=== PATIENT | female | born 1945 | race Caucasian/White ===

== ENCOUNTER 2017-03-24 09:14 | Observation (INO) | payer MEDICARE, SELFPAY ==
[2017-03-24] VITALS (9 sets, daily range): BP systolic 132–171; BP diastolic 48–85; PULSE 64–80; RESP 16–20; TEMP 36.3–36.9; O2SAT 96–100; BMI 30.9; BMI 31.2
--- NOTE | 2017-03-24 09:33 | RAD_ITS ---
STUDY: X-RAY - LUMBAR SPINE REASON FOR EXAM: Female, 71 years old. Increasing back and right leg pain TECHNIQUE: 4 view(s) of the lumbar spine were obtained. COMPARISON: None FINDINGS: Normal lumbar lordosis. There is no substantial scoliosis. There is a normal alignment of the vertebrae. There is multilevel endplate spondylosis of the lumbar vertebrae. There is multi-level degenerative disc disease with multi-level disc space narrowing. Extensive posterior fusion from the level of L3-S1 with significant facet degenerative change. No evidence of hardware failure or loosening. The soft tissue structures are unremarkable. RAD/Lumbar Spine 2 or 3 Views IMPRESSION: Extensive degenerative changes with postsurgical changes Electronically Signed: Javier Cordero DO at 11:34 EST Tel , Service support ,
--- NOTE | 2017-03-24 09:33 | RAD_ITS ---
STUDY: X-RAY - RIGHT FEMUR REASON FOR STUDY: Female, 71 years old. Right leg pain after fall TECHNIQUE: Radiological exam, femur, minimum 2 views COMPARISON: None. FINDINGS: Status post right hip arthroplasty without evidence of hardware failure or loosening. Right knee arthroplasty as well. No acute fracture or dislocation. No significant soft tissue swelling RAD/Femur Min 2 Views IMPRESSION: No acute findings Electronically Signed: Javier Cordero DO at 11:36 EST Tel , Service support ,
[2017-03-24] MEDS: HYDROmorphone 1 MG/ML Syringe IM (09:51)
[2017-03-24] MEDS: Ondansetron ODT 4 MG Tablet PO (09:51)
--- NOTE | 2017-03-24 10:17 | ED.VISSUMM ---
- ER Visit Summary Date of Service: 03/24/17 Chief Complaint: Back and right leg pain History of Present Illness: The patient is a [address] Daigle, Dr. Queen, and Dr. Lerma. She reports that she fell approximately 3 weeks ago. Since that time she has had low back and right thigh pain. She reports that the pain became much worse 2 days ago and she is essentially unable to walk at this time. She describes it as a burning pain in her leg that is 10 out of 10 severity. Is worsened by walking or standing. She is taking Percocet and ice without relief. Patient reports that her low back pain is 8 out of 10 severity. It radiates down the front of her right leg to mid thigh. She denies any numbness, tingling, weakness. No problems with her bowels or her bladder. No groin numbness. Patient does have a history of bilateral total knee arthroplasty, bilateral total hip arthroplasty, and a lumbar fusion in 2014 at [facility]. She reports that she had been getting injections in her back by Dr. Lerma and saw the nurse practitioner yesterday who told her that they are waiting on insurance to improve more injections. Physical Examination: Vitals: Stable. Afebrile. General: Well-nourished and well-developed. Head: Normocephalic atraumatic. Neck: Supple, no lymphadenopathy. No JVD. Nontender. Cardiovascular: Regular rate and rhythm. No murmurs. Respiratory: No respiratory distress. Clear to auscultation bilaterally. Abdominal: Soft, nontender, nondistended, normal bowel sounds. No guarding, rebound, or peritoneal signs. Back: Mild tenderness palpation is diffuse over the lumbar spine. This is in the paraspinous muscular and the vertebrae. She has a negative straight leg raise bilaterally. She has 5 out of 5 dorsiflexion, plantarflexion, extensor hallucis longus bilaterally. Normal sensation light touch throughout. Extremities: Moderate tenderness palpation over the midshaft of her right thigh. She has a 2+ dorsalis pedis pulse. Skin: Normal color, no rash. Neurologic: Alert and oriented ?3. Cranial nerves II through XII are intact. Normal strength and sensation. Psych: Normal affect. Test Results: Right femur x-ray shows no acute disease and the hardware is intact both of her hip and knee. LS spine x-ray shows is extensive degenerative changes with postsurgical changes and no acute disease. Emergency Department Course and Treatment: Patient was given a dose of Dilaudid IM and Zofran p.o. An OARRS report was obtained which show she is only had 2 prescriptions for opiates in the past year and those have both been associated with this injury. Patient is not even able to sit up in bed let alone ambulate. Treatment Plan: I do not think that it is safe for the patient to go home at this time. She is not able to ambulate. She was discussed with Dr. Tiwari and will be admitted for further evaluation and treatment. Disposition: Admitted in improved condition. Impression: 1. Low back pain, actable. 2. Right thigh pain. 3. Inability to ambulate. This note was generated with [employer] dictation software. It may contain incorrect words, spelling, and punctuation that were not noted in review of the chart prior to signing ED Disposition - Plan for ED Patient: Chief Complaint: Lower Extremity Injury
--- NOTE | 2017-03-24 10:20 | ED.DCSUM_ITS ---
- ER Visit Summary Date of Service: 03/24/17 Chief Complaint: Back and right leg pain History of Present Illness: The patient is a [address] Daigle, Dr. Queen, and Dr. Lerma. She reports that she fell approximately 3 weeks ago. Since that time she has had low back and right thigh pain. She reports that the pain became much worse 2 days ago and she is essentially unable to walk at this time. She describes it as a burning pain in her leg that is 10 out of 10 severity. Is worsened by walking or standing. She is taking Percocet and ice without relief. Patient reports that her low back pain is 8 out of 10 severity. It radiates down the front of her right leg to mid thigh. She denies any numbness, tingling , weakness. No problems with her bowels or her bladder. No groin numbness. Patient does have a history of bilateral total knee arthroplasty, bilateral total hip arthroplasty, and a lumbar fusion in 2014 at [facility]. She reports that she had been getting injections in her back by Dr. Lerma and saw the nurse practitioner yesterday who told her that they are waiting on insurance to improve more injections. Physical Examination: Vitals: Stable. Afebrile. General: Well-nourished and well-developed. Head: Normocephalic atraumatic. Neck: Supple, no lymphadenopathy. No JVD. Nontender. Cardiovascular: Regular rate and rhythm. No murmurs. Respiratory: No respiratory distress. Clear to auscultation bilaterally. Abdominal: Soft, nontender, nondistended, normal bowel sounds. No guarding, rebound, or peritoneal signs. Back: Mild tenderness palpation is diffuse over the lumbar spine. This is in the paraspinous muscular and the vertebrae. She has a negative straight leg raise bilaterally. She has 5 out of 5 dorsiflexion, plantarflexion, extensor hallucis longus bilaterally. Normal sensation light touch throughout. Extremities: Moderate tenderness palpation over the midshaft of her right thigh. She has a 2+ dorsalis pedis pulse. Skin: Normal color, no rash. Neurologic: Alert and oriented ?3. Cranial nerves II through XII are intact. Normal strength and sensation. Psych: Normal affect. Test Results: Right femur x-ray shows no acute disease and the hardware is intact both of her hip and knee. LS spine x-ray shows is extensive degenerative changes with postsurgical changes and no acute disease. Emergency Department Course and Treatment: Patient was given a dose of Dilaudid IM and Zofran p.o. An OARRS report was obtained which show she is only had 2 prescriptions for opiates in the past year and those have both been associated with this injury. Patient is not even able to sit up in bed let alone ambulate. Treatment Plan: I do not think that it is safe for the patient to go home at this time. She is not able to ambulate. She was discussed with Dr. Tiwari and will be admitted for further evaluation and treatment. Disposition: Admitted in improved condition. Impression: 1. Low back pain, actable. 2. Right thigh pain. 3. Inability to ambulate. This note was generated with tracx dictation software. It may contain incorrect words, spelling, and punctuation that were not noted in review of the chart prior to signing ED Disposition - Plan for ED Patient: Chief Complaint: Lower Extremity Injury
--- NOTE | 2017-03-24 11:54 | ED.RN ---
pt states pain is again increasing. states a burning sensation
--- NOTE | 2017-03-24 12:12 | PCM.HP.STD ---
Problem List (1) COPD (chronic obstructive pulmonary disease) Status: Chronic Qualifiers: COPD type: unspecified COPD Qualified Code(s): J44.9 - Chronic obstructive pulmonary disease, unspecified (2) HTN (hypertension) Status: Chronic Qualifiers: Hypertension type: essential hypertension Qualified Code(s): I10 - Essential (primary) hypertension (3) Asthma Status: Chronic Qualifiers: Asthma severity: unspecified severity Asthma persistence: unspecified Asthma complication type: uncomplicated Qualified Code(s): J45.909 - Unspecified asthma, uncomplicated (4) Chronic back pain Status: Chronic Qualifiers: Back pain location: back pain in unspecified location Back pain laterality: unspecified Qualified Code(s): M54.9 - Dorsalgia, unspecified; G89.29 - Other chronic pain (5) Acute back pain Status: Acute Qualifiers: Back pain location: back pain in unspecified location Back pain laterality: unspecified Qualified Code(s): M54.9 - Dorsalgia, unspecified History of Present Illness Date of Admission: 03/24/17 Chief Complaint: Intractable back pain The patient is a 71 y/o F w/ PMHx: HTN, Asthma/COPD, Obesity, OA, Chronic back pain s/p lumbar fusion who presents to the [facility] ED on 03/24/17 with history of ongoing intractable back pain whic started ~ 3 weeks prior at which point she had fallen with onset lumbar pain increased above baseline with ongoing discomfort to the anterior thigh, right hip and groin region. The pain continued and eventually she noted inability to ambulate. She was evaluated per her pain management physician with attempts to obtain prior authorization for injection; however, the discomfort continued and was intractable prompting eventual ED presentation. In the ED work-up included unremarkable plain film femur, lumbar plain film with extensive degenerative changes with postsurgical changes. In the ED patient administered morphine, dilaudid and zofran. Past Medical History Past Medical History (Chronic Problems): Chronic Problems COPD (chronic obstructive pulmonary disease) (Chronic) HTN (hypertension) (Chronic) Asthma (Chronic) Chronic back pain (Chronic) Allergies No Known Allergies Allergy (Verified 01/14/16 14:26) Home Medications: Ambulatory Orders Medication Instructions Recorded Fluticasone/Salmeterol [Advair 1 puff INHALATION DAILY 09/28/15 250/50 Mcg Diskus] Lisinopril/Hydrochlorothiazide 1 tablet PO DAILY 01/14/16 [Zestoretic 10/12.5 Tablet] Acetaminophen [Tylenol Tablet] 650 mg PO Q6 PRN 03/24/17 Oxycodone HCl/Acetaminophen 1 tablet PO Q4H PRN PRN 03/24/17 [Percocet 5/325] Surgical History: - - Hysterectomy, right knee arthroscopic surgery, left shoulder rotator cuff tear intervention, hernia repair, left total knee replacement, left knee arthroscopic surgery, right knee replacement, back surgery, left total hip arthroplasty, right total hip arthroplasty, appendectomy. 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 Denies: Chills, Fever, Weight Change HEENT: Denies: Head Aches, Sinus Congestion, Sinus Drainage Cardiovascular: Denies: Chest Pain, Palpitations Respiratory: Denies: Cough, Shortness of breath at rest, Sputum production Gastrointestinal: Denies: Abdominal Pain, Nausea, Vomiting Genitourinary: Denies: Dysuria Musculoskeletal: Reports: Back Pain, Leg Pain, Muscle pain. Denies: Joint Pain, Joint Tenderness Skin: Denies: Rash, Wounds Neurological: Denies: Numbness, Tingling, Focal weakness Psychiatric: Denies: Anxiety, Depression, Homicidal Ideations, Suicidal Ideations Hematologic/ Lymphatic: Denies: Easy Bruising, Easy Bleeding VTE Information - Inpt Only VTE Present on Admission: No VTE Mechan Device Prophylaxis: SCD's VTE Pharm Prophylaxis ordered?: Yes Patient Problems: Active and Suspected Problems Acute back pain (Acute) Subjective: Laying in the bed, uncomfortable appearing, worse with any attempted RLE movement. Objective: Physical Examination: General: awake, alert, oriented x 3 and cooperative, seated upright in bed, uncomfortable appearing, worse with any attempted movement of the right lower extremity. Skin: normal color, turgor, no icterus, cyanosis. HEENT: AT/NC, EOMI, PERRLA, mildly dry MM, no carotid bruits or JVD noted. Lungs: CTA bilaterally, moderate effort, moderate decrease BL bases, no rales, ronchi or wheezing. Heart: Regular rate and rhythm; no gallop, rub audible. Abdomen: soft, obese, NTTP, ND, normal BS, no HSM. Extremities: no cyanosis, clubbing, discomfort w/ RLE attempted movement including flexion, extension, pain w/ palpation. Neurological: patient awake, alert, oriented x 3; cognitive function intact; pupils equally reactive to light and accomodation; cranial nerves II-XII grossly normal, moving all 4 extremities but severely limited RLE secondary to severity of pain elicited, strength accordingly severely globally decreased, notes burning sensation R upper extremity. Psychiatric: affect appears fatigued, no acute evidence of depressive or anxiety feelings. - Physical Exam Vital Signs Temp Pulse Resp BP Pulse Ox 98.2 F 68 18 136/58 H 99 03/24/17 09:14 03/24/17 11:54 03/24/17 11:54 03/24/17 11:54 03/24/17 11:54 Oxygen Delivery Method Room Air Weight: 175 lb Body Mass Index (BMI) 30.9 Assessment/Plan Active and Suspected Problems Acute back pain (Acute) The patient is a 71 y/o F w/ PMHx: HTN, Asthma/COPD, Obesity, OA, Chronic back pain s/p lumbar fusion who presents to the [facility] ED on 03/24/17 with history of ongoing intractable back pain whic started ~ 3 weeks prior at which point she had fallen with onset lumbar pain increased above baseline with ongoing discomfort to the anterior thigh, right hip and groin region. (1) Acute Intractable Lumbar Back Pain w/ Radiculopathy: Plain films in the ED w/ degenerative findings only. Will admit to MS, maintain on fall precautions, frequent positioning, po/IV pain regimen, IV lower dose scheduled toradol, low dose flexeril, prednisone burst therapy, low dose gabapentin, anti-emetics, bowel regimen. Will consult PT and OT for evaluation. Will consult her pain management physician for patient evaluation and possible injection. If no improvement with noted interventions may consider consultation with Orthopedic surgery to assure no need for further more aggressive imaging. (2) Chronic COPD/Asthma: No tobacco use history. Maintain on ATC duonebs, PRN albuterol, HOB, IS parameters. (3) Hypertension: Continue home regimen including lisinopril, hydrochlorothiazide, PRN hydralazine. (4) Obesity: Weight loss and lifestyle changes encouraged. (5) Chronic back pain s/p lumbar fusion: Follows outpatient with pain management, Dr. Lerma for routine injections. (6) DVT prophylaxis: SCDs, lovenox with AM hold for possible infection ability. Code Visit OBSV E&M: [id number] Initial observation care L3
--- NOTE | 2017-03-24 12:20 | NURSING ---
DR ROSE FOR DR BUCK
--- NOTE | 2017-03-24 12:36 | HP.PCM_ITS ---
Problem List (1) COPD (chronic obstructive pulmonary disease) Status: Chronic Qualifiers: COPD type: unspecified COPD Qualified Code(s): J44.9 - Chronic obstructive pulmonary disease, unspecified (2) HTN (hypertension) Status: Chronic Qualifiers: Hypertension type: essential hypertension Qualified Code(s): I10 - Essential (primary) hypertension (3) Asthma Status: Chronic Qualifiers: Asthma severity: unspecified severity Asthma persistence: unspecified Asthma complication type: uncomplicated Qualified Code(s): J45.909 - Unspecified asthma, uncomplicated (4) Chronic back pain Status: Chronic Qualifiers: Back pain location: back pain in unspecified location Back pain laterality : unspecified Qualified Code(s): M54.9 - Dorsalgia, unspecified; G89.29 - Other chronic pain (5) Acute back pain Status: Acute Qualifiers: Back pain location: back pain in unspecified location Back pain laterality : unspecified Qualified Code(s): M54.9 - Dorsalgia, unspecified History of Present Illness Date of Admission: 03/24/17 Chief Complaint: Intractable back pain The patient is a 71 y/o F w/ PMHx: HTN, Asthma/COPD, Obesity, OA, Chronic back pain s/p lumbar fusion who presents to the [facility] ED on 03/24/17 with history of ongoing intractable back pain whic started ~ 3 weeks prior at which point she had fallen with onset lumbar pain increased above baseline with ongoing discomfort to the anterior thigh, right hip and groin region. The pain continued and eventually she noted inability to ambulate. She was evaluated per her pain management physician with attempts to obtain prior authorization for injection; however, the discomfort continued and was intractable prompting eventual ED presentation. In the ED work-up included unremarkable plain film femur, lumbar plain film with extensive degenerative changes with postsurgical changes. In the ED patient administered morphine, dilaudid and zofran. Past Medical History Past Medical History (Chronic Problems): Chronic Problems COPD (chronic obstructive pulmonary disease) (Chronic) HTN (hypertension) (Chronic) Asthma (Chronic) Chronic back pain (Chronic) Allergies No Known Allergies Allergy (Verified 01/14/16 14:26) Home Medications: Ambulatory Orders Medication Instructions Recorded Fluticasone/Salmeterol [Advair 1 puff INHALATION DAILY 09/28/15 250/50 Mcg Diskus] Lisinopril/Hydrochlorothiazide 1 tablet PO DAILY 01/14/16 [Zestoretic 10/12.5 Tablet] Acetaminophen [Tylenol Tablet] 650 mg PO Q6 PRN 03/24/17 Oxycodone HCl/Acetaminophen 1 tablet PO Q4H PRN PRN 03/24/17 [Percocet 5/325] Surgical History: - - Hysterectomy, right knee arthroscopic surgery, left shoulder rotator cuff tear intervention, hernia repair, left total knee replacement, left knee arthroscopic surgery, right knee replacement, back surgery, left total hip arthroplasty, right total hip arthroplasty, appendectomy. 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 Denies: Chills, Fever, Weight Change HEENT: Denies: Head Aches, Sinus Congestion, Sinus Drainage Cardiovascular: Denies: Chest Pain, Palpitations Respiratory: Denies: Cough, Shortness of breath at rest, Sputum production Gastrointestinal: Denies: Abdominal Pain, Nausea, Vomiting Genitourinary: Denies: Dysuria Musculoskeletal: Reports: Back Pain, Leg Pain, Muscle pain. Denies: Joint Pain , Joint Tenderness Skin: Denies: Rash, Wounds Neurological: Denies: Numbness, Tingling, Focal weakness Psychiatric: Denies: Anxiety, Depression, Homicidal Ideations, Suicidal Ideations Hematologic/ Lymphatic: Denies: Easy Bruising, Easy Bleeding VTE Information - Inpt Only VTE Present on Admission: No VTE Mechan Device Prophylaxis: SCD's VTE Pharm Prophylaxis ordered?: Yes Patient Problems: Active and Suspected Problems Acute back pain (Acute) Subjective: Laying in the bed, uncomfortable appearing, worse with any attempted RLE movement. Objective: Physical Examination: General: awake, alert, oriented x 3 and cooperative, seated upright in bed, uncomfortable appearing, worse with any attempted movement of the right lower extremity. Skin: normal color, turgor, no icterus, cyanosis. HEENT: AT/NC, EOMI, PERRLA, mildly dry MM, no carotid bruits or JVD noted. Lungs: CTA bilaterally, moderate effort, moderate decrease BL bases, no rales, ronchi or wheezing. Heart: Regular rate and rhythm; no gallop, rub audible. Abdomen: soft, obese, NTTP, ND, normal BS, no HSM. Extremities: no cyanosis, clubbing, discomfort w/ RLE attempted movement including flexion, extension, pain w/ palpation. Neurological: patient awake, alert, oriented x 3; cognitive function intact; pupils equally reactive to light and accomodation; cranial nerves II-XII grossly normal, moving all 4 extremities but severely limited RLE secondary to severity of pain elicited, strength accordingly severely globally decreased, notes burning sensation R upper extremity. Psychiatric: affect appears fatigued, no acute evidence of depressive or anxiety feelings. - Physical Exam Vital Signs Temp Pulse Resp BP Pulse Ox 98.2 F 68 18 136/58 H 99 03/24/17 09:14 03/24/17 11:54 03/24/17 11:54 03/24/17 11:54 03/24/17 11:54 Oxygen Delivery Method Room Air Weight: 175 lb Body Mass Index (BMI) 30.9 Assessment/Plan Active and Suspected Problems Acute back pain (Acute) The patient is a 71 y/o F w/ PMHx: HTN, Asthma/COPD, Obesity, OA, Chronic back pain s/p lumbar fusion who presents to the [facility] ED on 03/24/17 with history of ongoing intractable back pain whic started ~ 3 weeks prior at which point she had fallen with onset lumbar pain increased above baseline with ongoing discomfort to the anterior thigh, right hip and groin region. (1) Acute Intractable Lumbar Back Pain w/ Radiculopathy: Plain films in the ED w / degenerative findings only. Will admit to MS, maintain on fall precautions, frequent positioning, po/IV pain regimen, IV lower dose scheduled toradol, low dose flexeril, prednisone burst therapy, low dose gabapentin, anti-emetics, bowel regimen. Will consult PT and OT for evaluation. Will consult her pain management physician for patient evaluation and possible injection. If no improvement with noted interventions may consider consultation with Orthopedic surgery to assure no need for further more aggressive imaging. (2) Chronic COPD/Asthma: No tobacco use history. Maintain on ATC duonebs, PRN albuterol, HOB, IS parameters. (3) Hypertension: Continue home regimen including lisinopril, hydrochlorothiazide, PRN hydralazine. (4) Obesity: Weight loss and lifestyle changes encouraged. (5) Chronic back pain s/p lumbar fusion: Follows outpatient with pain management , Dr. Lerma for routine injections. (6) DVT prophylaxis: SCDs, lovenox with AM hold for possible infection ability. Code Visit OBSV E&M: [id number] Initial observation care L3
--- NOTE | 2017-03-24 12:43 | NURSING ---
317 obs intractable backpain white
[2017-03-24 14:57] LABS: Absolute Lymphocyte Count 1.23 X10^3/ul (0.83-4.51); Absolute Neutrophil Count 6.5 X10^3/uL (2.0-7.7); Basophil# 0.03 X10^3/uL; Basophil% 0.3 % (0-1); Eosinophil# 0.13 X10^3/uL; Eosinophils% 1.5 % (0-5); Hematocrit 37.9 % (37-47); Hemoglobin 12.6 g/dl (12.0-15.0); Lymphocyte # 1.23 X10^3/ul (4.0); Lymphocyte % 13.9 % (19-41); Mean Corp Hgb Conc 33.2 g/gl (32-36); Mean Corpuscular Hgb 28.9 pg (27.0-32.0); Mean Corpuscular Volume 86.9 fL (81-99); Mean Platelet Vol. 9.2 fl (6.2-12.0); Monocyte# 0.97 X10^3/uL; Monocyte% 10.9 % (0-10); Neutrophil # 6.46 X10^3/uL (2.7-7.7); Neutrophil % 72.9 % (47-70); Platelet Count 251 K/mm3 (150-450); RBC Distribution Width CV 14.8 % (11.6-14.6); RBC Distribution Width SD 46.5 fl (35.1-43.9); Red Blood Count 4.36 M/mm3 (4.2-5.4); White Blood Count 8.9 K/mm3 (4.4-11.0)
[2017-03-24 14:58] LABS: POSITIVE COUNT NO; POSITIVE DIFFERENTIAL NO; POSITIVE MORPHOLOGY NO
[2017-03-24 15:09] LABS: AST(SGOT) 33 U/L (15-37); Alanine Aminotransfer ALT/SGPT 35 U/L (13-56); Albumin, Serum 3.4 g/dL (3.2-5.0); Alkaline Phosphatase 69 U/L (45-117); Anion Gap 6 (5-15); BUN 26 mg/dL (7-18); BUN/Creat Ratio 29.1 RATIO (10-20); Calcium,Total 8.6 mg/dL (8.5-10.1); Chloride 105 mmol/L (98-107); Creatinine, Serum 0.89 mg/dL (0.55-1.02); EST Glomerular Filtration Rate 66 mL/min (>60); Est Glom Filt Rate - Afr Amer 80 mL/min (>60); Estimated Creatinine Clearance 48.65 ml/min; Globulin 3.4 g/dL (2.2-4.2); Glucose 108 mg/dL (70-110); Magnesium 2.5 mg/dL (1.6-2.6); Potassium 4.6 mmol/L (3.5-5.1); Protein, Total 6.8 g/dL (6.4-8.2); Sodium Level 140 mmol/L (136-145)
[2017-03-24] MEDS: 0.9% Normal Saline 1,000 ML 100 ML IV (16:04)
[2017-03-24] MEDS: Ketorolac 15 MG/ML Vial IV ×2 (16:04→22:12)
[2017-03-24] MEDS: Gabapentin 100 MG Capsule PO (16:06)
[2017-03-24] MEDS: HYDROmorphone 1 MG/ML Syringe 0.5 MG IV (16:35)
[2017-03-24] MEDS: Enoxaparin 40 MG/0.4 ML Syringe SC (16:40)
[2017-03-24] MEDS: oxyCODONE 5 MG Tablet PO (18:39)
[2017-03-24] MEDS: Ipratropium/Albuterol Sulfate 3 ML AMPUL.NEB INHALATION (18:56)
[2017-03-24] MEDS: Famotidine 20 MG Tablet PO (22:12)
[2017-03-24] MEDS: Senna/Docusate Sodium 1 Tablet 2 TABLET PO (22:12)
[2017-03-25] VITALS (9 sets, daily range): BP systolic 108–170; BP diastolic 52–76; PULSE 61–87; RESP 15–18; TEMP 36.4–36.8; O2SAT 96–98
[2017-03-25] MEDS: 0.9% Normal Saline 1,000 ML 100 ML IV ×3 (02:13→22:44)
[2017-03-25] MEDS: Ketorolac 15 MG/ML Vial IV ×3 (05:16→22:44)
[2017-03-25] MEDS: Ipratropium/Albuterol Sulfate 3 ML AMPUL.NEB INHALATION ×3 (06:52→19:18)
--- NOTE | 2017-03-25 08:22 | PCM.PN.HOSP ---
Patient Problems: Active and Suspected Problems Acute back pain (Acute) Subjective: Patient with no acute events overnight per self and per nursing report. She does state that pain has mildly improved with some ability for movement but continued ongoing discomfort especially in the groin region as well as the anterior thigh worse with any movement attempts or weight placement. Given improvement DVT ultrasound was performed of the right extremity this morning and preliminary read was negative for acute DVT. Dr. Lerma office contacted and he was noted to be unavailable therefore Dr. Mason has been requested, and awaiting availability. Patient denies fevers, chills, nausea, emesis, abdominal pain, chest pain or dyspnea. Objective: Physical Examination: General: awake, alert, oriented x 3 and cooperative, seated upright in bed, more comfortable appearing, able to move better but still pain RUE. Skin: normal color, turgor, no icterus, cyanosis. HEENT: AT/NC, EOMI, PERRLA, MMM. Lungs: CTA bilaterally, moderate effort, moderate decrease BL bases, no rales, ronchi or wheezing. Heart: Regular rate and rhythm; no gallop, rub audible. Abdomen: soft, obese, NTTP, ND, normal BS. Extremities: no cyanosis, clubbing, less discomfort w/ palpation, still discomfort w/ RLE attempted movement including flexion, extension, increased pain w/ palpation. Neurological: patient awake, alert, oriented x 3; cognitive function intact; pupils equally reactive to light and accomodation; cranial nerves II-XII grossly normal, moving all 4 extremities but severely limited RLE secondary to severity of pain elicited, strength accordingly severely globally decreased, although improved from day prior. Psychiatric: affect appears normal, no acute evidence of depressive or anxiety feelings. Vitals/I&O's: Vital Signs Temp Pulse Resp BP Pulse Ox 97.5 F L 78 18 167/76 H 98 03/25/17 08:04 03/25/17 08:04 03/25/17 08:04 03/25/17 08:04 03/25/17 08:04 Oxygen Delivery Method Room Air Weight: 176 lb 5.917 oz Body Mass Index (BMI) 31.2 Intake and Output for Last 24 Hours 03/23/17 03/24/17 03/25/17 23:59 23:59 23:59 Intake Total 1046 / 1046 1205 / 1205 Output Total 100 / 100 300 / 300 Balance 946 / 946 905 / 905 Laboratory Results 03/24/17 14:40: WBC 8.9, RBC 4.36, Hgb 12.6, Hct 37.9, MCV 86.9, MCH 28.9, MCHC 33.2, RDW 14.8 H, RDW Differential 46.5 H, Plt Count 251, MPV 9.2, Immature Gran % (Auto) 0.500, Neut % (Auto) 72.9 H, Lymph % (Auto) 13.9 L, [place] % (Auto) 10.9 H, Eos % (Auto) 1.5, Baso % (Auto) 0.3, Absolute Neuts (auto) 6.5, Absolute Lymphs (auto) 1.23, Total Counted Not Reportable 03/24/17 14:40: Sodium 140, Potassium 4.6, Chloride 105, Carbon Dioxide 29.0, Anion Gap 6, BUN 26 H, Creatinine 0.89, Estim Creat Clear Calc 48.65, Est GFR (MDRD) Af Amer 80, Est GFR (MDRD) Non-Af 66, BUN/Creatinine Ratio 29.1 H, Glucose 108, Calcium 8.6, Magnesium 2.5, Total Bilirubin 0.50, AST 33, ALT 35, Alkaline Phosphatase 69, Total Protein 6.8, Albumin 3.4, Globulin 3.4, Albumin/Globulin Ratio 1.0 Current Medications Al Hydroxide/Mg Hydroxide (Mylanta Ii) 30 ml PO Q6H PRN PRN PRN Reason: Gastric burning Albuterol Sulfate (Ventolin Aerosols) 2.5 mg INHALATION Q2H PRN PRN PRN Reason: dyspnea, wheezing Albuterol/Ipratropium (Duoneb) 3 ml INHALATION Q6HWA.RT [facility] Last Admin: 03/25/17 06:52 Dose: 3 ml Aspirin (Aspirin, Baby) 81 mg PO DAILY@0800 [facility] Cyclobenzaprine HCl (Flexeril) 5 mg PO BID [facility] Last Admin: 03/24/17 22:12 Dose: 5 mg Famotidine (Pepcid) 20 mg PO BID [facility] Last Admin: 03/24/17 22:12 Dose: 20 mg Gabapentin (Neurontin) 100 mg PO TIDCM [facility] Last Admin: 03/24/17 16:06 Dose: 100 mg Hydrochlorothiazide (Hydrochlorothiazide) 12.5 mg PO DAILY [facility] Hydromorphone HCl (Dilaudid) 0.5 mg IV Q4H PRN PRN PRN Reason: SEVERE PAIN (6-10/10) Last Admin: 03/24/17 16:35 Dose: 0.5 mg Sodium Chloride () 1,000 mls @ 100 mls/hr IV .Q10H [facility] Last Admin: 03/25/17 02:13 Dose: 100 mls/hr Ketorolac Tromethamine (Toradol) 15 mg IV Q8 [facility] Stop: 03/29/17 14:23 Last Admin: 03/25/17 05:16 Dose: 15 mg Lisinopril (Zestril) 10 mg PO DAILY [facility] Magnesium Hydroxide (Milk Of Magnesia) 30 ml PO DAILY PRN PRN PRN Reason: Constipation Ondansetron HCl (Zofran) 4 mg IV Q8H PRN PRN PRN Reason: NAUSEA Oxycodone HCl (Oxyir) 5 mg PO Q4H PRN PRN PRN Reason: SEVERE PAIN (6-10/10) Last Admin: 03/24/17 18:39 Dose: 5 mg Prednisone (Prednisone) 40 mg PO DAILY@0800 [facility] Last Admin: 03/24/17 16:05 Dose: 40 mg Senna/Docusate Sodium (Senokot-S, Radha-Colace) 2 tablet PO BID [facility] Last Admin: 03/24/17 22:12 Dose: 2 tablet Sodium Chloride () 5 - 30 ml IV UD PRN PRN Reason: SALINE FLUSH Assessment/Plan Active and Suspected Problems Acute back pain (Acute) The patient is a 71 y/o F w/ PMHx: HTN, Asthma/COPD, Obesity, OA, Chronic back pain s/p lumbar fusion who presents to the [facility] ED on 03/24/17 with history of ongoing intractable back pain whic started ~ 3 weeks prior at which point she had fallen with onset lumbar pain increased above baseline with ongoing discomfort to the anterior thigh, right hip and groin region. (1) Acute Intractable Lumbar Back Pain w/ Radiculopathy: Plain films in the ED w/ degenerative findings only. Admitted to [place], maintain on fall precautions, frequent positioning, po/IV pain regimen, IV lower dose scheduled toradol, low dose flexeril, prednisone burst therapy, low dose gabapentin which will be increased, anti-emetics, bowel regimen. Dr. Lerma/Dr. Brown, Pain management consulted and pending for possible injection. Given mild improvement, DVT US RLE obtained and preliminary negative for DVT. Given mild improvement, unclear if Dr. Brown will be able to evaluation will also request input from Dr. Sapp who is on for Dr. Queen group whom she has followed with for several of her interventions. PT, OT consulted w/ evaluation being initiated upon evaluation this AM. (2) Chronic COPD/Asthma: No tobacco use history. Maintain on ATC duonebs, PRN albuterol, HOB, IS parameters. (3) Hypertension: Continue home regimen including lisinopril, hydrochlorothiazide, PRN hydralazine. (4) Obesity: Weight loss and lifestyle changes encouraged. (5) Chronic back pain s/p lumbar fusion: Follows outpatient with pain management, Dr. Lerma for routine injections. (6) DVT prophylaxis: SCDs, lovenox on hold pending Dr. Lerma/Dr. Brown assessment today. Code Visit OBSV E&M: 38173 Subsequent observation care L2
--- NOTE | 2017-03-25 08:55 | VDLE_ITS ---
Reason For Study: LEG SWELLING RIGHT LEFT GSV is normal. GSV is normal. CFV is compressible, spontaneous, phasic, CFV is compressible, spontaneous, phasic, competent and demonstrates normal competent, and demonstrates normal augmentation. augmentation. FV is compressible, spontaneous, phasic, FV is compressible, spontaneous, phasic, competent and demonstrates normal competent and demonstrates normal augmentation. augmentation. POP V is compressible, spontaneous, phasic, POP V is compressible, spontaneous, phasic, competent and demonstrates normal competent and demonstrates normal augmentation. augmentation. T/P Trunk is compressible. T/P Trunk is compressible. PTV is compressible. PTV is compressible. RT PerV is compressible. LT PerV is compressible. Procedure Exam performed portable in patient room. A preliminary report was called and/or faxed to [facility] nurse. Interpretation Summary No evidence for acute deep venous thrombosis bilateral lower extremities with patent and compressible bilateral great saphenous veins. Ordering Physician: Carly Tiwari Referring Physician: Ellie Daigle M.D. Performed By: Aurea Cartagena RVT
[2017-03-25] MEDS: Gabapentin 100 MG Capsule PO (08:56)
[2017-03-25] MEDS: Aspirin 81 MG TAB.CHEW PO (08:56)
[2017-03-25] MEDS: Famotidine 20 MG Tablet PO ×2 (09:20→22:45)
[2017-03-25] MEDS: HYDROCHLOROTHIAZIDE 12.5 MG CAPSULE PO (09:20)
[2017-03-25] MEDS: oxyCODONE 5 MG Tablet PO ×2 (09:20→15:59)
[2017-03-25] MEDS: Senna/Docusate Sodium 1 Tablet 2 TABLET PO (09:22)
[2017-03-25] MEDS: Lisinopril 10 MG Tablet PO (09:22)
[2017-03-25] MEDS: HYDROmorphone 1 MG/ML Syringe 0.5 MG IV ×2 (10:38→18:37)
[2017-03-25] MEDS: Gabapentin 100 MG Capsule 200 MG PO ×2 (11:59→16:54)
--- NOTE | 2017-03-25 14:37 | CT_ITS ---
STUDY: CT PELVIS WITHOUT CONTRAST REASON FOR EXAM: Female, 71 years old. Pain in the right groin following a recent fall. RADIATION DOSAGE (If Supplied By Facility): CTDIvol = ( 22.86 ) mGy, DLP = ( 976.37 ) mGycm TECHNIQUE: Transaxial imaging of the pelvis was performed with oral contrast, and without intravenous administration of contrast material. Multiplanar coronal and sagittal images were reformatted. Individualized dose optimization techniques were used for this CT. COMPARISON: None. FINDINGS: The patient is status post bilateral total hip replacement. There is good alignment. No evidence of acute fracture or dislocation. The patient is status post fusion lower lumbar spine. Degenerative changes of the sacroiliac joints bilaterally. Prior appendectomy. CT/Pelvis without IV Contrast IMPRESSION: Status post bilateral total hip placement. No acute abnormality is seen. Electronically Signed: Jean Marie Fuentes MD at 15:48 EST Tel [phone], Service support ,
--- NOTE | 2017-03-25 14:45 | CONS.ORTHO ---
Problem List (1) Hip pain, right Status: Acute - Consult Date of Consult: 03/25/17 - Reason for Consult Consult requested by Dr. Carly Tiwari Consult 03/25/2017 Consult requested for right hip pain Impression Right hip pain status post fall History of right total hip arthroplasty Chronic low back pain, with multi-level lumbar fusion Radicular pain Plan 1. Continue all pain medications as prescribed 2. CAT scan of pelvis bilateral hips 3. Partial weightbearing right leg with walker 4. Physical therapy with range of motion 5. Continue with consult as requested by medicine for Dr. Brown 6. Dr. Sapp will follow after results of CT History This is a pleasant 71-year-old female who is well known to [facility]. This patient apparently sustained a fall 3 weeks ago, landing on her buttocks and right hip. Patient states she had mild discomfort after the fall, since the fall has had a continued progression of ongoing pain within her lower back right buttocks and groin region. This patient has been a long-standing patient of Dr. Lerma, and was seen in his office 3 days ago. Patient was told to rest continue taking her prescribed pain medications. Patient states on 03/24/2017 she was attempting to use her bathroom at home when she had severe incapacitating pain within her low back and right hip. Patient states this pain is made worse with walking or weightbearing, it is localized within the right groin region, with a severe aching sensation into her anterior right thigh, and knee. Patient did state the pain will radiate down to her foot and ankle when it becomes quite severe. Patient is denied any numbness or tingling of her lower extremities, any urinary or bowel incontinence. Patient states this is not similar to any pain she has felt with her prior radicular pain, or bilateral hip pain, prior to her bilateral hip arthroplasties. Patient states she has minimal pain with her lower back since the multilevel fusion of her lumbar spine performed in 2014. Patient states she had her bilateral knees performed the right in 2013, the left in 2011. She has had bilateral total hips the left in 2016 the right September 2015. I did review and discuss at length her pertinent past medical surgical familiar social history, and 10 review of systems. Exam Upon entering the room, I found the patient sitting comfortably in a recliner chair with both legs extended. Patient was alert oriented, cranial nerves II through XII are grossly intact, speaking in full sentences, with no obvious respiratory distress. Patient was moving all upper extremities without limitations or hesitation. The abdomen was soft nontender without masses equal femoral pulses. Patient has good range of motion of the left hip and knee without limitations well-healed incisions from previous total joint arthroplasty. The right hip was cool to touch nonerythematous there is no palpable masses or pulsating masses within the femoral or inguinal region of the right hip. Patient had a well-healed incisions of the right total hip right total knee with excellent range of motion of the right knee without pain. No calf tenderness. Sensation of lower extremities. Had increasing pain with straight leg against resistance on the right leg. Good muscle tone and strength. Imaging studies AP pelvis AP right and left hip show patient has well-seated acetabular cups and femoral stems the right acetabulum appears to be seated very nicely with no indication of loosening the femoral stem is seated nicely without indication of subsidence or toggling. Right total knee appears to be seated very nicely with no indication of loosening. Patient's AP right hip does appear to have degenerative changes of the greater troches. There is questionable translucency through the pubic rami. These images were discussed and reviewed with Dr. Sapp. Plan As otherwise discussed above. I have discussed my clinical findings and history with Dr. Sapp as well as reviewed with Dr. Carly Tiwari, at this time will proceed with a CT of the pelvis and hip. Total time spent 1 hour. With review of medical records, history and eval of patient, review of imaging studies, and medical decision making.
--- NOTE | 2017-03-25 16:01 | CASEMGMT ---
REJI SAMUELS reviewed [place] with patient. Patient voiced understanding and signed at this time. Original filed on chart, copy along with Medicare Inpatient vs Observation information packet provided. REJI SAMUELS discussed discharge plans with patient. Patient states that she would like to go home and would like [facility] for therapy. Patient stated that she believes she has had [facility] previously. Patient states she lives with her friend and has all her DME needs met. REJI SAMUELS will send referral to [facility] and remain available should discharge needs arise.
[2017-03-25] MEDS: 0.9% NaCl Peripheral Flush Adult/Peds IV (22:44)
[2017-03-26] VITALS (9 sets, daily range): BP systolic 141–172; BP diastolic 72–90; PULSE 72–94; RESP 16–18; TEMP 36.3–37.1; O2SAT 94–98
--- NOTE | 2017-03-26 05:00 | EKG12_ITS ---
Test Reason : AM Blood Pressure : / mmHG Vent. Rate : 065 BPM Atrial Rate : 065 BPM P-R Int : 184 ms QRS Dur : 110 ms QT Int : 374 ms P-R-T Axes : 024 026 012 degrees QTc Int : 388 ms Normal sinus rhythm Normal ECG Confirmed by EVAN RYAN, RAMIRO ([id number]), editor managing newspaper VARUN GRANT ([id number]) on 04/06/2017 2:14:10 PM Referred By: MILTON Confirmed By:RAMIRO GORDON MD
[2017-03-26] MEDS: Ketorolac 15 MG/ML Vial IV ×2 (05:37→13:50)
[2017-03-26] MEDS: 0.9% NaCl Peripheral Flush Adult/Peds IV (05:37)
[2017-03-26 05:43] LABS: Absolute Neutrophil Count 6.3 X10^3/uL (2.0-7.7); Basophil# 0.01 X10^3/uL; Basophil% 0.1 % (0-1); Eosinophils% 1.2 % (0-5); Hematocrit 30.8 % (37-47); Hemoglobin 10.2 g/dl (12.0-15.0); Lymphocyte % 16.5 % (19-41); Mean Corp Hgb Conc 33.1 g/gl (32-36); Mean Corpuscular Hgb 28.9 pg (27.0-32.0); Mean Corpuscular Volume 87.3 fL (81-99); Mean Platelet Vol. 9.4 fl (6.2-12.0); Monocyte# 0.72 X10^3/uL; Monocyte% 8.5 % (0-10); Neutrophil # 6.26 X10^3/uL (2.7-7.7); Neutrophil % 73.5 % (47-70); Platelet Count 189 K/mm3 (150-450); RBC Distribution Width CV 14.5 % (11.6-14.6); RBC Distribution Width SD 44.9 fl (35.1-43.9); Red Blood Count 3.53 M/mm3 (4.2-5.4); White Blood Count 8.5 K/mm3 (4.4-11.0)
[2017-03-26 05:52] LABS: POSITIVE COUNT NO; POSITIVE DIFFERENTIAL NO; POSITIVE MORPHOLOGY NO
[2017-03-26 06:04] LABS: Anion Gap 8 (5-15); BUN 31 mg/dL (7-18); BUN/Creat Ratio 38.6 RATIO (10-20); Calcium,Total 7.8 mg/dL (8.5-10.1); Chloride 109 mmol/L (98-107); EST Glomerular Filtration Rate 75 mL/min (>60); Est Glom Filt Rate - Afr Amer 91 mL/min (>60); Estimated Creatinine Clearance 54.13 ml/min; Glucose 98 mg/dL (70-110); Potassium 4.1 mmol/L (3.5-5.1); Sodium Level 140 mmol/L (136-145)
[2017-03-26] MEDS: Ipratropium/Albuterol Sulfate 3 ML AMPUL.NEB INHALATION (06:45)
--- NOTE | 2017-03-26 07:46 | PN.ORTHO_ITS ---
Patient Problems: Active and Suspected Problems Acute back pain (Acute) Hip pain, right (Acute) Subjective: Patient's pain is improved today. She states her pain level is 5 out of 10. She states that this is 100% improved since previous Objective: Patient remains neurovascularly intact. Passive range of motion of both hips is mildly uncomfortable. Logroll is negative. Pelvic rocking is negative. - Physical Exam General: Alert, Oriented x3 HEENT: Atraumatic Neurological: Cranial nerves II-XII grossly intact Vital Signs Temp Pulse Resp BP Pulse Ox 98.2 F 73 16 141/72 H 98 03/26/17 02:10 03/26/17 02:10 03/26/17 02:10 03/26/17 02:10 03/26/17 02:10 Oxygen Delivery Method Room Air Weight: 176 lb 5.917 oz Body Mass Index (BMI) 31.2 Intake and Output for Last 24 Hours 03/24/17 03/25/17 03/26/17 23:59 23:59 23:59 Intake Total 1046 / 1046 3240 / 3240 1509 / 1509 Output Total 100 / 100 850 / 850 150 / 150 Balance 946 / 946 2390 / 2390 1359 / 1359 Laboratory Tests Past 24 Hrs 03/26/17 03/26/17 05:20 05:20 WBC 8.5 RBC 3.53 L Hgb 10.2 L Hct 30.8 L MCV 87.3 MCH 28.9 MCHC 33.1 RDW 14.5 RDW Differential 44.9 H Plt Count 189 MPV 9.4 Immature Gran % (Auto) 0.200 Neut % (Auto) 73.5 H Lymph % (Auto) 16.[address] [place] % (Auto) 8.5 Eos % (Auto) 1.2 Baso % (Auto) 0.1 Absolute Neuts (auto) 6.3 Absolute Lymphs (auto) 1.40 Total Counted Not Reportable Sodium 140 Potassium 4.1 Chloride 109 H Carbon Dioxide 23.0 Anion Gap 8 BUN 31 H Creatinine 0.80 Estim Creat Clear Calc 54.13 Est GFR (MDRD) Af Amer 91 Est GFR (MDRD) Non-Af 75 BUN/Creatinine Ratio 38.6 H Glucose 98 Calcium 7.8 L Assessment/Plan Active and Suspected Problems Acute back pain (Acute) Hip pain, right (Acute) I personally reviewed patient's CT scan. This is negative for acute abnormality. I patient is stable from an orthopedic standpoint and do not feel any further intervention will be necessary in terms of surgery. Agree with the plan from pain management standpoint to proceed with a caudal injection. Patient can follow-up with her typical orthopedic surgeon as previously scheduled. Patient should also follow-up with pain management
[2017-03-26] MEDS: Lisinopril 10 MG Tablet PO (07:49)
[2017-03-26] MEDS: Famotidine 20 MG Tablet PO (07:49)
[2017-03-26] MEDS: HYDROCHLOROTHIAZIDE 12.5 MG CAPSULE PO (07:49)
[2017-03-26] MEDS: Gabapentin 100 MG Capsule 200 MG PO ×3 (07:50→16:40)
--- NOTE | 2017-03-26 07:52 | PCM.PN.HOSP ---
Patient Problems: Active and Suspected Problems Acute back pain (Acute) Hip pain, right (Acute) Subjective: Patient overnight remarkably improved since day prior, able to ambulate, markedly less discomfort in the right lower extremity. Evaluation per orthopedic surgery the day prior with imaging included with no obvious orthopedic etiology for discomfort. Recommendation to continue with caudal injection with pain management. Patient denies fevers, chills, nausea, emesis, abdominal pain, chest pain or dyspnea. Objective: Physical Examination: General: awake, alert, oriented x 3 and cooperative, seated upright in bed, NAD, moving well, much improved appearance, no grimacing with movement in bed. Skin: normal color, turgor, no icterus, cyanosis. HEENT: AT/NC, EOMI, PERRLA, MMM. Lungs: CTA bilaterally, moderate effort, mild decrease BL bases, no rales, ronchi or wheezing. Heart: Regular rate and rhythm; no gallop, rub audible. Abdomen: soft, obese, NTTP, ND, normal BS. Extremities: no cyanosis, clubbing, RLE marked improvement, no pain elicited w/ palpation RLE and groin region, able to move much better, rotation appropriate, flexion/extension appropriate, still some discomfort elicited to the region. Neurological: patient awake, alert, oriented x 3; cognitive function intact; pupils equally reactive to light and accomodation; cranial nerves II-XII grossly normal, moving all 4 extremities with marked RLE improvement, strength still mildly decreased LLE with increased usage attempts secondary to discomfort. Psychiatric: affect appears normal, no acute evidence of depressive or anxiety feelings. Vitals/I&O's: Vital Signs Temp Pulse Resp BP Pulse Ox 98.2 F 73 16 141/72 H 98 03/26/17 02:10 03/26/17 02:10 03/26/17 02:10 03/26/17 02:10 03/26/17 02:10 Oxygen Delivery Method Room Air Weight: 176 lb 5.917 oz Body Mass Index (BMI) 31.2 Intake and Output for Last 24 Hours 03/24/17 03/25/17 03/26/17 23:59 23:59 23:59 Intake Total 1046 / 1046 3240 / 3240 1509 / 1509 Output Total 100 / 100 850 / 850 150 / 150 Balance 946 / 946 2390 / 2390 1359 / 1359 Laboratory Results 03/26/17 05:20: WBC 8.5, RBC 3.53 L, Hgb 10.2 L, Hct 30.8 L, MCV 87.3, MCH 28.9, MCHC 33.1, RDW 14.5, RDW Differential 44.9 H, Plt Count 189, MPV 9.4, Immature Gran % (Auto) 0.200, Neut % (Auto) 73.5 H, Lymph % (Auto) 16.5 L, [place] % (Auto) 8.5, Eos % (Auto) 1.2, Baso % (Auto) 0.1, Absolute Neuts (auto) 6.3, Absolute Lymphs (auto) 1.40, Total Counted Not Reportable 03/26/17 05:20: Sodium 140, Potassium 4.1, Chloride 109 H, Carbon Dioxide 23.0, Anion Gap 8, BUN 31 H, Creatinine 0.80, Estim Creat Clear Calc 54.13, Est GFR (MDRD) Af Amer 91, Est GFR (MDRD) Non-Af 75, BUN/Creatinine Ratio 38.6 H, Glucose 98, Calcium 7.8 L Current Medications Al Hydroxide/Mg Hydroxide (Mylanta Ii) 30 ml PO Q6H PRN PRN PRN Reason: Gastric burning Albuterol Sulfate (Ventolin Aerosols) 2.5 mg INHALATION Q2H PRN PRN PRN Reason: dyspnea, wheezing Albuterol/Ipratropium (Duoneb) 3 ml INHALATION Q6HWA.RT [facility] Last Admin: 03/25/17 19:18 Dose: 3 ml Aspirin (Aspirin, Baby) 81 mg PO DAILY@0800 [facility] Last Admin: 03/26/17 07:50 Dose: Not Given Cyclobenzaprine HCl (Flexeril) 5 mg PO BID [facility] Last Admin: 03/26/17 07:48 Dose: 5 mg Famotidine (Pepcid) 20 mg PO BID [facility] Last Admin: 03/26/17 07:49 Dose: 20 mg Gabapentin (Neurontin) 200 mg PO TIDCM [facility] Last Admin: 03/26/17 07:50 Dose: 200 mg Hydrochlorothiazide (Hydrochlorothiazide) 12.5 mg PO DAILY [facility] Last Admin: 03/26/17 07:49 Dose: 12.5 mg Hydromorphone HCl (Dilaudid) 0.5 mg IV Q4H PRN PRN PRN Reason: SEVERE PAIN (6-10/10) Last Admin: 03/25/17 18:37 Dose: 0.5 mg Sodium Chloride () 1,000 mls @ 100 mls/hr IV .Q10H [facility] Last Admin: 03/25/17 22:44 Dose: 100 mls/hr Ketorolac Tromethamine (Toradol) 15 mg IV Q8 [facility] Stop: 03/29/17 14:23 Last Admin: 03/26/17 05:37 Dose: 15 mg Lisinopril (Zestril) 10 mg PO DAILY [facility] Last Admin: 03/26/17 07:49 Dose: 10 mg Magnesium Hydroxide (Milk Of Magnesia) 30 ml PO DAILY PRN PRN PRN Reason: Constipation Ondansetron HCl (Zofran) 4 mg IV Q8H PRN PRN PRN Reason: NAUSEA Oxycodone HCl (Oxyir) 5 mg PO Q4H PRN PRN PRN Reason: SEVERE PAIN (6-10/10) Last Admin: 03/25/17 15:59 Dose: 5 mg Prednisone (Prednisone) 40 mg PO DAILY@0800 [facility] Last Admin: 03/26/17 07:49 Dose: 40 mg Senna/Docusate Sodium (Senokot-S, Radha-Colace) 2 tablet PO BID [facility] Last Admin: 03/26/17 07:50 Dose: Not Given Sodium Chloride () 5 - 30 ml IV UD PRN PRN Reason: SALINE FLUSH Last Admin: 03/26/17 05:37 Dose: 10 ml Assessment/Plan Active and Suspected Problems Acute back pain (Acute) Hip pain, right (Acute) The patient is a 71 y/o F w/ PMHx: HTN, Asthma/COPD, Obesity, OA, Chronic back pain s/p lumbar fusion who presents to the [facility] ED on 03/24/17 with history of ongoing intractable back pain whic started ~ 3 weeks prior at which point she had fallen with onset lumbar pain increased above baseline with ongoing discomfort to the anterior thigh, right hip and groin region. (1) Acute Intractable Lumbar Back Pain w/ Radiculopathy: Plain films in the ED w/ degenerative findings only. Admitted to [place], maintain on fall precautions, frequent positioning, po/IV pain regimen, IV lower dose scheduled toradol, low dose flexeril, prednisone burst therapy, gabapentin, anti-emetics, bowel regimen. Dr. Lerma/Dr. Brown, Pain management consulted for possible caudal injection which orthopedic surgery also supports with planned intervention 03/26/17 afternoon. DVT US RLE obtained and preliminary negative for DVT. Dr. Sapp who is on for Dr. Queen group consulted, CT pelvis obtained without acute findings, encouraged caudal injection. PT, OT consulted and following, given notable improvement with current interventions and impending caudal injection will plan discharge to home with home health following. (2) Chronic COPD/Asthma: No tobacco use history. Maintain on ATC duonebs, PRN albuterol, HOB, IS parameters. (3) Hypertension: Continue home regimen including lisinopril, hydrochlorothiazide, PRN hydralazine. (4) Obesity: Weight loss and lifestyle changes encouraged. (5) Chronic back pain s/p lumbar fusion: Follows outpatient with pain management, Dr. Lerma for routine injections. (6) DVT prophylaxis: SCDs, lovenox held for injection.
--- NOTE | 2017-03-26 07:55 | PN_ITS ---
Patient Problems: Active and Suspected Problems Acute back pain (Acute) Hip pain, right (Acute) Subjective: Patient overnight remarkably improved since day prior, able to ambulate, markedly less discomfort in the right lower extremity. Evaluation per orthopedic surgery the day prior with imaging included with no obvious orthopedic etiology for discomfort. Recommendation to continue with caudal injection with pain management. Patient denies fevers, chills, nausea, emesis, abdominal pain, chest pain or dyspnea. Objective: Physical Examination: General: awake, alert, oriented x 3 and cooperative, seated upright in bed, NAD , moving well, much improved appearance, no grimacing with movement in bed. Skin: normal color, turgor, no icterus, cyanosis. HEENT: AT/NC, EOMI, PERRLA, MMM. Lungs: CTA bilaterally, moderate effort, mild decrease BL bases, no rales, ronchi or wheezing. Heart: Regular rate and rhythm; no gallop, rub audible. Abdomen: soft, obese, NTTP, ND, normal BS. Extremities: no cyanosis, clubbing, RLE marked improvement, no pain elicited w/ palpation RLE and groin region, able to move much better, rotation appropriate, flexion/extension appropriate, still some discomfort elicited to the region. Neurological: patient awake, alert, oriented x 3; cognitive function intact; pupils equally reactive to light and accomodation; cranial nerves II-XII grossly normal, moving all 4 extremities with marked RLE improvement, strength still mildly decreased LLE with increased usage attempts secondary to discomfort. Psychiatric: affect appears normal, no acute evidence of depressive or anxiety feelings. Vitals/I&O's: Vital Signs Temp Pulse Resp BP Pulse Ox 98.2 F 73 16 141/72 H 98 03/26/17 02:10 03/26/17 02:10 03/26/17 02:10 03/26/17 02:10 03/26/17 02:10 Oxygen Delivery Method Room Air Weight: 176 lb 5.917 oz Body Mass Index (BMI) 31.2 Intake and Output for Last 24 Hours 03/24/17 03/25/17 03/26/17 23:59 23:59 23:59 Intake Total 1046 / 1046 3240 / 3240 1509 / 1509 Output Total 100 / 100 850 / 850 150 / 150 Balance 946 / 946 2390 / 2390 1359 / 1359 Laboratory Results 03/26/17 05:20: WBC 8.5, RBC 3.53 L, Hgb 10.2 L, Hct 30.8 L, MCV 87.3, MCH 28.9 , MCHC 33.1, RDW 14.5, RDW Differential 44.9 H, Plt Count 189, MPV 9.4, Immature Gran % (Auto) 0.200, Neut % (Auto) 73.5 H, Lymph % (Auto) 16.5 L, Yates % (Auto) 8.5, Eos % (Auto) 1.2, Baso % (Auto) 0.1, Absolute Neuts (auto) 6.3, Absolute Lymphs (auto) 1.40, Total Counted Not Reportable 03/26/17 05:20: Sodium 140, Potassium 4.1, Chloride 109 H, Carbon Dioxide 23.0, Anion Gap 8, BUN 31 H, Creatinine 0.80, Estim Creat Clear Calc 54.13, Est GFR ( MDRD) Af Amer 91, Est GFR (MDRD) Non-Af 75, BUN/Creatinine Ratio 38.6 H, Glucose 98, Calcium 7.8 L Current Medications Al Hydroxide/Mg Hydroxide (Mylanta Ii) 30 ml PO Q6H PRN PRN PRN Reason: Gastric burning Albuterol Sulfate (Ventolin Aerosols) 2.5 mg INHALATION Q2H PRN PRN PRN Reason: dyspnea, wheezing Albuterol/Ipratropium (Duoneb) 3 ml INHALATION Q6HWA.RT [facility] Last Admin: 03/25/17 19:18 Dose: 3 ml Aspirin (Aspirin, Baby) 81 mg PO DAILY@0800 [facility] Last Admin: 03/26/17 07:50 Dose: Not Given Cyclobenzaprine HCl (Flexeril) 5 mg PO BID [facility] Last Admin: 03/26/17 07:48 Dose: 5 mg Famotidine (Pepcid) 20 mg PO BID [facility] Last Admin: 03/26/17 07:49 Dose: 20 mg Gabapentin (Neurontin) 200 mg PO TIDCM [facility] Last Admin: 03/26/17 07:50 Dose: 200 mg Hydrochlorothiazide (Hydrochlorothiazide) 12.5 mg PO DAILY [facility] Last Admin: 03/26/17 07:49 Dose: 12.5 mg Hydromorphone HCl (Dilaudid) 0.5 mg IV Q4H PRN PRN PRN Reason: SEVERE PAIN (6-10/10) Last Admin: 03/25/17 18:37 Dose: 0.5 mg Sodium Chloride () 1,000 mls @ 100 mls/hr IV .Q10H [facility] Last Admin: 03/25/17 22:44 Dose: 100 mls/hr Ketorolac Tromethamine (Toradol) 15 mg IV Q8 [facility] Stop: 03/29/17 14:23 Last Admin: 03/26/17 05:37 Dose: 15 mg Lisinopril (Zestril) 10 mg PO DAILY [facility] Last Admin: 03/26/17 07:49 Dose: 10 mg Magnesium Hydroxide (Milk Of Magnesia) 30 ml PO DAILY PRN PRN PRN Reason: Constipation Ondansetron HCl (Zofran) 4 mg IV Q8H PRN PRN PRN Reason: NAUSEA Oxycodone HCl (Oxyir) 5 mg PO Q4H PRN PRN PRN Reason: SEVERE PAIN (6-10/10) Last Admin: 03/25/17 15:59 Dose: 5 mg Prednisone (Prednisone) 40 mg PO DAILY@0800 [facility] Last Admin: 03/26/17 07:49 Dose: 40 mg Senna/Docusate Sodium (Senokot-S, Radha-Colace) 2 tablet PO BID [facility] Last Admin: 03/26/17 07:50 Dose: Not Given Sodium Chloride () 5 - 30 ml IV UD PRN PRN Reason: SALINE FLUSH Last Admin: 03/26/17 05:37 Dose: 10 ml Assessment/Plan Active and Suspected Problems Acute back pain (Acute) Hip pain, right (Acute) The patient is a 71 y/o F w/ PMHx: HTN, Asthma/COPD, Obesity, OA, Chronic back pain s/p lumbar fusion who presents to the [facility] ED on 03/24/17 with history of ongoing intractable back pain whic started ~ 3 weeks prior at which point she had fallen with onset lumbar pain increased above baseline with ongoing discomfort to the anterior thigh, right hip and groin region. (1) Acute Intractable Lumbar Back Pain w/ Radiculopathy: Plain films in the ED w / degenerative findings only. Admitted to [place], maintain on fall precautions, frequent positioning, po/IV pain regimen, IV lower dose scheduled toradol, low dose flexeril, prednisone burst therapy, gabapentin, anti-emetics, bowel regimen. Dr. Lerma/Dr. Brown, Pain management consulted for possible caudal injection which orthopedic surgery also supports with planned intervention afternoon. DVT US RLE obtained and preliminary negative for DVT. Dr. Sapp who is on for Dr. Queen group consulted, CT pelvis obtained without acute findings, encouraged caudal injection. PT, OT consulted and following, given notable improvement with current interventions and impending caudal injection will plan discharge to home with home health following. (2) Chronic COPD/Asthma: No tobacco use history. Maintain on ATC duonebs, PRN albuterol, HOB, IS parameters. (3) Hypertension: Continue home regimen including lisinopril, hydrochlorothiazide, PRN hydralazine. (4) Obesity: Weight loss and lifestyle changes encouraged. (5) Chronic back pain s/p lumbar fusion: Follows outpatient with pain management , Dr. Lerma for routine injections. (6) DVT prophylaxis: SCDs, lovenox held for injection.
[2017-03-26] MEDS: 0.9% Normal Saline 1,000 ML 100 ML IV (07:56)
--- NOTE | 2017-03-26 09:33 | CASEMGMT ---
REJI SAMUELS sent referral to [facility] which is that patient's choice for [facility]. Referral was for PT/OT to eval and treat. Xenia at [facility] stated they would be able to accept the paitent. REJI SAMUELS notified patient of [facility] with [facility] for PT/OT. REJI SAMUELS will continue to follow this patient and plan for a safe discharge.
--- NOTE | 2017-03-26 10:51 | PCM.DC ---
- Discharge Diagnoses Current Active Problems: Current Active and Chronic Problems COPD (chronic obstructive pulmonary disease) (Chronic) HTN (hypertension) (Chronic) Asthma (Chronic) Chronic back pain (Chronic) Acute back pain (Acute) Hip pain, right (Acute) (1) Acute Intractable Lumbar Back Pain and RLE w/ Radiculopathy (2) Chronic COPD/Asthma (3) Hypertension (4) Obesity (5) Chronic back pain s/p lumbar fusion You will use the following diet at home:: Cardiac Your food should be the consistency of: Regular Your liquids should be the consistency of: Regular/Thin Discharge Activity: - - Avoid aggressive activity until re-evaluation, slowly advance activity to mild to moderate until re-evaluation per primary care physician. Follow activity instructions otherwise per Dr. Brown following caudal injection. May resume sexual activity in: 10-14 days Weight Bearing Status: Weight bearing as tolerated Call your doctor if you observe: Fever of 101 or Higher, Inability to urinate, Inability to have a bowel movement, Shortness of breath, Dizziness, Fainting spells, Chest pain, Uncontrolled pain Instructions: How Your Back Works, Relieving Back Pain, ED Sciatica Allergies/Adverse Reactions: Allergies No Known Allergies Allergy (Verified 01/14/16 14:26) Medications to take at Discharge Fluticasone/Salmeterol [Advair 250/50 Mcg Diskus] 1 puff INHALATION DAILY 09/28/15 Lisinopril/Hydrochlorothiazide [Zestoretic 12/04.5 Tablet] 1 tablet PO DAILY 01/14/16 Acetaminophen [Tylenol Tablet] 650 mg PO Q6 PRN 03/24/17 Oxycodone HCl/Acetaminophen [Percocet 5-325] 1 tablet PO Q4H PRN PRN 03/24/17 Aspirin [Aspirin, Baby] 81 mg PO DAILY@0800 tab.chew 03/26/17 Cyclobenzaprine [Flexeril] 5 mg PO BID #14 tab 03/26/17 Cyclobenzaprine [Flexeril] 5 mg PO BID #14 tablet 03/26/17 Famotidine [Pepcid] 20 mg PO BID #60 tab 03/26/17 Gabapentin [Neurontin] 200 mg PO TIDCM #21 cap 03/26/17 Gabapentin [Neurontin] 200 mg PO TIDCM #21 capsule 03/26/17 Ibuprofen 600 mg PO Q8H PRN #20 tab 03/26/17 Prednisone [Deltasone] 40 mg PO DAILY 5 Days tab 03/26/17 Senna/Docusate Sodium [Senokot-S] 2 tab PO BID #60 tab 03/26/17 The following prescriptions were given: Ibuprofen 600 mg PO Q8H PRN #20 tab PRN Reason: Moderate Pain (4-5/10) Prednisone [Deltasone] 40 mg PO DAILY 5 Days tab Cyclobenzaprine [Flexeril] 5 mg PO BID #14 tab Famotidine [Pepcid] 20 mg PO BID #60 tab Senna/Docusate Sodium [Senokot-S] 2 tab PO BID #60 tab Gabapentin [Neurontin] 200 mg PO TIDCM #21 cap Primary Care Physician: Ellie Daigle MD [Primary Care Provider] - Please follow up with your Primary Care Physician in: Follow-up with your PCP within 3-5 days to review admission. Please Follow Up With: Jan Lerma When: Follow-up with Pain Management as previously arranged or instructed. Proposed Discharge Date: 03/26/17
--- NOTE | 2017-03-26 11:00 | PCM.DC.SUM ---
Discharge Date and Diagnosis - Problem List Patient Problems: Active and Suspected Problems Acute back pain (Acute) Hip pain, right (Acute) Date of Admission: 03/24/17 Date of Discharge: 03/26/17 - Primary Discharge Diagnosis Active and Suspected Problems Acute back pain (Acute) Hip pain, right (Acute) (1) Acute Intractable Lumbar Back Pain w/ RLE Radiculopathy (2) Chronic COPD/Asthma (3) Hypertension (4) Obesity (5) Chronic back pain s/p lumbar fusion - Secondary Discharge Diagnosis Chronic Problems COPD (chronic obstructive pulmonary disease) (Chronic) HTN (hypertension) (Chronic) Asthma (Chronic) Chronic back pain (Chronic) Hospital Course and Treatment Imaging Results: 03/26/17 09:00 OR-Steroi/Epid Inj/Lum Sac/1st [RAD] Urgent 03/26/17 12:30 Fluor Guidance for Spine Inj [RAD] Urgent Operations: None Procedures: EKG, - - Caudal Pain Injection Summary of Care Provided: The patient is a 71 y/o F w/ PMHx: HTN, Asthma/COPD, Obesity, OA, Chronic back pain s/p lumbar fusion who presented to the [facility] ED on 03/24/17 with history of ongoing intractable back pain whic started ~ 3 weeks prior at which point she had fallen with onset lumbar pain increased above baseline with ongoing discomfort to the anterior thigh, right hip and groin region. Plain films in the ED w/ degenerative findings only. Admitted to [place], maintain on fall precautions, frequent positioning, po/IV pain regimen, IV lower dose scheduled toradol, low dose flexeril, prednisone burst therapy, gabapentin, anti-emetics, bowel regimen. Dr. Lerma/Dr. Brown, Pain management consulted with caudal injection 03/26/17 afternoon. DVT US RLE obtained and preliminary negative for DVT. Dr. Sapp consulted, CT pelvis obtained without acute findings, encouraged caudal injection. PT, OT consulted and followed, given notable improvement with current interventions and caudal injection patient improved w/ discharge to home with home health requested. Upon discharge continued short duration burst steroids, IBU PRN, low dose short term flexeril, low dose TID short term neurontin with recommended follow-up with her PCP as well as ongoing evaluation per Dr. Lerma for regular injections as deemed necessary. Discharge Activity: - - Avoid aggressive activity until re-evaluation, slowly advance activity to mild to moderate until re-evaluation per primary care physician. Follow activity instructions otherwise per Dr. Brown following caudal injection. May resume sexual activity in: 10-14 days Weight Bearing Status: Weight bearing as tolerated Call your doctor if you observe: Fever of 101 or Higher, Inability to urinate, Inability to have a bowel movement, Shortness of breath, Dizziness, Fainting spells, Chest pain, Uncontrolled pain Home Medications: Medications to take at Discharge Fluticasone/Salmeterol [Advair 250/50 Mcg Diskus] 1 puff INHALATION DAILY 09/28/15 Lisinopril/Hydrochlorothiazide [Zestoretic 12/04.5 Tablet] 1 tablet PO DAILY 01/14/16 Acetaminophen [Tylenol Tablet] 650 mg PO Q6 PRN 03/24/17 Oxycodone HCl/Acetaminophen [Percocet 5-325] 1 tablet PO Q4H PRN PRN 03/24/17 Aspirin [Aspirin, Baby] 81 mg PO DAILY@0800 tab.chew 03/26/17 Cyclobenzaprine [Flexeril] 5 mg PO BID #14 tab 03/26/17 Famotidine [Pepcid] 20 mg PO BID #60 tab 03/26/17 Gabapentin [Neurontin] 200 mg PO TIDCM #21 cap 03/26/17 Ibuprofen 600 mg PO Q8H PRN #20 tab 03/26/17 Prednisone [Deltasone] 40 mg PO DAILY 5 Days tab 03/26/17 Senna/Docusate Sodium [Senokot-S] 2 tab PO BID #60 tab 03/26/17 Following Prescrptions Were Given to Patient: Ibuprofen 600 mg PO Q8H PRN #20 tab PRN Reason: Moderate Pain (4-5/10) Prednisone [Deltasone] 40 mg PO DAILY 5 Days tab Cyclobenzaprine [Flexeril] 5 mg PO BID #14 tab Famotidine [Pepcid] 20 mg PO BID #60 tab Senna/Docusate Sodium [Senokot-S] 2 tab PO BID #60 tab Gabapentin [Neurontin] 200 mg PO TIDCM #21 cap Primary Care Physician: Ellie Daigle MD [Primary Care Provider] - Please follow up with your Primary Care Physician in: Follow-up with your PCP within 3-5 days to review admission. Please Follow Up With: Jan Lerma When: Follow-up with Pain Management as previously arranged or instructed. Patient Instructions: How Your Back Works, Relieving Back Pain, ED Sciatica Disposition: Home with Home Health Minutes spent on discharge:: 35 Patient Condition:: Fair Meaningful Use Info Meaningful Use Diagnoses (Choose all that apply): None applicable Code Visit OBSV E&M: 50457 Observation care discharge
--- NOTE | 2017-03-26 11:34 | NURSING ---
called report to ac. pt down to surgery in bed. no family at bedside.
--- NOTE | 2017-03-26 13:00 | RAD_ITS ---
PROCEDURE: Caudal block. DATE OF EXAMINATION: March 26, 2017. INDICATION: Female, 71 years old. Chronic back pain. FLUOROSCOPY TIME (if supplied): (0:03) minutes/seconds Intraoperative imaging provided for caudal block. RAD/Fluor Guidance for Spine Inj IMPRESSION: Intraoperative imaging provided for caudal block. Electronically Signed: Jean Marie Fuentes MD at 13:47 EST Tel [phone], Service support ,
[2017-03-26] MEDS: Triamcinolone Acetonide 40 MG/ML Vial (13:01)
[2017-03-26] MEDS: oxyCODONE 5 MG Tablet PO (16:40)
== END 2017-03-26 19:21 | disposition home or self-care (01) ==
LOC: ED 09:35 → MS3 12:48
PROVIDERS: Anesthesiology; Anesthesiology Pain Medicine; Admitting Provider Family Medicine; Emergency Provider Emergency Medicine; Family Provider Internal Medicine; PCP Internal Medicine; Visit Provider Family Medicine
PROC: 3E0S3BZ Introduction of Anesthetic Agent into Epidural Space, Percutaneous Approach (ICD-10-PCS; CPT 62282; principal; 2017-03-26 12:25)
DX: M96.1 Postlaminectomy syndrome, not elsewhere classified (principal); Y83.8 Other surgical procedures as the cause of abnormal reaction of the patient, or of later complication, without mention of misadventure at the time of the procedure; E66.9 Obesity, unspecified; Z68.31 Body mass index [BMI] 31.0-31.9, adult; Z71.3 Dietary counseling and surveillance; I10 Essential (primary) hypertension; G89.29 Other chronic pain; M54.16 Radiculopathy, lumbar region; M19.90 Unspecified osteoarthritis, unspecified site; Z91.81 History of falling; Z79.899 Other long term (current) drug therapy; Z98.1 Arthrodesis status; M79.89 Other specified soft tissue disorders
CPT/HCPCS: 62323; 36415; 64483; 72100; 72192; 73552; 77003; 80048; 80053; 83735; 85025; 93005; 93971; 94640; 96361; 96372; 96374; 96375; 96376; 97110; 97162; 97165; 97802; 99218; 99285; J7030; A4216; G0378

== ENCOUNTER 2017-11-13 09:42 | Day surgery (SDC) | payer MEDICARE, SELFPAY ==
[2017-11-13] VITALS (8 sets, daily range): BP systolic 119–170; BP diastolic 49–96; PULSE 55–80; RESP 16; TEMP 36.2–36.7; O2SAT 93–99; BMI 31.4
--- NOTE | 2017-11-13 11:00 | RAD_ITS ---
Fluoroscopic guidance for neurostimulator insertion TECHNIQUE: 4 fluoroscopic images. 187 seconds of fluoroscopy time. FINDINGS: 4 fluoroscopic images demonstrate 2 fluoroscopic leads of the lower thoracic spine (exact level and elevated white count images). IMPRESSION: Fluoroscopic guidance for neurostimulator insertion. Please see procedural report. Electronically Signed: Fred Murray MD at 13:21 EDT , Service support , RAD/Lumbar Spine 2 or 3 Views
[2017-11-13] MEDS: Cefazolin 2 GM in 0.9% Normal Saline 100 ML IV (11:57)
[2017-11-13] MEDS: Bupiv/Epi 0.5% Mpf 30 ML Vial (13:07)
== END 2017-11-13 15:51 | disposition home or self-care (01) ==
LOC: SDC 09:44 → AC 09:45
PROVIDERS: Family Provider Internal Medicine; PCP Internal Medicine; Visit Provider Anesthesiology Pain Medicine
PROC: (CPT 63685; principal; 2017-11-13 10:45)
DX: M96.1 Postlaminectomy syndrome, not elsewhere classified (principal); M54.10 Radiculopathy, site unspecified; G89.4 Chronic pain syndrome; E66.9 Obesity, unspecified; I10 Essential (primary) hypertension; J45.909 Unspecified asthma, uncomplicated; Z87.19 Personal history of other diseases of the digestive system; Z78.0 Asymptomatic menopausal state; Z98.1 Arthrodesis status; Z79.899 Other long term (current) drug therapy
CPT/HCPCS: 63650 ×2; 63685; 95972; 72100; 76000; J7120; J2405

== ENCOUNTER 2017-11-28 14:06 | Emergency (ER) | payer MEDICARE, SELFPAY ==
[2017-11-28 14:07] VITALS: BP 166/67; PULSE 86; RESP 17; TEMP 37.3; O2SAT 99; BMI 30.9
--- NOTE | 2017-11-28 14:38 | CT_ITS ---
STUDY: CT BRAIN WITHOUT CONTRAST REASON FOR EXAM: Female, 72 years old. Headache. RADIATION DOSAGE (If Supplied By Facility): CTDIvol = ( 44.99 ) mGy, DLP = ( 762.36 ) mGycm TECHNIQUE: Transaxial CT imaging of the brain was performed without administration of intravenous contrast material. Individualized dose optimization techniques were used for this CT. COMPARISON: None. FINDINGS: Normal soft tissue structures. Normal calvarium. Normal size ventricles and extra-axial spaces for the patient's age. Normal white matter tracts of the cerebral hemispheres. Normal basal ganglia and thalami. Normal brainstem. Normal cerebellum. There is no intracranial hemorrhage. There are no findings of an acute ischemic infarction. There is complete opacification right maxillary sinus. There is mucoperiosteal reaction in the ethmoid air cells. There appears to be a polyp in the left upper nasal cavity. CT/Brain/Head without Contrast IMPRESSION: 1. Normal unenhanced CT scan of the brain. 2. Sinusitis with probable left nasal polyp. Electronically Signed: Get Espinoza DO at 15:55 EDT Tel [phone], Service support ,
--- NOTE | 2017-11-28 14:42 | ED.DCSUM_ITS ---
- ER Visit Summary Date of Service: 11/28/17 Chief Complaint: Headache, nausea and vomiting History of Present Illness: The patient is a 72 F patient reports headache 5 days ago frontal region. No falls or head injuries. States at that time had nausea and vomiting and diarrhea total 4 episodes over 2 days. Diarrhea is improved, states nausea and vomited, and go. 2 episodes today. No hematemesis. No fevers. No neck pain. States with her headaches, mild photophobia, no aura. No history of headaches. Status post spinal stimulator November 13 for her back, states back pain is improving with this. Denies any allergies. No urinary symptoms. Physical Examination: General: Alert and oriented ?3, no acute distress HEENT: Normocephalic, atraumatic. Moist mucosa membranes pupils equal reactive to light, extraocular muscles intact. Neck: supple, nontender. No meningismus Cardiovascular: Regular rate and rhythm, no murmurs Respiratory: Normal breath sounds, symmetric, no distress Abdomen: Soft, nontender, nondistended. Negative McBurney's, negative Thompson's. Extremities: Nontender, no edema, pulses intact ?4 Neuro: no focal neurological deficits. Cranial nerves II through XII intact. Test Results: WBC 16.7. Hemoglobin 10.2. Potassium 2.7. Creatinine 1. Magnesium 2.2. CT head ethmoid sinusitis left nasal Brandon. No intracranial process. Emergency Department Course and Treatment: Patient vital signs stable, no meningismus. Headache symptoms before her vomiting. Her diarrhea has improved. She is given IV fluids. Reglan and Benadryl for headache symptoms. CT head was obtained, no intracranial process noted ethmoid sinusitis findings. Patient nausea improved with medicine still has had discomfort. Discussed likely sinus headaches with findings on CT. Her persistent symptoms for 5 days we will placed on Augmentin. Her potassium was 2.7 she is on hydrochlorothiazide. Magnesium level was added which is normal. Started on potassium replacement today and continued for 7 days. Patient does have an elevated white count. She denies any cough or urinary symptoms. No rash. Hemoglobin similar to March of this year. Patient given prescriptions for symptom control and follow-up with PCP. Signs and symptoms discussed to return. All questions were answered. Treatment Plan: [] Disposition: Discharge Impression: 1. Sinus headache 2. Nausea and vomiting 3. Hypokalemia This note was generated with [employer] dictation software. It may contain incorrect words, spelling, and punctuation that were not noted in review of the chart prior to signing ED Disposition - Plan for ED Patient: Disposition: Home or Assisted Living Chief Complaint: Nausea/Vomiting/Diarrhea Diagnosis: Sinus headache, Nausea and vomiting, Hypokalemia Instructions: ED Vomiting Diarrhea Nonspecific Ad, ED Headache Sinus, ED Potassium Deficiency Prescriptions: Ondansetron [Zofran Odt] 8 mg PO Q8H PRN PRN #10 tab PRN Reason: Nausea Amox/Clavulanate Tablet [Augmentin Tablet] 875 mg PO Q12H #20 tablet Potassium Cloride Effervescent [Potassium Chl 25 Meq Eff (For Liquid)] 25 meq PO DAILY #7 tablet.eff Referrals: Ellie Daigle MD [Primary Care Provider] - 3-5 Days Additional Instructions: Potassium 2.7. Magnesium 2.2. Take potassium replacement as prescribed. Recheck by your doctor. Take antibiotic for your sinus headache. Continue oral fluids, Zofran as needed.
[2017-11-28] MEDS: 0.9% Normal Saline 1,000 ML 1000 ML IV (15:15)
[2017-11-28] MEDS: DiphenhydrAMINE 50 MG/ML Syringe 25 MG IV (15:15)
[2017-11-28] MEDS: Metoclopramide 10 MG/2 ML Vial IV (15:15)
[2017-11-28 15:25] LABS: Anion Gap 9 (5-15); BUN 31 mg/dL (7-18); Calcium,Total 9.1 mg/dL (8.5-10.1); Chloride 96 mmol/L (98-107); EST Glomerular Filtration Rate 58 mL/min (>60); Est Glom Filt Rate - Afr Amer 70 mL/min (>60); Estimated Creatinine Clearance 42.68 ml/min; Glucose 144 mg/dL (74-106); Potassium 2.7 mmol/L (3.5-5.1); Sodium Level 134 mmol/L (136-145)
[2017-11-28 15:33] LABS: Absolute Lymphocyte Count 0.29 X10^3/ul (0.83-4.51); Absolute Neutrophil Count 14.8 X10^3/uL (2.0-7.7); Basophil# 0.02 X10^3/uL; Basophil% 0.1 % (0-1); Eosinophil# 0.01 X10^3/uL; Eosinophils% 0.1 % (0-5); Hemoglobin 10.2 g/dl (12.0-15.0); Lymphocyte # 0.29 X10^3/ul (4.0); Lymphocyte % 1.7 % (19-41); Mean Corp Hgb Conc 32.9 g/gl (32-36); Mean Corpuscular Volume 85.2 fL (81-99); Monocyte# 1.43 X10^3/uL; Monocyte% 8.6 % (0-10); Neutrophil # 14.82 X10^3/uL (2.7-7.7); Neutrophil % 88.7 % (47-70); Platelet Count 281 K/mm3 (150-450); RBC Distribution Width SD 42.4 fl (35.1-43.9); Red Blood Count 3.64 M/mm3 (4.2-5.4); White Blood Count 16.7 K/mm3 (4.4-11.0)
[2017-11-28 16:09] LABS: Differential Indicated SCAN CRITERIA MET; POSITIVE COUNT NO; POSITIVE DIFFERENTIAL YES; POSITIVE MORPHOLOGY YES
[2017-11-28 16:12] LABS: Differential Comment SCANNED
[2017-11-28 16:24] LABS: Magnesium 2.2 mg/dL (1.6-2.6)
[2017-11-28] MEDS: Amox/Clavulanate 875 MG Tablet PO (17:16)
[2017-11-28 17:45] VITALS: BP 160/77; PULSE 88; RESP 18; O2SAT 96
== END 2017-11-28 17:46 | disposition home or self-care (01) ==
PROVIDERS: Emergency Provider Emergency Medicine; Family Provider Internal Medicine; PCP Internal Medicine
DX: R51 Headache (principal); R11.2 Nausea with vomiting, unspecified; E87.6 Hypokalemia; J32.2 Chronic ethmoidal sinusitis; I10 Essential (primary) hypertension; Z79.899 Other long term (current) drug therapy
CPT/HCPCS: 70450; 80048; 83735; 85025; 99285; J7030; A4216

== ENCOUNTER 2017-11-29 18:24 | Inpatient (IN) | payer MEDICARE, SELFPAY ==
[2017-11-29] VITALS (8 sets, daily range): BP systolic 157–201; BP diastolic 66–85; PULSE 60–101; RESP 14–28; TEMP 37.1–38.1; O2SAT 94–98; BMI 28.3
--- NOTE | 2017-11-29 18:50 | ED.RN ---
EMS CALLED FROM HOME. EVALUATING FOR CARBON MONOXIDE IN THE HOME AT CURRENT. WILL CALL WITH UPDATE. Elizabeth GUILLEN RN
--- NOTE | 2017-11-29 19:05 | EKG12_ITS ---
Test Reason : GEN ILL Blood Pressure : / mmHG Vent. Rate : 091 BPM Atrial Rate : 091 BPM P-R Int : 136 ms QRS Dur : 100 ms QT Int : 358 ms P-R-T Axes : 027 078 026 degrees QTc Int : 440 ms Normal sinus rhythm Normal ECG Confirmed by PHOENIX RYAN, AUTUMN ([id number]), general expeditor VARUN GRANT ([id number]) on 11/30/2017 2:16:41 PM Referred By: Tony Dey Confirmed By:AUTUMN GARIBAY MD
--- NOTE | 2017-11-29 19:05 | RAD_ITS ---
STUDY: X-RAY CHEST REASON FOR EXAM: Female, 72 years old. Altered mental status and fever TECHNIQUE: Single AP portable view of the chest. COMPARISON: None. FINDINGS: The lungs are clear and expanded. There is no demonstrated pleural abnormality. There is mild cardiac enlargement. Normal mediastinum and awilda. Normal visualized pulmonary arteries. Normal visualized aortic arch and descending thoracic aorta. Normal visualized thoracic spine. Normal visualized ribs, clavicles, and shoulders. There is no demonstrated abnormality of the visualized soft tissue structures of the upper abdomen. Spinal stimulator device RAD/Chest 1 View (Portable) IMPRESSION: Mild cardiomegaly. No acute airspace disease. Electronically Signed: Javier Cordero DO at 20:01 EDT Tel , Service support ,
--- NOTE | 2017-11-29 19:07 | CT_ITS ---
STUDY: CT BRAIN WITHOUT CONTRAST REASON FOR EXAM: Female, 72 years old. Altered mental status. RADIATION DOSAGE (If Supplied By Facility): CTDIvol = ( 44.99 ) mGy, DLP = ( 745.49 ) mGycm TECHNIQUE: Transaxial CT imaging of the brain was performed without administration of intravenous contrast material. Individualized dose optimization techniques were used for this CT. COMPARISON: Head CT yesterday FINDINGS: Normal soft tissue structures. Normal calvarium. There is mild cerebral atrophy with widening of the extra-axial spaces and ventricular dilatation. There are areas of decreased attenuation within the white matter tracts of the supratentorial brain, consistent with microvascular disease changes. Normal basal ganglia and thalami. Normal brainstem. Normal cerebellum. There is no intracranial hemorrhage. There are no findings of an acute ischemic infarction. There is mucoperiosteal inflammatory disease of the paranasal sinuses consistent with moderate chronic sinusitis. CT/Brain/Head without Contrast IMPRESSION: No acute intracranial pathology. Paranasal sinus disease. No change from yesterday. Electronically Signed: Javier Cordero DO at 20:00 EDT Tel , Service support ,
[2017-11-29 19:42] LABS: Absolute Lymphocyte Count 0.29 X10^3/ul (0.83-4.51); Basophil# 0.02 X10^3/uL; Basophil% 0.2 % (0-1); Differential Indicated SCAN CRITERIA MET; Eosinophil# 0.02 X10^3/uL; Eosinophils% 0.2 % (0-5); Hematocrit 29.7 % (37-47); Hemoglobin 9.8 g/dl (12.0-15.0); Lymphocyte # 0.29 X10^3/ul (4.0); Lymphocyte % 2.7 % (19-41); Mean Corpuscular Hgb 28.3 pg (27.0-32.0); Mean Corpuscular Volume 85.8 fL (81-99); Mean Platelet Vol. 9.4 fl (6.2-12.0); Monocyte# 1.18 X10^3/uL; Neutrophil # 8.97 X10^3/uL (2.7-7.7); Neutrophil % 83.8 % (47-70); POSITIVE COUNT YES; POSITIVE DIFFERENTIAL YES; POSITIVE MORPHOLOGY YES; Platelet Count 229 K/mm3 (150-450); RBC Distribution Width CV 13.9 % (11.6-14.6); RBC Distribution Width SD 42.5 fl (35.1-43.9); Red Blood Count 3.46 M/mm3 (4.2-5.4); White Blood Count 10.7 K/mm3 (4.4-11.0)
[2017-11-29 19:43] LABS: Color, Urine Yellow (Yellow); Glucose, Dipstick Normal (Normal); Ketone-Dipstick 15 mg/dl (Negative); Leukocyte Esterase-Dipstick 25 /ul (Negative); Nitrite-Dipstick Negative (Negative); Occult Blood-Urine 50 /ul (Negative); Protein-Dipstick 500 mg/dl (Negative); Urine Bilirubin Dipstick Negative (Negative); Urine Clarity Clear (Clear); Urine Urobilinogen 1 mg/dl (Normal)
[2017-11-29 19:44] LABS: International Normalized Ratio 1.1
[2017-11-29 19:50] LABS: Bacteria 1+ /hpf (None Seen); Red Blood Cells-Urine 0-5 SEEN /hpf (0-5); Squamous Epithelial Cells - UA 5-10 SEEN /hpf (5-10); White Blood Cells 5-10 SEEN /hpf (0-5)
[2017-11-29 19:51] LABS: Amorphous Sediment 1+; Mucous, Urine 1+ /hpf (<or=2+)
[2017-11-29 19:59] LABS: ALB/GLOB Ratio 0.5 RATIO (0.9-2.4); AST(SGOT) 40 U/L (15-37); Alanine Aminotransfer ALT/SGPT 34 U/L (13-56); Albumin, Serum 2.5 g/dL (3.2-5.0); Alkaline Phosphatase 102 U/L (45-117); Anion Gap 10 (5-15); BUN 28 mg/dL (7-18); Calcium,Total 8.6 mg/dL (8.5-10.1); Chloride 100 mmol/L (98-107); Creatinine, Serum 0.97 mg/dL (0.55-1.02); EST Glomerular Filtration Rate 60 mL/min (>60); Est Glom Filt Rate - Afr Amer 73 mL/min (>60); Estimated Creatinine Clearance 51.73 ml/min; Globulin 4.6 g/dL (2.2-4.2); Glucose 130 mg/dL (74-106); Potassium 3.1 mmol/L (3.5-5.1); Protein, Total 7.1 g/dL (6.4-8.2); Sodium Level 136 mmol/L (136-145)
[2017-11-29 20:32] LABS: Lactic Acid 1.3 mmol/L (0.4-2.0)
[2017-11-29] MEDS: Cefazolin 1 GM/50 ML BAG IV (22:41)
--- NOTE | 2017-11-29 23:23 | PCM.HP.STD ---
Problem List (1) Sepsis affecting skin Status: Acute (2) Cellulitis Status: Acute (3) HTN (hypertension) Status: Chronic Qualifiers: Hypertension type: essential hypertension Qualified Code(s): I10 - Essential (primary) hypertension (4) COPD (chronic obstructive pulmonary disease) Status: Chronic Qualifiers: COPD type: unspecified COPD Qualified Code(s): J44.9 - Chronic obstructive pulmonary disease, unspecified (5) Acute encephalopathy Status: Acute History of Present Illness Date of Admission: 11/29/17 Chief Complaint: INCREASED LETHARGY The patient is a 72 year old F with a significant history of chronic back pain; COPD; hypertension; upper and lower spine surgery; who presents with progressively worsening lethargy x1 day. Patient was seen at the emergency department a day before this admission at that time CT scan of the head showed sinus infection and she had hypokalemia. She was discharged home on Augmentin and potassium chloride. The next day (the day of this new admission) her daughter went to patient's home. Patient could not appropriately converses with her daughter. All what she was saying was okay okay. Patient who is usually continent was found to be incontinent of urine x2 at home and also incontinent at emergency department. Was at home patient could not stand up requiring a commode to be provided for her. Her daughter reports that since 4 days ago patient have had poor appetite and she has not been eating solid food. She has had weakness and pounding headache. At the time of admission patient reports some mild headache. Patient sees Dr. Brown for chronic pain and pain pump was inserted in her right buttocks because of sciatica. Patient usually has pain only on the right leg but now she is complaining of pain in her entire right side. Past Medical History Past Medical History (Chronic Problems): Chronic Problems Chronic back pain (Chronic) Asthma (Chronic) HTN (hypertension) (Chronic) COPD (chronic obstructive pulmonary disease) (Chronic) Allergies No Known Allergies Allergy (Verified 11/29/17 18:30) Home Medications: Ambulatory Orders Medication Instructions Recorded Fluticasone/Salmeterol [Advair 1 puff INHALATION DAILY PRN 09/28/15 250/50 Mcg Diskus] Lisinopril/Hydrochlorothiazide 1 tablet PO DAILY 01/14/16 [Zestoretic 10/12.5 Tablet] Acetaminophen [Tylenol Tablet] 650 mg PO Q6 PRN 03/24/17 Senna/Docusate Sodium [Senokot-S] 1 tablet PO DAILY 11/10/17 Amox/Clavulanate Tablet [Augmentin 875 mg PO Q12H #20 tablet 11/28/17 Tablet] Ondansetron [Zofran Odt] 8 mg PO Q8H PRN PRN #10 tab 11/28/17 Potassium Cloride Effervescent 25 meq PO DAILY #7 tablet.eff 11/28/17 [Potassium Chl 25 Meq Eff (For Liquid)] Surgical History: appendectomy, cholecystectomy, hysterectomy, - - Hysterectomy, right knee arthroscopic surgery, left shoulder rotator cuff tear intervention, hernia repair, left total knee replacement, left knee arthroscopic surgery, right knee replacement, back surgery, left total hip arthroplasty, right total hip arthroplasty, appendectomy. 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 Denies: Chills, Weight Change HEENT: Reports: Head Aches. Denies: Sinus Congestion, Sinus Drainage Cardiovascular: Denies: Chest Pain, Palpitations Respiratory: Denies: Cough, Shortness of breath at rest, Sputum production Gastrointestinal: Reports: Diarrhea, Vomiting. Denies: Abdominal Pain Genitourinary: Reports: Incontinence Musculoskeletal: Denies: Joint Pain, Joint Tenderness Skin: Reports: Skin Changes - Redness of right posterior side.. Denies: Rash, Wounds Neurological: Reports: Confusion. Denies: Focal weakness, Numbness, Tingling Psychiatric: Denies: Anxiety, Depression, Homicidal Ideations, Suicidal Ideations Hematologic/ Lymphatic: Denies: Easy Bruising, Easy Bleeding VTE Information - Inpt Only VTE Present on Admission: No VTE Mechan Device Prophylaxis: None VTE Pharm Prophylaxis ordered?: Yes Patient Problems: Active and Suspected Problems Cellulitis (Acute) Altered mental status, unspecified (Acute) Sepsis affecting skin (Acute) Acute encephalopathy (Acute) - Physical Exam General: Alert, - - Verbalized that she is not [facility]. Unable to complete sentences. Does not involve herself much in history. Daughter provides much of the history. HEENT: Atraumatic, PERRLA, Normocephalic Neck: Supple, No JVD, Negative Carotid Bruits Lungs: Clear to auscultation, Normal air movement Cardiovascular: No murmurs, No rub noted, No Gallop, Tachycardic Abdomen: Bowel Sounds Present, Soft, Non Tender Extremities: Capillary Refill Less than 3 Seconds, Edema - +1 nonpitting edema to bilateral legs. Skin: No breakdown, - - Redness and tenderness to right posterior side; especially at right posterior hip. Very warm to touch especially at the right posterior side. Musculoskeletal: No Tenderness to Palpation of Joints or Extremities Lymphatic: No Cervical, Supraclavicular, or Inguinal Adenopathy Neurological: - - Lethargic Psych/Mental Status: Normal Affect, Appropriate Vital Signs Temp Pulse Resp BP Pulse Ox 100.5 F H 94 16 161/69 H 98 11/29/17 22:06 11/29/17 23:14 11/29/17 23:14 11/29/17 23:14 11/29/17 23:14 Oxygen Flow Rate (L/min) 2 Oxygen Delivery Method Nasal Cannula Weight: 82 kg Body Mass Index (BMI) 28.3 Laboratory Tests Past 24 Hrs 11/29/17 11/29/17 11/29/17 19:25 19:25 19:25 WBC 10.7 RBC 3.46 L Hgb 9.8 L Hct 29.7 L MCV 85.8 MCH 28.3 MCHC 33.0 RDW 13.9 RDW Differential 42.5 Plt Count 229 MPV 9.4 Immature Gran % (Auto) 2.100 H Neut % (Auto) 83.8 H Lymph % (Auto) 2.7 L [place] % (Auto) 11.0 H Eos % (Auto) 0.2 Baso % (Auto) 0.2 Absolute Neuts (auto) 9.0 H Absolute Lymphs (auto) 0.29 L Total Counted Not Reportable Differential Comment Diff Path Review June foll PT 14.0 INR 1.1 APTT 33.0 Sodium 136 Potassium 3.1 L Chloride 100 Carbon Dioxide 26.0 Anion Gap 10 BUN 28 H Creatinine 0.97 Estim Creat Clear Calc 51.73 Est GFR (MDRD) Af Amer 73 Est GFR (MDRD) Non-Af 60 BUN/Creatinine Ratio 29.0 H Glucose 130 H Lactic Acid Calcium 8.6 Total Bilirubin 0.40 AST 40 H ALT 34 Alkaline Phosphatase 102 Total Protein 7.1 Albumin 2.5 L Globulin 4.6 H Albumin/Globulin Ratio 0.5 L Urine Color Urine Clarity Urine pH Ur Specific [employer] Urine Protein Urine Glucose (UA) Urine Ketones Urine Occult Blood Urine Nitrite Urine Bilirubin Urine Urobilinogen Ur Leukocyte Esterase Urine RBC Urine WBC Ur Squamous Epith Cells Amorphous Sediment Urine Bacteria Urine Mucus 11/29/17 11/29/17 19:25 19:40 WBC RBC Hgb Hct MCV MCH MCHC RDW RDW Differential Plt Count MPV Immature Gran % (Auto) Neut % (Auto) Lymph % (Auto) [place] % (Auto) Eos % (Auto) Baso % (Auto) Absolute Neuts (auto) Absolute Lymphs (auto) Total Counted Differential Comment Diff Path Review PT INR APTT Sodium Potassium Chloride Carbon Dioxide Anion Gap BUN Creatinine Estim Creat Clear Calc Est GFR (MDRD) Af Amer Est GFR (MDRD) Non-Af BUN/Creatinine Ratio Glucose Lactic Acid 1.3 Calcium Total Bilirubin AST ALT Alkaline Phosphatase Total Protein Albumin Globulin Albumin/Globulin Ratio Urine Color Yellow Urine Clarity Clear Urine pH 6.0 Ur Specific [employer] 1.020 Urine Protein 500 H Urine Glucose (UA) Normal Urine Ketones 15 H Urine Occult Blood 50 H Urine Nitrite Negative Urine Bilirubin Negative Urine Urobilinogen 1 H Ur Leukocyte Esterase 25 H Urine RBC 0-5 SEEN Urine WBC 5-10 SEEN Ur Squamous Epith Cells 5-10 SEEN Amorphous Sediment 1+ Urine Bacteria 1+ Urine Mucus 1+ Assessment/Plan All Active Problems Cellulitis (Acute) Altered mental status, unspecified (Acute) Sepsis affecting skin (Acute) Acute encephalopathy (Acute) Hip pain, right (Acute) Acute back pain (Acute) The patient is a 72 year old F with a significant history of chronic back pain; COPD; hypertension; upper and lower spine surgery; pain pump to right buttocks who presents with progressively worsening lethargy; confusion; fever; tachycardia redness to posterior right side; tenderness to posterior right side; and extremely elevated CRP concerning for sepsis secondary to likely infection from pain pump. Sepsis secondary to likely infection from pain pump QSofa = 2; patient with tachypnea; altered mental status SIRS criteria of tachycardia; tachypnea and fever Patient very warm to touch especially at the left posterior side Lactic acid unremarkable White counts high normal C-reactive protein highly elevated at 287 Patient received cefazolin at emergency department. Blood cultures were ordered from the emergency department. Vancomycin and Zosyn ordered We will consult for consideration for pain pump removal. Infectious disease consulted to help optimize management. Tylenol as needed for pain. Trend CBC Hypertension On admission blood pressure was uncontrolled. Hydrochlorothiazide and lisinopril continued Labetalol as needed Trend BMP Abnormal urinalysis Noted to have elevated protein Likely due to hypertensive nephropathy or glomerulonephritis secondary to infection Protein creatinine ratio ordered Continue lisinopril Nephrology consult to optimize management. COPD Budesonide continued Albuterol as needed DVT prophylaxis Subcutaneous heparin. Code Visit Inpatient E&M: 84269 Init Hosp L3
--- NOTE | 2017-11-29 23:41 | ED.VISSUMM ---
- ER Visit Summary Date of Service: 11/29/17 Chief Complaint: Confusion and redness to low back. History of Present Illness: The patient is a 72 F who presents with confusion that became worse today. Patient was seen here yesterday and diagnosed with dehydration. Patient was given IV fluids and had labs drawn yesterday. Patient also had a CT scan of the brain obtained yesterday which was normal. Family noticed redness and warmth over the right lower back over the site of her pain pump today. Family denies any discharge or drainage. Family states the patient has been having some subjective fevers. Family states the patient is unable to complete her sentences. She would start a sentence but would not complete her sentence. This was not due to shortness of breath. Physical Examination: Vital signs are stable. Patient is afebrile here. Patient is in no acute distress. Oral mucosa is pink and moist. Neck is supple. Trachea is midline. There is no JVD noted. Skin is warm dry. There is erythema and warmth over the right lower lumbar area up to the lower thoracic area. There is no fluctuance. There is no discharge or drainage. Heart was regular rate and rhythm. Lungs are clear and equal bilateral. Abdomen is soft and nontender. Cranial nerves II through XII are intact. There are no gross focal motor or sensory deficits noted. Test Results: CT scan of the brain was obtained again today. There is no acute process. Chest x-ray does not show any acute infiltrate. EKG shows normal sinus rhythm with a rate of 91. There are no acute ST or T wave changes. CBC shows a mild anemia with a hemoglobin of 9.8. Comprehensive metabolic profile shows a mild hypokalemia of 3.1. BUN was slightly elevated at 28. Lactate was normal at 1.3. Urinalysis does not show any evidence of urinary tract infection. Emergency Department Course and Treatment: Blood cultures were obtained. Patient was started on Ancef here. Case was discussed with Dr. Dey. He will admit the patient to his service. Patient and family understood and was agreeable with the plan. All questions were answered. Disposition: Discharged home Impression: 1. Cellulitis 2. Altered mental status This note was generated with Sisteeration software. It may contain incorrect words, spelling, and punctuation that were not noted in review of the chart prior to signing ED Disposition - Plan for ED Patient: Disposition: Acute Care Hospital [facility] Chief Complaint: General Illness Diagnosis: Cellulitis, Altered mental status, unspecified Referrals: Ellie Daigle MD [Primary Care Provider] -
[2017-11-30] VITALS (16 sets, daily range): BP systolic 133–197; BP diastolic 45–94; PULSE 70–98; RESP 15–24; TEMP 36.6–38.6; O2SAT 87–97; BMI 32.1; BMI 32.2
[2017-11-30] MEDS: Acetaminophen 650 MG Suppository RECTAL (00:16)
--- NOTE | 2017-11-30 01:46 | NURSING ---
pt's daughter took her purse and clothing home with her
--- NOTE | 2017-11-30 04:34 | PCM.RX.CS ---
Consult Pharmacy has been consulted to manage selected antiobiotic: Vancomycin Type of Consult: New start Suspected Infection: Sepsis Prior Doses of Antibiotics Received/Current Regimen: Medications Vancomycin HCl 750 mg/ Sodium (Chloride) 265 mls @ 250 mls/hr IV Q12H DRE Discontinued Medications Vancomycin HCl 1,250 mg/ (Sodium Chloride) 275 mls @ 167 mls/hr IV X1 ONE Stop: 11/30/17 03:38 Last Admin: 11/30/17 04:19 Dose: 167 mls/hr Labs: Sodium 136 mmol/L (136-145) 11/29/17 19:25 Potassium 3.1 mmol/L (3.5-5.1) L 11/29/17 19:25 Chloride 100 mmol/L (98-107) 11/29/17 19:25 Carbon Dioxide 26.0 mmol/L (21.0-32.0) 11/29/17 19:25 Anion Gap 10 (5-15) 11/29/17 19:25 BUN 28 mg/dL (7-18) H 11/29/17 19:25 Creatinine 0.97 mg/dL (0.55-1.02) 11/29/17 19:25 Est GFR (MDRD) Af Amer 73 mL/min (>60) 11/29/17 19:25 Est GFR (MDRD) Non-Af 60 mL/min (>60) 11/29/17 19:25 BUN/Creatinine Ratio 29.0 RATIO (10-20) H 11/29/17 19:25 Glucose 130 mg/dL (74-106) H 11/29/17 19:25 Weight used for dosin.8 kg Estimated Creatinine Clearance: 52 Goal Trough: 15-20 mcg/mL Pharmacy Plan for Drug Dosing: Pharmacy Service will continue to monitor and adjust dosing as required. Follow-Up Labs: Trough Vancomycin Labs to be done on [date and time ordered]: 12/01/17 @1600
[2017-11-30] MEDS: Piperacil/Tazobactam 3.375 GM/50 ML ML IV (06:12)
[2017-11-30] MEDS: 0.9% NaCl Peripheral Flush Adult/Peds IV (06:14)
[2017-11-30] MEDS: Heparin Injection (Vial) 5,000 UNIT/ML VIAL 5000 UNIT SC ×2 (06:15→22:23)
[2017-11-30] MEDS: Albuterol 2.5 MG/3 ML VIAL.NEB. INHALATION ×2 (06:49→18:56)
[2017-11-30] MEDS: Budesonide Respules 0.5 MG/2 ML AMPUL.NEB. INHALATION ×2 (06:49→18:56)
[2017-11-30 07:11] LABS: Hematocrit 31.2 % (37-47); Hemoglobin 10.1 g/dl (12.0-15.0); Mean Corp Hgb Conc 32.4 g/gl (32-36); Mean Corpuscular Hgb 27.6 pg (27.0-32.0); Mean Corpuscular Volume 85.2 fL (81-99); Mean Platelet Vol. 9.7 fl (6.2-12.0); Platelet Count 212 K/mm3 (150-450); RBC Distribution Width CV 14.3 % (11.6-14.6); RBC Distribution Width SD 43.9 fl (35.1-43.9); Red Blood Count 3.66 M/mm3 (4.2-5.4); White Blood Count 8.5 K/mm3 (4.4-11.0)
[2017-11-30 07:12] LABS: Anion Gap 10 (5-15); BUN 28 mg/dL (7-18); BUN/Creat Ratio 34.1 RATIO (10-20); Calcium,Total 8.6 mg/dL (8.5-10.1); Chloride 103 mmol/L (98-107); Creatinine, Serum 0.82 mg/dL (0.55-1.02); EST Glomerular Filtration Rate 73 mL/min (>60); Est Glom Filt Rate - Afr Amer 88 mL/min (>60); Estimated Creatinine Clearance 49.77 ml/min; Glucose 119 mg/dL (74-106); Potassium 3.3 mmol/L (3.5-5.1); Sodium Level 137 mmol/L (136-145)
[2017-11-30 07:16] LABS: Differential Indicated MANUAL DIFF; POSITIVE COUNT YES; POSITIVE DIFFERENTIAL NO; POSITIVE MORPHOLOGY YES
[2017-11-30 07:34] LABS: Absolute Lymphocyte Count 0.17 X10^3/ul (0.83-4.51); Absolute Neutrophil Count 7.6 X10^3/uL (2.0-7.7); Basophil 2 % (0-1); Lymphocyte 2 % (19-41); Lymphocyte # 0.17 X10^3/ul (4.0); Monocyte 6 % (0-10); Myelocyte 1 (0-0); Neutrophil # 7.56 X10^3/uL (2.7-7.7); Neutrophil-Segmented 89 % (47-70); Platelet Estimate ADEQUATE (ADEQ); Red Cell Morphology NORM C+C NORMAL (NORM C&C); Total Cells Counted 100 (MANUAL DIFF); Toxic Granulation 3+; Vacuolated Cells 3+
--- NOTE | 2017-11-30 09:02 | PCM.PN.HOSP ---
Patient Problems: Active and Suspected Problems Cellulitis (Acute) Altered mental status, unspecified (Acute) Sepsis affecting skin (Acute) Acute encephalopathy (Acute) Subjective: Patient is a 72-year-old lady with history of chronic back pain who underwent pain pump insertion in her right buttock on account of sciatica on 11/13/[address] Brown. Patient was brought to the emergency department due to functional decline and increasing lethargy. An assessment of pain pump infection made antibiotics initiated per protocol and patient admitted to regular nursing floor for subsequent management Objective: GENERAL: Lethargic HEENT: Atraumatic; moist oral mucosa EYES; Anicteric, Normal Conjunctiva NECK; supple, normal thyroid, no distended JVD. RESPIRATORY: Diminished to auscultation bilaterally, CARDIOVASCULAR: Regular S1 S2, no audible murmurs GI: soft, non-tender, normoactive bowel sounds, : No Renal angle tenderness; No ibarra EXTREMITIES: An area of induration on the right buttock with some warmth and erythema MUSCULOSKELTAL: No Joint Tenderness; no muscle waisting NEURO: Awake; no lateralizing signs. SKIN: Erythema right buttock PSYCH; flat affect Vitals/I&O's: Vital Signs Temp Pulse Resp BP Pulse Ox 100 F H 98 24 H 156/51 H 96 11/30/17 08:25 11/30/17 08:29 11/30/17 08:29 11/30/17 08:25 11/30/17 08:29 Oxygen Flow Rate (L/min) 2 Oxygen Delivery Method Nasal Cannula Weight: 79.8 kg Body Mass Index (BMI) 32.1 Intake and Output for Last 24 Hours 11/28/17 11/29/17 11/30/17 23:59 23:59 23:59 Intake Total 297 / 297 Balance 297 / 297 Microbiology Past 72 Hours 11/29/17 20:30 Blood Culture (Wb) - Anticubital Left Blood Culture - Preliminary Laboratory Results 11/29/17 19:25: WBC 10.7, RBC 3.46 L, Hgb 9.8 L, Hct 29.7 L, MCV 85.8, MCH 28.3, MCHC 33.0, RDW 13.9, RDW Differential 42.5, Plt Count 229, MPV 9.4, Immature Gran % (Auto) 2.100 H, Neut % (Auto) 83.8 H, Lymph % (Auto) 2.7 L, [place] % (Auto) 11.0 H, Eos % (Auto) 0.2, Baso % (Auto) 0.2, Absolute Neuts (auto) 9.0 H, Absolute Lymphs (auto) 0.29 L, Total Counted Not Reportable, Differential Comment , Diff Path Review June11/29/17 19:25: PT 14.0, INR 1.1, APTT 33.0 11/29/17 19:25: Sodium 136, Potassium 3.1 L, Chloride 100, Carbon Dioxide 26.0, Anion Gap 10, BUN 28 H, Creatinine 0.97, Estim Creat Clear Calc 51.73, Est GFR (MDRD) Af Amer 73, Est GFR (MDRD) Non-Af 60, BUN/Creatinine Ratio 29.0 H, Glucose 130 H, Calcium 8.6, Total Bilirubin 0.40, AST 40 H, ALT 34, Alkaline Phosphatase 102, Total Protein 7.1, Albumin 2.5 L, Globulin 4.6 H, Albumin/Globulin Ratio 0.5 L 11/29/17 19:25: Lactic Acid 1.3 11/29/17 19:25: C-React Prot Ext Range 287.00 H 11/29/17 19:40: Urine Color Yellow, Urine Clarity Clear, Urine pH 6.0, Ur Specific [place] 1.020, Urine Protein 500 H, Urine Glucose (UA) Normal, Urine Ketones 15 H, Urine Occult Blood 50 H, Urine Nitrite Negative, Urine Bilirubin Negative, Urine Urobilinogen 1 H, Ur Leukocyte Esterase 25 H, Urine RBC 0-5 SEEN, Urine WBC 5-10 SEEN, Ur Squamous Epith Cells 5-10 SEEN, Amorphous Sediment 1+, Urine Bacteria 1+, Urine Mucus 1+ 11/30/17 06:35: WBC 8.5, RBC 3.66 L, Hgb 10.1 L, Hct 31.2 L, MCV 85.2, MCH 27.6, MCHC 32.4, RDW 14.3, RDW Differential 43.9, Plt Count 212, MPV 9.7, Neut % (Auto) Not Reportable, Absolute Neuts (auto) 7.6, Absolute Lymphs (auto) 0.17 L, Total Counted 100, Neutrophils % (Manual) 89 H, Lymphocytes % (Manual) 2 L, Monocytes % (Manual) 6, Basophils % (Manual) 2 H, Myelocytes % 1 H, Differential Comment 3+, Diff Path Review May foll, Toxic Granulation 3+, Platelet Estimate ADEQUATE, RBC Morphology NORM C+C 11/30/17 06:35: Sodium 137, Potassium 3.3 L, Chloride 103, Carbon Dioxide 24.0, Anion Gap 10, BUN 28 H, Creatinine 0.82, Estim Creat Clear Calc 49.77, Est GFR (MDRD) Af Amer 88, Est GFR (MDRD) Non-Af 73, BUN/Creatinine Ratio 34.1 H, Glucose 119 H, Calcium 8.6 Current Medications Acetaminophen (Tylenol) 650 mg PO Q6H PRN PRN PRN Reason: Mild Pain (scale 0-3)/T>100.7 Albuterol Sulfate (Ventolin Aerosols) 2.5 mg INHALATION Q6HWA.RT [facility] Last Admin: 11/30/17 06:49 Dose: 2.5 mg Budesonide (Pulmicort Aerosol) 0.5 mg INHALATION Q12H.RT [facility] Last Admin: 11/30/17 06:49 Dose: 0.5 mg Heparin Sodium (Porcine) (Heparin Na) 5,000 unit SC Q8 [facility] Last Admin: 11/30/17 06:15 Dose: 5,000 unit Hydrochlorothiazide (Hydrochlorothiazide) 12.5 mg PO DAILY [facility] Piperacillin Sod/Tazobactam Sod (Zosyn) 3.375 gm in 50 mls @ 12.5 mls/hr IV Q8 [facility] Last Admin: 11/30/17 06:12 Dose: 12.5 mls/hr Vancomycin IV Pharmacy to Dose (1,250 ea/ Sodium Chloride) 500 mls @ 250 mls/hr IV PRN PRN; Protocol Potassium Chloride 40 meq/ (Lactated Ringer's) 1,020 mls @ 100 mls/hr IV .[id number] [facility] Stop: 11/30/17 14:18 Last Admin: 11/30/17 04:19 Dose: 100 mls/hr Vancomycin HCl 750 mg/ Sodium (Chloride) 265 mls @ 250 mls/hr IV Q12H [facility] Labetalol HCl (Trandate) 10 mg IV Q4H PRN PRN PRN Reason: SBP > 160 Lisinopril (Zestril) 10 mg PO DAILY DRE Magnesium Hydroxide (Milk Of Magnesia) 30 ml PO DAILY PRN PRN PRN Reason: Constipation Nutritional Formula (Lactose Free) (Ensure Enlive) 120 ml PO 4X/DAY DRE Ondansetron HCl (Zofran) 4 mg IV Q8H PRN PRN PRN Reason: Nausea Senna/Docusate Sodium (Senokot-S, Radha-Colace) 1 tablet PO BID DRE Sodium Chloride () 5 - 30 ml IV UD PRN PRN Reason: SALINE FLUSH Last Admin: 11/30/17 06:14 Dose: 10 ml Medical Necessity - Tobacco Use Smoking Status: Never smoker Assessment/Plan All Active Problems Cellulitis (Acute) Altered mental status, unspecified (Acute) Sepsis affecting skin (Acute) Acute encephalopathy (Acute) Hip pain, right (Acute) Acute back pain (Acute) Patient is a 72-year-old lady with history of chronic back pain who underwent pain pump insertion in her right buttock on account of sciatica on 11/13/[address] Brown. Patient was brought to the emergency department due to functional decline and increasing lethargy. An assessment of pain pump infection made antibiotics initiated per protocol and patient admitted to regular nursing floor for subsequent management 1. Acute infectious encephalopathy secondary to pain pump infection 2. Pain pump infection with staph aureus: She has been admitted to regular nursing floor vancomycin and Zosyn started on admission after cultures have been obtained. Consultation was placed to infectious disease as well as Dr. Brown with pain management (case discussed with him) Plan is for removal of the foreign body. 3. Hypertension-blood pressure controlled, home medications continued with dose adjustment as needed 4. Sepsis ruled out criteria not met 5. Hypokalemia corrected per protocol 6. COPD currently not in exacerbation 7. DVT prophylaxis SC heparin CODE STATUS full code Active Medications Acetaminophen (Tylenol) 650 mg PO Q6H PRN PRN PRN Reason: Mild Pain (scale 0-3)/T>100.7 Last Admin: 11/30/17 10:10 Dose: 650 mg Albuterol Sulfate (Ventolin Aerosols) 2.5 mg INHALATION Q6HWA.RT DRE Last Admin: 11/30/17 06:49 Dose: 2.5 mg Budesonide (Pulmicort Aerosol) 0.5 mg INHALATION Q12H.RT DRE Last Admin: 11/30/17 06:49 Dose: 0.5 mg Heparin Sodium (Porcine) (Heparin Na) 5,000 unit SC Q8 [facility] Last Admin: 11/30/17 11:04 Dose: Not Given Hydrochlorothiazide (Hydrochlorothiazide) 12.5 mg PO DAILY [facility] Last Admin: 11/30/17 09:36 Dose: 12.5 mg Piperacillin Sod/Tazobactam Sod (Zosyn) 3.375 gm in 50 mls @ 12.5 mls/hr IV Q8 [facility] Last Admin: 11/30/17 06:12 Dose: 12.5 mls/hr Vancomycin IV Pharmacy to Dose (1,250 ea/ Sodium Chloride) 500 mls @ 250 mls/hr IV PRN PRN; Protocol Potassium Chloride 40 meq/ (Lactated Ringer's) 1,020 mls @ 100 mls/hr IV .[id number] [facility] Stop: 11/30/17 14:18 Last Admin: 11/30/17 04:19 Dose: 100 mls/hr Vancomycin HCl 750 mg/ Sodium (Chloride) 265 mls @ 250 mls/hr IV Q12H [facility] Labetalol HCl (Trandate) 10 mg IV Q4H PRN PRN PRN Reason: SBP > 160 Lisinopril (Zestril) 10 mg PO DAILY [facility] Last Admin: 11/30/17 09:36 Dose: 10 mg Magnesium Hydroxide (Milk Of Magnesia) 30 ml PO DAILY PRN PRN PRN Reason: Constipation Nutritional Formula (Lactose Free) (Ensure Enlive) 120 ml PO 4X/DAY [facility] Last Admin: 11/30/17 11:04 Dose: Not Given Ondansetron HCl (Zofran) 4 mg IV Q8H PRN PRN PRN Reason: Nausea Senna/Docusate Sodium (Senokot-S, Radha-Colace) 1 tablet PO BID [facility] Last Admin: 11/30/17 09:37 Dose: Not Given Sodium Chloride () 5 - 30 ml IV UD PRN PRN Reason: SALINE FLUSH Last Admin: 11/30/17 06:14 Dose: 10 ml Clinical Impression(s) from Imaging Studies Chest X-Ray 11/29/17 19:05 IMPRESSION: Mild cardiomegaly. No acute airspace disease. Electronically Signed: Javier Cordero DO at 20:01 EDT Tel , Service support , Brain CT 11/29/17 19:07 IMPRESSION: No acute intracranial pathology. Paranasal sinus disease. No change from yesterday. Electronically Signed: Javier Cordero DO at 20:00 EDT Tel , Service support , Code Visit Inpatient E&M: 28178 Subs Hosp L3
[2017-11-30] MEDS: HYDROCHLOROTHIAZIDE 12.5 MG CAPSULE PO (09:36)
[2017-11-30] MEDS: Lisinopril 10 MG Tablet PO (09:36)
[2017-11-30] MEDS: Acetaminophen 325 MG Tablet 650 MG PO (10:10)
--- NOTE | 2017-11-30 10:47 | NURSING ---
talked w/ infection disease specialist regarding mecA resistence marker on blood culture. isolation precautions ordered, painter helper and primary RN informed.
[2017-11-30 11:03] LABS: Protein, Urine (Random) 349.8 mg/dL (<11.9); Protein:Creat Ratio 2257 mg/g CRE (0-200)
--- NOTE | 2017-11-30 12:35 | US_ITS ---
STUDY: RENAL ULTRASOUND - COMPLETE REASON FOR EXAM: Female, 72 years old. History of acute encephalopathy sepsis TECHNIQUE: Ultrasound evaluation of the kidneys was performed with real-time and static cohen-scale imaging. COMPARISON: June 19, 2012 CT scan abdomen and pelvis with history of diverticulitis. FINDINGS: RIGHT KIDNEY: Normal location of the right kidney, which is normal in size. The right kidney measures 11.8 x 4.4 x 4.0 cm. There is a normal cortex of the right kidney. The renal cortex measures 1.2 cm. There is no right renal mass or cyst. There is a 4 mm stone right kidney. There is no right hydronephrosis. DISTAL RIGHT URETER: There is non-visualization of the distal right ureter. There is no demonstrated right ureterovesical junction calculus. There is a visualized right ureteral jet. LEFT KIDNEY: Normal location of the left kidney, which is normal in size. The left kidney measures 0.8 x 5.2 x 4.9 cm. There is a normal cortex of the left kidney. The renal cortex measures 1.7 cm. There is no left renal mass or cyst. There are no left renal calculi. There is no left hydronephrosis. DISTAL LEFT URETER: There is non-visualization of the distal left ureter. There is no demonstrated left ureterovesical junction calculus. There is a visualized left ureteral jet. BLADDER: The distended bladder contains 207 mL of urine. An empty bladder volume is not provided. The wall measures 3 mm. The sagittal view shows a mildly lobulated appearance of the anterior aspect of the bladder from right to left there is a cystic outpouching suggesting a possible bladder diverticulum that may measure 1.8 x 1.4 cm. US/Kidney and Bladder IMPRESSION: 4 mm stone right kidney no evidence of hydronephrosis. Possible bladder diverticulum allowing for partial decompression. Electronically Signed: Martha Enriquez MD at 15:28 EDT Tel , Service support ,
--- NOTE | 2017-11-30 12:37 | PCM.CONS.R ---
Consultation - Renal 11/30/17 PCP/ Referring MD: Requesting physician: José Perez Primary care physician: Ellie Daigle Reason for Consultation:: proteinuria - History of Present Illness History of Present Illness: The patient is a 72 year old F with a significant history of chronic back pain on pain pump, COPD; hypertension; upper and lower spine surgery, who presents with progressive weakness and lethargy with fever. She has not been feeling well for the past 2 weeks. Patient was seen in the emergency department a day before this admission at that time CT scan of the head showed sinus infection. She was discharged to home on Augmentin according to medical records. However patient denied any antibiotics. She denied any sinus congestion or cough. She does admit to a sore throat. She noticed diarrhea recently. Denied any abdominal pain, nausea, vomiting or myalgias. She is a questionable historian. Denied falling at home. She lives with a friend. Patient apparently was incontinent at home as well as in the emergency department on presentation. She was reported to have poor appetite. She complains of a headache. Blood culture sent on admission showed gram-positive cocci. She is currently on IV vancomycin and zosyn. She was found to be hypokalemic with creatinine improved from 1.0 on admit to 0.8 today with iv fluids. I was asked to see her on consult for proteinuria. She denied any history of hypertension or diabetes. She is not aware of having proteinuria in the past. She has no history of anemia that she is aware of. She denied any history of NSAID use. Spot urine protein creatinine ratio during this admission showed 2.2 g/g creatinine - Allergies Allergies: Allergies No Known Allergies Allergy (Verified 11/29/17 18:30) - Current Medications Current Medications: Current Medications Acetaminophen (Tylenol) 650 mg PO Q6H PRN PRN PRN Reason: Mild Pain (scale 0-3)/T>100.7 Last Admin: 11/30/17 10:10 Dose: 650 mg Albuterol Sulfate (Ventolin Aerosols) 2.5 mg INHALATION Q6HWA.RT DRE Last Admin: 11/30/17 06:49 Dose: 2.5 mg Budesonide (Pulmicort Aerosol) 0.5 mg INHALATION Q12H.RT DRE Last Admin: 11/30/17 06:49 Dose: 0.5 mg Heparin Sodium (Porcine) (Heparin Na) 5,000 unit SC Q8 [facility] Last Admin: 11/30/17 11:04 Dose: Not Given Hydrochlorothiazide (Hydrochlorothiazide) 12.5 mg PO DAILY [facility] Last Admin: 11/30/17 09:36 Dose: 12.5 mg Piperacillin Sod/Tazobactam Sod (Zosyn) 3.375 gm in 50 mls @ 12.5 mls/hr IV Q8 [facility] Last Admin: 11/30/17 06:12 Dose: 12.5 mls/hr Vancomycin IV Pharmacy to Dose (1,250 ea/ Sodium Chloride) 500 mls @ 250 mls/hr IV PRN PRN; Protocol Potassium Chloride 40 meq/ (Lactated Ringer's) 1,020 mls @ 100 mls/hr IV .[id number] [facility] Stop: 11/30/17 14:18 Last Admin: 11/30/17 04:19 Dose: 100 mls/hr Vancomycin HCl 750 mg/ Sodium (Chloride) 265 mls @ 250 mls/hr IV Q12H [facility] Labetalol HCl (Trandate) 10 mg IV Q4H PRN PRN PRN Reason: SBP > 160 Lisinopril (Zestril) 10 mg PO DAILY [facility] Last Admin: 11/30/17 09:36 Dose: 10 mg Magnesium Hydroxide (Milk Of Magnesia) 30 ml PO DAILY PRN PRN PRN Reason: Constipation Nutritional Formula (Lactose Free) (Ensure Enlive) 120 ml PO 4X/DAY [facility] Last Admin: 11/30/17 11:04 Dose: Not Given Ondansetron HCl (Zofran) 4 mg IV Q8H PRN PRN PRN Reason: Nausea Senna/Docusate Sodium (Senokot-S, Radha-Colace) 1 tablet PO BID [facility] Last Admin: 11/30/17 09:37 Dose: Not Given Sodium Chloride () 5 - 30 ml IV UD PRN PRN Reason: SALINE FLUSH Last Admin: 11/30/17 06:14 Dose: 10 ml - Past Medical History Past Medical History (Chronic Problems): Chronic Problems Chronic back pain (Chronic) Asthma (Chronic) HTN (hypertension) (Chronic) COPD (chronic obstructive pulmonary disease) (Chronic) - Past Surgical History Surgical History: appendectomy, cholecystectomy, hysterectomy, - - Hysterectomy, right knee arthroscopic surgery, left shoulder rotator cuff tear intervention, hernia repair, left total knee replacement, left knee arthroscopic surgery, right knee replacement, back surgery, left total hip arthroplasty, right total hip arthroplasty, appendectomy. - Social History Smoking Status: Never smoker - Family History Maternal History Items: COPD Paternal History Items: COPD, Heart Disease, Hypertension Review of Systems Constitutional: Reports: Anorexia, Fever, Malaise, Weakness, Fatigue. Denies: Chills Eyes: Denies: Vision Change HEENT: Reports: Head Aches, Sore Throat Cardiovascular: Denies: Chest Pain, Orthopnea, Palpitations, Syncope Respiratory: Denies: Cough, Shortness of Breath Gastrointestinal: Reports: Diarrhea. Denies: Abdominal Pain, Constipation, Nausea, Vomiting Genitourinary: Denies: Dysuria Musculoskeletal: Reports: Back Pain - On chronic pain medications. Denies: Joint stiffness, Joint swelling Skin: Denies: Rash Neurological: Denies: Balance problems Hematologic/ Lymphatic: Reports: Anemia. Denies: Hx of blood clot Patient Problems: Active and Suspected Problems Cellulitis (Acute) Altered mental status, unspecified (Acute) Sepsis affecting skin (Acute) Acute encephalopathy (Acute) - Physical Exam General: Alert, Oriented x3, Cooperative, No apparent distress HEENT: PERRLA, EOMI Oral: Dry Mucosa Neck: Supple Lungs: Clear to auscultation Cardiovascular: Regular rate Abdomen: Bowel Sounds Present, Soft, Non Tender, Non-Distended, Obese Extremities: No edema Skin: No rashes Musculoskeletal: No Muscle Wasting Lymphatic: No Cervical, Supraclavicular, or Inguinal Adenopathy Neurological: Cranial nerves II-XII grossly intact Psych/Mental Status: Flat Affect, Depressed, Alert and oriented to time, place, person, mood and affect Vital Signs Temp Pulse Resp BP Pulse Ox 99.8 F H 89 22 H 148/65 H 94 11/30/17 11:40 11/30/17 11:44 11/30/17 11:44 11/30/17 11:40 11/30/17 11:44 Oxygen Flow Rate (L/min) 2 Oxygen Delivery Method Nasal Cannula Weight: 79.8 kg Body Mass Index (BMI) 32.1 Intake and Output for Last 24 Hours 11/28/17 11/29/17 11/30/17 23:59 23:59 23:59 Intake Total 297 / 297 Balance 297 / 297 Microbiology Past 72 Hours 11/29/17 19:25 Blood Culture - Preliminary Blood Culture (Wb) - Venous 11/29/17 20:30 Bacteria Detection (PCR) - Final Blood Culture (Wb) - Anticubital Left Staphylococcus aureus mecA Resistance Marker Blood Culture - Preliminary Laboratory Tests Past 24 Hrs 11/29/17 11/29/17 11/29/17 19:25 19:25 19:25 WBC 10.7 RBC 3.46 L Hgb 9.8 L Hct 29.7 L MCV 85.8 MCH 28.3 MCHC 33.0 RDW 13.9 RDW Differential 42.5 Plt Count 229 MPV 9.4 Immature Gran % (Auto) 2.100 H Neut % (Auto) 83.8 H Lymph % (Auto) 2.7 L Barnes % (Auto) 11.0 H Eos % (Auto) 0.2 Baso % (Auto) 0.2 Absolute Neuts (auto) 9.0 H Absolute Lymphs (auto) 0.29 L Total Counted Not Reportable Neutrophils % (Manual) Lymphocytes % (Manual) Monocytes % (Manual) Basophils % (Manual) Myelocytes % Differential Comment Diff Path Review May foll Toxic Granulation Platelet Estimate RBC Morphology PT 14.0 INR 1.1 APTT 33.0 Sodium 136 Potassium 3.1 L Chloride 100 Carbon Dioxide 26.0 Anion Gap 10 BUN 28 H Creatinine 0.97 Estim Creat Clear Calc 51.73 Est GFR (MDRD) Af Amer 73 Est GFR (MDRD) Non-Af 60 BUN/Creatinine Ratio 29.0 H Glucose 130 H Lactic Acid Calcium 8.6 Total Bilirubin 0.40 AST 40 H ALT 34 Alkaline Phosphatase 102 C-React Prot Ext Range Total Protein 7.1 Albumin 2.5 L Globulin 4.6 H Albumin/Globulin Ratio 0.5 L Urine Color Urine Clarity Urine pH Ur Specific Oakes Urine Protein Urine Glucose (UA) Urine Ketones Urine Occult Blood Urine Nitrite Urine Bilirubin Urine Urobilinogen Ur Leukocyte Esterase Urine RBC Urine WBC Ur Squamous Epith Cells Amorphous Sediment Urine Bacteria Urine Mucus U Random Total Protein Urine Creatinine Protein/Creatinin Ratio 11/29/17 11/29/17 11/29/17 19:25 19:25 19:40 WBC RBC Hgb Hct MCV MCH MCHC RDW RDW Differential Plt Count MPV Immature Gran % (Auto) Neut % (Auto) Lymph % (Auto) Barnes % (Auto) Eos % (Auto) Baso % (Auto) Absolute Neuts (auto) Absolute Lymphs (auto) Total Counted Neutrophils % (Manual) Lymphocytes % (Manual) Monocytes % (Manual) Basophils % (Manual) Myelocytes % Differential Comment Diff Path Review Toxic Granulation Platelet Estimate RBC Morphology PT INR APTT Sodium Potassium Chloride Carbon Dioxide Anion Gap BUN Creatinine Estim Creat Clear Calc Est GFR (MDRD) Af Amer Est GFR (MDRD) Non-Af BUN/Creatinine Ratio Glucose Lactic Acid 1.3 Calcium Total Bilirubin AST ALT Alkaline Phosphatase C-React Prot Ext Range 287.00 H Total Protein Albumin Globulin Albumin/Globulin Ratio Urine Color Yellow Urine Clarity Clear Urine pH 6.0 Ur Specific Oakes 1.020 Urine Protein 500 H Urine Glucose (UA) Normal Urine Ketones 15 H Urine Occult Blood 50 H Urine Nitrite Negative Urine Bilirubin Negative Urine Urobilinogen 1 H Ur Leukocyte Esterase 25 H Urine RBC 0-5 SEEN Urine WBC 5-10 SEEN Ur Squamous Epith Cells 5-10 SEEN Amorphous Sediment 1+ Urine Bacteria 1+ Urine Mucus 1+ U Random Total Protein Urine Creatinine Protein/Creatinin Ratio 11/29/17 11/30/17 11/30/17 19:40 06:35 06:35 WBC 8.5 RBC 3.66 L Hgb 10.1 L Hct 31.2 L MCV 85.2 MCH 27.6 MCHC 32.4 RDW 14.3 RDW Differential 43.9 Plt Count 212 MPV 9.7 Immature Gran % (Auto) Neut % (Auto) Not Reportable Lymph % (Auto) Barnes % (Auto) Eos % (Auto) Baso % (Auto) Absolute Neuts (auto) 7.6 Absolute Lymphs (auto) 0.17 L Total Counted 100 Neutrophils % (Manual) 89 H Lymphocytes % (Manual) 2 L Monocytes % (Manual) 6 Basophils % (Manual) 2 H Myelocytes % 1 H Differential Comment 3+ Diff Path Review May foll Toxic Granulation 3+ Platelet Estimate ADEQUATE RBC Morphology NORM C+C PT INR APTT Sodium 137 Potassium 3.3 L Chloride 103 Carbon Dioxide 24.0 Anion Gap 10 BUN 28 H Creatinine 0.82 Estim Creat Clear Calc 49.77 Est GFR (MDRD) Af Amer 88 Est GFR (MDRD) Non-Af 73 BUN/Creatinine Ratio 34.1 H Glucose 119 H Lactic Acid Calcium 8.6 Total Bilirubin AST ALT Alkaline Phosphatase C-React Prot Ext Range Total Protein Albumin Globulin Albumin/Globulin Ratio Urine Color Urine Clarity Urine pH Ur Specific Oakes Urine Protein Urine Glucose (UA) Urine Ketones Urine Occult Blood Urine Nitrite Urine Bilirubin Urine Urobilinogen Ur Leukocyte Esterase Urine RBC Urine WBC Ur Squamous Epith Cells Amorphous Sediment Urine Bacteria Urine Mucus U Random Total Protein 349.8 H Urine Creatinine 155.00 Protein/Creatinin Ratio 2257 H Clinical Impression(s) from Imaging Studies Chest X-Ray 11/29/17 19:05 IMPRESSION: Mild cardiomegaly. No acute airspace disease. Electronically Signed: Javier Cordero DO at 20:01 EDT Tel , Service support , Brain CT 11/29/17 19:07 IMPRESSION: No acute intracranial pathology. Paranasal sinus disease. No change from yesterday. Electronically Signed: Javier Cordero DO at 20:00 EDT Tel , Service support , Assessment/Plan All Active Problems Cellulitis (Acute) Altered mental status, unspecified (Acute) Sepsis affecting skin (Acute) Acute encephalopathy (Acute) Hip pain, right (Acute) Acute back pain (Acute) 1. Proteinuria of unclear etiology. She has no history of diabetes. She is anemic. Will check protein electrophoresis and LORA. Will check [facility] records to see if she had prior urinalysis with protein. She has chronic pain but denies history of NSAID use. I would consider in my differential minimal change disease from NSAID use if she does have a history of chronic use for her chronic pain management. We will send off serology, NICKIE with reflex 2. Sepsis with lethargy. Fever persists. MRSA positive on blood culture. Currently on IV antibiotic therapy managed by primary care service. 3. Hypertension on blood pressure medications managed by primary service. 4. Chronic pain management. Patient denies use of NSAIDs 5. Generalized weakness and lethargy. Check CPK level.
--- NOTE | 2017-11-30 12:43 | CON.PCM_ITS ---
Consultation - Renal 11/30/17 PCP/ Referring MD: Requesting physician: José Perez Primary care physician: Ellie Daigle Reason for Consultation:: proteinuria - History of Present Illness History of Present Illness: The patient is a 72 year old F with a significant history of chronic back pain on pain pump, COPD; hypertension; upper and lower spine surgery, who presents with progressive weakness and lethargy with fever. She has not been feeling well for the past 2 weeks. Patient was seen in the emergency department a day before this admission at that time CT scan of the head showed sinus infection. She was discharged to home on Augmentin according to medical records. However patient denied any antibiotics. She denied any sinus congestion or cough. She does admit to a sore throat. She noticed diarrhea recently. Denied any abdominal pain, nausea, vomiting or myalgias. She is a questionable historian. Denied falling at home. She lives with a friend. Patient apparently was incontinent at home as well as in the emergency department on presentation. She was reported to have poor appetite. She complains of a headache. Blood culture sent on admission showed gram-positive cocci. She is currently on IV vancomycin and zosyn. She was found to be hypokalemic with creatinine improved from 1.0 on admit to 0.8 today with iv fluids. I was asked to see her on consult for proteinuria. She denied any history of hypertension or diabetes. She is not aware of having proteinuria in the past. She has no history of anemia that she is aware of. She denied any history of NSAID use. Spot urine protein creatinine ratio during this admission showed 2.2 g/g creatinine - Allergies Allergies: Allergies No Known Allergies Allergy (Verified 11/29/17 18:30) - Current Medications Current Medications: Current Medications Acetaminophen (Tylenol) 650 mg PO Q6H PRN PRN PRN Reason: Mild Pain (scale 0-3)/T>100.7 Last Admin: 11/30/17 10:10 Dose: 650 mg Albuterol Sulfate (Ventolin Aerosols) 2.5 mg INHALATION Q6HWA.RT DRE Last Admin: 11/30/17 06:49 Dose: 2.5 mg Budesonide (Pulmicort Aerosol) 0.5 mg INHALATION Q12H.RT DRE Last Admin: 11/30/17 06:49 Dose: 0.5 mg Heparin Sodium (Porcine) (Heparin Na) 5,000 unit SC Q8 [facility] Last Admin: 11/30/17 11:04 Dose: Not Given Hydrochlorothiazide (Hydrochlorothiazide) 12.5 mg PO DAILY [facility] Last Admin: 11/30/17 09:36 Dose: 12.5 mg Piperacillin Sod/Tazobactam Sod (Zosyn) 3.375 gm in 50 mls @ 12.5 mls/hr IV Q8 [facility] Last Admin: 11/30/17 06:12 Dose: 12.5 mls/hr Vancomycin IV Pharmacy to Dose (1,250 ea/ Sodium Chloride) 500 mls @ 250 mls/hr IV PRN PRN; Protocol Potassium Chloride 40 meq/ (Lactated Ringer's) 1,020 mls @ 100 mls/hr IV .Q10H 12M [facility] Stop: 11/30/17 14:18 Last Admin: 11/30/17 04:19 Dose: 100 mls/hr Vancomycin HCl 750 mg/ Sodium (Chloride) 265 mls @ 250 mls/hr IV Q12H [facility] Labetalol HCl (Trandate) 10 mg IV Q4H PRN PRN PRN Reason: SBP > 160 Lisinopril (Zestril) 10 mg PO DAILY [facility] Last Admin: 11/30/17 09:36 Dose: 10 mg Magnesium Hydroxide (Milk Of Magnesia) 30 ml PO DAILY PRN PRN PRN Reason: Constipation Nutritional Formula (Lactose Free) (Ensure Enlive) 120 ml PO 4X/DAY [facility] Last Admin: 11/30/17 11:04 Dose: Not Given Ondansetron HCl (Zofran) 4 mg IV Q8H PRN PRN PRN Reason: Nausea Senna/Docusate Sodium (Senokot-S, Radha-Colace) 1 tablet PO BID [facility] Last Admin: 11/30/17 09:37 Dose: Not Given Sodium Chloride () 5 - 30 ml IV UD PRN PRN Reason: SALINE FLUSH Last Admin: 11/30/17 06:14 Dose: 10 ml - Past Medical History Past Medical History (Chronic Problems): Chronic Problems Chronic back pain (Chronic) Asthma (Chronic) HTN (hypertension) (Chronic) COPD (chronic obstructive pulmonary disease) (Chronic) - Past Surgical History Surgical History: appendectomy, cholecystectomy, hysterectomy, - - Hysterectomy, right knee arthroscopic surgery, left shoulder rotator cuff tear intervention, hernia repair, left total knee replacement, left knee arthroscopic surgery, right knee replacement, back surgery, left total hip arthroplasty, right total hip arthroplasty, appendectomy. - Social History Smoking Status: Never smoker - Family History Maternal History Items: COPD Paternal History Items: COPD, Heart Disease, Hypertension Review of Systems Constitutional: Reports: Anorexia, Fever, Malaise, Weakness, Fatigue. Denies: Chills Eyes: Denies: Vision Change HEENT: Reports: Head Aches, Sore Throat Cardiovascular: Denies: Chest Pain, Orthopnea, Palpitations, Syncope Respiratory: Denies: Cough, Shortness of Breath Gastrointestinal: Reports: Diarrhea. Denies: Abdominal Pain, Constipation, Nausea, Vomiting Genitourinary: Denies: Dysuria Musculoskeletal: Reports: Back Pain - On chronic pain medications. Denies: Joint stiffness, Joint swelling Skin: Denies: Rash Neurological: Denies: Balance problems Hematologic/ Lymphatic: Reports: Anemia. Denies: Hx of blood clot Patient Problems: Active and Suspected Problems Cellulitis (Acute) Altered mental status, unspecified (Acute) Sepsis affecting skin (Acute) Acute encephalopathy (Acute) - Physical Exam General: Alert, Oriented x3, Cooperative, No apparent distress HEENT: PERRLA, EOMI Oral: Dry Mucosa Neck: Supple Lungs: Clear to auscultation Cardiovascular: Regular rate Abdomen: Bowel Sounds Present, Soft, Non Tender, Non-Distended, Obese Extremities: No edema Skin: No rashes Musculoskeletal: No Muscle Wasting Lymphatic: No Cervical, Supraclavicular, or Inguinal Adenopathy Neurological: Cranial nerves II-XII grossly intact Psych/Mental Status: Flat Affect, Depressed, Alert and oriented to time, place, person, mood and affect Vital Signs Temp Pulse Resp BP Pulse Ox 99.8 F H 89 22 H 148/65 H 94 11/30/17 11:40 11/30/17 11:44 11/30/17 11:44 11/30/17 11:40 11/30/17 11:44 Oxygen Flow Rate (L/min) 2 Oxygen Delivery Method Nasal Cannula Weight: 79.8 kg Body Mass Index (BMI) 32.1 Intake and Output for Last 24 Hours 11/28/17 11/29/17 11/30/17 23:59 23:59 23:59 Intake Total 297 / 297 Balance 297 / 297 Microbiology Past 72 Hours 11/29/17 19:25 Blood Culture - Preliminary Blood Culture (Wb) - Venous 11/29/17 20:30 Bacteria Detection (PCR) - Final Blood Culture (Wb) - Anticubital Left Staphylococcus aureus mecA Resistance Marker Blood Culture - Preliminary Laboratory Tests Past 24 Hrs 11/29/17 11/29/17 11/29/17 19:25 19:25 19:25 WBC 10.7 RBC 3.46 L Hgb 9.8 L Hct 29.7 L MCV 85.8 MCH 28.3 MCHC 33.0 RDW 13.9 RDW Differential 42.5 Plt Count 229 MPV 9.4 Immature Gran % (Auto) 2.100 H Neut % (Auto) 83.8 H Lymph % (Auto) 2.7 L Yancey % (Auto) 11.0 H Eos % (Auto) 0.2 Baso % (Auto) 0.2 Absolute Neuts (auto) 9.0 H Absolute Lymphs (auto) 0.29 L Total Counted Not Reportable Neutrophils % (Manual) Lymphocytes % (Manual) Monocytes % (Manual) Basophils % (Manual) Myelocytes % Differential Comment Diff Path Review May foll Toxic Granulation Platelet Estimate RBC Morphology PT 14.0 INR 1.1 APTT 33.0 Sodium 136 Potassium 3.1 L Chloride 100 Carbon Dioxide 26.0 Anion Gap 10 BUN 28 H Creatinine 0.97 Estim Creat Clear Calc 51.73 Est GFR (MDRD) Af Amer 73 Est GFR (MDRD) Non-Af 60 BUN/Creatinine Ratio 29.0 H Glucose 130 H Lactic Acid Calcium 8.6 Total Bilirubin 0.40 AST 40 H ALT 34 Alkaline Phosphatase 102 C-React Prot Ext Range Total Protein 7.1 Albumin 2.5 L Globulin 4.6 H Albumin/Globulin Ratio 0.5 L Urine Color Urine Clarity Urine pH Ur Specific [place] Urine Protein Urine Glucose (UA) Urine Ketones Urine Occult Blood Urine Nitrite Urine Bilirubin Urine Urobilinogen Ur Leukocyte Esterase Urine RBC Urine WBC Ur Squamous Epith Cells Amorphous Sediment Urine Bacteria Urine Mucus U Random Total Protein Urine Creatinine Protein/Creatinin Ratio 11/29/17 11/29/17 11/29/17 19:25 19:25 19:40 WBC RBC Hgb Hct MCV MCH MCHC RDW RDW Differential Plt Count MPV Immature Gran % (Auto) Neut % (Auto) Lymph % (Auto) Yancey % (Auto) Eos % (Auto) Baso % (Auto) Absolute Neuts (auto) Absolute Lymphs (auto) Total Counted Neutrophils % (Manual) Lymphocytes % (Manual) Monocytes % (Manual) Basophils % (Manual) Myelocytes % Differential Comment Diff Path Review Toxic Granulation Platelet Estimate RBC Morphology PT INR APTT Sodium Potassium Chloride Carbon Dioxide Anion Gap BUN Creatinine Estim Creat Clear Calc Est GFR (MDRD) Af Amer Est GFR (MDRD) Non-Af BUN/Creatinine Ratio Glucose Lactic Acid 1.3 Calcium Total Bilirubin AST ALT Alkaline Phosphatase C-React Prot Ext Range 287.00 H Total Protein Albumin Globulin Albumin/Globulin Ratio Urine Color Yellow Urine Clarity Clear Urine pH 6.0 Ur Specific [place] 1.020 Urine Protein 500 H Urine Glucose (UA) Normal Urine Ketones 15 H Urine Occult Blood 50 H Urine Nitrite Negative Urine Bilirubin Negative Urine Urobilinogen 1 H Ur Leukocyte Esterase 25 H Urine RBC 0-5 SEEN Urine WBC 5-10 SEEN Ur Squamous Epith Cells 5-10 SEEN Amorphous Sediment 1+ Urine Bacteria 1+ Urine Mucus 1+ U Random Total Protein Urine Creatinine Protein/Creatinin Ratio 11/29/17 11/30/17 11/30/17 19:40 06:35 06:35 WBC 8.5 RBC 3.66 L Hgb 10.1 L Hct 31.2 L MCV 85.2 MCH 27.6 MCHC 32.4 RDW 14.3 RDW Differential 43.9 Plt Count 212 MPV 9.7 Immature Gran % (Auto) Neut % (Auto) Not Reportable Lymph % (Auto) Yancey % (Auto) Eos % (Auto) Baso % (Auto) Absolute Neuts (auto) 7.6 Absolute Lymphs (auto) 0.17 L Total Counted 100 Neutrophils % (Manual) 89 H Lymphocytes % (Manual) 2 L Monocytes % (Manual) 6 Basophils % (Manual) 2 H Myelocytes % 1 H Differential Comment 3+ Diff Path Review May foll Toxic Granulation 3+ Platelet Estimate ADEQUATE RBC Morphology NORM C+C PT INR APTT Sodium 137 Potassium 3.3 L Chloride 103 Carbon Dioxide 24.0 Anion Gap 10 BUN 28 H Creatinine 0.82 Estim Creat Clear Calc 49.77 Est GFR (MDRD) Af Amer 88 Est GFR (MDRD) Non-Af 73 BUN/Creatinine Ratio 34.1 H Glucose 119 H Lactic Acid Calcium 8.6 Total Bilirubin AST ALT Alkaline Phosphatase C-React Prot Ext Range Total Protein Albumin Globulin Albumin/Globulin Ratio Urine Color Urine Clarity Urine pH Ur Specific [place] Urine Protein Urine Glucose (UA) Urine Ketones Urine Occult Blood Urine Nitrite Urine Bilirubin Urine Urobilinogen Ur Leukocyte Esterase Urine RBC Urine WBC Ur Squamous Epith Cells Amorphous Sediment Urine Bacteria Urine Mucus U Random Total Protein 349.8 H Urine Creatinine 155.00 Protein/Creatinin Ratio 2257 H Clinical Impression(s) from Imaging Studies Chest X-Ray 11/29/17 19:05 IMPRESSION: Mild cardiomegaly. No acute airspace disease. Electronically Signed: Javier Cordero DO at 20:01 EDT Tel , Service support , Brain CT 11/29/17 19:07 IMPRESSION: No acute intracranial pathology. Paranasal sinus disease. No change from yesterday. Electronically Signed: Javier Cordero DO at 20:00 EDT Tel , Service support , Assessment/Plan All Active Problems Cellulitis (Acute) Altered mental status, unspecified (Acute) Sepsis affecting skin (Acute) Acute encephalopathy (Acute) Hip pain, right (Acute) Acute back pain (Acute) 1. Proteinuria of unclear etiology. She has no history of diabetes. She is anemic. Will check protein electrophoresis and LORA. Will check [facility] records to see if she had prior urinalysis with protein. She has chronic pain but denies history of NSAID use. I would consider in my differential minimal change disease from NSAID use if she does have a history of chronic use for her chronic pain management. We will send off serology, NICKIE with reflex 2. Sepsis with lethargy. Fever persists. MRSA positive on blood culture. Currently on IV antibiotic therapy managed by primary care service. 3. Hypertension on blood pressure medications managed by primary service. 4. Chronic pain management. Patient denies use of NSAIDs 5. Generalized weakness and lethargy. Check CPK level.
[2017-11-30 12:55] LABS: Pathologist Review Reviewed
[2017-11-30 12:56] LABS: Pathologist Review Reviewed
--- NOTE | 2017-11-30 13:13 | ECHOD_ITS ---
Reason For Study: Murmur Procedure This was a 2D Doppler, Color Flow transthoracic echocardiogram. Unable to utilize Definity due to no IV access. The study was technically difficult. Exam performed portable in patient room. Left Ventricle Normal LV size. Left ventricular systolic function is normal. The estimated ejection fraction is 70 %. There is evidence of diastolic dysfunction. No regional wall motion abnormalities noted. Right Ventricle Normal RV size. Normal systolic function. Atria Normal left atrium. Normal right atrium. No doppler evidence for ASD. Mitral Valve There is mild mitral annular calcification. Normal mitral valve. Trivial mitral valve insufficiency. Tricuspid Valve Normal tricuspid valve. Trivial tricuspid valve insufficiency. Right ventricular systolic pressure estimated to be 35 mmHg. Aortic Valve Trisinus/trileaflet aortic valve. Normal aortic valve. Pulmonic Valve The pulmonic valve is not well visualized. Trivial pulmonic valve insufficiency. Great Vessels Normal sized aortic root. Pericardium/Pleural No pericardial effusion. MMode/2D Measurements & Calculations LVIDd: 4.4 cm IVSd: 0.94 cm LVOT diam: 2.0 cm LVIDs: 2.5 cm LVPWd: 0.90 cm LVOT area: 3.1 cm2 FS: 44.8 % Ao root diam: 3.0 cm LAV(MOD-bp): 61.6 ml LA A4 area: 18.8 cm2 LA dimension: 3.2 cm LAV(MOD-bp) Indexed: 34.1 ml/m2 LAV(MOD-sp2): 65.2 ml LAV(MOD-sp4): 49.3 ml RA A4 area: 16.0 cm2 Time Measurements MV dec time: 0.26 sec Doppler Measurements & Calculations MV E max varinder: 79.8 cm/sec Lat Peak E' Varinder: 7.9 cm/sec Med Peak E' Varinder: 8.3 cm/sec MV A max varinder: 115.5 cm/sec E/E' lat: 10.1 E/E' med: 9.7 MV E/A: 0.69 MV V2 max: 143.5 cm/sec MV P1/2t max varinder: 116.5 cm/sec Ao V2 max: 129.0 cm/sec MV max P.3 mmHg MV P1/2t: 71.3 msec Ao max P.7 mmHg MV V2 mean: 79.9 cm/sec MV dec slope: 478.9 cm/sec2 Ao V2 mean: 86.6 cm/sec MV mean P.0 mmHg MVA(P1/2t): 3.1 cm2 Ao mean P.5 mmHg MV V2 VTI: 37.8 cm Ao V2 VTI: 26.3 cm MVA(VTI): 1.6 cm2 ROSINA(I,D): 2.3 cm2 ROSINA(V,D): 2.5 cm2 LV V1 max: 104.6 cm/sec SV(LVOT): 60.5 ml PA V2 max: 116.5 cm/sec LV V1 max P.4 mmHg LV V1 mean P.9 mmHg LV V1 mean: 61.8 cm/sec LV V1 VTI: 19.3 cm TR max varinder: 280.7 cm/sec TR max P.5 mmHg Interpretation Summary The study was technically difficult. Left ventricular systolic function is normal. The estimated ejection fraction is 70 %. There is mild mitral annular calcification. Trivial mitral valve insufficiency. Trivial tricuspid valve insufficiency. Trivial pulmonic valve insufficiency. Right ventricular systolic pressure estimated to be 35 mmHg. There is evidence of diastolic dysfunction. Ordering Physician: Logan Pandey Referring Physician: Tony Dey Performed By: Brandon Buckner RCS
--- NOTE | 2017-11-30 13:30 | CASEMGMT ---
RN ARVIND Face to Face with patient for initial transition planning/care coordination assessment. RN CM introduced self and role at [facility]. Patient currently at ultrasound, per nursing patient is confused. Daughter Jeimy in room and willing to participate in assessment and is able to answer all questions appropriately. Care providers, pharmacy, and demographics verified. Per daughter, patient lives at home in 1 story home with significant other. Patient has BSC, raised toilet seat, cane, grab bars, walker, and wheelchair at home. Per daughter patient is normally independent at home and drives self. Patient has had [facility] HHC in the past. Daughter wishes patient to discharge home with possible HHC is patient is able to ambulate. Will also consider SNF if needed. Daughter states she has no further needs or concerns at this time. CM to follow for discharge planning needs that may arise. Disposition Plan: HHC vs SNF. Will monitor PT/OT notes and coarse of treatment. Renetta LOPEZ, RN, CM
[2017-11-30 14:26] LABS: CPK Total, Creatine Kinase 258 U/L (26-192)
--- NOTE | 2017-11-30 14:59 | PCM.HP.ID ---
Problem List (1) MRSA bacteremia Status: Acute Reason for Consult: bacteremia Consulted by: Dr. Perez History of Present Illness: The patient is a 72 year old F with spine stimulator placement 11/13/[address] Brown who presented 11/29 with 4-5 days of not feeling well, poor appetite, aches. Sx progressed with headache, generalized weakness, confusion, and fatigue. Went to ED, CT head done, given augmentin, sx continued to worsen, came back to ED and was admitted on vanc/zosyn. Mental status improved per daughter. Neph following. Stimulator removal planned. Also had recent cut on R leg but seems to have healed. ROS unobtainable due to mental status. - Medical History Past Medical History (Chronic Problems): Chronic Problems Chronic back pain (Chronic) Asthma (Chronic) HTN (hypertension) (Chronic) COPD (chronic obstructive pulmonary disease) (Chronic) Allergies/Adverse Reactions: Allergies No Known Allergies Allergy (Verified 11/29/17 18:30) Home Medications: Ambulatory Orders Medication Instructions Recorded Fluticasone/Salmeterol [Advair 1 puff INHALATION DAILY PRN 09/28/15 250/50 Mcg Diskus] Lisinopril/Hydrochlorothiazide 1 tablet PO DAILY 01/14/16 [Zestoretic 10/12.5 Tablet] Acetaminophen [Tylenol Tablet] 650 mg PO Q6 PRN 03/24/17 Senna/Docusate Sodium [Senokot-S] 1 tablet PO DAILY 11/10/17 Amox/Clavulanate Tablet [Augmentin 875 mg PO Q12H #20 tablet 11/28/17 Tablet] Ondansetron [Zofran Odt] 8 mg PO Q8H PRN PRN #10 tab 11/28/17 Potassium Cloride Effervescent 25 meq PO DAILY #7 tablet.eff 11/28/17 [Potassium Chl 25 Meq Eff (For Liquid)] - Social History SMOKING STATUS:: Never smoker Vital Signs Temp Pulse Resp BP Pulse Ox 99.8 F H 89 22 H 148/65 H 94 11/30/17 11:40 11/30/17 11:44 11/30/17 11:44 11/30/17 11:40 11/30/17 11:44 Oxygen Flow Rate (L/min) 2 Oxygen Delivery Method Nasal Cannula Weight: 79.8 kg Body Mass Index (BMI) 32.1 Microbiology Past 72 Hours 11/29/17 19:25 Blood Culture - Preliminary Blood Culture (Wb) - Venous 11/29/17 20:30 Bacteria Detection (PCR) - Final Blood Culture (Wb) - Anticubital Left Staphylococcus aureus mecA Resistance Marker Blood Culture - Preliminary Laboratory Tests Past 24 Hrs 11/29/17 11/29/17 11/29/17 19:25 19:25 19:25 WBC 10.7 RBC 3.46 L Hgb 9.8 L Hct 29.7 L MCV 85.8 MCH 28.3 MCHC 33.0 RDW 13.9 RDW Differential 42.5 Plt Count 229 MPV 9.4 Immature Gran % (Auto) 2.100 H Neut % (Auto) 83.8 H Lymph % (Auto) 2.7 L [place] % (Auto) 11.0 H Eos % (Auto) 0.2 Baso % (Auto) 0.2 Absolute Neuts (auto) 9.0 H Absolute Lymphs (auto) 0.29 L Total Counted Not Reportable Neutrophils % (Manual) Lymphocytes % (Manual) Monocytes % (Manual) Basophils % (Manual) Myelocytes % Differential Comment Diff Path Review Reviewed Toxic Granulation Platelet Estimate RBC Morphology PT 14.0 INR 1.1 APTT 33.0 Sodium 136 Potassium 3.1 L Chloride 100 Carbon Dioxide 26.0 Anion Gap 10 BUN 28 H Creatinine 0.97 Estim Creat Clear Calc 51.73 Est GFR (MDRD) Af Amer 73 Est GFR (MDRD) Non-Af 60 BUN/Creatinine Ratio 29.0 H Glucose 130 H Lactic Acid Calcium 8.6 Total Bilirubin 0.40 AST 40 H ALT 34 Alkaline Phosphatase 102 Total Creatine Kinase C-React Prot Ext Range Total Protein 7.1 Total Protein (PEP) Albumin 2.5 L Globulin 4.6 H Albumin/Globulin Ratio 0.5 L Urine Color Urine Clarity Urine pH Ur Specific [place] Urine Protein Urine Glucose (UA) Urine Ketones Urine Occult Blood Urine Nitrite Urine Bilirubin Urine Urobilinogen Ur Leukocyte Esterase Urine RBC Urine WBC Ur Squamous Epith Cells Amorphous Sediment Urine Bacteria Urine Mucus U Random Total Protein Urine Creatinine Protein/Creatinin Ratio IgG IgA IgM Albumin (LORA) Albumin/Globulin (LORA) Oldjn-1-Jipvrvqhe LORA Wsyrg-3-Trnsdgunp LORA Beta-Globulins (LORA) Gamma Globulins (LORA) LORA M-[place] Urine Immunofixation NICKIE Screen VARGHESE-1 Antibody SS-A/Ro IgG Antibody SS-B/La IgG Antibody Sm (Frost) Antibody [employer] MANAGER Antibody Scl-70 Scleroderma Ab Double Strand DNA Ab Centromere B Antibody 11/29/17 11/29/17 11/29/17 19:25 19:25 19:25 WBC RBC Hgb Hct MCV MCH MCHC RDW RDW Differential Plt Count MPV Immature Gran % (Auto) Neut % (Auto) Lymph % (Auto) [place] % (Auto) Eos % (Auto) Baso % (Auto) Absolute Neuts (auto) Absolute Lymphs (auto) Total Counted Neutrophils % (Manual) Lymphocytes % (Manual) Monocytes % (Manual) Basophils % (Manual) Myelocytes % Differential Comment Diff Path Review Toxic Granulation Platelet Estimate RBC Morphology PT INR APTT Sodium Potassium Chloride Carbon Dioxide Anion Gap BUN Creatinine Estim Creat Clear Calc Est GFR (MDRD) Af Amer Est GFR (MDRD) Non-Af BUN/Creatinine Ratio Glucose Lactic Acid 1.3 Calcium Total Bilirubin AST ALT Alkaline Phosphatase Total Creatine Kinase C-React Prot Ext Range 287.00 H Total Protein Total Protein (PEP) Pending Albumin Globulin Albumin/Globulin Ratio Urine Color Urine Clarity Urine pH Ur Specific [place] Urine Protein Urine Glucose (UA) Urine Ketones Urine Occult Blood Urine Nitrite Urine Bilirubin Urine Urobilinogen Ur Leukocyte Esterase Urine RBC Urine WBC Ur Squamous Epith Cells Amorphous Sediment Urine Bacteria Urine Mucus U Random Total Protein Urine Creatinine Protein/Creatinin Ratio IgG Pending IgA Pending IgM Pending Albumin (LORA) Pending Albumin/Globulin (LORA) Pending Smlri-6-Ctmhrgeen LORA Pending Kqwql-7-Kjkzoboax LORA Pending Beta-Globulins (LORA) Pending Gamma Globulins (LORA) Pending LORA M-[place] Pending Urine Immunofixation Pending NICKIE Screen VARGHESE-1 Antibody SS-A/Ro IgG Antibody SS-B/La IgG Antibody Sm (Frost) Antibody [employer] MANAGER Antibody Scl-70 Scleroderma Ab Double Strand DNA Ab Centromere B Antibody 11/29/17 11/29/17 11/29/17 19:25 19:40 19:40 WBC RBC Hgb Hct MCV MCH MCHC RDW RDW Differential Plt Count MPV Immature Gran % (Auto) Neut % (Auto) Lymph % (Auto) [place] % (Auto) Eos % (Auto) Baso % (Auto) Absolute Neuts (auto) Absolute Lymphs (auto) Total Counted Neutrophils % (Manual) Lymphocytes % (Manual) Monocytes % (Manual) Basophils % (Manual) Myelocytes % Differential Comment Diff Path Review Toxic Granulation Platelet Estimate RBC Morphology PT INR APTT Sodium Potassium Chloride Carbon Dioxide Anion Gap BUN Creatinine Estim Creat Clear Calc Est GFR (MDRD) Af Amer Est GFR (MDRD) Non-Af BUN/Creatinine Ratio Glucose Lactic Acid Calcium Total Bilirubin AST ALT Alkaline Phosphatase Total Creatine Kinase C-React Prot Ext Range Total Protein Total Protein (PEP) Albumin Globulin Albumin/Globulin Ratio Urine Color Yellow Urine Clarity Clear Urine pH 6.0 Ur Specific [place] 1.020 Urine Protein 500 H Urine Glucose (UA) Normal Urine Ketones 15 H Urine Occult Blood 50 H Urine Nitrite Negative Urine Bilirubin Negative Urine Urobilinogen 1 H Ur Leukocyte Esterase 25 H Urine RBC 0-5 SEEN Urine WBC 5-10 SEEN Ur Squamous Epith Cells 5-10 SEEN Amorphous Sediment 1+ Urine Bacteria 1+ Urine Mucus 1+ U Random Total Protein 349.8 H Urine Creatinine 155.00 Protein/Creatinin Ratio 2257 H IgG IgA IgM Albumin (LORA) Albumin/Globulin (LORA) Mbyaj-6-Klkrsnrkk LORA Tlmao-7-Pdysresfs LORA Beta-Globulins (LORA) Gamma Globulins (LORA) LORA M-[place] Urine Immunofixation NICKIE Screen Pending VARGHESE-1 Antibody Pending SS-A/Ro IgG Antibody Pending SS-B/La IgG Antibody Pending Sm (Frost) Antibody Pending [employer] MANAGER Antibody Pending Scl-70 Scleroderma Ab Pending Double Strand DNA Ab Pending Centromere B Antibody Pending 11/30/17 11/30/17 11/30/17 05:35 06:35 06:35 WBC 8.5 RBC 3.66 L Hgb 10.1 L Hct 31.2 L MCV 85.2 MCH 27.6 MCHC 32.4 RDW 14.3 RDW Differential 43.9 Plt Count 212 MPV 9.7 Immature Gran % (Auto) Neut % (Auto) Not Reportable Lymph % (Auto) [place] % (Auto) Eos % (Auto) Baso % (Auto) Absolute Neuts (auto) 7.6 Absolute Lymphs (auto) 0.17 L Total Counted 100 Neutrophils % (Manual) 89 H Lymphocytes % (Manual) 2 L Monocytes % (Manual) 6 Basophils % (Manual) 2 H Myelocytes % 1 H Differential Comment 3+ Diff Path Review Reviewed Toxic Granulation 3+ Platelet Estimate ADEQUATE RBC Morphology NORM C+C PT INR APTT Sodium 137 Potassium 3.3 L Chloride 103 Carbon Dioxide 24.0 Anion Gap 10 BUN 28 H Creatinine 0.82 Estim Creat Clear Calc 49.77 Est GFR (MDRD) Af Amer 88 Est GFR (MDRD) Non-Af 73 BUN/Creatinine Ratio 34.1 H Glucose 119 H Lactic Acid Calcium 8.6 Total Bilirubin AST ALT Alkaline Phosphatase Total Creatine Kinase 258 H C-React Prot Ext Range Total Protein Total Protein (PEP) Albumin Globulin Albumin/Globulin Ratio Urine Color Urine Clarity Urine pH Ur Specific [place] Urine Protein Urine Glucose (UA) Urine Ketones Urine Occult Blood Urine Nitrite Urine Bilirubin Urine Urobilinogen Ur Leukocyte Esterase Urine RBC Urine WBC Ur Squamous Epith Cells Amorphous Sediment Urine Bacteria Urine Mucus U Random Total Protein Urine Creatinine Protein/Creatinin Ratio IgG IgA IgM Albumin (LORA) Albumin/Globulin (LORA) Aumvv-6-Ihdzlkmwp LORA Pslsx-1-Xbkgraqar LORA Beta-Globulins (LORA) Gamma Globulins (LORA) LORA M-[place] Urine Immunofixation NICKIE Screen VARGHESE-1 Antibody SS-A/Ro IgG Antibody SS-B/La IgG Antibody Sm (Frost) Antibody [employer] MANAGER Antibody Scl-70 Scleroderma Ab Double Strand DNA Ab Centromere B Antibody - Other Studies Radiology: [] reviewed Other Studies: [] Route of nutrition/ use of supplements: [] Nutritional Intake: [] IV Site: [] Painting Catheter: [] - Physical Exam General: Oriented x3, No apparent distress, Lethargic, - - able to follow some commands HEENT: Atraumatic, PERRLA, EOMI Neck: Supple, No Nodes Lungs: Clear to auscultation, Normal air movement Cardiovascular: Regular rate, Regular Rhythm Abdomen: Soft, Non Tender, Non-Distended Extremities: Edema - mild BLE Skin: No rashes, - - no janeway/osler/splinter hemorrhages on hands or feet IV Site: Peripheral, without redness Musculoskeletal: No Tenderness to Palpation of Joints or Extremities Neurological: Cranial nerves II-XII grossly intact - Assessment/Plan Antibiotics: [] Assessment/Plan: [] Active and Suspected Problems Cellulitis (Acute) Altered mental status, unspecified (Acute) Sepsis affecting skin (Acute) Acute encephalopathy (Acute) MRSA bacteremia - concern for recent spine stimulator placement as source. Removal planned. Will repeat bcx and check TTE. Stop zosyn, continue vanc. Given headache and confusion with risk of septic emboli, will order brain mri once device has been removed. Will follow, thank you.
--- NOTE | 2017-11-30 15:04 | CON.PCM_ITS ---
Problem List (1) MRSA bacteremia Status: Acute Reason for Consult: bacteremia Consulted by: Dr. Perez History of Present Illness: The patient is a 72 year old F with spine stimulator placement 11/13/[address] Brown who presented 11/29 with 4-5 days of not feeling well, poor appetite, aches. Sx progressed with headache, generalized weakness, confusion, and fatigue. Went to ED, CT head done, given augmentin, sx continued to worsen, came back to ED and was admitted on vanc/zosyn. Mental status improved per daughter. Neph following. Stimulator removal planned. Also had recent cut on R leg but seems to have healed. ROS unobtainable due to mental status. - Medical History Past Medical History (Chronic Problems): Chronic Problems Chronic back pain (Chronic) Asthma (Chronic) HTN (hypertension) (Chronic) COPD (chronic obstructive pulmonary disease) (Chronic) Allergies/Adverse Reactions: Allergies No Known Allergies Allergy (Verified 11/29/17 18:30) Home Medications: Ambulatory Orders Medication Instructions Recorded Fluticasone/Salmeterol [Advair 1 puff INHALATION DAILY PRN 09/28/15 250/50 Mcg Diskus] Lisinopril/Hydrochlorothiazide 1 tablet PO DAILY 01/14/16 [Zestoretic 10/12.5 Tablet] Acetaminophen [Tylenol Tablet] 650 mg PO Q6 PRN 03/24/17 Senna/Docusate Sodium [Senokot-S] 1 tablet PO DAILY 11/10/17 Amox/Clavulanate Tablet [Augmentin 875 mg PO Q12H #20 tablet 11/28/17 Tablet] Ondansetron [Zofran Odt] 8 mg PO Q8H PRN PRN #10 tab 11/28/17 Potassium Cloride Effervescent 25 meq PO DAILY #7 tablet.eff 11/28/17 [Potassium Chl 25 Meq Eff (For Liquid)] - Social History SMOKING STATUS:: Never smoker Vital Signs Temp Pulse Resp BP Pulse Ox 99.8 F H 89 22 H 148/65 H 94 11/30/17 11:40 11/30/17 11:44 11/30/17 11:44 11/30/17 11:40 11/30/17 11:44 Oxygen Flow Rate (L/min) 2 Oxygen Delivery Method Nasal Cannula Weight: 79.8 kg Body Mass Index (BMI) 32.1 Microbiology Past 72 Hours 11/29/17 19:25 Blood Culture - Preliminary Blood Culture (Wb) - Venous 11/29/17 20:30 Bacteria Detection (PCR) - Final Blood Culture (Wb) - Anticubital Left Staphylococcus aureus mecA Resistance Marker Blood Culture - Preliminary Laboratory Tests Past 24 Hrs 11/29/17 11/29/17 11/29/17 19:25 19:25 19:25 WBC 10.7 RBC 3.46 L Hgb 9.8 L Hct 29.7 L MCV 85.8 MCH 28.3 MCHC 33.0 RDW 13.9 RDW Differential 42.5 Plt Count 229 MPV 9.4 Immature Gran % (Auto) 2.100 H Neut % (Auto) 83.8 H Lymph % (Auto) 2.7 L [place] % (Auto) 11.0 H Eos % (Auto) 0.2 Baso % (Auto) 0.2 Absolute Neuts (auto) 9.0 H Absolute Lymphs (auto) 0.29 L Total Counted Not Reportable Neutrophils % (Manual) Lymphocytes % (Manual) Monocytes % (Manual) Basophils % (Manual) Myelocytes % Differential Comment Diff Path Review Reviewed Toxic Granulation Platelet Estimate RBC Morphology PT 14.0 INR 1.1 APTT 33.0 Sodium 136 Potassium 3.1 L Chloride 100 Carbon Dioxide 26.0 Anion Gap 10 BUN 28 H Creatinine 0.97 Estim Creat Clear Calc 51.73 Est GFR (MDRD) Af Amer 73 Est GFR (MDRD) Non-Af 60 BUN/Creatinine Ratio 29.0 H Glucose 130 H Lactic Acid Calcium 8.6 Total Bilirubin 0.40 AST 40 H ALT 34 Alkaline Phosphatase 102 Total Creatine Kinase C-React Prot Ext Range Total Protein 7.1 Total Protein (PEP) Albumin 2.5 L Globulin 4.6 H Albumin/Globulin Ratio 0.5 L Urine Color Urine Clarity Urine pH Ur Specific [place] Urine Protein Urine Glucose (UA) Urine Ketones Urine Occult Blood Urine Nitrite Urine Bilirubin Urine Urobilinogen Ur Leukocyte Esterase Urine RBC Urine WBC Ur Squamous Epith Cells Amorphous Sediment Urine Bacteria Urine Mucus U Random Total Protein Urine Creatinine Protein/Creatinin Ratio IgG IgA IgM Albumin (LORA) Albumin/Globulin (LORA) Neinq-2-Mvvenqcpi LORA Ctngm-1-Qvhtvumbr LORA Beta-Globulins (LORA) Gamma Globulins (LORA) LORA M-[place] Urine Immunofixation NICKIE Screen VARGHESE-1 Antibody SS-A/Ro IgG Antibody SS-B/La IgG Antibody Sm (Frost) Antibody GUT CLEANER Antibody Scl-70 Scleroderma Ab Double Strand DNA Ab Centromere B Antibody 11/29/17 11/29/17 11/29/17 19:25 19:25 19:25 WBC RBC Hgb Hct MCV MCH MCHC RDW RDW Differential Plt Count MPV Immature Gran % (Auto) Neut % (Auto) Lymph % (Auto) [place] % (Auto) Eos % (Auto) Baso % (Auto) Absolute Neuts (auto) Absolute Lymphs (auto) Total Counted Neutrophils % (Manual) Lymphocytes % (Manual) Monocytes % (Manual) Basophils % (Manual) Myelocytes % Differential Comment Diff Path Review Toxic Granulation Platelet Estimate RBC Morphology PT INR APTT Sodium Potassium Chloride Carbon Dioxide Anion Gap BUN Creatinine Estim Creat Clear Calc Est GFR (MDRD) Af Amer Est GFR (MDRD) Non-Af BUN/Creatinine Ratio Glucose Lactic Acid 1.3 Calcium Total Bilirubin AST ALT Alkaline Phosphatase Total Creatine Kinase C-React Prot Ext Range 287.00 H Total Protein Total Protein (PEP) Pending Albumin Globulin Albumin/Globulin Ratio Urine Color Urine Clarity Urine pH Ur Specific [place] Urine Protein Urine Glucose (UA) Urine Ketones Urine Occult Blood Urine Nitrite Urine Bilirubin Urine Urobilinogen Ur Leukocyte Esterase Urine RBC Urine WBC Ur Squamous Epith Cells Amorphous Sediment Urine Bacteria Urine Mucus U Random Total Protein Urine Creatinine Protein/Creatinin Ratio IgG Pending IgA Pending IgM Pending Albumin (LORA) Pending Albumin/Globulin (LORA) Pending [place]-9-Ydvdbdvla LORA Pending Cjpfj-8-Srulgbrzt LORA Pending Beta-Globulins (LORA) Pending Gamma Globulins (LORA) Pending LORA M-[place] Pending Urine Immunofixation Pending NICKIE Screen VARGHESE-1 Antibody SS-A/Ro IgG Antibody SS-B/La IgG Antibody Sm (Frost) Antibody GUT CLEANER Antibody Scl-70 Scleroderma Ab Double Strand DNA Ab Centromere B Antibody 11/29/17 11/29/17 11/29/17 19:25 19:40 19:40 WBC RBC Hgb Hct MCV MCH MCHC RDW RDW Differential Plt Count MPV Immature Gran % (Auto) Neut % (Auto) Lymph % (Auto) [place] % (Auto) Eos % (Auto) Baso % (Auto) Absolute Neuts (auto) Absolute Lymphs (auto) Total Counted Neutrophils % (Manual) Lymphocytes % (Manual) Monocytes % (Manual) Basophils % (Manual) Myelocytes % Differential Comment Diff Path Review Toxic Granulation Platelet Estimate RBC Morphology PT INR APTT Sodium Potassium Chloride Carbon Dioxide Anion Gap BUN Creatinine Estim Creat Clear Calc Est GFR (MDRD) Af Amer Est GFR (MDRD) Non-Af BUN/Creatinine Ratio Glucose Lactic Acid Calcium Total Bilirubin AST ALT Alkaline Phosphatase Total Creatine Kinase C-React Prot Ext Range Total Protein Total Protein (PEP) Albumin Globulin Albumin/Globulin Ratio Urine Color Yellow Urine Clarity Clear Urine pH 6.0 Ur Specific [place] 1.020 Urine Protein 500 H Urine Glucose (UA) Normal Urine Ketones 15 H Urine Occult Blood 50 H Urine Nitrite Negative Urine Bilirubin Negative Urine Urobilinogen 1 H Ur Leukocyte Esterase 25 H Urine RBC 0-5 SEEN Urine WBC 5-10 SEEN Ur Squamous Epith Cells 5-10 SEEN Amorphous Sediment 1+ Urine Bacteria 1+ Urine Mucus 1+ U Random Total Protein 349.8 H Urine Creatinine 155.00 Protein/Creatinin Ratio 2257 H IgG IgA IgM Albumin (LORA) Albumin/Globulin (LORA) Qwgxz-8-Nysepdtcw LORA Liwcn-7-Ukompsbke LORA Beta-Globulins (LORA) Gamma Globulins (LORA) LORA M-[place] Urine Immunofixation NICKIE Screen Pending VARGHESE-1 Antibody Pending SS-A/Ro IgG Antibody Pending SS-B/La IgG Antibody Pending Sm (Frost) Antibody Pending GUT CLEANER Antibody Pending Scl-70 Scleroderma Ab Pending Double Strand DNA Ab Pending Centromere B Antibody Pending 11/30/17 11/30/17 11/30/17 05:35 06:35 06:35 WBC 8.5 RBC 3.66 L Hgb 10.1 L Hct 31.2 L MCV 85.2 MCH 27.6 MCHC 32.4 RDW 14.3 RDW Differential 43.9 Plt Count 212 MPV 9.7 Immature Gran % (Auto) Neut % (Auto) Not Reportable Lymph % (Auto) [place] % (Auto) Eos % (Auto) Baso % (Auto) Absolute Neuts (auto) 7.6 Absolute Lymphs (auto) 0.17 L Total Counted 100 Neutrophils % (Manual) 89 H Lymphocytes % (Manual) 2 L Monocytes % (Manual) 6 Basophils % (Manual) 2 H Myelocytes % 1 H Differential Comment 3+ Diff Path Review Reviewed Toxic Granulation 3+ Platelet Estimate ADEQUATE RBC Morphology NORM C+C PT INR APTT Sodium 137 Potassium 3.3 L Chloride 103 Carbon Dioxide 24.0 Anion Gap 10 BUN 28 H Creatinine 0.82 Estim Creat Clear Calc 49.77 Est GFR (MDRD) Af Amer 88 Est GFR (MDRD) Non-Af 73 BUN/Creatinine Ratio 34.1 H Glucose 119 H Lactic Acid Calcium 8.6 Total Bilirubin AST ALT Alkaline Phosphatase Total Creatine Kinase 258 H C-React Prot Ext Range Total Protein Total Protein (PEP) Albumin Globulin Albumin/Globulin Ratio Urine Color Urine Clarity Urine pH Ur Specific [place] Urine Protein Urine Glucose (UA) Urine Ketones Urine Occult Blood Urine Nitrite Urine Bilirubin Urine Urobilinogen Ur Leukocyte Esterase Urine RBC Urine WBC Ur Squamous Epith Cells Amorphous Sediment Urine Bacteria Urine Mucus U Random Total Protein Urine Creatinine Protein/Creatinin Ratio IgG IgA IgM Albumin (LORA) Albumin/Globulin (LORA) Vmhvp-4-Uclndowwh LORA Gauuv-1-Pwbyrrprg LORA Beta-Globulins (LORA) Gamma Globulins (LORA) LORA M-[place] Urine Immunofixation NICKIE Screen VARGHESE-1 Antibody SS-A/Ro IgG Antibody SS-B/La IgG Antibody Sm (Frost) Antibody GUT CLEANER Antibody Scl-70 Scleroderma Ab Double Strand DNA Ab Centromere B Antibody - Other Studies Radiology: [] reviewed Other Studies: [] Route of nutrition/ use of supplements: [] Nutritional Intake: [] IV Site: [] Painting Catheter: [] - Physical Exam General: Oriented x3, No apparent distress, Lethargic, - - able to follow some commands HEENT: Atraumatic, PERRLA, EOMI Neck: Supple, No Nodes Lungs: Clear to auscultation, Normal air movement Cardiovascular: Regular rate, Regular Rhythm Abdomen: Soft, Non Tender, Non-Distended Extremities: Edema - mild BLE Skin: No rashes, - - no janeway/osler/splinter hemorrhages on hands or feet IV Site: Peripheral, without redness Musculoskeletal: No Tenderness to Palpation of Joints or Extremities Neurological: Cranial nerves II-XII grossly intact - Assessment/Plan Antibiotics: [] Assessment/Plan: [] Active and Suspected Problems Cellulitis (Acute) Altered mental status, unspecified (Acute) Sepsis affecting skin (Acute) Acute encephalopathy (Acute) MRSA bacteremia - concern for recent spine stimulator placement as source. Removal planned. Will repeat bcx and check TTE. Stop zosyn, continue vanc. Given headache and confusion with risk of septic emboli, will order brain mri once device has been removed. Will follow, thank you.
[2017-11-30 18:44] LABS: M R Staph aureus DNA By PCR POSITIVE (Negative); Probe Check PASS; Staph aureus DNA By PCR POSITIVE (Negative)
[2017-11-30 18:44] LABS: M R Staph aureus DNA By PCR POSITIVE (Negative); Probe Check PASS; Staph aureus DNA By PCR POSITIVE (Negative)
--- NOTE | 2017-11-30 21:22 | NURSING ---
Addendum entered by Nikole Candelaria 11/30/17 21:23: form faxed to radiology Original Note: MRI form completed with daughter Melani over phone.
[2017-11-30] MEDS: Senna/Docusate Sodium 1 Tablet PO (22:23)
[2017-12-01] VITALS (13 sets, daily range): BP systolic 126–161; BP diastolic 56–74; PULSE 78–99; RESP 18–22; TEMP 36.5–39.4; O2SAT 93–95
--- NOTE | 2017-12-01 06:00 | MRI_ITS ---
STUDY: MRI BRAIN WITH AND WITHOUT CONTRAST REASON FOR EXAM: Female, 72 years old. Confusion. Recent removal of spinal stimulator due to infection. TECHNIQUE: Standardized multiplanar fat and water weighted pulse sequences were obtained. 7 ml of Gadavist contrast material was administered intravenously for the contrast portion of the examination. COMPARISON: None. FINDINGS: Normal size of the ventricles and extra-axial spaces for the patient's age. Normal white matter tracts of the supratentorial brain. Normal bilateral basal ganglia. Normal thalami. There is no extra-axial fluid accumulation. Normal flow voids within the major intracranial circulation suggesting patency by spin echo criteria. Normal venous enhancement. There is no enhancing intra-axial or extra-axial abnormality. Normal sella turcica, pituitary gland, infundibular stalk, optic chiasm and hypothalamus. Normal tectal plate and pineal gland. Normal midbrain, ana and medulla. Normal cerebellum. Normal basal cisterns. Normal bilateral temporal bones. Normal bilateral internal auditory canals. No demonstrated orbital abnormality, within the constraints of a routine brain study. Normal visualized paranasal sinuses. Normal calvarium and skull base. Normal visualized soft tissue structures. Normal visualized upper cervical spine. MRI/Brain W/WO Contrast IMPRESSION: Normal unenhanced and enhanced MRI of the brain. Electronically Signed: Wil Vazquez MD at 12:34 EDT , Service support ,
[2017-12-01] MEDS: Albuterol 2.5 MG/3 ML VIAL.NEB. INHALATION ×3 (06:31→19:33)
[2017-12-01] MEDS: Budesonide Respules 0.5 MG/2 ML AMPUL.NEB. INHALATION ×2 (06:31→19:33)
[2017-12-01] MEDS: Heparin Injection (Vial) 5,000 UNIT/ML VIAL 5000 UNIT SC ×3 (06:38→21:05)
--- NOTE | 2017-12-01 07:38 | PN_ITS ---
Patient Problems: Active and Suspected Problems Cellulitis (Acute) Altered mental status, unspecified (Acute) Sepsis affecting skin (Acute) Acute encephalopathy (Acute) MRSA bacteremia (Acute) Subjective: Patient underwent hardware (pain pump as well as pain stimulator from the back) removal by Dr. Brown on 11/30/2017. Blood cultures obtained on admission positive for Staphylococcus aureus with meca resistance patient was seen in consultation by Dr. Pandey with infectious disease who recommended for patient undergo TTE as well as MRI. MRI is still pending. Awaiting verification from patient's daughter where the patient has hardware in the neck Objective: GENERAL: Lethargic HEENT: Atraumatic; moist oral mucosa EYES; Anicteric, Normal Conjunctiva NECK; supple, normal thyroid, no distended JVD. RESPIRATORY: Diminished to auscultation bilaterally, CARDIOVASCULAR: Regular S1 S2, no audible murmurs GI: soft, non-tender, normoactive bowel sounds, : No Renal angle tenderness; No ibarra EXTREMITIES: An area of induration on the right buttock with some warmth and erythema MUSCULOSKELTAL: No Joint Tenderness; no muscle waisting NEURO: Awake; no lateralizing signs. SKIN: Erythema right buttock PSYCH; flat affect Vitals/I&O's: Vital Signs Temp Pulse Resp BP Pulse Ox 100.0 F H 99 20 H 156/70 H 94 12/01/17 04:00 12/01/17 04:00 12/01/17 04:00 12/01/17 04:00 12/01/17 04:00 Oxygen Flow Rate (L/min) 3 Oxygen Delivery Method Nasal Cannula Weight: 79.8 kg Body Mass Index (BMI) 32.1 Intake and Output for Last 24 Hours 11/29/17 11/30/17 12/01/17 23:59 23:59 23:59 Intake Total 897 / 897 1584 / 1584 Balance 897 / 897 1584 / 1584 Microbiology Past 72 Hours 11/29/17 19:25 Blood Culture (Wb) - Venous Blood Culture - Preliminary Staphylococcus aureus 11/29/17 20:30 Blood Culture (Wb) - Anticubital Left Bacteria Detection (PCR) - Final Staphylococcus aureus mecA Resistance Marker 11/29/17 20:30 Blood Culture (Wb) - Anticubital Left Blood Culture - Preliminary Staphylococcus aureus Laboratory Results 11/29/17 19:25: Diff Path Review Reviewed 11/29/17 19:25: Total Protein (PEP) Pending, IgG Pending, IgA Pending, IgM Pending, Albumin (LORA) Pending, Albumin/Globulin (LORA) Pending, Xgeea-2-Fbvsdopdc LORA Pending, Pamwg-5-Tikrpxpkr LORA Pending, Beta-Globulins (LORA) Pending, Gamma Globulins (LORA) Pending, LORA M-Wellington Pending, Urine Immunofixation Pending 11/29/17 19:25: NICKIE Screen Pending, VARGHESE-1 Antibody Pending, SS-A/Ro IgG Antibody Pending, SS-B/La IgG Antibody Pending, Sm (Frost) Antibody Pending, PLANTING SUPERVISOR Antibody Pending, Scl-70 Scleroderma Ab Pending, Double Strand DNA Ab Pending, Centromere B Antibody Pending 11/29/17 19:40: U Random Total Protein 349.8 H, Urine Creatinine 155.00, Protein/Creatinin Ratio 2257 H 11/30/17 05:35: Total Creatine Kinase 258 H 11/30/17 06:35: Diff Path Review Reviewed 11/30/17 16:16: S.aureus Protein A PCR POSITIVE H, MRSA (PCR) POSITIVE H 11/30/17 16:20: S.aureus Protein A PCR POSITIVE H, MRSA (PCR) POSITIVE H Current Medications Acetaminophen (Tylenol) 650 mg PO Q6H PRN PRN PRN Reason: Mild Pain (scale 0-3)/T>100.7 Last Admin: 11/30/17 10:10 Dose: 650 mg Albuterol Sulfate (Ventolin Aerosols) 2.5 mg INHALATION Q6HWA.RT [facility] Last Admin: 12/01/17 06:31 Dose: 2.5 mg Budesonide (Pulmicort Aerosol) 0.5 mg INHALATION Q12H.RT [facility] Last Admin: 12/01/17 06:31 Dose: 0.5 mg Heparin Sodium (Porcine) (Heparin Na) 5,000 unit SC Q8 [facility] Last Admin: 12/01/17 06:38 Dose: 5,000 unit Hydrochlorothiazide (Hydrochlorothiazide) 12.5 mg PO DAILY [facility] Last Admin: 11/30/17 09:36 Dose: 12.5 mg Vancomycin IV Pharmacy to Dose (1,250 ea/ Sodium Chloride) 500 mls @ 250 mls/hr IV PRN PRN; Protocol Vancomycin HCl 750 mg/ Sodium (Chloride) 265 mls @ 250 mls/hr IV Q12H [facility] Last Admin: 12/01/17 06:38 Dose: 250 mls/hr Potassium Chloride 40 meq/ (Dextrose) 1,020 mls @ 75 mls/hr IV .[id number] [facility] Stop: 12/01/17 21:41 Last Admin: 11/30/17 21:34 Dose: 75 mls/hr Labetalol HCl (Trandate) 10 mg IV Q4H PRN PRN PRN Reason: SBP > 160 Lisinopril (Zestril) 10 mg PO DAILY [facility] Last Admin: 11/30/17 09:36 Dose: 10 mg Magnesium Hydroxide (Milk Of Magnesia) 30 ml PO DAILY PRN PRN PRN Reason: Constipation Nutritional Formula (Lactose Free) (Ensure Enlive) 120 ml PO 4X/DAY [facility] Last Admin: 11/30/17 22:23 Dose: 120 ml Ondansetron HCl (Zofran) 4 mg IV Q8H PRN PRN PRN Reason: Nausea Senna/Docusate Sodium (Senokot-S, Radha-Colace) 1 tablet PO BID [facility] Last Admin: 11/30/17 22:23 Dose: 1 tablet Sodium Chloride () 5 - 30 ml IV UD PRN PRN Reason: SALINE FLUSH Last Admin: 11/30/17 06:14 Dose: 10 ml Medical Necessity - Tobacco Use Smoking Status: Never smoker Assessment/Plan All Active Problems Cellulitis (Acute) Altered mental status, unspecified (Acute) Sepsis affecting skin (Acute) Acute encephalopathy (Acute) MRSA bacteremia (Acute) Hip pain, right (Acute) Acute back pain (Acute) Patient is a 72-year-old lady with history of chronic back pain who underwent pa in pump insertion in her right buttock on account of sciatica on 11/13/[address] Brown. Patient was brought to the emergency department due to functional decline and increasing lethargy. An assessment of pain pump infection made antibiotics initiated per protocol and patient admitted to regular nursing floor for subsequent management 1. Acute infectious encephalopathy secondary to pain pump infection 2. Pain pump infection with staph aureus: She has been admitted to regular nursing floor vancomycin and Zosyn started on admission after cultures have been obtained. Consultation was placed to infectious disease as well as Dr. Brown with pain management (case discussed with him) Plan is for removal of the foreign body.Patient underwent hardware (pain pump as well as pain stimulator f rom the back) removal by Dr. Brown on 11/30/2017. Blood cultures obtained on admission positive for Staphylococcus aureus with meca resistance patient was seen in consultation by Dr. Pandey with infectious disease who recommended for patient undergo TTE as well as MRI. 3. Hypertension-blood pressure controlled, home medications continued with dose adjustment as needed 4. Sepsis ruled out criteria not met 5. Hypokalemia corrected per protocol 6. COPD currently not in exacerbation 7. DVT prophylaxis SC heparin Advance planning; did discuss with the patient and family again (her daughter) regarding her advanced directives as well as CODE STATUS. Did explain the various modalities involved ( FULL CODE, DNR CCA, DNR CCA with no intubation, and DNR CC ) patient elected to remain full code. Time spent on discussion 18 minutes. Clinical Impression(s) from Imaging Studies Chest X-Ray 11/29/17 19:05 IMPRESSION: Mild cardiomegaly. No acute airspace disease. Electronically Signed: Javier Cordero DO at 20:01 EDT Tel , Service support , Brain CT 11/29/17 19:07 IMPRESSION: No acute intracranial pathology. Paranasal sinus disease. No change from yesterday. Electronically Signed: Javier Cordero DO at 20:00 EDT Tel , Service support , Renal Ultrasound 11/30/17 12:35 IMPRESSION: 4 mm stone right kidney no evidence of hydronephrosis. Possible bladder diverticulum allowing for partial decompression. Electronically Signed: Martha Enriquez MD at 15:28 EDT Tel , Service support , Active Medications Acetaminophen (Tylenol) 650 mg PO Q6H PRN PRN PRN Reason: Mild Pain (scale 0-3)/T>100.7 Last Admin: 11/30/17 10:10 Dose: 650 mg Albuterol Sulfate (Ventolin Aerosols) 2.5 mg INHALATION Q6HWA.RT [facility] Last Admin: 12/01/17 06:31 Dose: 2.5 mg Budesonide (Pulmicort Aerosol) 0.5 mg INHALATION Q12H.RT [facility] Last Admin: 12/01/17 06:31 Dose: 0.5 mg Heparin Sodium (Porcine) (Heparin Na) 5,000 unit SC Q8 [facility] Last Admin: 12/01/17 06:38 Dose: 5,000 unit Hydrochlorothiazide (Hydrochlorothiazide) 12.5 mg PO DAILY [facility] Last Admin: 11/30/17 09:36 Dose: 12.5 mg Vancomycin IV Pharmacy to Dose (1,250 ea/ Sodium Chloride) 500 mls @ 250 mls/hr IV PRN PRN; Protocol Vancomycin HCl 750 mg/ Sodium (Chloride) 265 mls @ 250 mls/hr IV Q12H [facility] Last Admin: 12/01/17 06:38 Dose: 250 mls/hr Potassium Chloride 40 meq/ (Dextrose) 1,020 mls @ 75 mls/hr IV .[id number] [facility] Stop: 12/01/17 21:41 Last Admin: 11/30/17 21:34 Dose: 75 mls/hr Labetalol HCl (Trandate) 10 mg IV Q4H PRN PRN PRN Reason: SBP > 160 Lisinopril (Zestril) 10 mg PO DAILY [facility] Last Admin: 11/30/17 09:36 Dose: 10 mg Magnesium Hydroxide (Milk Of Magnesia) 30 ml PO DAILY PRN PRN PRN Reason: Constipation Nutritional Formula (Lactose Free) (Ensure Enlive) 120 ml PO 4X/DAY [facility] Last Admin: 11/30/17 22:23 Dose: 120 ml Ondansetron HCl (Zofran) 4 mg IV Q8H PRN PRN PRN Reason: Nausea Senna/Docusate Sodium (Senokot-S, Radha-Colace) 1 tablet PO BID [facility] Last Admin: 11/30/17 22:23 Dose: 1 tablet Sodium Chloride () 5 - 30 ml IV UD PRN PRN Reason: SALINE FLUSH Last Admin: 11/30/17 06:14 Dose: 10 ml Code Visit Inpatient E&M: 13246 Subs Hosp L3
[2017-12-01] MEDS: Acetaminophen 325 MG Tablet 650 MG PO ×3 (08:27→21:07)
--- NOTE | 2017-12-01 08:31 | CT_ITS ---
STUDY: CT BRAIN WITHOUT CONTRAST REASON FOR EXAM: Female, 72 years old. Confusion. Pain pump removed. Sepsis. MRSA infection. RADIATION DOSAGE (If Supplied By Facility): CTDIvol = ( 60.81 ) mGy, DLP = ( 1021.47 ) mGycm TECHNIQUE: Transaxial CT imaging of the brain was performed without administration of intravenous contrast material. Coronal and sagittal reconstructions were performed. Individualized dose optimization techniques were used for this CT. COMPARISON: CT head without contrast 11/29/2017. FINDINGS: Normal soft tissue structures. Normal calvarium. Normal size ventricles and extra-axial spaces for the patient's age. Normal white matter tracts of the cerebral hemispheres. Normal basal ganglia and thalami. Normal brainstem. Normal cerebellum. There is no intracranial hemorrhage. There are no findings of an acute ischemic infarction. Sclerotic thickening with complete opacification of the right maxillary sinus. Minimal mucosal thickening of the left maxillary sinus. Ovoid density in the left nostril is suspicious for polyp. CT/Brain/Head without Contrast IMPRESSION: 1. No CT evidence of intracranial bleeding, acute ischemic infarct or acute intracranial abnormality. 2. Suspicious left nasal polyp. 3. Pronounced chronic right maxillary sinusitis and minimal mucosal thickening in the left maxillary sinus. 4. No significant interval change when compared to 11/29/2017. Electronically Signed: Wil Vazquez MD at 10:34 EDT , Service support ,
[2017-12-01] MEDS: HYDROCHLOROTHIAZIDE 12.5 MG CAPSULE PO (08:32)
[2017-12-01] MEDS: Lisinopril 10 MG Tablet PO (08:32)
[2017-12-01] MEDS: Senna/Docusate Sodium 1 Tablet PO ×2 (08:38→21:05)
--- NOTE | 2017-12-01 08:38 | NURSING ---
This nurse was in room when Dr. Perez and daughter in room. Daughter had to go to work but mentioned screws and plates in neck from poss surgery. Daughter filled out another MRI form and [employer] Faxed down. Nia from MRI informed by this nurse that byron was going to call back regarding the screws in her neck and doctor yulisa was wanting to wait for the MRI until daughter called back, Nia said Screws were fine I was just wondering about the implant nerve stimulator. Dr. Perez told this nurse the pump and stimulator were taken out but when Nia asked, she asked if the electrodes were out as well. Since there is question of this, Nia will get an xray first before getting MRI. pt giving tylenol for her fever and sent down via bed to Radiology.
--- NOTE | 2017-12-01 08:43 | NURSING ---
Dr. Perez aware of temp of 102.6. No new orders
--- NOTE | 2017-12-01 08:50 | RAD_ITS ---
STUDY: X-RAY - ABDOMEN/PELVIS REASON FOR EXAM: Female, 72 years old. Spinal cord stimulator removed one day ago. Clearance for MRI. TECHNIQUE: AP supine view. COMPARISON: None. FINDINGS: Bibasilar fibrosis, left greater than right. There is an unremarkable bowel gas pattern. There is no demonstrated free abdominal air. The visualized liver, spleen and kidneys are grossly normal in size and morphology. Surgical justina overlying the right side of T11 down to L1 vertebral bodies. Surgical justina overlying the right iliac bone. No radiopaque stimulator foreign body in the thoracic spine or lumbar spine. Pedicular screws and rods at L3 down to S1. Postsurgical absence of the spinous processes and lamina from L3 down to L5. RAD/Abdomen Single View IMPRESSION: No radiopaque stimulator foreign-body in the thoracolumbar spine. Patient is cleared for MRI. Electronically Signed: Wil Vazquez MD at 9:13 EDT , Service support ,
--- NOTE | 2017-12-01 09:26 | PCA ---
pt off floor
--- NOTE | 2017-12-01 09:35 | NURSING ---
Pt is still down in Radiology at this time. Will get Vital Signs when comes back. Dr. Perez was texted by this nurse to see if he wants repeat Lactic Acid on her.
--- NOTE | 2017-12-01 10:24 | PN.ID_ITS ---
Patient Problems: Active and Suspected Problems Cellulitis (Acute) Altered mental status, unspecified (Acute) Sepsis affecting skin (Acute) Acute encephalopathy (Acute) MRSA bacteremia (Acute) Subjective: Feeling a little better. Stimulator removed yesterday. Fever overnight. Some pain and spasms in back. Some nausea. - Physical Exam General: Alert, Oriented x3, Cooperative Lungs: Clear to auscultation, Normal air movement Cardiovascular: Regular rate, Regular Rhythm Abdomen: Soft, Non Tender, Non-Distended Skin: No rashes Vital Signs Temp Pulse Resp BP Pulse Ox 102.6 F H 99 20 H 161/74 H 93 12/01/17 08:10 12/01/17 08:10 12/01/17 08:10 12/01/17 08:10 12/01/17 08:10 Oxygen Flow Rate (L/min) 2 Oxygen Delivery Method Room Air Weight: 79.8 kg Body Mass Index (BMI) 32.1 Intake and Output for Last 24 Hours 11/29/17 11/30/17 12/01/17 23:59 23:59 23:59 Intake Total 897 / 897 1584 / 1584 Balance 897 / 897 1584 / 1584 Microbiology Past 72 Hours 11/29/17 19:40 Urine Culture - Preliminary Urine, Clean Catch Culture exhibits no growth. 11/30/17 16:20 Gram Stain - Final Incision/Surgical Site 11/30/17 16:16 Gram Stain - Final Incision/Surgical Site 11/29/17 19:25 Blood Culture - Preliminary Blood Culture (Wb) - Venous Staphylococcus aureus 11/29/17 20:30 Bacteria Detection (PCR) - Final Blood Culture (Wb) - Anticubital Left Staphylococcus aureus mecA Resistance Marker Blood Culture - Preliminary Staphylococcus aureus Laboratory Tests Past 24 Hrs 11/29/17 11/29/17 11/29/17 19:25 19:25 19:25 Diff Path Review Reviewed Total Creatine Kinase Total Protein (PEP) Pending U Random Total Protein Urine Creatinine Protein/Creatinin Ratio IgG Pending IgA Pending IgM Pending Albumin (LORA) Pending Albumin/Globulin (LORA) Pending Gwsxs-9-Fggcoejzl LORA Pending Viunq-6-Ikztxthtx LORA Pending Beta-Globulins (LORA) Pending Gamma Globulins (LORA) Pending LORA M-Wellington Pending Urine Immunofixation Pending NICKIE Screen Pending VARGHESE-1 Antibody Pending SS-A/Ro IgG Antibody Pending SS-B/La IgG Antibody Pending Sm (Frost) Antibody Pending IT OPERATIONS SPECIALIST Antibody Pending Scl-70 Scleroderma Ab Pending Double Strand DNA Ab Pending Centromere B Antibody Pending S.aureus Protein A PCR MRSA (PCR) 11/29/17 11/30/17 11/30/17 19:40 05:35 06:35 Diff Path Review Reviewed Total Creatine Kinase 258 H Total Protein (PEP) U Random Total Protein 349.8 H Urine Creatinine 155.00 Protein/Creatinin Ratio 2257 H IgG IgA IgM Albumin (LORA) Albumin/Globulin (LORA) Xmned-3-Dayuivhns LOAR Uegmm-6-Sfqqvtfhw LORA Beta-Globulins (LORA) Gamma Globulins (LORA) LORA M-Wellington Urine Immunofixation NICKIE Screen VARGHESE-1 Antibody SS-A/Ro IgG Antibody SS-B/La IgG Antibody Sm (Frost) Antibody IT OPERATIONS SPECIALIST Antibody Scl-70 Scleroderma Ab Double Strand DNA Ab Centromere B Antibody S.aureus Protein A PCR MRSA (PCR) 11/30/17 11/30/17 16:16 16:20 Diff Path Review Total Creatine Kinase Total Protein (PEP) U Random Total Protein Urine Creatinine Protein/Creatinin Ratio IgG IgA IgM Albumin (LORA) Albumin/Globulin (LORA) Blnov-5-Fmpnnavqa LORA Nmfhi-0-Wxksykqhq LORA Beta-Globulins (LORA) Gamma Globulins (LORA) LORA M-Wellington Urine Immunofixation NICKIE Screen VARGHESE-1 Antibody SS-A/Ro IgG Antibody SS-B/La IgG Antibody Sm (Frost) Antibody IT OPERATIONS SPECIALIST Antibody Scl-70 Scleroderma Ab Double Strand DNA Ab Centromere B Antibody S.aureus Protein A PCR POSITIVE H POSITIVE H MRSA (PCR) POSITIVE H POSITIVE H Medical Necessity - Tobacco Use Smoking Status: Never smoker Route of nutrition/ use of supplements: [] Nutritional Intake: [] IV Site: [] Painting Catheter: [] - Assessment/Plan Antibiotics: [] Assessment/Plan: [] Active and Suspected Problems Cellulitis (Acute) Altered mental status, unspecified (Acute) Sepsis affecting skin (Acute) Acute encephalopathy (Acute) MRSA bacteremia - concern for recent spine stimulator placement as source. Removal done 11/30. Will repeat bcx and pending brain MRI and TTE. Continue vanc. Will follow
--- NOTE | 2017-12-01 10:57 | NURSING ---
Assessment has not been done and Angel, Nurse coming on is aware.
[2017-12-01 14:38] LABS: ANTINUCLEAR ANTIBODIES DIRECT Negative (Negative)
[2017-12-01] MEDS: 0.9% NaCl Peripheral Flush Adult/Peds IV (15:30)
[2017-12-01 19:01] LABS: Vancomycin, Trough Level 7.6 ug/mL (5.0-15.0)
--- NOTE | 2017-12-01 20:01 | PCM.RX.CS ---
Consult Pharmacy has been consulted to manage selected antiobiotic: Vancomycin Type of Consult: Follow-up Suspected Infection: Other Prior Doses of Antibiotics Received/Current Regimen: Currently on vancomycin 750mg IV q12h with doses given 11/30/17 at 18:37 and today 12/01/17 at 06:38 and 18:14. Labs: Sodium 137 mmol/L (136-145) 11/30/17 06:35 Potassium 3.3 mmol/L (3.5-5.1) L 11/30/17 06:35 Chloride 103 mmol/L (98-107) 11/30/17 06:35 Carbon Dioxide 24.0 mmol/L (21.0-32.0) 11/30/17 06:35 Anion Gap 10 (5-15) 11/30/17 06:35 BUN 28 mg/dL (7-18) H 11/30/17 06:35 Creatinine 0.82 mg/dL (0.55-1.02) 11/30/17 06:35 Est GFR (MDRD) Af Amer 88 mL/min (>60) 11/30/17 06:35 Est GFR (MDRD) Non-Af 73 mL/min (>60) 11/30/17 06:35 BUN/Creatinine Ratio 34.1 RATIO (10-20) H 11/30/17 06:35 Glucose 119 mg/dL (74-106) H 11/30/17 06:35 Vancomycin Trough 7.6 ug/mL (5.0-15.0) 12/01/17 17:50 Microbiology: Microbiology 11/30/17 16:20 Incision/Surgical Site Gram Stain - Final 11/30/17 16:20 Incision/Surgical Site Wound Culture - Preliminary Staphylococcus aureus 11/30/17 16:16 Incision/Surgical Site Gram Stain - Final 11/30/17 16:16 Incision/Surgical Site Wound Culture - Preliminary Staphylococcus aureus 11/29/17 19:40 Urine, Clean Catch Urine Culture - Preliminary Culture exhibits no growth. 11/29/17 19:25 Blood Culture (Wb) - Venous Blood Culture - Preliminary Staphylococcus aureus 11/29/17 20:30 Blood Culture (Wb) - Anticubital Left Bacteria Detection (PCR) - Final Staphylococcus aureus mecA Resistance Marker 11/29/17 20:30 Blood Culture (Wb) - Anticubital Left Blood Culture - Preliminary Staphylococcus aureus Goal Trough: 15-20 mcg/mL Pharmacy Plan for Drug Dosing: Trough obtained today prior to the PM dose came back as 7.6 (drawn about 11 hours after the previous dose). Although the patient had only received 3 doses prior to this trough, it is still far off from the goal range of 15-20, so we will increase the dose to 1250mg IV q12h and start it a little earlier than the next dose would have been due since the patient already received another 750mg dose after the trough was done this evening. Will obtain another trough prior to the 4th dose of 1250mg. Since the patient is not yet on a stable vancomycin dose, would also recommend that the patient have a SCr ordered tomorrow and the next day with the vancomycin trough as it was not ordered today. Pharmacy Service will continue to monitor and adjust dosing as required. Follow-Up Labs: Trough Vancomycin Labs to be done on [date and time ordered]: 12/03/17 15:30
[2017-12-02] VITALS (9 sets, daily range): BP systolic 121–155; BP diastolic 46–93; PULSE 80–98; RESP 18–26; TEMP 36.8–38.4; O2SAT 93–95
[2017-12-02] MEDS: Acetaminophen 325 MG Tablet 650 MG PO ×3 (04:10→20:56)
[2017-12-02] MEDS: Heparin Injection (Vial) 5,000 UNIT/ML VIAL 5000 UNIT SC ×3 (06:18→20:58)
[2017-12-02] MEDS: Budesonide Respules 0.5 MG/2 ML AMPUL.NEB. INHALATION ×2 (07:28→19:36)
[2017-12-02] MEDS: Albuterol 2.5 MG/3 ML VIAL.NEB. INHALATION ×2 (07:28→19:36)
[2017-12-02 08:10] LABS: Hematocrit 28.4 % (37-47); Hemoglobin 9.2 g/dl (12.0-15.0); Mean Corp Hgb Conc 32.4 g/gl (32-36); Mean Corpuscular Hgb 27.5 pg (27.0-32.0); Mean Corpuscular Volume 84.8 fL (81-99); Mean Platelet Vol. 9.9 fl (6.2-12.0); Platelet Count 194 K/mm3 (150-450); RBC Distribution Width CV 14.7 % (11.6-14.6); RBC Distribution Width SD 46.2 fl (35.1-43.9); Red Blood Count 3.35 M/mm3 (4.2-5.4); Scan Indicated on CBC? Y/N NO; White Blood Count 12.1 K/mm3 (4.4-11.0)
--- NOTE | 2017-12-02 08:19 | PN_ITS ---
Patient Problems: Active and Suspected Problems Cellulitis (Acute) Altered mental status, unspecified (Acute) Sepsis affecting skin (Acute) Acute encephalopathy (Acute) MRSA bacteremia (Acute) Subjective: Patient seen still complains of soreness at the site of incision. Patient still remains relatively lethargic. TTE was reported to be technically difficult study MRI was negative for brain abscess Objective: GENERAL: Lethargic HEENT: Atraumatic; moist oral mucosa EYES; Anicteric, Normal Conjunctiva NECK; supple, normal thyroid, no distended JVD. RESPIRATORY: Diminished to auscultation bilaterally, CARDIOVASCULAR: Regular S1 S2, no audible murmurs GI: soft, non-tender, normoactive bowel sounds, : No Renal angle tenderness; No ibarra EXTREMITIES: An area of induration on the right buttock with some warmth and erythema MUSCULOSKELTAL: No Joint Tenderness; no muscle waisting NEURO: Awake; no lateralizing signs. SKIN: Erythema right buttock PSYCH; flat affect Vitals/I&O's: Vital Signs Temp Pulse Resp BP Pulse Ox 98.5 F 80 26 H 147/76 H 93 12/02/17 06:22 12/02/17 07:28 12/02/17 07:28 12/02/17 04:07 12/02/17 07:28 Oxygen Flow Rate (L/min) 4 Oxygen Delivery Method Nasal Cannula Weight: 79.8 kg Body Mass Index (BMI) 32.1 Intake and Output for Last 24 Hours 11/30/17 12/01/17 12/02/17 23:59 23:59 23:59 Intake Total 897 / 897 2178 / 2178 761 / 761 Balance 897 / 897 2178 / 2178 761 / 761 Microbiology Past 72 Hours 11/29/17 19:40 Urine, Clean Catch Urine Culture - Final Culture exhibits no growth. 11/29/17 19:25 Blood Culture (Wb) - Venous Blood Culture - Final Staphylococcus aureus 11/29/17 20:30 Blood Culture (Wb) - Anticubital Left Bacteria Detection (PCR) - Final Staphylococcus aureus mecA Resistance Marker 11/29/17 20:30 Blood Culture (Wb) - Anticubital Left Blood Culture - Final Meth. resistant Staph. aureus 11/30/17 16:20 Incision/Surgical Site Gram Stain - Final 10/08/18 16:20 Incision/Surgical Site Wound Culture - Preliminary Staphylococcus aureus 11/30/17 16:20 Incision/Surgical Site Anaerobic Culture - Preliminary No growth in 48 hours. 12/01/17 11:20 Blood Culture (Wb) - Right Hand Blood Culture - Preliminary 11/30/17 16:16 Incision/Surgical Site Gram Stain - Final 11/30/17 16:16 Incision/Surgical Site Wound Culture - Preliminary Staphylococcus aureus Laboratory Results 11/29/17 19:25: NICKIE Screen Negative 11/30/17 16:16: S.aureus Protein A PCR POSITIVE H, MRSA (PCR) POSITIVE H 12/01/17 11:20: Lactic Acid 1.0 12/01/17 17:50: Vancomycin Trough 7.6 12/02/17 07:58: Creatinine Pending, Est GFR (MDRD) Af Amer Pending, Est GFR (MDRD) Non-Af Pending 12/02/17 07:58: Sodium Pending, Potassium Pending, Chloride Pending, Carbon Dioxide Pending, Anion Gap Pending, BUN Pending, Creatinine Pending, Est GFR (MDRD) Af Amer Pending, Est GFR (MDRD) Non-Af Pending, BUN/Creatinine Ratio Pending, Glucose Pending, Calcium Pending, Magnesium Pending 12/02/17 07:58: WBC 12.1 H, RBC 3.35 L, Hgb 9.2 L, Hct 28.4 L, MCV 84.8, MCH 27.5, MCHC 32.4, RDW 14.7 H, RDW Differential 46.2 H, Plt Count 194, MPV 9.9 Current Medications Acetaminophen (Tylenol) 650 mg PO Q6H PRN PRN PRN Reason: Mild Pain (scale 0-3)/T>100.7 Last Admin: 12/02/17 04:10 Dose: 650 mg Albuterol Sulfate (Ventolin Aerosols) 2.5 mg INHALATION Q6HWA.RT [facility] Last Admin: 12/02/17 07:28 Dose: 2.5 mg Budesonide (Pulmicort Aerosol) 0.5 mg INHALATION Q12H.RT [facility] Last Admin: 12/02/17 07:28 Dose: 0.5 mg Heparin Sodium (Porcine) (Heparin Na) 5,000 unit SC Q8 DRE Last Admin: 12/02/17 06:18 Dose: 5,000 unit Hydrochlorothiazide (Hydrochlorothiazide) 12.5 mg PO DAILY [facility] Last Admin: 12/01/17 08:32 Dose: 12.5 mg Vancomycin IV Pharmacy to Dose (1,250 ea/ Sodium Chloride) 500 mls @ 250 mls/hr IV PRN PRN; Protocol Vancomycin HCl 1,250 mg/ (Sodium Chloride) 275 mls @ 167 mls/hr IV Q12H [facility] Last Admin: 12/02/17 06:18 Dose: 167 mls/hr Labetalol HCl (Trandate) 10 mg IV Q4H PRN PRN PRN Reason: SBP > 160 Lisinopril (Zestril) 10 mg PO DAILY [facility] Last Admin: 12/01/17 08:32 Dose: 10 mg Magnesium Hydroxide (Milk Of Magnesia) 30 ml PO DAILY PRN PRN PRN Reason: Constipation Nutritional Formula (Lactose Free) (Ensure Enlive) 120 ml PO 4X/DAY [facility] Last Admin: 12/01/17 21:05 Dose: 120 ml Ondansetron HCl (Zofran) 4 mg IV Q8H PRN PRN PRN Reason: Nausea Senna/Docusate Sodium (Senokot-S, Radha-Colace) 1 tablet PO BID [facility] Last Admin: 12/01/17 21:05 Dose: 1 tablet Sodium Chloride () 5 - 30 ml IV UD PRN PRN Reason: SALINE FLUSH Last Admin: 12/01/17 15:30 Dose: 10 ml Medical Necessity - Tobacco Use Smoking Status: Never smoker Assessment/Plan All Active Problems Cellulitis (Acute) Altered mental status, unspecified (Acute) Sepsis affecting skin (Acute) Acute encephalopathy (Acute) MRSA bacteremia (Acute) Hip pain, right (Acute) Acute back pain (Acute) Patient is a 72-year-old lady with history of chronic back pain who underwent pain pump insertion in her right buttock on account of sciatica on 11/13/[address] Brown. Patient was brought to the emergency department due to functional decline and increasing lethargy. An assessment of pain pump infection made antibiotics initiated per protocol and patient admitted to regular nursing floor for subsequent management 1. Acute infectious encephalopathy secondary to pain pump infection. Patient underwent subsequent evaluation with CT of the head with contrast as well as MRI of the brain there was no evidence of brain abscess 2. Pain pump infection with staph aureus: She has been admitted to regular [facility] floor vancomycin and Zosyn started on admission after cultures have been obtained. Consultation was placed to infectious disease as well as Dr. Brown with pain management (case discussed with him) Plan is for removal of the foreign body.Patient underwent hardware (pain pump as well as pain stimulator from the back) removal by Dr. Brown on 11/30/2017. Blood cultures obtained on admission positive for Staphylococcus aureus with meca resistance patient was seen in consultation by Dr. Pandey with infectious disease who recommended for patient undergo TTE as well as MRI.. TTE was reported to be technically difficult however there was no evidence of endocarditis 3. Hypertension-blood pressure controlled, home medications continued with dose adjustment as needed 4. Sepsis ruled out criteria not met 5. Hypokalemia corrected per protocol 6. COPD currently not in exacerbation 7. DVT prophylaxis SC heparin Clinical Impression(s) from Imaging Studies Brain MRI 12/01/17 06:00 IMPRESSION: Normal unenhanced and enhanced MRI of the brain. Electronically Signed: Wil Vazquez MD at 12:34 EDT , Service support , Brain CT 12/01/17 08:31 IMPRESSION: 1. No CT evidence of intracranial bleeding, acute ischemic infarct or acute intracranial abnormality. 2. Suspicious left nasal polyp. 3. Pronounced chronic right maxillary sinusitis and minimal mucosal thickening in the left maxillary sinus. 4. No significant interval change when compared to 11/29/2017. Electronically Signed: Wil Vazquez MD at 10:34 EDT , Service support , KUB X-Ray 12/01/17 08:50 IMPRESSION: No radiopaque stimulator foreign-body in the thoracolumbar spine. Patient is cleared for MRI. Electronically Signed: Wil Vazquez MD at 9:13 EDT , Service support , Code Visit Inpatient E&M: 88221 Subs Hosp L3
[2017-12-02 08:30] LABS: Anion Gap 5 (5-15); BUN 18 mg/dL (7-18); BUN/Creat Ratio 28.5 RATIO (10-20); Calcium,Total 7.5 mg/dL (8.5-10.1); Chloride 100 mmol/L (98-107); Creatinine, Serum 0.63 mg/dL (0.55-1.02); EST Glomerular Filtration Rate 99 mL/min (>60); Est Glom Filt Rate - Afr Amer 120 mL/min (>60); Estimated Creatinine Clearance 40.81 ml/min; Glucose 112 mg/dL (74-106); Magnesium 1.9 mg/dL (1.6-2.6); Potassium 3.4 mmol/L (3.5-5.1); Sodium Level 133 mmol/L (136-145)
--- NOTE | 2017-12-02 08:48 | PCM.PN.REN ---
Patient Problems: Active and Suspected Problems Cellulitis (Acute) Altered mental status, unspecified (Acute) Sepsis affecting skin (Acute) Acute encephalopathy (Acute) MRSA bacteremia (Acute) - Physical Exam Vital Signs Temp Pulse Resp BP Pulse Ox 98.5 F 80 26 H 147/76 H 93 12/02/17 06:22 12/02/17 07:28 12/02/17 07:28 12/02/17 04:07 12/02/17 07:28 Oxygen Flow Rate (L/min) 4 Oxygen Delivery Method Nasal Cannula Weight: 79.8 kg Body Mass Index (BMI) 32.1 Intake and Output for Last 24 Hours 11/30/17 12/01/17 12/02/17 23:59 23:59 23:59 Intake Total 897 / 897 2178 / 2178 761 / 761 Balance 897 / 897 2178 / 2178 761 / 761 Microbiology Past 72 Hours 11/30/17 16:20 Gram Stain - Final Incision/Surgical Site Wound Culture - Final Meth. resistant Staph. aureus Anaerobic Culture - Preliminary No growth in 48 hours. 11/30/17 16:16 Gram Stain - Final Incision/Surgical Site Wound Culture - Final Meth. resistant Staph. aureus 11/29/17 19:40 Urine Culture - Final Urine, Clean Catch Culture exhibits no growth. 11/29/17 19:25 Blood Culture - Final Blood Culture (Wb) - Venous Staphylococcus aureus 11/29/17 20:30 Bacteria Detection (PCR) - Final Blood Culture (Wb) - Anticubital Left Staphylococcus aureus mecA Resistance Marker Blood Culture - Final Meth. resistant Staph. aureus 12/01/17 11:20 Blood Culture - Preliminary Blood Culture (Wb) - Right Hand Laboratory Tests Past 24 Hrs 11/29/17 11/30/17 12/01/17 19:25 16:16 11:20 WBC RBC Hgb Hct MCV MCH MCHC RDW RDW Differential Plt Count MPV Sodium Potassium Chloride Carbon Dioxide Anion Gap BUN Creatinine Estim Creat Clear Calc Est GFR (MDRD) Af Amer Est GFR (MDRD) Non-Af BUN/Creatinine Ratio Glucose Lactic Acid 1.0 Calcium Magnesium Vancomycin Trough NICKIE Screen Negative S.aureus Protein A PCR POSITIVE H MRSA (PCR) POSITIVE H 12/01/17 12/02/17 12/02/17 17:50 07:58 07:58 WBC RBC Hgb Hct MCV MCH MCHC RDW RDW Differential Plt Count MPV Sodium 133 L Potassium 3.4 L Chloride 100 Carbon Dioxide 28.0 Anion Gap 5 BUN 18 Creatinine Cancelled 0.63 Estim Creat Clear Calc Cancelled 40.81 Est GFR (MDRD) Af Amer Cancelled 120 Est GFR (MDRD) Non-Af Cancelled 99 BUN/Creatinine Ratio 28.5 H Glucose 112 H Lactic Acid Calcium 7.5 L Magnesium 1.9 Vancomycin Trough 7.6 NICKIE Screen S.aureus Protein A PCR MRSA (PCR) 12/02/17 07:58 WBC 12.1 H RBC 3.35 L Hgb 9.2 L Hct 28.4 L MCV 84.8 MCH 27.5 MCHC 32.4 RDW 14.7 H RDW Differential 46.2 H Plt Count 194 MPV 9.9 Sodium Potassium Chloride Carbon Dioxide Anion Gap BUN Creatinine Estim Creat Clear Calc Est GFR (MDRD) Af Amer Est GFR (MDRD) Non-Af BUN/Creatinine Ratio Glucose Lactic Acid Calcium Magnesium Vancomycin Trough NICKIE Screen S.aureus Protein A PCR MRSA (PCR) Medical Necessity - Tobacco Use Smoking Status: Never smoker Assessment/Plan All Active Problems Cellulitis (Acute) Altered mental status, unspecified (Acute) Sepsis affecting skin (Acute) Acute encephalopathy (Acute) MRSA bacteremia (Acute) Hip pain, right (Acute) Acute back pain (Acute) 1. Proteinuria of unclear etiology. She has no history of diabetes. She is anemic. Will check protein electrophoresis and LORA. Review of [facility] records showed 100+ protein in Feb 2008, negative protein in August 2004. She has chronic pain but denied history of NSAID use. Encounter notes from [facility] chart record show treatment with ibuprofen by pain management. I would consider in my differential minimal change disease from NSAID use. We will send off serology, NICKIE with reflex. Avoid NSAID use and recheck for proteinuria. May need biopsy if proteinuria persists. 2. Sepsis with lethargy. Fever persists. MRSA positive on blood culture. Currently on IV antibiotic therapy. ID consulted. 3. Hypertension on blood pressure medications managed by primary service. 4. Chronic pain management. 5. Generalized weakness and lethargy. CPK level unremarkable for rhabdo.
[2017-12-02] MEDS: Lisinopril 10 MG Tablet PO (10:10)
[2017-12-02] MEDS: Senna/Docusate Sodium 1 Tablet PO ×2 (10:10→20:58)
[2017-12-02] MEDS: HYDROCHLOROTHIAZIDE 12.5 MG CAPSULE PO (10:10)
--- NOTE | 2017-12-02 10:46 | PCM.PN.ID ---
Patient Problems: Active and Suspected Problems Cellulitis (Acute) Altered mental status, unspecified (Acute) Sepsis affecting skin (Acute) Acute encephalopathy (Acute) MRSA bacteremia (Acute) Subjective: C/o pain in back. Still high fever. - Physical Exam General: No apparent distress, - - ill appearing Lungs: Clear to auscultation, Normal air movement Cardiovascular: Regular rate, Regular Rhythm Abdomen: Soft, Non Tender, Non-Distended Skin: Incision - spine and stimulator incisions with no redness or drainage. Vital Signs Temp Pulse Resp BP Pulse Ox 99.3 F H 82 20 H 148/62 H 94 12/02/17 10:07 12/02/17 10:07 12/02/17 10:07 12/02/17 10:07 12/02/17 10:07 Oxygen Flow Rate (L/min) 4 Oxygen Delivery Method Nasal Cannula Weight: 79.8 kg Body Mass Index (BMI) 32.1 Intake and Output for Last 24 Hours 11/30/17 12/01/17 12/02/17 23:59 23:59 23:59 Intake Total 897 / 897 2178 / 2178 761 / 761 Balance 897 / 897 2178 / 2178 761 / 761 Microbiology Past 72 Hours 11/30/17 16:20 Gram Stain - Final Incision/Surgical Site Wound Culture - Final Meth. resistant Staph. aureus Anaerobic Culture - Preliminary No growth in 48 hours. 11/30/17 16:16 Gram Stain - Final Incision/Surgical Site Wound Culture - Final Meth. resistant Staph. aureus 11/29/17 19:40 Urine Culture - Final Urine, Clean Catch Culture exhibits no growth. 11/29/17 19:25 Blood Culture - Final Blood Culture (Wb) - Venous Staphylococcus aureus 11/29/17 20:30 Bacteria Detection (PCR) - Final Blood Culture (Wb) - Anticubital Left Staphylococcus aureus mecA Resistance Marker Blood Culture - Final Meth. resistant Staph. aureus 12/01/17 11:20 Blood Culture - Preliminary Blood Culture (Wb) - Right Hand Laboratory Tests Past 24 Hrs 11/29/17 11/30/17 12/01/17 19:25 16:16 11:20 WBC RBC Hgb Hct MCV MCH MCHC RDW RDW Differential Plt Count MPV Sodium Potassium Chloride Carbon Dioxide Anion Gap BUN Creatinine Estim Creat Clear Calc Est GFR (MDRD) Af Amer Est GFR (MDRD) Non-Af BUN/Creatinine Ratio Glucose Lactic Acid 1.0 Calcium Magnesium Vancomycin Trough NICKIE Screen Negative S.aureus Protein A PCR POSITIVE H MRSA (PCR) POSITIVE H 12/01/17 12/02/17 12/02/17 17:50 07:58 07:58 WBC RBC Hgb Hct MCV MCH MCHC RDW RDW Differential Plt Count MPV Sodium 133 L Potassium 3.4 L Chloride 100 Carbon Dioxide 28.0 Anion Gap 5 BUN 18 Creatinine Cancelled 0.63 Estim Creat Clear Calc Cancelled 40.81 Est GFR (MDRD) Af Amer Cancelled 120 Est GFR (MDRD) Non-Af Cancelled 99 BUN/Creatinine Ratio 28.5 H Glucose 112 H Lactic Acid Calcium 7.5 L Magnesium 1.9 Vancomycin Trough 7.6 NICKIE Screen S.aureus Protein A PCR MRSA (PCR) 12/02/17 07:58 WBC 12.1 H RBC 3.35 L Hgb 9.2 L Hct 28.4 L MCV 84.8 MCH 27.5 MCHC 32.4 RDW 14.7 H RDW Differential 46.2 H Plt Count 194 MPV 9.9 Sodium Potassium Chloride Carbon Dioxide Anion Gap BUN Creatinine Estim Creat Clear Calc Est GFR (MDRD) Af Amer Est GFR (MDRD) Non-Af BUN/Creatinine Ratio Glucose Lactic Acid Calcium Magnesium Vancomycin Trough NICKIE Screen S.aureus Protein A PCR MRSA (PCR) Medical Necessity - Tobacco Use Smoking Status: Never smoker Route of nutrition/ use of supplements: [] Nutritional Intake: [] IV Site: [] Painting Catheter: [] - Assessment/Plan Antibiotics: [] Assessment/Plan: [] Active and Suspected Problems Cellulitis (Acute) Altered mental status, unspecified (Acute) Sepsis affecting skin (Acute) Acute encephalopathy (Acute) MRSA bacteremia - recent spine stimulator placement as source. Removal done 11/30 with heavy purulence at both surgical sites. On vanc. Trough is low. Cr improved. Incisions with no sign of inflammation, but increasing fever. Will order CT abd/pelvis to look for other deep abscess. May need to be changed to dapto. Will need MOSES. Will follow
--- NOTE | 2017-12-02 10:48 | CT_ITS ---
STUDY: CT ABDOMEN AND PELVIS WITHOUT CONTRAST REASON FOR EXAM: Female, 72 years old. Recent removal of spinal stimulator due to MRSA. RADIATION DOSAGE (If Supplied By Facility): CTDIvol = ( 17.38 ) mGy, DLP = ( 848.23 ) mGycm TECHNIQUE: Transaxial images were obtained from the dome of the diaphragm to the symphysis pubis without oral contrast, and without intravenous contrast. Sagittal and coronal images were reconstructed. Individualized dose optimization techniques were used for this CT. COMPARISON: CT pelvis 03/25/2017, CT abdomen and pelvis 06/19/2009 FINDINGS: Body wall soft tissues: Subcu kidneys fat, right upper buttock, postsurgical changes, stable line, area of induration measuring approximately 5.7 x 4.4 x 6.1 cm most consistent with residual edema/small hematoma without organized fluid collection. Postsurgical changes in the midline overlying the lumbosacral junction, small amount of gas in the subcutaneous fat superficial to the spinous process. Small area of induration that is likely a small hematoma/seroma, immediately deep to the surgical staple line. This area of induration measures approximately 5.9 cm craniocaudal, 2.8 cm anterior-posterior, and 3.6 cm is. There is mild bilateral flank edema. Osseous structures: No acute osseous process. Multilevel low lumbar laminectomy L3-S1 with posterior bonny and pedicle screw fixation. Surgical construct intact. Inferior chest: Moderate bilateral layering pleural effusions with prominent bibasilar atelectasis. Moderate coronary Made[place] without pericardial effusion. Normal distal esophagus. Hepatobiliary: Normal. Pancreas: No acute process. Spleen: Normal. Adrenal glands: Normal. Urogenital: No acute process. Pelvic floor and sidewalls and retroperitoneum: No mass or adenopathy. Vasculature: No acute process. Stomach: No acute process. Small bowel and mesentery: No acute process. Large bowel: No acute process. Free fluid or free air: None. CT/Abdomen/Pelvis without Cont IMPRESSION: No acute intra-abdominal process is evident. Soft tissue edema/induration and small seroma/hematoma at the thoracolumbar operative site, and of the right buttock operative site, within the subcutaneous fat. There is no evidence of organized abscess. Moderately large bilateral pleural effusions with prominent bibasilar atelectasis. Electronically Signed: Kev Montgomery, at 14:12 EDT Tel , Service support ,
[2017-12-02 12:08] LABS: Albumin 2.6 g/dL (2.9-4.4); Alpha-1-Globulins 0.7 g/dL (0.0-0.4); Alpha-2-Globulins 1.4 g/dL (0.4-1.0); Gamma Globulin 0.6 g/dL (0.4-1.8); Immunoglobulin A 159 mg/dL (64-422); Immunoglobulin G 583 mg/dL (700-1600); Immunoglobulin M 105 mg/dL (26-217); PROEL- TOTAL PROTEIN 6.3 g/dL (6.0-8.5)
--- NOTE | 2017-12-02 13:00 | CASEMGMT ---
Social Work Note DILLAN spoke with pt's daughter Jeimy in regards to discharge plans. SW explained that most likely pt will be discharged on IV antibiotics. SW educated Jeimy to SNF and [facility]. Jeimy states that she would like to take pt home but that no one would be home during the day to assist pt as she works. SW provided Jeimy with list of in network SNF. DILLAN asked Jeimy to come up with three different options and that this SW will check back with Jeimy in the next few days to get her options and to send referral. DILLAN explained referral process and pre-cert. Jeimy states understanding. 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
--- NOTE | 2017-12-02 14:42 | PCM.PN.REN ---
Patient Problems: Active and Suspected Problems Cellulitis (Acute) Altered mental status, unspecified (Acute) Sepsis affecting skin (Acute) Acute encephalopathy (Acute) MRSA bacteremia (Acute) Subjective: denies SOB, cough. Still weak, getting PT/OT. Remains febrile. - Physical Exam General: Alert, Oriented x3, - - Stuccato of voice Lungs: Clear to auscultation Cardiovascular: Regular rate Abdomen: Bowel Sounds Present, Soft, Non Tender, Obese Extremities: No edema Psych/Mental Status: Normal Affect, Appropriate, Alert and oriented to time, place, person, mood and affect Vital Signs Temp Pulse Resp BP Pulse Ox 100.6 F H 82 20 H 148/62 H 94 12/02/17 12:48 12/02/17 10:07 12/02/17 10:07 12/02/17 10:07 12/02/17 10:07 Oxygen Flow Rate (L/min) 4 Oxygen Delivery Method Nasal Cannula Weight: 79.8 kg Body Mass Index (BMI) 32.1 Intake and Output for Last 24 Hours 11/30/17 12/01/17 12/02/17 23:59 23:59 23:59 Intake Total 897 / 897 2178 / 2178 861 / 861 Balance 897 / 897 2178 / 2178 861 / 861 Microbiology Past 72 Hours 11/30/17 16:20 Gram Stain - Final Incision/Surgical Site Wound Culture - Final Meth. resistant Staph. aureus Anaerobic Culture - Preliminary No growth in 48 hours. 11/30/17 16:16 Gram Stain - Final Incision/Surgical Site Wound Culture - Final Meth. resistant Staph. aureus 11/29/17 19:40 Urine Culture - Final Urine, Clean Catch Culture exhibits no growth. 11/29/17 19:25 Blood Culture - Final Blood Culture (Wb) - Venous Staphylococcus aureus 11/29/17 20:30 Bacteria Detection (PCR) - Final Blood Culture (Wb) - Anticubital Left Staphylococcus aureus mecA Resistance Marker Blood Culture - Final Meth. resistant Staph. aureus 12/01/17 11:20 Blood Culture - Preliminary Blood Culture (Wb) - Right Hand Laboratory Tests Past 24 Hrs 11/29/17 12/01/17 12/02/17 19:25 17:50 07:58 WBC RBC Hgb Hct MCV MCH MCHC RDW RDW Differential Plt Count MPV Sodium Potassium Chloride Carbon Dioxide Anion Gap BUN Creatinine Cancelled Estim Creat Clear Calc Cancelled Est GFR (MDRD) Af Amer Cancelled Est GFR (MDRD) Non-Af Cancelled BUN/Creatinine Ratio Glucose Calcium Magnesium Total Protein (PEP) 6.3 Vancomycin Trough 7.6 IgG 583 L IgA 159 IgM 105 Immunofixation Screen Comment Albumin (LORA) 2.6 L Albumin/Globulin (LORA) 0.8 [id number] LORA 0.7 H Nlydr-5-Pljrbewoi LORA 1.4 H Beta-Globulins (LORA) 1.0 Gamma Globulins (LORA) 3.7 LORA M-Wellington LORA Comments Comment Urine Immunofixation TNP 12/02/17 12/02/17 07:58 07:58 WBC 12.1 H RBC 3.35 L Hgb 9.2 L Hct 28.4 L MCV 84.8 MCH 27.5 MCHC 32.4 RDW 14.7 H RDW Differential 46.2 H Plt Count 194 MPV 9.9 Sodium 133 L Potassium 3.4 L Chloride 100 Carbon Dioxide 28.0 Anion Gap 5 BUN 18 Creatinine 0.63 Estim Creat Clear Calc 40.81 Est GFR (MDRD) Af Amer 120 Est GFR (MDRD) Non-Af 99 BUN/Creatinine Ratio 28.5 H Glucose 112 H Calcium 7.5 L Magnesium 1.9 Total Protein (PEP) Vancomycin Trough IgG IgA IgM Immunofixation Screen Albumin (LORA) Albumin/Globulin (LORA) Ntbyf-1-Mhfdzcyrc LORA Nggzr-0-Wgfgliite LORA Beta-Globulins (LORA) Gamma Globulins (LORA) LORA M-Wellington LORA Comments Urine Immunofixation Medical Necessity - Tobacco Use Smoking Status: Never smoker Assessment/Plan All Active Problems Cellulitis (Acute) Altered mental status, unspecified (Acute) Sepsis affecting skin (Acute) Acute encephalopathy (Acute) MRSA bacteremia (Acute) Hip pain, right (Acute) Acute back pain (Acute) 1. Proteinuria of unclear etiology. She has no history of diabetes. She is anemic. Will check protein electrophoresis and LORA. Review of [facility] records showed 100+ protein in Feb 2008, negative protein in August 2004. She has chronic pain but denied history of NSAID use. Encounter notes from [facility] chart record show treatment with ibuprofen by pain management. I would consider in my differential minimal change disease from NSAID use. We will send off serology, NICKIE negative, No M spike. Avoid NSAID use and recheck for proteinuria. May need biopsy if proteinuria persists. 2. Sepsis with lethargy. Fever persists. MRSA positive on blood culture. Currently on IV antibiotic therapy. ID consulted. 3. Hypertension on blood pressure medications managed by primary service. 4. Chronic pain management. 5. Generalized weakness and lethargy. CPK level unremarkable for rhabdo.
--- NOTE | 2017-12-02 14:45 | PN.RENAL_ITS ---
Patient Problems: Active and Suspected Problems Cellulitis (Acute) Altered mental status, unspecified (Acute) Sepsis affecting skin (Acute) Acute encephalopathy (Acute) MRSA bacteremia (Acute) Subjective: denies SOB, cough. Still weak, getting PT/OT. Remains febrile. - Physical Exam General: Alert, Oriented x3, - - Stuccato of voice Lungs: Clear to auscultation Cardiovascular: Regular rate Abdomen: Bowel Sounds Present, Soft, Non Tender, Obese Extremities: No edema Psych/Mental Status: Normal Affect, Appropriate, Alert and oriented to time, place, person, mood and affect Vital Signs Temp Pulse Resp BP Pulse Ox 100.6 F H 82 20 H 148/62 H 94 12/02/17 12:48 12/02/17 10:07 12/02/17 10:07 12/02/17 10:07 12/02/17 10:07 Oxygen Flow Rate (L/min) 4 Oxygen Delivery Method Nasal Cannula Weight: 79.8 kg Body Mass Index (BMI) 32.1 Intake and Output for Last 24 Hours 11/30/17 12/01/17 12/02/17 23:59 23:59 23:59 Intake Total 897 / 897 2178 / 2178 861 / 861 Balance 897 / 897 2178 / 2178 861 / 861 Microbiology Past 72 Hours 11/30/17 16:20 Gram Stain - Final Incision/Surgical Site Wound Culture - Final Meth. resistant Staph. aureus Anaerobic Culture - Preliminary No growth in 48 hours. 11/30/17 16:16 Gram Stain - Final Incision/Surgical Site Wound Culture - Final Meth. resistant Staph. aureus 11/29/17 19:40 Urine Culture - Final Urine, Clean Catch Culture exhibits no growth. 11/29/17 19:25 Blood Culture - Final Blood Culture (Wb) - Venous Staphylococcus aureus 11/29/17 20:30 Bacteria Detection (PCR) - Final Blood Culture (Wb) - Anticubital Left Staphylococcus aureus mecA Resistance Marker Blood Culture - Final Meth. resistant Staph. aureus 12/01/17 11:20 Blood Culture - Preliminary Blood Culture (Wb) - Right Hand Laboratory Tests Past 24 Hrs 11/29/17 12/01/17 12/02/17 19:25 17:50 07:58 WBC RBC Hgb Hct MCV MCH MCHC RDW RDW Differential Plt Count MPV Sodium Potassium Chloride Carbon Dioxide Anion Gap BUN Creatinine Cancelled Estim Creat Clear Calc Cancelled Est GFR (MDRD) Af Amer Cancelled Est GFR (MDRD) Non-Af Cancelled BUN/Creatinine Ratio Glucose Calcium Magnesium Total Protein (PEP) 6.3 Vancomycin Trough 7.6 IgG 583 L IgA 159 IgM 105 Immunofixation Screen Comment Albumin (LORA) 2.6 L Albumin/Globulin (LORA) 0.8 Goxgb-3-Ubnyqucyh LORA 0.7 H Fteyg-2-Iginaokvz LORA 1.4 H Beta-Globulins (LORA) 1.0 Gamma Globulins (LORA) 3.7 LORA M-Wellington LORA Comments Comment Urine Immunofixation TNP 12/02/17 12/02/17 07:58 07:58 WBC 12.1 H RBC 3.35 L Hgb 9.2 L Hct 28.4 L MCV 84.8 MCH 27.5 MCHC 32.4 RDW 14.7 H RDW Differential 46.2 H Plt Count 194 MPV 9.9 Sodium 133 L Potassium 3.4 L Chloride 100 Carbon Dioxide 28.0 Anion Gap 5 BUN 18 Creatinine 0.63 Estim Creat Clear Calc 40.81 Est GFR (MDRD) Af Amer 120 Est GFR (MDRD) Non-Af 99 BUN/Creatinine Ratio 28.5 H Glucose 112 H Calcium 7.5 L Magnesium 1.9 Total Protein (PEP) Vancomycin Trough IgG IgA IgM Immunofixation Screen Albumin (LORA) Albumin/Globulin (LORA) Zxcod-0-Qakstdhzc LORA Otwym-2-Mavtqtcuj LORA Beta-Globulins (LORA) Gamma Globulins (LORA) LORA M-Wellington LORA Comments Urine Immunofixation Medical Necessity - Tobacco Use Smoking Status: Never smoker Assessment/Plan All Active Problems Cellulitis (Acute) Altered mental status, unspecified (Acute) Sepsis affecting skin (Acute) Acute encephalopathy (Acute) MRSA bacteremia (Acute) Hip pain, right (Acute) Acute back pain (Acute) 1. Proteinuria of unclear etiology. She has no history of diabetes. She is anemic. Will check protein electrophoresis and LORA. Review of [facility] records showed 100+ protein in Feb 2008, negative protein in August 2004. She has chronic pain but denied history of NSAID use. Encounter notes from [facility] chart record show treatment with ibuprofen by pain management. I would consider in my differential minimal change disease from NSAID use. We will send off serology, NICKIE negative, No M spike. Avoid NSAID use and recheck for proteinuria. May need biopsy if proteinuria persists. 2. Sepsis with lethargy. Fever persists. MRSA positive on blood culture. Currently on IV antibiotic therapy. ID consulted. 3. Hypertension on blood pressure medications managed by primary service. 4. Chronic pain management. 5. Generalized weakness and lethargy. CPK level unremarkable for rhabdo.
--- NOTE | 2017-12-02 14:46 | ECHOTEE_ITS ---
Reason For Study: BACTEREMIA, EMBOLI Medication MOSES probe passed with minimal difficulty. No complications were noted. [place]x Topical [place] given X3 metered doses orally. Versed 1 mg given slow IVP. Fentanyl 50 mcg given slow IVP. Performed a rapid injection of agitated mix of 9 cc saline and 1cc air to assess for atrial septal defect. Left Ventricle Normal LV size. Left ventricular systolic function is normal. The estimated ejection fraction is 65 %. No regional wall motion abnormalities noted. Right Ventricle Normal size and thickness. Normal systolic function. Atria No doppler evidence for ASD. Bubble contrast study negative for right to left interatrial shunt. Normal left atrium. There is no sponatenous contrast in the left atrium. No thrombus is detected in the left atrial appendage. Normal right atrium. There is no sponatenous contrast in the right atrium. No RA / appendage thrombus identified. Mitral Valve There is no mitral annular calcification. Mild diffuse mitral valve thickening. The mitral papillary muscle appears thickened and/or calcified. Trivial mitral valve insufficiency. Tricuspid Valve Mild diffuse thickening of the tricuspid valve. Myxomatous appearing tricuspid valve. 2D echocardiographic findings c/w redundant chordae tendonae. Mild tricuspid valve insufficiency. Aortic Valve Trisinus/trileaflet aortic valve. Normal aortic valve. Pulmonic Valve The pulmonic valve is not well visualized. Trivial pulmonic valve insufficiency. Vessels Normal appearing thoracic aorta. Pericardium No pericardial effusion. Echolucency c/w a pleural effusion. Interpretation Summary Left ventricular systolic function is normal. The estimated ejection fraction is 65 %. There is no sponatenous contrast in the left atrium. No thrombus is detected in the left atrial appendage. Mild diffuse mitral valve thickening. The mitral papillary muscle appears thickened and/or calcified. Trivial mitral valve insufficiency. Mild diffuse thickening of the tricuspid valve. Myxomatous appearing tricuspid valve. 2D echocardiographic findings c/w redundant chordae tendonae. Mild tricuspid valve insufficiency. Trivial pulmonic valve insufficiency. Echolucency c/w a pleural effusion. Bubble contrast study negative for right to left interatrial shunt. Normal appearing thoracic aorta. Ordering Physician: José Perez Referring Physician: Tony Dey Performed By: Kira Mills RDCS
[2017-12-02] MEDS: 0.9% Normal Saline 1,000 ML 75 ML IV (15:10)
[2017-12-03] VITALS (18 sets, daily range): BP systolic 121–206; BP diastolic 53–88; PULSE 80–86; RESP 18–32; TEMP 36.8–37.1; O2SAT 92–97
[2017-12-03] MEDS: Heparin Injection (Vial) 5,000 UNIT/ML VIAL 5000 UNIT SC (05:41)
[2017-12-03 05:46] LABS: Hematocrit 27.8 % (37-47); Mean Corp Hgb Conc 32.4 g/gl (32-36); Mean Corpuscular Hgb 27.8 pg (27.0-32.0); Mean Corpuscular Volume 85.8 fL (81-99); Mean Platelet Vol. 10.7 fl (6.2-12.0); Platelet Count 188 K/mm3 (150-450); RBC Distribution Width CV 14.5 % (11.6-14.6); RBC Distribution Width SD 43.9 fl (35.1-43.9); Red Blood Count 3.24 M/mm3 (4.2-5.4); White Blood Count 11.7 K/mm3 (4.4-11.0)
[2017-12-03] MEDS: 0.9% Normal Saline 1,000 ML 75 ML IV (05:46)
[2017-12-03 05:55] LABS: Scan Indicated on CBC? Y/N NO
[2017-12-03 05:57] LABS: Anion Gap 9 (5-15); BUN 17 mg/dL (7-18); BUN/Creat Ratio 32.4 RATIO (10-20); Calcium,Total 7.6 mg/dL (8.5-10.1); Chloride 97 mmol/L (98-107); Creatinine, Serum 0.52 mg/dL (0.55-1.02); EST Glomerular Filtration Rate 122 mL/min (>60); Est Glom Filt Rate - Afr Amer 148 mL/min (>60); Estimated Creatinine Clearance 40.81 ml/min; Glucose 106 mg/dL (74-106); Sodium Level 136 mmol/L (136-145)
[2017-12-03] MEDS: Albuterol 2.5 MG/3 ML VIAL.NEB. INHALATION ×3 (06:50→18:54)
[2017-12-03] MEDS: Budesonide Respules 0.5 MG/2 ML AMPUL.NEB. INHALATION ×2 (06:50→18:54)
--- NOTE | 2017-12-03 08:15 | PCM.PN.HOSP ---
Patient Problems: Active and Suspected Problems Cellulitis (Acute) Altered mental status, unspecified (Acute) Sepsis affecting skin (Acute) Acute encephalopathy (Acute) MRSA bacteremia (Acute) Subjective: Patient scheduled to undergo subsequent evaluation with MOSES to rule out endocarditis in view of her MRSA bacteremia with patient MOSES was negative for endocarditis however still has persistent bacteremia antibiotics subsequently adjusted by infectious disease. Patient was also found to have labored breathing with increasing respiratory rates and oxygen demand checks x-ray ordered to rule out pneumonia Objective: GENERAL: Cooperative HEENT: Atraumatic; moist oral mucosa EYES; Anicteric, Normal Conjunctiva NECK; supple, normal thyroid, no distended JVD. RESPIRATORY: Diminished to auscultation bilaterally, CARDIOVASCULAR: Regular S1 S2, no audible murmurs GI: soft, non-tender, normoactive bowel sounds, : No Renal angle tenderness; No ibarra EXTREMITIES: Left upper extremity infiltrated with IV fluid MUSCULOSKELTAL: No Joint Tenderness; no muscle waisting NEURO: Awake; no lateralizing signs. SKIN: Erythema right buttock PSYCH; flat affect Vitals/I&O's: Vital Signs Temp Pulse Resp BP Pulse Ox 98.7 F 82 20 H 206/88 H 95 12/03/17 07:51 12/03/17 07:51 12/03/17 07:51 12/03/17 07:51 12/03/17 07:51 Oxygen Flow Rate (L/min) 3 Oxygen Delivery Method Nasal Cannula Weight: 79.8 kg Body Mass Index (BMI) 32.1 Intake and Output for Last 24 Hours 12/01/17 12/02/17 12/03/17 23:59 23:59 23:59 Intake Total 2178 / 2178 1221 / 1221 1005 / 1005 Balance 2178 / 2178 1221 / 1221 1005 / 1005 Microbiology Past 72 Hours 12/02/17 09:44 Blood Culture (Wb) - Right Hand Blood Culture - Preliminary 12/01/17 11:20 Blood Culture (Wb) - Right Hand Blood Culture - Preliminary Staphylococcus aureus 11/30/17 16:20 Incision/Surgical Site Gram Stain - Final 11/30/17 16:20 Incision/Surgical Site Wound Culture - Final Meth. resistant Staph. aureus 11/30/17 16:20 Incision/Surgical Site Anaerobic Culture - Final No anaerobic bacteria isolated. 11/30/17 16:16 Incision/Surgical Site Gram Stain - Final 11/30/17 16:16 Incision/Surgical Site Wound Culture - Final Meth. resistant Staph. aureus 11/30/17 16:16 Incision/Surgical Site Anaerobic Culture - Final No anaerobic bacteria isolated. 11/29/17 19:40 Urine, Clean Catch Urine Culture - Final Culture exhibits no growth. 11/29/17 19:25 Blood Culture (Wb) - Venous Blood Culture - Final Staphylococcus aureus 11/29/17 20:30 Blood Culture (Wb) - Anticubital Left Bacteria Detection (PCR) - Final Staphylococcus aureus mecA Resistance Marker 11/29/17 20:30 Blood Culture (Wb) - Anticubital Left Blood Culture - Final Meth. resistant Staph. aureus Laboratory Results 11/29/17 19:25: Total Protein (PEP) 6.3, IgG 583 L, IgA 159, IgM 105, Immunofixation Screen Comment, Albumin (LORA) 2.6 L, Albumin/Globulin (LORA) 0.8, Vfzzg-0-Lbgicpiei LORA 0.7 H, Kzajv-7-Wmstabyiw LORA 1.4 H, Beta-Globulins (LORA) 1.0, Gamma Globulins (LORA) 3.7, LORA M-Wellington , LORA Comments Comment, Urine Immunofixation TNP 12/02/17 07:58: Creatinine Cancelled, Estim Creat Clear Calc Cancelled, Est GFR (MDRD) Af Amer Cancelled, Est GFR (MDRD) Non-Af Cancelled 12/02/17 07:58: Sodium 133 L, Potassium 3.4 L, Chloride 100, Carbon Dioxide 28.0, Anion Gap 5, BUN 18, Creatinine 0.63, Estim Creat Clear Calc 40.81, Est GFR (MDRD) Af Amer 120, Est GFR (MDRD) Non-Af 99, BUN/Creatinine Ratio 28.5 H, Glucose 112 H, Calcium 7.5 L, Magnesium 1.9 12/03/17 05:22: WBC 11.7 H, RBC 3.24 L, Hgb 9.0 L, Hct 27.8 L, MCV 85.8, MCH 27.8, MCHC 32.4, RDW 14.5, RDW Differential 43.9, Plt Count 188, MPV 10.7 12/03/17 05:22: Sodium 136, Potassium 3.0 L, Chloride 97 L, Carbon Dioxide 30.0, Anion Gap 9, BUN 17, Creatinine 0.52 L, Estim Creat Clear Calc 40.81, Est GFR (MDRD) Af Amer 148, Est GFR (MDRD) Non-Af 122, BUN/Creatinine Ratio 32.4 H, Glucose 106, Calcium 7.6 L Current Medications Acetaminophen (Tylenol) 650 mg PO Q6H PRN PRN PRN Reason: Mild Pain (scale 0-3)/T>100.7 Last Admin: 12/02/17 20:56 Dose: 650 mg Albuterol Sulfate (Ventolin Aerosols) 2.5 mg INHALATION Q6HWA.RT [facility] Last Admin: 12/03/17 06:50 Dose: 2.5 mg Budesonide (Pulmicort Aerosol) 0.5 mg INHALATION Q12H.RT [facility] Last Admin: 12/03/17 06:50 Dose: 0.5 mg Heparin Sodium (Porcine) (Heparin Na) 5,000 unit SC Q8 [facility] Last Admin: 12/03/17 05:41 Dose: 5,000 unit Hydrochlorothiazide (Hydrochlorothiazide) 12.5 mg PO DAILY [facility] Last Admin: 12/02/17 10:10 Dose: 12.5 mg Vancomycin IV Pharmacy to Dose (1,250 ea/ Sodium Chloride) 500 mls @ 250 mls/hr IV PRN PRN; Protocol Vancomycin HCl 1,250 mg/ (Sodium Chloride) 275 mls @ 167 mls/hr IV Q12H [facility] Last Admin: 12/03/17 04:19 Dose: 167 mls/hr Sodium Chloride () 1,000 mls @ 75 mls/hr IV .[id number] [facility] Last Admin: 12/03/17 05:46 Dose: 75 mls/hr Labetalol HCl (Trandate) 10 mg IV Q4H PRN PRN PRN Reason: SBP > 160 Lisinopril (Zestril) 10 mg PO DAILY [facility] Last Admin: 12/02/17 10:10 Dose: 10 mg Magnesium Hydroxide (Milk Of Magnesia) 30 ml PO DAILY PRN PRN PRN Reason: Constipation Nutritional Formula (Lactose Free) (Ensure Enlive) 120 ml PO 4X/DAY [facility] Last Admin: 12/02/17 22:32 Dose: Not Given Ondansetron HCl (Zofran) 4 mg IV Q8H PRN PRN PRN Reason: Nausea Senna/Docusate Sodium (Senokot-S, Radha-Colace) 1 tablet PO BID DRE Last Admin: 12/02/17 20:58 Dose: 1 tablet Sodium Chloride () 5 - 30 ml IV UD PRN PRN Reason: SALINE FLUSH Last Admin: 12/01/17 15:30 Dose: 10 ml Medical Necessity - Tobacco Use Smoking Status: Never smoker Assessment/Plan All Active Problems Cellulitis (Acute) Altered mental status, unspecified (Acute) Sepsis affecting skin (Acute) Acute encephalopathy (Acute) MRSA bacteremia (Acute) Hip pain, right (Acute) Acute back pain (Acute) Patient is a 72-year-old lady with history of chronic back pain who underwent pain pump insertion in her right buttock on account of sciatica on 11/13/[address] Brown. Patient was brought to the emergency department due to functional decline and increasing lethargy. An assessment of pain pump infection made antibiotics initiated per protocol and patient admitted to regular nursing floor for subsequent management 1. Acute infectious encephalopathy secondary to pain pump infection. Patient underwent subsequent evaluation with CT of the head with contrast as well as MRI of the brain there was no evidence of brain abscess 2. Pain pump infection with staph aureus: She has been admitted to regular nursing floor vancomycin and Zosyn started on admission after cultures have been obtained. Consultation was placed to infectious disease as well as Dr. Brown with pain management (case discussed with him) Plan is for removal of the foreign body.Patient underwent hardware (pain pump as well as pain stimulator from the back) removal by Dr. Brown on 11/30/2017. Blood cultures obtained on admission positive for Staphylococcus aureus with meca resistance patient was seen in consultation by Dr. Pandey with infectious disease who recommended for patient undergo TTE as well as MRI.. TTE was reported to be technically difficult however there was no evidence of endocarditis subsequently underwent MOSES. MOSES was negative for endocarditis however still has persistent bacteremia antibiotics subsequently adjusted by infectious disease. 3. Acute dyspnea with labored breathing with increasing respiratory rates and oxygen demand checks x-ray ordered to rule out pneumonia 4. Hypertension-blood pressure controlled, home medications continued with dose adjustment as needed 5. Sepsis ruled out criteria not met 6. Hypokalemia corrected per protocol 7. COPD currently not in exacerbation 8. DVT prophylaxis SC heparin Code Visit Inpatient E&M: 28342 Subs Hosp L3
--- NOTE | 2017-12-03 10:33 | PCM.PN.ID ---
Patient Problems: Active and Suspected Problems Cellulitis (Acute) Altered mental status, unspecified (Acute) Sepsis affecting skin (Acute) Acute encephalopathy (Acute) MRSA bacteremia (Acute) Subjective: Sleepy s/p MOSES this AM. Improved fever overnight. Pain improved in back. - Physical Exam General: Cooperative, No apparent distress Lungs: Clear to auscultation, Normal air movement Cardiovascular: Regular rate, Regular Rhythm Abdomen: Soft, Non Tender, Non-Distended Skin: No rashes Vital Signs Temp Pulse Resp BP Pulse Ox 98.7 F 82 18 159/75 H 95 12/03/17 07:51 12/03/17 10:30 12/03/17 10:30 12/03/17 10:30 12/03/17 10:30 Oxygen Flow Rate (L/min) 3 Oxygen Delivery Method Nasal Cannula Weight: 79.8 kg Body Mass Index (BMI) 32.1 Intake and Output for Last 24 Hours 12/01/17 12/02/17 12/03/17 23:59 23:59 23:59 Intake Total 2178 / 2178 1221 / 1221 1005 / 1005 Balance 2178 / 2178 1221 / 1221 1005 / 1005 Microbiology Past 72 Hours 12/02/17 09:44 Blood Culture - Preliminary Blood Culture (Wb) - Right Hand 12/01/17 11:20 Blood Culture - Preliminary Blood Culture (Wb) - Right Hand Staphylococcus aureus 11/30/17 16:20 Gram Stain - Final Incision/Surgical Site Wound Culture - Final Meth. resistant Staph. aureus Anaerobic Culture - Final No anaerobic bacteria isolated. 11/30/17 16:16 Gram Stain - Final Incision/Surgical Site Wound Culture - Final Meth. resistant Staph. aureus Anaerobic Culture - Final No anaerobic bacteria isolated. 11/29/17 19:40 Urine Culture - Final Urine, Clean Catch Culture exhibits no growth. 11/29/17 19:25 Blood Culture - Final Blood Culture (Wb) - Venous Staphylococcus aureus 11/29/17 20:30 Bacteria Detection (PCR) - Final Blood Culture (Wb) - Anticubital Left Staphylococcus aureus mecA Resistance Marker Blood Culture - Final Meth. resistant Staph. aureus Laboratory Tests Past 24 Hrs 11/29/17 12/03/17 12/03/17 19:25 05:22 05:22 WBC 11.7 H RBC 3.24 L Hgb 9.0 L Hct 27.8 L MCV 85.8 MCH 27.8 MCHC 32.4 RDW 14.5 RDW Differential 43.9 Plt Count 188 MPV 10.7 Sodium 136 Potassium 3.0 L Chloride 97 L Carbon Dioxide 30.0 Anion Gap 9 BUN 17 Creatinine 0.52 L Estim Creat Clear Calc 40.81 Est GFR (MDRD) Af Amer 148 Est GFR (MDRD) Non-Af 122 BUN/Creatinine Ratio 32.4 H Glucose 106 Calcium 7.6 L Total Protein (PEP) 6.3 IgG 583 L IgA 159 IgM 105 Immunofixation Screen Comment Albumin (LORA) 2.6 L Albumin/Globulin (LORA) 0.8 Zljta-5-Ruheboznn LORA 0.7 H Qqmqx-2-Jmvamkghw LORA 1.4 H Beta-Globulins (LORA) 1.0 Gamma Globulins (LORA) 3.7 LORA M-Wellington LORA Comments Comment Urine Immunofixation TNP Medical Necessity - Tobacco Use Smoking Status: Never smoker Route of nutrition/ use of supplements: [] Nutritional Intake: [] IV Site: [] Painting Catheter: [] - Assessment/Plan Antibiotics: [] Assessment/Plan: [] Active and Suspected Problems Cellulitis (Acute) Altered mental status, unspecified (Acute) Sepsis affecting skin (Acute) Acute encephalopathy (Acute) MRSA bacteremia - recent spine stimulator placement as source. Removal done 11/30 with heavy purulence at both surgical sites. On vanc. CT showed no clear abscess, but there are sizeable areas of induration. MOSES pending. Bcx from 12/02 still (+) for GPC. Will change to dapto for better bactericidal effect. Will follow
--- NOTE | 2017-12-03 11:40 | NURSING ---
wound photo: mid back
--- NOTE | 2017-12-03 11:40 | NURSING ---
wound photo: right lower back/upper buttock area
--- NOTE | 2017-12-03 12:56 | RAD_ITS ---
STUDY: X-RAY CHEST REASON FOR EXAM: Female, 72 years old. Shortness of breath TECHNIQUE: AP COMPARISON: 11/29/2017 FINDINGS: Central pulmonary vascular congestion and perihilar/basilar interstitial densities are new since the prior study. No sizable pleural effusion. There is mild cardiac enlargement. Normal mediastinum and awilda. Normal visualized pulmonary arteries. There is atherosclerotic calcification of the aortic arch with tortuosity. Neurostimulator leads have been removed. There are surgical clips projecting over the upper abdomen. Normal visualized ribs, clavicles, and shoulders. There is no demonstrated abnormality of the visualized soft tissue structures of the upper abdomen. RAD/Chest 1 View (Portable) IMPRESSION: Mild interstitial edema. No sizable effusion. Electronically Signed: Fred Murray MD at 15:38 EDT , Service support ,
[2017-12-03] MEDS: Senna/Docusate Sodium 1 Tablet PO ×2 (13:57→22:13)
[2017-12-03] MEDS: HYDROCHLOROTHIAZIDE 12.5 MG CAPSULE PO (13:57)
[2017-12-03] MEDS: Lisinopril 10 MG Tablet PO (13:57)
[2017-12-03] MEDS: Acetaminophen 325 MG Tablet 650 MG PO ×2 (14:19→20:00)
[2017-12-04] VITALS (15 sets, daily range): BP systolic 125–152; BP diastolic 59–82; PULSE 70–86; RESP 20–28; TEMP 36.8–37.8; O2SAT 93–97
[2017-12-04] MEDS: 0.9% Normal Saline 1,000 ML 75 ML IV ×2 (03:38→18:05)
[2017-12-04] MEDS: Acetaminophen 325 MG Tablet 650 MG PO ×3 (03:38→18:27)
[2017-12-04 06:42] LABS: Hematocrit 27.2 % (37-47); Hemoglobin 8.8 g/dl (12.0-15.0); Mean Corp Hgb Conc 32.4 g/gl (32-36); Mean Corpuscular Hgb 27.6 pg (27.0-32.0); Mean Corpuscular Volume 85.3 fL (81-99); Mean Platelet Vol. 10.6 fl (6.2-12.0); Platelet Count 195 K/mm3 (150-450); RBC Distribution Width CV 14.4 % (11.6-14.6); RBC Distribution Width SD 43.5 fl (35.1-43.9); Red Blood Count 3.19 M/mm3 (4.2-5.4); White Blood Count 11.4 K/mm3 (4.4-11.0)
[2017-12-04 06:43] LABS: Scan Indicated on CBC? Y/N NO
[2017-12-04] MEDS: 0.9% NaCl Peripheral Flush Adult/Peds IV ×2 (06:48→08:42)
[2017-12-04] MEDS: Ondansetron 4 MG/2 ML Vial IV (06:48)
[2017-12-04 06:56] LABS: Anion Gap 7 (5-15); BUN 15 mg/dL (7-18); BUN/Creat Ratio 27.5 RATIO (10-20); Calcium,Total 7.5 mg/dL (8.5-10.1); Chloride 97 mmol/L (98-107); Creatinine, Serum 0.55 mg/dL (0.55-1.02); EST Glomerular Filtration Rate 117 mL/min (>60); Est Glom Filt Rate - Afr Amer 141 mL/min (>60); Estimated Creatinine Clearance 40.81 ml/min; Glucose 132 mg/dL (74-106); Potassium 3.2 mmol/L (3.5-5.1); Sodium Level 134 mmol/L (136-145)
[2017-12-04] MEDS: Budesonide Respules 0.5 MG/2 ML AMPUL.NEB. INHALATION ×2 (07:33→19:03)
[2017-12-04] MEDS: Albuterol 2.5 MG/3 ML VIAL.NEB. INHALATION ×3 (07:33→19:02)
--- NOTE | 2017-12-04 07:44 | PN_ITS ---
Patient Problems: Active and Suspected Problems Cellulitis (Acute) Altered mental status, unspecified (Acute) Sepsis affecting skin (Acute) Acute encephalopathy (Acute) MRSA bacteremia (Acute) Subjective: Patient seen breathing remains labored at rest. Imaging studies obtained on 12/03/2017 demonstrated features consistent with pulmonary vascular congestion and order was given for patient to receive 60 mg of Lasix Ibarra catheter was placed for accurate input and output Objective: GENERAL: Cooperative HEENT: Atraumatic; moist oral mucosa EYES; Anicteric, Normal Conjunctiva NECK; supple, normal thyroid, no distended JVD. RESPIRATORY: Diminished to auscultation bilaterally, CARDIOVASCULAR: Regular S1 S2, no audible murmurs GI: soft, non-tender, normoactive bowel sounds, : No Renal angle tenderness; No ibarra EXTREMITIES: Left upper extremity infiltrated with IV fluid MUSCULOSKELTAL: No Joint Tenderness; no muscle waisting NEURO: Awake; no lateralizing signs. SKIN: Erythema right buttock PSYCH; flat affect Vitals/I&O's: Vital Signs Temp Pulse Resp BP Pulse Ox 98.7 F 84 28 H 125/82 H 93 12/04/17 06:40 12/04/17 07:33 12/04/17 07:33 12/04/17 06:40 12/04/17 07:35 Oxygen Flow Rate (L/min) 3 Oxygen Delivery Method Nasal Cannula Weight: 79.8 kg Body Mass Index (BMI) 32.1 Intake and Output for Last 24 Hours 12/02/17 12/03/17 12/04/17 23:59 23:59 23:59 Intake Total 1221 / 1221 2208 / 2208 583 / 583 Balance 1221 / 1221 2208 / 2208 583 / 583 Microbiology Past 72 Hours 12/02/17 09:44 Blood Culture (Wb) - Right Hand Blood Culture - Preliminary 12/01/17 11:20 Blood Culture (Wb) - Right Hand Blood Culture - Preliminary Staphylococcus aureus 11/30/17 16:20 Incision/Surgical Site Gram Stain - Final 11/30/17 16:20 Incision/Surgical Site Wound Culture - Final Meth. resistant Staph. aureus 11/30/17 16:20 Incision/Surgical Site Anaerobic Culture - Final No anaerobic bacteria isolated. 11/30/17 16:16 Incision/Surgical Site Gram Stain - Final 11/30/17 16:16 Incision/Surgical Site Wound Culture - Final Meth. resistant Staph. aureus 11/30/17 16:16 Incision/Surgical Site Anaerobic Culture - Final No anaerobic bacteria isolated. 11/29/17 19:40 Urine, Clean Catch Urine Culture - Final Culture exhibits no growth. 11/29/17 19:25 Blood Culture (Wb) - Venous Blood Culture - Final Staphylococcus aureus 11/29/17 20:30 Blood Culture (Wb) - Anticubital Left Bacteria Detection (PCR) - Final Staphylococcus aureus mecA Resistance Marker 11/29/17 20:30 Blood Culture (Wb) - Anticubital Left Blood Culture - Final Meth. resistant Staph. aureus Laboratory Results 12/04/17 05:25: WBC 11.4 H, RBC 3.19 L, Hgb 8.8 L, Hct 27.2 L, MCV 85.3, MCH 27.6, MCHC 32.4, RDW 14.4, RDW Differential 43.5, Plt Count 195, MPV 10.6 12/04/17 05:25: Sodium 134 L, Potassium 3.2 L, Chloride 97 L, Carbon Dioxide 30.0, Anion Gap 7, BUN 15, Creatinine 0.55, Estim Creat Clear Calc 40.81, Est GFR (MDRD) Af Amer 141, Est GFR (MDRD) Non-Af 117, BUN/Creatinine Ratio 27.5 H, Glucose 132 H, Calcium 7.5 L Current Medications Acetaminophen (Tylenol) 650 mg PO Q6H PRN PRN PRN Reason: Mild Pain (scale 0-3)/T>100.7 Last Admin: 12/04/17 03:38 Dose: 650 mg Albuterol Sulfate (Ventolin Aerosols) 2.5 mg INHALATION Q6HWA.RT [facility] [place] Last Admin: 12/04/17 07:33 Dose: 2.5 mg Budesonide (Pulmicort Aerosol) 0.5 mg INHALATION Q12H.RT [facility] [place] Last Admin: 12/04/17 07:33 Dose: 0.5 mg Enoxaparin Sodium (Lovenox) 40 mg SC DAILY DRE Hydrochlorothiazide (Hydrochlorothiazide) 12.5 mg PO DAILY [facility] [place] Last Admin: 12/03/17 13:57 Dose: 12.5 mg Sodium Chloride () 1,000 mls @ 75 mls/hr IV .[id number] [facility] [place] Last Admin: 12/04/17 03:38 Dose: 75 mls/hr Daptomycin 650 mg/ Sodium (Chloride) 63 mls @ 100 mls/hr IV Q24 [facility] [place] Last Admin: 12/03/17 12:00 Dose: 100 mls/hr Labetalol HCl (Trandate) 10 mg IV Q4H PRN PRN PRN Reason: SBP > 160 Lisinopril (Zestril) 10 mg PO DAILY [facility] [place] Last Admin: 12/03/17 13:57 Dose: 10 mg Magnesium Hydroxide (Milk Of Magnesia) 30 ml PO DAILY PRN PRN PRN Reason: Constipation Nutritional Formula (Lactose Free) (Ensure Clear) 120 ml PO 4X/DAY [facility] [place] Ondansetron HCl (Zofran) 4 mg IV Q8H PRN PRN PRN Reason: Nausea Last Admin: 12/04/17 06:48 Dose: 4 mg Senna/Docusate Sodium (Senokot-S, Radha-Colace) 1 tablet PO BID [facility] [place] Last Admin: 12/03/17 22:13 Dose: 1 tablet Sodium Chloride () 5 - 30 ml IV UD PRN PRN Reason: SALINE FLUSH Last Admin: 12/04/17 06:48 Dose: 10 ml Medical Necessity - Tobacco Use Smoking Status: Never smoker Assessment/Plan All Active Problems Cellulitis (Acute) Altered mental status, unspecified (Acute) Sepsis affecting skin (Acute) Acute encephalopathy (Acute) MRSA bacteremia (Acute) Hip pain, right (Acute) Acute back pain (Acute) Patient is a 72-year-old lady with history of chronic back pain who underwent pain pump insertion in her right buttock on account of sciatica on 11/13/[address] Brown. Patient was brought to the emergency department due to functional decline and increasing lethargy. An assessment of pain pump infection made antibiotics initiated per protocol and patient admitted to regular nursing floor for subsequent management 1. Acute infectious encephalopathy secondary to pain pump infection. Patient underwent subsequent evaluation with CT of the head with contrast as well as MRI of the brain there was no evidence of brain abscess 2. Pain pump infection with staph aureus: She has been admitted to regular nursing floor vancomycin and Zosyn started on admission after cultures have been obtained. Consultation was placed to infectious disease as well as Dr. Brown with pain management (case discussed with him) Plan is for removal of the foreign body.Patient underwent hardware (pain pump as well as pain stimulator from the back) removal by Dr. Brown on 11/30/2017. Blood cultures obtained on admission positive for Staphylococcus aureus with meca resistance patient was seen in consultation by Dr. Pandey with infectious disease who recommended for patient undergo TTE as well as MRI.. TTE was reported to be technically difficult however there was no evidence of endocarditis subsequently underwent MOSES. MOSES was negative for endocarditis however still has persistent bacteremia antibiotics subsequently adjusted by infectious disease.. Patient was started on daptomycin by infectious disease on 12/02/2017. Zosyn and vancomycin discontinued on same day 3. Acute dyspnea with labored breathing with increasing respiratory rates and oxygen demand checks x-ray ordered to rule out pneumonia 4. Hypertension-blood pressure controlled, home medications continued with dose adjustment as needed 5. Sepsis ruled out criteria not met 6. Hypokalemia corrected per protocol 7. COPD currently not in exacerbation 8. DVT prophylaxis SC heparin 9. Acute respiratory insufficiency secondary to heart failure with preserved ejection fraction. Chest x-ray demonstrated pulmonary vascular congestion from fluid overload and order was given for patient to receive Lasix EF on MOSES obtained on 12/03/2017 demonstrated EF of 65% Active Medications Acetaminophen (Tylenol) 650 mg PO Q6H PRN PRN PRN Reason: Mild Pain (scale 0-3)/T>100.7 Last Admin: 12/04/17 03:38 Dose: 650 mg Albuterol Sulfate (Ventolin Aerosols) 2.5 mg INHALATION Q6HWA.RT [facility] [place] Last Admin: 12/04/17 07:33 Dose: 2.5 mg Budesonide (Pulmicort Aerosol) 0.5 mg INHALATION Q12H.RT [facility] Last Admin: 12/04/17 07:33 Dose: 0.5 mg Enoxaparin Sodium (Lovenox) 40 mg SC DAILY DRE Hydrochlorothiazide (Hydrochlorothiazide) 12.5 mg PO DAILY [facility] [place] Last Admin: 12/03/17 13:57 Dose: 12.5 mg Sodium Chloride () 1,000 mls @ 75 mls/hr IV .[id number] [facility] [place] Last Admin: 12/04/17 03:38 Dose: 75 mls/hr Daptomycin 650 mg/ Sodium (Chloride) 63 mls @ 100 mls/hr IV Q24 DRE Last Admin: 12/03/17 12:00 Dose: 100 mls/hr Labetalol HCl (Trandate) 10 mg IV Q4H PRN PRN PRN Reason: SBP > 160 Lisinopril (Zestril) 10 mg PO DAILY [facility] [place] Last Admin: 12/03/17 13:57 Dose: 10 mg Magnesium Hydroxide (Milk Of Magnesia) 30 ml PO DAILY PRN PRN PRN Reason: Constipation Nutritional Formula (Lactose Free) (Ensure Clear) 120 ml PO 4X/DAY [facility] [place] Ondansetron HCl (Zofran) 4 mg IV Q8H PRN PRN PRN Reason: Nausea Last Admin: 12/04/17 06:48 Dose: 4 mg Senna/Docusate Sodium (Senokot-S, Radha-Colace) 1 tablet PO BID [facility] [place] Last Admin: 12/03/17 22:13 Dose: 1 tablet Sodium Chloride () 5 - 30 ml IV UD PRN PRN Reason: SALINE FLUSH Last Admin: 12/04/17 06:48 Dose: 10 ml Clinical Impression(s) from Imaging Studies Chest X-Ray 12/03/17 12:56 IMPRESSION: Mild interstitial edema. No sizable effusion. Electronically Signed: Fred Murray MD at 15:38 EDT , Service support , Microbiology 12/02/17 09:44 Blood Culture (Wb) - Right Hand Blood Culture - Preliminary 12/01/17 11:20 Blood Culture (Wb) - Right Hand Blood Culture - Preliminary Staphylococcus aureus 11/30/17 16:20 Incision/Surgical Site Gram Stain - Final 11/30/17 16:20 Incision/Surgical Site Wound Culture - Final Meth. resistant Staph. aureus 11/30/17 16:20 Incision/Surgical Site Anaerobic Culture - Final No anaerobic bacteria isolated. 11/30/17 16:16 Incision/Surgical Site Gram Stain - Final 11/30/17 16:16 Incision/Surgical Site Wound Culture - Final Meth. resistant Staph. aureus 11/30/17 16:16 Incision/Surgical Site Anaerobic Culture - Final No anaerobic bacteria isolated. 11/29/17 19:40 Urine, Clean Catch Urine Culture - Final Culture exhibits no growth. 11/29/17 19:25 Blood Culture (Wb) - Venous Blood Culture - Final Staphylococcus aureus 11/29/17 20:30 Blood Culture (Wb) - Anticubital Left Bacteria Detection (PCR) - Final Staphylococcus aureus mecA Resistance Marker 11/29/17 20:30 Blood Culture (Wb) - Anticubital Left Blood Culture - Final Meth. resistant Staph. aureus Code Visit Inpatient E&M: 46925 Subs Hosp L2
[2017-12-04] MEDS: Furosemide 100 MG/10 ML Vial 60 MG IV (08:41)
[2017-12-04] MEDS: HYDROCHLOROTHIAZIDE 12.5 MG CAPSULE PO (10:31)
[2017-12-04] MEDS: Senna/Docusate Sodium 1 Tablet PO (10:31)
[2017-12-04] MEDS: Lisinopril 10 MG Tablet PO (10:31)
[2017-12-04] MEDS: Enoxaparin 40 MG/0.4 ML Syringe SC (10:31)
--- NOTE | 2017-12-04 10:41 | CASEMGMT ---
Social Work Note SW in to pt's room to see if pt's daughter Jeimy left list of SNF for this worker. No list in pt's room. SW attempted to call pt's daughter Jeimy but didn't get an answer and no voicemail is set up. SW will attempt to call pt's daughter again today. 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
--- NOTE | 2017-12-04 10:54 | PCM.PN.BLA ---
Progress Note Pt continues to have low grade fever, weak, debiliated, unable to feed herself. Assisted with her meals. no obvious secondary cause for proteinuria on serologies, protein electrophoresis. May have mesangiopathy from NSAID use. recommend to avoid NSAID use on discharge and repeat UPCR in a few months. Renal function stable. Hx proteinuria on UA in 2008 from [facility] records. UA from 2016 negative for protein. Has been on NSAIDS chronically in the past and present. Replace potassium follow up in office in 1 month
--- NOTE | 2017-12-04 11:45 | CASEMGMT ---
Social Work Note SW received call from pt's daughter Jeimy stating she has reviewed SNF list that was provided to her. Jeimy states that her first choice is [facility] and second choice is [facility]. SW placed a call to referral line and left a referral for pt. Physicians are stating that pt will not be ready for discharge until next week. SW waiting to hear back from TCU in regards to bed availability. 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
[2017-12-04 13:56] LABS: CPK Total, Creatine Kinase 20 U/L (26-192)
--- NOTE | 2017-12-04 14:14 | PN.ID_ITS ---
Patient Problems: Active and Suspected Problems Cellulitis (Acute) Altered mental status, unspecified (Acute) Sepsis affecting skin (Acute) Acute encephalopathy (Acute) MRSA bacteremia (Acute) Subjective: Feeling ok, but legs aching, R forearm sore s/p midline placement yesterday. No fever. - Physical Exam General: Cooperative, No apparent distress Lungs: Clear to auscultation, Normal air movement Cardiovascular: Regular rate, Regular Rhythm Abdomen: Soft, Non Tender, Non-Distended Skin: No rashes Musculoskeletal: No Tenderness to Palpation of Joints or Extremities Vital Signs Temp Pulse Resp BP Pulse Ox 98.8 F 74 26 H 148/75 H 95 12/04/17 12:09 12/04/17 14:03 12/04/17 14:03 12/04/17 12:09 12/04/17 12:09 Oxygen Flow Rate (L/min) 3 Oxygen Delivery Method Nasal Cannula Weight: 79.8 kg Body Mass Index (BMI) 32.1 Intake and Output for Last 24 Hours 12/02/17 12/03/17 12/04/17 23:59 23:59 23:59 Intake Total 1221 / 1221 2208 / 2208 1180.8 / 1180.8 Output Total 2024 / 2024 Balance 1221 / 1221 2208 / 2208 -844.2 / -844.2 Microbiology Past 72 Hours 12/03/17 11:35 Blood Culture - Preliminary Blood Culture (Wb) - Right Hand 12/02/17 09:44 Blood Culture - Preliminary Blood Culture (Wb) - Right Hand Staphylococcus aureus 12/01/17 11:20 Blood Culture - Preliminary Blood Culture (Wb) - Right Hand Staphylococcus aureus 11/30/17 16:20 Gram Stain - Final Incision/Surgical Site Wound Culture - Final Meth. resistant Staph. aureus Anaerobic Culture - Final No anaerobic bacteria isolated. 11/30/17 16:16 Gram Stain - Final Incision/Surgical Site Wound Culture - Final Meth. resistant Staph. aureus Anaerobic Culture - Final No anaerobic bacteria isolated. 11/29/17 19:40 Urine Culture - Final Urine, Clean Catch Culture exhibits no growth. 11/29/17 19:25 Blood Culture - Final Blood Culture (Wb) - Venous Staphylococcus aureus 11/29/17 20:30 Bacteria Detection (PCR) - Final Blood Culture (Wb) - Anticubital Left Staphylococcus aureus mecA Resistance Marker Blood Culture - Final Meth. resistant Staph. aureus Laboratory Tests Past 24 Hrs 12/04/17 12/04/17 12/04/17 05:25 05:25 05:25 WBC 11.4 H RBC 3.19 L Hgb 8.8 L Hct 27.2 L MCV 85.3 MCH 27.6 MCHC 32.4 RDW 14.4 RDW Differential 43.5 Plt Count 195 MPV 10.6 Sodium 134 L Potassium 3.2 L Chloride 97 L Carbon Dioxide 30.0 Anion Gap 7 BUN 15 Creatinine 0.55 Estim Creat Clear Calc 40.81 Est GFR (MDRD) Af Amer 141 Est GFR (MDRD) Non-Af 117 BUN/Creatinine Ratio 27.5 H Glucose 132 H Calcium 7.5 L Total Creatine Kinase 20 L Medical Necessity - Tobacco Use Smoking Status: Never smoker Route of nutrition/ use of supplements: [] Nutritional Intake: [] IV Site: [] Painting Catheter: [] - Assessment/Plan Antibiotics: [] Assessment/Plan: [] Active and Suspected Problems Cellulitis (Acute) Altered mental status, unspecified (Acute) Sepsis affecting skin (Acute) Acute encephalopathy (Acute) MRSA bacteremia - recent spine stimulator placement as source. Removal done 11/30 with heavy purulence at both surgical sites. CT showed no clear abscess, but there are sizeable areas of induration. MOSES neg for veg. Bcx from 12/03 still (+) for GPC, turned (+) in just over 24h. 12/03 changed to dapto for b suyapa bactericidal effect. CK is normal this AM. Spoke with micro lab and requested send out testing for dapto and ceftaroline. Incisions doing well. Will follow
[2017-12-05] VITALS (11 sets, daily range): BP systolic 126–157; BP diastolic 59–79; PULSE 76–90; RESP 15–24; TEMP 36.7–37.9; O2SAT 93–97
[2017-12-05] MEDS: Acetaminophen 325 MG Tablet 650 MG PO ×3 (00:27→17:22)
[2017-12-05] MEDS: Albuterol 2.5 MG/3 ML VIAL.NEB. INHALATION ×3 (07:14→20:11)
[2017-12-05] MEDS: Budesonide Respules 0.5 MG/2 ML AMPUL.NEB. INHALATION ×2 (07:14→20:11)
[2017-12-05 07:38] LABS: Anion Gap 4 (5-15); BUN 16 mg/dL (7-18); BUN/Creat Ratio 26.3 RATIO (10-20); Calcium,Total 7.7 mg/dL (8.5-10.1); Chloride 95 mmol/L (98-107); Creatinine, Serum 0.61 mg/dL (0.55-1.02); EST Glomerular Filtration Rate 103 mL/min (>60); Est Glom Filt Rate - Afr Amer 125 mL/min (>60); Estimated Creatinine Clearance 40.81 ml/min; Glucose 106 mg/dL (74-106); Potassium 3.5 mmol/L (3.5-5.1); Sodium Level 132 mmol/L (136-145)
--- NOTE | 2017-12-05 09:28 | PN_ITS ---
Patient Problems: Active and Suspected Problems Cellulitis (Acute) Altered mental status, unspecified (Acute) Sepsis affecting skin (Acute) Acute encephalopathy (Acute) MRSA bacteremia (Acute) Subjective: Patient seen still remains bacteremic with MRSA. Sodium slightly down from patient being on HCTZ which has since been discontinued. Echo demonstrated preserved ejection fraction. 12/05/2017: Patient seen appears much more motivated to part spent in physical therapy. Objective: GENERAL: Cooperative HEENT: Atraumatic; moist oral mucosa EYES; Anicteric, Normal Conjunctiva NECK; supple, normal thyroid, no distended JVD. RESPIRATORY: Diminished to auscultation bilaterally, CARDIOVASCULAR: Regular S1 S2, no audible murmurs GI: soft, non-tender, normoactive bowel sounds, : No Renal angle tenderness; Painting insitu EXTREMITIES: Left upper extremity infiltrated with IV fluid MUSCULOSKELETAL: No Joint Tenderness; no muscle waisting NEURO: Awake; no lateralizing signs. SKIN: Erythema right buttock PSYCH; flat affect Vitals/I&O's: Vital Signs Temp Pulse Resp BP Pulse Ox 98.0 F 76 18 140/67 H 97 12/05/17 04:00 12/05/17 06:00 12/05/17 06:00 12/05/17 04:00 12/05/17 04:00 Oxygen Flow Rate (L/min) 3 Oxygen Delivery Method Room Air Weight: 79.8 kg Body Mass Index (BMI) 32.1 Intake and Output for Last 24 Hours 12/03/17 12/04/17 12/05/17 23:59 23:59 23:59 Intake Total 2208 / 2208 1801.8 / 1801.8 607 / 607 Output Total 3375 / 3375 450 / 450 Balance 2208 / 2208 -1573.2 / -1573.2 157 / 157 Microbiology Past 72 Hours 12/03/17 11:35 Blood Culture (Wb) - Right Hand Blood Culture - Final Staphylococcus aureus 12/02/17 09:44 Blood Culture (Wb) - Right Hand Blood Culture - Final Meth. resistant Staph. aureus 12/01/17 11:20 Blood Culture (Wb) - Right Hand Blood Culture - Preliminary Staphylococcus aureus 11/30/17 16:20 Incision/Surgical Site Gram Stain - Final 11/30/17 16:20 Incision/Surgical Site Wound Culture - Final Meth. resistant Staph. aureus 11/30/17 16:20 Incision/Surgical Site Anaerobic Culture - Final No anaerobic bacteria isolated. 11/30/17 16:16 Incision/Surgical Site Gram Stain - Final 11/30/17 16:16 Incision/Surgical Site Wound Culture - Final Meth. resistant Staph. aureus 11/30/17 16:16 Incision/Surgical Site Anaerobic Culture - Final No anaerobic bacteria isolated. 11/29/17 19:40 Urine, Clean Catch Urine Culture - Final Culture exhibits no growth. 11/29/17 19:25 Blood Culture (Wb) - Venous Blood Culture - Final Staphylococcus aureus 11/29/17 20:30 Blood Culture (Wb) - Anticubital Left Bacteria Detection (PCR) - Final Staphylococcus aureus mecA Resistance Marker 11/29/17 20:30 Blood Culture (Wb) - Anticubital Left Blood Culture - Final Meth. resistant Staph. aureus Laboratory Results 12/04/17 05:25: Total Creatine Kinase 20 L 12/05/17 06:52: Sodium 132 L, Potassium 3.5, Chloride 95 L, Carbon Dioxide 33.0 H, Anion Gap 4 L, BUN 16, Creatinine 0.61, Estim Creat Clear Calc 40.81, Est GFR (MDRD) Af Amer 125, Est GFR (MDRD) Non-Af 103, BUN/Creatinine Ratio 26.3 H, Glucose 106, Calcium 7.7 L Current Medications Acetaminophen (Tylenol) 650 mg PO Q6H PRN PRN PRN Reason: Mild Pain (scale 0-3)/T>100.7 Last Admin: 12/05/17 00:27 Dose: 650 mg Albuterol Sulfate (Ventolin Aerosols) 2.5 mg INHALATION Q6HWA.RT [facility] Last Admin: 12/05/17 07:14 Dose: 2.5 mg Budesonide (Pulmicort Aerosol) 0.5 mg INHALATION Q12H.RT [facility] Last Admin: 12/05/17 07:14 Dose: 0.5 mg Enoxaparin Sodium (Lovenox) 40 mg SC DAILY [facility] Last Admin: 12/04/17 10:31 Dose: 40 mg Hydrochlorothiazide (Hydrochlorothiazide) 12.5 mg PO DAILY [facility] Last Admin: 12/04/17 10:31 Dose: 12.5 mg Sodium Chloride () 1,000 mls @ 75 mls/hr IV .[id number] [facility] Last Admin: 12/04/17 18:05 Dose: 75 mls/hr Daptomycin 650 mg/ Sodium (Chloride) 63 mls @ 100 mls/hr IV Q24 [facility] Last Admin: 12/04/17 10:31 Dose: 100 mls/hr Labetalol HCl (Trandate) 10 mg IV Q4H PRN PRN PRN Reason: SBP > 160 Lisinopril (Zestril) 10 mg PO DAILY [facility] Last Admin: 12/04/17 10:31 Dose: 10 mg Magnesium Hydroxide (Milk Of Magnesia) 30 ml PO DAILY PRN PRN PRN Reason: Constipation Nutritional Formula (Lactose Free) (Ensure Clear) 120 ml PO 4X/DAY [facility] Last Admin: 12/04/17 22:40 Dose: Not Given Ondansetron HCl (Zofran) 4 mg IV Q8H PRN PRN PRN Reason: Nausea Last Admin: 12/04/17 06:48 Dose: 4 mg Senna/Docusate Sodium (Senokot-S, Radha-Colace) 1 tablet PO BID [facility] Last Admin: 12/04/17 22:40 Dose: Not Given Sodium Chloride () 5 - 30 ml IV UD PRN PRN Reason: SALINE FLUSH Last Admin: 12/04/17 08:42 Dose: 10 ml Medical Necessity - Tobacco Use Smoking Status: Never smoker Assessment/Plan All Active Problems Cellulitis (Acute) Altered mental status, unspecified (Acute) Sepsis affecting skin (Acute) Acute encephalopathy (Acute) MRSA bacteremia (Acute) Hip pain, right (Acute) Acute back pain (Acute) Patient is a 72-year-old lady with history of chronic back pain who underwent pain pump insertion in her right buttock on account of sciatica on 11/13/[address] Brown. Patient was brought to the emergency department due to functional decline and increasing lethargy. An assessment of pain pump infection made antibiotics initiated per protocol and patient admitted to regular nursing floor for subsequent management 1. Acute infectious encephalopathy secondary to pain pump infection. Patient underwent subsequent evaluation with CT of the head with contrast as well as MRI of the brain there was no evidence of brain abscess; patient level of sensorium continues to improve 2. Pain pump infection with MRSA with subsequent bacteremia: She has been admitted to regular nursing floor vancomycin and Zosyn started on admission after cultures have been obtained. Consultation was placed to infectious disease as well as Dr. Brown with pain management (case discussed with him) Plan is for removal of the foreign body.Patient underwent hardware (pain pump as well as pain stimulator from the back) removal by Dr. Brown on 11/30/2017. Blood cultures obtained on admission positive for Staphylococcus aureus with meca resistance patient was seen in consultation by Dr. Pandey with infectious disease who recommended for patient undergo TTE as well as MRI.. TTE was reported to be technically difficult however there was no evidence of endocarditis subsequently underwent MOSES. MOSES was negative for endocarditis however still has persistent bacteremia antibiotics subsequently adjusted by infectious disease.. Patient was started on daptomycin by infectious disease on 12/02/2017. Zosyn and vancomycin discontinued on 12/02/2017: Patient still remains bacteremic despite being on daptomycin 3. Acute dyspnea with labored breathing with increasing respiratory rates and oxygen demand checks x-ray ordered to rule out pneumonia 4. Hypertension-blood pressure controlled, home medications continued with dose adjustment as needed 5. Sepsis ruled out criteria not met 6. Hypokalemia corrected per protocol 7. COPD currently not in exacerbation 8. DVT prophylaxis SC heparin 9. Acute respiratory insufficiency secondary to heart failure with preserved ejection fraction. 10. Acute diastolic congestive heart failure: Chest x-ray demonstrated pulmonary vascular congestion from fluid overload and order was given for patient to receive Lasix EF on MOSES obtained on 12/03/2017 demonstrated EF of 65% Active Medications Acetaminophen (Tylenol) 650 mg PO Q6H PRN PRN PRN Reason: Mild Pain (scale 0-3)/T>100.7 Last Admin: 12/05/17 00:27 Dose: 650 mg Albuterol Sulfate (Ventolin Aerosols) 2.5 mg INHALATION Q6HWA.RT [facility] Last Admin: 12/05/17 07:14 Dose: 2.5 mg Budesonide (Pulmicort Aerosol) 0.5 mg INHALATION Q12H.RT [facility] Last Admin: 12/05/17 07:14 Dose: 0.5 mg Enoxaparin Sodium (Lovenox) 40 mg SC DAILY [facility] Last Admin: 12/04/17 10:31 Dose: 40 mg Furosemide (Lasix) 40 mg IV BID@1000,1800 [facility] Stop: 12/06/17 18:01 Daptomycin 650 mg/ Sodium (Chloride) 63 mls @ 100 mls/hr IV Q24 [facility] Last Admin: 12/04/17 10:31 Dose: 100 mls/hr Labetalol HCl (Trandate) 10 mg IV Q4H PRN PRN PRN Reason: SBP > 160 Lisinopril (Zestril) 10 mg PO DAILY [facility] Last Admin: 12/04/17 10:31 Dose: 10 mg Magnesium Hydroxide (Milk Of Magnesia) 30 ml PO DAILY PRN PRN PRN Reason: Constipation Nutritional Formula (Lactose Free) (Ensure Clear) 120 ml PO 4X/DAY [facility] Last Admin: 12/04/17 22:40 Dose: Not Given Ondansetron HCl (Zofran) 4 mg IV Q8H PRN PRN PRN Reason: Nausea Last Admin: 12/04/17 06:48 Dose: 4 mg Senna/Docusate Sodium (Senokot-S, Radha-Colace) 1 tablet PO BID [facility] Last Admin: 12/04/17 22:40 Dose: Not Given Sodium Chloride () 5 - 30 ml IV UD PRN PRN Reason: SALINE FLUSH Last Admin: 12/04/17 08:42 Dose: 10 ml Microbiology 12/03/17 11:35 Blood Culture - Final Blood Culture (Wb) - Right Hand Staphylococcus aureus 12/02/17 09:44 Blood Culture - Final Blood Culture (Wb) - Right Hand Meth. resistant Staph. aureus Code Visit Inpatient E&M: 78123 Subs Hosp L2
[2017-12-05] MEDS: Furosemide 40 MG/4 ML Vial IV ×2 (11:15→17:26)
[2017-12-05] MEDS: Enoxaparin 40 MG/0.4 ML Syringe SC (11:15)
[2017-12-05] MEDS: Senna/Docusate Sodium 1 Tablet PO ×2 (11:15→20:30)
[2017-12-05] MEDS: Lisinopril 10 MG Tablet PO (11:15)
[2017-12-05 15:20] LABS: Bacteria 0 SEEN /hpf (None Seen); Mucous, Urine 0 SEEN /hpf (<or=2+); Squamous Epithelial Cells - UA 0 SEEN /hpf (5-10)
[2017-12-05 15:43] LABS: Color, Urine Yellow (Yellow); Glucose, Dipstick Normal (Normal); Ketone-Dipstick Negative (Negative); Leukocyte Esterase-Dipstick 100 /ul (Negative); Nitrite-Dipstick Negative (Negative); Occult Blood-Urine Negative /ul (Negative); Protein-Dipstick Negative (Negative); Specific Gravity, Urine 1.005 (1.002-1.030); Urine Bilirubin Dipstick Negative (Negative); Urine Clarity Sl. Cloudy (Clear); Urine Urobilinogen Normal (Normal); Urine pH 6.5 (5.0 - 8.0)
--- NOTE | 2017-12-05 15:44 | CPS ---
started by nursing
[2017-12-05 16:39] LABS: Yeast-Urine 2+ /hpf (None Seen)
[2017-12-05 16:40] LABS: White Blood Cells 5-10 SEEN /hpf (0-5)
[2017-12-05 16:41] LABS: Red Blood Cells-Urine 0-5 SEEN /hpf (0-5)
[2017-12-05] MEDS: Ibuprofen 400 MG Tablet PO (21:17)
[2017-12-06 03:10] VITALS: BP 139/59; PULSE 73; RESP 20; TEMP 36.4; O2SAT 95
[2017-12-06] MEDS: Ibuprofen 400 MG Tablet PO ×2 (03:15→16:05)
[2017-12-06 05:45] LABS: Hematocrit 25.8 % (37-47); Hemoglobin 8.3 g/dl (12.0-15.0); Mean Corp Hgb Conc 32.2 g/gl (32-36); Mean Corpuscular Hgb 27.7 pg (27.0-32.0); Mean Platelet Vol. 10.2 fl (6.2-12.0); Platelet Count 329 K/mm3 (150-450); RBC Distribution Width CV 14.6 % (11.6-14.6); RBC Distribution Width SD 44.3 fl (35.1-43.9); White Blood Count 12.3 K/mm3 (4.4-11.0)
[2017-12-06 06:07] LABS: Scan Indicated on CBC? Y/N NO
[2017-12-06 06:09] LABS: Anion Gap 6 (5-15); BUN 20 mg/dL (7-18); BUN/Creat Ratio 32.7 RATIO (10-20); Calcium,Total 7.4 mg/dL (8.5-10.1); Chloride 93 mmol/L (98-107); Creatinine, Serum 0.61 mg/dL (0.55-1.02); EST Glomerular Filtration Rate 103 mL/min (>60); Est Glom Filt Rate - Afr Amer 124 mL/min (>60); Estimated Creatinine Clearance 40.81 ml/min; Glucose 118 mg/dL (74-106); Potassium 3.1 mmol/L (3.5-5.1); Sodium Level 134 mmol/L (136-145)
[2017-12-06 07:16] VITALS: O2SAT 95
--- NOTE | 2017-12-06 07:49 | PCM.PN.HOSP ---
Patient Problems: Active and Suspected Problems Cellulitis (Acute) Altered mental status, unspecified (Acute) Sepsis affecting skin (Acute) Acute encephalopathy (Acute) MRSA bacteremia (Acute) Subjective: Patient seen clinical condition continues to improve. Diagnostic data significant for potassium of 4.1 repletion initiated. Examined patient incision appears clean dry and intact. She still remains bacteremic with blood cultures obtained on 12/05/2017 still growing gram-positive cocci Objective: GENERAL: Cooperative HEENT: Atraumatic; moist oral mucosa EYES; Anicteric, Normal Conjunctiva NECK; supple, normal thyroid, no distended JVD. RESPIRATORY: Diminished to auscultation bilaterally, CARDIOVASCULAR: Regular S1 S2, no audible murmurs GI: soft, non-tender, normoactive bowel sounds, : No Renal angle tenderness; Painting insitu EXTREMITIES: Trace Edema MUSCULOSKELETAL: No Joint Tenderness; no muscle waisting NEURO: Awake; no lateralizing signs. SKIN: No rash: Incision CDI PSYCH; flat affect Vitals/I&O's: Vital Signs Temp Pulse Resp BP Pulse Ox 97.6 F L 73 20 H 139/59 H 95 12/06/17 03:10 12/06/17 03:10 12/06/17 03:10 12/06/17 03:10 12/06/17 07:16 Oxygen Flow Rate (L/min) 3 Oxygen Delivery Method Nasal Cannula Weight: 79.8 kg Body Mass Index (BMI) 32.1 Intake and Output for Last 24 Hours 12/04/17 12/05/17 12/06/17 23:59 23:59 23:59 Intake Total 1801.8 / 1801.8 2225 / 2225 533 / 533 Output Total 3375 / 3375 4325 / 4325 450 / 450 Balance -1573.2 / -1573.2 -2100 / -2100 83 / 83 Microbiology Past 72 Hours 12/03/17 11:35 Blood Culture (Wb) - Right Hand Blood Culture - Final Staphylococcus aureus 12/02/17 09:44 Blood Culture (Wb) - Right Hand Blood Culture - Final Meth. resistant Staph. aureus 12/01/17 11:20 Blood Culture (Wb) - Right Hand Blood Culture - Preliminary Staphylococcus aureus 11/30/17 16:20 Incision/Surgical Site Gram Stain - Final 11/30/17 16:20 Incision/Surgical Site Wound Culture - Final Meth. resistant Staph. aureus 11/30/17 16:20 Incision/Surgical Site Anaerobic Culture - Final No anaerobic bacteria isolated. 11/30/17 16:16 Incision/Surgical Site Gram Stain - Final 11/30/17 16:16 Incision/Surgical Site Wound Culture - Final Meth. resistant Staph. aureus 11/30/17 16:16 Incision/Surgical Site Anaerobic Culture - Final No anaerobic bacteria isolated. Laboratory Results 12/05/17 13:04: Urine Color Yellow, Urine Clarity Sl. Cloudy, Urine pH 6.5, Ur Specific [place] 1.005, Urine Protein Negative, Urine Glucose (UA) Normal, Urine Ketones Negative, Urine Occult Blood Negative, Urine Nitrite Negative, Urine Bilirubin Negative, Urine Urobilinogen Normal, Ur Leukocyte Esterase 100 H, Urine RBC 0-5 SEEN, Urine WBC 5-10 SEEN, Ur Squamous Epith Cells 0 SEEN, Urine Bacteria 0 SEEN, Urine Mucus 0 SEEN, Urine Yeast 2+ 12/06/17 05:07: WBC 12.3 H, RBC 3.00 L, Hgb 8.3 L, Hct 25.8 L, MCV 86.0, MCH 27.7, MCHC 32.2, RDW 14.6, RDW Differential 44.3 H, Plt Count 329, MPV 10.2 12/06/17 05:07: Sodium 134 L, Potassium 3.1 L, Chloride 93 L, Carbon Dioxide 35.0 H, Anion Gap 6, BUN 20 H, Creatinine 0.61, Estim Creat Clear Calc 40.81, Est GFR (MDRD) Af Amer 124, Est GFR (MDRD) Non-Af 103, BUN/Creatinine Ratio 32.7 H, Glucose 118 H, Calcium 7.4 L, Magnesium 2.0 Current Medications Acetaminophen (Tylenol) 650 mg PO Q6H PRN PRN PRN Reason: Mild Pain (scale 0-3)/T>100.7 Last Admin: 12/05/17 17:22 Dose: 650 mg Albuterol Sulfate (Ventolin Aerosols) 2.5 mg INHALATION Q6HWA.RT [facility] Last Admin: 12/06/17 07:15 Dose: Not Given Budesonide (Pulmicort Aerosol) 0.5 mg INHALATION Q12H.RT [facility] Last Admin: 12/06/17 07:15 Dose: Not Given Enoxaparin Sodium (Lovenox) 40 mg SC DAILY [facility] Last Admin: 12/05/17 11:15 Dose: 40 mg Furosemide (Lasix) 40 mg IV BID@1000,1800 [facility] Stop: 12/06/17 18:01 Last Admin: 12/05/17 17:26 Dose: 40 mg Daptomycin 650 mg/ Sodium (Chloride) 63 mls @ 100 mls/hr IV Q24 [facility] Last Admin: 12/05/17 16:51 Dose: 100 mls/hr Potassium Chloride 10 meq/ N/A 100 mls @ 100 mls/hr IV Q1H [facility] Stop: 12/06/17 11:59 Ibuprofen (Motrin) 400 mg PO Q4H PRN PRN PRN Reason: MILD PAIN (-05/02) Last Admin: 12/06/17 03:15 Dose: 400 mg Labetalol HCl (Trandate) 10 mg IV Q4H PRN PRN PRN Reason: SBP > 160 Lisinopril (Zestril) 10 mg PO DAILY [facility] Last Admin: 12/05/17 11:15 Dose: 10 mg Magnesium Hydroxide (Milk Of Magnesia) 30 ml PO DAILY PRN PRN PRN Reason: Constipation Nutritional Formula (Lactose Free) (Ensure Clear) 120 ml PO 4X/DAY [facility] Last Admin: 12/05/17 20:30 Dose: 120 ml Ondansetron HCl (Zofran) 4 mg IV Q8H PRN PRN PRN Reason: Nausea Last Admin: 12/04/17 06:48 Dose: 4 mg Senna/Docusate Sodium (Senokot-S, Radha-Colace) 1 tablet PO BID [facility] Last Admin: 12/05/17 20:30 Dose: 1 tablet Sodium Chloride () 5 - 30 ml IV UD PRN PRN Reason: SALINE FLUSH Last Admin: 12/04/17 08:42 Dose: 10 ml Medical Necessity - Tobacco Use Smoking Status: Never smoker Assessment/Plan All Active Problems Cellulitis (Acute) Altered mental status, unspecified (Acute) Sepsis affecting skin (Acute) Acute encephalopathy (Acute) MRSA bacteremia (Acute) Hip pain, right (Acute) Acute back pain (Acute) Patient is a 72-year-old lady with history of chronic back pain who underwent pain pump insertion in her right buttock on account of sciatica on 11/13/[address] Brown. Patient was brought to the emergency department due to functional decline and increasing lethargy. An assessment of pain pump infection made antibiotics initiated per protocol and patient admitted to regular nursing floor for subsequent management 1. Acute infectious encephalopathy secondary to pain pump infection. Patient underwent subsequent evaluation with CT of the head with contrast as well as MRI of the brain there was no evidence of brain abscess; patient level of sensorium continues to improve 2. Pain pump infection with MRSA with subsequent bacteremia: She has been admitted to regular nursing floor vancomycin and Zosyn started on admission after cultures have been obtained. Consultation was placed to infectious disease as well as Dr. Brown with pain management (case discussed with him) Plan is for removal of the foreign body.Patient underwent hardware (pain pump as well as pain stimulator from the back) removal by Dr. Brown on 11/30/2017. Blood cultures obtained on admission positive for Staphylococcus aureus with meca resistance patient was seen in consultation by Dr. Pandey with infectious disease who recommended for patient undergo TTE as well as MRI.. TTE was reported to be technically difficult however there was no evidence of endocarditis subsequently underwent MOSES. MOSES was negative for endocarditis however still has persistent bacteremia antibiotics subsequently adjusted by infectious disease.. Patient was started on daptomycin by infectious disease on 12/02/2017. Zosyn and vancomycin discontinued on 12/02/2017: Patient still remains bacteremic despite being on daptomycin as of 12/05/2017. Plan is for patient to be discharged on long-term antibiotic to be recommended by ID was bacteremia clears. 3. Acute dyspnea with labored breathing with increasing respiratory rates and oxygen demand checks x-ray ordered to rule out pneumonia 4. Hypertension-blood pressure controlled, home medications continued with dose adjustment as needed 5. Sepsis ruled out criteria not met 6. Hypokalemia corrected per protocol 7. COPD currently not in exacerbation 8. DVT prophylaxis SC heparin 9. Acute respiratory insufficiency secondary to heart failure with preserved ejection fraction. 10. Acute diastolic congestive heart failure: Chest x-ray demonstrated pulmonary vascular congestion from fluid overload and order was given for patient to receive Lasix EF on MOSES obtained on 12/03/2017 demonstrated EF of 65% Active Medications Acetaminophen (Tylenol) 650 mg PO Q6H PRN PRN PRN Reason: Mild Pain (scale 0-3)/T>100.7 Last Admin: 12/05/17 17:22 Dose: 650 mg Albuterol Sulfate (Ventolin Aerosols) 2.5 mg INHALATION Q6HWA.RT [facility] Last Admin: 12/06/17 07:15 Dose: Not Given Budesonide (Pulmicort Aerosol) 0.5 mg INHALATION Q12H.RT [facility] Last Admin: 12/06/17 07:15 Dose: Not Given Enoxaparin Sodium (Lovenox) 40 mg SC DAILY [facility] Last Admin: 12/05/17 11:15 Dose: 40 mg Furosemide (Lasix) 40 mg IV BID@1000,1800 [facility] Stop: 12/06/17 18:01 Last Admin: 12/05/17 17:26 Dose: 40 mg Daptomycin 650 mg/ Sodium (Chloride) 63 mls @ 100 mls/hr IV Q24 [facility] Last Admin: 12/05/17 16:51 Dose: 100 mls/hr Potassium Chloride 10 meq/ N/A 100 mls @ 100 mls/hr IV Q1H [facility] Stop: 12/06/17 12:29 Ibuprofen (Motrin) 400 mg PO Q4H PRN PRN PRN Reason: MILD PAIN (1-10) Last Admin: 12/06/17 03:15 Dose: 400 mg Labetalol HCl (Trandate) 10 mg IV Q4H PRN PRN PRN Reason: SBP > 160 Lisinopril (Zestril) 10 mg PO DAILY [facility] Last Admin: 12/05/17 11:15 Dose: 10 mg Magnesium Hydroxide (Milk Of Magnesia) 30 ml PO DAILY PRN PRN PRN Reason: Constipation Nutritional Formula (Lactose Free) (Ensure Clear) 120 ml PO 4X/DAY [facility] Last Admin: 12/05/17 20:30 Dose: 120 ml Ondansetron HCl (Zofran) 4 mg IV Q8H PRN PRN PRN Reason: Nausea Last Admin: 12/04/17 06:48 Dose: 4 mg Senna/Docusate Sodium (Senokot-S, Radha-Colace) 1 tablet PO BID [facility] Last Admin: 12/05/17 20:30 Dose: 1 tablet Sodium Chloride () 5 - 30 ml IV UD PRN PRN Reason: SALINE FLUSH Last Admin: 12/04/17 08:42 Dose: 10 ml Code Visit Inpatient E&M: 17699 Subs Hosp L2
[2017-12-06 09:59] VITALS: BP 144/67; PULSE 73; RESP 18; TEMP 36.7; O2SAT 95
[2017-12-06] MEDS: Furosemide 40 MG/4 ML Vial IV ×2 (10:02→18:40)
[2017-12-06] MEDS: Enoxaparin 40 MG/0.4 ML Syringe SC (10:02)
[2017-12-06] MEDS: Lisinopril 10 MG Tablet PO (10:02)
[2017-12-06] MEDS: Senna/Docusate Sodium 1 Tablet PO ×2 (10:02→21:15)
[2017-12-06] MEDS: Albuterol 2.5 MG/3 ML VIAL.NEB. INHALATION (10:42)
[2017-12-06] MEDS: Budesonide Respules 0.5 MG/2 ML AMPUL.NEB. INHALATION (10:42)
[2017-12-06 11:03] VITALS: PULSE 78; RESP 16
[2017-12-06 16:00] VITALS: BP 127/57; PULSE 79; RESP 20; TEMP 36.9; O2SAT 95
[2017-12-06] MEDS: Acetaminophen 325 MG Tablet 650 MG PO (18:06)
[2017-12-06] MEDS: 0.9% NaCl Peripheral Flush Adult/Peds IV (18:40)
[2017-12-06 21:13] VITALS: BP 124/59; PULSE 80; RESP 18; TEMP 36.6; O2SAT 94
[2017-12-07] VITALS (8 sets, daily range): BP systolic 122–152; BP diastolic 59–73; PULSE 67–99; RESP 16–18; TEMP 36.5–37; O2SAT 92–96
[2017-12-07 06:24] LABS: Hematocrit 26.5 % (37-47); Hemoglobin 8.5 g/dl (12.0-15.0); Mean Corp Hgb Conc 32.1 g/gl (32-36); Mean Corpuscular Hgb 27.3 pg (27.0-32.0); Mean Corpuscular Volume 85.2 fL (81-99); Mean Platelet Vol. 9.7 fl (6.2-12.0); Platelet Count 440 K/mm3 (150-450); RBC Distribution Width CV 14.6 % (11.6-14.6); RBC Distribution Width SD 44.3 fl (35.1-43.9); Red Blood Count 3.11 M/mm3 (4.2-5.4); White Blood Count 13.7 K/mm3 (4.4-11.0)
[2017-12-07 06:28] LABS: Anion Gap 9 (5-15); BUN 26 mg/dL (7-18); BUN/Creat Ratio 41.9 RATIO (10-20); Calcium,Total 7.7 mg/dL (8.5-10.1); Chloride 94 mmol/L (98-107); Creatinine, Serum 0.62 mg/dL (0.55-1.02); EST Glomerular Filtration Rate 101 mL/min (>60); Est Glom Filt Rate - Afr Amer 122 mL/min (>60); Estimated Creatinine Clearance 40.81 ml/min; Glucose 116 mg/dL (74-106); Potassium 3.5 mmol/L (3.5-5.1); Sodium Level 134 mmol/L (136-145)
[2017-12-07 06:59] LABS: Scan Indicated on CBC? Y/N NO
[2017-12-07] MEDS: Albuterol 2.5 MG/3 ML VIAL.NEB. INHALATION ×3 (07:10→19:35)
[2017-12-07] MEDS: Budesonide Respules 0.5 MG/2 ML AMPUL.NEB. INHALATION ×2 (07:11→19:35)
[2017-12-07] MEDS: Enoxaparin 40 MG/0.4 ML Syringe SC (09:20)
[2017-12-07] MEDS: Senna/Docusate Sodium 1 Tablet PO ×2 (09:20→21:09)
[2017-12-07] MEDS: Lisinopril 10 MG Tablet PO (09:27)
[2017-12-07] MEDS: Ibuprofen 400 MG Tablet PO ×2 (10:03→16:18)
--- NOTE | 2017-12-07 10:52 | CASEMGMT ---
Addendum entered by Renetta Mei 12/07/17 11:37: DILLAN attempted to contact pt's daughter Jeimy to update on TCU and to ask about advanced directives but Jeimy didn't answer and DILLAN unable to leave message. Original Note: Social Work Note DILLAN spoke with Court in TCU who states she will have a bed on Thursday if pt is able to stay on floor until Thursday. DILLAN explained to Court that pt's blood cultures were positive this weekend and this worker will have to check with ID to determine when pt could be discharged. DILLAN spoke with ID. Per physician pt may be able to be discharged later this week. DILLAN placed a call back to Court in TCU and left her a message informing her that ID is projecting discharge for later this week and to submit for pre-cert tomorrow. Plan: TCU pending pre-cert and pt being medically cleared Renetta Mei BUTTER PRINTER, CAR SHAKEOUT OPERATOR
--- NOTE | 2017-12-07 12:08 | CASEMGMT ---
Social Work Note SW received message from Court in TCU stating that pt is currently on IV Daptomycin and if pt is discharged on IV Daptomycin TCU won't be able to accept as it is too expensive. Court states that 500mg dose is $445 and it would be more for pt as she is currently receiving 650mg dose. SW to update ID physician of this as ID is still awaiting blood cultures and to determine appropriate medication for pt. SW to continue to follow along to assist with discharge planning. Plan: TCU pending acceptance and pre-cert. TCU will need to wait to confirm acceptance based on what medications pt will be discharged on. Renetta Mei WOOD SCRAP HANDLER, LOCKSTITCH BACK MAKER
[2017-12-07] MEDS: Acetaminophen 325 MG Tablet 650 MG PO (12:15)
--- NOTE | 2017-12-07 12:42 | PCM.PN.HOSP ---
Patient Problems: Active and Suspected Problems Cellulitis (Acute) Altered mental status, unspecified (Acute) Sepsis affecting skin (Acute) Acute encephalopathy (Acute) MRSA bacteremia (Acute) Subjective: Complains of headache across maxillary sinuses. Vitals/I&O's: Vital Signs Temp Pulse Resp BP Pulse Ox 36.9 C 84 18 129/59 H 94 12/07/17 11:10 12/07/17 11:10 12/07/17 11:10 12/07/17 11:10 12/07/17 11:10 Oxygen Flow Rate (L/min) 2 Oxygen Delivery Method Nasal Cannula Weight: 79.8 kg Body Mass Index (BMI) 32.1 Intake and Output for Last 24 Hours 12/05/17 12/06/17 12/07/17 23:59 23:59 23:59 Intake Total 2225 / 2225 1829 / 1829 587 / 587 Output Total 4325 / 4325 2350 / 2350 1125 / 1125 Balance -2100 / -2100 -521 / -521 -538 / -538 General: Alert, No apparent distress HEENT: Atraumatic, Normocephalic, - - maxillary sinus tenderness bilaterally. Oral: Moist Mucosa, No Gingival or Mucosal Lesions/ Ulcerations Neck: No Nodes, Thyroid Normal Size and Texture Lungs: Clear to auscultation, Normal air movement, No rhonchi, No wheeze Cardiovascular: Regular rate, Regular Rhythm, Normal S1, Normal S2, No murmurs Abdomen: Bowel Sounds Present, Soft, Non Tender, Non-Distended, No Hepato-splenomegaly Extremities: No edema, No Calf Tenderness Skin: No rashes, No breakdown Psych/Mental Status: Appropriate, Flat Affect Microbiology Past 72 Hours 12/05/17 13:10 Blood Culture (Wb) - Left Hand Blood Culture - Preliminary Staphylococcus aureus 12/01/17 11:20 Blood Culture (Wb) - Right Hand Blood Culture - Final Staphylococcus aureus 12/04/17 13:28 Blood Culture (Wb) - Anticubital Left Blood Culture - Preliminary No growth in 48 hours. 12/03/17 11:35 Blood Culture (Wb) - Right Hand Blood Culture - Final Staphylococcus aureus 12/02/17 09:44 Blood Culture (Wb) - Right Hand Blood Culture - Final Meth. resistant Staph. aureus Laboratory Results 12/07/17 06:03: WBC 13.7 H, RBC 3.11 L, Hgb 8.5 L, Hct 26.5 L, MCV 85.2, MCH 27.3, MCHC 32.1, RDW 14.6, RDW Differential 44.3 H, Plt Count 440, MPV 9.7 12/07/17 06:03: Sodium 134 L, Potassium 3.5, Chloride 94 L, Carbon Dioxide 31.0, Anion Gap 9, BUN 26 H, Creatinine 0.62, Estim Creat Clear Calc 40.81, Est GFR (MDRD) Af Amer 122, Est GFR (MDRD) Non-Af 101, BUN/Creatinine Ratio 41.9 H, Glucose 116 H, Calcium 7.7 L Current Medications Acetaminophen (Tylenol) 650 mg PO Q6H PRN PRN PRN Reason: Mild Pain (scale 0-3)/T>100.7 Last Admin: 12/07/17 12:15 Dose: 650 mg Albuterol Sulfate (Ventolin Aerosols) 2.5 mg INHALATION Q6HWA.RT [facility] Last Admin: 12/07/17 12:16 Dose: 2.5 mg Budesonide (Pulmicort Aerosol) 0.5 mg INHALATION Q12H.RT [facility] Last Admin: 12/07/17 07:11 Dose: 0.5 mg Enoxaparin Sodium (Lovenox) 40 mg SC DAILY [facility] Last Admin: 12/07/17 09:20 Dose: 40 mg Daptomycin 650 mg/ Sodium (Chloride) 63 mls @ 100 mls/hr IV Q24 [facility] Last Admin: 12/07/17 10:03 Dose: 100 mls/hr Ibuprofen (Motrin) 400 mg PO Q4H PRN PRN PRN Reason: MILD PAIN (1-3/10) Last Admin: 12/07/17 10:03 Dose: 400 mg Labetalol HCl (Trandate) 10 mg IV Q4H PRN PRN PRN Reason: SBP > 160 Lisinopril (Zestril) 10 mg PO DAILY [facility] Last Admin: 12/07/17 09:27 Dose: 10 mg Magnesium Hydroxide (Milk Of Magnesia) 30 ml PO DAILY PRN PRN PRN Reason: Constipation Nutritional Formula (Lactose Free) (Ensure Clear) 120 ml PO 4X/DAY [facility] Last Admin: 12/07/17 10:04 Dose: 120 ml Ondansetron HCl (Zofran) 4 mg IV Q8H PRN PRN PRN Reason: Nausea Last Admin: 12/04/17 06:48 Dose: 4 mg Senna/Docusate Sodium (Senokot-S, Radha-Colace) 1 tablet PO BID [facility] Last Admin: 12/07/17 09:20 Dose: 1 tablet Sodium Chloride () 5 - 30 ml IV UD PRN PRN Reason: SALINE FLUSH Last Admin: 12/06/17 18:40 Dose: 10 ml Medical Necessity - Tobacco Use Smoking Status: Never smoker Assessment/Plan All Active Problems Cellulitis (Acute) Altered mental status, unspecified (Acute) Sepsis affecting skin (Acute) Acute encephalopathy (Acute) MRSA bacteremia (Acute) Hip pain, right (Acute) Acute back pain (Acute) 1. MRSA bacteremia on Daptomycin Culture + on Midline removed today (placed on the )--question if it became infected from the prior bacteremia which was due to an infected pain pump MOSES negative for endocarditis ID following. follow repeat Cx on and 2. Infected Pain pump extracted on the Cx + for MRSA 3. acute HFpEF EF 70% from echocardiogram on the Finished 4 doses of IV lasix. 4. Maxillary sinus tenderness may be sinusitis. Saline nasal spray Flonas 5. DVT proph: SQ heparin. Code Visit Inpatient E&M: 05951 Subs Hosp L2
--- NOTE | 2017-12-07 12:50 | PN_ITS ---
Patient Problems: Active and Suspected Problems Cellulitis (Acute) Altered mental status, unspecified (Acute) Sepsis affecting skin (Acute) Acute encephalopathy (Acute) MRSA bacteremia (Acute) Subjective: Complains of headache across maxillary sinuses. Vitals/I&O's: Vital Signs Temp Pulse Resp BP Pulse Ox 36.9 C 84 18 129/59 H 94 12/07/17 11:10 12/07/17 11:10 12/07/17 11:10 12/07/17 11:10 12/07/17 11:10 Oxygen Flow Rate (L/min) 2 Oxygen Delivery Method Nasal Cannula Weight: 79.8 kg Body Mass Index (BMI) 32.1 Intake and Output for Last 24 Hours 12/05/17 12/06/17 12/07/17 23:59 23:59 23:59 Intake Total 2225 / 2225 1829 / 1829 587 / 587 Output Total 4325 / 4325 2350 / 2350 1125 / 1125 Balance -2100 / -2100 -521 / -521 -538 / -538 General: Alert, No apparent distress HEENT: Atraumatic, Normocephalic, - - maxillary sinus tenderness bilaterally. Oral: Moist Mucosa, No Gingival or Mucosal Lesions/ Ulcerations Neck: No Nodes, Thyroid Normal Size and Texture Lungs: Clear to auscultation, Normal air movement, No rhonchi, No wheeze Cardiovascular: Regular rate, Regular Rhythm, Normal S1, Normal S2, No murmurs Abdomen: Bowel Sounds Present, Soft, Non Tender, Non-Distended, No Hepato- splenomegaly Extremities: No edema, No Calf Tenderness Skin: No rashes, No breakdown Psych/Mental Status: Appropriate, Flat Affect Microbiology Past 72 Hours 12/05/17 13:10 Blood Culture (Wb) - Left Hand Blood Culture - Preliminary Staphylococcus aureus 12/01/17 11:20 Blood Culture (Wb) - Right Hand Blood Culture - Final Staphylococcus aureus 12/04/17 13:28 Blood Culture (Wb) - Anticubital Left Blood Culture - Preliminary No growth in 48 hours. 12/03/17 11:35 Blood Culture (Wb) - Right Hand Blood Culture - Final Staphylococcus aureus 12/02/17 09:44 Blood Culture (Wb) - Right Hand Blood Culture - Final Meth. resistant Staph. aureus Laboratory Results 12/07/17 06:03: WBC 13.7 H, RBC 3.11 L, Hgb 8.5 L, Hct 26.5 L, MCV 85.2, MCH 27.3, MCHC 32.1, RDW 14.6, RDW Differential 44.3 H, Plt Count 440, MPV 9.7 12/07/17 06:03: Sodium 134 L, Potassium 3.5, Chloride 94 L, Carbon Dioxide 31.0, Anion Gap 9, BUN 26 H, Creatinine 0.62, Estim Creat Clear Calc 40.81, Est GFR (MDRD) Af Amer 122, Est GFR (MDRD) Non-Af 101, BUN/Creatinine Ratio 41.9 H, Glucose 116 H, Calcium 7.7 L Current Medications Acetaminophen (Tylenol) 650 mg PO Q6H PRN PRN PRN Reason: Mild Pain (scale 0-3)/T>100.7 Last Admin: 12/07/17 12:15 Dose: 650 mg Albuterol Sulfate (Ventolin Aerosols) 2.5 mg INHALATION Q6HWA.RT [facility] Last Admin: 12/07/17 12:16 Dose: 2.5 mg Budesonide (Pulmicort Aerosol) 0.5 mg INHALATION Q12H.RT [facility] Last Admin: 12/07/17 07:11 Dose: 0.5 mg Enoxaparin Sodium (Lovenox) 40 mg SC DAILY [facility] Last Admin: 12/07/17 09:20 Dose: 40 mg Daptomycin 650 mg/ Sodium (Chloride) 63 mls @ 100 mls/hr IV Q24 [facility] Last Admin: 12/07/17 10:03 Dose: 100 mls/hr Ibuprofen (Motrin) 400 mg PO Q4H PRN PRN PRN Reason: MILD PAIN (1-3/10) Last Admin: 12/07/17 10:03 Dose: 400 mg Labetalol HCl (Trandate) 10 mg IV Q4H PRN PRN PRN Reason: SBP > 160 Lisinopril (Zestril) 10 mg PO DAILY [facility] Last Admin: 12/07/17 09:27 Dose: 10 mg Magnesium Hydroxide (Milk Of Magnesia) 30 ml PO DAILY PRN PRN PRN Reason: Constipation Nutritional Formula (Lactose Free) (Ensure Clear) 120 ml PO 4X/DAY [facility] Last Admin: 12/07/17 10:04 Dose: 120 ml Ondansetron HCl (Zofran) 4 mg IV Q8H PRN PRN PRN Reason: Nausea Last Admin: 12/04/17 06:48 Dose: 4 mg Senna/Docusate Sodium (Senokot-S, Radha-Colace) 1 tablet PO BID [facility] Last Admin: 12/07/17 09:20 Dose: 1 tablet Sodium Chloride () 5 - 30 ml IV UD PRN PRN Reason: SALINE FLUSH Last Admin: 12/06/17 18:40 Dose: 10 ml Medical Necessity - Tobacco Use Smoking Status: Never smoker Assessment/Plan All Active Problems Cellulitis (Acute) Altered mental status, unspecified (Acute) Sepsis affecting skin (Acute) Acute encephalopathy (Acute) MRSA bacteremia (Acute) Hip pain, right (Acute) Acute back pain (Acute) 1. MRSA bacteremia * on Daptomycin * Culture + on * Midline removed today (placed on the )--question if it became infected from the prior bacteremia which was due to an infected pain pump * MOSES negative for endocarditis * ID following. * follow repeat Cx on and 2. Infected Pain pump * extracted on the * Cx + for MRSA 3. acute HFpEF * EF 70% from echocardiogram on the * Finished 4 doses of IV lasix. 4. Maxillary sinus tenderness * may be sinusitis. * Saline nasal spray * Flonas 5. DVT proph: SQ heparin. Code Visit Inpatient E&M: 30308 Subs Hosp L2
--- NOTE | 2017-12-07 13:42 | CASEMGMT ---
Social Work Note DILLAN spoke with pt's daughter Jeimy and updated her that pt is not ready for discharge yet as medically ID and hospitalist are continuing to work on pt's care. SW updated Jeimy that TCU will have a bed on Thursday for pt and acceptance into TCU will depend on the medication that pt is discharged on. DILLAN asked Jeimy if she knew where pt's advanced directives are and Jeimy states she doesn't know but will ask pt when she comes in today and if she finds them she will bring them in to [facility]. SW to continue to follow along to assist with discharge planning. Plan: TCU pending acceptance and pre-cert. Acceptance into TCU depends on medications that pt will be discharged on. Renetta Mei MANUFACTURING ENGINEERING INTERN, CURTAIN WORKER
--- NOTE | 2017-12-07 14:31 | US_ITS ---
STUDY: SUPERFICIAL ULTRASOUND - RIGHT HIP AND MID SPINE REGION REASON FOR EXAM: Female, 72 years old. Evaluate for abscess. Postsurgical sites TECHNIQUE: A superficial ultrasound was performed with real-time and static jerry-scale imaging. COMPARISON: None. FINDINGS: Targeted imaging in the specific areas overlying the right hip and mid spine region demonstrate areas of scarring. In the right hip region, there is no evidence of underlying fluid collection to represent abscess. In the spinal region, there appears to be a bilobed predominantly anechoic structure. No internal vascularity. First area measures 1.1 x 1 x 0.9 cm while the second area measures 2.3 x 1.3 x 1.4 cm. US/Ext Non Vasc Limited/Soft Tiss IMPRESSION: 1. No abnormality in the region of the right hip surgical site 2. The spinal surgical site, there is a predominantly anechoic bilobed structure without internal vascularity which is likely postoperative seroma. Abscess cannot be excluded. Electronically Signed: Javier Cordero DO at 19:01 EDT Tel , Service support ,
--- NOTE | 2017-12-07 14:36 | PCM.PN.ID ---
Patient Problems: Active and Suspected Problems Cellulitis (Acute) Altered mental status, unspecified (Acute) Sepsis affecting skin (Acute) Acute encephalopathy (Acute) MRSA bacteremia (Acute) Subjective: Not feeling well, still pain in back and legs. RUE is sore since midline placement. No fever. - Physical Exam General: Cooperative Lungs: Clear to auscultation, Normal air movement Cardiovascular: Regular rate, Regular Rhythm Abdomen: Soft, Non Tender, Non-Distended Skin: No rashes, Incision - incisions on back with justina in place, no redness/drainage/induration Vital Signs Temp Pulse Resp BP Pulse Ox 98.4 F 74 16 129/59 H 94 12/07/17 11:10 12/07/17 12:16 12/07/17 12:16 12/07/17 11:10 12/07/17 11:10 Oxygen Flow Rate (L/min) 2 Oxygen Delivery Method Nasal Cannula Weight: 79.8 kg Body Mass Index (BMI) 32.1 Intake and Output for Last 24 Hours 12/05/17 12/06/17 12/07/17 23:59 23:59 23:59 Intake Total 2225 / 2225 1829 / 1829 587 / 587 Output Total 4325 / 4325 2350 / 2350 1125 / 1125 Balance -2100 / -2100 -521 / -521 -538 / -538 Microbiology Past 72 Hours 12/05/17 13:10 Blood Culture - Preliminary Blood Culture (Wb) - Left Hand Staphylococcus aureus 12/01/17 11:20 Blood Culture - Final Blood Culture (Wb) - Right Hand Staphylococcus aureus 12/04/17 13:28 Blood Culture - Preliminary Blood Culture (Wb) - Anticubital Left No growth in 48 hours. 12/03/17 11:35 Blood Culture - Final Blood Culture (Wb) - Right Hand Staphylococcus aureus 12/02/17 09:44 Blood Culture - Final Blood Culture (Wb) - Right Hand Meth. resistant Staph. aureus Laboratory Tests Past 24 Hrs 12/07/17 12/07/17 06:03 06:03 WBC 13.7 H RBC 3.11 L Hgb 8.5 L Hct 26.5 L MCV 85.2 MCH 27.3 MCHC 32.1 RDW 14.6 RDW Differential 44.3 H Plt Count 440 MPV 9.7 Sodium 134 L Potassium 3.5 Chloride 94 L Carbon Dioxide 31.0 Anion Gap 9 BUN 26 H Creatinine 0.62 Estim Creat Clear Calc 40.81 Est GFR (MDRD) Af Amer 122 Est GFR (MDRD) Non-Af 101 BUN/Creatinine Ratio 41.9 H Glucose 116 H Calcium 7.7 L Medical Necessity - Tobacco Use Smoking Status: Never smoker Route of nutrition/ use of supplements: [] Nutritional Intake: [] IV Site: [] Painting Catheter: [] - Assessment/Plan Antibiotics: [] Assessment/Plan: [] Active and Suspected Problems Cellulitis (Acute) Altered mental status, unspecified (Acute) Sepsis affecting skin (Acute) Acute encephalopathy (Acute) MRSA bacteremia - recent spine stimulator placement as source. Removal done 11/30 with heavy purulence at both surgical sites. CT showed no clear abscess, but there are sizeable areas of induration. MOSES neg for veg. Bcx from 12/05 still (+) for staph. 12/03 changed to dapto for better bactericidal effect. CK is normal. Will repeat CK and LFTs with AM labs. Have requested send out testing for dapto and ceftaroline. Incisions doing well. Continues to be bacteremic on dapto. Will order U/s of sites to look for abscess. Requested midline removal if possible. Will follow, d/w nursing.
[2017-12-07] MEDS: Fluticasone 0.05% 1 SPRAY NASAL.SRY 2 SPRAY NASAL ×2 (15:05)
[2017-12-08] VITALS (10 sets, daily range): BP systolic 105–146; BP diastolic 39–70; PULSE 72–88; RESP 14–22; TEMP 36.5–37; O2SAT 93–97
[2017-12-08] MEDS: Acetaminophen 325 MG Tablet 650 MG PO (02:05)
[2017-12-08] MEDS: Ibuprofen 400 MG Tablet PO ×4 (06:03→21:04)
[2017-12-08 06:34] LABS: AST(SGOT) 34 U/L (15-37); Alanine Aminotransfer ALT/SGPT 54 U/L (13-56); Albumin, Serum 1.7 g/dL (3.2-5.0); Alkaline Phosphatase 86 U/L (45-117); Anion Gap 8 (5-15); BUN 25 mg/dL (7-18); BUN/Creat Ratio 47.4 RATIO (10-20); Bilirubin, Direct 0.11 mg/dL (0.00-0.30); CPK Total, Creatine Kinase 31 U/L (26-192); Calcium,Total 7.8 mg/dL (8.5-10.1); Chloride 99 mmol/L (98-107); Creatinine, Serum 0.53 mg/dL (0.55-1.02); EST Glomerular Filtration Rate 122 mL/min (>60); Est Glom Filt Rate - Afr Amer 147 mL/min (>60); Estimated Creatinine Clearance 40.81 ml/min; Globulin 4.1 g/dL (2.2-4.2); Glucose 115 mg/dL (74-106); Potassium 3.4 mmol/L (3.5-5.1); Protein, Total 5.8 g/dL (6.4-8.2); Sodium Level 137 mmol/L (136-145)
[2017-12-08] MEDS: Budesonide Respules 0.5 MG/2 ML AMPUL.NEB. INHALATION ×2 (06:55→18:57)
[2017-12-08] MEDS: Albuterol 2.5 MG/3 ML VIAL.NEB. INHALATION ×3 (06:55→18:57)
[2017-12-08] MEDS: Enoxaparin 40 MG/0.4 ML Syringe SC (08:20)
[2017-12-08] MEDS: Senna/Docusate Sodium 1 Tablet PO ×2 (08:20→21:04)
[2017-12-08] MEDS: Lisinopril 10 MG Tablet PO (08:20)
[2017-12-08] MEDS: Fluticasone 0.05% 1 SPRAY NASAL.SRY 2 SPRAY NASAL (08:25)
--- NOTE | 2017-12-08 10:26 | PCM.PN.HOSP ---
Patient Problems: Active and Suspected Problems Cellulitis (Acute) Altered mental status, unspecified (Acute) Sepsis affecting skin (Acute) Acute encephalopathy (Acute) MRSA bacteremia (Acute) Subjective: Feels better sitting up. Vitals/I&O's: Vital Signs Temp Pulse Resp BP Pulse Ox 36.6 C 72 16 124/51 H 95 12/08/17 08:20 12/08/17 08:20 12/08/17 08:20 12/08/17 08:20 12/08/17 08:21 Oxygen Flow Rate (L/min) 2 Oxygen Delivery Method Nasal Cannula Weight: 79.8 kg Body Mass Index (BMI) 32.1 Intake and Output for Last 24 Hours 12/06/17 12/07/17 12/08/17 23:59 23:59 23:59 Intake Total 1829 / 1829 2011 220 / 220 Output Total 2350 / 2350 1625 / 1625 775 / 775 Balance -521 / -521 387 / 387 -555 / -555 General: Alert, No apparent distress, - - up in chair HEENT: Atraumatic, Normocephalic Oral: Moist Mucosa, No Gingival or Mucosal Lesions/ Ulcerations Neck: No Nodes, Thyroid Normal Size and Texture Lungs: Clear to auscultation, Normal air movement, No rhonchi, No wheeze Cardiovascular: Regular rate, Regular Rhythm, Normal S1, Normal S2, No murmurs Abdomen: Bowel Sounds Present, Soft, Non Tender, Non-Distended, No Hepato-splenomegaly Skin: - - midline lower thoracic incision stapled, well-approximated, no purulence could be expressed, no induration. Musculoskeletal: No Tenderness to Palpation of Joints or Extremities, No Muscle Wasting Psych/Mental Status: Normal Affect, Appropriate Microbiology Past 72 Hours 12/05/17 13:10 Blood Culture (Wb) - Left Hand Blood Culture - Preliminary Meth. resistant Staph. aureus 12/06/17 08:44 Blood Culture (Wb) - Left Hand Blood Culture - Preliminary Meth. resistant Staph. aureus 12/01/17 11:20 Blood Culture (Wb) - Right Hand Blood Culture - Final Staphylococcus aureus 12/04/17 13:28 Blood Culture (Wb) - Anticubital Left Blood Culture - Preliminary No growth in 48 hours. 12/03/17 11:35 Blood Culture (Wb) - Right Hand Blood Culture - Final Staphylococcus aureus 12/02/17 09:44 Blood Culture (Wb) - Right Hand Blood Culture - Final Meth. resistant Staph. aureus Laboratory Results 12/08/17 05:43: Sodium 137, Potassium 3.4 L, Chloride 99, Carbon Dioxide 30.0, Anion Gap 8, BUN 25 H, Creatinine 0.53 L, Estim Creat Clear Calc 40.81, Est GFR (MDRD) Af Amer 147, Est GFR (MDRD) Non-Af 122, BUN/Creatinine Ratio 47.4 H, Glucose 115 H, Calcium 7.8 L, Total Bilirubin 0.30, Direct Bilirubin 0.11, AST 34, ALT 54, Alkaline Phosphatase 86, Total Creatine Kinase 31, Total Protein 5.8 L, Albumin 1.7 L, Globulin 4.1 Current Medications Acetaminophen (Tylenol) 650 mg PO Q6H PRN PRN PRN Reason: Mild Pain (scale 0-3)/T>100.7 Last Admin: 12/08/17 02:05 Dose: 650 mg Albuterol Sulfate (Ventolin Aerosols) 2.5 mg INHALATION Q6HWA.RT [facility] Last Admin: 12/08/17 06:55 Dose: 2.5 mg Budesonide (Pulmicort Aerosol) 0.5 mg INHALATION Q12H.RT [facility] Last Admin: 12/08/17 06:55 Dose: 0.5 mg Enoxaparin Sodium (Lovenox) 40 mg SC DAILY [facility] Last Admin: 12/08/17 08:20 Dose: 40 mg Fluticasone Propionate (Flonase Nasal Foley) 2 spray NASAL DAILY [facility] Last Admin: 12/08/17 08:25 Dose: 2 spray Daptomycin 650 mg/ Sodium (Chloride) 63 mls @ 100 mls/hr IV Q24 [facility] Last Admin: 12/07/17 10:03 Dose: 100 mls/hr Ibuprofen (Motrin) 400 mg PO Q4H PRN PRN PRN Reason: MILD PAIN (1-3/10) Last Admin: 12/08/17 06:03 Dose: 400 mg Labetalol HCl (Trandate) 10 mg IV Q4H PRN PRN PRN Reason: SBP > 160 Lisinopril (Zestril) 10 mg PO DAILY [facility] Last Admin: 12/08/17 08:20 Dose: 10 mg Magnesium Hydroxide (Milk Of Magnesia) 30 ml PO DAILY PRN PRN PRN Reason: Constipation Nutritional Formula (Lactose Free) (Ensure Clear) 120 ml PO 4X/DAY [facility] Last Admin: 12/08/17 08:20 Dose: 120 ml Ondansetron HCl (Zofran) 4 mg IV Q8H PRN PRN PRN Reason: Nausea Last Admin: 12/04/17 06:48 Dose: 4 mg Senna/Docusate Sodium (Senokot-S, Radha-Colace) 1 tablet PO BID [facility] Last Admin: 12/08/17 08:20 Dose: 1 tablet Sodium Chloride () 5 - 30 ml IV UD PRN PRN Reason: SALINE FLUSH Last Admin: 12/06/17 18:40 Dose: 10 ml Sodium Chloride ([place] Nasal Foley) 2 spray NASAL TID PRN PRN PRN Reason: NASAL DRYNESS Medical Necessity - Tobacco Use Smoking Status: Never smoker Assessment/Plan All Active Problems Cellulitis (Acute) Altered mental status, unspecified (Acute) Sepsis affecting skin (Acute) Acute encephalopathy (Acute) MRSA bacteremia (Acute) Hip pain, right (Acute) Acute back pain (Acute) 1. MRSA bacteremia on Daptomycin Culture + on and Midline removed 12/06 (placed on the )--question if it became infected from the prior bacteremia which was due to an infected pain pump MOSES negative for endocarditis ID following. follow repeat Cx on and 2. Infected Pain pump extracted on the Cx + for MRSA incision looks intact at this time. US showed a possible seroma. If still bacteremia, may need to consider consult to general surgery for I+D to r/o abscess. 3. acute HFpEF EF 70% from echocardiogram on the Finished 4 doses of IV lasix. stable at this time 4. Maxillary sinus tenderness may be sinusitis. Saline nasal spray Flonase 5. DVT proph: SQ heparin. Code Visit Inpatient E&M: 45447 Subs Hosp L2
--- NOTE | 2017-12-08 10:29 | PN_ITS ---
Patient Problems: Active and Suspected Problems Cellulitis (Acute) Altered mental status, unspecified (Acute) Sepsis affecting skin (Acute) Acute encephalopathy (Acute) MRSA bacteremia (Acute) Subjective: Feels better sitting up. Vitals/I&O's: Vital Signs Temp Pulse Resp BP Pulse Ox 36.6 C 72 16 124/51 H 95 12/08/17 08:20 12/08/17 08:20 12/08/17 08:20 12/08/17 08:20 12/08/17 08:21 Oxygen Flow Rate (L/min) 2 Oxygen Delivery Method Nasal Cannula Weight: 79.8 kg Body Mass Index (BMI) 32.1 Intake and Output for Last 24 Hours 12/06/17 12/07/17 12/08/17 23:59 23:59 23:59 Intake Total 1829 / 1829 2011 220 / 220 Output Total 2350 / 2350 1625 / 1625 775 / 775 Balance -521 / -521 387 / 387 -555 / -555 General: Alert, No apparent distress, - - up in chair HEENT: Atraumatic, Normocephalic Oral: Moist Mucosa, No Gingival or Mucosal Lesions/ Ulcerations Neck: No Nodes, Thyroid Normal Size and Texture Lungs: Clear to auscultation, Normal air movement, No rhonchi, No wheeze Cardiovascular: Regular rate, Regular Rhythm, Normal S1, Normal S2, No murmurs Abdomen: Bowel Sounds Present, Soft, Non Tender, Non-Distended, No Hepato- splenomegaly Skin: - - midline lower thoracic incision stapled, well-approximated, no purulence could be expressed, no induration. Musculoskeletal: No Tenderness to Palpation of Joints or Extremities, No Muscle Wasting Psych/Mental Status: Normal Affect, Appropriate Microbiology Past 72 Hours 12/05/17 13:10 Blood Culture (Wb) - Left Hand Blood Culture - Preliminary Meth. resistant Staph. aureus 12/06/17 08:44 Blood Culture (Wb) - Left Hand Blood Culture - Preliminary Meth. resistant Staph. aureus 12/01/17 11:20 Blood Culture (Wb) - Right Hand Blood Culture - Final Staphylococcus aureus 12/04/17 13:28 Blood Culture (Wb) - Anticubital Left Blood Culture - Preliminary No growth in 48 hours. 12/03/17 11:35 Blood Culture (Wb) - Right Hand Blood Culture - Final Staphylococcus aureus 12/02/17 09:44 Blood Culture (Wb) - Right Hand Blood Culture - Final Meth. resistant Staph. aureus Laboratory Results 12/08/17 05:43: Sodium 137, Potassium 3.4 L, Chloride 99, Carbon Dioxide 30.0, Anion Gap 8, BUN 25 H, Creatinine 0.53 L, Estim Creat Clear Calc 40.81, Est GFR (MDRD) Af Amer 147, Est GFR (MDRD) Non-Af 122, BUN/Creatinine Ratio 47.4 H, Glucose 115 H, Calcium 7.8 L, Total Bilirubin 0.30, Direct Bilirubin 0.11, AST 34, ALT 54, Alkaline Phosphatase 86, Total Creatine Kinase 31, Total Protein 5.8 L, Albumin 1.7 L, Globulin 4.1 Current Medications Acetaminophen (Tylenol) 650 mg PO Q6H PRN PRN PRN Reason: Mild Pain (scale 0-3)/T>100.7 Last Admin: 12/08/17 02:05 Dose: 650 mg Albuterol Sulfate (Ventolin Aerosols) 2.5 mg INHALATION Q6HWA.RT [facility] Last Admin: 12/08/17 06:55 Dose: 2.5 mg Budesonide (Pulmicort Aerosol) 0.5 mg INHALATION Q12H.RT [facility] Last Admin: 12/08/17 06:55 Dose: 0.5 mg Enoxaparin Sodium (Lovenox) 40 mg SC DAILY [facility] Last Admin: 12/08/17 08:20 Dose: 40 mg Fluticasone Propionate (Flonase Nasal [place]) 2 spray NASAL DAILY [facility] Last Admin: 12/08/17 08:25 Dose: 2 spray Daptomycin 650 mg/ Sodium (Chloride) 63 mls @ 100 mls/hr IV Q24 [facility] Last Admin: 12/07/17 10:03 Dose: 100 mls/hr Ibuprofen (Motrin) 400 mg PO Q4H PRN PRN PRN Reason: MILD PAIN (1-3/10) Last Admin: 12/08/17 06:03 Dose: 400 mg Labetalol HCl (Trandate) 10 mg IV Q4H PRN PRN PRN Reason: SBP > 160 Lisinopril (Zestril) 10 mg PO DAILY [facility] Last Admin: 12/08/17 08:20 Dose: 10 mg Magnesium Hydroxide (Milk Of Magnesia) 30 ml PO DAILY PRN PRN PRN Reason: Constipation Nutritional Formula (Lactose Free) (Ensure Clear) 120 ml PO 4X/DAY [facility] Last Admin: 12/08/17 08:20 Dose: 120 ml Ondansetron HCl (Zofran) 4 mg IV Q8H PRN PRN PRN Reason: Nausea Last Admin: 12/04/17 06:48 Dose: 4 mg Senna/Docusate Sodium (Senokot-S, Radha-Colace) 1 tablet PO BID [facility] Last Admin: 12/08/17 08:20 Dose: 1 tablet Sodium Chloride () 5 - 30 ml IV UD PRN PRN Reason: SALINE FLUSH Last Admin: 12/06/17 18:40 Dose: 10 ml Sodium Chloride ([place] Nasal [place]) 2 spray NASAL TID PRN PRN PRN Reason: NASAL DRYNESS Medical Necessity - Tobacco Use Smoking Status: Never smoker Assessment/Plan All Active Problems Cellulitis (Acute) Altered mental status, unspecified (Acute) Sepsis affecting skin (Acute) Acute encephalopathy (Acute) MRSA bacteremia (Acute) Hip pain, right (Acute) Acute back pain (Acute) 1. MRSA bacteremia * on Daptomycin * Culture + on and * Midline removed 12/06 (placed on the )--question if it became infected from the prior bacteremia which was due to an infected pain pump * MOSES negative for endocarditis * ID following. * follow repeat Cx on and 2. Infected Pain pump * extracted on the * Cx + for MRSA * incision looks intact at this time. * US showed a possible seroma. * If still bacteremia, may need to consider consult to general surgery for I+D to r/o abscess. 3. acute HFpEF * EF 70% from echocardiogram on the * Finished 4 doses of IV lasix. * stable at this time 4. Maxillary sinus tenderness * may be sinusitis. * Saline nasal spray * Flonase 5. DVT proph: SQ heparin. Code Visit Inpatient E&M: 96861 Subs Hosp L2
--- NOTE | 2017-12-08 10:56 | PCM.PN.ID ---
Patient Problems: Active and Suspected Problems Cellulitis (Acute) Altered mental status, unspecified (Acute) Sepsis affecting skin (Acute) Acute encephalopathy (Acute) MRSA bacteremia (Acute) Subjective: Feeling a little better today. Midline removed. Arm less sore. No fever. - Physical Exam General: Alert, Cooperative, No apparent distress Lungs: Clear to auscultation, Normal air movement Cardiovascular: Regular rate, Regular Rhythm Abdomen: Soft, Non Tender, Non-Distended Skin: No rashes Vital Signs Temp Pulse Resp BP Pulse Ox 97.8 F 72 16 124/51 H 95 12/08/17 08:20 12/08/17 08:20 12/08/17 08:20 12/08/17 08:20 12/08/17 08:21 Oxygen Flow Rate (L/min) 2 Oxygen Delivery Method Nasal Cannula Weight: 79.8 kg Body Mass Index (BMI) 32.1 Intake and Output for Last 24 Hours 12/06/17 12/07/17 12/08/17 23:59 23:59 23:59 Intake Total 1829 / 1829 2011 220 / 220 Output Total 2350 / 2350 1625 / 1625 775 / 775 Balance -521 / -521 387 / 387 -555 / -555 Microbiology Past 72 Hours 12/05/17 13:10 Blood Culture - Preliminary Blood Culture (Wb) - Left Hand Meth. resistant Staph. aureus 12/06/17 08:44 Blood Culture - Preliminary Blood Culture (Wb) - Left Hand Meth. resistant Staph. aureus 12/01/17 11:20 Blood Culture - Final Blood Culture (Wb) - Right Hand Staphylococcus aureus 12/04/17 13:28 Blood Culture - Preliminary Blood Culture (Wb) - Anticubital Left No growth in 48 hours. 12/03/17 11:35 Blood Culture - Final Blood Culture (Wb) - Right Hand Staphylococcus aureus 12/02/17 09:44 Blood Culture - Final Blood Culture (Wb) - Right Hand Meth. resistant Staph. aureus Laboratory Tests Past 24 Hrs 12/08/17 05:43 Sodium 137 Potassium 3.4 L Chloride 99 Carbon Dioxide 30.0 Anion Gap 8 BUN 25 H Creatinine 0.53 L Estim Creat Clear Calc 40.81 Est GFR (MDRD) Af Amer 147 Est GFR (MDRD) Non-Af 122 BUN/Creatinine Ratio 47.4 H Glucose 115 H Calcium 7.8 L Total Bilirubin 0.30 Direct Bilirubin 0.11 AST 34 ALT 54 Alkaline Phosphatase 86 Total Creatine Kinase 31 Total Protein 5.8 L Albumin 1.7 L Globulin 4.1 Medical Necessity - Tobacco Use Smoking Status: Never smoker Route of nutrition/ use of supplements: [] Nutritional Intake: [] IV Site: [] Painting Catheter: [] - Assessment/Plan Antibiotics: [] Assessment/Plan: [] Active and Suspected Problems Cellulitis (Acute) Altered mental status, unspecified (Acute) Sepsis affecting skin (Acute) Acute encephalopathy (Acute) MRSA bacteremia - recent spine stimulator placement as source. Removal done 11/30 with heavy purulence at both surgical sites. CT showed no clear abscess, but there are sizeable areas of induration. MOSES neg for veg. Bcx from 12/06 still (+) for staph. 12/03 changed to dapto for better bactericidal effect. CK is normal. Have requested send out testing for dapto and ceftaroline. Incisions doing well. Continues to be bacteremic on dapto. Midline removed 12/07. U/s showed very small fluid collection at midline incision. Will follow, d/w Dr. Yoon.
--- NOTE | 2017-12-08 16:11 | CASEMGMT ---
Social Work Note Per physician, pt's blood cultures are still positive. SW placed a call to TCU and left Court a message to not submit for pre-cert yet. Plan: TCU once medically cleared and once pre-cert is obtained Renetta BURNS, BASKET FILLER
[2017-12-09] VITALS (10 sets, daily range): BP systolic 124–146; BP diastolic 52–71; PULSE 68–92; RESP 16–18; TEMP 36.7–37.4; O2SAT 92–95
[2017-12-09] MEDS: Rizatriptan Benzoate 10 MG Tablet PO (05:12)
[2017-12-09] MEDS: Albuterol 2.5 MG/3 ML VIAL.NEB. INHALATION ×3 (06:53→19:04)
[2017-12-09] MEDS: Budesonide Respules 0.5 MG/2 ML AMPUL.NEB. INHALATION ×2 (06:53→19:04)
[2017-12-09] MEDS: Acetaminophen 325 MG Tablet 650 MG PO ×2 (09:36→23:58)
[2017-12-09] MEDS: Ondansetron 4 MG/2 ML Vial IV (09:37)
[2017-12-09] MEDS: Senna/Docusate Sodium 1 Tablet PO ×2 (09:38→22:10)
[2017-12-09] MEDS: Enoxaparin 40 MG/0.4 ML Syringe SC (09:38)
[2017-12-09] MEDS: Lisinopril 10 MG Tablet PO (09:38)
[2017-12-09] MEDS: Ibuprofen 400 MG Tablet PO ×2 (09:39→22:10)
--- NOTE | 2017-12-09 10:52 | PCM.PN.HOSP ---
Patient Problems: Active and Suspected Problems Cellulitis (Acute) Altered mental status, unspecified (Acute) Sepsis affecting skin (Acute) Acute encephalopathy (Acute) MRSA bacteremia (Acute) Subjective: complains of headache. relieved yesterday when she sat up in chair. Vitals/I&O's: Vital Signs Temp Pulse Resp BP Pulse Ox 37.3 C 80 18 146/67 H 95 12/09/17 08:58 12/09/17 08:58 12/09/17 08:58 12/09/17 08:58 12/09/17 08:58 Oxygen Flow Rate (L/min) 1 Oxygen Delivery Method Room Air Weight: 79.8 kg Body Mass Index (BMI) 32.1 Intake and Output for Last 24 Hours 12/07/17 12/08/17 12/09/17 23:59 23:59 23:59 Intake Total 2011 964 / 964 641 / 641 Output Total 1625 / 1625 1175 / 1175 475 / 475 Balance 387 / 387 -211 / -211 166 / 166 General: Alert, Cooperative, No apparent distress HEENT: Atraumatic, Normocephalic Oral: Moist Mucosa, No Gingival or Mucosal Lesions/ Ulcerations Neck: No Nodes, Thyroid Normal Size and Texture Lungs: Clear to auscultation, Normal air movement, No rhonchi, No wheeze Cardiovascular: Regular rate, Regular Rhythm, Normal S1, Normal S2, No murmurs Abdomen: Bowel Sounds Present, Soft, Non Tender, Non-Distended, No Hepato-splenomegaly Extremities: No edema, No Calf Tenderness Skin: No rashes, No breakdown Musculoskeletal: No Tenderness to Palpation of Joints or Extremities, No Muscle Wasting Psych/Mental Status: Normal Affect, Appropriate Microbiology Past 72 Hours 12/05/17 13:10 Blood Culture (Wb) - Left Hand Blood Culture - Preliminary Meth. resistant Staph. aureus 12/06/17 08:44 Blood Culture (Wb) - Left Hand Blood Culture - Preliminary Meth. resistant Staph. aureus 12/01/17 11:20 Blood Culture (Wb) - Right Hand Blood Culture - Final Staphylococcus aureus 12/04/17 13:28 Blood Culture (Wb) - Anticubital Left Blood Culture - Preliminary No growth in 48 hours. Current Medications Acetaminophen (Tylenol) 650 mg PO Q6H PRN PRN PRN Reason: Mild Pain (scale 0-3)/T>100.7 Last Admin: 12/09/17 09:36 Dose: 650 mg Albuterol Sulfate (Ventolin Aerosols) 2.5 mg INHALATION Q6HWA.RT [facility] Last Admin: 12/09/17 06:53 Dose: 2.5 mg Budesonide (Pulmicort Aerosol) 0.5 mg INHALATION Q12H.RT [facility] Last Admin: 12/09/17 06:53 Dose: 0.5 mg Enoxaparin Sodium (Lovenox) 40 mg SC DAILY [facility] Last Admin: 12/09/17 09:38 Dose: 40 mg Fluticasone Propionate (Flonase Nasal [place]) 2 spray NASAL DAILY [facility] Last Admin: 12/08/17 08:25 Dose: 2 spray Daptomycin 650 mg/ Sodium (Chloride) 63 mls @ 100 mls/hr IV Q24 [facility] Last Admin: 12/09/17 10:37 Dose: 100 mls/hr Ibuprofen (Motrin) 400 mg PO Q4H PRN PRN PRN Reason: MILD PAIN (1-3/10) Last Admin: 12/09/17 09:39 Dose: 400 mg Labetalol HCl (Trandate) 10 mg IV Q4H PRN PRN PRN Reason: SBP > 160 Lisinopril (Zestril) 10 mg PO DAILY [facility] Last Admin: 12/09/17 09:38 Dose: 10 mg Magnesium Hydroxide (Milk Of Magnesia) 30 ml PO DAILY PRN PRN PRN Reason: Constipation Nutritional Formula (Lactose Free) (Ensure Clear) 120 ml PO 4X/DAY [facility] Last Admin: 12/09/17 09:39 Dose: 120 ml Ondansetron HCl (Zofran) 4 mg IV Q8H PRN PRN PRN Reason: Nausea Last Admin: 12/09/17 09:37 Dose: 4 mg Senna/Docusate Sodium (Senokot-S, Radha-Colace) 1 tablet PO BID [facility] Last Admin: 12/09/17 09:38 Dose: 1 tablet Sodium Chloride () 5 - 30 ml IV UD PRN PRN Reason: SALINE FLUSH Last Admin: 12/06/17 18:40 Dose: 10 ml Sodium Chloride ([place] Nasal [place]) 2 spray NASAL TID PRN PRN PRN Reason: NASAL DRYNESS Throat Lozenges (Cepacol Sore Throat Lozenge) 1 lozenge MUCOUS MEM Q2H PRN PRN PRN Reason: SORE THROAT Medical Necessity - Tobacco Use Smoking Status: Never smoker Assessment/Plan All Active Problems Cellulitis (Acute) Altered mental status, unspecified (Acute) Sepsis affecting skin (Acute) Acute encephalopathy (Acute) MRSA bacteremia (Acute) Hip pain, right (Acute) Acute back pain (Acute) 1. MRSA bacteremia on Daptomycin Culture + on and Midline removed 12/06 (placed on the )--question if it became infected from the prior bacteremia which was due to an infected pain pump MOSES negative for endocarditis ID following. follow repeat Cx on and --so far negative. 2. Infected Pain pump extracted on the Cx + for MRSA incision looked intact US showed a possible seroma. If still bacteremia, may need to consider consult to general surgery for I+D to r/o abscess. 3. acute HFpEF EF 70% from echocardiogram on the Finished 4 doses of IV lasix. stable at this time 4. Maxillary sinus tenderness may be sinusitis. Saline nasal spray Flonase 5. Migraine if refractory to acetaminophen and ibuprofen, start PRN phenergan and diphenydramine avoid Decadron given infection 6. DVT proph: SQ heparin. 7. Disposition: to SNF when cultures have been deemed negative. but will need precert started at that time. Code Visit Inpatient E&M: 57596 Subs Hosp L2
--- NOTE | 2017-12-09 10:55 | PN_ITS ---
Patient Problems: Active and Suspected Problems Cellulitis (Acute) Altered mental status, unspecified (Acute) Sepsis affecting skin (Acute) Acute encephalopathy (Acute) MRSA bacteremia (Acute) Subjective: complains of headache. relieved yesterday when she sat up in chair. Vitals/I&O's: Vital Signs Temp Pulse Resp BP Pulse Ox 37.3 C 80 18 146/67 H 95 12/09/17 08:58 12/09/17 08:58 12/09/17 08:58 12/09/17 08:58 12/09/17 08:58 Oxygen Flow Rate (L/min) 1 Oxygen Delivery Method Room Air Weight: 79.8 kg Body Mass Index (BMI) 32.1 Intake and Output for Last 24 Hours 12/07/17 12/08/17 12/09/17 23:59 23:59 23:59 Intake Total 2011 964 / 964 641 / 641 Output Total 1625 / 1625 1175 / 1175 475 / 475 Balance 387 / 387 -211 / -211 166 / 166 General: Alert, Cooperative, No apparent distress HEENT: Atraumatic, Normocephalic Oral: Moist Mucosa, No Gingival or Mucosal Lesions/ Ulcerations Neck: No Nodes, Thyroid Normal Size and Texture Lungs: Clear to auscultation, Normal air movement, No rhonchi, No wheeze Cardiovascular: Regular rate, Regular Rhythm, Normal S1, Normal S2, No murmurs Abdomen: Bowel Sounds Present, Soft, Non Tender, Non-Distended, No Hepato- splenomegaly Extremities: No edema, No Calf Tenderness Skin: No rashes, No breakdown Musculoskeletal: No Tenderness to Palpation of Joints or Extremities, No Muscle Wasting Psych/Mental Status: Normal Affect, Appropriate Microbiology Past 72 Hours 12/05/17 13:10 Blood Culture (Wb) - Left Hand Blood Culture - Preliminary Meth. resistant Staph. aureus 12/06/17 08:44 Blood Culture (Wb) - Left Hand Blood Culture - Preliminary Meth. resistant Staph. aureus 12/01/17 11:20 Blood Culture (Wb) - Right Hand Blood Culture - Final Staphylococcus aureus 12/04/17 13:28 Blood Culture (Wb) - Anticubital Left Blood Culture - Preliminary No growth in 48 hours. Current Medications Acetaminophen (Tylenol) 650 mg PO Q6H PRN PRN PRN Reason: Mild Pain (scale 0-3)/T>100.7 Last Admin: 12/09/17 09:36 Dose: 650 mg Albuterol Sulfate (Ventolin Aerosols) 2.5 mg INHALATION Q6HWA.RT [facility] Last Admin: 12/09/17 06:53 Dose: 2.5 mg Budesonide (Pulmicort Aerosol) 0.5 mg INHALATION Q12H.RT [facility] Last Admin: 12/09/17 06:53 Dose: 0.5 mg Enoxaparin Sodium (Lovenox) 40 mg SC DAILY [facility] Last Admin: 12/09/17 09:38 Dose: 40 mg Fluticasone Propionate (Flonase Nasal [place]) 2 spray NASAL DAILY [facility] Last Admin: 12/08/17 08:25 Dose: 2 spray Daptomycin 650 mg/ Sodium (Chloride) 63 mls @ 100 mls/hr IV Q24 [facility] Last Admin: 12/09/17 10:37 Dose: 100 mls/hr Ibuprofen (Motrin) 400 mg PO Q4H PRN PRN PRN Reason: MILD PAIN (1-3/10) Last Admin: 12/09/17 09:39 Dose: 400 mg Labetalol HCl (Trandate) 10 mg IV Q4H PRN PRN PRN Reason: SBP > 160 Lisinopril (Zestril) 10 mg PO DAILY [facility] Last Admin: 12/09/17 09:38 Dose: 10 mg Magnesium Hydroxide (Milk Of Magnesia) 30 ml PO DAILY PRN PRN PRN Reason: Constipation Nutritional Formula (Lactose Free) (Ensure Clear) 120 ml PO 4X/DAY [facility] Last Admin: 12/09/17 09:39 Dose: 120 ml Ondansetron HCl (Zofran) 4 mg IV Q8H PRN PRN PRN Reason: Nausea Last Admin: 12/09/17 09:37 Dose: 4 mg Senna/Docusate Sodium (Senokot-S, Radha-Colace) 1 tablet PO BID [facility] Last Admin: 12/09/17 09:38 Dose: 1 tablet Sodium Chloride () 5 - 30 ml IV UD PRN PRN Reason: SALINE FLUSH Last Admin: 12/06/17 18:40 Dose: 10 ml Sodium Chloride ([place] Nasal [place]) 2 spray NASAL TID PRN PRN PRN Reason: NASAL DRYNESS Throat Lozenges (Cepacol Sore Throat Lozenge) 1 lozenge MUCOUS MEM Q2H PRN PRN PRN Reason: SORE THROAT Medical Necessity - Tobacco Use Smoking Status: Never smoker Assessment/Plan All Active Problems Cellulitis (Acute) Altered mental status, unspecified (Acute) Sepsis affecting skin (Acute) Acute encephalopathy (Acute) MRSA bacteremia (Acute) Hip pain, right (Acute) Acute back pain (Acute) 1. MRSA bacteremia * on Daptomycin * Culture + on and * Midline removed 12/06 (placed on the )--question if it became infected from the prior bacteremia which was due to an infected pain pump * MOSES negative for endocarditis * ID following. * follow repeat Cx on and --so far negative. 2. Infected Pain pump * extracted on the * Cx + for MRSA * incision looked intact * US showed a possible seroma. * If still bacteremia, may need to consider consult to general surgery for I+D t o r/o abscess. 3. acute HFpEF * EF 70% from echocardiogram on the * Finished 4 doses of IV lasix. * stable at this time 4. Maxillary sinus tenderness * may be sinusitis. * Saline nasal spray * Flonase 5. Migraine * if refractory to acetaminophen and ibuprofen, start PRN phenergan and diphenydramine * avoid Decadron given infection 6. DVT proph: SQ heparin. 7. Disposition: * to SNF when cultures have been deemed negative. * but will need precert started at that time. Code Visit Inpatient E&M: [id number] Subs Hosp L2
--- NOTE | 2017-12-09 11:25 | PCM.PN.ID ---
Patient Problems: Active and Suspected Problems Cellulitis (Acute) Altered mental status, unspecified (Acute) Sepsis affecting skin (Acute) Acute encephalopathy (Acute) MRSA bacteremia (Acute) Subjective: Feeling better. Still some frontal headache. Pain overall improved. No fever. - Physical Exam General: Alert, Cooperative, No apparent distress Lungs: Clear to auscultation, Normal air movement Cardiovascular: Regular rate, Regular Rhythm Abdomen: Soft, Non Tender, Non-Distended Skin: No rashes Vital Signs Temp Pulse Resp BP Pulse Ox 99.1 F 80 18 146/67 H 95 12/09/17 08:58 12/09/17 08:58 12/09/17 08:58 12/09/17 08:58 12/09/17 08:58 Oxygen Flow Rate (L/min) 1 Oxygen Delivery Method Room Air Weight: 79.8 kg Body Mass Index (BMI) 32.1 Intake and Output for Last 24 Hours 12/07/17 12/08/17 12/09/17 23:59 23:59 23:59 Intake Total 2011 964 / 964 641 / 641 Output Total 1625 / 1625 1175 / 1175 475 / 475 Balance 387 / 387 -211 / -211 166 / 166 Microbiology Past 72 Hours 12/05/17 13:10 Blood Culture - Preliminary Blood Culture (Wb) - Left Hand Meth. resistant Staph. aureus 12/06/17 08:44 Blood Culture - Preliminary Blood Culture (Wb) - Left Hand Meth. resistant Staph. aureus 12/01/17 11:20 Blood Culture - Final Blood Culture (Wb) - Right Hand Staphylococcus aureus 12/04/17 13:28 Blood Culture - Preliminary Blood Culture (Wb) - Anticubital Left No growth in 48 hours. Medical Necessity - Tobacco Use Smoking Status: Never smoker Route of nutrition/ use of supplements: [] Nutritional Intake: [] IV Site: [] Painting Catheter: [] - Assessment/Plan Antibiotics: [] Assessment/Plan: [] Active and Suspected Problems Cellulitis (Acute) Altered mental status, unspecified (Acute) Sepsis affecting skin (Acute) Acute encephalopathy (Acute) MRSA bacteremia - recent spine stimulator placement as source. Removal done 11/30 with heavy purulence at both surgical sites. CT showed no clear abscess, but there are sizeable areas of induration. MOSES neg for veg. Bcx from 12/06 still (+) for staph. 12/03 changed to dapto for better bactericidal effect. CK is normal. Have requested send out testing for dapto and ceftaroline. Continues to be bacteremic on dapto but overall feeling better. Midline removed 12/07. U/s showed very small fluid collection at midline incision. Will follow
--- NOTE | 2017-12-09 13:11 | CASEMGMT ---
Social Work Note On 12/07/2017 this worker spoke with pt's daughter Jeimy regarding advanced directives. Per Jeimy she was going to look for advanced directives and bring in a copy if she was able to find them. Renetta Mei TAX CLERK, EXTRUSION DIE REPAIRER
--- NOTE | 2017-12-09 15:14 | NURSING ---
DOSE OF K+20 MEQ NOT HERE FROM rX, NOTE SENT TO PHARMACY TO PLEASE SEND-UNABLE TO PULL DOSE FROM ACCUDOSE ALSO
[2017-12-09] MEDS: DiphenhydrAMINE 25 MG Capsule 50 MG PO (23:59)
[2017-12-10 02:35] VITALS: BP 107/50; PULSE 72; RESP 16; TEMP 36.3; O2SAT 94
[2017-12-10] MEDS: Albuterol 2.5 MG/3 ML VIAL.NEB. INHALATION ×2 (07:46→13:36)
[2017-12-10] MEDS: Budesonide Respules 0.5 MG/2 ML AMPUL.NEB. INHALATION (07:46)
[2017-12-10 07:47] VITALS: PULSE 82; RESP 20; O2SAT 94
[2017-12-10 08:03] LABS: Absolute Lymphocyte Count 1.32 X10^3/ul (0.83-4.51); Absolute Neutrophil Count 11.1 X10^3/uL (2.0-7.7); Basophil# 0.06 X10^3/uL; Basophil% 0.4 % (0-1); Differential Indicated SCAN CRITERIA MET; Eosinophil# 0.03 X10^3/uL; Eosinophils% 0.2 % (0-5); Hematocrit 28.1 % (37-47); Hemoglobin 8.8 g/dl (12.0-15.0); Lymphocyte # 1.32 X10^3/ul (4.0); Lymphocyte % 9.3 % (19-41); Mean Corp Hgb Conc 31.3 g/gl (32-36); Mean Corpuscular Volume 86.2 fL (81-99); Mean Platelet Vol. 9.2 fl (6.2-12.0); Monocyte# 1.57 X10^3/uL; Monocyte% 11.1 % (0-10); Neutrophil # 11.12 X10^3/uL (2.7-7.7); Neutrophil % 78.4 % (47-70); POSITIVE COUNT NO; POSITIVE DIFFERENTIAL YES; POSITIVE MORPHOLOGY YES; Platelet Count 607 K/mm3 (150-450); RBC Distribution Width CV 14.9 % (11.6-14.6); Red Blood Count 3.26 M/mm3 (4.2-5.4); White Blood Count 14.2 K/mm3 (4.4-11.0)
[2017-12-10 08:14] LABS: Anion Gap 5 (5-15); BUN 23 mg/dL (7-18); Calcium,Total 7.8 mg/dL (8.5-10.1); Chloride 104 mmol/L (98-107); Creatinine, Serum 0.66 mg/dL (0.55-1.02); EST Glomerular Filtration Rate 94 mL/min (>60); Est Glom Filt Rate - Afr Amer 114 mL/min (>60); Estimated Creatinine Clearance 40.81 ml/min; Glucose 88 mg/dL (74-106); Potassium 4.6 mmol/L (3.5-5.1); Sodium Level 132 mmol/L (136-145)
[2017-12-10 08:28] LABS: Platelet Estimate MOD INC (ADEQ)
[2017-12-10] MEDS: Fluticasone 0.05% 1 SPRAY NASAL.SRY 2 SPRAY NASAL (09:04)
[2017-12-10] MEDS: Lisinopril 10 MG Tablet PO (09:04)
[2017-12-10] MEDS: Senna/Docusate Sodium 1 Tablet PO ×2 (09:04→23:05)
[2017-12-10] MEDS: Enoxaparin 40 MG/0.4 ML Syringe SC (10:41)
--- NOTE | 2017-12-10 10:42 | CASEMGMT ---
Social Work Note Per ID physician pt's blood cultures are still positive and pt won't be discharged now until next week. SW placed a call to Court in TCU and left her a message updating her on this. Plan: TCU when medically cleared and when pre-cert is obtained Renetta Mei MSW, OPERATIONS SCHEDULER
--- NOTE | 2017-12-10 11:23 | US_ITS ---
STUDY: SOFT TISSUE ULTRASOUND OF RIGHT HIP AND MID SPINE SCAR REASON FOR EXAM: Female, 72 years old. Abscess TECHNIQUE: Ultrasound COMPARISON: None. FINDINGS: There is a 9 x 8 x 6 mm anechoic area just deep to the stitches/scar area of the mid spine. An irregular hypoechoic area is noted inferior to the mid spine scar area measuring 3.1 x 1.8 x 1.0 cm. Small abscesses cannot be excluded. There is also a slightly hypoechoic amorphic area within the subcutaneous soft tissue, possibly a hematoma or collection. In the right hip scar area, there is a 8.9 x 4.4 cm heterogeneous structure, possibly a hematoma. US/Ext Non Vasc Limited/Soft Tiss IMPRESSION: Anechoic to hypoechoic small collections are noted along the mid spine scar area possibly seroma or abscess. Heterogeneous structure the right hip scar area possibly a hematoma. Correlate with contrast-enhanced CT if clinically indicated. Electronically Signed: Gal Edge DO at 18:38 EDT Tel [phone], Service support ,
--- NOTE | 2017-12-10 11:26 | PN.ID_ITS ---
Patient Problems: Active and Suspected Problems Cellulitis (Acute) Altered mental status, unspecified (Acute) Sepsis affecting skin (Acute) Acute encephalopathy (Acute) MRSA bacteremia (Acute) Subjective: Feeling ok, no fever, no muscle aches - Physical Exam General: Alert, Cooperative, No apparent distress Lungs: Clear to auscultation, Normal air movement Cardiovascular: Regular rate, Regular Rhythm Abdomen: Soft, Non Tender, Non-Distended Skin: No rashes Vital Signs Temp Pulse Resp BP Pulse Ox 97.3 F L 82 20 H 107/50 L 94 12/10/17 02:35 12/10/17 07:47 12/10/17 07:47 12/10/17 02:35 12/10/17 07:47 Oxygen Flow Rate (L/min) 1 Oxygen Delivery Method Room Air Weight: 79.8 kg Body Mass Index (BMI) 32.1 Intake and Output for Last 24 Hours 12/08/17 12/09/17 12/10/17 23:59 23:59 23:59 Intake Total 964 / 964 1163 / 1163 300 / 300 Output Total 1175 / 1175 1275 / 1275 300 / 300 Balance -211 / -211 -112 / -112 0 / 0 Microbiology Past 72 Hours 12/09/17 10:06 Blood Culture - Preliminary Blood Culture (Wb) - Right Hand 12/04/17 13:28 Blood Culture - Final Blood Culture (Wb) - Anticubital Left No growth in 5 days. 12/07/17 10:15 Blood Culture - Preliminary Blood Culture (Wb) - Right Hand No growth in 48 hours. 12/05/17 13:10 Blood Culture - Preliminary Blood Culture (Wb) - Left Hand Meth. resistant Staph. aureus 12/06/17 08:44 Blood Culture - Preliminary Blood Culture (Wb) - Left Hand Meth. resistant Staph. aureus Laboratory Tests Past 24 Hrs 12/10/17 12/10/17 07:44 07:44 WBC 14.2 H RBC 3.26 L Hgb 8.8 L Hct 28.1 L MCV 86.2 MCH 27.0 MCHC 31.3 L RDW 14.9 H RDW Differential 45.0 H Plt Count 607 H MPV 9.2 Immature Gran % (Auto) 0.600 Neut % (Auto) 78.4 H Lymph % (Auto) 9.3 L [place] % (Auto) 11.1 H Eos % (Auto) 0.2 Baso % (Auto) 0.4 Absolute Neuts (auto) 11.1 H Absolute Lymphs (auto) 1.32 Total Counted Not Reportable Diff Path Review May foll Platelet Estimate MOD INC Sodium 132 L Potassium 4.6 Chloride 104 Carbon Dioxide 23.0 Anion Gap 5 BUN 23 H Creatinine 0.66 Estim Creat Clear Calc 40.81 Est GFR (MDRD) Af Amer 114 Est GFR (MDRD) Non-Af 94 BUN/Creatinine Ratio 35.0 H Glucose 88 Calcium 7.8 L Medical Necessity - Tobacco Use Smoking Status: Never smoker Route of nutrition/ use of supplements: [] Nutritional Intake: [] IV Site: [] Painting Catheter: [] - Assessment/Plan Antibiotics: [] Assessment/Plan: [] Active and Suspected Problems Cellulitis (Acute) Altered mental status, unspecified (Acute) Sepsis affecting skin (Acute) Acute encephalopathy (Acute) MRSA bacteremia - recent spine stimulator placement as source. Removal done 11/30 with heavy purulence at both surgical sites. CT showed no clear abscess, but there are sizeable areas of induration. MOSES neg for veg. Bcx from 12/06 still (+) for staph. 12/09 bcx with GPC on gram stain. 12/03 changed to dapto for better bactericidal effect. CK is normal. Have requested send out testing for dapto and ceftaroline. Continues to be bacteremic on dapto but overall feeling better. Midline removed 12/07. U/s showed very small fluid collection at midline incision. Will repeat; if unchanged or larger, recommend surgical eval for drainage. Will follow
[2017-12-10] MEDS: Ibuprofen 400 MG Tablet PO (13:19)
[2017-12-10 13:37] VITALS: PULSE 96; RESP 20
[2017-12-10 15:10] VITALS: BP 136/57; PULSE 97; RESP 16; TEMP 37; O2SAT 95
--- NOTE | 2017-12-10 15:17 | NURSING ---
US called at this time to ensure order would be completed today. Notified that patient will have ultrasound within next hour.
--- NOTE | 2017-12-10 18:16 | PN_ITS ---
Patient Problems: Active and Suspected Problems Cellulitis (Acute) Altered mental status, unspecified (Acute) Sepsis affecting skin (Acute) Acute encephalopathy (Acute) MRSA bacteremia (Acute) Subjective: Patient was seen and examined today, patient appears appropriate today, I also talked with Dr. Brown regarding her wound site and he is going to examine it before he leaves tonight as he will not be here tomorrow. Infectious diseases ordered a bedside ultrasound on the area, I do not have the results of this examination at the present time. Patient's white cell count is still elevated at 14.2, patient's blood culture drawn on 12/09/17 shows gram-positive cocci on Gram stain. Patient's maximal temperature today was 98.6. - Physical Exam General: Alert, Oriented x3, Cooperative, No apparent distress, Well developed, Well nourished HEENT: Atraumatic, PERRLA, EOMI, Normocephalic Oral: Moist Mucosa Neck: Supple, Trachea Midline, Thyroid Normal Size and Texture Lungs: Clear to auscultation, Normal air movement, No rhonchi, No wheeze, No rales Cardiovascular: Regular rate, Regular Rhythm, Normal S1, Normal S2, No murmurs, No Ectopic Activity, PMI Normal, No rub noted, No Gallop Abdomen: Bowel Sounds Present, Soft, Non Tender, Non-Distended Extremities: No clubbing, No cyanosis, No edema, Capillary Refill Less than 3 Seconds Neurological: Cranial nerves II-XII grossly intact, Neuro grossly intact, Sensory exam intact to light touch and pain Psych/Mental Status: Normal Affect, Appropriate, Alert and oriented to time, place, person, mood and affect Vital Signs Temp Pulse Resp BP Pulse Ox 98.6 F 97 16 136/57 H 95 12/10/17 15:10 12/10/17 15:10 12/10/17 15:10 12/10/17 15:10 12/10/17 15:10 Oxygen Flow Rate (L/min) 1 Oxygen Delivery Method Room Air Weight: 79.8 kg Body Mass Index (BMI) 32.1 Intake and Output for Last 24 Hours 12/08/17 12/09/17 12/10/17 23:59 23:59 23:59 Intake Total 964 / 964 1163 / 1163 1231 / 1231 Output Total 1175 / 1175 1275 / 1275 600 / 600 Balance -211 / -211 -112 / -112 631 / 631 Microbiology Past 72 Hours 12/05/17 13:10 Blood Culture - Final Blood Culture (Wb) - Left Hand Meth. resistant Staph. aureus 12/08/17 10:44 Blood Culture - Preliminary Blood Culture (Wb) - No Site/Description Given No growth in 48 hours. 12/09/17 10:06 Blood Culture - Preliminary Blood Culture (Wb) - Right Hand 12/04/17 13:28 Blood Culture - Final Blood Culture (Wb) - Anticubital Left No growth in 5 days. 12/07/17 10:15 Blood Culture - Preliminary Blood Culture (Wb) - Right Hand No growth in 48 hours. 12/06/17 08:44 Blood Culture - Preliminary Blood Culture (Wb) - Left Hand Meth. resistant Staph. aureus Laboratory Tests Past 24 Hrs 12/10/17 12/10/17 07:44 07:44 WBC 14.2 H RBC 3.26 L Hgb 8.8 L Hct 28.1 L MCV 86.2 MCH 27.0 MCHC 31.3 L RDW 14.9 H RDW Differential 45.0 H Plt Count 607 H MPV 9.2 Immature Gran % (Auto) 0.600 Neut % (Auto) 78.4 H Lymph % (Auto) 9.3 L [place] % (Auto) 11.1 H Eos % (Auto) 0.2 Baso % (Auto) 0.4 Absolute Neuts (auto) 11.1 H Absolute Lymphs (auto) 1.32 Total Counted Not Reportable Diff Path Review May foll Platelet Estimate MOD INC Sodium 132 L Potassium 4.6 Chloride 104 Carbon Dioxide 23.0 Anion Gap 5 BUN 23 H Creatinine 0.66 Estim Creat Clear Calc 40.81 Est GFR (MDRD) Af Amer 114 Est GFR (MDRD) Non-Af 94 BUN/Creatinine Ratio 35.0 H Glucose 88 Calcium 7.8 L Medical Necessity - Tobacco Use Smoking Status: Never smoker Assessment/Plan All Active Problems Cellulitis (Acute) Altered mental status, unspecified (Acute) Sepsis affecting skin (Acute) Acute encephalopathy (Acute) MRSA bacteremia (Acute) Hip pain, right (Acute) Acute back pain (Acute) #1 MRSA bacteremia secondary to infected pain pump-continue present antibiotic coverage per ID, awaiting negative blood cultures-blood culture drawn on 12/09/17 shows evidence of gram-positive cocci on Gram stain #2 metabolic [id number] to MRSA bacteremia #3 infected spinal stimulator-removed on 11/29/17 #4 hypertension #5 COPD #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 I think is more likely the patient just had fluid overload. Code Visit Inpatient E&M: 15360 Subs Hosp L2
[2017-12-10 22:49] VITALS: BP 124/59; PULSE 69; RESP 16; TEMP 36.4; O2SAT 96
[2017-12-10] MEDS: Acetaminophen/Butalbital/Caffe 1 Tablet 2 TABLET PO (23:05)
[2017-12-11] VITALS (11 sets, daily range): BP systolic 102–135; BP diastolic 43–67; PULSE 65–83; RESP 16–18; TEMP 36.1–36.8; O2SAT 90–98
[2017-12-11] MEDS: Ibuprofen 400 MG Tablet PO ×4 (02:42→21:16)
[2017-12-11] MEDS: Ondansetron 4 MG/2 ML Vial IV (06:18)
[2017-12-11 06:24] LABS: Hematocrit 23.6 % (37-47); Hemoglobin 7.4 g/dl (12.0-15.0); Mean Corp Hgb Conc 31.4 g/gl (32-36); Mean Corpuscular Hgb 26.6 pg (27.0-32.0); Mean Corpuscular Volume 84.9 fL (81-99); Mean Platelet Vol. 8.4 fl (6.2-12.0); Platelet Count 489 K/mm3 (150-450); RBC Distribution Width SD 46.9 fl (35.1-43.9); Red Blood Count 2.78 M/mm3 (4.2-5.4); White Blood Count 9.7 K/mm3 (4.4-11.0)
[2017-12-11 06:25] LABS: Scan Indicated on CBC? Y/N NO
[2017-12-11] MEDS: Albuterol 2.5 MG/3 ML VIAL.NEB. INHALATION ×3 (06:40→18:43)
[2017-12-11] MEDS: Budesonide Respules 0.5 MG/2 ML AMPUL.NEB. INHALATION ×2 (06:40→18:43)
[2017-12-11 06:42] LABS: BUN 20 mg/dL (7-18); BUN/Creat Ratio 36.2 RATIO (10-20); Calcium,Total 7.6 mg/dL (8.5-10.1); Creatinine, Serum 0.55 mg/dL (0.55-1.02); EST Glomerular Filtration Rate 115 mL/min (>60); Est Glom Filt Rate - Afr Amer 139 mL/min (>60); Estimated Creatinine Clearance 40.81 ml/min; Glucose 90 mg/dL (74-106); Potassium 3.9 mmol/L (3.5-5.1); Sodium Level 136 mmol/L (136-145)
[2017-12-11 06:43] LABS: Anion Gap 7 (5-15); Chloride 104 mmol/L (98-107)
[2017-12-11 06:46] LABS: CPK Total, Creatine Kinase 26 U/L (26-192)
--- NOTE | 2017-12-11 07:22 | CON.PCM_ITS ---
Reason for Consult Date of Consultation: 12/11/17 History of Present Illness: The patient is a 72 year old F admitted due to MRSA bacteremia/infected nerve stimulator sites. Patient did have a nerve stimulator removed 11/30/17. Patient has been followed by ID throughout hospitalization her blood cultures were initially negative on 12/07 and however 12/09 were positive again. Patient did have a midline removed on 12/07 which was not sent for cultures. Patient's white blood cell count has ranged between 12 and 14 for the last few days on abx per ID. ID change her antibiotics to daptomycin and her white blood cell count is down to 9.2 today. I was asked by Dr. Brown see the patient for possible washout of the incision sites. Patient has not been having fevers. Past Medical History Past Medical History (Chronic Problems): Chronic Problems Chronic back pain (Chronic) Asthma (Chronic) HTN (hypertension) (Chronic) COPD (chronic obstructive pulmonary disease) (Chronic) Allergies No Known Allergies Allergy (Verified 11/29/17 18:30) Home Medications: Ambulatory Orders Medication Instructions Recorded Fluticasone/Salmeterol [Advair 1 puff INHALATION DAILY PRN 09/28/15 250/50 Mcg Diskus] Lisinopril/Hydrochlorothiazide 1 tablet PO DAILY 01/14/16 [Zestoretic 12/04.5 Tablet] Acetaminophen [Tylenol Tablet] 650 mg PO Q6 PRN 03/24/17 Senna/Docusate Sodium [Senokot-S] 1 tablet PO DAILY 11/10/17 Amox/Clavulanate Tablet [Augmentin 875 mg PO Q12H #20 tablet 11/28/17 Tablet] Ondansetron [Zofran Odt] 8 mg PO Q8H PRN PRN #10 tab 11/28/17 Potassium Cloride Effervescent 25 meq PO DAILY #7 tablet.eff 11/28/17 [Potassium Chl 25 Meq Eff (For Liquid)] DAPTOmycin [Cubicin] 650 mg IV Q24 #25 vial 12/10/17 Surgical History: appendectomy, cholecystectomy, hysterectomy, - - Hysterectomy, right knee arthroscopic surgery, left shoulder rotator cuff tear intervention, hernia repair, left total knee replacement, left knee arthroscopic surgery, right knee replacement, back surgery, left total hip arthroplasty, right total hip arthroplasty, appendectomy. Lives: Spouse/ Significant Other Smoking Status: Never smoker - *Family History Maternal History Items: COPD Paternal History Items: COPD, Heart Disease, Hypertension Patient Problems: Active and Suspected Problems Cellulitis (Acute) Altered mental status, unspecified (Acute) Sepsis affecting skin (Acute) Acute encephalopathy (Acute) MRSA bacteremia (Acute) - Physical Exam General: Alert, Oriented x3, Cooperative, No apparent distress Abdomen: Soft, Non Tender, Non-Distended Skin: - - Back incision with only minimal erythema near justina, positive fluctuance, tender to palpation. Right hip incision again minimal erythema near justina, positive tenderness palpation. there was a patch of blanching light erythema between the 2 incisions about 5x5cm Neurological: Cranial nerves II-XII grossly intact Psych/Mental Status: Normal Affect Vital Signs Temp Pulse Resp BP Pulse Ox 98.2 F 71 16 135/61 H 95 12/11/17 02:29 12/11/17 02:29 12/11/17 02:29 12/11/17 02:29 12/11/17 02:29 Oxygen Flow Rate (L/min) 1 Oxygen Delivery Method Room Air Weight: 175 lb 14.862 oz Body Mass Index (BMI) 32.1 Intake and Output for Last 24 Hours 12/09/17 12/10/17 12/11/17 23:59 23:59 23:59 Intake Total 1163 / 1163 1578 / 1578 592 / 592 Output Total 1275 / 1275 600 / 600 600 / 600 Balance -112 / -112 978 / 978 -8 / -8 Microbiology Past 72 Hours 12/08/17 10:44 Blood Culture - Preliminary Blood Culture (Wb) - No Site/Description Given 12/09/17 10:06 Blood Culture - Preliminary Blood Culture (Wb) - Right Hand 12/05/17 13:10 Blood Culture - Final Blood Culture (Wb) - Left Hand Meth. resistant Staph. aureus 12/04/17 13:28 Blood Culture - Final Blood Culture (Wb) - Anticubital Left No growth in 5 days. 12/07/17 10:15 Blood Culture - Preliminary Blood Culture (Wb) - Right Hand No growth in 48 hours. 12/06/17 08:44 Blood Culture - Preliminary Blood Culture (Wb) - Left Hand Meth. resistant Staph. aureus Laboratory Tests Past 24 Hrs 12/10/17 12/10/1718 07:44 07:44 06:08 WBC 14.2 H RBC 3.26 L Hgb 8.8 L Hct 28.1 L MCV 86.2 MCH 27.0 MCHC 31.3 L RDW 14.9 H RDW Differential 45.0 H Plt Count 607 H MPV 9.2 Immature Gran % (Auto) 0.600 Neut % (Auto) 78.4 H Lymph % (Auto) 9.3 L [place] % (Auto) 11.1 H Eos % (Auto) 0.2 Baso % (Auto) 0.4 Absolute Neuts (auto) 11.1 H Absolute Lymphs (auto) 1.32 Total Counted Not Reportable Diff Path Review May foll Platelet Estimate MOD INC Sodium 132 L Potassium 4.6 Chloride 104 Carbon Dioxide 23.0 Anion Gap 5 BUN 23 H Creatinine 0.66 Estim Creat Clear Calc 40.81 Est GFR (MDRD) Af Amer 114 Est GFR (MDRD) Non-Af 94 BUN/Creatinine Ratio 35.0 H Glucose 88 Calcium 7.8 L Total Creatine Kinase 26 12/11/17 12/11/17 06:08 06:08 WBC 9.7 RBC 2.78 L Hgb 7.4 L Hct 23.6 L MCV 84.9 MCH 26.6 L MCHC 31.4 L RDW 15.0 H RDW Differential 46.9 H Plt Count 489 H MPV 8.4 Immature Gran % (Auto) Neut % (Auto) Lymph % (Auto) [place] % (Auto) Eos % (Auto) Baso % (Auto) Absolute Neuts (auto) Absolute Lymphs (auto) Total Counted Diff Path Review Platelet Estimate Sodium 136 Potassium 3.9 Chloride 104 Carbon Dioxide 25.0 Anion Gap 7 BUN 20 H Creatinine 0.55 Estim Creat Clear Calc 40.81 Est GFR (MDRD) Af Amer 139 Est GFR (MDRD) Non-Af 115 BUN/Creatinine Ratio 36.2 H Glucose 90 Calcium 7.6 L Total Creatine Kinase Assessment/Plan All Active Problems Cellulitis (Acute) Altered mental status, unspecified (Acute) Sepsis affecting skin (Acute) Acute encephalopathy (Acute) MRSA bacteremia (Acute) Hip pain, right (Acute) Acute back pain (Acute) 72-year-old female status post infected nerve stimulator removed, positive for MRSA infection at those sites and positive MRSA bacteremia 1. Discussed with patient that I can take her to the OR for an I&D of the mid back and right hip incision just to wash them out to make sure there are not the source of the recurrent bacteremia as she had an echo which not show any vegetations and her midline was removed on 12/07. Her white blood cell count last few days has been between 12 and 14. ID did change her antibiotics to daptomycin and sure her white blood cell count is down to 9.2 today. Discussed with patient the procedure of taking out a few justina making a small repeat incision and allowing the area to drain after washing it out with irrigation and gettting wound cultures. And then leaving packing within to allow this area is to drain in case there is still infection in these areas as fluid collections were seen on CT a/p and u/s of the areas. Overall the wounds do not look really erythematous but unsure why should get a recurrent bacteremia other than the original source which was closed initially after purulent material was expressed on 11/30/17. Patient is agreeable to plan, as she is having pain in her right hip incision worse than her mid back. Also discussed with pt daughter and she was agreeable with plan. Santa Otoole M.D. Pager: [phone] [facility] [address] [place] [address], [facility], [address] [place] [address] Office: [phone]
--- NOTE | 2017-12-11 07:26 | NURSING ---
In to assess surgical incisions with Dr Otoole. minimal redness noted along the justina. no drainage noted. no periwound erythema. patient c/o some discomfort especially to the right upper buttock incision. Dr Otoole plans for an I&D of the incisions with washout and plans to leave small wick to promote drainage. will monitor as needed.
--- NOTE | 2017-12-11 09:00 | PCM.OPRPT ---
Report of Operation Date of Procedure: 12/11/17 Pre-Operative Diagnosis: bacteremia MRSA, MRSA infection at nerve stimulator site Post-Operative Diagnosis: Same Surgery/Procedure Performed:: Incision and debridement of the right hip incision, mid back incision Type of Anesthesia:: MAC Anesthesiologist: Ney Manning Special Medications: Patient is on antibiotics daptomycin per ID for MRSA bacteremia Specimen's removed: Cultures from the right hip and mid back abscesses, tissue from the right hip debridement--for aerobic/anaerobic/gram stain Estimated Blood Loss (mL): <10 cc Fluids Replaced: 400 cc Description of Procedure: Patient was brought to the operating room correct patient, procedure, site, positioning, special, was verified prior to procedure. Patient was placed in left lateral decubitus position with appropriate padding. MAC anesthesia was induced. The back and right posterior hip incisions were prepped and draped in the usual sterile fashion with Betadine. The lower midline incision as well as the right posterior hip incision was anesthetized with 1% lidocaine. Justina were removed from those areas only leaving some justina in the upper portion of the midback incision. The incision was re-incised with a 15 blade scalpel. Copious purulent material was drained/expressed from both wounds probably about 150-200 cc. These were both cultured. Both wounds were irrigated with a total of 6 L of irrigation using the pulse lavage. Able to identify at the tract between the 2 incisions and able to irrigate the tract from right hip wound to mid back with 2 liters of the 6 liters. Small amount of tissue was debrided from the right posterior hip incision cavity. The cavity size of the right hip was 10 cm in length, 7 cm in width, and 3 cm in depth; the back incision cavity was 3.5 centimeters in depth, 6.5 cm in length, 3 cm in width. The remaining tissue at the posterior hip incision and mid back incision was viable. The wounds were packed with Kerlix soaked in Betadine. Patient tolerated procedure well and was taken to the postanesthesia care unit in stable condition. - Complications none
--- NOTE | 2017-12-11 09:04 | OP.PCM_ITS ---
Report of Operation Date of Procedure: 12/11/17 Pre-Operative Diagnosis: bacteremia MRSA, MRSA infection at nerve stimulator site Post-Operative Diagnosis: Same Surgery/Procedure Performed:: Incision and debridement of the right hip incision, mid back incision Type of Anesthesia:: MAC Anesthesiologist: Ney Manning Special Medications: Patient is on antibiotics daptomycin per ID for MRSA kalin teremia Specimen's removed: Cultures from the right hip and mid back abscesses, tissue from the right hip debridement--for aerobic/anaerobic/gram stain Estimated Blood Loss (mL): <10 cc Fluids Replaced: 400 cc Description of Procedure: Patient was brought to the operating room correct patient, procedure, site, positioning, special, was verified prior to procedure. Patient was placed in left lateral decubitus position with appropriate padding. MAC anesthesia was induced. The back and right posterior hip incisions were prepped and draped in the usual sterile fashion with Betadine. The lower midline incision as well as the right posterior hip incision was anesthetized with 1% lidocaine. Pooler were removed from those areas only leaving some justina in the upper portion of the midback incision. The incision was re-incised with a 15 blade scalpel. Copious purulent material was draine d/expressed from both wounds probably about 150-200 cc. These were both cultured. Both wounds were irrigated with a total of 6 L of irrigation using the pulse lavage. Able to identify at the tract between the 2 incisions and able to irrigate the tract from right hip wound to mid back with 2 liters of the 6 liters. Small amount of tissue was debrided from the right posterior hip incision cavity. The cavity size of the right hip was 10 cm in length, 7 cm in width, and 3 cm in depth; the back incision cavity was 3.5 centimeters in depth, 6.5 cm in length, 3 cm in width. The remaining tissue at the posterior hip incision and mid back incision was viable. The wounds were packed with Kerlix soaked in Betadine. Patient tolerated procedure well and was taken to the postanesthesia care unit in stable condition. - Complications none
--- NOTE | 2017-12-11 09:14 | MRI_ITS ---
STUDY: MRI THORACIC SPINE WITH AND WITHOUT CONTRAST REASON FOR EXAM: Female, 72 years old. Spinal stimulator implanted 11/13/17. Removed on 11/30/17 d/t infection. Continued infection TECHNIQUE: 8 ml of Gadavist was administered intravenously for the contrast portion of the examination. # of Images: 208 COMPARISON: None. FINDINGS: Normal kyphosis of the thoracic spine. There is no substantial scoliosis. T1-2, T2-3, T3-4, T4-5, T5-6, T6-7, T7-8, T8-9, T9-10, T10-11, T11-12: Normal endplates. Normal disc hydration, heights and morphology of the corresponding intervertebral discs. Normal central canal and intervertebral neural foramina at the corresponding levels. There is abnormal enhancement in the anterior epidural space at T2-3, T3-4, T4-5 consistent with inflammatory or infectious process. There is irregular enhancement of the anterior surface of the thoracic spinal cord at the T2-T3 and T4 may represent an infectious process. There is a signal abnormality within the spinal cord at T3 and T4 suggesting edema. Normal conus medullaris that terminates at the L1 level. There is abnormal enhancement in the posterior epidural space at T8-T11 suggesting inflammatory or infectious process. There is no enhancing abnormality. MRI/Spine Thoracic W/WO Contrast IMPRESSION: There is abnormal enhancement in the anterior epidural space at T2-3, T3-4, T4-5 and posterior epidural space at the T8-T11 consistent with inflammatory or infectious process. There is irregular enhancement of the anterior surface of the thoracic spinal cord at the T2-T3 and T4 may represent an infectious process. There is a signal abnormality within the spinal cord at T3 and T4 suggesting edema. Electronically Signed: Ayan De La Fuente MD at 15:54 EDT Tel , Service support ,
--- NOTE | 2017-12-11 09:14 | MRI_ITS ---
STUDY: MRI LUMBAR SPINE WITH AND WITHOUT CONTRAST REASON FOR EXAM: Female, 72 years old. Spinal stimulator implanted 11/15/17. Removed on 11/30/17 d/t infection. TECHNIQUE: Standardized fat and water weighted pulse sequences were obtained in the sagittal and axial planes. 8 ml of Gadavist contrast material was administered for the contrast portion of the examination. # of Images: 186 COMPARISON: None FINDINGS: T12-L1: Normal endplates. Normal disc height, hydration and morphology. Normal bilateral facet joints. Normal central canal and bilateral lateral recesses. Normal bilateral intervertebral neural foramina. Normal lumbar lordosis. There is no substantial scoliosis. Normal conus medullaris that terminates at the L1-2 level L1-2: Endplate spondylosis. Decreased disc height and small circumferential disc bulge. Degenerative changes of the bilateral facet joints. Mild narrowing of the central canal and bilateral intervertebral neural foramina. L2-3: Endplate spondylosis. 5 mm spondylolisthesis. Decreased disc height and moderate circumferential disc bulge. Degenerative changes of the bilateral facet joints. Severe narrowing of the central canal and bilateral intervertebral neural foramina. L3-4: Bilateral laminectomy. Degenerative changes of the bilateral facet joints. Moderate narrowing of the bilateral intervertebral neural foramina. L4-5: Bilateral laminectomy. Degenerative changes of the bilateral facet joints. Moderate narrowing of the bilateral intervertebral neural foramina. L5-S1: Bilateral laminectomy. Degenerative changes of the bilateral facet joints. Moderate narrowing of the bilateral intervertebral neural foramina. Normal visualized sacral ala. Fluid collection in the soft tissues posterior to the laminectomy site measures approximately 3.6 x 1.6 x 5.2 cm suggesting seroma. MRI/Spine Lumbar W/WO Contrast IMPRESSION: Multilevel degenerative changes, as described above. Severe spinal canal stenosis at L2-3. Electronically Signed: Ayan De La Fuente MD at 16:00 EDT Tel , Service support ,
[2017-12-11] MEDS: Enoxaparin 40 MG/0.4 ML Syringe SC (10:13)
[2017-12-11] MEDS: Lisinopril 10 MG Tablet PO (10:13)
[2017-12-11] MEDS: Fluticasone 0.05% 1 SPRAY NASAL.SRY 2 SPRAY NASAL (10:14)
--- NOTE | 2017-12-11 12:37 | PCM.PN.BLA ---
Progress Note Will plan for wet to dry BID at right posterior hip and mid back incisions, starting tomorrow. Morphine ordered for dressing changes. Dr. Boyd will be covering for the weekend.
[2017-12-11] MEDS: oxyCODONE 5 MG Tablet PO (13:12)
[2017-12-11] MEDS: 0.9% NaCl Peripheral Flush Adult/Peds IV (13:14)
--- NOTE | 2017-12-11 13:55 | PN.ID_ITS ---
Patient Problems: Active and Suspected Problems Cellulitis (Acute) Altered mental status, unspecified (Acute) Sepsis affecting skin (Acute) Acute encephalopathy (Acute) MRSA bacteremia (Acute) Subjective: Taken to OR this AM, pus drained from both incisions. No fever, feeling ok. - Physical Exam General: Alert, Cooperative, No apparent distress Lungs: Clear to auscultation, Normal air movement Cardiovascular: Regular rate, Regular Rhythm Abdomen: Soft, Non Tender, Non-Distended Skin: No rashes, Incision - bandaged s/p OR Vital Signs Temp Pulse Resp BP Pulse Ox 97.6 F L 74 16 130/61 H 96 12/11/17 10:07 12/11/17 12:14 12/11/17 12:14 12/11/17 10:07 12/11/17 10:07 Oxygen Flow Rate (L/min) 1 Oxygen Delivery Method Nasal Cannula Weight: 79.8 kg Body Mass Index (BMI) 32.1 Intake and Output for Last 24 Hours 12/09/17 12/10/17 12/11/17 23:59 23:59 23:59 Intake Total 1163 / 1163 1578 / 1578 1792 / 1792 Output Total 1275 / 1275 600 / 600 600 / 600 Balance -112 / -112 978 / 978 1192 / 1192 Microbiology Past 72 Hours 11/29/17 20:30 Bacteria Detection (PCR) - Final Blood Culture (Wb) - Anticubital Left Staphylococcus aureus mecA Resistance Marker Blood Culture - Final Meth. resistant Staph. aureus 12/06/17 08:44 Blood Culture - Final Blood Culture (Wb) - Left Hand Meth. resistant Staph. aureus 12/08/17 10:44 Blood Culture - Preliminary Blood Culture (Wb) - No Site/Description Given 12/09/17 10:06 Blood Culture - Preliminary Blood Culture (Wb) - Right Hand Meth. resistant Staph. aureus 12/05/17 13:10 Blood Culture - Final Blood Culture (Wb) - Left Hand Meth. resistant Staph. aureus 12/04/17 13:28 Blood Culture - Final Blood Culture (Wb) - Anticubital Left No growth in 5 days. 12/07/17 10:15 Blood Culture - Preliminary Blood Culture (Wb) - Right Hand No growth in 48 hours. Laboratory Tests Past 24 Hrs 12/11/17 12/11/17 12/11/17 06:08 06:08 06:08 WBC 9.7 RBC 2.78 L Hgb 7.4 L Hct 23.6 L MCV 84.9 MCH 26.6 L MCHC 31.4 L RDW 15.0 H RDW Differential 46.9 H Plt Count 489 H MPV 8.4 Sodium 136 Potassium 3.9 Chloride 104 Carbon Dioxide 25.0 Anion Gap 7 BUN 20 H Creatinine 0.55 Estim Creat Clear Calc 40.81 Est GFR (MDRD) Af Amer 139 Est GFR (MDRD) Non-Af 115 BUN/Creatinine Ratio 36.2 H Glucose 90 Calcium 7.6 L Total Creatine Kinase 26 Medical Necessity - Tobacco Use Smoking Status: Never smoker Route of nutrition/ use of supplements: [] Nutritional Intake: [] IV Site: [] Painting Catheter: [] - Assessment/Plan Antibiotics: [] Assessment/Plan: [] Active and Suspected Problems Cellulitis (Acute) Altered mental status, unspecified (Acute) Sepsis affecting skin (Acute) Acute encephalopathy (Acute) MRSA bacteremia - recent spine stimulator placement as source. Removal done 11/30 with heavy purulence at both surgical sites. CT showed no clear abscess, but there are sizeable areas of induration. 12/03 MOSES neg for veg. Midline removed 12/07. Bcx from 12/09 still (+) for MRSA. 12/03 changed to dapto for better bactericidal effect. CK is normal. MRSA was sens to dapto. Pending s end out testing for ceftaroline. Continues to be bacteremic on dapto but overall feeling better. Wbc now normal. Taken to OR 12/[address] Otoole for I&D of both incisions with heavy pus drained. MRI of spine pending. Will follow, d/w primary team and protective services case worker
--- NOTE | 2017-12-11 17:40 | PCM.PROGNOTE ---
Patient Problems: Active and Suspected Problems Cellulitis (Acute) Altered mental status, unspecified (Acute) Sepsis affecting skin (Acute) Acute encephalopathy (Acute) MRSA bacteremia (Acute) Subjective: Patient was seen and examined today, I talked at length with her daughter also who was in the room. Patient went to surgery this morning and had 2 areas incised and drained-1 on her mid back area and the other on her right buttocks area, both areas had copious purulent drainage. Patient has remained afebrile today and her white blood cell count is normal. Patient's blood culture from December 09 is positive for MRSA. I ordered a thoracic MRI and a lumbar MRI today at the request of Dr. Brown, the thoracic MRI was remarkable for changes at multiple levels either inflammatory or infectious in nature but no obvious abscess. The patient's MRI of her lumbar spine did not show inflammatory areas but did show an area of significant spinal stenosis at L2-L3. I had a discussion with Dr. Brown by phone this afternoon and he requested that the patient be transferred to a tertiary care facility for further evaluation, I talked with the patient's daughter and the patient, they requested the [facility] and I made contact with the clinic today- they were able to accept the patient but did not have a bed available at the present time. They felt that it was likely that they would have a bed available in the next 12-24 hours. I then went back and talked with the patient's daughter and the patient, they were okay with waiting until tomorrow to see if the patient could be transferred to the Clinic rather than try to transfer the patient to [facility]. In addition, I had asked the [facility] transfer line if there is a bed available at [facility] and there was not one available. At this time, patient is able to move both legs, she appears mentally alert but tired, she is not confused. - Physical Exam General: Alert, Oriented x3, Cooperative, No apparent distress, Well developed HEENT: Atraumatic, PERRLA, EOMI, Normocephalic Oral: Moist Mucosa Neck: Supple, No Nuchal Rigidity, Trachea Midline, Thyroid Normal Size and Texture Lungs: Clear to auscultation, Normal air movement, No rhonchi, No wheeze, No rales Cardiovascular: Regular rate, Regular Rhythm, Normal S1, Normal S2, No murmurs, No Ectopic Activity, PMI Normal, No rub noted, No Gallop Abdomen: Bowel Sounds Present, Soft, Non Tender, Non-Distended, No hernias noted Extremities: No edema, Capillary Refill Less than 3 Seconds Neurological: Cranial nerves II-XII grossly intact, Neuro grossly intact, Sensory exam intact to light touch and pain, Coordination normal Psych/Mental Status: Normal Affect, Appropriate, Alert and oriented to time, place, person, mood and affect Vital Signs Temp Pulse Resp BP Pulse Ox 97.6 F L 82 18 114/51 L 93 12/11/17 15:30 12/11/17 15:30 12/11/17 15:30 12/11/17 15:30 12/11/17 15:30 Oxygen Flow Rate (L/min) 1 Oxygen Delivery Method Room Air Weight: 79.8 kg Body Mass Index (BMI) 32.1 Intake and Output for Last 24 Hours 12/09/17 12/10/17 12/11/17 23:59 23:59 23:59 Intake Total 1163 / 1163 1578 / 1578 1792 / 1792 Output Total 1275 / 1275 600 / 600 600 / 600 Balance -112 / -112 978 / 978 1192 / 1192 Microbiology Past 72 Hours 11/29/17 20:30 Bacteria Detection (PCR) - Final Blood Culture (Wb) - Anticubital Left Staphylococcus aureus mecA Resistance Marker Blood Culture - Final Meth. resistant Staph. aureus 12/06/17 08:44 Blood Culture - Final Blood Culture (Wb) - Left Hand Meth. resistant Staph. aureus 12/08/17 10:44 Blood Culture - Preliminary Blood Culture (Wb) - No Site/Description Given 12/09/17 10:06 Blood Culture - Preliminary Blood Culture (Wb) - Right Hand Meth. resistant Staph. aureus 12/05/17 13:10 Blood Culture - Final Blood Culture (Wb) - Left Hand Meth. resistant Staph. aureus 12/04/17 13:28 Blood Culture - Final Blood Culture (Wb) - Anticubital Left No growth in 5 days. 12/07/17 10:15 Blood Culture - Preliminary Blood Culture (Wb) - Right Hand No growth in 48 hours. Laboratory Tests Past 24 Hrs 12/11/17 12/11/17 12/11/17 06:08 06:08 06:08 WBC 9.7 RBC 2.78 L Hgb 7.4 L Hct 23.6 L MCV 84.9 MCH 26.6 L MCHC 31.4 L RDW 15.0 H RDW Differential 46.9 H Plt Count 489 H MPV 8.4 Sodium 136 Potassium 3.9 Chloride 104 Carbon Dioxide 25.0 Anion Gap 7 BUN 20 H Creatinine 0.55 Estim Creat Clear Calc 40.81 Est GFR (MDRD) Af Amer 139 Est GFR (MDRD) Non-Af 115 BUN/Creatinine Ratio 36.2 H Glucose 90 Calcium 7.6 L Total Creatine Kinase 26 Medical Necessity - Tobacco Use Smoking Status: Never smoker Assessment/Plan All Active Problems Cellulitis (Acute) Altered mental status, unspecified (Acute) Sepsis affecting skin (Acute) Acute encephalopathy (Acute) MRSA bacteremia (Acute) Hip pain, right (Acute) Acute back pain (Acute) #1 MRSA bacteremia and sepsis secondary to infected pain pump-continue present antibiotic coverage per ID, we are awaiting transfer to [facility] for further treatment and evaluation by neurosurgery, family and the patient understand that this may be tomorrow before this occurs. 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 I think is more likely the patient just had fluid overload. Code Visit Inpatient E&M: 80868 Subs Hosp L2
--- NOTE | 2017-12-11 17:45 | PN_ITS ---
Patient Problems: Active and Suspected Problems Cellulitis (Acute) Altered mental status, unspecified (Acute) Sepsis affecting skin (Acute) Acute encephalopathy (Acute) MRSA bacteremia (Acute) Subjective: Patient was seen and examined today, I talked at length with her daughter also who was in the room. Patient went to surgery this morning and had 2 areas incised and drained-1 on her mid back area and the other on her right buttocks area, both areas had copious purulent drainage. Patient has remained afebrile today and her white blood cell count is normal. Patient's blood culture from December 09 is positive for MRSA. I ordered a thoracic MRI and a lumbar MRI today at the request of Dr. Brown, the thoracic MRI was remarkable for changes at multiple levels either inflammatory or infectious in nature but no obvious abscess. The patient's MRI of her lumbar spine did not show inflammatory areas but did show an area of significant spinal stenosis at L2-L3. I had a discussion with Dr. Brown by phone this afternoon and he requested that the patient be transferred to a tertiary care facility for further evaluation, I talked with the patient's daughter and the patient, they requested the [facility] and I made contact with the clinic today- they were able to accept the patient but did not have a bed available at the present time. They felt that it was likely that they would have a bed available in the next 12-24 hours. I then went back and talked with the patient's daughter and the patient, they were okay with waiting until tomorrow to see if the patient could be transferred to the Clinic rather than try to transfer the patient to [facility]. In addition, I had asked the [facility] transfer line if there is a bed available at [facility] and there was not one available. At this time, patient is able to move both legs, she appears mentally alert but tired, she is not confused. - Physical Exam General: Alert, Oriented x3, Cooperative, No apparent distress, Well developed HEENT: Atraumatic, PERRLA, EOMI, Normocephalic Oral: Moist Mucosa Neck: Supple, No Nuchal Rigidity, Trachea Midline, Thyroid Normal Size and Texture Lungs: Clear to auscultation, Normal air movement, No rhonchi, No wheeze, No rales Cardiovascular: Regular rate, Regular Rhythm, Normal S1, Normal S2, No murmurs, No Ectopic Activity, PMI Normal, No rub noted, No Gallop Abdomen: Bowel Sounds Present, Soft, Non Tender, Non-Distended, No hernias noted Extremities: No edema, Capillary Refill Less than 3 Seconds Neurological: Cranial nerves II-XII grossly intact, Neuro grossly intact, Sensory exam intact to light touch and pain, Coordination normal Psych/Mental Status: Normal Affect, Appropriate, Alert and oriented to time, place, person, mood and affect Vital Signs Temp Pulse Resp BP Pulse Ox 97.6 F L 82 18 114/51 L 93 12/11/17 15:30 12/11/17 15:30 12/11/17 15:30 12/11/17 15:30 12/11/17 15:30 Oxygen Flow Rate (L/min) 1 Oxygen Delivery Method Room Air Weight: 79.8 kg Body Mass Index (BMI) 32.1 Intake and Output for Last 24 Hours 12/09/17 12/10/17 12/11/17 23:59 23:59 23:59 Intake Total 1163 / 1163 1578 / 1578 1792 / 1792 Output Total 1275 / 1275 600 / 600 600 / 600 Balance -112 / -112 978 / 978 1192 / 1192 Microbiology Past 72 Hours 11/29/17 20:30 Bacteria Detection (PCR) - Final Blood Culture (Wb) - Anticubital Left Staphylococcus aureus mecA Resistance Marker Blood Culture - Final Meth. resistant Staph. aureus 12/06/17 08:44 Blood Culture - Final Blood Culture (Wb) - Left Hand Meth. resistant Staph. aureus 12/08/17 10:44 Blood Culture - Preliminary Blood Culture (Wb) - No Site/Description Given 12/09/17 10:06 Blood Culture - Preliminary Blood Culture (Wb) - Right Hand Meth. resistant Staph. aureus 12/05/17 13:10 Blood Culture - Final Blood Culture (Wb) - Left Hand Meth. resistant Staph. aureus 12/04/17 13:28 Blood Culture - Final Blood Culture (Wb) - Anticubital Left No growth in 5 days. 12/07/17 10:15 Blood Culture - Preliminary Blood Culture (Wb) - Right Hand No growth in 48 hours. Laboratory Tests Past 24 Hrs 12/11/17 12/11/17 12/11/17 06:08 06:08 06:08 WBC 9.7 RBC 2.78 L Hgb 7.4 L Hct 23.6 L MCV 84.9 MCH 26.6 L MCHC 31.4 L RDW 15.0 H RDW Differential 46.9 H Plt Count 489 H MPV 8.4 Sodium 136 Potassium 3.9 Chloride 104 Carbon Dioxide 25.0 Anion Gap 7 BUN 20 H Creatinine 0.55 Estim Creat Clear Calc 40.81 Est GFR (MDRD) Af Amer 139 Est GFR (MDRD) Non-Af 115 BUN/Creatinine Ratio 36.2 H Glucose 90 Calcium 7.6 L Total Creatine Kinase 26 Medical Necessity - Tobacco Use Smoking Status: Never smoker Assessment/Plan All Active Problems Cellulitis (Acute) Altered mental status, unspecified (Acute) Sepsis affecting skin (Acute) Acute encephalopathy (Acute) MRSA bacteremia (Acute) Hip pain, right (Acute) Acute back pain (Acute) #1 MRSA bacteremia and sepsis secondary to infected pain pump-continue present antibiotic coverage per ID, we are awaiting transfer to [facility] for further treatment and evaluation by neurosurgery, family and the patient understand that this may be tomorrow before this occurs. 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 I think is more likely the patient just had fluid overload. Code Visit Inpatient E&M: 38655 Subs Hosp L2
[2017-12-11] MEDS: Senna/Docusate Sodium 1 Tablet PO (22:51)
[2017-12-11] MEDS: Acetaminophen 325 MG Tablet 650 MG PO (22:51)
--- NOTE | 2017-12-13 09:40 | PCM.DC.SUM ---
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 #7 proteinuria #8 hypokalemia - Secondary Discharge Diagnosis Chronic Problems Chronic back pain (Chronic) Asthma (Chronic) HTN (hypertension) (Chronic) COPD (chronic obstructive pulmonary disease) (Chronic) Hospital Course and Treatment Consultations 12/03/17 06:52 Consult: Onc/Wound/accountant helper Routine Comment: wounds-right lower back/buttocks & mid back Operations: - - Removal of spinal cord stimulator 11/29/17, incision and debridement of abscessed wounds on 12/11/17 Procedures: 2-D Echocardiogram, - - Transesophageal echocardiogram Summary of Care Provided: The patient is a 72 year old F seen in the emergency room at [facility] with a chief complaint of confusion and redness in her lower back area. Patient had a spinal cord stimulator inserted in October 2017. Workup in the emergency room included a CT scan of the brain which did not show any acute process, chest x-ray did not show any active infiltrate, CBC showed a mild anemia with hemoglobin of 9.8. CMP showed a potassium of 3.1, BUN was slightly elevated at 28. Urinalysis was carried out and did not show any urinary tract infection. Examination in the emergency room showed a reddened area over the patient's mid back area that was tender to palpation, there was also a second area near the right upper buttocks there was also reddened. It was felt that the patient had cellulitis and altered mental status-the etiology of this was unknown. Patient was admitted to [place] [address], she was placed on IV fluids and IV antibiotics, she was seen by pain management -who had placed her spinal cord stimulator -on 11/30/17, it was felt necessary to remove the spinal cord stimulator, this was done on that date and cultures were obtained which were positive for MRSA. Patient's mental status improved with IV antibiotics and her encephalopathy was felt to be secondary to metabolic reasons-her serious infection and sepsis. Patient was seen in consultation by infectious diseases and it was also noted that the patient had protein in her urine and was seen by nephrology. Patient was also seen by PT and OT. During her hospital stay, patient had several blood cultures obtained which were all positive for MRSA, she had a MOSES performed which showed no evidence of vegetation in the heart. Due to her persistent positive blood cultures, patient was taken to surgery on 12/11/17 and 2 areas were debrided and flushed on her mid back area and her right upper buttocks area, copious amounts of pus was obtained from both sites. An MRI of the patient's thoracic and lumbar spine was obtained on that same date, the thoracic spine MRI indicated either an infectious or inflammatory process in the epidural area of the thoracic spine and multiple levels, MRI of the lumbar spine showed evidence of degenerative joint disease but no evidence of any inflammation or infectious process. It was felt prudent that the patient be transferred to tertiary care facility for evaluation by neurosurgery, [facility] in [place] was contacted and accepted the patient. Patient was transferred to [facility] on 12/12/17. Physical exam: On examination she appeared in good health and spirits. Vital signs as documented. Skin warm and dry and without overt rashes. Neck without JVD. Lungs clear. Heart exam notable for regular rhythm, normal sounds and absence of murmurs, rubs or gallops. Abdomen unremarkable and without evidence of organomegaly, masses, or abdominal aortic enlargement. Extremities nonedematous. Neuro: Cranial nerves II through XII are intact, there were no focal motor deficits noted. Psych: Patient was alert and oriented x3, she was appropriate, she did not appear anxious, she had a flat affect. On 12/12/17, patient was transferred to [facility] in stable condition - Physical Exam Vital Signs Temp Pulse Resp BP Pulse Ox 97.9 F 83 16 123/61 H 92 12/11/17 21:11 12/11/17 21:11 12/11/17 21:11 12/11/17 21:11 12/11/17 21:11 Oxygen Flow Rate (L/min) 1 Oxygen Delivery Method Room Air Weight: 79.8 kg Body Mass Index (BMI) 32.1 Intake and Output for Last 24 Hours 12/11/17 12/12/17 12/13/17 23:59 23:59 23:59 Intake Total 2152 / 2152 Output Total 600 / 600 Balance 1552 / 1552 Microbiology Past 72 Hours 12/11/17 08:34 Gram Stain - Final Tissue - Hip Wound Culture - Final Meth. resistant Staph. aureus 12/11/17 08:34 Gram Stain - Final Wound Abcess - Back Wound Culture - Final Meth. resistant Staph. aureus 12/11/17 08:34 Gram Stain - Final Wound Abcess - Hip Wound Culture - Final Meth. resistant Staph. aureus 12/07/17 10:15 Blood Culture - Final Blood Culture (Wb) - Right Hand No growth in 5 days. 12/10/17 10:39 Blood Culture - Preliminary Blood Culture (Wb) - Right Hand No growth in 48 hours. 12/08/17 10:44 Blood Culture - Final Blood Culture (Wb) - No Site/Description Given Staphylococcus aureus 11/29/17 20:30 Bacteria Detection (PCR) - Final Blood Culture (Wb) - Anticubital Left Staphylococcus aureus mecA Resistance Marker Blood Culture - Final Meth. resistant Staph. aureus 12/06/17 08:44 Blood Culture - Final Blood Culture (Wb) - Left Hand Meth. resistant Staph. aureus 12/09/17 10:06 Blood Culture - Preliminary Blood Culture (Wb) - Right Hand Meth. resistant Staph. aureus 12/05/17 13:10 Blood Culture - Final Blood Culture (Wb) - Left Hand Meth. resistant Staph. aureus Home Medications: Medications to take at Discharge Fluticasone/Salmeterol [Advair 250/50 Mcg Diskus] 1 puff INHALATION DAILY PRN 09/28/15 Lisinopril/Hydrochlorothiazide [Zestoretic 12/04.5 Tablet] 1 tablet PO DAILY 01/14/16 Acetaminophen [Tylenol Tablet] 650 mg PO Q6 PRN 03/24/17 Senna/Docusate Sodium [Senokot-S] 1 tablet PO DAILY 11/10/17 Amox/Clavulanate Tablet [Augmentin Tablet] 875 mg PO Q12H #20 tablet 11/28/17 Ondansetron [Zofran Odt] 8 mg PO Q8H PRN PRN #10 tab 11/28/17 Potassium Cloride Effervescent [Potassium Chl 25 Meq Eff (For Liquid)] 25 meq PO DAILY #7 tablet.eff 11/28/17 DAPTOmycin [Cubicin] 650 mg IV Q24 #25 vial 12/10/17 Following Prescrptions Were Given to Patient: DAPTOmycin [Cubicin] 650 mg IV Q24 #25 vial Primary Care Physician: Ellie Daigle MD [Primary Care Provider] - Patient Instructions: Daptomycin Solution for injection Disposition: Acute care Hospital Minutes spent on discharge:: 32 Patient Condition:: Stable Medical Necessity - Tobacco Use Smoking Status: Never smoker Meaningful Use Info Meaningful Use Diagnoses (Choose all that apply): None applicable Code Visit Inpatient E&M: 14337 Disch Hosp
--- NOTE | 2017-12-13 09:52 | DS.PCM_ITS ---
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 #7 proteinuria #8 hypokalemia - Secondary Discharge Diagnosis Chronic Problems Chronic back pain (Chronic) Asthma (Chronic) HTN (hypertension) (Chronic) COPD (chronic obstructive pulmonary disease) (Chronic) Hospital Course and Treatment Consultations 12/03/17 06:52 Consult: Onc/Wound/digital commentator Routine Comment: wounds-right lower back/buttocks & mid back Operations: - - Removal of spinal cord stimulator 11/29/17, incision and debridement of abscessed wounds on 12/11/17 Procedures: 2-D Echocardiogram, - - Transesophageal echocardiogram Summary of Care Provided: The patient is a 72 year old F seen in the emergency room at [facility] with a chief complaint of confusion and redness in her lower back area. Patient had a spinal cord stimulator inserted in October 2017. Workup in the emergency room included a CT scan of the brain which did not show any acute process, chest x-ray did not show any active infiltrate, CBC showed a mild anemia with hemoglobin of 9.8. CMP showed a potassium of 3.1, BUN was slightly elevated at 28. Urinalysis was carried out and did not show any urinary tract infection. Examination in the emergency room showed a reddened area over the patient's mid back area that was tender to palpation, there was also a second area near the right upper buttocks there was also reddened. It was felt that the patient had cellulitis and altered mental status-the etiology of this was unknown. Patient was admitted to [place] [id number], she was placed on IV fluids and IV antibiotics, she was seen by pain management -who had placed her spinal cord stimulator -on 11/30/17, it was felt necessary to remove the spinal cord stimulator, this was done on that date and cultures were obtained which were positive for MRSA. Patient's mental status improved with IV antibiotics and her encephalopathy was felt to be secondary to metabolic reasons-her serious infection and sepsis. Patient was seen in consultation by infectious diseases and it was also noted that the patient had protein in her urine and was seen by nephrology. Patient was also seen by PT and OT. During her hospital stay, patient had several blood cultures obtained which were all positive for MRSA, she had a MOSES performed which showed no evidence of vegetation in the heart. Due to her persistent positive blood cultures, patient was taken to surgery on 12/11/17 and 2 areas were debrided and flushed on her mid back area and her right upper buttocks area, copious amounts of pus was obtained from both sites. An MRI of the patient's thoracic and lumbar spine was obtained on that same date, the thoracic spine MRI indicated either an infectious or inflammatory process in the epidural area of the thoracic spine and multiple levels, MRI of the lumbar spine showed evidence of degenerative joint disease but no evidence of any inflammation or infectious process. It was felt prudent that the patient be transferred to tertiary care facility for evaluation by neurosurgery, [facility] in [place] was contacted and accepted the patient. Patient was transferred to [facility] on 12/12/17. Physical exam: On examination she appeared in good health and spirits. Vital signs as documented. Skin warm and dry and without overt rashes. Neck without JVD. Lungs clear. Heart exam notable for regular rhythm, normal sounds and absence of murmurs, rubs or gallops. Abdomen unremarkable and without evidence of organomegaly, masses, or abdominal aortic enlargement. Extremities nonedematous. Neuro: Cranial nerves II through XII are intact, there were no focal motor deficits noted. Psych: Patient was alert and oriented x3, she was appropriate, she did not appear anxious, she had a flat affect. On 12/12/17, patient was transferred to [facility] in stable condition - Physical Exam Vital Signs Temp Pulse Resp BP Pulse Ox 97.9 F 83 16 123/61 H 92 12/11/17 21:11 12/11/17 21:11 12/11/17 21:11 12/11/17 21:11 12/11/17 21:11 Oxygen Flow Rate (L/min) 1 Oxygen Delivery Method Room Air Weight: 79.8 kg Body Mass Index (BMI) 32.1 Intake and Output for Last 24 Hours 12/11/17 12/12/17 12/13/17 23:59 23:59 23:59 Intake Total 2152 / 2152 Output Total 600 / 600 Balance 1552 / 1552 Microbiology Past 72 Hours 12/11/17 08:34 Gram Stain - Final Tissue - Hip Wound Culture - Final Meth. resistant Staph. aureus 12/11/17 08:34 Gram Stain - Final Wound Abcess - Back Wound Culture - Final Meth. resistant Staph. aureus 12/11/17 08:34 Gram Stain - Final Wound Abcess - Hip Wound Culture - Final Meth. resistant Staph. aureus 12/07/17 10:15 Blood Culture - Final Blood Culture (Wb) - Right Hand No growth in 5 days. 12/10/17 10:39 Blood Culture - Preliminary Blood Culture (Wb) - Right Hand No growth in 48 hours. 12/08/17 10:44 Blood Culture - Final Blood Culture (Wb) - No Site/Description Given Staphylococcus aureus 11/29/17 20:30 Bacteria Detection (PCR) - Final Blood Culture (Wb) - Anticubital Left Staphylococcus aureus mecA Resistance Marker Blood Culture - Final Meth. resistant Staph. aureus 12/06/17 08:44 Blood Culture - Final Blood Culture (Wb) - Left Hand Meth. resistant Staph. aureus 12/09/17 10:06 Blood Culture - Preliminary Blood Culture (Wb) - Right Hand Meth. resistant Staph. aureus 12/05/17 13:10 Blood Culture - Final Blood Culture (Wb) - Left Hand Meth. resistant Staph. aureus Home Medications: Medications to take at Discharge Fluticasone/Salmeterol [Advair 250/50 Mcg Diskus] 1 puff INHALATION DAILY PRN 09/28/15 Lisinopril/Hydrochlorothiazide [Zestoretic 12/04.5 Tablet] 1 tablet PO DAILY 01/14/16 Acetaminophen [Tylenol Tablet] 650 mg PO Q6 PRN 03/24/17 Senna/Docusate Sodium [Senokot-S] 1 tablet PO DAILY 11/10/17 Amox/Clavulanate Tablet [Augmentin Tablet] 875 mg PO Q12H #20 tablet 11/28/17 Ondansetron [Zofran Odt] 8 mg PO Q8H PRN PRN #10 tab 11/28/17 Potassium Cloride Effervescent [Potassium Chl 25 Meq Eff (For Liquid)] 25 meq PO DAILY #7 tablet.eff 11/28/17 DAPTOmycin [Cubicin] 650 mg IV Q24 #25 vial 12/10/17 Following Prescrptions Were Given to Patient: DAPTOmycin [Cubicin] 650 mg IV Q24 #25 vial Primary Care Physician: Ellie Daigel MD [Primary Care Provider] - Patient Instructions: Daptomycin Solution for injection Disposition: Acute care Hospital Minutes spent on discharge:: 32 Patient Condition:: Stable Medical Necessity - Tobacco Use Smoking Status: Never smoker Meaningful Use Info Meaningful Use Diagnoses (Choose all that apply): None applicable Code Visit Inpatient E&M: 81408 Disch Hosp
[2017-12-14 11:49] LABS: Pathologist Review Reviewed
== END 2017-12-12 00:25 | disposition short-term general hospital (02) | DRG 28 ==
LOC: ED 19:14 → MS3 23:40
PROVIDERS: Anesthesiology; Anesthesiology Pain Medicine; Internal Medicine; Internal Medicine Infectious Disease; Internal Medicine Nephrology; Surgery; Admitting Provider Hospitalist; Emergency Provider Emergency Medicine; Family Provider Internal Medicine; PCP Internal Medicine; Referring Provider Hospitalist; Visit Provider Internal Medicine
PROC: 0JPT0MZ Removal of Stimulator Generator from Trunk Subcutaneous Tissue and Fascia, Open Approach (ICD-10-PCS; CPT 63685; principal; 2017-11-30 09:10)
PROC: 0JD70ZZ Extraction of Back Subcutaneous Tissue and Fascia, Open Approach (ICD-10-PCS; principal; 2017-12-11 07:15)
DX: T85.734A Infection and inflammatory reaction due to implanted electronic neurostimulator, generator, initial encounter (principal); A41.02 Sepsis due to Methicillin resistant Staphylococcus aureus; G93.41 Metabolic encephalopathy; I50.31 Acute diastolic (congestive) heart failure; G93.49 Other encephalopathy; L02.212 Cutaneous abscess of back [any part, except buttock and flank]; L02.415 Cutaneous abscess of right lower limb; T85.733A Infection and inflammatory reaction due to implanted electronic neurostimulator of spinal cord, electrode (lead), initial encounter; I10 Essential (primary) hypertension; M47.896 Other spondylosis, lumbar region; E87.6 Hypokalemia; G89.29 Other chronic pain; M54.9 Dorsalgia, unspecified; R80.9 Proteinuria, unspecified
CPT/HCPCS: 36415; 70450; 70553; 71045; 72157; 72158; 74018; 74176; 76000; 76770; 76882; 80048; 80053; 80076; 80202; 81001; 82550; 82570; 82784; 83605; 83735; 84156; 84165; 85025; 85027; 85610; 85730; 86038; 86140; 86225; 86235; 86334; 86335; 87040; 87070; 87075; 87077; 87086; 87149; 87186; 87205; 87640; 93005; 93306; 93312; 93320; 93325; 94640; 96361; 96374; 96375; 97110; 97162; 97165; 97530; 97535; 97802; 99285; A9585; J0878; J7030; J7040; J7050; J7120; A4216; J1940; J2405; J3490

== ENCOUNTER 2017-12-24 12:17 | Inpatient (IN) | payer MEDICARE, SELFPAY ==
[2017-12-24 12:25] VITALS: BP 146/86; PULSE 92; RESP 18; TEMP 37; O2SAT 97
[2017-12-24 14:00] VITALS: BMI 29.7; BMI 29.8
--- NOTE | 2017-12-24 14:34 | PCM.RX.CS ---
Consult Pharmacy has been consulted to manage selected antiobiotic: Vancomycin Type of Consult: Follow-up Suspected Infection: Bacteremia Prior Doses of Antibiotics Received/Current Regimen: VANCOMYCIN 1G IV Q12HRS: LAST DOSE 12/24/17 @0800 PER PAPERWORK FROM [facility] Goal Trough: 15-20 mcg/mL Pharmacy Plan for Drug Dosing: Pharmacy consulted to aide in vancomycin management per ID. The patient was transferred to TCU from [facility], for which she was being treated with vancomycin. Pharmacy called to the floor, and there was no vancomycin trough levels or BMP available in the transfer paperwork per nursing. At [facility], the patient was getting vancomycin 1000mg IV Q12hrs. Since we have no baseline information, will obtain a random trough prior to the next originally planned dose, as well as a BMP to establish renal function. The patient was previously admitted to [facility] earlier in November prior to transfer to [facility]. At that time, she was on 750mg IV Q12hrs (which resulted in a low trough), then increased to 1250mg IV Q12hrs, but was changed to daptomycin IV before another trough was drawn. Will obtain baseline information and adjust dose accordingly. PLAN/RECOMMENDATIONS 1. Random vancomycin level ordered for 12/24/17 @1999 to obtain baseline trough 2. BMP ordered for 12/24/17 @1999 to establish renal function 3. If trough is within therapeutic range, would recommend to resume the vancomycin 1000mg IV Q12hrs the patient was getting previously at [facility] 4. Pharmacy Service will continue to monitor and adjust dosing as required.
--- NOTE | 2017-12-24 14:40 | PHA.PHARE_ITS ---
Consult Pharmacy has been consulted to manage selected antiobiotic: Vancomycin Type of Consult: Follow-up Suspected Infection: Bacteremia Prior Doses of Antibiotics Received/Current Regimen: VANCOMYCIN 1G IV Q12HRS: LAST DOSE 12/24/17 @0800 PER PAPERWORK FROM [facility] Goal Trough: 15-20 mcg/mL Pharmacy Plan for Drug Dosing: Pharmacy consulted to aide in vancomycin management per ID. The patient was transferred to TCU from [facility], for which she was being treated with vancomycin. Pharmacy called to the floor, and there was no vancomycin trough levels or BMP available in the transfer paperwork per nursing. At [facility], the patient was getting vancomycin 1000mg IV Q12hrs. Since we have no baseline information, will obtain a random trough prior to the next originally planned dose, as well as a BMP to establish renal function. The patient was previously admitted to [facility] earlier in November prior to transfer to [facility]. At that time, she was on 750mg IV Q12hrs (which resulted in a low trough), then increased to 1250mg IV Q12hrs, but was changed to daptomycin IV before another trough was drawn. Will obtain baseline information and adjust dose accordingly. PLAN/RECOMMENDATIONS 1. Random vancomycin level ordered for 12/24/17 @1999 to obtain baseline trough 2. BMP ordered for 12/24/17 @1999 to establish renal function 3. If trough is within therapeutic range, would recommend to resume the vancomycin 1000mg IV Q12hrs the patient was getting previously at [facility] 4. Pharmacy Service will continue to monitor and adjust dosing as required.
--- NOTE | 2017-12-24 15:10 | NURSING ---
wound photo: right mid back
--- NOTE | 2017-12-24 15:11 | NURSING ---
wound photo: upper right buttock
[2017-12-24] MEDS: Senna/Docusate Sodium 1 Tablet 2 TABLET PO (16:36)
[2017-12-24 20:59] LABS: Anion Gap 7 (5-15); BUN 19 mg/dL (7-18); BUN/Creat Ratio 28.5 RATIO (10-20); Calcium,Total 8.5 mg/dL (8.5-10.1); Chloride 102 mmol/L (98-107); Creatinine, Serum 0.67 mg/dL (0.55-1.02); EST Glomerular Filtration Rate 93 mL/min (>60); Est Glom Filt Rate - Afr Amer 112 mL/min (>60); Estimated Creatinine Clearance 42.68 ml/min; Glucose 91 mg/dL (74-106); Potassium 4.1 mmol/L (3.5-5.1); Sodium Level 134 mmol/L (136-145)
[2017-12-24 21:00] LABS: Vancomycin, Random Level 23.2 ug/mL (0.0-15.0)
--- NOTE | 2017-12-24 21:13 | PCM.HP.STD ---
Problem List (1) Cellulitis Status: Acute (2) Altered mental status, unspecified Status: Acute (3) Sepsis affecting skin Status: Acute (4) Acute encephalopathy Status: Acute (5) MRSA bacteremia Status: Acute (6) Hip pain, right Status: Acute (7) Chronic back pain Status: Chronic Qualifiers: (8) HTN (hypertension) Status: Chronic Qualifiers: (9) COPD (chronic obstructive pulmonary disease) Status: Chronic Qualifiers: History of Present Illness Date of Admission: 12/24/17 Chief Complaint: Here for rehabilitation, strengthening, intravenous antibiotics, wound care, prior to discharge home with spouse. The patient is a 72 year old Female with below past medical history admitted to [facility] 11/29/2017 with sepsis from implantable spinal cord stimulator. Patient diagnosed with MRSA bacteremia from infected spinal cord stimulator. Patient treated with intravenous antibiotics. Spinal cord stimulator removed by pain management. Cultures positive MRSA. All blood cultures positive MRSA, MOSES negative for vegetation. 12/11/2017 Right mid back, right upper buttock debrided surgically. MRI showed possible infection epidural space thoracic spine, needs neurosurgical consultation. 12/12/2017 Transferred to [facility] for further care. 12/12/2017 Right ankle ulcer, bacteremia. 12/13/2017 Blood cultures grew enterococcus treated with Vancomycin. 12/15/2017 Wound vac applied. 12/16/2017 Blood culture negative. 12/19/2017 PICC line inserted. 12/21/2017 Low grade fever, blood cultures negative, all cultures negative. 12/24/2017 Admit to TCU with debility, here for rehabilitation, strengthening, intravenous antibiotics, wound care prior to discharge home with spouse. Patient has had sepsis x 6. Past Medical History Past Medical History (Chronic Problems): Chronic Problems Chronic back pain (Chronic) Asthma (Chronic) HTN (hypertension) (Chronic) COPD (chronic obstructive pulmonary disease) (Chronic) Allergies No Known Allergies Allergy (Verified 11/29/17 18:30) Home Medications: Ambulatory Orders Medication Instructions Recorded Fluticasone/Salmeterol [Advair 1 puff INHALATION DAILY 09/28/15 250/50 Mcg Diskus] Lisinopril/Hydrochlorothiazide 1 tablet PO DAILY 01/14/16 [Zestoretic 10/12.5 Tablet] Acetaminophen [Tylenol Tablet] 650 mg PO Q6 PRN 03/24/17 Senna/Docusate Sodium [Senokot-S] 1 tablet PO DAILY 11/10/17 Ondansetron [Zofran Odt] 8 mg PO Q8H PRN PRN #10 tab 11/28/17 Benzocaine/Menthol [Cepacol Sore 1 ea PO Q2H PRN PRN 12/24/17 Throat Lozenge] Melatonin 6 mg PO QHS 12/24/17 Oxycodone [Oxyir] 5 - 10 mg PO Q6H PRN PRN 12/24/17 Polyethylene Glycol 3350 [Miralax] 17 gm PO DAILY 12/24/17 Vancomycin/0.9 % Sod Chloride 1 gm IV Q12H 12/24/17 [Vancomycin 1 G/200Ml-0.9% NaCl] Surgical History: appendectomy, cholecystectomy, herniorrhaphy, hysterectomy, total hip arthroplasty - Bilateral., total knee arthroplasty - Left., - - right knee arthroscopic surgery, left shoulder rotator cuff tear intervention, left knee arthroscopic surgery, right knee replacement, back surgery. 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 Lives: Spouse/ Significant Other Smoking Status: Never smoker Tobacco Use: Non-smoker Alcohol: None Drugs: None - *Family History Maternal History Items: COPD Paternal History Items: COPD, Heart Disease, Hypertension Review of Systems Constitutional: Denies: Chills, Fever, Weight Change HEENT: Denies: Head Aches, Sinus Congestion, Sinus Drainage Cardiovascular: Denies: Chest Pain, Palpitations Respiratory: Denies: Cough, Shortness of breath at rest, Sputum production Gastrointestinal: Denies: Abdominal Pain, Nausea, Vomiting Genitourinary: Denies: Dysuria Musculoskeletal: Denies: Joint Pain, Joint Tenderness Skin: Denies: Rash, Wounds Neurological: Denies: Numbness, Tingling, Focal weakness Psychiatric: Denies: Anxiety, Depression, Homicidal Ideations, Suicidal Ideations Hematologic/ Lymphatic: Denies: Easy Bruising, Easy Bleeding VTE Information - Inpt Only VTE Present on Admission: No VTE Mechan Device Prophylaxis: Knee High ANOOP Hose VTE Pharm Prophylaxis ordered?: Yes - Physical Exam General: Alert, Oriented x3, Cooperative HEENT: Atraumatic, PERRLA, EOMI, Normocephalic Neck: Supple, No JVD, Negative Carotid Bruits Lungs: Clear to auscultation, Normal air movement Cardiovascular: Regular rate, No murmurs Abdomen: Bowel Sounds Present, Soft, Non Tender Extremities: No edema, Capillary Refill Less than 3 Seconds, - - Right upper extremity PICC line. Skin: No rashes, No breakdown, - - Wound right lateral chest, right upper buttock, wound vac. Musculoskeletal: No Tenderness to Palpation of Joints or Extremities Neurological: Cranial nerves II-XII grossly intact Psych/Mental Status: Normal Affect, Appropriate Vital Signs Temp Pulse Resp BP Pulse Ox 98.6 F 92 18 146/86 H 97 12/24/17 12:25 12/24/17 12:25 12/24/17 12:25 12/24/17 12:25 12/24/17 12:25 Oxygen Delivery Method Room Air Weight: 76.2 kg Body Mass Index (BMI) 29.7 Intake and Output for Last 24 Hours 12/22/17 12/23/17 12/24/17 23:59 23:59 23:59 Intake Total 420 / 420 Balance 420 / 420 Laboratory Tests Past 24 Hrs 12/24/17 12/24/17 20:25 20:25 Sodium 134 L Potassium 4.1 Chloride 102 Carbon Dioxide 25.0 Anion Gap 7 BUN 19 H Creatinine 0.67 Estim Creat Clear Calc 42.68 Est GFR (MDRD) Af Amer 112 Est GFR (MDRD) Non-Af 93 BUN/Creatinine Ratio 28.5 H Glucose 91 Calcium 8.5 Random Vancomycin 23.2 H Assessment/Plan All Active Problems Cellulitis (Acute) Altered mental status, unspecified (Acute) Sepsis affecting skin (Acute) Acute encephalopathy (Acute) MRSA bacteremia (Acute) Hip pain, right (Acute) Acute back pain (Acute) 72 year old female with below past medical history hospitalized for MRSA bacteremia secondary to implantable spinal cord stimulator, now removed, requiring debridement, admitted to TCU with debility, here for rehabilitation, strengthening, intravenous antibiotics, wound care, prior to discharge home with spouse. Debility - PT/OT. Pain - Tylenol 1000MG Q6H PRN mild pain, Oxycodone 5-10MG Q6H PRN moderate pain. Bowel - Miralax 17GM daily, Senna/colace 2 tablets BID, Dulcolax 10MG PO daily PRN. Pneumonia vaccination - Administer Prevnar 13 and/or Pneumovax 23 as necessary. DVT prophylaxis - Lovenox 30MG SC daily. Sore throat - Cepacol 1 lozenge Q2H PRN. COPD - Advair 232-14 1 puff daily. Hypertension - Lisinopril 10MG daily, HCTZ 12.5MG daily. Insomnia - Melatonin 6MG QHS. Nausea - Zofran 8MG Q8H PRN. MRSA/Enterococcus bacteremia - Vancomycin IV, followed by Dr. Pandey.
--- NOTE | 2017-12-24 21:20 | HP.PCM_ITS ---
Problem List (1) Cellulitis Status: Acute (2) Altered mental status, unspecified Status: Acute (3) Sepsis affecting skin Status: Acute (4) Acute encephalopathy Status: Acute (5) MRSA bacteremia Status: Acute (6) Hip pain, right Status: Acute (7) Chronic back pain Status: Chronic Qualifiers: (8) HTN (hypertension) Status: Chronic Qualifiers: (9) COPD (chronic obstructive pulmonary disease) Status: Chronic Qualifiers: History of Present Illness Date of Admission: 12/24/17 Chief Complaint: Here for rehabilitation, strengthening, intravenous antibiotics, wound care, prior to discharge home with spouse. The patient is a 72 year old Female with below past medical history admitted to [facility] 11/29/2017 with sepsis from implantable spinal cord stimulator. Patient diagnosed with MRSA bacteremia from infected spinal cord stimulator. Patient treated with intravenous antibiotics. Spinal cord stimulator removed by pain management. Cultures positive MRSA. All blood cultures positive MRSA, MOSES negative for vegetation. 12/11/2017 Right mid back, right upper buttock debrided surgically. MRI showed possible infection epidural space thoracic spine, needs neurosurgical consultation. 12/12/2017 Transferred to [facility] for further care. 12/12/2017 Right ankle ulcer, bacteremia. 12/13/2017 Blood cultures grew enterococcus treated with Vancomycin. 12/15/2017 Wound vac applied. 12/16/2017 Blood culture negative. 12/19/2017 PICC line inserted. 12/21/2017 Low grade fever, blood cultures negative, all cultures negative. 12/24/2017 Admit to TCU with debility, here for rehabilitation, strengthening, intravenous antibiotics, wound care prior to discharge home with spouse. Patient has had sepsis x 6. Past Medical History Past Medical History (Chronic Problems): Chronic Problems Chronic back pain (Chronic) Asthma (Chronic) HTN (hypertension) (Chronic) COPD (chronic obstructive pulmonary disease) (Chronic) Allergies No Known Allergies Allergy (Verified 11/29/17 18:30) Home Medications: Ambulatory Orders Medication Instructions Recorded Fluticasone/Salmeterol [Advair 1 puff INHALATION DAILY 09/28/15 250/50 Mcg Diskus] Lisinopril/Hydrochlorothiazide 1 tablet PO DAILY 01/14/16 [Zestoretic 10/12.5 Tablet] Acetaminophen [Tylenol Tablet] 650 mg PO Q6 PRN 03/24/17 Senna/Docusate Sodium [Senokot-S] 1 tablet PO DAILY 11/10/17 Ondansetron [Zofran Odt] 8 mg PO Q8H PRN PRN #10 tab 11/28/17 Benzocaine/Menthol [Cepacol Sore 1 ea PO Q2H PRN PRN 12/24/17 Throat Lozenge] Melatonin 6 mg PO QHS 12/24/17 Oxycodone [Oxyir] 5 - 10 mg PO Q6H PRN PRN 12/24/17 Polyethylene Glycol 3350 [Miralax] 17 gm PO DAILY 12/24/17 Vancomycin/0.9 % Sod Chloride 1 gm IV Q12H 12/24/17 [Vancomycin 1 G/200Ml-0.9% NaCl] Surgical History: appendectomy, cholecystectomy, herniorrhaphy, hysterectomy, total hip arthroplasty - Bilateral., total knee arthroplasty - Left., - - right knee arthroscopic surgery, left shoulder rotator cuff tear intervention, left knee arthroscopic surgery, right knee replacement, back surgery. 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 Lives: Spouse/ Significant Other Smoking Status: Never smoker Tobacco Use: Non-smoker Alcohol: None Drugs: None - *Family History Maternal History Items: COPD Paternal History Items: COPD, Heart Disease, Hypertension Review of Systems Constitutional: Denies: Chills, Fever, Weight Change HEENT: Denies: Head Aches, Sinus Congestion, Sinus Drainage Cardiovascular: Denies: Chest Pain, Palpitations Respiratory: Denies: Cough, Shortness of breath at rest, Sputum production Gastrointestinal: Denies: Abdominal Pain, Nausea, Vomiting Genitourinary: Denies: Dysuria Musculoskeletal: Denies: Joint Pain, Joint Tenderness Skin: Denies: Rash, Wounds Neurological: Denies: Numbness, Tingling, Focal weakness Psychiatric: Denies: Anxiety, Depression, Homicidal Ideations, Suicidal Ideations Hematologic/ Lymphatic: Denies: Easy Bruising, Easy Bleeding VTE Information - Inpt Only VTE Present on Admission: No VTE Mechan Device Prophylaxis: Knee High ANOOP Hose VTE Pharm Prophylaxis ordered?: Yes - Physical Exam General: Alert, Oriented x3, Cooperative HEENT: Atraumatic, PERRLA, EOMI, Normocephalic Neck: Supple, No JVD, Negative Carotid Bruits Lungs: Clear to auscultation, Normal air movement Cardiovascular: Regular rate, No murmurs Abdomen: Bowel Sounds Present, Soft, Non Tender Extremities: No edema, Capillary Refill Less than 3 Seconds, - - Right upper extremity PICC line. Skin: No rashes, No breakdown, - - Wound right lateral chest, right upper buttock, wound vac. Musculoskeletal: No Tenderness to Palpation of Joints or Extremities Neurological: Cranial nerves II-XII grossly intact Psych/Mental Status: Normal Affect, Appropriate Vital Signs Temp Pulse Resp BP Pulse Ox 98.6 F 92 18 146/86 H 97 12/24/17 12:25 12/24/17 12:25 12/24/17 12:25 12/24/17 12:25 12/24/17 12:25 Oxygen Delivery Method Room Air Weight: 76.2 kg Body Mass Index (BMI) 29.7 Intake and Output for Last 24 Hours 12/22/17 12/23/17 12/24/17 23:59 23:59 23:59 Intake Total 420 / 420 Balance 420 / 420 Laboratory Tests Past 24 Hrs 12/24/17 12/24/17 20:25 20:25 Sodium 134 L Potassium 4.1 Chloride 102 Carbon Dioxide 25.0 Anion Gap 7 BUN 19 H Creatinine 0.67 Estim Creat Clear Calc 42.68 Est GFR (MDRD) Af Amer 112 Est GFR (MDRD) Non-Af 93 BUN/Creatinine Ratio 28.5 H Glucose 91 Calcium 8.5 Random Vancomycin 23.2 H Assessment/Plan All Active Problems Cellulitis (Acute) Altered mental status, unspecified (Acute) Sepsis affecting skin (Acute) Acute encephalopathy (Acute) MRSA bacteremia (Acute) Hip pain, right (Acute) Acute back pain (Acute) 72 year old female with below past medical history hospitalized for MRSA bacteremia secondary to implantable spinal cord stimulator, now removed, requiring debridement, admitted to TCU with debility, here for rehabilitation, strengthening, intravenous antibiotics, wound care, prior to discharge home with spouse. * Debility - PT/OT. * Pain - Tylenol 1000MG Q6H PRN mild pain, Oxycodone 5-10MG Q6H PRN moderate pain. * Bowel - Miralax 17GM daily, Senna/colace 2 tablets BID, Dulcolax 10MG PO daily PRN. * Pneumonia vaccination - Administer Prevnar 13 and/or Pneumovax 23 as necessary. * DVT prophylaxis - Lovenox 30MG SC daily. * Sore throat - Cepacol 1 lozenge Q2H PRN. * COPD - Advair 232-14 1 puff daily. * Hypertension - Lisinopril 10MG daily, HCTZ 12.5MG daily. * Insomnia - Melatonin 6MG QHS. * Nausea - Zofran 8MG Q8H PRN. * MRSA/Enterococcus bacteremia - Vancomycin IV, followed by Dr. Pandey.
[2017-12-24] MEDS: MELATONIN 3 MG TABLET 6 MG PO (21:21)
--- NOTE | 2017-12-24 23:05 | PCM.RX.CS ---
Consult Pharmacy has been consulted to manage selected antiobiotic: Vancomycin Type of Consult: Follow-up Suspected Infection: Bacteremia Labs: Sodium 134 mmol/L (136-145) L 12/24/17 20:25 Potassium 4.1 mmol/L (3.5-5.1) 12/24/17 20:25 Chloride 102 mmol/L (98-107) 12/24/17 20:25 Carbon Dioxide 25.0 mmol/L (21.0-32.0) 12/24/17 20:25 Anion Gap 7 (5-15) 12/24/17 20:25 BUN 19 mg/dL (7-18) H 12/24/17 20:25 Creatinine 0.67 mg/dL (0.55-1.02) 12/24/17 20:25 Est GFR (MDRD) Af Amer 112 mL/min (>60) 12/24/17 20:25 Est GFR (MDRD) Non-Af 93 mL/min (>60) 12/24/17 20:25 BUN/Creatinine Ratio 28.5 RATIO (10-20) H 12/24/17 20:25 Glucose 91 mg/dL (74-106) 12/24/17 20:25 Random Vancomycin 23.2 ug/mL (0.0-15.0) H 12/24/17 20:25 Weight used for dosin.2 kg Estimated Creatinine Clearance: 43 Goal Trough: 15-20 mcg/mL Pharmacy Plan for Drug Dosing: Random vancomycin level was drawn 12/24/17 @2024 to evaluate patient's level from previous therapy. Level was 23.2, above the target range of 15-20. Another random level was ordered to be drawn in a.m. and further dosing will be evaluated then. Pharmacy Service will continue to monitor and adjust dosing as required. Follow-Up Labs: Trough Vancomycin - RANDOM Labs to be done on [date and time ordered]: 12/25/17 @8203
[2017-12-25] MEDS: Acetaminophen 500 MG Tablet 1000 MG PO (00:32)
[2017-12-25] MEDS: Fluticasone/Salmeterol 232-14 Inhaler 1 PUFF IH (04:23)
[2017-12-25] MEDS: hydroCHLOROthiazide 12.5mg 12.5 MG PO (04:25)
[2017-12-25] MEDS: Lisinopril 10 MG Tablet PO (04:25)
[2017-12-25] MEDS: Senna/Docusate Sodium 1 Tablet 2 TABLET PO ×2 (04:25→17:12)
[2017-12-25] MEDS: Enoxaparin 30 MG/0.3 ML Syringe SC (04:28)
[2017-12-25 04:30] VITALS: BP 121/64; PULSE 65
[2017-12-25 06:55] LABS: Absolute Lymphocyte Count 1.74 X10^3/ul (0.83-4.51); Basophil# 0.05 X10^3/uL; Eosinophil# 0.33 X10^3/uL; Eosinophils% 6.8 % (0-5); Hematocrit 30.7 % (37-47); Hemoglobin 9.7 g/dl (12.0-15.0); Lymphocyte # 1.74 X10^3/ul (4.0); Lymphocyte % 35.8 % (19-41); Mean Corp Hgb Conc 31.6 g/gl (32-36); Mean Corpuscular Hgb 27.2 pg (27.0-32.0); Mean Corpuscular Volume 86.2 fL (81-99); Mean Platelet Vol. 8.5 fl (6.2-12.0); Monocyte# 0.71 X10^3/uL; Monocyte% 14.6 % (0-10); Neutrophil # 2.01 X10^3/uL (2.7-7.7); Neutrophil % 41.4 % (47-70); Platelet Count 260 K/mm3 (150-450); RBC Distribution Width CV 15.5 % (11.6-14.6); RBC Distribution Width SD 48.7 fl (35.1-43.9); Red Blood Count 3.56 M/mm3 (4.2-5.4); White Blood Count 4.9 K/mm3 (4.4-11.0)
[2017-12-25 06:56] LABS: POSITIVE COUNT NO; POSITIVE DIFFERENTIAL NO; POSITIVE MORPHOLOGY NO
[2017-12-25 07:13] LABS: Anion Gap 10 (5-15); BUN 18 mg/dL (7-18); Chloride 103 mmol/L (98-107); Creatinine, Serum 0.64 mg/dL (0.55-1.02); EST Glomerular Filtration Rate 97 mL/min (>60); Est Glom Filt Rate - Afr Amer 117 mL/min (>60); Estimated Creatinine Clearance 42.68 ml/min; Glucose 87 mg/dL (74-106); Potassium 4.1 mmol/L (3.5-5.1); Sodium Level 137 mmol/L (136-145)
[2017-12-25 07:31] LABS: Vancomycin, Random Level 17.8 ug/mL (0.0-15.0)
[2017-12-25] MEDS: Tuberculin,Purif.prot.deriv. 50 TU/ML Vial 5 ML ID (11:11)
[2017-12-25] MEDS: 0.9% NaCl PICC Flush IV ×2 (11:12→23:23)
--- NOTE | 2017-12-25 11:30 | PCM.RX.CS ---
Consult Type of Consult: Follow-up Suspected Infection: Bacteremia Labs: Sodium 137 mmol/L (136-145) 12/25/17 06:35 Potassium 4.1 mmol/L (3.5-5.1) 12/25/17 06:35 Chloride 103 mmol/L (98-107) 12/25/17 06:35 Carbon Dioxide 24.0 mmol/L (21.0-32.0) 12/25/17 06:35 Anion Gap 10 (5-15) 12/25/17 06:35 BUN 18 mg/dL (7-18) 12/25/17 06:35 Creatinine 0.64 mg/dL (0.55-1.02) 12/25/17 06:35 Est GFR (MDRD) Af Amer 117 mL/min (>60) 12/25/17 06:35 Est GFR (MDRD) Non-Af 97 mL/min (>60) 12/25/17 06:35 BUN/Creatinine Ratio 28.0 RATIO (10-20) H 12/25/17 06:35 Glucose 87 mg/dL (74-106) 12/25/17 06:35 Random Vancomycin 17.8 ug/mL (0.0-15.0) H 12/25/17 06:35 Goal Trough: 15-20 mcg/mL Pharmacy Plan for Drug Dosing: Patient was previously on vancomycin 1000mg IV q12h at [facility] before admission to [facility]. Trough obtained last night before the next 1000mg dose would have been due came back as 23.2, which is above the goal range of 15-20, so pharmacy did not continue dosing at that time. Another random level obtained this morning at 06:35 returned as 17.8, which is in goal range. The plan is then to restart vancomycin at 750mg IV q12h, slightly lower dosing than the previous 1000mg q12h. A trough will be obtained before the 4th dose. Pharmacy Service will continue to monitor and adjust dosing as required. Follow-Up Labs: Trough Vancomycin Labs to be done on [date and time ordered]: 12/26/17 at 22:30 before the dose at 23:00
--- NOTE | 2017-12-25 11:34 | PHA.PHARE_ITS ---
Consult Type of Consult: Follow-up Suspected Infection: Bacteremia Labs: Sodium 137 mmol/L (136-145) 12/25/17 06:35 Potassium 4.1 mmol/L (3.5-5.1) 12/25/17 06:35 Chloride 103 mmol/L (98-107) 12/25/17 06:35 Carbon Dioxide 24.0 mmol/L (21.0-32.0) 12/25/17 06:35 Anion Gap 10 (5-15) 12/25/17 06:35 BUN 18 mg/dL (7-18) 12/25/17 06:35 Creatinine 0.64 mg/dL (0.55-1.02) 12/25/17 06:35 Est GFR (MDRD) Af Amer 117 mL/min (>60) 12/25/17 06:35 Est GFR (MDRD) Non-Af 97 mL/min (>60) 12/25/17 06:35 BUN/Creatinine Ratio 28.0 RATIO (10-20) H 12/25/17 06:35 Glucose 87 mg/dL (74-106) 12/25/17 06:35 Random Vancomycin 17.8 ug/mL (0.0-15.0) H 12/25/17 06:35 Goal Trough: 15-20 mcg/mL Pharmacy Plan for Drug Dosing: Patient was previously on vancomycin 1000mg IV q12h at [facility] before admission to [facility]. Trough obtained last night before the next 1000mg dose would have been due came back as 23.2, which is above the goal range of 15-20, so pharmacy did not continue dosing at that time. Another random level obtained this morning at 06:35 returned as 17.8, which is in goal range. The plan is then to restart vancomycin at 750mg IV q12h, slightly lower dosing than the previous 1000mg q12h. A trough will be obtained before the 4th dose. Pharmacy Service will continue to monitor and adjust dosing as required. Follow-Up Labs: Trough Vancomycin Labs to be done on [date and time ordered]: 12/26/17 at 22:30 before the dose at 23:00
--- NOTE | 2017-12-25 14:00 | CHAPLAIN ---
Type of Pastoral Visit _x__ Initial Visit ___ Follow-up Visit ___ On-call Visit ___ General Patient Visit ___ Spiritual Assessment ___ Family Conference ___ Bereavement ___ Rapid Response ___ Code Blue ___ Other (describe below) Pastoral Care Referral From _x__ Patient ___ Family ___ Nurse ___ Physician ___ Composition Instructor ___ Business Data Analyst ___ Other (describe below) Sacrament/Intervention _x__ Active listening ___ Anointing ___ Roman Catholic ___ Bereavement ___ Communion ___ Zora exploration ___ _x__ Life review _x__ Prayer ___ Reconciliation ___ Sacrament of Sick _x__ Supportive presence ___ Wedding ___ Other (describe below) Pastoral Comments patient gives story of her last month of surgeries and near experiences; pt says that 'today is going better' and appears to have optimism; pt says that she will know more about how to care for other people due to her experiences; pt says that life has new perspective and she would want to give more time to her zoroastrianism and helping other people; pt asks for prayer support and welcomes future visits
--- NOTE | 2017-12-25 15:04 | PCM.HP.ID ---
Problem List (1) MRSA bacteremia Status: Acute Reason for Consult: bacteremia Consulted by: Dr. Welch History of Present Illness: The patient is a 72 year old F with MRSA bacteremia from infected spine stimulator requiring surgical debridement after device removal. Had ? spine involvement on imaging, transferred from [facility] to [facility]. Seen by ID and neurosurg. Abx changed from dapto to vanc. Bcx cleared. Picc placed, discharged to TCU with planned iv vanc stop date 01/26/18. Feeling better, wounds are packed. No fever, no n/v/d. Full ROS performed and neg except as noted above. - Medical History Past Medical History (Chronic Problems): Chronic Problems Chronic back pain (Chronic) Asthma (Chronic) HTN (hypertension) (Chronic) COPD (chronic obstructive pulmonary disease) (Chronic) Allergies/Adverse Reactions: Allergies No Known Allergies Allergy (Verified 11/29/17 18:30) Home Medications: Ambulatory Orders Medication Instructions Recorded Fluticasone/Salmeterol [Advair 1 puff INHALATION DAILY 09/28/15 250/50 Mcg Diskus] Lisinopril/Hydrochlorothiazide 1 tablet PO DAILY 01/14/16 [Zestoretic 12/04.5 Tablet] Acetaminophen [Tylenol Tablet] 650 mg PO Q6 PRN 03/24/17 Senna/Docusate Sodium [Senokot-S] 1 tablet PO DAILY 11/10/17 Ondansetron [Zofran Odt] 8 mg PO Q8H PRN PRN #10 tab 11/28/17 Benzocaine/Menthol [Cepacol Sore 1 ea PO Q2H PRN PRN 12/24/17 Throat Lozenge] Melatonin 6 mg PO QHS 12/24/17 Oxycodone [Oxyir] 5 - 10 mg PO Q6H PRN PRN 12/24/17 Polyethylene Glycol 3350 [Miralax] 17 gm PO DAILY 12/24/17 Vancomycin/0.9 % Sod Chloride 1 gm IV Q12H 12/24/17 [Vancomycin 1 G/200Ml-0.9% NaCl] - Social History SMOKING STATUS:: Never smoker Vital Signs Temp Pulse Resp BP Pulse Ox 98.6 F 65 18 121/64 H 97 12/24/17 12:25 12/25/17 04:30 12/24/17 12:25 12/25/17 04:30 12/24/17 12:25 Oxygen Delivery Method Room Air Weight: 76.2 kg Body Mass Index (BMI) 29.7 Laboratory Tests Past 24 Hrs 12/24/17 12/24/17 12/25/17 20:25 20:25 06:35 WBC 4.9 RBC 3.56 L Hgb 9.7 L Hct 30.7 L MCV 86.2 MCH 27.2 MCHC 31.6 L RDW 15.5 H RDW Differential 48.7 H Plt Count 260 MPV 8.5 Immature Gran % (Auto) 0.400 Neut % (Auto) 41.4 L Lymph % (Auto) 35.8 Barron % (Auto) 14.6 H Eos % (Auto) 6.8 H Baso % (Auto) 1.0 Absolute Neuts (auto) 2.0 Absolute Lymphs (auto) 1.74 Total Counted Not Reportable Sodium 134 L Potassium 4.1 Chloride 102 Carbon Dioxide 25.0 Anion Gap 7 BUN 19 H Creatinine 0.67 Estim Creat Clear Calc 42.68 Est GFR (MDRD) Af Amer 112 Est GFR (MDRD) Non-Af 93 BUN/Creatinine Ratio 28.5 H Glucose 91 Calcium 8.5 Random Vancomycin 23.2 H 12/25/17 12/25/17 06:35 06:35 WBC RBC Hgb Hct MCV MCH MCHC RDW RDW Differential Plt Count MPV Immature Gran % (Auto) Neut % (Auto) Lymph % (Auto) Barron % (Auto) Eos % (Auto) Baso % (Auto) Absolute Neuts (auto) Absolute Lymphs (auto) Total Counted Sodium 137 Potassium 4.1 Chloride 103 Carbon Dioxide 24.0 Anion Gap 10 BUN 18 Creatinine 0.64 Estim Creat Clear Calc 42.68 Est GFR (MDRD) Af Amer 117 Est GFR (MDRD) Non-Af 97 BUN/Creatinine Ratio 28.0 H Glucose 87 Calcium 9.0 Random Vancomycin 17.8 H - Other Studies Radiology: [] reviewed Other Studies: [] Route of nutrition/ use of supplements: [] Nutritional Intake: [] IV Site: [] Painting Catheter: [] - Physical Exam General: Alert, Oriented x3, Cooperative, No apparent distress HEENT: Atraumatic, PERRLA, EOMI Neck: Supple, No Nodes Lungs: Clear to auscultation, Normal air movement Cardiovascular: Regular rate, Regular Rhythm, No murmurs Abdomen: Soft, Non Tender, Non-Distended Extremities: No edema Skin: Incision - reviewed photo IV Site: PICC, without redness Musculoskeletal: No Tenderness to Palpation of Joints or Extremities Neurological: Cranial nerves II-XII grossly intact - Assessment/Plan Antibiotics: [] Assessment/Plan: [] MRSA bacteremia due to infected spine stimulator - doing well on iv vanc, will follow trough, goal 15-20. Stop date 01/26/18. Had single bcx at [facility] with enterobacter, but thought to be contaminant. Will follow, thank you.
[2017-12-25 15:40] VITALS: BP 136/71; PULSE 83; RESP 18; TEMP 36.2; O2SAT 98
[2017-12-25] MEDS: MELATONIN 3 MG TABLET 6 MG PO (23:10)
[2017-12-25 23:15] VITALS: PULSE 71; RESP 16; O2SAT 98
[2017-12-26] MEDS: oxyCODONE 5 MG Tablet PO (03:46)
[2017-12-26] MEDS: hydroCHLOROthiazide 12.5mg 12.5 MG PO (05:40)
[2017-12-26] MEDS: Fluticasone/Salmeterol 232-14 Inhaler 1 PUFF IH (05:40)
[2017-12-26] MEDS: Lisinopril 10 MG Tablet PO (05:41)
[2017-12-26] MEDS: Enoxaparin 30 MG/0.3 ML Syringe SC (05:42)
[2017-12-26] MEDS: 0.9% NaCl PICC Flush IV ×2 (11:28→23:05)
[2017-12-26 15:38] VITALS: BP 126/67; PULSE 76; RESP 16; TEMP 35.8; O2SAT 97
[2017-12-26] MEDS: Nystatin Powder 15gm Bottle 1 APPLIC TOPICAL (20:18)
[2017-12-26] MEDS: MELATONIN 3 MG TABLET 6 MG PO (23:09)
[2017-12-26 23:46] LABS: Vancomycin, Trough Level 19.2 ug/mL (5.0-15.0)
--- NOTE | 2017-12-26 23:59 | PCM.RX.CS ---
Consult Pharmacy has been consulted to manage selected antiobiotic: Vancomycin Type of Consult: Follow-up Suspected Infection: Bacteremia Prior Doses of Antibiotics Received/Current Regimen: Medications Vancomycin HCl 750 mg/ Sodium (Chloride) 265 mls @ 250 mls/hr IV Q12H DRE Last Admin: 12/26/17 23:05 Dose: 250 mls/hr Labs: Sodium 137 mmol/L (136-145) 12/25/17 06:35 Potassium 4.1 mmol/L (3.5-5.1) 12/25/17 06:35 Chloride 103 mmol/L (98-107) 12/25/17 06:35 Carbon Dioxide 24.0 mmol/L (21.0-32.0) 12/25/17 06:35 Anion Gap 10 (5-15) 12/25/17 06:35 BUN 18 mg/dL (7-18) 12/25/17 06:35 Creatinine 0.64 mg/dL (0.55-1.02) 12/25/17 06:35 Est GFR (MDRD) Af Amer 117 mL/min (>60) 12/25/17 06:35 Est GFR (MDRD) Non-Af 97 mL/min (>60) 12/25/17 06:35 BUN/Creatinine Ratio 28.0 RATIO (10-20) H 12/25/17 06:35 Glucose 87 mg/dL (74-106) 12/25/17 06:35 Vancomycin Trough 19.2 ug/mL (5.0-15.0) H 12/26/17 22:30 Random Vancomycin 17.8 ug/mL (0.0-15.0) H 12/25/17 06:35 Weight used for dosin.2 kg Estimated Creatinine Clearance: 43 Goal Trough: 15-20 mcg/mL Pharmacy Plan for Drug Dosing: Trough level of 19.2 was within target range of 15-20. Will continue same dose of 750mg q12h & re-draw trough in 4 days. Pharmacy Service will continue to monitor and adjust dosing as required. Follow-Up Labs: Trough Vancomycin Labs to be done on [date and time ordered]: 12/30/17 @0930
[2017-12-27] MEDS: oxyCODONE 5 MG Tablet PO ×2 (01:47→22:54)
[2017-12-27] MEDS: Fluticasone/Salmeterol 232-14 Inhaler 1 PUFF IH (06:21)
[2017-12-27] MEDS: hydroCHLOROthiazide 12.5mg 12.5 MG PO (06:22)
[2017-12-27] MEDS: Senna/Docusate Sodium 1 Tablet 2 TABLET PO (06:22)
[2017-12-27] MEDS: Enoxaparin 30 MG/0.3 ML Syringe SC (06:22)
[2017-12-27] MEDS: Lisinopril 10 MG Tablet PO (06:22)
[2017-12-27] MEDS: Nystatin Powder 15gm Bottle 1 APPLIC TOPICAL ×2 (06:28→20:25)
[2017-12-27] MEDS: 0.9% NaCl PICC Flush IV ×2 (11:40→22:56)
[2017-12-27 16:00] VITALS: BP 165/77; PULSE 81; RESP 18; TEMP 35.8; O2SAT 96
[2017-12-27] MEDS: Acetaminophen 500 MG Tablet 1000 MG PO (21:29)
[2017-12-27] MEDS: MELATONIN 3 MG TABLET 6 MG PO (22:54)
[2017-12-28] MEDS: hydroCHLOROthiazide 12.5mg 12.5 MG PO (04:39)
[2017-12-28] MEDS: Lisinopril 10 MG Tablet PO (04:39)
[2017-12-28] MEDS: Fluticasone/Salmeterol 232-14 Inhaler 1 PUFF IH (04:39)
[2017-12-28] MEDS: Nystatin Powder 15gm Bottle 1 APPLIC TOPICAL ×2 (04:40→22:29)
[2017-12-28] MEDS: Enoxaparin 30 MG/0.3 ML Syringe SC (04:40)
[2017-12-28] MEDS: Senna/Docusate Sodium 1 Tablet 2 TABLET PO ×2 (04:40→18:07)
[2017-12-28] MEDS: Acetaminophen 500 MG Tablet 1000 MG PO (04:42)
[2017-12-28] MEDS: oxyCODONE 5 MG Tablet PO (05:35)
[2017-12-28] MEDS: 0.9% NaCl PICC Flush IV ×3 (05:36→22:25)
[2017-12-28 05:50] LABS: Absolute Lymphocyte Count 1.24 X10^3/ul (0.83-4.51); Absolute Neutrophil Count 2.9 X10^3/uL (2.0-7.7); Basophil# 0.03 X10^3/uL; Basophil% 0.6 % (0-1); Eosinophil# 0.35 X10^3/uL; Eosinophils% 6.6 % (0-5); Hemoglobin 8.4 g/dl (12.0-15.0); Lymphocyte # 1.24 X10^3/ul (4.0); Lymphocyte % 23.4 % (19-41); Mean Corp Hgb Conc 31.1 g/gl (32-36); Mean Corpuscular Hgb 27.3 pg (27.0-32.0); Mean Corpuscular Volume 87.7 fL (81-99); Mean Platelet Vol. 8.7 fl (6.2-12.0); Monocyte# 0.75 X10^3/uL; Monocyte% 14.2 % (0-10); Neutrophil # 2.88 X10^3/uL (2.7-7.7); Neutrophil % 54.4 % (47-70); Platelet Count 268 K/mm3 (150-450); RBC Distribution Width CV 14.9 % (11.6-14.6); RBC Distribution Width SD 46.1 fl (35.1-43.9); Red Blood Count 3.08 M/mm3 (4.2-5.4); White Blood Count 5.3 K/mm3 (4.4-11.0)
[2017-12-28 05:53] LABS: POSITIVE COUNT NO; POSITIVE DIFFERENTIAL NO; POSITIVE MORPHOLOGY NO
[2017-12-28 06:17] LABS: CRP 8.98 mg/L (0.0-3.0); Creatinine, Serum 0.64 mg/dL (0.55-1.02); EST Glomerular Filtration Rate 98 mL/min (>60); Est Glom Filt Rate - Afr Amer 118 mL/min (>60); Estimated Creatinine Clearance 42.68 ml/min
--- NOTE | 2017-12-28 12:28 | CASEMGMT ---
Insurance Clinical information sent. Pending continued stay approval at this time. Auth#[id number] GOOD Easton, PRISON CLASSIFICATION COUNSELOR
--- NOTE | 2017-12-28 13:03 | NS ---
Res tired of ensure clear w/ meals - wants to trial chocolate ensure pudding instead.
[2017-12-28 15:23] VITALS: BP 151/71; PULSE 81; RESP 18; TEMP 36.5; O2SAT 97
[2017-12-28] MEDS: MELATONIN 3 MG TABLET 6 MG PO (22:21)
[2017-12-29] MEDS: oxyCODONE 5 MG Tablet PO (00:23)
[2017-12-29] MEDS: Fluticasone/Salmeterol 232-14 Inhaler 1 PUFF IH (05:50)
[2017-12-29] MEDS: Senna/Docusate Sodium 1 Tablet 2 TABLET PO ×2 (05:51→16:39)
[2017-12-29] MEDS: Polyethylene Glycol 3350 17 GM PACKET PO (05:51)
[2017-12-29] MEDS: Lisinopril 10 MG Tablet PO (05:51)
[2017-12-29] MEDS: hydroCHLOROthiazide 12.5mg 12.5 MG PO (05:51)
[2017-12-29] MEDS: Enoxaparin 30 MG/0.3 ML Syringe SC (05:51)
[2017-12-29] MEDS: Nystatin Powder 15gm Bottle 1 APPLIC TOPICAL ×2 (05:52→22:32)
--- NOTE | 2017-12-29 07:37 | NURSING ---
wound photo: right upper buttock late entry from 12/28/17 d/t inability to get into [facility]
--- NOTE | 2017-12-29 07:38 | NURSING ---
wound photo: mid back late entry from 12/28/17 d/t inability to get into [facility]
[2017-12-29] MEDS: Iron Polysaccharide Complex 150 MG CAPSULE PO (08:10)
--- NOTE | 2017-12-29 10:27 | CASEMGMT ---
Insurance Continued stay approved with next update due on 01/04/18. Auth#[id number] GOOD Easton, CONTROL ELECTRICIAN
--- NOTE | 2017-12-29 11:02 | PCM.PN.ID ---
Subjective: Feeling well, no complaints, no fever, no n/v/d. - Physical Exam General: Alert, Cooperative, No apparent distress Lungs: Clear to auscultation, Normal air movement Cardiovascular: Regular rate, Regular Rhythm Abdomen: Soft, Non Tender, Non-Distended Skin: Ulcer/ Wound - wound vac in place on back Vital Signs Temp Pulse Resp BP Pulse Ox 97.7 F L 81 18 151/71 H 97 12/28/17 15:23 12/28/17 15:23 12/28/17 15:23 12/28/17 15:23 12/28/17 15:23 Oxygen Delivery Method Room Air Weight: 76.2 kg Body Mass Index (BMI) 29.7 Intake and Output for Last 24 Hours 12/27/17 12/28/17 12/29/17 23:59 23:59 23:59 Intake Total 720 / 720 480 / 480 Balance 720 / 720 480 / 480 Medical Necessity - Tobacco Use Smoking Status: Never smoker Tobacco Use: Non-smoker Route of nutrition/ use of supplements: [] Nutritional Intake: [] IV Site: [] Painting Catheter: [] - Assessment/Plan Antibiotics: [] Assessment/Plan: [] MRSA bacteremia due to infected spine stimulator - doing well on iv vanc, will follow trough, goal 15-20. Stop date 01/26/18. Had single bcx at [facility] with enterobacter, but thought to be contaminant. Wound vac in place. Will follow
[2017-12-29] MEDS: 0.9% NaCl PICC Flush IV ×2 (11:19→22:32)
[2017-12-29] MEDS: Acetaminophen 500 MG Tablet 1000 MG PO (11:24)
--- NOTE | 2017-12-29 15:19 | PCM.PN.RX ---
<Alcides Montelongo D - Last Filed: 12/29/17 15:19> Progress Note - Pharmacy Subjective: TCU Admission Objective: Allergies No Known Allergies Allergy (Verified 11/29/17 18:30) Current Medications Generic Name Dose Route Start Last Admin Trade Name Freq PRN Reason Stop Dose Admin Acetaminophen 1,000 mg 12/24/17 21:43 12/29/17 11:24 Tylenol PO 1,000 mg Q6H PRN PRN Administration MILD PAIN (1-3/10) Bisacodyl 10 mg 12/24/17 21:42 Dulcolax PO DAILY PRN Constipation Enoxaparin Sodium 30 mg 12/25/17 06:00 12/29/17 05:51 Lovenox SC 30 mg DAILY@0600 DRE Administration Heparin Sodium (Beef Lung) 50 units 12/25/17 10:50 IV UD PRN HEPARIN FLUSH Hydrochlorothiazide 12.5 mg 12/25/17 06:00 12/29/17 05:51 Hydrochlorothiazide PO 12.5 mg DAILY DRE Administration Vancomycin IV Pharmacy to Dose 500 mls @ 250 mls/hr 12/24/17 14:32 1 ea/ Sodium Chloride IV PRN PRN Rx to Dose Protocol Vancomycin HCl 750 mg/ Sodium 265 mls @ 250 mls/hr 12/25/17 10:00 12/29/17 11:18 Chloride IV 01/26/18 10:00 250 mls/hr Q12H DRE Administration Sodium Chloride 250 mls @ 15 mls/hr 12/25/17 11:20 12/28/17 22:25 IV 15 mls/hr .[id number] PRN Administration SALINE FLUSH Lisinopril 10 mg 12/25/17 06:00 12/29/17 05:51 Zestril PO 10 mg DAILY DRE Administration Melatonin 6 mg 12/24/17 22:00 12/28/17 22:21 Melatonin PO 6 mg QHS DRE Administration Nystatin 1 applic 12/26/17 22:00 12/29/17 05:52 Mycostatin Powder TOPICAL 1 applicatio 0600,2200 DRE Administration Protocol Ondansetron HCl 8 mg 12/24/17 15:03 Zofran Odt PO Q8H PRN NAUSEA/VOMITING Oxycodone HCl 5 - 10 mg 12/27/17 22:26 12/29/17 00:23 Oxyir PO 10 mg Q6H PRN PRN Administration SEVERE PAIN (6-12/02) Polyethylene Glycol 17 gm 12/25/17 06:00 12/29/17 05:51 Miralax PO 17 gm DAILY DRE Administration Polysaccharide Iron Complex 150 mg 12/29/17 08:00 12/29/17 08:10 Ferrex 150 PO 150 mg DAILYCM DRE Administration Fluticasone/Salmeterol 1 puff 12/25/17 06:00 12/29/17 05:50 Fluticasone-Salmeterol 232-14 IH 1 puff DAILY DRE Administration Senna/Docusate Sodium 2 tablet 12/24/17 18:00 12/29/17 05:51 Senokot-S, Radha-Colace PO 2 tablet BID DRE Administration Sodium Chloride 10 - 20 ml 12/25/17 10:50 12/29/17 11:19 IV 10 ml UD PRN Administration PICC FLUSH Throat Lozenges 1 lozenge 12/24/17 13:35 Cepacol Sore Throat Lozenge MUCOUS MEM Q2H PRN PRN SORE THROAT Tuberculin PPD 5 tu 01/01/18 10:00 Tubersol, Aplisol, Ppd ID 01/01/18 10:01 X1 ONE Vital Signs Temp Pulse Resp BP Pulse Ox 97.7 F L 81 18 151/71 H 97 12/28/17 15:23 12/28/17 15:23 12/28/17 15:23 12/28/17 15:23 12/28/17 15:23 Oxygen Delivery Method Room Air Weight: 76.742 kg Body Mass Index (BMI) 29.7 Sodium 137 mmol/L (136-145) 12/25/17 06:35 Potassium 4.1 mmol/L (3.5-5.1) 12/25/17 06:35 Chloride 103 mmol/L (98-107) 12/25/17 06:35 Carbon Dioxide 24.0 mmol/L (21.0-32.0) 12/25/17 06:35 Anion Gap 10 (5-15) 12/25/17 06:35 BUN 18 mg/dL (7-18) 12/25/17 06:35 Creatinine 0.64 mg/dL (0.55-1.02) 12/28/17 05:30 Est GFR (MDRD) Af Amer 118 mL/min (>60) 12/28/17 05:30 Est GFR (MDRD) Non-Af 98 mL/min (>60) 12/28/17 05:30 BUN/Creatinine Ratio 28.0 RATIO (10-20) H 12/25/17 06:35 Glucose 87 mg/dL (74-106) 12/25/17 06:35 Vancomycin Trough 19.2 ug/mL (5.0-15.0) H 12/26/17 22:30 Random Vancomycin 17.8 ug/mL (0.0-15.0) H 12/25/17 06:35 Assessment/Plan: 1) Pain APAP for mild pain, oxycodone for severe pain. Continue to monitor daily pain scores, prn medication use. 2) ID Vancomycin until 01/26. Pharmacy following renal function and levels with ID. Continue to monitor s/s infection. 3) HTN Lisinopril, HCTZ. Continue to monitor BP/HR, renal function, electrolytes. 4) DVT PPx Enoxaparin daily. Continue to monitor s/s bleeding/clot. 5) Sleep Melatonin at HS. Continue to monitor for insomnia. 6) Pulm Fluticasone/salmeterol inh. Continue to monitor for shortness of breath. Psychotropic Medications: None Unnecessary Medications: None Bowel Regimen: 7) Senna/s, PEG, prn bisacodyl. Continue to monitor prn medication use, for constipation/diarrhea. Date of Note:: 12/29/17 - Provider Comments Provider responsibility: Provider responsible to enter orders to implement recommendations <Primitivo Welch Chi - Last Filed: 12/29/17 17:43> Progress Note - Pharmacy Subjective: [] Objective: Allergies No Known Allergies Allergy (Verified 11/29/17 18:30) Current Medications Generic Name Dose Route Start Last Admin Trade Name Freq PRN Reason Stop Dose Admin Acetaminophen 1,000 mg 12/24/17 21:43 12/29/17 11:24 Tylenol PO 1,000 mg Q6H PRN PRN Administration MILD PAIN (1-3/10) Bisacodyl 10 mg 12/24/17 21:42 Dulcolax PO DAILY PRN Constipation Enoxaparin Sodium 30 mg 12/25/17 06:00 12/29/17 05:51 Lovenox SC 30 mg DAILY@0600 DRE Administration Heparin Sodium (Beef Lung) 50 units 12/25/17 10:50 IV UD PRN HEPARIN FLUSH Hydrochlorothiazide 12.5 mg 12/25/17 06:00 12/29/17 05:51 Hydrochlorothiazide PO 12.5 mg DAILY DRE Administration Vancomycin IV Pharmacy to Dose 500 mls @ 250 mls/hr 12/24/17 14:32 1 ea/ Sodium Chloride IV PRN PRN Rx to Dose Protocol Vancomycin HCl 750 mg/ Sodium 265 mls @ 250 mls/hr 12/25/17 10:00 12/29/17 11:18 Chloride IV 01/26/18 10:00 250 mls/hr Q12H DRE Administration Sodium Chloride 250 mls @ 15 mls/hr 12/25/17 11:20 12/28/17 22:25 IV 15 mls/hr .[id number] PRN Administration SALINE FLUSH Lisinopril 10 mg 12/25/17 06:00 12/29/17 05:51 Zestril PO 10 mg DAILY DRE Administration Melatonin 6 mg 12/24/17 22:00 12/28/17 22:21 Melatonin PO 6 mg QHS DRE Administration Nystatin 1 applic 12/26/17 22:00 12/29/17 05:52 Mycostatin Powder TOPICAL 1 applicatio 0600,2200 DRE Administration Protocol Ondansetron HCl 8 mg 12/24/17 15:03 Zofran Odt PO Q8H PRN NAUSEA/VOMITING Oxycodone HCl 5 - 10 mg 12/27/17 22:26 12/29/17 00:23 Oxyir PO 10 mg Q6H PRN PRN Administration SEVERE PAIN (6-10/10) Polyethylene Glycol 17 gm 12/25/17 06:00 12/29/17 05:51 Miralax PO 17 gm DAILY DRE Administration Polysaccharide Iron Complex 150 mg 12/29/17 08:00 12/29/17 08:10 Ferrex 150 PO 150 mg DAILYCM DRE Administration Fluticasone/Salmeterol 1 puff 12/25/17 06:00 12/29/17 05:50 Fluticasone-Salmeterol 232-14 IH 1 puff DAILY DRE Administration Senna/Docusate Sodium 2 tablet 12/24/17 18:00 12/29/17 16:39 Senokot-S, Radha-Colace PO 2 tablet BID DRE Administration Sodium Chloride 10 - 20 ml 12/25/17 10:50 12/29/17 11:19 IV 10 ml UD PRN Administration PICC FLUSH Throat Lozenges 1 lozenge 12/24/17 13:35 Cepacol Sore Throat Lozenge MUCOUS MEM Q2H PRN PRN SORE THROAT Tuberculin PPD 5 tu 01/01/18 10:00 Tubersol, Aplisol, Ppd ID 01/01/18 10:01 X1 ONE Vital Signs Temp Pulse Resp BP Pulse Ox 97.5 F L 64 18 135/61 H 97 12/29/17 16:00 12/29/17 16:00 12/29/17 16:00 12/29/17 16:00 12/29/17 16:00 Oxygen Delivery Method Room Air Weight: 76.742 kg Body Mass Index (BMI) 29.7 Sodium 137 mmol/L (136-145) 12/25/17 06:35 Potassium 4.1 mmol/L (3.5-5.1) 12/25/17 06:35 Chloride 103 mmol/L (98-107) 12/25/17 06:35 Carbon Dioxide 24.0 mmol/L (21.0-32.0) 12/25/17 06:35 Anion Gap 10 (5-15) 12/25/17 06:35 BUN 18 mg/dL (7-18) 12/25/17 06:35 Creatinine 0.64 mg/dL (0.55-1.02) 12/28/17 05:30 Est GFR (MDRD) Af Amer 118 mL/min (>60) 12/28/17 05:30 Est GFR (MDRD) Non-Af 98 mL/min (>60) 12/28/17 05:30 BUN/Creatinine Ratio 28.0 RATIO (10-20) H 12/25/17 06:35 Glucose 87 mg/dL (74-106) 12/25/17 06:35 Vancomycin Trough 19.2 ug/mL (5.0-15.0) H 12/26/17 22:30 Random Vancomycin 17.8 ug/mL (0.0-15.0) H 12/25/17 06:35 Assessment/Plan: Psychotropic Medications: Unnecessary Medications: Bowel Regimen: - Provider Comments Provider responsibility: Provider responsible to enter orders to implement recommendations Provider Comments to Recommendations by Pharmacy: Agree
[2017-12-29 16:00] VITALS: BP 135/61; PULSE 64; RESP 18; TEMP 36.4; O2SAT 97
[2017-12-29] MEDS: MELATONIN 3 MG TABLET 6 MG PO (22:32)
[2017-12-30] MEDS: Acetaminophen 500 MG Tablet 1000 MG PO ×2 (01:55→20:20)
[2017-12-30] MEDS: Fluticasone/Salmeterol 232-14 Inhaler 1 PUFF IH (05:28)
[2017-12-30] MEDS: hydroCHLOROthiazide 12.5mg 12.5 MG PO (05:29)
[2017-12-30] MEDS: Lisinopril 10 MG Tablet PO (05:29)
[2017-12-30] MEDS: oxyCODONE 5 MG Tablet PO (05:29)
[2017-12-30] MEDS: Enoxaparin 30 MG/0.3 ML Syringe SC (05:29)
[2017-12-30] MEDS: Senna/Docusate Sodium 1 Tablet 2 TABLET PO ×2 (05:29→16:31)
[2017-12-30] MEDS: Nystatin Powder 15gm Bottle 1 APPLIC TOPICAL ×2 (05:29→20:21)
[2017-12-30] MEDS: Iron Polysaccharide Complex 150 MG CAPSULE PO (10:01)
[2017-12-30] MEDS: 0.9% NaCl PICC Flush IV (10:45)
--- NOTE | 2017-12-30 11:19 | CASEMGMT ---
Plan of care meeting held. Resident present as well as resident family. No discharge date set at this time. Resident to continue with further care and treatment on the Transitional Care Unit at this time. Resident with insurance update due on 01/04/18 and aware that continued stay approval is not guaranteed. Resident also continues with wound vac for wound care. Resident plans to discharge to home alone at time of discharge. Support given. Will continue to follow. Kim Simental, CABLE TESTER, POLICE OFFICER BOOKING
--- NOTE | 2017-12-30 11:31 | PCM.RX.CS ---
Consult Pharmacy has been consulted to manage selected antiobiotic: Vancomycin Type of Consult: Follow-up Suspected Infection: Bacteremia Prior Doses of Antibiotics Received/Current Regimen: VANCOMYCIN 750MG IV Q24HRS: 12/29 @1118, 2235 AND 12/30 @1044 Labs: Sodium 137 mmol/L (136-145) 12/25/17 06:35 Potassium 4.1 mmol/L (3.5-5.1) 12/25/17 06:35 Chloride 103 mmol/L (98-107) 12/25/17 06:35 Carbon Dioxide 24.0 mmol/L (21.0-32.0) 12/25/17 06:35 Anion Gap 10 (5-15) 12/25/17 06:35 BUN 18 mg/dL (7-18) 12/25/17 06:35 Creatinine 0.64 mg/dL (0.55-1.02) 12/28/17 05:30 Est GFR (MDRD) Af Amer 118 mL/min (>60) 12/28/17 05:30 Est GFR (MDRD) Non-Af 98 mL/min (>60) 12/28/17 05:30 BUN/Creatinine Ratio 28.0 RATIO (10-20) H 12/25/17 06:35 Glucose 87 mg/dL (74-106) 12/25/17 06:35 Vancomycin Trough 22.0 ug/mL (5.0-15.0) H 12/30/17 10:24 Random Vancomycin 17.8 ug/mL (0.0-15.0) H 12/25/17 06:35 Goal Trough: 15-20 mcg/mL Pharmacy Plan for Drug Dosing: The patient had a vancomycin trough come back which resulted in a value of 22 (~12hrs from last administered dose). This is above her goal therapeutic range of 15-20. Per dosing policy, will plan on holding X 24hrs since she got her morning dose today, check a random level in 24hrs, then reassess dosing. PLAN/RECOMMENDATIONS 1. HOLD vancomycin x24hrs 2. Random vancomycin level scheduled 12/31/17 @1100 3. Pharmacy Service will continue to monitor and adjust dosing as required.
[2017-12-30 15:26] VITALS: BP 140/54; PULSE 92; RESP 16; TEMP 36; O2SAT 96
[2017-12-30] MEDS: MELATONIN 3 MG TABLET 6 MG PO (20:20)
[2017-12-30] MEDS: Menthol/Lanolin/Calamine/Znox 113 GM Tube 1 APPLIC TOPICAL (20:20)
[2017-12-31 05:28] VITALS: BP 123/61; PULSE 70; RESP 16; TEMP 36.5; O2SAT 98
[2017-12-31] MEDS: Fluticasone/Salmeterol 232-14 Inhaler 1 PUFF IH (05:30)
[2017-12-31] MEDS: Enoxaparin 30 MG/0.3 ML Syringe SC (05:31)
[2017-12-31] MEDS: Senna/Docusate Sodium 1 Tablet 2 TABLET PO ×2 (05:32→17:04)
[2017-12-31] MEDS: Lisinopril 10 MG Tablet PO (05:32)
[2017-12-31] MEDS: hydroCHLOROthiazide 12.5mg 12.5 MG PO (05:32)
[2017-12-31] MEDS: Menthol/Lanolin/Calamine/Znox 113 GM Tube 1 APPLIC TOPICAL ×2 (05:33→21:48)
[2017-12-31] MEDS: Nystatin Powder 15gm Bottle 1 APPLIC TOPICAL ×2 (05:33→21:48)
[2017-12-31] MEDS: Iron Polysaccharide Complex 150 MG CAPSULE PO (09:14)
[2017-12-31 11:25] LABS: Vancomycin, Random Level 15.4 ug/mL (0.0-15.0)
--- NOTE | 2017-12-31 12:39 | PCM.RX.CS ---
Consult Pharmacy has been consulted to manage selected antiobiotic: Vancomycin Type of Consult: Follow-up Suspected Infection: Other Prior Doses of Antibiotics Received/Current Regimen: Medications Discontinued Medications Vancomycin HCl 750 mg/ Sodium (Chloride) 265 mls @ 250 mls/hr IV Q12H DRE Stop: 01/26/18 10:00 Last Admin: 12/30/17 10:44 Dose: 250 mls/hr Labs: Sodium 137 mmol/L (136-145) 12/25/17 06:35 Potassium 4.1 mmol/L (3.5-5.1) 12/25/17 06:35 Chloride 103 mmol/L (98-107) 12/25/17 06:35 Carbon Dioxide 24.0 mmol/L (21.0-32.0) 12/25/17 06:35 Anion Gap 10 (5-15) 12/25/17 06:35 BUN 18 mg/dL (7-18) 12/25/17 06:35 Creatinine 0.64 mg/dL (0.55-1.02) 12/28/17 05:30 Est GFR (MDRD) Af Amer 118 mL/min (>60) 12/28/17 05:30 Est GFR (MDRD) Non-Af 98 mL/min (>60) 12/28/17 05:30 BUN/Creatinine Ratio 28.0 RATIO (10-20) H 12/25/17 06:35 Glucose 87 mg/dL (74-106) 12/25/17 06:35 Vancomycin Trough 22.0 ug/mL (5.0-15.0) H 12/30/17 10:24 Random Vancomycin 15.4 ug/mL (0.0-15.0) H 12/31/17 10:45 Weight used for dosin kg Goal Trough: 15-20 mcg/mL Pharmacy Plan for Drug Dosing: Trough at goal after 24 hour hold. Recommend to restart vancomycin 500mg IV q12h, trough prior to 4th dose per nomogram. Pharmacy Service will continue to monitor and adjust dosing as required. Follow-Up Labs: Trough Vancomycin - 01/01 @ 2130
--- NOTE | 2017-12-31 13:36 | CASEMGMT ---
Addendum entered by Kim Simental 12/31/17 14:18: Reviewed and approved social work student MDS documentation. GOOD Easton, SENIOR HR GENERALIST Original Note: Brief interview for mental status (BIMS) and mood (PHQ-9) completed on this day. BIMS score: . PHQ-9 score: 04/21. Krish Curtis social work student
[2017-12-31] MEDS: 0.9% NaCl PICC Flush IV ×2 (13:50→21:43)
[2017-12-31] MEDS: Vancomycin IV 500 MG/100 ML BAG 100 MG IV ×2 (13:54→21:45)
[2017-12-31 15:17] VITALS: BP 141/63; PULSE 89; RESP 16; TEMP 36.3; O2SAT 97
--- NOTE | 2017-12-31 16:23 | CHAPLAIN ---
Type of Pastoral Visit ___ Initial Visit _x__ Follow-up Visit ___ On-call Visit ___ General Patient Visit ___ Spiritual Assessment ___ Family Conference ___ Bereavement ___ Rapid Response ___ Code Blue ___ Other (describe below) Pastoral Care Referral From _x__ Patient ___ Family ___ Nurse ___ Physician ___ Sheet Rocker ___ Brush Worker ___ Other (describe below) Sacrament/Intervention _x__ Active listening ___ Anointing ___ Protestant ___ Bereavement ___ Communion ___ Zora exploration ___ ___ Life review _x__ Prayer ___ Reconciliation ___ Sacrament of Sick _x__ Supportive presence ___ Wedding ___ Other (describe below) Pastoral Comments patient requests prayer for a good nights sleep and continual progress toward healing; pt would like to help other people and visit in nursing homes one day when she is well; pt displays hope amidst the weariness of long recovery
[2017-12-31] MEDS: Acetaminophen 500 MG Tablet 1000 MG PO (21:42)
[2017-12-31] MEDS: MELATONIN 3 MG TABLET 6 MG PO (22:05)
[2018-01-01] MEDS: 0.9% NaCl PICC Flush IV ×4 (04:51→22:52)
[2018-01-01] MEDS: Fluticasone/Salmeterol 232-14 Inhaler 1 PUFF IH (04:51)
[2018-01-01] MEDS: hydroCHLOROthiazide 12.5mg 12.5 MG PO (04:52)
[2018-01-01] MEDS: Enoxaparin 30 MG/0.3 ML Syringe SC (04:52)
[2018-01-01] MEDS: Senna/Docusate Sodium 1 Tablet 2 TABLET PO ×2 (04:52→16:49)
[2018-01-01] MEDS: Polyethylene Glycol 3350 17 GM PACKET PO (04:52)
[2018-01-01] MEDS: Lisinopril 10 MG Tablet PO (04:52)
[2018-01-01] MEDS: Menthol/Lanolin/Calamine/Znox 113 GM Tube 1 APPLIC TOPICAL ×2 (04:53→21:17)
[2018-01-01] MEDS: Nystatin Powder 15gm Bottle 1 APPLIC TOPICAL ×2 (04:54→21:16)
[2018-01-01 05:42] LABS: Absolute Lymphocyte Count 1.04 X10^3/ul (0.83-4.51); Absolute Neutrophil Count 3.2 X10^3/uL (2.0-7.7); Anion Gap 9 (5-15); BUN 34 mg/dL (7-18); BUN/Creat Ratio 50.1 RATIO (10-20); Basophil# 0.05 X10^3/uL; Basophil% 0.9 % (0-1); Calcium,Total 9.1 mg/dL (8.5-10.1); Chloride 103 mmol/L (98-107); Creatinine, Serum 0.68 mg/dL (0.55-1.02); EST Glomerular Filtration Rate 91 mL/min (>60); Eosinophil# 0.33 X10^3/uL; Eosinophils% 6.1 % (0-5); Est Glom Filt Rate - Afr Amer 110 mL/min (>60); Estimated Creatinine Clearance 42.68 ml/min; Glucose 82 mg/dL (74-106); Hematocrit 29.4 % (37-47); Hemoglobin 9.2 g/dl (12.0-15.0); Lymphocyte # 1.04 X10^3/ul (4.0); Lymphocyte % 19.2 % (19-41); Mean Corp Hgb Conc 31.3 g/gl (32-36); Mean Corpuscular Hgb 27.4 pg (27.0-32.0); Mean Corpuscular Volume 87.5 fL (81-99); Mean Platelet Vol. 9.2 fl (6.2-12.0); Monocyte# 0.76 X10^3/uL; Neutrophil # 3.21 X10^3/uL (2.7-7.7); Neutrophil % 59.1 % (47-70); Platelet Count 311 K/mm3 (150-450); Potassium 3.8 mmol/L (3.5-5.1); RBC Distribution Width CV 14.9 % (11.6-14.6); RBC Distribution Width SD 45.8 fl (35.1-43.9); Red Blood Count 3.36 M/mm3 (4.2-5.4); Sodium Level 139 mmol/L (136-145); White Blood Count 5.4 K/mm3 (4.4-11.0)
[2018-01-01 05:46] LABS: POSITIVE COUNT NO; POSITIVE DIFFERENTIAL NO; POSITIVE MORPHOLOGY NO
[2018-01-01] MEDS: Iron Polysaccharide Complex 150 MG CAPSULE PO (08:21)
[2018-01-01] MEDS: Vancomycin IV 500 MG/100 ML BAG 100 MG IV ×2 (09:41→22:49)
[2018-01-01] MEDS: Tuberculin,Purif.prot.deriv. 50 TU/ML Vial 5 ML ID (09:45)
[2018-01-01 15:41] VITALS: BP 104/58; PULSE 94; RESP 18; O2SAT 94
[2018-01-01] MEDS: oxyCODONE 5 MG Tablet PO (16:53)
[2018-01-01] MEDS: MELATONIN 3 MG TABLET 6 MG PO (21:19)
[2018-01-01 22:42] LABS: Vancomycin, Trough Level 15.2 ug/mL (5.0-15.0)
[2018-01-02] MEDS: oxyCODONE 5 MG Tablet PO ×2 (01:10→20:03)
--- NOTE | 2018-01-02 06:41 | PCM.RX.CS ---
Consult Pharmacy has been consulted to manage selected antiobiotic: Vancomycin Type of Consult: Follow-up Suspected Infection: Bacteremia Labs: Sodium 139 mmol/L (136-145) 01/01/18 04:55 Potassium 3.8 mmol/L (3.5-5.1) 01/01/18 04:55 Chloride 103 mmol/L (98-107) 01/01/18 04:55 Carbon Dioxide 27.0 mmol/L (21.0-32.0) 01/01/18 04:55 Anion Gap 9 (5-15) 01/01/18 04:55 BUN 34 mg/dL (7-18) H 01/01/18 04:55 Creatinine 0.68 mg/dL (0.55-1.02) 01/01/18 04:55 Est GFR (MDRD) Af Amer 110 mL/min (>60) 01/01/18 04:55 Est GFR (MDRD) Non-Af 91 mL/min (>60) 01/01/18 04:55 BUN/Creatinine Ratio 50.1 RATIO (10-20) H 01/01/18 04:55 Glucose 82 mg/dL (74-106) 01/01/18 04:55 Vancomycin Trough 15.2 ug/mL (5.0-15.0) H 01/01/18 21:49 Random Vancomycin 15.4 ug/mL (0.0-15.0) H 12/31/17 10:45 Goal Trough: 15-20 mcg/mL Pharmacy Plan for Drug Dosing: Pharmacy Service will continue to monitor and adjust dosing as required. Medications Vancomycin HCl () 500 mg in 100 mls @ 100 mls/hr IV Q12H DRE Last Admin: 01/01/18 22:49 Dose: 100 mls/hr TROUGH 15.2 NO CHANGES NEEDED Follow-Up Labs: Trough Vancomycin Labs to be done on [date and time ordered]: 01/05 @ 2200
[2018-01-02] MEDS: hydroCHLOROthiazide 12.5mg 12.5 MG PO (06:59)
[2018-01-02] MEDS: Fluticasone/Salmeterol 232-14 Inhaler 1 PUFF IH (06:59)
[2018-01-02] MEDS: Lisinopril 10 MG Tablet PO (06:59)
[2018-01-02] MEDS: Enoxaparin 30 MG/0.3 ML Syringe SC (06:59)
[2018-01-02] MEDS: Senna/Docusate Sodium 1 Tablet 2 TABLET PO ×2 (06:59→16:43)
[2018-01-02] MEDS: Acetaminophen 500 MG Tablet 1000 MG PO ×2 (07:01→16:44)
[2018-01-02] MEDS: Menthol/Lanolin/Calamine/Znox 113 GM Tube 1 APPLIC TOPICAL ×2 (07:02→20:06)
[2018-01-02] MEDS: Nystatin Powder 15gm Bottle 1 APPLIC TOPICAL ×2 (07:02→20:06)
[2018-01-02] MEDS: Vancomycin IV 500 MG/100 ML BAG 100 MG IV ×2 (09:00→21:40)
[2018-01-02] MEDS: Iron Polysaccharide Complex 150 MG CAPSULE PO (09:00)
[2018-01-02 16:00] VITALS: BP 108/40; PULSE 78; RESP 16; TEMP 37; O2SAT 97
[2018-01-02] MEDS: MELATONIN 3 MG TABLET 6 MG PO (21:39)
[2018-01-02] MEDS: 0.9% NaCl PICC Flush IV (21:42)
[2018-01-03] MEDS: oxyCODONE 5 MG Tablet PO ×3 (02:06→22:33)
[2018-01-03] MEDS: Senna/Docusate Sodium 1 Tablet 2 TABLET PO (04:47)
[2018-01-03] MEDS: Lisinopril 10 MG Tablet PO (04:47)
[2018-01-03] MEDS: Enoxaparin 30 MG/0.3 ML Syringe SC (04:47)
[2018-01-03] MEDS: hydroCHLOROthiazide 12.5mg 12.5 MG PO (04:47)
[2018-01-03] MEDS: Fluticasone/Salmeterol 232-14 Inhaler 1 PUFF IH (04:47)
[2018-01-03] MEDS: Menthol/Lanolin/Calamine/Znox 113 GM Tube 1 APPLIC TOPICAL ×2 (04:51→21:26)
[2018-01-03] MEDS: Nystatin Powder 15gm Bottle 1 APPLIC TOPICAL ×2 (04:52→21:27)
[2018-01-03] MEDS: Iron Polysaccharide Complex 150 MG CAPSULE PO (08:28)
[2018-01-03] MEDS: Vancomycin IV 500 MG/100 ML BAG 100 MG IV ×2 (09:10→21:17)
[2018-01-03] MEDS: 0.9% NaCl PICC Flush IV ×2 (09:12→21:17)
[2018-01-03] MEDS: Acetaminophen 500 MG Tablet 1000 MG PO (09:20)
--- NOTE | 2018-01-03 14:12 | NURSING ---
1300-pt called out for br and once on commode had small emesis with bm. after vomited pt reported that feeling fine and denies any antiemetic at this time. stated, once and awhile the pain pills mess with my stomach will monitor . back to chair and no other needs
[2018-01-03 15:49] VITALS: BP 105/48; PULSE 74; RESP 22; TEMP 36.6; O2SAT 95
--- NOTE | 2018-01-03 18:17 | NURSING ---
PICC line dressing changed per sterile technique. Patient tolerated well. PICC line out by 2 cm.
[2018-01-03] MEDS: MELATONIN 3 MG TABLET 6 MG PO (21:15)
[2018-01-04] MEDS: oxyCODONE 5 MG Tablet PO ×2 (05:31→19:55)
[2018-01-04] MEDS: Lisinopril 10 MG Tablet PO (05:31)
[2018-01-04] MEDS: hydroCHLOROthiazide 12.5mg 12.5 MG PO (05:31)
[2018-01-04] MEDS: Senna/Docusate Sodium 1 Tablet 2 TABLET PO ×2 (05:31→17:45)
[2018-01-04] MEDS: Fluticasone/Salmeterol 232-14 Inhaler 1 PUFF IH (05:33)
[2018-01-04] MEDS: Enoxaparin 30 MG/0.3 ML Syringe SC (05:35)
[2018-01-04] MEDS: Menthol/Lanolin/Calamine/Znox 113 GM Tube 1 APPLIC TOPICAL ×2 (05:35→19:57)
[2018-01-04] MEDS: Nystatin Powder 15gm Bottle 1 APPLIC TOPICAL ×2 (05:35→19:57)
[2018-01-04 08:52] LABS: Absolute Lymphocyte Count 0.92 X10^3/ul (0.83-4.51); Absolute Neutrophil Count 3.1 X10^3/uL (2.0-7.7); Basophil# 0.03 X10^3/uL; Basophil% 0.5 % (0-1); Eosinophil# 0.61 X10^3/uL; Eosinophils% 11.2 % (0-5); Hematocrit 28.9 % (37-47); Hemoglobin 9.2 g/dl (12.0-15.0); Lymphocyte # 0.92 X10^3/ul (4.0); Lymphocyte % 16.8 % (19-41); Mean Corp Hgb Conc 31.8 g/gl (32-36); Mean Corpuscular Hgb 27.2 pg (27.0-32.0); Mean Corpuscular Volume 85.5 fL (81-99); Mean Platelet Vol. 8.8 fl (6.2-12.0); Monocyte# 0.75 X10^3/uL; Monocyte% 13.7 % (0-10); Neutrophil # 3.13 X10^3/uL (2.7-7.7); Neutrophil % 57.4 % (47-70); Platelet Count 295 K/mm3 (150-450); RBC Distribution Width CV 15.4 % (11.6-14.6); RBC Distribution Width SD 48.4 fl (35.1-43.9); Red Blood Count 3.38 M/mm3 (4.2-5.4); White Blood Count 5.5 K/mm3 (4.4-11.0)
[2018-01-04 08:53] LABS: POSITIVE COUNT NO; POSITIVE DIFFERENTIAL NO; POSITIVE MORPHOLOGY NO
[2018-01-04 09:08] LABS: Creatinine, Serum 0.69 mg/dL (0.55-1.02); EST Glomerular Filtration Rate 89 mL/min (>60); Est Glom Filt Rate - Afr Amer 108 mL/min (>60); Estimated Creatinine Clearance 42.68 ml/min
[2018-01-04] MEDS: 0.9% NaCl PICC Flush IV ×2 (10:39→21:51)
[2018-01-04] MEDS: Vancomycin IV 500 MG/100 ML BAG 100 MG IV ×2 (10:40→21:44)
[2018-01-04] MEDS: Hydrocortisone 2.5% Crm 1 APPLIC TOPICAL ×2 (10:41→14:16)
[2018-01-04] MEDS: Ondansetron ODT 4 MG Tablet 8 MG PO ×2 (10:45→22:19)
--- NOTE | 2018-01-04 10:51 | NURSING ---
Resident up in chair. Reports having emesis after supper last night and breakfast this AM. Still having nausea. Zofran given. Rash to back and legs noted. Will administer Hytone cream. Stephani Wound RN in room to change wound vac.
--- NOTE | 2018-01-04 13:49 | CASEMGMT ---
Insurance Clinical update submitted via secure email. Will await continued stay determination. Auth# [id number] GOOD Peñaloza
--- NOTE | 2018-01-04 13:56 | PN.ID_ITS ---
Subjective: Feeling ok, but some n/v last night and this AM. Also with new itchy red rash on legs. No fever. - Physical Exam General: Alert, Cooperative, No apparent distress Lungs: Clear to auscultation, Normal air movement Cardiovascular: Regular rate, Regular Rhythm Abdomen: Soft, Non Tender, Non-Distended Skin: Rash Present - macules on legs and lower abd Vital Signs Temp Pulse Resp BP Pulse Ox 97.9 F 74 22 H 105/48 L 95 01/03/18 15:49 01/03/18 15:49 01/03/18 15:49 01/03/18 15:49 01/03/18 15:49 Oxygen Delivery Method Room Air Weight: 76.742 kg Body Mass Index (BMI) 29.7 Intake and Output for Last 24 Hours 01/02/18 01/03/18 01/04/18 23:59 23:59 23:59 Intake Total 1200 / 1200 840 / 840 720 / 720 Balance 1200 / 1200 840 / 840 720 / 720 Laboratory Tests Past 24 Hrs 01/04/18 01/04/18 07:45 07:45 WBC 5.5 RBC 3.38 L Hgb 9.2 L Hct 28.9 L MCV 85.5 MCH 27.2 MCHC 31.8 L RDW 15.4 H RDW Differential 48.4 H Plt Count 295 MPV 8.8 Immature Gran % (Auto) 0.400 Neut % (Auto) 57.4 Lymph % (Auto) 16.8 L [place] % (Auto) 13.7 H Eos % (Auto) 11.2 H Baso % (Auto) 0.5 Absolute Neuts (auto) 3.1 Absolute Lymphs (auto) 0.92 Total Counted Not Reportable Creatinine 0.69 Estim Creat Clear Calc 42.68 Est GFR (MDRD) Af Amer 108 Est GFR (MDRD) Non-Af 89 C-React Prot Ext Range 17.80 H Medical Necessity - Tobacco Use Smoking Status: Never smoker Tobacco Use: Non-smoker Route of nutrition/ use of supplements: [] Nutritional Intake: [] IV Site: [] Painting Catheter: [] - Assessment/Plan Antibiotics: [] Assessment/Plan: [] MRSA bacteremia due to infected spine stimulator - doing well on iv vanc, will follow trough, goal 15-20. Stop date 12/4/18. Had single bcx at [facility] with enterobacter, but thought to be contaminant. Wound vac in place. New rash, trying steroid cream. Will follow
[2018-01-04 15:34] VITALS: BP 108/59; PULSE 90; RESP 16; TEMP 36.9; O2SAT 94
--- NOTE | 2018-01-04 15:45 | NURSING ---
wound photo: mid back
--- NOTE | 2018-01-04 15:46 | NURSING ---
wound photo: right upper buttock
[2018-01-04] MEDS: MELATONIN 3 MG TABLET 6 MG PO (21:51)
[2018-01-04] MEDS: hydrOXYzine PAM 25 MG Capsule 50 MG PO (23:04)
[2018-01-05] MEDS: Acetaminophen 500 MG Tablet 1000 MG PO (01:34)
[2018-01-05 05:39] VITALS: BP 78/42; PULSE 65; TEMP 36.9; O2SAT 94
--- NOTE | 2018-01-05 05:53 | NURSING ---
Patient noted to be diaphoretic. Patient's oral temperature 98.4. Patient has been c/o not feeling well and itching to her bilateral legs and back. Rash that has been getting worse has been noticed on her legs and back. BP 78/42 P 65 O[address] Welch notified. Orders given to give 1 L fluid bolus and then recheck BP.
[2018-01-05] MEDS: 0.9% Normal Saline 1,000 ML 999 ML IV (06:12)
[2018-01-05] MEDS: 0.9% NaCl PICC Flush IV ×2 (06:17→20:00)
[2018-01-05] MEDS: Senna/Docusate Sodium 1 Tablet 2 TABLET PO ×2 (06:18→16:51)
[2018-01-05] MEDS: Fluticasone/Salmeterol 232-14 Inhaler 1 PUFF IH (06:19)
[2018-01-05] MEDS: Enoxaparin 30 MG/0.3 ML Syringe SC (06:19)
[2018-01-05] MEDS: Menthol/Lanolin/Calamine/Znox 113 GM Tube 1 APPLIC TOPICAL ×2 (06:21→20:03)
[2018-01-05] MEDS: Nystatin Powder 15gm Bottle 1 APPLIC TOPICAL ×2 (06:22→20:03)
[2018-01-05 07:38] VITALS: BP 110/43; PULSE 77; TEMP 36.2; O2SAT 95
--- NOTE | 2018-01-05 09:10 | NURSING ---
holding zestril and HCTZ this AM d/t low BP per dr lorena rodriguez.
[2018-01-05] MEDS: Iron Polysaccharide Complex 150 MG CAPSULE PO (10:34)
[2018-01-05] MEDS: MethylPREDNISolone 125 MG/2 ML Vial IV (10:34)
[2018-01-05] MEDS: Hydrocortisone 2.5% Crm 1 APPLIC TOPICAL (10:40)
[2018-01-05] MEDS: hydrOXYzine PAM 25 MG Capsule 50 MG PO (10:47)
--- NOTE | 2018-01-05 11:18 | NURSING ---
dr Pandey notified of pt rash worse and c/o itching. New order to DC IV Vanc and start PO zyvox BID.
[2018-01-05] MEDS: Linezolid 600 MG Tablet PO ×2 (12:23→21:06)
[2018-01-05 15:49] VITALS: BP 116/67; PULSE 74; RESP 18; TEMP 35.9; O2SAT 97
[2018-01-05] MEDS: MELATONIN 3 MG TABLET 6 MG PO (21:06)
[2018-01-06] MEDS: oxyCODONE 5 MG Tablet PO (01:20)
[2018-01-06] MEDS: Hydrocortisone 2.5% Crm 1 APPLIC TOPICAL (04:14)
[2018-01-06 04:30] VITALS: BP 127/67; PULSE 70
[2018-01-06] MEDS: Lisinopril 10 MG Tablet PO (05:01)
[2018-01-06] MEDS: Senna/Docusate Sodium 1 Tablet 2 TABLET PO ×2 (05:01→16:41)
[2018-01-06] MEDS: Polyethylene Glycol 3350 17 GM PACKET PO (05:01)
[2018-01-06] MEDS: Menthol/Lanolin/Calamine/Znox 113 GM Tube 1 APPLIC TOPICAL ×2 (05:01→20:56)
[2018-01-06] MEDS: hydroCHLOROthiazide 12.5mg 12.5 MG PO (05:01)
[2018-01-06] MEDS: Nystatin Powder 15gm Bottle 1 APPLIC TOPICAL ×2 (05:01→20:55)
[2018-01-06] MEDS: Fluticasone/Salmeterol 232-14 Inhaler 1 PUFF IH (05:01)
[2018-01-06] MEDS: Enoxaparin 30 MG/0.3 ML Syringe SC (05:01)
[2018-01-06] MEDS: Linezolid 600 MG Tablet PO ×2 (05:01→16:41)
--- NOTE | 2018-01-06 07:54 | MDS.RN ---
Information for the mds was obtained from review of the clinical record, interview of resident, staff, and direct observation of resident's care.
--- NOTE | 2018-01-06 08:12 | PCM.TCUNOT ---
Subjective: Resident seen in room, sitting in recliner after finishing breakfast. She has rash on her trunk, thighs, legs, it is worse compared to yesterday. Appreciated Dr. Pandey input, Vancomycin changed to Linezolid. Last dose of Vancomycin 2 days ago. Vitals/I&O's: Vital Signs Temp Pulse Resp BP Pulse Ox 96.7 F L 70 18 127/67 H 97 01/05/18 15:49 01/06/18 04:30 01/05/18 15:49 01/06/18 04:30 01/05/18 15:49 Oxygen Delivery Method Room Air Weight: 78.075 kg Body Mass Index (BMI) 29.7 Intake and Output for Last 24 Hours 01/04/18 01/05/18 01/06/18 23:59 23:59 23:59 Intake Total 960 / 960 600 / 600 Balance 960 / 960 600 / 600 Past Medical History Past Medical History (Chronic Problems): Chronic Problems Chronic back pain (Chronic) Asthma (Chronic) HTN (hypertension) (Chronic) COPD (chronic obstructive pulmonary disease) (Chronic) Allergies No Known Allergies Allergy (Verified 11/29/17 18:30) Home Medications: Ambulatory Orders Medication Instructions Recorded Fluticasone/Salmeterol [Advair 1 puff INHALATION DAILY 09/28/15 250/50 Mcg Diskus] Lisinopril/Hydrochlorothiazide 1 tablet PO DAILY 01/14/16 [Zestoretic 12/04.5 Tablet] Acetaminophen [Tylenol Tablet] 650 mg PO Q6 PRN 03/24/17 Senna/Docusate Sodium [Senokot-S] 1 tablet PO DAILY 11/10/17 Ondansetron [Zofran Odt] 8 mg PO Q8H PRN PRN #10 tab 11/28/17 Benzocaine/Menthol [Cepacol Sore 1 ea PO Q2H PRN PRN 12/24/17 Throat Lozenge] Melatonin 6 mg PO QHS 12/24/17 Oxycodone [Oxyir] 5 - 10 mg PO Q6H PRN PRN 12/24/17 Polyethylene Glycol 3350 [Miralax] 17 gm PO DAILY 12/24/17 Vancomycin/0.9 % Sod Chloride 1 gm IV Q12H 12/24/17 [Vancomycin 1 G/200Ml-0.9% NaCl] Surgical History: appendectomy, cholecystectomy, herniorrhaphy, hysterectomy, total hip arthroplasty - Bilateral., total knee arthroplasty - Left., - - right knee arthroscopic surgery, left shoulder rotator cuff tear intervention, left knee arthroscopic surgery, right knee replacement, back surgery. 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: No pertinent HIGH SCHOOL MUSIC TEACHER history Lives: Spouse/ Significant Other Smoking Status: Never smoker Tobacco Use: Non-smoker Alcohol: None Drugs: None - *Family History Maternal History Items: COPD Paternal History Items: COPD, Heart Disease, Hypertension Review of Systems Constitutional: Denies: Chills, Fever, Weight Change HEENT: Denies: Head Aches, Sinus Congestion, Sinus Drainage Cardiovascular: Denies: Chest Pain, Palpitations Respiratory: Denies: Cough, Shortness of breath at rest, Sputum production Gastrointestinal: Denies: Abdominal Pain, Nausea, Vomiting Genitourinary: Denies: Dysuria Musculoskeletal: Denies: Joint Pain, Joint Tenderness Skin: Reports: Rash. Denies: Wounds Neurological: Denies: Numbness, Tingling, Focal weakness Psychiatric: Denies: Anxiety, Depression, Homicidal Ideations, Suicidal Ideations Hematologic/ Lymphatic: Denies: Easy Bruising, Easy Bleeding - Physical Exam General: Alert, Oriented x3, Cooperative HEENT: Atraumatic, PERRLA, EOMI, Normocephalic Neck: Supple, No JVD, Negative Carotid Bruits Lungs: Clear to auscultation, Normal air movement Cardiovascular: Regular rate, No murmurs Abdomen: Bowel Sounds Present, Soft, Non Tender Extremities: No edema, Capillary Refill Less than 3 Seconds Skin: No rashes, No breakdown, Rash Present - Trunk, Thighs, legs. Musculoskeletal: No Tenderness to Palpation of Joints or Extremities Neurological: Cranial nerves II-XII grossly intact Psych/Mental Status: Normal Affect, Appropriate Vital Signs Temp Pulse Resp BP Pulse Ox 96.7 F L 70 18 127/67 H 97 01/05/18 15:49 01/06/18 04:30 01/05/18 15:49 01/06/18 04:30 01/05/18 15:49 Oxygen Delivery Method Room Air Weight: 78.075 kg Body Mass Index (BMI) 29.7 Intake and Output for Last 24 Hours 01/04/18 01/05/18 01/06/18 23:59 23:59 23:59 Intake Total 960 / 960 600 / 600 Balance 960 / 960 600 / 600 Assessment/Plan All Active Problems Cellulitis (Acute) Altered mental status, unspecified (Acute) Sepsis affecting skin (Acute) Acute encephalopathy (Acute) MRSA bacteremia (Acute) Hip pain, right (Acute) Acute back pain (Acute) 72 year old female with below past medical history hospitalized for MRSA bacteremia secondary to implantable spinal cord stimulator, now removed, requiring debridement, admitted to TCU with debility, here for rehabilitation, strengthening, intravenous antibiotics, wound care, prior to discharge home with spouse. Rash - No response to Hydrocortisone 2.5% cream twice daily, She had partial response to Solu-Medrol 125MG IV yesterday, but her rash is worse today, repeat Solu-Medrol 125MG IV, add Medrol dosepak. Unfortunate to use steroids on resident being treated for MRSA bacteremia, but no other options. Stop Advair inhaler, resident feels rash worsened after inhaling Advair. MRSA/Enterococcus bacteremia - Vancomycin changed to Linezolid., followed by Dr. Pandey.
[2018-01-06] MEDS: Iron Polysaccharide Complex 150 MG CAPSULE PO (08:17)
--- NOTE | 2018-01-06 08:17 | PN_ITS ---
Subjective: Resident seen in room, sitting in recliner after finishing breakfast. She has rash on her trunk, thighs, legs, it is worse compared to yesterday. Appreciated Dr. Pandey input, Vancomycin changed to Linezolid. Last dose of Vancomycin 2 days ago. Vitals/I&O's: Vital Signs Temp Pulse Resp BP Pulse Ox 96.7 F L 70 18 127/67 H 97 01/05/18 15:49 01/06/18 04:30 01/05/18 15:49 01/06/18 04:30 01/05/18 15:49 Oxygen Delivery Method Room Air Weight: 78.075 kg Body Mass Index (BMI) 29.7 Intake and Output for Last 24 Hours 01/04/18 01/05/18 01/06/18 23:59 23:59 23:59 Intake Total 960 / 960 600 / 600 Balance 960 / 960 600 / 600 Past Medical History Past Medical History (Chronic Problems): Chronic Problems Chronic back pain (Chronic) Asthma (Chronic) HTN (hypertension) (Chronic) COPD (chronic obstructive pulmonary disease) (Chronic) Allergies No Known Allergies Allergy (Verified 11/29/17 18:30) Home Medications: Ambulatory Orders Medication Instructions Recorded Fluticasone/Salmeterol [Advair 1 puff INHALATION DAILY 09/28/15 250/50 Mcg Diskus] Lisinopril/Hydrochlorothiazide 1 tablet PO DAILY 01/14/16 [Zestoretic 12/04.5 Tablet] Acetaminophen [Tylenol Tablet] 650 mg PO Q6 PRN 03/24/17 Senna/Docusate Sodium [Senokot-S] 1 tablet PO DAILY 11/10/17 Ondansetron [Zofran Odt] 8 mg PO Q8H PRN PRN #10 tab 11/28/17 Benzocaine/Menthol [Cepacol Sore 1 ea PO Q2H PRN PRN 12/24/17 Throat Lozenge] Melatonin 6 mg PO QHS 12/24/17 Oxycodone [Oxyir] 5 - 10 mg PO Q6H PRN PRN 12/24/17 Polyethylene Glycol 3350 [Miralax] 17 gm PO DAILY 12/24/17 Vancomycin/0.9 % Sod Chloride 1 gm IV Q12H 12/24/17 [Vancomycin 1 G/200Ml-0.9% NaCl] Surgical History: appendectomy, cholecystectomy, herniorrhaphy, hysterectomy, total hip arthroplasty - Bilateral., total knee arthroplasty - Left., - - right knee arthroscopic surgery, left shoulder rotator cuff tear intervention, left knee arthroscopic surgery, right knee replacement, back surgery. Psychiatric History: No pertinent psych hx CRISIS THERAPIST History: No pertinent CRISIS THERAPIST history Lives: Spouse/ Significant Other Smoking Status: Never smoker Tobacco Use: Non-smoker Alcohol: None Drugs: None - *Family History Maternal History Items: COPD Paternal History Items: COPD, Heart Disease, Hypertension Review of Systems Constitutional: Denies: Chills, Fever, Weight Change HEENT: Denies: Head Aches, Sinus Congestion, Sinus Drainage Cardiovascular: Denies: Chest Pain, Palpitations Respiratory: Denies: Cough, Shortness of breath at rest, Sputum production Gastrointestinal: Denies: Abdominal Pain, Nausea, Vomiting Genitourinary: Denies: Dysuria Musculoskeletal: Denies: Joint Pain, Joint Tenderness Skin: Reports: Rash. Denies: Wounds Neurological: Denies: Numbness, Tingling, Focal weakness Psychiatric: Denies: Anxiety, Depression, Homicidal Ideations, Suicidal Ideations Hematologic/ Lymphatic: Denies: Easy Bruising, Easy Bleeding - Physical Exam General: Alert, Oriented x3, Cooperative HEENT: Atraumatic, PERRLA, EOMI, Normocephalic Neck: Supple, No JVD, Negative Carotid Bruits Lungs: Clear to auscultation, Normal air movement Cardiovascular: Regular rate, No murmurs Abdomen: Bowel Sounds Present, Soft, Non Tender Extremities: No edema, Capillary Refill Less than 3 Seconds Skin: No rashes, No breakdown, Rash Present - Trunk, Thighs, legs. Musculoskeletal: No Tenderness to Palpation of Joints or Extremities Neurological: Cranial nerves II-XII grossly intact Psych/Mental Status: Normal Affect, Appropriate Vital Signs Temp Pulse Resp BP Pulse Ox 96.7 F L 70 18 127/67 H 97 01/05/18 15:49 01/06/18 04:30 01/05/18 15:49 01/06/18 04:30 01/05/18 15:49 Oxygen Delivery Method Room Air Weight: 78.075 kg Body Mass Index (BMI) 29.7 Intake and Output for Last 24 Hours 01/04/18 01/05/18 01/06/18 23:59 23:59 23:59 Intake Total 960 / 960 600 / 600 Balance 960 / 960 600 / 600 Assessment/Plan All Active Problems Cellulitis (Acute) Altered mental status, unspecified (Acute) Sepsis affecting skin (Acute) Acute encephalopathy (Acute) MRSA bacteremia (Acute) Hip pain, right (Acute) Acute back pain (Acute) 72 year old female with below past medical history hospitalized for MRSA bacteremia secondary to implantable spinal cord stimulator, now removed, requiring debridement, admitted to TCU with debility, here for rehabilitation, strengthening, intravenous antibiotics, wound care, prior to discharge home with spouse. * Rash - No response to Hydrocortisone 2.5% cream twice daily, She had partial response to Solu-Medrol 125MG IV yesterday, but her rash is worse today, repeat Solu-Medrol 125MG IV, add Medrol dosepak. Unfortunate to use steroids on resident being treated for MRSA bacteremia, but no other options. Stop Advair inhaler, resident feels rash worsened after inhaling Advair. * MRSA/Enterococcus bacteremia - Vancomycin changed to Linezolid., followed by Dr. Pandey.
[2018-01-06] MEDS: MethylPREDNISolone 125 MG/2 ML Vial IV (08:55)
[2018-01-06] MEDS: 0.9% NaCl PICC Flush IV (08:55)
--- NOTE | 2018-01-06 08:59 | NURSING ---
pt reported that her rash worse again this AM after inhaler and meds. Dr Welch in to assess. New order for IV solumedrol x1 and start medrol dose silver. Pt resting in recliner chair and reports that she did have a rash from an inhaler in past but cant remember what it was. New order to DC inhaler for now.
--- NOTE | 2018-01-06 09:19 | CASEMGMT ---
Insurance Continued stay approved with next update due on 01/11/18. Auth#[id number] GOOD Easton, FIELD SALES SPECIALIST
--- NOTE | 2018-01-06 12:36 | PN.ID_ITS ---
Subjective: Vanc changed to linezolid yesterday due to itchy rash, rash improved, then worsened at 2am. Has h/o rash with inhalers in the past (Spiriva). No fever. - Physical Exam General: Alert, Cooperative, No apparent distress Lungs: Clear to auscultation, Normal air movement Cardiovascular: Regular rate, Regular Rhythm Abdomen: Soft, Non Tender, Non-Distended Skin: Rash Present - macular pruritic erythema on legs and abd Vital Signs Temp Pulse Resp BP Pulse Ox 96.7 F L 70 18 127/67 H 97 01/05/18 15:49 01/06/18 04:30 01/05/18 15:49 01/06/18 04:30 01/05/18 15:49 Oxygen Delivery Method Room Air Weight: 78.075 kg Body Mass Index (BMI) 29.7 Intake and Output for Last 24 Hours 01/04/18 01/05/18 01/06/18 23:59 23:59 23:59 Intake Total 960 / 960 600 / 600 360 / 360 Balance 960 / 960 600 / 600 360 / 360 Medical Necessity - Tobacco Use Smoking Status: Never smoker Tobacco Use: Non-smoker Route of nutrition/ use of supplements: [] Nutritional Intake: [] IV Site: [] Painting Catheter: [] - Assessment/Plan Antibiotics: [] Assessment/Plan: [] MRSA bacteremia due to infected spine stimulator - Stop date 01/26/18. Had singl e bcx at [facility] with enterobacter, but thought to be contaminant. Wound vac in place. New rash, worsened after changing vanc to po linezolid 01/05, may be related to inhaler which has had reaction to in past. Cont linezolid for now, may be able to go back to vanc. Will follow
--- NOTE | 2018-01-06 15:40 | NURSING ---
Dr Stockton from [facility] infectious disease requesting labs since pt on IV VANC. This insurance underwriter notified Dr Stockton's office regarding update that IV VAnc has been stopped by Dr Pandey d/t pt having body rash. Pt was to f/u on 01/20 @ 1300, pt hoping not to since she is seeing our I.D. doctor here. Awaiting return call. Faxed lab results with pts permission.
[2018-01-06 16:00] VITALS: BP 108/42; PULSE 84; RESP 18; TEMP 36.3; O2SAT 95
[2018-01-06] MEDS: MELATONIN 3 MG TABLET 6 MG PO (20:54)
[2018-01-07] MEDS: Senna/Docusate Sodium 1 Tablet 2 TABLET PO ×2 (05:10→16:56)
[2018-01-07] MEDS: Polyethylene Glycol 3350 17 GM PACKET PO (05:10)
[2018-01-07] MEDS: Lisinopril 10 MG Tablet PO (05:10)
[2018-01-07] MEDS: hydroCHLOROthiazide 12.5mg 12.5 MG PO (05:10)
[2018-01-07] MEDS: Enoxaparin 30 MG/0.3 ML Syringe SC (05:10)
[2018-01-07] MEDS: Linezolid 600 MG Tablet PO ×2 (05:10→20:19)
[2018-01-07] MEDS: Nystatin Powder 15gm Bottle 1 APPLIC TOPICAL ×2 (05:11→20:22)
[2018-01-07] MEDS: Menthol/Lanolin/Calamine/Znox 113 GM Tube 1 APPLIC TOPICAL ×2 (05:11→20:23)
[2018-01-07] MEDS: Iron Polysaccharide Complex 150 MG CAPSULE PO (08:07)
[2018-01-07] MEDS: MethylPREDNISolone DosePak 4 MG BOX PO ×4 (08:07→20:18)
[2018-01-07] MEDS: hydrOXYzine PAM 25 MG Capsule 50 MG PO ×3 (10:46→23:34)
[2018-01-07] MEDS: 0.9% NaCl PICC Flush IV ×2 (10:47→13:07)
--- NOTE | 2018-01-07 10:47 | PCM.PN.ID ---
Subjective: Rash much improved s/p stopping inhaler, no fever. No n/v/d. - Physical Exam General: Alert, Cooperative, No apparent distress Lungs: Clear to auscultation, Normal air movement Cardiovascular: Regular rate, Regular Rhythm Abdomen: Soft, Non Tender, Non-Distended Skin: Ulcer/ Wound - wound vac on back, Rash Present - fading macules on legs and abd. Vital Signs Temp Pulse Resp BP Pulse Ox 97.3 F L 84 18 108/42 L 95 01/06/18 16:00 01/06/18 16:00 01/06/18 16:00 01/06/18 16:00 01/06/18 16:00 Oxygen Delivery Method Room Air Weight: 78.075 kg Body Mass Index (BMI) 29.7 Intake and Output for Last 24 Hours 01/05/18 01/06/18 01/07/18 23:59 23:59 23:59 Intake Total 600 / 600 840 / 840 600 / 600 Balance 600 / 600 840 / 840 600 / 600 Medical Necessity - Tobacco Use Smoking Status: Never smoker Tobacco Use: Non-smoker Route of nutrition/ use of supplements: [] Nutritional Intake: [] IV Site: [] Painting Catheter: [] - Assessment/Plan Antibiotics: [] Assessment/Plan: [] MRSA bacteremia due to infected spine stimulator - Stop date 01/26/18. Had single bcx at [facility] with enterobacter, but thought to be contaminant. Wound vac in place. New rash, worsened after changing vanc to po linezolid 01/05, may be related to inhaler which has had reaction to in past. Will restart vanc. Stop linezolid. Will follow
--- NOTE | 2018-01-07 11:23 | PCM.RX.CS ---
Consult Pharmacy has been consulted to manage selected antiobiotic: Vancomycin Type of Consult: New start Suspected Infection: Sepsis Prior Doses of Antibiotics Received/Current Regimen: previous dose discontinued on 01/05/18 Labs: Sodium 139 mmol/L (136-145) 01/01/18 04:55 Potassium 3.8 mmol/L (3.5-5.1) 01/01/18 04:55 Chloride 103 mmol/L (98-107) 01/01/18 04:55 Carbon Dioxide 27.0 mmol/L (21.0-32.0) 01/01/18 04:55 Anion Gap 9 (5-15) 01/01/18 04:55 BUN 34 mg/dL (7-18) H 01/01/18 04:55 Creatinine 0.69 mg/dL (0.55-1.02) 01/04/18 07:45 Est GFR (MDRD) Af Amer 108 mL/min (>60) 01/04/18 07:45 Est GFR (MDRD) Non-Af 89 mL/min (>60) 01/04/18 07:45 BUN/Creatinine Ratio 50.1 RATIO (10-20) H 01/01/18 04:55 Glucose 82 mg/dL (74-106) 01/01/18 04:55 Vancomycin Trough 15.2 ug/mL (5.0-15.0) H 01/01/18 21:49 Random Vancomycin 15.4 ug/mL (0.0-15.0) H 12/31/17 10:45 Weight used for dosin kg Estimated Creatinine Clearance: 43 Goal Trough: 15-20 mcg/mL - loading dose of 25mg/kg then 500mg q12h based on previous dose/levels Pharmacy Plan for Drug Dosing: Pharmacy Service will continue to monitor and adjust dosing as required.
--- NOTE | 2018-01-07 12:02 | NURSING ---
Dr. Pandey in to see patient, NO to restart Vanco 500mg IV [id number] and check vanco trough on 01/08 at 2300.
--- NOTE | 2018-01-07 14:45 | NURSING ---
Pt called out c/o itching, red rash noted to upper back and legs, abd. Dr. Pandey and Dr. Welch notified, ordered to stop vanco. Pt denies shortness of breath.
[2018-01-07 14:55] VITALS: BP 119/59; PULSE 75; RESP 18; TEMP 36.8; O2SAT 97
[2018-01-07] MEDS: oxyCODONE 5 MG Tablet PO (16:13)
[2018-01-07] MEDS: Hydrocortisone 2.5% Crm 1 APPLIC TOPICAL (16:54)
--- NOTE | 2018-01-07 17:03 | NURSING ---
Hytone cream applied to legs, arms, back, chest and neck, pt c/o itching, rash spreading to bilat hands, pt denies shortness of breath or chest pain.
[2018-01-07] MEDS: MELATONIN 3 MG TABLET 6 MG PO (20:19)
[2018-01-07] MEDS: Ondansetron ODT 4 MG Tablet 8 MG PO (23:37)
[2018-01-07] MEDS: Acetaminophen 500 MG Tablet 1000 MG PO (23:37)
[2018-01-08 03:10] VITALS: BP 113/46; PULSE 63; RESP 18; O2SAT 97
[2018-01-08] MEDS: Linezolid 600 MG Tablet PO ×2 (05:04→16:59)
[2018-01-08] MEDS: hydroCHLOROthiazide 12.5mg 12.5 MG PO (05:04)
[2018-01-08] MEDS: Lisinopril 10 MG Tablet PO (05:04)
[2018-01-08] MEDS: Enoxaparin 30 MG/0.3 ML Syringe SC (05:04)
[2018-01-08] MEDS: Menthol/Lanolin/Calamine/Znox 113 GM Tube 1 APPLIC TOPICAL ×2 (05:11→21:36)
[2018-01-08] MEDS: Nystatin Powder 15gm Bottle 1 APPLIC TOPICAL ×2 (05:11→21:37)
[2018-01-08] MEDS: hydrOXYzine PAM 25 MG Capsule 50 MG PO ×2 (05:36→22:41)
[2018-01-08] MEDS: Hydrocortisone 2.5% Crm 1 APPLIC TOPICAL (05:38)
[2018-01-08] MEDS: 0.9% NaCl PICC Flush IV ×3 (07:18→14:41)
[2018-01-08 07:43] LABS: Absolute Lymphocyte Count 0.57 X10^3/ul (0.83-4.51); Absolute Neutrophil Count 4.1 X10^3/uL (2.0-7.7); Basophil# 0.02 X10^3/uL; Basophil% 0.4 % (0-1); Differential Indicated SCAN CRITERIA MET; Eosinophil# 0.68 X10^3/uL; Hematocrit 26.9 % (37-47); Hemoglobin 8.4 g/dl (12.0-15.0); Lymphocyte # 0.57 X10^3/ul (4.0); Mean Corp Hgb Conc 31.2 g/gl (32-36); Mean Corpuscular Hgb 26.8 pg (27.0-32.0); Mean Corpuscular Volume 85.7 fL (81-99); Mean Platelet Vol. 8.9 fl (6.2-12.0); Monocyte# 0.34 X10^3/uL; Neutrophil # 4.06 X10^3/uL (2.7-7.7); Neutrophil % 71.2 % (47-70); POSITIVE COUNT NO; POSITIVE DIFFERENTIAL YES; POSITIVE MORPHOLOGY NO; Platelet Count 292 K/mm3 (150-450); RBC Distribution Width CV 15.5 % (11.6-14.6); RBC Distribution Width SD 48.7 fl (35.1-43.9); Red Blood Count 3.14 M/mm3 (4.2-5.4); White Blood Count 5.7 K/mm3 (4.4-11.0)
[2018-01-08 07:48] LABS: Anion Gap 9 (5-15); BUN 31 mg/dL (7-18); Calcium,Total 8.5 mg/dL (8.5-10.1); Chloride 103 mmol/L (98-107); Creatinine, Serum 0.82 mg/dL (0.55-1.02); EST Glomerular Filtration Rate 73 mL/min (>60); Est Glom Filt Rate - Afr Amer 89 mL/min (>60); Estimated Creatinine Clearance 52.05 ml/min; Glucose 95 mg/dL (74-106); Potassium 4.3 mmol/L (3.5-5.1); Sodium Level 140 mmol/L (136-145)
[2018-01-08] MEDS: MethylPREDNISolone DosePak 4 MG BOX PO ×4 (08:02→21:34)
[2018-01-08] MEDS: Iron Polysaccharide Complex 150 MG CAPSULE PO (08:13)
--- NOTE | 2018-01-08 12:07 | PCM.PN.ID ---
Subjective: Worse rash and itching after vanc yesterday. Put back on linezolid. No fever. - Physical Exam General: Alert, Cooperative, No apparent distress Lungs: Clear to auscultation, Normal air movement Cardiovascular: Regular rate, Regular Rhythm Abdomen: Soft, Non Tender, Non-Distended Skin: Rash Present - diffuse itchy maculopapular erythema Vital Signs Temp Pulse Resp BP Pulse Ox 98.2 F 63 18 113/46 L 97 01/07/18 14:55 01/08/18 03:10 01/08/18 03:10 01/08/18 03:10 01/08/18 03:10 Oxygen Delivery Method Room Air Weight: 78.075 kg Body Mass Index (BMI) 29.7 Intake and Output for Last 24 Hours 01/06/18 01/07/18 01/08/18 23:59 23:59 23:59 Intake Total 840 / 840 900 / 900 360 / 360 Balance 840 / 840 900 / 900 360 / 360 Laboratory Tests Past 24 Hrs 01/08/18 01/08/18 07:15 07:15 WBC 5.7 RBC 3.14 L Hgb 8.4 L Hct 26.9 L MCV 85.7 MCH 26.8 L MCHC 31.2 L RDW 15.5 H RDW Differential 48.7 H Plt Count 292 MPV 8.9 Immature Gran % (Auto) 0.400 Neut % (Auto) 71.2 H Lymph % (Auto) 10.0 L Jay % (Auto) 6.0 Eos % (Auto) 12.0 H Baso % (Auto) 0.4 Absolute Neuts (auto) 4.1 Absolute Lymphs (auto) 0.57 L Total Counted Not Reportable Sodium 140 Potassium 4.3 Chloride 103 Carbon Dioxide 28.0 Anion Gap 9 BUN 31 H Creatinine 0.82 Estim Creat Clear Calc 52.05 Est GFR (MDRD) Af Amer 89 Est GFR (MDRD) Non-Af 73 BUN/Creatinine Ratio 38.0 H Glucose 95 Calcium 8.5 Medical Necessity - Tobacco Use Smoking Status: Never smoker Tobacco Use: Non-smoker Route of nutrition/ use of supplements: [] Nutritional Intake: [] IV Site: [] Painting Catheter: [] - Assessment/Plan Antibiotics: [] Assessment/Plan: [] MRSA bacteremia with epidural abscess due to infected spine stimulator - Stop date 01/26/18. Had single bcx at [facility] with enterobacter, but thought to be contaminant. Wound vac in place. New rash due to vanc. On po linezolid. Spoke with her ID at [facility] Dr. Stockton. She has neurosurgery appt at end of month, will order MRI of T and L-spine w/wo contrast for 01/18 to monitor spine infection. Will follow
[2018-01-08] MEDS: MethylPREDNISolone 125 MG/2 ML Vial IV (14:42)
[2018-01-08 15:58] VITALS: BP 109/56; PULSE 75; RESP 16; TEMP 36.9; O2SAT 96
[2018-01-08] MEDS: Acetaminophen 500 MG Tablet 1000 MG PO (16:57)
[2018-01-08] MEDS: MELATONIN 3 MG TABLET 6 MG PO (21:34)
[2018-01-09] MEDS: Lisinopril 10 MG Tablet PO (05:18)
[2018-01-09] MEDS: Senna/Docusate Sodium 1 Tablet 2 TABLET PO (05:18)
[2018-01-09] MEDS: Linezolid 600 MG Tablet PO ×2 (05:18→17:32)
[2018-01-09] MEDS: hydrOXYzine PAM 25 MG Capsule 50 MG PO ×3 (05:18→19:03)
[2018-01-09] MEDS: Enoxaparin 30 MG/0.3 ML Syringe SC (05:18)
[2018-01-09] MEDS: hydroCHLOROthiazide 12.5mg 12.5 MG PO (05:18)
[2018-01-09] MEDS: Menthol/Lanolin/Calamine/Znox 113 GM Tube 1 APPLIC TOPICAL ×2 (05:19→20:58)
[2018-01-09] MEDS: Nystatin Powder 15gm Bottle 1 APPLIC TOPICAL ×2 (05:19→20:58)
[2018-01-09] MEDS: Hydrocortisone 2.5% Crm 1 APPLIC TOPICAL ×2 (05:19→17:32)
[2018-01-09] MEDS: Iron Polysaccharide Complex 150 MG CAPSULE PO (08:17)
[2018-01-09] MEDS: MethylPREDNISolone DosePak 4 MG BOX PO ×4 (08:17→20:59)
[2018-01-09] MEDS: 0.9% NaCl PICC Flush IV ×2 (10:48→17:47)
[2018-01-09 15:17] VITALS: BP 143/73; PULSE 72; RESP 18; TEMP 37; O2SAT 97
[2018-01-09] MEDS: MELATONIN 3 MG TABLET 6 MG PO (20:59)
[2018-01-09] MEDS: oxyCODONE 5 MG Tablet PO (23:22)
[2018-01-10] MEDS: hydrOXYzine PAM 25 MG Capsule 50 MG PO ×2 (03:32→21:48)
[2018-01-10] MEDS: Lisinopril 10 MG Tablet PO (05:56)
[2018-01-10] MEDS: Linezolid 600 MG Tablet PO ×2 (05:56→17:02)
[2018-01-10] MEDS: hydroCHLOROthiazide 12.5mg 12.5 MG PO (05:56)
[2018-01-10] MEDS: Polyethylene Glycol 3350 17 GM PACKET PO (05:56)
[2018-01-10] MEDS: Senna/Docusate Sodium 1 Tablet 2 TABLET PO (05:56)
[2018-01-10] MEDS: Enoxaparin 30 MG/0.3 ML Syringe SC (05:57)
[2018-01-10] MEDS: Nystatin Powder 15gm Bottle 1 APPLIC TOPICAL ×2 (05:58→21:44)
[2018-01-10] MEDS: Menthol/Lanolin/Calamine/Znox 113 GM Tube 1 APPLIC TOPICAL ×2 (05:58→21:45)
[2018-01-10] MEDS: Acetaminophen 500 MG Tablet 1000 MG PO (06:01)
[2018-01-10] MEDS: MethylPREDNISolone DosePak 4 MG BOX PO ×2 (08:27→13:35)
[2018-01-10] MEDS: Iron Polysaccharide Complex 150 MG CAPSULE PO (08:27)
--- NOTE | 2018-01-10 09:28 | NURSING ---
Last evening after pt had hytone cream applied to upper thighs, arms and back, rash got worse. Dr Welch notified this AM, new order for IV solumedrol x1 and DC hytone cream
[2018-01-10] MEDS: MethylPREDNISolone 125 MG/2 ML Vial IV (10:40)
[2018-01-10] MEDS: oxyCODONE 5 MG Tablet PO ×2 (15:54→21:54)
[2018-01-10 16:00] VITALS: BP 140/67; PULSE 78; RESP 18; TEMP 35.9; O2SAT 96
[2018-01-10] MEDS: 0.9% NaCl PICC Flush IV ×2 (17:33→21:49)
[2018-01-10] MEDS: MELATONIN 3 MG TABLET 6 MG PO (21:45)
[2018-01-11] MEDS: Lisinopril 10 MG Tablet PO (06:47)
[2018-01-11] MEDS: Enoxaparin 30 MG/0.3 ML Syringe SC (06:47)
[2018-01-11] MEDS: hydroCHLOROthiazide 12.5mg 12.5 MG PO (06:47)
[2018-01-11] MEDS: Linezolid 600 MG Tablet PO ×2 (06:47→17:21)
[2018-01-11] MEDS: Nystatin Powder 15gm Bottle 1 APPLIC TOPICAL ×2 (06:48→21:22)
[2018-01-11] MEDS: Menthol/Lanolin/Calamine/Znox 113 GM Tube 1 APPLIC TOPICAL ×2 (06:49→21:22)
[2018-01-11] MEDS: 0.9% NaCl PICC Flush IV (06:51)
[2018-01-11 07:11] LABS: Absolute Lymphocyte Count 1.82 X10^3/ul (0.83-4.51); Absolute Neutrophil Count 4.9 X10^3/uL (2.0-7.7); Basophil# 0.05 X10^3/uL; Basophil% 0.6 % (0-1); Eosinophil# 0.86 X10^3/uL; Hematocrit 28.2 % (37-47); Hemoglobin 9.1 g/dl (12.0-15.0); Lymphocyte # 1.82 X10^3/ul (4.0); Lymphocyte % 21.1 % (19-41); Mean Corp Hgb Conc 32.3 g/gl (32-36); Mean Corpuscular Hgb 27.4 pg (27.0-32.0); Mean Corpuscular Volume 84.9 fL (81-99); Mean Platelet Vol. 8.2 fl (6.2-12.0); Monocyte# 0.91 X10^3/uL; Monocyte% 10.5 % (0-10); Neutrophil # 4.93 X10^3/uL (2.7-7.7); Platelet Count 291 K/mm3 (150-450); RBC Distribution Width CV 15.4 % (11.6-14.6); RBC Distribution Width SD 47.6 fl (35.1-43.9); Red Blood Count 3.32 M/mm3 (4.2-5.4); White Blood Count 8.6 K/mm3 (4.4-11.0)
[2018-01-11 07:22] LABS: POSITIVE COUNT NO; POSITIVE DIFFERENTIAL NO; POSITIVE MORPHOLOGY NO
[2018-01-11 07:34] LABS: CRP 6.73 mg/L (0.0-3.0)
[2018-01-11] MEDS: Iron Polysaccharide Complex 150 MG CAPSULE PO (09:34)
[2018-01-11] MEDS: MethylPREDNISolone DosePak 4 MG BOX PO ×2 (09:34→21:21)
--- NOTE | 2018-01-11 12:12 | CASEMGMT ---
Insurance Clinical information sent. Pending continued stay approval at this time. Auth#[id number] GOOD Easton, FRONT DESK TEAM MEMBER
--- NOTE | 2018-01-11 14:07 | PN.ID_ITS ---
Subjective: Rash and itching better, no fever, walking well with PT. - Physical Exam General: Alert, Cooperative, No apparent distress Lungs: Clear to auscultation, Normal air movement Cardiovascular: Regular rate, Regular Rhythm Abdomen: Soft, Non Tender, Non-Distended Extremities: No edema Skin: Rash Present - improving maculopapular erythema Vital Signs Temp Pulse Resp BP Pulse Ox 96.6 F L 78 18 140/67 H 96 01/10/18 16:00 01/10/18 16:00 01/10/18 16:00 01/10/18 16:00 01/10/18 16:00 Oxygen Delivery Method Room Air Weight: 78.075 kg Body Mass Index (BMI) 29.7 Intake and Output for Last 24 Hours 01/09/18 01/10/18 01/11/18 23:59 23:59 23:59 Intake Total 1080 / 1080 720 / 720 1080 / 1080 Balance 1080 / 1080 720 / 720 1080 / 1080 Laboratory Tests Past 24 Hrs 01/11/18 01/11/18 06:53 06:53 WBC 8.6 RBC 3.32 L Hgb 9.1 L Hct 28.2 L MCV 84.9 MCH 27.4 MCHC 32.3 RDW 15.4 H RDW Differential 47.6 H Plt Count 291 MPV 8.2 Immature Gran % (Auto) 0.800 Neut % (Auto) 57.0 Lymph % (Auto) 21.1 Schleicher % (Auto) 10.5 H Eos % (Auto) 10.0 H Baso % (Auto) 0.6 Absolute Neuts (auto) 4.9 Absolute Lymphs (auto) 1.82 Total Counted Not Reportable Creatinine 0.75 Estim Creat Clear Calc 42.68 Est GFR (MDRD) Af Amer 98 Est GFR (MDRD) Non-Af 81 C-React Prot Ext Range 6.73 H Medical Necessity - Tobacco Use Smoking Status: Never smoker Tobacco Use: Non-smoker Route of nutrition/ use of supplements: [] Nutritional Intake: [] IV Site: [] Painting Catheter: [] - Assessment/Plan Antibiotics: [] Assessment/Plan: [] MRSA bacteremia with epidural abscess due to infected spine stimulator - Stop date 01/26/18. Had single bcx at [facility] with enterobacter, but thought to be contaminant. Wound vac in place. New rash due to vanc. On po linezolid. Have spoken with her ID at [facility] Dr. Stockton. She has neurosurgery appt at end of month, will order MRI of T and L-spine w/wo contrast for 01/18 to monitor spine infection. Rash better. Will follow
[2018-01-11 15:27] VITALS: BP 123/55; PULSE 82; RESP 16; TEMP 36.8; O2SAT 97
--- NOTE | 2018-01-11 15:54 | NURSING ---
wound photo: mid back
--- NOTE | 2018-01-11 15:55 | NURSING ---
wound photo: right upper buttock
[2018-01-11] MEDS: Senna/Docusate Sodium 1 Tablet 2 TABLET PO (17:21)
[2018-01-11] MEDS: hydrOXYzine PAM 25 MG Capsule 50 MG PO ×2 (17:21→23:28)
[2018-01-11] MEDS: MELATONIN 3 MG TABLET 6 MG PO (21:21)
[2018-01-11 23:00] LABS: Creatinine, Serum 0.96 mg/dL (0.55-1.02); EST Glomerular Filtration Rate 61 mL/min (>60); Est Glom Filt Rate - Afr Amer 74 mL/min (>60); Estimated Creatinine Clearance 44.46 ml/min
[2018-01-12] MEDS: hydrOXYzine PAM 25 MG Capsule 50 MG PO ×2 (05:52→13:48)
[2018-01-12] MEDS: Linezolid 600 MG Tablet PO ×2 (05:52→17:47)
[2018-01-12] MEDS: Lisinopril 10 MG Tablet PO (05:52)
[2018-01-12] MEDS: hydroCHLOROthiazide 12.5mg 12.5 MG PO (05:52)
[2018-01-12] MEDS: Enoxaparin 30 MG/0.3 ML Syringe SC (05:52)
[2018-01-12] MEDS: Nystatin Powder 15gm Bottle 1 APPLIC TOPICAL ×2 (05:53→21:04)
[2018-01-12] MEDS: Menthol/Lanolin/Calamine/Znox 113 GM Tube 1 APPLIC TOPICAL ×2 (05:53→21:00)
--- NOTE | 2018-01-12 09:04 | CASEMGMT ---
Insurance Continued stay approved with next update due on 01/18/18. Auth#[id number] GOOD Easton, ACCOUNTS RECEIVABLE EXECUTIVE
[2018-01-12] MEDS: MethylPREDNISolone DosePak 4 MG BOX PO (09:15)
[2018-01-12] MEDS: Iron Polysaccharide Complex 150 MG CAPSULE PO (09:15)
[2018-01-12] MEDS: 0.9% NaCl PICC Flush IV (09:28)
[2018-01-12 09:41] VITALS: PULSE 85; RESP 18; O2SAT 96
[2018-01-12] MEDS: Acetaminophen 500 MG Tablet 1000 MG PO (13:49)
--- NOTE | 2018-01-12 14:46 | CHAPLAIN ---
Type of Pastoral Visit ___ Initial Visit _x__ Follow-up Visit ___ On-call Visit ___ General Patient Visit ___ Spiritual Assessment ___ Family Conference ___ Bereavement ___ Rapid Response ___ Code Blue ___ Other (describe below) Pastoral Care Referral From _x__ Patient ___ Family ___ Nurse ___ Physician ___ Licensed Audiologist ___ Senior Credit Analyst ___ Other (describe below) Sacrament/Intervention _x__ Active listening ___ Anointing ___ Anabaptist ___ Bereavement ___ Communion ___ Zora exploration ___ ___ Life review ___ Prayer ___ Reconciliation ___ Sacrament of Sick ___ Supportive presence ___ Wedding ___ Other (describe below) Pastoral Comments
[2018-01-12 16:00] VITALS: BP 118/62; PULSE 70; RESP 18; TEMP 36.4; O2SAT 97
[2018-01-12] MEDS: MELATONIN 3 MG TABLET 6 MG PO (21:00)
[2018-01-12] MEDS: oxyCODONE 5 MG Tablet PO (22:22)
[2018-01-13] MEDS: Enoxaparin 30 MG/0.3 ML Syringe SC (04:22)
[2018-01-13] MEDS: hydroCHLOROthiazide 12.5mg 12.5 MG PO (04:23)
[2018-01-13] MEDS: Linezolid 600 MG Tablet PO ×2 (04:23→17:43)
[2018-01-13] MEDS: Lisinopril 10 MG Tablet PO (04:24)
[2018-01-13] MEDS: oxyCODONE 5 MG Tablet PO ×2 (04:24→21:21)
[2018-01-13] MEDS: Menthol/Lanolin/Calamine/Znox 113 GM Tube 1 APPLIC TOPICAL ×2 (04:26→21:17)
[2018-01-13] MEDS: Nystatin Powder 15gm Bottle 1 APPLIC TOPICAL ×2 (04:27→21:16)
[2018-01-13] MEDS: Iron Polysaccharide Complex 150 MG CAPSULE PO (08:23)
[2018-01-13] MEDS: hydrOXYzine PAM 25 MG Capsule 50 MG PO ×4 (08:27→21:14)
--- NOTE | 2018-01-13 08:33 | NURSING ---
Addendum entered by Dianna Arpan Dominic 01/13/18 18:13: pt reported that she had an emesis after brkfst while student in room, she feels like it was alot. pt denied nausea or need for anything. just hit me all the sudden when i was talking to student No other emesis's today , doing well. rash improving somewhat. Original Note: pt c/o jitteriness this am and itching all over. Dr Welch notified, new order to restart hytone cream. Applied to back, upper thighs, and arms. Rash appears better.
--- NOTE | 2018-01-13 13:42 | PCM.PN.ID ---
Subjective: Rash overall improved, but worse today compared to yesterday. C/o itching. No fever. - Physical Exam General: Alert, Cooperative, No apparent distress Lungs: Clear to auscultation, Normal air movement Cardiovascular: Regular rate, Regular Rhythm Abdomen: Soft, Non Tender, Non-Distended Skin: Rash Present Vital Signs Temp Pulse Resp BP Pulse Ox 97.6 F L 70 18 118/62 97 01/12/18 16:00 01/12/18 16:00 01/12/18 16:00 01/12/18 16:00 01/12/18 16:00 Oxygen Delivery Method Room Air Weight: 74.503 kg Body Mass Index (BMI) 29.7 Intake and Output for Last 24 Hours 01/11/18 01/12/18 01/13/18 23:59 23:59 23:59 Intake Total 1240 / 1240 1080 / 1080 480 / 480 Balance 1240 / 1240 1080 / 1080 480 / 480 Medical Necessity - Tobacco Use Smoking Status: Never smoker Tobacco Use: Non-smoker Route of nutrition/ use of supplements: [] Nutritional Intake: [] IV Site: [] Painting Catheter: [] - Assessment/Plan Antibiotics: [] Assessment/Plan: [] MRSA bacteremia with epidural abscess due to infected spine stimulator - Stop date 01/26/18. Had single bcx at [facility] with enterobacter, but thought to be contaminant. Wound vac in place. New rash with vanc. On po linezolid. Have spoken with her ID at [facility] Dr. Stockton. She has neurosurgery appt at end of month, will order MRI of T and L-spine w/wo contrast for 01/18 to monitor spine infection. Rash better overall but worse today compared to yesterday, ? if there are other causes. Will follow
[2018-01-13 16:00] VITALS: BP 112/35; PULSE 69; RESP 18; TEMP 36.4; O2SAT 99
[2018-01-13] MEDS: 0.9% NaCl PICC Flush IV ×2 (19:04→21:15)
[2018-01-13] MEDS: MELATONIN 3 MG TABLET 6 MG PO (21:17)
[2018-01-13] MEDS: Hydrocortisone 2.5% Crm 1 APPLIC TOPICAL (21:25)
[2018-01-14] MEDS: Lisinopril 10 MG Tablet PO (06:39)
[2018-01-14] MEDS: hydroCHLOROthiazide 12.5mg 12.5 MG PO (06:39)
[2018-01-14] MEDS: Enoxaparin 30 MG/0.3 ML Syringe SC (06:39)
[2018-01-14] MEDS: Linezolid 600 MG Tablet PO ×2 (06:39→18:12)
[2018-01-14] MEDS: Nystatin Powder 15gm Bottle 1 APPLIC TOPICAL ×2 (06:45→21:04)
[2018-01-14] MEDS: Menthol/Lanolin/Calamine/Znox 113 GM Tube 1 APPLIC TOPICAL ×2 (06:45→21:04)
[2018-01-14] MEDS: hydrOXYzine PAM 25 MG Capsule 50 MG PO ×2 (08:52→18:11)
[2018-01-14] MEDS: Iron Polysaccharide Complex 150 MG CAPSULE PO (08:53)
[2018-01-14] MEDS: Ondansetron ODT 4 MG Tablet 8 MG PO (10:19)
--- NOTE | 2018-01-14 10:21 | NURSING ---
Wound vac dressing changed per order. Patient tolerated well. Dressing changed to mid back, as well.
[2018-01-14 15:40] VITALS: BP 100/55; PULSE 83; RESP 18; TEMP 36.7; O2SAT 97
[2018-01-14] MEDS: MELATONIN 3 MG TABLET 6 MG PO (21:04)
[2018-01-14] MEDS: oxyCODONE 5 MG Tablet PO (21:12)
[2018-01-15] MEDS: hydrOXYzine PAM 25 MG Capsule 50 MG PO ×3 (00:19→21:16)
[2018-01-15] MEDS: Lisinopril 10 MG Tablet PO (04:07)
[2018-01-15] MEDS: Menthol/Lanolin/Calamine/Znox 113 GM Tube 1 APPLIC TOPICAL ×2 (04:07→21:22)
[2018-01-15] MEDS: Linezolid 600 MG Tablet PO ×2 (04:07→16:46)
[2018-01-15] MEDS: hydroCHLOROthiazide 12.5mg 12.5 MG PO (04:07)
[2018-01-15] MEDS: Nystatin Powder 15gm Bottle 1 APPLIC TOPICAL ×2 (04:07→21:18)
[2018-01-15] MEDS: Enoxaparin 30 MG/0.3 ML Syringe SC (04:08)
[2018-01-15 06:23] LABS: Absolute Lymphocyte Count 1.69 X10^3/ul (0.83-4.51); Absolute Neutrophil Count 4.2 X10^3/uL (2.0-7.7); Basophil# 0.03 X10^3/uL; Basophil% 0.3 % (0-1); Eosinophil# 1.88 X10^3/uL; Eosinophils% 20.9 % (0-5); Hematocrit 25.2 % (37-47); Hemoglobin 8.1 g/dl (12.0-15.0); Lymphocyte # 1.69 X10^3/ul (4.0); Lymphocyte % 18.8 % (19-41); Mean Corp Hgb Conc 32.1 g/gl (32-36); Mean Corpuscular Hgb 27.9 pg (27.0-32.0); Mean Corpuscular Volume 86.9 fL (81-99); Mean Platelet Vol. 8.1 fl (6.2-12.0); Monocyte# 1.15 X10^3/uL; Monocyte% 12.8 % (0-10); Neutrophil # 4.19 X10^3/uL (2.7-7.7); Neutrophil % 46.5 % (47-70); Platelet Count 245 K/mm3 (150-450); RBC Distribution Width CV 15.8 % (11.6-14.6); RBC Distribution Width SD 46.9 fl (35.1-43.9)
[2018-01-15 06:24] LABS: POSITIVE COUNT NO; POSITIVE DIFFERENTIAL NO; POSITIVE MORPHOLOGY NO
[2018-01-15 06:54] LABS: Anion Gap 10 (5-15); BUN 77 mg/dL (7-18); BUN/Creat Ratio 55.8 RATIO (10-20); Calcium,Total 7.9 mg/dL (8.5-10.1); Chloride 99 mmol/L (98-107); Creatinine, Serum 1.38 mg/dL (0.55-1.02); EST Glomerular Filtration Rate 40 mL/min (>60); Est Glom Filt Rate - Afr Amer 48 mL/min (>60); Estimated Creatinine Clearance 30.93 ml/min; Glucose 89 mg/dL (74-106); Potassium 4.8 mmol/L (3.5-5.1); Sodium Level 135 mmol/L (136-145)
[2018-01-15] MEDS: Iron Polysaccharide Complex 150 MG CAPSULE PO (07:49)
[2018-01-15] MEDS: Acetaminophen 500 MG Tablet 1000 MG PO (10:34)
[2018-01-15] MEDS: Hydrocortisone 2.5% Crm 1 APPLIC TOPICAL (10:41)
[2018-01-15] MEDS: 0.9% NaCl PICC Flush IV ×2 (10:41→21:19)
[2018-01-15 16:00] VITALS: BP 103/52; PULSE 65; RESP 18; TEMP 35.8; O2SAT 99
[2018-01-15] MEDS: Senna/Docusate Sodium 1 Tablet 2 TABLET PO (16:46)
[2018-01-15] MEDS: MELATONIN 3 MG TABLET 6 MG PO (21:17)
[2018-01-15] MEDS: oxyCODONE 5 MG Tablet PO (21:17)
[2018-01-16] MEDS: hydrOXYzine PAM 25 MG Capsule 50 MG PO ×2 (03:32→10:36)
[2018-01-16] MEDS: Linezolid 600 MG Tablet PO ×2 (07:08→16:11)
[2018-01-16] MEDS: Enoxaparin 30 MG/0.3 ML Syringe SC (07:08)
[2018-01-16] MEDS: Senna/Docusate Sodium 1 Tablet 2 TABLET PO ×2 (07:08→16:11)
[2018-01-16] MEDS: Nystatin Powder 15gm Bottle 1 APPLIC TOPICAL ×2 (07:09→20:46)
[2018-01-16] MEDS: Menthol/Lanolin/Calamine/Znox 113 GM Tube 1 APPLIC TOPICAL ×2 (07:10→20:45)
[2018-01-16] MEDS: Iron Polysaccharide Complex 150 MG CAPSULE PO (07:56)
[2018-01-16] MEDS: oxyCODONE 5 MG Tablet PO (10:35)
[2018-01-16 16:00] VITALS: BP 105/67; PULSE 80; RESP 16; TEMP 36.8; O2SAT 96
[2018-01-16] MEDS: DiphenhydrAMINE 25 MG Capsule 50 MG PO ×2 (16:10→23:55)
[2018-01-16] MEDS: MELATONIN 3 MG TABLET 6 MG PO (20:45)
[2018-01-16] MEDS: 0.9% NaCl PICC Flush IV (20:52)
[2018-01-17] MEDS: Linezolid 600 MG Tablet PO ×2 (06:22→16:38)
[2018-01-17] MEDS: Senna/Docusate Sodium 1 Tablet 2 TABLET PO (06:22)
[2018-01-17] MEDS: Enoxaparin 30 MG/0.3 ML Syringe SC (06:23)
[2018-01-17] MEDS: Nystatin Powder 15gm Bottle 1 APPLIC TOPICAL ×2 (06:24→21:02)
[2018-01-17] MEDS: Menthol/Lanolin/Calamine/Znox 113 GM Tube 1 APPLIC TOPICAL ×2 (06:26→21:03)
[2018-01-17] MEDS: Iron Polysaccharide Complex 150 MG CAPSULE PO (07:38)
[2018-01-17 08:19] LABS: Anion Gap 8 (5-15); BUN 47 mg/dL (7-18); BUN/Creat Ratio 53.8 RATIO (10-20); Calcium,Total 8.5 mg/dL (8.5-10.1); Chloride 105 mmol/L (98-107); Creatinine, Serum 0.87 mg/dL (0.55-1.02); EST Glomerular Filtration Rate 68 mL/min (>60); Est Glom Filt Rate - Afr Amer 82 mL/min (>60); Estimated Creatinine Clearance 49.06 ml/min; Glucose 90 mg/dL (74-106); Potassium 4.1 mmol/L (3.5-5.1); Sodium Level 140 mmol/L (136-145)
[2018-01-17 15:30] VITALS: BP 127/70; PULSE 78; RESP 16; TEMP 36.9; O2SAT 99
[2018-01-17] MEDS: MELATONIN 3 MG TABLET 6 MG PO (21:00)
[2018-01-17] MEDS: Ondansetron ODT 4 MG Tablet 8 MG PO (21:01)
[2018-01-17] MEDS: DiphenhydrAMINE 25 MG Capsule 50 MG PO (22:31)
[2018-01-18] MEDS: 0.9% NaCl PICC Flush IV ×2 (05:30→12:07)
[2018-01-18] MEDS: Linezolid 600 MG Tablet PO ×2 (05:55→17:35)
[2018-01-18] MEDS: Enoxaparin 30 MG/0.3 ML Syringe SC (05:55)
[2018-01-18] MEDS: Nystatin Powder 15gm Bottle 1 APPLIC TOPICAL ×2 (05:57→21:46)
[2018-01-18] MEDS: Menthol/Lanolin/Calamine/Znox 113 GM Tube 1 APPLIC TOPICAL ×2 (05:58→21:45)
[2018-01-18 06:18] LABS: Absolute Lymphocyte Count 1.24 X10^3/ul (0.83-4.51); Absolute Neutrophil Count 2.3 X10^3/uL (2.0-7.7); Basophil# 0.05 X10^3/uL; Basophil% 0.8 % (0-1); Eosinophils% 27.6 % (0-5); Lymphocyte # 1.24 X10^3/ul (4.0); Lymphocyte % 20.1 % (19-41); Mean Corpuscular Hgb 27.3 pg (27.0-32.0); Mean Corpuscular Volume 85.3 fL (81-99); Monocyte# 0.82 X10^3/uL; Monocyte% 13.3 % (0-10); Neutrophil # 2.33 X10^3/uL (2.7-7.7); Neutrophil % 37.9 % (47-70); Platelet Count 166 K/mm3 (150-450); RBC Distribution Width CV 16.6 % (11.6-14.6); RBC Distribution Width SD 49.3 fl (35.1-43.9); Red Blood Count 2.93 M/mm3 (4.2-5.4); White Blood Count 6.2 K/mm3 (4.4-11.0)
[2018-01-18 06:33] LABS: Creatinine, Serum 0.78 mg/dL (0.55-1.02); EST Glomerular Filtration Rate 77 mL/min (>60); Est Glom Filt Rate - Afr Amer 93 mL/min (>60); Estimated Creatinine Clearance 42.68 ml/min
[2018-01-18 06:38] LABS: POSITIVE COUNT NO; POSITIVE DIFFERENTIAL NO; POSITIVE MORPHOLOGY NO
[2018-01-18] MEDS: Iron Polysaccharide Complex 150 MG CAPSULE PO (08:48)
--- NOTE | 2018-01-18 11:00 | CASEMGMT ---
Insurance Clinical information sent. Pending continued stay approval. Auth#[id number] GOOD Easton, MARSHMALLOW MACHINE OPERATOR
--- NOTE | 2018-01-18 11:09 | NURSING ---
wound photo: mid back
--- NOTE | 2018-01-18 11:10 | NURSING ---
wound photo: right upper buttock
[2018-01-18 15:11] VITALS: BP 117/54; PULSE 81; RESP 16; TEMP 35.9; O2SAT 99
--- NOTE | 2018-01-18 16:39 | PCM.PN.ID ---
Subjective: Feeling better, rash improved, but now some on her feet. No fever. - Physical Exam General: Alert, Cooperative, No apparent distress Lungs: Clear to auscultation, Normal air movement Cardiovascular: Regular rate, Regular Rhythm Abdomen: Bowel Sounds Present, Soft, Non Tender, Non-Distended Skin: Ulcer/ Wound - improving, Rash Present - much better Vital Signs Temp Pulse Resp BP Pulse Ox 96.6 F L 81 16 117/54 L 99 01/18/18 15:11 01/18/18 15:11 01/18/18 15:11 01/18/18 15:11 01/18/18 15:11 Oxygen Delivery Method Room Air Weight: 74.503 kg Body Mass Index (BMI) 29.7 Intake and Output for Last 24 Hours 01/16/18 01/17/18 01/18/18 23:59 23:59 23:59 Intake Total 1020 / 1020 240 / 240 240 / 240 Balance 1020 / 1020 240 / 240 240 / 240 Laboratory Tests Past 24 Hrs 01/18/18 01/18/18 06:00 06:00 WBC 6.2 RBC 2.93 L Hgb 8.0 L Hct 25.0 L MCV 85.3 MCH 27.3 MCHC 32.0 RDW 16.6 H RDW Differential 49.3 H Plt Count 166 MPV 8.0 Immature Gran % (Auto) 0.300 Neut % (Auto) 37.9 L Lymph % (Auto) 20.1 Sandoval % (Auto) 13.3 H Eos % (Auto) 27.6 H Baso % (Auto) 0.8 Absolute Neuts (auto) 2.3 Absolute Lymphs (auto) 1.24 Total Counted Not Reportable Creatinine 0.78 Estim Creat Clear Calc 42.68 Est GFR (MDRD) Af Amer 93 Est GFR (MDRD) Non-Af 77 C-React Prot Ext Range 13.10 H Medical Necessity - Tobacco Use Smoking Status: Never smoker Tobacco Use: Non-smoker Route of nutrition/ use of supplements: [] Nutritional Intake: [] IV Site: [] Painting Catheter: [] - Assessment/Plan Antibiotics: [] Assessment/Plan: [] MRSA bacteremia with epidural abscess due to infected spine stimulator - Stop date 01/26/18. Had single bcx at [facility] with enterobacter, but thought to be contaminant. Wound vac in place. New rash with vanc. On po linezolid. Have spoken with her ID at [facility] Dr. Stockton. Pending MRI of T and L-spine w/wo contrast for 01/18 to monitor spine infection. Spoke with insurance company for approval. Rash better overall. Will follow
[2018-01-18] MEDS: Senna/Docusate Sodium 1 Tablet 2 TABLET PO (17:35)
[2018-01-18] MEDS: MELATONIN 3 MG TABLET 6 MG PO (21:47)
[2018-01-18] MEDS: DiphenhydrAMINE 25 MG Capsule 50 MG PO (21:59)
[2018-01-19] MEDS: oxyCODONE 5 MG Tablet PO ×3 (01:38→23:33)
[2018-01-19] MEDS: Enoxaparin 30 MG/0.3 ML Syringe SC (06:18)
[2018-01-19] MEDS: Linezolid 600 MG Tablet PO ×2 (06:18→17:12)
[2018-01-19] MEDS: Nystatin Powder 15gm Bottle 1 APPLIC TOPICAL ×2 (06:18→20:11)
[2018-01-19] MEDS: Senna/Docusate Sodium 1 Tablet 2 TABLET PO ×2 (06:18→17:12)
[2018-01-19] MEDS: Menthol/Lanolin/Calamine/Znox 113 GM Tube 1 APPLIC TOPICAL ×2 (06:18→20:10)
[2018-01-19] MEDS: Iron Polysaccharide Complex 150 MG CAPSULE PO (08:23)
[2018-01-19] MEDS: 0.9% NaCl PICC Flush IV ×2 (09:32→20:19)
[2018-01-19 15:28] VITALS: BP 133/50; PULSE 78; RESP 16; TEMP 36.2; O2SAT 99
--- NOTE | 2018-01-19 16:55 | CASEMGMT ---
Insurance Continued stay approved with next update due on 01/21/18. Auth#[id number] GOOD Easton, DIRECTOR CHILD
[2018-01-19] MEDS: MELATONIN 3 MG TABLET 6 MG PO (20:10)
[2018-01-19] MEDS: DiphenhydrAMINE 25 MG Capsule 50 MG PO (20:18)
[2018-01-19] MEDS: Acetaminophen 500 MG Tablet 1000 MG PO (20:18)
[2018-01-20] MEDS: Linezolid 600 MG Tablet PO ×2 (05:36→17:03)
[2018-01-20] MEDS: Senna/Docusate Sodium 1 Tablet 2 TABLET PO ×2 (05:36→17:02)
[2018-01-20] MEDS: Menthol/Lanolin/Calamine/Znox 113 GM Tube 1 APPLIC TOPICAL ×2 (05:36→21:41)
[2018-01-20] MEDS: Enoxaparin 30 MG/0.3 ML Syringe SC (05:36)
[2018-01-20] MEDS: Nystatin Powder 15gm Bottle 1 APPLIC TOPICAL ×2 (05:37→21:41)
[2018-01-20] MEDS: oxyCODONE 5 MG Tablet PO (05:39)
[2018-01-20] MEDS: 0.9% NaCl PICC Flush IV (10:32)
[2018-01-20] MEDS: Ondansetron ODT 4 MG Tablet 8 MG PO (10:41)
--- NOTE | 2018-01-20 13:04 | NURSING ---
Addendum entered by Radha De La Cruz 01/20/18 16:36: Called Dr. Stockton's office again and spoke with nurse, MRI results faxed to Dr. Stockton's office, awaiting call back. Original Note: Per Dr. Pandey, MRI results shows abcess and wants pt to see surgeon at [facility] again. Pt tearful, states she wants this done sooner rather than later. Daughter here and updated, in room. Message left with Dr. Stockton's nurse, waiting call back.
--- NOTE | 2018-01-20 14:18 | PCM.PN.ID ---
Subjective: Feeling ok, no new weakness, pain, fever. Rash/itching much better. - Physical Exam General: Alert, Cooperative, No apparent distress Lungs: Clear to auscultation, Normal air movement Cardiovascular: Regular rate, Regular Rhythm Abdomen: Soft, Non Tender, Non-Distended Skin: Ulcer/ Wound - much improved on back Vital Signs Temp Pulse Resp BP Pulse Ox 97.1 F L 78 16 133/50 H 99 01/19/18 15:28 01/19/18 15:28 01/19/18 15:28 01/19/18 15:28 01/19/18 15:28 Oxygen Delivery Method Room Air Weight: 79.01 kg Body Mass Index (BMI) 29.7 Intake and Output for Last 24 Hours 01/18/18 01/19/18 01/20/18 23:59 23:59 23:59 Intake Total 540 / 540 840 / 840 240 / 240 Balance 540 / 540 840 / 840 240 / 240 Medical Necessity - Tobacco Use Smoking Status: Never smoker Tobacco Use: Non-smoker Route of nutrition/ use of supplements: [] Nutritional Intake: [] IV Site: [] Painting Catheter: [] - Assessment/Plan Antibiotics: [] Assessment/Plan: [] MRSA bacteremia with epidural abscess due to infected spine stimulator - Stop date was planned 01/26/18. Had single bcx at [facility] with enterobacter, but thought to be contaminant. Wound vac in place. New rash with vanc; detergent on sheets/clothes seems like it was also contributing. On po linezolid. MRI of T and L-spine w/wo contrast for 01/13 showed enlarged T1-3 epidural abscess. Contacting [facility] about need for surgical eval. Will follow, d/w nursing.
[2018-01-20 15:57] VITALS: BP 144/48; PULSE 83; RESP 16; TEMP 36.6; O2SAT 99
--- NOTE | 2018-01-20 15:59 | CASEMGMT ---
Social Work Met with resident in room for emotional support. Resident tearful due to outcomes of MRI and the unknown at this time. Active listening and support provided for resident. Resident thanked this rn social services. Will continue to follow as needed. Kim Simental, DATABASE ADMINISTRATION ASSOCIATE, RETAIL BEAUTY SPECIALIST
[2018-01-20] MEDS: MELATONIN 3 MG TABLET 6 MG PO (21:40)
[2018-01-21] MEDS: oxyCODONE 5 MG Tablet PO ×3 (01:24→21:54)
[2018-01-21] MEDS: Acetaminophen 500 MG Tablet 1000 MG PO (06:23)
[2018-01-21] MEDS: Enoxaparin 30 MG/0.3 ML Syringe SC (06:23)
[2018-01-21] MEDS: Nystatin Powder 15gm Bottle 1 APPLIC TOPICAL ×2 (06:23→21:55)
[2018-01-21] MEDS: Senna/Docusate Sodium 1 Tablet 2 TABLET PO ×2 (06:23→15:56)
[2018-01-21] MEDS: Linezolid 600 MG Tablet PO ×2 (06:23→15:56)
[2018-01-21] MEDS: Menthol/Lanolin/Calamine/Znox 113 GM Tube 1 APPLIC TOPICAL ×2 (06:24→21:55)
[2018-01-21] MEDS: Iron Polysaccharide Complex 150 MG CAPSULE PO (07:54)
--- NOTE | 2018-01-21 09:43 | NURSING ---
Dr. Stockton's office called, received call back from them. Per Dr. Stockton, we are to contact Dr. Vergara' office. Dr. Vergara office called, and MRI results faxed to them at this time. Awaiting response.
--- NOTE | 2018-01-21 09:57 | CASEMGMT ---
Insurance Clinical information sent. Pending continued stay approval at this time. Auth#[id number] GOOD Easton, SCENE PAINTER
--- NOTE | 2018-01-21 10:28 | PCM.PN.ID ---
Subjective: Anxious about surgical plan. No new pain or weakness. No fever. - Physical Exam General: Alert, Cooperative, No apparent distress Lungs: Clear to auscultation, Normal air movement Cardiovascular: Regular rate, Regular Rhythm Abdomen: Soft, Non Tender, Non-Distended Skin: Ulcer/ Wound - healing well Vital Signs Temp Pulse Resp BP Pulse Ox 97.8 F 83 16 144/48 H 99 01/20/18 15:57 01/20/18 15:57 01/20/18 15:57 01/20/18 15:57 01/20/18 15:57 Oxygen Delivery Method Room Air Weight: 79.01 kg Body Mass Index (BMI) 29.7 Intake and Output for Last 24 Hours 01/19/18 01/20/18 01/21/18 23:59 23:59 23:59 Intake Total 840 / 840 480 / 480 240 / 240 Balance 840 / 840 480 / 480 240 / 240 Medical Necessity - Tobacco Use Smoking Status: Never smoker Tobacco Use: Non-smoker Route of nutrition/ use of supplements: [] Nutritional Intake: [] IV Site: [] Painting Catheter: [] - Assessment/Plan Antibiotics: [] Assessment/Plan: [] MRSA bacteremia with epidural abscess due to infected spine stimulator - Stop date was planned 01/26/18. Had single bcx at [facility] with enterobacter, but thought to be contaminant. Wound vac in place. New rash with vanc; detergent on sheets/clothes seems like it was also contributing, now resolved. On po linezolid. MRI of T and L-spine w/wo contrast for 01/13 showed enlarged T1-3 epidural abscess. Contacting [facility] about need for surgical eval; surgeon's office is reviewing images. Will follow, d/w nursing.
[2018-01-21] MEDS: 0.9% NaCl PICC Flush IV ×2 (13:08→21:53)
[2018-01-21 15:13] VITALS: BP 141/66; PULSE 96; RESP 28; TEMP 36.9; O2SAT 96
[2018-01-21] MEDS: MELATONIN 3 MG TABLET 6 MG PO (21:53)
[2018-01-22] MEDS: Senna/Docusate Sodium 1 Tablet 2 TABLET PO (05:53)
[2018-01-22] MEDS: Enoxaparin 30 MG/0.3 ML Syringe SC (05:53)
[2018-01-22] MEDS: Linezolid 600 MG Tablet PO ×2 (05:53→17:23)
[2018-01-22] MEDS: Acetaminophen 500 MG Tablet 1000 MG PO (05:59)
[2018-01-22] MEDS: Nystatin Powder 15gm Bottle 1 APPLIC TOPICAL ×2 (06:01→20:31)
[2018-01-22] MEDS: Menthol/Lanolin/Calamine/Znox 113 GM Tube 1 APPLIC TOPICAL ×2 (06:01→20:32)
[2018-01-22] MEDS: Iron Polysaccharide Complex 150 MG CAPSULE PO (07:58)
[2018-01-22] MEDS: oxyCODONE 5 MG Tablet PO (12:38)
--- NOTE | 2018-01-22 13:04 | PN.ID_ITS ---
Subjective: No new weakness, fever, back pain. - Physical Exam General: Alert, Cooperative, No apparent distress Lungs: Clear to auscultation, Normal air movement Cardiovascular: Regular rate, Regular Rhythm Abdomen: Soft, Non Tender, Non-Distended Skin: No rashes Vital Signs Temp Pulse Resp BP Pulse Ox 98.4 F 96 28 H 141/66 H 96 01/21/18 15:13 01/21/18 15:13 01/21/18 15:13 01/21/18 15:13 01/21/18 15:13 Oxygen Delivery Method Room Air Weight: 79.01 kg Body Mass Index (BMI) 29.7 Intake and Output for Last 24 Hours 01/20/18 01/21/18 01/22/18 23:59 23:59 23:59 Intake Total 480 / 480 780 / 780 720 / 720 Balance 480 / 480 780 / 780 720 / 720 Medical Necessity - Tobacco Use Smoking Status: Never smoker Tobacco Use: Non-smoker Route of nutrition/ use of supplements: [] Nutritional Intake: [] IV Site: [] Painting Catheter: [] - Assessment/Plan Antibiotics: [] Assessment/Plan: [] MRSA bacteremia with epidural abscess due to infected spine stimulator - Stop date was planned 01/26/18. Had single bcx at [facility] with enterobacter, but thought to be contaminant. Wound vac in place. New rash with vanc; detergent on sheets/clothes seems like it was also contributing, now resolved. On po linezolid. MRI of T and L-spine w/wo contrast for 01/13 showed enlarged T1-3 epidural abscess. Sees ID Dr. Stockton at [facility] on 01/26/18. Likely will need admission at that point for drainage of abscess. Will follow, d/w nursing.
--- NOTE | 2018-01-22 15:06 | CASEMGMT ---
Insurance Continued stay denied with last cover day begin 01/25/18 and resident to discharge or financial responsibility to begin on 01/26/18. Auth#[id number] GOOD Easton, PERFUSIONIST
--- NOTE | 2018-01-22 15:11 | NURSING ---
Addendum entered by Renetta Gallegos 01/22/18 16:13: R' LESS ANXIOUS AT THIS TIME. DENIES FURTHER N/V. Original Note: R' ANXIOUS T/O DAY ABOUT UPCOMING APPT/PROCEDURE. ASKED TO SPEAK WITH HEARING CARE PRACTITIONER. HEARING CARE PRACTITIONER SPOKE WITH R', SHE BECAME INCREASINGLY ANXIOUS AND HAD LARGE AMOUNT OF EMESIS. DR. ÁLVAREZ IN TO SEE. ORDERED ATIVAN AND ZOFRAN PRN. CRACKER/SPRITE GIVEN AT THIS TIME. 1:1 EMOTIONAL SUPPORT GIVEN. WILL CONTINUE TO ENCOURAGE AND MONITOR.
[2018-01-22] MEDS: LORazepam 0.5 MG Tablet PO (15:17)
[2018-01-22] MEDS: Ondansetron ODT 4 MG Tablet 8 MG PO (15:17)
[2018-01-22] MEDS: 0.9% NaCl PICC Flush IV (15:19)
[2018-01-22 15:27] VITALS: BP 137/65; PULSE 81; RESP 18; TEMP 36; O2SAT 96
--- NOTE | 2018-01-22 15:29 | DCINST_ITS ---
You will use the following diet at home:: No restrictions, Regular Your food should be the consistency of: Regular Your liquids should be the consistency of: Regular/Thin Discharge Activity: Return to Normal Activity, May Shower, Use Walker Weight Bearing Status: Weight bearing as tolerated Call your doctor if you observe: Fever of 101 or Higher, Inability to urinate, Inability to have a bowel movement, Shortness of breath, Chest pain, Uncontrolled pain Allergies/Adverse Reactions: Allergies vancomycin Allergy (Verified 01/08/18 07:40) Rash Medications to take at Discharge Melatonin 6 mg PO QHS 12/24/17 Oxycodone [Oxyir] 5 - 10 mg PO Q6H PRN PRN 12/24/17 Acetaminophen [Tylenol] 1,000 mg PO Q6H PRN PRN tablet 01/22/18 Hydrocortisone 2.5% Crm [Hytone] 1 applic TOPICAL TID PRN PRN #1 tube 01/22/18 Iron Polysaccharide Complex [Ferrex 150] 150 mg PO DAILYCM #30 capsule 01/22/18 Lorazepam [Ativan] 0.5 mg PO Q6H PRN PRN #60 tab 01/22/18 Menthol/Lanolin/Calamine/Znox [Calmoseptine Ointment] 1 applic TOPICAL BID@0600,2200 #0 tube 01/22/18 Mineral Oil/Petrolatum,White [Eucerin] 1 applic TOPICAL 2200 jar 01/22/18 Nutritional Supplement [Rubén - ORANGE FLAVOR] 1 packet PO BIDCM #60 packet 01/22/18 Nystatin Powder [Mycostatin Powder] 1 applic TOPICAL 0600,2200 bottle 01/22/18 Ondansetron [Zofran Odt] 8 mg PO Q8H PRN PRN #30 tab 01/22/18 Oxycodone [Oxyir] 5 - 10 mg PO Q6H PRN PRN 5 Days #30 tab 01/22/18 Polyethylene Glycol 3350 [Miralax] 17 gm PO DAILY #30 packet 01/22/18 The following prescriptions were given: Lorazepam [Ativan] 0.5 mg PO Q6H PRN PRN #60 tab PRN Reason: ANXIETY Oxycodone [Oxyir] 5 - 10 mg PO Q6H PRN PRN 5 Days #30 tab PRN Reason: Severe Pain (6-10/10) Ondansetron [Zofran Odt] 8 mg PO Q8H PRN PRN #30 tab PRN Reason: Nausea Hydrocortisone 2.5% Crm [Hytone] 1 applic TOPICAL TID PRN PRN #1 tube PRN Reason: Itching Iron Polysaccharide Complex [Ferrex 150] 150 mg PO DAILYCM #30 capsule Polyethylene Glycol 3350 [Miralax] 17 gm PO DAILY #30 packet Nutritional Supplement [Rubén - ORANGE FLAVOR] 1 packet PO BIDCM #60 packet Primary Care Physician: Ellie Daigle MD [Primary Care Provider] - Please follow up with your Primary Care Physician in: 1 week. Test Results: Test results from this visit will be discussed in further detail at your follow- up appointment, if applicable. Please Follow Up With: [facility] When: [phone] Please Follow Up With: Logan Pandey MD When: [phone] Please Follow Up With: Chio Stockton When: 01/26/2018, 1:00PM. Proposed Discharge Date: 12/27/17
--- NOTE | 2018-01-22 15:29 | PCM.DC.SUM ---
Discharge Date and Diagnosis Date of Admission: 12/24/17 Date of Discharge: 01/26/18 - Secondary Discharge Diagnosis Chronic Problems Chronic back pain (Chronic) Asthma (Chronic) HTN (hypertension) (Chronic) COPD (chronic obstructive pulmonary disease) (Chronic) Hospital Course and Treatment Imaging Results: 12/24/17 12:59 Diet: Regular Diet Diet Comments: ensure pudding one meal a day Consultations 12/24/17 Consult: Onc/Wound/mailroom personnel Routine Comment: wound vac to back Operations: None Procedures: None Summary of Care Provided: The patient is a 72 year old Female with below past medical history hospitalized for MRSA bacteremia secondary to implantable spinal cord stimulator, now removed, requiring debridement, admitted to TCU with debility, here for rehabilitation, strengthening, intravenous antibiotics, wound care, prior to discharge home with spouse. MRI of T and L-spine w/wo contrast for 01/13 showed enlarged T1-3 epidural abscess. Sees ID Dr. Stockton at [facility] on 01/26/18. Likely will need admission at that point for drainage of abscess. Discharge home with spouse, and Home Health Services. - Physical Exam Vital Signs Temp Pulse Resp BP Pulse Ox 96.8 F L 81 18 137/65 H 96 01/22/18 15:27 01/22/18 15:27 01/22/18 15:27 01/22/18 15:27 01/22/18 15:27 Oxygen Delivery Method Room Air Weight: 79.01 kg Body Mass Index (BMI) 29.7 Intake and Output for Last 24 Hours 01/20/18 01/21/18 01/22/18 23:59 23:59 23:59 Intake Total 480 / 480 780 / 780 720 / 720 Balance 480 / 480 780 / 780 720 / 720 Discharge Diet: No Restrictions Discharge Activity: Return to Normal Activity, May Shower, Use Walker Weight Bearing Status: Weight bearing as tolerated Call your doctor if you observe: Fever of 101 or Higher, Inability to urinate, Inability to have a bowel movement, Shortness of breath, Chest pain, Uncontrolled pain Home Medications: Medications to take at Discharge Melatonin 6 mg PO QHS 12/24/17 Oxycodone [Oxyir] 5 - 10 mg PO Q6H PRN PRN 12/24/17 Acetaminophen [Tylenol] 1,000 mg PO Q6H PRN PRN tablet 01/22/18 Hydrocortisone 2.5% Crm [Hytone] 1 applic TOPICAL TID PRN PRN #1 tube 01/22/18 Iron Polysaccharide Complex [Ferrex 150] 150 mg PO DAILYCM #30 capsule 01/22/18 Lorazepam [Ativan] 0.5 mg PO Q6H PRN PRN #60 tab 01/22/18 Menthol/Lanolin/Calamine/Znox [Calmoseptine Ointment] 1 applic TOPICAL BID@0600,2200 #0 tube 01/22/18 Mineral Oil/Petrolatum,White [Eucerin] 1 applic TOPICAL 2200 jar 01/22/18 Nutritional Supplement [Rubén - ORANGE FLAVOR] 1 packet PO BIDCM #60 packet 01/22/18 Nystatin Powder [Mycostatin Powder] 1 applic TOPICAL 0600,2200 bottle 01/22/18 Ondansetron [Zofran Odt] 8 mg PO Q8H PRN PRN #30 tab 01/22/18 Oxycodone [Oxyir] 5 - 10 mg PO Q6H PRN PRN 5 Days #30 tab 01/22/18 Polyethylene Glycol 3350 [Miralax] 17 gm PO DAILY #30 packet 01/22/18 Following Prescrptions Were Given to Patient: Lorazepam [Ativan] 0.5 mg PO Q6H PRN PRN #60 tab PRN Reason: ANXIETY Oxycodone [Oxyir] 5 - 10 mg PO Q6H PRN PRN 5 Days #30 tab PRN Reason: Severe Pain (6-10/10) Ondansetron [Zofran Odt] 8 mg PO Q8H PRN PRN #30 tab PRN Reason: Nausea Hydrocortisone 2.5% Crm [Hytone] 1 applic TOPICAL TID PRN PRN #1 tube PRN Reason: Itching Iron Polysaccharide Complex [Ferrex 150] 150 mg PO DAILYCM #30 capsule Polyethylene Glycol 3350 [Miralax] 17 gm PO DAILY #30 packet Nutritional Supplement [Rubén - ORANGE FLAVOR] 1 packet PO BIDCM #60 packet Primary Care Physician: Ellie Daigle MD [Primary Care Provider] - Please follow up with your Primary Care Physician in: 1 week. Please Follow Up With: [facility] When: [phone] Please Follow Up With: Logan Pandey MD When: [phone] Please Follow Up With: Chio Stockton When: 01/26/2018, 1:00PM. Medical Necessity - Tobacco Use Smoking Status: Never smoker Tobacco Use: Non-smoker Meaningful Use Info Meaningful Use Diagnoses (Choose all that apply): None applicable
--- NOTE | 2018-01-22 15:32 | PCM.PN.HH ---
Home Health Note - Plan Overview of reason of hospitalization: The patient is a 72 year old Female with below past medical history hospitalized for MRSA bacteremia secondary to implantable spinal cord stimulator, now removed, requiring debridement, admitted to TCU with debility, here for rehabilitation, strengthening, intravenous antibiotics, wound care, prior to discharge home with spouse. MRI of T and L-spine w/wo contrast for 01/13 showed enlarged T1-3 epidural abscess. Sees ID Dr. Stockton at [facility] on 01/26/18. Likely will need admission at that point for drainage of abscess. Discharge home with spouse, and Home Health Services. Problems: Complete List of Medical Problems Cellulitis (Acute) Altered mental status, unspecified (Acute) Sepsis affecting skin (Acute) Acute encephalopathy (Acute) MRSA bacteremia (Acute) Hip pain, right (Acute) Acute back pain (Acute) Chronic back pain (Chronic) Asthma (Chronic) HTN (hypertension) (Chronic) COPD (chronic obstructive pulmonary disease) (Chronic) - Requirements and Reasons Disciplines Needed/Ordered: Residential Reason for Disciplines: Disease Specific Monitoring/education, Medication Management/Knowledge Deficit, Wound Care Related To: Limited/Poor Endurance, Fall Risk Patient is unable to leave the home: Without Aid of Supportive Devices (crutches, cane, wheelchair, walker), Without the assistance of another person
--- NOTE | 2018-01-22 16:28 | CASEMGMT ---
Social Work Spoke with resident in room. This social insurance analyst communicating to resident that continued stay has been denied with last cover day being 01/25/18 and discharge or financial responsibility to begin on 01/26/18. Resident planning to discharge on 01/26/18 to home alone with home health services for fci. Resident agreeable to have home health care set up through [facility] ([phone]) as [facility] is in [place] and accepts [place]. Resident declining to have home health therapies at this time. Resident plans to discharge to appointment on 01/26/18 and then to home. Resident daughter present in room and plans to provide transportation home for resident at time of discharge. Resident daughter agreeable to all discharge planning. Resident reporting to have all needed durable medical equipment already set up within the home. Support given. Telephone call to [place] [facility]. This social insurance analyst making referral. Clinical information faxed to: [phone]. [facility] plans to see resident for fci services. Proposed discharge date: 01/26/18 PLAN: Discharge to home alone with home health care - resident daughter also planning to assist with wound care. Kim Simental, JAVASCRIPT ENGINEER, DATA COORDINATOR
[2018-01-22] MEDS: MELATONIN 3 MG TABLET 6 MG PO (20:28)
[2018-01-23] MEDS: oxyCODONE 5 MG Tablet PO ×2 (04:21→22:14)
[2018-01-23] MEDS: Nystatin Powder 15gm Bottle 1 APPLIC TOPICAL ×2 (04:23→22:19)
[2018-01-23] MEDS: Linezolid 600 MG Tablet PO ×2 (04:23→16:13)
[2018-01-23] MEDS: Menthol/Lanolin/Calamine/Znox 113 GM Tube 1 APPLIC TOPICAL ×2 (04:24→22:19)
[2018-01-23] MEDS: Iron Polysaccharide Complex 150 MG CAPSULE PO (09:18)
[2018-01-23] MEDS: 0.9% NaCl PICC Flush IV ×2 (10:57→22:16)
[2018-01-23 15:49] VITALS: BP 102/53; PULSE 86; RESP 16; TEMP 36.7; O2SAT 97
[2018-01-23] MEDS: Senna/Docusate Sodium 1 Tablet 2 TABLET PO (16:13)
[2018-01-23] MEDS: MELATONIN 3 MG TABLET 6 MG PO (22:14)
[2018-01-24] MEDS: Linezolid 600 MG Tablet PO ×2 (04:04→18:22)
[2018-01-24] MEDS: Senna/Docusate Sodium 1 Tablet 2 TABLET PO ×2 (04:04→18:22)
[2018-01-24] MEDS: Nystatin Powder 15gm Bottle 1 APPLIC TOPICAL ×2 (04:05→21:18)
[2018-01-24] MEDS: Menthol/Lanolin/Calamine/Znox 113 GM Tube 1 APPLIC TOPICAL ×2 (04:05→21:17)
[2018-01-24] MEDS: Ondansetron ODT 4 MG Tablet 8 MG PO (08:36)
[2018-01-24] MEDS: LORazepam 0.5 MG Tablet PO (13:04)
[2018-01-24 15:43] VITALS: BP 142/97; PULSE 74; RESP 18; TEMP 36; O2SAT 97
[2018-01-24] MEDS: MELATONIN 3 MG TABLET 6 MG PO (21:17)
[2018-01-24] MEDS: 0.9% NaCl PICC Flush IV (21:29)
[2018-01-25] MEDS: oxyCODONE 5 MG Tablet PO ×3 (01:47→20:03)
[2018-01-25] MEDS: Nystatin Powder 15gm Bottle 1 APPLIC TOPICAL ×2 (05:44→19:59)
[2018-01-25] MEDS: Menthol/Lanolin/Calamine/Znox 113 GM Tube 1 APPLIC TOPICAL ×2 (05:44→20:00)
[2018-01-25] MEDS: Linezolid 600 MG Tablet PO ×2 (08:44→17:28)
[2018-01-25] MEDS: Iron Polysaccharide Complex 150 MG CAPSULE PO (08:44)
--- NOTE | 2018-01-25 15:00 | NURSING ---
Assisted to bed and in supine position. PICC line removed at this time by REJI Bustamante. Catheter intact. Resident tolerated procedure well. Instructed to remain lying down for 30 min.
--- NOTE | 2018-01-25 15:54 | NURSING ---
wound photo: right upper buttock
--- NOTE | 2018-01-25 15:54 | NURSING ---
wound photo: mid back
[2018-01-25 16:00] VITALS: BP 156/72; PULSE 73; RESP 16; TEMP 36.4; O2SAT 98
--- NOTE | 2018-01-25 16:11 | CASEMGMT ---
BIMS () and PHQ9 (07/19) interviews completed on this date for MDS assessment. GOOD Peñaloza
[2018-01-25] MEDS: LORazepam 0.5 MG Tablet PO (16:15)
[2018-01-25] MEDS: Senna/Docusate Sodium 1 Tablet 2 TABLET PO (17:28)
[2018-01-25] MEDS: MELATONIN 3 MG TABLET 6 MG PO (20:00)
[2018-01-26] MEDS: Nystatin Powder 15gm Bottle 1 APPLIC TOPICAL (05:47)
[2018-01-26] MEDS: Menthol/Lanolin/Calamine/Znox 113 GM Tube 1 APPLIC TOPICAL (05:48)
[2018-01-26] MEDS: Acetaminophen 500 MG Tablet 1000 MG PO (05:48)
[2018-01-26] MEDS: LORazepam 0.5 MG Tablet PO (08:27)
[2018-01-26 08:29] VITALS: BP 150/71; PULSE 83; RESP 18; TEMP 36.8; O2SAT 96
--- NOTE | 2018-01-26 12:47 | CASEMGMT ---
Insurance Left for insurance that pt was d/c 01/26/18 with home health nurse. Auth# [id number] GOOD Peñaloza
== END 2018-01-26 11:00 | disposition home health service (06) | DRG 949 ==
PROVIDERS: Internal Medicine Infectious Disease; Admitting Provider Family Medicine Geriatric Medicine; Family Provider Internal Medicine; PCP Internal Medicine; Referring Provider Family Medicine Geriatric Medicine; Visit Provider Family Medicine Geriatric Medicine
DX: T85.733D Infection and inflammatory reaction due to implanted electronic neurostimulator of spinal cord, electrode (lead), subsequent encounter (principal); G06.2 Extradural and subdural abscess, unspecified; R78.81 Bacteremia; Y83.8 Other surgical procedures as the cause of abnormal reaction of the patient, or of later complication, without mention of misadventure at the time of the procedure; B95.62 Methicillin resistant Staphylococcus aureus infection as the cause of diseases classified elsewhere; J44.9 Chronic obstructive pulmonary disease, unspecified; I10 Essential (primary) hypertension; J45.909 Unspecified asthma, uncomplicated; G89.29 Other chronic pain; M54.9 Dorsalgia, unspecified; B95.2 Enterococcus as the cause of diseases classified elsewhere; R21 Rash and other nonspecific skin eruption
CPT/HCPCS: 36415; 80048; 80202; 82565; 85025; 86140; 97110; 97116; 97163; 97166; 97530; 97535; 97802; J7030; J7040; J7050; A4216

== ENCOUNTER → 2018-01-19 10:12 | Outpatient (CLI) | payer MEDICARE, SELFPAY ==
--- NOTE | 2018-01-19 10:18 | MRI_ITS ---
STUDY: MRI THORACIC SPINE WITH AND WITHOUT CONTRAST REASON FOR EXAM: Female, 72 years old. Back pain, infection -- Abcess; prior stimulator placement and removal d/t infection. TECHNIQUE: 8 ml of Gadavist was administered intravenously for the contrast portion of the examination. COMPARISON: December 11, 2017 FINDINGS: Normal kyphosis of the thoracic spine. There is no substantial scoliosis. T1-2, T2-3, T3-4, T4-5, T5-6, T6-7, T7-8, T8-9, T9-10, T10-11, T11-12: There is diffuse disc space narrowing and endplate spondylosis. T1-T3: There is increased ventral epidural enhancement measuring approximately 0.5 x 1.0 x 5.6 cm with mild central canal stenosis. There is extension into the bilateral neural foramina T8-T11: Again noted is stable minimal enhancement at the posterior epidural space. T11/T12: Again noted is unchanged infiltration and enhancement at the interspinous processes. There is decreased subcutaneous fluid collection. MRI/Spine Thoracic W/WO Contrast IMPRESSION: T1-T3: Increased ventral epidural abscess. N.B. : The above information has been verbally conveyed by Dk Lacy MD to Dr. Dannie MD, on 01/20/2018 12:32:54 (ET). Electronically Signed: Dk Lacy MD at 10:44 EST Tel , Service support ,
--- NOTE | 2018-01-19 10:18 | MRI_ITS ---
STUDY: MRI LUMBAR SPINE WITH AND WITHOUT CONTRAST REASON FOR EXAM: Female, 72 years old. Abcess; prior stimulator placement and removal d/t infection. TECHNIQUE: Standardized fat and water weighted pulse sequences were obtained in the sagittal and axial planes. 8 ml of Gadavist contrast material was administered for the contrast portion of the examination. COMPARISON: December 11, 2017 FINDINGS: T12-L1: There is minimal disc space narrowing and endplate spondylosis. There is no significant disc herniation, central canal or foraminal stenosis. Normal lumbar lordosis. There is no substantial scoliosis. Normal conus medullaris that terminates at the L1 L1-2: There is mild disc space narrowing and endplate spondylosis. There is a mild disc osteophyte complex asymmetric to right with moderate right foraminal stenosis. There is no significant central canal or left foraminal stenosis. L2-3: There is moderate disc space narrowing and endplates spondylosis. There is extensive facet osteoarthropathy with grade 1 anterolisthesis and disc uncovering with severe central canal stenosis. There is moderate bilateral foraminal stenosis. L3-4: There is moderate disc space narrowing and endplates spondylosis.. There is a decompression laminectomy and posterior transpedicular fusion. The central canal and bilateral neural foraminal are widely patent. L4-5: There is moderate disc space narrowing and endplates spondylosis.. There is a decompression laminectomy and posterior transpedicular fusion. The central canal and bilateral neural foraminal are widely patent. There is stable grade 1 anterolisthesis. There is stable laminectomy defect fluid collection. L5-S1: There is moderate disc space narrowing and endplates spondylosis. There is a decompression laminectomy and posterior transpedicular fusion. The central canal is widely patent. There is mild bilateral foraminal status. Normal visualized sacral ala. MRI/Spine Lumbar W/WO Contrast IMPRESSION: Stable examination. Electronically Signed: Dk Lacy MD at 10:44 EST Tel , Service support ,
--- OUTSIDE RECORDS SUMMARY | 2018-03-03 01:19 | XMS RPT_ITS ---
:1945 Author Organization OHIP Support Name Relationship Address Phone JEIMY TURK Unavailable [address] + [place] [address] R Unavailable Unavailable Unavailable MUSTAPHA, VALERIE Unavailable [address] + [place] [address] BURKE JEIMY Unavailable [address] + [place] [address] R Unavailable Unavailable Unavailable MUSTAPHA, VALERIE Unavailable [address] + [place] [address] BURKE JEIMY Unavailable [address] + [place] [address] R Unavailable Unavailable Unavailable MUSTAPHA, VALERIE Unavailable [address] + [place] [address] BURKE JEIMY Unavailable [address] + [place] [address] R Unavailable Unavailable Unavailable MUSTAPHA, VALERIE Unavailable [address] + [facility] [place] [address] BURKE JEIMY Unavailable [address] + [place] [address] R Unavailable Unavailable Unavailable MUSTAPHA, VALERIE Unavailable [address] + [place] [address] BURKE JEIMY Unavailable [address] + [place] [address] R Unavailable Unavailable Unavailable MUSTAPHA, VALERIE Unavailable [address] + [place] [address] BURKE JEIMY Unavailable [address] + [place] [address] R Unavailable Unavailable Unavailable MUSTAPHA, VALERIE Unavailable [address] + [place] [address] TURK, JEIMY Unavailable [address] + [place] [address] R Unavailable Unavailable Unavailable MUSTAPHA, VALERIE Unavailable [address] + [facility] [place] [address] TURK JEIMY Unavailable [address] + [place] [address] R Unavailable Unavailable Unavailable MUSTAPHA, VALERIE Unavailable [address] + [facility] [place] [address] TURK, JEIMY Unavailable [address] + [place] [address] R Unavailable Unavailable Unavailable MUSTAPHA, VALERIE Unavailable [address] + [facility] [place] [address] TURK, JEIMY Unavailable [address] + [place] [address] R Unavailable Unavailable Unavailable MUSTAPHA, VALERIE Unavailable [address] + [facility] [place] [address] TURK JEIMY Unavailable [address] + [place] [address] R Unavailable Unavailable Unavailable MUSTAPHA, VALERIE Unavailable [address] + [facility] [place] [address] TURK JEIMY Unavailable [address] + [place] [address] R Unavailable Unavailable Unavailable MUSTAPHA, VALERIE Unavailable [address] + [facility] [place] [address] TURK JEIMY Unavailable [address] + [place] [address] R Unavailable Unavailable Unavailable MUSTAPHA, VALERIE Unavailable [address] + [facility] [place] [address] TURK, JEIMY Unavailable [address] + [place] [address] R Unavailable Unavailable Unavailable MUSTAPHA, VALERIE Unavailable [address] + [facility] [place] [address] TURK, JEIMY Unavailable [address] + [place] [address] R Unavailable Unavailable Unavailable MUSTAPHA, VALERIE Unavailable [address] + [place] [address] BURKE JEIMY Unavailable [address] + [place] [address] R Unavailable Unavailable Unavailable MUSTAPHA, VALERIE Unavailable [address] + [place] [address] BURKE JEIMY Unavailable [address] + [place] [address] R Unavailable Unavailable Unavailable MUSTAPHA, VALERIE Unavailable [address] + [place] [address] TURK JEIMY Unavailable [address] + [place] [address] R Unavailable Unavailable Unavailable MUSTAPHA, VALERIE Unavailable [address] + [place] [address] BURKE JEIMY Unavailable [address] + [place] [address] R Unavailable Unavailable Unavailable MUSTAPHA, VALERIE Unavailable [address] + [place] [address] BRUKE JEIMY Unavailable Unavailable + [place] [address] R Unavailable Unavailable Unavailable MUSTAPHA, VALERIE Unavailable [address] + [place] [address] TURK JEIMY Unavailable Unavailable + [place] [address] R Unavailable Unavailable Unavailable MUSTAPHA, VALERIE Unavailable [address] + [place] [address] TURK JEIMY Unavailable [address] + [place] [address] R Unavailable Unavailable Unavailable MUSTAPHA, VALERIE Unavailable [address] + [place] [address] TURK, JEIMY Unavailable [address] + [place] [address] R Unavailable Unavailable Unavailable MUSTAPHA, VALERIE Unavailable [address] + [place] [address] TURK, JEIMY Unavailable [address] + [place] [address] R Unavailable Unavailable Unavailable MUSTAPHA, VALERIE Unavailable [address] + [place] [address] BURKE JEIMY Unavailable [address] + [place] [address] R Unavailable Unavailable Unavailable MUSTAPHA, VALERIE Unavailable [address] + [place] [address] BURKE JEIMY Unavailable [address] + [place] [address] R Unavailable Unavailable Unavailable MUSTAPHA, VALERIE Unavailable [address] + [place] [address] BURKE JEIMY Unavailable [address] + [place] [address] R Unavailable Unavailable Unavailable MUSTAPHA, VALERIE Unavailable [address] + [place] [address] Care Team Providers Name Role Phone GENOVEVA REAVES (PA) Referring Unavailable ISADORA PEGUERO (GEMA) Attending Unavailable ISADORA PEGUERO (GEMA) Referring Unavailable ISADORA PEGUERO (GEMA) Referring Unavailable KODY JOSHI Attending Unavailable ISADORA PEGUERO (GEMA) Referring Unavailable HECTOR KNUTSON Attending Unavailable BRENTITAYLA Referring Unavailable TALAMPAS, ELKIN D Attending Unavailable VALERI REESE Admitting Unavailable HITESH MOLINA Attending Unavailable OSORIO, LULETTE MARTÍNEZ Attending Unavailable OSORIO, LULETTE MARTÍNEZ Referring Unavailable ALPA COLEMAN Attending Unavailable OSORIO, LULETTE MARTÍNEZ Referring Unavailable Talampas, Elkin Primary Care Unavailable White, Carly Admitting Unavailable White, Carly Attending Unavailable Basali, Ayman Consulting Unavailable Sekou, Asl Consulting Unavailable White, Carly Admitting Unavailable White, Carly Attending Unavailable Talampas, Elkin Primary Care Unavailable White, Carly Consulting Unavailable White, Carly Admitting Unavailable White, Carly Attending Unavailable Talampas, Elkin Primary Care Unavailable Basali, Ayman Consulting Unavailable White, Carly Consulting Unavailable White, Carly Admitting Unavailable White, Carly Attending Unavailable Talampas, Elkin Primary Care Unavailable Basali, Ayman Consulting Unavailable Sekou, Sal Consulting Unavailable White, Carly Consulting Unavailable Logan Mclaughlin Attending Unavailable White, Carly Referring Unavailable Rosalio Stoddard Attending Unavailable White, Carly Referring Unavailable Basali, Ayman Attending Unavailable Basali, Ayman Referring Unavailable Talampas, Elkin Primary Care Unavailable Talampas, Elkin Primary Care Unavailable Ej Xiao Attending Unavailable Talampas, Elkin Primary Care Unavailable Agyepong, Tony Admitting Unavailable Agyepong, Tony Referring Unavailable Dannie, Logan Consulting Unavailable Mahi Daigle Attending Unavailable Basali, Ayman Consulting Unavailable Hermilo, Ann-Marie Consulting Unavailable Santa Otoole Consulting Unavailable Agyepong, Tony Admitting Unavailable Agyepong, Tony Attending Unavailable Agyepong, Tony Referring Unavailable Talampas, Elkin Primary Care Unavailable AgyepongTony Consulting Unavailable Agyepong, Tony Admitting Unavailable KittoJosé walls Attending Unavailable Agyepong, Tony Referring Unavailable Talampas, Elkin Primary Care Unavailable Dannie, Logan Consulting Unavailable Basali, Christoferman Consulting Unavailable Hermilo, Ann-Marie Consulting Unavailable KitJosé campos Consulting Unavailable Agyepong, Tony Admitting Unavailable Kitandres, José Attending Unavailable Agyepong, Tony Referring Unavailable Talampas, Elkin Primary Care Unavailable Dannie, Logan Consulting Unavailable Basali, Ayman Consulting Unavailable Hermilo, Ann-Marie Consulting Unavailable José Perez Consulting Unavailable Agyepong, Tony Admitting Unavailable Kitandrse, José Attending Unavailable Agyepong, Tony Referring Unavailable Talampas, Elkin Primary Care Unavailable Dannie, Logan Consulting Unavailable Basali, Ayman Consulting Unavailable Hermilo, Ann-Marie Consulting Unavailable José Perez Consulting Unavailable Agyepong, Tony Admitting Unavailable Chris, José Attending Unavailable Agyepong, Tony Referring Unavailable Talampas, Elkin Primary Care Unavailable Dannie, Logan Consulting Unavailable Basali, Christoferman Consulting Unavailable Hermilo, Ann-Marie Consulting Unavailable José Perez Consulting Unavailable AgyepongTony Admitting Unavailable Kittokavita, José Attending Unavailable Agyepong, Tony Referring Unavailable Talampas, Elkin Primary Care Unavailable Dannie, Logan Consulting Unavailable Basali, Ayman Consulting Unavailable Hermilo, Ann-Marie Consulting Unavailable KitJosé campos Consulting Unavailable Agyepong, Tony Admitting Unavailable KitJosé campos Attending Unavailable Agyepong, Tony Referring Unavailable Talampas, Elkin Primary Care Unavailable Dannie, Logan Consulting Unavailable Basali, Ayman Consulting Unavailable Hermilo, Ann-Marie Consulting Unavailable José Perez Consulting Unavailable Agyepong, Tony Admitting Unavailable KitJosé campos Attending Unavailable Agyepong, Tony Referring Unavailable Talampas, Elkin Primary Care Unavailable Dannie, Logan Consulting Unavailable Basali, Ayman Consulting Unavailable Hermilo, Ann-Marie Consulting Unavailable José Perez Unavailable AgyepongTony Admitting Unavailable Kiko Yoon Attending Unavailable Agyepong, Tony Referring Unavailable Talampas, Elkin Primary Care Unavailable Dannie, Logan Consulting Unavailable Basali, Ayman Consulting Unavailable Hermilo, Ann-Marie Consulting Unavailable Karrie Kiko Consulting Unavailable AgTony herring Admitting Unavailable Kiko Yoon Attending Unavailable Agyepong, Tony Referring Unavailable Talampas, Elkin Primary Care Unavailable Dannie, Logan Consulting Unavailable Basali, Ayman Consulting Unavailable Hermilo, Ann-Marie Consulting Unavailable Kiko Yoon Consulting Unavailable AgTony herring Admitting Unavailable Kiko Yoon Attending Unavailable AgrodneyponTony peterson Referring Unavailable Talampas, Elkin Primary Care Unavailable Dannie, Logan Consulting Unavailable Basali, Ayman Consulting Unavailable Hermilo, Ann-Marie Consulting Unavailable Jake Yoonic Consulting Unavailable AgTony herring Admitting Unavailable Mahi Daigle Attending Unavailable Agnima, Tony Referring Unavailable Talampas, Elkin Primary Care Unavailable Dannie, Logan Consulting Unavailable Basali, Ayman Consulting Unavailable Hermilo, Ann-Marie Consulting Unavailable Robotham, Santa Consulting Unavailable Mahi Daigle Consulting Unavailable AgTony herring Admitting Unavailable Santa Otoole Attending Unavailable AgTony herring Referring Unavailable Talampas, Elkin Primary Care Unavailable Dannie, Logan Consulting Unavailable Basali, Ayman Consulting Unavailable Hermilo, Ann-Marie Consulting Unavailable Robotham, Santa Consulting Unavailable Mahi Daigle Consulting Unavailable AgyefermingTony Admitting Unavailable Mahi Daigle Attending Unavailable AgangeligTony Referring Unavailable Talampas, Elkin Primary Care Unavailable Dannie, Logan Consulting Unavailable Basali, Ayman Consulting Unavailable Hermilo, Ann-Marie Consulting Unavailable Robotham, Santa Consulting Unavailable Mahi [place]ig[place] Consulting Unavailable AgTony herring Admitting Unavailable Mahi Daigle Attending Unavailable AgrodneypongTony Referring Unavailable Talampas, Elkin Primary Care Unavailable Dannie, Logan Consulting Unavailable Basali, Ayman Consulting Unavailable Hermilo, Ann-Marie Consulting Unavailable Robotham, Santa Consulting Unavailable Mahi [place]ig[place] Consulting Unavailable Rosalio Stoddard Attending Unavailable José Perez Referring Unavailable Rosalio Stoddard Attending Unavailable José Perez Referring Unavailable Yuri, Primitivo Chi Admitting Unavailable Yuri, Primitivo Chi Attending Unavailable Yuri, Primitivo Chi Referring Unavailable Talampas, Elkin Primary Care Unavailable Logan Pandey Consulting Unavailable ISA BLANCHARD Attending Unavailable Talampas, Elkin Referring Unavailable Talampas, Elkin Primary Care Unavailable PROBLEMS PROBLEMS DATE TYPE CONDITION / CODE ATTENDING STATUS SOURCE 01/26/2018 Active Methicillin resistant NA Active [place] Staphylococcus aureus Clinic Main infection, [place] unspecified site / Repository A49.02(ICD-10) 01/26/2018 Active Infection and NA Active [facility] inflammatory reaction [facility] Main due to implanted [place] electronic Repository neurostimulator of spinal cord, electrode (lead), subsequent encounter / T85.733D(ICD-10) 01/27/2018 Unknown T85.733D - Infection Yuri, Primitivo Chi Active [facility] and inflammatory Community reaction due to Hospital implanted electronic Repository neurostimulator of spinal cord, electrode (lead), subsequent encounter / T85.733D(ICD-10) 01/27/2018 Unknown R78.81 - Bacteremia / Yuri, Primitivo Chi Active [facility] R78.81(ICD-10) [facility] Hospital Repository 12/24/2017 Active Bacteremia / BARBASTEFANO, Active [facility] R78.81(ICD-10) [facility] [place] Repository 12/24/2017 Active Extradural and BARBASTEFANO, Active [facility] subdural abscess, [facility] Main unspecified / [place] G06.2(ICD-10) Repository 12/23/2017 Active Essential (primary) BARBASTEFANO, Active [facility] hypertension / [facility] I10(ICD-10) [place] Repository 06/26/2017 Active Cutaneous abscess, BARBASTEFANO, Active [facility] unspecified / [facility] L02.91(ICD-10) [place] Repository 12/12/2017 Active Lumbago with BARBASTEFANO, Active [facility] sciatica, left side / [facility] M54.42(ICD-10) [place] Repository 12/12/2017 Active Lumbago with BARBASTEFANO, Active [facility] sciatica, right side [facility] Main / M54.41(ICD-10) [place] Repository 12/17/2017 Unknown T85.734A - Infection Tereletsky, Active [facility] and inflammatory [place] Community reaction due to Hospital implanted electronic Repository neurostimulator, generator, initial encounter / T85.734A(ICD-10) 12/22/2017 Unknown G93.40 - José Perez Active [facility] Encephalopathy, Community unspecified / Hospital G93.40(ICD-10) Repository 06/26/2017 Active Sprain of unspecified NA Active [facility] ligament of left Clinic Main ankle, initial [place] encounter / Repository S93.402A(ICD-10) 06/26/2017 Active Pain in left ankle NA Active [facility] and joints of left Clinic Main foot / [place] M25.572(ICD-10) Repository 06/26/2017 Active Pain in left foot / NA Active [facility] M79.672(ICD-10) Clinic Main [place] Repository 05/27/2017 Unknown I10 - Essential MoodispaRosalio saldana Active [place] (primary) Community hypertension / Hospital I10(ICD-10) Repository 03/26/2017 Unknown M54.9 - Dorsalgia, White, Caryl Active [facility] unspecified / Community M54.9(ICD-10) Hospital Repository 04/30/2017 Unknown M79.89 - Other CebuLogan barreto Active [facility] specified soft tissue Community disorders / Hospital M79.89(ICD-10) Repository 02/28/2017 Active Unspecified fall, NA Active [facility] initial encounter / Clinic Main W19.XXXA(ICD-10) [place] Repository 02/28/2017 Active Pain in right thigh / NA Active [facility] M79.651(ICD-10) Clinic Main [place] Repository 02/28/2017 Active Low back pain / NA Active [facility] M54.5(ICD-10) Clinic Main [place] Repository 02/28/2017 Active Unknown / NA Active [facility] UNK(Unknown) Clinic Main [place] Repository PROCEDURES PROCEDURES No Procedure Records FoundRESULTS RESULTS PROGRESS Observed: 02/04/2018 Status: COMPLETED Source: [facility] 1:03 PM [facility] REPOSITORY HNO ID: [id number] Author: Alpa Coleman Service: (none) Author Type: Physician Type: Progress Notes Filed: 02/04/2018 2:11 PM Note Text: SPINE SURGERY NEW PATIENT PCP: Elkin Wood MD REFERRING PROVIDER: Dr. Osorio SUBJECTIVE HISTORY OF PRESENT ILLNESS: Stephie Ugarte is a 72 year old female presenting with daughter. Hx of L3-S1 laminectomy and posterior spinal fusion. Had Surgery 2017. Dr. Kristin Brar. Pain stimulator removed. MRSA bacteria secondary to implantable spinal cord stimulator(now removed). - General surg for abscess removal/washout Prior symptoms: Pain and tingling in bilateral LE - Improved since surgery. 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 Now home for past week. PAIN EVALUATION 02/04/2018 Pain Score: 5 Pain Location: Back-Lower Description: Radiating Duration Amount of Time: 2 Duration Units: Months Frequency: Continuous AMBULATORY STATUS: Using Wheelchair in community. Cane for short distances. ANTIPLATELET OR ANTICOAGULATION STATUS: No PREVIOUS SPINAL SURGERY: as above ACTIVE PROBLEM LIST Generalized Osteoarthrosis, Unspecified Site Symptomatic Menopausal Or Female Climacteric States Essential Hypertension, Benign Neuritis of Upper Extremity Pes Anserinus Tendinitis Or Bursitis Other Disorder of Muscle, Ligament, and Fascia Hypercholesterolemia Persistent Disorder of Initiating Or Maintaining Sleep Mild Intermittent Asthma Without Complication Acute Midline Low Back Pain With Bilateral Sciatica Epidural Abscess PAST MEDICAL HISTORY Diagnosis Date - ASA CLASS II 09/09/2004 - Bilateral low back pain with left-sided sciatica 04/02/2015 Taken care of by surgery - Bilateral low back pain with sciatica 04/09/2015 Taken care of by surgery - Diverticulitis - Diverticulitis of colon 07/21/2009 - Essential hypertension, benign 12/09/2006 - Mild intermittent asthma without complication 03/27/2016 PAST SURGICAL HISTORY Procedure Laterality Date - APPENDECTOMY - COLONOSCOP W/ OR W/O [facility] SPEC 08/14/2009 Diverticulosis - COLONOSCOPY 09/15/03 Scanned documents - KNEE SCOPE,DIAGNOSTIC Arthroscopy, knee, x 2 both knees - LAP, SURG MOBIL SPLENIC FL DUR PTL COLECTOMY 08/16/2009 - LAPAROSCOPIC HEMICOLECTOMY 08/16/2009 - PAST SURGICAL HISTORY OF Anterior cervical fusion - REPAIR INCISIONAL HERNIA,REDUCIBLE 08/16/2009 - REPAIR ROTATOR CUFF,ACUTE Rotator cuff repair, Left - TOTAL ABDOM HYSTERECTOMY Hysterectomy, DEVANTE, right ovary remains - TOTAL HIP REPLACEMENT Left 10/18/15 [facility] - TOTAL HIP REPLACEMENT Right 01/30/2016 Dr. Cardenas - TOTAL KNEE REPLACEMENT 08/11/2011 Knee replacement, total Left - [facility]. 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 Social History Main Topics Smoking status: Never Smoker Smokeless tobacco: Never Used Comment: Mother smoked in childhood home. Spouse smoked a little. 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 clindamycin (CLEOCIN) 300 mg capsule Take 1 capsule by mouth every 8 hours for 21 days. docusate sodium (STOOL SOFTENER ORAL) Take by mouth. Hydrocolloid Dressing (AQUACEL EXTRA) 4 X 5 bndg Apply to affected wound with dressing change every 3 days. Buttock wound 1cmX2.25 cm lisinopril-hydrochlorothiazide (PRINZIDE,ZESTORETIC) 10-12.5 mg per tablet Take 1 tablet by mouth once daily. benzocaine-menthol (CEPACOL) 15-3.6 mg lozg Use 1 Lozenge as instructed every 2 hours as needed. melatonin 3 mg tablet Take 2 tablets by mouth daily at bedtime. ondansetron, PF, (ZOFRAN) 4 mg/2 mL soln Inject 4 mg intravenously every 6 hours as needed. polyethylene glycol 3350 (MIRALAX, GLYCOLAX) 17 gram packet 1 Packet by ORAL/FEEDING TUBE route once daily. vancomycin (VANCOCIN) 1 gram/200 mL in D5W Inject 200 mL intravenously q 12 HR. REVIEW OF SYSTEMS: GENERAL: No weight loss or malaise MUSCULOSKELETAL: Negative for joint pain, swelling NEURO: No history of headaches, syncope, paralysis, seizures or tremors OBJECTIVE: PHYSICAL EXAM Temp 36.3 ?C (97.4 ?F) Ht 160 cm (5' 3) Wt 79 kg (174 lb 4 oz) BMI 30.87 kg/m? GENERAL APPEARANCE: Well nourished, well developed, and no apparent distress. Comfortable in wheelchair NEURO PSYCH: Mood pleasant. Benign affect. MUSCULOSKELETAL VISUAL INSPECTION THORACIC/Lumbar: Well healing wound vac site. Prior lumbar incision well healed. Dressing in place to right buttock wound. MOTOR: 5/5 in all muscle groups. Except 4/5 in right hip flexion - limited by pain. SENSORY: Normal sensory exam to light touch Noted 4-5 beats clonus to RLE - non-sustained. GAIT: Broad based but steady with cane. Reflexes brisk at bilat patella NEURO TESTS: Cranial Nerves: Normal mood and affect. CNII-XII grossly intact. 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 Postoperative changes from L3 S1 laminectomy and posterior spinal fusion. ?A 3.5 cm collection in the surgical bed likely represent postsurgical changes/bland seroma. 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 Pt Non- febrile and happy with current progress The above plan and management options were discussed at length with patient. Patient is in agreement with the above and verbalized understanding. ? Patient instructed to call/seek urgent medical care with worsening of symptoms or change of neurological status. Patient provided with nurse's business card. ? Stalin Theodore M.D. Spine Medicine Fellow I received a personal phone call from the patient's infectious disease doctor. She was concerned about residual thoracic epidural collection after most recent MRI was performed at the end of December. The patient clinically is doing remarkably well. She is recovering from incision and drainage and treatment in the hospital and intravenous treatment at home. The thoracic wound is completely healed and is non-erythematous. The gluteal wound had a dressing on it today and we did not take that down. I reviewed the MRI which was performed to compared it with the MRI which was performed as an inpatient. It is difficult for me to say with any degree of certainty if the ventral epidural collection/phlegmon is any worse but clearly does not look better than it did. I am recommending at this period of time that we continue to treat her with oral antibiotics and reimage her thoracic spine in 2 months to see if the collections any different in size. This could represent a sterile collection at this period given the significant improvement of her inflammatory markers and general overall appearance. Alpa Coleman M.D. SIGNATURE: Alpa Coleman MD PATIENT NAME: Stephie Ugarte DATE: February 04, 2018 TIME: 1:06 PM PAGER: [email or web address] Observed: 02/04/2018 Status: COMPLETED Source: [facility] 12:00 PM [facility] REPOSITORY Office Visit (SPNSTW) STEPHIE UGARTE ([id number]) 1945 F Date Time Provider Department 02/04/18 12:00 PM ALPA COLEMAN SPNSTW During your visit today, we recorded the following information about you: Temperature Weight Height 97.4 degrees 79 kg 1.6 m Alpa Coleman MD 02/04/2018 2:11 PM Signed SPINE SURGERY NEW PATIENT PCP: Elkin Wood MD REFERRING PROVIDER: Dr. Osorio SUBJECTIVE HISTORY OF PRESENT ILLNESS: Stephie Ugarte is a 72 year old female presenting with daughter. Hx of L3-S1 laminectomy and posterior spinal fusion. Had Surgery 2017. Dr. Kristin Brar. Pain stimulator removed. MRSA bacteria secondary to implantable spinal cord stimulator(now removed). - General surg for abscess removal/washout Prior symptoms: Pain and tingling in bilateral LE - Improved since surgery. 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 Now home for past week. PAIN EVALUATION 02/04/2018 Pain Score: 5 Pain Location: Back-Lower Description: Radiating Duration Amount of Time: 2 Duration Units: Months Frequency: Continuous AMBULATORY STATUS: Using Wheelchair in community. Cane for short distances. ANTIPLATELET OR ANTICOAGULATION STATUS: No PREVIOUS SPINAL SURGERY: as above ACTIVE PROBLEM LIST Generalized Osteoarthrosis, Unspecified Site Symptomatic Menopausal Or Female Climacteric States Essential Hypertension, Benign Neuritis of Upper Extremity Pes Anserinus Tendinitis Or Bursitis Other Disorder of Muscle, Ligament, and Fascia Hypercholesterolemia Persistent Disorder of Initiating Or Maintaining Sleep Mild Intermittent Asthma Without Complication Acute Midline Low Back Pain With Bilateral Sciatica Epidural Abscess PAST MEDICAL HISTORY Diagnosis Date - ASA CLASS II 09/09/2004 - Bilateral low back pain with left-sided sciatica 04/02/2015 Taken care of by surgery - Bilateral low back pain with sciatica 04/09/2015 Taken care of by surgery - Diverticulitis - Diverticulitis of colon 07/21/2009 - Essential hypertension, benign 12/09/2006 - Mild intermittent asthma without complication 03/27/2016 PAST SURGICAL HISTORY Procedure Laterality Date - APPENDECTOMY - COLONOSCOP W/ OR W/O [facility] SPEC 08/14/2009 Diverticulosis - COLONOSCOPY 09/15/03 Scanned documents - KNEE SCOPE,DIAGNOSTIC Arthroscopy, knee, x 2 both knees - LAP, SURG MOBIL SPLENIC FL DUR PTL COLECTOMY 08/16/2009 - LAPAROSCOPIC HEMICOLECTOMY 08/16/2009 - PAST SURGICAL HISTORY OF Anterior cervical fusion - REPAIR INCISIONAL HERNIA,REDUCIBLE 08/16/2009 - REPAIR ROTATOR CUFF,ACUTE Rotator cuff repair, Left - TOTAL ABDOM HYSTERECTOMY Hysterectomy, DEVANTE, right ovary remains - TOTAL HIP REPLACEMENT Left 10/18/15 [facility] - TOTAL HIP REPLACEMENT Right 01/30/2016 Dr. Cardenas - TOTAL KNEE REPLACEMENT 08/11/2011 Knee replacement, total Left - Dr. 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 Social History Main Topics Smoking status: Never Smoker Smokeless tobacco: Never Used Comment: Mother smoked in childhood home. Spouse smoked a little. 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 clindamycin (CLEOCIN) 300 mg capsule Take 1 capsule by mouth every 8 hours for 21 days. docusate sodium (STOOL SOFTENER ORAL) Take by mouth. Hydrocolloid Dressing (AQUACEL EXTRA) 4 X 5 bndg Apply to affected wound with dressing change every 3 days. Buttock wound 1cmX2.25 cm lisinopril-hydrochlorothiazide (PRINZIDE,ZESTORETIC) 10-12.5 mg per tablet Take 1 tablet by mouth once daily. benzocaine-menthol (CEPACOL) 15-3.6 mg lozg Use 1 Lozenge as instructed every 2 hours as needed. melatonin 3 mg tablet Take 2 tablets by mouth daily at bedtime. ondansetron, PF, (ZOFRAN) 4 mg/2 mL soln Inject 4 mg intravenously every 6 hours as needed. polyethylene glycol 3350 (MIRALAX, GLYCOLAX) 17 gram packet 1 Packet by ORAL/FEEDING TUBE route once daily. vancomycin (VANCOCIN) 1 gram/200 mL in D5W Inject 200 mL intravenously q 12 HR. REVIEW OF SYSTEMS: GENERAL: No weight loss or malaise MUSCULOSKELETAL: Negative for joint pain, swelling NEURO: No history of headaches, syncope, paralysis, seizures or tremors OBJECTIVE: PHYSICAL EXAM Temp 36.3 ?C (97.4 ?F) Ht 160 cm (5' 3) Wt 79 kg (174 lb 4 oz) BMI 30.87 kg/m? GENERAL APPEARANCE: Well nourished, well developed, and no apparent distress. Comfortable in wheelchair NEURO PSYCH: Mood pleasant. Benign affect. MUSCULOSKELETAL VISUAL INSPECTION THORACIC/Lumbar: Well healing wound vac site. Prior lumbar incision well healed. Dressing in place to right buttock wound. MOTOR: 5/5 in all muscle groups. Except 4/5 in right hip flexion - limited by pain. SENSORY: Normal sensory exam to light touch Noted 4-5 beats clonus to RLE - non-sustained. GAIT: Broad based but steady with cane. Reflexes brisk at bilat patella NEURO TESTS: Cranial Nerves: Normal mood and affect. CNII-XII grossly intact. 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 Postoperative changes from L3 S1 laminectomy and posterior spinal fusion. ?A 3.5 cm collection in the surgical bed likely represent postsurgical changes/bland seroma. 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 Pt Non- febrile and happy with current progress The above plan and management options were discussed at length with patient. Patient is in agreement with the above and verbalized understanding. ? Patient instructed to call/seek urgent medical care with worsening of symptoms or change of neurological status. Patient provided with nurse's business card. ? Stalin Theodore M.D. Spine Medicine Fellow I received a personal phone call from the patient's infectious disease doctor. She was concerned about residual thoracic epidural collection after most recent MRI was performed at the end of December. The patient clinically is doing remarkably well. She is recovering from incision and drainage and treatment in the hospital and intravenous treatment at home. The thoracic wound is completely healed and is non-erythematous. The gluteal wound had a dressing on it today and we did not take that down. I reviewed the MRI which was performed to compared it with the MRI which was performed as an inpatient. It is difficult for me to say with any degree of certainty if the ventral epidural collection/phlegmon is any worse but clearly does not look better than it did. I am recommending at this period of time that we continue to treat her with oral antibiotics and reimage her thoracic spine in 2 months to see if the collections any different in size. This could represent a sterile collection at this period given the significant improvement of her inflammatory markers and general overall appearance. Alpa Coleman M.D. SIGNATURE: Alpa Coleman MD PATIENT NAME: Stephie Ugarte DATE: February 04, 2018 TIME: 1:06 PM PAGER: Referring Provider: DENISSE OSORIO [[id number]] Allergies As of Date: 02/04/2018 Noted Allergy Reaction ANESTHESIA [Other] 09/09/2004 8 - GI Upset Date Reviewed: 02/04/2018 Reviewed by: Erica Barron Ma - Fully Assessed Reason for Visit: Consult [502] Primary Visit Diagnosis:Epidural abscess [G06.2] Prescriptions as of 02/04/2018 Sig: ACETAMINOPHEN 325 MG TABLET Take 2 tablets by mouth every* CLINDAMYCIN HCL 300 MG CAPSULE Take 1 capsule by mouth every* STOOL SOFTENER ORAL Take by mouth. HYDROCOLLOID DRESSING 4 X 5 Apply to affected wound with * LISINOPRIL 10 MG-HYDROCHLOROT* Take 1 tablet by mouth once d* BENZOCAINE-MENTHOL 15 MG-3.6 * Use 1 Lozenge as instructed e* Patient not taking: Reported on 01/26/2018 MELATONIN 3 MG TABLET Take 2 tablets by mouth daily* ONDANSETRON HCL (PF) 4 MG/2 M* Inject 4 mg intravenously bola* POLYETHYLENE GLYCOL 3350 17 G* 1 Packet by ORAL/FEEDING TUBE* VANCOMYCIN 1 GRAM/200 ML IN D* Inject 200 mL intravenously q* Patient not taking: Reported on 01/26/2018 Problem List As Of Date 02/04/2018 Noted Resolved GENERAL OSTEOARTHROSIS [M15.9] INVALID FOR* SYMPTOMATIC FEMALE CLIMACTERIC STATE [N95.1] INVALID FOR* ASA CLASS II [1001] INVALID FOR*01/14/2013 Essential hypertension, benign [I10] INVALID FOR* More... Pure hyperglyceridemia [E78.1] INVALID FOR*03/04/2016 Diverticulitis of colon [K57.32] INVALID FOR*01/14/2013 Asthmatic bronchitis [J45.909] INVALID FOR*03/27/2016 Neuritis of upper extremity [M79.2] INVALID FOR* Pes anserinus tendinitis or bursitis [RCJ0832] INVALID FOR* Other disorder of muscle, ligament, and fascia *INVALID FOR* Hypercholesterolemia [E78.00] INVALID FOR* Bilateral low back pain without sciatica [M54.5]INVALID FOR*03/11/2016 Bilateral low back pain with left-sided sciatic*INVALID FOR*03/11/2016 Bilateral low back pain with sciatica [M54.40] INVALID FOR*03/11/2016 Persistent disorder of initiating or maintainin*INVALID FOR* Mild intermittent asthma without complication [*INVALID FOR* Acute midline low back pain with bilateral scia*INVALID FOR* MRSA bacteremia [R78.81] INVALID FOR*12/24/2017 More... Soft tissue abscess [L02.91] INVALID FOR*12/23/2017 More... Cholecystitis, acute [K81.0] INVALID FOR*12/23/2017 Epidural abscess [G06.2] INVALID FOR* Encounter Status:Closed by ALPA COLEMAN MD on 02/04/18 PROGRESS Observed: 01/27/2018 Status: COMPLETED Source: [facility] 4:42 PM [facility] REPOSITORY HNO ID: [id number] Author: Samia Saenz LPN Service: (none) Author Type: (none) Type: Progress Notes Filed: 02/02/2018 8:53 AM Note Text: Message left for pt to return call to a nurse to complete TCM note. Pt was admitted to [facility] 12/24/17 and discharged 01/26/18. Dx says MRSA bacteria secondary to implantable spinal cord stimulator(now removed). Note says discharge to home with spouse and [facility], wound care. CNPTOGARCIA Observed: 01/27/2018 Status: COMPLETED Source: [facility] 12:00 AM [facility] REPOSITORY Patient Outreach (INTMWS) STEPHIE UGARTE ([id number]) 1945 F Date Time Provider Department 01/27/18 ELKIN WOOD During your visit today, we recorded the following information about you: Samia Saenz BRANT 02/02/2018 8:53 AM Signed Message left for pt to return call to a nurse to complete TCM note. Pt was admitted to [facility] 12/24/17 and discharged 01/26/18. Dx says MRSA bacteria secondary to implantable spinal cord stimulator(now removed). Note says discharge to home with spouse and [facility], wound care. Allergies As of Date: 01/27/2018 Noted Allergy Reaction ANESTHESIA [Other] 09/09/2004 8 - GI Upset Date Reviewed: 01/26/2018 Reviewed by: Xenia Lara) LALO Soto - Fully Assessed Reason for Visit: Transition Of Care [6364] Prescriptions as of 01/27/2018 Sig: ACETAMINOPHEN 325 MG TABLET Take 2 tablets by mouth every* BENZOCAINE-MENTHOL 15 MG-3.6 * Use 1 Lozenge as instructed e* Patient not taking: Reported on 01/26/2018 CLINDAMYCIN HCL 300 MG CAPSULE Take 1 capsule by mouth every* LISINOPRIL 10 MG-HYDROCHLOROT* Take 1 tablet by mouth once d* MELATONIN 3 MG TABLET Take 2 tablets by mouth daily* ONDANSETRON HCL (PF) 4 MG/2 M* Inject 4 mg intravenously bola* POLYETHYLENE GLYCOL 3350 17 G* 1 Packet by ORAL/FEEDING TUBE* VANCOMYCIN 1 GRAM/200 ML IN D* Inject 200 mL intravenously q* Patient not taking: Reported on 01/26/2018 Problem List As Of Date 01/27/2018 Noted Resolved GENERAL OSTEOARTHROSIS [M15.9] INVALID FOR* SYMPTOMATIC FEMALE CLIMACTERIC STATE [N95.1] INVALID FOR* ASA CLASS II [1001] INVALID FOR*01/14/2013 Essential hypertension, benign [I10] INVALID FOR* More... Pure hyperglyceridemia [E78.1] INVALID FOR*03/04/2016 Diverticulitis of colon [K57.32] INVALID FOR*01/14/2013 Asthmatic bronchitis [J45.909] INVALID FOR*03/27/2016 Neuritis of upper extremity [M79.2] INVALID FOR* Pes anserinus tendinitis or bursitis [VMA2477] INVALID FOR* Other disorder of muscle, ligament, and fascia *INVALID FOR* Hypercholesterolemia [E78.00] INVALID FOR* Bilateral low back pain without sciatica [M54.5]INVALID FOR*03/11/2016 Bilateral low back pain with left-sided sciatic*INVALID FOR*03/11/2016 Bilateral low back pain with sciatica [M54.40] INVALID FOR*03/11/2016 Persistent disorder of initiating or maintainin*INVALID FOR* Mild intermittent asthma without complication [*INVALID FOR* Acute midline low back pain with bilateral scia*INVALID FOR* MRSA bacteremia [R78.81] INVALID FOR*12/24/2017 More... Soft tissue abscess [L02.91] INVALID FOR*12/23/2017 More... Cholecystitis, acute [K81.0] INVALID FOR*12/23/2017 Epidural abscess [G06.2] INVALID FOR* Encounter Status:Closed by SAMIA SAENZ LPN on 02/02/18 CBC AND DIFFERENTIAL Collected: 01/26/2018 Status: F Source: [facility] 2:[address] [facility] REPOSITORY TYPE CODE TESTS RESULT OUT OF REFERENCE UNITS RANGE LAB WBC 3.70-11.00 k/uL WBC 4.94 LAB RBC 3.90-5.20 m/uL Low RBC 3.26 LAB HGB 11.5-15.5 g/dL Low Hemoglobin 9.4 LAB HCT 36.0-46.0 % Low Hematocrit 29.3 LAB MCV 80.0-100.0 fL MCV 89.9 LAB MCH 26.0-34.0 pG MCH 28.8 LAB MCHC 30.5-36.0 g/dL MCHC 32.1 LAB RDWCV 11.5-15.0 % RDW-CV High 16.9 LAB PLTCT 150-400 k/uL Platelet Count 203 Result Comment: Less than optimal volume of specimen received and tested. No clot detected. LAB MPV 9.0-12.7 fL MPV 9.3 LAB ANEUT % Neut% 54.1 LAB AANEUT 1.45-7.50 k/uL Abs Neut 2.67 LAB ALYMP % Lymph% 20.2 LAB AALYMP 1.00-4.00 k/uL Abs Lymph 1.00 LAB AMONO % Mchenry% 12.3 LAB AAMONO <0.87 k/uL Abs Mchenry 0.61 LAB AEOS % Eosin% 12.6 LAB AAEOS <0.46 k/uL Abs High Eosin 0.62 LAB ABASO % Baso% 0.8 LAB AABASO <0.11 k/uL Abs Baso 0.04 LAB AUNRBC 0 /100 WBC NRBCs High 1.2 LAB ABNRBC <0.01 k/uL High Absolute nRBC 0.06 LAB DTYP DTYPE Auto Diff Performed By: #### CBCDIF, CRET1, CRP #### [facility] [address], [place] [address] CREATININE Collected: 01/26/2018 Status: F Source: [facility] 2:28 PM [facility] REPOSITORY TYPE CODE TESTS RESULT OUT OF REFERENCE UNITS RANGE LAB CRET 0.58-0.96 mg/dL Creatinine 0.59 LAB GFRAA eGFR- >60 Amer. LAB GFRNAA . eGFR-All Other Races >60 Result Comment: eGFR (Estimated GFR) Units of measure: mL/min/1.73 meters squared eGFR is derived from the reexpressed MDRD Study equation using the following parameters: serum creatinine, age, gender and race. The creatinine assay has been calibrated to be traceable to IDMS. An eGFR <60 mL/min/1.73m2 for >3 months is consistent with chronic kidney disease. Refer to KDOQI guidelines for clinical interpretation. In patients with unstable renal function, e.g. those with acute kidney injury, the eGFR may not accurately reflect actual GFR. Performed By: #### CBCDIF, CRET1, CRP #### [facility] [address], [place] [address] C-REACTIVE PROTEIN Collected: 01/26/2018 Status: F Source: [facility] 2:28 PM [facility] REPOSITORY TYPE CODE TESTS RESULT OUT OF REFERENCE UNITS RANGE LAB CRP <0.9 mg/dL C-Reactive 0.5 Protein Performed By: #### CBCDIF, CRET1, CRP #### [facility] [employer] [address], [place] [address] DISCHARGE SUMMARY Observed: 01/23/2018 Status: F Source: [facility] 8:14 AM [facility] REPOSITORY [facility] Medical Records Department [address] [place] [address] Discharge Summary 01/22/18 1529 MR#: [id number] Acct: [id number] Name: STEPHIE UGARTE Rep #: [id number] : 1945 72 From: Primitivo Welch MD PCP: Elkin Wood MD Status: ADM IN Y Location: [facility] [place] [address] Discharge Date and Diagnosis Date of Admission: 12/24/17 Date of Discharge: 01/26/18 - Secondary Discharge Diagnosis Chronic Problems Chronic back pain (Chronic) Asthma (Chronic) HTN (hypertension) (Chronic) COPD (chronic obstructive pulmonary disease) (Chronic) Hospital Course and Treatment Imaging Results: 12/24/17 12:59 Diet: Regular Diet Diet Comments: ensure pudding one meal a day Consultations 12/24/17 Consult: Onc/Wound/strong nitric operator Routine Comment: wound vac to back Operations: None Procedures: None Summary of Care Provided: The patient is a 72 year old Female with below past medical history hospitalized for MRSA bacteremia secondary to implantable spinal cord stimulator, now removed, requiring debridement, admitted to TCU with debility, here for rehabilitation, strengthening, intravenous antibiotics, wound care, prior to discharge home with spouse. MRI of T and L-spine w/wo contrast for 01/13 showed enlarged T1-3 epidural abscess. Sees ID Dr. Osorio at [facility] on 01/26/18. Likely will need admission at that point for drainage of abscess. Discharge home with spouse, and Home Health Services. - Physical Exam Vital Signs Temp Pulse Resp BP Pulse Ox 96.8 F L 81 18 137/65 H 96 01/22/18 15:27 01/22/18 15:27 01/22/18 15:27 01/22/18 15:27 01/22/18 15:27 Oxygen Delivery Method Room Air Weight: 79.01 kg Body Mass Index (BMI) 29.7 Intake and Output for Last 24 Hours Intake Total 480 / 480 780 / 780 720 / 720 Balance 480 / 480 780 / 780 720 / 720 Discharge Diet: No Restrictions Discharge Activity: Return to Normal Activity, May Shower, Use Walker Weight Bearing Status: Weight bearing as tolerated Call your doctor if you observe: Fever of 101 or Higher, Inability to urinate, Inability to have a bowel movement, Shortness of breath, Chest pain, Uncontrolled pain Home Medications: Medications to take at Discharge Melatonin 6 mg PO QHS 12/24/17 Oxycodone [Oxyir] 5 - 10 mg PO Q6H PRN PRN 12/24/17 Acetaminophen [Tylenol] 1,000 mg PO Q6H PRN PRN tablet 01/22/18 Hydrocortisone 2.5% Crm [Hytone] 1 applic TOPICAL TID PRN PRN #1 tube 01/22/18 Iron Polysaccharide Complex [Ferrex 150] 150 mg PO DAILYCM #30 capsule 01/22/18 Lorazepam [Ativan] 0.5 mg PO Q6H PRN PRN #60 tab 01/22/18 Menthol/Lanolin/Calamine/Znox [Calmoseptine Ointment] 1 applic TOPICAL BID@0600,2200 #0 tube 01/22/18 Mineral Oil/Petrolatum,White [Eucerin] 1 applic TOPICAL 2200 jar 01/22/18 Nutritional Supplement [Rubén - ORANGE FLAVOR] 1 packet PO BIDCM #60 packet 01/22/18 Nystatin Powder [Mycostatin Powder] 1 applic TOPICAL 0600,2200 bottle 01/22/18 Ondansetron [Zofran Odt] 8 mg PO Q8H PRN PRN #30 tab 01/22/18 Oxycodone [Oxyir] 5 - 10 mg PO Q6H PRN PRN 5 Days #30 tab 01/22/18 Polyethylene Glycol 3350 [Miralax] 17 gm PO DAILY #30 packet 01/22/18 Following Prescrptions Were Given to Patient: Lorazepam [Ativan] 0.5 mg PO Q6H PRN PRN #60 tab PRN Reason: ANXIETY Oxycodone [Oxyir] 5 - 10 mg PO Q6H PRN PRN 5 Days #30 tab PRN Reason: Severe Pain (6-10/10) Ondansetron [Zofran Odt] 8 mg PO Q8H PRN PRN #30 tab PRN Reason: Nausea Hydrocortisone 2.5% Crm [Hytone] 1 applic TOPICAL TID PRN PRN #1 tube PRN Reason: Itching Iron Polysaccharide Complex [Ferrex 150] 150 mg PO DAILYCM #30 capsule Polyethylene Glycol 3350 [Miralax] 17 gm PO DAILY #30 packet Nutritional Supplement [Rubén - ORANGE FLAVOR] 1 packet PO BIDCM #60 packet Primary Care Physician: Elkin Wood MD [Primary Care Provider] - Please follow up with your Primary Care Physician in: 1 week. Please Follow Up With: [facility] When: [phone] Please Follow Up With: Logan Pandey MD When: [phone] Please Follow Up With: Denisse Osorio When: 01/26/2018, 1:00PM. Medical Necessity - Tobacco Use Smoking Status: Never smoker Tobacco Use: Non-smoker Meaningful Use Info Meaningful Use Diagnoses (Choose all that apply): None applicable 01/23/18813 <Electronically signed by Primitivo Welch MD> Date Primitivo Welch MD Cosigner Signature (if applicable): Date CC: Elkin Wood MD; Primitivo Welch MD Signed HOME HEALTH PROGRESS Observed: 01/22/2018 Status: F Source: [place] 3:32 PM [facility] REPOSITORY [facility] Medical Records Department [address] [place] [id number] Home Health Progress Note [id number] Encounter Encounter Date: 01/22/18 1532 MR#: [id number] Acct: [id number] Name: STEPHIE UGARTE Rep #: [id number] : 1945 72 From: Primitivo Welch MD PCP: Elkin Wood MD Status: ADM IN Location: [place] [address] Home Health Note - Plan Overview of reason of hospitalization: The patient is a 72 year old Female with below past medical history hospitalized for MRSA bacteremia secondary to implantable spinal cord stimulator, now removed, requiring debridement, admitted to [facility] with debility, here for rehabilitation, strengthening, intravenous antibiotics, wound care, prior to discharge home with spouse. MRI of T and L-spine w/wo contrast for 01/13 showed enlarged T1-3 epidural abscess. Sees ID Dr. Osorio at [facility] on 01/26/18. Likely will need admission at that point for drainage of abscess. Discharge home with spouse, and Home Health Services. Problems: Complete List of Medical Problems Cellulitis (Acute) Altered mental status, unspecified (Acute) Sepsis affecting skin (Acute) Acute encephalopathy (Acute) MRSA bacteremia (Acute) Hip pain, right (Acute) Acute back pain (Acute) Chronic back pain (Chronic) Asthma (Chronic) HTN (hypertension) (Chronic) COPD (chronic obstructive pulmonary disease) (Chronic) - Requirements and Reasons Disciplines Needed/Ordered: Halfway Reason for Disciplines: Disease Specific Monitoring/education, Medication Management/Knowledge Deficit, Wound Care Related To: Limited/Poor Endurance, Fall Risk Patient is unable to leave the home: Without Aid of Supportive Devices (crutches, cane, wheelchair, walker), Without the assistance of another person 01/22/18 1532 <Electronically signed by Primitivo Welch MD> Date Primitivo Welch MD Cosigner Signature (if indicated): Date CC: Signed DISCHARGE INSTRUCTION Observed: 01/22/2018 Status: F Source: [place] 3:29 PM [facility] REPOSITORY [facility] Medical Records Department [address] [place] [address] Instructions for Home/Discharge Instructions 01/22/18 1527 MR#: [id number] Acct: [id number] Name: STEPHIE UGARTE Rep #: [id number] : 1945 72 From: Primitivo Welch MD PCP: Elkin Wood MD Status: ADM IN You will use the following diet at home:: No restrictions, Regular Your food should be the consistency of: Regular Your liquids should be the consistency of: Regular/Thin Discharge Activity: Return to Normal Activity, May Shower, Use Walker Weight Bearing Status: Weight bearing as tolerated Call your doctor if you observe: Fever of 101 or Higher, Inability to urinate, Inability to have a bowel movement, Shortness of breath, Chest pain, Uncontrolled pain Allergies/Adverse Reactions: Allergies vancomycin Allergy (Verified 01/08/18 07:40) Rash Medications to take at Discharge Melatonin 6 mg PO QHS 12/24/17 Oxycodone [Oxyir] 5 - 10 mg PO Q6H PRN PRN 12/24/17 Acetaminophen [Tylenol] 1,000 mg PO Q6H PRN PRN tablet 01/22/18 Hydrocortisone 2.5% Crm [Hytone] 1 applic TOPICAL TID PRN PRN #1 tube 01/22/18 Iron Polysaccharide Complex [Ferrex 150] 150 mg PO DAILYCM #30 capsule 01/22/18 Lorazepam [Ativan] 0.5 mg PO Q6H PRN PRN #60 tab 01/22/18 Menthol/Lanolin/Calamine/Znox [Calmoseptine Ointment] 1 applic TOPICAL BID@0600,2200 #0 tube 01/22/18 Mineral Oil/Petrolatum,White [Eucerin] 1 applic TOPICAL 2200 jar 01/22/18 Nutritional Supplement [Rubén - ORANGE FLAVOR] 1 packet PO BIDCM #60 packet 01/22/18 Nystatin Powder [Mycostatin Powder] 1 applic TOPICAL 0600,2200 bottle 01/22/18 Ondansetron [Zofran Odt] 8 mg PO Q8H PRN PRN #30 tab 01/22/18 Oxycodone [Oxyir] 5 - 10 mg PO Q6H PRN PRN 5 Days #30 tab 01/22/18 Polyethylene Glycol 3350 [Miralax] 17 gm PO DAILY #30 packet 01/22/18 The following prescriptions were given: Lorazepam [Ativan] 0.5 mg PO Q6H PRN PRN #60 tab PRN Reason: ANXIETY Oxycodone [Oxyir] 5 - 10 mg PO Q6H PRN PRN 5 Days #30 tab PRN Reason: Severe Pain (6-10/10) Ondansetron [Zofran Odt] 8 mg PO Q8H PRN PRN #30 tab PRN Reason: Nausea Hydrocortisone 2.5% Crm [Hytone] 1 applic TOPICAL TID PRN PRN #1 tube PRN Reason: Itching Iron Polysaccharide Complex [Ferrex 150] 150 mg PO DAILYCM #30 capsule Polyethylene Glycol 3350 [Miralax] 17 gm PO DAILY #30 packet Nutritional Supplement [Rubén - ORANGE FLAVOR] 1 packet PO BIDCM #60 packet Primary Care Physician: Elkin Wood MD [Primary Care Provider] - Please follow up with your Primary Care Physician in: 1 week. Test Results: Test results from this visit will be discussed in further detail at your follow-up appointment, if applicable. Please Follow Up With: [facility] When: [phone] Please Follow Up With: Logan Pandey MD When: [phone] Please Follow Up With: Denisse Osorio When: 01/26/2018, 1:00PM. Proposed Discharge Date: 12/27/17 01/22/18 1529 <Electronically signed by Primitivo Welch MD> Date Primitivo Welch MD CC: Elkin Wood MD; Logan Pandey MD SPINE LUMBAR W/WO Observed: 01/19/2018 Status: F Source: [place] CONTRAST 10:19 AM [facility] REPOSITORY [facility] Imaging Services [address] [place] [address] Spine Lumbar W/WO Contrast MR#: [id number] Acct: [id number] Name: STEPHIE UGARTE Rep #: [id number] : 1945 F 72 From: Dk Lacy PCP: Elkin Wood MD Status: REG CLI Study: Spine Lumbar W/WO Contrast Date of Exam: 01/19/18 Exam# [id number] Ordering Dr: Logan Pandey MD STUDY: MRI LUMBAR SPINE WITH AND WITHOUT CONTRAST REASON FOR EXAM: Female, 72 years old. Abcess; prior stimulator placement and removal d/t infection. TECHNIQUE: Standardized fat and water weighted pulse sequences were obtained in the sagittal and axial planes. 8 ml of Gadavist contrast material was administered for the contrast portion of the examination. COMPARISON: December 11, 2017 FINDINGS: T12-L1: There is minimal disc space narrowing and endplate spondylosis. There is no significant disc herniation, central canal or foraminal stenosis. Normal lumbar lordosis. There is no substantial scoliosis. Normal conus medullaris that terminates at the L1 L1-2: There is mild disc space narrowing and endplate spondylosis. There is a mild disc osteophyte complex asymmetric to right with moderate right foraminal stenosis. There is no significant central canal or left foraminal stenosis. L2-3: There is moderate disc space narrowing and endplates spondylosis. There is extensive facet osteoarthropathy with grade 1 anterolisthesis and disc uncovering with severe central canal stenosis. There is moderate bilateral foraminal stenosis. L3-4: There is moderate disc space narrowing and endplates spondylosis.. There is a decompression laminectomy and posterior transpedicular fusion. The central canal and bilateral neural foraminal are widely patent. L4-5: There is moderate disc space narrowing and endplates spondylosis.. There is a decompression laminectomy and posterior transpedicular fusion. The central canal and bilateral neural foraminal are widely patent. There is stable grade 1 anterolisthesis. There is stable laminectomy defect fluid collection. L5-S1: There is moderate disc space narrowing and endplates spondylosis. There is a decompression laminectomy and posterior transpedicular fusion. The central canal is widely patent. There is mild bilateral foraminal status. Normal visualized sacral ala. MRI/Spine Lumbar W/WO Contrast IMPRESSION: Stable examination. Electronically Signed: Dk Lacy MD at 10:44 EST Tel , Service support , CC: Elkin Wood MD; Logan Pandey MD Program Schedule Clerk: Signed SPINE THORACIC W/WO Observed: 01/19/2018 Status: F Source: [place] CONTR[facility] 10:19 AM [facility] REPOSITORY [facility] Imaging Services [address] [address] Spine Thoracic W/WO Contrast MR#: [id number] Acct: [id number] Name: STEPHIE UGARTE Rep #: [id number] : 1945 F 72 From: Dk Lacy PCP: Elkin Wood MD Status: REG CLI Study: Spine Thoracic W/WO Contrast Date of Exam: 01/19/18 Exam# [id number] Ordering Dr: Logan Pandey MD STUDY: MRI THORACIC SPINE WITH AND WITHOUT CONTRAST REASON FOR EXAM: Female, 72 years old. Back pain, infection -- Abcess; prior stimulator placement and removal d/t infection. TECHNIQUE: 8 ml of Gadavist was administered intravenously for the contrast portion of the examination. COMPARISON: December 11, 2017 FINDINGS: Normal kyphosis of the thoracic spine. There is no substantial scoliosis. T1-2, T2-3, T3-4, T4-5, T5-6, T6-7, T7-8, T8-9, T9-10, T10- 11, T11-12: There is diffuse disc space narrowing and endplate spondylosis. T1-T3: There is increased ventral epidural enhancement measuring approximately 0.5 x 1.0 x 5.6 cm with mild central canal stenosis. There is extension into the bilateral neural foramina T8-T11: Again noted is stable minimal enhancement at the posterior epidural space. T11/T12: Again noted is unchanged infiltration and enhancement at the interspinous processes. There is decreased subcutaneous fluid collection. MRI/Spine Thoracic W/WO Contrast IMPRESSION: T1-T3: Increased ventral epidural abscess. N.B. : The above information has been verbally conveyed by Dk Lacy MD to Dr. Dannie MD, on 01/20/2018 12:32:54 (ET). Electronically Signed: Dk Lacy MD at 10:44 EST Tel , Service support , CC: Elkin Wood MD; Logan Pandey MD Program Schedule Clerk: Signed MR-SPINE THORACIC Observed: 01/19/2018 Status: F Source: [place] W/WO CONTRAST IMPORT 12:00 AM [facility] REPOSITORY Images were obtained outside of [facility] [id number] MR-SPINE LUMBAR W/WO Observed: 01/19/2018 Status: F Source: [place] CONTR[place] IMPORT 12:00 AM [facility] REPOSITORY Images were obtained outside of [facility] [id number] SERUM CREATININE AND Collected: 01/18/2018 Status: F Source: [place] GFR 6:00 AM [facility] REPOSITORY TYPE CODE TESTS RESULT OUT OF RANGE REFERENCE UNITS LAB L501.1100 0.55-1.02 mg/dL Normal 0.78 CREAT,SERUM Result Comment: The validity of the calculated GFR AND GFRAA in patients over 70 years has not been determined. Clinical correlation is essential. LAB L501.1110 >60 mL/min Normal EST GFR 77 Result Comment: Non- GFR Calc LAB L501.1115 >60 mL/min Normal EST GFR - AA 93 Result Comment: GFR Calc LAB L501.1255 ml/min Normal Estimated CRCL 42.68 Performed By: #### L501.1105, L501.6710 #### [facility] [address] [place], [address] CRP Collected: 01/18/2018 Status: F Source: [place] 6:00 AM [facility] REPOSITORY TYPE CODE TESTS RESULT OUT OF RANGE REFERENCE UNITS LAB L501.6710 0.0-3.0 mg/L High 13.10 C-REACTIVE PROT Result Comment: C-Reactive Protein (CRP) provides useful information for the diagnosis, therapy and monitoring of inflammatory processes and associated diseases. For the evaluation of Relative Risk for Cardiovascular Disease, a High Sensitivity CRP (HSCRP) should be ordered. Performed By: #### L501.1105, L501.6710 #### [facility] [address] [place], [place], [address] CBC W/DIFF, AUTOMATED Collected: 01/18/2018 Status: F Source: [place] 6:00 AM [facility] REPOSITORY TYPE CODE TESTS RESULT OUT OF RANGE REFERENCE UNITS LAB L100.1000 4.4-11.0 K/mm3 Normal WBC 6.2 LAB L100.1200 4.2-5.4 M/mm3 Low RBC 2.93 LAB L100.1300 12.0-15.0 g/dl Low HGB 8.0 LAB L100.1400 37-47 % Low HCT 25.0 LAB L100.1500 81-99 fL Normal MCV 85.3 LAB L100.1600 27.0-32.0 pg Normal MCH 27.3 LAB L100.1700 32-36 g/gl Normal MCHC 32.0 LAB L100.1810 11.6-14.6 % High RDW CV 16.6 LAB L100.1820 35.1-43.9 fl High RDW SD 49.3 LAB L100.1900 150-450 K/mm3 Normal PLT 166 LAB L100.2000 6.2-12.0 fl Normal MPV 8.0 LAB L100.2100 47-70 % Low NEUT% 37.9 LAB L100.2200 19-41 % Normal LY% 20.1 LAB L100.2300 0-10 % High MONO% 13.3 LAB L100.2400 0-5 % High EO% 27.6 LAB L100.2500 0-1 % Normal BASO% 0.8 LAB L100.2550 0.0-0.9 % Normal IM GRAN % 0.300 Result Comment: IG% - Immature Granulocytes (promyelocytes, myelocytes and metamyelocytes) > 1% indicates that a LEFT SHIFT is Present. LAB L100.2620 2.0-7.7 X10 3/uL Normal Absolute Neut 2.3 LAB L100.2720 0.83-4.51 X10 3/ul Normal Absolute Lymph 1.24 Performed By: #### L100.0100 #### [facility] [address] [place], [address] BASIC METABOLIC Collected: 01/17/2018 Status: F Source: [place] PROFILE (BMP) 7:45 AM [facility] REPOSITORY TYPE CODE TESTS RESULT OUT OF RANGE REFERENCE UNITS LAB L501.0100 74-106 mg/dL Normal GLU 90 Result Comment: Please note revised GLUCOSE reference range effective 2017. LAB L501.1000 7-18 mg/dL High BUN 47 LAB L501.1100 0.55-1.02 mg/dL Normal CREAT,SERUM 0.87 Result Comment: The validity of the calculated GFR AND GFRAA in patients over 70 years has not been determined. Clinical correlation is essential. LAB L501.1110 >60 mL/min Normal EST GFR 68 Result Comment: Non- GFR Calc LAB L501.1115 >60 mL/min Normal EST GFR - AA 82 Result Comment: GFR Calc LAB L501.1255 ml/min Normal Estimated CRCL 49.06 LAB L501.1300 10-20 RATIO High BUN/CRE 53.8 LAB L501.2200 8.5-10 mg/dL Normal .1 CA 8.5 LAB L501.5300 136-14 mmol/L Normal 5 NA 140 LAB L501.5600 3.5-5. mmol/L Normal 1 K 4.1 LAB L501.5900 98-107 mmol/L Normal CL 105 LAB L501.6100 21.0-3 mmol/L Normal 2.0 CO2 27.0 LAB L501.6200 5-15 Normal GAP 8 Performed By: #### L500.2500 #### [facility] [address] [facility] [place], [address] CBC W/DIFF, AUTOMATED Collected: 01/15/2018 Status: F Source: [place] 6:10 AM [facility] REPOSITORY Order Comment: SPECIMEN OBTAINED FROM LINE DRAW TYPE CODE TESTS RESULT OUT OF RANGE REFERENCE UNITS LAB L100.1000 4.4-11.0 K/mm3 Normal WBC 9.0 LAB L100.1200 4.2-5.4 M/mm3 Low RBC 2.90 LAB L100.1300 12.0-15.0 g/dl Low HGB 8.1 LAB L100.1400 37-47 % Low HCT 25.2 LAB L100.1500 81-99 fL Normal MCV 86.9 LAB L100.1600 27.0-32.0 pg Normal MCH 27.9 LAB L100.1700 32-36 g/gl Normal MCHC 32.1 LAB L100.1810 11.6-14.6 % High RDW CV 15.8 LAB L100.1820 35.1-43.9 fl High RDW SD 46.9 LAB L100.1900 150-450 K/mm3 Normal PLT 245 LAB L100.2000 6.2-12.0 fl Normal MPV 8.1 LAB L100.2100 47-70 % Low NEUT% 46.5 LAB L100.2200 19-41 % Low LY% 18.8 LAB L100.2300 0-10 % High MONO% 12.8 LAB L100.2400 0-5 % High EO% 20.9 LAB L100.2500 0-1 % Normal BASO% 0.3 LAB L100.2550 0.0-0.9 % Normal IM GRAN % 0.700 Result Comment: IG% - Immature Granulocytes (promyelocytes, myelocytes and metamyelocytes) > 1% indicates that a LEFT SHIFT is Present. LAB L100.2620 2.0-7.7 X10 3/uL Normal Absolute Neut 4.2 LAB L100.2720 0.83-4.51 X10 3/ul Normal Absolute Lymph 1.69 Performed By: #### L100.0100 #### [facility] [address] [place], [address] BASIC METABOLIC Collected: 01/15/2018 Status: F Source: [place] PROFILE ([facility]) 6:10 AM [facility] REPOSITORY Order Comment: SPECIMEN OBTAINED FROM LINE DRAW TYPE CODE TESTS RESULT OUT OF RANGE REFERENCE UNITS LAB L501.0100 74-106 mg/dL Normal GLU 89 Result Comment: Please note revised GLUCOSE reference range effective 2017. LAB L501.1000 7-18 mg/dL High BUN 77 LAB L501.1100 0.55-1.02 mg/dL High CREAT,SERUM 1.38 Result Comment: The validity of the calculated GFR AND GFRAA in patients over 70 years has not been determined. Clinical correlation is essential. LAB L501.1110 >60 mL/min Low EST GFR 40 Result Comment: Non- GFR Calc LAB L501.1115 >60 mL/min Low EST GFR - AA 48 Result Comment: GFR Calc LAB L501.1255 ml/min Normal Estimated CRCL 30.93 LAB L501.1300 10-20 RATIO High BUN/CRE 55.8 LAB L501.2200 8.5-10 mg/dL Low .1 CA 7.9 LAB L501.5300 136-14 mmol/L Low 5 NA 135 LAB L501.5600 3.5-5. mmol/L Normal 1 K 4.8 LAB L501.5900 98-107 mmol/L Normal CL 99 LAB L501.6100 21.0-3 mmol/L Normal 2.0 CO2 26.0 LAB L501.6200 5-15 Normal GAP 10 Performed By: #### L500.2500 #### [facility] [address] [place], [place], [address] CBC W/DIFF, AUTOMATED Collected: 01/11/2018 Status: F Source: [place] 6:53 AM [facility] REPOSITORY Order Comment: SPECIMEN OBTAINED FROM LINE DRAW TYPE CODE TESTS RESULT OUT OF RANGE REFERENCE UNITS LAB L100.1000 4.4-11.0 K/mm3 Normal WBC 8.6 LAB L100.1200 4.2-5.4 M/mm3 Low RBC 3.32 LAB L100.1300 12.0-15.0 g/dl Low HGB 9.1 LAB L100.1400 37-47 % Low HCT 28.2 LAB L100.1500 81-99 fL Normal MCV 84.9 LAB L100.1600 27.0-32.0 pg Normal MCH 27.4 LAB L100.1700 32-36 g/gl Normal MCHC 32.3 LAB L100.1810 11.6-14.6 % High RDW CV 15.4 LAB L100.1820 35.1-43.9 fl High RDW SD 47.6 LAB L100.1900 150-450 K/mm3 Normal PLT 291 LAB L100.2000 6.2-12.0 fl Normal MPV 8.2 LAB L100.2100 47-70 % Normal NEUT% 57.0 LAB L100.2200 19-41 % Normal LY% 21.1 LAB L100.2300 0-10 % High MONO% 10.5 LAB L100.2400 0-5 % High EO% 10.0 LAB L100.2500 0-1 % Normal BASO% 0.6 LAB L100.2550 0.0-0.9 % Normal IM GRAN % 0.800 Result Comment: IG% - Immature Granulocytes (promyelocytes, myelocytes and metamyelocytes) > 1% indicates that a LEFT SHIFT is Present. LAB L100.2620 2.0-7.7 X10 3/uL Normal Absolute Neut 4.9 LAB L100.2720 0.83-4.51 X10 3/ul Normal Absolute Lymph 1.82 Performed By: #### L100.0100 #### [facility] [address] [place], [address] SERUM CREATININE AND Collected: 01/11/2018 Status: C Source: [place] GFR 6:53 AM [facility] REPOSITORY Order Comment: SPECIMEN OBTAINED FROM LINE DRAW TYPE CODE TESTS RESULT OUT OF RANGE REFERENCE UNITS LAB L501.1100 0.55-1.02 mg/dL Normal 0.96 CREAT,SERUM Result Comment: The validity of the calculated GFR AND GFRAA in patients over 70 years has not been determined. Clinical correlation is essential. The validity of the calculated GFR AND GFRAA in patients over 70 years has not been determined. Clinical correlation is essential. AMENDED REPORT 01/11/182299 CREAT,SERUM previously reported as: 0.75 mg/dL The validity of the calculated GFR AND GFRAA in patients over 70 years has not been determined. Clinical correlation is essential. LAB L501.1110 >60 mL/min Normal EST GFR 61 Result Comment: Non- GFR Calc AMENDED REPORT 01/11/182299 EST GFR previously reported as: 81 mL/min Non- GFR Calc LAB L501.1115 >60 mL/min Normal EST GFR - AA 74 Result Comment: GFR Calc AMENDED REPORT 01/11/182299 EST GFR - AA previously reported as: 98 mL/min GFR Calc LAB L501.1255 ml/min Normal Estimated CRCL 44.46 Result Comment: AMENDED REPORT 01/11/182299 Estimated CRCL previously reported as: 42.68 ml/min Performed By: #### L501.1105, L501.6710 #### [facility] [address] [place], [address] CRP Collected: 01/11/2018 Status: F Source: [place] 6:53 AM [facility] REPOSITORY Order Comment: SPECIMEN OBTAINED FROM LINE DRAW TYPE CODE TESTS RESULT OUT OF RANGE REFERENCE UNITS LAB L501.6710 0.0-3.0 mg/L High 6.73 C-REACTIVE PROT Result Comment: C-Reactive Protein (CRP) provides useful information for the diagnosis, therapy and monitoring of inflammatory processes and associated diseases. For the evaluation of Relative Risk for Cardiovascular Disease, a High Sensitivity CRP (HSCRP) should be ordered. Performed By: #### L501.1105, L501.6710 #### [facility] [address] [facility] [place], [address] CBC W/DIFF, AUTOMATED Collected: 01/08/2018 Status: F Source: [place] 7:15 AM [facility] REPOSITORY TYPE CODE TESTS RESULT OUT OF RANGE REFERENCE UNITS LAB L100.1000 4.4-11.0 K/mm3 Normal WBC 5.7 LAB L100.1200 4.2-5.4 M/mm3 Low RBC 3.14 LAB L100.1300 12.0-15.0 g/dl Low HGB 8.4 LAB L100.1400 37-47 % Low HCT 26.9 LAB L100.1500 81-99 fL Normal MCV 85.7 LAB L100.1600 27.0-32.0 pg Low MCH 26.8 LAB L100.1700 32-36 g/gl Low MCHC 31.2 LAB L100.1810 11.6-14.6 % High RDW CV 15.5 LAB L100.1820 35.1-43.9 fl High RDW SD 48.7 LAB L100.1900 150-450 K/mm3 Normal PLT 292 LAB L100.2000 6.2-12.0 fl Normal MPV 8.9 LAB L100.2100 47-70 % High NEUT% 71.2 LAB L100.2200 19-41 % Low LY% 10.0 LAB L100.2300 0-10 % Normal MONO% 6.0 LAB L100.2400 0-5 % High EO% 12.0 LAB L100.2500 0-1 % Normal BASO% 0.4 LAB L100.2550 0.0-0.9 % Normal IM GRAN % 0.400 Result Comment: IG% - Immature Granulocytes (promyelocytes, myelocytes and metamyelocytes) > 1% indicates that a LEFT SHIFT is Present. LAB L100.2620 2.0-7.7 X10 3/uL Normal Absolute Neut 4.1 LAB L100.2720 0.83-4.51 X10 3/ul Low Absolute Lymph 0.57 Performed By: #### L100.0100 #### [facility] [address] [facility] [place], [place], [address] BASIC METABOLIC Collected: 01/08/2018 Status: F Source: [place] PROFILE ([facility]) 7:15 AM [facility] REPOSITORY TYPE CODE TESTS RESULT OUT OF RANGE REFERENCE UNITS LAB L501.0100 74-106 mg/dL Normal GLU 95 Result Comment: Please note revised GLUCOSE reference range effective 2017. LAB L501.1000 7-18 mg/dL High BUN 31 LAB L501.1100 0.55-1.02 mg/dL Normal CREAT,SERUM 0.82 Result Comment: The validity of the calculated GFR AND GFRAA in patients over 70 years has not been determined. Clinical correlation is essential. LAB L501.1110 >60 mL/min Normal EST GFR 73 Result Comment: Non- GFR Calc LAB L501.1115 >60 mL/min Normal EST GFR - AA 89 Result Comment: GFR Calc LAB L501.1255 ml/min Normal Estimated CRCL 52.05 LAB L501.1300 10-20 RATIO High BUN/CRE 38.0 LAB L501.2200 8.5-10 mg/dL Normal .1 CA 8.5 LAB L501.5300 136-14 mmol/L Normal 5 NA 140 LAB L501.5600 3.5-5. mmol/L Normal 1 K 4.3 LAB L501.5900 98-107 mmol/L Normal CL 103 LAB L501.6100 21.0-3 mmol/L Normal 2.0 CO2 28.0 LAB L501.6200 5-15 Normal GAP 9 Performed By: #### L500.2500 #### [facility] [address] [place], [address] HOSP Observed: 01/06/2018 Status: COMPLETED Source: [place] 12:00 AM [facility] REPOSITORY Patient Update (INFDMN) GAVINOSTEPHIE Serjio ([id number]) 1945 F Date Time Provider Department 01/06/18 DENISSE OSORIO INFDMN During your visit today, we recorded the following information about you: Maksim Cunningham 01/06/2018 3:57 PM Signed Pt currently at [facility] transitional care unit (TCU) / [phone] IV Vancomycin stopped on 01/05 d/t rash development (see CoPAT management notes for further detail) Maksim Cunningham, RN, BSN, CRNI Allergies As of Date: 01/06/2018 Noted Allergy Reaction ANESTHESIA [Other] 09/09/2004 8 - GI Upset Date Reviewed: 12/23/2017 Reviewed by: Britni (Jinny) JINNY Palomo - Fully Assessed Reason for Visit: CoPat Stop [3636] Prescriptions as of 01/06/2018 Sig: ONDANSETRON HCL (PF) 4 MG/2 M* Inject 4 mg intravenously bola* POLYETHYLENE GLYCOL 3350 17 G* 1 Packet by ORAL/FEEDING TUBE* BENZOCAINE-MENTHOL 15 MG-3.6 * Use 1 Lozenge as instructed e* VANCOMYCIN 1 GRAM/200 ML IN D* Inject 200 mL intravenously q* MELATONIN 3 MG TABLET Take 2 tablets by mouth daily* ACETAMINOPHEN 325 MG TABLET Take 2 tablets by mouth every* LISINOPRIL 10 MG-HYDROCHLOROT* Take 1 tablet by mouth once d* Problem List As Of Date 01/06/2018 Noted Resolved GENERAL OSTEOARTHROSIS [M15.9] INVALID FOR* SYMPTOMATIC FEMALE CLIMACTERIC STATE [N95.1] INVALID FOR* ASA CLASS II [1001] INVALID FOR*01/14/2013 Essential hypertension, benign [I10] INVALID FOR* More... Pure hyperglyceridemia [E78.1] INVALID FOR*03/04/2016 Diverticulitis of colon [K57.32] INVALID FOR*01/14/2013 Asthmatic bronchitis [J45.909] INVALID FOR*03/27/2016 Neuritis of upper extremity [M79.2] INVALID FOR* Pes anserinus tendinitis or bursitis [ZBQ2347] INVALID FOR* Other disorder of muscle, ligament, and fascia *INVALID FOR* Hypercholesterolemia [E78.00] INVALID FOR* Bilateral low back pain without sciatica [M54.5]INVALID FOR*03/11/2016 Bilateral low back pain with left-sided sciatic*INVALID FOR*03/11/2016 Bilateral low back pain with sciatica [M54.40] INVALID FOR*03/11/2016 Persistent disorder of initiating or maintainin*INVALID FOR* Mild intermittent asthma without complication [*INVALID FOR* Acute midline low back pain with bilateral scia*INVALID FOR* MRSA bacteremia [R78.81] INVALID FOR*12/24/2017 More... Soft tissue abscess [L02.91] INVALID FOR*12/23/2017 More... Cholecystitis, acute [K81.0] INVALID FOR*12/23/2017 Epidural abscess [G06.2] INVALID FOR* Visit Notes: >> Maksim Cunningham Wed Jan 06, 2018 3:55 PM Status: Signed Pt currently at [facility] transitional care unit (TCU) / [phone] IV Vancomycin stopped on 01/05 d/t rash development (see CoPAT management notes for further detail) Maksim Cunningham, RN, BSN, CRNI Follow-up and Disposition History Recorded Encounter Status:Closed by MAKSIM CUNNINGHAM on 01/06/18 CBC W/DIFF, AUTOMATED Collected: 01/04/2018 Status: F Source: [place] 7:45 AM [facility] REPOSITORY Order Comment: NURSE DRAW CBN TYPE CODE TESTS RESULT OUT OF RANGE REFERENCE UNITS LAB L100.1000 4.4-11.0 K/mm3 Normal WBC 5.5 LAB L100.1200 4.2-5.4 M/mm3 Low RBC 3.38 LAB L100.1300 12.0-15.0 g/dl Low HGB 9.2 LAB L100.1400 37-47 % Low HCT 28.9 LAB L100.1500 81-99 fL Normal MCV 85.5 LAB L100.1600 27.0-32.0 pg Normal MCH 27.2 LAB L100.1700 32-36 g/gl Low MCHC 31.8 LAB L100.1810 11.6-14.6 % High RDW CV 15.4 LAB L100.1820 35.1-43.9 fl High RDW SD 48.4 LAB L100.1900 150-450 K/mm3 Normal PLT 295 LAB L100.2000 6.2-12.0 fl Normal MPV 8.8 LAB L100.2100 47-70 % Normal NEUT% 57.4 LAB L100.2200 19-41 % Low LY% 16.8 LAB L100.2300 0-10 % High MONO% 13.7 LAB L100.2400 0-5 % High EO% 11.2 LAB L100.2500 0-1 % Normal BASO% 0.5 LAB L100.2550 0.0-0.9 % Normal IM GRAN % 0.400 Result Comment: IG% - Immature Granulocytes (promyelocytes, myelocytes and metamyelocytes) > 1% indicates that a LEFT SHIFT is Present. LAB L100.2620 2.0-7.7 X10 3/uL Normal Absolute Neut 3.1 LAB L100.2720 0.83-4.51 X10 3/ul Normal Absolute Lymph 0.92 Performed By: #### L100.0100 #### [facility] [address] [place], [place], [address] SERUM CREATININE AND Collected: 01/04/2018 Status: F Source: [place] GFR 7:45 AM [facility] REPOSITORY Order Comment: NURSE DRAW CBN TYPE CODE TESTS RESULT OUT OF RANGE REFERENCE UNITS LAB L501.1100 0.55-1.02 mg/dL Normal 0.69 CREAT,SERUM Result Comment: The validity of the calculated GFR AND GFRAA in patients over 70 years has not been determined. Clinical correlation is essential. LAB L501.1110 >60 mL/min Normal EST GFR 89 Result Comment: Non- GFR Calc LAB L501.1115 >60 mL/min Normal EST GFR - AA 108 Result Comment: GFR Calc LAB L501.1255 ml/min Normal Estimated CRCL 42.68 Performed By: #### L501.1105, L501.6710 #### [facility] [address] [place], [address] CRP Collected: 01/04/2018 Status: F Source: [place] 7:45 AM [facility] REPOSITORY Order Comment: NURSE DRAW CBN TYPE CODE TESTS RESULT OUT OF RANGE REFERENCE UNITS LAB L501.6710 0.0-3.0 mg/L High 17.80 C-REACTIVE PROT Result Comment: C-Reactive Protein (CRP) provides useful information for the diagnosis, therapy and monitoring of inflammatory processes and associated diseases. For the evaluation of Relative Risk for Cardiovascular Disease, a High Sensitivity CRP (HSCRP) should be ordered. Performed By: #### L501.1105, L501.6710 #### [facility] [address] [place], [address] HOSP Observed: 01/04/2018 Status: COMPLETED Source: [place] 12:00 AM [facility] REPOSITORY Patient Update (INFDMN) STEPHIE UGARTE ([id number]) 1945 F Date Time Provider Department 01/04/18 DENISSE OSORIO INFDMN During your visit today, we recorded the following information about you: Allergies As of Date: 01/04/2018 Noted Allergy Reaction ANESTHESIA [Other] 09/09/2004 8 - GI Upset Date Reviewed: 12/23/2017 Reviewed by: Britni Fitzpatrick) JINNY Palomo - Fully Assessed Reason for Visit: Outside Labs Results [437] Cmt: copat Order(s):C-REACTIVE PROTEIN (CRP) [SQCRP] Order #: [id number] CBC + DIFF [SQCBCDIF] Order #: [id number] COMP METABOLIC PANEL [SQCMP] Order #: [id number] VANCOMYCIN PRE DOSE [SQVANCPR] Order #: [id number] Prescriptions as of 01/04/2018 Sig: ONDANSETRON HCL (PF) 4 MG/2 M* Inject 4 mg intravenously bola* POLYETHYLENE GLYCOL 3350 17 G* 1 Packet by ORAL/FEEDING TUBE* BENZOCAINE-MENTHOL 15 MG-3.6 * Use 1 Lozenge as instructed e* VANCOMYCIN 1 GRAM/200 ML IN D* Inject 200 mL intravenously q* MELATONIN 3 MG TABLET Take 2 tablets by mouth daily* ACETAMINOPHEN 325 MG TABLET Take 2 tablets by mouth every* LISINOPRIL 10 MG-HYDROCHLOROT* Take 1 tablet by mouth once d* Problem List As Of Date 01/04/2018 Noted Resolved GENERAL OSTEOARTHROSIS [M15.9] INVALID FOR* SYMPTOMATIC FEMALE CLIMACTERIC STATE [N95.1] INVALID FOR* ASA CLASS II [1001] INVALID FOR*01/14/2013 Essential hypertension, benign [I10] INVALID FOR* More... Pure hyperglyceridemia [E78.1] INVALID FOR*03/04/2016 Diverticulitis of colon [K57.32] INVALID FOR*01/14/2013 Asthmatic bronchitis [J45.909] INVALID FOR*03/27/2016 Neuritis of upper extremity [M79.2] INVALID FOR* Pes anserinus tendinitis or bursitis [[id number]] INVALID FOR* Other disorder of muscle, ligament, and fascia *INVALID FOR* Hypercholesterolemia [E78.00] INVALID FOR* Bilateral low back pain without sciatica [M54.5]INVALID FOR*03/11/2016 Bilateral low back pain with left-sided sciatic*INVALID FOR*03/11/2016 Bilateral low back pain with sciatica [M54.40] INVALID FOR*03/11/2016 Persistent disorder of initiating or maintainin*INVALID FOR* Mild intermittent asthma without complication [*INVALID FOR* Acute midline low back pain with bilateral scia*INVALID FOR* MRSA bacteremia [R78.81] INVALID FOR*12/24/2017 More... Soft tissue abscess [L02.91] INVALID FOR*12/23/2017 More... Cholecystitis, acute [K81.0] INVALID FOR*12/23/2017 Epidural abscess [G06.2] INVALID FOR* Follow-up and Disposition History Recorded Encounter Status:Closed by CATE BARRAZA on 01/07/18 VANCOMYCIN, TROUGH Collected: 01/01/2018 Status: F Source: [place] 9:49 PM [facility] REPOSITORY Order Comment: Comments: Please draw 01/01 @ 2130 Time Medication is to be Given? 2200 TYPE CODE TESTS RESULT OUT OF REFERENCE UNITS RANGE LAB L501.8820 5.0-15.0 ug/mL High VANCO, TROUGH 15.2 Result Comment: VANCOMYCIN STANDARED DRUG THERAPY TROUGH LEVEL: 5.0 - 15.0 mg/L VANCOMYCIN HIGH INTENSITY THERAPY TROUGH LEVEL: 15.0 - 20.0 mg/L High Intensity therapy recommended for serious life threatening infections include: - Meningitis -Endocarditis -Pneumonia (Ventilator/Healtcare Associated) -Sepsis PLEASE CONTACT PHARMACY SERVICES (#[id number]) FOR INTERPRETATION OF RESULTS. Performed By: #### L501.8820 #### [facility] [address] [place], [address] BASIC METABOLIC Collected: 01/01/2018 Status: F Source: [place] PROFILE (BMP) 4:55 AM [facility] REPOSITORY Order Comment: SPECIMEN OBTAINED FROM LINE DRAW TYPE CODE TESTS RESULT OUT OF RANGE REFERENCE UNITS LAB L501.0100 74-106 mg/dL Normal GLU 82 Result Comment: Please note revised GLUCOSE reference range effective 2017. LAB L501.1000 7-18 mg/dL High BUN 34 LAB L501.1100 0.55-1.02 mg/dL Normal CREAT,SERUM 0.68 Result Comment: The validity of the calculated GFR AND GFRAA in patients over 70 years has not been determined. Clinical correlation is essential. LAB L501.1110 >60 mL/min Normal EST GFR 91 Result Comment: Non- GFR Calc LAB L501.1115 >60 mL/min Normal EST GFR - AA 110 Result Comment: GFR Calc LAB L501.1255 ml/min Normal Estimated CRCL 42.68 LAB L501.1300 10-20 RATIO High BUN/CRE 50.1 LAB L501.2200 8.5-10 mg/dL Normal .1 CA 9.1 LAB L501.5300 136-14 mmol/L Normal 5 NA 139 LAB L501.5600 3.5-5. mmol/L Normal 1 K 3.8 LAB L501.5900 98-107 mmol/L Normal CL 103 LAB L501.6100 21.0-3 mmol/L Normal 2.0 CO2 27.0 LAB L501.6200 5-15 Normal GAP 9 Performed By: #### L500.2500 #### [facility] [address] [place], [address] CBC W/DIFF, AUTOMATED Collected: 01/01/2018 Status: F Source: [place] 4:55 AM [facility] REPOSITORY Order Comment: SPECIMEN OBTAINED FROM LINE DRAW TYPE CODE TESTS RESULT OUT OF RANGE REFERENCE UNITS LAB L100.1000 4.4-11.0 K/mm3 Normal WBC 5.4 LAB L100.1200 4.2-5.4 M/mm3 Low RBC 3.36 LAB L100.1300 12.0-15.0 g/dl Low HGB 9.2 LAB L100.1400 37-47 % Low HCT 29.4 LAB L100.1500 81-99 fL Normal MCV 87.5 LAB L100.1600 27.0-32.0 pg Normal MCH 27.4 LAB L100.1700 32-36 g/gl Low MCHC 31.3 LAB L100.1810 11.6-14.6 % High RDW CV 14.9 LAB L100.1820 35.1-43.9 fl High RDW SD 45.8 LAB L100.1900 150-450 K/mm3 Normal PLT 311 LAB L100.2000 6.2-12.0 fl Normal MPV 9.2 LAB L100.2100 47-70 % Normal NEUT% 59.1 LAB L100.2200 19-41 % Normal LY% 19.2 LAB L100.2300 0-10 % High MONO% 14.0 LAB L100.2400 0-5 % High EO% 6.1 LAB L100.2500 0-1 % Normal BASO% 0.9 LAB L100.2550 0.0-0.9 % Normal IM GRAN % 0.700 Result Comment: IG% - Immature Granulocytes (promyelocytes, myelocytes and metamyelocytes) > 1% indicates that a LEFT SHIFT is Present. LAB L100.2620 2.0-7.7 X10 3/uL Normal Absolute Neut 3.2 LAB L100.2720 0.83-4.51 X10 3/ul Normal Absolute Lymph 1.04 Performed By: #### L100.0100 #### [facility] [address] [place], [address] VANCOMYCIN, RANDOM Collected: 12/31/2017 Status: F Source: [place] 10:45 AM [facility] REPOSITORY TYPE CODE TESTS RESULT OUT OF REFERENCE UNITS RANGE LAB L501.8850 0.0-15.0 ug/mL High VANCO, RANDOM 15.4 Result Comment: VANCOMYCIN STANDARD DRUG THERAPY: CRITICAL VALUE IS > 15.0 mg/L VANCOMYCIN HIGH INTENSITY THERAPY: CRITICAL VALUE IS > 20.0 mg/L PLEASE CONTACT PHARMACY SERVICES (#[id number]) FOR INTERPRETATION OF RESULTS. THIS RESULT DOES NOT REPRESENT A PEAK OR TROUGH LEVEL FOR THIS DRUG. Performed By: #### L501.8850 #### [facility] [address] [place], [address] VANCOMYCIN, TROUGH Collected: 12/30/2017 Status: F Source: [place] 10:24 AM [facility] REPOSITORY Order Comment: Comments: Draw 30 min prior to vanco dose due at 1100. Time Medication is to be Given? 1100 TYPE CODE TESTS RESULT OUT OF REFERENCE UNITS RANGE LAB L501.8820 5.0-15.0 ug/mL High VANCO, TROUGH 22.0 Result Comment: VANCOMYCIN STANDARED DRUG THERAPY TROUGH LEVEL: 5.0 - 15.0 mg/L VANCOMYCIN HIGH INTENSITY THERAPY TROUGH LEVEL: 15.0 - 20.0 mg/L High Intensity therapy recommended for serious life threatening infections include: - Meningitis -Endocarditis -Pneumonia (Ventilator/Healtcare Associated) -Sepsis PLEASE CONTACT PHARMACY SERVICES (#[id number]) FOR INTERPRETATION OF RESULTS. Performed By: #### L501.8820 #### [facility] [address] [place], [address] CBC W/DIFF, AUTOMATED Collected: 12/28/2017 Status: F Source: [place] 5:30 AM [facility] REPOSITORY Order Comment: SPECIMEN OBTAINED FROM LINE DRAW TYPE CODE TESTS RESULT OUT OF RANGE REFERENCE UNITS LAB L100.1000 4.4-11.0 K/mm3 Normal WBC 5.3 LAB L100.1200 4.2-5.4 M/mm3 Low RBC 3.08 LAB L100.1300 12.0-15.0 g/dl Low HGB 8.4 LAB L100.1400 37-47 % Low HCT 27.0 LAB L100.1500 81-99 fL Normal MCV 87.7 LAB L100.1600 27.0-32.0 pg Normal MCH 27.3 LAB L100.1700 32-36 g/gl Low MCHC 31.1 LAB L100.1810 11.6-14.6 % High RDW CV 14.9 LAB L100.1820 35.1-43.9 fl High RDW SD 46.1 LAB L100.1900 150-450 K/mm3 Normal PLT 268 LAB L100.2000 6.2-12.0 fl Normal MPV 8.7 LAB L100.2100 47-70 % Normal NEUT% 54.4 LAB L100.2200 19-41 % Normal LY% 23.4 LAB L100.2300 0-10 % High MONO% 14.2 LAB L100.2400 0-5 % High EO% 6.6 LAB L100.2500 0-1 % Normal BASO% 0.6 LAB L100.2550 0.0-0.9 % Normal IM GRAN % 0.800 Result Comment: IG% - Immature Granulocytes (promyelocytes, myelocytes and metamyelocytes) > 1% indicates that a LEFT SHIFT is Present. LAB L100.2620 2.0-7.7 X10 3/uL Normal Absolute Neut 2.9 LAB L100.2720 0.83-4.51 X10 3/ul Normal Absolute Lymph 1.24 Performed By: #### L100.0100 #### [facility] [place], [address] SERUM CREATININE AND Collected: 12/28/2017 Status: F Source: [place] GFR 5:30 AM [facility] REPOSITORY Order Comment: SPECIMEN OBTAINED FROM LINE DRAW TYPE CODE TESTS RESULT OUT OF RANGE REFERENCE UNITS LAB L501.1100 0.55-1.02 mg/dL Normal 0.64 CREAT,SERUM Result Comment: The validity of the calculated GFR AND GFRAA in patients over 70 years has not been determined. Clinical correlation is essential. LAB L501.1110 >60 mL/min Normal EST GFR 98 Result Comment: Non- GFR Calc LAB L501.1115 >60 mL/min Normal EST GFR - AA 118 Result Comment: GFR Calc LAB L501.1255 ml/min Normal Estimated CRCL 42.68 Performed By: #### L501.1105, L501.6710 #### [facility] [address] [place], [address] CRP Collected: 12/28/2017 Status: F Source: [place] 5:30 AM [facility] REPOSITORY Order Comment: SPECIMEN OBTAINED FROM LINE DRAW TYPE CODE TESTS RESULT OUT OF RANGE REFERENCE UNITS LAB L501.6710 0.0-3.0 mg/L High 8.98 C-REACTIVE PROT Result Comment: C-Reactive Protein (CRP) provides useful information for the diagnosis, therapy and monitoring of inflammatory processes and associated diseases. For the evaluation of Relative Risk for Cardiovascular Disease, a High Sensitivity CRP (HSCRP) should be ordered. Performed By: #### L501.1105, L501.6710 #### [facility] [address] [place], [address] HOSP Observed: 12/28/2017 Status: COMPLETED Source: [place] 12:00 AM [facility] REPOSITORY Patient Update (INFDMN) STEPHIE UGARTE ([id number]) 1945 F Date Time Provider Department 12/28/17 DENISSE OSORIO INFDMN During your visit today, we recorded the following information about you: Allergies As of Date: 12/28/2017 Noted Allergy Reaction ANESTHESIA [Other] 09/09/2004 8 - GI Upset Date Reviewed: 12/23/2017 Reviewed by: Britni Fitzpatrick) JINNY Palomo - Fully Assessed Reason for Visit: Outside Labs Results [437] Cmt: copat Order(s):C-REACTIVE PROTEIN (CRP) [SQCRP] Order #: [id number] CBC + DIFF [SQCBCDIF] Order #: [id number] COMP METABOLIC PANEL [SQCMP] Order #: [id number] VANCOMYCIN PRE DOSE [SQVANCPR] Order #: [id number] Prescriptions as of 12/28/2017 Sig: ONDANSETRON HCL (PF) 4 MG/2 M* Inject 4 mg intravenously bola* POLYETHYLENE GLYCOL 3350 17 G* 1 Packet by ORAL/FEEDING TUBE* BENZOCAINE-MENTHOL 15 MG-3.6 * Use 1 Lozenge as instructed e* VANCOMYCIN 1 GRAM/200 ML IN D* Inject 200 mL intravenously q* MELATONIN 3 MG TABLET Take 2 tablets by mouth daily* ACETAMINOPHEN 325 MG TABLET Take 2 tablets by mouth every* LISINOPRIL 10 MG-HYDROCHLOROT* Take 1 tablet by mouth once d* Problem List As Of Date 12/28/2017 Noted Resolved GENERAL OSTEOARTHROSIS [M15.9] INVALID FOR* SYMPTOMATIC FEMALE CLIMACTERIC STATE [N95.1] INVALID FOR* ASA CLASS II [1001] INVALID FOR*01/14/2013 Essential hypertension, benign [I10] INVALID FOR* More... Pure hyperglyceridemia [E78.1] INVALID FOR*03/04/2016 Diverticulitis of colon [K57.32] INVALID FOR*01/14/2013 Asthmatic bronchitis [J45.909] INVALID FOR*03/27/2016 Neuritis of upper extremity [M79.2] INVALID FOR* Pes anserinus tendinitis or bursitis [YZB2347] INVALID FOR* Other disorder of muscle, ligament, and fascia *INVALID FOR* Hypercholesterolemia [E78.00] INVALID FOR* Bilateral low back pain without sciatica [M54.5]INVALID FOR*03/11/2016 Bilateral low back pain with left-sided sciatic*INVALID FOR*03/11/2016 Bilateral low back pain with sciatica [M54.40] INVALID FOR*03/11/2016 Persistent disorder of initiating or maintainin*INVALID FOR* Mild intermittent asthma without complication [*INVALID FOR* Acute midline low back pain with bilateral scia*INVALID FOR* MRSA bacteremia [R78.81] INVALID FOR*12/24/2017 More... Soft tissue abscess [L02.91] INVALID FOR*12/23/2017 More... Cholecystitis, acute [K81.0] INVALID FOR*12/23/2017 Epidural abscess [G06.2] INVALID FOR* Follow-up and Disposition History Recorded Encounter Status:Closed by CATE BARRAZA on 12/30/17 VANCOMYCIN, TROUGH Collected: 12/26/2017 Status: F Source: [place] 10:30 PM [facility] REPOSITORY Order Comment: Comments: DRAW TROUGH 30 MIN PRIOR TO DOSE AT 23:00 Time Medication is to be Given? 2300 TYPE CODE TESTS RESULT OUT OF REFERENCE UNITS RANGE LAB L501.8820 5.0-15.0 ug/mL High VANCO, TROUGH 19.2 Result Comment: VANCOMYCIN STANDARED DRUG THERAPY TROUGH LEVEL: 5.0 - 15.0 mg/L VANCOMYCIN HIGH INTENSITY THERAPY TROUGH LEVEL: 15.0 - 20.0 mg/L High Intensity therapy recommended for serious life threatening infections include: - Meningitis -Endocarditis -Pneumonia (Ventilator/Healtcare Associated) -Sepsis PLEASE CONTACT PHARMACY SERVICES (#[id number]) FOR INTERPRETATION OF RESULTS. Performed By: #### L501.8820 #### [facility] [address] [place], [address] CONSULTATION Observed: 12/25/2017 Status: F Source: [place] 3:26 PM [facility] REPOSITORY [facility] Medical Records Department [address] [place] [address] Consultation 12/25/17 1504 MR#: [id number] Acct: [id number] Name: STEPHIE UGARTE Rep #: [id number] : 1945 72 From: Logan Pandey MD PCP: Elkin Wood MD Status: ADM IN Y Location: [place] [address] Problem List (1) MRSA bacteremia Status: Acute Reason for Consult: bacteremia Consulted by: Dr. Welch History of Present Illness: The patient is a 72 year old F with MRSA bacteremia from infected spine stimulator requiring surgical debridement after device removal. Had ? spine involvement on imaging, transferred from [facility] to [facility]. Seen by ID and neurosurg. Abx changed from dapto to vanc. Bcx cleared. Picc placed, discharged to TCU with planned iv vanc stop date 01/26/18. Feeling better, wounds are packed. No fever, no n/v/d. Full ROS performed and neg except as noted above. - Medical History Past Medical History (Chronic Problems): Chronic Problems Chronic back pain (Chronic) Asthma (Chronic) HTN (hypertension) (Chronic) COPD (chronic obstructive pulmonary disease) (Chronic) Allergies/Adverse Reactions: Allergies No Known Allergies Allergy (Verified 11/29/17 18:30) Home Medications: Ambulatory Orders Medication Instructions Recorded Fluticasone/Salmeterol [Advair 1 puff INHALATION DAILY 09/28/15 250/50 Mcg Diskus] - Social History SMOKING STATUS:: Never smoker Vital Signs Temp Pulse Resp BP Pulse Ox 98.6 F 65 18 121/64 H 97 12/24/17 12:25 12/25/17 04:30 12/24/17 12:25 12/25/17 04:30 12/24/17 12:25 Oxygen Delivery Method Room Air Weight: 76.2 kg Body Mass Index (BMI) 29.7 Laboratory Tests Past 24 Hrs WBC - Other Studies Radiology: [] reviewed Other Studies: [] Route of nutrition/ use of supplements: [] Nutritional Intake: [] IV Site: [] Painting Catheter: [] - Physical Exam General: Alert, Oriented x3, Cooperative, No apparent distress HEENT: Atraumatic, PERRLA, EOMI Neck: Supple, No Nodes Lungs: Clear to auscultation, Normal air movement Cardiovascular: Regular rate, Regular Rhythm, No murmurs Abdomen: Soft, Non Tender, Non-Distended Extremities: No edema Skin: Incision - reviewed photo IV Site: PICC, without redness Musculoskeletal: No Tenderness to Palpation of Joints or Extremities Neurological: Cranial nerves II-XII grossly intact - Assessment/Plan Antibiotics: [] Assessment/Plan: [] MRSA bacteremia due to infected spine stimulator - doing well on iv vanc, will follow trough, goal 15-20. Stop date 01/26/18. Had single bcx at [facility] with enterobacter, but thought to be contaminant. Will follow, thank you. 12/25/17 1526 <Electronically signed by Logan Pandey MD> Date Logan Pandey MD Cosigner Signature (if applicable): Date CC: Elkin Wood MD; Logan Pandey MD; Primitivo Welch MD Signed CBC W/DIFF, AUTOMATED Collected: 12/25/2017 Status: F Source: [place] 6:35 AM [facility] REPOSITORY TYPE CODE TESTS RESULT OUT OF RANGE REFERENCE UNITS LAB L100.1000 4.4-11.0 K/mm3 Normal WBC 4.9 LAB L100.1200 4.2-5.4 M/mm3 Low RBC 3.56 LAB L100.1300 12.0-15.0 g/dl Low HGB 9.7 LAB L100.1400 37-47 % Low HCT 30.7 LAB L100.1500 81-99 fL Normal MCV 86.2 LAB L100.1600 27.0-32.0 pg Normal MCH 27.2 LAB L100.1700 32-36 g/gl Low MCHC 31.6 LAB L100.1810 11.6-14.6 % High RDW CV 15.5 LAB L100.1820 35.1-43.9 fl High RDW SD 48.7 LAB L100.1900 150-450 K/mm3 Normal PLT 260 LAB L100.2000 6.2-12.0 fl Normal MPV 8.5 LAB L100.2100 47-70 % Low NEUT% 41.4 LAB L100.2200 19-41 % Normal LY% 35.8 LAB L100.2300 0-10 % High MONO% 14.6 LAB L100.2400 0-5 % High EO% 6.8 LAB L100.2500 0-1 % Normal BASO% 1.0 LAB L100.2550 0.0-0.9 % Normal IM GRAN % 0.400 Result Comment: IG% - Immature Granulocytes (promyelocytes, myelocytes and metamyelocytes) > 1% indicates that a LEFT SHIFT is Present. LAB L100.2620 2.0-7.7 X10 3/uL Normal Absolute Neut 2.0 LAB L100.2720 0.83-4.51 X10 3/ul Normal Absolute Lymph 1.74 Performed By: #### L100.0100 #### [facility] [address] [place], [place], [address] BASIC METABOLIC Collected: 12/25/2017 Status: F Source: [place] PROFILE (BMP) 6:35 AM [facility] REPOSITORY TYPE CODE TESTS RESULT OUT OF RANGE REFERENCE UNITS LAB L501.0100 74-106 mg/dL Normal GLU 87 Result Comment: Please note revised GLUCOSE reference range effective 2017. LAB L501.1000 7-18 mg/dL Normal BUN 18 LAB L501.1100 0.55-1.02 mg/dL Normal CREAT,SERUM 0.64 Result Comment: The validity of the calculated GFR AND GFRAA in patients over 70 years has not been determined. Clinical correlation is essential. LAB L501.1110 >60 mL/min Normal EST GFR 97 Result Comment: Non- GFR Calc LAB L501.1115 >60 mL/min Normal EST GFR - AA 117 Result Comment: GFR Calc LAB L501.1255 ml/min Normal Estimated CRCL 42.68 LAB L501.1300 10-20 RATIO High BUN/CRE 28.0 LAB L501.2200 8.5-10 mg/dL Normal .1 CA 9.0 LAB L501.5300 136-14 mmol/L Normal 5 NA 137 LAB L501.5600 3.5-5. mmol/L Normal 1 K 4.1 LAB L501.5900 98-107 mmol/L Normal CL 103 LAB L501.6100 21.0-3 mmol/L Normal 2.0 CO2 24.0 LAB L501.6200 5-15 Normal GAP 10 Performed By: #### L500.2500 #### [facility] [place], [address] VANCOMYCIN, RANDOM Collected: 12/25/2017 Status: F Source: [place] 6:35 AM [facility] REPOSITORY TYPE CODE TESTS RESULT OUT OF REFERENCE UNITS RANGE LAB L501.8850 0.0-15.0 ug/mL High VANCO, RANDOM 17.8 Result Comment: VANCOMYCIN STANDARD DRUG THERAPY: CRITICAL VALUE IS > 15.0 mg/L VANCOMYCIN HIGH INTENSITY THERAPY: CRITICAL VALUE IS > 20.0 mg/L PLEASE CONTACT PHARMACY SERVICES (#[id number]) FOR INTERPRETATION OF RESULTS. THIS RESULT DOES NOT REPRESENT A PEAK OR TROUGH LEVEL FOR THIS DRUG. Performed By: #### L501.8850 #### [facility] [address] [place], [address] HOSP Observed: 12/25/2017 Status: COMPLETED Source: [place] 12:00 AM [facility] REPOSITORY Patient Update (INFDMN) STEPHIE UGARTE ([id number]) 1945 F Date Time Provider Department 12/25/17 DENISSE OSORIO INFDMN During your visit today, we recorded the following information about you: Allergies As of Date: 12/25/2017 Noted Allergy Reaction ANESTHESIA [Other] 09/09/2004 8 - GI Upset Date Reviewed: 12/23/2017 Reviewed by: Britni (Rn) JINNY Palomo - Fully Assessed Reason for Visit: Outside Labs Results [437] Cmt: copat Order(s):C-REACTIVE PROTEIN (CRP) [SQCRP] Order #: [id number] CBC + DIFF [SQCBCDIF] Order #: [id number] COMP METABOLIC PANEL [SQCMP] Order #: [id number] VANCOMYCIN LEVEL [0561482] Order #: [id number] Prescriptions as of 12/25/2017 Sig: ONDANSETRON HCL (PF) 4 MG/2 M* Inject 4 mg intravenously bola* POLYETHYLENE GLYCOL 3350 17 G* 1 Packet by ORAL/FEEDING TUBE* BENZOCAINE-MENTHOL 15 MG-3.6 * Use 1 Lozenge as instructed e* OXYCODONE 5 MG TABLET Take 1-2 tablets by mouth bola* VANCOMYCIN 1 GRAM/200 ML IN D* Inject 200 mL intravenously q* MELATONIN 3 MG TABLET Take 2 tablets by mouth daily* ACETAMINOPHEN 325 MG TABLET Take 2 tablets by mouth every* LISINOPRIL 10 MG-HYDROCHLOROT* Take 1 tablet by mouth once d* Problem List As Of Date 12/25/2017 Noted Resolved GENERAL OSTEOARTHROSIS [M15.9] INVALID FOR* SYMPTOMATIC FEMALE CLIMACTERIC STATE [N95.1] INVALID FOR* ASA CLASS II [1001] INVALID FOR*01/14/2013 Essential hypertension, benign [I10] INVALID FOR* More... Pure hyperglyceridemia [E78.1] INVALID FOR*03/04/2016 Diverticulitis of colon [K57.32] INVALID FOR*01/14/2013 Asthmatic bronchitis [J45.909] INVALID FOR*03/27/2016 Neuritis of upper extremity [M79.2] INVALID FOR* Pes anserinus tendinitis or bursitis [TZK7686] INVALID FOR* Other disorder of muscle, ligament, and fascia *INVALID FOR* Hypercholesterolemia [E78.00] INVALID FOR* Bilateral low back pain without sciatica [M54.5]INVALID FOR*03/11/2016 Bilateral low back pain with left-sided sciatic*INVALID FOR*03/11/2016 Bilateral low back pain with sciatica [M54.40] INVALID FOR*03/11/2016 Persistent disorder of initiating or maintainin*INVALID FOR* Mild intermittent asthma without complication [*INVALID FOR* Acute midline low back pain with bilateral scia*INVALID FOR* MRSA bacteremia [R78.81] INVALID FOR*12/24/2017 More... Soft tissue abscess [L02.91] INVALID FOR*12/23/2017 More... Cholecystitis, acute [K81.0] INVALID FOR*12/23/2017 Epidural abscess [G06.2] INVALID FOR* Encounter Status:Closed by CATE BARRAZA on 12/30/17 HISTORY AND PHYSICAL Observed: 12/24/2017 Status: F Source: [place] EXAM 9:43 PM [facility] REPOSITORY [facility] Medical Records Department [address] [place] [address] History and Physical 12/24/173 MR#: [id number] Acct: [id number] Name: STEPHIE UGARTE Rep #: [id number] : 1945 72 From: Primitiov Welch MD PCP: Elkin Wood MD Status: ADM IN Y Location: [place] [address] Problem List (1) Cellulitis Status: Acute (2) Altered mental status, unspecified Status: Acute (3) Sepsis affecting skin Status: Acute (4) Acute encephalopathy Status: Acute (5) MRSA bacteremia Status: Acute (6) Hip pain, right Status: Acute (7) Chronic back pain Status: Chronic Qualifiers: (8) HTN (hypertension) Status: Chronic Qualifiers: (9) COPD (chronic obstructive pulmonary disease) Status: Chronic Qualifiers: History of Present Illness Date of Admission: 12/24/17 Chief Complaint: Here for rehabilitation, strengthening, intravenous antibiotics, wound care, prior to discharge home with spouse. The patient is a 72 year old Female with below past medical history admitted to [facility] 11/29/2017 with sepsis from implantable spinal cord stimulator. Patient diagnosed with MRSA bacteremia from infected spinal cord stimulator. Patient treated with intravenous antibiotics. Spinal cord stimulator removed by pain management. Cultures positive MRSA. All blood cultures positive MRSA, MOSES negative for vegetation. 12/11/2017 Right mid back, right upper buttock debrided surgically. MRI showed possible infection epidural space thoracic spine, needs neurosurgical consultation. 12/12/2017 Transferred to [facility] for further care. 12/12/2017 Right ankle ulcer, bacteremia. 12/13/2017 Blood cultures grew enterococcus treated with Vancomycin. 12/15/2017 Wound vac applied. 12/16/2017 Blood culture negative. 12/19/2017 PICC line inserted. 12/21/2017 Low grade fever, blood cultures negative, all cultures negative. 12/24/2017 Admit to TCU with debility, here for rehabilitation, strengthening, intravenous antibiotics, wound care prior to discharge home with spouse. Patient has had sepsis x 6. Past Medical History Past Medical History (Chronic Problems): Chronic Problems Chronic back pain (Chronic) Asthma (Chronic) HTN (hypertension) (Chronic) COPD (chronic obstructive pulmonary disease) (Chronic) Allergies No Known Allergies Allergy (Verified 11/29/17 18:30) Home Medications: Ambulatory Orders Medication Instructions Recorded Fluticasone/Salmeterol [Advair 1 puff INHALATION DAILY 09/28/15 250/50 Mcg Diskus] Surgical History: appendectomy, cholecystectomy, herniorrhaphy, hysterectomy, total hip arthroplasty - Bilateral., total knee arthroplasty - Left., - - right knee arthroscopic surgery, left shoulder rotator cuff tear intervention, left knee arthroscopic surgery, right knee replacement, back surgery. 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 Lives: Spouse/ Significant Other Smoking Status: Never smoker Tobacco Use: Non-smoker Alcohol: None Drugs: None - *Family History Maternal History Items: COPD Paternal History Items: COPD, Heart Disease, Hypertension Review of Systems Constitutional: Denies: Chills, Fever, Weight Change HEENT: Denies: Head Aches, Sinus Congestion, Sinus Drainage Cardiovascular: Denies: Chest Pain, Palpitations Respiratory: Denies: Cough, Shortness of breath at rest, Sputum production Gastrointestinal: Denies: Abdominal Pain, Nausea, Vomiting Genitourinary: Denies: Dysuria Musculoskeletal: Denies: Joint Pain, Joint Tenderness Skin: Denies: Rash, Wounds Neurological: Denies: Numbness, Tingling, Focal weakness Psychiatric: Denies: Anxiety, Depression, Homicidal Ideations, Suicidal Ideations Hematologic/ Lymphatic: Denies: Easy Bruising, Easy Bleeding VTE Information - Inpt Only VTE Present on Admission: No VTE Mechan Device Prophylaxis: Knee High ANOOP Hose VTE Pharm Prophylaxis ordered?: Yes - Physical Exam General: Alert, Oriented x3, Cooperative HEENT: Atraumatic, PERRLA, EOMI, Normocephalic Neck: Supple, No JVD, Negative Carotid Bruits Lungs: Clear to auscultation, Normal air movement Cardiovascular: Regular rate, No murmurs Abdomen: Bowel Sounds Present, Soft, Non Tender Extremities: No edema, Capillary Refill Less than 3 Seconds, - - Right upper extremity PICC line. Skin: No rashes, No breakdown, - - Wound right lateral chest, right upper buttock, wound vac. Musculoskeletal: No Tenderness to Palpation of Joints or Extremities Neurological: Cranial nerves II-XII grossly intact Psych/Mental Status: Normal Affect, Appropriate Vital Signs Temp Pulse Resp BP Pulse Ox 98.6 F 92 18 146/86 H 97 12/24/17 12:25 12/24/17 12:25 12/24/17 12:25 12/24/17 12:25 12/24/17 12:25 Oxygen Delivery Method Room Air Weight: 76.2 kg Body Mass Index (BMI) 29.7 Intake and Output for Last 24 Hours Intake Total 420 / 420 Balance 420 / 420 Laboratory Tests Past 24 Hrs Sodium 134 L Potassium 4.1 Chloride 102 Carbon Dioxide 25.0 Anion Gap 7 BUN 19 H Creatinine 0.67 Assessment/Plan All Active Problems Cellulitis (Acute) Altered mental status, unspecified (Acute) Sepsis affecting skin (Acute) Acute encephalopathy (Acute) MRSA bacteremia (Acute) Hip pain, right (Acute) Acute back pain (Acute) 72 year old female with below past medical history hospitalized for MRSA bacteremia secondary to implantable spinal cord stimulator, now removed, requiring debridement, admitted to TCU with debility, here for rehabilitation, strengthening, intravenous antibiotics, wound care, prior to discharge home with spouse. * Debility - PT/OT. * Pain - Tylenol 1000MG Q6H PRN mild pain, Oxycodone 5-10MG Q6H PRN moderate pain. * Bowel - Miralax 17GM daily, Senna/colace 2 tablets BID, Dulcolax 10MG PO daily PRN. * Pneumonia vaccination - Administer Prevnar 13 and/or Pneumovax 23 as necessary. * DVT prophylaxis - Lovenox 30MG SC daily. * Sore throat - Cepacol 1 lozenge Q2H PRN. * COPD - Advair 232-14 1 puff daily. * Hypertension - Lisinopril 10MG daily, HCTZ 12.5MG daily. * Insomnia - Melatonin 6MG QHS. * Nausea - Zofran 8MG Q8H PRN. * MRSA/Enterococcus bacteremia - Vancomycin IV, followed by Dr. Pandey. 12/24/172142 <Electronically signed by Primitivo Welch MD> Date Primitivo Welch MD Cosigner Signature: Date (if applicable) CC: Elkin Wood MD; Primitivo Welch MD Signed BASIC METABOLIC Collected: 12/24/2017 Status: F Source: [place] PROFILE (BMP) 8:25 PM [facility] REPOSITORY Order Comment: Comments: PLEASE DRAW WITH RANDOM VANCOMYCIN LEVEL @2000 TYPE CODE TESTS RESULT OUT OF RANGE REFERENCE UNITS LAB L501.0100 74-106 mg/dL Normal GLU 91 Result Comment: Please note revised GLUCOSE reference range effective 2017. LAB L501.1000 7-18 mg/dL High BUN 19 LAB L501.1100 0.55-1.02 mg/dL Normal CREAT,SERUM 0.67 Result Comment: The validity of the calculated GFR AND GFRAA in patients over 70 years has not been determined. Clinical correlation is essential. LAB L501.1110 >60 mL/min Normal EST GFR 93 Result Comment: Non- GFR Calc LAB L501.1115 >60 mL/min Normal EST GFR - AA 112 Result Comment: GFR Calc LAB L501.1255 ml/min Normal Estimated CRCL 42.68 LAB L501.1300 10-20 RATIO High BUN/CRE 28.5 LAB L501.2200 8.5-10 mg/dL Normal .1 CA 8.5 LAB L501.5300 136-14 mmol/L Low 5 NA 134 LAB L501.5600 3.5-5. mmol/L Normal 1 K 4.1 LAB L501.5900 98-107 mmol/L Normal CL 102 LAB L501.6100 21.0-3 mmol/L Normal 2.0 CO2 25.0 LAB L501.6200 5-15 Normal GAP 7 Performed By: #### L500.2500 #### [facility] [address]. [place], [place], [id number] VANCOMYCIN, RANDOM Collected: 12/24/2017 Status: F Source: [place] LEVEL 8:25 PM [facility] REPOSITORY TYPE CODE TESTS RESULT OUT OF REFERENCE UNITS RANGE LAB L501.8850 0.0-15.0 ug/mL High VANCO, RANDOM 23.2 Result Comment: VANCOMYCIN STANDARD DRUG THERAPY: CRITICAL VALUE IS > 15.0 mg/L VANCOMYCIN HIGH INTENSITY THERAPY: CRITICAL VALUE IS > 20.0 mg/L PLEASE CONTACT PHARMACY SERVICES (#[id number]) FOR INTERPRETATION OF RESULTS. THIS RESULT DOES NOT REPRESENT A PEAK OR TROUGH LEVEL FOR THIS DRUG. Performed By: #### L501.8850 #### [facility] [address] [place], [address] CASE MANAGEM Observed: 12/24/2017 Status: COMPLETED Source: [place] 11:[address] [facility] [place] REPOSITORY HNO ID: [id number] Author: Blanca FitzpatrickAbhishek Regalado RN Service: Care Management Author Type: Registered Nurse Type: Care Mgt Progress Note Filed: 12/24/2017 2:07 PM Note Text: CARE MANAGEMENT PROGRESS NOTE SERVICE DATE: 12/24/2017 SERVICE TIME: 2:03 PM LOS: 12 days Reina Band Manager Note Discharged Today Admitted to: [facility] P: [phone] Care Coordination: Reina Care Opportunities Letter faxed to: Attn: Court Starks, Admission , P: [phone] Note: Please forward this letter to the physician's office upon scheduling the Physician Discharge Follow Up appointment. SIGNATURE: Blanca Regalado RN PATIENT NAME: Stephie Ugarte DATE: December 24, 2017 TIME: 2:03 PM PAGER/CONTACT #: [phone] CASE MANAGEM Observed: 12/24/2017 Status: COMPLETED Source: [place] 11:11 AM [facility] REPOSITORY HNO ID: [id number] Author: Joanna Baires Service: Care Management Author Type: (none) Type: Care Mgt Progress Note Filed: 12/24/2017 11:12 AM Note Text: CARE MANAGEMENT PROGRESS NOTE SERVICE DATE: 12/24/2017 SERVICE TIME: 10:59 AM LOS: 12 days I attempted to give patient IM letter. SIGNATURE: Eriberto Kwonrical Assistant PATIENT NAME: Stephie Ugarte DATE: December 24, 2017 TIME: 11:11 AM PAGER/CONTACT #: [phone] NURSING PROG Observed: 12/24/2017 Status: COMPLETED Source: [place] 10:44 AM [facility] REPOSITORY HNO ID: [id number] Author: Sharon RodriguezRn) JINNY Thomas Service: (none) Author Type: Registered Nurse Type: Nursing Progress Note Filed: 12/24/2017 10:45 AM Note Text: Nursing Progress Note Patient Name: Stephie Ugarte Patient Location: H081 007/H081-08 Daily Note: Pt A+Ox3, no complaints of pain. VSS. Bath completed this morning. Wound vac taken down and went to dry dressing applied for transport to facility as ordered. No other complications at this time. Will continue to monitor. This note was completed by: Sharon Thomas RN CASE MANAGEM Observed: 12/24/2017 Status: COMPLETED Source: [place] 9:[address] [facility] [place] REPOSITORY HNO ID: [id number] Author: Isaura (Rn) JINNY Bailey Service: Care Management Author Type: Registered Nurse Type: Care Mgt Progress Note Filed: 12/24/2017 9:53 AM Note Text: CARE MANAGEMENT DISCHARGE NOTE SERVICE DATE: 12/24/2017 SERVICE TIME: 9:42am LOS: 12 days Admission Date: 12/12/2017 DISCHARGE ARRANGEMENT (list agency and phone number) [facility] facility: Was an expedited discharge program used? Yes - [place] [id number] Provider: [facility] CAREGIVER ASSESSMENT: Caregiver is ready, willing and able to meet the patient's needs as recommended by the inter-professional team? No Patient's transition needs and plan for meeting these needs: Patient to go to SNF Does the patient have an acute stroke diagnosis, or has the patient had a stroke during this admission? No HANDOFF COMMUNICATION: Primary Care Physician: Elkin Wood Phone Number: routed TRANSPORTATION ARRANGEMENTS: Mode of Transportation: Ambulance Transportation Agency and Phone #: Alton Lal [phone] . Date of Trip: 12/24 Type of Service: BLS Non-emergency Is Patient Medicaid Pending: No Discussion of financial coverage occurred with Family per previous CM . [employer] Location: [facility] H81-08 Destination: [facility] Financial Care Management Responsibility: None Estimated Charge: NA Approving Evaluation Assistant: NA ADDITIONAL CONTACT RESOURCES: RN Report #: [phone] Per primary team, patient is medically ready for discharge to SNF today. DC instructions, Snapshot, IV abx script faxed to above accepting facility, also placed in discharge packet. DC transport set for 10am. RN to call report. Patient in agreement with discharge plan. SIGNATURE: Isaura Bailey RN PATIENT NAME: Stephie Ugarte DATE: December 24, 2017 TIME: 9:42 AM PAGER/CONTACT #: [phone] ALLIED HEALTH Observed: 12/24/2017 Status: COMPLETED Source: [place] 8:46 AM [facility] REPOSITORY HNO ID: [id number] Author: Kalani RodriguezRn) Yonny Joaquin RN Service: Wound/Ostomy Author Type: Registered Nurse Type: Allied Health Filed: 12/24/2017 8:55 AM Note Text: ET/WOCN Nursing Consult Topic: ET/WOCN Consultation Note Outcome: Spoke with pt.'s bedside nurse regarding the Negative Pressure Wound Therapy (NPWT) dressing. Nurse stated a home going Negative Pressure Wound Therapy (NPWT) dressing is not at the bedside. Related directions for homegoing from Yung Cartwright's [facility] note to remove the NPWT dressing and applied a wet to dry gauze dressing for discharge if homegoing NPWT machine is not sent. Bedside RN agreed to do the dressing. Next Scheduled Visit: Plan to follow up with pt. in the outpatient clinic in A 30 when pt. returns to see LIP and as needed. Time Increment: 15 minutes Kalani LOPEZ RN CWOCN CNDS Observed: 12/24/2017 Status: COMPLETED Source: [place] 7:28 AM [facility] REPOSITORY HNO ID: [id number] Author: Hitesh Molina Service: General Internal Medicine Author Type: Physician Type: Discharge Summaries Filed: 12/24/2017 1:00 PM Note Text: DISCHARGE SUMMARY PATIENT NAME: Stephie Ugarte ADMISSION DATE: 12/12/2017 DISCHARGE DATE: 12/24/2017 ATTENDING PHYSICIAN: Hitesh Molina Code Status: Not on file Highest Readmission Risk Score: 15 The 30 day readmissions risk score is derived from an internally validated risk model which evaluates patient level characteristics, utilization history, medication orders and lab results up until the day of discharge. Patients with a score of 40 or above are considered highest risk for readmission. Specific patient level drivers will be listed at the bottom of the summary. REASON FOR HOSPITALIZATION: MRSA bacteremia due to neurostimulator infection DIAGNOSIS: HTN, MRSA bacteremia, epidural abscess OPERATIONS DURING HOSPITALIZATION: None PROCEDURES DURING HOSPITALIZATION: Wound Qvwhha-Eldmjkep-Dhmhgel device placement HOSPITAL COURSE: Stephie Ugarte presented as a transfer from [facility] due to persistent MRSA bacteremia 2/2 surgical site infection of neurostimulator (both leads and device-- thoracolumbar spine and R hip) s/p IANDD on 12/11. On 11/13 she had a nerve stimulator placed and post-op course was c/b lethargy and decreased appetite. She was admitted 11/28 to [facility] for MRSA sepsis. The device was removed 11/30 but blood cultures continued to grow MRSA despite appropriate antibiotics. She had been on Vancomycin and switched to Daptomycin during her hospital stay at [facility]. She had a TTE on 12/03 which showed no vegetations. She underwent IANDD with drainage of copious purulent material 12/11 at OSH. She was transferred for further evaluation and management of open wounds. At the OSH, she had also been seen by Nephrology and worked up for multiple myeloma due to new-onset proteinuria and this was negative. On arrival to [facility], vital signs were stable and she stated she felt better after the IANDD?procedure. She was admitted with bacteremia and right ankle stage 1 ulcer. Daptomycin was continued. The Spine service and ID were consulted. Home medications for HTN were continued. ID recommended switching daptomycin to vancomycin. 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 She did not have any urinary retention, pain, and motor/sensory deficits. Spine service continued to monitor Stephie Ugarte and ID continued to follow. ? Blood cultures from 12/12 grew MRSA. Blood cultures from 12/13 showed GPC in clusters; Enterobacter was detected by microarray and 1x ceftriaxone followed by 1xZosyn were given. As it only grew in 1 blood culture out of 2 taken that day, and did not grow in any of the subsequent blood cultures without continued treatment it was deemed to be a contaminant. Patient continued on vancomycin therapy during this interval. Wound VAC was placed 12/15 (Veraflow at -125mmHg continuous with good seal). Stephie Ugarte continued to be clinically stable. Blood cultures were drawn again 12/16, which were ultimately negative for growth. Additional blood cultures were drawn again on 12/20 on continued vancomycin therapy. PICC line was placed on 12/19 after blood cultures had been negative for growth x 2 days. Patient had brief episode sore throat and temp to 100F on 12/21 with continued negative cultures, suspected to be due to viral illness; respiratory viral panel was negative and CXR was normal (interim improvement since last CXR). Patient was deemed medically stable for discharge on outpatient antimicrobial therapy and was transferred to SNF on 12/24. Transitions of Care Critical Issues: NEW BASELINE FOR PATIENT: As Below PATIENT IS BEING DISCHARGED ON OUTPATIENT PARENTERAL ANTIMICROBIAL THERAPY As per Dr. Denisse Osorio (Infectious Disease), : Each Thursday please order: - CBC with differential - CRP - Creatinine - Vancomycin pre-dose level Care instructions: Catheter care per protocol. Routine lab draws may be done on Thursday if Thursday is a holiday. Please notify if Vancomycin pre-dose level is greater than 20. Wound Care Instructions Patient is being discharged with a wound vac Wound Care: - Cleanse periwound soap and water dry thoroughly - Irrigate wounds copious amounts NS - apply skin barrier to periwounds extending to left / right lateral trunk for bridging - apply transparent dressing over periwound extending to lateral trunk - Insert medium Simplace VAC foam into wounds to include undermined cavities bridge foam at the trunk - dressing change Thu AND or and Thu - nutrition to support wound healing / energy needs - aggressive off loading. Minimize time on back - May shower allowing direct stream to contact wound - DO NOT IMMERSE.. No bath, pool, etc... - follow up with primary service / plastics as directed LABS AND PROCEDURES PENDING AT DISCHARGE: No pending results. CONSULTING TEAMS DURING HOSPITALIZATION: Infectious Disease: For antimicrobial therapy guidance as above Wound Care: For Wound VAC care as above Neurosurgery: For recommendations regarding Wound VAC placement as above. PATIENT CONDITION AT DISCHARGE: Stable DISCHARGE DISPOSITION: [facility] GENERAL: Alert, no distress, cooperative SKIN: Skin color, texture, turgor normal. No rashes or lesions., wound on back extending from paraspinal thoracic/lumbar regions down to hips continue to drain serosanguineous fluid. No evidence of new erythema or purulent drainage. OROPHARYNX: Lips, mucosa, and tongue are normal.Teeth and gums, normal. Oropharynx normal. NECK: No jugulovenous distention, No carotid bruits, Carotid pulse normal contour, Supple LUNGS: Lungs clear to auscultation. Good diaphragmatic excursion. CARDIAC: Normal S1 and S2; no rubs, murmurs, or gallops ABDOMEN: ?Abdomen soft, non-tender, BS normal, No masses or organomegaly EXTREMITIES: Extremities normal, no deformities, edema, clubbing or skin discoloration. Good capillary refill., No ulcers NEURO: ?Alert, oriented X 3, Gait normal. Non-focal. Reflexes normal and symmetric. Sensation grossly intact., Cranial nerves II-XII intact PULSES: ?2+ radial, 2+ carotid INFORMATION PROVIDED TO PATIENT: (To pull info documented from the DC Instruct Orderset Complete O/S First): As above in Hospital Course; patient is being discharged to a [facility] Facility. DIET: Resume pre-hospital diet ACTIVITY: Resume pre-hospital activity WOUND/SURGICAL SITE CARE: As below per Wound Care specialists: DC Recommendations: - For transfer To SNF/LTAC DC Veraflow remove foam apply wet to dry dressing ? Wound Care: - Cleanse periwound soap and water dry thoroughly - Irrigate wounds copious amounts NS - apply skin barrier to periwounds extending to left / right lateral trunk for bridging - apply transparent dressing over periwound extending to lateral trunk - Insert medium Simplace VAC foam into wounds to include undermined cavities bridge foam at the trunk - dressing change Mon AND Thurs or Tu and Fri - nutrition to support wound healing / energy needs - aggressive off loading. Minimize time on back - May shower allowing direct stream to contact wound - DO NOT IMMERSE.. No bath, pool, etc... - follow up with primary service / plastics as directed ALLERGIES Allergen Reactions - Anesthesia [Other] GI Upset DISCHARGE MEDICATION: Current Discharge Medication List START taking these medications ondansetron (PF) (ZOFRAN) 4 mg Inject 4 mg intravenously every 6 hours as needed. polyethylene glycol 3350 (MIRALAX, GLYCOLAX) 17 g 17 g by ORAL/FEEDING TUBE route once daily. benzocaine-menthol (CEPACOL) 1 Lozenge Use 1 Lozenge as instructed every 2 hours as needed. oxyCODONE IR (ROXICODONE) 5-10 mg Take 5-10 mg by mouth every 6 hours as needed. Earliest Fill Date: 12/24/17 Refills: 0 Associated Diagnoses:Soft tissue abscess; Acute midline low back pain with bilateral sciatica; Epidural abscess vancomycin (VANCOCIN) 1 g Inject 1 g intravenously q 12 HR. melatonin 6 mg Take 6 mg by mouth daily at bedtime. acetaminophen (TYLENOL) 650 mg Take 650 mg by mouth every 6 hours as needed. CONTINUE these medications which have CHANGED lisinopril-hydrochlorothiazide (PRINZIDE,ZESTORETIC) 1 tablet Take 1 tablet by mouth once daily. Qty: 90 tablet Refills: 3 Associated Diagnoses:Essential hypertension, benign CoPAT Start SmartForm Date 12/23/2017 Delta Group Delta Group BONE AND JOINT Diagnosis Group Diagnosis Group Diagnosis Comment Central nervous system Spinal epidural abscess pachymeningitis Microoganisms Microoganisms Comment STAPHYLOCOCCUS AUREUS IV Antibiotics IV Antibiotics Dose Frequency Anticipated Stop Date Vancomycin 1 g Every 12 hours 01/26/2018 Lab monitoring plan/orders Lab/Frequency While patient is on CBC/Diff every Thursday Vancomycin Creatinine every Thursday Vancomycin Vancomycin pre-dose level every Thursday Vancomycin CRP every Thursday Additional Comments Catheter care per protocol. Routine lab draws may be done on Thursday if Thursday is a holiday. Please notify if Vancomycin pre-dose level is greater than 20. Physician AND Follow-up Physician Monitoring CoPAT Course: DENISSE OSORIO Follow-up Date/Time: 01/20/2018 01:00 PM Follow-up Physician: DENISSE OSORIO Prescribing Physician: DENISSE OSORIO FUTURE APPOINTMENTS: Follow Up with PCP: Elkin Wood MD Appointments for Next 60 Days Date Time Provider Location Dept Phone 01/04/2018 10:20 AM ASSESSMENT [facility] Spine A/NA/S [phone] 01/04/2018 10:40 AM CH[facility] Spine A/NA/S [phone] 01/20/2018 12:45 PM INTAKE EVALUATION [facility] MAIN [facility] (MAIN - [phone] 01/20/2018 1:00 PM DENISSE OSORIO INFD (MAIN - [phone] The patient's risk for 30-day readmission is determined using the following contributing factors: Pt variables contributing to increased readmission risk: 14 Most Recent BUN Result 11 Active Medication Orders 8.6 First Resulted Calcium During Admission 1 Insurance - Medicare 1 Active Anticoagulant TIME OF CARE: Discharge Management: I personally spent greater than 30 minutes involved in the discharge management of this patient. SIGNATURE: Phillip Fritz MD PAGER/CONTACT #: [phone] DATE: December 24, 2017 TIME: 10:00 AM IM STAFF ADDENDUM - Jarad Antony TEAM Hall elements of history and physical examination of the patient were confirmed. The assessment and plan were formulated and discussed with the team on Rounds. I reviewed the resident's discharge note, and agree with the documented findings and plan of care. Hitesh Molina MD PLAN OF CARE Observed: 12/23/2017 Status: COMPLETED Source: [place] 3:15 PM [facility] REPOSITORY HNO ID: [id number] Author: Jacky Mae (Leaf Size Picker) Service: (none) Author Type: (none) Type: Plan of Care Filed: 12/23/2017 3:16 PM Note Text: CONSTRUCTION INSPECTOR BEDSIDE DELIVERY SURVEY 1. Patient to use [facility] Bedside Delivery - YES 2. If fax, patient would like us to fax prescriptions to Pharmacy of choice a. Pharmacy: b. Location: c. Phone: 3. Insurance card on file - YES 4. Credit card for payment - N/A No prescriptions yet. Please page [phone] upon discharge. NUTRITION Observed: 12/23/2017 Status: COMPLETED Source: [place] 10:48 AM [facility] REPOSITORY HNO ID: [id number] Author: Swathi Coulter-T) Russell Service: Nutrition Therapy Author Type: Big Data Admin Type: Nutrition Filed: 12/23/2017 10:49 AM Note Text: NUTRITION THERAPY FOLLOW-UP NOTE SERVICE DATE: 12/23/2017 SERVICE TIME: 933 Anthropometrics: Height: 160 cm (5' 3) Current Weight: Weight: 80.6 kg (177 lb 11.1 oz) Body mass index is 31.48 kg/m?. Loss of lean body mass/visual muscle wasting: no Admitting Diagnosis: Septicemia (HCC) [A41.9] Present Diet Order: Regular Is the patient having any pain that is interfering with oral/enteral intake? No Allergies: ALLERGIES Allergen Reactions - Anesthesia [Other] GI Upset Reason for Visit: Nutrition screen: LOS > 6 days Nutrient intake assessment: Current intake of meals: 50 - 75% Patient concerns/Issues: The patient states her appetite has been consistent. Snacks and supplements were declined. The patient understands the importance of protein in her diet. She still declined supplements. Will continue to monitor Nursing Admission Assessment Malnutrition Score Tool: 1 Plan of Care: Recommendation No problems noted at this time. Will screen again within 7 days Discharge Plan: Regular MNT Billing Type: Routine Care/15 min 1 unit SIGNATURE: KIN Meredith PATIENT NAME: Stephie Ugarte DATE: December 23, 2017 TIME: 10:48 AM PAGER: [phone] PROGRESS Observed: 12/23/2017 Status: COMPLETED Source: [facility] 7:41 AM [facility] REPOSITORY HNO ID: [id number] Author: Hitesh Molina Service: General Internal Medicine Author Type: Physician Type: Progress Notes Filed: 12/23/2017 2:48 PM Note Text: INTERNAL MEDICINE PROGRESS NOTE Patient Name: tSephie Ugarte Date of Serivce: 12/23/2017 Time: 7:42 AM PRIMARY SERVICE: Jarad Antony HOSPITAL DAY: # 11 BRIEF PLAN FOR THE DAY - Continue to monitor, plan for discharge on 12/24 INTERVAL SUBJECTIVE HISTORY - No events overnight. BMP normal with K 3.6 today. Vancomycin level 24.2 yesterday. RVP negative. - Blood cultures from 12/20 negative x3 days. Briefly, 72 year old female with a PMH for HTN and chronic back pain who recently had neurostimulator placed (11/13), complicated by hardware infection and MRSA bacteremia s/p hardware removal (11/30). She had presented to the OSH ED with AMS and was treated for sepsis (11/21) due to hardware infection, culture positive for MRSA despite vancomycin and short course of daptomycin. S/P IANDD prior to transfer to [facility] for surgical management by Spine consultants, now s/p wound vac placement and culture negative from 12/16. PHYSICAL EXAM: Patient Vitals for the past 24 hrs: BP Temp Temp src Pulse Resp SpO2 Weight 12/23/17 0600 120/63 36.4 ?C (97.5 ?F) Oral 69 24 93 % 80.6 kg (177 lb 11.1 oz) 12/23/17 0335 123/67 - - 89 - 96 % - 12/23/17 0200 (!) 127/47 36.8 ?C (98.3 ?F) Oral 78 24 92 % - 12/22/17 2313 148/70 37.2 ?C (98.9 ?F) Oral 80 20 94 % - 12/22/17 1747 118/53 36.8 ?C (98.3 ?F) Oral 81 20 97 % - 12/22/17 1354 127/58 36.7 ?C (98.1 ?F) Oral 86 18 96 % - 12/22/17 1020 122/55 36.8 ?C (98.2 ?F) Oral 88 20 95 % - 12/22/17 0932 141/68 36.6 ?C (97.9 ?F) Oral 80 20 97 % - Body mass index is 31.48 kg/m?. GENERAL: Alert, no distress, cooperative SKIN: Skin color, texture, turgor normal. No rashes or lesions., wound on back extending from paraspinal thoracic/lumbar regions down to hips continue to drain serosanguineous fluid. No evidence of new erythema or purulent drainage. OROPHARYNX: Lips, mucosa, and tongue are normal.Teeth and gums, normal. Oropharynx normal. NECK: No jugulovenous distention, No carotid bruits, Carotid pulse normal contour, Supple LUNGS: Lungs clear to auscultation. Good diaphragmatic excursion. CARDIAC: Normal S1 and S2; no rubs, murmurs, or gallops ABDOMEN: ?Abdomen soft, non-tender, BS normal, No masses or organomegaly EXTREMITIES: Extremities normal, no deformities, edema, clubbing or skin discoloration. Good capillary refill., No ulcers NEURO: ?Alert, oriented X 3, Gait normal. Non-focal. Reflexes normal and symmetric. Sensation grossly intact., Cranial nerves II-XII intact PULSES: ?2+ radial, 2+ carotid MEDICATIONS Current hospital medications: benzocaine-menthol 1 Lozenge (CEPACOL) 1 Lozenge MUCOUS MEMBRANE (TOPICAL MOUTH AND THROAT) q 2 H PRN polyethylene glycol 3350 17 g packet (MIRALAX, GLYCOLAX) 17 g ORAL/FEEDING TUBE DAILY 0.9% NaCl 10 mL 10 mL INTRAVENOUS q 12 H 0.9% NaCl 20 mL 20 mL INTRAVENOUS PRN vancomycin iv piggyback 1 g in D5W 200 mL (VANCOCIN) 1 g INTRAVENOUS q 12 HR sodium hypochlorite 0.125 % in empty bag Total Volume 960 mL topical irrigation 75 mL/hr IRRIGATION Q 3 and 1/2 HR acetaminophen 650 mg tab(s) (TYLENOL) 650 mg ORAL q 6 H PRN heparin 5,000 Units injection 5,000 Units SUBCUTANEOUS q 12 H vancomycin dosing and monitoring per pharmacy OTHER As Directed oxyCODONE IR 5-10 mg tab(s) (ROXICODONE) 5-10 mg ORAL q 6 H PRN lisinopril 10 mg tab(s) (ZESTRIL, PRINIVIL) 10 mg ORAL DAILY ondansetron (PF) 4 mg injection (ZOFRAN) 4 mg INTRAVENOUS q 6 H PRN DATA Recent Labs 12/20/17 1129 WBC 8.37 HB 8.9* HCT 27.9* PLT 357 Recent Labs 12/23/17 0418 12/21/17 0528 12/20/17 1129 NA 134* 132* 133* K 3.6* 4.0 3.8 CO2 26 24 26 BUN 14 14 16 CREAT 0.66 0.61 0.67 GLUC 94 96 97 IMAGING ASSESSMENT AND PLAN Briefly, 72 year old female with a PMH for HTN and chronic back pain who recently had neurostimulator placed (11/13), complicated by hardware infection and MRSA bacteremia s/p hardware removal (11/30). She had presented to the OSH ED with AMS and was treated for sepsis (11/21) due to hardware infection, culture positive for MRSA despite vancomycin and short course of daptomycin. S/P IANDD prior to transfer to [facility] for surgical management by Spine consultants, now s/p wound vac placement and culture negative from 12/16. PICC line placed due to difficulty with peripheral access. ? MRSA bacteremia, suspected to be due to spread from infected paraspinal hardware s/p removal, resolving and stable MRI spine repeated after admission demonstrating epidural abscess and match meningitis. Following cultures which have now begun to be negative since drawn on 12/16. ID consulted and agree with vancomycin dosing. Neurosurgery consulted for wound vac placement and Wound Care team following. ? - Continue to follow blood cultures. PICC placed on 12/19. - Vancomycin doses skipped 2100 on 12/18 and 0900 on 12/19 due to access; will receive 1.5g at 2100 on 12/19 and resumed prior dosing 12/20. Trough 24.2 on 12/22. ? Epidural abscess Demonstrated on MRI on admission significant for T2 - T3 epidural abscess. OSH MRI on 12/11 had confirmed anterior T2-5 and T8-11 posterior epidural spaces with irregular enhancement and potential edema at T3- 4. S/P vancomycin and wound vac placement. Blood cutulres?from 12/16.negative x 3 days ? - Continue with vancomycin, target trough 15 - 25. Level was 24.2 on 12/22 - PICC line received 12/19. ? Chronic Medical issues - HTN: stable, continue lisinopril 10mg daily - Right lower extremity (ankle) ulcer, Right ankle pressure injury, Stage 1, POA , stable since admission. Undergoing daily dressing changes and/or irrigation as needed. Healing well upon visual examination. - Subjective cough: Normal CXR with interim improvement since last image. Medication and Non-Pharmacologic VTE Prophylaxis/Anticoagulants Anticoagulant AND Antiplatelet Medications Start Dose Route Frequency Ordered Stop 12/14/17 1600 heparin 5,000 Units injection (Medical At Risk ) 5,000 Units SUBCUTANEOUS EVERY 12 HOURS 12/14/17 1534 -- 12/14/17 1545 pneumatic compression stockings (ks,mo) 12/12/17 1815 pneumatic compression stockings (ks,mo) 12/12/17 0345 vte non-pharmacologic prophylaxis - none indicated (ks,mo) 12/12/17 0345 activity - mobilize patient (ks,mo) VTE Prophylaxis: VTE prophylaxis appropriate SIGNATURE: Phillip Fritz MD PATIENT NAME: Stephie Ugarte DATE: December 23, 2017 TIME: 7:42 AM PAGER/CONTACT #: [phone] [facility] STAFF PHYSICIAN NOTE OF PERSONAL INVOLVEMENT IN CARE ? I have reviewed the progress note?obtained and documented by the resident?and I personally participated in the hall components. I have discussed the case and management of the patient's care. The following comments revise or confirm relevant hall components of their note. ? IMPRESSION:?This is a 72 year old female with chronic back pain s/p spinal cord stimulator placement 11/13/2017 complicated with MRSA bacteremia s/p stimulator removal 11/30 who presents as a transfer with persistent MRSA bacteremia with out sepsis ??Has history of bilateral TKA and RODGER ? Found to have T2/3 epidural abscess on MRI with ? cord compression and pachymeningitis Seen by NSGY no surgical intervention at this time suggested wound vac placement and continue antibiotics Surface echocardiogram w/o evidence of IE ? Doing well Copat In chart ? PLAN:?? continue vancomycin discharge planning; d/c to SNF tomorrow Follow up with ID Follow up with NSGY with Dr. Coleman to assess wounds at that time Hitesh Molina MD December 23, 2017 2:48 PM BASIC METABOLIC PANL Collected: 12/23/2017 Status: F Source: [facility] 4:18 AM [facility] REPOSITORY TYPE CODE TESTS RESULT OUT OF REFERENCE UNITS RANGE LAB GLU 74-99 mg/dL Glucose 94 Result Comment: The [place] [employer] (ADA) provides guidance for cutoff values for fasting glucose and random glucose. The ADA defines fasting as no caloric intake for at least 8 hours. Fas ting plasma glucose results between 100 to 125 mg/dL indicate increased risk for diabetes (prediabetes). Fasting plasma glucose results greater than or equal to 126 mg/dL meet the criteria for diagnosis of diabetes. In the absence of unequivocal hyperglycemia, results should be confirmed by repeat testing. In a patient with classic symptoms of hyperglycemia or hyperglycemic crisis, random plasma glucose results greater than or equal to 200 mg/dL meet the criteria for diagnosis of diabetes. Reference: Standards of Medical Care in Diabetes 2016, [place] [employer]. Diabetes Care. 2016.39(Suppl 1). LAB BUN 7-21 mg/dL BUN 14 LAB CRET 0.58-0.96 mg/dL Creatinine 0.66 LAB NA 136-144 mmol/L Sodium Low 134 LAB K 3.7-5.1 mmol/L Potassium Low 3.6 LAB CL 97-105 mmol/L Chloride Low 95 LAB CO2 22-30 mmol/L CO2 26 LAB AGAP 9-18 mmol/L Anion Gap 13 LAB CA 8.5-10.2 mg/dL Calcium, Total 8.7 LAB GFRAA eGFR- Amer. >60 LAB GFRNAA . eGFR-All Other Races >60 Result Comment: eGFR (Estimated GFR) Units of measure: mL/min/1.73 meters squared eGFR is derived from the reexpressed MDRD Study equation using the following parameters: serum creatinine, age, gender and race. The creatinine assay has been calibrated to be traceable to IDMS. An eGFR <60 mL/min/1.73m2 for >3 months is consistent with chronic kidney disease. Refer to KDOQI guidelines for clinical interpretation. In patients with unstable renal function, e.g. those with acute kidney injury, the eGFR may not accurately reflect actual GFR. Performed By: #### BMP #### [facility] [address] [place], [place] [address] ALLIED HEALTH Observed: 12/22/2017 Status: COMPLETED Source: [facility] 3:50 PM [facility] REPOSITORY HNO ID: [id number] Author: Hayder RodriguezBack Up Worker) Myriam, Student Service: Spiritual Care Author Type: Back Up Worker Type: Allied Health Filed: 12/22/2017 3:53 PM Note Text: SPIRITUALCARE Spiritual Care Visit- Brief Note Name: Stephie Ugarte Date: December 22, 2017 Notes: Patient not in room. Back Up Worker Signature: Hayder Miguel, Back Up Worker Manager Business Information To contact the Spiritual Care Department: Please call [phone] or Page the On-Call Back Up Worker at pager [phone] Thank you for the opportunity to be of service. This is an electronically created document. IF PRINTED, PLEASE DO NOT REMOVE FROM THE CHART OR MODIFY PRINTED COPY. [facility] Observed: 12/22/2017 Status: COMPLETED Source: [facility] 1:23 PM [facility] REPOSITORY HNO ID: [id number] Author: Kaz (First Officer) Service: Wound/Ostomy Author Type: Clinical Nurse Specialist Type: Allied Health Filed: 12/22/2017 1:36 PM Note Text: This is a note of medical necessity for wound vac treatment. WOUND OSTOMY INPATIENT PROGRESS NOTES Name: Stephie Ugarte Date: December 22, 2017 S: INTERVAL HPI and PERTINENT ROS: This is a 72 year old female with MRSA bacteremia source - infected nerves stimulator and battery. MRI at OSHshowing concerns of edema around spinal cord. She presents with explanted stimulator wound right buttocks and thoracolumbar wound currently managed with veraflow / Dakins? O: MEDICATIONS: Current hospital medications: benzocaine-menthol 1 Lozenge (CEPACOL) 1 Lozenge MUCOUS MEMBRANE (TOPICAL MOUTH AND THROAT) q 2 H PRN polyethylene glycol 3350 17 g packet (MIRALAX, GLYCOLAX) 17 g ORAL/FEEDING TUBE DAILY 0.9% NaCl 10 mL 10 mL INTRAVENOUS q 12 H 0.9% NaCl 20 mL 20 mL INTRAVENOUS PRN vancomycin iv piggyback 1 g in D5W 200 mL (VANCOCIN) 1 g INTRAVENOUS q 12 HR sodium hypochlorite 0.125 % in empty bag Total Volume 960 mL topical irrigation 75 mL/hr IRRIGATION Q 3 and 1/2 HR acetaminophen 650 mg tab(s) (TYLENOL) 650 mg ORAL q 6 H PRN heparin 5,000 Units injection 5,000 Units SUBCUTANEOUS q 12 H vancomycin dosing and monitoring per pharmacy OTHER As Directed oxyCODONE IR 5-10 mg tab(s) (ROXICODONE) 5-10 mg ORAL q 6 H PRN lisinopril 10 mg tab(s) (ZESTRIL, PRINIVIL) 10 mg ORAL DAILY ondansetron (PF) 4 mg injection (ZOFRAN) 4 mg INTRAVENOUS q 6 H PRN PHYSICAL EXAM: BP 122/55 Pulse 88 Temp 36.8 ?C (98.2 ?F) (Oral) Resp 20 Ht 5' 3 (1.6 m) Wt 89 kg (196 lb 3.4 oz) SpO2 95% BMI 34.76 kg/m? Intake/Output Summary (Last 24 hours) at 12/22/17 1323 Last data filed at 12/22/17 1300 Gross per 24 hour Intake 1036 ml Output 1575 ml Net -539 ml Date 12/22/17 07 - 12/23/17 0659 Shift 2135-8722 8690-1667 3084-7235 24 Hour Total I N T A K E PO 236 236 IV 100 100 Shift Total 336 336 O U T P U T Urine 550 550 Shift Total 550 550 Weight (kg) 89 89 89 89 WOUND CHARACTERISTICS Type: Surgical Duration of wound in weeks: 1 Measurements: Deferred 12/21 12/17 Thoracolumbar: 4cm x 1.5cm x 3.2cm with 3cm undermine at 1300 12/17 Gluteal: 1cm x 7cm x 3.3cm with undermining 6.3cm @ 1200 - 3cm @ 0200 - 4.4cm @ 0600 Is there exudate present: Yes packing with creamy serosang Prior therapies attempted: Wet to Dry / Veraflow Dakins Nutritional status effecting wound healing: No Pre albumin level obtained: No results found for this basename: ?PREALB:2? LABS CBC, Coags, BMP, Mg, Phos Recent Labs 12/21/17 0528 12/20/17 1129 WBC -- 8.37 HB -- 8.9* HCT -- 27.9* PLT -- 357 NA 132* 133* K 4.0 3.8 CHLOR 92* 95* CO2 24 26 BUN 14 16 CREAT 0.61 0.67 GLUC 96 97 CA 9.1 9.0 ASSESSMENT and PLAN of Care: Veraflow dressing intact, compressed maintaining prescribed therapy. Surrounding tissue intact with no overt signs of infection, Goal: - Exudate mgmt - bioburden mgmt - pain mgmt - avoid wound cross contamination - optimize nutrition - secondary intention ? DC Recommendations: - For transfer To SNF/LTAC DC Veraflow remove foam apply wet to dry dressing Wound Care: - Cleanse periwound soap and water dry thoroughly - Irrigate wounds copious amounts NS - apply skin barrier to periwounds extending to left / right lateral trunk for bridging - apply transparent dressing over periwound extending to lateral trunk - Insert medium Simplace VAC foam into wounds to include undermined cavities bridge foam at the trunk - dressing change Mon AND Thurs or Tu and Fri - nutrition to support wound healing / energy needs - aggressive off loading. Minimize time on back - May shower allowing direct stream to contact wound - DO NOT IMMERSE.. No bath, pool, etc... - follow up with primary service / plastics as directed SIGNATURE: Kaz Luz APRN.WEB PRESSMAN PAGER: [phone] *A review of daily goals, interventions, and plan of care with the multidisciplinary team and patient has been conducted. The patient?s concerns have been addressed and he/she agrees to proceed with today?s plan of care. CASE MANAGEM Observed: 12/22/2017 Status: COMPLETED Source: [facility] 1:[address] [facility] REPOSITORY HNO ID: [id number] Author: Brenda RodriguezRn) JINNY Sargent Service: Care Management Author Type: Registered Nurse Type: Care Mgt Progress Note Filed: 12/22/2017 1:15 PM Note Text: CARE MANAGEMENT PROGRESS NOTE SERVICE DATE: 12/22/2017 SERVICE TIME: 1315 LOS: 10 days Needs Prior to Discharge: IV Antibiotics;Wound Care D/C at 10am to [facility] via [facility] transport. Daughter paid the up-front funds. IV abx via PICC. Need copat. Need new wound care recs for traditional vac. Please notify Case Management for any changes in skilled needs. Thank you. SIGNATURE: Brenda Sargent RN PATIENT NAME: Stephie Ugarte DATE: December 22, 2017 TIME: 1:15 PM PAGER/CONTACT #: [phone] CASE MANAGEM Observed: 12/22/2017 Status: COMPLETED Source: [facility] 11:17 AM [facility] REPOSITORY HNO ID: [id number] Author: Joanna Baires Service: Care Management Author Type: (none) Type: Care Mgt Progress Note Filed: 12/22/2017 11:18 AM Note Text: CARE MANAGEMENT PROGRESS NOTE SERVICE DATE: 12/22/2017 SERVICE TIME: 11:04 AM LOS: 10 days IM letter given to patient on 12/22/17. SIGNATURE: Eriberto Kwonrical Assistant PATIENT NAME: Stephie Ugarte DATE: December 22, 2017 TIME: 11:17 AM PAGER/CONTACT #: [phone] CONSULT PROG Observed: 12/22/2017 Status: COMPLETED Source: [facility] 11:04 AM [facility] REPOSITORY HNO ID: [id number] Author: Valentina Ponce (Pharmacist) Service: Pharmacy Author Type: Pharmacist Type: Consult Progress Note Filed: 12/22/2017 11:17 AM Note Text: PHARMACY VANCOMYCIN DOSING NOTE Patient Name: Stephie Ugarte Admission Date: 12/12/2017 Date of Consult: 12/22/2017 Time of Consult: 11:04 AM Indication: WEB PRESSMAN infection Goal Range: 15-25 mcg/mL RECOMMENDATIONS/PLAN: Pharmacy consulted for vancomycin dosing for Stephie Ugarte, a 72 year old, female who is being treated with vancomycin for WEB PRESSMAN infection. 1. Patient is currently ordered Vancomycin 1 g IV q12h. Today is day 11 of therapy. 2. The most recent vancomycin level was 24.2 mcg/mL drawn at 0655 on 12/22/17. This is a 11 hour level on the 11th day of therapy. 3. The present dose of vancomycin is the recommended dosage for this patient at this time. Continue therapy as prescribed. 4. The next vancomycin level will be ordered for 12/27 unless clinically indicated sooner. (Pharmacy will order) We will follow patient renal function, vancomycin levels and doses with you during the course of therapy. Additional recommendations will appear in follow up notes. If you have any questions, please contact Colt WilliamD at [phone]. Age: [age] year old Allergies: ALLERGIES Allergen Reactions - Anesthesia [Other] GI Upset Last 3 Encounter Wt Readings: Date: Wt: 12/11/2017 89 kg (196 lb 3.4 oz) 11/09/2017 80.3 kg (177 lb) 06/26/2017 82.1 kg (181 lb) Last 1 Encounter Ht Readings: Date: Ht: 12/11/2017 160 cm (5' 3) CrCl: 90 mL/min Temp (24hrs), Av.6 ?C (97.8 ?F), Min:36.5 ?C (97.7 ?F), Max:36.8 ?C (98.2 ?F) - Current Temp: 36.8 ?C (98.2 ?F) Labs BUN (mg/dL) Date Value 12/21/2017 14 12/20/2017 16 12/17/2017 15 Creatinine (mg/dL) Date Value 12/21/2017 0.61 12/20/2017 0.67 12/17/2017 0.62 WBC (k/uL) Date Value 12/20/2017 8.37 12/17/2017 7.16 12/15/2017 7.87 Vancomycin Levels: Vancomycin, result (ug/mL) Date/Time Value 12/22/2017 0655 24.2 (H) 12/17/2017 1542 24.8 (H) VALENTINA PONCE, PHARMACIST [facility] Observed: 12/22/2017 Status: COMPLETED Source: [facility] 10:20 AM [facility] REPOSITORY HNO ID: [id number] Author: Wally (Therapist) Santosh Service: Music Therapy Author Type: Music Therapist Type: Allied Health Filed: 12/22/2017 12:45 PM Note Text: MUSIC THERAPY NOTE SERVICE DATE: 12/22/2017 SERVICE TIME: 1020 Attempted music therapy session: nursing unit coordinator in with pt, reported that pt recovering from headache and declined services at this time. Appreciate referral - will follow. SIGNATURE: Tosin Hines PATIENT NAME: Stephie Ugarte DATE: December 22, 2017 TIME: 12:44 PM PAGER/CONTACT #: [phone] THERAPY NT Observed: 12/22/2017 Status: COMPLETED Source: [facility] 9:28 AM [facility] REPOSITORY HNO ID: [id number] Author: Romulo Martinez Service: Physical Therapy Author Type: Slip Mixer Type: Therapy (PT/OT/Speech/Resp) Filed: 12/22/2017 9:28 AM Note Text: Attestation signed by Khang Burgess) Juan at 12/22/2017 11:49 AM I reviewed and agree with the documentation corresponding to this therapy visit. SIGNATURE: Khang Martinez PT DATE: December 22, 2017 TIME: 11:49 AM PHYSICAL THERAPY MISSED VISIT SERVICE DATE: 12/22/2017 SERVICE TIME: 927 to 927 ROOM: [place] [address] Attempted Treatment. Patient not seen due to Another service at bedside. SIGNATURE: Romulo Martinez PTA PATIENT NAME: Stephie Ugarte DATE: December 22, 2017 TIME: 9:28 AM CONSULT PROG Observed: 12/22/2017 Status: COMPLETED Source: [facility] 9:10 AM [facility] REPOSITORY HNO ID: [id number] Author: Denisse Osorio Service: Infectious Disease Author Type: Physician Type: Consult Progress Note Filed: 12/23/2017 10:07 AM Note Text: INFECTIOUS DISEASE CONSULT PROGRESS NOTE SERVICE DATE: 12/22/2017 documentation complted 12/23 Subjective INTERVAL HISTORY: she is afebrile RV panel negative her sore throat and runny nose are better she has no rash no diarrhea tolerating the vancomycin fine Current Facility-Administered Medications: benzocaine-menthol 1 Lozenge (CEPACOL) 1 Lozenge MUCOUS MEMBRANE (TOPICAL MOUTH AND THROAT) q 2 H PRN polyethylene glycol 3350 17 g packet (MIRALAX, GLYCOLAX) 17 g ORAL/FEEDING TUBE DAILY 0.9% NaCl 10 mL 10 mL INTRAVENOUS q 12 H 0.9% NaCl 20 mL 20 mL INTRAVENOUS PRN vancomycin iv piggyback 1 g in D5W 200 mL (VANCOCIN) 1 g INTRAVENOUS q 12 HR sodium hypochlorite 0.125 % in empty bag Total Volume 960 mL topical irrigation 75 mL/hr IRRIGATION Q 3 and 1/2 HR acetaminophen 650 mg tab(s) (TYLENOL) 650 mg ORAL q 6 H PRN heparin 5,000 Units injection 5,000 Units SUBCUTANEOUS q 12 H vancomycin dosing and monitoring per pharmacy OTHER As Directed oxyCODONE IR 5-10 mg tab(s) (ROXICODONE) 5-10 mg ORAL q 6 H PRN lisinopril 10 mg tab(s) (ZESTRIL, PRINIVIL) 10 mg ORAL DAILY ondansetron (PF) 4 mg injection (ZOFRAN) 4 mg INTRAVENOUS q 6 H PRN Objective PHYSICAL EXAM: Vital Signs: BP 149/63 Pulse 85 Temp 36.6 ?C (97.8 ?F) (Oral) Resp 18 Ht 160 cm (5' 3) Wt 89 kg (196 lb 3.4 oz) SpO2 95% BMI 34.76 kg/m? Constitutional: awake alert ox3 exam unchnaged from 12/21 sitting up in chair Eyes: anicteric sclerae full eoms Ear, Nose, Mouth and Throat: normal oropharyngeal exam; good dentition; no thrush Neck: supple neck; no cervical lda Respiratory: CTA Cardiovascular: s1 s2 rrr no murmurs Abdomen: nontender nondistended Genitourinary: deferred Extremities: bipedal edema (chronic) Skin: no rash Neurologic: unchanged neuro exam from last visit 12/21 DATA: Diagnostic Tests Reviewed for Today's Visit: reviewed Impression/Recommendations 72F from [place] transferred for recurrence of MRSA bacteremia and purulence from surgical site h/o c spine hardware placement lumbar stenosis s/p lumbar laminectomy, fusion bilateral TKA and bilateral RODGER SCS placement 11/13/2017 c/b infected SCS marked by copious bloody drainage from the surgical sites and mental status changes. Admitted to [facility] with MRSA bacteremia s/p SCS removal (including catheter) 11/30/2017 -- per Dr. Rutledge review - MRSA bacteremia cleared but relapsed per records. despite washout and daptomycin, noted to have gross purulence and dehiscence 12/11/2017 ? Readmitted?with relapsing MRSA bacteremia. Repeat MRI 12/13 reviewed with T2/3 epidural abscess and ?cord compression and pachymeningitis Suspected primary source - previous SCS site with purulence - s/p vac placement 12/15/2017 - wound beds are clean and do not show anymore signs of purulent drainage or infection as of last vac change 12/17 (see primary team progress note images) ? Enterobacter from single set blood culture without any change in her clinical status - afebrile. no central lines. suspect contaminant Fevers associated with sore throat and runny nose - suspect viral URI vs allergies; resolving CXR reviewed - LLL atelectasis vs smal effusion;no acute infiltrate PLAN continue vancomycin IV copat in place for 6 weeks ffup with me 01/20/2018 she needs OPD followup with neurosurgery to readdress spinal stabilization when she is clinically improved she will also need OPD followup with wound care team to address wound care and vac dressing duration SIGNATURE: Denisse Osorio MD PATIENT NAME: Stephie Ugarte DATE: December 22, 2017; documentation completed 12/23/2017 TIME: 5:17 PM PAGER/CONTACT #: [phone] PROGRESS Observed: 12/22/2017 Status: COMPLETED Source: [facility] 7:19 AM [facility] REPOSITORY HNO ID: [id number] Author: Hitesh Molina Service: General Internal Medicine Author Type: Physician Type: Progress Notes Filed: 12/22/2017 4:06 PM Note Text: INTERNAL MEDICINE PROGRESS NOTE Patient Name: Stephie Ugarte Date of Serivce: 12/22/2017 Time: 7:19 AM PRIMARY SERVICE: Jarad Antony HOSPITAL DAY: # 10 BRIEF PLAN FOR THE DAY - Continue with antibiotics and culture monitoring - Prepare for discharge to SNF on 12/23 in the AM - Continue monitoring; follow up on RVP which was sent 12/22. INTERVAL SUBJECTIVE HISTORY - 12/16 blood cultures negative. - RVP ordered due to sore throat/cough. Rapid RSV negative for Influenza, RSV PCR negative. - 12/20 blood cultures negative - CXR: Improvement of previously seen vague perihilar and basilar opacities suggestive of atelectasis with possible superimposed edema and/or inflammation. ?Underlying small left pleural effusion versus pleural thickening is again seen. ?No pneumothorax Briefly, 72 year old female with a PMH for HTN and chronic back pain who recently had neurostimulator placed (11/13), complicated by hardware infection and MRSA bacteremia s/p hardware removal (11/30). She had presented to the OSH ED with AMS and was treated for sepsis (11/21) due to hardware infection, culture positive for MRSA despite vancomycin and short course of daptomycin. S/P IANDD prior to transfer to [facility] for surgical management by Spine consultants, now s/p wound vac placement and culture negative from 12/16. ? PHYSICAL EXAM: Patient Vitals for the past 24 hrs: BP Temp Temp src Pulse Resp SpO2 12/22/17 0245 144/61 36.5 ?C (97.7 ?F) Axillary 77 18 96 % 12/21/17 2315 121/54 36.5 ?C (97.7 ?F) Oral 80 18 97 % 12/21/17 1749 146/62 36.5 ?C (97.7 ?F) Oral 96 20 97 % 12/21/17 1414 126/57 36.5 ?C (97.7 ?F) Oral 87 16 96 % 12/21/17 1000 134/65 36.5 ?C (97.7 ?F) Oral 92 16 94 % 12/21/17 0827 144/54 - - 86 - - 12/21/17 0800 144/54 - - 86 - 98 % Body mass index is 34.76 kg/m?. GENERAL: Alert, no distress, cooperative SKIN: Skin color, texture, turgor normal. No rashes or lesions., wound on back extending from paraspinal thoracic/lumbar regions down to hips continue to drain serosanguineous fluid. No evidence of new erythema or purulent drainage. OROPHARYNX: Lips, mucosa, and tongue are normal.Teeth and gums, normal. Oropharynx normal. NECK: No jugulovenous distention, No carotid bruits, Carotid pulse normal contour, Supple LUNGS: Lungs clear to auscultation. Good diaphragmatic excursion. CARDIAC: Normal S1 and S2; no rubs, murmurs, or gallops ABDOMEN: ?Abdomen soft, non-tender, BS normal, No masses or organomegaly EXTREMITIES: Extremities normal, no deformities, edema, clubbing or skin discoloration. Good capillary refill., No ulcers NEURO: ?Alert, oriented X 3, Gait normal. Non-focal. Reflexes normal and symmetric. Sensation grossly intact., Cranial nerves II-XII intact PULSES: ?2+ radial, 2+ carotid ? MEDICATIONS Current hospital medications: benzocaine-menthol 1 Lozenge (CEPACOL) 1 Lozenge MUCOUS MEMBRANE (TOPICAL MOUTH AND THROAT) q 2 H PRN polyethylene glycol 3350 17 g packet (MIRALAX, GLYCOLAX) 17 g ORAL/FEEDING TUBE DAILY 0.9% NaCl 10 mL 10 mL INTRAVENOUS q 12 H 0.9% NaCl 20 mL 20 mL INTRAVENOUS PRN vancomycin iv piggyback 1 g in D5W 200 mL (VANCOCIN) 1 g INTRAVENOUS q 12 HR sodium hypochlorite 0.125 % in empty bag Total Volume 960 mL topical irrigation 75 mL/hr IRRIGATION Q 3 and 1/2 HR acetaminophen 650 mg tab(s) (TYLENOL) 650 mg ORAL q 6 H PRN heparin 5,000 Units injection 5,000 Units SUBCUTANEOUS q 12 H vancomycin dosing and monitoring per pharmacy OTHER As Directed oxyCODONE IR 5-10 mg tab(s) (ROXICODONE) 5-10 mg ORAL q 6 H PRN lisinopril 10 mg tab(s) (ZESTRIL, PRINIVIL) 10 mg ORAL DAILY ondansetron (PF) 4 mg injection (ZOFRAN) 4 mg INTRAVENOUS q 6 H PRN DATA Recent Labs 12/20/17 1129 WBC 8.37 HB 8.9* HCT 27.9* PLT 357 Recent Labs 12/21/17 0528 12/20/17 1129 NA 132* 133* K 4.0 3.8 CO2 24 26 BUN 14 16 CREAT 0.61 0.67 GLUC 96 97 IMAGING CXR from 12/22: Lines, tubes, and devices: ?Right-sided PICC line terminates in mid SVC.. Lungs and pleura: ?Improvement of previously seen vague perihilar and basilar opacities suggestive of atelectasis with possible superimposed edema and/or inflammation. ?Underlying small left pleural effusion versus pleural thickening is again seen. ?No pneumothorax.. Cardiomediastinal silhouette: ?Heart is borderline. ?Thoracic aorta is tortuous. Other: ?Degenerative changes are seen in the spine. ASSESSMENT AND PLAN Briefly, 72 year old female with a PMH for HTN and chronic back pain who recently had neurostimulator placed (11/13), complicated by hardware infection and MRSA bacteremia s/p hardware removal (11/30). She had presented to the OSH ED with AMS and was treated for sepsis (11/21) due to hardware infection, culture positive for MRSA despite vancomycin and short course of daptomycin. S/P IANDD prior to transfer to [facility] for surgical management by Spine consultants, now s/p wound vac placement and culture negative from 12/16. PICC line placed due to difficulty with peripheral access. ? MRSA bacteremia, suspected to be due to spread from infected paraspinal hardware s/p removal, resolving and stable MRI spine repeated after admission demonstrating epidural abscess and match meningitis. Following cultures which have now begun to be negative since drawn on 12/16. ID consulted and agree with vancomycin dosing. Neurosurgery consulted for wound vac placement and Wound Care team following. ? - Continue attempting to draw repeat blood cultures. PICC placed on 12/19. - Vancomycin doses skipped 2100 on 12/18 and 0900 on 12/19 due to access; will receive 1.5g at 2100 on 12/19 and resumed prior dosing 12/20. - Follow up next vancomycin level ? Epidural abscess Demonstrated on MRI on admission significant for T2 - T3 epidural abscess. OSH MRI on 12/11 had confirmed anterior T2-5 and T8-11 posterior epidural spaces with irregular enhancement and potential edema at T3- 4. S/P vancomycin and wound vac placement. Blood cutulres?from 12/16.negative x 3 days ? - Continue with vancomycin, target trough 15 - 25 - PICC line received 12/19. ? Chronic Medical issues - HTN: stable, continue lisinopril 10mg daily - Right lower extremity (ankle) ulcer, Right ankle pressure injury, Stage 1, POA , stable since admission. Undergoing daily dressing changes and/or irrigation as needed. Healing well upon visual examination. - Subjective cough: Normal CXR with interim improvement since last image. Medication and Non-Pharmacologic VTE Prophylaxis/Anticoagulants Anticoagulant AND Antiplatelet Medications Start Dose Route Frequency Ordered Stop 12/14/17 1600 heparin 5,000 Units injection (Medical At Risk ) 5,000 Units SUBCUTANEOUS EVERY 12 HOURS 12/14/17 1534 -- 12/14/17 1545 pneumatic compression stockings ([place] 12/12/17 1815 pneumatic compression stockings ([place] 12/12/17 0345 vte non-pharmacologic prophylaxis - none indicated (ks,mo) 12/12/17 0345 activity - mobilize patient ([place]) VTE Prophylaxis: VTE prophylaxis appropriate SIGNATURE: Phillip Fritz MD PATIENT NAME: Stephie Ugarte DATE: December 22, 2017 TIME: 7:19 AM PAGER/CONTACT #: [phone] [facility] STAFF PHYSICIAN NOTE OF PERSONAL INVOLVEMENT IN CARE ? I have reviewed the progress note obtained and documented by the resident and I personally participated in the hall components. I have discussed the case and management of the patient's care. The following comments revise or confirm relevant hall components of their note. ? IMPRESSION: This is a 72 year old female with chronic back pain s/p spinal cord stimulator placement 11/13/2017 complicated with MRSA bacteremia s/p stimulator removal 11/30 who presents as a transfer with persistent MRSA bacteremia with out sepsis ??Has history of bilateral TKA and RODGER ? Found to have T2/3 epidural abscess on MRI with ? cord compression and pachymeningitis Seen by NSGY no surgical intervention at this time suggested wound vac placement and continue antibiotics Surface echocardiogram w/o evidence of IE ? No chills, sore throat and runny nose improved Afebrile Lungs clear resp viral panel negative CXR no consolidation blood culture from 12/16 negative blood cultures 12/20 with NGTD ? PLAN: continue vancomycin discharge planning Hitesh Molina MD December 22, 2017 4:05 PM VANCOMYCIN Collected: 12/22/2017 Status: F Source: [facility] 6:55 AM [facility] REPOSITORY TYPE CODE TESTS RESULT OUT OF REFERENCE UNITS RANGE LAB VANCRA 5.0-20.0 ug/mL High Vancomycin 24.2 Result Comment: Reference ranges and high/low indicator flags are provided as general guidelines only. The treating physician must determine appropriate target levels/dosing based on the specific clinical situation. Performed By: #### VANCRA #### [facility] [address] [place], [place] [address] HOSP Observed: 12/22/2017 Status: COMPLETED Source: [facility] 12:00 AM [facility] REPOSITORY Patient Update (HSIDMN) STEPHIE UGARTE ([id number]) 1945 F Date Time Provider Department 12/22/17 DENISSE OSORIO HSIDMN During your visit today, we recorded the following information about you: Allergies As of Date: 12/22/2017 Noted Allergy Reaction ANESTHESIA [Other] 09/09/2004 8 - GI Upset Date Reviewed: 12/22/2017 Reviewed by: Audra Fitzpatrick) JINNY Salmeron - Fully Assessed Reason for Visit: CoPat Start [7079] Prescriptions as of 12/22/2017 Sig: LISINOPRIL 10 MG-HYDROCHLOROT* Take 1 tablet by mouth once d* Problem List As Of Date 12/22/2017 Noted Resolved GENERAL OSTEOARTHROSIS [M15.9] INVALID FOR* SYMPTOMATIC FEMALE CLIMACTERIC STATE [N95.1] INVALID FOR* ASA CLASS II [1001] INVALID FOR*01/14/2013 Essential hypertension, benign [I10] INVALID FOR* More... Pure hyperglyceridemia [E78.1] INVALID FOR*03/04/2016 Diverticulitis of colon [K57.32] INVALID FOR*01/14/2013 Asthmatic bronchitis [J45.909] INVALID FOR*03/27/2016 Neuritis of upper extremity [M79.2] INVALID FOR* Pes anserinus tendinitis or bursitis [DJF3409] INVALID FOR* Other disorder of muscle, ligament, and fascia *INVALID FOR* Hypercholesterolemia [E78.00] INVALID FOR* Bilateral low back pain without sciatica [M54.5]INVALID FOR*03/11/2016 Bilateral low back pain with left-sided sciatic*INVALID FOR*03/11/2016 Bilateral low back pain with sciatica [M54.40] INVALID FOR*03/11/2016 Persistent disorder of initiating or maintainin*INVALID FOR* Mild intermittent asthma without complication [*INVALID FOR* Acute midline low back pain with bilateral scia*INVALID FOR* MRSA bacteremia [R78.81] INVALID FOR* More... Soft tissue abscess [L02.91] INVALID FOR* More... Classic SmartForms filed during this visit: CoPAT Start Encounter Status:Closed by DENISSE OSORIO MD on 12/22/17 PROGRESS Observed: 12/21/2017 Status: COMPLETED Source: [facility] 10:14 PM [facility] REPOSITORY O ID: [id number] Author: Viviane Cody Service: (none) Author Type: (none) Type: Progress Notes Filed: 12/21/2017 10:15 PM Note Text: Radiology Service Progress Note PATIENT NAME: Stephie Ugarte DATE OF SERVICE: December 21, 2017 TIME: 10:14 PM PATIENT IDENTITY VERIFICATION COMPLETED USING TWO (2) METHODS: Patient confirmed name verbally and ID band matches.. PATIENT GENDER DATA: Female. status: : No status: NO. PATIENT RELEVANT IMPLANT DATA REVIEWED: Not Applicable RADIOLOGY DEPARTMENT: General X-ray: Exam(s) Completed: Chest X-Ray PERIPHERAL IV DATA: Not applicable SIGNED BY: Viviane Cody December 21, 2017 10:14 PM XR CHEST 2V FRONTAL/LAT Observed: 12/21/2017 Status: F Source: [facility] 10:10 PM [facility] REPOSITORY * * *Final Report* * * DATE OF EXAM: Dec 21 2017 10:10PM ALEX [id number] - XR CHEST 2V FRONTAL/LAT / PROCEDURE REASON: Acute respiratory illness * * * * Physician Interpretation * * * * EXAMINATION: CHEST RADIOGRAPH (2 VIEW FRONTAL and LATERAL) CLINICAL HISTORY: Acute respiratory illness, MQ: XC2_5 Comparison: 12/03/2017 RESULT: Lines, tubes, and devices: Right-sided PICC line terminates in mid SVC.. Lungs and pleura: Improvement of previously seen vague perihilar and basilar opacities suggestive of atelectasis with possible superimposed edema and/or inflammation. Underlying small left pleural effusion versus pleural thickening is again seen. No pneumothorax.. Cardiomediastinal silhouette: Heart is borderline. Thoracic aorta is tortuous. Other: Degenerative changes are seen in the spine. IMPRESSION: As above Program Schedule Clerk: ALEN Transcribe Date/Time: Dec 21 2017 10:58P Dictated by : MARY WALLACE MD This examination was interpreted and the report reviewed and electronically signed by: MARY WALLACE MD on Dec 21 2017 10:59PM EST [id number] [id number] PCR FLU/RSV Collected: 12/21/2017 Status: F Source: [facility] 6:[address] [facility] [place] REPOSITORY TYPE CODE TESTS RESULT OUT OF REFERENCE UNITS RANGE LAB FLRSRC Nasopharyngeal Specimen Swab Source LAB PCRFLA Negative for Influenza A Influenza A by RT PCR PCR LAB PCRFLB Negative for Influenza B Influenza B by RT PCR PCR LAB PCRRSV Negative for RSV RSV PCR by RT PCR Performed By: #### FLRSV, RVPPCR #### [facility] [address] [id number] RESP VIR PNL BY Collected: 12/21/2017 Status: F Source: [facility] PCR 6:51 PM [facility] REPOSITORY TYPE CODE TESTS RESULT OUT OF REFERENCE UNITS RANGE LAB RVPSRC Resp Viral Panl Nasopharyngeal Srce Swab LAB FLUARV Negative Influenza A Virus Negative LAB [id number] Negative Influenza A H1N1 Negative 09 LAB FLUBRV Negative Influenza B Virus Negative LAB RSVA Negative Resp Syncytial Negative Vir A LAB RSVB Negative Resp Syncytial Negative Vir B LAB PIV1 Negative Parainfluenza 1 Negative LAB PIV2 Negative Parainfluenza 2 Negative LAB PIV3 Negative Parainfluenza 3 Negative LAB HMPV Negative H Metapneumovirus Negative LAB HRV Negative Rhinovirus Negative LAB ADVBE Negative Adenovirus B/E Negative LAB ADVC Negative Adenovirus C Negative Performed By: #### FLRSV, RVPPCR #### [facility] [address] [place], [place] [address] CONSULT PROG Observed: 12/21/2017 Status: COMPLETED Source: [facility] 5:[address] [facility] REPOSITORY HNO ID: [id number] Author: Denisse Osorio Service: Infectious Disease Author Type: Physician Type: Consult Progress Note Filed: 12/21/2017 5:21 PM Note Text: INFECTIOUS DISEASE CONSULT PROGRESS NOTE SERVICE DATE: 12/21/2017 Subjective INTERVAL HISTORY: having fevers overnight with a sore throat and runny nose also with mild cough no SOB mild fevers Current Facility-Administered Medications: benzocaine-menthol 1 Lozenge (CEPACOL) 1 Lozenge MUCOUS MEMBRANE (TOPICAL MOUTH AND THROAT) q 2 H PRN polyethylene glycol 3350 17 g packet (MIRALAX, GLYCOLAX) 17 g ORAL/FEEDING TUBE DAILY 0.9% NaCl 10 mL 10 mL INTRAVENOUS q 12 H 0.9% NaCl 20 mL 20 mL INTRAVENOUS PRN vancomycin iv piggyback 1 g in D5W 200 mL (VANCOCIN) 1 g INTRAVENOUS q 12 HR sodium hypochlorite 0.125 % in empty bag Total Volume 960 mL topical irrigation 75 mL/hr IRRIGATION Q 3 and 1/2 HR acetaminophen 650 mg tab(s) (TYLENOL) 650 mg ORAL q 6 H PRN heparin 5,000 Units injection 5,000 Units SUBCUTANEOUS q 12 H vancomycin dosing and monitoring per pharmacy OTHER As Directed oxyCODONE IR 5-10 mg tab(s) (ROXICODONE) 5-10 mg ORAL q 6 H PRN lisinopril 10 mg tab(s) (ZESTRIL, PRINIVIL) 10 mg ORAL DAILY ondansetron (PF) 4 mg injection (ZOFRAN) 4 mg INTRAVENOUS q 6 H PRN Objective PHYSICAL EXAM: Vital Signs: BP 126/57 Pulse 87 Temp 36.5 ?C (97.7 ?F) (Oral) Resp 16 Ht 160 cm (5' 3) Wt 89 kg (196 lb 3.4 oz) SpO2 96% BMI 34.76 kg/m? Constitutional: awake alert ox3 sitting up in chair Eyes: anicteric sclerae full eoms Ear, Nose, Mouth and Throat: mild oropharyngeal erythema; good dentition; no thrush Neck: supple neck; no cervical lda Respiratory: CTA Cardiovascular: s1 s2 rrr no murmurs Abdomen: nontender nondistended Genitourinary: deferred Extremities: bipedal edema (chronic) Skin: no rash Neurologic: unchanged neuro exam from last visit 12/18 DATA: Diagnostic Tests Reviewed for Today's Visit: reviewed Impression/Recommendations 72F from [place] transferred for recurrence of MRSA bacteremia and purulence from surgical site h/o c spine hardware placement lumbar stenosis s/p lumbar laminectomy, fusion bilateral TKA and bilateral RODGER SCS placement 11/13/2017 c/b infected SCS marked by copious bloody drainage from the surgical sites and mental status changes. Admitted to [facility] with MRSA bacteremia s/p SCS removal (including catheter) 11/30/2017 -- per Dr. Rutledge review - MRSA bacteremia cleared but relapsed per records. despite washout and daptomycin, noted to have gross purulence and dehiscence 12/11/2017 ? Readmitted?with relapsing MRSA bacteremia. Repeat MRI 12/13 reviewed with T2/3 epidural abscess and ?cord compression and pachymeningitis Suspected primary source - previous SCS site with purulence - s/p vac placement 12/15/2017 - wound beds are clean and do not show anymore signs of purulent drainage or infection as of last vac change 12/17 (see primary team progress note images) ? Enterobacter from single set blood culture without any change in her clinical status - afebrile. no central lines. suspect contaminant Fevers associated with sore throat and runny nose - suspect viral URI PLAN Check respiratory viral panel vancomycin should cover group A streptococcus so less likely strep throat continue vancomycin IV await repeat blood culture CXR PA-lateral r/o acute infiltrate SIGNATURE: Denisse Osorio MD PATIENT NAME: Stephie Ugarte DATE: December 21, 2017 TIME: 5:17 PM PAGER/CONTACT #: [phone] [facility] Observed: 12/21/2017 Status: COMPLETED Source: [facility] 4:18 PM [facility] REPOSITORY HNO ID: [id number] Author: Mary Ellen Robledo Service: Art Therapy Author Type: Art Therapist Type: Allied Health Filed: 12/21/2017 4:18 PM Note Text: ART THERAPY NOTE SERVICE DATE: 12/21/2017 SERVICE TIME: 1515 H81-8 ? Referred By: Resident / fellow ? Reason for Referral: Relaxation COMMENTS: Pt unavailable for art therapy session when attempted as other provider bedside. AT will continue to follow up as able. SIGNATURE: Gene Ledesma Therapist PATIENT NAME: Stephie Ugarte DATE: December 21, 2017 TIME: 4:18 PM PAGER/CONTACT #: [phone] CASE MANAGEM Observed: 12/21/2017 Status: COMPLETED Source: [facility] 4:[address] [facility] [place] REPOSITORY HNO ID: [id number] Author: Brenda RodriguezRn) JINNY Sargent Service: Care Management Author Type: Registered Nurse Type: Care Mgt Progress Note Filed: 12/21/2017 4:01 PM Note Text: CARE MANAGEMENT PROGRESS NOTE SERVICE DATE: 12/21/2017 SERVICE TIME: 1600 LOS: 9 days Needs Prior to Discharge: Discharge Transportation;IV Antibiotics;Wound Care Thursday d/c to [facility] SNF. No precert needed d/t [place] [id number]-[id number] program. PICC line. Need copat and new wound care orders. Needs BLS transport. Please notify Case Management for any changes in skilled needs. Thank you. SIGNATURE: Brenda Sargent RN PATIENT NAME: Stephie Ugarte DATE: December 21, 2017 TIME: 4:00 PM PAGER/CONTACT #: [phone] [facility] Observed: 12/21/2017 Status: COMPLETED Source: [facility] 1:[address] [facility] [place] REPOSITORY HNO ID: [id number] Author: Kaz (William) Service: Wound/Ostomy Author Type: Clinical Nurse Specialist Type: Allied Health Filed: 12/21/2017 1:44 PM Note Text: This is a note of medical necessity for wound vac treatment. WOUND OSTOMY INPATIENT PROGRESS NOTES Name: Stephie Ugarte Date: December 21, 2017 S: INTERVAL HPI and PERTINENT ROS: This is a 72 year old female with MRSA bacteremia source - infected nerves stimulator and battery. MRI at OSHshowing concerns of edema around spinal cord. She presents with explanted stimulator wound right buttocks and thoracolumbar wound currently managed with veraflow / Dakins for ongoing wound care mgmt ? O: MEDICATIONS: Current hospital medications: benzocaine-menthol 1 Lozenge (CEPACOL) 1 Lozenge MUCOUS MEMBRANE (TOPICAL MOUTH AND THROAT) q 2 H PRN polyethylene glycol 3350 17 g packet (MIRALAX, GLYCOLAX) 17 g ORAL/FEEDING TUBE DAILY 0.9% NaCl 10 mL 10 mL INTRAVENOUS q 12 H 0.9% NaCl 20 mL 20 mL INTRAVENOUS PRN vancomycin iv piggyback 1 g in D5W 200 mL (VANCOCIN) 1 g INTRAVENOUS q 12 HR sodium hypochlorite 0.125 % in empty bag Total Volume 960 mL topical irrigation 75 mL/hr IRRIGATION Q 3 and 1/2 HR acetaminophen 650 mg tab(s) (TYLENOL) 650 mg ORAL q 6 H PRN heparin 5,000 Units injection 5,000 Units SUBCUTANEOUS q 12 H vancomycin dosing and monitoring per pharmacy OTHER As Directed oxyCODONE IR 5-10 mg tab(s) (ROXICODONE) 5-10 mg ORAL q 6 H PRN lisinopril 10 mg tab(s) (ZESTRIL, PRINIVIL) 10 mg ORAL DAILY ondansetron (PF) 4 mg injection (ZOFRAN) 4 mg INTRAVENOUS q 6 H PRN PHYSICAL EXAM: BP 134/65 Pulse 92 Temp 36.5 ?C (97.7 ?F) (Oral) Resp 16 Ht 5' 3 (1.6 m) Wt 89 kg (196 lb 3.4 oz) SpO2 94% BMI 34.76 kg/m? Intake/Output Summary (Last 24 hours) at 12/21/17 1338 Last data filed at 12/21/17 0942 Gross per 24 hour Intake 1268 ml Output 673 ml Net 595 ml Date 12/21/17 0700 - 12/22/17 0659 Shift 6867-5975 4632-0356 4561-2445 24 Hour Total I N T A K E PO 358 358 IV 210 210 Shift Total 568 568 O U T P U T Urine 73 73 Shift Total 73 73 Weight (kg) 89 89 89 89 WOUND CHARACTERISTICS Type: Surgical Duration of wound in weeks: 1 Measurements: Deferred 12/21 12/17 Thoracolumbar: 4cm x 1.5cm x 3.2cm with 3cm undermine at 1300 12/17 Gluteal: 1cm x 7cm x 3.3cm with undermining 6.3cm @ 1200 - 3cm @ 0200 - 4.4cm @ 0600 Is there exudate present: Yes packing with creamy serosang Prior therapies attempted: Wet to Dry / Veraflow Dakins Nutritional status effecting wound healing: No Pre albumin level obtained: No results found for this basename: ?PREALB:2? LABS CBC, Coags, BMP, Mg, Phos Recent Labs 12/21/17 0528 12/20/17 1129 WBC -- 8.37 HB -- 8.9* HCT -- 27.9* PLT -- 357 NA 132* 133* K 4.0 3.8 CHLOR 92* 95* CO2 24 26 BUN 14 16 CREAT 0.61 0.67 GLUC 96 97 CA 9.1 9.0 ASSESSMENT and PLAN of Care: Both wounds are clean with 100% viable tissue, unable to assess undermined cavities, periwound intact, edges flat, margins clean, no odor, no epibole, no overt signs of infection, labs conducive for wound healing ? Goal: - Exudate mgmt - bioburden mgmt - pain mgmt - avoid wound cross contamination - optimize nutrition - secondary intention ? Plan: - Veraflow Dakins 0.125% - 75cc - 10 min soak - 3.5 hour VAC cycle - bridge wounds - dressing change Mon AND Th - nutrition to support wound healing / energy needs - aggressive off loading. Minimize time on back - WOC nursing to perform wound care - d/w Yesica Mcallister MD ? Intervention: Pt was placed in left lateral recumbent position. Wounds cleansed soap and water. Skin barrier applied to periwounds extending to right lateral trunk for bridging. Single port veraflow foam bridged from trunk into inferior wound then secured. Additional foam inserted into superior wound then bridged. Veraflow initiated at -125mmHg continuous 75cc Dakins every 3.5 hours with good seal. Procedure tolerated well without verbalized pain or need for additional pain medications ? SIGNATURE: Kaz Luz APRN.[facility] PAGER: [phone] *A review of daily goals, interventions, and plan of care with the multidisciplinary team and patient has been conducted. The patient?s concerns have been addressed and he/she agrees to proceed with today?s plan of care. OPERATIVE REPORT Observed: 12/21/2017 Status: F Source: [place] 12:18 PM [facility] REPOSITORY [facility] Medical Records Department [address] [place] [address] Operative Report 12/11/17 0900 MR#: [id number] Acct: [id number] Name: STEPHIE UGARTE Rep #: [id number] : 1945 72 From: [place] MD PCP: Elkin Wood MD Status: DIS IN Y Location: MS3 [id number] Report of Operation Date of Procedure: 12/11/17 Pre-Operative Diagnosis: bacteremia MRSA, MRSA infection at nerve stimulator site Post-Operative Diagnosis: Same Surgery/Procedure Performed:: Incision and debridement of the right hip incision, mid back incision Type of Anesthesia:: MAC Anesthesiologist: Ney Manning Special Medications: Patient is on antibiotics daptomycin per ID for MRSA bacteremia Specimen's removed: Cultures from the right hip and mid back abscesses, tissue from the right hip debridement--for aerobic/anaerobic/gram stain Estimated Blood Loss (mL): <10 cc Fluids Replaced: 400 cc Description of Procedure: Patient was brought to the operating room correct patient, procedure, site, positioning, special, was verified prior to procedure. Patient was placed in left lateral decubitus position with appropriate padding. MAC anesthesia was induced. The back and right posterior hip incisions were prepped and draped in the usual sterile fashion with Betadine. The lower midline incision as well as the right posterior hip incision was anesthetized with 1% lidocaine. [place] were removed from those areas only leaving some justina in the upper portion of the midback incision. The incision was re-incised with a 15 blade scalpel. Copious purulent material was drained/expressed from both wounds probably about 150-200 cc. These were both cultured. Both wounds were irrigated with a total of 6 L of irrigation using the pulse lavage. Able to identify at the tract between the 2 incisions and able to irrigate the tract from right hip wound to mid back with 2 liters of the 6 liters. Small amount of tissue was debrided from the right posterior hip incision cavity. The cavity size of the right hip was 10 cm in length, 7 cm in width, and 3 cm in depth; the back incision cavity was 3.5 centimeters in depth, 6.5 cm in length, 3 cm in width. The remaining tissue at the posterior hip incision and mid back incision was viable. The wounds were packed with Kerlix soaked in Betadine. Patient tolerated procedure well and was taken to the postanesthesia care unit in stable condition. - Complications none 12/11/17 1241 <Electronically signed by Santa Otoole MD> Date Santa Otoole MD CC: Tayla Brown MD; Ann-Marie Akhtar DO; Tony Dey MD; Elkin Wood MD; Logan Pandey MD; Santa Otoole MD Signed THERAPY NT Observed: 12/21/2017 Status: COMPLETED Source: [facility] 11:31 AM [facility] REPOSITORY O ID: [id number] Author: Romulo Bruno [facility] Service: Physical Therapy Author Type: Slip Mixer Type: Therapy (PT/OT/Speech/Resp) Filed: 12/21/2017 11:37 AM Note Text: Attestation signed by Khang Martinez at 12/21/2017 12:11 PM I reviewed and agree with the documentation corresponding to this therapy visit. SIGNATURE: Khang Martinez PT DATE: December 21, 2017 TIME: 12:11 PM Physical Therapy Treatment SERVICE DATE: 12/21/2017 SERVICE TIME: 1040 to 1126 ROOM: [place] [address] Recommended Discharge Disposition: Subacute/SNF Justification For Post Acute Needs: Good sitting tolerance;Living the community premorbidly;Motivated;Willing to participate;Anticipate that patient will require daily (5x/wk) skilled therapy in a post-acute facility setting at the time of acute hospital discharge Recommended Discharge Equipment: To Be Determined PT Recommendations to Nursing: OOB for Meals;Ambulate with device;Transfer to/from chair;With assist of 1 person Device: Wheeled Walker PT 6 Clicks Score: 16 Precautions/Activity Restrictions: Lines/Tubes/Drains;Fall Risk;Spine (wound vac) ASSESSMENT : Patient continues to need assist with minimal to moderate assist with bed mobility with minimal tactile and verbal cues for proper technique. Patient able to increase distance with ambulation with cues for posture, walker management, balance and forward gaze. Pt requires further skilled PT intervention during current hospital stay for appropriate activity and exercise dosing and safe progression with all mobilization to improve overall functional capacity and allow for a safe d/c. ? Patient Disposition at Start of Session: Supine in Bed;Call Nguyen in Reach Patient Disposition at End of Session: OOB in Chair;Call Nguyen in Reach Tolerated Full Session Physical Therapy Problem List: Education Deficit;Safety Deficits;Pain;Decreased Activity Tolerance;Impaired Self Care;Decreased Range Of Motion;Decreased Strength;Functional Mobility Impairment;Balance Impaired Patient /Caregiver Goals: Walk;Go To Rehab Goals for Plan of Care: Able to perform HEP with: Modified Independent Rolling with: Modified Independent Transfer supine to/from sit with: Modified Independent Transfer sit to/from stand with: Modified Independent Ambulate with: Supervision Distance: 150 Device: Wheeled Walker Ambulate up and down steps with: Contact Guard Assistance Number of steps: 1 Device: Other: See Comment (LRAD) Transfer: Mod I with LRAD Goal: Pt will ascend/descend inclined ramp with supervision assist with LRAD to simulate home going environment. Progress Toward Goals: Progressing as expected Rehab Potential: Good PLAN: Treatment Frequency (times per week): 3 Current admission Treatment Interventions: Education;Self Care / Home Management;Energy Conservation Training;Joint Mobility;Strengthening;Functional Mobility Training;Balance Training;Neuromuscular Re-education Plan of Care developed with: Patient TREATMENT INTERVENTIONS: Therapy Diagnosis: Reduced mobility-other Interventions Provided: Gait Training (92563);Therapeutic Activity (69793);Therapeutic Exercise (97397) Therapeutic Exercise (47303) Treatment Minutes: 8 1 unit Skilled Intervention(s): Patient instructed in and performed standing exercises for 10-15 reps with assist for minimal verbal cues for pacing and proper technique. Patient required rest breaks for fatigue. Educated patient in reasoning for each exercise. Reviewed seated exercise with patient. ? Therapeutic Activity (66898) Treatment Minutes: 15 1 unit Skilled Intervention(s): Instructed patient in log roll technique Instructed patient in supine to sit pushing with upper extremities to sit up and BLE Scooting to EOB with moderate assist with cues for weight shifting and advancing opposite leg forward Education with importance of functional mobility Transfer training from bed to BSC, BSC to chair with walker with assist and cues for walker management, foot placement, body positioning and balance. Extra time for lines and tube management Gait Training (13790) Treatment Minutes: 15 1 unit Skilled Intervention(s): Instruction in sit to stand technique with proper hand placement and body positioning at edge of bed/chair, Instruction in stand to sit technique with LE's touching chair/bed and reaching back for surface, Instruction in correction of gait deviations, Instruction in use of equipment, cues for sequence and pattern and walker management. Extra time for lines and tubes. Education on correct trunk alignment and forward gaze to improve gait. Patient able to correct with cues. ? Total Timed Code Treatment Minutes: 38 Total Treatment Time (minutes): 46 FUNCTIONAL G CODE: PT 6 Clicks Score: 16 (12/21/17 1040) Mobility: Walking and Moving Around Current Status (G8978): CK (12/14/17 09) Mobility: Walking and Moving Around Goal Status (G8979): CJ (12/14/17900) Based on clinical assessment and the score on the 6 Clicks Functional Assessment Tool, the G code and corresponding severity modifiers are documented above. SUBJECTIVE: Current Hospital Course: Chart reviewed and no significant medical updates relevant to therapy were noted Reason for Physical Therapy Consult : new functional deficit not expected to spontaneously improve and PT eval Patient Report: I think I have a head cold. Home Environment Patient Lives With: Self/Alone;Other: See Comment (neighbor and family nearby assists PRN) Assistance Available: PRN (neighbor and family nearby) Entry To Home: No Stairs;Ramp Number Of Stairs To Bed/Bath: 0 (1 level) Tub/Shower Type: walk in shower Laundry: 1st floor Equipment Owned: GraKwiClick Bars-Shower;Wheeled Walker;Wheelchair;Cane;Commode-Raised Prior Functional Level: Within Functional Limits;Other: See Comment Prior Functional Level Comments: Reports Ind with ADL's and IADL's, + driving, OBJECTIVE: CURRENT FUNCTIONAL STATUS: Current Functional Mobility Assist Level Additional Information Rolling Minimal Assistance Supine to Sit Moderate Assistance Sit to Supine (up in chair) Scooting Moderate Assistance (to EOB) Sit to Stand Minimal Assistance Stand to Sit Contact Guard Assistance Bed to Chair Contact Guard Assistance Bed To Chair Transfer Type: Stand Pivot Bed To Chair Transfer Equipment: Wheeled Walker Toilet/Commode Minimal Assistance Gait Minimal Assistance Gait Device: Wheeled Walker Gait Distance (feet): 5' x 2, 50' x 2 Stairs Curb Step Car Transfer General Gait Deviations: [place] decreased;Lateral sway increased;Flexed trunk posture;Narrow Base of Support Balance: Static Sitting;Dynamic Sitting;Static Standing;Dynamic Standing Static Sitting Balance: Supervision Dynamic Sitting Balance: Stand By Assistance Static Standing Balance: Contact Guard Assistance Dynamic Standing Balance: Minimal Assistance Please see discipline specific clinical documentation flowsheet for complete details for this therapy evaluation/treatment. SIGNATURE: Romulo Martinez PTA PATIENT NAME: Stephie Ugarte DATE: December 21, 2017 TIME: 11:31 AM CONSULT PROG Observed: 12/21/2017 Status: COMPLETED Source: [facility] 10:54 AM [facility] REPOSITORY O ID: [id number] Author: Valentina Ponce (Pharmacist) Service: Pharmacy Author Type: Pharmacist Type: Consult Progress Note Filed: 12/21/2017 11:00 AM Note Text: PHARMACY VANCOMYCIN DOSING NOTE Patient Name: Stephie Ugarte Admission Date: 12/12/2017 Date of Consult: 12/21/2017 Time of Consult: 10:55 AM Indication: WEB PRESSMAN infection Goal Range: 15-25 mcg/mL RECOMMENDATIONS/PLAN: Pharmacy consulted for vancomycin dosing for Stephie Ugarte, a 72 year old, female who is being treated with vancomycin for WEB PRESSMAN infection. 1. Patient is currently ordered Vancomycin 1 g IV q12h. Today is day 10 of therapy; however, patient missed 3 doses (12/18-) due to loss of IV access. IV access was re-established and vanco was restarted 12/20 AM. 2. No vancomycin level has been drawn for this dosing regimen. 3. The present dose of vancomycin is the recommended dosage for this patient at this time. Continue therapy as prescribed. 4. The next vancomycin level has been ordered for 12/22 @ 0800 (Completed) We will follow patient renal function, vancomycin levels and doses with you during the course of therapy. Additional recommendations will appear in follow up notes. If you have any questions, please contact Valentina Ponce PharmD at [phone]. Age: [age] year old Allergies: ALLERGIES Allergen Reactions - Anesthesia [Other] GI Upset Last 3 Encounter Wt Readings: Date: Wt: 12/11/2017 89 kg (196 lb 3.4 oz) 11/09/2017 80.3 kg (177 lb) 06/26/2017 82.1 kg (181 lb) Last 1 Encounter Ht Readings: Date: Ht: 12/11/2017 160 cm (5' 3) CrCl: ~90 mL/min Temp (24hrs), Av.6 ?C (97.9 ?F), Min:36.2 ?C (97.1 ?F), Max:37.8 ?C (100 ?F) - Current Temp: 36.5 ?C (97.7 ?F) Labs BUN (mg/dL) Date Value 12/21/2017 14 12/20/2017 16 12/17/2017 15 Creatinine (mg/dL) Date Value 12/21/2017 0.61 12/20/2017 0.67 12/17/2017 0.62 WBC (k/uL) Date Value 12/20/2017 8.37 12/17/2017 7.16 12/15/2017 7.87 Vancomycin Levels: Vancomycin, result (ug/mL) Date/Time Value 12/17/2017 1542 24.8 (H) 12/14/2017 1601 22.3 (H) VALENTINA PONCE PHARMACIST PROGRESS Observed: 12/21/2017 Status: COMPLETED Source: [facility] 6:53 AM [facility] REPOSITORY O ID: [id number] Author: Hitesh Molina Service: General Internal Medicine Author Type: Physician Type: Progress Notes Filed: 12/21/2017 5:42 PM Note Text: INTERNAL MEDICINE PROGRESS NOTE Patient Name: Stephie Ugarte Date of Serivce: 12/21/2017 Time: 6:53 AM PRIMARY SERVICE: [facility] DAY: # 9 BRIEF PLAN FOR THE DAY - Continue vancomycin and follow-up of blood cultures - Follow up on next vancomycin level to adjust dosing if needed per Pharmacy INTERVAL SUBJECTIVE HISTORY - 12/16 blood cultures remain negative - Yesterday, 2x blood cultures drawn off of PICC and peripheral (12/20 PM) - No events overnight. No fevers - BMP and CBC repeated x1 yesterday: stable and Cr 0.67, WBC 8.37 and stable, Hb 8.9. - BMP stable, Cr 0.61, K 4.0 and stable Briefly, 72 year old female with a PMH for HTN and chronic back pain who recently had neurostimulator placed (11/13), complicated by hardware infection and MRSA bacteremia s/p hardware removal (11/30). She had presented to the OSH ED with AMS and was treated for sepsis (11/21) due to hardware infection, culture positive for MRSA despite vancomycin and short course of daptomycin. S/P IANDD prior to transfer to [facility] for surgical management by [facility], now s/p wound vac placement and culture negative from 12/16. PHYSICAL EXAM: Patient Vitals for the past 24 hrs: BP Temp Temp src Pulse Resp SpO2 12/21/17 0539 149/53 37.8 ?C (100 ?F) Oral 82 18 95 % 12/21/17 0211 147/56 36.8 ?C (98.2 ?F) Axillary 83 18 92 % 12/20/17 2213 153/74 36.2 ?C (97.1 ?F) Axillary 77 18 97 % 12/20/17 1913 151/57 36.4 ?C (97.6 ?F) Axillary 67 18 100 % 12/20/17 1530 147/53 36.3 ?C (97.4 ?F) Axillary 71 18 99 % 12/20/17 1110 - 36.4 ?C (97.6 ?F) Oral - 20 100 % 12/20/17 0838 133/50 - - 68 - - Body mass index is 34.76 kg/m?. GENERAL: Alert, no distress, cooperative SKIN: Skin color, texture, turgor normal. No rashes or lesions., wound on back extending from paraspinal thoracic/lumbar regions down to hips continue to drain serosanguineous fluid. No evidence of new erythema or purulent drainage. OROPHARYNX: Lips, mucosa, and tongue are normal.Teeth and gums, normal. Oropharynx normal. NECK: No jugulovenous distention, No carotid bruits, Carotid pulse normal contour, Supple LUNGS: Lungs clear to auscultation. Good diaphragmatic excursion. CARDIAC: Normal S1 and S2; no rubs, murmurs, or gallops ABDOMEN: ?Abdomen soft, non-tender, BS normal, No masses or organomegaly EXTREMITIES: Extremities normal, no deformities, edema, clubbing or skin discoloration. Good capillary refill., No ulcers NEURO: ?Alert, oriented X 3, Gait normal. Non-focal. Reflexes normal and symmetric. Sensation grossly intact., Cranial nerves II-XII intact PULSES: ?2+ radial, 2+ carotid MEDICATIONS Current hospital medications: benzocaine-menthol 1 Lozenge (CEPACOL) 1 Lozenge MUCOUS MEMBRANE (TOPICAL MOUTH AND THROAT) q 2 H PRN polyethylene glycol 3350 17 g packet (MIRALAX, GLYCOLAX) 17 g ORAL/FEEDING TUBE DAILY 0.9% NaCl 10 mL 10 mL INTRAVENOUS q 12 H 0.9% NaCl 20 mL 20 mL INTRAVENOUS PRN vancomycin iv piggyback 1 g in D5W 200 mL (VANCOCIN) 1 g INTRAVENOUS q 12 HR sodium hypochlorite 0.125 % in empty bag Total Volume 960 mL topical irrigation 75 mL/hr IRRIGATION Q 3 and 1/2 HR acetaminophen 650 mg tab(s) (TYLENOL) 650 mg ORAL q 6 H PRN heparin 5,000 Units injection 5,000 Units SUBCUTANEOUS q 12 H vancomycin dosing and monitoring per pharmacy OTHER As Directed 0.9% NaCl 3-5 mL 3-5 mL INTRAVENOUS q 12 H oxyCODONE IR 5-10 mg tab(s) (ROXICODONE) 5-10 mg ORAL q 6 H PRN lisinopril 10 mg tab(s) (ZESTRIL, PRINIVIL) 10 mg ORAL DAILY ondansetron (PF) 4 mg injection (ZOFRAN) 4 mg INTRAVENOUS q 6 H PRN DATA Recent Labs 12/20/17 1129 WBC 8.37 HB 8.9* HCT 27.9* PLT 357 Recent Labs 12/20/17 1129 NA 133* K 3.8 CO2 26 BUN 16 CREAT 0.67 GLUC 97 IMAGING No new imaging at this juncture ASSESSMENT AND PLAN Briefly, 72 year old female with a PMH for HTN and chronic back pain who recently had neurostimulator placed (11/13), complicated by hardware infection and MRSA bacteremia s/p hardware removal (11/30). She had presented to the OSH ED with AMS and was treated for sepsis (11/21) due to hardware infection, culture positive for MRSA despite vancomycin and short course of daptomycin. S/P IANDD prior to transfer to [facility] for surgical management by Spine consultants, now s/p wound vac placement and culture negative from 12/16. PICC line placed due to difficulty with peripheral access. ? MRSA bacteremia, suspected to be due to spread from infected paraspinal hardware s/p removal, resolving and stable MRI spine repeated after admission demonstrating epidural abscess and match meningitis. Following cultures which have now begun to be negative since drawn on 12/16. ID consulted and agree with vancomycin dosing. Neurosurgery consulted for wound vac placement and Wound Care team following. ? - Continue attempting to draw repeat blood cultures. PICC placed on 12/19. - Vancomycin doses skipped 2100 on 12/18 and 0900 on 12/19 due to access; will receive 1.5g at 2100 on 12/19 and resumed prior dosing 12/20. - Follow up next vancomycin level ? Epidural abscess Demonstrated on MRI on admission significant for T2 - T3 epidural abscess. OSH MRI on 12/11 had confirmed anterior T2-5 and T8-11 posterior epidural spaces with irregular enhancement and potential edema at T3- 4. S/P vancomycin and wound vac placement. Blood cutulres?from 12/16.negative x 3 days ? - Continue with vancomycin, target trough 15 - 25 - PICC line received 12/19. ? Chronic Medical issues - HTN: stable, continue lisinopril 10mg daily - Right lower extremity (ankle) ulcer, Right ankle pressure injury, Stage 1, POA , stable since admission. Undergoing daily dressing changes and/or irrigation as needed. Healing well upon visual examination. Medication and Non-Pharmacologic VTE Prophylaxis/Anticoagulants Anticoagulant AND Antiplatelet Medications Start Dose Route Frequency Ordered Stop 12/14/17 1600 heparin 5,000 Units injection (Medical At Risk ) 5,000 Units SUBCUTANEOUS EVERY 12 HOURS 12/14/17 1534 -- 12/14/17 1545 pneumatic compression stockings (ks,oh) 12/12/17 1815 pneumatic compression stockings (ks,oh) 12/12/17 0345 vte non-pharmacologic prophylaxis - none indicated (ks,oh) 12/12/17 0345 activity - mobilize patient (ks,mo) VTE Prophylaxis: VTE prophylaxis appropriate SIGNATURE: Phillip Fritz MD PATIENT NAME: Stephie Ugarte DATE: December 21, 2017 TIME: 6:53 AM PAGER/CONTACT #: [phone] [facility] STAFF PHYSICIAN NOTE OF PERSONAL INVOLVEMENT IN CARE I have reviewed the progress note obtained and documented by the resident and I personally participated in the hall components. I have discussed the case and management of the patient's care. The following comments revise or confirm relevant hall components of their note. IMPRESSION: This is a 72 year old female with chronic back pain s/p spinal cord stimulator placement 11/13/2017 complicated with MRSA bacteremia s/p stimulator removal 11/30 who presents as a transfer with persistent MRSA bacteremia with out sepsis ??Has history of bilateral TKA and RODGER ? Found to have T2/3 epidural abscess on MRI with ? cord compression and pachymeningitis Seen by NSGY no surgical intervention at this time suggested wound vac placement and continue antibiotics Surface echocardiogram w/o evidence of IE Having chills, sore throat and runny nose today Throat w/o exudates Lungs clear No leucocytosis blood culture form 12/16 negative blood cultures 12/20 with NGTD PLAN: resp viral panel CXR continue vancomycin follow blood cultures Hitesh Molina MD December 21, 2017 5:41 PM BASIC METABOLIC PANL Collected: 12/21/2017 Status: F Source: [facility] 5:28 AM [facility] REPOSITORY TYPE CODE TESTS RESULT OUT OF REFERENCE UNITS RANGE LAB GLU 74-99 mg/dL Glucose 96 Result Comment: The [place] Diabetes Association (ADA) provides guidance for cutoff values for fasting glucose and random glucose. The ADA defines fasting as no caloric intake for at least 8 hours. Fas ting plasma glucose results between 100 to 125 mg/dL indicate increased risk for diabetes (prediabetes). Fasting plasma glucose results greater than or equal to 126 mg/dL meet the criteria for diagnosis of diabetes. In the absence of unequivocal hyperglycemia, results should be confirmed by repeat testing. In a patient with classic symptoms of hyperglycemia or hyperglycemic crisis, random plasma glucose results greater than or equal to 200 mg/dL meet the criteria for diagnosis of diabetes. Reference: Standards of Medical Care in Diabetes 2016, [place] [employer]. Diabetes Care. 2016.39(Suppl 1). LAB BUN 7-21 mg/dL BUN 14 LAB CRET 0.58-0.96 mg/dL Creatinine 0.61 LAB NA 136-144 mmol/L Sodium Low 132 LAB K 3.7-5.1 mmol/L Potassium 4.0 LAB CL 97-105 mmol/L Chloride Low 92 LAB CO2 22-30 mmol/L CO2 24 LAB AGAP 9-18 mmol/L Anion Gap 16 LAB CA 8.5-10.2 mg/dL Calcium, Total 9.1 LAB GFRAA eGFR- Amer. >60 LAB GFRNAA . eGFR-All Other Races >60 Result Comment: eGFR (Estimated GFR) Units of measure: mL/min/1.73 meters squared eGFR is derived from the reexpressed MDRD Study equation using the following parameters: serum creatinine, age, gender and race. The creatinine assay has been calibrated to be traceable to IDMS. An eGFR <60 mL/min/1.73m2 for >3 months is consistent with chronic kidney disease. Refer to KDOQI guidelines for clinical interpretation. In patients with unstable renal function, e.g. those with acute kidney injury, the eGFR may not accurately reflect actual GFR. Performed By: #### BMP #### [facility] [employer] [address] [place], [place] [address] Observed: 12/20/2017 Status: F Source: [facility] BLOOD CULTURE 4:33 PM [facility] REPOSITORY Culture Result - No growth 5 days Performed By: #### BLCUL #### [facility] [employer] [address] [place], [place] [address] Observed: 12/20/2017 Status: F Source: [facility] BLOOD CULTURE 4:21 PM [facility] REPOSITORY Culture Result - No growth 5 days Performed By: #### BLCUL #### [facility] [employer] [address] [place], [place] [address] CBC AND DIFFERENTIAL Collected: 12/20/2017 Status: F Source: [facility] 11:29 AM [facility] REPOSITORY TYPE CODE TESTS RESULT OUT OF REFERENCE UNITS RANGE LAB WBC 3.70-11.00 k/uL WBC 8.37 LAB RBC 3.90-5.20 m/uL Low RBC 3.27 LAB HGB 11.5-15.5 g/dL Low Hemoglobin 8.9 LAB HCT 36.0-46.0 % Low Hematocrit 27.9 LAB MCV 80.0-100.0 fL MCV 85.3 LAB MCH 26.0-34.0 pG MCH 27.2 LAB MCHC 30.5-36.0 g/dL MCHC 31.9 LAB RDWCV 11.5-15.0 % RDW-CV 14.7 LAB PLTCT 150-400 k/uL Platelet Count 357 LAB MPV 9.0-12.7 fL Low MPV 8.5 LAB ANEUT % Neut% 62.6 LAB AANEUT 1.45-7.50 k/uL Abs Neut 5.24 LAB ALYMP % Lymph% 19.6 LAB AALYMP 1.00-4.00 k/uL Abs Lymph 1.64 LAB AMONO % Mchenry% 10.9 LAB AAMONO <0.87 k/uL Abs [place]hen[place] High 0.91 LAB AEOS % Eosin% 6.2 LAB AAEOS <0.46 k/uL Abs High Eosin 0.52 LAB ABASO % Baso% 0.7 LAB AABASO <0.11 k/uL Abs Baso 0.06 LAB AUNRBC 0 /100 WBC NRBCs 0.0 LAB ABNRBC <0.01 k/uL Absolute nRBC <0.01 LAB DTYP DTYPE Auto Diff Performed By: #### CBCDIF, BMP #### [facility] [address] [place], [place] [address] BASIC METABOLIC PANL Collected: 12/20/2017 Status: F Source: [facility] 11:29 AM [facility] REPOSITORY TYPE CODE TESTS RESULT OUT OF REFERENCE UNITS RANGE LAB GLU 74-99 mg/dL Glucose 97 Result Comment: The [place] Diabetes Association (ADA) provides guidance for cutoff values for fasting glucose and random glucose. The ADA defines fasting as no caloric intake for at least 8 hours. Fas ting plasma glucose results between 100 to 125 mg/dL indicate increased risk for diabetes (prediabetes). Fasting plasma glucose results greater than or equal to 126 mg/dL meet the criteria for diagnosis of diabetes. In the absence of unequivocal hyperglycemia, results should be confirmed by repeat testing. In a patient with classic symptoms of hyperglycemia or hyperglycemic crisis, random plasma glucose results greater than or equal to 200 mg/dL meet the criteria for diagnosis of diabetes. Reference: Standards of Medical Care in Diabetes 2016, [place] [employer]. Diabetes Care. 2016.39(Suppl 1). LAB BUN 7-21 mg/dL BUN 16 LAB CRET 0.58-0.96 mg/dL Creatinine 0.67 LAB NA 136-144 mmol/L Sodium Low 133 LAB K 3.7-5.1 mmol/L Potassium 3.8 LAB CL 97-105 mmol/L Chloride Low 95 LAB CO2 22-30 mmol/L CO2 26 LAB AGAP 9-18 mmol/L Anion Gap 12 LAB CA 8.5-10.2 mg/dL Calcium, Total 9.0 LAB GFRAA eGFR- Amer. >60 LAB GFRNAA . eGFR-All Other Races >60 Result Comment: eGFR (Estimated GFR) Units of measure: mL/min/1.73 meters squared eGFR is derived from the reexpressed MDRD Study equation using the following parameters: serum creatinine, age, gender and race. The creatinine assay has been calibrated to be traceable to IDMS. An eGFR <60 mL/min/1.73m2 for >3 months is consistent with chronic kidney disease. Refer to KDOQI guidelines for clinical interpretation. In patients with unstable renal function, e.g. those with acute kidney injury, the eGFR may not accurately reflect actual GFR. Performed By: #### CBCDIF, BMP #### [facility] [address] [address] PROGRESS Observed: 12/20/2017 Status: COMPLETED Source: [place] 7:[address] [facility] REPOSITORY HNO ID: [id number] Author: Hitesh Molina Service: General Internal Medicine Author Type: Physician Type: Progress Notes Filed: 12/20/2017 12:19 PM Note Text: INTERNAL MEDICINE PROGRESS NOTE Patient Name: Stephie Ugarte Date of Serivce: 12/20/2017 Time: 7:15 AM PRIMARY SERVICE: [place] Arpan [facility] DAY: # 8 BRIEF PLAN FOR THE DAY - Continue IV antibiotics - Follow up culture results - Re-dose vancomycin today according to trough levels when available. - Follow up BMP and CBC today now that PICC is placed - Trial 1 mg melatonin at bedtime tonight given mild insomnia INTERVAL SUBJECTIVE HISTORY - No events overnight. Follow up on BMP tomorrow. - 12/16 cultures negative x4 days Briefly, 72 year old female with a PMH for HTN and chronic back pain who recently had neurostimulator placed (11/13), complicated by hardware infection and MRSA bacteremia s/p hardware removal (11/30). She had presented to the [facility] ED with AMS and was treated for sepsis (11/21) due to hardware infection, culture positive for MRSA despite vancomycin and short course of daptomycin. S/P IANDD prior to transfer to [facility] for surgical management by Spine consultants, now s/p wound vac placement and culture negative from 12/16. PHYSICAL EXAM: Patient Vitals for the past 24 hrs: BP Temp Temp src Pulse Resp SpO2 12/20/17 0606 160/58 36.6 ?C (97.8 ?F) Oral 78 18 95 % 12/20/17 0222 155/56 36.3 ?C (97.3 ?F) Oral 75 18 96 % 12/19/17 2200 153/58 36.4 ?C (97.6 ?F) Oral 75 18 100 % 12/19/17 1904 151/54 36.8 ?C (98.2 ?F) Oral 77 20 95 % 12/19/17 1427 146/63 36.6 ?C (97.8 ?F) Oral 82 18 97 % 12/19/17 0935 (!) 134/43 36.7 ?C (98.1 ?F) Oral 78 16 95 % Body mass index is 34.76 kg/m?. GENERAL: Alert, no distress, cooperative SKIN: Skin color, texture, turgor normal. No rashes or lesions., wound on back extending from paraspinal thoracic/lumbar regions down to hips continue to drain serosanguineous fluid. No evidence of new erythema or purulent drainage. OROPHARYNX: Lips, mucosa, and tongue are normal.Teeth and gums, normal. Oropharynx normal. NECK: No jugulovenous distention, No carotid bruits, Carotid pulse normal contour, Supple LUNGS: Lungs clear to auscultation. Good diaphragmatic excursion. CARDIAC: Normal S1 and S2; no rubs, murmurs, or gallops ABDOMEN: Abdomen soft, non-tender, BS normal, No masses or organomegaly EXTREMITIES: Extremities normal, no deformities, edema, clubbing or skin discoloration. Good capillary refill., No ulcers NEURO: Alert, oriented X 3, Gait normal. Non-focal. Reflexes normal and symmetric. Sensation grossly intact., Cranial nerves II-XII intact PULSES: 2+ radial, 2+ carotid MEDICATIONS Current hospital medications: polyethylene glycol 3350 17 g packet (MIRALAX, GLYCOLAX) 17 g ORAL/FEEDING TUBE DAILY 0.9% NaCl 10 mL 10 mL INTRAVENOUS q 12 H 0.9% NaCl 20 mL 20 mL INTRAVENOUS PRN vancomycin iv piggyback 1 g in D5W 200 mL (VANCOCIN) 1 g INTRAVENOUS q 12 HR sodium hypochlorite 0.125 % in empty bag Total Volume 960 mL topical irrigation 75 mL/hr IRRIGATION Q 3 and 1/2 HR acetaminophen 650 mg tab(s) (TYLENOL) 650 mg ORAL q 6 H PRN heparin 5,000 Units injection 5,000 Units SUBCUTANEOUS q 12 H vancomycin dosing and monitoring per pharmacy OTHER As Directed 0.9% NaCl 3-5 mL 3-5 mL INTRAVENOUS q 12 H oxyCODONE IR 5-10 mg tab(s) (ROXICODONE) 5-10 mg ORAL q 6 H PRN lisinopril 10 mg tab(s) (ZESTRIL, PRINIVIL) 10 mg ORAL DAILY ondansetron (PF) 4 mg injection (ZOFRAN) 4 mg INTRAVENOUS q 6 H PRN DATA Recent Labs 12/17/17 1614 WBC 7.16 HB 9.7* HCT 29.8* PLT 471* Recent Labs 12/17/17 1614 NA 134* K 4.0 CO2 24 BUN 15 CREAT 0.62 GLUC 113* IMAGING Reviewed ASSESSMENT AND PLAN Briefly, 72 year old female with a PMH for HTN and chronic back pain who recently had neurostimulator placed (11/13), complicated by hardware infection and MRSA bacteremia s/p hardware removal (11/30). She had presented to the OSH ED with AMS and was treated for sepsis (11/21) due to hardware infection, culture positive for MRSA despite vancomycin and short course of daptomycin. S/P IANDD prior to transfer to [facility] for surgical management by Spine consultants, now s/p wound vac placement and culture negative from 12/16. PICC line placed due to difficulty with peripheral access. MRSA bacteremia, suspected to be due to spread from infected paraspinal hardware s/p removal, resolving and stable MRI spine repeated after admission demonstrating epidural abscess and match meningitis. Following cultures which have now begun to be negative since drawn on 12/16. ID consulted and agree with vancomycin dosing. Neurosurgery consulted for wound vac placement and Wound Care team following. ? - Continue attempting to draw repeat blood cultures. PICC placed on 12/19. - Vancomycin doses skipped 2100 on 12/18 and 0900 on 12/19 due to access; will receive 1.5g at 2100 on 12/19 and resumed prior dosing 12/20. - Follow up next vancomycin trough Epidural abscess Demonstrated on MRI on admission significant for T2 - T3 epidural abscess. OSH MRI on 12/11 had confirmed anterior T2-5 and T8-11 posterior epidural spaces with irregular enhancement and potential edema at T3- 4. S/P vancomycin and wound vac placement. Blood cutulres from 12/16.negative x 3 days ? - Continue with vancomycin, target trough 15 - 25 - PICC line received 12/19. ? Chronic Medical issues - HTN: stable, continue lisinopril 10mg daily Medication and Non-Pharmacologic VTE Prophylaxis/Anticoagulants Anticoagulant AND Antiplatelet Medications Start Dose Route Frequency Ordered Stop 12/14/17 1600 heparin 5,000 Units injection (Medical At Risk ) 5,000 Units SUBCUTANEOUS EVERY 12 HOURS 12/14/17 1534 -- 12/14/17 1545 pneumatic compression stockings (ks,oh) 12/12/17 1815 pneumatic compression stockings (ks,oh) 12/12/17 0345 vte non-pharmacologic prophylaxis - none indicated (ks,mo) 12/12/17 0345 activity - mobilize patient (ks,mo) VTE Prophylaxis: VTE prophylaxis appropriate SIGNATURE: Phillip Fritz MD PATIENT NAME: Stephie Ugarte DATE: December 20, 2017 TIME: 7:15 AM PAGER/CONTACT #: [phone] STAFF ADDENDUM - Jarad Arpan TEAM Patient seen and evaluated this a.m.. Hall elements of history and physical examination of the patient were confirmed. The assessment and plan were formulated and discussed with the team on Rounds. I reviewed the resident's note, examined the patient and agree with the documented findings and plan of care. Doing well afebrile pain controlled Picc line placed Blood culture from 12/16 remains with no growth Hitesh Molina MD December 20, 2017 12:17 PM PROCEDURE Observed: 12/19/2017 Status: COMPLETED Source: [place] 4:56 PM [facility] REPOSITORY HNO ID: [id number] Author: Phylicia (Rn) JINNY Powell Service: PICC Team Author Type: Registered Nurse Type: Procedures Filed: 12/19/2017 5:15 PM Note Text: PICC NURSE INSERTION NOTE DATE OF PROCEDURE: December 19, 2017 TIME OF PROCEDURE: 1656 ORDERING PHYSICIAN: Michelle Potter INFORMED CONSENT: Obtained per hospital policy. INDICATION FOR LINE PLACEMENT: Multiple IV attempts and restarts CONDITION OF LINE PLACEMENT: Sterile PRIMARY PROCEDURALIST: Leslie Leo RN SALES SUPPORT COORDINATOR: Phylicia Powell RN PRE-PROCEDURE REVIEW ALLERGIES Allergen Reactions - Anesthesia [Other] GI Upset Known History of Venous Thrombosis: No Known History of Permanent Pacemaker or Automated Implanted Cardiac Device: No Previous Breast Surgery of Lymph Node Dissection: No History of Renal Disease with Arterio-Venous Fistula in Place or Planned: No Ultrasound Assessment Complete: Yes PROCEDURE NARRATIVE SAFE PRACTICE Hand Hygiene per Hospital Policy: Yes Skin Preparation Unit Dose Applicator Used: Chloraprep (CHG + alcohol), allowed to dry. Procedure Surface Cleansed with Antimicrobial Wipes: Yes Barriers Used by Proceduralist and all Assisting Personnel: Yes UNIVERSAL PROTOCOL / SAFETY CHECKLIST Procedure to be performed: PICC Sign in Communication: Completed Time Out: Team Confirms the Correct Patient, Correct Procedure, Correct Site and Site Marking, Correct Position (if applicable), Prep and Dry Time (if applicable). Time: 1657 Affirmation of Time Out: YES Sign Out Discussion: Completed Phylicia Powell RN CATHETER PLACEMENT Brand: bard Lot: [id number] Number of Lumens: 1 Type of PICC: Power Injectable PICC Lumen Size: 4 Austrian PLACEMENT TECHNIQUE Lidocaine: Yes. Strength: 1% Volume 3 Modified Seldinger Technique Used to Place Line via the Right Brachial Ultrasound Guidance: Yes Number of Attempts at Insertion: 1 Ensured control of guidewire during all aspects of the procedure: Yes Accounted for entire guidewire upon removal: Yes Internal Length: 39 cm External Length: 0 cm Trim Length: 39 cm Mid-Arm Circumference Above Insertion Site: 40 centimeters Post Insertion Pain Level Related to Procedure: 0 Action Taken to Address Pain: RN to monitor Verified Placement: Blood return, Ultrasound and Tip location system or device indicates the tip is located in the SVC/CAJ. Line was Flushed with 20 cc normal saline Line Secured with: Securement device Sterile Dressing Applied and Dated: Yes Sterile Caps on all Ports Prior to Leaving Procedure Area: Yes SPECIMENS: None COMPLICATIONS: None Patient Education Materials: Given to patient The [facility] Central Line Insertion checklist, attached to the Central Line-Associated Bloodstream Infection Prevention Policy, was utilized during this procedure. QUESTIONS or PROBLEMS: Page [phone] SIGNATURE: Phylicia Powell RN PATIENT NAME: Stephie Ugarte DATE: December 19, 2017 TIME: 4:57 PM PAGER/CONTACT PHONE: [phone] PT ED Observed: 12/19/2017 Status: COMPLETED Source: [place] 4:55 PM [facility] REPOSITORY HNO ID: [id number] Author: Phylicia Fitzpatrick) JINNY Powell Service: PICC Team Author Type: Registered Nurse Type: Patient Education Filed: 12/19/2017 4:56 PM Note Text: PATIENT EDUCATION TOPIC: PROCEDURE / SURGERY: Procedure/Surgery: PICC PATIENT NAME: Stephie Ugarte PATIENT LOCATION: [address] [place] [address] READINESS TO LEARN COGNITIVE ABILITY: Alert and oriented MOTIVATION TO LEARN: Interested FAMILY SUPPORT: Unable to assess - Family not present INSTRUCTION PROVIDED TO: Patient PATIENT LEARNS BEST BY: Multiple Methods FACTORS AFFECTING LEARNING: None PHYSICAL LIMITATIONS AFFECTING LEARNING: None LEARNING RESPONSE DIAGNOSIS: ADULT: PICC PATIENT/FAMILY RESPONSE: Information received as demonstrated by interest and questions METHOD OF INSTRUCTION: Individual instruction FOLLOW-UP PLAN: Patient instructed to call with any further issues INSTRUCTIONAL AIDS USED: Picc Line Book SUPPLEMENTAL MATERIAL PROVIDED TO PATIENT: None REFERRAL (RECOMMENDATION): None Electronically Signed By: Phylicia Powell RN ALLIED HEALTH Observed: 12/19/2017 Status: COMPLETED Source: [facility] 4:40 PM [facility] REPOSITORY HNO ID: [id number] Author: Moises Frost (Chaplain) Service: Spiritual Care Author Type: Back Up Worker Type: Allied Health Filed: 12/19/2017 4:43 PM Note Text: SPIRITUALCARE Spiritual Care Visit- Brief Note Name: Stephie Ugarte Date: December 19, 2017 Notes: The premium service representative responded to the patient, prayed with him, printed Apostles creed as requested and submitted his request for holy communion to the [facility] table against tomorrow 12/20/17 Back Up Worker Signature: MOISES FROST, [place] Manager Business Information To contact the Spiritual Care Department: Please call [phone] or Page the On-Call Back Up Worker at pager [phone] Thank you for the opportunity to be of service. This is an electronically created document. IF PRINTED, PLEASE DO NOT REMOVE FROM THE CHART OR MODIFY PRINTED COPY. PROGRESS Observed: 12/19/2017 Status: COMPLETED Source: [facility] 12:[address] [facility] [place] REPOSITORY O ID: [id number] Author: Hitesh Molina Service: General Internal Medicine Author Type: Physician Type: Progress Notes Filed: 12/19/2017 1:45 PM Note Text: INTERNAL MEDICINE PROGRESS NOTE Patient Name: Stephie Ugarte Date of Serivce: December 19, 2017 Time: 12:48 PM PRIMARY SERVICE: [facility] DAY: # 7 BRIEF PLAN FOR THE DAY - CRP from is 2.5, downtrending from 5.9 om - no IV access, now that blood cultures are NG x 3 days ID is okay to put in PICC. Confirmed with PICC team that they will be by today. Okay to miss 1 dose of vanc given high troughs, will confirm with pharmacy if she needs higher dose given missed ones INTERVAL SUBJECTIVE HISTORY - Blood cultures negative NGTD x3! from 12/16 blood culture draw. 12/13 and 12/12 positive for MRSA. - Continued on IV vancomycin - unable to get new labs given lack of IV access and in ability to draw blood PHYSICAL EXAM: Patient Vitals for the past 24 hrs: 12/18/17 2200 12/19/17 0200 12/19/17 0600 12/19/17 0935 BP: 155/61 (!) 145/48 (!) 131/39 (!) 134/43 Pulse: 78 81 75 78 Resp: Temp: 36.5 ?C (97.7 ?F) 36.9 ?C (98.5 ?F) 36.5 ?C (97.7 ?F) 36.7 ?C (98.1 ?F) TempSrc: Oral Oral Oral Oral SpO2: 98% 94% 97% 95% Weight: 89 kg (196 lb 3.4 oz) Height: Body mass index is 34.76 kg/m?. GENERAL: Alert, no distress, cooperative SKIN: Skin color, texture, turgor normal. No rashes or lesions., wound on back extending from paraspinal thoracic/lumbar regions down to hips continue to drain serosanguineous fluid. No evidence of new erythema or purulent drainage. OROPHARYNX: Lips, mucosa, and tongue are normal.Teeth and gums, normal. Oropharynx normal. NECK: No jugulovenous distention, No carotid bruits, Carotid pulse normal contour, Supple LUNGS: Lungs clear to auscultation. Good diaphragmatic excursion. CARDIAC: Normal S1 and S2; no rubs, murmurs, or gallops ABDOMEN: Abdomen soft, non-tender, BS normal, No masses or organomegaly EXTREMITIES: Extremities normal, no deformities, edema, clubbing or skin discoloration. Good capillary refill., No ulcers NEURO: Alert, oriented X 3, Gait normal. Non-focal. Reflexes normal and symmetric. Sensation grossly intact., Cranial nerves II-XII intact PULSES: 2+ radial, 2+ carotid MEDICATIONS Current hospital medications: polyethylene glycol 3350 17 g packet (MIRALAX, GLYCOLAX) 17 g ORAL/FEEDING TUBE DAILY 0.9% NaCl 10 mL 10 mL INTRAVENOUS q 12 H 0.9% NaCl 20 mL 20 mL INTRAVENOUS PRN sodium hypochlorite 0.125 % in empty bag Total Volume 960 mL topical irrigation 75 mL/hr IRRIGATION Q 3 and 1/2 HR vancomycin iv piggyback 1 g in D5W 200 mL (VANCOCIN) 1 g INTRAVENOUS q 12 HR acetaminophen 650 mg tab(s) (TYLENOL) 650 mg ORAL q 6 H PRN heparin 5,000 Units injection 5,000 Units SUBCUTANEOUS q 12 H vancomycin dosing and monitoring per pharmacy OTHER As Directed 0.9% NaCl 3-5 mL 3-5 mL INTRAVENOUS q 12 H oxyCODONE IR 5-10 mg tab(s) (ROXICODONE) 5-10 mg ORAL q 6 H PRN lisinopril 10 mg tab(s) (ZESTRIL, PRINIVIL) 10 mg ORAL DAILY ondansetron (PF) 4 mg injection (ZOFRAN) 4 mg INTRAVENOUS q 6 H PRN DATA Recent Labs 12/17/17 1614 WBC 7.16 HB 9.7* HCT 29.8* PLT 471* Recent Labs 12/17/17 1614 12/17/17 0650 NA 134* 130* K 4.0 4.0 CO2 24 22 BUN 15 13 CREAT 0.62 0.59 GLUC 113* 90 IMAGING ASSESSMENT AND PLAN Briefly, 72 year old female with a PMH for HTN and chronic back pain who recently had neurostimulator placed near the thoracic spine (11/13), complicated by hardware infection and MRSA bacteremia s/p hardware removal (11/30). She had presented to the OSH ED with AMS and was treated for sepsis (11/21). ? Hardware was cultured, MRSA positive. Vancomycin given and MRSA persisted in blood cultures. Briefly on daptomycin, and seemed to improve by 12/02 (suspected to be due to bactericidal effect), but with persistently positive blood cultures despite antimicrobial therapy. MRI completed demonstrating new enhancement in thoracic epidural spaces concerning for infection, and patient was transferred to [facility], after IANDD cleanout, due to potential need for Spine Surgery specialists. ID and Spine specialties consulted for recommendations and now on vancomycin. S/P wound vac placement and undergoing blood culture monitoring, now negative for x3 days. MRSA bacteremia, suspected to be due to spread from infected paraspinal hardware s/p removal, resolving and stable ? MRI spine repeated after admission demonstrating epidural abscess and match meningitis. Following cultures which have now begun to be negative since drawn on 12/16. ? - ID consulted: continue vancomycin for the time being - Neurosurgery consulted: wound vac placement and close Wound Care monitoring. - Trying to get repeat blood cultures but unable to get blood for this or any labs - PICC line today as blood cultures negative for 72 hrs? Epidural abscess ? Demonstrated on MRI on admission significant for T2 - T3 epidural abscess. OSH MRI on 12/11: Abnormal enhancement of the anterior epidural space at T2-5 and posterior epidural space T8-11 consistent with inflammatory or infectious process. Irregular enhancement of the anterior surface of the thoracic spinal cord at T2-4 may represent infectious process. Signal abnormality within spinal cord at T3-4 suggesting edema ? - Continue with vancomycin, target trough 15 - 25 - Blood from 12/16.negative x 3 days -PICC line today ? Chronic Medical issues - HTN: stable, continue lisinopril 10mg daily Medication and Non-Pharmacologic VTE Prophylaxis/Anticoagulants Anticoagulant AND Antiplatelet Medications Start Dose Route Frequency Ordered Stop 12/14/17 1600 heparin 5,000 Units injection (Medical At Risk ) 5,000 Units SUBCUTANEOUS EVERY 12 HOURS 12/14/17 1534 -- 12/14/17 1545 pneumatic compression stockings (ks,oh) 12/12/17 1815 pneumatic compression stockings (ks,mo) 12/12/17 0345 vte non-pharmacologic prophylaxis - none indicated (ks,mo) 12/12/17 0345 activity - mobilize patient (ks,mo) VTE Prophylaxis: VTE prophylaxis appropriate SIGNATURE: Michelle Potter DO PATIENT NAME: Stephie Ugarte DATE: December 19, 2017 TIME: 12:46 PM PAGER/CONTACT #: [phone] IM STAFF ADDENDUM -Jarad Antony TEAM Patient seen and evaluated this a.m.. Hall elements of history and physical examination of the patient were confirmed. The assessment and plan were formulated and discussed with the team on Rounds. I reviewed the resident's note, examined the patient and agree with the documented findings and plan of care. Hitesh Molina MD December 19, 2017 1:44 PM PROGRESS Observed: 12/19/2017 Status: COMPLETED Source: [place] 1:58 AM [facility] REPOSITORY HNO ID: [id number] Author: Downtime Note Service: (none) Author Type: (none) Type: Progress Notes Filed: 12/19/2017 1:59 AM Note Text: Epic Scheduled Downtime: 12/19/2017 12:00:01 AM to 12/19/2017 1:54:00 AM THERAPY NT Observed: 12/18/2017 Status: COMPLETED Source: [place] 4:54 PM [facility] REPOSITORY HNO ID: [id number] [facility]: [facility] Service: Physical Therapy Author Type: Slip Mixer Type: Therapy (PT/OT/Speech/Resp) Filed: 12/18/2017 5:00 PM Note Text: Attestation signed by Samra RodriguezPt) Rachel at 12/21/2017 7:54 AM I reviewed and agree with the documentation corresponding to this therapy visit. SIGNATURE: Samra Ramos PT DATE: December 21, 2017 TIME: 7:54 AM Physical Therapy Treatment SERVICE DATE: 12/18/2017 SERVICE TIME: 1553 to 1631 ROOM: [place] [address] Recommended Discharge Disposition: Subacute/SNF Justification For Post Acute Needs: Good sitting tolerance;Living the community premorbidly;Motivated;Willing to participate;Anticipate that patient will require daily (5x/wk) skilled therapy in a post-acute facility setting at the time of acute hospital discharge Recommended Discharge Equipment: To Be Determined PT Recommendations to Nursing: OOB for Meals;Ambulate with device;Transfer to/from chair;With assist of 1 person Device: Wheeled Walker PT 6 Clicks Score: 16 Precautions/Activity Restrictions: Lines/Tubes/Drains;Fall Risk;Spine (wound vac) ASSESSMENT : Patient able to increase distance and trials with ambulation with minimal assist with minimal tactile and verbal cues for proper technique. Pt requires further skilled PT intervention during current hospital stay for appropriate activity and exercise dosing and safe progression with all mobilization to improve overall functional capacity and allow for a safe d/c. Patient Disposition at Start of Session: Supine in Bed;Call Nguyen in Reach Patient Disposition at End of Session: OOB in Chair;Call Nguyen in Reach (nursing aware) Tolerated Full Session Physical Therapy Problem List: Education Deficit;Safety Deficits;Pain;Decreased Activity Tolerance;Impaired Self Care;Decreased Range Of Motion;Decreased Strength;Functional Mobility Impairment;Balance Impaired Patient /Caregiver Goals: Walk;Go To Rehab Goals for Plan of Care: Able to perform HEP with: Modified Independent Rolling with: Modified Independent Transfer supine to/from sit with: Modified Independent Transfer sit to/from stand with: Modified Independent Ambulate with: Supervision Distance: 150 Device: Wheeled Walker Ambulate up and down steps with: Contact Guard Assistance Number of steps: 1 Device: Other: See Comment (LRAD) Transfer: Mod I with LRAD Goal: Pt will ascend/descend inclined ramp with supervision assist with LRAD to simulate home going environment. Progress Toward Goals: Progressing as expected Rehab Potential: Good PLAN: Treatment Frequency (times per week): 3 Current admission Treatment Interventions: Education;Self Care / Home Management;Energy Conservation Training;Joint Mobility;Strengthening;Functional Mobility Training;Balance Training;Neuromuscular Re-education Plan of Care developed with: Patient TREATMENT INTERVENTIONS: Therapy Diagnosis: Reduced mobility-other Interventions Provided: Gait Training (08168);Therapeutic Activity (74049);Therapeutic Exercise (23215) Therapeutic Exercise (82191) Treatment Minutes: 8 1 unit Skilled Intervention(s): Patient instructed in and performed seated exercises for 15- 20 reps with assist for minimal verbal cues for pacing and proper technique. Patient required rest breaks for fatigue. Educated patient in reasoning for each exercise and to perform 2 x times per day. Therapeutic Activity (50133) Treatment Minutes: 15 1 unit Skilled Intervention(s): Instructed patient in log roll technique Instructed patient in supine to sit pushing with upper extremities to sit up Scooting to EOB with moderate assist with cues for weight shifting and advancing opposite leg forward Education with importance of functional mobility Transfer training from bed to BSC, BSC to chair, chair to BSC with walker with assist and cues for walker management, foot placement, body positioning and balance. Extra time for lines and tube management. Gait Training (80514) Treatment Minutes: 15 1 unit Skilled Intervention(s): Instruction in sit to stand technique with proper hand placement and body positioning at edge of bed/chair, Instruction in stand to sit technique with LE's touching chair/bed and reaching back for surface, Instruction in correction of gait deviations, Instruction in use of equipment, cues for sequence and pattern and walker management. Extra time for lines and tubes. Total Timed Code Treatment Minutes: 38 Total Treatment Time (minutes): 38 FUNCTIONAL G CODE: PT 6 Clicks Score: 16 (12/18/17 0983) Mobility: Walking and Moving Around Current Status (G8978): CK (12/14/17 09) Mobility: Walking and Moving Around Goal Status (G8979): CJ (12/14/17900) Based on clinical assessment and the score on the 6 Clicks Functional Assessment Tool, the G code and corresponding severity modifiers are documented above. SUBJECTIVE: Current Hospital Course: Chart reviewed and no significant medical updates relevant to therapy were noted Reason for Physical Therapy Consult : new functional deficit not expected to spontaneously improve and PT eval Patient Report: Patient stated sometimes gets shaky ( legs) but it goes away. Home Environment Patient Lives With: Self/Alone;Other: See Comment (neighbor and family nearby assists PRN) Assistance Available: PRN (neighbor and family nearby) Entry To Home: No Stairs;Ramp Number Of Stairs To Bed/Bath: 0 (1 level) Tub/Shower Type: walk in shower Laundry: 1st floor Equipment Owned: Grab Bars-Shower;Wheeled Walker;Wheelchair;Cane;Commode-Raised Prior Functional Level: Within Functional Limits;Other: See Comment Prior Functional Level Comments: Reports Ind with ADL's and IADL's, + driving, OBJECTIVE: CURRENT FUNCTIONAL STATUS: Current Functional Mobility Assist Level Additional Information Rolling Minimal Assistance Supine to Sit Moderate Assistance Sit to Supine (up in chair) Scooting Moderate Assistance (to EOB) Sit to Stand Minimal Assistance Stand to Sit Minimal Assistance Bed to Chair Minimal Assistance Bed To Chair Transfer Type: Stand Pivot Bed To Chair Transfer Equipment: Wheeled Walker Toilet/Commode Minimal Assistance (for 2 trials) Gait Minimal Assistance Gait Device: Wheeled Walker Gait Distance (feet): 5' x 3, 35', 45' Stairs Curb Step Car Transfer General Gait Deviations: [place] decreased;Lateral sway increased;Step length decreased;Wide base of support;Flexed trunk posture Balance: Static Sitting;Dynamic Sitting;Static Standing;Dynamic Standing Static Sitting Balance: Supervision Dynamic Sitting Balance: Stand By Assistance Static Standing Balance: Contact Guard Assistance Dynamic Standing Balance: Minimal Assistance Please see discipline specific clinical documentation flowsheet for complete details for this therapy evaluation/treatment. SIGNATURE: Romulo Martinez PTA PATIENT NAME: Stephie Ugarte DATE: December 18, 2017 TIME: 4:54 PM ALLIED HEALTH Observed: 12/18/2017 Status: COMPLETED Source: [place] 4:[address] [facility] [place] REPOSITORY HNO ID: [id number] Author: Mary Ellen Robledo Service: Art Therapy Author Type: Art Therapist Type: Allied Health Filed: 12/18/2017 4:15 PM Note Text: ART THERAPY NOTE SERVICE DATE: 12/18/2017 SERVICE TIME: 1534 H81-8 Referred By: Resident / fellow Reason for Referral: Relaxation COMMENTS: Consult received and appreciated. Pt appeared to be sleeping upon arrival, though opened eyes to greeting. Introduction offered. Pt reported interest in art therapy service another day, as she was experiencing a headache. Schedule reviewed. Pt thanked engineering writer and asked for tissues which were provided. AT will follow up as able. SIGNATURE: Mary Ellen Robledo, Art Therapist PATIENT NAME: Stephie Ugarte DATE: December 18, 2017 TIME: 4:11 PM PAGER/CONTACT #: [phone] CASE MANAGEM Observed: 12/18/2017 Status: COMPLETED Source: [facility] 3:10 PM [facility] REPOSITORY HNO ID: [id number] Author: Blanca (Rn) JINNY Regalado Service: Care Management Author Type: Registered Nurse Type: Care Mgt Progress Note Filed: 12/18/2017 3:12 PM Note Text: CARE MANAGEMENT PROGRESS NOTE SERVICE DATE: 12/18/2017 SERVICE TIME: 01:23 pm LOS: 6 days [place] Band Manager Note Unit Band Manager Plan: no weekend discharge. [place] CM will coordinate care with the facility liaison when pt medically cleared for discharge. SIGNATURE: Blanca Regalado RN PATIENT NAME: Stephie Ugarte DATE: December 18, 2017 TIME: 3:10 PM PAGER/CONTACT #: [phone] CONSULT PROG Observed: 12/18/2017 Status: COMPLETED Source: [facility] 12:[address] [facility] [place] REPOSITORY HNO ID: [id number] Author: Diya Gregorio (Pharmacist) Service: Pharmacy Author Type: Pharmacist Type: Consult Progress Note Filed: 12/18/2017 12:35 PM Note Text: PHARMACY VANCOMYCIN DOSING NOTE Patient Name: Stephie Ugarte Admission Date: 12/12/2017 Date of Consult: 12/18/2017 Time of Consult: 12:33 PM Indication: WEB PRESSMAN infection Goal Range: 15-25 mcg/mL RECOMMENDATIONS/PLAN: Pharmacy consulted for vancomycin dosing for Stephie Ugarte, a 72 year old, female who is being treated with vancomycin for WEB PRESSMAN infection. 1. Patient is currently ordered Vancomycin 1 g IV q12h. Today is day 7 of therapy (Day 1 of new regimen). 2. No vancomycin level has been drawn for this dosing regimen. 3. The present dose of vancomycin is the recommended dosage for this patient at this time. Continue therapy as prescribed. 4. The next vancomycin level will be ordered for 12/22 unless clinically indicated sooner. (Pharmacy will order) We will follow patient renal function, vancomycin levels and doses with you during the course of therapy. Additional recommendations will appear in follow up notes. If you have any questions, please contact DIYA GREGORIO, PHARMACIST at [phone]. Age: [age] year old Allergies: ALLERGIES Allergen Reactions - Anesthesia [Other] GI Upset Last 3 Encounter Wt Readings: Date: Wt: 12/11/2017 86.4 kg (190 lb 7.6 oz) 11/09/2017 80.3 kg (177 lb) 06/26/2017 82.1 kg (181 lb) Last 1 Encounter Ht Readings: Date: Ht: 12/11/2017 160 cm (5' 3) CrCl: ~80 mL/min Temp (24hrs), Av.5 ?C (97.7 ?F), Min:36.3 ?C (97.3 ?F), Max:36.6 ?C (97.9 ?F) - Current Temp: 36.3 ?C (97.3 ?F) Labs BUN (mg/dL) Date Value 12/17/2017 15 12/17/2017 13 12/16/2017 14 Creatinine (mg/dL) Date Value 12/17/2017 0.62 12/17/2017 0.59 12/16/2017 0.55 (L) WBC (k/uL) Date Value 12/17/2017 7.16 12/15/2017 7.87 12/14/2017 7.79 Vancomycin Levels: Vancomycin, result (ug/mL) Date/Time Value 12/17/2017 1542 24.8 (H) 12/14/2017 1601 22.3 (H) NARINDER GIPSON THERAPY NT Observed: 12/18/2017 Status: COMPLETED Source: [facility] 10:50 AM [facility] REPOSITORY HNO ID: [id number] Author: Romulo Martinez Service: Physical Therapy Author Type: Slip Mixer Type: Therapy (PT/OT/Speech/Resp) Filed: 12/18/2017 10:50 AM Note Text: Attestation signed by Samra RodriguezPtAbhishek Ramos at 12/21/2017 7:56 AM I reviewed and agree with the documentation corresponding to this therapy visit. SIGNATURE: Samra Ramos, NEEL DATE: December 21, 2017 TIME: 7:56 AM PHYSICAL THERAPY MISSED VISIT SERVICE DATE: 12/18/2017 SERVICE TIME: 1049 to 1049 ROOM: [place] [address] Attempted Treatment. Patient not seen due to Declined (due to fatigue from bathing. Will attempt again as able.). SIGNATURE: Romulo Martinez PTA PATIENT NAME: Stephie Ugarte DATE: December 18, 2017 TIME: 10:50 AM CONSULT PROG Observed: 12/18/2017 Status: COMPLETED Source: [facility] 10:17 AM [facility] REPOSITORY HNO ID: [id number] Author: Denisse Osorio Service: Infectious Disease Author Type: Physician Type: Consult Progress Note Filed: 12/18/2017 3:08 PM Note Text: INFECTIOUS DISEASE CONSULT SERVICE PROGRESS NOTE Date: December 18, 2017 Patient Name: Stephie Ugarte Interval Events: -Patient remains afebrile and HDS -No acute events overnight -Neuro exam remains unchanged -Blood culture from 12/16 remains negative -Repeat CRP 2.5 MEDICATIONS Medications reviewed. Current hospital medications: sodium hypochlorite 0.125 % in empty bag Total Volume 960 mL topical irrigation 75 mL/hr IRRIGATION Q 3 and 1/2 HR vancomycin iv piggyback 1 g in D5W 200 mL (VANCOCIN) 1 g INTRAVENOUS q 12 HR acetaminophen 650 mg tab(s) (TYLENOL) 650 mg ORAL q 6 H PRN heparin 5,000 Units injection 5,000 Units SUBCUTANEOUS q 12 H vancomycin dosing and monitoring per pharmacy OTHER As Directed 0.9% NaCl 3-5 mL 3-5 mL INTRAVENOUS q 12 H oxyCODONE IR 5-10 mg tab(s) (ROXICODONE) 5-10 mg ORAL q 6 H PRN lisinopril 10 mg tab(s) (ZESTRIL, PRINIVIL) 10 mg ORAL DAILY ondansetron (PF) 4 mg injection (ZOFRAN) 4 mg INTRAVENOUS q 6 H PRN EXAMINATION: BP 154/50 Pulse 72 Temp 36.6 ?C (97.9 ?F) (Oral) Resp 16 Ht 160 cm (5' 3) Wt 86.4 kg (190 lb 7.6 oz) SpO2 98% BMI 33.74 kg/m? GENERAL APPEARANCE:alert, in no acute distress SKIN: vac dressing in place over the buttock and mid thoracic wound HEAD/SINUSES: No significant findings. EYES: PERRLA, conjunctiva cleare NECK: Supple LUNGS: Clear to auscultation, No crackles. HEART: Regular rate and rhythm ABDOMEN: Soft, Non-tender, Nondistended, Normal bowel sounds EXTREMITIES: negative edema, no rash NEURO: Awake, alert and oriented x 3 -Motor strength 4/5 in the bilateral lower extremities. -R hip flexor weaker than R knee extensor - chronic -SILT over the bilateral lower extremities -Left leg 5/5 MSK/Back: Wound vac in place with no leaks. Suction site along the right inferolateral back ACCESS: peripheral IVs C/D/I LABORATORY DATA: WBC (k/uL) Date Value 12/17/2017 7.16 12/15/2017 7.87 12/14/2017 7.79 Hemoglobin (g/dL) Date Value 12/17/2017 9.7 12/15/2017 9.3 12/14/2017 8.5 Platelet Count (k/uL) Date Value 12/17/2017 471 12/15/2017 463 12/14/2017 451 Creatinine (mg/dL) Date Value 12/17/2017 0.62 12/17/2017 0.59 12/16/2017 0.55 MICROBIOLOGY DATA: reviewed IMAGING DATA: Films personally reviewed. ASSESSMENT: -Has hx of ?c spine hardware, lumbar laminectomy, b/l TKA, b/l RODGER. -Underwent spinal cord stimulator placement 11/13, per her daughter was healing ok, but at f/u appt wound was draining copious bloody fluid. Began feeling unwell, then become moribund. -Went to OSH--found to be MRSA bacteremia.. -Underwent stimulator removal 11/30, per pt's daughter wounds were sewn shut -Initially cleared MRSA , then relapsed ?per records -Was changed to daptomycin (NOT due to any intolerance of vancomycin) ultimely wounds becam more swollen--opened 12/11, with gross purulence per daughter, now packed. -Repeat MRI at [facility]--shows T2/3 epidural abscess with ?cord compression and pachymeningitis -Blood cultures positive for staph aureus, enterobacter -Echo from 12/13 with no vegetations - Enterobacter from single set blood culture without any change in her clinical status - afebrile. no central lines - Repeat blood culture 12/16 negative - Repeat CRP of 2.5, improvement RECOMMENDATIONS: - Continue vancomycin at this time - Ensure trough 15-25 - Please obtain repeat cultures if possible - Monitoring for therapeutic and adverse effects to intravenous antibiotics. - Surgical intervention deferred at this time per neurosurgery - beside wound vac placement + antibiotics (plan to revise superficial skin closure once infection is clear). Case discussed with Dr. Osorio. Grey Elam MD Infectious Disease, PGY-1 Pager [phone] December 18, 2017 Events reviewed. Patient examined. Findings as outlined in the resident's note above. Hall elements verified. Relevant lab data, microbiology and imaging data reviewed. Relevant images personally reviewed. Agree with assessment and plan as outlined in the resident's note above. I was physically present for the critical portions of the service provided by the ID team. The management plan reflects my input. Denisse Osorio MD 72F from [place] transferred for recurrence of MRSA bacteremia and purulence from surgical site h/o c spine hardware placement lumbar stenosis s/p lumbar laminectomy, fusion bilateral TKA and bilateral RODGER SCS placement 11/13/2017 c/b infected SCS marked by copious bloody drainage from the surgical sites and mental status changes. Admitted to [facility] with MRSA bacteremia s/p SCS removal (including catheter) 11/30/2017 -- per Dr. Rutledge review - MRSA bacteremia cleared but relapsed per records. despite washout and daptomycin, noted to have gross purulence and dehiscence 12/11/2017 ? Readmitted with relapsing MRSA bacteremia. Repeat MRI 12/13 reviewed with T2/3 epidural abscess and ?cord compression and pachymeningitis Suspected primary source - previous SCS site with purulence - s/p vac placement 12/15/2017 - wound beds are clean and do not show anymore signs of purulent drainage or infection as of last vac change 12/17 (see primary team progress note images) ? Enterobacter from single set blood culture without any change in her clinical status - afebrile. no central lines. suspect contaminant ?? continue vancomycin IV await repeat blood culture- patient difficult stick and unable to draw a second set; consider repeating another set if able neuro checks trend CRP anticipate vancomycin IV x 6 weeks ? Dr. Rashid Connors available over the weekend for ?s I am back on Thursday 12/21 Denisse Osorio MD CASE MANAGEM Observed: 12/18/2017 Status: COMPLETED Source: [facility] 10:03 AM [facility] REPOSITORY HNO ID: [id number] Author: Brenda Fitzpatrick) JINNY Sargent Service: Care Management Author Type: Registered Nurse Type: Care Mgt Progress Note Filed: 12/18/2017 10:17 AM Note Text: CARE MANAGEMENT PROGRESS NOTE SERVICE DATE: 12/18/2017 SERVICE TIME: 1003 LOS: 6 days Needs Prior to Discharge: Precertification;OT/PT Evaluation;Discharge Transportation;IV Antibiotics;Wound Care NO WEEKEND DISCHARGE. Will d[facility]c to [facility] when medically clear. Wound vac will either need d/c'd or changed to a regular vac. Need copat entered into EPIC and PICC inserted. Pt reported to primary team that she now wants to be a FULL CODE. BLS transport. For weekend case management needs, please page [phone]. Thank you. SIGNATURE: Brenda Sargent RN PATIENT NAME: Stephie Ugarte DATE: December 18, 2017 TIME: 10:03 AM PAGER/CONTACT #: [phone] PROGRESS Observed: 12/18/2017 Status: COMPLETED Source: [facility] 7:32 AM [facility] REPOSITORY HNO ID: [id number] Author: Hitesh Molina Service: General Internal Medicine Author Type: Physician Type: Progress Notes Filed: 12/18/2017 1:15 PM Note Text: INTERNAL MEDICINE PROGRESS NOTE Patient Name: Stephie Ugarte Date of Serivce: 12/18/2017 Time: 7:32 AM PRIMARY SERVICE: Jarad Antony HOSPITAL DAY: # 6 BRIEF PLAN FOR THE DAY - Follow up on repeat CRP, continued blood cultlure monitoring from 12/16 - Continue with IV vancomycin today - Continue wound and pain management per Wound Care team with aggressive offloading INTERVAL SUBJECTIVE HISTORY - Blood cultures negative NGTD x2 from 12/16 blood culture draw. 12/13 and 12/12 positive for MRSA. - Continued on IV vancomycin - BMP stable this morning PHYSICAL EXAM: Patient Vitals for the past 24 hrs: BP Temp Temp src Pulse Resp SpO2 Height 12/18/17 0647 (!) 155/48 36.6 ?C (97.9 ?F) Oral 74 16 98 % - 12/18/17 0200 131/51 36.5 ?C (97.7 ?F) Oral 72 16 96 % - 12/17/17 2130 141/74 36.6 ?C (97.8 ?F) Oral 80 18 97 % - 12/17/17 1931 - - - - - - 160 cm (5' 3) 12/17/17 1727 122/70 36.5 ?C (97.7 ?F) Oral 78 20 100 % - 12/17/17 1420 (!) 138/42 36.4 ?C (97.5 ?F) Oral 79 18 97 % - 12/17/17 0939 (!) 140/41 36.2 ?C (97.2 ?F) Oral 83 20 99 % - Body mass index is 33.74 kg/m?. GENERAL: Alert, no distress, cooperative SKIN: Skin color, texture, turgor normal. No rashes or lesions., wound on back extending from paraspinal thoracic/lumbar regions down to hips continue to drain serosanguineous fluid. No evidence of new erythema or purulent drainage. OROPHARYNX: Lips, mucosa, and tongue are normal.Teeth and gums, normal. Oropharynx normal. NECK: No jugulovenous distention, No carotid bruits, Carotid pulse normal contour, Supple LUNGS: Lungs clear to auscultation. Good diaphragmatic excursion. CARDIAC: Normal S1 and S2; no rubs, murmurs, or gallops ABDOMEN: Abdomen soft, non-tender, BS normal, No masses or organomegaly EXTREMITIES: Extremities normal, no deformities, edema, clubbing or skin discoloration. Good capillary refill., No ulcers NEURO: Alert, oriented X 3, Gait normal. Non-focal. Reflexes normal and symmetric. Sensation grossly intact., Cranial nerves II-XII intact PULSES: 2+ radial, 2+ carotid MEDICATIONS Current hospital medications: sodium hypochlorite 0.125 % in empty bag Total Volume 960 mL topical irrigation 75 mL/hr IRRIGATION Q 3 and 1/2 HR vancomycin iv piggyback 1 g in D5W 200 mL (VANCOCIN) 1 g INTRAVENOUS q 12 HR acetaminophen 650 mg tab(s) (TYLENOL) 650 mg ORAL q 6 H PRN heparin 5,000 Units injection 5,000 Units SUBCUTANEOUS q 12 H vancomycin dosing and monitoring per pharmacy OTHER As Directed 0.9% NaCl 3-5 mL 3-5 mL INTRAVENOUS q 12 H oxyCODONE IR 5-10 mg tab(s) (ROXICODONE) 5-10 mg ORAL q 6 H PRN lisinopril 10 mg tab(s) (ZESTRIL, PRINIVIL) 10 mg ORAL DAILY ondansetron (PF) 4 mg injection (ZOFRAN) 4 mg INTRAVENOUS q 6 H PRN DATA Recent Labs 12/17/17 1614 12/15/17 1544 WBC 7.16 7.87 HB 9.7* 9.3* HCT 29.8* 28.6* PLT 471* 463* Recent Labs 12/17/17 1614 12/17/17 0650 12/16/17 1109 NA 134* 130* 133* K 4.0 4.0 4.1 CO2 24 22 23 BUN 15 13 14 CREAT 0.62 0.59 0.55* GLUC 113* 90 98 IMAGING ASSESSMENT AND PLAN Briefly, 72 year old female with a PMH for HTN and chronic back pain who recently had neurostimulator placed near the thoracic spine (11/13), complicated by hardware infection and MRSA bacteremia s/p hardware removal (11/30). She had presented to the OSH ED with AMS and was treated for sepsis (11/21). ? Hardware was cultured, MRSA positive. Vancomycin given and MRSA persisted in blood cultures. Briefly on daptomycin, and seemed to improve by 12/02 (suspected to be due to bactericidal effect), but with persistently positive blood cultures despite antimicrobial therapy. MRI completed demonstrating new enhancement in thoracic epidural spaces concerning for infection, and patient was transferred to [facility], after [facility] cleanout, due to potential need for Spine Surgery specialists. ID and Spine specialties consulted for recommendations and now on vancomycin. S/P wound vac placement and undergoing blood culture monitoring, now negative for x2 days. MRSA bacteremia, suspected to be due to spread from infected paraspinal hardware s/p removal, resolving and stable ? MRI spine repeated after admission demonstrating epidural abscess and match meningitis. Following cultures which have now begun to be negative since drawn on 12/16. ? - ID consulted: continue vancomycin for the time being - Neurosurgery consulted: wound vac placement and close Wound Care monitoring. - Will follow repeat blood cultures x2 from 12/18 ? Epidural abscess ? Demonstrated on MRI on admission significant for T2 - T3 epidural abscess. OSH MRI on 12/11: Abnormal enhancement of the anterior epidural space at T2-5 and posterior epidural space T8-11 consistent with inflammatory or infectious process. Irregular enhancement of the anterior surface of the thoracic spinal cord at T2-4 may represent infectious process. Signal abnormality within spinal cord at T3-4 suggesting edema ? - Continue with vancomycin, target trough 15 - 25 - Follow up on blood culture results, positive for Gram positive Cocci from 12/12 and 12/13, negative x2 days from 12/16. ? Chronic Medical issues - HTN: stable, continue lisinopril 10mg daily Medication and Non-Pharmacologic VTE Prophylaxis/Anticoagulants Anticoagulant AND Antiplatelet Medications Start Dose Route Frequency Ordered Stop 12/14/17 1600 heparin 5,000 Units injection (Medical At Risk ) 5,000 Units SUBCUTANEOUS EVERY 12 HOURS 12/14/17 1534 -- 12/14/17 1545 pneumatic compression stockings (fl,oh) 12/12/17 1815 pneumatic compression stockings (fl,oh) 12/12/17 0345 vte non-pharmacologic prophylaxis - none indicated (fl,oh) 12/12/17 0345 activity - mobilize patient (ks,oh) VTE Prophylaxis: VTE prophylaxis appropriate SIGNATURE: Phillip Fritz MD PATIENT NAME: Stephie Ugarte DATE: December 18, 2017 TIME: 7:32 AM PAGER/CONTACT #: [phone] [facility] STAFF PHYSICIAN NOTE OF PERSONAL INVOLVEMENT IN CARE I have reviewed the progress note obtained and documented by the resident and I personally participated in the hall components. I have discussed the case and management of the patient's care. The following comments revise or confirm relevant hall components of their note. IMPRESSION: This is a 72 year old female with chronic back pain s/p spinal cord stimulator placement 11/13/2017 complicated with MRSA bacteremia s/p stimulator removal 11/30 who presents as a transfer with persistent MRSA bacteremia with out sepsis ??Has history of bilateral TKA and RODGER ? Found to have T2/3 epidural abscess on MRI with ? cord compression and pachymeningitis Seen by NSGY no surgical intervention at this time suggested wound vac placement and continue antibiotics Surface echocardiogram w/o evidence of IE ? Doing well sitting on chair NAD afebrile Neurological exam unchanged ? Wound vac changed no longer leaking Blood culture 12/16 with no growth for 2 days ? PLAN:?? Continue vancomycin as per pharmacy Repeat blood cultures today Hitesh Molina MD December 18, 2017 1:14 PM CONSULT PROG Observed: 12/17/2017 Status: COMPLETED Source: [place] 5:[address] [facility] REPOSITORY O ID: [id number] Author: Diya Gregorio (Pharmacist) Service: Pharmacy Author Type: Pharmacist Type: Consult Progress Note Filed: 12/17/2017 5:38 PM Note Text: PHARMACY VANCOMYCIN DOSING NOTE Patient Name: Stephie Ugarte Admission Date: 12/12/2017 Date of Consult: 12/17/2017 Time of Consult: 5:34 PM Indication: WEB PRESSMAN infection Goal Range: 15-25 mcg/mL RECOMMENDATIONS/PLAN: Pharmacy consulted for vancomycin dosing for Stephie Ugarte, a 72 year old, female who is being treated with vancomycin for WEB PRESSMAN infection. 1. Patient is currently ordered Vancomycin 1.25 g IV q12h. Today is day 6 of therapy. 2. The most recent vancomycin level was 24.8 mcg/mL drawn at 1542 on 12/17. This is a 14.5 hour level on the 6th day of therapy. 3. Will decrease vancomycin to 1 g with a dosing interval of q12h since the level was at the upper end of goal even after being drawn 2.5 hours late. 4. The next vancomycin level will be ordered for 12/22 unless clinically indicated sooner. (Pharmacy will order) We will follow patient renal function, vancomycin levels and doses with you during the course of therapy. Additional recommendations will appear in follow up notes. If you have any questions, please contact DIYA GREGORIO, PHARMACIST at [phone]. Age: [age] year old Allergies: ALLERGIES Allergen Reactions - Anesthesia [Other] GI Upset Last 3 Encounter Wt Readings: Date: Wt: 12/11/2017 86.4 kg (190 lb 7.6 oz) 11/09/2017 80.3 kg (177 lb) 06/26/2017 82.1 kg (181 lb) Last 1 Encounter Ht Readings: Date: Ht: 03/11/2016 161.3 cm (5' 3.5) CrCl: ~80 mL/min Temp (24hrs), Av.4 ?C (97.5 ?F), Min:36.2 ?C (97.2 ?F), Max:36.5 ?C (97.7 ?F) - Current Temp: 36.5 ?C (97.7 ?F) Labs BUN (mg/dL) Date Value 12/17/2017 13 12/16/2017 14 12/15/2017 15 Creatinine (mg/dL) Date Value 12/17/2017 0.59 12/16/2017 0.55 (L) 12/15/2017 0.59 WBC (k/uL) Date Value 12/17/2017 7.16 12/15/2017 7.87 12/14/2017 7.79 Vancomycin Levels: Vancomycin, result (ug/mL) Date/Time Value 12/17/2017 1542 24.8 (H) 12/14/2017 1601 22.3 (H) NARINDER GIPSON CONSULT PROG Observed: 12/17/2017 Status: COMPLETED Source: [place] 4:56 PM [facility] REPOSITORY HNO ID: [id number] Author: Denisse Osorio Service: Infectious Disease Author Type: Physician Type: Consult Progress Note Filed: 12/17/2017 6:14 PM Note Text: INFECTIOUS DISEASE CONSULT SERVICE PROGRESS NOTE Date: December 16, 2017 Patient Name: Stephie Ugarte Interval Events: Patient remains afebrile and HDS No acute events overnight Neuro exam remains unchanged -Repeat blood cultures in process -No urinary or bowel incontinence at this time -Prior echo from 12/13 with no vegetations MEDICATIONS Medications reviewed. Current hospital medications: sodium hypochlorite 0.125 % in empty bag Total Volume 960 mL topical irrigation 75 mL/hr IRRIGATION Q 3 and 1/2 HR acetaminophen 650 mg tab(s) (TYLENOL) 650 mg ORAL q 6 H PRN heparin 5,000 Units injection 5,000 Units SUBCUTANEOUS q 12 H vancomycin dosing and monitoring per pharmacy OTHER As Directed 0.9% NaCl 3-5 mL 3-5 mL INTRAVENOUS q 12 H oxyCODONE IR 5-10 mg tab(s) (ROXICODONE) 5-10 mg ORAL q 6 H PRN lisinopril 10 mg tab(s) (ZESTRIL, PRINIVIL) 10 mg ORAL DAILY ondansetron (PF) 4 mg injection (ZOFRAN) 4 mg INTRAVENOUS q 6 H PRN vancomycin 1.25 g in D5W 250 mL (VANCOCIN) 1.25 g INTRAVENOUS q 12 HR EXAMINATION: BP (!) 138/42 Pulse 79 Temp 36.4 ?C (97.5 ?F) (Oral) Resp 18 Wt 86.4 kg (190 lb 7.6 oz) SpO2 97% BMI 33.21 kg/m? GENERAL APPEARANCE:alert, in no acute distress SKIN: vac dressing in place over the buttock and mid thoracic wound HEAD/SINUSES: No significant findings. EYES: PERRLA, conjunctiva cleare NECK: Supple LUNGS: Clear to auscultation, No crackles. HEART: Regular rate and rhythm ABDOMEN: Soft, Non-tender, Nondistended, Normal bowel sounds EXTREMITIES: negative edema, no rash NEURO: Awake, alert and oriented x 3 -Motor strength 4/5 in the bilateral lower extremities. -R hip flexor weaker than R knee extensor - chronic -SILT over the bilateral lower extremities -Left leg 5/5 MSK/Back: Wound vac in place with no leaks. Suction site along the right inferolateral back ACCESS: peripheral IVs c/d/i LABORATORY DATA: WBC (k/uL) Date Value 12/15/2017 7.87 12/14/2017 7.79 12/13/2017 9.51 Hemoglobin (g/dL) Date Value 12/15/2017 9.3 12/14/2017 8.5 12/13/2017 8.7 Platelet Count (k/uL) Date Value 12/15/2017 463 12/14/2017 451 12/13/2017 442 Creatinine (mg/dL) Date Value 12/17/2017 0.59 12/16/2017 0.55 12/15/2017 0.59 MICROBIOLOGY DATA: reviewed IMAGING DATA: Films personally reviewed. ASSESSMENT: -Has hx of ?c spine hardware, lumbar laminectomy, b/l TKA, b/l RODGER. -Underwent spinal cord stimulator placement 11/13, per her daughter was healing ok, but at f/u appt wound was draining copious bloody fluid. Began feeling unwell, then become moribund. -Went to OSH--found to be MRSA bacteremia.. -Underwent stimulator removal 11/30, per pt's daughter wounds were sewn shut -Initially cleared MRSA , then relapsed ?per records -Was changed to daptomycin (NOT due to any intolerance of vancomycin) ultimely wounds becam more swollen--opened 12/11, with gross purulence per daughter, now packed. -Repeat MRI at [facility]--shows T2/3 epidural abscess with ?cord compression and pachymeningitis -Blood cultures positive for staph aureus, enterobacter -Echo from 12/13 with no vegetations - Enterobacter from single set blood culture without any change in her clinical status - afebrile. no central lines - Repeat blood cultures positive for staph RECOMMENDATIONS: - Continue vancomycin at this time - Ensure trough 15-25 - Monitoring for therapeutic and adverse effects to intravenous antibiotics. - Surgical intervention deferred at this time per neurosurgery - beside wound vac placement + antibiotics (plan to revise superficial skin closure once infection is clear). Case discussed with Dr. Osorio. Grey Elam MD Infectious Disease, PGY-1 Pager [phone] December 17, 2017 Events reviewed. Patient examined. Findings as outlined in the resident's note above. Hall elements verified. Relevant lab data, microbiology and imaging data reviewed. Relevant images personally reviewed. Agree with assessment and plan as outlined in the resident's note above. I was physically present for the critical portions of the service provided by the ID team. The management plan reflects my input. Denisse Osorio MD 72F from [place] transferred for recurrence of MRSA bacteremia and purulence from surgical site h/o c spine hardware placement lumbar stenosis s/p lumbar laminectomy, fusion bilateral TKA and bilateral RODGER SCS placement 11/13/2017 c/b infected SCS marked by copious bloody drainage from the surgical sites and mental status changes. Admitted to [facility] with MRSA bacteremia s/p SCS removal (including catheter) 11/30/2017 -- per Dr. Rutledge review - MRSA bacteremia cleared but relapsed per records. despite washout and daptomycin, noted to have gross purulence and dehiscence 12/11/2017 ? Readmitted with relapsing MRSA bacteremia. Repeat MRI 12/13 reviewed with T2/3 epidural abscess and ?cord compression and pachymeningitis Suspected primary source - previous SCS site with purulence - s/p vac placement 12/15/2017 ? Enterobacter from single set blood culture without any change in her clinical status - afebrile. no central lines. suspect contaminant Wound care team at [facility] to change wound vac this morning - per their note - wounds are clean but deep and undermining. no sign of active purulent drainage or infection. ? continue vancomycin IV await repeat blood culture- patient difficult stick and unable to draw a second set; consider repeating another set if able neuro checks repeat CRP Denisse Osorio MD CBC Collected: 12/17/2017 Status: F Source: [facility] 4:14 PM [facility] REPOSITORY TYPE CODE TESTS RESULT OUT OF REFERENCE UNITS RANGE LAB WBC 3.70-11.00 k/uL WBC 7.16 LAB RBC 3.90-5.20 m/uL Low RBC 3.51 LAB HGB 11.5-15.5 g/dL Low Hemoglobin 9.7 LAB HCT 36.0-46.0 % Low Hematocrit 29.8 LAB MCV 80.0-100.0 fL MCV 84.9 LAB MCH 26.0-34.0 pG MCH 27.6 LAB MCHC 30.5-36.0 g/dL MCHC 32.6 LAB RDWCV 11.5-15.0 % RDW-CV 14.6 LAB PLTCT 150-400 k/uL Platelet High Count 471 LAB MPV 9.0-12.7 fL Low MPV 8.7 LAB ABSNUC <0.01 k/uL Absolute nRBC <0.01 Performed By: #### CBC #### [facility] [address] [address] BASIC METABOLIC PANL Collected: 12/17/2017 Status: F Source: [facility] 4:14 PM [facility] REPOSITORY TYPE CODE TESTS RESULT OUT OF REFERENCE UNITS RANGE LAB GLU 74-99 mg/dL High Glucose 113 Result Comment: The [place] Diabetes [employer] (ADA) provides guidance for cutoff values for fasting glucose and random glucose. The ADA defines fasting as no caloric intake for at least 8 hours. Fas ting plasma glucose results between 100 to 125 mg/dL indicate increased risk for diabetes (prediabetes). Fasting plasma glucose results greater than or equal to 126 mg/dL meet the criteria for diagnosis of diabetes. In the absence of unequivocal hyperglycemia, results should be confirmed by repeat testing. In a patient with classic symptoms of hyperglycemia or hyperglycemic crisis, random plasma glucose results greater than or equal to 200 mg/dL meet the criteria for diagnosis of diabetes. Reference: Standards of Medical Care in Diabetes 2016, [place] [employer]. Diabetes Care. 2016.39(Suppl 1). LAB BUN 7-21 mg/dL BUN 15 LAB CRET 0.58-0.96 mg/dL Creatinine 0.62 LAB NA 136-144 mmol/L Sodium Low 134 LAB K 3.7-5.1 mmol/L Potassium 4.0 LAB CL 97-105 mmol/L Chloride Low 95 LAB CO2 22-30 mmol/L CO2 24 LAB AGAP 9-18 mmol/L Anion Gap 15 LAB CA 8.5-10.2 mg/dL Calcium, Total 8.9 LAB GFRAA eGFR- Amer. >60 LAB GFRNAA . eGFR-All Other Races >60 Result Comment: eGFR (Estimated GFR) Units of measure: mL/min/1.73 meters squared eGFR is derived from the reexpressed MDRD Study equation using the following parameters: serum creatinine, age, gender and race. The creatinine assay has been calibrated to be traceable to IDMS. An eGFR <60 mL/min/1.73m2 for >3 months is consistent with chronic kidney disease. Refer to KDOQI guidelines for clinical interpretation. In patients with unstable renal function, e.g. those with acute kidney injury, the eGFR may not accurately reflect actual GFR. Performed By: #### BMP #### [facility] [address] [place] [address] C-REACTIVE PROTEIN Collected: 12/17/2017 Status: F Source: [facility] 4:14 PM [facility] REPOSITORY TYPE CODE TESTS RESULT OUT OF REFERENCE UNITS RANGE LAB CRP <0.9 mg/dL High C-Reactive 2.5 Protein Performed By: #### CRP #### [facility] [employer] [address] [place], [place] [address] VANCOMYCIN Collected: 12/17/2017 Status: F Source: [facility] 3:42 PM [facility] REPOSITORY TYPE CODE TESTS RESULT OUT OF REFERENCE UNITS RANGE LAB VANCRA 5.0-20.0 ug/mL High Vancomycin 24.8 Result Comment: Reference ranges and high/low indicator flags are provided as general guidelines only. The treating physician must determine appropriate target levels/dosing based on the specific clinical situation. Performed By: #### VANCRA #### [facility] [address] [place], [place] [address] NUTRITION Observed: 12/17/2017 Status: COMPLETED Source: [facility] 1:18 PM [facility] REPOSITORY HNO ID: [id number] Author: Swathi (Diet-T) Russell Service: Nutrition Therapy Author Type: Big Data Admin Type: Nutrition Filed: 12/17/2017 1:20 PM Note Text: NUTRITION THERAPY FOLLOW-UP NOTE SERVICE DATE: 12/17/2017 SERVICE TIME: 935 Anthropometrics: Current Weight: Weight: 86.4 kg (190 lb 7.6 oz) Body mass index is 33.21 kg/m?. Loss of lean body mass/visual muscle wasting: no Admitting Diagnosis: Septicemia (HCC) [A41.9] Present Diet Order: Regular Is the patient having any pain that is interfering with oral/enteral intake? No Allergies: ALLERGIES Allergen Reactions - Anesthesia [Other] GI Upset Reason for Visit: Nutrition screen: LOS > 6 days Nutrient intake assessment: Current intake of meals: 50 - 75% Patient concerns/Issues: The patient states she has been improving her intakes and her appetite has been improving. Snacks were ordered, supplements were strongly declined. The patient denied any other issues or concerns at this time. Will continue to monitor. Nursing Admission Assessment Malnutrition Score Tool: 1 Plan of Care: Recommendation No problems noted at this time. Will screen again within 7 days Discharge Plan: Regular MNT Billing Type: Routine Care/15 min 1 unit SIGNATURE: Swathi Wells DTR CD PATIENT NAME: Stephie Ugarte DATE: December 17, 2017 TIME: 1:19 PM PAGER: [phone] [facility] Observed: 12/17/2017 Status: COMPLETED Source: [facility] 1:18 PM [facility] REPOSITORY HNO ID: [id number] Author: Kaz (William) Service: Wound/Ostomy Author Type: Clinical Nurse Specialist Type: Allied Health Filed: 12/17/2017 1:22 PM Note Text: This is a note of medical necessity for wound vac treatment. WOUND OSTOMY INPATIENT PROGRESS NOTES Name: Stephie Ugarte Date: December 17, 2017 S: INTERVAL HPI and PERTINENT ROS: This is a 72 year old female with MRSA bacteremia source - infected nerves stimulator and battery. MRI at OSHshowing concerns of edema around spinal cord. She presents with explanted stimulator wound right buttocks and thoracolumbar wound currently managed with veraflow / Dakins ? O: MEDICATIONS: Current hospital medications: sodium hypochlorite 0.125 % in empty bag Total Volume 960 mL topical irrigation 75 mL/hr IRRIGATION Q 3 and 1/2 HR acetaminophen 650 mg tab(s) (TYLENOL) 650 mg ORAL q 6 H PRN heparin 5,000 Units injection 5,000 Units SUBCUTANEOUS q 12 H vancomycin dosing and monitoring per pharmacy OTHER As Directed 0.9% NaCl 3-5 mL 3-5 mL INTRAVENOUS q 12 H oxyCODONE IR 5-10 mg tab(s) (ROXICODONE) 5-10 mg ORAL q 6 H PRN lisinopril 10 mg tab(s) (ZESTRIL, PRINIVIL) 10 mg ORAL DAILY ondansetron (PF) 4 mg injection (ZOFRAN) 4 mg INTRAVENOUS q 6 H PRN vancomycin 1.25 g in D5W 250 mL (VANCOCIN) 1.25 g INTRAVENOUS q 12 HR PHYSICAL EXAM: BP (!) 140/41 Pulse 83 Temp 36.2 ?C (97.2 ?F) (Oral) Resp 20 Wt 86.4 kg (190 lb 7.6 oz) SpO2 99% BMI 33.21 kg/m? Intake/Output Summary (Last 24 hours) at 12/17/17 1319 Last data filed at 12/17/17 0800 Gross per 24 hour Intake 1400 ml Output 1300 ml Net 100 ml Date 12/17/17 0700 - 12/18/17 0659 Shift [id number] [id number] 1710-1816 24 Hour Total I N T A K E PO 360 360 Shift Total 360 360 O U T P U T Shift Total Weight (kg) 86.4 86.4 86.4 86.4 WOUND CHARACTERISTICS Type: Surgical Duration of wound in weeks: 1 Measurements: Thoracolumbar: 4cm x 1.5cm x 3.2cm with 3cm undermine at 1300 Gluteal: 1cm x 7cm x 3.3cm with undermining 6.3cm @ 1200 - 3cm @ 0200 - 4.4cm @ 0600 Is there exudate present: Yes packing with creamy serosang Prior therapies attempted: Wet to Dry Nutritional status effecting wound healing: No Pre albumin level obtained: No results found for this basename: PREALB:2 ? LABS CBC, Coags, BMP, Mg, Phos Recent Labs 12/17/17 0650 12/16/17 1109 12/15/17 1544 12/15/17 0547 WBC -- -- 7.87 -- HB -- -- 9.3* -- HCT -- -- 28.6* -- PLT -- -- 463* -- NA 130* 133* -- 133* K 4.0 4.1 -- 3.7 CHLOR 93* 96* -- 95* CO2 22 23 -- 23 BUN 13 14 -- 15 CREAT 0.59 0.55* -- 0.59 GLUC 90 98 -- 100* CA 8.8 8.8 -- 8.7 ? ASSESSMENT and PLAN of Care: Both wounds are clean with 100% viable tissue, periwound intact, edges flat, margins clean, no odor, no epibole, no overt signs of infection, labs conducive for wound healing ? Goal: - Exudate mgmt - bioburden mgmt - pain mgmt - avoid wound cross contamination - optimize nutrition - secondary intention ? Plan: - Veraflow Dakins 0.125% - 120cc - 10 min soak - 3.5 hour VAC cycle - bridge wounds - dressing change Tues and Fri - nutrition to support wound healing / energy needs - aggressive off loading. Minimize time on back - WOC nursing to perform wound care - d/w Yesica Mcallister MD ? Intervention: small persistent leak difficult to resolve. Decision made to change entire dressing. Pt was placed in left lateral recumbent position. Wounds cleansed soap and water. Skin barrier applied to periwounds extending to right lateral trunk for bridging. Single port veraflow foam bridged from trunk into inferior wound then secured. Additional foam inserted into superior wound then bridged. Veraflow initiated at -125mmHg continuous 75cc Dakins every 3.5 hours with good seal. Procedure tolerated well without verbalized pain or need for additional pain medications ? SIGNATURE: Kaz Luz APRN.WEB PRESSMAN PAGER: [phone] *A review of daily goals, interventions, and plan of care with the multidisciplinary team and patient has been conducted. The patient?s concerns have been addressed and he/she agrees to proceed with today?s plan of care. CASE MANAGEM Observed: 12/17/2017 Status: COMPLETED Source: [facility] 12:07 PM [facility] REPOSITORY HNO ID: [id number] Author: Brenda Chase (Rn) JINNY Sargent Service: Care Management Author Type: Registered Nurse Type: Care Mgt Progress Note Filed: 12/17/2017 12:08 PM Note Text: CARE MANAGEMENT PROGRESS NOTE SERVICE DATE: 12/17/2017 SERVICE TIME: 1207 LOS: 5 days Needs Prior to Discharge: Precertification;OT/PT Evaluation;Discharge Transportation;IV Antibiotics;Wound Care No weekend discharge. Will d[facility]c to [facility] SNF when medically clear. Wound vac will either need d/c'd or changed to a regular vac. Need copat entered into EPIC and PICC inserted. Pt reported to primary team that she now wants to be a FULL CODE. BLS transport. Please notify Case Management for any changes in skilled needs. Thank you. SIGNATURE: Brenda Sargent RN PATIENT NAME: Stephie Ugarte DATE: December 17, 2017 TIME: 12:07 PM PAGER/CONTACT #: [phone] PROGRESS Observed: 12/17/2017 Status: COMPLETED Source: [facility] 7:12 AM [facility] REPOSITORY HNO ID: [id number] Author: Hitesh Molina Service: General Internal Medicine Author Type: Physician Type: Progress Notes Filed: 12/17/2017 2:59 PM Note Text: MEDICAL STUDENT PROGRESS NOTE INTERNAL MEDICINE SERVICE DATE: 12/17/2017 SERVICE TIME: 7:12 AM Attending Note This note was generated by a MEDICAL STUDENT working under the supervision of an Attending Physician and is not authenticated until addended and cosigned by the Attending Physician at the beginning of this note. SUBJECTIVE INTERVAL HPI: VSS. AFebrile. Overnight, expressed wishes to be DNR-CCA. Spoke with patient at bedside to confirm understanding. She does want resuscitation efforts. She does not want be kept alive on a ventilator for a prolonged period of time. Given discrepancy between patient understanding and DNR-CCA Code Status, code status was not changed. Will discuss wishes and mechanisms to honor wishes with patient today. Medications: Current hospital medications: sodium hypochlorite 0.125 % in empty bag Total Volume 960 mL topical irrigation 75 mL/hr IRRIGATION Q 3 and 1/2 HR acetaminophen 650 mg tab(s) (TYLENOL) 650 mg ORAL q 6 H PRN heparin 5,000 Units injection 5,000 Units SUBCUTANEOUS q 12 H vancomycin dosing and monitoring per pharmacy OTHER As Directed 0.9% NaCl 3-5 mL 3-5 mL INTRAVENOUS q 12 H oxyCODONE IR 5-10 mg tab(s) (ROXICODONE) 5-10 mg ORAL q 6 H PRN lisinopril 10 mg tab(s) (ZESTRIL, PRINIVIL) 10 mg ORAL DAILY ondansetron (PF) 4 mg injection (ZOFRAN) 4 mg INTRAVENOUS q 6 H PRN vancomycin 1.25 g in D5W 250 mL (VANCOCIN) 1.25 g INTRAVENOUS q 12 HR OBJECTIVE BP (!) 140/41 Pulse 83 Temp 36.2 ?C (97.2 ?F) (Oral) Resp 20 Wt 86.4 kg (190 lb 7.6 oz) SpO2 99% BMI 33.21 kg/m? PHYSICAL EXAM: Cardiac: RRR. No murmurs. Lungs: CTA. Neuro: motor and sensory function grossly intact/unchanged. No pain. DATA: Diagnostic tests reviewed for today's visit: Most recent labs and imaging. Blood culture 12/16 pending. ASSESSMENT AND PLAN: Stephie Ugarte is a 72F with persistent MRSA bacteremia 2/2 thoracolumbar and R gluteal surgical site infection of spinal stimulator removed 11/30 s/p IANDD of both pocket and leads site 12/11 at OSH. Presented to [facility] bacteremic. PMH of HTN and bilateral TKA and RODGER. ? Persistent MRSA Bacteremia Afebrile. Discordant blood cx from 12/13 with +ve Enterobacter. Remains clinically stable/unchanged. Echo 12/13 negative for vegations. OSH 12/03 [facility] no vegetations. - vancomycin w/ goal trough 15-25 - received 1x Zosyn and 1x Ceftriaxone for enterobacter coverage --> discontinued --> blood cx drawn to reassess - ID following - TTE ? Open wounds - thoracolumbar and right gluteal region wound vacuum placed 12/15. Does not look infected (see pictures below-- taken with pt permission in de-identified manner) - expected to heal by secondary intention. Spine may repair superficial wound. - will discuss with CM ? 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 No evidence of urinary retention or incontinence. - neuro checks, monitoring pain or thoracic myelopathy - spine service following - PT consult, no restrictions ? Essential hypertension - lisinopril 10 mg ? Anemia uptrending Hgb Hemolytic w/u negative. Mixed anemia of chronic disease + iron deficiency. Given current inflammatory state, iron supplementation not indicated. - monitor ? VTE prophylaxis: Heparin 5k BID SIGNATURE: Chris Jarvis PATIENT NAME: Stephie Ugarte DATE: December 17, 2017 TIME: 7:12 AM PAGER: [facility] STAFF PHYSICIAN NOTE OF PERSONAL INVOLVEMENT IN CARE I have reviewed the history and physical examination obtained and documented by the medical student and I personally participated in the hall components. I have discussed the case and management of the patient's care. The following comments revise or confirm relevant hall components of their note. IMPRESSION: This is a 72 year old female with chronic back pain s/p spinal cord stimulator placement 11/13/2017 complicated with MRSA bacteremia s/p stimulator removal 11/30 who presents as a transfer with persistent MRSA bacteremia with out sepsis ?Has history of bilateral TKA and RODGER ? Found to have T2/3 epidural abscess on MRI with ? cord compression and pachymeningitis Seen by NSGY no surgical intervention at this time suggested wound vac placement and continue antibiotics Surface echocardiogram w/o evidence of IE ? Doing well sitting on chair NAD afebrile Neurological exam unchanged Wound vac with persistent leak Wound look clean as noted above Blood culture 12/16 with no growth < 24 hrs ? PLAN:?? Continue vancomycin Follow blood culture 12/16 ?Monitor any neurologic deficit change Wound dressings changed by wound care nurse Full code; discussed with patient Hitesh Molina MD December 17, 2017 2:59 PM COMP METABOLIC PANEL Collected: 12/17/2017 Status: F Source: [facility] 6:50 AM [facility] REPOSITORY TYPE CODE TESTS RESULT OUT OF REFERENCE UNITS RANGE LAB TP 6.3-8.0 g/dL Protein, Total 6.4 LAB ALB 3.9-4.9 g/dL Low Albumin 3.2 LAB CA 8.5-10.2 mg/dL Calcium, Total 8.8 LAB TBIL 0.2-1.3 mg/dL Bilirubin, Total 0.2 LAB ALKP 34-123 U/L Alkaline Phosphatase 75 LAB AST 13-35 U/L AST 20 Result Comment: Results may be falsely increased due to interference by hemolysis. Suggest reorder as clinically indicated. LAB GLU 74-99 mg/dL Glucose 90 Result Comment: The [place] Diabetes Association (ADA) provides guidance for cutoff values for fasting glucose and random glucose. The ADA defines fasting as no caloric intake for at least 8 hours. Fas ting plasma glucose results between 100 to 125 mg/dL indicate increased risk for diabetes (prediabetes). Fasting plasma glucose results greater than or equal to 126 mg/dL meet the criteria for diagnosis of diabetes. In the absence of unequivocal hyperglycemia, results should be confirmed by repeat testing. In a patient with classic symptoms of hyperglycemia or hyperglycemic crisis, random plasma glucose results greater than or equal to 200 mg/dL meet the criteria for diagnosis of diabetes. Reference: Standards of Medical Care in Diabetes 2016, [place] [employer]. Diabetes Care. 2016.39(Suppl 1). LAB BUN 7-21 mg/dL BUN 13 LAB CRET 0.58-0.96 mg/dL Creatinine 0.59 LAB NA 136-144 mmol/L Sodium Low 130 LAB K 3.7-5.1 mmol/L Potassium 4.0 LAB CL 97-105 mmol/L Chloride Low 93 LAB CO2 22-30 mmol/L CO2 22 LAB AGAP 9-18 mmol/L Anion Gap 15 LAB ALT 7-38 U/L ALT 23 LAB GFRAA eGFR- Amer. >60 LAB GFRNAA . eGFR-All Other Races >60 Result Comment: eGFR (Estimated GFR) Units of measure: mL/min/1.73 meters squared eGFR is derived from the reexpressed MDRD Study equation using the following parameters: serum creatinine, age, gender and race. The creatinine assay has been calibrated to be traceable to [employer]Web[employer]. An eGFR <60 mL/min/1.73m2 for >3 months is consistent with chronic kidney disease. Refer to KDOQI guidelines for clinical interpretation. In patients with unstable renal function, e.g. those with acute kidney injury, the eGFR may not accurately reflect actual GFR. Performed By: #### CMP #### [facility] [address] [place], [place] [address] PLAN OF CARE Observed: 12/16/2017 Status: COMPLETED Source: [facility] 7:28 PM [facility] REPOSITORY HNO ID: [id number] Author: Frantz Faith Alpayahaira Service: General Internal Medicine Author Type: Resident Type: Plan of Care Filed: 12/16/2017 7:43 PM Note Text: Went to bedside with medical student Chris Jarvis to discuss code status with Ms. Ugarte. Upon asking for her clarification of her earlier requested code status change, she stated her understanding was that she would receive chest compressions if we thought we would successfully resuscitate her, and the she would be intubated if we thought she would be extubated in a few days. She stated that if she were going to be in a persistent vegetative state, she would not want attempted compressions or intubation. Given her expressed wishes of attempted compressions and intubation for resuscitation and misunderstanding of DNR-CCA with DNI, I will defer changing her code status at this time. CASE MANAGEM Observed: 12/16/2017 Status: COMPLETED Source: [facility] 3:34 PM [facility] REPOSITORY HNO ID: [id number] Author: Brenda RodriguezRn) JINNY Sargent Service: Care Management Author Type: Registered Nurse Type: Care Mgt Progress Note Filed: 12/16/2017 3:34 PM Note Text: CARE MANAGEMENT PROGRESS NOTE SERVICE DATE: 12/16/2017 SERVICE TIME: 1534 LOS: 4 days Needs Prior to Discharge: Precertification;OT/PT Evaluation;Discharge Transportation;IV Antibiotics;Wound Care D/C date TBD. Assisted to complete advance directives and copy sent for scanning. PT WISHES TO BE A [id number] WITH DNI. Primary team paged with this info so that order can be written. Accepted by [facility]. Will need precert and BLS transport. Possible copat. SNF CANNOT provide the Veraflow wound vac. If pt goes on vac it will need to be a traditional vac. Please notify Case Management for any changes in skilled needs. Thank you. SIGNATURE: Brenda Sargent RN PATIENT NAME: Stephie Ugarte DATE: December 16, 2017 TIME: 3:34 PM PAGER/CONTACT #: [phone] [facility] Observed: 12/16/2017 Status: COMPLETED Source: [facility] 12:10 PM [facility] REPOSITORY HNO ID: [id number] Author: Cate (Rn) JINNY Eli Service: Healing Service Author Type: Registered Nurse Type: Allied Health Filed: 12/16/2017 2:30 PM Note Text: HEALING SERVICES THERAPY NOTE SERVICE DATE: 12/16/2017 SERVICE TIME: 1210 INTERVENTIONAL FOCUS: Emotional Support Visit With: Patient Urgency of Visit: Routine Type of Visit: Initial Visit Patient introduced to Healing Services available to them. Provided supportive community for pt who is alone. Created an environment of peace and calm using slow, soothing speech and a quiet, gentle, accepting presence to promote pt's healing. She shared the reasons for her admission. She shared about home and her family. Empathetic, active listening and therapeutic presence provided, allowing the patient to express her feelings. All questions answered and materials left at bedside. Re-visit from Healing Services Team: Yes. If requested. SIGNATURE: Cate Eli RN PATIENT NAME: Stephie Ugarte DATE: December 16, 2017 TIME: 2:29 PM PAGER/CONTACT #: [phone] COMP METABOLIC PANEL Collected: 12/16/2017 Status: F Source: [facility] 11:09 AM [facility] REPOSITORY TYPE CODE TESTS RESULT OUT OF REFERENCE UNITS RANGE LAB TP 6.3-8.0 g/dL Protein, Total 6.7 LAB ALB 3.9-4.9 g/dL Low Albumin 3.1 LAB CA 8.5-10.2 mg/dL Calcium, Total 8.8 LAB TBIL 0.2-1.3 mg/dL Bilirubin, Total 0.2 LAB ALKP 34-123 U/L Alkaline Phosphatase 80 LAB AST 13-35 U/L AST 17 LAB GLU 74-99 mg/dL Glucose 98 Result Comment: The [place] Diabetes Association (ADA) provides guidance for cutoff values for fasting glucose and random glucose. The ADA defines fasting as no caloric intake for at least 8 hours. Fas ting plasma glucose results between 100 to 125 mg/dL indicate increased risk for diabetes (prediabetes). Fasting plasma glucose results greater than or equal to 126 mg/dL meet the criteria for diagnosis of diabetes. In the absence of unequivocal hyperglycemia, results should be confirmed by repeat testing. In a patient with classic symptoms of hyperglycemia or hyperglycemic crisis, random plasma glucose results greater than or equal to 200 mg/dL meet the criteria for diagnosis of diabetes. Reference: Standards of Medical Care in Diabetes 2016, [place] [employer]. Diabetes Care. 2016.39(Suppl 1). LAB BUN 7-21 mg/dL BUN 14 LAB CRET 0.58-0.96 mg/dL Creatinine Low 0.55 LAB NA 136-144 mmol/L Sodium Low 133 LAB K 3.7-5.1 mmol/L Potassium 4.1 LAB CL 97-105 mmol/L Chloride Low 96 LAB CO2 22-30 mmol/L CO2 23 LAB AGAP 9-18 mmol/L Anion Gap 14 LAB ALT 7-38 U/L ALT 27 LAB GFRAA eGFR- Amer. >60 LAB GFRNAA . eGFR-All Other Races >60 Result Comment: eGFR (Estimated GFR) Units of measure: mL/min/1.73 meters squared eGFR is derived from the reexpressed MDRD Study equation using the following parameters: serum creatinine, age, gender and race. The creatinine assay has been calibrated to be traceable to IDMS. An eGFR <60 mL/min/1.73m2 for >3 months is consistent with chronic kidney disease. Refer to KDOQI guidelines for clinical interpretation. In patients with unstable renal function, e.g. those with acute kidney injury, the eGFR may not accurately reflect actual GFR. Performed By: #### CMP #### [facility] [employer] [address] [place], [place] [id number] Observed: 12/16/2017 Status: F Source: [facility] BLOOD CULTURE 11:08 AM [facility] REPOSITORY Culture Result - No growth 5 days Performed By: #### BLCUL #### [facility] [employer] [address] [place], [place] [address] CONSULT PROG Observed: 12/16/2017 Status: COMPLETED Source: [facility] 10:23 AM [facility] REPOSITORY HNO ID: [id number] Author: Denisse Osorio Service: Infectious Disease Author Type: Physician Type: Consult Progress Note Filed: 12/16/2017 4:53 PM Note Text: INFECTIOUS DISEASE CONSULT SERVICE PROGRESS NOTE Date: December 16, 2017 Patient Name: Stephie Ugarte Interval Events: -No acute events overnight -Patient remains afebrile and HDS -Neuro exam unchanged from yesterday -No diarrhea, reports prior BM -Painting removed yesterday, no urinary retention or incontinence at this time -Repeat blood cultures drawn MEDICATIONS Medications reviewed. Current hospital medications: sodium hypochlorite 0.125 % in empty bag Total Volume 960 mL topical irrigation 120 mL/hr IRRIGATION Q 3 and 1/2 HR acetaminophen 650 mg tab(s) (TYLENOL) 650 mg ORAL q 6 H PRN heparin 5,000 Units injection 5,000 Units SUBCUTANEOUS q 12 H vancomycin dosing and monitoring per pharmacy OTHER As Directed 0.9% NaCl 3-5 mL 3-5 mL INTRAVENOUS q 12 H oxyCODONE IR 5-10 mg tab(s) (ROXICODONE) 5-10 mg ORAL q 6 H PRN perflutren lipid microspheres 1.1 mg/mL 1.3 mL injection (DEFINITY) 1.3 mL INTRAVENOUS DIRECTED PRN lisinopril 10 mg tab(s) (ZESTRIL, PRINIVIL) 10 mg ORAL DAILY ondansetron (PF) 4 mg injection (ZOFRAN) 4 mg INTRAVENOUS q 6 H PRN vancomycin 1.25 g in D5W 250 mL (VANCOCIN) 1.25 g INTRAVENOUS q 12 HR EXAMINATION: BP 132/51 Pulse 77 Temp 36.3 ?C (97.4 ?F) (Oral) Resp 18 Wt 85.5 kg (188 lb 7.9 oz) SpO2 98% BMI 32.87 kg/m? GENERAL APPEARANCE:alert, in no acute distress SKIN: vac dressing in place over the buttock and mid thoracic wound HEAD/SINUSES: No significant findings. EYES: PERRLA, conjunctiva cleare NECK: Supple LUNGS: Clear to auscultation, No crackles. HEART: Regular rate and rhythm ABDOMEN: Soft, Non-tender, Nondistended, Normal bowel sounds EXTREMITIES: negative edema, no rash NEURO: Awake, alert and oriented x 3 -Motor strength 4/5 in the bilateral lower extremities. -R hip flexor weaker than R knee extensor - chronic -SILT over the bilateral lower extremities -Left leg 5/5 MSK/Back: Wound vac in place with no leaks. Suction site along the right inferolateral back ACCESS: peripheral IVs c/d/i LABORATORY DATA: WBC (k/uL) Date Value 12/15/2017 7.87 12/14/2017 7.79 12/13/2017 9.51 Hemoglobin (g/dL) Date Value 12/15/2017 9.3 12/14/2017 8.5 12/13/2017 8.7 Platelet Count (k/uL) Date Value 12/15/2017 463 12/14/2017 451 12/13/2017 442 Creatinine (mg/dL) Date Value 12/15/2017 0.59 12/14/2017 0.62 12/12/2017 0.61 MICROBIOLOGY DATA: reviewed IMAGING DATA: Films personally reviewed. ASSESSMENT: -Has hx of ?c spine hardware, lumbar laminectomy, b/l TKA, b/l RODGER. -Underwent spinal cord stimulator placement 11/13, per her daughter was healing ok, but at f/u appt wound was draining copious bloody fluid. Began feeling unwell, then become moribund. -Went to OSH--found to be MRSA bacteremia.. -Underwent stimulator removal 11/30, per pt's daughter wounds were sewn shut -Initially cleared MRSA , then relapsed ?per records -Was changed to daptomycin (NOT due to any intolerance of vancomycin) ultimely wounds becam more swollen--opened 12/11, with gross purulence per daughter, now packed. -Repeat MRI at [facility]--shows T2/3 epidural abscess with ?cord compression and pachymeningitis -Blood cultures positive for staph aureus, enterobacter - Enterobacter from single set blood culture without any change in her clinical status - afebrile. no central lines RECOMMENDATIONS: - Please continue vancomycin at this time - Ensure trough 15-25 - Zosyn discontinued yesterday - Repeat blood cultures obtained this morning - Obtain TTE - Monitoring for therapeutic and adverse effects to intravenous antibiotics. - Surgical intervention deferred at this time per neurosurgery - beside wound vac placement + antibiotics (plan to revise superficial skin closure once infection is clear). Case discussed with Dr. Osorio. Grey Elam MD Infectious Disease, PGY-1 Pager [phone] December 16, 2017 Events reviewed. Patient examined. Findings as outlined in the resident's note above. Hall elements verified. Relevant lab data, microbiology and imaging data reviewed. Relevant images personally reviewed. Agree with assessment and plan as outlined in the resident's note above. I was physically present for the critical portions of the service provided by the ID team. The management plan reflects my input. Denisse Osorio MD 72F from [place] transferred for recurrence of MRSA bacteremia and purulence from surgical site h/o c spine hardware placement lumbar stenosis s/p lumbar laminectomy, fusion bilateral TKA and bilateral RODGER SCS placement 11/13/2017 c/b infected SCS marked by copious bloody drainage from the surgical sites and mental status changes. Admitted to [facility] with MRSA bacteremia s/p SCS removal (including catheter) 11/30/2017 -- per Dr. Rutledge review - MRSA bacteremia cleared but relapsed per records. despite washout and daptomycin, noted to have gross purulence and dehiscence 12/11/2017 ? Now with relapsing MRSA bacteremia. Repeat MRI 12/13 reviewed with T2/3 epidural abscess and ?cord compression and pachymeningitis Suspected primary source - previous SCS site with purulence - s/p vac placement 12/15/2017 ? Enterobacter from single set blood culture without any change in her clinical status - afebrile. no central lines. Per daughter at bedside this morning patient is doing better compared to Thursday. She is more awake and more herself. her R shoulder pain is much improved and she can abduct up to 90 degrees without pain. no overlying redness/cellultis. Neuro exam unchanged. No urinary or bowel incontinence tolerating vancomycin ? continue vancomycin IV await repeat blood cultures monitor temperatures neuro checks TTE - may need to repeat MOSES if blood cx remain persistently positive Denisse Osorio MD PROGRESS Observed: 12/16/2017 Status: COMPLETED Source: [facility] 9:[address] [facility] [place] REPOSITORY HNO ID: [id number] Author: Kofi Quiñonez MD (Fel) Service: Neurosurgery Author Type: Fellow Type: Progress Notes Filed: 12/16/2017 9:30 AM Note Text: Spine Fellow Service Progress Note After 5 PM (1600) please page [phone]. Mon-Thu [phone] page Trae Bertrand CNP [phone] for Nathan Mosley Schlenk, Steinmetz, or Felicia pt's. Mon-Fri [phone] page Casey Francois PA-C [phone] for Larissa, Antione, Ayala, Gallo, or Rene pt's Attending: Dr. Hitesh Molina Location: H081 [id number]/[id number] Hospital Day: 5 * No surgery found * S/P: Placement of bedside [place] yesterday ASSESSMENT: Clinically stable. NO new pain or changes in exam. Will cont to address infected wounds with [place] exchanges. Cont ABx per ID -Cont with [place] care for 2 weeks -Can follow up as outpatient with Dr. Coleman to assess wounds at that time -Can Abx per ID, appreciate assistance -Cont neurologic checks daily, changes may be indicative of worsening disease. -Will follow peripherally, please call with questions INTERVAL HPI: is a 72 year old female. Overnight events noted: none. OBJECTIVE: LABS: CBC: Recent Labs 12/15/17 1544 12/14/17 0538 12/13/17 2051 12/13/17 0755 12/12/17 0616 WBC 7.87 7.79 9.51 7.65 9.16 HB 9.3* 8.5* 8.7* 6.6* 7.4* HCT 28.6* 26.3* 26.8* 20.4* 23.0* PLT 463* 451* 442* 485* 565* MCV 84.6 84.3 83.8 84.3 85.5 RDWCV 14.6 14.1 14.1 14.6 14.6 NEUTP -- 68.9 -- 69.7 73.5 ABSNEUT -- 5.37 -- 5.34 6.73 LYMPHP -- 16.3 -- 16.5 15.2 MONOP -- 10.9 -- 10.7 9.1 EODINP -- 3.1 -- 2.4 1.7 COAG: Recent Labs 12/12/17 0616 APTT 23.5 INR 0.9 BMP: Recent Labs 12/15/17 0547 12/14/17 0538 12/12/17 0616 GLUC 100* 110* 100* NA 133* 131* 135* K 3.7 4.2 4.3 CHLOR 95* 93* 99 CO2 23 23 23 ANION 15 15 13 BUN 15 13 19 CREAT 0.59 0.62 0.61 CHEM: Recent Labs 12/15/17 0547 12/14/17 0538 12/12/17615 ALB 2.9* 2.7* 2.6* TPROT 6.4 6.0* 6.1* CA 8.7 8.0* 8.6 MG -- -- 2.1 P -- -- 3.8 HEPATIC: Recent Labs 12/15/17 0547 12/14/17 0538 12/12/1716 ALKPHOS 75 68 73 ALT 28 23 32 AST 22 20 19 TBILI 0.2 0.3 0.2 URINALYSIS:No results for input(s): PH, SPGR, UGLUC, UBILI, UKET, UHB, UPROT, UROBIL, UWBC, LEUKEST, SSA in the last 168 hours. Invalid input(s): NITR CARDIAC: Recent Labs 12/12/17615 CKMBP CK MB % not reported with CK <100 U/L. HbA1C: Hemoglobin A1C (%) Date Value 12/15/2014 5.3 CRP: Recent Labs 12/12/17615 CRP 5.9* ESR: No results for input(s): ESR in the last 168 hours. Blood Glucose Checks: Vitamin D: Vitamin D 25 Hydroxy (ng/mL) Date Value 12/15/2014 27.6 CrCl cannot be calculated (Unknown ideal weight.). Intake/Output Summary (Last 24 hours) at 12/16/17 09 Last data filed at 12/16/17 0600 Gross per 24 hour Intake 1810 ml Output 400 ml Net 1410 ml 12/15/17 1723 12/15/17 2133 12/16/17 0208 12/16/17 0607 BP: 126/53 147/58 151/55 152/53 Pulse: 82 66 70 66 Resp: Temp: 36.6 ?C (97.8 ?F) 36.5 ?C (97.7 ?F) 36.8 ?C (98.2 ?F) 36.7 ?C (98.1 ?F) TempSrc: Oral Oral Oral Oral SpO2: 98% 96% 97% 99% Weight: 85.5 kg (188 lb 7.9 oz) General: Appears stated age, well built, in no apparent distress. Skin: Wound vacs in place Musculoskeletal: Motor: UE BICEPS TRICEPS DELTS Wrist Ext Wrist Flex Printer'S Devil HI R 5/5 5/5 5/5 5/5 5/5 5/5 5/5 L 5/5 5/5 5/5 5/5 5/5 5/5 5/5 LE Hip Flex Knee Flex Knee Extend Plantarflex Dorsiflex EHL R 4+/5 4+/5 4+/5 5/5 5/5 5/5 L 5/5 5/5 5/5 5/5 5/5 5/5 [place] Tract Signs: No clonus, Babinski, or Hoffmans. SIGNATURE: Kofi Quiñonez MD PATIENT NAME: Stephie Ugarte DATE: 12/16/2017 TIME: 9:18 AM PAGER/PHONE: Dr. Mcallister or [email or web address] PROGRESS Observed: 12/16/2017 Status: COMPLETED Source: [facility] 7:23 AM [facility] REPOSITORY [facility] ID: [id number] Author: Hitesh Molina Service: General Internal Medicine Author Type: Physician Type: Progress Notes Filed: 12/16/2017 1:59 PM Note Text: MEDICAL STUDENT PROGRESS NOTE INTERNAL MEDICINE SERVICE DATE: 12/16/2017 SERVICE TIME: 7:23 AM Attending Note This note was generated by a MEDICAL STUDENT working under the supervision of an Attending Physician and is not authenticated until addended and cosigned by the Attending Physician at the beginning of this note. SUBJECTIVE INTERVAL HPI: No overnight events. VSS. No pain. Has been urinating more frequently. No dysuria. Medications: Current hospital medications: sodium hypochlorite 0.125 % in empty bag Total Volume 960 mL topical irrigation 120 mL/hr IRRIGATION Q 3 and 1/2 HR acetaminophen 650 mg tab(s) (TYLENOL) 650 mg ORAL q 6 H PRN heparin 5,000 Units injection 5,000 Units SUBCUTANEOUS q 12 H vancomycin dosing and monitoring per pharmacy OTHER As Directed 0.9% NaCl 3-5 mL 3-5 mL INTRAVENOUS q 12 H oxyCODONE IR 5-10 mg tab(s) (ROXICODONE) 5-10 mg ORAL q 6 H PRN perflutren lipid microspheres 1.1 mg/mL 1.3 mL injection (DEFINITY) 1.3 mL INTRAVENOUS DIRECTED PRN lisinopril 10 mg tab(s) (ZESTRIL, PRINIVIL) 10 mg ORAL DAILY ondansetron (PF) 4 mg injection (ZOFRAN) 4 mg INTRAVENOUS q 6 H PRN vancomycin 1.25 g in D5W 250 mL (VANCOCIN) 1.25 g INTRAVENOUS q 12 HR OBJECTIVE BP 152/53 Pulse 66 Temp 36.7 ?C (98.1 ?F) (Oral) Resp 18 Wt 85.5 kg (188 lb 7.9 oz) SpO2 99% BMI 32.87 kg/m? PHYSICAL EXAM: General appearance: NAD. No pain. Wound vacuum draining serosanguinous fluid. Cardiac: RRR. Pulm: CTA. Neuro: Sensation and motor function grossly intact/stable. Wounds: open wound since admission. Does not look infected. R ankle stage 1 ulcer since admission. DATA: Diagnostic tests reviewed for today's visit: Most recent labs. ASSESSMENT AND PLAN: Stephie Ugarte is a 72F with persistent MRSA bacteremia 2/2 thoracolumbar and R gluteal surgical site infection of spinal stimulator removed 11/30 s/p IANDD of both pocket and leads site 12/11 at OSH. Presented to [facility] bacteremic. PMH of HTN and bilateral TKA and RODGER. ? Persistent MRSA Bacteremia Afebrile. Discordant blood cx from 12/13 with +ve Enterobacter. Remains clinically stable/unchanged. Echo negative for vegations - vancomycin w/ goal trough 15-25 - received 1x Zosyn and 1x Ceftriaxone for enterobacter coverage --> discontinued --> blood cx drawn this AM - ID following ? Open wounds - thoracolumbar and right gluteal region wound vacuum placed yesterday. Does not look infected. - expected to heal by secondary intention. Spine may repair superficial wound. ? 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 No evidence of urinary retention or incontinence. - neuro checks, monitoring pain or thoracic myelopathy - spine service following - PT consult, no restrictions ? Essential hypertension - lisinopril 10 mg ? Anemia uptrending Hgb Hemolytic w/u negative. Mixed anemia of chronic disease + iron deficiency. Given current inflammatory state, iron supplementation not indicated. - monitor VTE prophylaxis: Heparin 5k BID SIGNATURE: Chris Jarvis Ms PATIENT NAME: Stephie Ugarte DATE: December 16, 2017 TIME: 7:23 AM PAGER: [facility] STAFF PHYSICIAN NOTE OF PERSONAL INVOLVEMENT IN CARE I have reviewed the progress note obtained and documented by the resident and I personally participated in the hall components. I have discussed the case and management of the patient's care. The following comments revise or confirm relevant hall components of their note. IMPRESSION: This is a 72 year old female with chronic back pain s/p spinal cord stimulator placement 11/13/2017 complicated with MRSA bacteremia s/p stimulator removal 11/30 who presents as a transfer with persistent MRSA bacteremia with out sepsis ?Has history of bilateral TKA and RODGER ? Found to have T2/3 epidural abscess on MRI with ? cord compression and pachymeningitis Seen by NSGY no surgical intervention at this time suggested wound vac placement and continue antibiotics Surface echocardiogram w/o evidence of IE ? Doing well sitting on chair NAD afebrile Neurological exam unchanged ? PLAN:?? Continue vancomycin Follow repeat blood cultures ?ID following ?Monitor any neurologic deficit change ? Hitesh Molina MD December 16, 2017 1:58 PM CBC Collected: 12/15/2017 Status: F Source: [facility] 3:44 PM [facility] REPOSITORY TYPE CODE TESTS RESULT OUT OF REFERENCE UNITS RANGE LAB WBC 3.70-11.00 k/uL WBC 7.87 LAB RBC 3.90-5.20 m/uL Low RBC 3.38 LAB HGB 11.5-15.5 g/dL Low Hemoglobin 9.3 LAB HCT 36.0-46.0 % Low Hematocrit 28.6 LAB MCV 80.0-100.0 fL MCV 84.6 LAB MCH 26.0-34.0 pG MCH 27.5 LAB MCHC 30.5-36.0 g/dL MCHC 32.5 LAB RDWCV 11.5-15.0 % RDW-CV 14.6 LAB PLTCT 150-400 k/uL Platelet High Count 463 LAB MPV 9.0-12.7 fL Low MPV 8.7 LAB ABSNUC <0.01 k/uL Absolute nRBC <0.01 Performed By: #### CBC #### [facility] [address] [place], [place] [address] CASE MANAGEM Observed: 12/15/2017 Status: COMPLETED Source: [facility] 3:24 PM [facility] REPOSITORY HNO ID: [id number] Author: Brenda Chase (Rn) JINNY Sargent Service: Care Management Author Type: Registered Nurse Type: Care Mgt Progress Note Filed: 12/15/2017 3:24 PM Note Text: CARE MANAGEMENT PROGRESS NOTE SERVICE DATE: 12/15/2017 SERVICE TIME: 1524 LOS: 3 days Needs Prior to Discharge: Precertification;OT/PT Evaluation;Discharge Transportation;IV Antibiotics;Wound Care D/C date TBD. Accepted by [facility]. Will need precert and BLS transport. Possible copat. Has a Veraflow wound vac in place at this time. Waiting for facility to confirm if they can provide this or not. Please notify Case Management for any changes in skilled needs. Thank you. SIGNATURE: Brenda Sargent RN PATIENT NAME: Stephie Ugarte DATE: December 15, 2017 TIME: 3:24 PM PAGER/CONTACT #: [phone] ALLIED HEALTH Observed: 12/15/2017 Status: COMPLETED Source: [facility] 1:38 PM [facility] REPOSITORY HNO ID: [id number] Author: Hayder Watson) Myriam, Student Service: Spiritual Care Author Type: Back Up Worker Type: Allied Health Filed: 12/15/2017 1:40 PM Note Text: SPIRITUALCARE Spiritual Care Visit- Brief Note Name: Stephie Ugarte Date: December 15, 2017 Notes: Patient refused spirituall care. Back Up Worker Signature: Hayder Miguel, Back Up Worker Manager Business Information To contact the Spiritual Care Department: Please call [phone] or Page the On-Call Back Up Worker at pager [phone] Thank you for the opportunity to be of service. This is an electronically created document. IF PRINTED, PLEASE DO NOT REMOVE FROM THE CHART OR MODIFY PRINTED COPY. THERAPY NT Observed: 12/15/2017 Status: COMPLETED Source: [facility] 12:41 PM [facility] REPOSITORY O ID: [id number] [facility]: [facility] Service: Physical Therapy Author Type: Slip Mixer Type: Therapy (PT/OT/Speech/Resp) Filed: 12/15/2017 12:51 PM Note Text: Attestation signed by Khang Martinez at 12/15/2017 5:50 PM I reviewed and agree with the documentation corresponding to this therapy visit. SIGNATURE: Khang Martinez, PT DATE: December 15, 2017 TIME: 5:50 PM Physical Therapy Treatment SERVICE DATE: 12/15/2017 SERVICE TIME: 1152 to 1230 ROOM: [place] [address] Recommended Discharge Disposition: Subacute/SNF Justification For Post Acute Needs: Good sitting tolerance;Living the community premorbidly;Motivated;Willing to participate;Anticipate that patient will require daily (5x/wk) skilled therapy in a post-acute facility setting at the time of acute hospital discharge Recommended Discharge Equipment: To Be Determined PT Recommendations to Nursing: Transfer to/from chair;OOB for Meals;Sit at edge of bed;With assist of 2 people Device: Wheeled Walker PT 6 Clicks Score: 16 Precautions/Activity Restrictions: Fall Risk;Lines/Tubes/Drains;Spine ASSESSMENT : Patient presents with decreased functional mobility, decreased endurance and decreased balance. Patient required extra time for all activities and limited ambulation due to wound vac placed today. Patient required min-moderate assist for all functional mobility with cues for proper technique. Pt requires further skilled PT intervention during current hospital stay for appropriate activity and exercise dosing and safe progression with all mobilization to improve overall functional capacity and allow for a safe d/c. Patient Disposition at Start of Session: Supine in Bed;Call Nguyen in Reach Patient Disposition at End of Session: OOB in Chair;Call Nguyen in Reach (nursing aware) Tolerated Full Session Physical Therapy Problem List: Education Deficit;Safety Deficits;Pain;Decreased Activity Tolerance;Impaired Self Care;Decreased Range Of Motion;Decreased Strength;Functional Mobility Impairment;Balance Impaired Patient /Caregiver Goals: Walk;Go To Rehab Goals for Plan of Care: Able to perform HEP with: Modified Independent Rolling with: Modified Independent Transfer supine to/from sit with: Modified Independent Transfer sit to/from stand with: Modified Independent Ambulate with: Supervision Distance: 150 Device: Wheeled Walker Ambulate up and down steps with: Contact Guard Assistance Number of steps: 1 Device: Other: See Comment (LRAD) Transfer: Mod I with LRAD Goal: Pt will ascend/descend inclined ramp with supervision assist with LRAD to simulate home going environment. Progress Toward Goals: Progressing as expected Rehab Potential: Good PLAN: Treatment Frequency (times per week): 3 Current admission Treatment Interventions: Education;Self Care / Home Management;Energy Conservation Training;Joint Mobility;Strengthening;Functional Mobility Training;Balance Training;Neuromuscular Re-education Plan of Care developed with: Patient TREATMENT INTERVENTIONS: Therapy Diagnosis: Reduced mobility-other Interventions Provided: Therapeutic Activity (68161) Therapeutic Activity (39516) Treatment Minutes: 38 3 units Skilled Intervention(s): Instructed patient in log roll technique Instructed patient in supine to sit pushing with upper extremities to sit up Instruction in sit to stand technique with proper hand placement and body positioning at edge of bed/chair Instruction in stand to sit technique with lower extremities touching chair/bed and reaching back for surface Scooting to EOB with moderate assist with cues for weight shifting and advancing opposite leg forward Education with importance of functional mobility Transfer training from bed to BSC, BSC to chair with walker with assist and cues for walker management, foot placement, body positioning and balance. Extra time for lines and tube management. Reviewed seated exercises in chair with patient with cues for performing 2-3x per day. Total Timed Code Treatment Minutes: 38 Total Treatment Time (minutes): 38 FUNCTIONAL G CODE: PT 6 Clicks Score: 16 (12/15/17 1152) Mobility: Walking and Moving Around Current Status (G8978): CK (12/14/17 09) Mobility: Walking and Moving Around Goal Status (G8979): CJ (12/14/17900) Based on clinical assessment and the score on the 6 Clicks Functional Assessment Tool, the G code and corresponding severity modifiers are documented above. SUBJECTIVE: Current Hospital Course: Chart reviewed; wound vac placed today, per nursing okay to get up in chair Reason for Physical Therapy Consult : new functional deficit not expected to spontaneously improve and PT eval Patient Report: Patient requesting to use BSC. Home Environment Patient Lives With: Self/Alone;Other: See Comment (neighbor and family nearby assists PRN) Assistance Available: PRN (neighbor and family nearby) Entry To Home: No Stairs;Ramp Number Of Stairs To Bed/Bath: 0 (1 level) Tub/Shower Type: walk in shower Laundry: 1st floor Equipment Owned: Grab Bars-Shower;Wheeled Walker;Wheelchair;Cane;Commode-Raised Prior Functional Level: Within Functional Limits;Other: See Comment Prior Functional Level Comments: Reports Ind with ADL's and IADL's, + driving, OBJECTIVE: CURRENT FUNCTIONAL STATUS: Current Functional Mobility Assist Level Additional Information Rolling Minimal Assistance Supine to Sit Moderate Assistance Sit to Supine (up in chair) Scooting Moderate Assistance Sit to Stand Minimal Assistance Stand to Sit Minimal Assistance Bed to Chair Toilet/Commode Minimal Assistance Gait Minimal Assistance Gait Device: Wheeled Walker Gait Distance (feet): 5', 7' Stairs Curb Step Car Transfer General Gait Deviations: [place] decreased;Step length decreased;Flexed trunk posture;Wide base of support Balance: Static Sitting;Dynamic Sitting;Static Standing;Dynamic Standing Static Sitting Balance: Supervision Dynamic Sitting Balance: Stand By Assistance Static Standing Balance: Contact Guard Assistance Dynamic Standing Balance: Minimal Assistance Please see discipline specific clinical documentation flowsheet for complete details for this therapy evaluation/treatment. SIGNATURE: Romulo Martinez PTA PATIENT NAME: Stephie Ugarte DATE: December 15, 2017 TIME: 12:41 PM CONSULT PROG Observed: 12/15/2017 Status: COMPLETED Source: [place] 10:45 AM [facility] REPOSITORY HNO ID: [id number] Author: Denisse Osorio Service: Infectious Disease Author Type: Physician Type: Consult Progress Note Filed: 12/15/2017 4:35 PM Note Text: INFECTIOUS DISEASE CONSULT SERVICE PROGRESS NOTE Date: December 14, 2017 Patient Name: Stephie Ugarte Interval Events: -Patient afebrile and HDS -Vac/dressing changed today by wound care -Blood cultures positive for staph aureus, enterobacter (repeat cultures will be obtained) she had a formed Bm this morning no new symptoms neuro exam is overall unchanged from yesterday no rash MEDICATIONS Medications reviewed. Current hospital medications: sodium hypochlorite 0.125 % in empty bag Total Volume 960 mL topical irrigation 120 mL/hr IRRIGATION Q 3 and 1/2 HR heparin 5,000 Units injection 5,000 Units SUBCUTANEOUS q 12 H vancomycin dosing and monitoring per pharmacy OTHER As Directed 0.9% NaCl 3-5 mL 3-5 mL INTRAVENOUS q 12 H oxyCODONE IR 5-10 mg tab(s) (ROXICODONE) 5-10 mg ORAL q 6 H PRN perflutren lipid microspheres 1.1 mg/mL 1.3 mL injection (DEFINITY) 1.3 mL INTRAVENOUS DIRECTED PRN lisinopril 10 mg tab(s) (ZESTRIL, PRINIVIL) 10 mg ORAL DAILY ondansetron (PF) 4 mg injection (ZOFRAN) 4 mg INTRAVENOUS q 6 H PRN vancomycin 1.25 g in D5W 250 mL (VANCOCIN) 1.25 g INTRAVENOUS q 12 HR EXAMINATION: BP (!) 108/48 Pulse 73 Temp 36.3 ?C (97.4 ?F) (Oral) Resp 20 Wt 80.7 kg (177 lb 14.6 oz) SpO2 93% BMI 31.02 kg/m? GENERAL APPEARANCE:alert, in no acute distress SKIN: vac dressing in place over the buttock and mid thoracic wound HEAD/SINUSES: No significant findings. EYES: PERRLA, conjunctiva cleare NECK: Supple LUNGS: Clear to auscultation, No crackles. HEART: Regular rate and rhythm ABDOMEN: Soft, Non-tender, Nondistended, Normal bowel sounds EXTREMITIES: negative edema NEURO: Awake, alert and oriented x 3 -Motor strength 4/5 in the bilateral lower extremities. -R hip flexor weaker than R knee extensor - chronic -SILT over the bilateral lower extremities -Left leg 5/5 MSK/Back: Wound vac in place with no leaks. Suction site along the right inferolateral back Uro: painting in place- removed this afternoon no rash no picc line peripheral IVs c/d/i LABORATORY DATA: WBC (k/uL) Date Value 12/14/2017 7.79 12/13/2017 9.51 12/13/2017 7.65 Hemoglobin (g/dL) Date Value 12/14/2017 8.5 12/13/2017 8.7 12/13/2017 6.6 Platelet Count (k/uL) Date Value 12/14/2017 451 12/13/2017 442 12/13/2017 485 Creatinine (mg/dL) Date Value 12/15/2017 0.59 12/14/2017 0.62 12/12/2017 0.61 MICROBIOLOGY DATA: reviewed IMAGING DATA: Films personally reviewed. ASSESSMENT: -Has hx of ?c spine hardware, lumbar laminectomy, b/l TKA, b/l RODGER. -Underwent spinal cord stimulator placement 11/13, per her daughter was healing ok, but at f/u appt wound was draining copious bloody fluid. Began feeling unwell, then become moribund. -Went to OSH--found to be MRSA bacteremia.. -Underwent stimulator removal 11/30, per pt's daughter wounds were sewn shut -Initially cleared MRSA , then relapsed ?per records -Was changed to daptomycin (NOT due to any intolerance of vancomycin) ultimely wounds becam more swollen--opened 12/11, with gross purulence per daughter, now packed. -Repeat MRI at [facility]--shows T2/3 epidural abscess with ?cord compression and pachymeningitis -Blood cultures positive for staph aureus, enterobacter RECOMMENDATIONS: -Please continue vancomycin at this time (ensure trough 15-25) -Please discontinue zosyn at this time - Obtain repeat blood cultures tomorrow morning -Monitoring for therapeutic and adverse effects to intravenous antibiotics. -Surgical intervention deferred at this time per neurosurgery - beside wound vac placement + antibiotics (plan to revise superficial skin closure once infection is clear). Case discussed with Dr. Osorio. Grey Elam MD Infectious Disease, PGY-1 Pager [phone] December 15, 2017 Events reviewed. Patient examined. Findings as outlined in the resident's note above. Hall elements verified. Relevant lab data, microbiology and imaging data reviewed. Relevant images personally reviewed. Agree with assessment and plan as outlined in the resident's note above. I was physically present for the critical portions of the service provided by the ID team. The management plan reflects my input. Denisse Osorio MD 72F from [place] transferred for recurrence of MRSA bacteremia and purulence from surgical site h/o c spine hardware placement lumbar stenosis s/p lumbar laminectomy, fusion bilateral TKA and bilateral RODGER SCS placement 11/13/2017 c/b infected SCS marked by copious bloody drainage from the surgical sites and mental status changes. Admitted to [facility] with MRSA bacteremia s/p SCS removal (including catheter) 11/30/2017 -- per Dr. Rutledge review - MRSA bacteremia cleared but relapsed per records. despite washout and daptomycin, noted to have gross purulence and dehiscence 12/11/2017 ? Now with relapsing MRSA bacteremia. Repeat MRI 12/13 reviewed with T2/3 epidural abscess and ?cord compression and pachymeningitis Suspected primary source - previous SCS site with purulence that will need I and D and vac placement Enterobacter from single set blood culture without any change in her clinical status - afebrile. no central lines. I talked to primary team this am - her wounds under the vac dressing have been reported to be clean and without active purulence. Neuroexam unchanged and stable. continue vancomycin IV hold off further doses of zosyn for now (got a single dose) and recheck blood cultures monitor temperatures Denisse Osorio MD ALLIED HEALTH Observed: 12/15/2017 Status: COMPLETED Source: [facility] 10:[address] [facility] [place] REPOSITORY HNO ID: [id number] Author: Kaz (First Officer) Service: Wound/Ostomy Author Type: Clinical Nurse Specialist Type: Allied Health Filed: 12/15/2017 10:55 AM Note Text: This is a note of medical necessity for wound vac treatment. WOUND OSTOMY INPATIENT PROGRESS NOTES Name: Stephie Ugarte Date: December 15, 2017 S: INTERVAL HPI and PERTINENT ROS: This is a 72 year old female with MRSA bacteremia source - infected nerves stimulator and battery. MRI at OSHshowing concerns of edema around spinal cord. She presents with explanted stimulator wound right butticks and thoracolumbar wound from lead wires for NPWT assessment / application O: MEDICATIONS: Current hospital medications: piperacillin-tazobactam 3.375 g in dextrose (iso-osmotic) 50 mL (ZOSYN) 3.375 g INTRAVENOUS q 6 H heparin 5,000 Units injection 5,000 Units SUBCUTANEOUS q 12 H vancomycin dosing and monitoring per pharmacy OTHER As Directed 0.9% NaCl 3-5 mL 3-5 mL INTRAVENOUS q 12 H oxyCODONE IR 5-10 mg tab(s) (ROXICODONE) 5-10 mg ORAL q 6 H PRN perflutren lipid microspheres 1.1 mg/mL 1.3 mL injection (DEFINITY) 1.3 mL INTRAVENOUS DIRECTED PRN lisinopril 10 mg tab(s) (ZESTRIL, PRINIVIL) 10 mg ORAL DAILY ondansetron (PF) 4 mg injection (ZOFRAN) 4 mg INTRAVENOUS q 6 H PRN vancomycin 1.25 g in D5W 250 mL (VANCOCIN) 1.25 g INTRAVENOUS q 12 HR PHYSICAL EXAM: BP 132/55 Pulse 75 Temp 36.3 ?C (97.3 ?F) (Oral) Resp 18 Wt 80.7 kg (177 lb 14.6 oz) SpO2 95% BMI 31.02 kg/m? Intake/Output Summary (Last 24 hours) at 12/15/17 1037 Last data filed at 12/15/17 0800 Gross per 24 hour Intake 1080 ml Output 200 ml Net 880 ml Date 12/15/17 0700 - 12/16/17 0659 Shift 7350-6177 5712-6814 8535-4821 24 Hour Total I N T A K E PO 480 480 Shift Total 480 480 O U T P U T Shift Total Weight (kg) 80.7 80.7 80.7 80.7 WOUND CHARACTERISTICS Type: Surgical Duration of wound in weeks: 1 Measurements: Thoracolumbar: 4cm x 1.5cm x 3.2cm with 3cm undermine at 1300 Gluteal: 1cm x 7cm x 3.3cm with undermining 6.3cm @ 1200 - 3cm @ 0200 - 4.4cm @ 0600 Is there exudate present: Yes packing with creamy serosang Prior therapies attempted: Wet to Dry Nutritional status effecting wound healing: No Pre albumin level obtained: No results found for this basename: PREALB:2 LABS CBC, Coags, BMP, Mg, Phos Recent Labs 12/15/17 0547 12/14/17 0538 12/13/17205012/13/17 0755 WBC -- 7.79 9.51 7.65 HB -- 8.5* 8.7* 6.6* HCT -- 26.3* 26.8* 20.4* PLT -- 451* 442* 485* NA 133* 131* -- -- K 3.7 4.2 -- -- CHLOR 95* 93* -- -- CO2 23 23 -- -- BUN 15 13 -- -- CREAT 0.59 0.62 -- -- GLUC 100* 110* -- -- CA 8.7 8.0* -- -- ASSESSMENT and PLAN of Care: Both wounds are clean with 100% viable tissue, periwound intact, edges flat, margins clean, no odor, no epibole, no overt signs of infection, labs conducive for wound healing Goal: - Exudate mgmt - bioburden mgmt - pain mgmt - avoid wound cross contamination - optimize nutrition - secondary intention Plan: - Veraflow Dakins 0.125% - 120cc - 10 min soak - 3.5 hour VAC cycle - bridge wounds - dressing change Tues and Fri - nutrition to support wound healing / energy needs - aggressive off loading. Minimize time on back - WOC nursing to perform wound care - d/w Yesica Mcallister MD Intervention: Pt was placed in left lateral recumbent position. Wounds cleansed soap and water. Skin barrier applied to periwounds extending to right lateral trunk for bridging. Single port veraflow foam bridged from trunk into inferior wound then secured. Additional foam inserted into superior wound then bridged. Veraflow initiated at -125mmHg continuous with good seal. Veraflow initiated with NS 120cc with good seal. Procedure tolerated well without verbalized pain or need for additional pain medications SIGNATURE: Kaz NASRA Luz.WEB PRESSMAN PAGER: [phone] *A review of daily goals, interventions, and plan of care with the multidisciplinary team and patient has been conducted. The patient?s concerns have been addressed and he/she agrees to proceed with today?s plan of care. PROGRESS Observed: 12/15/2017 Status: COMPLETED Source: [facility] 8:21 AM [facility] REPOSITORY [facility] ID: [id number] Author: Hitesh Molina Service: General Internal Medicine Author Type: Physician Type: Progress Notes Filed: 12/15/2017 2:46 PM Note Text: MEDICAL STUDENT PROGRESS NOTE INTERNAL MEDICINE SERVICE DATE: 12/15/2017 SERVICE TIME: 8:22 AM Attending Note This note was generated by a MEDICAL STUDENT working under the supervision of an Attending Physician and is not authenticated until addended and cosigned by the Attending Physician at the beginning of this note. SUBJECTIVE INTERVAL HPI: No overnight events. VSS. No Fecal and urinary continence, no signs of retention since Painting removed yesterday. Able to walk to bathroom and back. Medications: Current hospital medications: piperacillin-tazobactam 3.375 g in dextrose (iso-osmotic) 50 mL (ZOSYN) 3.375 g INTRAVENOUS q 6 H heparin 5,000 Units injection 5,000 Units SUBCUTANEOUS q 12 H vancomycin dosing and monitoring per pharmacy OTHER As Directed 0.9% NaCl 3-5 mL 3-5 mL INTRAVENOUS q 12 H oxyCODONE IR 5-10 mg tab(s) (ROXICODONE) 5-10 mg ORAL q 6 H PRN perflutren lipid microspheres 1.1 mg/mL 1.3 mL injection (DEFINITY) 1.3 mL INTRAVENOUS DIRECTED PRN lisinopril 10 mg tab(s) (ZESTRIL, PRINIVIL) 10 mg ORAL DAILY ondansetron (PF) 4 mg injection (ZOFRAN) 4 mg INTRAVENOUS q 6 H PRN vancomycin 1.25 g in D5W 250 mL (VANCOCIN) 1.25 g INTRAVENOUS q 12 HR OBJECTIVE BP 140/52 Pulse 65 Temp 36.3 ?C (97.3 ?F) (Oral) Resp 18 Wt 80.7 kg (177 lb 14.6 oz) SpO2 95% BMI 31.02 kg/m? PHYSICAL EXAM: General appearance: NAD. Resp: CTA. Cardiac: RRR Neuo: no pain. Sensation, motor function grossly intact. No signs of urinary retention. DATA: Diagnostic tests reviewed for today's visit: 12/13 11:35 collected Blood cx #1 +ve enterobacter + GNB + GPC #2 no growth 1 day ASSESSMENT AND PLAN: Stephie Ugarte is a 72F with persistent MRSA bacteremia 2/2 thoracolumbar and R gluteal surgical site infection of spinal stimulator removed 11/30 s/p IANDD of both pocket and leads site 12/11 at OSH. Vitals and labs are stable. ? MRSA Bacteremia Afebrile. Discordant blood cx from 12/13. Cx from 12/12 +ve MRSA prelim result. - vancomycin w/ goal trough - - received 1x Zosyn and 1x Ceftriaxone for enterobacter coverage --> discontinued --> blood cx tomorrow AM - ID following ? Open wounds - thoracolumbar and right gluteal region - wound vacuum placed today. Does not look infected. - expected to heal by secondary intention. Spine may repair superficial wound. ? 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 No evidence of urinary retention or incontinence. - neuro checks - Spine service pending pain or thoracic myelopathy before surgical intervention - spine service following - PT consult, no restrictions ? Essential hypertension - lisinopril 10 mg ? Anemia Hemolytic w/u negative. Mixed anemia of chronic disease + iron deficiency. Given current inflammatory state, iron supplementation not indicated. - monitor SIGNATURE: Chris Jarvis Ms PATIENT NAME: Stephie Ugarte DATE: December 15, 2017 TIME: 8:22 AM PAGER: [facility] STAFF PHYSICIAN NOTE OF PERSONAL INVOLVEMENT IN CARE I have reviewed the history and physical examination obtained and documented by the student and I personally participated in the hall components. I have discussed the case and management of the patient's care. The following comments revise or confirm relevant hall components of their note. IMPRESSION: This is a 72 year old female with chronic back pain s/p spinal cord stimulator placement 11/13/2017 complicated with MRSA bacteremia s/p stimulator removal 11/30 who presents as a transfer with persistent MRSA bacteremia. Has history of bilateral TKA and RODGER ? Found to have T2/3 epidural abscess on MRI with ? cord compression and pachymeningitis Seen by NSGY no surgical intervention at this time suggested wound vac placement and continue antibiotics surface echocardiogram w/o evidence of IE ? Doing well wound vac placed NAD afebrile had a single blood culture with 12/13 with enterobacter - unclear source or significance was given zosyn and ceftriaxone ? PLAN: Continue vancomycin Repeat blood cultures ID following discussed with Dr Osorio Monitor any neurologic deficit VTE prophylaxis with heparin SQ Hitesh Molina MD December 15, 2017 2:45 PM COMP METABOLIC PANEL Collected: 12/15/2017 Status: F Source: [facility] 5:47 AM [facility] REPOSITORY TYPE CODE TESTS RESULT OUT OF REFERENCE UNITS RANGE LAB TP 6.3-8.0 g/dL Protein, Total 6.4 LAB ALB 3.9-4.9 g/dL Low Albumin 2.9 LAB CA 8.5-10.2 mg/dL Calcium, Total 8.7 LAB TBIL 0.2-1.3 mg/dL Bilirubin, Total 0.2 LAB ALKP 34-123 U/L Alkaline Phosphatase 75 LAB AST 13-35 U/L AST 22 LAB GLU 74-99 mg/dL Glucose High 100 Result Comment: The [place] Diabetes Association (ADA) provides guidance for cutoff values for fasting glucose and random glucose. The ADA defines fasting as no caloric intake for at least 8 hours. Fas ting plasma glucose results between 100 to 125 mg/dL indicate increased risk for diabetes (prediabetes). Fasting plasma glucose results greater than or equal to 126 mg/dL meet the criteria for diagnosis of diabetes. In the absence of unequivocal hyperglycemia, results should be confirmed by repeat testing. In a patient with classic symptoms of hyperglycemia or hyperglycemic crisis, random plasma glucose results greater than or equal to 200 mg/dL meet the criteria for diagnosis of diabetes. Reference: Standards of Medical Care in Diabetes 2016, [place] Diabetes Association. Diabetes Care. 2016.39(Suppl 1). LAB BUN 7-21 mg/dL BUN 15 LAB CRET 0.58-0.96 mg/dL Creatinine 0.59 LAB NA 136-144 mmol/L Sodium Low 133 LAB K 3.7-5.1 mmol/L Potassium 3.7 LAB CL 97-105 mmol/L Chloride Low 95 LAB CO2 22-30 mmol/L CO2 23 LAB AGAP 9-18 mmol/L Anion Gap 15 LAB ALT 7-38 U/L ALT 28 LAB GFRAA eGFR- Amer. >60 LAB GFRNAA . eGFR-All Other Races >60 Result Comment: eGFR (Estimated GFR) Units of measure: mL/min/1.73 meters squared eGFR is derived from the reexpressed MDRD Study equation using the following parameters: serum creatinine, age, gender and race. The creatinine assay has been calibrated to be traceable to IDMS. An eGFR <60 mL/min/1.73m2 for >3 months is consistent with chronic kidney disease. Refer to KDOQI guidelines for clinical interpretation. In patients with unstable renal function, e.g. those with acute kidney injury, the eGFR may not accurately reflect actual GFR. Performed By: #### CMP #### [facility] [address] [place] [id number] CONSULT PROG Observed: 12/14/2017 Status: COMPLETED Source: [facility] 5:26 PM [facility] REPOSITORY O ID: [id number] Author: Dianna Magdaleno (Kiln Feeder) Service: Pharmacy Author Type: Pharmacist Type: Consult Progress Note Filed: 12/14/2017 5:36 PM Note Text: PHARMACY VANCOMYCIN DOSING NOTE Patient Name: Stephie Ugarte Admission Date: 12/12/2017 Date of Consult: 12/14/2017 Time of Consult: 5:26 PM Indication: WEB PRESSMAN infection Goal Range: 15-25 mcg/mL RECOMMENDATIONS/PLAN: Pharmacy consulted for vancomycin dosing for Stephie Ugarte, a 72 year old, female who is being treated with vancomycin for WEB PRESSMAN infection 1. Patient is currently ordered Vancomycin 1.25 g IV q12h. Today is day 3 of therapy. 2. The most recent vancomycin level was 22.3 mcg/mL drawn at 1600 on 12/14. This is a 14 hour level on the third day of therapy. 3. The present dose of vancomycin is the recommended dosage for this patient at this time. Continue therapy as prescribed. Scr and CrCl stable. 4. The next vancomycin level will be ordered for 12/19 unless clinically indicated sooner. (Pharmacy will order) We will follow patient renal function, vancomycin levels and doses with you during the course of therapy. Additional recommendations will appear in follow up notes. If you have any questions, please contact Dianna Magdaleno, PharmD at [phone]. Age: [age] year old Allergies: ALLERGIES Allergen Reactions - Anesthesia [Other] GI Upset Last 3 Encounter Wt Readings: Date: Wt: 12/11/2017 82.3 kg (181 lb 7 oz) 11/09/2017 80.3 kg (177 lb) 06/26/2017 82.1 kg (181 lb) Last 1 Encounter Ht Readings: Date: Ht: 03/11/2016 161.3 cm (5' 3.5) CrCl: ~80 mL/min Temp (24hrs), Av.7 ?C (98 ?F), Min:36.4 ?C (97.6 ?F), Max:37.1 ?C (98.7 ?F) - Current Temp: 36.6 ?C (97.9 ?F) Labs BUN (mg/dL) Date Value 12/14/2017 13 12/12/2017 19 07/20/2012 34 (H) Creatinine (mg/dL) Date Value 12/14/2017 0.62 12/12/2017 0.61 07/20/2012 0.83 WBC (k/uL) Date Value 12/14/2017 7.79 12/13/2017 9.51 12/13/2017 7.65 Vancomycin Levels: Vancomycin, result (ug/mL) Date/Time Value 12/14/2017 1601 22.3 (H) DIANNA MAGDALENO, (PHARMACY RESDIENT) NURSING PROG Observed: 12/14/2017 Status: COMPLETED Source: [facility] 4:30 PM [facility] REPOSITORY HNO ID: [id number] Author: Jihan RodriguezRn) JINNY Rodriges Service: Nursing Author Type: Registered Nurse Type: Nursing Progress Note Filed: 12/14/2017 4:32 PM Note Text: Nursing Progress Note Patient Name: Stephie Ugarte Patient Location: [id number]/[id number] Daily Note: Lab called reporting blood culture from 12/13/17 at 23:35 in L hand (#1) were positive for gram negative bacilli. MD notified. This note was completed by: Jihan Rodriges RN VANCOMYCIN Collected: 12/14/2017 Status: F Source: [place] 4:[address] [facility] REPOSITORY TYPE CODE TESTS RESULT OUT OF REFERENCE UNITS RANGE LAB VANCRA 5.0-20.0 ug/mL High Vancomycin 22.3 Result Comment: Reference ranges and high/low indicator flags are provided as general guidelines only. The treating physician must determine appropriate target levels/dosing based on the specific clinical situation. Performed By: #### VANCRA #### [facility] [address] [place], [place] [address] CASE MGT INIT Observed: 12/14/2017 Status: COMPLETED Source: [place] 1:[address] [facility] [place] REPOSITORY HNO ID: [id number] Author: Brenda Chase (Rn) JINNY Sargent Service: Care Management Author Type: Registered Nurse Type: Care Mgt Initial Assessment Filed: 12/14/2017 2:08 PM Note Text: CARE MANAGEMENT: ASSESSMENT AND DISCHARGE PLAN SERVICE DATE: 12/14/2017 SERVICE TIME: 1357 PRIMARY CARE PHYSICIAN: Elkin Wood MD ADMISSION STATUS: Inpatient Needs Prior to Discharge: Accepting Facility;Facility or Agency Choices;Precertification;Discharge Transportation MEDICAL: Patient/Thiokol Operator Stated Goals: To have reduction in symptoms To improve my functional status To return home to life as it was To be cured/healed This has been discussed with my physician This has been discussed with my family Health Insurance: [employer] [facility]. [facility] Health Issues Impacting Discharge Plan: Newly diagnosed sepsis Last Admission Date: Previous admit date: 09/10/2004 Is this Within the Past 30 days? No Advance Directive: Current Advance Directive: Health Care Power of Candle Maker;Living Will In Chart: No [employer] Teacher Attempted to Assist with AD Completion: Yes Action: Other: See Comment (Pt states she will have family bring in copy) Health Literacy: 1. How often do you need to have someone help you when you read instructions, pamphlets, or other written material from your doctor or pharmacy? Never - 1 2. How confident are you filling out medical forms by yourself? Extremely - 1 If Patient scores > 3 on either question, the following interventions were put into place: Patient did not score > 3 FUNCTIONAL AND COGNITIVE/BEHAVIORAL PRIOR TO ADMISSION: Baseline Mental Status: Alert AND Oriented, Person, Place , Time and Situation Functional Status: Independent Does Patient Currently Receive Any Community Services or Home Care? None Equipment Prior to Admission: None Has the Patient Been in a Halfway Facility in the Past 30 days? No but states she was accepted by [facility] prior to admit at [facility]. SOCIAL: Living Arrangement: Home Lives With: Alone Financial Resources: Retired Primary Contact: Extended Emergency Contact Information Primary Emergency Contact: Jeimy Turk/ALLY Relation: Child Supportive: Yes Other Important Patient Contacts: None Caregiver Assessment: Caregiver is ready, willing and able to meet the patient's needs as recommended by the inter-professional team? TBD Patient's transition needs and plan for meeting these needs: TBD; awaiting PT eval Does the patient have an acute stroke diagnosis, or has the patient had a stroke during this admission? No Medication Adherence: I am convinced of the importance of my prescription medication: Agree completely - 0 I worry that my prescription medication will do more harm than good to me Disagree completely - 0 I feel financially burdened by my [id number] expenses for my prescription medication: Disagree completely - 0 Patient is categorized as low risk < 2 Are you interested in bedside delivery of your medications? Yes Food Concerns: In the Last Month, Have You had Trouble Getting Food? No trouble getting food During the Last Month, Have You Worried Whether Your Food Would Run Out Before You Had Enough Money to Buy More? No Is the Patient Psychosocially Complex? No ASSESSMENT AND PLAN: Medical Needs: 2 or more chronic diseases, Fall risk or frequent falls and IV Antibiotics Psychosocial Needs: None FREEDOM OF CHOICE EXPLAINED: Yes 12/14/2017 1015 pt Financial Disclosure Provided The patient and/or family has been given the Provider List: Yes Provider List: [facility]way Facility and specifically for [place] floor to SNF Preference: [facility] SNF. Awaiting further choices. POTENTIAL TRANSITION PLANS Halfway Facility/Intermediate Care Facility Per EMR: 72 year old female with MRSA bacteremia source - infected nerves stimulator and battery. MRI showing concerns of edema around spinal cord. PMH: sciatica, diverticulitis, HTN, asthma. D/C date TBD. Skilled for SNF. Pt states she was accepted to [facility] SNF prior to admission at [facility] and that will be her first choice. Choice list provided of facilities that participate in the [place] f2snf program and am awaiting further choices. Will need precert and BLS transport. Pt aware of possible financial obligation from this. Please notify Case Management for any changes in skilled needs. Thank you. SIGNATURE: Brenda Sargent RN PATIENT NAME: Stephie Ugarte DATE: December 14, 2017 TIME: 1:57 PM PAGER/CONTACT #: [phone] CASE MANAGEM Observed: 12/14/2017 Status: COMPLETED Source: [facility] 12:15 PM [facility] REPOSITORY HNO ID: [id number] Author: Blanca RodriguezRn) JINNY Regalado Service: Care Management Author Type: Registered Nurse Type: Care Mgt Progress Note Filed: 12/14/2017 12:16 PM Note Text: CARE MANAGEMENT PROGRESS NOTE SERVICE DATE: 12/14/2017 SERVICE TIME: 12:15 PM LOS: 2 days [place] Band Manager Note Not Attributed Census List Admission Date: 12/14/2017 SIGNATURE: Blanca Regalado RN PATIENT NAME: Stephie Ugarte DATE: December 14, 2017 TIME: 12:15 PM PAGER/CONTACT #: [phone] THERAPY NT Observed: 12/14/2017 Status: COMPLETED Source: [facility] 10:40 AM [facility] REPOSITORY HNO ID: [id number] Author: Khang RodriguezPt) Juan Service: Physical Therapy Author Type: Physical Therapist Type: Therapy (PT/OT/Speech/Resp) Filed: 12/14/2017 10:55 AM Note Text: Physical Therapy Evaluation SERVICE DATE: 12/14/2017 SERVICE TIME: 900 [facility] Recommended Discharge Disposition: Subacute/SNF Justification For Post Acute Needs: Good sitting tolerance;Living the community premorbidly;Motivated;Willing to participate;Anticipate that patient will require daily (5x/wk) skilled therapy in a post-acute facility setting at the time of acute hospital discharge Recommended Discharge Equipment: To Be Determined PT Recommendations to Nursing: Transfer to/from chair;OOB for Meals;Sit at edge of bed;With assist of 2 people Device: Wheeled Walker PT 6 Clicks Score: 16 Precautions/Activity Restrictions: Fall Risk;Lines/Tubes/Drains;Spine ASSESSMENT : Pt completed all functional mobility with min-mod A this date and required increased time to complete d/t pt tolerance and to promote increased independence. Pt able to ambulate 20' x2 but required seated rest break d/t weakness in knees with apparent decreased stability with fatigue. Pt presents with decreased strength, decreased endurance and activity tolerance, decreased ROM, impaired posture, balance deficits, and decreased safety awareness requiring hands on assistance and skilled PT intervention for safe completion of mobility at this time. Prior to illness, pt was independent with all mobility, ADL's, and IADL's. Pt does not have a history of falls and was ambulating without a AD prior to hospital stay. Pt will have PRN assistance from neighbor and nearby family upon d/c. From a PT perspective anticipate for d/c SNF as pt demonstrates inadequate safety awareness and mobility performance to return home safely at this time, despite support available and will continue to benefit from skilled PT intervention. Emphasis on continued skilled mobility training and functional capacity improvement during acute hospital stay. Pt requires further skilled PT intervention during current hospital stay for appropriate activity and exercise dosing and safe progression with all mobilization to improve overall functional capacity and allow for a safe d/c. Patient Disposition at Start of Session: Supine in Bed;Call Nguyen in Reach Patient Disposition at End of Session: OOB in Chair;Call Nguyen in Reach;Other: See Comment (PCNA present) Tolerated Full Session Physical Therapy Problem List: Education Deficit;Safety Deficits;Pain;Decreased Activity Tolerance;Impaired Self Care;Decreased Range Of Motion;Decreased Strength;Functional Mobility Impairment;Balance Impaired Patient /Caregiver Goals: Walk;Go To Rehab Goals for Plan of Care: Able to perform HEP with: Modified Independent Rolling with: Modified Independent Transfer supine to/from sit with: Modified Independent Transfer sit to/from stand with: Modified Independent Ambulate with: Supervision Distance: 150 Device: Wheeled Walker Ambulate up and down steps with: Contact Guard Assistance Number of steps: 1 Device: Other: See Comment (LRAD) Transfer: Mod I with LRAD Goal: Pt will ascend/descend inclined ramp with supervision assist with LRAD to simulate home going environment. Rehab Potential: Good PLAN: Treatment Frequency (times per week): 3 Current admission Treatment Interventions: Education;Self Care / Home Management;Energy Conservation Training;Joint Mobility;Strengthening;Functional Mobility Training;Balance Training;Neuromuscular Re-education Plan of Care developed with: Patient TREATMENT INTERVENTIONS: Therapy Diagnosis: Reduced mobility-other Interventions Provided: Evaluation;Therapeutic Activity (54894);Gait Training (53388) $ Evaluation-Moderate (29921) Billed Units: 1 unit Therapeutic Activity (94852) Treatment Minutes: 25 2 units Skilled Intervention(s): Pt was instructed in while PT facilitated with the required level of hands on assist for successful completion of a log roll to maintain spinal precautions and improve safety awareness. Pt was educated on reason for performing this bed mobility technique and responded well to instruction and performance. Pt required mod A with this for BLE management and trunk assist to upright with HOB elevated. Pt completed scooting to EOB with increased time to achieve feet flat on the floor to prepare for further mobilization activities and PT provided VC for hand placement and pacing of activity. Pt completed sit > stand transfer x 3 trials this date to FWW with appropriate level of hands on assist and verbal cues described below and was instructed in safe hand placement pushing from stable surface to FWW device, having feet flat on the floor and scooted back, trunk scooted forward on stable surface, and to lean forward for successful nose over toes technique to improve transfer efficiency. Pt completed stand > sit transfer x3 trials with appropriate level of hands on assist and verbal cues described below and was instructed in safe hand placement from FWW and to reach back to arm chair and for pt to feel the back of chair with both legs prior to descent into seated position safely. Pt with good carryover with this following first 2 trials. Pt was educated on physiologic benefits of gradually increasing activity and mobilization and being out of bed throughout the day as much as pt is able to tolerate with nursing staff. PT assessed, monitored vitals and adjusted session PRN based on physiologic response. Questions answered to pt's satisfaction. PT educated patient on role of PT, goals of PT, benefits of mobility, benefits of upright sitting, PT POC, performing HEP, use of call light for safety in room, benefits of post acute PT and post acute PT D/C recommendation and planning to SNF to return to PLOF and decrease fall risk. Gait Training (27643) Treatment Minutes: 14 1 unit Skilled Intervention(s): Pt completed stepping in place activity to FWW with CGA and VC to weight shift and lift foot off the the ground to prepare for further ambulation activities. Pt performed 2 bout(s) of ambulation of 20' with FWW and required increased time to complete with significantly decreased cheyenne and step length, appropriate level of hands on assist, verbal cueing, and facilitation described below. Pt completed with required seated rest break between bouts d/t weakness and fatigue in LE's and without any onset of adverse physiologic symptoms during bout(s). PT provided VC throughout bout(s) as needed to improve and promote upright posture, increase step length and cheyenne, improve step through pattern, improve heel strike, and for assessment of any pt self-reported physiologic symptoms. Pt demonstrated fair carryover with this initially. Pt was educated on performance following bout and hopeful progression with ambulation. PT educated pt on safe and efficient ambulation with FWW to conserve energy, manage rest breaks, decrease fall risk and improve functional independence and PT provided AD demonstration, recommendation, fitting of AD, FWW approximation and management, and education to promote maximal independence, safety, decreased pain, and most efficient functional mobility and ambulation speed Total Timed Code Treatment Minutes: 39 Total Treatment Time (minutes): 54 FUNCTIONAL G CODE: PT 6 Clicks Score: 16 (12/14/17900) Mobility: Walking and Moving Around Current Status (G8978): CK (12/14/17900) Mobility: Walking and Moving Around Goal Status (G8979): CJ (12/14/17900) Based on clinical assessment and the score on the 6 Clicks Functional Assessment Tool, the G code and corresponding severity modifiers are documented above. SUBJECTIVE: Current Hospital Course: Chart reviewed; Per EPIC: 72 year old female with MRSA bacteremia source - infected nerves stimulator and battery. MRI showing concerns of edema around spinal cord. Reason for Physical Therapy Consult : new functional deficit not expected to spontaneously improve and PT eval PAST MEDICAL HISTORY Diagnosis Date - ASA CLASS II 09/09/2004 - Bilateral low back pain with left-sided sciatica 04/02/2015 Taken care of by surgery - Bilateral low back pain with sciatica 04/09/2015 Taken care of by surgery - Diverticulitis - Diverticulitis of colon 07/21/2009 - Essential hypertension, benign 12/09/2006 - Mild intermittent asthma without complication 03/27/2016 Patient Report: I felt very safe with you. Home Environment Patient Lives With: Self/Alone;Other: See Comment (neighbor and family nearby assists PRN) Assistance Available: PRN (neighbor and family nearby) Entry To Home: No Stairs;Ramp Number Of Stairs To Bed/Bath: 0 (1 level) Tub/Shower Type: walk in shower Laundry: 1st floor Equipment Owned: Grab Bars-Shower;Wheeled Walker;Wheelchair;Cane;Commode-Raised Prior Functional Level: Within Functional Limits;Other: See Comment Prior Functional Level Comments: Reports Ind with ADL's and IADL's, + driving, OBJECTIVE: Vital Signs Pre Assessment: Heart Rate, BP, SpO2, O2 Equipment Pre Heart Rate: 75 Pre BP: 133/58 Pre BP Position: Supine Pre SpO2: 96 Pre O2 Equipment: Nasal Cannula Pre Oxygen Requirement: 0.5 L Intra Assessment 1: Heart Rate Intra 1, SpO2 Intra 1, Oxygen Equipment Intra 1 (following ambulation) Intra Heart Rate 1: 104 Intra SpO2 1: 94 Intra O2 Equipment 1: Room Air (discussed with RN) Post Assessment: Heart Rate Post, SpO2 Post, Oxygen Equipment Post Post Heart Rate: 81 Post SpO2: 93 Post O2 Equipment: Room Air CURRENT FUNCTIONAL STATUS: Current Functional Mobility Assist Level Additional Information Rolling Minimal Assistance Supine to Sit Moderate Assistance Sit to Supine Scooting Minimal Assistance Sit to Stand Minimal Assistance Stand to Sit Minimal Assistance Bed to Chair Toilet/Commode Gait Minimal Assistance Gait Device: Wheeled Walker Gait Distance (feet): 20' x2 Stairs Curb Step Car Transfer *BLANK ALDRICH INDICATE ACTIVITY NOT ATTEMPTED EITHER D/T SAFETY CONCERNS, COMPLIANCE OR NOT INDICATED D/T PATIENT'S PERFORMANCE AND MEDICAL STATUS. General Gait Deviations: Cheyenne decreased;Step length decreased;Flexed trunk posture;Difficulty changing direction/turning;Non-functional gait speed Balance: Static Sitting;Dynamic Sitting;Static Standing;Dynamic Standing Static Sitting Balance: Supervision Dynamic Sitting Balance: Stand By Assistance Static Standing Balance: Contact Guard Assistance Dynamic Standing Balance: Minimal Assistance Please see discipline specific clinical documentation flowsheet for complete details for this therapy evaluation/treatment. SIGNATURE: Khang Mratinez PT PATIENT NAME: Stephie Ugarte DATE: December 14, 2017 TIME: 10:40 AM CONSULT PROG Observed: 12/14/2017 Status: COMPLETED Source: [facility] 9:[address] [facility] [place] REPOSITORY HNO ID: [id number] Author: Denisse Osorio Service: Infectious Disease Author Type: Physician Type: Consult Progress Note Filed: 12/14/2017 5:41 PM Note Text: INFECTIOUS DISEASE CONSULT SERVICE PROGRESS NOTE Date: December 14, 2017 Patient Name: Stephie Ugarte Interval Events: -Patient remains afebrile at this time -As noted previously, MRI findings consistent with T2/3 epidural abscess -Surgical intervention deferred at this time per neurosurgery - beside wound vac placement + antibiotics -Plan to revise superficial skin closure once infection is clear. -Blood cultures positive for GPC, MRSA -Blood cultures from 12/12 positive for GPC/MRSA, repeat blood cultures from 12/13 pending MEDICATIONS Medications reviewed. Current hospital medications: vancomycin dosing and monitoring per pharmacy OTHER As Directed 0.9% NaCl 3-5 mL 3-5 mL INTRAVENOUS q 12 H oxyCODONE IR 5-10 mg tab(s) (ROXICODONE) 5-10 mg ORAL q 6 H PRN perflutren lipid microspheres 1.1 mg/mL 1.3 mL injection (DEFINITY) 1.3 mL INTRAVENOUS DIRECTED PRN lisinopril 10 mg tab(s) (ZESTRIL, PRINIVIL) 10 mg ORAL DAILY ondansetron (PF) 4 mg injection (ZOFRAN) 4 mg INTRAVENOUS q 6 H PRN vancomycin 1.25 g in D5W 250 mL (VANCOCIN) 1.25 g INTRAVENOUS q 12 HR EXAMINATION: BP 133/58 Pulse 75 Temp 36.7 ?C (98 ?F) (Oral) Resp 16 Wt 82.3 kg (181 lb 7 oz) SpO2 96% BMI 31.64 kg/m? GENERAL APPEARANCE:alert, in no acute distress SKIN: negative, did not unpack wounds today HEAD/SINUSES: No significant findings. EYES: PERRLA, conjunctiva cleare NECK: Supple LUNGS: Clear to auscultation, No crackles. HEART: Regular rate and rhythm ABDOMEN: Soft, Non-tender, Nondistended, Normal bowel sounds EXTREMITIES: negative edema NEURO: Awake, alert and oriented x 3 -Strength 5/5 in R foot improved -Left leg 5/5 LABORATORY DATA: WBC (k/uL) Date Value 12/14/2017 7.79 12/13/2017 9.51 12/13/2017 7.65 Hemoglobin (g/dL) Date Value 12/14/2017 8.5 12/13/2017 8.7 12/13/2017 6.6 Platelet Count (k/uL) Date Value 12/14/2017 451 12/13/2017 442 12/13/2017 485 Creatinine (mg/dL) Date Value 12/14/2017 0.62 12/12/2017 0.61 07/20/2012 0.83 MICROBIOLOGY DATA: reviewed IMAGING DATA: Films personally reviewed. ASSESSMENT: Has hx of ?c spine hardware, lumbar laminectomy, b/l TKA, b/l RODGER. Underwent spinal cord stimulator placement 11/13, per her daughter was healing ok, but at f/u appt wound was draining copious bloody fluid. Began feeling unwell, then become moribund. Went to OSH--found to be MRSA bacteremia.. Underwent stimulator removal 11/30, per pt's daughter wounds were sewn shut Initially cleared MRSA , then relapsed ?per records Was changed to daptomycin (NOT due to any intolerance of vancomycin) ultimely wounds becam more swollen--opened 12/11, with gross purulence per daughter, now packed. Repeat MRI at [facility]--shows T2/3 epidural abscess with ?cord compression and pachymeningitis RECOMMENDATIONS: -Please continue vancomycin at this time -Ensure trough 15-25 -Monitoring for therapeutic and adverse effects to intravenous antibiotics. -Blood cultures from 12/12 positive for GPC/MRSA, repeat blood cultures from 12/13 pending -Surgical intervention deferred at this time per neurosurgery - beside wound vac placement + antibiotics (plan to revise superficial skin closure once infection is clear). Case discussed with Dr. Osorio. Grey Elam MD Infectious Disease, PGY-1 Pager [phone] December 14, 2017 Events reviewed. Patient examined. Findings as outlined in the resident's note above. Hall elements verified. Relevant lab data, microbiology and imaging data reviewed. Relevant images personally reviewed. Agree with assessment and plan as outlined in the resident's note above. I was physically present for the critical portions of the service provided by the ID team. The management plan reflects my input. Denisse Osorio MD 72F from [place] transferred for recurrence of MRSA bacteremia and purulence from surgical site h/o c spine hardware placement lumbar stenosis s/p lumbar laminectomy, fusion bilateral TKA and bilateral RODGER SCS placement 11/13/2017 c/b infected SCS marked by copious bloody drainage from the surgical sites and mental status changes. Admitted to [facility] with MRSA bacteremia s/p SCS removal (including catheter) 11/30/2017 -- per Dr. Rutledge review - MRSA bacteremia cleared but relapsed per records. despite washout and daptomycin, noted to have gross purulence and dehiscence 12/11/2017 Now with relapsing MRSA bacteremia. Repeat MRI 12/13 reviewed with T2/3 epidural abscess and ?cord compression and pachymeningitis Suspected primary source - previous SCS site with purulence that will need I and D and vac placement On exam she is awake, alert, ox3. sitting up in chair. s1 s2 rrr no murmurs, chest cta; no rash or stigmata of IE 4/5 strength over bilateral LEs; weaker R hip flexor and R knee extensor (chronic) ; R and L hip incisions c/d/i; bilateral TKR incisions c/di lumbar wound and R buttock wound packed without surrounding redness or tendernes. intact sensation; 5/5 strength over bilateral UEs (shoulder abduction/ adduction) painting in place due to recent urinary incontinence. continue vancomycin IV reviewed spine surgery recs- bedside wound vac and abx for now. repeat blood cx GNB from 12/13 blood cx - add zosyn in addition to vancomycin while awaiting identification Denisse Osorio MD PROGRESS Observed: 12/14/2017 Status: COMPLETED Source: [place] 8:[address] [facility] [place] REPOSITORY HNO ID: [id number] Author: Kofi Quiñonez MD (Fel) Service: Neurosurgery Author Type: Fellow Type: Progress Notes Filed: 12/14/2017 10:35 AM Note Text: Spine Fellow Service Progress Note After 5 PM (1600) please page [phone]. [phone] page Trae Bertrand CNP [phone] for Nathan Mosley, Mery, Moncho, or Felicia pt's. [phone] page Casey Francois PA-C [phone] for Larissa, Antione, Ayala, Gallo, or Rene pt's Attending: Dr. Hitesh Molina Location: [id number] Hospital Day: 3 ASSESSMENT: MRSA bacteremia with open surgical wounds in thoracolumbar region and right gluteal region. No active drainage. Currently managed with wet-dry. Anterior thoracic epidural disease, presumed infectious however no pain and no e/o thoracic myelopathy. Will defer surgical intervention until progression of either ? Open wounds will be managed with bedside wound vac placement and Abx. Wounds will close by secondary intention. Would like to vac as much as possible. Can revise superficial skin closure once infection cleared and granulation bed looks good. PLAN: Cont Abx per primary team Consult Ostomy and Vac team today Mobilize, PT consult Will cont to follow serial neuro exams INTERVAL HPI: is a 72 year old female. Overnight events noted: none. Subjectively feels better OBJECTIVE: LABS: CBC: Recent Labs 12/14/17 0538 12/13/17 2051 12/13/17 0755 12/12/17 0616 WBC 7.79 9.51 7.65 9.16 HB 8.5* 8.7* 6.6* 7.4* HCT 26.3* 26.8* 20.4* 23.0* PLT 451* 442* 485* 565* MCV 84.3 83.8 84.3 85.5 RDWCV 14.1 14.1 14.6 14.6 NEUTP 68.9 -- 69.7 73.5 ABSNEUT 5.37 -- 5.34 6.73 LYMPHP 16.3 -- 16.5 15.2 MONOP 10.9 -- 10.7 9.1 EODINP 3.1 -- 2.4 1.7 COAG: Recent Labs 12/12/17 0616 APTT 23.5 INR 0.9 BMP: Recent Labs 12/14/17 0538 12/12/17 0616 GLUC 110* 100* NA 131* 135* K 4.2 4.3 CHLOR 93* 99 CO2 23 23 ANION 15 13 BUN 13 19 CREAT 0.62 0.61 CHEM: Recent Labs 12/14/17 0538 12/12/17 0616 ALB 2.7* 2.6* TPROT 6.0* 6.1* CA 8.0* 8.6 MG -- 2.1 P -- 3.8 HEPATIC: Recent Labs 12/14/17 0538 12/12/17 0616 ALKPHOS 68 73 ALT 23 32 AST 20 19 TBILI 0.3 0.2 URINALYSIS:No results for input(s): PH, SPGR, UGLUC, UBILI, UKET, UHB, UPROT, UROBIL, UWBC, LEUKEST, SSA in the last 168 hours. Invalid input(s): NITR CARDIAC: Recent Labs 12/12/17615 CKMBP CK MB % not reported with CK <100 U/L. HbA1C: Hemoglobin A1C (%) Date Value 12/15/2014 5.3 CRP: Recent Labs 12/12/1716 CRP 5.9* ESR: No results for input(s): ESR in the last 168 hours. Blood Glucose Checks: Vitamin D: Vitamin D 25 Hydroxy (ng/mL) Date Value 12/15/2014 27.6 Intake/Output Summary (Last 24 hours) at 12/14/17 0844 Last data filed at 12/14/17 0600 Gross per 24 hour Intake 1251 ml Output 2625 ml Net -1374 ml 12/13/17 1409 12/13/17 1846 12/14/17 0200 12/14/17 0615 BP: 146/66 (!) 126/47 145/64 134/53 Pulse: 69 71 76 67 Resp: Temp: 36.4 ?C (97.6 ?F) 37.1 ?C (98.7 ?F) 36.7 ?C (98 ?F) 36.7 ?C (98 ?F) TempSrc: Oral Oral Oral Oral SpO2: 96% 96% 94% 96% Weight: 82.3 kg (181 lb 7 oz) General: Appears stated age, well built, in no apparent distress. Skin: Prior incisions packed with wet-dry dressings. No active drainage. Mild erythema around skin edges Musculoskeletal: Motor: UE BICEPS TRICEPS DELTS Wrist Ext Wrist Flex Printer'S Devil HI R 5/5 5/5 5/5 5/5 5/5 5/5 5/5 L 5/5 5/5 5/5 5/5 5/5 5/5 5/5 LE Hip Flex Knee Flex Knee Extend Plantarflex Dorsiflex EHL R 4+/5 4+/5 4+/5 4+/5 4+/5 4+/5 L 5/5 5/5 5/5 5/5 5/5 5/5 Long Tract Signs: No clonus, Babinski, or Hoffmans. SIGNATURE: Kofi Quiñonez MD PATIENT NAME: Stephie Ugarte DATE: 12/14/2017 TIME: 8:44 AM PAGER/PHONE: Dr. Mcallister/JACINDA PROGRESS Observed: 12/14/2017 Status: COMPLETED Source: [place] 8:21 AM [facility] REPOSITORY O ID: [id number] Author: Hitesh Molina Service: General Internal Medicine Author Type: Physician Type: Progress Notes Filed: 12/14/2017 3:38 PM Note Text: INTERNAL MEDICINE PROGRESS NOTE Patient Name: Stephie Ugarte Date of Serivce: 12/14/2017 Time: 8:18 AM PRIMARY SERVICE: [facility] DAY: # 2 Additionally please refer to excellent note by MS Chris Mead. BRIEF PLAN FOR THE DAY - Consider further evaluation for mixed-etiology anemia, repeat labs once infection cleared - Follow up on wound vac placement today - Follow up on repeat blood cultures and obtain daily cultures - Continue with antibiotic regimen - Remove Painting and assess UOP INTERVAL SUBJECTIVE HISTORY - No events overnight. Hb improved to 8.7 s/p transfusion of 1u pRBC - Awaiting blood culture results from 12/13. - Labs stable with Hb 8.5. WBC stable at 7.79 from 9.5 yesterday 12/13. BMP stable. Briefly, 72 year old female with a PMH for HTN and chronic back pain who recently had neurostimulator placed near the thoracic spine (11/13), complicated by hardware infection and MRSA bacteremia s/p hardware removal (11/30). She had presented to the OSH ED with AMS and was treated for sepsis (11/21). Hardware was cultured, MRSA positive. Vancomycin given and MRSA persisted in blood cultures. Briefly on daptomycin, and seemed to improve by 12/02 (suspected to be due to bactericidal effect), but with persistently positive blood cultures despite antimicrobial therapy. MRI completed demonstrating new enhancement in thoracic epidural spaces concerning for infection, and patient was transferred to [facility], after IANDD cleanout, due to potential need for Spine Surgery specialists. ID and Spine specialties consulted for recommendations and now on vancomycin. PHYSICAL EXAM: Patient Vitals for the past 24 hrs: BP Temp Temp src Pulse Resp SpO2 Weight 12/14/17 0615 134/53 36.7 ?C (98 ?F) Oral 67 16 96 % 82.3 kg (181 lb 7 oz) 12/14/17 0200 145/64 36.7 ?C (98 ?F) Oral 76 16 94 % - 12/13/17 1846 (!) 126/47 37.1 ?C (98.7 ?F) Oral 71 20 96 % - 12/13/17 1409 146/66 36.4 ?C (97.6 ?F) Oral 69 22 96 % - 12/13/17 1145 130/54 36.6 ?C (97.8 ?F) Oral 67 18 97 % - 12/13/17 1129 130/56 36.5 ?C (97.7 ?F) Oral 66 20 - - 12/13/17 1123 (!) 128/49 36.5 ?C (97.7 ?F) Oral 66 20 - - 12/13/17 1100 130/50 36.4 ?C (97.6 ?F) Oral 68 20 95 % - Body mass index is 31.64 kg/m?. GENERAL: Alert, no distress, cooperative SKIN: Skin color, texture, turgor normal. No rashes or lesions. OROPHARYNX: Lips, mucosa, and tongue are normal.Teeth and gums, normal. Oropharynx normal. NECK: No jugulovenous distention, No carotid bruits, Carotid pulse normal contour, Supple LUNGS: Lungs clear to auscultation. Good diaphragmatic excursion. CARDIAC: Normal S1 and S2; no rubs, murmurs, or gallops ABDOMEN: Abdomen soft, non-tender, BS normal, No masses or organomegaly EXTREMITIES: Extremities normal, no deformities, edema, clubbing or skin discoloration. Good capillary refill., No ulcers NEURO: Alert, oriented X 3, Gait normal. Non-focal. Reflexes normal and symmetric. Sensation grossly intact., Cranial nerves II-XII intact PULSES: 2+ radial, 2+ carotid MEDICATIONS Current hospital medications: vancomycin dosing and monitoring per pharmacy OTHER As Directed 0.9% NaCl 3-5 mL 3-5 mL INTRAVENOUS q 12 H oxyCODONE IR 5-10 mg tab(s) (ROXICODONE) 5-10 mg ORAL q 6 H PRN perflutren lipid microspheres 1.1 mg/mL 1.3 mL injection (DEFINITY) 1.3 mL INTRAVENOUS DIRECTED PRN lisinopril 10 mg tab(s) (ZESTRIL, PRINIVIL) 10 mg ORAL DAILY ondansetron (PF) 4 mg injection (ZOFRAN) 4 mg INTRAVENOUS q 6 H PRN vancomycin 1.25 g in D5W 250 mL (VANCOCIN) 1.25 g INTRAVENOUS q 12 HR DATA Recent Labs 12/14/17 0538 12/13/17 2051 12/13/17 0755 WBC 7.79 9.51 7.65 HB 8.5* 8.7* 6.6* HCT 26.3* 26.8* 20.4* PLT 451* 442* 485* Recent Labs 12/14/17 0538 12/12/17 0616 NA 131* 135* K 4.2 4.3 CO2 23 23 BUN 13 19 CREAT 0.62 0.61 GLUC 110* 100* MG -- 2.1 IMAGING No new imaging at this juncture. ASSESSMENT AND PLAN Briefly, 72 year old female with a PMH for HTN and chronic back pain who recently had neurostimulator placed near the thoracic spine (11/13), complicated by hardware infection and MRSA bacteremia s/p hardware removal (11/30). She had presented to the OSH ED with AMS and was treated for sepsis (11/21). Hardware was cultured, MRSA positive. Vancomycin given and MRSA persisted in blood cultures. Briefly on daptomycin, and seemed to improve by 12/02 (suspected to be due to bactericidal effect), but with persistently positive blood cultures despite antimicrobial therapy. MRI completed demonstrating new enhancement in thoracic epidural spaces concerning for infection, and patient was transferred to [facility], after IANDD cleanout, due to potential need for Spine Surgery specialists. ID and Spine specialties consulted for recommendations and now on vancomycin. MRSA bacteremia, suspected to be due to spread from infected paraspinal hardware s/p removal MRI spine repeated after admission demonstrating epidural abscess and match meningitis. Need to obtain operative reports and wound culture results from OSH, as well as echocardiogram and culture sensitivites. - ID consulted: continue vancomycin - Neurosurgery consulted: wound vac placement rather than surgical intervention. - Operative reports and wound culture results from OSH - R hip XR Epidural abscess Demonstrated on MRI on admission significant for T2 - T3 epidural abscess. OSH MRI on 12/11: Abnormal enhancement of the anterior epidural space at T2-5 and posterior epidural space T8-11 consistent with inflammatory or infectious process. Irregular enhancement of the anterior surface of the thoracic spinal cord at T2-4 may represent infectious process. Signal abnormality within spinal cord at T3-4 suggesting edema - Continue with vancomycin, target trough 15 - 25 - Follow up on blood culture results, positive for Gram positive Cocci from 12/12 Chronic Medical issues - HTN: stable, continue lisinopril 10mg daily Medication and Non-Pharmacologic VTE Prophylaxis/Anticoagulants 12/12/17 1815 pneumatic compression stockings ([place], [place]) 12/12/17 0345 vte non-pharmacologic prophylaxis - none indicated (ks,mo) 12/12/17 0345 activity - mobilize patient ([place]) VTE Prophylaxis: VTE prophylaxis appropriate SIGNATURE: Phillip Fritz MD PATIENT NAME: Stephie Ugarte DATE: December 14, 2017 TIME: 8:18 AM PAGER/CONTACT #: [phone] [facility] STAFF PHYSICIAN NOTE OF PERSONAL INVOLVEMENT IN CARE I have reviewed the progress note obtained and documented by the resident and I personally participated in the hall components. I have discussed the case and management of the patient's care. The following comments revise or confirm relevant hall components of their note. IMPRESSION: This is a 72 year old female with chronic back pain s/p spinal cord stimulator placement 11/13/2017 complicated with MRSA bacteremia s/p stimulator removal 11/30 who presents as a transfer with persistent MRSA bacteremia. Has history of bilateral TKA and RODGER Found to have T2/3 epidural abscess on MRI with ? cord compression and pachymeningitis Seen by NSGY no surgical intervention at this time suggested surface echocardiogram w/o evidence of IE PLAN: Continue vancomycin Document bacteremia clearance ID following Monitor any neurologic deficit VTE prophylaxis with heparin SQ Hitesh Molina MD December 14, 2017 3:35 PM CONSULT Observed: 12/14/2017 Status: COMPLETED Source: [facility] 8:12 AM [facility] REPOSITORY HNO ID: [id number] Author: Radha (Rn) JINNY Cavanaugh Service: Wound Care Team Author Type: Registered Nurse Type: Consults Filed: 12/14/2017 8:15 AM Note Text: Wound Care Consult Team Assessment Note: PATIENT NAME: Stephie Ugarte Reason for Assessment: IANDD of spine,recommendation requested. Requested by: Assessment: Neurosurgery has seen aptient. Ordered a wound vac to start today. Paged consulting physician that Ostomy team manages wound vacs. WCCT's focus is pressure injuries. WCCT will defer this consult at this time. Electronically Signed By: JOHN Spaulding RN WCCT PROGRESS Observed: 12/14/2017 Status: COMPLETED Source: [facility] 7:34 AM [facility] REPOSITORY HNO ID: [id number] Author: Chris Jarvis Ms Service: (none) Author Type: (none) Type: Progress Notes Filed: 12/14/2017 8:31 AM Note Text: MEDICAL STUDENT PROGRESS NOTE INTERNAL MEDICINE SERVICE DATE: 12/14/2017 SERVICE TIME: 7:40 AM Attending Note This note was generated by a MEDICAL STUDENT working under the supervision of an Attending Physician and is not authenticated until addended and cosigned by the Attending Physician at the beginning of this note. SUBJECTIVE INTERVAL HPI: VSS. No acute events overnight. Feels much better today. No pain. Medications: Current hospital medications: vancomycin dosing and monitoring per pharmacy OTHER As Directed 0.9% NaCl 3-5 mL 3-5 mL INTRAVENOUS q 12 H oxyCODONE IR 5-10 mg tab(s) (ROXICODONE) 5-10 mg ORAL q 6 H PRN perflutren lipid microspheres 1.1 mg/mL 1.3 mL injection (DEFINITY) 1.3 mL INTRAVENOUS DIRECTED PRN lisinopril 10 mg tab(s) (ZESTRIL, PRINIVIL) 10 mg ORAL DAILY ondansetron (PF) 4 mg injection (ZOFRAN) 4 mg INTRAVENOUS q 6 H PRN vancomycin 1.25 g in D5W 250 mL (VANCOCIN) 1.25 g INTRAVENOUS q 12 HR OBJECTIVE BP 134/53 Pulse 67 Temp 36.7 ?C (98 ?F) (Oral) Resp 16 Wt 82.3 kg (181 lb 7 oz) SpO2 96% BMI 31.64 kg/m? PHYSICAL EXAM: Cardiac: RRR. Resp: CTA Lower extremity: sensation intact. No edema. Neuro: CN II-XII intact. No thoracic sensory level deficits. DATA: Diagnostic tests reviewed for today's visit: MRI: T2-3 epidural abscess with cord compression + edema Pachymeningitis thoracic spine Echo: Normal diastolic function. Mild LV systolic dysfunction. EF 53%. No vegetations. CBC, hemolysis AND iron studies Blood culture from 12/13 pending. Cx from 12/12 +ve MRSA. 11/30 Spinal stimulator site Wound culture report from OSH: Meth. resistant Staph. aureus Amount Growth 3+ Benzylpenicillin >=0.5 R Cefoxitin + Clindamycin <=0.25 S Inducable Clindamycin [place] - Erythromycin <=0.25 S Gentamicin <=0.5 S Levofloxacin <=0.12 S Linezolid 2 S Oxacillin >=4 R Tigecycline <=0.12 S Rifampin <=0.5 S Tetracycline <=1 S Trimethoprim/Sulfametho <=10 S Vancomycin <=0.5 S CLSI guidelines does not recommend testing of cephalosporins. This interpretation is deduced from Beta-lactam/penicillin results. Cult, Anaerobic No anaerobic bacteria isolated. ASSESSMENT AND PLAN: Stephie Ugarte is a 72F with persistent MRSA bacteremia 2/2 thoracolumbar and R gluteal surgical site infection of spinal stimulator removed 11/30 s/p IANDD of both pocket and leads site 10/19 at OSH. Vitals and labs are stable. MRSA Bacteremia Afebrile. Blood culture from 12/13 pending. Cx from 12/12 +ve MRSA prelim result, sensitivities pending. - vancomycin w/ goal trough 15-25 - ID following Open wounds - thoracolumbar and right gluteal region - wound vacuum as much as possible - wound care following T2-3 Epidural abscess with ?cord compression No pain, no thoracic sensory level deficits. No evidence of urinary retention as evaluated 12/12 prior to Painting placement . - Spine service pending pain or thoracic myelopathy before surgical intervention - spine service following - PT consult Essential hypertension - lisinopril 10 mg Anemia Hemolytic w/u negative. Mixed anemia of chronic disease + iron deficiency. Given current inflammatory state, iron supplementation not indicated. - monitor SIGNATURE: Chris Jarvis Ms PATIENT NAME: Stephie Ugarte DATE: December 14, 2017 TIME: 7:40 AM PAGER: CBC AND DIFFERENTIAL Collected: 12/14/2017 Status: F Source: [facility] 5:38 AM [facility] REPOSITORY TYPE CODE TESTS RESULT OUT OF REFERENCE UNITS RANGE LAB WBC 3.70-11.00 k/uL WBC 7.79 LAB RBC 3.90-5.20 m/uL Low RBC 3.12 LAB HGB 11.5-15.5 g/dL Low Hemoglobin 8.5 LAB HCT 36.0-46.0 % Low Hematocrit 26.3 LAB MCV 80.0-100.0 fL MCV 84.3 LAB MCH 26.0-34.0 pG MCH 27.2 LAB MCHC 30.5-36.0 g/dL MCHC 32.3 LAB RDWCV 11.5-15.0 % RDW-CV 14.1 LAB PLTCT 150-400 k/uL Platelet High Count 451 LAB MPV 9.0-12.7 fL Low MPV 8.8 LAB ANEUT % Neut% 68.9 LAB AANEUT 1.45-7.50 k/uL Abs Neut 5.37 LAB ALYMP % Lymph% 16.3 LAB AALYMP 1.00-4.00 k/uL Abs Lymph 1.27 LAB AMONO % Mchenry% 10.9 LAB AAMONO <0.87 k/uL Abs Mchenry 0.85 LAB AEOS % Eosin% 3.1 LAB AAEOS <0.46 k/uL Abs Eosin 0.24 LAB ABASO % Baso% 0.8 LAB AABASO <0.11 k/uL Abs Baso 0.06 LAB AUNRBC 0 /100 WBC NRBCs 0.0 LAB ABNRBC <0.01 k/uL Absolute nRBC <0.01 LAB DTYP DTYPE Auto Diff Performed By: #### CBCDIF, CMP #### [facility] [address] [place], [place] [address] COMP METABOLIC PANEL Collected: 12/14/2017 Status: F Source: [facility] 5:[address] [facility] REPOSITORY TYPE CODE TESTS RESULT OUT OF REFERENCE UNITS RANGE LAB TP 6.3-8.0 g/dL Low Protein, Total 6.0 LAB ALB 3.9-4.9 g/dL Low Albumin 2.7 LAB CA 8.5-10.2 mg/dL Low Calcium, Total 8.0 LAB TBIL 0.2-1.3 mg/dL Bilirubin, Total 0.3 LAB ALKP 34-123 U/L Alkaline Phosphatase 68 LAB AST 13-35 U/L AST 20 LAB GLU 74-99 mg/dL Glucose High 110 Result Comment: The [place] [employer] (ADA) provides guidance for cutoff values for fasting glucose and random glucose. The ADA defines fasting as no caloric intake for at least 8 hours. Fas ting plasma glucose results between 100 to 125 mg/dL indicate increased risk for diabetes (prediabetes). Fasting plasma glucose results greater than or equal to 126 mg/dL meet the criteria for diagnosis of diabetes. In the absence of unequivocal hyperglycemia, results should be confirmed by repeat testing. In a patient with classic symptoms of hyperglycemia or hyperglycemic crisis, random plasma glucose results greater than or equal to 200 mg/dL meet the criteria for diagnosis of diabetes. Reference: Standards of Medical Care in Diabetes 2016, [place] [employer]. Diabetes Care. 2016.39(Suppl 1). LAB BUN 7-21 mg/dL BUN 13 LAB CRET 0.58-0.96 mg/dL Creatinine 0.62 LAB NA 136-144 mmol/L Sodium Low 131 LAB K 3.7-5.1 mmol/L Potassium 4.2 LAB CL 97-105 mmol/L Chloride Low 93 LAB CO2 22-30 mmol/L CO2 23 LAB AGAP 9-18 mmol/L Anion Gap 15 LAB ALT 7-38 U/L ALT 23 LAB GFRAA eGFR- Amer. >60 LAB GFRNAA . eGFR-All Other Races >60 Result Comment: eGFR (Estimated GFR) Units of measure: mL/min/1.73 meters squared eGFR is derived from the reexpressed MDRD Study equation using the following parameters: serum creatinine, age, gender and race. The creatinine assay has been calibrated to be traceable to IDMS. An eGFR <60 mL/min/1.73m2 for >3 months is consistent with chronic kidney disease. Refer to KDOQI guidelines for clinical interpretation. In patients with unstable renal function, e.g. those with acute kidney injury, the eGFR may not accurately reflect actual GFR. Performed By: #### CBCDIF, CMP #### [facility] [address] [place], [place] [address] Observed: 12/13/2017 Status: F Source: [facility] BLOOD CULTURE 11:35 PM [facility] REPOSITORY Additional Testing - Enterobacter spp. detected by microarray. Confirmation and susceptiblity testing to follow. Negative for Acinetobacter spp. and Pseudomonas aeruginosa by microarray. --> ABNORMAL ALERT Culture Result - Enterobacter cloacae complex Staphylococcus aureus --> ABNORMAL ALERT Refer to specimen collected on --> ABNORMAL ALERT 12/12/17 AT 0632 ([id number]) --> ABNORMAL ALERT (NOTE) --& gt; ABNORMAL ALERT Called to and read back by:Tara H81 [phone] Xander --> ABNORMAL ALERT Gram positive cocci in clusters(*) Called to and read back by:1 H81 --> ABNORMAL ALERT JAYJAY ON 12.14.17 AT 8795 TO RAJ --> ABNORMAL ALERT --> ABNORMAL ALERT ORGANISM: Enterobacter cloacae complex METHOD: Minimum inhibitory concentration(Vitek) Antibiotic Interp VENITA Status Ampicillin RESISTANT F Gentamicin SUSCEPTIBLE <=1 F Trimeth sulfameth SUSCEPTIBLE <=20 F Cefazolin RESISTANT F Ciprofloxacin SUSCEPTIBLE <=0.25 F Cefepime SUSCEPTIBLE <=1 F Piperacillin/Tazobac SUSCEPTIBLE <=4 F Ampicillin Sulbact RESISTANT F Ceftriaxone SUSCEPTIBLE <=1 F Enterobacter, Citrobacter, and Serratia may develop resistance during prolonged therapy with third generation cephalosporins as a result of derepression of AmpC beta lactamase. Meropenem SUSCEPTIBLE <=0.25 F Ertapenem SUSCEPTIBLE <=0.5 F Performed By: #### BLCUL #### [facility] [address] [place], [place] [address] Observed: 12/13/2017 Status: F Source: [facility] BLOOD CULTURE 11:35 PM [facility] REPOSITORY Culture Result - Staphylococcus aureus Refer to specimen collected on --> ABNORMAL ALERT 12/12/17 AT 0632 ([id number]) --> ABNORMAL ALERT (NOTE) Positive result called to and read back by: Elizabeth Sanches81 12/16/17 02:42 FAHAD Performed By: #### BLCUL #### [facility] [address] [place], [place] [address] CBC Collected: 12/13/2017 Status: F Source: [facility] 8:51 PM [facility] REPOSITORY TYPE CODE TESTS RESULT OUT OF REFERENCE UNITS RANGE LAB WBC 3.70-11.00 k/uL WBC 9.51 LAB RBC 3.90-5.20 m/uL Low RBC 3.20 LAB HGB 11.5-15.5 g/dL Low Hemoglobin 8.7 LAB HCT 36.0-46.0 % Low Hematocrit 26.8 LAB MCV 80.0-100.0 fL MCV 83.8 LAB MCH 26.0-34.0 pG MCH 27.2 LAB MCHC 30.5-36.0 g/dL MCHC 32.5 LAB RDWCV 11.5-15.0 % RDW-CV 14.1 LAB PLTCT 150-400 k/uL Platelet High Count 442 LAB MPV 9.0-12.7 fL Low MPV 8.7 LAB ABSNUC <0.01 k/uL Absolute nRBC <0.01 Performed By: #### CBC #### [facility] [address] [place], [place] [address] XR CERVICAL 4V Observed: 12/13/2017 Status: F Source: [facility] AP/LAT/OBL 1:38 PM [facility] REPOSITORY * * *Final Report* * * DATE OF EXAM: Dec 13 2017 1:38PM ALEX [id number] - XR CERVICAL 4V AP/LAT/OBL / PROCEDURE REASON: Neck pain, initial exam * * * * Physician Interpretation * * * * Examination: XR CERVICAL 4V AP/LAT/OBL TECHNIQUE: XR CERVICAL 4V AP/LAT/OBL -- with 3 views on 4 images EXAM DATE: 12/13/2017 1:38 PM CLINICAL HISTORY: Limited study due to pt. immobility COMPARISON: MRI cervical spine dated 12/12/2017 RESULT: Counting reference: Craniocervical junction. Post surgical changes of C4-C6 anterior plate and screw and bony fusion. There is straightening of the normal cervical lordosis. Vertebral body heights, contour and mineralization are otherwise normal. Intervertebral disc spaces are otherwise normal. No prevertebral or soft tissue thickening is seen. IMPRESSION: Post surgical changes as described. Program Schedule Clerk: PSCB Transcribe Date/Time: Dec 13 2017 1:40P Dictated by : SUZANNE RESTREPO MD This examination was interpreted and the report reviewed and electronically signed by: MARIE BENEDICT MD on Dec 13 2017 8:57PM EST [id number] PROGRESS Observed: 12/13/2017 Status: COMPLETED Source: [facility] 1:32 PM [facility] REPOSITORY HNO ID: [id number] Author: Kofi Quiñonez MD (Fel) Service: Neurosurgery Author Type: Fellow Type: Progress Notes Filed: 12/13/2017 1:37 PM Note Text: Spine fellow progress note: 24: MR obtained for eval thoracolumbar disease PE: AF, VSS BUE: 5/5, normal reflexes, no sensory deficits. Neg Hoffmans bilat RLE: 4+/5 throughout (baseline per patient), LLE 5/5 throughout No thoracic sensory level Reflexes normal and symmetric throughout No ankle clonus Painting in place however can feel catheter in bladder A/P: MRSA bacteremia with open surgical wounds in thoracolumbar region and right gluteal region. No active drainage. Currently managed with wet-dry. Anterior thoracic epidural disease, presumed infectious however no pain and no e/o thoracic myelopathy. Will defer surgical intervention until progression of either Open wounds will be managed with bedside wound vac placement and Abx. Wounds will close by secondary intention. Would like to vac as much as possible. Can revise superficial skin closure once infection cleared and granulation bed looks good. -Cont Abx per primary team -Will wound vac tomorrow -Can advance diet -PT consult, no restrictions -Cont to monitor for progressive neurologic deficit Olamide RYAN D/w Mery PROGRESS Observed: 12/13/2017 Status: COMPLETED Source: [facility] 1:01 PM [facility] REPOSITORY HNO ID: [id number] Author: Wade Peñaloza) Mart Service: General Internal Medicine Author Type: Physician Type: Progress Notes Filed: 12/13/2017 3:58 PM Note Text: [facility] - Jarad Antony Progress Note PATIENT NAME: Stephie Ugarte SERVICE DATE: 12/13/2017 SERVICE TIME: 1:01 PM Length of stay (days): 1 ADMITTING PHYSICIAN: Valeri Reese Plan for Today - Cont IV antibiotics with Vancomycin, trough of 15-25 - Touch base with ortho/spine, no plans for surgery, wound vac tomorrow - Ok for diet per Ortho/spine Interval Events - No acute events overnight - Feels better today - No fevers, no hypotension, VSS - labs are stable - Repeat MRI yesterday showed epidural abscess with cord compression - blood cultures from 12/12 postive for gram positive cocci Medications Current Facility-Administered Medications: vancomycin dosing and monitoring per pharmacy OTHER As Directed 0.9% NaCl 3-5 mL 3-5 mL INTRAVENOUS q 12 H oxyCODONE IR 5-10 mg tab(s) (ROXICODONE) 5-10 mg ORAL q 6 H PRN perflutren lipid microspheres 1.1 mg/mL 1.3 mL injection (DEFINITY) 1.3 mL INTRAVENOUS DIRECTED PRN lisinopril 10 mg tab(s) (ZESTRIL, PRINIVIL) 10 mg ORAL DAILY ondansetron (PF) 4 mg injection (ZOFRAN) 4 mg INTRAVENOUS q 6 H PRN iv contrast (radiology procedure) INTRAVENOUS DIRECTED PRN iv contrast (radiology procedure) INTRAVENOUS DIRECTED PRN vancomycin 1.25 g in D5W 250 mL (VANCOCIN) 1.25 g INTRAVENOUS q 12 HR iv contrast (radiology procedure) INTRAVENOUS DIRECTED PRN iv contrast (radiology procedure) INTRAVENOUS DIRECTED PRN iv contrast (radiology procedure) INTRAVENOUS DIRECTED PRN Physical Exam BP 130/54 Pulse 67 Temp 36.6 ?C (97.8 ?F) (Oral) Resp 18 Wt 84.4 kg (186 lb 1.1 oz) SpO2 97% BMI 32.44 kg/m? General: No acute distress, AANDOx3 Neck: supple Eyes: EOMI Lungs: clear to auscultation bilaterally, no wheezing, rhonchi or rales Heart: RRR, normal S1 and S2, no murmurs, rubs or gallops Abdomen: Soft, non-tender, non-distended. No masses or hepatosplenomegaly. Extremities: Pulses intact and symmetric. No deformities or injuries. Capillary refill <2 seconds. No edema. Skin: Color, texture, turgor normal, no suspicious rashes or lesions. Neuro: No focal neurological deficits. Fluid Balance Intake/Output Summary (Last 24 hours) at 12/13/17 1301 Last data filed at 12/13/17 1118 Gross per 24 hour Intake 1251 ml Output 750 ml Net 501 ml Labs CBC: Recent Labs 12/13/17 0755 12/12/17 0616 WBC 7.65 9.16 HB 6.6* 7.4* HCT 20.4* 23.0* PLT 485* 565* MCV 84.3 85.5 RDWCV 14.6 14.6 NEUTP 69.7 73.5 ABSNEUT 5.34 6.73 LYMPHP 16.5 15.2 MONOP 10.7 9.1 EODINP 2.4 1.7 COAG: Recent Labs 12/12/17 0616 APTT 23.5 INR 0.9 BMP: Recent Labs 12/12/17 0616 GLUC 100* NA 135* K 4.3 CHLOR 99 CO2 23 ANION 13 BUN 19 CREAT 0.61 CHEM: Recent Labs 12/12/17 0616 ALB 2.6* TPROT 6.1* CA 8.6 MG 2.1 HEPATIC: Recent Labs 12/12/17 0616 ALKPHOS 73 ALT 32 AST 19 TBILI 0.2 URINALYSIS:No results for input(s): PH, SPGR, UGLUC, UBILI, UKET, UHB, UPROT, UROBIL, UWBC, SSA in the last 168 hours. Invalid input(s): NITR CARDIAC: Recent Labs 12/12/17 0616 CKMBP CK MB % not reported with CK <100 U/L. ? Assessment and Plan 72 year old female with MRSA bacteremia source - infected nerves stimulator and battery. MRI at OSHshowing concerns of edema around spinal cord. Active Hospital Problems Diagnosis Date Noted - MRSA bacteremia 12/12/2017 Overview Note: Recent spine stimulator source. Removal done 11/30 in OSH with heavy purulence at both surgical sites. CT showed no clear abscess but sizeable areas of induration. 12/03 MOSES negative for vegetation. Patient initially was on vancomycin but was changed to Daptomycin due to positive blood cultures. MRI spine - abnormal enhancement in the anterior epidural space at T2-3, T3-4, T4-5 and posterior epidural space at T8-11 consistent with inflammatory or infectious process. Irregular enhancement of anterior surface of thoracic spinal cord at T2-3 and T4 may represent an infectious process, with signal abnormality at T3 and T4 suggesting edema. Plan Switch Daptomycin to vancomycin. ID consult appreciate recs . BCx draw, follow Neurosurgery consult, no surgery for now, wound vac tomorrow - Soft tissue abscess 12/12/2017 Overview Note: Recent spine stimulator source. Removal done 11/30 in OSH with heavy purulence at both surgical sites. CT showed no clear abscess but sizeable areas of induration. . MRI spine - abnormal enhancement in the anterior epidural space at T2-3, T3-4, T4-5 and posterior epidural space at T8-11 consistent with inflammatory or infectious process. Irregular enhancement of anterior surface of thoracic spinal cord at T2-3 and T4 may represent an infectious process, with signal abnormality at T3 and T4 suggesting edema. S/P I and D yesterday by general surgery. Plan Neurosurgery consult ID consult. BCx drawn. - Essential hypertension, benign 12/09/2006 Overview Note: Home meds - lisinopril and HCTZ Plan Continue lisinopril 10mg Hold HCTZ # VTE PPx: Yes # GI PPx: Yes # Diet: Regular # Dispo: Pending clinical course # Code Status: Full SIGNATURE: Ryne Linn MD PATIENT NAME: Stephie Ugarte DATE: December 13, 2017 TIME: 1:01 PM Pager: [phone] Note is not final until addended or cosigned by staff. ATTENDING PHYSICIAN: Patient seen and evaluated today Hall elements of history and physical examination of the patient were confirmed. The assessment and plan were formulated and discussed with the team on Rounds. I reviewed the resident's note, examined the patient and agree with the documented findings and plan of care. Subcutaneous abscesses drained No further events overnight - this am's MRI suggested thoracic epidural infection/collection - evaluated by Orthopedic team Continue Vancomycin and continue monitoring Neurological signs for cord compression Wade Cevallos MD [place]- [phone] ?? DISCHARGE SUMMARY Observed: 12/13/2017 Status: F Source: [place] 9:53 AM [facility] REPOSITORY 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 #7 proteinuria #8 hypokalemia - Secondary Discharge Diagnosis Chronic Problems Chronic back pain (Chronic) Asthma (Chronic) HTN (hypertension) (Chronic) COPD (chronic obstructive pulmonary disease) (Chronic) Hospital Course and Treatment Consultations 12/03/17 06:52 Consult: Onc/Wound/strong nitric operator Routine Comment: wounds-right lower back/buttocks AND mid back Operations: - - Removal of spinal cord stimulator 11/29/17, incision and debridement of abscessed wounds on 12/11/17 Procedures: 2-D Echocardiogram, - - Transesophageal echocardiogram Summary of Care Provided: The patient is a 72 year old F seen in the emergency room at [facility] with a chief complaint of confusion and redness in her lower back area. Patient had a spinal cord stimulator inserted in October 2017. Workup in the emergency room included a CT scan of the brain which did not show any acute process, chest x-ray did not show any active infiltrate, CBC showed a mild anemia with hemoglobin of 9.8. CMP showed a potassium of 3.1, BUN was slightly elevated at 28. Urinalysis was carried out and did not show any urinary tract infection. Examination in the emergency room showed a reddened area over the patient's mid back area that was tender to palpation, there was also a second area near the right upper buttocks there was also reddened. It was felt that the patient had cellulitis and altered mental status-the etiology of this was unknown. Patient was admitted to [place] [address], she was placed on IV fluids and IV antibiotics, she was seen by pain management -who had placed her spinal cord stimulator -on 11/30/17, it was felt necessary to remove the spinal cord stimulator, this was done on that date and cultures were obtained which were positive for MRSA. Patient's mental status improved with IV antibiotics and her encephalopathy was felt to be secondary to metabolic reasons-her serious infection and sepsis. Patient was seen in consultation by infectious diseases and it was also noted that the patient had protein in her urine and was seen by nephrology. Patient was also seen by PT and OT. During her hospital stay, patient had several blood cultures obtained which were all positive for MRSA, she had a MOSES performed which showed no evidence of vegetation in the heart. Due to her persistent positive blood cultures, patient was taken to surgery on 12/11/17 and 2 areas were debrided and flushed on her mid back area and her right upper buttocks area, copious amounts of pus was obtained from both sites. An MRI of the patient's thoracic and lumbar spine was obtained on that same date, the thoracic spine MRI indicated either an infectious or inflammatory process in the epidural area of the thoracic spine and multiple levels, MRI of the lumbar spine showed evidence of degenerative joint disease but no evidence of any inflammation or infectious process. It was felt prudent that the patient be transferred to tertiary care facility for evaluation by neurosurgery, [facility] in [place] was contacted and accepted the patient. Patient was transferred to [facility] on 12/12/17. Physical exam: On examination she appeared in good health and spirits. Vital signs as documented. Skin warm and dry and without overt rashes. Neck without JVD. Lungs clear. Heart exam notable for regular rhythm, normal sounds and absence of murmurs, rubs or gallops. Abdomen unremarkable and without evidence of organomegaly, masses, or abdominal aortic enlargement. Extremities nonedematous. Neuro: Cranial nerves II through XII are intact, there were no focal motor deficits noted. Psych: Patient was alert and oriented x3, she was appropriate, she did not appear anxious, she had a flat affect. On 12/12/17, patient was transferred to [facility] in [place] in stable condition - Physical Exam Vital Signs Temp Pulse Resp BP Pulse Ox 97.9 F 83 16 123/61 H 92 12/11/17 21:11 12/11/17 21:11 12/11/17 21:11 12/11/17 21:11 12/11/17 21:11 Oxygen Flow Rate (L/min) 1 Oxygen Delivery Method Room Air Weight: 79.8 kg Body Mass Index (BMI) 32.1 Intake and Output for Last 24 Hours Intake Total 2152 / 2152 Output Total 600 / 600 Balance 1552 / 1552 Microbiology Past 72 Hours 12/11/17 08:34 Gram Stain - Final Tissue - Hip Wound Culture - Final 12/11/17 08:34 Gram Stain - Final Wound Abcess - Back Wound Culture - Final Home Medications: Medications to take at Discharge Fluticasone/Salmeterol [Advair 250/50 Mcg Diskus] 1 puff INHALATION DAILY PRN 09/28/15 Lisinopril/Hydrochlorothiazide [Zestoretic 12/04.5 Tablet] 1 tablet PO DAILY 01/14/16 Acetaminophen [Tylenol Tablet] 650 mg PO Q6 PRN 03/24/17 Senna/Docusate Sodium [Senokot-S] 1 tablet PO DAILY 11/10/17 Amox/Clavulanate Tablet [Augmentin Tablet] 875 mg PO Q12H #20 tablet 11/28/17 Ondansetron [Zofran Odt] 8 mg PO Q8H PRN PRN #10 tab 11/28/17 Potassium Cloride Effervescent [Potassium Chl 25 Meq Eff (For Liquid)] 25 meq PO DAILY #7 tablet.eff 11/28/17 DAPTOmycin [Cubicin] 650 mg IV Q24 #25 vial 12/10/17 Following Prescrptions Were Given to Patient: DAPTOmycin [Cubicin] 650 mg IV Q24 #25 vial Primary Care Physician: Elkin Wood MD [Primary Care Provider] - Patient Instructions: Daptomycin Solution for injection Disposition: Acute care Hospital Minutes spent on discharge:: 32 Patient Condition:: Stable Medical Necessity - Tobacco Use Smoking Status: Never smoker Meaningful Use Info Meaningful Use Diagnoses (Choose all that apply): None applicable Code Visit Inpatient E AND M: 90075 Disch Hosp 12/13/17 0953 <Electronically signed by Mahi Daigle DO> Date Mahi Daigle DO Cosigner Signature (if applicable): Date CC: Elkin Wood MD; Mahi Daigle DO Signed CONSULT PROG Observed: 12/13/2017 Status: COMPLETED Source: [place] 8:[address] [facility] [place] REPOSITORY O ID: [id number] Author: Nadya Peñaloza) Jose Service: Infectious Disease Author Type: Physician Type: Consult Progress Note Filed: 12/13/2017 11:44 AM Note Text: INFECTIOUS DISEASE CONSULT SERVICE PROGRESS NOTE Date: December 13, 2017 Patient Name: Stephie Ugarte Interval Events: Low grade temp Note MRI findings==T2/3 epidural abscess Pt reports overall feeling better. No new areas of pain MEDICATIONS Medications reviewed. Current hospital medications: 0.9% NaCl 3-5 mL 3-5 mL INTRAVENOUS q 12 H oxyCODONE IR 5-10 mg tab(s) (ROXICODONE) 5-10 mg ORAL q 6 H PRN perflutren lipid microspheres 1.1 mg/mL 1.3 mL injection (DEFINITY) 1.3 mL INTRAVENOUS DIRECTED PRN lisinopril 10 mg tab(s) (ZESTRIL, PRINIVIL) 10 mg ORAL DAILY ondansetron (PF) 4 mg injection (ZOFRAN) 4 mg INTRAVENOUS q 6 H PRN iv contrast (radiology procedure) INTRAVENOUS DIRECTED PRN iv contrast (radiology procedure) INTRAVENOUS DIRECTED PRN vancomycin dosing and monitoring per pharmacy OTHER As Directed vancomycin 1.25 g in D5W 250 mL (VANCOCIN) 1.25 g INTRAVENOUS q 12 HR iv contrast (radiology procedure) INTRAVENOUS DIRECTED PRN iv contrast (radiology procedure) INTRAVENOUS DIRECTED PRN iv contrast (radiology procedure) INTRAVENOUS DIRECTED PRN EXAMINATION: Vital signs: BP (!) 103/46 Pulse 96 Temp 36.5 ?C (97.7 ?F) (Oral) Resp 18 Wt 84.4 kg (186 lb 1.1 oz) SpO2 96% BMI 32.44 kg/m? Temp (24hrs), Av.2 ?C (98.9 ?F), Min:36.5 ?C (97.7 ?F), Max:38 ?C (100.4 ?F) GENERAL APPEARANCE:alert, in no acute distress SKIN: negative, did not unpack wounds today HEAD/SINUSES: No significant findings. EYES: PERRLA, conjunctiva cleare NECK: Supple LUNGS: Clear to auscultation, No crackles. HEART: Regular rate and rhythm ABDOMEN: Soft, Non-tender, Nondistended, Normal bowel sounds EXTREMITIES: negative edema NEURO: Awake, alert and oriented x 3, strength 5/5 in R foot improved. L leg 5/5 LABORATORY DATA: WBC (k/uL) Date Value 12/12/2017 9.16 09/16/2004 10.50 09/09/2004 7.16 Hemoglobin (g/dL) Date Value 12/12/2017 7.4 09/16/2004 13.1 09/09/2004 13.3 Platelet Count Date Value 12/12/2017 565 k/uL 09/16/2004 313 K/uL 09/09/2004 266 K/uL Creatinine (mg/dL) Date Value 12/12/2017 0.61 07/20/2012 0.83 09/16/2004 0.6 MICROBIOLOGY DATA: reviewed IMAGING DATA: Films personally reviewed. ASSESSMENT: Has hx of ?c spine hardware, lumbar laminectomy, b/l TKA, b/l RODGER. Underwent spinal cord stimulator placement 11/13, per her daughter was healing ok, but at f/u appt wound was draining copious bloody fluid. Began feeling unwell, then become moribund. Went to OSH--found to be MRSA bacteremia.. Underwent stimulator removal 11/30, per pt's daughter wounds were sewn shut Initially cleared MRSA , then relapsed ?per records Was changed to daptomycin (NOT due to any intolerance of vancomycin) ultimely wounds becam more swollen--opened 12/11, with gross purulence per daughter, now packed. Repeat MRI at [facility]--shows T2/3 epidural abscess with ?cord compression and pachymeningitis RECOMMENDATIONS: Continue vancomycin--ensure trough 15-25 Monitoring for therapeutic and adverse effects to intravenous antibiotics. Await repeat blood culture results Await spine surgery--?needs intervention as has been on therapy since first week of November--spoke with primary team--have d/w spine surgery Nadya Garcia MD Staff physician Infectious Diseases Pager: [phone] Date and Time of Service: December 13, 2017 / CBC AND DIFFERENTIAL Collected: 12/13/2017 Status: F Source: [place] 7:[address] [facility] [place] REPOSITORY TYPE CODE TESTS RESULT OUT OF REFERENCE UNITS RANGE LAB WBC 3.70-11.00 k/uL WBC 7.65 LAB RBC 3.90-5.20 m/uL Low RBC 2.42 LAB HGB 11.5-15.5 g/dL Low Hemoglobin 6.6 LAB HCT 36.0-46.0 % Low Hematocrit 20.4 LAB MCV 80.0-100.0 fL MCV 84.3 LAB MCH 26.0-34.0 pG MCH 27.3 LAB MCHC 30.5-36.0 g/dL MCHC 32.4 LAB RDWCV 11.5-15.0 % RDW-CV 14.6 LAB PLTCT 150-400 k/uL Platelet High Count 485 LAB MPV 9.0-12.7 fL Low MPV 8.8 LAB ANEUT % Neut% 69.7 LAB AANEUT 1.45-7.50 k/uL Abs Neut 5.34 LAB ALYMP % Lymph% 16.5 LAB AALYMP 1.00-4.00 k/uL Abs Lymph 1.26 LAB AMONO % Mchenry% 10.7 LAB AAMONO <0.87 k/uL Abs Mchenry 0.82 LAB AEOS % Eosin% 2.4 LAB AAEOS <0.46 k/uL Abs Eosin 0.18 LAB ABASO % Baso% 0.7 LAB AABASO <0.11 k/uL Abs Baso 0.05 LAB AUNRBC 0 /100 WBC NRBCs 0.0 LAB ABNRBC <0.01 k/uL Absolute nRBC <0.01 LAB DTYP DTYPE Auto Diff Performed By: #### CBCDIF #### [facility] [place] [employer] [address] [address] TYPE AND SCREEN Collected: 12/13/2017 Status: F Source: [place] 7:55 AM [facility] REPOSITORY TYPE CODE TESTS RESULT OUT OF REFERENCE UNITS RANGE LAB %ABR A ABO/RH(D) POSITIVE LAB % Antibody NEG Screen Performed By: #### TSCR #### [facility] [employer] [address] [place] [address] MRI LUMBAR SPINE Observed: 12/13/2017 Status: F Source: [place] WO/W IVCON 12:53 AM [facility] REPOSITORY * * *Final Report* * * DATE OF EXAM: Dec 13 2017 12:53AM [facility] [id number] - MRI LUMBAR SPINE WO/W IVCON / PROCEDURE REASON: Intraspinal abscess or granuloma * * * * Physician Interpretation * * * * EXAMINATION: MRI CERVICAL SPINE WO/W IVCON, MRI THORACIC SPINE WO/W IVCON, MRI LUMBAR SPINE WO/W IVCON CLINICAL HISTORY: Infection Spinal cord injury, Intraspinal abscess or granuloma, (accession [id number]), Intraspinal abscess or granuloma, (accession [id number]), Intraspinal abscess or granuloma, (accession [id number]) TECHNIQUE: Routine cervical, thoracic, and lumbosacral spine MR protocol without and with intravenous gadolinium. MQ: [id number]_3 Contrast: IV administration of 16 ml of Dotarem COMPARISON: CT cervical spine 07/23/2012 RESULT: CERVICAL: Counting reference: Craniocervical junction. Anatomic Variants: None. Alignment: Straightening of cervical lordosis. Grade 1 anterolisthesis at C3-4. Stepwise 1 anterolisthesis at C6-T2, likely degenerative. Craniocervical junction: Craniocervical junction is normal. Cord: The cervical spinal cord is within normal limits of signal intensity but is compressed as outlined below. No abnormal cord enhancement. Bone marrow signal/fracture: Postsurgical changes from C4 through C6 anterior instrumented spinal fusion with bony fusion of the C4-C6 vertebral bodies. No evidence of pathologic marrow infiltration. No evidence of prior fracture. Cervical soft tissues: The paraspinal soft tissues are within normal limits. C2-C3: Canal and foramina are patent. C3-C4: Disc uncovering flattens the ventral cord. Foramina patent. C4-C5: Canal and foramina are patent. C5-C6: Uncovertebral and facet hypertrophy contribute to mild bilateral foraminal stenosis. Canal is patent. C6-C7: Canal and foramina are patent. C7-T1: Canal and foramina are patent. THORACIC: Counting reference: Lumbosacral junction. For the purposes of this report, L4-5 is considered the level of the iliac crest and there are 5 lumbar-type vertebrae. Anatomic Variants: None. Alignment: Alignment is anatomic. Cord: There is into enhancement along the anterior aspect of the spinal canal extending from T2 to T5 level, highly concerning for pachymeningitis. There is focal collection with rim enhancement at T2-3 measures 1.6 cm in length and 0.5 cm in AP dimension with mass effect on the cord at that level. There is T2/FLAIR hyperintensity in the thoracic cord extending from T2 to T4-T5 level, concerning for cord edema. Bone marrow signal/fracture: No evidence of pathologic marrow infiltration. No evidence of prior fracture. Thoracic soft tissues: The paraspinal soft tissues are within normal limits. Canal and foramina: The thoracic canal and foramina are patent within the constraints of the study. LUMBAR: Counting reference: Lumbosacral junction. For the purposes of this report, L4-5 is considered the level of the iliac crest and there are 5 lumbar-type vertebrae. Anatomic Variants: None. Alignment: Stepwise anterolisthesis at L2-L5 Bone marrow signal/fracture: Postsurgical changes from L3- S1 laminectomy and spinal instrument posterior fusion. There is a 3.5 x 2.8 x 5.2 cm collection with smooth rim enhancement in the surgical bed, extending from L3 to L5-S1 level. There is surrounding soft tissue edema and possibly enhancement, probably related to recent surgery. More superiorly at the thoracolumbar junction, there is a 2.1 x 3.4 x 3.5 cm T1 and T2 hypointense collection with no definite enhancement spanning the T12 vertebral body and extending to the skin surface, which may represent a chronic proteinaceous collection/skin ulcer. No evidence of pathologic marrow infiltration. No evidence of prior fracture. Conus: There is a 5 mm T2 hypointense, enhancing lesion in the cauda equina nerve roots at level L4-5, which probably represents a nerve sheath tumor like schwannoma T12-L1: Canal and foramina are patent. L1-L2: Retrolisthesis and disc bulge, facet hypertrophy and ligamentum flavum infolding contribute to mild canal stenosis. Foramina are patent. L2-L3: Anterolisthesis with disc uncovering, facet hypertrophy and ligamentum flavum infolding contribute to severe canal stenosis, severe right and mild left foraminal stenosis. Laxity of the nerve roots of the cauda equina just above the level of this interspace is indicative of the degree of nerve root trapping. L3-L4: Canal and foramina are patent L4-L5: Anterolisthesis with disc uncovering, facet hypertrophy and ligamentum flavum infolding contribute to mild right and moderate left foraminal stenosis. Canal is decompressed L5-S1: Disc bulge, facet hypertrophy and ligamentum flavum infolding contribute to mild left foraminal stenosis. Canal is decompressed Sacrum and iliac wings: The visualized sacrum and iliac wings are within normal limits. The presacral soft tissues are normal in appearance. IMPRESSION: Pachymeningitis in the thoracic spine with epidural abscess at T2-3 with resultant cord compression and cord edema. Postoperative changes from L3 S1 laminectomy and posterior spinal fusion. A 3.5 cm collection in the surgical bed likely represent postsurgical changes/bland seroma. 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 No cord edema. Lumbar spondylosis worst at L2-3 with severe canal and right foramina stenosis. Laxity of the nerve roots of the cauda equina just above the interspace is indicative of the degree of nerve root trapping in the central canal. Cervical Anatomic Variant: None. Assume 7 cervical vertebrae with counting from the craniocervical junction. Thoracic/Lumbar Anatomic Variant: None. L4-5 is considered the level of the iliac crest and assume there are 5 lumbar-type vertebrae. Program Schedule Clerk: ALEN Transcribe Date/Time: Dec 13 2017 1:21A Dictated by : CHARITY RASCON MD This examination was interpreted and the report reviewed and electronically signed by: DIYA MARRERO MD on Dec 13 2017 2:29AM EST [id number] MRI THORACIC SPINE Observed: 12/13/2017 Status: F Source: [place] WO/W IVCON 12:53 AM [facility] REPOSITORY * * *Final Report* * * DATE OF EXAM: Dec 13 2017 12:53AM [facility] [id number] - MRI THORACIC SPINE WO/W IVCON / PROCEDURE REASON: Intraspinal abscess or granuloma * * * * Physician Interpretation * * * * EXAMINATION: MRI CERVICAL SPINE WO/W IVCON, MRI THORACIC SPINE WO/W IVCON, MRI LUMBAR SPINE WO/W IVCON CLINICAL HISTORY: Infection Spinal cord injury, Intraspinal abscess or granuloma, (accession [id number]), Intraspinal abscess or granuloma, (accession [id number]), Intraspinal abscess or granuloma, (accession [id number]) TECHNIQUE: Routine cervical, thoracic, and lumbosacral spine MR protocol without and with intravenous gadolinium. MQ: MRCTLWO_3 Contrast: IV administration of 16 ml of Dotarem COMPARISON: CT cervical spine 07/23/2012 RESULT: CERVICAL: Counting reference: Craniocervical junction. Anatomic Variants: None. Alignment: Straightening of cervical lordosis. Grade 1 anterolisthesis at C3-4. Stepwise 1 anterolisthesis at C6-T2, likely degenerative. Craniocervical junction: Craniocervical junction is normal. Cord: The cervical spinal cord is within normal limits of signal intensity but is compressed as outlined below. No abnormal cord enhancement. Bone marrow signal/fracture: Postsurgical changes from C4 through C6 anterior instrumented spinal fusion with bony fusion of the C4-C6 vertebral bodies. No evidence of pathologic marrow infiltration. No evidence of prior fracture. Cervical soft tissues: The paraspinal soft tissues are within normal limits. C2-C3: Canal and foramina are patent. C3-C4: Disc uncovering flattens the ventral cord. Foramina patent. C4-C5: Canal and foramina are patent. C5-C6: Uncovertebral and facet hypertrophy contribute to mild bilateral foraminal stenosis. Canal is patent. C6-C7: Canal and foramina are patent. C7-T1: Canal and foramina are patent. THORACIC: Counting reference: Lumbosacral junction. For the purposes of this report, L4-5 is considered the level of the iliac crest and there are 5 lumbar-type vertebrae. Anatomic Variants: None. Alignment: Alignment is anatomic. Cord: There is into enhancement along the anterior aspect of the spinal canal extending from T2 to T5 level, highly concerning for pachymeningitis. There is focal collection with rim enhancement at T2-3 measures 1.6 cm in length and 0.5 cm in AP dimension with mass effect on the cord at that level. There is T2/FLAIR hyperintensity in the thoracic cord extending from T2 to T4-T5 level, concerning for cord edema. Bone marrow signal/fracture: No evidence of pathologic marrow infiltration. No evidence of prior fracture. Thoracic soft tissues: The paraspinal soft tissues are within normal limits. Canal and foramina: The thoracic canal and foramina are patent within the constraints of the study. LUMBAR: Counting reference: Lumbosacral junction. For the purposes of this report, L4-5 is considered the level of the iliac crest and there are 5 lumbar-type vertebrae. Anatomic Variants: None. Alignment: Stepwise anterolisthesis at L2-L5 Bone marrow signal/fracture: Postsurgical changes from L3- S1 laminectomy and spinal instrument posterior fusion. There is a 3.5 x 2.8 x 5.2 cm collection with smooth rim enhancement in the surgical bed, extending from L3 to L5-S1 level. There is surrounding soft tissue edema and possibly enhancement, probably related to recent surgery. More superiorly at the thoracolumbar junction, there is a 2.1 x 3.4 x 3.5 cm T1 and T2 hypointense collection with no definite enhancement spanning the T12 vertebral body and extending to the skin surface, which may represent a chronic proteinaceous collection/skin ulcer. No evidence of pathologic marrow infiltration. No evidence of prior fracture. Conus: There is a 5 mm T2 hypointense, enhancing lesion in the cauda equina nerve roots at level L4-5, which probably represents a nerve sheath tumor like schwannoma T12-L1: Canal and foramina are patent. L1-L2: Retrolisthesis and disc bulge, facet hypertrophy and ligamentum flavum infolding contribute to mild canal stenosis. Foramina are patent. L2-L3: Anterolisthesis with disc uncovering, facet hypertrophy and ligamentum flavum infolding contribute to severe canal stenosis, severe right and mild left foraminal stenosis. Laxity of the nerve roots of the cauda equina just above the level of this interspace is indicative of the degree of nerve root trapping. L3-L4: Canal and foramina are patent L4-L5: Anterolisthesis with disc uncovering, facet hypertrophy and ligamentum flavum infolding contribute to mild right and moderate left foraminal stenosis. Canal is decompressed L5-S1: Disc bulge, facet hypertrophy and ligamentum flavum infolding contribute to mild left foraminal stenosis. Canal is decompressed Sacrum and iliac wings: The visualized sacrum and iliac wings are within normal limits. The presacral soft tissues are normal in appearance. IMPRESSION: Pachymeningitis in the thoracic spine with epidural abscess at T2-3 with resultant cord compression and cord edema. Postoperative changes from L3 S1 laminectomy and posterior spinal fusion. A 3.5 cm collection in the surgical bed likely represent postsurgical changes/bland seroma. 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 No cord edema. Lumbar spondylosis worst at L2-3 with severe canal and right foramina stenosis. Laxity of the nerve roots of the cauda equina just above the interspace is indicative of the degree of nerve root trapping in the central canal. Cervical Anatomic Variant: None. Assume 7 cervical vertebrae with counting from the craniocervical junction. Thoracic/Lumbar Anatomic Variant: None. L4-5 is considered the level of the iliac crest and assume there are 5 lumbar-type vertebrae. Program Schedule Clerk: ALEN Transcribe Date/Time: Dec 13 2017 1:21A Dictated by : CHARITY RASCON MD This examination was interpreted and the report reviewed and electronically signed by: DIYA MARRERO MD on Dec 13 2017 2:29AM EST [id number] MRI CERVICAL SPINE Observed: 12/13/2017 Status: F Source: [place] WO/W IVCON 12:[address] [facility] REPOSITORY * * *Final Report* * * DATE OF EXAM: Dec 13 2017 12:53AM [facility] [id number] - MRI CERVICAL SPINE WO/W IVCON / PROCEDURE REASON: Spinal cord injury * * * * Physician Interpretation * * * * EXAMINATION: MRI CERVICAL SPINE WO/W IVCON, MRI THORACIC SPINE WO/W IVCON, MRI LUMBAR SPINE WO/W IVCON CLINICAL HISTORY: Infection Spinal cord injury, Intraspinal abscess or granuloma, (accession [id number]), Intraspinal abscess or granuloma, (accession [id number]), Intraspinal abscess or granuloma, (accession [id number]) TECHNIQUE: Routine cervical, thoracic, and lumbosacral spine MR protocol without and with intravenous gadolinium. MQ: [id number] Contrast: IV administration of 16 ml of Dotarem COMPARISON: CT cervical spine 07/23/2012 RESULT: CERVICAL: Counting reference: Craniocervical junction. Anatomic Variants: None. Alignment: Straightening of cervical lordosis. Grade 1 anterolisthesis at C3-4. Stepwise 1 anterolisthesis at C6-T2, likely degenerative. Craniocervical junction: Craniocervical junction is normal. Cord: The cervical spinal cord is within normal limits of signal intensity but is compressed as outlined below. No abnormal cord enhancement. Bone marrow signal/fracture: Postsurgical changes from C4 through C6 anterior instrumented spinal fusion with bony fusion of the C4-C6 vertebral bodies. No evidence of pathologic marrow infiltration. No evidence of prior fracture. Cervical soft tissues: The paraspinal soft tissues are within normal limits. C2-C3: Canal and foramina are patent. C3-C4: Disc uncovering flattens the ventral cord. Foramina patent. C4-C5: Canal and foramina are patent. C5-C6: Uncovertebral and facet hypertrophy contribute to mild bilateral foraminal stenosis. Canal is patent. C6-C7: Canal and foramina are patent. C7-T1: Canal and foramina are patent. THORACIC: Counting reference: Lumbosacral junction. For the purposes of this report, L4-5 is considered the level of the iliac crest and there are 5 lumbar-type vertebrae. Anatomic Variants: None. Alignment: Alignment is anatomic. Cord: There is into enhancement along the anterior aspect of the spinal canal extending from T2 to T5 level, highly concerning for pachymeningitis. There is focal collection with rim enhancement at T2-3 measures 1.6 cm in length and 0.5 cm in AP dimension with mass effect on the cord at that level. There is T2/FLAIR hyperintensity in the thoracic cord extending from T2 to T4-T5 level, concerning for cord edema. Bone marrow signal/fracture: No evidence of pathologic marrow infiltration. No evidence of prior fracture. Thoracic soft tissues: The paraspinal soft tissues are within normal limits. Canal and foramina: The thoracic canal and foramina are patent within the constraints of the study. LUMBAR: Counting reference: Lumbosacral junction. For the purposes of this report, L4-5 is considered the level of the iliac crest and there are 5 lumbar-type vertebrae. Anatomic Variants: None. Alignment: Stepwise anterolisthesis at L2-L5 Bone marrow signal/fracture: Postsurgical changes from L3- S1 laminectomy and spinal instrument posterior fusion. There is a 3.5 x 2.8 x 5.2 cm collection with smooth rim enhancement in the surgical bed, extending from L3 to L5-S1 level. There is surrounding soft tissue edema and possibly enhancement, probably related to recent surgery. More superiorly at the thoracolumbar junction, there is a 2.1 x 3.4 x 3.5 cm T1 and T2 hypointense collection with no definite enhancement spanning the T12 vertebral body and extending to the skin surface, which may represent a chronic proteinaceous collection/skin ulcer. No evidence of pathologic marrow infiltration. No evidence of prior fracture. Conus: There is a 5 mm T2 hypointense, enhancing lesion in the cauda equina nerve roots at level L4-5, which probably represents a nerve sheath tumor like schwannoma T12-L1: Canal and foramina are patent. L1-L2: Retrolisthesis and disc bulge, facet hypertrophy and ligamentum flavum infolding contribute to mild canal stenosis. Foramina are patent. L2-L3: Anterolisthesis with disc uncovering, facet hypertrophy and ligamentum flavum infolding contribute to severe canal stenosis, severe right and mild left foraminal stenosis. Laxity of the nerve roots of the cauda equina just above the level of this interspace is indicative of the degree of nerve root trapping. L3-L4: Canal and foramina are patent L4-L5: Anterolisthesis with disc uncovering, facet hypertrophy and ligamentum flavum infolding contribute to mild right and moderate left foraminal stenosis. Canal is decompressed L5-S1: Disc bulge, facet hypertrophy and ligamentum flavum infolding contribute to mild left foraminal stenosis. Canal is decompressed Sacrum and iliac wings: The visualized sacrum and iliac wings are within normal limits. The presacral soft tissues are normal in appearance. IMPRESSION: Pachymeningitis in the thoracic spine with epidural abscess at T2-3 with resultant cord compression and cord edema. Postoperative changes from L3 S1 laminectomy and posterior spinal fusion. A 3.5 cm collection in the surgical bed likely represent postsurgical changes/bland seroma. 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 No cord edema. Lumbar spondylosis worst at L2-3 with severe canal and right foramina stenosis. Laxity of the nerve roots of the cauda equina just above the interspace is indicative of the degree of nerve root trapping in the central canal. Cervical Anatomic Variant: None. Assume 7 cervical vertebrae with counting from the craniocervical junction. Thoracic/Lumbar Anatomic Variant: None. L4-5 is considered the level of the iliac crest and assume there are 5 lumbar-type vertebrae. Program Schedule Clerk: ALEN Transcribe Date/Time: Dec 13 2017 1:21A Dictated by : CHARITY RASCON MD This examination was interpreted and the report reviewed and electronically signed by: DIYA MARRERO MD on Dec 13 2017 2:29AM EST [id number] MRI PELVIS WO/W Observed: 12/13/2017 Status: F Source: [place] IVCON 12:53 AM [facility] REPOSITORY * * *Final Report* * * DATE OF EXAM: Dec 13 2017 12:53AM [facility] [id number] - MRI PELVIS WO/W IVCON / PROCEDURE REASON: Infection and inflammatory reaction due to implanted electronic neurostimulator, * * * * Physician Interpretation * * * * History: Infection and inflammatory reaction due to implanted electronic neurostimulator, according electronic medical record: MRSA bacteremia with spine stimulator source removal 11/30/2017 at outside hospital MR of the pelvis prior to and following intravenous contrast menstruation: TECHNIQUE: Multiplane, multisequence imaging of the pelvis was performed prior to contrast administration. Following IV administration of 16 ml of Dotarem multiplane fat suppressed T1-weighted images were obtained. MRI PELVIS WO/W IVCON -- Comparison: No prior images are available for comparison at this time. FINDING/ RESULT: There is a 4 x 4 0.6 cm skin and soft tissue soft tissue defect in the subcutaneous fat of the posterior right buttock the measures 2.9 cm deep. There is localized subcutaneous edema extending about the skin defect for 4 cm. Edema also extends superiorly to the right paraspinal region most intense in a linear fashion likely the region of the removed stimulator. The extensive posterior paraspinal subcutaneous edema crosses the midline superiorly with apparent fluid collection, more completely described in spine MR. There is no apparent fluid collection in the region of the pacer box pocket/soft tissue defect. Following contrast administration, there is mild enhancement of the regions of subcutaneous edema. Regions of the hip are obscured by metal artifact. Within these limitations, no hip abnormality is seen. Metal artifact in the region of the lumbar spine fusion also obscures local regions. Fluid collection in the surgical area of the lower lumbar spine is best described on the spine MR. There is a small amount of nonspecific presacral fluid IMPRESSION: Soft tissue defect in the subcutaneous fat of the right buttock. No deep extension to the gluteal muscles or local abscess is identified. Program Schedule Clerk: ALEN Transcribe Date/Time: Dec 13 2017 11:36A Dictated by : MARIE BENEDICT MD This examination was interpreted and the report reviewed and electronically signed by: MARIE BENEDICT MD on Dec 13 2017 11:48AM EST [id number] PROGRESS Observed: 12/13/2017 Status: COMPLETED Source: [place] 12:47 AM [facility] REPOSITORY HNO ID: [id number] Author: Jenn Cody Service: (none) Author Type: (none) Type: Progress Notes Filed: 12/13/2017 12:48 AM Note Text: Radiology Service Progress Note PATIENT NAME: Stephie Ugarte DATE OF SERVICE: December 13, 2017 TIME: 12:47 AM PATIENT IDENTITY VERIFICATION COMPLETED USING TWO (2) METHODS: Patient confirmed name verbally and ID band matches.. PATIENT GENDER DATA: Female. status: : No status: NO. PATIENT RELEVANT IMPLANT DATA REVIEWED: Yes RADIOLOGY DEPARTMENT: MR; Exam(s) Completed: Lower MSK: Pelvis, bilateral Spine: WHOLE spine PERIPHERAL IV DATA: Inpatient: see LDA documentation SIGNED BY: Jenn Cody December 13, 2017 12:47 AM XR LUMBAR 2V AP/LAT Observed: 12/12/2017 Status: F Source: [place] 5:57 PM [facility] REPOSITORY * * *Final Report* * * DATE OF EXAM: Dec 12 2017 5:57PM [facility] [id number] - XR LUMBAR 2V AP/LAT / PROCEDURE REASON: L/S-spine fx, traumatic * * * * Physician Interpretation * * * * Examination: XR THORACIC 3V AP/LAT/SWIMMERS, XR LUMBAR 2V AP/LAT TECHNIQUE: XR THORACIC 3V AP/LAT/SWIMMERS, XR LUMBAR 2V AP/LAT -- with views on images EXAM DATE: 12/12/2017 5:57 PM CLINICAL HISTORY: Fall, low back pain, right lateral hip pain, mid thigh pain COMPARISON: Lumbar spine radiograph dated 02/28/2017 RESULT: Counting reference: Lumbosacral junction. For the purposes of this report, L5-S1 is considered the last lumbar type disc space and L4-5 is considered the level of the iliac crest. Post surgical changes of L3-S1 posterior bonny and screw fusion and L3-L5 decompression. There are skin justina overlying the mid lower thoracic spine. Status post bilateral hip arthroplasties. There is grade 1 anterolisthesis of L2 on L3 and L4 on L5. Vertebral bodies demonstrate normal height and contour. There is intervertebral disc space narrowing at all lumbar levels. Flowing bridging osteophytes throughout the thoracic and lumbar spine.. IMPRESSION: Postsurgical and degenerative changes as described. Program Schedule Clerk: PSCB Transcribe Date/Time: Dec 12 2017 6:14P Dictated by : SUZANNE RESTREPO MD This examination was interpreted and the report reviewed and electronically signed by: MARIE BENEDICT MD on Dec 12 2017 9:25PM EST [id number] XR THORACIC 3V Observed: 12/12/2017 Status: F Source: [facility] AP/LAT/[facility] 5:57 PM [facility] REPOSITORY * * *Final Report* * * DATE OF EXAM: Dec 12 2017 5:57PM [facility] [id number] - XR THORACIC 3V AP/LAT/SWIMMERS / PROCEDURE REASON: T-spine fx, traumatic * * * * Physician Interpretation * * * * Examination: XR THORACIC 3V AP/LAT/SWIMMERS, XR LUMBAR 2V AP/LAT TECHNIQUE: XR THORACIC 3V AP/LAT/SWIMMERS, XR LUMBAR 2V AP/LAT -- with views on images EXAM DATE: 12/12/2017 5:57 PM CLINICAL HISTORY: Fall, low back pain, right lateral hip pain, mid thigh pain COMPARISON: Lumbar spine radiograph dated 02/28/2017 RESULT: Counting reference: Lumbosacral junction. For the purposes of this report, L5-S1 is considered the last lumbar type disc space and L4-5 is considered the level of the iliac crest. Post surgical changes of L3-S1 posterior bonny and screw fusion and L3-L5 decompression. There are skin justina overlying the mid lower thoracic spine. Status post bilateral hip arthroplasties. There is grade 1 anterolisthesis of L2 on L3 and L4 on L5. Vertebral bodies demonstrate normal height and contour. There is intervertebral disc space narrowing at all lumbar levels. Flowing bridging osteophytes throughout the thoracic and lumbar spine.. IMPRESSION: Postsurgical and degenerative changes as described. Program Schedule Clerk: PSCDari Transcribe Date/Time: Dec 12 2017 6:14P Dictated by : SUZANNE RESTREPO MD This examination was interpreted and the report reviewed and electronically signed by: MARIE BENEDICT MD on Dec 12 2017 9:25PM EST [id number] NUTRITION Observed: 12/12/2017 Status: COMPLETED Source: [place] 5:[address] [facility] REPOSITORY HNO ID: [id number] Author: Allyn Yepez Service: Nutrition Therapy Author Type: Registered Dietitian Type: Nutrition Filed: 12/12/2017 5:56 PM Note Text: NUTRITION THERAPY SCREENING NOTE SERVICE DATE: 12/12/2017 SERVICE TIME: 5:50 PM NUTRITION CARE PLAN Patient's weight is stable and nutritional intake is adequate. Patient is not at risk for malnutrition at this time. Intervention: Meals and Snacks - Regular diet as tolerated Discharge Nutrition Recommendations: Diet: Regular diet Per HPI: 72 yo F w/recent neurostimulator removal on Nov 30 from right gluteal region who presents from OSH with antior and posterior epidural spaces in thoracic spine, currently bacteremic from infection Current Diet Order DIET NPO Order Specific Question: NPO Restrictions Answer: EXCEPT SIPS OF WATER Order Specific Question: NPO Restrictions Answer: EXCEPT ICE CHIPS Order Specific Question: NPO Restrictions Answer: EXCEPT MEDS Nutritional Intake Prior to Admission: <75% estimated energy needs over the past 2 week(s) - now resolving Pt dtr states poor intakes x 2 weeks, now improved. Dtr also states pt has man food preferences and was limited in choices at OSH. Dtr states pt likes to drink milk and continued to drink milk w/ meals at OSH. Good appetite/intake last PM Anthropometrics: Height: 5'3 Admission Weight: 84.4 kg (186 lb 1.1 oz) Current Weight: 84.4 kg (186 lb 1.1 oz) Body mass index is 32.44 kg/m?. IBW: 115# +/- 10% UBW: 175-180# (80 kg) Weight has not changed significantly Last Wt 12/12/17 : 84.4 kg (186 lb 1.1 oz) 11/09/17 : 80.3 kg (177 lb) 06/26/17 : 82.1 kg (181 lb) 02/28/17 : 84.1 kg (185 lb 6.4 oz) 11/05/16 : 83 kg (183 lb) 03/11/16 : 82.1 kg (181 lb) 09/26/15 : 81.2 kg (179 lb) 12/19/14 : 80.3 kg (177 lb) 06/16/14 : 82.1 kg (181 lb) 06/16/14 : 82.1 kg (181 lb) 03/01/14 : 84.4 kg (186 lb) 02/07/14 : 83.9 kg (185 lb) 08/05/13 : 78 kg (172 lb) 01/14/13 : 102.1 kg (225 lb) 10/22/12 : 77.7 kg (171 lb 3.2 oz) 10/18/12 : 73 kg (161 lb) 09/24/12 : 78.9 kg (174 lb) 07/20/12 : 81.3 kg (179 lb 3.2 oz) 02/21/12 : 79.4 kg (175 lb) 09/30/11 : 74.9 kg (165 lb 1.9 oz) Recent Labs 12/12/17 0616 GLUC 100* BUN 19 CREAT 0.61 NA 135* K 4.3 CHLOR 99 CO2 23 ALB 2.6* P 3.8 HB 7.4* HCT 23.0* WBC 9.16 MG 2.1 MNT Billing Type: Initial Assess/15 min 3 units SIGNATURE: Allyn Yepez, , RD, LD PATIENT NAME: Stephie Ugarte DATE: December 12, 2017 TIME: 5:50 PM PAGER: [phone] CONSULT PROG Observed: 12/12/2017 Status: COMPLETED Source: [place] 3:39 PM [facility] REPOSITORY [facility] ID: [id number] Author: Estrada Romero (Pharmacist) Service: Pharmacy Author Type: Pharmacist Type: Consult Progress Note Filed: 12/12/2017 3:42 PM Note Text: PHARMACY VANCOMYCIN DOSING NOTE Patient Name: Stephie Ugarte Admission Date: 12/12/2017 Date of Consult: 12/12/2017 Time of Consult: 3:39 PM Indication: WEB PRESSMAN infection Goal Range: 10-20 mcg/mL RECOMMENDATIONS/PLAN: Pharmacy consulted for vancomycin dosing for Stephie Ugarte, a 72 year old, female who is being treated with vancomycin for WEB PRESSMAN infection 1. Patient is currently ordered Vancomycin 1.5 gm IV q8hrs. Today is day 1 of therapy. 2. No vancomycin level has been drawn for this dosing regimen. 3. Will adjust vancomycin to 1.25 g with a dosing interval of q12h for weight 84.4kg and CrCl 87.6 4. The next vancomycin level will be ordered for 12/14/17 unless clinically indicated sooner. (Pharmacy will order) For age 72 years and obese We will follow patient renal function, vancomycin levels and doses with you during the course of therapy. Additional recommendations will appear in follow up notes. If you have any questions, please contact E[place] [phone]. Age: [age] year old Allergies: ALLERGIES Allergen Reactions - Anesthesia [Other] GI Upset Last 3 Encounter Wt Readings: Date: Wt: 12/11/2017 84.4 kg (186 lb 1.1 oz) 11/09/2017 80.3 kg (177 lb) 06/26/2017 82.1 kg (181 lb) Last 1 Encounter Ht Readings: Date: Ht: 03/11/2016 161.3 cm (5' 3.5) CrCl: 87.6 mL/min Temp (24hrs), Av.9 ?C (98.4 ?F), Min:36.3 ?C (97.4 ?F), Max:38 ?C (100.4 ?F) - Current Temp: 38 ?C (100.4 ?F) Labs BUN (mg/dL) Date Value 12/12/2017 19 07/20/2012 34 (H) 09/16/2004 10 Creatinine (mg/dL) Date Value 12/12/2017 0.61 07/20/2012 0.83 09/16/2004 0.6 (A) WBC (k/uL) Date Value 12/12/2017 9.16 09/16/2004 10.50 09/09/2004 7.16 Vancomycin Levels: No results found for: Narinder Landaverde PLAN OF CARE Observed: 12/12/2017 Status: COMPLETED Source: [place] 1:26 PM [facility] REPOSITORY O ID: [id number] Author: Chris Jarvis Ms Service: (none) Author Type: (none) Type: Plan of Care Filed: 12/12/2017 2:40 PM Note Text: Summary of OSH records: 11/13/17 spine stimulator placed at [facility] for chronic pain. 11/28 ED visit for AMS and fever. Blood cx: MRSA. Admitted. Started on vancomycin. CXR: no infiltrate UA: no evidence of UTI. New-onset proteinuria --> nephrology consult --> ordered LORA + protein electrophoresis: elevated Alpha-1 AND 2 (acute phase reactants). Negative NICKIE. 11/29 Blood Culture MRSA Daptomycin 0.50 ug/mL Sensitive 11/30 spinal stimulator device removed due to persistently positive blood cx. Purulent material expressed. Wound culture report: MRSA positive by PCR. ?switched to daptomycin Meth. resistant Staph. aureus Amount Growth 3+ Benzylpenicillin >=0.5 R Cefoxitin + Clindamycin <=0.25 S Inducable Clindamycin Resistan - Erythromycin <=0.25 S Gentamicin <=0.5 S Levofloxacin <=0.12 S Linezolid 2 S Oxacillin >=4 R Tigecycline <=0.12 S Rifampin <=0.5 S Tetracycline <=1 S Trimethoprim/Sulfametho <=10 S Vancomycin <=0.5 S CLSI guidelines does not recommend testing of cephalosporins. This interpretation is deduced from Beta-lactam/penicillin results. Cult, Anaerobic No anaerobic bacteria isolated. 12/01: Echo EF 70%. Evidence of diastolic dysfunction. NO RWMA. Given Lasix for HFpEF. No prior evidence of HFpEF. No cardiac history per pt. 12/03 MOSES: no vegetations. EF 65%. No assessment of diastolic function. 12/07 midline removed. Not sent for cultures. 12/09 blood cultures +ve MRSA. 12/10 WBC 14.2. Left shift on CBC. BUN 23. CR 0.66. 12/11 IANDD of the mid back and right hip incision. Copious amount of purulent fluid drained from both pocket and leads sites. Concern for deeper infection. Wound cultures collected. Packing placed. Wound culture prelim results: +ve for Staph Aureus. Sensitivity report will be done tonight. [facility] ([phone]) will fax over results 12/13 AM - paper chart. MRI 12/11 Disc available in patient's paper chart Spine - Thoracic There is abnormal enhancement in the anterior epidural space at T2-3, T3-4, T4-5 and posterior epidural space at the T8-T11 consistent with inflammatory or infectious process. There is irregular enhancement of the anterior surface of the thoracic spinal cord at the T2-T3 and T4 may represent an infectious process. There is a signal abnormality within the spinal cord at T3 and T4 suggesting edema. Spine - Lumbar L4-5: Bilateral laminectomy. Degenerative changes of the bilateral facet joints. Moderate narrowing of the bilateral intervertebral neural foramina. L5-S1: Bilateral laminectomy. Degenerative changes of the bilateral facet joints. Moderate narrowing of the bilateral intervertebral neural foramina. Normal visualized sacral ala. Fluid collection in the soft tissues posterior to the laminectomy site measures approximately 3.6 x 1.6 x 5.2 cm suggesting seroma. 12/12 admitted to [facility]. PROGRESS Observed: 12/12/2017 Status: COMPLETED Source: [place] 11:[address] [facility] REPOSITORY O ID: [id number] Author: Wade Cevallos Service: Hospital Medicine Author Type: Physician Type: Progress Notes Filed: 12/12/2017 11:41 AM Note Text: HISTORY AND PHYSICAL EXAMINATION (IMPACT) SERVICE DATE: 12/12/2017 SERVICE TIME: 11:30 AM PRIMARY CARE PHYSICIAN: Elkin Wood MD CHIEF COMPLAINT/HISTORY OF PRESENT ILLNESS: Ms. Ugarte is a 72 year old female referred to me for preoperative evaluation. My final recommendations will be communicated back to the requesting physician/surgeon by the way of the shared medical record. Referring Surgeon: Orthopedics Date of Surgery: Planned Surgery/Procedure: Exploration epidural space - possible removal of pus Indication for Planned Surgery / Procedure: Epidural infection Refer to Assessment section for details of any comorbidities. Patient is Able to Perform the Following Physical Activity: Participate in moderate recreational activities, such as golf, bowling, dancing, doubles tennis, or throwing a baseball or football (6.00 METs) Patient's functional class is II based on self-reported physical activity. Significant Anesthesia Considerations: None. PAST MEDICAL/SURGICAL/FAMILY/SOCIAL HISTORY PAST MEDICAL HISTORY Diagnosis Date - ASA CLASS II 09/09/2004 - Bilateral low back pain with left-sided sciatica 04/02/2015 Taken care of by surgery - Bilateral low back pain with sciatica 04/09/2015 Taken care of by surgery - Diverticulitis - Diverticulitis of colon 07/21/2009 - Essential hypertension, benign 12/09/2006 - Mild intermittent asthma without complication 03/27/2016 PAST SURGICAL HISTORY Procedure Laterality Date - APPEN[facility]CT[facility] Diverticulosis - COLONOSCOPY 09/15/03 Scanned documents - KNEE SCOPE,DIAGNOSTIC Arthroscopy, knee, x 2 both knees - LAP, SURG MOBIL SPLENIC FL DUR PTL COLECTOMY 08/16/2009 - LAPAROSCOPIC HEMICOLECTOMY 08/16/2009 - PAST SURGICAL HISTORY OF Anterior cervical fusion - REPAIR INCISIONAL HERNIA,REDUCIBLE 08/16/2009 - REPAIR ROTATOR CUFF,ACUTE Rotator cuff repair, Left - TOTAL ABDOM HYSTERECTOMY Hysterectomy, DEVANTE, right ovary remains - TOTAL HIP REPLACEMENT Left 10/18/15 [facility] - TOTAL HIP REPLACEMENT Right 01/30/2016 Dr. Cardenas - TOTAL KNEE REPLACEMENT 08/11/2011 Knee replacement, total Left - [facility]. 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 Social History Main Topics Smoking status: Never Smoker Smokeless tobacco: Never Used Comment: Mother smoked in childhood home. Spouse smoked a little. 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 [place] MEDICATIONS/ALLERGIES Current Facility-Administered Medications: 0.9% NaCl 3-5 mL 3-5 mL INTRAVENOUS q 12 H Feihong (Res) Ding 5 mL at 12/12/17 0502 heparin 5,000 Units injection 5,000 Units SUBCUTANEOUS q 12 H Feihong (Res) Ding 5,000 Units at 12/12/17 0907 DAPTOmycin 500 mg in NaCl 0.9% 50 mL (CUBICIN) 500 mg INTRAVENOUS q 24 HR Feihong (Res) Ding Last Rate: 100 mL/hr at 12/12/17 0913 500 mg at 12/12/17 0913 oxyCODONE IR 5-10 mg tab(s) (ROXICODONE) 5-10 mg ORAL q 6 H PRN Feihong (Res) Ding 10 mg at 12/12/17 0502 perflutren lipid microspheres 1.1 mg/mL 1.3 mL injection (DEFINITY) 1.3 mL INTRAVENOUS DIRECTED PRN Feihong (Res) Ding lisinopril 10 mg tab(s) (ZESTRIL, PRINIVIL) 10 mg ORAL DAILY Feihong (Res) Ding 10 mg at 12/12/17 0907 ondansetron (PF) 4 mg injection (ZOFRAN) 4 mg INTRAVENOUS q 6 H PRN Wade Peñaloza) Mart ALLERGIES Allergen Reactions - Anesthesia [Other] GI Upset REVIEW OF SYSTEMS General: Fever, chills Neuro: Headaches, no H/O CVA Respiratory: No history of current cough or dyspnea, or pneumonia in the past 6 weeks. No history of respiratory/pulmonary symptoms or problems. Cardiovascular: HTN GI: No history of GI symptoms or problems. No history of esophageal varices, recent ascites, or ETOH greater than 2 drinks per day. 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 Has not taken steroids within the past 30 days. No history of endocrinological symptoms or problems. Hematology: No history of bleeding or clotting disorder. No history of hematological symptoms or problems. Oncology: No history of CA metastasis, chemo within 30 days, or radiotherapy within 90 days. No history of oncological symptoms or problems. Psych: No history of psychiatric symptoms or problems. Skin: Negative for lesions, rash, and itching. PHYSICAL EXAM VITALS: BP 152/59 Pulse 87 Temp (Src) 97.9 (Oral) Resp 20 Wt 186 lb 1.1 oz (84.4kg) SpO2 94% General: Alert and oriented. C/o headache- + Skin: Back- open wounds from recent surgery with packing HEENT: EOM, pupils equal, round and reactive. Cardiovascular: Normal S1 AND S2, no rubs, murmurs or gallops. No JVD. Pulse regular. Lungs: Normal breath sounds, no wheezes or crackles. Abdomen: Soft, non-tender, no rigidity. Extremities: No deformity, no edema or tenderness, no joint swelling or clubbing. Neurological: Normal cognition and motor skills. Pulses: Carotid and radial pulses normal +2. ASSESSMENT Ms. Ugarte is a 72 year old female referred to me for preoperative evaluation. Patient has the following medical comorbidities which might affect the perioperative course: HTN Epidural Infection Patient's RCRI (Revised Cardiac Risk Index: CAD/CHF/Stroke or TIA/SCr>2/DM on Insulin/High Risk Surgery) score is 0 and is at low risk for major adverse cardiac events in the perioperative period. Diagnostic tests reviewed for today's visit: Most recent labs Most recent imaging Most recent EKG: normal sinus rhythm, normal axis, normal intervals, reviewed by myself. PLAN/RECOMMENDATIONS CARDIAC: Patient is at optimal cardiac condition for scheduled surgery / procedure. PULMONARY: Patient is at optimal Pulmonary status for scheduled surgery / procedure. VASCULAR/ANTICOAGULATION: VTE prophylaxis as deemed appropriate by the surgical service. Patient is optimally prepared for surgery. I have discussed the above recommendations with the patient in detail, in ita and lay terms, and provided a written summary of instructions as needed. We have discussed that no surgery is without risk, but that the goal of preoperative assessment is to optimize that risk, and that was clearly understood by the patient. I have given ample opportunity for the patient to ask questions, and answered all questions to their stated satisfaction. SIGNATURE: Wade Cevallos MD PATIENT NAME: Stephie Ugarte DATE: December 12, 2017 TIME: 11:30 AM ECG COMPLETE W Observed: 12/12/2017 Status: F Source: [facility] INTERPRETATION 11:27 AM [facility] REPOSITORY NAME : STEPHIE UGARTE PID : [id number] : 1945 Gender : Female Race : ORD : [id number] Procedure Date : Dec 12 2017 11:27:12 Edit Date : Dec 15 2017 11:05:54 Diagnosis:NORMAL SINUS RHYTHM NORMAL ECG Confirmed by MD SAMANIEGO TAMANNA ([id number]) on 12/15/2017 11:05:46 AM Ventricular Rate : 86 BPM Atrial Rate : 86 BPM P-R Interval : 158 ms QRS Duration : 100 ms Q-T Interval : 366 ms QTC Calculation(Bezet) : 437 ms P [place] : 39 degrees R [place] : 89 degrees T [place] : 29 degrees Test Reason : Location : 84 : [place] [address] Overread By : MD SAMANIEGO TAMANNA Edited By : MD SAMANIEGO TAMANNA Referred By : , Acquired by : KODY COBB CONSULT Observed: 12/12/2017 Status: COMPLETED Source: [facility] 11:01 AM [facility] REPOSITORY HNO ID: [id number] Author: Mirna Vincent Service: Orthopaedic Surgery Author Type: Resident Type: Consults Filed: 12/13/2017 6:48 AM Note Text: ORTHOPAEDIC SPINE INITIAL CONSULT ASSESSMENT/PLAN: 72 yo F w/recent neurostimulator removal on Nov 30 from right gluteal region who presents from OSH with antior and posterior epidural spaces in thoracic spine, currently bacteremic from infection - Keep NPO until MRI of spine uploaded and on system please: patient last oral intake was today on 3:45 AM - Type and screen - continue antibiotics - new MRI of pelvis/buttock area - MRI of c-spine - xray of cervical/thoracic/lumbar spine AP and lateral - plastic surgery consult for flap coverage of spine - Appreciate ID recs and input - Hold heparin today and until definitive surgical plan - Final plan following review of patients imaging studies - will discuss Spine surgery on-call fellow and Staff HISTORY OF PRESENT ILLNESS This is a 72 year old female with PMHx of HTN and chronic back pain, PSHx of bilateral THAs, bilateral TKAs, C3-5 ACDF, and nerve stimulator placed on 11/13 at the OSH who presents today from [facility] ([place], [place]) where she was found to have a neurostimulator site infection (placed Setp 21- removed Nov 30) during which time blood cultures were positive for MRSA and is currently on daptomycin (previously on vancomycin). She's continued to have persistently positive blood cultures, MOSES negative, and an MRI which shows anterior epidural asbcess at T2-3, T3-4, T4-5 and posterior epidural asbcess at T8-T11. Patient presented to OSH reporting right buttock and back pain and inability to walk since she Thursday. She was taken to OR w/gen surg on 12/10 for superficial IandD of lumbar spine and right buttock with copious purulent materal.. She states she is unable to walk now due to weakness. Her pain is located in her right buttock region were she had the stimulator removed and also in her mid and lower back. She denies numbness or tingling in BLE. PAST MEDICAL HISTORY Diagnosis Date - ASA CLASS II 09/09/2004 - Bilateral low back pain with left-sided sciatica 04/02/2015 Taken care of by surgery - Bilateral low back pain with sciatica 04/09/2015 Taken care of by surgery - Diverticulitis - Diverticulitis of colon 07/21/2009 - Essential hypertension, benign 12/09/2006 - Mild intermittent asthma without complication 03/27/2016 PAST SURGICAL HISTORY Procedure Laterality Date - APPENDECTOMY - COLONOSCOP W/ OR W/O [facility] SPEC 08/14/2009 Diverticulosis - COLONOSCOPY 09/15/03 Scanned documents - KNEE SCOPE,DIAGNOSTIC Arthroscopy, knee, x 2 both knees - LAP, SURG MOBIL SPLENIC FL DUR PTL COLECTOMY 08/16/2009 - LAPAROSCOPIC HEMICOLECTOMY 08/16/2009 - PAST SURGICAL HISTORY OF Anterior cervical fusion - REPAIR INCISIONAL HERNIA,REDUCIBLE 08/16/2009 - REPAIR ROTATOR CUFF,ACUTE Rotator cuff repair, Left - TOTAL ABDOM HYSTERECTOMY Hysterectomy, DEVANTE, right ovary remains - TOTAL HIP REPLACEMENT Left 10/18/15 [facility] - TOTAL HIP REPLACEMENT Right 01/30/2016 Dr. Cardenas - TOTAL KNEE REPLACEMENT 08/11/2011 Knee replacement, total Left - Dr. Colorado [facility] - TOTAL KNEE REPLACEMENT 08/17/2013 Knee replacement, total Right [facility] Current hospital medications: 0.9% NaCl 3-5 mL 3-5 mL INTRAVENOUS q 12 H heparin 5,000 Units injection 5,000 Units SUBCUTANEOUS q 12 H DAPTOmycin 500 mg in NaCl 0.9% 50 mL (CUBICIN) 500 mg INTRAVENOUS q 24 HR oxyCODONE IR 5-10 mg tab(s) (ROXICODONE) 5-10 mg ORAL q 6 H PRN perflutren lipid microspheres 1.1 mg/mL 1.3 mL injection (DEFINITY) 1.3 mL INTRAVENOUS DIRECTED PRN lisinopril 10 mg tab(s) (ZESTRIL, PRINIVIL) 10 mg ORAL DAILY ondansetron (PF) 4 mg injection (ZOFRAN) 4 mg INTRAVENOUS q 6 H PRN Allergies: ALLERGIES Allergen Reactions - Anesthesia [Other] GI Upset FAMILY HISTORY Problem Relation Age of Onset - Emphysema Mother - COPD Father - Heart Father CHF - Heart Sister [place] 08/29, age 54 - None Brother - None Brother Social History Substance Use Topics - Smoking status: Never Smoker - Smokeless tobacco: Never Used Comment: Mother smoked in childhood home. Spouse smoked a little. - Alcohol use No REVIEW OF SYSTEMS GENERAL: No weight loss or fevers INFECTIOUS: Negative for recent illness SKIN: Negative for new rashes and/or breaks in skin VISION: Negative for recent changes in vision HEARING: Negative for recent changes in hearing TASTE/SMELL: Negative for recent changes in taste/sense of smell CARDIOVASCULAR: Negative for chest pain, leg swelling or palpitations. RESPIRATORY: Negative for cough, wheezing or shortness of breath. GI: Negative for changes in bowel habits : Negative for changes in urinary habits. ENDOCRINE: Negative for heat/cold intolerance MUSCULOSKELETAL: See HPI PSYCHIATRIC: Negative for recent changes in psychiatric history PHYSICAL EXAM BP 152/59 Pulse 87 Temp (Src) 97.9 (Oral) Resp 20 Wt 186 lb 1.1 oz (84.4kg) SpO2 94% Gen: AOx3, NAD CV: RRR Resp: CTAB, no labored breathing, no wheezing Abd: soft, NT/ND Ext: Gen: AOx3 Spine Exam detailed: Cranial Nerves: CN II-XII examined, no focal deficits noted Strength: RUE: 4+/5 Deltoid/biceps, 5/5 triceps, 5/5 WE/WF, 5/5 FPL, 5/5 OP,5/5 JORGE, EIP, EPL LUE: 4+/5 Deltoid/biceps,5/5 triceps,5/5 WE/WF,5/5 FPL,5/5 OP, 5/5 JORGE, EIP, EPL RLE: 4/5 HF, 4/5 KF/KE, 5/5 Gsc, 5/5 Ta, 5/5 EHL LLE: 4+/5 HF 4/5 KF/KE, 5/5Gsc, 5/5Ta, 5/5 EHL Sensation: RUE: SILT Ax/Median/Radial/Median/LABC/MABC intact LUE: SILT Ax/Median/Radial/Median/LABC/MABC intact RLE: SILT Obturator, Saphenous, Sural, DP, SP, Plantar LLE: SILT Obturator, Saphenous, Sural, DP, SP, Plantar No sensory levels noted on exam Reflexes: +3 in BUEs, +2 BLEs 2 beats of clonus LLE Up-going Toes (+ve Babinski) B/L Sheikh's noted, bilateral Rectal exam --> rectal tone intact LABS Refer to EMR for additional and/or pending admission labs BMP: Sodium 135 12/12/2017 Potassium 4.3 12/12/2017 Chloride 99 12/12/2017 CO2 23 12/12/2017 BUN 19 12/12/2017 Creatinine 0.61 12/12/2017 Glucose 100 12/12/2017 CBC: WBC 9.16 12/12/2017 Hemoglobin 7.4 12/12/2017 Hematocrit 23.0 12/12/2017 Platelet Count 565 12/12/2017 SED RATE/CRP: No results found for this basename: wsr:*,crp:* COAGS: APTT 23.5 12/12/2017 PT INR 0.9 12/12/2017 IMAGING/RADIOGRAPHS 12/11/2017 MRI from OSH: Thoracic Spine: Radiology read from OSH: Abnormal enhancement of the anterior epidural space at T2- 5 and posterior epidural space T8-11 consistent with inflammatory or infectious process. Irregular enhancement of the anterior surface of the thoracic spinal cord at T2-4 may represent infectious process. Signal abnormality within spinal cord at T3-4 suggesting edema Lumbar Spine: Radiology read from OSH: Multilevel degenerative changes with severe spinal canal stenosis at L2-3 OTHER STUDIES Mirna Vincent MD Orthopaedic Surgery, PGY2 Patient Name: Stephie Ugarte Account #: Data Unavailable Admission Date: 12/12/2017 Date of Evaluation: 12/12/2017 Time of Evaluation: 11:01 AM CONSULT Observed: 12/12/2017 Status: COMPLETED Source: [facility] 8:20 AM [facility] REPOSITORY HNO ID: [id number] Author: Nadya Peñaloza) Jose Service: Infectious Disease Author Type: Physician Type: Consults Filed: 12/12/2017 6:36 PM Note Text: INITIAL CONSULT INFECTIOUS DISEASE SERVICE DATE: 12/12/2017 SERVICE TIME: 10:00 AM We were asked to evaluate Ms. Stephie Ugarte, a 72 year old yo female by Dr. Nava for Spine Stimulator Infection. Our findings and recommendations will be communicated through the shared medical record. Subjective HPI: Ms. Ugarte is a 72yo female with a past medical hx of diverticulitis, HTN, Asthma, COPD BL total hip and total knee replacements and chronic lower back pain who presented as an OSH transfer for management of presumed infected spinal cord stimulator and evaluation from neurosurgery. Pt has a long hx of chronic back pain, for which a nerve stimulator was placed at an OSH on 11/13. Post op course was complicated with lethargy, decrease appetite for which she was seen in the ED, treated for dehydration and sent home. Symptoms persisted and subsequently worsened and thus she was admitted to [facility] with AMS and MRSA bacteremia. Initially she was started on Vancomycin. Underwent nerve stimulator removal on 11/30. ID was consulted who recommended starting on daptomycin - due to better bactericidal effect. MOSES showed no vegetations. MRI showed abnormal enhancement in the anterior epidural space at T2-3, T3-4, T4-5 and posterior epidural space at T8-11 consistent with inflammatory or infectious process. Irregular enhancement of anterior surface of thoracic spinal cord at T2-3 and T4 may represent an infectious process, with signal abnormality at T3 and T4 suggesting edema. ? I/D was done of right hip wound and spine 12/10 - noted to have copious purulent material in both sites. She was sent to [facility] for further evaluation and management by neurosurgery. On arrival - Afebrile, 134/56 HR 81 RR 20 95% on RA CBC - WBC 9.16 Hbg 7.4 Hct 23.0 CMP - in process Infectious work up: Blood cultures x2 12/12 - in process Prior admissions or healthcare visits: - 11/09/17 - seen for her yearly visit - noted to have [place] backwards [place] camp[place], had pain across lower back and down the right lateral thigh. Had been treated with prednisone before. Ibuprofen 600 mg RX more effective. In physician visit note, Wound on right leg taken 8 weeks--tripped and stick poked her. 11/05/17 - PCP visit - noted to have healing spider bite right index finger palmar side. CURRENT ANTIBIOTICS: Daptomycin 500mg Current other medications reviewed. Current Facility-Administered Medications: 0.9% NaCl 3-5 mL 3-5 mL INTRAVENOUS q 12 H heparin 5,000 Units injection 5,000 Units SUBCUTANEOUS q 12 H DAPTOmycin 500 mg in NaCl 0.9% 50 mL (CUBICIN) 500 mg INTRAVENOUS q 24 HR oxyCODONE IR 5-10 mg tab(s) (ROXICODONE) 5-10 mg ORAL q 6 H PRN perflutren lipid microspheres 1.1 mg/mL 1.3 mL injection (DEFINITY) 1.3 mL INTRAVENOUS DIRECTED PRN lisinopril 10 mg tab(s) (ZESTRIL, PRINIVIL) 10 mg ORAL DAILY PAST MEDICAL HISTORY Diagnosis Date - ASA CLASS II 09/09/2004 - Bilateral low back pain with left-sided sciatica 04/02/2015 Taken care of by surgery - Bilateral low back pain with sciatica 04/09/2015 Taken care of by surgery - Diverticulitis - Diverticulitis of colon 07/21/2009 - Essential hypertension, benign 12/09/2006 - Mild intermittent asthma without complication 03/27/2016 PAST SURGICAL HISTORY Procedure Laterality Date - APPENDECTOMY - COLONOSCOP W/ OR W/O [facility] SPEC 08/14/2009 Diverticulosis - COLONOSCOPY 09/15/03 Scanned documents - KNEE SCOPE,DIAGNOSTIC Arthroscopy, knee, x 2 both knees - LAP, SURG MOBIL SPLENIC [place] DUR PTL COLECTOMY 08/16/2009 - LAPAROSCOPIC HEMICOLECTOMY 08/16/2009 - PAST SURGICAL HISTORY OF Anterior cervical fusion - REPAIR INCISIONAL HERNIA,REDUCIBLE 08/16/2009 - REPAIR ROTATOR CUFF,ACUTE Rotator cuff repair, Left - TOTAL ABDOM HYSTERECTOMY Hysterectomy, DEVANTE, right ovary remains - TOTAL HIP REPLACEMENT Left 10/18/15 [facility] - TOTAL HIP REPLACEMENT Right 01/30/2016 Dr. Cardenas - TOTAL KNEE REPLACEMENT 08/11/2011 Knee replacement, total Left - Dr. 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 Social History Main Topics Smoking status: Never Smoker Smokeless tobacco: Never Used Comment: Mother smoked in childhood home. Spouse smoked a little. 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 Denies fever night sweats, or changes in weight. HEENT: Negative for frequent or significant headaches. No changes in hearing or vision, no nose bleeds or other nasal problems RESPIRATORY: Denies any cough, dyspnea, or wheezing. CARDIOVASCULAR: Denies any chest pain with exertion or at rest, palpitations, syncope, or edema. GASTROINTESTINAL: nausea, vomiting Denies abdominal pain, heartburn, diarrhea or other changes in bowel habit. Denies melena. MUSCULOSKELETAL:Lower back pain NEURO: Denies any headaches, tremors, dizziness, vertigo, memory loss, or confusion. No weakness, numbness or tingling. HEMATOLOGY/LYMPHATIC/IMMUNOLOGIC: Denies anemia, bruising, bleeding abnormalities, HIV risk factors ENDOCRINE: Denies any heat or cold intolerance, polyuria or polydipsia. PHYSICAL EXAM:Temp (24hrs), Av.4 ?C (97.6 ?F), Min:36.3 ?C (97.4 ?F), Max:36.6 ?C (97.8 ?F) Temp (120hrs), Av.4 ?C (97.6 ?F), Min:36.3 ?C (97.4 ?F), Max:36.6 ?C (97.8 ?F) GENERAL: Patient in no acute distress. Laying in bed SKIN: Spinal wound around t3-t5 packed, nonbleeding, no induration, erythema. Rght buttock wound. No erythema, warmth of the area, some tracking, non draining, HEENT: PERRLA, EOMI, conjunctivae clear. Neck Supple, no lymphadenopathy BACK: tenderness to palpation over site of I/D LUNGS: Normal breath sounds, clear to auscultation, percussion normal, no wheezes, or crackles. HEART: Regular rate/rhythm, normal heart sounds, and no murmurs. ABDOMEN: Soft, non tender, no palpable masses, normal bowel sounds, no abdominal bruits, No hepatosplenomegaly. EXTREMITIES: No edema NEURO: Awake, alert and oriented x3, no involuntary motions. Able to raise L leg easily off bed, R slightly weaker but has movement. Reflexes 1+ in BLE. Arms 5/5, 2+ biceps reflexes LABS: WBC (k/uL) Date Value 12/12/2017 9.16 09/16/2004 10.50 09/09/2004 7.16 Creatinine (mg/dL) Date Value 07/20/2012 0.83 09/16/2004 0.6 09/09/2004 0.7 Lab Results Component Value Date NEUTP 73.5 12/12/2017 ABSNEUT 6.73 12/12/2017 LYMPHP 15.2 12/12/2017 ABSLYMPH 1.39 12/12/2017 ABSMONO 0.83 12/12/2017 EODINP 1.7 12/12/2017 ABSEOSIN 0.16 12/12/2017 BASOP 0.5 12/12/2017 ABSBASO 0.05 12/12/2017 Lab Results Component Value Date PLT 565 12/12/2017 HB 7.4 12/12/2017 HCT 23.0 12/12/2017 ALB 4.4 09/16/2004 CA 10.2 07/20/2012 TBILI 0.4 09/16/2004 ALKPHOS 79 09/16/2004 AST 22 09/16/2004 GLUC 83 07/20/2012 BUN 34 07/20/2012 NA 141 07/20/2012 K 3.8 07/20/2012 CHLOR 103 07/20/2012 CO2 24 07/20/2012 ANION 14 07/20/2012 ALT 19 09/16/2004 No results found for: WSR, CRP, IGG No results found for: VANCOPRE, VANCORA MICROBIOLOGY: Blood culture 12/12 - in process Impression/Recommendations Ms. Ugarte is a 72yo female with a past medical hx of BL total hip and knee placements, HTN, COPD, Asthma, and chronic back pain for which she had nerve stimulator place in 10/2017, now s/p removal for presumed infection, treated at outside hospital with vancomycin and then daptomycin. Pt underwent ID of leg wound and spinal wound with general surgery prior to transfer to [facility] Since arrival has been afebrile, no leukocytosis. Currently on Daptomycin 500mg q24hrs. Uncertainty around operative findings and procedure, will need to obtain operative reports from OSH. Many potential areas of infection, including sites of prior laminectomies, prosthetic joints (hips, knees), hardware from prior cervical spine surgery. Plan: - Obtain operative reports and wound culture results from OSH - Obtain echocardiogram report from OSH, may need to repeat - Obtain sensitives from OSH Discontinue daptomycin, restart Vancomycin - Agree with spine surgery evaluation - repeat blood cultures - Order CRP - Recommend X ray of the R hip Thank you very much for inviting us to participate in the care of this patient. Case to be discussed with staff, recommendations not finalized until note signed by staff. SIGNATURE: Jose Elias Restrepo MD PATIENT NAME: Stephie Ugarte DATE: December 12, 2017 TIME: 8:21 AM PAGER/CONTACT #: [id number] ID STAFF Attending Note I evaluated the patient and personally participated in the hall components. I agree with the resident's findings and plan as documented and have discussed the case and management of the patient's care with the resident. Reviewed available outside records, discussed with patient and her daughter Has hx of ?c spine hardware, lumbar laminectomy, b/l TKA, b/l RODGER. Underwent spinal cord stimulator placement 11/13, per her daughter was healing ok, but at f/u appt wound was draining copious bloody fluid. Began feeling unwell, then become moribund. Went to OSH--found to be MRSA bacteremia.. Underwent stimulator removal 11/30, per pt's daughter wounds were sewn shut Initially cleared MRSA , then relapsed ?per records Was changed to daptomycin (NOT due to any intolerance of vancomycin) ultimely wounds becam more swollen--opened 12/11, with gross purulence per daughter, now packed. Wounds--lumbar--clean, minimal erythema, no purulance, visible ligament at base of deep wound. R buttock wound--clean, tissue pink, no purulence, tracks 1 inch in all directions Pt states she overall feels better. Denies pain but open surgical sites. Does have some pain over R upper arm. ?was having shoulder pain but this resolved Suspect persistent MRSA bacteremia due to ?reaccumulation of abscess at surgical sites now drained. Vs ?epidural abscesses/facet joint septic arthritis Lower suspicion for involvement of prosthetic joints Agree with plan as above Discussed with primary team and spine surgery team Discussed with patient and her daughter at bedside Thank you very much for inviting us to participate in the care of this patient. Will continue to follow with you. Signature: Nadya Garcia MD Pager: [phone] Date: 12/12/2017 Time: 6:30 PM Observed: 12/12/2017 Status: F Source: [facility] BLOOD CULTURE 6:32 AM [facility] REPOSITORY Additional Testing - Methicillin resistant Staphylococcus aureus (MRSA) detected by microarray. Negative for Streptococcus spp. and Enterococcus spp. by micorarray. Culture Result - Methicillin resistant Staphylococcus aureus (NOTE) --> ABNORMAL ALERT Positive result called to and read back by:Yesica Au H81 12/13/17 --> ABNORMAL ALERT 1325 A.Bias --> ABNO RMAL ALERT Methicillin resistant Staphylococcus aureus (MRSA) detected by --> ABNORMAL ALERT microarray. Negative for Streptococcus spp. and Enterococcus spp. by --> ABNORMAL ALERT micorarray.(*). Called to and read back by: Yesica Au at H81, on --> ABNORMAL ALERT 12/13/17 at 1600, by Melissa Walter. --> ABNORMAL ALERT --> ABNORMAL ALERT --> ABNORMAL ALERT ORGANISM: Methicillin resistant Staphylococcus aureus METHOD: Minimum inhibitory concentration (VIZION) Antibiotic Interp VENITA Status Erythromycin SUSCEPTIBLE <=0.5 F Clindamycin SUSCEPTIBLE <=0.5 F Tetracycline SUSCEPTIBLE <=2 F Vancomycin SUSCEPTIBLE 2 F Oxacillin RESISTANT >2 F Oxacillin resistant staphylococci are resistant to all beta lactam antibiotics (except new cephalosporins with anti MRSA activity). Trimeth sulfameth SUSCEPTIBLE <=2 F Gentamicin SUSCEPTIBLE <=4 F Rifampin SUSCEPTIBLE <=1 F Rifampin should not be used alone for antimicrobial therapy. Daptomycin NS 2 F Interpretations for an VENITA of >1 have not been defined for this organism. Linezolid SUSCEPTIBLE 2 F Performed By: #### BLCUL #### [facility] [address], [place] [address] PROTIME Collected: 12/12/2017 Status: F Source: [facility] 6:16 AM [facility] REPOSITORY TYPE CODE TESTS RESULT OUT OF RANGE REFERENCE UNITS LAB PSEC 9.7-13.0 sec PT Sec 10.0 LAB INR 0.9-1.3 PT INR 0.9 Result Comment: Vitamin K Antagonist (VKA) Therapeutic Range: INR 2 to 3 (Target INR of 2.5) Note: For patients treated with VKA drugs, such as warfarin, the [place] [employer] 2012 Guideline recommends a therapeutic INR range of 2 to 3 (target INR of 2.5). This recommendation includes high-risk patients with antiphospholipid syndrome with previous arterial or venous thromboembolism, current-generation mechanical or bioprosthetic aortic heart valve replacement. Note: Patients with mechanical aortic valve replacement and additional risk factors for thromboembolic events (atrial fibrillation, previous thromboembolism, LV dysfunction, hypercoagulable conditions) or an older generation mechanical AVR (i.e., ball in-Cage) or any mechanical MVR should have a INR therapeutic range of 2.5 to 3.5 (target INR of 3). Tiffanie GH, et al. Chest 2012, 141:7S-47S Ramesh RA, et al. [facility] 2017, 70: 252-289 Performed By: #### PT, PTT, CBCDIF, HAPTO, CKCKMB, CMP, IRON, MG1, PHOS, FERR #### [facility] [address], [place] [address] APTT Collected: 12/12/2017 Status: F Source: [facility] 6:16 AM [facility] REPOSITORY TYPE CODE TESTS RESULT OUT OF RANGE REFERENCE UNITS LAB APTT 23.0-32.4 sec APTT 23.5 Result Comment: Unfractionated Heparin Therapeutic Ranges: Standard Heparin Nomogram: 53 to 78 seconds (anti-Xa level of 0.3 to 0.7 U/ml) Low Dose/ACS Nomogram: 49 to 67 seconds (anti-Xa level of 0.2 to 0.5 U/ml) Stroke Treatment Nomogram: 49 to 67 seconds (anti-Xa level of 0.2 to 0.5 U/ml) Note: The APTT therapeutic range has been determined for the current lot of laboratory APTT reagent in use throughout the [facility]. Performed By: #### PT, PTT, CBCDIF, HAPTO, CKCKMB, CMP, IRON, MG1, PHOS, FERR #### [facility] [address] [place], [place] [address] CBC AND DIFFERENTIAL Collected: 12/12/2017 Status: F Source: [facility] 6:16 AM [facility] REPOSITORY TYPE CODE TESTS RESULT OUT OF REFERENCE UNITS RANGE LAB WBC 3.70-11.00 k/uL WBC 9.16 LAB RBC 3.90-5.20 m/uL Low RBC 2.69 LAB HGB 11.5-15.5 g/dL Low Hemoglobin 7.4 LAB HCT 36.0-46.0 % Low Hematocrit 23.0 LAB MCV 80.0-100.0 fL MCV 85.5 LAB MCH 26.0-34.0 pG MCH 27.5 LAB MCHC 30.5-36.0 g/dL MCHC 32.2 LAB RDWCV 11.5-15.0 % RDW-CV 14.6 LAB PLTCT 150-400 k/uL Platelet High Count 565 LAB MPV 9.0-12.7 fL MPV 9.1 LAB ANEUT % Neut% 73.5 LAB AANEUT 1.45-7.50 k/uL Abs Neut 6.73 LAB ALYMP % Lymph% 15.2 LAB AALYMP 1.00-4.00 k/uL Abs Lymph 1.39 LAB AMONO % Mchenry% 9.1 LAB AAMONO <0.87 k/uL Abs Mchenry 0.83 LAB AEOS % Eosin% 1.7 LAB AAEOS <0.46 k/uL Abs Eosin 0.16 LAB ABASO % Baso% 0.5 LAB AABASO <0.11 k/uL Abs Baso 0.05 LAB AUNRBC 0 /100 WBC NRBCs 0.0 LAB ABNRBC <0.01 k/uL Absolute nRBC <0.01 LAB DTYP DTYPE Auto Diff Performed By: #### PT, PTT, CBCDIF, HAPTO, CKCKMB, CMP, IRON, MG1, PHOS, FERR #### [facility] [address] [place] [id number] HAPTOGLOBIN Collected: 12/12/2017 Status: F Source: [facility] 6:16 AM [facility] REPOSITORY TYPE CODE TESTS RESULT OUT OF REFERENCE UNITS RANGE LAB HAPTO 31-238 mg/dL Haptoglobin High 444 Performed By: #### PT, PTT, CBCDIF, HAPTO, CKCKMB, CMP, IRON, MG1, PHOS, FERR #### [place] [address] CK, TOTAL AND CKMB Collected: 12/12/2017 Status: F Source: [facility] 6:16 AM [facility] REPOSITORY TYPE CODE TESTS RESULT OUT OF REFERENCE UNITS RANGE LAB CK 42-196 U/L Low 28 CK LAB MB <4.3 ng/mL MB 1.8 LAB CKMBRI 0.0-4.0 % CK CK MB MB % not % reported with CK <100 U/L. Performed By: #### PT, PTT, CBCDIF, HAPTO, CKCKMB, CMP, IRON, MG1, PHOS, FERR #### [place] [id number] COMP METABOLIC PANEL Collected: 12/12/2017 Status: F Source: [facility] 6:16 AM [facility] REPOSITORY TYPE CODE TESTS RESULT OUT OF REFERENCE UNITS RANGE LAB TP 6.3-8.0 g/dL Low Protein, Total 6.1 LAB ALB 3.9-4.9 g/dL Low Albumin 2.6 LAB CA 8.5-10.2 mg/dL Calcium, Total 8.6 LAB TBIL 0.2-1.3 mg/dL Bilirubin, Total 0.2 LAB ALKP 34-123 U/L Alkaline Phosphatase 73 LAB AST 13-35 U/L AST 19 LAB GLU 74-99 mg/dL Glucose High 100 Result Comment: The [place] [employer] (ADA) provides guidance for cutoff values for fasting glucose and random glucose. The ADA defines fasting as no caloric intake for at least 8 hours. Fas ting plasma glucose results between 100 to 125 mg/dL indicate increased risk for diabetes (prediabetes). Fasting plasma glucose results greater than or equal to 126 mg/dL meet the criteria for diagnosis of diabetes. In the absence of unequivocal hyperglycemia, results should be confirmed by repeat testing. In a patient with classic symptoms of hyperglycemia or hyperglycemic crisis, random plasma glucose results greater than or equal to 200 mg/dL meet the criteria for diagnosis of diabetes. Reference: Standards of Medical Care in Diabetes 2016, [place] [employer]. Diabetes Care. 2016.39(Suppl 1). LAB BUN 7-21 mg/dL BUN 19 LAB CRET 0.58-0.96 mg/dL Creatinine 0.61 LAB NA 136-144 mmol/L Sodium Low 135 LAB K 3.7-5.1 mmol/L Potassium 4.3 LAB CL 97-105 mmol/L Chloride 99 LAB CO2 22-30 mmol/L CO2 23 LAB AGAP 9-18 mmol/L Anion Gap 13 LAB ALT 7-38 U/L ALT 32 LAB GFRAA eGFR- Amer. >60 LAB GFRNAA . eGFR-All Other Races >60 Result Comment: eGFR (Estimated GFR) Units of measure: mL/min/1.73 meters squared eGFR is derived from the reexpressed MDRD Study equation using the following parameters: serum creatinine, age, gender and race. The creatinine assay has been calibrated to be traceable to IDMS. An eGFR <60 mL/min/1.73m2 for >3 months is consistent with chronic kidney disease. Refer to KDOQI guidelines for clinical interpretation. In patients with unstable renal function, e.g. those with acute kidney injury, the eGFR may not accurately reflect actual GFR. Performed By: #### PT, PTT, CBCDIF, HAPTO, CKCKMB, CMP, IRON, MG1, PHOS, FERR #### [facility] [address] [place], [place] [address] IRON AND TIBC Collected: 12/12/2017 Status: F Source: [facility] 6:[address] [facility] REPOSITORY TYPE CODE TESTS RESULT OUT OF REFERENCE UNITS RANGE LAB IRN 41-186 ug/dL Low Iron 23 LAB TIBC 232-386 ug/dL Low TIBC 220 LAB SAT 15-57 % Low Transferrin Saturatn 10 Performed By: #### PT, PTT, CBCDIF, HAPTO, CKCKMB, CMP, IRON, MG1, PHOS, FERR #### [place] [address] MAGNESIUM Collected: 12/12/2017 Status: F Source: [facility] 6:16 AM [facility] REPOSITORY TYPE CODE TESTS RESULT OUT OF REFERENCE UNITS RANGE LAB MG 1.7-2.3 mg/dL Magnesium 2.1 Performed By: #### PT, PTT, CBCDIF, HAPTO, CKCKMB, CMP, IRON, MG1, PHOS, FERR #### [place] [address] PHOSPHORUS Collected: 12/12/2017 Status: F Source: [facility] 6:16 AM [facility] REPOSITORY TYPE CODE TESTS RESULT OUT OF REFERENCE UNITS RANGE LAB PHOS 2.7-4.8 mg/dL Phosphorus 3.8 Performed By: #### PT, PTT, CBCDIF, HAPTO, CKCKMB, CMP, IRON, MG1, PHOS, FERR #### [place] [address] FERRITIN Collected: 12/12/2017 Status: F Source: [facility] 6:16 AM [facility] REPOSITORY TYPE CODE TESTS RESULT OUT OF REFERENCE UNITS RANGE LAB FERR 14.7-205.1 ng/mL High Ferritin 411.6 Performed By: #### PT, PTT, CBCDIF, HAPTO, CKCKMB, CMP, IRON, MG1, PHOS, FERR #### [facility] [employer] [address] [place] [address] LD Collected: 12/12/2017 Status: F Source: [facility] 6:16 AM [facility] REPOSITORY TYPE CODE TESTS RESULT OUT OF RANGE REFERENCE UNITS LAB LD 135-214 U/L LD 183 Performed By: #### LD6 #### [place] [address] TYPE AND SCREEN Collected: 12/12/2017 Status: F Source: [facility] 6:16 AM [facility] REPOSITORY TYPE CODE TESTS RESULT OUT OF REFERENCE UNITS RANGE LAB %ABR A ABO/RH(D) POSITIVE LAB % Antibody NEG Screen Performed By: #### TSCR #### [facility] [address] [place] [address] SED RATE WESTERGREN Collected: 12/12/2017 Status: F Source: [facility] 6:16 AM [facility] REPOSITORY TYPE CODE TESTS RESULT OUT OF REFERENCE UNITS RANGE LAB WSR 0-20 mm/hr Sed Rate High Westergren 34 Performed By: #### WSR, CRP #### [address] [address] C-REACTIVE PROTEIN Collected: 12/12/2017 Status: F Source: [facility] 6:16 AM [facility] REPOSITORY TYPE CODE TESTS RESULT OUT OF REFERENCE UNITS RANGE LAB CRP <0.9 mg/dL High C-Reactive 5.9 Protein Performed By: #### WSR, CRP #### [place] [address] Observed: 12/12/2017 Status: F Source: [facility] BLOOD [facility]ULTURE 6:16 AM [facility] REPOSITORY Culture Result - Staphylococcus aureus Refer to specimen collected on 12/12/17 AT 0632 ([id number]) (NOTE) Positive result called to and read back by:Jayjay Srinivasan 12/13/17 [address] Performed By: #### BLCUL #### [place] [address] HISTORY PHYSICAL Observed: 12/12/2017 Status: COMPLETED Source: [facility] 5:48 AM [facility] REPOSITORY HNO ID: [id number] Author: Wade Cevallos Service: General Internal Medicine Author Type: Physician Type: HANDP Filed: 12/12/2017 6:02 PM Note Text: HISTORY AND PHYSICAL [facility] SERVICE PATIENT NAME: Stephie Ugarte SERVICE DATE: December 12, 2017 SERVICE TIME: 5:49 AM PRIMARY CARE PHYSICIAN: Elkin Wood MD ADMITTING PHYSICIAN: Dr. Wade Cevallos ASSESSMENT AND PLAN 72 year old female with MRSA bacteremia source - infected nerves stimulator and battery. MRI showing concerns of edema around spinal cord. Continue Daptomycin Neurosurgery consult Active Hospital Problems Diagnosis - MRSA bacteremia Recent spine stimulator source. Removal done 11/30 in OSH with heavy purulence at both surgical sites. CT showed no clear abscess but sizeable areas of induration. 12/03 MOSES negative for vegetation. Patient initially was on vancomycin but was changed to Daptomycin due to positive blood cultures. MRI spine - abnormal enhancement in the anterior epidural space at T2-3, T3-4, T4-5 and posterior epidural space at T8-11 consistent with inflammatory or infectious process. Irregular enhancement of anterior surface of thoracic spinal cord at T2-3 and T4 may represent an infectious process, with signal abnormality at T3 and T4 suggesting edema. Plan Continue Daptomycin. ID consult. BCx draw Neurosurgery consult. - Soft tissue abscess Recent spine stimulator source. Removal done 11/30 in OSH with heavy purulence at both surgical sites. CT showed no clear abscess but sizeable areas of induration. . MRI spine - abnormal enhancement in the anterior epidural space at T2-3, T3-4, T4-5 and posterior epidural space at T8-11 consistent with inflammatory or infectious process. Irregular enhancement of anterior surface of thoracic spinal cord at T2-3 and T4 may represent an infectious process, with signal abnormality at T3 and T4 suggesting edema. S/P I and D yesterday by general surgery. Plan Continue Daptomycin Obtain sensitivity results from [facility] Neurosurgery consult ID consult. BCx drawn. - Essential hypertension, benign Home meds - lisinopril and HCTZ Plan Continue lisinopril 10mg Hold HCTZ CHIEF COMPLAINT: MRSA bacteremia HISTORY OF PRESENT ILLNESS: 72 year old female transferred from OSH due to MRSA bacteremia and infected nerve stimulator site near the thoracic spine. She has a PMH of hypertension lisinopril and HCTZ Past history of disc herniation and B/L total hip replacement and B/L total knee replacement. Patient has chronic back pain and had a nerve stimulator placed on 11/13 at the OSH. Her post op course was complicated by lethargy, decreased appetite. She went to the ER on 11/21, it was thought that she was dehydrated and was sent home after symptomatic management. She continued to deteriorate and was admitted to [facility] due to AMS and sepsis. BC grew MRSA. She was started on Vancomycin She had her nerve stimulator removed on 11/30. BCx continued to grow MRSA despite appropriate antibiotics and ID recommended transitioning to Daptomycin on 12/02 due to better bactericidal effect. She had her nerve stimulator removed on 11/30. She continued to have persistent positive Blood Culture. She also had a MOSES done which did not show any vegetations. 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 MRI result read - abnormal enhancement in the anterior epidural space at T2-3, T3-4, T4-5 and posterior epidural space at T8-11 consistent with inflammatory or infectious process. Irregular enhancement of anterior surface of thoracic spinal cord at T2-3 and T4 may represent an infectious process, with signal abnormality at T3 and T4 suggesting edema. General surgery was consulted and she underwent I and D of the right hip wound and the spine wound yesterday. Copious purulent material was drained from both wounds about 150-200s. Patient was told that the infection was deeper that they initially thought. She was sent to [facility] for further evaluation and management by neurosurgery. On arrival to floor VSS and she says she feels better after the procedure. She does not complain of any acute pain. PAST MEDICAL HISTORY: PAST MEDICAL HISTORY Diagnosis Date - ASA CLASS II 09/09/2004 - Bilateral low back pain with left-sided sciatica 04/02/2015 Taken care of by surgery - Bilateral low back pain with sciatica 04/09/2015 Taken care of by surgery - Diverticulitis - Diverticulitis of colon 07/21/2009 - Essential hypertension, benign 12/09/2006 - Mild intermittent asthma without complication 03/27/2016 PAST SURGICAL HISTORY: PAST SURGICAL HISTORY Procedure Laterality Date - APPENDECTOMY - COLONOSCOP W/ OR W/O [facility] SPEC 08/14/2009 Diverticulosis - COLONOSCOPY 09/15/03 Scanned documents - KNEE SCOPE,DIAGNOSTIC Arthroscopy, knee, x 2 both knees - LAP, SURG MOBIL SPLENIC FL DUR PTL COLECTOMY 08/16/2009 - LAPAROSCOPIC HEMICOLECTOMY 08/16/2009 - PAST SURGICAL HISTORY OF Anterior cervical fusion - REPAIR INCISIONAL HERNIA,REDUCIBLE 08/16/2009 - REPAIR ROTATOR CUFF,ACUTE Rotator cuff repair, Left - TOTAL ABDOM HYSTERECTOMY Hysterectomy, DEVANTE, right ovary remains - TOTAL HIP REPLACEMENT Left 10/18/15 [facility] - TOTAL HIP REPLACEMENT Right 01/30/2016 Dr. Cardenas - TOTAL KNEE REPLACEMENT 08/11/2011 Knee replacement, total Left - Dr. [place] [facility] - TOTAL KNEE REPLACEMENT 08/17/2013 Knee replacement, total Right [facility] MEDICATIONS: Reviewed Prescriptions Prior to Admission: lisinopril-hydrochlorothiazide (PRINZIDE,ZESTORETIC) 10-12.5 mg per tablet Take 1 tablet by mouth once daily. Disp: 90 tablet Rfl: 3 Unknown at Unknown time Current hospital medications: 0.9% NaCl 3-5 mL 3-5 mL INTRAVENOUS q 12 H heparin 5,000 Units injection 5,000 Units SUBCUTANEOUS q 12 H DAPTOmycin 500 mg in NaCl 0.9% 50 mL (CUBICIN) 500 mg INTRAVENOUS q 24 HR oxyCODONE IR 5-10 mg tab(s) (ROXICODONE) 5-10 mg ORAL q 6 H PRN perflutren lipid microspheres 1.1 mg/mL 1.3 mL injection (DEFINITY) 1.3 mL INTRAVENOUS DIRECTED PRN lisinopril 10 mg tab(s) (ZESTRIL, PRINIVIL) 10 mg ORAL DAILY ALLERGIES: ALLERGIES Allergen Reactions - Anesthesia [Other] GI Upset FAMILY HISTORY: FAMILY HISTORY Problem Relation Age of Onset - Emphysema Mother - COPD Father - Heart Father CHF - Heart Sister [place] 08/29, age 54 - None Brother - None Brother SOCIAL HISTORY: Social History Substance Use Topics - Smoking status: Never Smoker - Smokeless tobacco: Never Used Comment: Mother smoked in childhood home. Spouse smoked a little. - Alcohol use No COMPLETE REVIEW OF SYSTEMS: PAIN ASSESSMENT: CURRENTLY HAVING PAIN; GENERAL: Fatigue RESPIRATORY: Negative for cough, hemoptysis, wheezing, COPD, dyspnea or shortness of breath CARDIOVASCULAR: Negative for chest pain, leg swelling, hypertension, CHF or palpitations GI: Constipation : No history of dysuria, frequency or incontinence SKIN: Positive for See HPI NEURO: No history of headaches, syncope, paralysis, seizures or tremors OBJECTIVE PHYSICAL EXAM: BP 136/60 Pulse 76 Temp 36.3 ?C (97.4 ?F) (Oral) Resp 18 Wt 84.4 kg (186 lb 1.1 oz) SpO2 96% BMI 32.44 kg/m? GENERAL: Moderate Distress SKIN: 2 large wounds. One on the spine T3-T5 level, currently draining fluid. Right buttock 1x4 cm horizontal wound. OROPHARYNX: negative NECK: No jugulovenous distention LUNGS: Lungs clear to auscultation. Good diaphragmatic excursion. CARDIAC: Normal S1 and S2; no rubs, murmurs, or gallops ABDOMEN: Normal abdominal exam EXTREMETIES: Normal exam of the extremities NEURO: Alert, oriented X 3 PULSES: 2+ radial, 2+ carotid DATA: Diagnostic tests reviewed for today's visit: Most recent labs and imaging results. VTE prophylaxis: Sub Q heparin Lines: Peripheral IV Disposition: to be assessed, SIGNATURE: Vonnie Lobato MD PAGER: [phone] DATE: December 12, 2017 TIME: 5:49 AM ATTENDING PHYSICIAN: Patient seen and evaluated today Hall elements of history and physical examination of the patient were confirmed. The assessment and plan were formulated and discussed with the team on Rounds. I reviewed the resident's note, examined the patient and agree with the documented findings and plan of care. MRSA bacteremia and Soft tissue abscess back - recent Neuro- stimulator site infection Epidural space infection - Orthopedics considering surgery- pre-op eval done ID service saw pt - changed from Dapto to Vancomycin Wade Cevallos MD Leslie- [phone] ?? NURSING PROG Observed: 12/12/2017 Status: COMPLETED Source: [facility] 2:01 AM [facility] REPOSITORY O ID: [id number] Author: Tere (Rn) JINNY Blake Service: (none) Author Type: Registered Nurse Type: Nursing Progress Note Filed: 12/12/2017 2:02 AM Note Text: Nursing Progress Note Patient Name: Stephie Ugarte Patient Location: [place] [address] Transfer Note: Patient transferred into room/unit H81 bed 8 in stable condition. Actions taken: No futher actions taken at this time. Will continue to monitor and check with patient. This note was completed by: Tere Blake RN CONSULTATION Observed: 12/11/2017 Status: F Source: [place] 9:38 AM [facility] REPOSITORY [facility] Medical Records Department [address] [place] [id number] Consultation 12/11/17716 MR#: [id number] Acct: [id number] Name: STEPHIE UGARTE Rep #: [id number] : 1945 72 From: [place] MD PCP: Elkin Wood MD Status: ADM IN Y Location: [place] [address] Reason for Consult Date of Consultation: 12/11/17 History of Present Illness: The patient is a 72 year old F admitted due to MRSA bacteremia/infected nerve stimulator sites. Patient did have a nerve stimulator removed 11/30/17. Patient has been followed by ID throughout hospitalization her blood cultures were initially negative on 12/07 and however 12/09 were positive again. Patient did have a midline removed on 12/07 which was not sent for cultures. Patient's white blood cell count has ranged between 12 and 14 for the last few days on abx per ID. ID change her antibiotics to daptomycin and her white blood cell count is down to 9.2 today. I was asked by Dr. Brown see the patient for possible washout of the incision sites. Patient has not been having fevers. Past Medical History Past Medical History (Chronic Problems): Chronic Problems Chronic back pain (Chronic) Asthma (Chronic) HTN (hypertension) (Chronic) COPD (chronic obstructive pulmonary disease) (Chronic) Allergies No Known Allergies Allergy (Verified 11/29/17 18:30) Home Medications: Ambulatory Orders Medication Instructions Recorded Fluticasone/Salmeterol [Advair 1 puff INHALATION DAILY PRN 09/28/15 Surgical History: appendectomy, cholecystectomy, hysterectomy, - - Hysterectomy, right knee arthroscopic surgery, left shoulder rotator cuff tear intervention, hernia repair, left total knee replacement, left knee arthroscopic surgery, right knee replacement, back surgery, left total hip arthroplasty, right total hip arthroplasty, appendectomy. Lives: Spouse/ Significant Other Smoking Status: Never smoker - *Family History Maternal History Items: COPD Paternal History Items: COPD, Heart Disease, Hypertension Patient Problems: Active and Suspected Problems Cellulitis (Acute) Altered mental status, unspecified (Acute) Sepsis affecting skin (Acute) Acute encephalopathy (Acute) MRSA bacteremia (Acute) - Physical Exam General: Alert, Oriented x3, Cooperative, No apparent distress Abdomen: Soft, Non Tender, Non-Distended Skin: - - Back incision with only minimal erythema near justina, positive fluctuance, tender to palpation. Right hip incision again minimal erythema near justina, positive tenderness palpation. there was a patch of blanching light erythema between the 2 incisions about 5x5cm Neurological: Cranial nerves II-XII grossly intact Psych/Mental Status: Normal Affect Vital Signs Temp Pulse Resp BP Pulse Ox 98.2 F 71 16 135/61 H 95 12/11/17 02:29 12/11/17 02:29 12/11/17 02:29 12/11/17 02:29 12/11/17 02:29 Oxygen Flow Rate (L/min) 1 Oxygen Delivery Method Room Air Weight: 175 lb 14.862 oz Body Mass Index (BMI) 32.1 Intake and Output for Last 24 Hours Intake Total 1163 / 1163 1578 / 1578 592 / 592 Output Total 1275 / 1275 600 / 600 600 / 600 Balance -112 / -112 978 / 978 -8 / -8 Microbiology Past 72 Hours 12/08/17 10:44 Blood Culture - Preliminary Laboratory Tests Past 24 Hrs WBC 14.2 H RBC 3.26 L Hgb 8.8 L WBC 9.7 RBC 2.78 L Hgb 7.4 L Hct 23.6 L MCV 84.9 MCH 26.6 L MCHC 31.4 L RDW 15.0 H Assessment/Plan All Active Problems Cellulitis (Acute) Altered mental status, unspecified (Acute) Sepsis affecting skin (Acute) Acute encephalopathy (Acute) MRSA bacteremia (Acute) Hip pain, right (Acute) Acute back pain (Acute) 72-year-old female status post infected nerve stimulator removed, positive for MRSA infection at those sites and positive MRSA bacteremia 1. Discussed with patient that I can take her to the OR for an I AND D of the mid back and right hip incision just to wash them out to make sure there are not the source of the recurrent bacteremia as she had an echo which not show any vegetations and her midline was removed on 12/07. Her white blood cell count last few days has been between 12 and 14. ID did change her antibiotics to daptomycin and sure her white blood cell count is down to 9.2 today. Discussed with patient the procedure of taking out a few justina making a small repeat incision and allowing the area to drain after washing it out with irrigation and gettting wound cultures. And then leaving packing within to allow this area is to drain in case there is still infection in these areas as fluid collections were seen on CT a/p and u/s of the areas. Overall the wounds do not look really erythematous but unsure why should get a recurrent bacteremia other than the original source which was closed initially after purulent material was expressed on 11/30/17. Patient is agreeable to plan, as she is having pain in her right hip incision worse than her mid back. Also discussed with pt daughter and she was agreeable with plan. Santa Otoole M.D. Pager: [phone] [facility] [address] [place] [address], [address] [place] [address] Office: [phone] 12/11/17 0938 <Electronically signed by Santa Otoole MD> Date Santa Otoole MD Cosigner Signature (if applicable): Date CC: Tayla Brown MD; Ann-Marie Akhtar DO; Tony Dey MD; Elkin Wood MD; Logan Pandey MD; Santa Otoole MD Signed SPINE THORACIC W/WO Observed: 12/11/2017 Status: F Source: [place] CONTRAST 9:17 AM [facility] REPOSITORY [facility] Imaging Services [address] [place] [address] Spine Thoracic W/WO Contrast MR#: [id number] Acct: [id number] Name: STEPHIE UGARTE Rep #: [id number] : 1945 F 72 From: Ayan De La Fuente MD PCP: Elkin Wood MD Status: ADM IN Study: Spine Thoracic W/WO Contrast Date of Exam: 12/11/17 Exam# [id number] Ordering Dr: Mahi Daigle DO STUDY: MRI THORACIC SPINE WITH AND WITHOUT CONTRAST REASON FOR EXAM: Female, 72 years old. Spinal stimulator implanted 11/13/17. Removed on 11/30/17 d/t infection. Continued infection TECHNIQUE: 8 ml of Gadavist was administered intravenously for the contrast portion of the examination. # of Images: 208 COMPARISON: None. FINDINGS: Normal kyphosis of the thoracic spine. There is no substantial scoliosis. T1-2, T2-3, T3-4, T4-5, T5-6, T6-7, T7-8, T8-9, T9-10, T10- 11, T11-12: Normal endplates. Normal disc hydration, heights and morphology of the corresponding intervertebral discs. Normal central canal and intervertebral neural foramina at the corresponding levels. There is abnormal enhancement in the anterior epidural space at T2-3, T3-4, T4-5 consistent with inflammatory or infectious process. There is irregular enhancement of the anterior surface of the thoracic spinal cord at the T2-T3 and T4 may represent an infectious process. There is a signal abnormality within the spinal cord at T3 and T4 suggesting edema. Normal conus medullaris that terminates at the L1 level. There is abnormal enhancement in the posterior epidural space at T8-T11 suggesting inflammatory or infectious process. There is no enhancing abnormality. MRI/Spine Thoracic W/WO Contrast IMPRESSION: There is abnormal enhancement in the anterior epidural space at T2-3, T3-4, T4-5 and posterior epidural space at the T8-T11 consistent with inflammatory or infectious process. There is irregular enhancement of the anterior surface of the thoracic spinal cord at the T2-T3 and T4 may represent an infectious process. There is a signal abnormality within the spinal cord at T3 and T4 suggesting edema. Electronically Signed: Ayan De La Fuente MD at 15:54 EDT Tel , Service support , CC: Elkin Wood MD; Mahi Daigle DO Program Schedule Clerk: Signed SPINE LUMBAR W/WO Observed: 12/11/2017 Status: F Source: [place] CONTRAST 9:17 AM [facility] REPOSITORY [facility] Imaging Services [address] [place] [address] Spine Lumbar W/WO Contrast MR#: [id number] Acct: [id number] Name: STEPHIE UGARTE Rep #: [id number] : 1945 F 72 From: Ayan De La Fuente MD PCP: Elkin Wood MD Status: ADM IN Study: Spine Lumbar W/WO Contrast Date of Exam: 12/11/17 Exam# [id number] Ordering Dr: Mahi Daigle DO STUDY: MRI LUMBAR SPINE WITH AND WITHOUT CONTRAST REASON FOR EXAM: Female, 72 years old. Spinal stimulator implanted 11/15/17. Removed on 11/30/17 d/t infection. TECHNIQUE: Standardized fat and water weighted pulse sequences were obtained in the sagittal and axial planes. 8 ml of Gadavist contrast material was administered for the contrast portion of the examination. # of Images: 186 COMPARISON: None FINDINGS: T12-L1: Normal endplates. Normal disc height, hydration and morphology. Normal bilateral facet joints. Normal central canal and bilateral lateral recesses. Normal bilateral intervertebral neural foramina. Normal lumbar lordosis. There is no substantial scoliosis. Normal conus medullaris that terminates at the L1-2 level L1-2: Endplate spondylosis. Decreased disc height and small circumferential disc bulge. Degenerative changes of the bilateral facet joints. Mild narrowing of the central canal and bilateral intervertebral neural foramina. L2-3: Endplate spondylosis. 5 mm spondylolisthesis. Decreased disc height and moderate circumferential disc bulge. Degenerative changes of the bilateral facet joints. Severe narrowing of the central canal and bilateral intervertebral neural foramina. L3-4: Bilateral laminectomy. Degenerative changes of the bilateral facet joints. Moderate narrowing of the bilateral intervertebral neural foramina. L4-5: Bilateral laminectomy. Degenerative changes of the bilateral facet joints. Moderate narrowing of the bilateral intervertebral neural foramina. L5-S1: Bilateral laminectomy. Degenerative changes of the bilateral facet joints. Moderate narrowing of the bilateral intervertebral neural foramina. Normal visualized sacral ala. Fluid collection in the soft tissues posterior to the laminectomy site measures approximately 3.6 x 1.6 x 5.2 cm suggesting seroma. MRI/Spine Lumbar W/WO Contrast IMPRESSION: Multilevel degenerative changes, as described above. Severe spinal canal stenosis at L2-3. Electronically Signed: Ayan De La Fuente MD at 16:00 EDT Tel , Service support , CC: Elkin Wood MD; Mahi Daigle DO Program Schedule Clerk: Signed Observed: 12/11/2017 Status: F Source: [place] CULTURE, DEEP WOUND 8:34 AM [facility] REPOSITORY Order Date: 09/24/16 Comments: PUS RIGHT HIP Gram Stain Gram Stain 4+ Red Blood Cells 1+ White Blood Cells Very Rare Gram positive cocci Wound Culture Copy of report sent to Infection Control Printer [id number] 12/13/17 0735 JUSTYN. RESULTS FAXED TO [facility] 12/13/17 0482 Alyssa García. ORGANISM 1: Meth. resistant Staph. aureus Amount Growth 2+ Meth. resistant Staph. aureus: REACTION Benzylpenicillin NF >=0.5 R Cefoxitin *NF + Clindamycin $$ <=0.25 S Inducable Clindamycin Resistan - Erythromycin $ <=0.25 S Gentamicin $ <=0.5 S Levofloxacin $ 0.25 S Linezolid $$$$ 2 S Oxacillin NF >=4 R Tigecycline $$$$ <=0.12 S Rifampin $$ <=0.5 S Tetracycline NF <=1 S Trimethoprim/Sulfametho $ <=10 S Vancomycin $ <=0.5 S (NF) indicates non-formulary drug at [facility]. Approval by Infectious Disease Specialist required before non-formulary drugs may be ordered and/or dispensed. * CLSI guidelines does not recommend testing of cephalosporins. This interpretation is deduced from Beta-lactam/penicillin results. Cult, Anaerobic No anaerobic bacteria isolated. Performed By: #### M100.1500 #### [facility] [address] [place], [address] Observed: 12/11/2017 Status: F Source: [place] CULTURE, DEEP WOUND 8:34 AM [facility] REPOSITORY Order Date: 09/24/16 Comments: PUS RIGHT MID BACK Gram Stain Gram Stain 2+ Red Blood Cells 2+ White Blood Cells 1+ Gram positive cocci Wound Culture Copy of report sent to Infection Control Printer [id number] 12/13/17 0735 GIATATI. RESULTS FAXED TO [facility] 12/13/17 6693 Alyssa García. ORGANISM 1: Meth. resistant Staph. aureus Amount Growth 2+ Meth. resistant Staph. aureus: REACTION Benzylpenicillin NF >=0.5 R Cefoxitin *NF + Clindamycin $$ <=0.25 S Inducable Clindamycin Resistan - Erythromycin $ <=0.25 S Gentamicin $ <=0.5 S Levofloxacin $ 0.25 S Linezolid $$$$ 2 S Oxacillin NF >=4 R Tigecycline $$$$ <=0.12 S Rifampin $$ <=0.5 S Tetracycline NF <=1 S Trimethoprim/Sulfametho $ <=10 S Vancomycin $ 1 S (NF) indicates non-formulary drug at [facility]. Approval by Infectious Disease Specialist required before non-formulary drugs may be ordered and/or dispensed. * CLSI guidelines does not recommend testing of cephalosporins. This interpretation is deduced from Beta-lactam/penicillin results. Cult, Anaerobic No anaerobic bacteria isolated. Performed By: #### M100.1500 #### [facility] [address] [place], [address] Observed: 12/11/2017 Status: F Source: [place] CULTURE, DEEP WOUND 8:34 AM [facility] REPOSITORY Order Date: 09/24/16 Comments: TISSUE RIGHT HIP Gram Stain Gram Stain 4+ Red Blood Cells 2+ White Blood Cells 2+ Gram positive cocci Wound Culture Copy of report sent to Infection Control Printer [id number] 12/13/17 5635 JUSTYN. RESULTS FAXED TO [facility] 12/13/17 3222 Alyssa García. ORGANISM 1: Meth. resistant Staph. aureus Amount Growth 1+ Meth. resistant Staph. aureus: REACTION Benzylpenicillin NF >=0.5 R Cefoxitin *NF + Clindamycin $$ <=0.25 S Inducable Clindamycin Resistan - Erythromycin $ <=0.25 S Gentamicin $ <=0.5 S Levofloxacin $ <=0.12 S Linezolid $$$$ 2 S Oxacillin NF >=4 R Tigecycline $$$$ <=0.12 S Rifampin $$ <=0.5 S Tetracycline NF <=1 S Trimethoprim/Sulfametho $ <=10 S Vancomycin $ 1 S (NF) indicates non-formulary drug at [facility]. Approval by Infectious Disease Specialist required before non-formulary drugs may be ordered and/or dispensed. * CLSI guidelines does not recommend testing of cephalosporins. This interpretation is deduced from Beta-lactam/penicillin results. Cult, Anaerobic No anaerobic bacteria isolated. Performed By: #### M100.1500 #### [facility] [address] [place], [place], [address] CBC-COMPLETE BLOOD CNT Collected: 12/11/2017 Status: F Source: [place] NO DIFF 6:08 AM [facility] REPOSITORY Order Comment: Comments: per surgery protocol TYPE CODE TESTS RESULT OUT OF RANGE REFERENCE UNITS LAB L100.1000 4.4-11.0 K/mm3 Normal WBC 9.7 LAB L100.1200 4.2-5.4 M/mm3 Low RBC 2.78 LAB L100.1300 12.0-15.0 g/dl Low HGB 7.4 LAB L100.1400 37-47 % Low HCT 23.6 LAB L100.1500 81-99 fL Normal MCV 84.9 LAB L100.1600 27.0-32.0 pg Low MCH 26.6 LAB L100.1700 32-36 g/gl Low MCHC 31.4 LAB L100.1810 11.6-14.6 % High RDW CV 15.0 LAB L100.1820 35.1-43.9 fl High RDW SD 46.9 LAB L100.1900 150-450 K/mm3 High PLT 489 LAB L100.2000 6.2-12.0 fl Normal MPV 8.4 Performed By: #### L100.0500, L500.2500 #### [facility] [address] [place], [place], [address] BASIC METABOLIC Collected: 12/11/2017 Status: F Source: [place] PROFILE (BMP) 6:08 AM [facility] REPOSITORY TYPE CODE TESTS RESULT OUT OF RANGE REFERENCE UNITS LAB L501.0100 74-106 mg/dL Normal GLU 90 Result Comment: Please note revised GLUCOSE reference range effective 2017. LAB L501.1000 7-18 mg/dL High BUN 20 LAB L501.1100 0.55-1.02 mg/dL Normal CREAT,SERUM 0.55 Result Comment: The validity of the calculated GFR AND GFRAA in patients over 70 years has not been determined. Clinical correlation is essential. LAB L501.1110 >60 mL/min Normal EST GFR 115 Result Comment: Non- GFR Calc LAB L501.1115 >60 mL/min Normal EST GFR - AA 139 Result Comment: GFR Calc LAB L501.1255 ml/min Normal Estimated CRCL 40.81 LAB L501.1300 10-20 RATIO High BUN/CRE 36.2 LAB L501.2200 8.5-10 mg/dL Low .1 CA 7.6 LAB L501.5300 136-14 mmol/L Normal 5 NA 136 LAB L501.5600 3.5-5. mmol/L Normal 1 K 3.9 LAB L501.5900 98-107 mmol/L Normal CL 104 LAB L501.6100 21.0-3 mmol/L Normal 2.0 CO2 25.0 LAB L501.6200 5-15 Normal GAP 7 Performed By: #### L100.0500, L500.2500 #### [facility] [address] [place], [place], [address] CPK TOTAL, CREATINE Collected: 12/11/2017 Status: F Source: [place] KINASE 6:08 AM [facility] REPOSITORY Order Comment: Comments: add on to am labs TYPE CODE TESTS RESULT OUT OF RANGE REFERENCE UNITS LAB L501.3620 26-192 U/L Normal CPK TOTAL 26 Performed By: #### L501.3620 #### [facility] [address] [place], [address] MR OUTSIDE CD DICOM Observed: 12/11/2017 Status: F Source: [facility]ORT -NBNR 12:00 AM [facility] REPOSITORY Images were obtained outside of [facility] [id number] MR OUTSIDE CD DICOM Observed: 12/11/2017 Status: F Source: [facility] -NBNR 12:00 AM [facility] REPOSITORY Images were obtained outside of [facility] [id number] EXT NON VASC Observed: 12/10/2017 Status: F Source: [place] LIMITED/SOFT TISS 11:25 AM [facility] REPOSITORY [facility] Imaging Services [address] [place] [address] Ext Non Vasc Limited/Soft Tiss MR#: [id number] Acct: [id number] Name: STEPHIE UGARTE Rep #: [id number] : 1945 F 72 From: Gal Edge DO PCP: Elkin Wood MD Status: ADM IN Study: Ext Non Vasc Limited/Soft Tiss Date of Exam: 12/10/17 Exam# [id number] Ordering Dr: Logan Pandey MD ADDENDUM by Gal Edge DO on 12/10/17 at 1846 ADDENDUM When compared to the previous ultrasound from December 07, 2017, the 2 collections on the current study along the mid spine area appeared to communicate with each other on the prior study. Slight decrease in subcutaneous fluid since the previous study. The questionable hematoma in the right hip scar area appears better defined on the current study. Electronically Signed: Gal Edge DO at 18:46 EDT Tel [phone], Service support , 12/10/17 1846 Date cc: Elkin Wood MD; Logan Pandey MD * Signed ADDENDUM by Gal Edge DO on 12/10/17 at 1846 US/Ext Non Vasc Limited/Soft Tiss 12/10/17 1853 Date cc: Elkin Wood MD; Logan Pandey MD * Signed STUDY: SOFT TISSUE ULTRASOUND OF RIGHT HIP AND MID SPINE SCAR REASON FOR EXAM: Female, 72 years old. Abscess TECHNIQUE: Ultrasound COMPARISON: None. FINDINGS: There is a 9 x 8 x 6 mm anechoic area just deep to the stitches/scar area of the mid spine. An irregular hypoechoic area is noted inferior to the mid spine scar area measuring 3.1 x 1.8 x 1.0 cm. Small abscesses cannot be excluded. There is also a slightly hypoechoic amorphic area within the subcutaneous soft tissue, possibly a hematoma or collection. In the right hip scar area, there is a 8.9 x 4.4 cm heterogeneous structure, possibly a hematoma. US/Ext Non Vasc Limited/Soft Tiss IMPRESSION: Anechoic to hypoechoic small collections are noted along the mid spine scar area possibly seroma or abscess. Heterogeneous structure the right hip scar area possibly a hematoma. Correlate with contrast-enhanced CT if clinically indicated. Electronically Signed: Gal Edge DO at 18:38 EDT Tel [phone], Service support , CC: Elkin Wood MD; Logan Pandey MD Program Schedule Clerk: Signed Observed: 12/10/2017 Status: F Source: [place] CULTURE, BLOOD (WB) 10:39 AM [facility] REPOSITORY BC No growth in 5 days. Performed By: #### M200.1000 #### [facility] [place], [address] CBC W/DIFF, AUTOMATED Collected: 12/10/2017 Status: C Source: [place] 7:44 AM [facility] REPOSITORY TYPE CODE TESTS RESULT OUT OF RANGE REFERENCE UNITS LAB L100.1000 4.4-11.0 K/mm3 High WBC 14.2 LAB L100.1200 4.2-5.4 M/mm3 Low RBC 3.26 LAB L100.1300 12.0-15.0 g/dl Low HGB 8.8 LAB L100.1400 37-47 % Low HCT 28.1 LAB L100.1500 81-99 fL Normal MCV 86.2 LAB L100.1600 27.0-32.0 pg Normal MCH 27.0 LAB L100.1700 32-36 g/gl Low MCHC 31.3 LAB L100.1810 11.6-14.6 % High RDW CV 14.9 LAB L100.1820 35.1-43.9 fl High RDW SD 45.0 LAB L100.1900 150-450 K/mm3 High PLT 607 LAB L100.2000 6.2-12.0 fl Normal MPV 9.2 LAB L100.2100 47-70 % High NEUT% 78.4 LAB L100.2200 19-41 % Low LY% 9.3 LAB L100.2300 0-10 % High MONO% 11.1 LAB L100.2400 0-5 % Normal EO% 0.2 LAB L100.2500 0-1 % Normal BASO% 0.4 LAB L100.2550 0.0-0.9 % Normal IM GRAN % 0.600 Result Comment: IG% - Immature Granulocytes (promyelocytes, myelocytes and metamyelocytes) > 1% indicates that a LEFT SHIFT is Present. LAB L100.2620 2.0-7.7 X10 3/uL High Absolute Neut 11.1 LAB L100.2720 0.83-4.51 X10 3/ul Normal Absolute Lymph 1.32 LAB L100.5500 ADEQ Normal PLT EST MOD INC LAB L100.9900 Normal PATH REV Reviewed Result Comment: Neutrophilic leukocytosis. Normocytic anemia. Thrombocytosis. Clinical correlation necessary. Osvaldo Guzman M.D. 12/14/17 AMENDED REPORT 12/14/17 1148 PATH REV previously reported as: Maru amaya Performed By: #### L100.0100 #### [facility] [address] [place], [address] BASIC METABOLIC Collected: 12/10/2017 Status: F Source: [place] PROFILE (BMP) 7:44 AM [facility] REPOSITORY TYPE CODE TESTS RESULT OUT OF RANGE REFERENCE UNITS LAB L501.0100 74-106 mg/dL Normal GLU 88 Result Comment: Please note revised GLUCOSE reference range effective 2017. LAB L501.1000 7-18 mg/dL High BUN 23 LAB L501.1100 0.55-1.02 mg/dL Normal CREAT,SERUM 0.66 Result Comment: The validity of the calculated GFR AND GFRAA in patients over 70 years has not been determined. Clinical correlation is essential. LAB L501.1110 >60 mL/min Normal EST GFR 94 Result Comment: Non- GFR Calc LAB L501.1115 >60 mL/min Normal EST GFR - AA 114 Result Comment: GFR Calc LAB L501.1255 ml/min Normal Estimated CRCL 40.81 LAB L501.1300 10-20 RATIO High BUN/CRE 35.0 LAB L501.2200 8.5-10 mg/dL Low .1 CA 7.8 LAB L501.5300 136-14 mmol/L Low 5 NA 132 LAB L501.5600 3.5-5. mmol/L Normal 1 K 4.6 LAB L501.5900 98-107 mmol/L Normal CL 104 LAB L501.6100 21.0-3 mmol/L Normal 2.0 CO2 23.0 LAB L501.6200 5-15 Normal GAP 5 Performed By: #### L500.2500 #### [facility] [address] [place], [address] US OUTSIDE CD DICOM Observed: 12/10/2017 Status: F Source: [facility] -NBNR 12:00 AM [facility] REPOSITORY Images were obtained outside of [facility] [id number] Observed: 12/09/2017 Status: F Source: [place] CULTURE, BLOOD (WB) 10:06 AM [facility] REPOSITORY ANAEROBIC BOTTLE GRAM STAIN: GRAM POSITIVE COCCI RESULTS CALLED TO CASS 12/10/17 0540 Mikayla Lowry. REPORT READ BACK BY SAME. REFER TO [id number] FOR SENSITIVITIES ORGANISM 1: Meth. resistant Staph. aureus Amount Growth Growth Performed By: #### M200.1000 #### [facility] [address] [place], [address] Observed: 12/08/2017 Status: F Source: [place] CULTURE, BLOOD (WB) 10:44 AM [facility] REPOSITORY CALLED XIOMY FINK WITH POSITIVE BLOOD CULTURE BY [facility] 12-10-17 AT 2234PM PRELIM GRAM STAIN =GRAM POS COCCI VERIGENE TO FOLLOW BC REFER TO [phone] FOR SENSITIVITIES ORGANISM 1: Staphylococcus aureus Performed By: #### M200.1000 #### [facility] [address] [place], [address] BASIC METABOLIC Collected: 12/08/2017 Status: F Source: [place] PROFILE (BMP) 5:43 AM [facility] REPOSITORY TYPE CODE TESTS RESULT OUT OF RANGE REFERENCE UNITS LAB L501.0100 74-106 mg/dL High GLU 115 Result Comment: Fasting Glucose result from 100 to 125 mg/dL suggests IMPAIRED HOMEOSTASIS per A.D.A. criteria. Please note revised GLUCOSE reference range effective 2017. LAB L501.1000 7-18 mg/dL High BUN 25 LAB L501.1100 0.55-1.02 mg/dL Low CREAT,SERUM 0.53 Result Comment: The validity of the calculated GFR AND GFRAA in patients over 70 years has not been determined. Clinical correlation is essential. LAB L501.1110 >60 mL/min Normal EST GFR 122 Result Comment: Non- GFR Calc LAB L501.1115 >60 mL/min Normal EST GFR - AA 147 Result Comment: GFR Calc LAB L501.1255 ml/min Normal Estimated CRCL 40.81 LAB L501.1300 10-20 RATIO High BUN/CRE 47.4 LAB L501.2200 8.5-10 mg/dL Low .1 CA 7.8 LAB L501.5300 136-14 mmol/L Normal 5 NA 137 LAB L501.5600 3.5-5. mmol/L Low 1 K 3.4 LAB L501.5900 98-107 mmol/L Normal CL 99 LAB L501.6100 21.0-3 mmol/L Normal 2.0 CO2 30.0 LAB L501.6200 5-15 Normal GAP 8 Performed By: #### L500.2500, L500.3400, L501.3620 #### [facility] [address] [place], [place], [address] LIVER PROFILE Collected: 12/08/2017 Status: F Source: [place] 5:43 AM [facility] REPOSITORY TYPE CODE TESTS RESULT OUT OF RANGE REFERENCE UNITS LAB L501.1500 6.4-8.2 g/dL Low T PROT 5.8 LAB L501.1800 3.2-5.0 g/dL Low ALB 1.7 LAB L501.1950 2.2-4.2 g/dL Normal GLOB 4.1 LAB L501.4100 15-37 U/L Normal AST 34 LAB L501.4305 45-117 U/L Normal ALK P 86 LAB L501.4405 13-56 U/L Normal ALT 54 LAB L501.4600 0.20-1.00 mg/dL Normal T BILI 0.30 LAB L501.4700 0.00-0.30 mg/dL Normal D BILI 0.11 Performed By: #### L500.2500, L500.3400, L501.3620 #### [facility] [address] [place], [place], [address] CPK TOTAL, CREATINE Collected: 12/08/2017 Status: F Source: [place] KINASE 5:43 AM [facility] REPOSITORY TYPE CODE TESTS RESULT OUT OF RANGE REFERENCE UNITS LAB L501.3620 26-192 U/L Normal CPK TOTAL 31 Performed By: #### L500.2500, L500.3400, L501.3620 #### [facility] [address] [place], [address] EXT NON VASC Observed: 12/07/2017 Status: F Source: [place] LIMITED/SOFT TISS 2:33 PM [facility] REPOSITORY [facility] [place] [address] Ext Non Vasc Limited/Soft Tiss MR#: [id number] Acct: [id number] Name: STEPHIE UGARTE Rep #: [id number] : 1945 F 72 From: Javier Cordero DO PCP: Elkin Wood MD Status: ADM IN Study: Ext Non Vasc Limited/Soft Tiss Date of Exam: 12/07/17 Exam# [id number] Ordering Dr: Logan Pandey MD STUDY: SUPERFICIAL ULTRASOUND - RIGHT HIP AND MID SPINE REGION REASON FOR EXAM: Female, 72 years old. Evaluate for abscess. Postsurgical sites TECHNIQUE: A superficial ultrasound was performed with real- time and static jerry-scale imaging. COMPARISON: None. FINDINGS: Targeted imaging in the specific areas overlying the right hip and mid spine region demonstrate areas of scarring. In the right hip region, there is no evidence of underlying fluid collection to represent abscess. In the spinal region, there appears to be a bilobed predominantly anechoic structure. No internal vascularity. First area measures 1.1 x 1 x 0.9 cm while the second area measures 2.3 x 1.3 x 1.4 cm. US/Ext Non Vasc Limited/Soft Tiss IMPRESSION: 1. No abnormality in the region of the right hip surgical site 2. The spinal surgical site, there is a predominantly anechoic bilobed structure without internal vascularity which is likely postoperative seroma. Abscess cannot be excluded. Electronically Signed: Javier Cordero DO at 19:01 EDT Tel , Service support , CC: Elkin Wood MD; Logan Pandey MD Program Schedule Clerk: Signed Observed: 12/07/2017 Status: F Source: [place] CULTURE, BLOOD (WB) 10:15 AM [facility] REPOSITORY BC No growth in 5 days. Performed By: #### M200.1000 #### [facility] [address] [place], [place], [address] BASIC METABOLIC Collected: 12/07/2017 Status: F Source: [place] PROFILE (BMP) 6:03 AM [facility] REPOSITORY Order Comment: SPECIMEN OBTAINED FROM LINE DRAW TYPE CODE TESTS RESULT OUT OF RANGE REFERENCE UNITS LAB L501.0100 74-106 mg/dL High GLU 116 Result Comment: Fasting Glucose result from 100 to 125 mg/dL suggests IMPAIRED HOMEOSTASIS per A.D.A. criteria. Please note revised GLUCOSE reference range effective 2017. LAB L501.1000 7-18 mg/dL High BUN 26 LAB L501.1100 0.55-1.02 mg/dL Normal CREAT,SERUM 0.62 Result Comment: The validity of the calculated GFR AND GFRAA in patients over 70 years has not been determined. Clinical correlation is essential. LAB L501.1110 >60 mL/min Normal EST GFR 101 Result Comment: Non- GFR Calc LAB L501.1115 >60 mL/min Normal EST GFR - AA 122 Result Comment: GFR Calc LAB L501.1255 ml/min Normal Estimated CRCL 40.81 LAB L501.1300 10-20 RATIO High BUN/CRE 41.9 LAB L501.2200 8.5-10 mg/dL Low .1 CA 7.7 LAB L501.5300 136-14 mmol/L Low 5 NA 134 LAB L501.5600 3.5-5. mmol/L Normal 1 K 3.5 LAB L501.5900 98-107 mmol/L Low CL 94 LAB L501.6100 21.0-3 mmol/L Normal 2.0 CO2 31.0 LAB L501.6200 5-15 Normal GAP 9 Performed By: #### L500.2500 #### [facility] [address] [place], [place], [address] CBC-COMPLETE BLOOD CNT Collected: 12/07/2017 Status: F Source: [place] NO DIFF 6:03 AM [facility] REPOSITORY Order Comment: SPECIMEN OBTAINED FROM LINE DRAW TYPE CODE TESTS RESULT OUT OF RANGE REFERENCE UNITS LAB L100.1000 4.4-11.0 K/mm3 High WBC 13.7 LAB L100.1200 4.2-5.4 M/mm3 Low RBC 3.11 LAB L100.1300 12.0-15.0 g/dl Low HGB 8.5 LAB L100.1400 37-47 % Low HCT 26.5 LAB L100.1500 81-99 fL Normal MCV 85.2 LAB L100.1600 27.0-32.0 pg Normal MCH 27.3 LAB L100.1700 32-36 g/gl Normal MCHC 32.1 LAB L100.1810 11.6-14.6 % Normal RDW CV 14.6 LAB L100.1820 35.1-43.9 fl High RDW SD 44.3 LAB L100.1900 150-450 K/mm3 Normal PLT 440 LAB L100.2000 6.2-12.0 fl Normal MPV 9.7 Performed By: #### L100.0500 #### [facility] [address] [place], [address] US OUTSIDE CD DICOM Observed: 12/07/2017 Status: F Source: [facility] 12:00 AM [facility] REPOSITORY Images were obtained outside of [facility] [id number] Observed: 12/06/2017 Status: F Source: [facility] CULTURE, BLOOD (WB) 8:44 AM [facility] REPOSITORY BC PLEASE REFER TO [id number] FOR SENSITIVITY No anaerobic bacteria isolated. ORGANISM 1: Meth. resistant Staph. aureus Performed By: #### M200.1000 #### [facility] [address] [place], [place], [address] CBC-COMPLETE BLOOD CNT Collected: 12/06/2017 Status: F Source: [facility] NO DIFF 5:07 AM [facility] REPOSITORY Order Comment: SPECIMEN OBTAINED FROM LINE DRAW TYPE CODE TESTS RESULT OUT OF RANGE REFERENCE UNITS LAB L100.1000 4.4-11.0 K/mm3 High WBC 12.3 LAB L100.1200 4.2-5.4 M/mm3 Low RBC 3.00 LAB L100.1300 12.0-15.0 g/dl Low HGB 8.3 LAB L100.1400 37-47 % Low HCT 25.8 LAB L100.1500 81-99 fL Normal MCV 86.0 LAB L100.1600 27.0-32.0 pg Normal MCH 27.7 LAB L100.1700 32-36 g/gl Normal MCHC 32.2 LAB L100.1810 11.6-14.6 % Normal RDW CV 14.6 LAB L100.1820 35.1-43.9 fl High RDW SD 44.3 LAB L100.1900 150-450 K/mm3 Normal PLT 329 LAB L100.2000 6.2-12.0 fl Normal MPV 10.2 Performed By: #### L100.0500 #### [facility] [address] [place], [address] BASIC METABOLIC Collected: 12/06/2017 Status: F Source: [facility] [place] PROFILE ([facility]) 5:07 AM [facility] REPOSITORY Order Comment: SPECIMEN OBTAINED FROM LINE DRAW TYPE CODE TESTS RESULT OUT OF RANGE REFERENCE UNITS LAB L501.0100 74-106 mg/dL High GLU 118 Result Comment: Fasting Glucose result from 100 to 125 mg/dL suggests IMPAIRED HOMEOSTASIS per A.D.A. criteria. Please note revised GLUCOSE reference range effective 2017. LAB L501.1000 7-18 mg/dL High BUN 20 LAB L501.1100 0.55-1.02 mg/dL Normal CREAT,SERUM 0.61 Result Comment: The validity of the calculated GFR AND GFRAA in patients over 70 years has not been determined. Clinical correlation is essential. LAB L501.1110 >60 mL/min Normal EST GFR 103 Result Comment: Non- GFR Calc LAB L501.1115 >60 mL/min Normal EST GFR - AA 124 Result Comment: GFR Calc LAB L501.1255 ml/min Normal Estimated CRCL 40.81 LAB L501.1300 10-20 RATIO High BUN/CRE 32.7 LAB L501.2200 8.5-10 mg/dL Low .1 CA 7.4 LAB L501.5300 136-14 mmol/L Low 5 NA 134 LAB L501.5600 3.5-5. mmol/L Low 1 K 3.1 LAB L501.5900 98-107 mmol/L Low CL 93 LAB L501.6100 21.0-3 mmol/L High 2.0 CO2 35.0 LAB L501.6200 5-15 Normal GAP 6 Performed By: #### L500.2500, L501.5200 #### [facility] [address] [place], [address] MAGNESIUM Collected: 12/06/2017 Status: F Source: [place] 5:07 AM [facility] REPOSITORY Order Comment: SPECIMEN OBTAINED FROM LINE DRAW TYPE CODE TESTS RESULT OUT OF RANGE REFERENCE UNITS LAB L501.5200 1.6-2.6 mg/dL Normal MG 2.0 Performed By: #### L500.2500, L501.5200 #### [facility] [address] [place], [address] Observed: 12/05/2017 Status: F Source: [place] CULTURE, BLOOD (WB) 1:10 PM [facility] REPOSITORY BC GRAM STAIN = GRAM POSITIVE COCCI IN CLUSTERS RESULTS [facility] 0801 Jing Hutchinson. REPORT READ BACK BY [facility]. MRSA PREVIOUSLY REPORTED TO FLOOR AND INFECTION CONTROL No anaerobic bacteria isolated. ORGANISM 1: Meth. resistant Staph. aureus Meth. resistant Staph. aureus: REACTION Benzylpenicillin NF >=0.5 R Cefoxitin *NF + Clindamycin $$ <=0.25 S Inducable Clindamycin Resistan - Erythromycin $ <=0.25 S Gentamicin $ <=0.5 S Levofloxacin $ 0.25 S Linezolid $$$$ 2 S Oxacillin NF >=4 R Tigecycline $$$$ <=0.12 S Rifampin $$ <=0.5 S Tetracycline NF <=1 S Trimethoprim/Sulfametho $ <=10 S Vancomycin $ <=0.5 S (NF) indicates non-formulary drug at [facility]. Approval by Infectious Disease Specialist required before non-formulary drugs may be ordered and/or dispensed. * CLSI guidelines does not recommend testing of cephalosporins. This interpretation is deduced from Beta-lactam/penicillin results. Performed By: #### M200.1000 #### [facility] [address] [facility] [place], [address] URINALYSIS, COMPLETE Collected: 12/05/2017 Status: F Source: [facility] 1:04 PM [facility] REPOSITORY Order Comment: How was Urine Obtained? SOFTWARE QUALITY ASSURANCE ENGINEER TO SPECIFY TYPE CODE TESTS RESULT OUT OF RANGE REFERENCE UNITS LAB L400.3000 Yellow COLOR Normal Yellow LAB L400.3050 Clear Normal CLARITY Sl. Cloudy LAB L400.3200 Normal mg/dl Normal GLUCOSE, UR Normal LAB L400.3300 Negative mg/dL Normal BILIRUBIN URINE Negative LAB L400.3400 Negative mg/dl Normal KETONE UR Negative LAB L400.3465 1.002-1.030 Normal SP.GR. DIPSTX 1.005 LAB L400.3550 5.0 - 8.0 pH UR Normal 6.5 LAB L400.3600 Negative mg/dl PROT Normal DIPSTX Negative LAB L400.3700 Normal mg/dl Normal UROBILI Normal LAB L400.3750 Negative Normal NITRITE UR Negative LAB L400.3780 Negative /ul Normal OCCULT BLOOD-UR Negative LAB L400.3800 Negative /ul High LEUK ESTERASE 100 LAB L400.4050 0-5 /hpf WBC Normal 5-10 SEEN LAB L400.4100 0-5 /hpf Normal RBC-UA 0-5 SEEN LAB L400.4150 5-10 /hpf SQUAM 0 Normal EPI SEEN LAB L400.4300 None Seen /hpf 0 Normal BACTERIA SEEN LAB L400.4350 <or=2+ /hpf 0 Normal MUCUS, URINE SEEN LAB L400.5200 None Seen /hpf 2+ Normal YEAST-URINE Performed By: #### L400.0001 #### [facility] [address] [place], [address] BASIC METABOLIC Collected: 12/05/2017 Status: F Source: [facility] PROFILE (BMP) 6:52 AM [facility] REPOSITORY TYPE CODE TESTS RESULT OUT OF RANGE REFERENCE UNITS LAB L501.0100 74-106 mg/dL Normal GLU 106 Result Comment: Fasting Glucose result from 100 to 125 mg/dL suggests IMPAIRED HOMEOSTASIS per A.D.A. criteria. Please note revised GLUCOSE reference range effective 2017. LAB L501.1000 7-18 mg/dL Normal BUN 16 LAB L501.1100 0.55-1.02 mg/dL Normal CREAT,SERUM 0.61 Result Comment: The validity of the calculated GFR AND GFRAA in patients over 70 years has not been determined. Clinical correlation is essential. LAB L501.1110 >60 mL/min Normal EST GFR 103 Result Comment: Non- GFR Calc LAB L501.1115 >60 mL/min Normal EST GFR - AA 125 Result Comment: GFR Calc LAB L501.1255 ml/min Normal Estimated CRCL 40.81 LAB L501.1300 10-20 RATIO High BUN/CRE 26.3 LAB L501.2200 8.5-10 mg/dL Low .1 CA 7.7 LAB L501.5300 136-14 mmol/L Low 5 NA 132 LAB L501.5600 3.5-5. mmol/L Normal 1 K 3.5 LAB L501.5900 98-107 mmol/L Low CL 95 LAB L501.6100 21.0-3 mmol/L High 2.0 CO2 33.0 LAB L501.6200 5-15 Low GAP 4 Performed By: #### L500.2500 #### [facility] [address] [facility] [place], [address] CONSULTATION Observed: 12/04/2017 Status: F Source: [place] 6:40 PM [facility] REPOSITORY [facility] Medical Records Department [address] [place] [address] Consultation 11/30/17 1237 MR#: [id number] Acct: [id number] Name: STEPHIE UGARTE Rep #: [id number] : 1945 72 From: Ann-Marie Akhtar DO PCP: Elkin Wood MD Status: ADM IN Y [id number] Consultation - Renal 11/30/17 PCP/ Referring MD: Requesting physician: José Perez Primary care physician: Elkin Wood Reason for Consultation:: proteinuria - History of Present Illness History of Present Illness: The patient is a 72 year old F with a significant history of chronic back pain on pain pump, COPD; hypertension; upper and lower spine surgery, who presents with progressive weakness and lethargy with fever. She has not been feeling well for the past 2 weeks. Patient was seen in the emergency department a day before this admission at that time CT scan of the head showed sinus infection. She was discharged to home on Augmentin according to medical records. However patient denied any antibiotics. She denied any sinus congestion or cough. She does admit to a sore throat. She noticed diarrhea recently. Denied any abdominal pain, nausea, vomiting or myalgias. She is a questionable historian. Denied falling at home. She lives with a friend. Patient apparently was incontinent at home as well as in the emergency department on presentation. She was reported to have poor appetite. She complains of a headache. Blood culture sent on admission showed gram-positive cocci. She is currently on IV vancomycin and zosyn. She was found to be hypokalemic with creatinine improved from 1.0 on admit to 0.8 today with iv fluids. I was asked to see her on consult for proteinuria. She denied any history of hypertension or diabetes. She is not aware of having proteinuria in the past. She has no history of anemia that she is aware of. She denied any history of NSAID use. Spot urine protein creatinine ratio during this admission showed 2.2 g/g creatinine - Allergies Allergies: Allergies No Known Allergies Allergy (Verified 11/29/17 18:30) - Current Medications Current Medications: Current Medications Acetaminophen (Tylenol) 650 mg PO Q6H PRN PRN PRN Reason: Mild Pain (scale 0-3)/T>100.7 Last Admin: 11/30/17 10:10 Dose: 650 mg Albuterol Sulfate (Ventolin Aerosols) 2.5 mg INHALATION Q6HWA.RT [facility] Last Admin: 11/30/17 06:49 Dose: 2.5 mg Budesonide (Pulmicort Aerosol) 0.5 mg INHALATION Q12H.RT [facility] Last Admin: 11/30/17 06:49 Dose: 0.5 mg Heparin Sodium (Porcine) (Heparin Na) 5,000 unit SC Q8 [facility] Last Admin: 11/30/17 11:04 Dose: Not Given Hydrochlorothiazide (Hydrochlorothiazide) 12.5 mg PO DAILY [facility] Last Admin: 11/30/17 09:36 Dose: 12.5 mg Piperacillin Sod/Tazobactam Sod (Zosyn) 3.375 gm in 50 mls @ 12.5 mls/hr IV Q8 [facility] Last Admin: 11/30/17 06:12 Dose: 12.5 mls/hr Vancomycin IV Pharmacy to Dose (1,250 ea/ Sodium Chloride) 500 mls @ 250 mls/hr IV PRN PRN; Protocol Potassium Chloride 40 meq/ (Lactated Ringer's) 1,020 mls @ 100 mls/hr IV .[id number] [facility] Stop: 11/30/17 14:18 Last Admin: 11/30/17 04:19 Dose: 100 mls/hr Vancomycin HCl 750 mg/ Sodium (Chloride) 265 mls @ 250 mls/hr IV Q12H [facility] Labetalol HCl (Trandate) 10 mg IV Q4H PRN PRN PRN Reason: SBP > 160 Lisinopril (Zestril) 10 mg PO DAILY [facility] Last Admin: 11/30/17 09:36 Dose: 10 mg Magnesium Hydroxide (Milk Of Magnesia) 30 ml PO DAILY PRN PRN PRN Reason: Constipation Nutritional Formula (Lactose Free) (Ensure Enlive) 120 ml PO 4X/DAY [facility] Last Admin: 11/30/17 11:04 Dose: Not Given Ondansetron HCl (Zofran) 4 mg IV Q8H PRN PRN PRN Reason: Nausea Senna/Docusate Sodium (Senokot-S, Radha-Colace) 1 tablet PO BID [facility] Last Admin: 11/30/17 09:37 Dose: Not Given Sodium Chloride () 5 - 30 ml IV UD PRN PRN Reason: SALINE FLUSH Last Admin: 11/30/17 06:14 Dose: 10 ml - Past Medical History Past Medical History (Chronic Problems): Chronic Problems Chronic back pain (Chronic) Asthma (Chronic) HTN (hypertension) (Chronic) COPD (chronic obstructive pulmonary disease) (Chronic) - Past Surgical History Surgical History: appendectomy, cholecystectomy, hysterectomy, - - Hysterectomy, right knee arthroscopic surgery, left shoulder rotator cuff tear intervention, hernia repair, left total knee replacement, left knee arthroscopic surgery, right knee replacement, back surgery, left total hip arthroplasty, right total hip arthroplasty, appendectomy. - Social History Smoking Status: Never smoker - Family History Maternal History Items: COPD Paternal History Items: COPD, Heart Disease, Hypertension Review of Systems Constitutional: Reports: Anorexia, Fever, Malaise, Weakness, Fatigue. Denies: Chills Eyes: Denies: Vision Change HEENT: Reports: Head Aches, Sore Throat Cardiovascular: Denies: Chest Pain, Orthopnea, Palpitations, Syncope Respiratory: Denies: Cough, Shortness of Breath Gastrointestinal: Reports: Diarrhea. Denies: Abdominal Pain, Constipation, Nausea, Vomiting Genitourinary: Denies: Dysuria Musculoskeletal: Reports: Back Pain - On chronic pain medications. Denies: Joint stiffness, Joint swelling Skin: Denies: Rash Neurological: Denies: Balance problems Hematologic/ Lymphatic: Reports: Anemia. Denies: Hx of blood clot Patient Problems: Active and Suspected Problems Cellulitis (Acute) Altered mental status, unspecified (Acute) Sepsis affecting skin (Acute) Acute encephalopathy (Acute) - Physical Exam General: Alert, Oriented x3, Cooperative, No apparent distress HEENT: PERRLA, EOMI Oral: Dry Mucosa Neck: Supple Lungs: Clear to auscultation Cardiovascular: Regular rate Abdomen: Bowel Sounds Present, Soft, Non Tender, Non-Distended, Obese Extremities: No edema Skin: No rashes Musculoskeletal: No Muscle Wasting Lymphatic: No Cervical, Supraclavicular, or Inguinal Adenopathy Neurological: Cranial nerves II-XII grossly intact Psych/Mental Status: Flat Affect, Depressed, Alert and oriented to time, place, person, mood and affect Vital Signs Temp Pulse Resp BP Pulse Ox 99.8 F H 89 22 H 148/65 H 94 11/30/17 11:40 11/30/17 11:44 11/30/17 11:44 11/30/17 11:40 11/30/17 11:44 Oxygen Flow Rate (L/min) 2 Oxygen Delivery Method Nasal Cannula Weight: 79.8 kg Body Mass Index (BMI) 32.1 Intake and Output for Last 24 Hours Intake Total 297 / 297 Balance 297 / 297 Microbiology Past 72 Hours 11/29/17 19:25 Blood Culture - Preliminary Blood Culture (Wb) - Venous Laboratory Tests Past 24 Hrs WBC 10.7 RBC 3.46 L Hgb 9.8 L Hct 29.7 L MCV 85.8 MCH 28.3 MCHC 33.0 WBC 8.5 RBC 3.66 L Hgb 10.1 L Hct 31.2 L MCV 85.2 MCH 27.6 Clinical Impression(s) from Imaging Studies Chest X-Ray 11/29/17 19:05 IMPRESSION: Mild cardiomegaly. No acute airspace disease. Electronically Signed: Javier Cordero DO at 20:01 EDT Tel , Service support , Brain CT 11/29/17 19:07 IMPRESSION: No acute intracranial pathology. Paranasal sinus disease. No change from yesterday. Electronically Signed: Javier Cordero DO at 20:00 EDT Tel , Service support , Assessment/Plan All Active Problems Cellulitis (Acute) Altered mental status, unspecified (Acute) Sepsis affecting skin (Acute) Acute encephalopathy (Acute) Hip pain, right (Acute) Acute back pain (Acute) 1. Proteinuria of unclear etiology. She has no history of diabetes. She is anemic. Will check protein electrophoresis and LORA. Will check [facility] records to see if she had prior urinalysis with protein. She has chronic pain but denies history of NSAID use. I would consider in my differential minimal change disease from NSAID use if she does have a history of chronic use for her chronic pain management. We will send off serology, NICKIE with reflex 2. Sepsis with lethargy. Fever persists. MRSA positive on blood culture. Currently on IV antibiotic therapy managed by primary care service. 3. Hypertension on blood pressure medications managed by primary service. 4. Chronic pain management. Patient denies use of NSAIDs 5. Generalized weakness and lethargy. Check CPK level. 12/04/17 1840 <Electronically signed by Ann-Marie Akhtar DO> Date Ann-Marie Akhtar DO Cosigner Signature (if applicable): Date CC: Tayla Brown MD; Ann-Marie Akhtar DO; Tony Dey MD; Elkin Wood MD; Logan Pandey MD Signed Observed: 12/04/2017 Status: F Source: [facility] CULTURE, BLOOD (WB) 1:28 PM [facility] REPOSITORY BC No growth in 5 days. Performed By: #### M200.1000 #### [facility] [address] [place], [address] CBC-COMPLETE BLOOD CNT Collected: 12/04/2017 Status: F Source: [facility] NO DIFF 5:25 AM [facility] REPOSITORY TYPE CODE TESTS RESULT OUT OF RANGE REFERENCE UNITS LAB L100.1000 4.4-11.0 K/mm3 High WBC 11.4 LAB L100.1200 4.2-5.4 M/mm3 Low RBC 3.19 LAB L100.1300 12.0-15.0 g/dl Low HGB 8.8 LAB L100.1400 37-47 % Low HCT 27.2 LAB L100.1500 81-99 fL Normal MCV 85.3 LAB L100.1600 27.0-32.0 pg Normal MCH 27.6 LAB L100.1700 32-36 g/gl Normal MCHC 32.4 LAB L100.1810 11.6-14.6 % Normal RDW CV 14.4 LAB L100.1820 35.1-43.9 fl Normal RDW SD 43.5 LAB L100.1900 150-450 K/mm3 Normal PLT 195 LAB L100.2000 6.2-12.0 fl Normal MPV 10.6 Performed By: #### L100.0500 #### [facility] [address] [place], [address] BASIC METABOLIC Collected: 12/04/2017 Status: F Source: [facility] PROFILE (BMP) 5:25 AM [facility] REPOSITORY TYPE CODE TESTS RESULT OUT OF RANGE REFERENCE UNITS LAB L501.0100 74-106 mg/dL High GLU 132 Result Comment: Fasting Glucose result greater than or equal to 126 mg/dL suggests DIABETES MELLITUS per A.D.A. criteria. Please note revised GLUCOSE reference range effective 2017. LAB L501.1000 7-18 mg/dL Normal BUN 15 LAB L501.1100 0.55-1.02 mg/dL Normal CREAT,SERUM 0.55 Result Comment: The validity of the calculated GFR AND GFRAA in patients over 70 years has not been determined. Clinical correlation is essential. LAB L501.1110 >60 mL/min Normal EST GFR 117 Result Comment: Non- GFR Calc LAB L501.1115 >60 mL/min Normal EST GFR - AA 141 Result Comment: GFR Calc LAB L501.1255 ml/min Normal Estimated CRCL 40.81 LAB L501.1300 10-20 RATIO High BUN/CRE 27.5 LAB L501.2200 8.5-10 mg/dL Low .1 CA 7.5 LAB L501.5300 136-14 mmol/L Low 5 NA 134 LAB L501.5600 3.5-5. mmol/L Low 1 K 3.2 LAB L501.5900 98-107 mmol/L Low CL 97 LAB L501.6100 21.0-3 mmol/L Normal 2.0 CO2 30.0 LAB L501.6200 5-15 Normal GAP 7 Performed By: #### L500.2500 #### [facility] [address] [place], [address] CPK TOTAL, CREATINE Collected: 12/04/2017 Status: F Source: [facility] KINASE 5:25 AM [facility] REPOSITORY Order Comment: Comments: add on to am labs, please TYPE CODE TESTS RESULT OUT OF RANGE REFERENCE UNITS LAB L501.3620 26-192 U/L Low CPK TOTAL 20 Performed By: #### L501.3620 #### [facility] [address] [place], [address] CHEST 1 VIEW Observed: 12/03/2017 Status: F Source: [facility] (PORTABLE) 12:56 PM [facility] REPOSITORY [facility] Imaging Services [address] [place] [address] Chest 1 View (Portable) MR#: [id number] Acct: [id number] Name: STEPHIE UGARTE Rep #: [id number] : 1945 F 72 From: Fred Murray MD PCP: Elkin Wood MD Status: ADM IN Study: Chest 1 View (Portable) Date of Exam: 12/03/17 Exam# [id number] Ordering Dr: José Perez MD STUDY: X-RAY CHEST REASON FOR EXAM: Female, 72 years old. Shortness of breath TECHNIQUE: AP COMPARISON: 11/29/2017 FINDINGS: Central pulmonary vascular congestion and perihilar/basilar interstitial densities are new since the prior study. No sizable pleural effusion. There is mild cardiac enlargement. Normal mediastinum and awilda. Normal visualized pulmonary arteries. There is atherosclerotic calcification of the aortic arch with tortuosity. Neurostimulator leads have been removed. There are surgical clips projecting over the upper abdomen. Normal visualized ribs, clavicles, and shoulders. There is no demonstrated abnormality of the visualized soft tissue structures of the upper abdomen. RAD/Chest 1 View (Portable) IMPRESSION: Mild interstitial edema. No sizable effusion. Electronically Signed: Fred Murray MD at 15:38 EDT , Service support , CC: José Perez MD; Elkin Wood MD Program Schedule Clerk: Signed ECHO TRANSESOPHAGEAL (MOSES) Observed: 12/03/2017 Status: F Source: [place] 12:45 PM [facility] REPOSITORY [facility] Cardiovascular Services [address] [place] [address] Echo Transesophageal (MOSES) 12/03/17 0806 MR#: [id number] Acct: [id number] Name: STEPHIE UGARTE Rep #: [id number] : 1945 72 From: Rosalio Stoddard MD Attending Dr: José Perez MD Status: ADM IN Ordering Dr: José Perez MD Date: 12/02/17 Location: [facility] Sex: F C Admitted: 11/29/17 Reason For Study: BACTEREMIA, EMBOLI Medication MOSES probe passed with minimal difficulty. No complications were noted. T[place]x Topical Greig given X3 metered doses orally. Versed 1 mg given slow IVP. Fentanyl 50 mcg given slow IVP. Performed a rapid injection of agitated mix of 9 cc saline and 1cc air to assess for atrial septal defect. Left Ventricle Normal LV size. Left ventricular systolic function is normal. The estimated ejection fraction is 65 %. No regional wall motion abnormalities noted. Right Ventricle Normal size and thickness. Normal systolic function. Atria No doppler evidence for ASD. Bubble contrast study negative for right to left interatrial shunt. Normal left atrium. There is no sponatenous contrast in the left atrium. No thrombus is detected in the left atrial appendage. Normal right atrium. There is no sponatenous contrast in the right atrium. No RA / appendage thrombus identified. Mitral Valve There is no mitral annular calcification. Mild diffuse mitral valve thickening. The mitral papillary muscle appears thickened and/or calcified. Trivial mitral valve insufficiency. Tricuspid Valve Mild diffuse thickening of the tricuspid valve. Myxomatous appearing tricuspid valve. 2D echocardiographic findings c/w redundant chordae tendonae. Mild tricuspid valve insufficiency. Aortic Valve Trisinus/trileaflet aortic valve. Normal aortic valve. Pulmonic Valve The pulmonic valve is not well visualized. Trivial pulmonic valve insufficiency. Vessels Normal appearing thoracic aorta. Pericardium No pericardial effusion. Echolucency c/w a pleural effusion. Interpretation Summary Left ventricular systolic function is normal. The estimated ejection fraction is 65 %. There is no sponatenous contrast in the left atrium. No thrombus is detected in the left atrial appendage. Mild diffuse mitral valve thickening. The mitral papillary muscle appears thickened and/or calcified. Trivial mitral valve insufficiency. Mild diffuse thickening of the tricuspid valve. Myxomatous appearing tricuspid valve. 2D echocardiographic findings c/w redundant chordae tendonae. Mild tricuspid valve insufficiency. Trivial pulmonic valve insufficiency. Echolucency c/w a pleural effusion. Bubble contrast study negative for right to left interatrial shunt. Normal appearing thoracic aorta. Ordering Physician: José Perez Referring Physician: Tony Dey Performed By: Kira Mills, RDCS 12/03/175 Date Rosalio Stoddard MD CC: José Perez MD; Tony Dey MD; Elkin Wood MD Date Dictated: 12/03/1706 Date Transcribed: 12/03/171244 Program Schedule Clerk: Signed Observed: 12/03/2017 Status: F Source: [facility] CULTURE, BLOOD (WB) 11:35 AM [facility] REPOSITORY GRAM STAIN = GRAM POSITIVE COCCI CLUSTERS RESULTS CALLED TO A SELF 12/04/17 1355 Alyssa García. REPORT READ BACK BY AMBROSIO. PROBABLE MRSA SEE 3805 FOR SENSITIVITY RESULTS Copy of report sent to Infection Control Printer [id number] 12/05/17 4348 [facility]. ORGANISM 1: Staphylococcus aureus Amount Growth Growth Performed By: #### M200.1000 #### [facility] [place], [address] CBC-COMPLETE BLOOD CNT Collected: 12/03/2017 Status: F Source: [facility] NO DIFF 5:22 AM [facility] REPOSITORY TYPE CODE TESTS RESULT OUT OF RANGE REFERENCE UNITS LAB L100.1000 4.4-11.0 K/mm3 High WBC 11.7 LAB L100.1200 4.2-5.4 M/mm3 Low RBC 3.24 LAB L100.1300 12.0-15.0 g/dl Low HGB 9.0 LAB L100.1400 37-47 % Low HCT 27.8 LAB L100.1500 81-99 fL Normal MCV 85.8 LAB L100.1600 27.0-32.0 pg Normal MCH 27.8 LAB L100.1700 32-36 g/gl Normal MCHC 32.4 LAB L100.1810 11.6-14.6 % Normal RDW CV 14.5 LAB L100.1820 35.1-43.9 fl Normal RDW SD 43.9 LAB L100.1900 150-450 K/mm3 Normal PLT 188 LAB L100.2000 6.2-12.0 fl Normal MPV 10.7 Performed By: #### L100.0500 #### [facility] [address] [place], [address] BASIC METABOLIC Collected: 12/03/2017 Status: F Source: [place] PROFILE (BMP) 5:22 AM [facility] REPOSITORY TYPE CODE TESTS RESULT OUT OF RANGE REFERENCE UNITS LAB L501.0100 74-106 mg/dL Normal GLU 106 Result Comment: Fasting Glucose result from 100 to 125 mg/dL suggests IMPAIRED HOMEOSTASIS per A.D.A. criteria. Please note revised GLUCOSE reference range effective 2017. LAB L501.1000 7-18 mg/dL Normal BUN 17 LAB L501.1100 0.55-1.02 mg/dL Low CREAT,SERUM 0.52 Result Comment: The validity of the calculated GFR AND GFRAA in patients over 70 years has not been determined. Clinical correlation is essential. LAB L501.1110 >60 mL/min Normal EST GFR 122 Result Comment: Non- GFR Calc LAB L501.1115 >60 mL/min Normal EST GFR - AA 148 Result Comment: GFR Calc LAB L501.1255 ml/min Normal Estimated CRCL 40.81 LAB L501.1300 10-20 RATIO High BUN/CRE 32.4 LAB L501.2200 8.5-10 mg/dL Low .1 CA 7.6 LAB L501.5300 136-14 mmol/L Normal 5 NA 136 LAB L501.5600 3.5-5. mmol/L Low 1 K 3.0 LAB L501.5900 98-107 mmol/L Low CL 97 LAB L501.6100 21.0-3 mmol/L Normal 2.0 CO2 30.0 LAB L501.6200 5-15 Normal GAP 9 Performed By: #### L500.2500 #### [facility] [address] [place], [address] XR OUTSIDE CD DICOM Observed: 12/03/2017 Status: F Source: [facility] -NBNR 12:00 AM [facility] REPOSITORY Images were obtained outside of [facility] [id number] ABDOMEN/PELVIS WITHOUT Observed: 12/02/2017 Status: F Source: [place] CONT 10:49 AM [facility] REPOSITORY [facility] Imaging Services [address] [place] [address] Abdomen/Pelvis without Cont MR#: [id number] Acct: [id number] Name: STEPHIE UGARTE Rep #: [id number] : 1945 F 72 From: Alpa Montgomery MD PCP: Elkin Wood MD Status: ADM IN Study: Abdomen/Pelvis without Cont Date of Exam: 12/02/17 Exam# [id number] Ordering Dr: oLgan Pandey MD STUDY: CT ABDOMEN AND PELVIS WITHOUT CONTRAST REASON FOR EXAM: Female, 72 years old. Recent removal of spinal stimulator due to MRSA. RADIATION DOSAGE (If Supplied By Facility): CTDIvol = ( 17.38 ) mGy, DLP = ( 848.23 ) mGycm TECHNIQUE: Transaxial images were obtained from the dome of the diaphragm to the symphysis pubis without oral contrast, and without intravenous contrast. Sagittal and coronal images were reconstructed. Individualized dose optimization techniques were used for this CT. COMPARISON: CT pelvis 03/25/2017, CT abdomen and pelvis 06/19/2009 FINDINGS: Body wall soft tissues: Subcu kidneys fat, right upper buttock, postsurgical changes, stable line, area of induration measuring approximately 5.7 x 4.4 x 6.1 cm most consistent with residual edema/small hematoma without organized fluid collection. Postsurgical changes in the midline overlying the lumbosacral junction, small amount of gas in the subcutaneous fat superficial to the spinous process. Small area of induration that is likely a small hematoma/seroma, immediately deep to the surgical staple line. This area of induration measures approximately 5.9 cm craniocaudal, 2.8 cm anterior- posterior, and 3.6 cm is. There is mild bilateral flank edema. Osseous structures: No acute osseous process. Multilevel low lumbar laminectomy L3-S1 with posterior bonny and pedicle screw fixation. Surgical construct intact. Inferior chest: Moderate bilateral layering pleural effusions with prominent bibasilar atelectasis. Moderate coronary Madeley without pericardial effusion. Normal distal esophagus. Hepatobiliary: Normal. Pancreas: No acute process. Spleen: Normal. Adrenal glands: Normal. Urogenital: No acute process. Pelvic floor and sidewalls and retroperitoneum: No mass or adenopathy. Vasculature: No acute process. Stomach: No acute process. Small bowel and mesentery: No acute process. Large bowel: No acute process. Free fluid or free air: None. CT/Abdomen/Pelvis without Cont IMPRESSION: No acute intra-abdominal process is evident. Soft tissue edema/induration and small seroma/hematoma at the thoracolumbar operative site, and of the right buttock operative site, within the subcutaneous fat. There is no evidence of organized abscess. Moderately large bilateral pleural effusions with prominent bibasilar atelectasis. Electronically Signed: Alpa Montgomery, at 14:12 EDT Tel , Service support , CC: Elkin Wood MD; Logan Pandey MD Program Schedule Clerk: Signed Observed: 12/02/2017 Status: F Source: [place] CULTURE, BLOOD (WB) 9:44 AM [facility] REPOSITORY AEROBIC BOTTLE GRAM STAIN = GRAM POSITIVE COCCI RESULTS [facility] 12/03/17 0451 Shruthi Arauz. REPORT READ BACK BY SAME. Copy of report sent to Infection Control Printer MS#[id number] 12/05/17 0709 [facility]. ORGANISM 1: Meth. resistant Staph. aureus Amount Growth Growth Meth. resistant Staph. aureus: REACTION Benzylpenicillin NF >=0.5 R Cefoxitin *NF + Clindamycin $$ <=0.25 S Inducable Clindamycin Resistan - Erythromycin $ <=0.25 S Gentamicin $ <=0.5 S Levofloxacin $ 0.25 S Linezolid $$$$ 2 S Oxacillin NF >=4 R Tigecycline $$$$ <=0.12 S Rifampin $$ <=0.5 S Tetracycline NF <=1 S Trimethoprim/Sulfametho $ <=10 S Vancomycin $ 1 S (NF) indicates non-formulary drug at [facility]. Approval by Infectious Disease Specialist required before non-formulary drugs may be ordered and/or dispensed. * CLSI guidelines does not recommend testing of cephalosporins. This interpretation is deduced from Beta-lactam/penicillin results. Performed By: #### M200.1000 #### [facility] [address] [place], [place], [address] CBC-COMPLETE BLOOD CNT Collected: 12/02/2017 Status: F Source: [place] NO DIFF 7:58 AM [facility] REPOSITORY TYPE CODE TESTS RESULT OUT OF RANGE REFERENCE UNITS LAB L100.1000 4.4-11.0 K/mm3 High WBC 12.1 LAB L100.1200 4.2-5.4 M/mm3 Low RBC 3.35 LAB L100.1300 12.0-15.0 g/dl Low HGB 9.2 LAB L100.1400 37-47 % Low HCT 28.4 LAB L100.1500 81-99 fL Normal MCV 84.8 LAB L100.1600 27.0-32.0 pg Normal MCH 27.5 LAB L100.1700 32-36 g/gl Normal MCHC 32.4 LAB L100.1810 11.6-14.6 % High RDW CV 14.7 LAB L100.1820 35.1-43.9 fl High RDW SD 46.2 LAB L100.1900 150-450 K/mm3 Normal PLT 194 LAB L100.2000 6.2-12.0 fl Normal MPV 9.9 Performed By: #### L100.0500 #### [facility] [address] [place], [place], [address] BASIC METABOLIC Collected: 12/02/2017 Status: F Source: [place] PROFILE (BMP) 7:58 AM [facility] REPOSITORY TYPE CODE TESTS RESULT OUT OF RANGE REFERENCE UNITS LAB L501.0100 74-106 mg/dL High GLU 112 Result Comment: Fasting Glucose result from 100 to 125 mg/dL suggests IMPAIRED HOMEOSTASIS per A.D.A. criteria. Please note revised GLUCOSE reference range effective 2017. LAB L501.1000 7-18 mg/dL Normal BUN 18 LAB L501.1100 0.55-1.02 mg/dL Normal CREAT,SERUM 0.63 Result Comment: The validity of the calculated GFR AND GFRAA in patients over 70 years has not been determined. Clinical correlation is essential. LAB L501.1110 >60 mL/min Normal EST GFR 99 Result Comment: Non- GFR Calc LAB L501.1115 >60 mL/min Normal EST GFR - AA 120 Result Comment: GFR Calc LAB L501.1255 ml/min Normal Estimated CRCL 40.81 LAB L501.1300 10-20 RATIO High BUN/CRE 28.5 LAB L501.2200 8.5-10 mg/dL Low .1 CA 7.5 LAB L501.5300 136-14 mmol/L Low 5 NA 133 LAB L501.5600 3.5-5. mmol/L Low 1 K 3.4 LAB L501.5900 98-107 mmol/L Normal CL 100 LAB L501.6100 21.0-3 mmol/L Normal 2.0 CO2 28.0 LAB L501.6200 5-15 Normal GAP 5 Performed By: #### L500.2500, L501.5200 #### [facility] [address] [place], [address] MAGNESIUM Collected: 12/02/2017 Status: F Source: [place] 7:58 AM [facility] REPOSITORY TYPE CODE TESTS RESULT OUT OF RANGE REFERENCE UNITS LAB L501.5200 1.6-2.6 mg/dL Normal MG 1.9 Performed By: #### L500.2500, L501.5200 #### [facility] [address] [place], [address] CT OUTSIDE CD DICOM Observed: 12/02/2017 Status: F Source: [facility] -NR 12:[address] [facility] REPOSITORY Images were obtained outside of [facility] [id number] VANCOMYCIN, TROUGH Collected: 12/01/2017 Status: F Source: [place] LEVEL 5:50 PM [facility] REPOSITORY Order Comment: Comments: Draw 30 min prior to vanco dose due at 1830. Time Medication is to be Given? 1830 TYPE CODE TESTS RESULT OUT OF RANGE REFERENCE UNITS LAB L501.8820 5.0-15.0 ug/mL Normal VANCO, TROUGH 7.6 Result Comment: VANCOMYCIN STANDARED DRUG THERAPY TROUGH LEVEL: 5.0 - 15.0 mg/L VANCOMYCIN HIGH INTENSITY THERAPY TROUGH LEVEL: 15.0 - 20.0 mg/L High Intensity therapy recommended for serious life threatening infections include: - Meningitis -Endocarditis -Pneumonia (Ventilator/Healtcare Associated) -Sepsis PLEASE CONTACT PHARMACY SERVICES (#[phone]) FOR INTERPRETATION OF RESULTS. Performed By: #### L501.8820 #### [facility] [address] [place], [address] ECHOCARDIOGRAM COMPLETE Observed: 12/01/2017 Status: F Source: [place] 2:52 PM [facility] REPOSITORY [facility] Cardiovascular Services [address] [place] [address] Echo Complete 12/01/17 0905 MR#: [id number] Acct: [id number] Name: STEPHIE UGARTE Rep #: [id number] : 1945 72 From: Rosalio Stoddard MD Attending Dr: José Perez MD Status: ADM IN Ordering Dr: Logan Pandey MD Date: 11/30/17 Location: [facility] Sex: F C Admitted: 11/29/17 Reason For Study: Murmur Procedure This was a 2D Doppler, Color Flow transthoracic echocardiogram. Unable to utilize Definity due to no IV access. The study was technically difficult. Exam performed portable in patient room. Left Ventricle Normal LV size. Left ventricular systolic function is normal. The estimated ejection fraction is 70 %. There is evidence of diastolic dysfunction. No regional wall motion abnormalities noted. Right Ventricle Normal RV size. Normal systolic function. Atria Normal left atrium. Normal right atrium. No doppler evidence for ASD. Mitral Valve There is mild mitral annular calcification. Normal mitral valve. Trivial mitral valve insufficiency. Tricuspid Valve Normal tricuspid valve. Trivial tricuspid valve insufficiency. Right ventricular systolic pressure estimated to be 35 mmHg. Aortic Valve Trisinus/trileaflet aortic valve. Normal aortic valve. Pulmonic Valve The pulmonic valve is not well visualized. Trivial pulmonic valve insufficiency. Great Vessels Normal sized aortic root. Pericardium/Pleural No pericardial effusion. MMode/2D Measurements AND Calculations LVIDd: 4.4 cm IVSd: 0.94 cm LVOT diam: 2.0 cm LVIDs: 2.5 cm LVPWd: 0.90 cm LVOT area: 3.1 cm2 FS: 44.8 % Ao root diam: 3.0 cm LAV(MOD-bp): 61.6 ml LA A4 area: 18.8 cm2 LA dimension: 3.2 cm LAV(MOD-bp) Indexed: 34.1 ml/m2 LAV(MOD-sp2): 65.2 ml LAV(MOD-sp4): 49.3 ml RA A4 area: 16.0 cm2 Time Measurements MV dec time: 0.26 sec Doppler Measurements AND Calculations MV E max roshan: 79.8 cm/sec Lat Peak E' Roshan: 7.9 cm/sec Med Peak E' Roshan: 8.3 cm/sec MV A max roshan: 115.5 cm/sec E/E' lat: 10.1 E/E' med: 9.7 MV E/A: 0.69 MV V2 max: 143.5 cm/sec MV P1/2t max roshna: 116.5 cm/sec Ao V2 max: 129.0 cm/sec MV max P.3 mmHg MV P1/2t: 71.3 msec Ao max P.7 mmHg MV V2 mean: 79.9 cm/sec MV dec slope: 478.9 cm/sec2 Ao V2 mean: 86.6 cm/sec MV mean P.0 mmHg MVA(P1/2t): 3.1 cm2 Ao mean P.5 mmHg MV V2 VTI: 37.8 cm Ao V2 VTI: 26.3 cm MVA(VTI): 1.6 cm2 ROSINA(I,D): 2.3 cm2 ROSINA(V,D): 2.5 cm2 LV V1 max: 104.6 cm/sec SV(LVOT): 60.5 ml PA V2 max: 116.5 cm/sec LV V1 max P.4 mmHg LV V1 mean P.9 mmHg LV V1 mean: 61.8 cm/sec LV V1 VTI: 19.3 cm TR max roshan: 280.7 cm/sec TR max P.5 mmHg Interpretation Summary The study was technically difficult. Left ventricular systolic function is normal. The estimated ejection fraction is 70 %. There is mild mitral annular calcification. Trivial mitral valve insufficiency. Trivial tricuspid valve insufficiency. Trivial pulmonic valve insufficiency. Right ventricular systolic pressure estimated to be 35 mmHg. There is evidence of diastolic dysfunction. Ordering Physician: Logan Pandey Referring Physician: Tony Dey Performed By: Brandon Buckner RCS 12/01/171451 Date Rosalio Stoddard MD CC: José Perez MD; Tony Dey MD; Elkin Wood MD; Logan Pandey MD Date Dictated: 12/01/17904 Date Transcribed: 12/01/171451 Program Schedule Clerk: Signed LACTIC ACID Collected: 12/01/2017 Status: F Source: [place] 11:20 AM [facility] REPOSITORY Order Comment: Yes/No query for Sepsis Lactate Rule Y TYPE CODE TESTS RESULT OUT OF RANGE REFERENCE UNITS LAB L503.6005 0.4-2.0 mmol/L Normal LACTIC ACID 1.0 Performed By: #### L503.6005 #### [facility] [address] [place] [address]. [place], [address] Observed: 12/01/2017 Status: F Source: [place] CULTURE, BLOOD (WB) 11:20 AM [facility] REPOSITORY AEROBIC BOTTLE GRAM STAIN= GRAM POSITIVE COCCI IN CLUSTERS RESULTS CALLED TO [facility]IN[facility] WONG [facility] 12/02/17 0222 Anahi Correa.REPORT READ BACK BY SAME. SEE [id number] FOR SENSITIVITY PANEL. PROBABLE MRSA No anaerobic bacteria isolated. ORGANISM 1: Staphylococcus aureus Amount Growth Growth Performed By: #### M200.1000 #### [facility] [address] [place] [address]. [place], [address] BRAIN/HEAD WITHOUT Observed: 12/01/2017 Status: F Source: [place] CONTRAST 8:31 AM [facility] REPOSITORY [facility] Imaging Services [address] [place] [address] Brain/Head without Contrast MR#: [id number] Acct: [id number] Name: STEPHIE UGARTE Rep #: [id number] : 1945 F 72 From: Wil Vazquez MD PCP: Elkin Wood MD Status: ADM IN Study: Brain/Head without Contrast Date of Exam: 12/01/17 Exam# [id number] Ordering Dr: José Perez MD STUDY: CT BRAIN WITHOUT CONTRAST REASON FOR EXAM: Female, 72 years old. Confusion. Pain pump removed. Sepsis. MRSA infection. RADIATION DOSAGE (If Supplied By Facility): CTDIvol = ( 60.81 ) mGy, DLP = ( 1021.47 ) mGycm TECHNIQUE: Transaxial CT imaging of the brain was performed without administration of intravenous contrast material. Coronal and sagittal reconstructions were performed. Individualized dose optimization techniques were used for this CT. COMPARISON: CT head without contrast 11/29/2017. FINDINGS: Normal soft tissue structures. Normal calvarium. Normal size ventricles and extra-axial spaces for the patient's age. Normal white matter tracts of the cerebral hemispheres. Normal basal ganglia and thalami. Normal brainstem. Normal cerebellum. There is no intracranial hemorrhage. There are no findings of an acute ischemic infarction. Sclerotic thickening with complete opacification of the right maxillary sinus. Minimal mucosal thickening of the left maxillary sinus. Ovoid density in the left nostril is suspicious for polyp. CT/Brain/Head without Contrast IMPRESSION: 1. No CT evidence of intracranial bleeding, acute ischemic infarct or acute intracranial abnormality. 2. Suspicious left nasal polyp. 3. Pronounced chronic right maxillary sinusitis and minimal mucosal thickening in the left maxillary sinus. 4. No significant interval change when compared to 11/29/2017. Electronically Signed: Wil Vazquez MD at 10:34 EDT , Service support , CC: José Perez MD; Elkin Wood MD Program Schedule Clerk: Signed ABDOMEN SINGLE VIEW Observed: 12/01/2017 Status: F Source: [place] 8:24 AM [facility] REPOSITORY [facility] [place] [address] Abdomen Single View MR#: [id number] Acct: [id number] Name: STEPHIE UGARTE Rep #: [id number] : 1945 F 72 From: Wil Vazquez MD PCP: Elkin Wood MD Status: ADM IN Study: Abdomen Single View Date of Exam: 12/01/17 Exam# [id number] Ordering Dr: José Perez MD STUDY: X-RAY - ABDOMEN/PELVIS REASON FOR EXAM: Female, 72 years old. Spinal cord stimulator removed one day ago. Clearance for MRI. TECHNIQUE: AP supine view. COMPARISON: None. FINDINGS: Bibasilar fibrosis, left greater than right. There is an unremarkable bowel gas pattern. There is no demonstrated free abdominal air. The visualized liver, spleen and kidneys are grossly normal in size and morphology. Surgical justina overlying the right side of T11 down to L1 vertebral bodies. Surgical justina overlying the right iliac bone. No radiopaque stimulator foreign body in the thoracic spine or lumbar spine. Pedicular screws and rods at L3 down to S1. Postsurgical absence of the spinous processes and lamina from L3 down to L5. RAD/Abdomen Single View IMPRESSION: No radiopaque stimulator foreign-body in the thoracolumbar spine. Patient is cleared for MRI. Electronically Signed: Wil Vazquez MD at 9:13 EDT , Service support , CC: José Perez MD; Elkin Wood MD Program Schedule Clerk: Signed XR OUTSIDE CD DICOM Observed: 12/01/2017 Status: F Source: [facility] -NBNR 12:00 AM [facility] REPOSITORY Images were obtained outside of [facility] [id number] CT OUTSIDE CD DICOM Observed: 12/01/2017 Status: F Source: [facility] -NBNR 12:00 AM [facility] REPOSITORY Images were obtained outside of [facility] [id number] MR OUTSIDE CD DICOM Observed: 12/01/2017 Status: F Source: [facility] -NBNR 12:00 AM [facility] REPOSITORY Images were obtained outside of [facility] [id number] MRSA WOUND DNA BY Collected: 11/30/2017 Status: F Source: [place] PCR 4:20 PM [facility] REPOSITORY Order Comment: RESULTS CALLED TO [facility] 11/30/17 1844 Mikayla Lowry. REPORT READ BACK BY SAME. Comments: COLLECTED IN OR GLUTEAL REGION INCISION OF STIM Specimen Source? INCISION OF GLUTEAL REGION SPINAL CORD STIM TYPE CODE TESTS RESULT OUT OF REFERENCE UNITS RANGE LAB L8200.1100 Negative High MRSA POSITIVE RESULT LAB L8200.1150 Negative High SA RESULT POSITIVE Performed By: #### L8200.1075 #### [facility] [address] [place], [place], [address] Observed: 11/30/2017 Status: F Source: [place] CULTURE, DEEP WOUND 4:20 PM [facility] REPOSITORY Order Date: 09/24/16 Comments: COLLECTED IN OR GLUTEAL REGION INCISION OF STIM Gram Stain Gram Stain 3+ Gram positive cocci 1+ White Blood Cells No Epithelial cells Wound Culture ORGANISM 1: Meth. resistant Staph. aureus Amount Growth 3+ Meth. resistant Staph. aureus: REACTION Benzylpenicillin NF >=0.5 R Cefoxitin *NF + Clindamycin $$ <=0.25 S Inducable Clindamycin Resistan - Erythromycin $ <=0.25 S Gentamicin $ <=0.5 S Levofloxacin $ <=0.12 S Linezolid $$$$ 2 S Oxacillin NF >=4 R Tigecycline $$$$ <=0.12 S Rifampin $$ <=0.5 S Tetracycline NF <=1 S Trimethoprim/Sulfametho $ <=10 S Vancomycin $ <=0.5 S (NF) indicates non-formulary drug at [facility]. Approval by Infectious Disease Specialist required before non-formulary drugs may be ordered and/or dispensed. * CLSI guidelines does not recommend testing of cephalosporins. This interpretation is deduced from Beta-lactam/penicillin results. Cult, Anaerobic No anaerobic bacteria isolated. Performed By: #### M100.1500 #### [facility] [address], [address] MRSA WOUND DNA BY Collected: 11/30/2017 Status: F Source: [place] PCR 4:16 PM [facility] REPOSITORY Order Comment: Comments: COLLECTED IN OR 1614 BACK INCISION SPINAL CORD STI Specimen Source? BACK INCISION OF SPINAL CORD STIM TYPE CODE TESTS RESULT OUT OF REFERENCE UNITS RANGE LAB L8200.1100 Negative High MRSA POSITIVE RESULT LAB L8200.1150 Negative High SA RESULT POSITIVE Performed By: #### L8200.1075 #### [facility] [address] [place], [address] Observed: 11/30/2017 Status: F Source: [place] CULTURE, DEEP WOUND 4:16 PM [facility] REPOSITORY Order Date: 09/24/16 Comments: COLLECTED IN [place] 1614 BACK INCISION SPINAL CORD STI Gram Stain Gram Stain 2+ Gram positive cocci 1+ White Blood Cells No Epithelial cells Wound Culture ORGANISM 1: Meth. resistant Staph. aureus Amount Growth 3+ Meth. resistant Staph. aureus: REACTION Benzylpenicillin NF >=0.5 R Cefoxitin *NF + Clindamycin $$ <=0.25 S Inducable Clindamycin Resistan - Erythromycin $ 0.5 S Gentamicin $ <=0.5 S Levofloxacin $ 0.25 S Linezolid $$$$ 2 S Oxacillin NF >=4 R Tigecycline $$$$ <=0.12 S Rifampin $$ <=0.5 S Tetracycline NF <=1 S Trimethoprim/Sulfametho $ <=10 S Vancomycin $ 1 S (NF) indicates non-formulary drug at [facility]. Approval by Infectious Disease Specialist required before non-formulary drugs may be ordered and/or dispensed. * CLSI guidelines does not recommend testing of cephalosporins. This interpretation is deduced from Beta-lactam/penicillin results. Cult, Anaerobic No anaerobic bacteria isolated. Performed By: #### M100.1500 #### [facility] [address] [place], [address] BRAIN W/WO CONTRAST Observed: 11/30/2017 Status: F Source: [place] 3:08 PM [facility] REPOSITORY [facility] Imaging Services [address] [place] [address] Brain W/WO Contrast MR#: [id number] Acct: [id number] Name: STEPHIE UGARTE Rep #: [id number] : 1945 F 72 From: Wil Vazquez MD PCP: Elkin Wood MD Status: ADM IN Study: Brain W/WO Contrast Date of Exam: 12/01/17 Exam# [id number] Ordering Dr: Logan Pandey MD STUDY: MRI BRAIN WITH AND WITHOUT CONTRAST REASON FOR EXAM: Female, 72 years old. Confusion. Recent removal of spinal stimulator due to infection. TECHNIQUE: Standardized multiplanar fat and water weighted pulse sequences were obtained. 7 ml of Gadavist contrast material was administered intravenously for the contrast portion of the examination. COMPARISON: None. FINDINGS: Normal size of the ventricles and extra-axial spaces for the patient's age. Normal white matter tracts of the supratentorial brain. Normal bilateral basal ganglia. Normal thalami. There is no extra-axial fluid accumulation. Normal flow voids within the major intracranial circulation suggesting patency by spin echo criteria. Normal venous enhancement. There is no enhancing intra-axial or extra-axial abnormality. Normal sella turcica, pituitary gland, infundibular stalk, optic chiasm and hypothalamus. Normal tectal plate and pineal gland. Normal midbrain, ana and medulla. Normal cerebellum. Normal basal cisterns. Normal bilateral temporal bones. Normal bilateral internal auditory canals. No demonstrated orbital abnormality, within the constraints of a routine brain study. Normal visualized paranasal sinuses. Normal calvarium and skull base. Normal visualized soft tissue structures. Normal visualized upper cervical spine. MRI/Brain W/WO Contrast IMPRESSION: Normal unenhanced and enhanced MRI of the brain. Electronically Signed: Wil Vazquez MD at 12:34 EDT , Service support , CC: Elkin Wood MD; Logan Pandey MD Program Schedule Clerk: Signed CONSULTATION Observed: 11/30/2017 Status: F Source: [place] 3:06 PM [facility] REPOSITORY [facility] Medical Records Department [address] [place] [address] Consultation 11/30/17 1459 MR#: [id number] Acct: [id number] Name: XOCHITL UGARTE Rep #: [id number] : 1945 72 From: Logan Pandey MD PCP: Elkin Wood MD Status: ADM IN Y Location: [place]3 US057-0 Problem List (1) MRSA bacteremia Status: Acute Reason for Consult: bacteremia Consulted by: Dr. Perez History of Present Illness: The patient is a 72 year old F with spine stimulator placement 11/13/[address] Brown who presented 11/29 with 4-5 days of not feeling well, poor appetite, aches. Sx progressed with headache, generalized weakness, confusion, and fatigue. Went to ED, CT head done, given augmentin, sx continued to worsen, came back to ED and was admitted on vanc/zosyn. Mental status improved per daughter. Neph following. Stimulator removal planned. Also had recent cut on R leg but seems to have healed. ROS unobtainable due to mental status. - Medical History Past Medical History (Chronic Problems): Chronic Problems Chronic back pain (Chronic) Asthma (Chronic) HTN (hypertension) (Chronic) COPD (chronic obstructive pulmonary disease) (Chronic) Allergies/Adverse Reactions: Allergies No Known Allergies Allergy (Verified 11/29/17 18:30) Home Medications: Ambulatory Orders Medication Instructions Recorded - Social History SMOKING STATUS:: Never smoker Vital Signs Temp Pulse Resp BP Pulse Ox 99.8 F H 89 22 H 148/65 H 94 11/30/17 11:40 11/30/17 11:44 11/30/17 11:44 11/30/17 11:40 11/30/17 11:44 Oxygen Flow Rate (L/min) 2 Oxygen Delivery Method Nasal Cannula Weight: 79.8 kg Body Mass Index (BMI) 32.1 Microbiology Past 72 Hours 11/29/17 19:25 Blood Culture - Preliminary Blood Culture (Wb) - Venous Laboratory Tests Past 24 Hrs WBC RBC Hgb Hct MCV MCH WBC RBC Hgb Hct MCV MCH MCHC RDW RDW Differential Plt Count MPV Immature Gran % (Auto) WBC 8.5 RBC 3.66 L Hgb 10.1 L Hct 31.2 L MCV 85.2 MCH 27.6 MCHC 32.4 RDW 14.3 RDW Differential 43.9 Plt Count 212 - Other Studies Radiology: [] reviewed Other Studies: [] Route of nutrition/ use of supplements: [] Nutritional Intake: [] IV Site: [] Painting Catheter: [] - Physical Exam General: Oriented x3, No apparent distress, Lethargic, - - able to follow some commands HEENT: Atraumatic, PERRLA, EOMI Neck: Supple, No Nodes Lungs: Clear to auscultation, Normal air movement Cardiovascular: Regular rate, Regular Rhythm Abdomen: Soft, Non Tender, Non-Distended Extremities: Edema - mild BLE Skin: No rashes, - - no janeway/osler/splinter hemorrhages on hands or feet IV Site: Peripheral, without redness Musculoskeletal: No Tenderness to Palpation of Joints or Extremities Neurological: Cranial nerves II-XII grossly intact - Assessment/Plan Antibiotics: [] Assessment/Plan: [] Active and Suspected Problems Cellulitis (Acute) Altered mental status, unspecified (Acute) Sepsis affecting skin (Acute) Acute encephalopathy (Acute) MRSA bacteremia - concern for recent spine stimulator placement as source. Removal planned. Will repeat bcx and check TTE. Stop zosyn, continue vanc. Given headache and confusion with risk of septic emboli, will order brain mri once device has been removed. Will follow, thank you. 11/30/17 1506 <Electronically signed by Logan Pandey MD> Date Logan Pandey MD Cosigner Signature (if applicable): Date CC: Tayla Brown MD; Ann-Marie Akhtar DO; Tony Dey MD; Elkin Wood MD; Logan Pandey MD Signed 12 LEAD ELECTROCARDIOGRAM Observed: 11/30/2017 Status: F Source: [place] 2:17 PM [facility] REPOSITORY [facility] Cardiovascular Services [address] [place] [address] 12 Lead EKG 11/29/17 1916 MR#: [id number] Acct: [id number] Name: XOCHITL UGARTE Rep #: [id number] : 1945 72 From: Brennan Fuller MD Attending Dr: José Perez MD Status: ADM IN Ordering Dr: Kiko Marroquin DO Date: 11/29/17 Location: [place] Sex: F C Admitted: 11/29/17 Test Reason : GEN ILL Blood Pressure : / mmHG Vent. Rate : 091 BPM Atrial Rate : 091 BPM P-R Int : 136 ms QRS Dur : 100 ms QT Int : 358 ms P-R-T Axes : 027 078 026 degrees QTc Int : 440 ms Normal sinus rhythm Normal ECG Confirmed by PHOENIX RYAN, BRENNAN ([id number]), acquisition editor VARUN GRANT ([id number]) on 11/30/2017 2:16:41 PM Referred By: Tony Dey Confirmed By:BRENNAN FULLER MD 11/30/17 1416 Date Brennan Fuller MD CC: José Perez MD; Kiko Marroquin DO; Tony Dey MD; Elkin Wood MD Signed KIDNEY AND BLADDER Observed: 11/30/2017 Status: F Source: [place] 12:36 PM [facility] REPOSITORY [facility] Imaging Services [address] [place] [address] Kidney and Bladder MR#: [id number] Acct: [id number] Name: XOCHITL UGARTE Rep #: [id number] : 1945 F 72 From: Martha Enriquez MD PCP: Elkin Wood MD Status: ADM IN Study: Kidney and Bladder Date of Exam: 11/30/17 Exam# [id number] Ordering Dr: Ann-Marie Akhtar DO STUDY: RENAL ULTRASOUND - COMPLETE REASON FOR EXAM: Female, 72 years old. History of acute encephalopathy sepsis TECHNIQUE: Ultrasound evaluation of the kidneys was performed with real-time and static cohen-scale imaging. COMPARISON: June 19, 2012 CT scan abdomen and pelvis with history of diverticulitis. FINDINGS: RIGHT KIDNEY: Normal location of the right kidney, which is normal in size. The right kidney measures 11.8 x 4.4 x 4.0 cm. There is a normal cortex of the right kidney. The renal cortex measures 1.2 cm. There is no right renal mass or cyst. There is a 4 mm stone right kidney. There is no right hydronephrosis. DISTAL RIGHT URETER: There is non-visualization of the distal right ureter. There is no demonstrated right ureterovesical junction calculus. There is a visualized right ureteral jet. LEFT KIDNEY: Normal location of the left kidney, which is normal in size. The left kidney measures 0.8 x 5.2 x 4.9 cm. There is a normal cortex of the left kidney. The renal cortex measures 1.7 cm. There is no left renal mass or cyst. There are no left renal calculi. There is no left hydronephrosis. DISTAL LEFT URETER: There is non-visualization of the distal left ureter. There is no demonstrated left ureterovesical junction calculus. There is a visualized left ureteral jet. BLADDER: The distended bladder contains 207 mL of urine. An empty bladder volume is not provided. The wall measures 3 mm. The sagittal view shows a mildly lobulated appearance of the anterior aspect of the bladder from right to left there is a cystic outpouching suggesting a possible bladder diverticulum that may measure 1.8 x 1.4 cm. US/Kidney and Bladder IMPRESSION: 4 mm stone right kidney no evidence of hydronephrosis. Possible bladder diverticulum allowing for partial decompression. Electronically Signed: Martha Enriquez MD at 15:28 EDT Tel , Service support , CC: Ann-Marie Akhtar DO; Elkin Wood MD Program Schedule Clerk: Signed BASIC METABOLIC Collected: 11/30/2017 Status: F Source: [place] PROFILE (BMP) 6:35 AM [facility] REPOSITORY TYPE CODE TESTS RESULT OUT OF RANGE REFERENCE UNITS LAB L501.0100 74-106 mg/dL High GLU 119 Result Comment: Fasting Glucose result from 100 to 125 mg/dL suggests IMPAIRED HOMEOSTASIS per A.D.A. criteria. Please note revised GLUCOSE reference range effective 2017. LAB L501.1000 7-18 mg/dL High BUN 28 LAB L501.1100 0.55-1.02 mg/dL Normal CREAT,SERUM 0.82 Result Comment: The validity of the calculated GFR AND GFRAA in patients over 70 years has not been determined. Clinical correlation is essential. LAB L501.1110 >60 mL/min Normal EST GFR 73 Result Comment: Non- GFR Calc LAB L501.1115 >60 mL/min Normal EST GFR - AA 88 Result Comment: GFR Calc LAB L501.1255 ml/min Normal Estimated CRCL 49.77 LAB L501.1300 10-20 RATIO High BUN/CRE 34.1 LAB L501.2200 8.5-10 mg/dL Normal .1 CA 8.6 LAB L501.5300 136-14 mmol/L Normal 5 NA 137 LAB L501.5600 3.5-5. mmol/L Low 1 K 3.3 LAB L501.5900 98-107 mmol/L Normal CL 103 LAB L501.6100 21.0-3 mmol/L Normal 2.0 CO2 24.0 LAB L501.6200 5-15 Normal GAP 10 Performed By: #### L500.2500 #### [facility] [address] [place], [address] CBC W/DIFF, AUTOMATED Collected: 11/30/2017 Status: C Source: [place] 6:35 AM [facility] REPOSITORY TYPE CODE TESTS RESULT OUT OF RANGE REFERENCE UNITS LAB L100.1000 4.4-11.0 K/mm3 Normal WBC 8.5 LAB L100.1200 4.2-5.4 M/mm3 Low RBC 3.66 LAB L100.1300 12.0-15.0 g/dl Low HGB 10.1 LAB L100.1400 37-47 % Low HCT 31.2 LAB L100.1500 81-99 fL Normal MCV 85.2 LAB L100.1600 27.0-32.0 pg Normal MCH 27.6 LAB L100.1700 32-36 g/gl Normal MCHC 32.4 LAB L100.1810 11.6-14.6 % Normal RDW CV 14.3 LAB L100.1820 35.1-43.9 fl Normal RDW SD 43.9 LAB L100.1900 150-450 K/mm3 Normal PLT 212 LAB L100.2000 6.2-12.0 fl Normal MPV 9.7 LAB L100.3100 MANUAL DIFF Normal CELLS COUNTED 100 LAB L100.3200 47-70 % High 89 SEGS LAB L100.3500 0-0 High 1 MYELO LAB L100.3800 19-41 % Low 2 LYMPH LAB L100.3900 0-10 % 6 Normal MONOCYTE LAB L100.4100 0-1 % High 2 BASOPHIL LAB L100.4800 3+ Normal TOXIC GRAN LAB L100.5300 3+ Normal VACUOL LAB L100.5500 ADEQ Normal PLT EST ADEQUATE LAB L100.7000 NORM C AND C NORMAL Normal RED CELL MORPH NORM C+C LAB L100.2620 2.0-7.7 X10 3/uL Normal Absolute Neut 7.6 LAB L100.2720 0.83-4.51 X10 3/ul Low Absolute Lymph 0.17 LAB L100.9900 Normal PATH REV Reviewed Result Comment: Neutrophilic left shift. Normocytic anemia. Clinical correlation necessary. Osvaldo Guzman M.D. 11/30/17 AMENDED REPORT 11/30/17 1256 PATH REV previously reported as: June jose luis Performed By: #### L100.0100 #### [facility] [address] [place], [address] CPK TOTAL, CREATINE Collected: 11/30/2017 Status: F Source: [place] K[place] 5:35 AM [facility] REPOSITORY Order Comment: Comments: please add to todays lab TYPE CODE TESTS RESULT OUT OF RANGE REFERENCE UNITS LAB L501.3620 26-192 U/L High CPK TOTAL 258 Performed By: #### L501.3620 #### [facility] [address] [place], [address] HISTORY AND PHYSICAL Observed: 11/30/2017 Status: F Source: [place] EXAM 4:56 AM [facility] REPOSITORY [facility] Medical Records Department [address] [place] [address] History and Physical 11/29/17 2323 MR#: [id number] Acct: [id number] Name: XOCHITL UGARTE Rep #: [id number] : 1945 72 From: Tony Dey MD PCP: Elkin Wood MD Status: ADM IN Location: [place] [address]-1 Problem List (1) Sepsis affecting skin Status: Acute (2) Cellulitis Status: Acute (3) HTN (hypertension) Status: Chronic Qualifiers: Hypertension type: essential hypertension Qualified Code(s): I10 - Essential (primary) hypertension (4) COPD (chronic obstructive pulmonary disease) Status: Chronic Qualifiers: COPD type: unspecified COPD Qualified Code(s): J44.9 - Chronic obstructive pulmonary disease, unspecified (5) Acute encephalopathy Status: Acute History of Present Illness Date of Admission: 11/29/17 Chief Complaint: INCREASED LETHARGY The patient is a 72 year old F with a significant history of chronic back pain; COPD; hypertension; upper and lower spine surgery; who presents with progressively worsening lethargy x1 day. Patient was seen at the emergency department a day before this admission at that time CT scan of the head showed sinus infection and she had hypokalemia. She was discharged home on Augmentin and potassium chloride. The next day (the day of this new admission) her daughter went to patient's home. Patient could not appropriately converses with her daughter. All what she was saying was okay okay. Patient who is usually continent was found to be incontinent of urine x2 at home and also incontinent at emergency department. Was at home patient could not stand up requiring a commode to be provided for her. Her daughter reports that since 4 days ago patient have had poor appetite and she has not been eating solid food. She has had weakness and pounding headache. At the time of admission patient reports some mild headache. Patient sees Dr. Brown for chronic pain and pain pump was inserted in her right buttocks because of sciatica. Patient usually has pain only on the right leg but now she is complaining of pain in her entire right side. Past Medical History Past Medical History (Chronic Problems): Chronic Problems Chronic back pain (Chronic) Asthma (Chronic) HTN (hypertension) (Chronic) COPD (chronic obstructive pulmonary disease) (Chronic) Allergies No Known Allergies Allergy (Verified 11/29/17 18:30) Home Medications: Ambulatory Orders Medication Instructions Recorded Surgical History: appendectomy, cholecystectomy, hysterectomy, - - Hysterectomy, right knee arthroscopic surgery, left shoulder rotator cuff tear intervention, hernia repair, left total knee replacement, left knee arthroscopic surgery, right knee replacement, back surgery, left total hip arthroplasty, right total hip arthroplasty, appendectomy. 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 Denies: Chills, Weight Change HEENT: Reports: Head Aches. Denies: Sinus Congestion, Sinus Drainage Cardiovascular: Denies: Chest Pain, Palpitations Respiratory: Denies: Cough, Shortness of breath at rest, Sputum production Gastrointestinal: Reports: Diarrhea, Vomiting. Denies: Abdominal Pain Genitourinary: Reports: Incontinence Musculoskeletal: Denies: Joint Pain, Joint Tenderness Skin: Reports: Skin Changes - Redness of right posterior side.. Denies: Rash, Wounds Neurological: Reports: Confusion. Denies: Focal weakness, Numbness, Tingling Psychiatric: Denies: Anxiety, Depression, Homicidal Ideations, Suicidal Ideations Hematologic/ Lymphatic: Denies: Easy Bruising, Easy Bleeding VTE Information - Inpt Only VTE Present on Admission: No VTE Mechan Device Prophylaxis: None VTE Pharm Prophylaxis ordered?: Yes Patient Problems: Active and Suspected Problems Cellulitis (Acute) Altered mental status, unspecified (Acute) Sepsis affecting skin (Acute) Acute encephalopathy (Acute) - Physical Exam General: Alert, - - Verbalized that she is not [facility]. Unable to complete sentences. Does not involve herself much in history. Daughter provides much of the history. HEENT: Atraumatic, PERRLA, Normocephalic Neck: Supple, No JVD, Negative Carotid Bruits Lungs: Clear to auscultation, Normal air movement Cardiovascular: No murmurs, No rub noted, No Gallop, Tachycardic Abdomen: Bowel Sounds Present, Soft, Non Tender Extremities: Capillary Refill Less than 3 Seconds, Edema - +1 nonpitting edema to bilateral legs. Skin: No breakdown, - - Redness and tenderness to right posterior side; especially at right posterior hip. Very warm to touch especially at the right posterior side. Musculoskeletal: No Tenderness to Palpation of Joints or Extremities Lymphatic: No Cervical, Supraclavicular, or Inguinal Adenopathy Neurological: - - Lethargic Psych/Mental Status: Normal Affect, Appropriate Vital Signs Temp Pulse Resp BP Pulse Ox 100.5 F H 94 16 161/69 H 98 11/29/17 22:06 11/29/17 23:14 11/29/17 23:14 11/29/17 23:14 11/29/17 23:14 Oxygen Flow Rate (L/min) 2 Oxygen Delivery Method Nasal Cannula Weight: 82 kg Body Mass Index (BMI) 28.3 Laboratory Tests Past 24 Hrs WBC 10.7 WBC Assessment/Plan All Active Problems Cellulitis (Acute) Altered mental status, unspecified (Acute) Sepsis affecting skin (Acute) Acute encephalopathy (Acute) Hip pain, right (Acute) Acute back pain (Acute) The patient is a 72 year old F with a significant history of chronic back pain; COPD; hypertension; upper and lower spine surgery; pain pump to right buttocks who presents with progressively worsening lethargy; confusion; fever; tachycardia redness to posterior right side; tenderness to posterior right side; and extremely elevated CRP concerning for sepsis secondary to likely infection from pain pump. Sepsis secondary to likely infection from pain pump QSofa = 2; patient with tachypnea; altered mental status SIRS criteria of tachycardia; tachypnea and fever Patient very warm to touch especially at the left posterior side Lactic acid unremarkable White counts high normal C-reactive protein highly elevated at 287 Patient received cefazolin at emergency department. Blood cultures were ordered from the emergency department. Vancomycin and Zosyn ordered We will consult for consideration for pain pump removal. Infectious disease consulted to help optimize management. Tylenol as needed for pain. Trend CBC Hypertension On admission blood pressure was uncontrolled. Hydrochlorothiazide and lisinopril continued Labetalol as needed Trend BMP Abnormal urinalysis Noted to have elevated protein Likely due to hypertensive nephropathy or glomerulonephritis secondary to infection Protein creatinine ratio ordered Continue lisinopril Nephrology consult to optimize management. COPD Budesonide continued Albuterol as needed DVT prophylaxis Subcutaneous heparin. Code Visit Inpatient E AND M: 82055 Init Hosp L3 11/30/17 0456 <Electronically signed by Tony Dey MD> Date Tony Dey MD Cosigner Signature: Date (if applicable) CC: Tony Dey MD; Elkin Wood MD Signed US OUTSIDE CD DICOM Observed: 11/30/2017 Status: F [facility] REPOSITORY Images were obtained outside of [facility] [id number] EMERGENCY DEPARTMENT Observed: 11/29/2017 Status: F Source: [place] SUMMARY 11:49 PM [facility] REPOSITORY [facility] Medical Records Department [address] [place] [address] Emergency Department Summary 11/29/17 2341 MR#: [id number] Acct: [id number] Name: XOCHITL UGARTE Rep #: [id number] : 1945 72 From: Kiko Marroquin DO PCP: Elkin Wood MD Status: ADM IN - ER Visit Summary Date of Service: 11/29/17 Chief Complaint: Confusion and redness to low back. History of Present Illness: The patient is a 72 F who presents with confusion that became worse today. Patient was seen here yesterday and diagnosed with dehydration. Patient was given IV fluids and had labs drawn yesterday. Patient also had a CT scan of the brain obtained yesterday which was normal. Family noticed redness and warmth over the right lower back over the site of her pain pump today. Family denies any discharge or drainage. Family states the patient has been having some subjective fevers. Family states the patient is unable to complete her sentences. She would start a sentence but would not complete her sentence. This was not due to shortness of breath. Physical Examination: Vital signs are stable. Patient is afebrile here. Patient is in no acute distress. Oral mucosa is pink and moist. Neck is supple. Trachea is midline. There is no JVD noted. Skin is warm dry. There is erythema and warmth over the right lower lumbar area up to the lower thoracic area. There is no fluctuance. There is no discharge or drainage. Heart was regular rate and rhythm. Lungs are clear and equal bilateral. Abdomen is soft and nontender. Cranial nerves II through XII are intact. There are no gross focal motor or sensory deficits noted. Test Results: CT scan of the brain was obtained again today. There is no acute process. Chest x-ray does not show any acute infiltrate. EKG shows normal sinus rhythm with a rate of 91. There are no acute ST or T wave changes. CBC shows a mild anemia with a hemoglobin of 9.8. Comprehensive metabolic profile shows a mild hypokalemia of 3.1. BUN was slightly elevated at 28. Lactate was normal at 1.3. Urinalysis does not show any evidence of urinary tract infection. Emergency Department Course and Treatment: Blood cultures were obtained. Patient was started on Ancef here. Case was discussed with Dr. Dey. He will admit the patient to his service. Patient and family understood and was agreeable with the plan. All questions were answered. Disposition: Discharged home Impression: 1. Cellulitis 2. Altered mental status This note was generated with [employer] dictation software. It may contain incorrect words, spelling, and punctuation that were not noted in review of the chart prior to signing ED Disposition - Plan for ED Patient: Disposition: Acute Care Hospital [facility] Chief Complaint: General Illness Diagnosis: Cellulitis, Altered mental status, unspecified Referrals: Elkin Wood MD [Primary Care Provider] - What to do if you have Problems For any increased pain, shortness of breath, bleeding, nausea or vomiting, chest pain, or any unexpected problems, contact your Primary Care Provider. Call [facility] ([phone]) or report to the closest Emergency Room. Call 911 if necessary. 11/29/17 2349 <Electronically signed by Kiko Marroquin DO> Date Kiko Marroquin DO Cosigner Signature (If Indicated): Date CC: Elkin Wood MD Observed: 11/29/2017 Status: C Source: [place] CULTURE, BLOOD (WB) 8:30 PM [facility] REPOSITORY AEROBIC AND ANAEROBIC BOTTLE GRAM STAIN= GRAM POSITIVE COCCI IN CLUSTERS RESULTS CALLED TO JINNY BAGLEY MS3 11/30/17 0642 Anahi Correa. REPORT READ BACK BY SAME. Copy of report sent to Infection Control Printer [id number] 12/02/17 5705 REBEL. Min Inhibitory Con Daptomycin 0.50 ug/mL Sensitive Ceftaroline 0.5 mcg/mL Sensitive TESTING PERFORMED AT [facility]. ORIGINAL REPORT ON FILE IN LAB CONTAINS ADDITIONAL TEST SITE INFORMATION. ORGANISM 1: Meth. resistant Staph. aureus Amount Growth Growth Meth. resistant Staph. aureus: REACTION Benzylpenicillin NF >=0.5 R Cefoxitin *NF + Clindamycin $$ <=0.25 S Inducable Clindamycin Resistan - Erythromycin $ <=0.25 S Gentamicin $ <=0.5 S Levofloxacin $ <=0.12 S Linezolid $$$$ 1 S Oxacillin NF >=4 R Tigecycline $$$$ <=0.12 S Rifampin $$ <=0.5 S Tetracycline NF <=1 S Trimethoprim/Sulfametho $ <=10 S Vancomycin $ <=0.5 S (NF) indicates non-formulary drug at [facility]. Approval by Infectious Disease Specialist required before non-formulary drugs may be ordered and/or dispensed. * CLSI guidelines does not recommend testing of cephalosporins. This interpretation is deduced from Beta-lactam/penicillin results. Performed By: #### M200.1000, M100.636 #### [facility] [address] [place], [address] Observed: 11/29/2017 Status: F Source: [facility] GPC ID 8:30 PM [facility] REPOSITORY GPC ID RESULTS CALLED TO Salvatore MCKEON 11/30/17 1030 Alyssa García. REPORT READ BACK BY JOSE ELIAS. Copy of report sent to Infection Control Printer [id number] 11/30/17 1031 JUSTYN. Staphylococcus sp. Staphylococcus aureus Enterococcus sp. Not Detected Streptococcus spp. Not Detected Listeria spp Not Detected Andre/vanB Not Detected mecA mecA Resistance Marker Detected NAAT METHOD Testing was performed using nucleic acid amplification ORGANISM 1: Staphylococcus aureus ORGANISM 2: mecA Resistance Marker Performed By: #### M200.1000, M100.636 #### [facility] [address] [place], [address] URINALYSIS, COMPLETE Collected: 11/29/2017 Status: F Source: [place] 7:40 PM [facility] REPOSITORY Order Comment: Order Date: 11/29/17 How was Urine Obtained? SOFTWARE QUALITY ASSURANCE ENGINEER TO SPECIFY TYPE CODE TESTS RESULT OUT OF RANGE REFERENCE UNITS LAB L400.3000 Yellow COLOR Normal Yellow LAB L400.3050 Clear Normal CLARITY Clear LAB L400.3200 Normal mg/dl Normal GLUCOSE, UR Normal LAB L400.3300 Negative mg/dL Normal BILIRUBIN URINE Negative LAB L400.3400 Negative mg/dl High 15 KETONE UR LAB L400.3465 1.002-1.030 Normal SP.GR. DIPSTX 1.020 LAB L400.3550 5.0 - 8.0 pH UR Normal 6.0 LAB L400.3600 Negative mg/dl High PROT DIPSTX 500 LAB L400.3700 Normal mg/dl High 1 UROBILI LAB L400.3750 Negative Normal NITRITE UR Negative LAB L400.3780 Negative /ul High 50 OCCULT BLOOD-UR LAB L400.3800 Negative /ul High LEUK 25 ESTERASE LAB L400.4050 0-5 /hpf WBC Normal 5-10 SEEN LAB L400.4100 0-5 /hpf Normal RBC-UA 0-5 SEEN LAB L400.4150 5-10 /hpf SQUAM Normal EPI 5-10 SEEN LAB L400.4300 None Seen /hpf 1+ Normal BACTERIA LAB L400.4350 <or=2+ /hpf 1+ Normal MUCUS, URINE LAB L400.4900 1+ Normal AMORPHOUS Performed By: #### L400.0001 #### [facility] [address] [place], [place], [address] PROTEIN+CREATININE Collected: Status: F Source: [place] RATIO,URINE 11/29/2017 7:40 PM [facility] REPOSITORY Order Comment: Comments: using urine already in lab TYPE CODE TESTS RESULT OUT OF RANGE REFERENCE UNITS LAB L501.1200 NO RANGE EST. mg/dL Normal UR CREAT 155.00 LAB L501.1930 <11.9 mg/dL High 349.8 PROTEIN,UR.R AN. LAB L501.1940 0-200 mg/g CRE High PROT:CRE 2257 RATIO Performed By: #### L501.0900 #### [facility] [address]. [place], [place], [address] Observed: 11/29/2017 Status: F Source: [place] CULTURE, URINE 7:40 PM [facility] REPOSITORY Order Date: 11/29/17 Urine Culture Culture exhibits no growth. Performed By: #### M100.0650 #### [facility] [address] [place], [address] CBC W/DIFF, AUTOMATED Collected: 11/29/2017 Status: C Source: [place] 7:25 PM [facility] REPOSITORY TYPE CODE TESTS RESULT OUT OF RANGE REFERENCE UNITS LAB L100.1000 4.4-11.0 K/mm3 Normal WBC 10.7 LAB L100.1200 4.2-5.4 M/mm3 Low RBC 3.46 LAB L100.1300 12.0-15.0 g/dl Low HGB 9.8 LAB L100.1400 37-47 % Low HCT 29.7 LAB L100.1500 81-99 fL Normal MCV 85.8 LAB L100.1600 27.0-32.0 pg Normal MCH 28.3 LAB L100.1700 32-36 g/gl Normal MCHC 33.0 LAB L100.1810 11.6-14.6 % Normal RDW CV 13.9 LAB L100.1820 35.1-43.9 fl Normal RDW SD 42.5 LAB L100.1900 150-450 K/mm3 Normal PLT 229 LAB L100.2000 6.2-12.0 fl Normal MPV 9.4 LAB L100.2100 47-70 % High NEUT% 83.8 LAB L100.2200 19-41 % Low LY% 2.7 LAB L100.2300 0-10 % High MONO% 11.0 LAB L100.2400 0-5 % Normal EO% 0.2 LAB L100.2500 0-1 % Normal BASO% 0.2 LAB L100.2550 0.0-0.9 % High IM GRAN % 2.100 Result Comment: IG% - Immature Granulocytes (promyelocytes, myelocytes and metamyelocytes) > 1% indicates that a LEFT SHIFT is Present. LAB L100.2620 2.0-7.7 X10 3/uL High Absolute Neut 9.0 LAB L100.2720 0.83-4.51 X10 3/ul Low Absolute Lymph 0.29 LAB L100.4500 SMEAR Normal COMMENT Result Comment: LYMPHOPENIA NOTED LAB L100.9900 Normal Reviewed PATH REV Result Comment: Neutrophilic left shift. Normocytic anemia. Clinical correlation necessary. Osvaldo Guzman M.D. 11/30/17 AMENDED REPORT 11/30/17 0555 PATH REV previously reported as: May foll Performed By: #### L100.0100 #### [facility] [address] [place], [place], [address] PROTHROMBIN TIME W/INR Collected: 11/29/2017 Status: F Source: [place] 7:25 PM [facility] REPOSITORY TYPE CODE TESTS RESULT OUT OF RANGE REFERENCE UNITS LAB L300.4150 11.7-14.9 SECONDS Normal PROTIME 14.0 LAB L300.4200 Normal INR 1.1 Performed By: #### L300.3900, L300.4310 #### [facility] [address] [place], [address] PARTIAL THROMBOPLAST Collected: 11/29/2017 Status: F Source: [place] TIME 7:25 PM [facility] REPOSITORY TYPE CODE TESTS RESULT OUT OF RANGE REFERENCE UNITS LAB L300.4310 24.1-36.2 Seconds Normal PTT 33.0 Performed By: #### L300.3900, L300.4310 #### [facility] [address] [place], [address] COMPREHENSIVE METABOLIC Collected: 11/29/2017 Status: F Source: [place] PROFIL 7:25 PM [facility] REPOSITORY TYPE CODE TESTS RESULT OUT OF RANGE REFERENCE UNITS LAB L501.0100 74-106 mg/dL High GLU 130 Result Comment: Fasting Glucose result greater than or equal to 126 mg/dL suggests DIABETES MELLITUS per A.D.A. criteria. Please note revised GLUCOSE reference range effective 2017. LAB L501.1000 7-18 mg/dL High BUN 28 LAB L501.1100 0.55-1.02 mg/dL Normal CREAT,SERUM 0.97 Result Comment: The validity of the calculated GFR AND GFRAA in patients over 70 years has not been determined. Clinical correlation is essential. LAB L501.1110 >60 mL/min Normal EST GFR 60 Result Comment: Non- GFR Calc LAB L501.1115 >60 mL/min Normal EST GFR - AA 73 Result Comment: GFR Calc LAB L501.1255 ml/min Normal Estimated CRCL 51.73 LAB L501.1300 10-20 RATIO High BUN/CRE 29.0 LAB L501.1500 6.4-8. g/dL Normal 2 T PROT 7.1 LAB L501.1800 3.2-5. g/dL Low 0 ALB 2.5 LAB L501.1950 2.2-4. g/dL High 2 GLOB 4.6 LAB L501.2000 0.9-2. RATIO Low 4 A/G 0.5 LAB L501.2200 8.5-10 mg/dL Normal .1 CA 8.6 LAB L501.4100 15-37 U/L High AST 40 LAB L501.4305 45-117 U/L Normal ALK P 102 LAB L501.4405 13-56 U/L Normal ALT 34 LAB L501.4600 0.20-1 mg/dL Normal .00 T BILI 0.40 LAB L501.5300 136-14 mmol/L Normal 5 NA 136 LAB L501.5600 3.5-5. mmol/L Low 1 K 3.1 LAB L501.5900 98-107 mmol/L Normal CL 100 LAB L501.6100 21.0-3 mmol/L Normal 2.0 CO2 26.0 LAB L501.6200 5-15 Normal GAP 10 Performed By: #### L500.4050 #### [facility] [address] [place], [place], [id number] LACTIC ACID Collected: 11/29/2017 Status: F Source: [place] 7:25 [facility] REPOSITORY Order Comment: Yes/No query for Sepsis Lactate Rule Y TYPE CODE TESTS RESULT OUT OF RANGE REFERENCE UNITS LAB L503.6005 0.4-2.0 mmol/L Normal LACTIC ACID 1.3 Performed By: #### L503.6005 #### [facility] [address] [place], [address] CRP Collected: 11/29/2017 Status: F Source: [place] 7:25 PM [facility] REPOSITORY Order Comment: Comments: specimen in lab TYPE CODE TESTS RESULT OUT OF RANGE REFERENCE UNITS LAB L501.6710 0.0-3.0 mg/L High 287.00 C-REACTIVE PROT Result Comment: C-Reactive Protein (CRP) provides useful information for the diagnosis, therapy and monitoring of inflammatory processes and associated diseases. For the evaluation of Relative Risk for Cardiovascular Disease, a High Sensitivity CRP (HSCRP) should be ordered. Performed By: #### L501.6710 #### [facility] [address] [place], [place], [address] Observed: 11/29/2017 Status: F Source: [place] CULTURE, BLOOD (WB) 7:25 PM [facility] REPOSITORY BC AEROBIC AND ANAEROBIC BOTTLES GRAM STAIN = GRAM POSITIVE COCCI CLUSTERS RESULTS CALLED TO Salvatore MCKEON 11/30/17 1032 Alyssa García. REPORT READ BACK BY JOSE ELIAS. PROBABLE MRSA, SEE [id number] FOR COMPLETE IDENTIFICATION AND SENSITIVITY. No anaerobic bacteria isolated. ORGANISM 1: Staphylococcus aureus Amount Growth Growth Performed By: #### M200.1000 #### [facility] [address] [place], [place], [address] NICKIE W/ REFLEX MULT Collected: 11/29/2017 Status: F Source: [place] CONFIRM 7:25 PM [facility] REPOSITORY TYPE CODE TESTS RESULT OUT OF RANGE REFERENCE UNITS LAB L3100.5475 Negative Normal Negative NICKIE-DIRECT Result Comment: Performed at: - [facility] [address] [id number] Oversize Load Pilot Escort: Mychal Barrios PhD, Phone: [phone] Performed By: #### L3100.5450 #### [facility] (refer to report for specific site) refer to report for address and phone number LORA + PROTEIN ELECT, Collected: 11/29/2017 Status: F Source: [place] SERUM 7:25 PM [facility] REPOSITORY TYPE CODE TESTS RESULT OUT OF RANGE REFERENCE UNITS LAB L3100.3500 6.0-8.5 g/dL Normal PROTEIN,TOTAL 6.3 LAB L3200.8771 367-6133 mg/dL Low IMMUNO G 583 LAB L3200.1400 64-422 mg/dL Normal IMMUNO A 159 LAB L3200.1500 26-217 mg/dL Normal IMMUNOGL M 105 LAB L3200.1510 2.9-4.4 g/dL Low ALBUMIN 2.6 LAB L3200.1520 0.0-0.4 g/dL High TTIRW-7-WMJM 0.7 LAB L3200.1530 0.4-1.0 g/dL High RCHSR-1-TRLH 1.4 LAB L3200.1540 0.7-1.3 g/dL Normal BETA GLOBULIN 1.0 LAB L3200.1550 0.4-1.8 g/dL Normal GAMMA GLOBULIN 0.6 LAB L3200.1560 Normal M-SPIKE Result Comment: Not Observed LAB L3200.1570 2.2-3.9 g/dL Normal GLOBULIN, TOTAL 3.7 LAB L3200.1580 0.7-1.7 A/G Normal RATIO 0.8 LAB L3200.1590 . LORA Normal RESULT,S Comment Result Comment: No monoclonality detected. LAB L3200.1594 . Normal NOTE: Comment Result Comment: Protein electrophoresis scan will follow via computer, mail, or vending supervisor delivery. Performed By: #### L3100.3425, L3600.4030 #### [facility] (refer to report for specific site) refer to report for address and phone number IMMUNOFIXATION URINE Collected: 11/29/2017 Status: F Source: [place] 7:25 PM [facility] REPOSITORY TYPE CODE TESTS RESULT OUT OF RANGE REFERENCE UNITS LAB L3600.4030 . Test Normal LORA not performed Urine Result Comment: Quantity was not sufficient for analysis. Contacted Sarah at your facility 12/02/17 Performed By: #### L3100.3425, L3600.4030 #### [facility] (refer to report for specific site) refer to report for address and phone number BRAIN/HEAD WITHOUT Observed: 11/29/2017 Status: F Source: [place] CONTRAST 7:08 PM [facility] REPOSITORY [facility] Imaging Services [address] [place] [address] Brain/Head without Contrast MR#: [id number] Acct: [id number] Name: XOCHITL UGARTE Rep #: [id number] : 1945 F 72 From: Javier Cordero DO PCP: Elkin Wood MD Status: REG ER Study: Brain/Head without Contrast Date of Exam: 11/29/17 Exam# [id number] Ordering Dr: Kiko Marroquin DO STUDY: CT BRAIN WITHOUT CONTRAST REASON FOR EXAM: Female, 72 years old. Altered mental status. RADIATION DOSAGE (If Supplied By Facility): CTDIvol = ( 44.99 ) mGy, DLP = ( 745.49 ) mGycm TECHNIQUE: Transaxial CT imaging of the brain was performed without administration of intravenous contrast material. Individualized dose optimization techniques were used for this CT. COMPARISON: Head CT yesterday FINDINGS: Normal soft tissue structures. Normal calvarium. There is mild cerebral atrophy with widening of the extra- axial spaces and ventricular dilatation. There are areas of decreased attenuation within the white matter tracts of the supratentorial brain, consistent with microvascular disease changes. Normal basal ganglia and thalami. Normal brainstem. Normal cerebellum. There is no intracranial hemorrhage. There are no findings of an acute ischemic infarction. There is mucoperiosteal inflammatory disease of the paranasal sinuses consistent with moderate chronic sinusitis. CT/Brain/Head without Contrast IMPRESSION: No acute intracranial pathology. Paranasal sinus disease. No change from yesterday. Electronically Signed: Javier Cordero DO at 20:00 EDT Tel , Service support , CC: Kiko Marroquin DO; Elkin Wood MD Program Schedule Clerk: Signed CHEST 1 VIEW Observed: 11/29/2017 Status: F Source: [place] (PORTABLE) 7:08 PM [facility] REPOSITORY [facility] Imaging Services [address] [place] [address] Chest 1 View (Portable) MR#: [id number] Acct: [id number] Name: XOCHITL UGARTE Rep #: [id number] : 1945 F 72 From: Javier Cordero DO PCP: Elkin Wood MD Status: REG ER Study: Chest 1 View (Portable) Date of Exam: 11/29/17 Exam# [id number] Ordering Dr: Kiko Marroquin DO STUDY: X-RAY CHEST REASON FOR EXAM: Female, 72 years old. Altered mental status and fever TECHNIQUE: Single AP portable view of the chest. COMPARISON: None. FINDINGS: The lungs are clear and expanded. There is no demonstrated pleural abnormality. There is mild cardiac enlargement. Normal mediastinum and awilda. Normal visualized pulmonary arteries. Normal visualized aortic arch and descending thoracic aorta. Normal visualized thoracic spine. Normal visualized ribs, clavicles, and shoulders. There is no demonstrated abnormality of the visualized soft tissue structures of the upper abdomen. Spinal stimulator device RAD/Chest 1 View (Portable) IMPRESSION: Mild cardiomegaly. No acute airspace disease. Electronically Signed: Javier Cordero DO at 20:01 EDT Tel , Service support , CC: Kiko Marroquin DO; Elkin Wood MD Program Schedule Clerk: Signed XR OUTSIDE CD DICOM Observed: 11/29/2017 Status: F Source: [facility] [facility] -NB[place] 12:00 AM [facility] REPOSITORY Images were obtained outside of [facility] [id number] CT OUTSIDE CD DICOM Observed: 11/29/2017 Status: F Source: [facility] -NBNR 12:00 AM [facility] REPOSITORY Images were obtained outside of [facility] [id number] EMERGENCY DEPARTMENT Observed: 11/28/2017 Status: F Source: [place] SUMMARY 4:38 PM [facility] REPOSITORY [facility] Medical Records Department [address] [place] [address] Emergency Department Summary 11/28/17 1440 MR#: [id number] Acct: [id number] Name: XOCHITL UGARTE Rep #: [id number] : 1945 72 From: Ej Bauer PCP: Elkin Wood MD Status: REG ER - ER Visit Summary Date of Service: 11/28/17 Chief Complaint: Headache, nausea and vomiting History of Present Illness: The patient is a 72 F patient reports headache 5 days ago frontal region. No falls or head injuries. States at that time had nausea and vomiting and diarrhea total 4 episodes over 2 days. Diarrhea is improved, states nausea and vomited, and go. 2 episodes today. No hematemesis. No fevers. No neck pain. States with her headaches, mild photophobia, no aura. No history of headaches. Status post spinal stimulator November 13 for her back, states back pain is improving with this. Denies any allergies. No urinary symptoms. Physical Examination: General: Alert and oriented 3, no acute distress HEENT: Normocephalic, atraumatic. Moist mucosa membranes pupils equal reactive to light, extraocular muscles intact. Neck: supple, nontender. No meningismus Cardiovascular: Regular rate and rhythm, no murmurs Respiratory: Normal breath sounds, symmetric, no distress Abdomen: Soft, nontender, nondistended. Negative McBurney's, negative Thompson's. Extremities: Nontender, no edema, pulses intact 4 Neuro: no focal neurological deficits. Cranial nerves II through XII intact. Test Results: WBC 16.7. Hemoglobin 10.2. Potassium 2.7. Creatinine 1. Magnesium 2.2. CT head ethmoid sinusitis left nasal Brandon. No intracranial process. Emergency Department Course and Treatment: Patient vital signs stable, no meningismus. Headache symptoms before her vomiting. Her diarrhea has improved. She is given IV fluids. Reglan and Benadryl for headache symptoms. CT head was obtained, no intracranial process noted ethmoid sinusitis findings. Patient nausea improved with medicine still has had discomfort. Discussed likely sinus headaches with findings on CT. Her persistent symptoms for 5 days we will placed on Augmentin. Her potassium was 2.7 she is on hydrochlorothiazide. Magnesium level was added which is normal. Started on potassium replacement today and continued for 7 days. Patient does have an elevated white count. She denies any cough or urinary symptoms. No rash. Hemoglobin similar to March of this year. Patient given prescriptions for symptom control and follow-up with PCP. Signs and symptoms discussed to return. All questions were answered. Treatment Plan: [] Disposition: Discharge Impression: 1. Sinus headache 2. Nausea and vomiting 3. Hypokalemia This note was generated with Stevieation software. It may contain incorrect words, spelling, and punctuation that were not noted in review of the chart prior to signing ED Disposition - Plan for ED Patient: Disposition: Home or Assisted Living Chief Complaint: Nausea/Vomiting/Diarrhea Diagnosis: Sinus headache, Nausea and vomiting, Hypokalemia Instructions: ED Vomiting Diarrhea Nonspecific Ad, ED Headache Sinus, ED Potassium Deficiency Prescriptions: Ondansetron [Zofran Odt] 8 mg PO Q8H PRN PRN #10 tab PRN Reason: Nausea Amox/Clavulanate Tablet [Augmentin Tablet] 875 mg PO Q12H #20 tablet Potassium Cloride Effervescent [Potassium Chl 25 Meq Eff (For Liquid)] 25 meq PO DAILY #7 tablet.eff Referrals: Elkin Wood MD [Primary Care Provider] - 3-5 Days Additional Instructions: Potassium 2.7. Magnesium 2.2. Take potassium replacement as prescribed. Recheck by your doctor. Take antibiotic for your sinus headache. Continue oral fluids, Zofran as needed. What to do if you have Problems For any increased pain, shortness of breath, bleeding, nausea or vomiting, chest pain, or any unexpected problems, contact your Primary Care Provider. Call [facility] ([phone]) or report to the closest Emergency Room. Call 911 if necessary. 11/28/17 1638 <Electronically signed by Ej Bauer> Date Ej Bauer Cosigner Signature (If Indicated): Date CC: Elkin Wood MD BASIC METABOLIC Collected: 11/28/2017 Status: F Source: [place] PROFILE (BMP) 3:03 PM [facility] REPOSITORY TYPE CODE TESTS RESULT OUT OF RANGE REFERENCE UNITS LAB L501.0100 74-106 mg/dL High GLU 144 Result Comment: Fasting Glucose result greater than or equal to 126 mg/dL suggests DIABETES MELLITUS per A.D.A. criteria. Please note revised GLUCOSE reference range effective 2017. LAB L501.1000 7-18 mg/dL High BUN 31 LAB L501.1100 0.55-1.02 mg/dL Normal CREAT,SERUM 1.00 Result Comment: The validity of the calculated GFR AND GFRAA in patients over 70 years has not been determined. Clinical correlation is essential. LAB L501.1110 >60 mL/min Low EST GFR 58 Result Comment: Non- GFR Calc LAB L501.1115 >60 mL/min Normal EST GFR - AA 70 Result Comment: GFR Calc LAB L501.1255 ml/min Normal Estimated CRCL 42.68 LAB L501.1300 10-20 RATIO High BUN/CRE 31.0 LAB L501.2200 8.5-10 mg/dL Normal .1 CA 9.1 LAB L501.5300 136-14 mmol/L Low 5 NA 134 LAB L501.5600 3.5-5. mmol/L Low 1 K alert 2.7 Result Comment: Critical Result(s) Called at: 15:23:29 11/28/2017 by: Shruthi SHERIDAN LAB L501.5900 98-107 mmol/L Low CL 96 LAB L501.6100 21.0-32.0 mmol/L Normal CO2 29.0 LAB L501.6200 5-15 Normal GAP 9 Performed By: #### L500.2500 #### [facility] [address] [place], [place], [address] CBC W/DIFF, AUTOMATED Collected: 11/28/2017 Status: F Source: [place] 3:03 PM [facility] REPOSITORY TYPE CODE TESTS RESULT OUT OF RANGE REFERENCE UNITS LAB L100.1000 4.4-11.0 K/mm3 High WBC 16.7 LAB L100.1200 4.2-5.4 M/mm3 Low RBC 3.64 LAB L100.1300 12.0-15.0 g/dl Low HGB 10.2 LAB L100.1400 37-47 % Low HCT 31.0 LAB L100.1500 81-99 fL Normal MCV 85.2 LAB L100.1600 27.0-32.0 pg Normal MCH 28.0 LAB L100.1700 32-36 g/gl Normal MCHC 32.9 LAB L100.1810 11.6-14.6 % Normal RDW CV 14.0 LAB L100.1820 35.1-43.9 fl Normal RDW SD 42.4 LAB L100.1900 150-450 K/mm3 Normal PLT 281 LAB L100.2000 6.2-12.0 fl Normal MPV 10.0 LAB L100.2100 47-70 % High NEUT% 88.7 LAB L100.2200 19-41 % Low LY% 1.7 LAB L100.2300 0-10 % Normal MONO% 8.6 LAB L100.2400 0-5 % Normal EO% 0.1 LAB L100.2500 0-1 % Normal BASO% 0.1 LAB L100.2550 0.0-0.9 % Normal IM GRAN % 0.800 Result Comment: IG% - Immature Granulocytes (promyelocytes, myelocytes and metamyelocytes) > 1% indicates that a LEFT SHIFT is Present. LAB L100.2620 2.0-7.7 X10 3/uL High Absolute Neut 14.8 LAB L100.2720 0.83-4.51 X10 3/ul Low Absolute Lymph 0.29 LAB L100.4500 Normal SMEAR COMMENT SCANNED Performed By: #### L100.0100 #### [facility] [address] [place], [address] MAGNESIUM Collected: 11/28/2017 Status: F Source: [place] 3:03 PM [facility] REPOSITORY TYPE CODE TESTS RESULT OUT OF RANGE REFERENCE UNITS LAB L501.5200 1.6-2.6 mg/dL Normal MG 2.2 Performed By: #### L501.5200 #### [facility] [address] [place], [address] BRAIN/HEAD WITHOUT Observed: 11/28/2017 Status: F Source: [place] CONTRAST 2:40 PM [facility] REPOSITORY [facility] Imaging Services [address] [place] [address] Brain/Head without Contrast MR#: [id number] Acct: [id number] Name: XOCHITL UGARTE Rep #: [id number] : 1945 F 72 From: Get Espinoza DO PCP: Elkin Wood MD Status: REG ER Study: Brain/Head without Contrast Date of Exam: 11/28/17 Exam# [id number] Ordering Dr: Ej Xiao DO STUDY: CT BRAIN WITHOUT CONTRAST REASON FOR EXAM: Female, 72 years old. Headache. RADIATION DOSAGE (If Supplied By Facility): CTDIvol = ( 44.99 ) mGy, DLP = ( 762.36 ) mGycm TECHNIQUE: Transaxial CT imaging of the brain was performed without administration of intravenous contrast material. Individualized dose optimization techniques were used for this CT. COMPARISON: None. FINDINGS: Normal soft tissue structures. Normal calvarium. Normal size ventricles and extra-axial spaces for the patient's age. Normal white matter tracts of the cerebral hemispheres. Normal basal ganglia and thalami. Normal brainstem. Normal cerebellum. There is no intracranial hemorrhage. There are no findings of an acute ischemic infarction. There is complete opacification right maxillary sinus. There is mucoperiosteal reaction in the ethmoid air cells. There appears to be a polyp in the left upper nasal cavity. CT/Brain/Head without Contrast IMPRESSION: 1. Normal unenhanced CT scan of the brain. 2. Sinusitis with probable left nasal polyp. Electronically Signed: Get Espinoza DO at 15:55 EDT Tel [phone], Service support , CC: Elkin Wood MD; Ej Xiao Program Schedule Clerk: Signed CT OUTSIDE CD DICOM Observed: 11/28/2017 Status: F Source: [facility] -NBNR 12:[address] [facility] REPOSITORY Images were obtained outside of [facility] [id number] LUMBAR SPINE 2 OR 3 Observed: 11/13/2017 Status: F Source: [place] VIEWS 12:50 AM [facility] REPOSITORY [facility] Imaging Services [address] [place] [address] Lumbar Spine 2 or 3 Views MR#: [id number] Acct: [id number] Name: XOCHITL UGARTE Rep #: [id number] : 1945 F 72 From: Fred Murray MD PCP: Elkin Wood MD Status: [facility] Study: Lumbar Spine 2 or 3 Views Date of Exam: 11/13/17 Exam# [id number] Ordering Dr: Tayla Brown MD Fluoroscopic guidance for neurostimulator insertion TECHNIQUE: 4 fluoroscopic images. 187 seconds of fluoroscopy time. FINDINGS: 4 fluoroscopic images demonstrate 2 fluoroscopic leads of the lower thoracic spine (exact level and elevated white count images). IMPRESSION: Fluoroscopic guidance for neurostimulator insertion. Please see procedural report. Electronically Signed: Fred Murray MD at 13:21 EDT , Service support , RAD/Lumbar Spine 2 or 3 Views CC: Tayla Brown MD; Elkin Wood MD Program Schedule Clerk: Signed PROGRESS Observed: 11/09/2017 Status: COMPLETED Source: [facility] 10:06 AM [facility] REPOSITORY HNO ID: [id number] Author: Elkin Wood Service: (none) Author Type: Physician Type: Progress Notes Filed: 11/22/2017 7:56 PM Note Text: HISTORY Stephie Ugarte is a 72 year old lady here for yearly exam and follow up appointment. [place]. Still hurts across lower back and down right lateral thigh. Was bruising. has been icing and heating 20 minutes each. no red flag symptoms. Dr. Brown was the last person she saw for treating back. Will see him for follow up this Thursday. Had been treated with prednisone before. Also taking Tylenol ES prn. Tramadol from Dr. Brown ([facility]) not much help. Ibuprofen 600 mg RX more effective. Wound on right leg taken 8 weeks--tripped and stick poked her. Blood pressure controlled without adverse effects from medications. PAST MEDICAL HISTORY Diagnosis Date - ASA CLASS II 09/09/2004 - Bilateral low back pain with left-sided sciatica 04/02/2015 Taken care of by surgery - Bilateral low back pain with sciatica 04/09/2015 Taken care of by surgery - Diverticulitis - Diverticulitis of colon 07/21/2009 - Essential hypertension, benign 12/09/2006 - Mild intermittent asthma without complication 03/27/2016 Current Outpatient Prescriptions: lisinopril-hydrochlorothiazide (PRINZIDE,ZESTORETIC) 10-12.5 mg per tablet Take 1 tablet by mouth once daily. fluticasone-salmeterol (ADVAIR DISKUS) 250-50 mcg/dose dsdv Inhale 1 Puff as instructed twice daily. albuterol HFA (PROVENTIL HFA, VENTOLIN HFA) 90 mcg/actuation inhaler Inhale 2 Puffs as instructed every 4 hours as needed for Wheezing/Shortness of Breath. albuterol (PROVENTIL) 2.5 mg /3 mL (0.083 %) nebulizer solution Use 3 mL via nebulizer every 6 hours as needed for Wheezing/Shortness of Breath. Use over 5-15minutes. albuterol (PROVENTIL) 2.5 mg /3 mL (0.083 %) nebulizer solution Use 3 mL via nebulizer one time only for 1 dose. No current facility-administered medications for this visit. 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 Social History Main Topics Smoking status: Never Smoker Smokeless tobacco: Never Used Comment: Mother smoked in childhood home. Spouse smoked a little. 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 PHYSICAL EXAMINATION: Blood pressure 138/70, pulse 76, resp. rate 20, weight 80.3 kg (177 lb). Body mass index is 30.86 kg/m?. Last 5 Encounter BP Readings: Date: BP: 11/09/2017 138/70 06/26/2017 112/60 02/28/2017 142/84 11/05/2016 120/72 03/11/2016 124/62 Last 5 Encounter Wt Readings: Date: Wt: 11/09/2017 80.3 kg (177 lb) 06/26/2017 82.1 kg (181 lb) 02/28/2017 84.1 kg (185 lb 6.4 oz) 11/05/2016 83 kg (183 lb) 03/11/2016 82.1 kg (181 lb) 11/09/17 0935 11/09/17 1036 BP: 138/70 118/62 Pulse: 76 Resp: 20 Weight: 80.3 kg (177 lb) General appearance: well appearing, in no acute distress, well-hydrated, well nourished Skin: Skin color, texture, turgor normal. No significant rashes or lesions. Head: Normal Eyes: Anicteric sclera. Pupils are equally round and reactive to light. Extraocular movements are intact. Ears: External ears normal. Canals clear. TM's unremarkable. Nose/Sinuses: negative Oropharynx: Lips, mucosa, and tongue normal. Upper dentures in place. Oropharynx normal. Neck: Neck supple, no adenopathy; thyroid symmetric, normal size, no bruits. Lungs: Lungs clear to auscultation Heart: negative. RRR without murmur, gallop, or rubs. No ectopy. Abdomen: Abdomen soft, non-tender. Bowel sounds normal. No masses, organomegaly Extremities: Extremities normal. No deformities, edema, or skin discoloration. Good capillary refill. healing wound right lower oliveros noted--about dime sized Musculoskeletal: grossly normal--pain across lower back and down right thigh indicated Peripheral pulses: Normal Neuro: Gait normal. Reflexes normal and symmetric. Sensation grossly intact. No gross focal neurological deficits. Labs reviewed. CBC W/DIFF, AUTOMATED Collected: 03/26/2017 5:20 AM Status: F Source: [facility] REPOSITORY TYPE CODE TESTS RESULT OUT OF RANGE REFERENCE UNITS LAB L100.1000 WBC 8.5 Normal 4.4-11.0 K/mm3 LAB L100.1200 RBC 3.53 Low 4.2-5.4 M/mm3 LAB L100.1300 HGB 10.2 Low 12.0-15.0 g/dl LAB L100.1400 HCT 30.8 Low 37-47 % LAB L100.1500 MCV 87.3 Normal 81-99 fL LAB L100.1600 MCH 28.9 Normal 27.0-32.0 pg LAB L100.1700 MCHC 33.1 Normal 32-36 g/gl LAB L100.1810 RDW CV 14.5 Normal 11.6-14.6 % LAB L100.1820 RDW SD 44.9 High 35.1-43.9 fl LAB L100.1900 PLT 189 Normal 150-450 K/mm3 LAB L100.2000 MPV 9.4 Normal 6.2-12.0 fl LAB L100.2100 NEUT% 73.5 High 47-70 % LAB L100.2200 LY% 16.5 Low 19-41 % LAB L100.2300 MONO% 8.5 Normal 0-10 % LAB L100.2400 EO% 1.2 Normal 0-5 % LAB L100.2500 BASO% 0.1 Normal 0-1 % LAB L100.2550 IM GRAN % 0.200 Normal 0.0-0.9 % Result Comment: IG% - Immature Granulocytes (promyelocytes, myelocytes and metamyelocytes) > 1% indicates that a LEFT SHIFT is Present. LAB L100.2620 Absolute Neut 6.3 Normal 2.0-7.7 X10 3/uL LAB L100.2720 Absolute Lymph 1.40 Normal 0.83-4.51 X10 3/ul Performed By: #### L100.0100 #### [facility] [address] [place] [address]. [place], [address] BASIC METABOLIC PROFILE (BMP) Collected: 03/26/2017 5:20 AM Status: F Source: [facility] REPOSITORY TYPE CODE TESTS RESULT OUT OF RANGE REFERENCE UNITS LAB L501.0100 GLU 98 Normal 70-110 mg/dL LAB L501.1000 BUN 31 High 7-18 mg/dL LAB L501.1100 CREAT,SERUM 0.80 Normal 0.55-1.02 mg/dL Result Comment: The validity of the calculated GFR AND GFRAA in patients over 70 years has not been determined. Clinical correlation is essential. LAB L501.1110 EST GFR 75 Normal >60 mL/min Result Comment: Non- GFR Calc LAB L501.1115 EST GFR - AA 91 Normal >60 mL/min Result Comment: GFR Calc LAB L501.1255 Estimated CRCL 54.13 Normal ? ml/min LAB L501.1300 BUN/CRE 38.6 High 10-20 RATIO LAB L501.2200 CA 7.8 Low 8.5-10.1 mg/dL LAB L501.5300 NA 140 Normal 136-145 mmol/L LAB L501.5600 K 4.1 Normal 3.5-5.1 mmol/L LAB L501.5900 CL 109 High 98-107 mmol/L LAB L501.6100 CO2 23.0 Normal 21.0-32.0 mmol/L LAB L501.6200 GAP 8 Normal 5-15 ? Performed By: #### L500.2500 #### [facility] [address] [place], [address] ASSESSMENT AND PLAN See diagnoses and orders Encounter Diagnosis ICD-10-CM 1. Routine medical exam Z00.00 2. Essential hypertension, benign I10 lisinopril-hydrochlorothiazide (PRINZIDE,ZESTORETIC) 10-12.5 mg per tablet CBC COMP METABOLIC PANEL 3. Hypercholesterolemia E78.00 LIPID PANEL BASIC 4. Encounter for long-term current use of medication Z79.899 CBC COMP METABOLIC PANEL Patient here for yearly exam and follow up. Above issues addressed with patient. Patient involved in shared decision making for management of medical issues. History and medications reviewed. Epic updated as needed Refills taken care of and meds adjusted as indicated after reviewed history, exam and labs. Health Maintenance reviewed. Updated record and/or ordered tests as recorded. Encouraged on efforts at healthy diet and regular exercise and adequate sleep. BP controlled. Continue present management. Stay on same med for lipids. Labs for follow up. Adjust meds and diet as indicated. Elkin Wood MD 72 year old female here for INACTIVATED INFLUENZA VACCINE. [id number] Season Patient is identified by name and date of : Yes [] CONTRAINDICATIONS color enhanced section Age less than 6 months? No Allergy to eggs, chicken, chicken feathers, or chicken dander? No Allergy to thimerosal (a preservative) or formaldehyde? No History of severe reaction to any vaccine component or a previous dose of influenza vaccination? No History of Guillain-Lynnville Syndrome within 6 weeks after a previous influenza vaccine? No Current moderate or severe illness? No Current temperature greater or equal to 100.4F? No History of Bone Marrow Transplant in past 6 months or solid organ transplant in the past 3 months ? No [] VERIFICATION color enhanced section Was the answer Yes for any of the above contraindications? No contraindications present. Acceptable to proceed with vaccine. Patient/guardian agrees the above answers are true to the best of their knowledge? Yes Flu vaccine information sheet given? Yes See immunization activity in [facility] for details of immunizations adminstered today. Patient age: [age] year old For The 4877-4482 Flu Season 6-35 months old: Fluzone 0.25 ml - IM (Preservative Free) 3 years of age: Fluzone 0.5 ml - IM (Preservative Free) 3 years and older: Fluzone 0.5 ml- IM-(with Preservatives) 65+ years old: Fluzone High-Dose 0.5 ml - IM (Preservative Free) REMEMBER: If patient is less than 9 years of age and this is the first vaccine of Influenza to be received in any flu season, they should receive a second dose in one months time. CNOV Observed: 11/09/2017 Status: COMPLETED Source: [place] 9:00 AM [facility] REPOSITORY Office Visit (INTM[facility]) STEPHIE UGARTE ([id number]) 1945 F Date Time Provider Department 11/09/17 9:00 AM ELKIN WOOD During your visit today, we recorded the following information about you: Pulse Respiration Blood pressure Weight 76/minute 20/minute 118/62 80.3 kg Elkin Wood MD 11/22/2017 7:56 PM Signed HISTORY Stephie Ugarte is a 72 year old lady here for yearly exam and follow up appointment. [place]. Still hurts across lower back and down right lateral thigh. Was bruising. has been icing and heating 20 minutes each. no red flag symptoms. Dr. Brown was the last person she saw for treating back. Will see him for follow up this Thursday. Had been treated with prednisone before. Also taking Tylenol ES prn. Tramadol from Dr. Brown ([facility]) not much help. Ibuprofen 600 mg RX more effective. Wound on right leg taken 8 weeks--tripped and stick poked her. Blood pressure controlled without adverse effects from medications. PAST MEDICAL HISTORY Diagnosis Date - ASA CLASS II 09/09/2004 - Bilateral low back pain with left-sided sciatica 04/02/2015 Taken care of by surgery - Bilateral low back pain with sciatica 04/09/2015 Taken care of by surgery - Diverticulitis - Diverticulitis of colon 07/21/2009 - Essential hypertension, benign 12/09/2006 - Mild intermittent asthma without complication 03/27/2016 Current Outpatient Prescriptions: lisinopril-hydrochlorothiazide (PRINZIDE,ZESTORETIC) 10-12.5 mg per tablet Take 1 tablet by mouth once daily. fluticasone-salmeterol (ADVAIR DISKUS) 250-50 mcg/dose dsdv Inhale 1 Puff as instructed twice daily. albuterol HFA (PROVENTIL HFA, VENTOLIN HFA) 90 mcg/actuation inhaler Inhale 2 Puffs as instructed every 4 hours as needed for Wheezing/Shortness of Breath. albuterol (PROVENTIL) 2.5 mg /3 mL (0.083 %) nebulizer solution Use 3 mL via nebulizer every 6 hours as needed for Wheezing/Shortness of Breath. Use over 5-15minutes. albuterol (PROVENTIL) 2.5 mg /3 mL (0.083 %) nebulizer solution Use 3 mL via nebulizer one time only for 1 dose. No current facility-administered medications for this visit. 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 Social History Main Topics Smoking status: Never Smoker Smokeless tobacco: Never Used Comment: Mother smoked in childhood home. Spouse smoked a little. 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 PHYSICAL EXAMINATION: Blood pressure 138/70, pulse 76, resp. rate 20, weight 80.3 kg (177 lb). Body mass index is 30.86 kg/m?. Last 5 Encounter BP Readings: Date: BP: 11/09/2017 138/70 06/26/2017 112/60 02/28/2017 142/84 11/05/2016 120/72 03/11/2016 124/62 Last 5 Encounter Wt Readings: Date: Wt: 11/09/2017 80.3 kg (177 lb) 06/26/2017 82.1 kg (181 lb) 02/28/2017 84.1 kg (185 lb 6.4 oz) 11/05/2016 83 kg (183 lb) 03/11/2016 82.1 kg (181 lb) 11/09/17 0935 11/09/17 1036 BP: 138/70 118/62 Pulse: 76 Resp: 20 Weight: 80.3 kg (177 lb) General appearance: well appearing, in no acute distress, well-hydrated, well nourished Skin: Skin color, texture, turgor normal. No significant rashes or lesions. Head: Normal Eyes: Anicteric sclera. Pupils are equally round and reactive to light. Extraocular movements are intact. Ears: External ears normal. Canals clear. TM's unremarkable. Nose/Sinuses: negative Oropharynx: Lips, mucosa, and tongue normal. Upper dentures in place. Oropharynx normal. Neck: Neck supple, no adenopathy; thyroid symmetric, normal size, no bruits. Lungs: Lungs clear to auscultation Heart: negative. RRR without murmur, gallop, or rubs. No ectopy. Abdomen: Abdomen soft, non-tender. Bowel sounds normal. No masses, organomegaly Extremities: Extremities normal. No deformities, edema, or skin discoloration. Good capillary refill. healing wound right lower oliveros noted--about dime sized Musculoskeletal: grossly normal--pain across lower back and down right thigh indicated Peripheral pulses: Normal Neuro: Gait normal. Reflexes normal and symmetric. Sensation grossly intact. No gross focal neurological deficits. Labs reviewed. CBC W/DIFF, AUTOMATED Collected: 03/26/2017 5:20 AM Status: F Source: [facility] REPOSITORY TYPE CODE TESTS RESULT OUT OF RANGE REFERENCE UNITS LAB L100.1000 WBC 8.5 Normal 4.4-11.0 K/mm3 LAB L100.1200 RBC 3.53 Low 4.2-5.4 M/mm3 LAB L100.1300 HGB 10.2 Low 12.0-15.0 g/dl LAB L100.1400 HCT 30.8 Low 37-47 % LAB L100.1500 MCV 87.3 Normal 81-99 fL LAB L100.1600 MCH 28.9 Normal 27.0-32.0 pg LAB L100.1700 MCHC 33.1 Normal 32-36 g/gl LAB L100.1810 RDW CV 14.5 Normal 11.6-14.6 % LAB L100.1820 RDW SD 44.9 High 35.1-43.9 fl LAB L100.1900 PLT 189 Normal 150-450 K/mm3 LAB L100.2000 MPV 9.4 Normal 6.2-12.0 fl LAB L100.2100 NEUT% 73.5 High 47-70 % LAB L100.2200 LY% 16.5 Low 19-41 % LAB L100.2300 MONO% 8.5 Normal 0-10 % LAB L100.2400 EO% 1.2 Normal 0-5 % LAB L100.2500 BASO% 0.1 Normal 0-1 % LAB L100.2550 IM GRAN % 0.200 Normal 0.0-0.9 % Result Comment: IG% - Immature Granulocytes (promyelocytes, myelocytes and metamyelocytes) > 1% indicates that a LEFT SHIFT is Present. LAB L100.2620 Absolute Neut 6.3 Normal 2.0-7.7 X10 3/uL LAB L100.2720 Absolute Lymph 1.40 Normal 0.83-4.51 X10 3/ul Performed By: #### L100.0100 #### [facility] [address] [place], [place], [id number] BASIC METABOLIC PROFILE (BMP) Collected: 03/26/2017 5:20 AM Status: F Source: [facility] REPOSITORY TYPE CODE TESTS RESULT OUT OF RANGE REFERENCE UNITS LAB L501.0100 GLU 98 Normal 70-110 mg/dL LAB L501.1000 BUN 31 High 7-18 mg/dL LAB L501.1100 CREAT,SERUM 0.80 Normal 0.55-1.02 mg/dL Result Comment: The validity of the calculated GFR AND GFRAA in patients over 70 years has not been determined. Clinical correlation is essential. LAB L501.1110 EST GFR 75 Normal >60 mL/min Result Comment: Non- GFR Calc LAB L501.1115 EST GFR - AA 91 Normal >60 mL/min Result Comment: GFR Calc LAB L501.1255 Estimated CRCL 54.13 Normal ? ml/min LAB L501.1300 BUN/CRE 38.6 High 10-20 RATIO LAB L501.2200 CA 7.8 Low 8.5-10.1 mg/dL LAB L501.5300 NA 140 Normal 136-145 mmol/L LAB L501.5600 K 4.1 Normal 3.5-5.1 mmol/L LAB L501.5900 CL 109 High 98-107 mmol/L LAB L501.6100 CO2 23.0 Normal 21.0-32.0 mmol/L LAB L501.6200 GAP 8 Normal 5-15 ? Performed By: #### L500.2500 #### [facility] [address] [place], [place], [id number] ASSESSMENT AND PLAN See diagnoses and orders Encounter Diagnosis ICD-10-CM 1. Routine medical exam Z00.00 2. Essential hypertension, benign I10 lisinopril-hydrochlorothiazide (PRINZIDE,ZESTORETIC) 10-12.5 mg per tablet CBC COMP METABOLIC PANEL 3. Hypercholesterolemia E78.00 LIPID PANEL BASIC 4. Encounter for long-term current use of medication Z79.899 CBC COMP METABOLIC PANEL Patient here for yearly exam and follow up. Above issues addressed with patient. Patient involved in shared decision making for management of medical issues. History and medications reviewed. Epic updated as needed Refills taken care of and meds adjusted as indicated after reviewed history, exam and labs. Health Maintenance reviewed. Updated record and/or ordered tests as recorded. Encouraged on efforts at healthy diet and regular exercise and adequate sleep. BP controlled. Continue present management. Stay on same med for lipids. Labs for follow up. Adjust meds and diet as indicated. Elkin Wood MD 72 year old female here for INACTIVATED INFLUENZA VACCINE. 8621-1464 Season Patient is identified by name and date of : Yes [] CONTRAINDICATIONS color enhanced section Age less than 6 months? No Allergy to eggs, chicken, chicken feathers, or chicken dander? No Allergy to thimerosal (a preservative) or formaldehyde? No History of severe reaction to any vaccine component or a previous dose of influenza vaccination? No History of Guillain-Lynnville Syndrome within 6 weeks after a previous influenza vaccine? No Current moderate or severe illness? No Current temperature greater or equal to 100.4F? No History of Bone Marrow Transplant in past 6 months or solid organ transplant in the past 3 months ? No [] VERIFICATION color enhanced section Was the answer Yes for any of the above contraindications? No contraindications present. Acceptable to proceed with vaccine. Patient/guardian agrees the above answers are true to the best of their knowledge? Yes Flu vaccine information sheet given? Yes See immunization activity in [facility] for details of immunizations adminstered today. Patient age: [age] year old For The 8009-2097 Flu Season 6-35 months old: Fluzone 0.25 ml - IM (Preservative Free) 3 years of age: Fluzone 0.5 ml - IM (Preservative Free) 3 years and older: Fluzone 0.5 ml- IM-(with Preservatives) 65+ years old: Fluzone High-Dose 0.5 ml - IM (Preservative Free) REMEMBER: If patient is less than 9 years of age and this is the first vaccine of Influenza to be received in any flu season, they should receive a second dose in one months time. Martha Al LPN 11/09/2017 10:46 AM Signed Influenza Vaccine Documentation: ? Patient is identified by name and date of : Yes ? Patient is older than 6 months of age: Yes ? Patient denies a severe allergy to any vaccine component or to a previous dose of influenza vaccine: Yes FOR EGG ALLERGY CONCERNS, REFER TO PROVIDER. ? Denies allergy to gelatin, formaldehyde, thimerosol :Yes ? Patient is afebrile and not moderately or severely ill: Yes ? Does the patient have a history of Guillain ?Lynn[place] Syndrome (a severe paralytic illness): No ? Denies bone marrow transplant prior 6 months or solid organ transplant prior 3 months: Yes ? Denies a history of fainting after a prior injection or medical procedure? Yes If patient has fainted in the past, the CDC recommends sitting or lying down for 15 minutes after the vaccination. ? VIS sheet provided: Yes ? See Immunization Form in [facility] for details of immunizations administered today. If patient reports dizziness, vision changes or ringing in the ears post vaccination ? please have patient sit or lie down for 15 minutes. Referring Provider: SELF [200] Allergies As of Date: 11/09/2017 Noted Allergy Reaction ANESTHESIA [Other] 09/09/2004 8 - GI Upset Date Reviewed: 11/09/2017 Reviewed by: Martha Al LPN - Fully Assessed Reason for Visit: Yearly Exam [187] Imm/Inj [58] Cmt: Flu Vaccine Reason For Visit History Recorded Primary Visit Diagnosis:Routine medical exam [Z00.00] Other Visit Diagnoses:Essential hypertension, benign [I10] Hypercholesterolemia [E78.00] Encounter for long-term current use of medication [Z79.899] Need for vaccination [Z23] Order(s):lisinopril-hydrochlorothiazide (PRINZIDE,ZESTORETIC) 10-12.5 mg per tabletTake 1 tablet by mouth once daily.Disp: 90 tabletRfl: 3 fluticasone-salmeterol (ADVAIR DISKUS) 250-50 mcg/dose dsdvInhale 1 Puff as instructed twice daily.Disp: 1 InhalerRfl: 11 albuterol HFA (PROVENTIL HFA, VENTOLIN HFA) 90 mcg/actuation inhalerInhale 2 Puffs as instructed every 4 hours as needed for Wheezing/Shortness of Breath.Disp: 1 InhalerRfl: 3 CBC [SQCBC] Order #: [id number] FUTURE COMP METABOLIC PANEL [SQCMP] Order #: [id number] FUTURE LIPID PANEL BASIC [SQLIPB] Order #: [id number] FUTURE COMP METABOLIC PANEL [SQCMP] Order #: [id number] FUTURE CBC [SQCBC] Order #: [id number] FUTURE LIPID PANEL BASIC [SQLIPB] Order #: [id number] FUTURE INFLUENZA SEASONAL HIGH DOSE AGE 65+ [59115LBM] Order #: [id number] Prescriptions as of 11/09/2017 Sig: LISINOPRIL 10 MG-HYDROCHLOROT* Take 1 tablet by mouth once d* FLUTICASONE 250 MCG-SALMETERO* Inhale 1 Puff as instructed t* ALBUTEROL SULFATE HFA 90 MCG/* Inhale 2 Puffs as instructed * ALBUTEROL SULFATE 2.5 MG/3 ML* Use 3 mL via nebulizer every * Problem List As Of Date 11/09/2017 Noted Resolved GENERAL OSTEOARTHROSIS [M15.9] INVALID FOR* SYMPTOMATIC FEMALE CLIMACTERIC STATE [N95.1] INVALID FOR* ASA CLASS II [1001] INVALID FOR*01/14/2013 BENIGN HYPERTENSION [I10] INVALID FOR* Pure hyperglyceridemia [E78.1] INVALID FOR*03/04/2016 Diverticulitis of colon [K57.32] INVALID FOR*01/14/2013 Asthmatic bronchitis [J45.909] INVALID FOR*03/27/2016 Neuritis of upper extremity [M79.2] INVALID FOR* Pes anserinus tendinitis or bursitis [[id number]] INVALID FOR* Other disorder of muscle, ligament, and fascia *INVALID FOR* Hypercholesterolemia [E78.00] INVALID FOR* Bilateral low back pain without sciatica [M54.5]INVALID FOR*03/11/2016 Bilateral low back pain with left-sided sciatic*INVALID FOR*03/11/2016 Bilateral low back pain with sciatica [M54.40] INVALID FOR*03/11/2016 Persistent disorder of initiating or maintainin*INVALID FOR* Mild intermittent asthma without complication [*INVALID FOR* Acute midline low back pain with bilateral scia*INVALID FOR* Visit Notes: >> Martha Al BRANT Mon Nov 09, 2017 10:45 AM Status: Signed Influenza Vaccine Documentation: ? Patient is identified by name and date of : Yes ? Patient is older than 6 months of age: Yes ? Patient denies a severe allergy to any vaccine component or to a previous dose of influenza vaccine: Yes FOR EGG ALLERGY CONCERNS, REFER TO PROVIDER. ? Denies allergy to gelatin, formaldehyde, thimerosol :Yes ? Patient is afebrile and not moderately or severely ill: Yes ? Does the patient have a history of Guillain ?Lynnville Syndrome (a severe paralytic illness): No ? Denies bone marrow transplant prior 6 months or solid organ transplant prior 3 months: Yes ? Denies a history of fainting after a prior injection or medical procedure? Yes If patient has fainted in the past, the CDC recommends sitting or lying down for 15 minutes after the vaccination. ? VIS sheet provided: Yes ? See Immunization Form in [facility] for details of immunizations administered today. If patient reports dizziness, vision changes or ringing in the ears post vaccination ? please have patient sit or lie down for 15 minutes. Prescriptions ordered this encounter Disp Refills Start End LISINOPRIL 10 MG-HYDROCHLOROTHIAZIDE* 90 t* 3 11/09/2017 Route: ORAL Sig: Take 1 tablet by mouth once daily. FLUTICASONE 250 MCG-SALMETEROL 50 MC* 1 In* 11 11/09/2017 Route: INHALATION Sig: Inhale 1 Puff as instructed twice daily. ALBUTEROL SULFATE HFA 90 MCG/ACTUATI* 1 In* 3 11/09/2017 Route: INHALATION Sig: Inhale 2 Puffs as instructed every 4 hours as needed for Wheezing/Shortness of Breath. Medications Discontinued During This Encounter albuterol 2.5 mg /3 mL (0.083 %) INH* 3 mL 0 08/29/2010 11/09/2017 Class: In Office/Call RX Route: NEBULIZATION -UNSPEC Sig: Use 3 mL via nebulizer one time only for 1 dose. Disc: Reason for discontinue is not on file. lisinopril-hydrochlorothiazide (PRIN* 90 t* 3 02/03/2017 11/09/2017 Sig: TAKE ONE TABLET BY MOUTH ONCE DAILY Disc: Reason for discontinue is not on file. fluticasone-salmeterol (ADVAIR DISKU* 1 In* 11 03/11/2016 11/09/2017 Route: INHALATION Sig: Inhale 1 Puff as instructed twice daily. Patient taking differently: Inhale 1 Puff as instructed as needed. Disc: Reason for discontinue is not on file. albuterol HFA (PROVENTIL HFA, VENTOL* 1 In* 3 03/11/2016 11/09/2017 Route: INHALATION Sig: Inhale 2 Puffs as instructed every 4 hours as needed for Wheezing/Shortness of Breath. Disc: Reason for discontinue is not on file. naproxen (NAPROSYN) 500 mg tablet 30 t* 0 06/26/2017 11/09/2017 Route: ORAL Sig: Take 1 tablet by mouth twice daily as needed (for pain/inflammation). Take with food. Patient not taking: Reported on 07/01/2017 Disc: Reason for discontinue is not on file. Diclofenac Sodium 3 % gel 100 g 0 07/01/2017 11/09/2017 Route: TOPICAL Sig: Apply 1 application to affected area twice daily. Patient not taking: Reported on 11/09/2017 Disc: Reason for discontinue is not on file. Disposition: Return in about 6 months (around 05/09/2018) for 6 months follow up, With labs prior. Follow-up and Disposition History Recorded Encounter Status:Closed by ELKIN WOOD MD on 11/22/17 GAIL Observed: 10/27/2017 Status: COMPLETED Source: [place] 12:00 AM [facility] REPOSITORY [facility] STEPHIE UGARTE ([id number]) 1945 F Date Time Provider Department 10/27/17 ELKIN WOOD During your visit today, we recorded the following information about you: Allergies As of Date: 10/27/2017 Noted Allergy Reaction ANESTHESIA [Other] 09/09/2004 8 - GI Upset Date Reviewed: 07/01/2017 Reviewed by: Gila Ramachandran Ma - Fully Assessed Visit Diagnosis:Medication management [Z79.899] Prescriptions as of 10/27/2017 Sig: X DICLOFENAC 3 % TOPICAL GEL Apply 1 application to affect* Patient not taking: Reported on 11/09/2017 X NAPROXEN 500 MG TABLET Take 1 tablet by mouth twice * Patient not taking: Reported on 07/01/2017 X LISINOPRIL 10 MG-HYDROCHLOROT* TAKE ONE TABLET BY MOUTH ONCE* X FLUTICASONE 250 MCG-SALMETERO* Inhale 1 Puff as instructed t* Patient taking differently: Inhale 1 Puff as instructed a* X ALBUTEROL SULFATE HFA 90 MCG/* Inhale 2 Puffs as instructed * ALBUTEROL SULFATE 2.5 MG/3 ML* Use 3 mL via nebulizer every * Problem List As Of Date 10/27/2017 Noted Resolved GENERAL OSTEOARTHROSIS [M15.9] INVALID FOR* SYMPTOMATIC FEMALE CLIMACTERIC STATE [N95.1] INVALID FOR* ASA CLASS II [1001] INVALID FOR*01/14/2013 BENIGN HYPERTENSION [I10] INVALID FOR* Pure hyperglyceridemia [E78.1] INVALID FOR*03/04/2016 Diverticulitis of colon [K57.32] INVALID FOR*01/14/2013 Asthmatic bronchitis [J45.909] INVALID FOR*03/27/2016 Neuritis of upper extremity [M79.2] INVALID FOR* Pes anserinus tendinitis or bursitis [[id number]] INVALID FOR* Other disorder of muscle, ligament, and fascia *INVALID FOR* Hypercholesterolemia [E78.00] INVALID FOR* Bilateral low back pain without sciatica [M54.5]INVALID FOR*03/11/2016 Bilateral low back pain with left-sided sciatic*INVALID FOR*03/11/2016 Bilateral low back pain with sciatica [M54.40] INVALID FOR*03/11/2016 Persistent disorder of initiating or maintainin*INVALID FOR* Mild intermittent asthma without complication [*INVALID FOR* Acute midline low back pain with bilateral scia*INVALID FOR* Encounter Status:Closed by EPIC, PRODUSER on 12/04/17 PROGRESS Observed: 08/19/2017 Status: COMPLETED Source: [place] 2:[address] [facility] REPOSITORY HNO ID: [id number] Author: Hector Knutson Service: (none) Author Type: Psychologist Type: Progress Notes Filed: 08/19/2017 2:58 PM Note Text: [facility] Progress Note Stephie Ugarte 08/19/2017 [id number] Provider: Hector Knutson, PHD CPT Code: 85120 Psychiatric diagnostic evaluation Time: Approximately 50 minutes was spent in therapy. Parties Present: Patient Patient Presentation/Concerns: INITIAL EVAL FOR SPINAL CORD STIMULATOR I have seen Ms. Ugarte today regarding a Spinal Cord Stimulator. She reports that she slipped on black ice about 16 years ago and after some months had problems. Eventually she has had knee back neck and hip surgeries. She was doing fairly well until falling again and has had frequent overwhelming pain since. Stephie has had Physical Therapy, Chiropractic, a TENS unit, pills, and shots over the years. She is aware of the most likely outcome of having a Spinal Cord Stimulator, and that she will have a trial period to see if it is helpful enough. In my professional opinion, I believe that this patient is a good candidate for this procedure. She grew up as middle of 6 in [place] ... and had a daughter.. 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 and has had overwhelming levels of pain since her recent fall with only temporary help with a shot... Mental Status: Mood: variable Affect: mood-congruent Thoughts/Associations:goal directed Suicidal/Homicidal Ideation: None expressed or evidenced Other Observations: None Therapy Focus Mood/affect regulation and Coping with chronic illness MEDICATIONS: Per medical record: Current Outpatient Prescriptions: Diclofenac Sodium 3 % gel Apply 1 application to affected area twice daily. naproxen (NAPROSYN) 500 mg tablet Take 1 tablet by mouth twice daily as needed (for pain/inflammation). Take with food. (Patient not taking: Reported on 07/01/2017 ) lisinopril-hydrochlorothiazide (PRINZIDE,ZESTORETIC) 10-12.5 mg per tablet TAKE ONE TABLET BY MOUTH ONCE DAILY fluticasone-salmeterol (ADVAIR DISKUS) 250-50 mcg/dose dsdv Inhale 1 Puff as instructed twice daily. albuterol HFA (PROVENTIL HFA, VENTOLIN HFA) 90 mcg/actuation inhaler Inhale 2 Puffs as instructed every 4 hours as needed for Wheezing/Shortness of Breath. albuterol (PROVENTIL) 2.5 mg /3 mL (0.083 %) nebulizer solution Use 3 mL via nebulizer every 6 hours as needed for Wheezing/Shortness of Breath. Use over 5-15minutes. No current facility-administered medications for this visit. Psychiatric Medication Issues: see med record DIAGNOSIS: [place] I: Chronic Pain [place] II: deferred [place] III: see med record [place] IV: pain [place] V: 53 Treatment Modality/Interventions: Cognitive Behavioral Reassurance/Supportive Psychoeducation TREATMENT ASSESSMENT/PROGRESS: . Progressing satisfactorily. TREATMENT PLAN/GOALS: Continue in therapy focusing on coping with chronic pain. Next appointment: None scheduled. Pt wiill call if issues arise. Hector Knutson, PHD PROGRESS Observed: 07/01/2017 Status: COMPLETED Source: [place] 2:17 PM [facility] REPOSITORY HNO ID: [id number] Author: Gila Ramachandran Ma Service: (none) Author Type: (none) Type: Progress Notes Filed: 07/01/2017 2:19 PM Note Text: PT ASSESSMENT - CASTING ROOM Stephie presents for Application of brace. Applied [employer] Stabilizing speed pro ankle brace size medium to Left ankle. Patient tolerated well. Patient has been instructed in Care and proper application of brace. Patient signed [employer] product agreement form electronically for billing. Patient verbalized understanding. Gila Ramachandran Ma PROGRESS Observed: 07/01/2017 Status: COMPLETED Source: [place] 11:53 AM [facility] REPOSITORY HNO ID: [id number] Author: Kody Joshi V Service: (none) Author Type: Physician Type: Progress Notes Filed: 07/01/2017 11:54 AM Note Text: HPI: Stephie Ugarte presents with a chief complaint of pain over the Right Foot and Ankle. Relating it occurred 3 months ago when she fell on ice, and has been painful since that time. Ms. Ugarte further relates aching pain is worse with ambulation and improved with rest. She has been seen in the ER. X-rays were negative for fracture(s).. ROS: Constitutional: denies N/V/F. Eyes, Ears, Nose AND Throat: denies blurred vision, difficulty eating or tinnitus. Cardiovascular: denies WI, murmurs, HTN GI: denies diarrhea / constipation : denies incontinence / polyuria Dermatology: no ulcers or open lesions Musculoskeletal: see HPI Respiratory: denies asthma; emphysema; pneumonia Psychiatric: denies anxiety; depression Endocrine: denies thyroid disease or diabetes. PMH: PAST MEDICAL HISTORY Diagnosis Date - ASA CLASS II 09/09/2004 - Bilateral low back pain with left-sided sciatica 04/02/2015 Taken care of by surgery - Bilateral low back pain with sciatica 04/09/2015 Taken care of by surgery - Diverticulitis - Diverticulitis of colon 07/21/2009 - Essential hypertension, benign 12/09/2006 - Mild intermittent asthma without complication 03/27/2016 MEDICATIONS: Current Outpatient Prescriptions: lisinopril-hydrochlorothiazide (PRINZIDE,ZESTORETIC) 10-12.5 mg per tablet TAKE ONE TABLET BY MOUTH ONCE DAILY Disp: 90 tablet Rfl: 3 fluticasone-salmeterol (ADVAIR DISKUS) 250-50 mcg/dose dsdv Inhale 1 Puff as instructed twice daily. Disp: 1 Inhaler Rfl: 11 albuterol HFA (PROVENTIL HFA, VENTOLIN HFA) 90 mcg/actuation inhaler Inhale 2 Puffs as instructed every 4 hours as needed for Wheezing/Shortness of Breath. Disp: 1 Inhaler Rfl: 3 albuterol (PROVENTIL) 2.5 mg /3 mL (0.083 %) nebulizer solution Use 3 mL via nebulizer every 6 hours as needed for Wheezing/Shortness of Breath. Use over 5-15minutes. Disp: 4 Package Rfl: 5 Diclofenac Sodium 3 % gel Apply 1 application to affected area twice daily. Disp: 100 g Rfl: 0 naproxen (NAPROSYN) 500 mg tablet Take 1 tablet by mouth twice daily as needed (for pain/inflammation). Take with food. (Patient not taking: Reported on 07/01/2017 ) Disp: 30 tablet Rfl: 0 No current facility-administered medications for this visit. ALLERGIES: ALLERGIES Allergen Reactions - Anesthesia [Other] GI Upset LOWER EXTREMITY EXAM: VASC: Palpable pedal pulses bilateral; skin temperature warm to cool from proximal tuberosity to distal digits. Edema noted on Left Ankle. Pedal hair growth noted bilateral. DERM: Ecchymosis not noted at this time. and there is no evidence of skin tissue breakdown noted at this time. No interdigital maceration or open lesions noted. Toenails are clear and well groomed. ORTHO: Pain on palpation over the ATFL and CFL of the Left Ankle area. Pain with inversion / eversion of the foot of affected ankle. Anterior draw test is negative. Palpation over the 5th metatarsal base produced moderate tenderness. ROM of ankle / foot on contralateral side WI within normal limits. NEURO: Able to discern between light and dull touch. RADIOGRAPH: No acute fractures noted, medial, lateral and anterior gutter space congruous. ASSESSMENT: Left Ankle sprain with injury to the ATFL and CFL. TREATMENT: Reviewed x-ray findings and treatment options with patient. and Applied / Dispensed [facility] ankle brace Ankle rehab exercises reviewed Signed Prescriptions Disp Refills Diclofenac Sodium 3 % gel 100 g 0 Sig: Apply 1 application to affected area twice daily. Kody Joshi DO PROGRESS Observed: 07/01/2017 Status: COMPLETED Source: [place] 11:[address] [facility] [place] REPOSITORY [facility] ID: [id number] Author: Gila Ramachandran Ma Service: (none) Author Type: (none) Type: Progress Notes Filed: 07/01/2017 11:54 AM Note Text: Patient presents with: New Patient: Left ankle sprain - Ref. Benjamín GRISSOM ROOMING INTAKE FLOWSHEET DATA Risk Screening Do you have concerns about personal safety or safety in the home?: No Pain Pain Score: 5/10 Pain Location: Ankle-Left Description: Throbbing (Feels like a bad bruise) Duration Amount of Time: (Ongoing since February) Frequency: Continuous Patient states she twisted her left ankle when she fell in February. Patient states she has pain on the lateral aspect of her foot. She gets swelling in her ankle. Has difficulty with a tennis shoe that she has to slid her foot into. Patient had x-ray done on 06/26/17. Taking no med's for the pain. Patient had steroid injection yesterday on her back. DMITRI Observed: 07/01/2017 Status: COMPLETED Source: [facility] 11:20 AM [facility] REPOSITORY Office Visit () STEPHIE UGARTE ([id number]) 1945 F Date Time Provider Department 07/01/17 11:20 AM KODY JOSHI V During your visit today, we recorded the following information about you: Gila Ramachandran Ma 07/01/2017 11:54 AM Signed Patient presents with: New Patient: Left ankle sprain - Ref. Benjamín Peguero [facility] ROOMING INTAKE FLOWSHEET DATA Risk Screening Do you have concerns about personal safety or safety in the home?: No Pain Pain Score: 5/10 Pain Location: Ankle-Left Description: Throbbing (Feels like a bad bruise) Duration Amount of Time: (Ongoing since February) Frequency: Continuous Patient states she twisted her left ankle when she fell in February. Patient states she has pain on the lateral aspect of her foot. She gets swelling in her ankle. Has difficulty with a tennis shoe that she has to slid her foot into. Patient had x-ray done on 06/26/17. Taking no med's for the pain. Patient had steroid injection yesterday on her back. Kody Joshi V 07/01/2017 11:54 AM Signed HPI: Stephie Ugarte presents with a chief complaint of pain over the Right Foot and Ankle. Relating it occurred 3 months ago when she fell on ice, and has been painful since that time. Ms. Ugarte further relates aching pain is worse with ambulation and improved with rest. She has been seen in the ER. X-rays were negative for fracture(s).. ROS: Constitutional: denies N/V/F. Eyes, Ears, Nose AND Throat: denies blurred vision, difficulty eating or tinnitus. Cardiovascular: denies WI, murmurs, HTN GI: denies diarrhea / constipation : denies incontinence / polyuria Dermatology: no ulcers or open lesions Musculoskeletal: see HPI Respiratory: denies asthma; emphysema; pneumonia Psychiatric: denies anxiety; depression Endocrine: denies thyroid disease or diabetes. PMH: PAST MEDICAL HISTORY Diagnosis Date - ASA CLASS II 09/09/2004 - Bilateral low back pain with left-sided sciatica 04/02/2015 Taken care of by surgery - Bilateral low back pain with sciatica 04/09/2015 Taken care of by surgery - Diverticulitis - Diverticulitis of colon 07/21/2009 - Essential hypertension, benign 12/09/2006 - Mild intermittent asthma without complication 03/27/2016 MEDICATIONS: Current Outpatient Prescriptions: lisinopril-hydrochlorothiazide (PRINZIDE,ZESTORETIC) 10-12.5 mg per tablet TAKE ONE TABLET BY MOUTH ONCE DAILY Disp: 90 tablet Rfl: 3 fluticasone-salmeterol (ADVAIR DISKUS) 250-50 mcg/dose dsdv Inhale 1 Puff as instructed twice daily. Disp: 1 Inhaler Rfl: 11 albuterol HFA (PROVENTIL HFA, VENTOLIN HFA) 90 mcg/actuation inhaler Inhale 2 Puffs as instructed every 4 hours as needed for Wheezing/Shortness of Breath. Disp: 1 Inhaler Rfl: 3 albuterol (PROVENTIL) 2.5 mg /3 mL (0.083 %) nebulizer solution Use 3 mL via nebulizer every 6 hours as needed for Wheezing/Shortness of Breath. Use over 5-15minutes. Disp: 4 Package Rfl: 5 Diclofenac Sodium 3 % gel Apply 1 application to affected area twice daily. Disp: 100 g Rfl: 0 naproxen (NAPROSYN) 500 mg tablet Take 1 tablet by mouth twice daily as needed (for pain/inflammation). Take with food. (Patient not taking: Reported on 07/01/2017 ) Disp: 30 tablet Rfl: 0 No current facility-administered medications for this visit. ALLERGIES: ALLERGIES Allergen Reactions - Anesthesia [Other] GI Upset LOWER EXTREMITY EXAM: VASC: Palpable pedal pulses bilateral; skin temperature warm to cool from proximal tuberosity to distal digits. Edema noted on Left Ankle. Pedal hair growth noted bilateral. DERM: Ecchymosis not noted at this time. and there is no evidence of skin tissue breakdown noted at this time. No interdigital maceration or open lesions noted. Toenails are clear and well groomed. ORTHO: Pain on palpation over the ATFL and CFL of the Left Ankle area. Pain with inversion / eversion of the foot of affected ankle. Anterior draw test is negative. Palpation over the 5th metatarsal base produced moderate tenderness. ROM of ankle / foot on contralateral side WI within normal limits. NEURO: Able to discern between light and dull touch. RADIOGRAPH: No acute fractures noted, medial, lateral and anterior gutter space congruous. ASSESSMENT: Left Ankle sprain with injury to the ATFL and CFL. TREATMENT: Reviewed x-ray findings and treatment options with patient. and Applied / Dispensed [employer] ankle brace Ankle rehab exercises reviewed Signed Prescriptions Disp Refills Diclofenac Sodium 3 % gel 100 g 0 Sig: Apply 1 application to affected area twice daily. DO Duarte Hyde Ma, Linda 07/01/2017 2:19 PM Signed PT ASSESSMENT - CASTING ROOM Stephie presents for Application of brace. Applied [employer] Stabilizing speed pro ankle brace size medium to Left ankle. Patient tolerated well. Patient has been instructed in Care and proper application of brace. Patient signed [employer] product agreement form electronically for billing. Patient verbalized understanding. Gila Ramachandran Ma Referring Provider: ISADORA PEGUERO(WILLIE) [[id number]] Allergies As of Date: 07/01/2017 Noted Allergy Reaction ANESTHESIA [Other] 09/09/2004 8 - GI Upset Date Reviewed: 07/01/2017 Reviewed by: Gila Ramachandran Ma - Fully Assessed Reason for Visit: New Patient [172] Cmt: Left ankle sprain - Ref. Benjamín Peguero Primary Visit Diagnosis:Sprain of ligament of left ankle, subsequent encounter [S93.402D] Order(s):Diclofenac Sodium 3 % gelApply 1 application to affected area twice daily.Disp: 100 gRfl: 0 Prescriptions as of 07/01/2017 Sig: LISINOPRIL 10 MG-HYDROCHLOROT* TAKE ONE TABLET BY MOUTH ONCE* FLUTICASONE 250 MCG-SALMETERO* Inhale 1 Puff as instructed t* ALBUTEROL SULFATE HFA 90 MCG/* Inhale 2 Puffs as instructed * ALBUTEROL SULFATE 2.5 MG/3 ML* Use 3 mL via nebulizer every * DICLOFENAC 3 % TOPICAL GEL Apply 1 application to affect* NAPROXEN 500 MG TABLET Take 1 tablet by mouth twice * Patient not taking: Reported on 07/01/2017 Problem List As Of Date 07/01/2017 Noted Resolved GENERAL OSTEOARTHROSIS [M15.9] INVALID FOR* SYMPTOMATIC FEMALE CLIMACTERIC STATE [N95.1] INVALID FOR* ASA CLASS II [1001] INVALID FOR*01/14/2013 BENIGN HYPERTENSION [I10] INVALID FOR* Pure hyperglyceridemia [E78.1] INVALID FOR*03/04/2016 Diverticulitis of colon [K57.32] INVALID FOR*01/14/2013 Asthmatic bronchitis [J45.909] INVALID FOR*03/27/2016 Neuritis of upper extremity [M79.2] INVALID FOR* Pes anserinus tendinitis or bursitis [[id number]] INVALID FOR* Other disorder of muscle, ligament, and fascia *INVALID FOR* Hypercholesterolemia [E78.00] INVALID FOR* Bilateral low back pain without sciatica [M54.5]INVALID FOR*03/11/2016 Bilateral low back pain with left-sided sciatic*INVALID FOR*03/11/2016 Bilateral low back pain with sciatica [M54.40] INVALID FOR*03/11/2016 Persistent disorder of initiating or maintainin*INVALID FOR* Mild intermittent asthma without complication [*INVALID FOR* Acute midline low back pain with bilateral scia*INVALID FOR* Prescriptions ordered this encounter Disp Refills Start End DICLOFENAC 3 % TOPICAL GEL 100 g 0 07/01/2017 Route: TOPICAL Sig: Apply 1 application to affected area twice daily. Encounter Status:Closed by KODY JOSHI DO, V on 07/01/17 XR ANKLE 3V AP/LAT/OBL Observed: 06/26/2017 Status: F Source: [facility] 3:51 PM [facility] REPOSITORY * * *Final Report* * * DATE OF EXAM: Jun 26 2017 3:51PM WOX [id number] - XR ANKLE 3V AP/LAT/OBL LT / PROCEDURE REASON: multiple diagnoses * * * * Physician Interpretation * * * * Left tibia and fibula ankle and foot HISTORY: 71 years old Clinical information: Sprain of unspecified ligament of left ankle, initial encounter Pain in left ankle and joints of left foot Pain in left foot Pt fell 3 months ago. Continued lateral ankle and mid shaft leg pain. (accession [id number]), Pt fell in Feb. Pain across the top of the left foot. (accession [id number]), Pt fell 3 months ago. Continued lateral ankle and mid shaft leg pain. (accession [id number]) TECHNIQUE: Images: XR TIBIA FIBULA 2V AP/LAT LT, XR FOOT 3V AP/LAT/OBL LT, XR ANKLE 3V AP/LAT/OBL LT Comparison: None. RESULT: Findings: Status post total knee joint replacement with patellar resurfacing. The joint alignment anatomic. Tibia and fibula appear intact. Well-defined enthesophytes medial malleolus and lateral malleolus. Ankle mortise is maintained. There are calcaneal enthesophytes at the origin of the plantar fascia and insertion of the Achilles tendon. There is mild narrowing and hypertrophic change of the first MTP joint. No acute fracture IMPRESSION: No acute finding. Program Schedule Clerk: [facility] Transcribe Date/Time: Jun 27 2017 4:09P Dictated by : MAHI FUENTES MD This examination was interpreted and the report reviewed and electronically signed by: MAHI FUENTES MD on Jun 27 2017 4:11PM EST [id number] XR FOOT 3V AP/LAT/OBL Observed: 06/26/2017 Status: F Source: [facility] 3:[address] [facility] REPOSITORY * * *Final Report* * * DATE OF EXAM: Jun 26 2017 3:51PM WOX [id number] - XR FOOT 3V AP/LAT/OBL LT / PROCEDURE REASON: multiple diagnoses * * * * Physician Interpretation * * * * Left tibia and fibula ankle and foot HISTORY: 71 years old Clinical information: Sprain of unspecified ligament of left ankle, initial encounter Pain in left ankle and joints of left foot Pain in left foot Pt fell 3 months ago. Continued lateral ankle and mid shaft leg pain. (accession [id number]), Pt fell in Feb. Pain across the top of the left foot. (accession [id number]), Pt fell 3 months ago. Continued lateral ankle and mid shaft leg pain. (accession [id number]) TECHNIQUE: Images: XR TIBIA FIBULA 2V AP/LAT LT, XR FOOT 3V AP/LAT/OBL LT, XR ANKLE 3V AP/LAT/OBL LT Comparison: None. RESULT: Findings: Status post total knee joint replacement with patellar resurfacing. The joint alignment anatomic. Tibia and fibula appear intact. Well-defined enthesophytes medial malleolus and lateral malleolus. Ankle mortise is maintained. There are calcaneal enthesophytes at the origin of the plantar fascia and insertion of the Achilles tendon. There is mild narrowing and hypertrophic change of the first MTP joint. No acute fracture IMPRESSION: No acute finding. Program Schedule Clerk: [facility] Transcribe Date/Time: Jun 27 2017 4:09P Dictated by : MAHI FUENTES MD This examination was interpreted and the report reviewed and electronically signed by: MAHI FUENTES MD on Jun 27 2017 4:11PM EST [id number] XR TIBIA FIBULA 2V Observed: 06/26/2017 Status: F Source: [facility] AP/LAT LT 3:51 PM [facility] REPOSITORY * * *Final Report* * * DATE OF EXAM: Jun 26 2017 3:51PM WOX [id number] - XR TIBIA FIBULA 2V AP/LAT LT / PROCEDURE REASON: multiple diagnoses * * * * Physician Interpretation * * * * Left tibia and fibula ankle and foot HISTORY: 71 years old Clinical information: Sprain of unspecified ligament of left ankle, initial encounter Pain in left ankle and joints of left foot Pain in left foot Pt fell 3 months ago. Continued lateral ankle and mid shaft leg pain. (accession [id number]), Pt fell in Feb. Pain across the top of the left foot. (accession [id number]), Pt fell 3 months ago. Continued lateral ankle and mid shaft leg pain. (accession [id number]) TECHNIQUE: Images: XR TIBIA FIBULA 2V AP/LAT LT, XR FOOT 3V AP/LAT/OBL LT, XR ANKLE 3V AP/LAT/OBL LT Comparison: None. RESULT: Findings: Status post total knee joint replacement with patellar resurfacing. The joint alignment anatomic. Tibia and fibula appear intact. Well-defined enthesophytes medial malleolus and lateral malleolus. Ankle mortise is maintained. There are calcaneal enthesophytes at the origin of the plantar fascia and insertion of the Achilles tendon. There is mild narrowing and hypertrophic change of the first MTP joint. No acute fracture IMPRESSION: No acute finding. Program Schedule Clerk: [facility] Transcribe Date/Time: Jun 27 2017 4:09P Dictated by : MAHI FUENTES MD This examination was interpreted and the report reviewed and electronically signed by: MAHI FUENTES MD on Jun 27 2017 4:11PM EST [id number] PROGRESS Observed: 06/26/2017 Status: COMPLETED Source: [facility] 3:32 PM [facility] REPOSITORY HNO ID: [id number] Author: Libia Oneil (Rt), Tech Service: (none) Author Type: Stretcher Helper Type: Progress Notes Filed: 06/26/2017 3:48 PM Note Text: Radiology Service Progress Note PATIENT NAME: Stephie Ugarte DATE OF SERVICE: June 26, 2017 TIME: 3:32 PM PATIENT IDENTITY VERIFICATION COMPLETED USING TWO (2) METHODS: Patient confirmed name verbally and Date of . PATIENT GENDER DATA: Female. status: : No status: NO. PATIENT RELEVANT IMPLANT DATA REVIEWED: Not Applicable RADIOLOGY DEPARTMENT: General X-ray: Exam(s) Completed: Lower Extremity X-Ray(s): Tibia Fibula, Left, Ankle, Left and Foot, Left: PERIPHERAL IV DATA: Not applicable SIGNED BY: RT Terri June 26, 2017 3:32 PM PROGRESS Observed: 06/26/2017 Status: COMPLETED Source: [facility] 2:32 PM [facility] REPOSITORY HNO ID: [id number] Author: Isadora Peguero(Willie) Service: (none) Author Type: Physician Lime Mixer Type: Progress Notes Filed: 06/26/2017 3:40 PM Note Text: Chief Complaint Patient presents with: Musculoskeletal Problem: patient is here for left foot pain; had fall back in 03/2017; has been having swelling/pain HPI Stephie Ugarte is a 71 year old female who presents here today for Above Complaints.. Patient slipped on ice back in Mar. Reports that she inverted her left ankle during the fall. States that it has been hurting since then but she figured it was sprained and would improve on it's own. But since over the weekend the swelling and pain has worsened. Even putting shoes on caused pain. Did not get imaging of left leg after her fall. Has treated with ice, elevation, NSAIDs. Ibuprofen gives some relief Past medical history, appointments, medications, allergies reviewed. Previous Medical History PAST MEDICAL HISTORY Diagnosis Date - ASA CLASS II 09/09/2004 - Bilateral low back pain with left-sided sciatica 04/02/2015 Taken care of by surgery - Bilateral low back pain with sciatica 04/09/2015 Taken care of by surgery - Diverticulitis - Diverticulitis of colon 07/21/2009 - Essential hypertension, benign 12/09/2006 - Mild intermittent asthma without complication 03/27/2016 Previous Surgical History PAST SURGICAL HISTORY Procedure Laterality Date - APPENDECTOMY - COLONOSCOP W/ OR W/O [facility] SPEC 08/14/2009 Diverticulosis - COLONOSCOPY 09/15/03 Scanned documents - KNEE SCOPE,DIAGNOSTIC Arthroscopy, knee, x 2 both knees - LAP, SURG MOBIL SPLENIC FL DUR PTL COLECTOMY 08/16/2009 - LAPAROSCOPIC HEMICOLECTOMY 08/16/2009 - PAST SURGICAL HISTORY OF Anterior cervical fusion - REPAIR INCISIONAL HERNIA,REDUCIBLE 08/16/2009 - REPAIR ROTATOR CUFF,ACUTE Rotator cuff repair, Left - TOTAL ABDOM HYSTERECTOMY Hysterectomy, DEVANTE, right ovary remains - TOTAL HIP REPLACEMENT Left 10/18/15 [facility] - TOTAL HIP REPLACEMENT Right 01/30/2016 Dr. Cardenas - TOTAL KNEE REPLACEMENT 08/11/2011 Knee replacement, total Left - Dr. Colorado [facility] - TOTAL KNEE REPLACEMENT 08/17/2013 Knee replacement, total Right [facility] Family History FAMILY HISTORY Problem Relation Age of Onset - Emphysema Mother - COPD Father - Heart Father CHF - Heart Sister [place] 08/29, age 54 - None Brother - None Brother Patient Allergies ALLERGIES Allergen Reactions - Anesthesia [Other] GI Upset Current Medications Current Outpatient Prescriptions on File Prior to Visit: lisinopril-hydrochlorothiazide (PRINZIDE,ZESTORETIC) 10-12.5 mg per tablet TAKE ONE TABLET BY MOUTH ONCE DAILY fluticasone-salmeterol (ADVAIR DISKUS) 250-50 mcg/dose dsdv Inhale 1 Puff as instructed twice daily. albuterol HFA (PROVENTIL HFA, VENTOLIN HFA) 90 mcg/actuation inhaler Inhale 2 Puffs as instructed every 4 hours as needed for Wheezing/Shortness of Breath. albuterol (PROVENTIL) 2.5 mg /3 mL (0.083 %) nebulizer solution Use 3 mL via nebulizer every 6 hours as needed for Wheezing/Shortness of Breath. Use over 5-15minutes. No current facility-administered medications on file prior to visit. 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 Social History Main Topics Smoking status: Never Smoker Smokeless tobacco: Never Used Comment: Mother smoked in childhood home. Spouse smoked a little. 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 General Appearance: Well appearing, alert, in no acute distress, well-hydrated, well nourished.. Extremities: No deformities, edema, . Musculoskeletal: L ankle: mild swelling noted over lateral ankle. Pain with palp of distal fibula, lateral ankle and lateral foot. Pain with ankle inversion. Full ROM with pain. NVI Peripheral Pulses: Normal. Health Maintenance List HEPATITIS C SCREENING due on 1990 MAMMOGRAM due on 07/24/2010 ADULT PREVNAR-13 due on 09/20/2011 LIPID SCREEN due on 12/11/2011 PNEUMOVAX AGE 65 AND OVER WITH 5YR LOOKBACK(1) due on 10/24/2017 DIABETES SCREEN due on 12/15/2017 DTAP,TDAP,TD(2 - Td) due on 12/22/2018 COLORECTAL CANCER SCREENING,SEE MODIFIER due on 08/15/2019 BONE DENSITY Completed INFLUENZA Completed ASSESSMENT/PLAN: 1. Sprain of ligament of left ankle, initial encounter - ICD9: 845.00, ICD10: S93.402A (primary diagnosis) Discussed that I would like to get patient into a short leg boot for sprain. However, I do not have boot available therefore will consult ortho for management. Get x-rays today to rule out nonhealing fracture Start naproxen and can take norco prn - XR TIBIA FIBULA 2V AP/LAT LT - XR ANKLE GENERAL 3V AP/LAT/OBL LT - XR FOOT GENERAL 3V AP/LAT/OBL LT - NAPROXEN 500 MG TABLET - HYDROCODONE 5 MG-ACETAMINOPHEN 325 MG TABLET - CONSULT TO ORTHOPAEDICS 2. Left ankle pain, unspecified chronicity - ICD9: 719.47, ICD10: M25.572 See above - XR TIBIA FIBULA 2V AP/LAT LT - XR ANKLE GENERAL 3V AP/LAT/OBL LT - XR FOOT GENERAL 3V AP/LAT/OBL LT - NAPROXEN 500 MG TABLET - HYDROCODONE 5 MG-ACETAMINOPHEN 325 MG TABLET - CONSULT TO ORTHOPAEDICS 3. Foot pain, left - ICD9: 729.5, ICD10: M79.672 See above - XR TIBIA FIBULA 2V AP/LAT LT - XR ANKLE GENERAL 3V AP/LAT/OBL LT - XR FOOT GENERAL 3V AP/LAT/OBL LT - NAPROXEN 500 MG TABLET - HYDROCODONE 5 MG-ACETAMINOPHEN 325 MG TABLET - CONSULT TO ORTHOPAEDICS OARRS website checked and validated. All prescriptions have been APPROPRIATELY filled. No suspicious activity was identified.- 06/26/2017 by ISADORA PEGUERO PA-C Prescription instructions reviewed with patient as applicable. Patient advised if symptoms do not improve or if symptoms worsen sooner, to contact their primary care physician. Potential red flag symptoms discussed with the patient. Reviewed appropriate action plan to take if red flag symptoms occur. Patient agreeable to treatment plan. ISADORA PEGUERO PA-C The following approved medication requests have been transmitted electronically. Signed Prescriptions Disp Refills naproxen (NAPROSYN) 500 mg tablet 30 tablet 0 Sig: Take 1 tablet by mouth twice daily as needed (for pain/inflammation). Take with food. HYDROcodone-acetaminophen (NORCO) 5-325 mg per tablet 20 tablet 0 Sig: Take 1 tablet by mouth every 6 hours as needed for Pain for up to 3 days. AMINAH Class: C-II ISADORA PEGUERO PA-C CNOV Observed: 06/26/2017 Status: COMPLETED Source: [facility] 2:20 PM [facility] REPOSITORY [facility] STEPHIE UGARTE ([id number]) 1945 F Date Time Provider Department 06/26/17 2:20 PM DESTINEE PEGUERO) JEROME During your visit today, we recorded the following information about you: Temperature Pulse Respiration Blood pressure 98.9 degrees 68/minute 14/minute 112/60 Weight 82.1 kg Destinee Peguero) 06/26/2017 3:40 PM Signed Chief Complaint Patient presents with: Musculoskeletal Problem: patient is here for left foot pain; had fall back in 03/2017; has been having swelling/pain HPI Stephie Ugarte is a 71 year old female who presents here today for Above Complaints.. Patient slipped on ice back in Mar. Reports that she inverted her left ankle during the fall. States that it has been hurting since then but she figured it was sprained and would improve on it's own. But since over the weekend the swelling and pain has worsened. Even putting shoes on caused pain. Did not get imaging of left leg after her fall. Has treated with ice, elevation, NSAIDs. Ibuprofen gives some relief Past medical history, appointments, medications, allergies reviewed. Previous Medical History PAST MEDICAL HISTORY Diagnosis Date - ASA CLASS II 09/09/2004 - Bilateral low back pain with left-sided sciatica 04/02/2015 Taken care of by surgery - Bilateral low back pain with sciatica 04/09/2015 Taken care of by surgery - Diverticulitis - Diverticulitis of colon 07/21/2009 - Essential hypertension, benign 12/09/2006 - Mild intermittent asthma without complication 03/27/2016 Previous Surgical History PAST SURGICAL HISTORY Procedure Laterality Date - APPENDECTOMY - COLONOSCOP W/ OR W/O [facility] SPEC 08/14/2009 Diverticulosis - COLONOSCOPY 09/15/03 Scanned documents - KNEE SCOPE,DIAGNOSTIC Arthroscopy, knee, x 2 both knees - LAP, SURG MOBIL SPLENIC FL DUR PTL COLECTOMY 08/16/2009 - LAPAROSCOPIC HEMICOLECTOMY 08/16/2009 - PAST SURGICAL HISTORY OF Anterior cervical fusion - REPAIR INCISIONAL HERNIA,REDUCIBLE 08/16/2009 - REPAIR ROTATOR CUFF,ACUTE Rotator cuff repair, Left - TOTAL ABDOM HYSTERECTOMY Hysterectomy, DEVANTE, right ovary remains - TOTAL HIP REPLACEMENT Left 10/18/15 [facility] - TOTAL HIP REPLACEMENT Right 01/30/2016 Dr. Cardenas - TOTAL KNEE REPLACEMENT 08/11/2011 Knee replacement, total Left - Dr. Colorado [facility] - TOTAL KNEE REPLACEMENT 08/17/2013 Knee replacement, total Right [facility] Family History FAMILY HISTORY Problem Relation Age of Onset - Emphysema Mother - COPD Father - Heart Father CHF - Heart Sister [place] 08/29, age 54 - None Brother - None Brother Patient Allergies ALLERGIES Allergen Reactions - Anesthesia [Other] GI Upset Current Medications Current Outpatient Prescriptions on File Prior to Visit: lisinopril-hydrochlorothiazide (PRINZIDE,ZESTORETIC) 10-12.5 mg per tablet TAKE ONE TABLET BY MOUTH ONCE DAILY fluticasone-salmeterol (ADVAIR DISKUS) 250-50 mcg/dose dsdv Inhale 1 Puff as instructed twice daily. albuterol HFA (PROVENTIL HFA, VENTOLIN HFA) 90 mcg/actuation inhaler Inhale 2 Puffs as instructed every 4 hours as needed for Wheezing/Shortness of Breath. albuterol (PROVENTIL) 2.5 mg /3 mL (0.083 %) nebulizer solution Use 3 mL via nebulizer every 6 hours as needed for Wheezing/Shortness of Breath. Use over 5-15minutes. No current facility-administered medications on file prior to visit. 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 Social History Main Topics Smoking status: Never Smoker Smokeless tobacco: Never Used Comment: Mother smoked in childhood home. Spouse smoked a little. 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 General Appearance: Well appearing, alert, in no acute distress, well-hydrated, well nourished.. Extremities: No deformities, edema, . Musculoskeletal: L ankle: mild swelling noted over lateral ankle. Pain with palp of distal fibula, lateral ankle and lateral foot. Pain with ankle inversion. Full ROM with pain. NVI Peripheral Pulses: Normal. Health Maintenance List HEPATITIS C SCREENING due on 1990 MAMMOGRAM due on 07/24/2010 ADULT PREVNAR-13 due on 09/20/2011 LIPID SCREEN due on 12/11/2011 PNEUMOVAX AGE 65 AND OVER WITH 5YR LOOKBACK(1) due on 10/24/2017 DIABETES SCREEN due on 12/15/2017 DTAP,TDAP,TD(2 - Td) due on 12/22/2018 COLORECTAL CANCER SCREENING,SEE MODIFIER due on 08/15/2019 BONE DENSITY Completed INFLUENZA Completed ASSESSMENT/PLAN: 1. Sprain of ligament of left ankle, initial encounter - ICD9: 845.00, ICD10: S93.402A (primary diagnosis) Discussed that I would like to get patient into a short leg boot for sprain. However, I do not have boot available therefore will consult ortho for management. Get x-rays today to rule out nonhealing fracture Start naproxen and can take norco prn - XR TIBIA FIBULA 2V AP/LAT LT - XR ANKLE GENERAL 3V AP/LAT/OBL LT - XR FOOT GENERAL 3V AP/LAT/OBL LT - NAPROXEN 500 MG TABLET - HYDROCODONE 5 MG-ACETAMINOPHEN 325 MG TABLET - CONSULT TO ORTHOPAEDICS 2. Left ankle pain, unspecified chronicity - ICD9: 719.47, ICD10: M25.572 See above - XR TIBIA FIBULA 2V AP/LAT LT - XR ANKLE GENERAL 3V AP/LAT/OBL LT - XR FOOT GENERAL 3V AP/LAT/OBL LT - NAPROXEN 500 MG TABLET - HYDROCODONE 5 MG-ACETAMINOPHEN 325 MG TABLET - CONSULT TO ORTHOPAEDICS 3. Foot pain, left - ICD9: 729.5, ICD10: M79.672 See above - XR TIBIA FIBULA 2V AP/LAT LT - XR ANKLE GENERAL 3V AP/LAT/OBL LT - XR FOOT GENERAL 3V AP/LAT/OBL LT - NAPROXEN 500 MG TABLET - HYDROCODONE 5 MG-ACETAMINOPHEN 325 MG TABLET - CONSULT TO ORTHOPAEDICS OARRS website checked and validated. All prescriptions have been APPROPRIATELY filled. No suspicious activity was identified.- 06/26/2017 by ISADORA PEGUERO PA-C Prescription instructions reviewed with patient as applicable. Patient advised if symptoms do not improve or if symptoms worsen sooner, to contact their primary care physician. Potential red flag symptoms discussed with the patient. Reviewed appropriate action plan to take if red flag symptoms occur. Patient agreeable to treatment plan. ISADORA PEGUERO PA-C The following approved medication requests have been transmitted electronically. Signed Prescriptions Disp Refills naproxen (NAPROSYN) 500 mg tablet 30 tablet 0 Sig: Take 1 tablet by mouth twice daily as needed (for pain/inflammation). Take with food. HYDROcodone-acetaminophen (NORCO) 5-325 mg per tablet 20 tablet 0 Sig: Take 1 tablet by mouth every 6 hours as needed for Pain for up to 3 days. AMINAH Class: C-II ISADORA PEGUERO PA-C Referring Provider: SELF [200] Allergies As of Date: 06/26/2017 Noted Allergy Reaction ANESTHESIA [Other] 09/09/2004 8 - GI Upset Date Reviewed: 06/26/2017 Reviewed by: Juana Epstein Ma - Fully Assessed Reason for Visit: Musculoskeletal Problem [69] Cmt: patient is here for left foot pain; had fall back in 03/2017; has been having swelling/pain Primary Visit Diagnosis:Sprain of ligament of left ankle, initial encounter [S93.402A] Other Visit Diagnoses:Left ankle pain, unspecified chronicity [M25.572] Foot pain, left [M79.672] Acute midline low back pain with bilateral sciatica [M54.42, M54.41] Order(s):XR TIBIA FIBULA 2V AP/LAT LT [[id number]] Order #: [id number] FUTURE XR ANKLE GENERAL 3V AP/LAT/OBL LT [[id number]] Order #: [id number] FUTURE XR FOOT GENERAL 3V AP/LAT/OBL LT [[id number]] Order #: [id number] FUTURE naproxen (NAPROSYN) 500 mg tabletTake 1 tablet by mouth twice daily as needed (for pain/inflammation). Take with food.Disp: 30 tabletRfl: 0 HYDROcodone-acetaminophen (NORCO) 5-325 mg per tabletTake 1 tablet by mouth every 6 hours as needed for Pain for up to 3 days.Disp: 20 tabletRfl: 0 CONSULT TO ORTHOPAEDICS [9026] Order #: [id number]: 1 Prescriptions as of 06/26/2017 Sig: LISINOPRIL 10 MG-HYDROCHLOROT* TAKE ONE TABLET BY MOUTH ONCE* FLUTICASONE 250 MCG-SALMETERO* Inhale 1 Puff as instructed t* ALBUTEROL SULFATE HFA 90 MCG/* Inhale 2 Puffs as instructed * NAPROXEN 500 MG TABLET Take 1 tablet by mouth twice * HYDROCODONE 5 MG-ACETAMINOPHE* Take 1 tablet by mouth every * ALBUTEROL SULFATE 2.5 MG/3 ML* Use 3 mL via nebulizer every * Problem List As Of Date 06/26/2017 Noted Resolved GENERAL OSTEOARTHROSIS [M15.9] INVALID FOR* SYMPTOMATIC FEMALE CLIMACTERIC STATE [N95.1] INVALID FOR* ASA CLASS II [1001] INVALID FOR*01/14/2013 BENIGN HYPERTENSION [I10] INVALID FOR* Pure hyperglyceridemia [E78.1] INVALID FOR*03/04/2016 Diverticulitis of colon [K57.32] INVALID FOR*01/14/2013 Asthmatic bronchitis [J45.909] INVALID FOR*03/27/2016 Neuritis of upper extremity [M79.2] INVALID FOR* Pes anserinus tendinitis or bursitis [ZNQ0827] INVALID FOR* Other disorder of muscle, ligament, and fascia *INVALID FOR* Hypercholesterolemia [E78.00] INVALID FOR* Bilateral low back pain without sciatica [M54.5]INVALID FOR*03/11/2016 Bilateral low back pain with left-sided sciatic*INVALID FOR*03/11/2016 Bilateral low back pain with sciatica [M54.40] INVALID FOR*03/11/2016 Persistent disorder of initiating or maintainin*INVALID FOR* Mild intermittent asthma without complication [*INVALID FOR* Acute midline low back pain with bilateral scia*INVALID FOR* Prescriptions ordered this encounter Disp Refills Start End MELOXICAM 7.5 MG TABLET 06/26/2017 06/26/2017 Class: Med Update Route: ORAL Sig: Take 1 tablet by mouth once daily. With food. Disc: Lack of Efficacy TRAMADOL 50 MG TABLET 06/26/2017 06/26/2017 Class: Med Update Route: ORAL Sig: Take 1 tablet by mouth twice daily for 3 days. Disc: Lack of Efficacy GABAPENTIN 300 MG CAPSULE 06/26/2017 06/26/2017 Class: Med Update Route: ORAL Sig: Take 1 capsule by mouth daily at bedtime for 30 days. Disc: Lack of Efficacy NAPROXEN 500 MG TABLET 30 t* 0 06/26/2017 Route: ORAL Sig: Take 1 tablet by mouth twice daily as needed (for pain/inflammation). Take with food. HYDROCODONE 5 MG-ACETAMINOPHEN 325 M* 20 t* 0 06/26/2017 06/29/2017 Class: Print RX Route: ORAL Sig: Take 1 tablet by mouth every 6 hours as needed for Pain for up to 3 days. Medications Discontinued During This Encounter meloxicam (MOBIC) 7.5 mg tablet 06/26/2017 06/26/2017 Class: Med Update Route: ORAL Sig: Take 1 tablet by mouth once daily. With food. Disc: Lack of Efficacy gabapentin (NEURONTIN) 300 mg capsule 06/26/2017 06/26/2017 Class: Med Update Route: ORAL Sig: Take 1 capsule by mouth daily at bedtime for 30 days. Disc: Lack of Efficacy traMADol (ULTRAM) 50 mg tablet 06/26/2017 06/26/2017 Class: Med Update Route: ORAL Sig: Take 1 tablet by mouth twice daily for 3 days. Disc: Lack of Efficacy Disposition: Return if symptoms worsen or fail to improve. Follow-up and Disposition History Recorded Encounter Status:Closed by ISADORA CONSTANTINO on 06/26/17 12 LEAD ELECTROCARDIOGRAM Observed: 04/06/2017 Status: F Source: [place] 2:14 PM [facility] REPOSITORY [facility] Cardiovascular Services [address] [place] [id number] 12 Lead EKG 03/26/17 0637 MR#: [id number] Acct: [id number] Name: XOCHITL UGARTE Rep #: [id number] : 1945 71 From: Rosalio Stoddard MD Attending Dr: Carly Tiwari Status: DIS SEVERO Ordering Dr: Kiko Yang MD Date: 03/26/17 Location: [facility] Sex: F C Admitted: 03/24/17 Test Reason : AM Blood Pressure : / mmHG Vent. Rate : 065 BPM Atrial Rate : 065 BPM P-R Int : 184 ms QRS Dur : 110 ms QT Int : 374 ms P-R-T Axes : 024 026 012 degrees QTc Int : 388 ms Normal sinus rhythm Normal ECG Confirmed by EVAN RYAN, ROSALIO ([id number]), acquisition editor VARUN GRANT ([id number]) on 04/06/2017 2:14:10 PM Referred By: MILTON Confirmed By:ROSALIO STODDARD MD 04/06/17 1414 Date Rosalio Stoddard MD CC: Kiko Yang MD; Elkin Wood MD Signed DISCHARGE SUMMARY Observed: 03/26/2017 Status: F Source: [place] 11:06 AM [facility] REPOSITORY [facility] Medical Records Department [address] [place] [address] Discharge Summary 03/26/17 1100 MR#: [id number] Acct: [id number] Name: XOCHITL UGARTE Rep #: [id number] : 1945 71 From: Carly Tiwari PCP: Elkin Wood MD Status: ADM SEVERO Y Location: [place] [address] Discharge Date and Diagnosis - Problem List Patient Problems: Active and Suspected Problems Acute back pain (Acute) Hip pain, right (Acute) Date of Admission: 03/24/17 Date of Discharge: 03/26/17 - Primary Discharge Diagnosis Active and Suspected Problems Acute back pain (Acute) Hip pain, right (Acute) (1) Acute Intractable Lumbar Back Pain w/ RLE Radiculopathy (2) Chronic COPD/Asthma (3) Hypertension (4) Obesity (5) Chronic back pain s/p lumbar fusion - Secondary Discharge Diagnosis Chronic Problems COPD (chronic obstructive pulmonary disease) (Chronic) HTN (hypertension) (Chronic) Asthma (Chronic) Chronic back pain (Chronic) Hospital Course and Treatment Imaging Results: 03/26/17 09:00 OR-Steroi/Epid Inj/Lum Sac/1st [RAD] Urgent 03/26/17 12:30 Fluor Guidance for Spine Inj [RAD] Urgent Operations: None Procedures: EKG, - - Caudal Pain Injection Summary of Care Provided: The patient is a 71 y/o F w/ PMHx: HTN, Asthma/COPD, Obesity, OA, Chronic back pain s/p lumbar fusion who presented to the [facility] ED on 03/24/17 with history of ongoing intractable back pain whic started 3 weeks prior at which point she had fallen with onset lumbar pain increased above baseline with ongoing discomfort to the anterior thigh, right hip and groin region. Plain films in the ED w/ degenerative findings only. Admitted to [facility], maintain on fall precautions, frequent positioning, po/IV pain regimen, IV lower dose scheduled toradol, low dose flexeril, prednisone burst therapy, gabapentin, anti-emetics, bowel regimen. Dr. Lerma/Dr. Brown, Pain management consulted with caudal injection 03/26/17 afternoon. DVT US RLE obtained and preliminary negative for DVT. Dr. Sapp consulted, CT pelvis obtained without acute findings, encouraged caudal injection. PT, OT consulted and followed, given notable improvement with current interventions and caudal injection patient improved w/ discharge to home with home health requested. Upon discharge continued short duration burst steroids, IBU PRN, low dose short term flexeril, low dose TID short term neurontin with recommended follow-up with her PCP as well as ongoing evaluation per Dr. Lerma for regular injections as deemed necessary. Discharge Activity: - - Avoid aggressive activity until re- evaluation, slowly advance activity to mild to moderate until re-evaluation per primary care physician. Follow activity instructions otherwise per Dr. Brown following caudal injection. May resume sexual activity in: 10-14 days Weight Bearing Status: Weight bearing as tolerated Call your doctor if you observe: Fever of 101 or Higher, Inability to urinate, Inability to have a bowel movement, Shortness of breath, Dizziness, Fainting spells, Chest pain, Uncontrolled pain Home Medications: Medications to take at Discharge Fluticasone/Salmeterol [Advair 250/50 Mcg Diskus] 1 puff INHALATION DAILY 09/28/15 Lisinopril/Hydrochlorothiazide [Zestoretic 12/04.5 Tablet] 1 tablet PO DAILY 01/14/16 Acetaminophen [Tylenol Tablet] 650 mg PO Q6 PRN 03/24/17 Oxycodone HCl/Acetaminophen [Percocet 5-325] 1 tablet PO Q4H PRN PRN 03/24/17 Aspirin [Aspirin, Baby] 81 mg PO DAILY@0800 tab.chew 03/26/17 Cyclobenzaprine [Flexeril] 5 mg PO BID #14 tab 03/26/17 Famotidine [Pepcid] 20 mg PO BID #60 tab 03/26/17 Gabapentin [Neurontin] 200 mg PO TIDCM #21 cap 03/26/17 Ibuprofen 600 mg PO Q8H PRN #20 tab 03/26/17 Prednisone [Deltasone] 40 mg PO DAILY 5 Days tab 03/26/17 Senna/Docusate Sodium [Senokot-S] 2 tab PO BID #60 tab 03/26/17 Following Prescrptions Were Given to Patient: Ibuprofen 600 mg PO Q8H PRN #20 tab PRN Reason: Moderate Pain (4-5/10) Prednisone [Deltasone] 40 mg PO DAILY 5 Days tab Cyclobenzaprine [Flexeril] 5 mg PO BID #14 tab Famotidine [Pepcid] 20 mg PO BID #60 tab Senna/Docusate Sodium [Senokot-S] 2 tab PO BID #60 tab Gabapentin [Neurontin] 200 mg PO TIDCM #21 cap Primary Care Physician: Elkin Wood MD [Primary Care Provider] - Please follow up with your Primary Care Physician in: Follow- up with your PCP within 3-5 days to review admission. Please Follow Up With: Jan Lerma When: Follow-up with Pain Management as previously arranged or instructed. Patient Instructions: How Your Back Works, Relieving Back Pain, ED Sciatica Disposition: Home with Home Health Minutes spent on discharge:: 35 Patient Condition:: Fair Meaningful Use Info Meaningful Use Diagnoses (Choose all that apply): None applicable Code Visit OBSV E AND M: [id number] Observation care discharge 03/26/17 1106 <Electronically signed by Carly Tiwari > Date Carly Tiwari Cosigner Signature (if applicable): Date CC: Carly Tiwari; Elkin Wood MD Signed DISCHARGE INSTRUCTION Observed: 03/26/2017 Status: F Source: [place] 10:59 AM [facility] REPOSITORY [facility] Medical Records Department [address] [place] [address] Instructions for Home/Discharge Instructions 03/26/17 1051 MR#: [id number] Acct: [id number] Name: XOCHITL UGARTE Rep #: [id number] : 1945 71 From: Carly Tiwari PCP: Elkin Wood MD Status: ADM SEVERO - Discharge Diagnoses Current Active Problems: Current Active and Chronic Problems COPD (chronic obstructive pulmonary disease) (Chronic) HTN (hypertension) (Chronic) Asthma (Chronic) Chronic back pain (Chronic) Acute back pain (Acute) Hip pain, right (Acute) (1) Acute Intractable Lumbar Back Pain and RLE w/ Radiculopathy (2) Chronic COPD/Asthma (3) Hypertension (4) Obesity (5) Chronic back pain s/p lumbar fusion You will use the following diet at home:: Cardiac Your food should be the consistency of: Regular Your liquids should be the consistency of: Regular/Thin Discharge Activity: - - Avoid aggressive activity until re- evaluation, slowly advance activity to mild to moderate until re-evaluation per primary care physician. Follow activity instructions otherwise per Dr. Brown following caudal injection. May resume sexual activity in: 10-14 days Weight Bearing Status: Weight bearing as tolerated Call your doctor if you observe: Fever of 101 or Higher, Inability to urinate, Inability to have a bowel movement, Shortness of breath, Dizziness, Fainting spells, Chest pain, Uncontrolled pain Instructions: How Your Back Works, Relieving Back Pain, ED Sciatica Allergies/Adverse Reactions: Allergies No Known Allergies Allergy (Verified 01/14/16 14:26) Medications to take at Discharge Fluticasone/Salmeterol [Advair 250/50 Mcg Diskus] 1 puff INHALATION DAILY 09/28/15 Lisinopril/Hydrochlorothiazide [Zestoretic 10/12.5 Tablet] 1 tablet PO DAILY 01/14/16 Acetaminophen [Tylenol Tablet] 650 mg PO Q6 PRN 03/24/17 Oxycodone HCl/Acetaminophen [Percocet 5-325] 1 tablet PO Q4H PRN PRN 03/24/17 Aspirin [Aspirin, Baby] 81 mg PO DAILY@0800 tab.chew 03/26/17 Cyclobenzaprine [Flexeril] 5 mg PO BID #14 tab 03/26/17 Cyclobenzaprine [Flexeril] 5 mg PO BID #14 tablet 03/26/17 Famotidine [Pepcid] 20 mg PO BID #60 tab 03/26/17 Gabapentin [Neurontin] 200 mg PO TIDCM #21 cap 03/26/17 Gabapentin [Neurontin] 200 mg PO TIDCM #21 capsule 03/26/17 Ibuprofen 600 mg PO Q8H PRN #20 tab 03/26/17 Prednisone [Deltasone] 40 mg PO DAILY 5 Days tab 03/26/17 Senna/Docusate Sodium [Senokot-S] 2 tab PO BID #60 tab 03/26/17 The following prescriptions were given: Ibuprofen 600 mg PO Q8H PRN #20 tab PRN Reason: Moderate Pain (4-5/10) Prednisone [Deltasone] 40 mg PO DAILY 5 Days tab Cyclobenzaprine [Flexeril] 5 mg PO BID #14 tab Famotidine [Pepcid] 20 mg PO BID #60 tab Senna/Docusate Sodium [Senokot-S] 2 tab PO BID #60 tab Gabapentin [Neurontin] 200 mg PO TIDCM #21 cap Primary Care Physician: Elkin Wood MD [Primary Care Provider] - Please follow up with your Primary Care Physician in: Follow- up with your PCP within 3-5 days to review admission. Please Follow Up With: Jan Lerma When: Follow-up with Pain Management as previously arranged or instructed. Proposed Discharge Date: 03/26/17 03/26/17 1059 <Electronically signed by Carly Tiwari > Date Carly Tiwari CC: Tayla Brown MD; Sal Sapp DO; Elkin Wood MD FLUOR GUIDANCE FOR Observed: 03/26/2017 Status: F Source: [facility] 9:00 AM [facility] REPOSITORY [facility] [place] [address] Fluor Guidance for Spine Inj MR#: [id number] Acct: [id number] Name: XOCHITL UGARTE Rep #: [id number] : 1945 F 71 From: Jean Marie Fuentes MD PCP: Elkin Wood MD Status: ADM SEVERO Study: Fluor Guidance for Spine Inj Date of Exam: 03/26/17 Exam# [id number] Ordering Dr: Tayla Brown MD PROCEDURE: Caudal block. DATE OF EXAMINATION: March 26, 2017. INDICATION: Female, 71 years old. Chronic back pain. FLUOROSCOPY TIME (if supplied): (0:03) minutes/seconds Intraoperative imaging provided for caudal block. RAD/Fluor Guidance for Spine Inj IMPRESSION: Intraoperative imaging provided for caudal block. Electronically Signed: Jean Marie Fuentes MD at 13:47 EST Tel [phone], Service support , CC: Tayla Brown MD; Elkin Wood MD Program Schedule Clerk: Signed CBC W/DIFF, AUTOMATED Collected: 03/26/2017 Status: F Source: [facility] 5:20 AM [facility] REPOSITORY TYPE CODE TESTS RESULT OUT OF RANGE REFERENCE UNITS LAB L100.1000 4.4-11.0 K/mm3 Normal WBC 8.5 LAB L100.1200 4.2-5.4 M/mm3 Low RBC 3.53 LAB L100.1300 12.0-15.0 g/dl Low HGB 10.2 LAB L100.1400 37-47 % Low HCT 30.8 LAB L100.1500 81-99 fL Normal MCV 87.3 LAB L100.1600 27.0-32.0 pg Normal MCH 28.9 LAB L100.1700 32-36 g/gl Normal MCHC 33.1 LAB L100.1810 11.6-14.6 % Normal RDW CV 14.5 LAB L100.1820 35.1-43.9 fl High RDW SD 44.9 LAB L100.1900 150-450 K/mm3 Normal PLT 189 LAB L100.2000 6.2-12.0 fl Normal MPV 9.4 LAB L100.2100 47-70 % High NEUT% 73.5 LAB L100.2200 19-41 % Low LY% 16.5 LAB L100.2300 0-10 % Normal MONO% 8.5 LAB L100.2400 0-5 % Normal EO% 1.2 LAB L100.2500 0-1 % Normal BASO% 0.1 LAB L100.2550 0.0-0.9 % Normal IM GRAN % 0.200 Result Comment: IG% - Immature Granulocytes (promyelocytes, myelocytes and metamyelocytes) > 1% indicates that a LEFT SHIFT is Present. LAB L100.2620 2.0-7.7 X10 3/uL Normal Absolute Neut 6.3 LAB L100.2720 0.83-4.51 X10 3/ul Normal Absolute Lymph 1.40 Performed By: #### L100.0100 #### [facility] [address] [place], [place], [address] BASIC METABOLIC Collected: 03/26/2017 Status: F Source: [facility] ([facility]) 5:20 AM [facility] REPOSITORY TYPE CODE TESTS RESULT OUT OF RANGE REFERENCE UNITS LAB L501.0100 70-110 mg/dL Normal GLU 98 LAB L501.1000 7-18 mg/dL High BUN 31 LAB L501.1100 0.55-1.02 mg/dL Normal 0.80 CREAT,SERUM Result Comment: The validity of the calculated GFR AND GFRAA in patients over 70 years has not been determined. Clinical correlation is essential. LAB L501.1110 >60 mL/min Normal EST GFR 75 Result Comment: Non- GFR Calc LAB L501.1115 >60 mL/min Normal EST GFR - AA 91 Result Comment: GFR Calc LAB L501.1255 ml/min Normal Estimated CRCL 54.13 LAB L501.1300 10-20 RATIO High BUN/CRE 38.6 LAB L501.2200 8.5-10 mg/dL Low .1 CA 7.8 LAB L501.5300 136-14 mmol/L Normal 5 NA 140 LAB L501.5600 3.5-5. mmol/L Normal 1 K 4.1 LAB L501.5900 98-107 mmol/L High CL 109 LAB L501.6100 21.0-3 mmol/L Normal 2.0 CO2 23.0 LAB L501.6200 5-15 Normal GAP 8 Performed By: #### L500.2500 #### [facility] [address] [place], [address] CONSULTATION Observed: 03/25/2017 Status: F Source: [facility] 3:04 PM [facility] REPOSITORY [facility] Medical Records Department [address] [place] [address] Consultation 03/25/17 1445 MR#: [id number] Acct: [id number] Name: XOCHITL UGARTE Rep #: [id number] : 1945 71 From: Issac Cedeno PA-C PCP: Elkin Wood MD Status: ADM SEVERO Y Location: [facility] [id number] Problem List (1) Hip pain, right Status: Acute - Consult Date of Consult: 03/25/17 - Reason for Consult Consult requested by Dr. Carly Tiwari Consult 03/25/2017 Consult requested for right hip pain Impression Right hip pain status post fall History of right total hip arthroplasty Chronic low back pain, with multi-level lumbar fusion Radicular pain Plan 1. Continue all pain medications as prescribed 2. CAT scan of pelvis bilateral hips 3. Partial weightbearing right leg with walker 4. Physical therapy with range of motion 5. Continue with consult as requested by medicine for Dr. Brown 6. Dr. Sapp will follow after results of CT History This is a pleasant 71-year-old female who is well known to [facility]. This patient apparently sustained a fall 3 weeks ago, landing on her buttocks and right hip. Patient states she had mild discomfort after the fall, since the fall has had a continued progression of ongoing pain within her lower back right buttocks and groin region. This patient has been a long-standing patient of Dr. Lerma, and was seen in his office 3 days ago. Patient was told to rest continue taking her prescribed pain medications. Patient states on 03/24/2017 she was attempting to use her bathroom at home when she had severe incapacitating pain within her low back and right hip. Patient states this pain is made worse with walking or weightbearing, it is localized within the right groin region, with a severe aching sensation into her anterior right thigh, and knee. Patient did state the pain will radiate down to her foot and ankle when it becomes quite severe. Patient is denied any numbness or tingling of her lower extremities, any urinary or bowel incontinence. Patient states this is not similar to any pain she has felt with her prior radicular pain, or bilateral hip pain, prior to her bilateral hip arthroplasties. Patient states she has minimal pain with her lower back since the multilevel fusion of her lumbar spine performed in 2014. Patient states she had her bilateral knees performed the right in 2013, the left in 2011. She has had bilateral total hips the left in 2015 the right September 2015. I did review and discuss at length her pertinent past medical surgical familiar social history, and 10 review of systems. Exam Upon entering the room, I found the patient sitting comfortably in a recliner chair with both legs extended. Patient was alert oriented, cranial nerves II through XII are grossly intact, speaking in full sentences, with no obvious respiratory distress. Patient was moving all upper extremities without limitations or hesitation. The abdomen was soft nontender without masses equal femoral pulses. Patient has good range of motion of the left hip and knee without limitations well-healed incisions from previous total joint arthroplasty. The right hip was cool to touch nonerythematous there is no palpable masses or pulsating masses within the femoral or inguinal region of the right hip. Patient had a well-healed incisions of the right total hip right total knee with excellent range of motion of the right knee without pain. No calf tenderness. Sensation of lower extremities. Had increasing pain with straight leg against resistance on the right leg. Good muscle tone and strength. Imaging studies AP pelvis AP right and left hip show patient has well-seated acetabular cups and femoral stems the right acetabulum appears to be seated very nicely with no indication of loosening the femoral stem is seated nicely without indication of subsidence or toggling. Right total knee appears to be seated very nicely with no indication of loosening. Patient's AP right hip does appear to have degenerative changes of the greater troches. There is questionable translucency through the pubic rami. These images were discussed and reviewed with Dr. Sapp. Plan As otherwise discussed above. I have discussed my clinical findings and history with Dr. Sapp as well as reviewed with Dr. Carly Tiwari, at this time will proceed with a CT of the pelvis and hip. Total time spent 1 hour. With review of medical records, history and eval of patient, review of imaging studies, and medical decision making. 03/25/17 2094 <Electronically signed by Issac Cedeno PA-C> Date Issac Cedeno PA-C Cosigner Signature (if applicable): Date CC: Tayla Brown MD; Sal Sapp DO; Elkin Wood MD Signed PELVIS WITHOUT IV Observed: 03/25/2017 Status: F Source: [facility] CONTRAST 2:41 PM [facility] REPOSITORY [facility] Imaging Services [address] [place] [address] Pelvis without IV Contrast MR#: [id number] Acct: [id number] Name: XOCHITL UGARTE Rep #: [id number] : 1945 F 71 From: Jean Marie Fuentes MD PCP: Elkin Wood MD Status: ADM SEVERO Study: Pelvis without IV Contrast Date of Exam: 03/25/17 Exam# [id number] Ordering Dr: Issac Cedeno PA-C STUDY: CT PELVIS WITHOUT CONTRAST REASON FOR EXAM: Female, 71 years old. Pain in the right groin following a recent fall. RADIATION DOSAGE (If Supplied By Facility): CTDIvol = ( 22.86 ) mGy, DLP = ( 976.37 ) mGycm TECHNIQUE: Transaxial imaging of the pelvis was performed with oral contrast, and without intravenous administration of contrast material. Multiplanar coronal and sagittal images were reformatted. Individualized dose optimization techniques were used for this CT. COMPARISON: None. FINDINGS: The patient is status post bilateral total hip replacement. There is good alignment. No evidence of acute fracture or dislocation. The patient is status post fusion lower lumbar spine. Degenerative changes of the sacroiliac joints bilaterally. Prior appendectomy. CT/Pelvis without IV Contrast IMPRESSION: Status post bilateral total hip placement. No acute abnormality is seen. Electronically Signed: Jean Marie Fuentes MD at 15:48 EST Tel [phone], Service support , CC: Elkin Wood MD; Issac RIBEIRO Program Schedule Clerk: Signed VENOUS DUPLEX LOWER Observed: 03/25/2017 Status: F Source: [facility] EXTREMITY 10:25 AM [facility] REPOSITORY [facility] Cardiovascular Services [address] [place] [address] Venous Duplex US, Unilateral 03/25/17926 MR#: [id number] Acct: [id number] Name: XOCHITL UGARTE Rep #: [id number] : 1945 71 From: Logan Mclaughlin MD Attending Dr: Carly Tiwari Status: ADM SEVERO Ordering Dr: Carly Tiwari Date: 03/25/17 Location: [facility] Sex: F C Admitted: 03/24/17 Reason For Study: LEG SWELLING RIGHT LEFT GSV is normal. GSV is normal. CFV is compressible, spontaneous, phasic, CFV is compressible, spontaneous, phasic, competent and demonstrates normal competent, and demonstrates normal augmentation. augmentation. FV is compressible, spontaneous, phasic, FV is compressible, spontaneous, phasic, competent and demonstrates normal competent and demonstrates normal augmentation. augmentation. POP V is compressible, spontaneous, phasic, POP V is compressible, spontaneous, phasic, competent and demonstrates normal competent and demonstrates normal augmentation. augmentation. T/P Trunk is compressible. T/P Trunk is compressible. PTV is compressible. PTV is compressible. RT PerV is compressible. LT PerV is compressible. Procedure Exam performed portable in patient room. A preliminary report was called and/or faxed to [facility] nurse. Interpretation Summary No evidence for acute deep venous thrombosis bilateral lower extremities with patent and compressible bilateral great saphenous veins. Ordering Physician: Carly Tiwari Referring Physician: Elkin Wood M.D. Performed By: Aurea Cartagena RVT 03/25/17 1024 Date Logan Mclaughlin MD CC: Carly Tiwari; Elkin Wood MD Date Dictated: 03/25/17 0927 Date Transcribed: 03/25/17 1024 Program Schedule Clerk: Signed HISTORY AND PHYSICAL Observed: 03/24/2017 Status: F Source: [facility] EXAM 4:04 PM [facility] REPOSITORY [facility] Medical Records Department [address] [place] [id number] History and Physical 03/24/17 1212 MR#: [id number] Acct: [id number] Name: XOCHITL UGARTE Rep #: [id number] : 1945 71 From: Carly Tiwari PCP: Elkin Wood MD Status: ADM SEVERO Y Location: [place] [address] Problem List (1) COPD (chronic obstructive pulmonary disease) Status: Chronic Qualifiers: COPD type: unspecified COPD Qualified Code(s): J44.9 - Chronic obstructive pulmonary disease, unspecified (2) HTN (hypertension) Status: Chronic Qualifiers: Hypertension type: essential hypertension Qualified Code(s): I10 - Essential (primary) hypertension (3) Asthma Status: Chronic Qualifiers: Asthma severity: unspecified severity Asthma persistence: unspecified Asthma complication type: uncomplicated Qualified Code(s): J45.909 - Unspecified asthma, uncomplicated (4) Chronic back pain Status: Chronic Qualifiers: Back pain location: back pain in unspecified location Back pain laterality: unspecified Qualified Code(s): M54.9 - Dorsalgia, unspecified; G89.29 - Other chronic pain (5) Acute back pain Status: Acute Qualifiers: Back pain location: back pain in unspecified location Back pain laterality: unspecified Qualified Code(s): M54.9 - Dorsalgia, unspecified History of Present Illness Date of Admission: 03/24/17 Chief Complaint: Intractable back pain The patient is a 71 y/o F w/ PMHx: HTN, Asthma/COPD, Obesity, OA, Chronic back pain s/p lumbar fusion who presents to the [facility] ED on 03/24/17 with history of ongoing intractable back pain whic started 3 weeks prior at which point she had fallen with onset lumbar pain increased above baseline with ongoing discomfort to the anterior thigh, right hip and groin region. The pain continued and eventually she noted inability to ambulate. She was evaluated per her pain management physician with attempts to obtain prior authorization for injection; however, the discomfort continued and was intractable prompting eventual ED presentation. In the ED work-up included unremarkable plain film femur, lumbar plain film with extensive degenerative changes with postsurgical changes. In the ED patient administered morphine, dilaudid and zofran. Past Medical History Past Medical History (Chronic Problems): Chronic Problems COPD (chronic obstructive pulmonary disease) (Chronic) HTN (hypertension) (Chronic) Asthma (Chronic) Chronic back pain (Chronic) Allergies No Known Allergies Allergy (Verified 01/14/16 14:26) Home Medications: Ambulatory Orders Medication Instructions Recorded Fluticasone/Salmeterol [Advair 1 puff INHALATION DAILY 09/28/15 250/50 Mcg Diskus] Lisinopril/Hydrochlorothiazide 1 tablet PO DAILY 01/14/16 Surgical History: - - Hysterectomy, right knee arthroscopic surgery, left shoulder rotator cuff tear intervention, hernia repair, left total knee replacement, left knee arthroscopic surgery, right knee replacement, back surgery, left total hip arthroplasty, right total hip arthroplasty, appendectomy. 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 Denies: Chills, Fever, Weight Change HEENT: Denies: Head Aches, Sinus Congestion, Sinus Drainage Cardiovascular: Denies: Chest Pain, Palpitations Respiratory: Denies: Cough, Shortness of breath at rest, Sputum production Gastrointestinal: Denies: Abdominal Pain, Nausea, Vomiting Genitourinary: Denies: Dysuria Musculoskeletal: Reports: Back Pain, Leg Pain, Muscle pain. Denies: Joint Pain, Joint Tenderness Skin: Denies: Rash, Wounds Neurological: Denies: Numbness, Tingling, Focal weakness Psychiatric: Denies: Anxiety, Depression, Homicidal Ideations, Suicidal Ideations Hematologic/ Lymphatic: Denies: Easy Bruising, Easy Bleeding VTE Information - Inpt Only VTE Present on Admission: No VTE Mechan Device Prophylaxis: SCD's VTE Pharm Prophylaxis ordered?: Yes Patient Problems: Active and Suspected Problems Acute back pain (Acute) Subjective: Laying in the bed, uncomfortable appearing, worse with any attempted RLE movement. Objective: Physical Examination: General: awake, alert, oriented x 3 and cooperative, seated upright in bed, uncomfortable appearing, worse with any attempted movement of the right lower extremity. Skin: normal color, turgor, no icterus, cyanosis. HEENT: AT/NC, EOMI, PERRLA, mildly dry MM, no carotid bruits or JVD noted. Lungs: CTA bilaterally, moderate effort, moderate decrease BL bases, no rales, ronchi or wheezing. Heart: Regular rate and rhythm; no gallop, rub audible. Abdomen: soft, obese, NTTP, ND, normal BS, no HSM. Extremities: no cyanosis, clubbing, discomfort w/ RLE attempted movement including flexion, extension, pain w/ palpation. Neurological: patient awake, alert, oriented x 3; cognitive function intact; pupils equally reactive to light and accomodation; cranial nerves II-XII grossly normal, moving all 4 extremities but severely limited RLE secondary to severity of pain elicited, strength accordingly severely globally decreased, notes burning sensation R upper extremity. Psychiatric: affect appears fatigued, no acute evidence of depressive or anxiety feelings. - Physical Exam Vital Signs Temp Pulse Resp BP Pulse Ox 98.2 F 68 18 136/58 H 99 03/24/17 09:14 03/24/17 11:54 03/24/17 11:54 03/24/17 11:54 03/24/17 11:54 Oxygen Delivery Method Room Air Weight: 175 lb Body Mass Index (BMI) 30.9 Assessment/Plan Active and Suspected Problems Acute back pain (Acute) The patient is a 71 y/o F w/ PMHx: HTN, Asthma/COPD, Obesity, OA, Chronic back pain s/p lumbar fusion who presents to the [facility] ED on 03/24/17 with history of ongoing intractable back pain whic started 3 weeks prior at which point she had fallen with onset lumbar pain increased above baseline with ongoing discomfort to the anterior thigh, right hip and groin region. (1) Acute Intractable Lumbar Back Pain w/ Radiculopathy: Plain films in the ED w/ degenerative findings only. Will admit to [facility], maintain on fall precautions, frequent positioning, po/IV pain regimen, IV lower dose scheduled toradol, low dose flexeril, prednisone burst therapy, low dose gabapentin, anti-emetics, bowel regimen. Will consult PT and OT for evaluation. Will consult her pain management physician for patient evaluation and possible injection. If no improvement with noted interventions may consider consultation with Orthopedic surgery to assure no need for further more aggressive imaging. (2) Chronic COPD/Asthma: No tobacco use history. Maintain on ATC duonebs, PRN albuterol, HOB, IS parameters. (3) Hypertension: Continue home regimen including lisinopril, hydrochlorothiazide, PRN hydralazine. (4) Obesity: Weight loss and lifestyle changes encouraged. (5) Chronic back pain s/p lumbar fusion: Follows outpatient with pain management, Dr. Lerma for routine injections. (6) DVT prophylaxis: SCDs, lovenox with AM hold for possible infection ability. Code Visit OBSV E AND M: 13851 Initial observation care L3 03/24/17 1604 <Electronically signed by Carly Tiwari > Date Carly Tiwari Cosigner Signature: Date (if applicable) CC: Carly Tiwari; Elkin Wood MD Signed EMERGENCY DEPARTMENT Observed: 03/24/2017 Status: F Source: [facility] [place] SUMMARY 4:02 [facility] REPOSITORY [facility] Medical Records Department [address] [place] [address] Emergency Department Summary 03/24/17 1017 MR#: [id number] Acct: [id number] Name: XOCHITL UGARTE Rep #: [id number] : 1945 71 From: Feliberto Monterroso MD PCP: Elkin Wood MD Status: ADM SEVERO - ER Visit Summary Date of Service: 03/24/17 Chief Complaint: Back and right leg pain History of Present Illness: The patient is a [address] Wood, Dr. Queen, and Dr. Lerma. She reports that she fell approximately 3 weeks ago. Since that time she has had low back and right thigh pain. She reports that the pain became much worse 2 days ago and she is essentially unable to walk at this time. She describes it as a burning pain in her leg that is 10 out of 10 severity. Is worsened by walking or standing. She is taking Percocet and ice without relief. Patient reports that her low back pain is 8 out of 10 severity. It radiates down the front of her right leg to mid thigh. She denies any numbness, tingling, weakness. No problems with her bowels or her bladder. No groin numbness. Patient does have a history of bilateral total knee arthroplasty, bilateral total hip arthroplasty, and a lumbar fusion in 2014 at [facility]. She reports that she had been getting injections in her back by Dr. Lerma and saw the nurse practitioner yesterday who told her that they are waiting on insurance to improve more injections. Physical Examination: Vitals: Stable. Afebrile. General: Well-nourished and well-developed. Head: Normocephalic atraumatic. Neck: Supple, no lymphadenopathy. No JVD. Nontender. Cardiovascular: Regular rate and rhythm. No murmurs. Respiratory: No respiratory distress. Clear to auscultation bilaterally. Abdominal: Soft, nontender, nondistended, normal bowel sounds. No guarding, rebound, or peritoneal signs. Back: Mild tenderness palpation is diffuse over the lumbar spine. This is in the paraspinous muscular and the vertebrae. She has a negative straight leg raise bilaterally. She has 5 out of 5 dorsiflexion, plantarflexion, extensor hallucis longus bilaterally. Normal sensation light touch throughout. Extremities: Moderate tenderness palpation over the midshaft of her right thigh. She has a 2+ dorsalis pedis pulse. Skin: Normal color, no rash. Neurologic: Alert and oriented 3. Cranial nerves II through XII are intact. Normal strength and sensation. Psych: Normal affect. Test Results: Right femur x-ray shows no acute disease and the hardware is intact both of her hip and knee. LS spine x-ray shows is extensive degenerative changes with postsurgical changes and no acute disease. Emergency Department Course and Treatment: Patient was given a dose of Dilaudid IM and Zofran p.o. An [facility] report was obtained which show she is only had 2 prescriptions for opiates in the past year and those have both been associated with this injury. Patient is not even able to sit up in bed let alone ambulate. Treatment Plan: I do not think that it is safe for the patient to go home at this time. She is not able to ambulate. She was discussed with Dr. Tiwari and will be admitted for further evaluation and treatment. Disposition: Admitted in improved condition. Impression: 1. Low back pain, actable. 2. Right thigh pain. 3. Inability to ambulate. This note was generated with [employer] dictation software. It may contain incorrect words, spelling, and punctuation that were not noted in review of the chart prior to signing ED Disposition - Plan for ED Patient: Chief Complaint: Lower Extremity Injury What to do if you have Problems For any increased pain, shortness of breath, bleeding, nausea or vomiting, chest pain, or any unexpected problems, contact your Primary Care Provider. Call [facility] ([phone]) or report to the closest Emergency Room. Call 911 if necessary. 03/24/17 3294 <Electronically signed by Feliberto Monterroso MD> Date Feliberto Monterroso MD Cosigner Signature (If Indicated): Date CC: Elkin Wood MD CBC W/DIFF, AUTOMATED Collected: 03/24/2017 Status: F Source: [place] 2:40 PM [facility] REPOSITORY TYPE CODE TESTS RESULT OUT OF RANGE REFERENCE UNITS LAB L100.1000 4.4-11.0 K/mm3 Normal WBC 8.9 LAB L100.1200 4.2-5.4 M/mm3 Normal RBC 4.36 LAB L100.1300 12.0-15.0 g/dl Normal HGB 12.6 LAB L100.1400 37-47 % Normal HCT 37.9 LAB L100.1500 81-99 fL Normal MCV 86.9 LAB L100.1600 27.0-32.0 pg Normal MCH 28.9 LAB L100.1700 32-36 g/gl Normal MCHC 33.2 LAB L100.1810 11.6-14.6 % High RDW CV 14.8 LAB L100.1820 35.1-43.9 fl High RDW SD 46.5 LAB L100.1900 150-450 K/mm3 Normal PLT 251 LAB L100.2000 6.2-12.0 fl Normal MPV 9.2 LAB L100.2100 47-70 % High NEUT% 72.9 LAB L100.2200 19-41 % Low LY% 13.9 LAB L100.2300 0-10 % High MONO% 10.9 LAB L100.2400 0-5 % Normal EO% 1.5 LAB L100.2500 0-1 % Normal BASO% 0.3 LAB L100.2550 0.0-0.9 % Normal IM GRAN % 0.500 Result Comment: IG% - Immature Granulocytes (promyelocytes, myelocytes and metamyelocytes) > 1% indicates that a LEFT SHIFT is Present. LAB L100.2620 2.0-7.7 X10 3/uL Normal Absolute Neut 6.5 LAB L100.2720 0.83-4.51 X10 3/ul Normal Absolute Lymph 1.23 Performed By: #### L100.0100 #### [facility] [address] [place], [address] COMPREHENSIVE METABOLIC Collected: 03/24/2017 Status: F Source: [place] 2:40 PM [facility] REPOSITORY TYPE CODE TESTS RESULT OUT OF RANGE REFERENCE UNITS LAB L501.0100 70-110 mg/dL Normal GLU 108 LAB L501.1000 7-18 mg/dL High BUN 26 LAB L501.1100 0.55-1.02 mg/dL Normal 0.89 CREAT,SERUM Result Comment: The validity of the calculated GFR AND GFRAA in patients over 70 years has not been determined. Clinical correlation is essential. LAB L501.1110 >60 mL/min Normal EST GFR 66 Result Comment: Non- GFR Calc LAB L501.1115 >60 mL/min Normal EST GFR - AA 80 Result Comment: GFR Calc LAB L501.1255 ml/min Normal Estimated CRCL 48.65 LAB L501.1300 10-20 RATIO High BUN/CRE 29.1 LAB L501.1500 6.4-8. g/dL Normal 2 T PROT 6.8 LAB L501.1800 3.2-5. g/dL Normal 0 ALB 3.4 LAB L501.1950 2.2-4. g/dL Normal 2 GLOB 3.4 LAB L501.2000 0.9-2. RATIO Normal 4 A/G 1.0 LAB L501.2200 8.5-10 mg/dL Normal .1 CA 8.6 LAB L501.4100 15-37 U/L Normal AST 33 Result Comment: Slight Hemolysis, Result may be falsely increased. LAB L501.4305 45-117 U/L Normal ALK P 69 LAB L501.4405 13-56 U/L Normal ALT 35 Result Comment: Please note revised ALT reference range effective 2017. LAB L501.4600 0.20-1.00 mg/dL Normal T BILI 0.50 LAB L501.5300 136-145 mmol/L Normal NA 140 LAB L501.5600 3.5-5.1 mmol/L Normal K 4.6 Result Comment: Slight Hemolysis, Result may be falsely increased. LAB L501.5900 98-107 mmol/L Normal CL 105 LAB L501.6100 21.0-32.0 mmol/L Normal CO2 29.0 LAB L501.6200 5-15 Normal 6 GAP Performed By: #### L500.4050, L501.5200 #### [facility] [address] [place], [address] MAGNESIUM Collected: 03/24/2017 Status: F Source: [place] 2:40 PM [facility] REPOSITORY TYPE CODE TESTS RESULT OUT OF RANGE REFERENCE UNITS LAB L501.5200 1.6-2.6 mg/dL Normal MG 2.5 Result Comment: Please note revised Magnesium reference range effective 2017. Moderate Hemolysis, Result may be falsely increased. Performed By: #### L500.4050, L501.5200 #### [facility] [address] [place], [address] LUMBAR SPINE 2 OR 3 Observed: 03/24/2017 Status: F Source: [place] VIEWS 9:34 AM [facility] REPOSITORY [facility] Imaging Services [address] [place] [address] Lumbar Spine 2 or 3 Views MR#: [id number] Acct: [id number] Name: XOCHITL UGARTE Rep #: [id number] : 1945 F 71 From: Javier Cordero DO PCP: Elkin Wood MD Status: REG ER Study: Lumbar Spine 2 or 3 Views Date of Exam: 03/24/17 Exam# [id number] Ordering Dr: Feliberto Monterroso MD STUDY: X-RAY - LUMBAR SPINE REASON FOR EXAM: Female, 71 years old. Increasing back and right leg pain TECHNIQUE: 4 view(s) of the lumbar spine were obtained. COMPARISON: None FINDINGS: Normal lumbar lordosis. There is no substantial scoliosis. There is a normal alignment of the vertebrae. There is multilevel endplate spondylosis of the lumbar vertebrae. There is multi-level degenerative disc disease with multi-level disc space narrowing. Extensive posterior fusion from the level of L3- S1 with significant facet degenerative change. No evidence of hardware failure or loosening. The soft tissue structures are unremarkable. RAD/Lumbar Spine 2 or 3 Views IMPRESSION: Extensive degenerative changes with postsurgical changes Electronically Signed: Javier Cordero DO at 11:34 EST Tel , Service support , CC: Elkin Wood MD; Feliberto Monterroso MD Program Schedule Clerk: Signed FEMUR MIN 2 VIEWS Observed: 03/24/2017 Status: F Source: [place] 9:34 AM [facility] REPOSITORY [facility] Imaging Services [address] [place] [address] Femur Min 2 Views MR#: [id number] Acct: [id number] Name: XOCHITL UGARTE Rep #: [id number] : 1945 F 71 From: Javier Cordero DO PCP: Elkin Wood MD Status: REG ER Study: Femur Min 2 Views Date of Exam: 03/24/17 Exam# [id number] Ordering Dr: Feliberto Monterroso MD STUDY: X-RAY - RIGHT FEMUR REASON FOR STUDY: Female, 71 years old. Right leg pain after fall TECHNIQUE: Radiological exam, femur, minimum 2 views COMPARISON: None. FINDINGS: Status post right hip arthroplasty without evidence of hardware failure or loosening. Right knee arthroplasty as well. No acute fracture or dislocation. No significant soft tissue swelling RAD/Femur Min 2 Views IMPRESSION: No acute findings Electronically Signed: Javier Cordero DO at 11:36 EST Tel , Service support , CC: Elkin Wood MD; Feliberto Monterroso MD Program Schedule Clerk: Signed XR LUMBAR 3V Observed: 02/28/2017 Status: F Source: [place] AP/LAT/L5-S1 12:23 PM [facility] REPOS[facility]ORY * * *Final Report* * * DATE OF EXAM: Feb 28 2017 12:23PM WOX 5228 - XR LUMBAR 3V AP/LAT/L5-S1 / PROCEDURE REASON: multiple diagnoses * * * * Physician Interpretation * * * * INDICATION: Unspecified fall, initial encounter Low back pain EXAMINATION: XR LUMBAR 3V AP/LAT/L5-S1 COMPARISON:None RESULT: Frontal and lateral views of the lumbar spine show no evidence for acute fracture, subluxation or dislocation. The patient has undergone prior lumbar fusion. Pedicle screws are present at L3, L4, L5 and S1. Posterior present. Metal hardware is intact. Patient is status post laminectomy at L3, L4 and L5. Grade 1 anterolisthesis L4 on L5 noted. There is minimal anterolisthesis of L2 on L3. Bilateral hip prostheses are noted IMPRESSION: No acute abnormality. Prior lumbar fusion. Prior lumbar laminectomy. Metal hardware present in the lumbar spine and hips. Minimal anterolisthesis of L2 on L3. Grade 1 anterolisthesis L4-L5. Program Schedule Clerk: [facility] Transcribe Date/Time: Feb 28 2017 12:27P Dictated by : KATYA CURTIS MD This examination was interpreted and the report reviewed and electronically signed by: KATYA CURTIS MD on Feb 28 2017 12:28PM EST [id number] XR FEMUR 2V AP/LAT Observed: 02/28/2017 Status: F Source: [place] RT 12:23 PM [facility] REPOSITORY * * *Final Report* * * DATE OF EXAM: Feb 28 2017 12:23PM WOX 5333 - XR FEMUR 2V AP/LAT RT / PROCEDURE REASON: multiple diagnoses * * * * Physician Interpretation * * * * [id number] INDICATION: Unspecified fall, initial encounter EXAMINATION: XR PELVIS 1V AP, XR FEMUR 2V AP/LAT RT COMPARISON:None RESULT: Pelvis: AP pelvis shows an intact bony pelvic ring. Bilateral hip prostheses noted. There is some heterotopic bone formation superior to the greater tubercle on the right. Metal hardware appears intact Right femur: Right hip prosthesis is intact. Right femur is intact. Patient is a right knee prosthesis. IMPRESSION: No acute abnormality involving the pelvis of the right femur. Right hip prosthesis. Right knee prosthesis. Program Schedule Clerk: [facility] Transcribe Date/Time: Feb 28 2017 12:29P Dictated by : KATYA CURTIS MD This examination was interpreted and the report reviewed and electronically signed by: KATYA CURTIS MD on Feb 28 2017 12:30PM EST [id number] XR PELVIS 1V AP Observed: 02/28/2017 Status: F Source: [place] 12:23 PM [facility] REPOSITORY * * *Final Report* * * DATE OF EXAM: Feb 28 2017 12:23PM WOX 5239 - XR PELVIS 1V AP / PROCEDURE REASON: Unspecified fall, initial encounter * * * * Physician Interpretation * * * * [id number] INDICATION: Unspecified fall, initial encounter EXAMINATION: XR PELVIS 1V AP, XR FEMUR 2V AP/LAT RT COMPARISON:None RESULT: Pelvis: AP pelvis shows an intact bony pelvic ring. Bilateral hip prostheses noted. There is some heterotopic bone formation superior to the greater tubercle on the right. Metal hardware appears intact Right femur: Right hip prosthesis is intact. Right femur is intact. Patient is a right knee prosthesis. IMPRESSION: No acute abnormality involving the pelvis of the right femur. Right hip prosthesis. Right knee prosthesis. Program Schedule Clerk: [facility] Transcribe Date/Time: Feb 28 2017 12:29P Dictated by : KATYA CURTIS MD This examination was interpreted and the report reviewed and electronically signed by: KATYA CURTIS MD on Feb 28 2017 12:30PM EST [id number] PROGRESS Observed: 02/28/2017 Status: COMPLETED Source: [place] 11:42 AM [facility] REPOSITORY HNO ID: [id number] Author: Candelaria Tillman Rt Service: (none) Author Type: (none) Type: Progress Notes Filed: 02/28/2017 12:23 PM Note Text: Radiology Service Progress Note PATIENT NAME: Stephie Ugarte DATE OF SERVICE: February 28, 2017 TIME: 11:42 AM PATIENT IDENTITY VERIFICATION COMPLETED USING TWO (2) METHODS: Patient confirmed name verbally and Date of . PATIENT GENDER DATA: Female. status: : No status: NO. PATIENT RELEVANT IMPLANT DATA REVIEWED: Not Applicable RADIOLOGY DEPARTMENT: General X-ray: Exam(s) Completed: Spine X-Ray(s): Lumbar AP / LAT / L5-S1 Pelvis X-Ray: Pelvis General AP Lower Extremity X-Ray(s): Femur, Right: PERIPHERAL IV DATA: Not applicable SIGNED BY: Candelaria Tillman Rt February 28, 2017 11:42 AM PROGRESS Observed: 02/28/2017 Status: COMPLETED Source: [place] 11:[address] [facility] [place] REPOSITORY HNO ID: [id number] Author: Genoveva Reaves Service: (none) Author Type: Nurse Practitioner Type: Progress Notes Filed: 02/28/2017 4:22 PM Note Text: HPI HPI Stephie Ugarte is a 71 year old female who presents today for CC of fell on ice last week, has had right leg pain and lower back pain since fall. Has tried tylenol for relief. Symptoms are made relieved by nothing. Symptoms are worsened by movement/walking. Risk factors hx of chronic pain, seeing pain management/appt this coming Thursday. Review of Systems Constitutional: Negative for chills, fever and weight loss. Cardiovascular: Negative for leg swelling. Gastrointestinal: Negative for abdominal pain, constipation, diarrhea, nausea and vomiting. Genitourinary: Negative for dysuria, flank pain, frequency, hematuria and urgency. Musculoskeletal: Positive for back pain. Negative for joint pain and myalgias. Skin: Negative for rash. Neurological: Negative for sensory change and focal weakness. PAST MEDICAL HISTORY Diagnosis Date - ASA CLASS II 09/09/2004 - Bilateral low back pain with left-sided sciatica 04/02/2015 Taken care of by surgery - Bilateral low back pain with sciatica 04/09/2015 Taken care of by surgery - Diverticulitis - Diverticulitis of colon 07/21/2009 - Essential hypertension, benign 12/09/2006 - Mild intermittent asthma without complication 03/27/2016 PAST SURGICAL HISTORY Procedure Laterality Date - APPENDECTOMY - COLONOSCOP W/ OR W/O [facility] SPEC 08/14/2009 Diverticulosis - COLONOSCOPY 09/15/03 Scanned documents - KNEE SCOPE,DIAGNOSTIC Arthroscopy, knee, x 2 both knees - LAP, SURG MOBIL SPLENIC FL DUR PTL COLECTOMY 08/16/2009 - LAPAROSCOPIC HEMICOLECTOMY 08/16/2009 - PAST SURGICAL HISTORY OF Anterior cervical fusion - REPAIR INCISIONAL HERNIA,REDUCIBLE 08/16/2009 - REPAIR ROTATOR CUFF,ACUTE Rotator cuff repair, Left - TOTAL ABDOM HYSTERECTOMY Hysterectomy, DEVANTE, right ovary remains - TOTAL HIP REPLACEMENT Left 10/18/15 [facility] - TOTAL HIP REPLACEMENT Right 01/30/2016 Dr. Cardenas - TOTAL KNEE REPLACEMENT 08/11/2011 Knee replacement, total Left - Dr. Colorado [facility] - TOTAL KNEE REPLACEMENT 08/17/2013 Knee replacement, total Right [facility] ALLERGIES Anesthesia [Other] MEDICATIONS lisinopril-hydrochlorothiazide (PRINZIDE,ZESTORETIC) 10-12.5 mg per tablet TAKE ONE TABLET BY MOUTH ONCE DAILY fluticasone-salmeterol (ADVAIR DISKUS) 250-50 mcg/dose dsdv Inhale 1 Puff as instructed twice daily. albuterol HFA (PROVENTIL HFA, VENTOLIN HFA) 90 mcg/actuation inhaler Inhale 2 Puffs as instructed every 4 hours as needed for Wheezing/Shortness of Breath. albuterol (PROVENTIL) 2.5 mg /3 mL (0.083 %) nebulizer solution Use 3 mL via nebulizer every 6 hours as needed for Wheezing/Shortness of Breath. Use over 5-15minutes. FAMILY HISTORY Problem Relation Age of Onset - Emphysema Mother - COPD Father - Heart Father CHF - Heart Sister [place] 08/29, age 54 - None Brother - None Brother Social History Substance Use Topics - Smoking status: Never Smoker - Smokeless tobacco: Never Used Comment: Mother smoked in childhood home. Spouse smoked a little. - Alcohol use No Blood pressure 142/84, pulse 76, temperature 36.6 ?C (97.9 ?F), temperature source Tympanic, resp. rate 16, weight 84.1 kg (185 lb 6.4 oz). Physical Exam Constitutional: She is oriented to person, place, and time. No distress. Cardiovascular: Pulses: Dorsalis pedis pulses are 2+ on the right side, and 2+ on the left side. Posterior tibial pulses are 2+ on the right side, and 2+ on the left side. Abdominal: Soft. Normal appearance and bowel sounds are normal. There is no hepatosplenomegaly. There is no tenderness. There is no CVA tenderness. Musculoskeletal: Lumbar back: She exhibits decreased range of motion, tenderness, pain and spasm. She exhibits no bony tenderness, no swelling, no edema, no deformity, no laceration and normal pulse. Back: Right upper leg: She exhibits tenderness. She exhibits no bony tenderness, no swelling, no edema, no deformity and no laceration. Legs: Lumbar paraspinal muscles tender with palpation Neurological: She is alert and oriented to person, place, and time. Gait normal. Gait (once she gets up, slow to stand d/t pain. ) normal. Reflex Scores: Patellar reflexes are 2+ on the right side and 2+ on the left side. Skin: She is not diaphoretic. ASSESSMENT/PLAN: 1. Fall, initial encounter - ICD9: E888.9, ICD10: W19.XXXA (primary diagnosis) -discussed safety measures - XR FEMUR GENERAL 2V AP/LAT RT - XR LUMBAR GENERAL 3V AP/LAT/L5-S1 - XR PELVIS 1V AP 2. Acute right-sided low back pain, with sciatica presence unspecified - ICD9: 724.2, ICD10: M54.5 -treat as contusion/sprain -discussed gentle ROM. -no bony abnormality noted on xray -Rest, Ice, relief -discussed use of ibuprofen/tylenol -follow up with primary care if symptoms persist/worsen in 10-14 days - XR LUMBAR GENERAL 3V AP/LAT/L5-S1 3. Pain of right thigh - ICD9: 729.5, ICD10: M79.651 As above - XR FEMUR GENERAL 2V AP/LAT RT -keep appointment with pain management next week. Prescription instructions reviewed with patient as applicable. Patient advised if symptoms do not improve or if symptoms worsen sooner, to contact the office for further evaluation by their primary care physician. Potential red flag symptoms discussed with the patient. Reviewed appropriate action plan to take if red flag symptoms occur. Patient agreeable to treatment plan. Genoveva Reaves CNP CNOV Observed: 02/28/2017 Status: COMPLETED Source: [place] 11:00 AM [facility] REPOSITORY Office Visit (W[facility]) STEPHIE UGARTE ([id number]) 1945 F Date Time Provider Department 02/28/17 11:00 AM GENOVEVA REAVES (KATHERYN) WSTR During your visit today, we recorded the following information about you: Temperature Pulse Respiration Blood pressure 97.9 degrees 76/minute 16/minute 142/84 Weight 84.1 kg Genoveva Reaves CNP 02/28/2017 4:22 PM Signed HPI HPI Stephie Ugarte is a 71 year old female who presents today for CC of fell on ice last week, has had right leg pain and lower back pain since fall. Has tried tylenol for relief. Symptoms are made relieved by nothing. Symptoms are worsened by movement/walking. Risk factors hx of chronic pain, seeing pain management/appt this coming Thursday. Review of Systems Constitutional: Negative for chills, fever and weight loss. Cardiovascular: Negative for leg swelling. Gastrointestinal: Negative for abdominal pain, constipation, diarrhea, nausea and vomiting. Genitourinary: Negative for dysuria, flank pain, frequency, hematuria and urgency. Musculoskeletal: Positive for back pain. Negative for joint pain and myalgias. Skin: Negative for rash. Neurological: Negative for sensory change and focal weakness. PAST MEDICAL HISTORY Diagnosis Date - ASA CLASS II 09/09/2004 - Bilateral low back pain with left-sided sciatica 04/02/2015 Taken care of by surgery - Bilateral low back pain with sciatica 04/09/2015 Taken care of by surgery - Diverticulitis - Diverticulitis of colon 07/21/2009 - Essential hypertension, benign 12/09/2006 - Mild intermittent asthma without complication 03/27/2016 PAST SURGICAL HISTORY Procedure Laterality Date - APPENDECTOMY - COLONOSCOP W/ OR W/O [facility] SPEC 08/14/2009 Diverticulosis - COLONOSCOPY 09/15/03 Scanned documents - KNEE SCOPE,DIAGNOSTIC Arthroscopy, knee, x 2 both knees - LAP, SURG MOBIL SPLENIC FL DUR PTL COLECTOMY 08/16/2009 - LAPAROSCOPIC HEMICOLECTOMY 08/16/2009 - PAST SURGICAL HISTORY OF Anterior cervical fusion - REPAIR INCISIONAL HERNIA,REDUCIBLE 08/16/2009 - REPAIR ROTATOR CUFF,ACUTE Rotator cuff repair, Left - TOTAL ABDOM HYSTERECTOMY Hysterectomy, DEVANTE, right ovary remains - TOTAL HIP REPLACEMENT Left 10/18/15 [facility] - TOTAL HIP REPLACEMENT Right 01/30/2016 Dr. Cardenas - TOTAL KNEE REPLACEMENT 08/11/2011 Knee replacement, total Left - Dr. [place] [facility] - TOTAL KNEE REPLACEMENT 08/17/2013 Knee replacement, total Right [facility] ALLERGIES Anesthesia [Other] MEDICATIONS lisinopril-hydrochlorothiazide (PRINZIDE,ZESTORETIC) 10-12.5 mg per tablet TAKE ONE TABLET BY MOUTH ONCE DAILY fluticasone-salmeterol (ADVAIR DISKUS) 250-50 mcg/dose dsdv Inhale 1 Puff as instructed twice daily. albuterol HFA (PROVENTIL HFA, VENTOLIN HFA) 90 mcg/actuation inhaler Inhale 2 Puffs as instructed every 4 hours as needed for Wheezing/Shortness of Breath. albuterol (PROVENTIL) 2.5 mg /3 mL (0.083 %) nebulizer solution Use 3 mL via nebulizer every 6 hours as needed for Wheezing/Shortness of Breath. Use over 5-15minutes. FAMILY HISTORY Problem Relation Age of Onset - Emphysema Mother - COPD Father - Heart Father CHF - Heart Sister [place] 08/29, age 54 - None Brother - None Brother Social History Substance Use Topics - Smoking status: Never Smoker - Smokeless tobacco: Never Used Comment: Mother smoked in childhood home. Spouse smoked a little. - Alcohol use No Blood pressure 142/84, pulse 76, temperature 36.6 ?C (97.9 ?F), temperature source Tympanic, resp. rate 16, weight 84.1 kg (185 lb 6.4 oz). Physical Exam Constitutional: She is oriented to person, place, and time. No distress. Cardiovascular: Pulses: Dorsalis pedis pulses are 2+ on the right side, and 2+ on the left side. Posterior tibial pulses are 2+ on the right side, and 2+ on the left side. Abdominal: Soft. Normal appearance and bowel sounds are normal. There is no hepatosplenomegaly. There is no tenderness. There is no CVA tenderness. Musculoskeletal: Lumbar back: She exhibits decreased range of motion, tenderness, pain and spasm. She exhibits no bony tenderness, no swelling, no edema, no deformity, no laceration and normal pulse. Back: Right upper leg: She exhibits tenderness. She exhibits no bony tenderness, no swelling, no edema, no deformity and no laceration. Legs: Lumbar paraspinal muscles tender with palpation Neurological: She is alert and oriented to person, place, and time. Gait normal. Gait (once she gets up, slow to stand d/t pain. ) normal. Reflex Scores: Patellar reflexes are 2+ on the right side and 2+ on the left side. Skin: She is not diaphoretic. ASSESSMENT/PLAN: 1. Fall, initial encounter - ICD9: E888.9, ICD10: W19.XXXA (primary diagnosis) -discussed safety measures - XR FEMUR GENERAL 2V AP/LAT RT - XR LUMBAR GENERAL 3V AP/LAT/L5-S1 - XR PELVIS 1V AP 2. Acute right-sided low back pain, with sciatica presence unspecified - ICD9: 724.2, ICD10: M54.5 -treat as contusion/sprain -discussed gentle ROM. -no bony abnormality noted on xray -Rest, Ice, relief -discussed use of ibuprofen/tylenol -follow up with primary care if symptoms persist/worsen in 10-14 days - XR LUMBAR GENERAL 3V AP/LAT/L5-S1 3. Pain of right thigh - ICD9: 729.5, ICD10: M79.651 As above - XR FEMUR GENERAL 2V AP/LAT RT -keep appointment with pain management next week. Prescription instructions reviewed with patient as applicable. Patient advised if symptoms do not improve or if symptoms worsen sooner, to contact the office for further evaluation by their primary care physician. Potential red flag symptoms discussed with the patient. Reviewed appropriate action plan to take if red flag symptoms occur. Patient agreeable to treatment plan. KATHERYN Grace CNP 02/28/2017 12:45 PM Signed ASSESSMENT/PLAN: 1. Fall, initial encounter - ICD9: E888.9, ICD10: W19.XXXA (primary diagnosis) -discussed safety measures - XR FEMUR GENERAL 2V AP/LAT RT - XR LUMBAR GENERAL 3V AP/LAT/L5-S1 - XR PELVIS 1V AP 2. Acute right-sided low back pain, with sciatica presence unspecified - ICD9: 724.2, ICD10: M54.5 -no bony abnormality noted on xray -given stretches/exercises -Rest, Ice, relief -discussed use of ibuprofen -follow up with primary care if symptoms persist/worsen in 10-14 days - XR LUMBAR GENERAL 3V AP/LAT/L5-S1 3. Pain of right thigh - ICD9: 729.5, ICD10: M79.651 As above - XR FEMUR GENERAL 2V AP/LAT RT Genoveva Reaves CNP Referring Provider: SELF [200] Allergies As of Date: 02/28/2017 Noted Allergy Reaction ANESTHESIA [Other] 09/09/2004 8 - GI Upset Date Reviewed: 02/28/2017 Reviewed by: Gneoveva (Katheryn) - Fully Assessed Reason for Visit: lower back and right leg pain [Other] Cmt: fell on 02/21 Primary Visit Diagnosis:Fall, initial encounter [W19.XXXA] Other Visit Diagnoses:Acute right-sided low back pain, with sciatica presence unspecified [M54.5] Pain of right thigh [M79.651] Order(s):XR FEMUR GENERAL 2V AP/LAT RT [[id number]] Order #: [id number] FUTURE XR LUMBAR GENERAL 3V AP/LAT/L5-S1 [[id number]] Order #: [id number] FUTURE XR PELVIS 1V AP [[id number]] Order #: [id number] FUTURE Prescriptions as of 02/28/2017 Sig: LISINOPRIL 10 MG-HYDROCHLOROT* TAKE ONE TABLET BY MOUTH ONCE* FLUTICASONE 250 MCG-SALMETERO* Inhale 1 Puff as instructed t* ALBUTEROL SULFATE HFA 90 MCG/* Inhale 2 Puffs as instructed * ALBUTEROL SULFATE 2.5 MG/3 ML* Use 3 mL via nebulizer every * Problem List As Of Date 02/28/2017 Noted Resolved GENERAL OSTEOARTHROSIS [M15.9] INVALID FOR* SYMPTOMATIC FEMALE CLIMACTERIC STATE [N95.1] INVALID FOR* ASA CLASS II [1001] INVALID FOR*01/14/2013 BENIGN HYPERTENSION [I10] INVALID FOR* Pure hyperglyceridemia [E78.1] INVALID FOR*03/04/2016 Diverticulitis of colon [K57.32] INVALID FOR*01/14/2013 Asthmatic bronchitis [J45.909] INVALID FOR*03/27/2016 Neuritis of upper extremity [M79.2] INVALID FOR* Pes anserinus tendinitis or bursitis [SZN7785] INVALID FOR* Other disorder of muscle, ligament, and fascia *INVALID FOR* Hypercholesterolemia [E78.00] INVALID FOR* Bilateral low back pain without sciatica [M54.5]INVALID FOR*03/11/2016 Bilateral low back pain with left-sided sciatic*INVALID FOR*03/11/2016 Bilateral low back pain with sciatica [M54.40] INVALID FOR*03/11/2016 Persistent disorder of initiating or maintainin*INVALID FOR* Mild intermittent asthma without complication [*INVALID FOR* Other instructions from your clinician: ASSESSMENT/PLAN: 1. Fall, initial encounter - ICD9: E888.9, ICD10: W19.XXXA (primary diagnosis) -discussed safety measures - XR FEMUR GENERAL 2V AP/LAT RT - XR LUMBAR GENERAL 3V AP/LAT/L5-S1 - XR PELVIS 1V AP 2. Acute right-sided low back pain, with sciatica presence unspecified - ICD9: 724.2, ICD10: M54.5 -no bony abnormality noted on xray -given stretches/exercises -Rest, Ice, relief -discussed use of ibuprofen -follow up with primary care if symptoms persist/worsen in 10-14 days - XR LUMBAR GENERAL 3V AP/LAT/L5-S1 3. Pain of right thigh - ICD9: 729.5, ICD10: M79.651 As above - XR FEMUR GENERAL 2V AP/LAT RT Genoveva Reaves CNP Encounter Status:Closed by GENOVEVA REAVES CNP on 02/28/17 ALLERGIES ALLERGIES DATE TYPE / CODE NAME / CODE REACTION SEVERITY SOURCE 01/08/2018 Drug vancomycin/ Rash Unknown [place] Allergy/[id number](S [id number]( [facility] CT) RXNORM) Hospital Repository 11/29/2017 Drug No Known Unknown [place] Allergy/269984590(S Allergies/F [facility]) [id number]( Hospital XNORM) Repository 09/09/2004 Miscellaneous OTHER GI UPSET [facility] Allergy/454774990( Main [place] NOMED CT) Repository ENCOUNTERS ENCOUNTERS ADMIT/DISCHARGE ACCOUNT ADMITTING ENCOUNTER LOCATION SOURCE NUMBER CLASS 02/04/2018/02/06/20 [id number] Ambulatory [address] [place] Repository 01/26/2018/01/27/20 [id number] Ambulatory [address] Repository 01/26/2018/01/27/20 [id number] Ambulatory [address] Repository 01/19/2018 [id number] [facility] ing:MRI Repository 12/24/2017/01/27/20 [id number] Primitivo Welch Chi Inpatient [place] 18 Encounter [facility] ing:TCURoom: Repository HMU88Vwp: 1 12/12/2017/12/25/19 [id number] MARLON, Inpatient [place] 18 VALERI J Encounter [facility] Repository 11/29/2017/12/13/19 [id number] Agyepong, Inpatient [place] 18 Tony Encounter [facility] ing:AO9Xbga: Repository PS503Mmm: 1 11/29/2017 [id number] Agyepong, Ambulatory BMSBuilding:Dari Jimenez MS.[facility] Repository 11/29/2017 [id number] Agyepong, Ambulatory BMSBuilding:Dari Jimenez MS.[facility] Repository 11/29/2017 [id number] Agyepong, Ambulatory BMSBuilding:Dari Jimenez MS.[facility] Repository 11/29/2017 [id number] Agyepong, Ambulatory BMSBuilding:Dari Jimenez MS.[facility] Repository 11/29/2017 [id number] Agyepong, Ambulatory BMSBuilding:Dari Jimenez MS.[facility] Repository 11/29/2017 [id number] Agyepong, Ambulatory BMSBuilding:Dari Jimenez MS.[facility] Repository 11/29/2017 [id number] Agyepong, Ambulatory BMSBuilding:Dari Jimenez MS.[facility] Repository 11/29/2017 [id number] Agyepong, Ambulatory BMSBuilding:Dari Jimenez MS.[facility] Repository 11/29/2017 [id number] Agyepong, Ambulatory BMSBuilding:Dari Jimenez MS.[facility] Repository 11/29/2017 [id number] Agyepong, Ambulatory BMSBuilding:Dari Jimenez MS.[facility] Repository 11/29/2017 [id number] Agyepong, Ambulatory BMSBuilding:Dari Jimenez MS.[facility] Repository 11/29/2017 [id number] Agyepong, Ambulatory BMSBuilding:Dari Jimenez MS.[facility] Repository 11/29/2017 [id number] Agyepong, Ambulatory BMSBuilding:Dari Jimenez MS.CF.[facility] Repository 11/29/2017 [id number] Agyepong, Ambulatory BMSBuilding:Dari Jimenez MS.[facility] Repository 11/29/2017 [id number] Agyepong, Ambulatory BMSBuilding:Dari Jimenez MS.[facility] Repository 11/29/2017/12/13/19 [id number] Ambulatory BMSBuilding:W [address] Repository 11/29/2017/12/13/19 [id number] Ambulatory BMSBuilding:W [address] Repository 11/28/2017/11/29/19 [id number] Emergency [address] ing:ED Repository 11/13/2017/11/14/19 [id number] Ambulatory [address] ing:SDCRoom: Repository AC20 11/09/2017/11/25/19 [id number] Ambulatory [address] Repository 08/19/2017/08/22/19 [id number] Ambulatory [address] Repository 07/01/2017/07/03/19 [id number] Ambulatory [address] Repository 06/26/2017 [id number] Ambulatory [facility] Repository 06/26/2017/06/27/19 [id number] Ambulatory [address] Repository 06/26/2017/06/30/19 [id number] Ambulatory [address] Repository 03/26/2017/03/26/19 [id number] Ambulatory BMSBuilding:W [place] 18 [facility] Repository 03/24/2017/03/26/19 [id number] White, Carly Ambulatory [address] ing:KG7Nduc: Repository FP144Xpo: 1 03/24/2017 [id number] White, Carly Ambulatory BMSBuilding:Dari Brar MS.[facility] Repository 03/24/2017 [id number] White, Carly Ambulatory BMSBuilding:Dari Brar MS.[facility] Repository 03/24/2017 [id number] White, Carly Ambulatory BMSBuilding:Dari Brar MS.WIP [facility] Repository 03/24/2017/03/26/19 [id number] Ambulatory BMSBuilding:Dari [place] 18 MS.CF.[facility] Repository 02/28/2017/03/04/19 [id number] Ambulatory [address] Repository 02/28/2017/03/02/19 [id number] Ambulatory [address] Repository PAYERS PAYERS ENCOUNTER GUARANTOR PAYER SUBSCRIBER SOURCE 01/19/2018 STEPHIE Bassett Primary STEPHIE Bassett [place] [id number] Insurance:ANTHEM TETERDOB: Community [employer] [employer] [facility] [id number] Repository [place] [address]Fqb: [id number] Date:7371-19-47WA [address] () [address]01639RAEMNSB, [place] [address]VK: 01/19/2018 Secondary NOT GIVENUNK [place] Insurance:SELF PAY [facility] Number: Effective Repository Date:2018-01-18 12/24/2017 STEPHIE Bassett Primary STEPHIE Bassett [place] [id number] [address] Insurance:ANTHEM TETERDOB: Community [employer] [employer] [id number] Number: Repository [place] [address]Tgt: [id number] Date:9299-29-93TE [address] () 188134BCDFHKR, [place] [address]VZ: 12/24/2017 Secondary NOT GIVENUNK [place] Insurance:SELF PAY [facility] Number: Effective Repository Date:2017-12-24 11/29/2017 STEPHIE Bassett Primary STEPHIE Bassett [place] [id number] Insurance:ANTHEM TETERDOB: Community [employer] [employer] PPOPolicy [id number] [facility], Number: Repository [place] [address]Vdh: [id number] Date:2371-71-38GC [address] () 507500NZEOMFO, [place] [address]IB: 11/29/2017 Secondary NOT GIVENUNK [place] Insurance:SELF PAY [facility] Number: Effective Repository Date:2017-11-29 11/29/2017 STEPHIE Bassett Primary STEPHIE Bassett [place] [id number] Insurance:ANTHEM TETERDOB: Community [employer] [employer] PPOPolicy [id number] [facility], Number: Repository [place] [address]Epj: [id number] Date:9193-48-71YJ [address] () 924033VZEIZHV, [place] [address]JR: 11/29/2017 Secondary NOT GIVENUNK [place] Insurance:SELF PAY [facility] Number: Effective Repository Date:2017-11-29 11/29/2017 STEPHIE Bassett Primary STEPHIE Bassett [place] [id number] Insurance:ANTHEM TETERDOB: Community [employer] [employer] PPOPolicy [id number] [facility], Number: Repository [place] [id number]: [id number] Date:9259-26-65QS [address] () 415604ZRJHWNK, [place] [address]AO: 11/29/2017 Secondary NOT GIVENUNK [place] Insurance:SELF PAY [facility] Number: Effective Repository Date:2017-11-29 11/29/2017 STEPHIE Bassett Primary STEPHIE Bassett [place] [id number] [address] Insurance:ANTHEM TETERDOB: Community [employer] [employer] PPOPolicy [id number], Number: Repository [place] [id number]: [id number] Date:4056-88-80PU [address] () 926496IBYVSPA, [place] [address]JA: 11/29/2017 Secondary NOT GIVENUNK [place] Insurance:SELF PAY [facility] Number: Effective Repository Date:2017-11-29 11/29/2017 STEPHIE Bassett Primary STEPHIE S [place] [id number] Insurance:ANTHEM TETERDOB: Community [employer] [employer] PPOPolicy [id number] [facility] Number: Repository [place] [address]Gvb: [id number] Date:9906-24-55WL [address]OX () 453097FGFYHGGARISTEO LINDSAY [address]DT: 11/29/2017 Secondary NOT GIVENUNK [place] Insurance:SELF PAY [facility] Number: Effective Repository Date:2017-11-29 11/29/2017 STEPHIE S Primary STEPHIE S [place] [id number] Insurance:ANTHEM TETERDOB: [facility] MEDICARE OPoly [id number] [facility], Number: Repository [place] [address]Ler: [id number] Date:7859-95-70BE [address] () [address]448[address]XLBMERX, [place] [address]MZ: 11/29/2017 Secondary NOT GIVENUNK [place] Insurance:SELF PAY [facility] Number: Effective Repository Date:2017-11-29 11/29/2017 STEPHIE S Primary STEPHIE S [place] [id number] Insurance:ANTHEM TETERDOB: Community [place] [employer] PPOPolicy [id number] [facility], Number: Repository [place] [address]Xez: [id number] Date:1475-04-24JM [address]OX () 214825FVIJXATARISTEO LINDSAY [address]TD: 11/29/2017 Secondary NOT GIVENUNK [place] Insurance:SELF PAY [facility] Number: Effective Repository Date:2017-11-29 11/29/2017 STEPHIE S Primary STEPHIE S [place] [id number] [address] Insurance:ANTHEM TETERDOB: Community [employer] [employer] PPOPolicy [id number] [facility], Number: Repository [place] [address]Njl: [id number] Date:8627-58-72ZH [address]OX () 509[address]JFFMYSHARISTEO LINDSAY [address]TO: 11/29/2017 Secondary NOT GIVENUNK [place] Insurance:SELF PAY [facility] Number: Effective Repository Date:2017-11-29 11/29/2017 STEPHIE S Primary STEPHIE S [place] [id number] [address] Insurance:ANTHEM TETERDOB: Community [employer] [employer] PPOPolicy [id number] [facility], Number: Repository [place] [address]Ntl: [id number] Date:5362-92-55GF [address] () 965580KWKRAEY [place] [address]RY: 11/29/2017 Secondary NOT GIVENUNK [place] Insurance:SELF PAY [facility] Number: Effective Repository Date:2017-11-29 11/29/2017 STEPHIE S Primary STEPHIE S [place] [id number] Insurance:ANTHEM TETERDOB: Community [employer] [employer] PPOPolicy [id number] [facility], Number: Repository [place] [address]Dnu: [id number] Date:6288-70-12HU [address]OX () 492716RRLZPNA [place] [address]UB: 11/29/2017 Secondary NOT GIVENUNK [place] Insurance:SELF PAY [facility] Number: Effective Repository Date:2017-11-29 11/29/2017 STEPHIE S Primary STEPHIE S [place] [id number] Insurance:ANTHEM TETERDOB: Community [employer] [employer] PPOPolicy [id number] [facility], Number: Repository [place] [id number]: [id number] Date:0614-45-82WJ [address]OX () 714198RYWLHLQ [place] [address]ZQ: 11/29/2017 Secondary NOT GIVENUNK [place] Insurance:SELF PAY [facility] Number: Effective Repository Date:2017-11-29 11/29/2017 STEPHIE S Primary STEPHIE S [place] [id number] [address] Insurance:ANTHEM TETERDOB: Community [employer] [employer] PPOPolicy [id number] [facility], Number: Repository [place] [address]Mdc: [id number] Date:4188-41-01PK [address] () 966975TXSBJNK, [place] [address]LW: 11/29/2017 Secondary NOT GIVENUNK [place] Insurance:SELF PAY [facility] Number: Effective Repository Date:2017-11-29 11/29/2017 STEPHIE S Primary STEPHIE S [place] [id number] [address] Insurance:ANTHEM TETERDOB: Community [employer] [employer] PPOPolicy [id number] [facility], Number: Repository [place] [address]Ley: [id number] Date:1625-30-57ET [address]OX () 114285EAJTEXP, [place] [address]KF: 11/29/2017 Secondary NOT GIVENUNK [place] Insurance:SELF PAY [facility] Number: Effective Repository Date:2017-11-29 11/29/2017 STEPHIE S Primary STEPHIE S [place] [id number] [address] Insurance:ANTHEM TETERDOB: Community [employer] [employer] PPOPolicy [id number] [facility], Number: Repository [place] [address]Khe: [id number] Date:0543-59-23RM [address]OX () 099054ZOECVTT, [place] [address]WK: 11/29/2017 Secondary NOT GIVENUNK [place] Insurance:SELF PAY [facility] Number: Effective Repository Date:2017-11-29 11/29/2017 STEPHIE S Primary STEPHIE S [place] [id number] [address] Insurance:ANTHEM TETERDOB: Community [place] [employer] PPOPolicy [id number] [facility], Number: Repository [place] [address]Ifj: [id number] Date:5972-11-25KF BOX () 764886OVQYHGT, [place] [address]DQ: 11/29/2017 Secondary NOT GIVENUNK [place] Insurance:SELF PAY [facility] Number: Effective Repository Date:2017-11-29 11/29/2017 STEPHIE S Primary STEPHIE S [place] [id number] Insurance:ANTHEM TETERDOB: Community [place] [employer] PPOPolicy [id number] [facility], Number: Repository [place] [address]Qkt: [id number] Date:1366-95-93BO [address] () [address] [place] [address]DM: 11/29/2017 Secondary NOT GIVENUNK [place] Insurance:SELF PAY [facility] Number: Effective Repository Date:2017-11-29 11/29/2017 STEPHIE S Primary STEPHIE S [place] [id number] W Insurance:ANTHEM TETERDOB: Community [employer] [employer] PPOPolicy [id number] [facility], Number: Repository [place] [address]Hmy: [id number] Date:4770-46-01QJ [address] () [address] [place] [address]LC: 11/29/2017 Secondary NOT GIVENUNK [place] Insurance:SELF PAY [facility] Number: Effective Repository Date:2017-11-29 11/29/2017 STEPHIE S Primary STEPHIE S [place] [id number] [address] Insurance:ANTHEM TETERDOB: Community [employer] [employer] PPOPolicy [id number] [facility], Number: Repository [place] [address]Aep: [id number] Date:4275-47-09MT [address]OX () 857940WFHFKPD, [place] [address]BR: 11/29/2017 Secondary NOT GIVENUNK [place] Insurance:SELF PAY [facility] Number: Effective Repository Date:2017-11-29 11/28/2017 XOCHITL S Primary XOCHITL S [place] [id number] Insurance:ANTHEM TETERDOB: Community [employer] [employer] PPOPolicy [id number] [facility], Number: Repository [place] [address]Bmp: [id number] Date:9271-79-76AY BOX () 302871VHCQZVO, [place] [address]VN: 11/28/2017 Secondary NOT GIVENUNK [place] Insurance:SELF PAY [facility] Number: Effective Repository Date:2017-11-28 11/13/2017 XOCHITL [place] Primary XOCHITL [place] [id number] [address] Insurance:ANTHEM TETERDOB: Community [employer] [employer] PPOPolicy [id number] [facility], Number: Repository [place] [address]Vzl: [id number] Date:2051-95-50VZ BOX () 302236WWXKYID, [place] [address]GG: 11/13/2017 Secondary NOT GIVENUNK [place] Insurance:SELF PAY [facility] Number: Effective Repository Date:2017-11-06 03/26/2017 Xochitl Bassett Primary Xochitl Bassett [place] [id number] Insurance:ANTHEM TeterDOB: Community [place] [employer] PPOPolicy [id number] [facility] [place], Number: Repository [place] [address]Hnv: [id number] Date:2287-04-88YJ [address]OX () 446937BRVTTJF, [place] [address]BT: 03/26/2017 Secondary NOT GIVENUNK [place] Insurance:SELF PAY [facility] Number: Effective Repository Date:2017-03-26 03/24/2017 Xochitl Bassett Primary Xochitl Bassett [place] [id number] [address] Insurance:ANTHEM TeterDOB: Community [place] [employer] PPOPolicy [id number] [facility] [place], Number: Repository [place] [address]Ydq: [id number] Date:4572-03-20AQ BOX () 343641JSHUXUJ, [place] [address]JE: 03/24/2017 Secondary NOT GIVENUNK [place] Insurance:SELF PAY [facility] Number: Effective Repository Date:2017-03-24 03/24/2017 Xochitl Bassett Primary Xochitl Bassett [place] [id number] Insurance:ANTHEM TeterDOB: Community [place] [employer] PPOPolicy [id number] [facility] [place], Number: Repository [place] [address]Sjg: [id number] Date:2701-11-87RR BOX () 498099UJFJWYW, [place] [address]QC: 03/24/2017 Secondary NOT GIVENUNK [place] Insurance:SELF PAY [facility] Number: Effective Repository Date:2017-03-24 03/24/2017 Xochitl S Primary Xochitl S [place] [id number] Insurance:ANTHEM TeterDOB: Community [place] [employer] PPOPolicy [id number] [facility] [place], Number: Repository [place] [address]Jgl: [id number] Date:4109-59-21LR BOX () 900663WXGSKHS, [place] [address]LP: 03/24/2017 Secondary NOT GIVENUNK [place] Insurance:SELF PAY [facility] Number: Effective Repository Date:2017-03-24 03/24/2017 Xochitl Bassett Primary Xochitl Bassett [place] [id number] Insurance:ANTHEM TeterDOB: Community [place] [employer] PPOPolicy [id number] [facility] of [place], Number: Repository [place] [address]Qkt: [id number] Date:8084-81-29QG [address]OX () 583827SIYECKK, [place] [address]SE: 03/24/2017 Secondary NOT GIVENUNK [place] Insurance:SELF PAY [facility] Number: Effective Repository Date:2017-03-24 03/24/2017 Xochitl S Primary Xochitl S [place] [id number] Insurance:ANTHEM TeterDOB: Community [place] [employer] PPOPolicy [id number] [facility] of [place], Number: Repository [place] [address]Hlj: [id number] Date:1663-35-24VQ BOX (HP) 445604IPPLBMRARISTEO [address]CJ: 03/24/2017 Secondary NOT GIVENUNK [place] Insurance:SELF PAY [facility] Number: Effective Repository Date:2017-03-24
== END ==
PROVIDERS: Family Provider Internal Medicine; PCP Internal Medicine; Referring Provider Internal Medicine
DX: G06.1 Intraspinal abscess and granuloma (principal)
CPT/HCPCS: 72157; 72158; A9585; A4216

== ENCOUNTER 2018-02-22 15:19 | Emergency (ER) | payer MEDICARE, SELFPAY ==
[2018-02-22 15:20] VITALS: BP 182/89; PULSE 88; RESP 14; TEMP 36.4; O2SAT 97; BMI 32.1
[2018-02-22] MEDS: Morphine 4 MG/ML Syringe IV (17:58)
[2018-02-22] MEDS: Ondansetron 4 MG/2 ML Vial IV (17:58)
[2018-02-22 17:59] VITALS: BP 153/83; PULSE 68; RESP 16; O2SAT 97
[2018-02-22 18:02] LABS: Absolute Neutrophil Count 4.3 X10^3/uL (2.0-7.7); Basophil# 0.04 X10^3/uL; Basophil% 0.5 % (0-1); Eosinophil# 0.21 X10^3/uL; Eosinophils% 2.9 % (0-5); Hematocrit 30.9 % (37-47); Hemoglobin 9.8 g/dl (12.0-15.0); Lymphocyte % 23.2 % (19-41); Mean Corp Hgb Conc 31.7 g/gl (32-36); Mean Corpuscular Hgb 27.2 pg (27.0-32.0); Mean Corpuscular Volume 85.8 fL (81-99); Mean Platelet Vol. 8.7 fl (6.2-12.0); Monocyte# 1.05 X10^3/uL; Monocyte% 14.3 % (0-10); Neutrophil # 4.33 X10^3/uL (2.7-7.7); POSITIVE COUNT NO; POSITIVE DIFFERENTIAL NO; POSITIVE MORPHOLOGY NO; Platelet Count 284 K/mm3 (150-450); RBC Distribution Width CV 16.5 % (11.6-14.6); RBC Distribution Width SD 52.3 fl (35.1-43.9); White Blood Count 7.3 K/mm3 (4.4-11.0)
[2018-02-22 18:12] LABS: Anion Gap 9 (5-15); BUN 24 mg/dL (7-18); BUN/Creat Ratio 30.1 RATIO (10-20); Chloride 104 mmol/L (98-107); EST Glomerular Filtration Rate 75 mL/min (>60); Est Glom Filt Rate - Afr Amer 91 mL/min (>60); Estimated Creatinine Clearance 53.36 ml/min; Glucose 99 mg/dL (74-106); Potassium 3.8 mmol/L (3.5-5.1); Sodium Level 139 mmol/L (136-145)
--- NOTE | 2018-02-22 18:53 | DCINST.ED_ITS ---
ED Disposition - Plan for ED Patient: Chief Complaint: Back Instructions: ED Neck Back Pain General Prescriptions: Oxycodone HCl/Acetaminophen [Percocet 5/325] 1 tablet PO Q6H PRN PRN 3 Days #12 tablet PRN Reason: Pain Referrals: Ellie Daigle MD [Primary Care Provider] -
--- NOTE | 2018-02-22 18:55 | ED.VISSUMM ---
- ER Visit Summary Date of Service: 02/22/18 Chief Complaint: Back pain History of Present Illness: The patient is a 72 F presenting with back pain. Patient complains of right-sided lower back pain which has been ongoing since last March. She had a pain pump placed in October per Dr. Brown. She states this got infected and was removed in November. Following that she became septic and was admitted to [facility]. She was then transferred to TCU and was discharged from TCU 2 weeks ago to home. She recently finished a course of clindamycin. She has run out of her pain medications. She states since running out of the pain medications, her pain has increased. She denies fever. Denies chest pain or shortness of breath. Denies other complaints. Physical Examination: Vitals are stable. Patient is afebrile. Alert no acute distress. HEENT exam is unremarkable. Neck is supple, nontender Lungs are clear and equal bilaterally. Heart is regular rate and rhythm. Abdomen is soft nontender nondistended. No guarding or rebound Back: Right lower back wound clean dry and intact, no surrounding erythema Extremities are unremarkable. Skin is warm and dry. No focal neurologic deficit. Normal strength and sensation Remainder of exam is unremarkable. Emergency Department Course and Treatment: CBC normal except hemoglobin 9.8. Chemistries unremarkable. Patient given morphine, Zofran. She had improvement of her symptoms. She is comfortable with discharge home. She will follow-up with her primary care physician. She is advised signs and symptoms for which return to ED. Disposition: Discharge home Impression: Back pain This note was generated with [employer] dictation software. It may contain incorrect words, spelling, and punctuation that were not noted in review of the chart prior to signing ED Disposition - Plan for ED Patient: Disposition: Home or Assisted Living Chief Complaint: Back Instructions: ED Neck Back Pain General Prescriptions: Oxycodone HCl/Acetaminophen [Percocet 5/325] 1 tablet PO Q6H PRN PRN 3 Days #12 tablet PRN Reason: Pain Referrals: Ellie Daigle MD [Primary Care Provider] -
--- NOTE | 2018-02-22 18:58 | ED.DCSUM_ITS ---
- ER Visit Summary Date of Service: 02/22/18 Chief Complaint: Back pain History of Present Illness: The patient is a 72 F presenting with back pain. Patient complains of right-sided lower back pain which has been ongoing since last March. She had a pain pump placed in October per Dr. Brown. She sta constanza this got infected and was removed in November. Following that she became septic and was admitted to [facility]. She was then transferred to TCU and was discharged from TCU 2 weeks ago to home. She recently finished a course of clindamycin. She has run out of her pain medications. She states since running out of the pain medications, her pain has increased. She denies fever. Denies chest pain or shortness of breath. Denies other complaints. Physical Examination: Vitals are stable. Patient is afebrile. Alert no acute distress. HEENT exam is unremarkable. Neck is supple, nontender Lungs are clear and equal bilaterally. Heart is regular rate and rhythm. Abdomen is soft nontender nondistended. No guarding or rebound Back: Right lower back wound clean dry and intact, no surrounding erythema Extremities are unremarkable. Skin is warm and dry. No focal neurologic deficit. Normal strength and sensation Remainder of exam is unremarkable. Emergency Department Course and Treatment: CBC normal except hemoglobin 9.8. Chemistries unremarkable. Patient given morphine, Zofran. She had improvement of her symptoms. She is comfortable with discharge home. She will follow-up with her primary care physician. She is advised signs and symptoms for which return to ED. Disposition: Discharge home Impression: Back pain This note was generated with [employer] dictation software. It may contain incorrect words, spelling, and punctuation that were not noted in review of the chart prior to signing ED Disposition - Plan for ED Patient: Disposition: Home or Assisted Living Chief Complaint: Back Instructions: ED Neck Back Pain General Prescriptions: Oxycodone HCl/Acetaminophen [Percocet 5/325] 1 tablet PO Q6H PRN PRN 3 Days #12 tablet PRN Reason: Pain Referrals: Ellie Dagile MD [Primary Care Provider] -
[2018-02-22 19:08] VITALS: BP 139/67; PULSE 89; RESP 18; TEMP 36.6; O2SAT 98
[2018-02-22] MEDS: oxyCODONE 5 MG Tablet PO (19:34)
== END 2018-02-22 19:35 | disposition home or self-care (01) ==
PROVIDERS: Emergency Provider Emergency Medicine; Family Provider Internal Medicine; PCP Internal Medicine
DX: M54.5 Low back pain (principal); I10 Essential (primary) hypertension; Z79.899 Other long term (current) drug therapy
CPT/HCPCS: 80048; 85025; 96374; 96375; 99283; A4216; J2405

== ENCOUNTER → 2018-10-15 | Outpatient (CLI) | payer MEDICARE, SELFPAY | END | disposition home or self-care (01) | LOC: LABSPEC 12:57 | PROVIDERS: Family Provider Internal Medicine; PCP Internal Medicine; Referring Provider Ophthalmology; Visit Provider Ophthalmology | DX: Z22.321 Carrier or suspected carrier of Methicillin susceptible Staphylococcus aureus (principal) | CPT/HCPCS: 87081 ==

== ENCOUNTER 2019-07-08 09:56 | Emergency (ER) | payer MEDICARE, SELFPAY ==
[2019-07-08 09:57] VITALS: BP 195/133; PULSE 90; RESP 16; TEMP 36.3; O2SAT 96; BMI 31.5
--- NOTE | 2019-07-08 10:24 | EKG12_ITS ---
Test Reason : ILLNESS Blood Pressure : / mmHG Vent. Rate : 074 BPM Atrial Rate : 074 BPM P-R Int : 166 ms QRS Dur : 106 ms QT Int : 386 ms P-R-T Axes : 023 048 039 degrees QTc Int : 428 ms Normal sinus rhythm Normal ECG Confirmed by POLI RYAN, MAXIM ([id number]), art editor VARUN GRANT ([id number]) on 07/12/2019 3:12:47 PM Referred By: CIELO Confirmed By:FIDEL ASHTON MD
[2019-07-08 11:12] VITALS: O2SAT 98
[2019-07-08 11:27] LABS: Absolute Lymphocyte Count 1.36 X10^3/uL (0.83-4.51); Absolute Neutrophil Count 3.2 X10^3/uL (2.0-7.7); Basophil# 0.04 X10^3/uL; Basophil% 0.7 % (0-1); Eosinophil# 0.55 X10^3/uL; Eosinophils% 9.5 % (0-5); Hematocrit 35.2 % (37-47); Hemoglobin 11.8 g/dL (12.0-15.0); Lymphocyte # 1.36 X10^3/ul (4.0); Lymphocyte % 23.5 % (19-41); Mean Corp Hgb Conc 33.5 g/dL (32-36); Mean Corpuscular Hgb 29.1 pg (27.0-32.0); Mean Corpuscular Volume 86.9 fL (81-99); Mean Platelet Vol. 9.6 fl (6.2-12.0); Monocyte# 0.67 X10^3/uL; Monocyte% 11.6 % (0-10); NRBC Flagged by Analyzer 0 % (0-5); Neutrophil # 3.15 X10^3/uL (2.7-7.7); Neutrophil % 54.4 % (47-70); Platelet Count 221 K/mm3 (150-450); RBC Distribution Width CV 13.8 % (11.6-14.6); RBC Distribution Width SD 43.4 fl (35.1-43.9); Red Blood Count 4.05 M/mm3 (4.2-5.4); White Blood Count 5.8 K/mm3 (4.4-11.0)
[2019-07-08] MEDS: MethylPREDNISolone 125 MG/2 ML Vial IV (11:36)
[2019-07-08 11:39] LABS: Anion Gap 6 (5-15); BUN 30 mg/dL (7-18); BUN/Creat Ratio 33.3 RATIO (10-20); Calcium,Total 9.4 mg/dL (8.5-10.1); Chloride 109 mmol/L (98-107); EST Glomerular Filtration Rate 65 mL/min (>60); Est Glom Filt Rate - Afr Amer 79 mL/min (>60); Estimated Creatinine Clearance 46.74 ml/min; Glucose 97 mg/dL (74-106); Potassium 3.9 mmol/L (3.5-5.1); Sodium Level 141 mmol/L (136-145)
--- NOTE | 2019-07-08 11:40 | RAD_ITS ---
STUDY: X-RAY CHEST REASON FOR EXAM: Female, 73 years old. RASH TO FACE, SEVERE SOB, FEVER LAST NIGHT, PAIN IN CHEST, COUGH TECHNIQUE: Single AP portable view of the chest. COMPARISON: December 03, 2017 FINDINGS: The lungs are clear and expanded. There is no demonstrated pleural abnormality. There is mild cardiac enlargement. Normal mediastinum and awilda. Normal visualized pulmonary arteries. Normal visualized aortic arch and descending thoracic aorta. There are diffuse degenerative changes of the visualized thoracic spine. There is postoperative change of the cervical spine. There is degenerative osteoarthritis of the bilateral shoulders. There is no demonstrated abnormality of the visualized soft tissue structures of the upper abdomen. RAD/Chest 1 View (Portable) IMPRESSION: Degenerative changes, as described above. No demonstrated acute cardiopulmonary process. Electronically Signed: Anuel Palencia MD at 12:12 EDT , Service support ,
[2019-07-08 11:50] LABS: BNP,B-Type NATRIURETIC PEPTIDE 19.8 pg/mL (0-100)
[2019-07-08 11:53] LABS: Lactic Acid 1.1 mmol/L (0.4-1.9)
[2019-07-08 11:55] VITALS: BP 191/87; PULSE 66; RESP 17; TEMP 36.7; O2SAT 97
--- NOTE | 2019-07-08 11:57 | ED.RN ---
called lab for second set blood culture
[2019-07-08 12:00] VITALS: BP 168/79; PULSE 69; RESP 20; O2SAT 94
--- NOTE | 2019-07-08 12:47 | ED.VISSUMM ---
- ER Visit Summary Date of Service: 07/08/19 Chief Complaint: Cough History of Present Illness: The patient is a [address] Daigle. She reports she has a cough began 3 weeks ago. Is nonproductive. She reports that she has been short of breath. States that this began yesterday. She is had subjective fever and chills. She is had rhinorrhea and sneezing. She complains of a sore throat is 5 out of 10 in severity. Patient reports that her shortness of breath is severe. She gets transient relief with her inhaler. She also complains of generalized weakness and a headache is 6 out of 10 in severity. She does have a history of similar headaches. Physical Examination: Vitals: Stable. Afebrile. General: Well-nourished and well-developed. Head: Normocephalic atraumatic. Neck: Supple, no lymphadenopathy. No JVD. Nontender. Cardiovascular: Regular rate and rhythm. No murmurs. Respiratory: No respiratory distress. Mild wheezing bilaterally with good air movement. Abdominal: Soft, nontender, nondistended, normal bowel sounds. No guarding, rebound, or peritoneal signs. Back: Nontender. Extremities: Nontender, 1+ pitting edema lower extremities bilaterally. Skin: Normal color, no rash. Neurologic: Alert and oriented ?3. Cranial nerves II through XII are intact. Normal strength and sensation. Psych: Normal affect. Test Results: EKG is sinus at [address] changes. Troponin is negative. BNP is 19.8. Lactic acid is 1.1. Chem-7 shows a chloride 109 and BUN of 30. CBC shows an H&H 11 point and 35.2, monocytes 12, eosinophils of 10. Clinical Impression(s) from Imaging Studies Chest X-Ray 07/08/19 11:40 IMPRESSION: Degenerative changes, as described above. No demonstrated acute cardiopulmonary process. Electronically Signed: Anuel Palencia MD at 12:12 EDT , Service support , Emergency Department Course and Treatment: Patient was treated with her albuterol MDI. She was given Solu-Medrol IV. She feels much improved and is resting comfortably. She was discussed with the [facility] and a cover test is sent. She is given Zithromax p.o. She feels well and like to go home. Treatment Plan: Discussed the patient that she may have COVID-19. She is instructed to quarantine herself for the next 2 weeks. She is instructed return the emergency department for any worsening symptoms. She be placed on a 5-day burst of prednisone and a Z-Dominic. Follow-up with her primary care physician in 2 weeks if not improving. Disposition: To home in improved and stable condition. Impression: 1. URI. 2. History of asthma. 3. Possible COVID-19 infection. This note was generated with [employer] dictation software. It may contain incorrect words, spelling, and punctuation that were not noted in review of the chart prior to signing ED Disposition - Plan for ED Patient: Disposition: Home or Assisted Living Instructions: ED Upper Resp Infec Abx Tx Prescriptions: Prednisone [Deltasone] 40 mg PO DAILY #10 tab Prescription Printed Azithromycin [Zithromax] 250 mg PO DAILY #4 tab Prescription Printed Referrals: Ellie Daigle MD [Primary Care Provider] - 10-14 Days if not better
[2019-07-08] MEDS: Azithromycin 250 MG Tablet 500 MG PO (13:31)
[2019-07-08 13:39] VITALS: BP 166/69; PULSE 72; RESP 20; TEMP 36.7; O2SAT 94
== END 2019-07-08 13:39 | disposition home or self-care (01) ==
LOC: ED 11:27
PROVIDERS: Emergency Provider Emergency Medicine; PCP Internal Medicine
DX: Z03.818 Encounter for observation for suspected exposure to other biological agents ruled out (principal); J06.9 Acute upper respiratory infection, unspecified; J44.9 Chronic obstructive pulmonary disease, unspecified; I10 Essential (primary) hypertension; Z79.899 Other long term (current) drug therapy; R06.02 Shortness of breath
CPT/HCPCS: 71045; 80048; 83605; 83880; 84484; 85025; 87040; 87633; 87635; 93005; 96374; 99285; A4216; U0002; U0004

== ENCOUNTER 2019-07-25 14:40 | Emergency (ER) | payer MEDICARE, SELFPAY ==
[2019-07-25] VITALS (7 sets, daily range): BP systolic 130–160; BP diastolic 68–128; PULSE 71–82; RESP 15–22; TEMP 36.6; O2SAT 96–98; BMI 30.9
--- NOTE | 2019-07-25 16:21 | ED.VISSUMM ---
- ER Visit Summary Date of Service: 07/25/19 Chief Complaint: Shortness of breath History of Present Illness: The patient is a 73 F who presents with shortness of breath that has been getting worse over the past 5 days. Patient states it is worse with walking and exertion. Patient states she feels like she is wheezing. Patient also admits to a sore throat and some right ear pain. Patient admits to a cough but denies any sputum production. Patient does admit to some aching and throbbing pain in her substernal and right chest area. Patient denies any nausea or vomiting. Patient denies any fevers or chills. Patient denies any recent travel or recent surgery. Patient denies any history of DVT or PE. Physical Examination: Vital signs are stable except for mild tachypnea of 22 and a slightly elevated blood pressure 160/128. Patient is afebrile. Patient is in no acute distress. Oral mucosa is pink and moist. Neck is supple. Trachea is midline. There is no JVD. Heart was regular rate and rhythm. Lungs showed some mild scattered wheezing. There is good respiratory effort noted. Abdomen is soft. Bowel sounds are normal. There is no tenderness. Cranial nerves II through XII are intact. There are no focal motor or sensory deficits. Extremities are intact. There is no calf tenderness or edema. Test Results: EKG showed normal sinus rhythm with a rate of 74. There are no acute ST or T wave changes. Portable chest x-ray was obtained. There is no acute cardiopulmonary process. This was interpreted by the radiologist and myself. CBC was within normal limits. Basic metabolic profile showed a slightly elevated creatinine of 1.11 and a BUN of 25. Urinalysis was within normal limits. Troponin was normal. Emergency Department Course and Treatment: Patient was given a DuoNeb aerosol here. Previous results were reviewed. Patient had a negative COVID-19 test on 07/08/2019. Patient also had a negative respiratory panel at that time. Patient was feeling better on reevaluation. Patient has inhalers and aerosol machine at home. Patient was instructed to continue using those. Patient was instructed to follow-up with her primary care physician in 3 to 5 days. Patient was instructed to take Tylenol or ibuprofen as needed for any fevers. Patient was instructed to return if worse in any way. Patient understood and was agreeable with the plan. All questions were answered. Disposition: Discharge home Impression: 1. Viral upper respiratory infection This note was generated with [employer] dictation software. It may contain incorrect words, spelling, and punctuation that were not noted in review of the chart prior to signing ED Disposition - Plan for ED Patient: Disposition: Home or Assisted Living Diagnosis: Viral upper respiratory tract infection with cough Instructions: ED URI Viral Referrals: Ellie Daigle MD [Primary Care Provider] - 3-5 Days
--- NOTE | 2019-07-25 16:22 | EKG12_ITS ---
Test Reason : SOB Blood Pressure : / mmHG Vent. Rate : 074 BPM Atrial Rate : 074 BPM P-R Int : 156 ms QRS Dur : 100 ms QT Int : 406 ms P-R-T Axes : 028 066 048 degrees QTc Int : 450 ms Normal sinus rhythm Normal ECG Confirmed by EVAN RYAN, RAMIRO ([id number]), make up editor VARUN GRANT ([id number]) on 07/28/2019 10:36:31 AM Referred By: WALE/JUAN Confirmed By:RAMIRO GORDON MD
[2019-07-25] MEDS: Ipratropium/Albuterol Sulfate 3 ML AMPUL.NEB INHALATION (16:38)
--- NOTE | 2019-07-25 16:40 | RAD_ITS ---
STUDY: X-RAY CHEST REASON FOR EXAM: Female, 73 years old. INCREASING SOB, WHEEZING TECHNIQUE: Single AP portable view of the chest. COMPARISON: July 08, 2019 FINDINGS: The lungs are clear and expanded. There is no demonstrated pleural abnormality. Normal size heart. Stable osseous structures and mediastinal contours. Cervical spine hardware reidentified. RAD/Chest 1 View (Portable) IMPRESSION: No demonstrated acute process Electronically Signed: Jesus Jacinto MD at 17:04 EDT , Service support ,
[2019-07-25 17:53] LABS: Absolute Neutrophil Count 4.9 X10^3/uL (2.0-7.7); Basophil# 0.08 X10^3/uL; Basophil% 0.9 % (0-1); Eosinophil# 0.76 X10^3/uL; Eosinophils% 8.6 % (0-5); Hematocrit 38.7 % (37-47); Hemoglobin 12.5 g/dL (12.0-15.0); Lymphocyte % 22.7 % (19-41); Mean Corp Hgb Conc 32.3 g/dL (32-36); Mean Corpuscular Hgb 28.2 pg (27.0-32.0); Mean Corpuscular Volume 87.2 fL (81-99); Monocyte# 1.02 X10^3/uL; Monocyte% 11.6 % (0-10); NRBC Flagged by Analyzer 0 % (0-5); Neutrophil # 4.94 X10^3/uL (2.7-7.7); Neutrophil % 55.9 % (47-70); Platelet Count 253 K/mm3 (150-450); RBC Distribution Width CV 13.9 % (11.6-14.6); Red Blood Count 4.44 M/mm3 (4.2-5.4); White Blood Count 8.8 K/mm3 (4.4-11.0)
[2019-07-25 17:58] LABS: Bacteria 0 SEEN /hpf (None Seen); Mucous, Urine 0 SEEN /hpf (<or=2+); Red Blood Cells-Urine 0 SEEN /hpf (0-5)
[2019-07-25 18:06] LABS: ALB/GLOB Ratio 1.1 RATIO (0.9-2.4); AST(SGOT) 27 U/L (15-37); Alanine Aminotransfer ALT/SGPT 52 U/L (13-56); Alkaline Phosphatase 91 U/L (45-117); Anion Gap 12 (5-15); BUN 25 mg/dL (7-18); BUN/Creat Ratio 22.5 RATIO (10-20); Calcium,Total 9.4 mg/dL (8.5-10.1); Chloride 108 mmol/L (98-107); Creatinine, Serum 1.11 mg/dL (0.55-1.02); EST Glomerular Filtration Rate 51 mL/min (>60); Est Glom Filt Rate - Afr Amer 62 mL/min (>60); Globulin 3.5 g/dL (2.2-4.2); Glucose 98 mg/dL (74-106); Potassium 3.8 mmol/L (3.5-5.1); Protein, Total 7.5 g/dL (6.4-8.2); Sodium Level 144 mmol/L (136-145)
[2019-07-25 18:16] LABS: Color, Urine Straw (Yellow); Glucose, Dipstick Normal (Normal); Ketone-Dipstick Negative (Negative); Leukocyte Esterase-Dipstick Negative /ul (Negative); Nitrite-Dipstick Negative (Negative); Occult Blood-Urine Negative /ul (Negative); Protein-Dipstick Negative (Negative); Urine Bilirubin Dipstick Negative (Negative); Urine Clarity Clear (Clear); Urine Urobilinogen Normal (Normal)
[2019-07-25 18:28] LABS: Squamous Epithelial Cells - UA 0-5 SEEN /hpf (5-10)
[2019-07-25 18:29] LABS: Hyaline Cast 0-5 SEEN /lpf (0-5)
[2019-07-25 18:31] LABS: White Blood Cells 0-5 SEEN /hpf (0-5)
== END 2019-07-25 19:29 | disposition home or self-care (01) ==
PROVIDERS: Emergency Provider Emergency Medicine; PCP Internal Medicine
DX: J06.9 Acute upper respiratory infection, unspecified (principal); I10 Essential (primary) hypertension; Z79.899 Other long term (current) drug therapy
CPT/HCPCS: 36415; 71045; 80053; 81001; 84484; 85025; 93005; 94640; 99284; A4216

== ENCOUNTER → 2019-11-07 15:49 | Outpatient (CLI) | payer MEDICARE, SELFPAY ==
[2019-07-25 14:41] VITALS: BMI 30.9
[2019-11-07 16:09] LABS: Absolute Lymphocyte Count 1.71 X10^3/uL (0.83-4.51); Absolute Neutrophil Count 4.4 X10^3/uL (2.0-7.7); Basophil# 0.04 X10^3/uL; Basophil% 0.6 % (0-1); Eosinophil# 0.31 X10^3/uL; Eosinophils% 4.3 % (0-5); Lymphocyte # 1.71 X10^3/ul (4.0); Lymphocyte % 23.8 % (19-41); Mean Corp Hgb Conc 32.4 g/dL (32-36); Mean Corpuscular Hgb 28.6 pg (27.0-32.0); Mean Corpuscular Volume 88.3 fL (81-99); Mean Platelet Vol. 9.5 fl (6.2-12.0); Monocyte# 0.77 X10^3/uL; Monocyte% 10.7 % (0-10); NRBC Flagged by Analyzer 0 % (0-5); Neutrophil # 4.35 X10^3/uL (2.7-7.7); Neutrophil % 60.3 % (47-70); Platelet Count 226 K/mm3 (150-450); RBC Distribution Width CV 13.9 % (11.6-14.6); RBC Distribution Width SD 44.1 fl (35.1-43.9); Red Blood Count 4.19 M/mm3 (4.2-5.4); White Blood Count 7.2 K/mm3 (4.4-11.0)
[2019-11-07 16:54] LABS: Erythrocyte Sedimentation Rate 14 mm/hr (0-30)
== END ==
PROVIDERS: PCP Internal Medicine; Referring Provider Specialist; Visit Provider Specialist
DX: Z96.641 Presence of right artificial hip joint (principal)
CPT/HCPCS: 36415; 85025; 85652; 86140

== ENCOUNTER → 2019-11-14 13:23 | Outpatient (CLI) | payer MEDICARE, SELFPAY ==
[2019-07-25 14:41] VITALS: BMI 30.9
--- NOTE | 2019-11-14 13:27 | CT_ITS ---
STUDY: CT SCAN HIP RIGHT REASON FOR EXAM: Female, 74 years old. RIGHT GROIN /HIP PAIN WITH REPLACEMENT AND METAL ARTIFACT RADIATION DOSAGE (If Supplied By Facility): CTDIvol = ( 37.33 ) mGy, DLP = ( 1034.53 ) mGycm. Individualized dose optimization techniques were used for this CT.? TECHNIQUE: Multiple axial tomographic images of the hip joint was obtained without intravenous contrast administration. Coronal and sagittal reconstruction was obtained as well. COMPARISON: Comparison is made with prior radiograph dated 01/30/[address] scan of the pelvis done on 03/25/2017.. FINDINGS: Degenerative changes of the right sacroiliac joint. The patient is status post right total hip replacement. There is good alignment. Well-corticated bony fragments are seen overlying the greater trochanter. This may represent postoperative changes versus myositis ossificans. The patient is status post left total hip replacement as well. CT/Extremity Lower without Contra IMPRESSION: Status post right total hip replacement. No acute abnormality is seen. Electronically Signed: Jean Marie Fuentes, at 14:48 EDT , Service support ,
== END ==
PROVIDERS: PCP Internal Medicine; Referring Provider Specialist; Visit Provider Specialist
DX: M61.9 Calcification and ossification of muscle, unspecified (principal)
CPT/HCPCS: 73700

== ENCOUNTER → 2019-11-17 09:36 | Outpatient (CLI) | payer MEDICARE, SELFPAY ==
[2019-07-25 14:41] VITALS: BMI 30.9
--- NOTE | 2019-11-17 09:00 | RAD_ITS ---
PROCEDURE: Fluoroscopic guided Hip aspiration. DATE: 11/17/2019 INDICATION: Female, 74 years old. Status post right hip replacement. Chronic pain. PHYSICIAN: Jean Marie Fuentes M.D. ACCESS SITE: Right hip. NEEDLE: 22-gauge spinal needle. FLUOROSCOPY TIME (if supplied): (0:19) minutes/seconds FINDINGS: The risks, benefits, and alternatives to the procedure were explained to the patient. The specific risks of bleeding, infection, and neurovascular injury were detailed and accepted. Witnessed informed consent was obtained. A 22-gauge spinal needle was positioned under radiographic fluoroscopic localization. Approximately 1 cc of paolo-colored fluid was aspirated. The patient tolerated the procedure well without any immediate complications. RAD/Inj/Asp Nelson Jt Should/Hip/Knee IMPRESSION: 1. Successful fluoroscopic guided hip aspiration with removal of 1 cc of paolo-colored fluid Electronically Signed: Jean Marie Fuentes, at 11:02 EDT , Service support ,
[2019-11-17 12:45] LABS: Appearance /Synovial Fluid Cloudy (CLEAR); Color / Synovial Fluid Yellow (Pale Yellow)
[2019-11-17 12:46] LABS: Total Volume / Synovial Fluid < 1.0 ml (0.1-3.5); WBC / Synovial Fluid 18 /mm3 (0)
[2019-11-17 12:47] LABS: Body Fluid QC Type(s) BF1Q,BF2Q; Source / Synovial Fluid RT HIP
[2019-11-17 13:34] LABS: Lymph 60 %; Monocyte /Synovial Fluid 31 %; Neutrophil 7 % (0-25); Other Cell /Synovial Fluid 2 %
[2019-11-17 13:35] LABS: RBC /Synovial Fluid 1857 /mm3 (0)
[2019-11-18 13:45] LABS: Pathologist Comment Reviewed
== END ==
PROVIDERS: PCP Internal Medicine; Referring Provider Specialist; Visit Provider Specialist
DX: M25.551 Pain in right hip (principal); Z96.641 Presence of right artificial hip joint
CPT/HCPCS: 20610; 77002; 89050; 89051; Q9967

== ENCOUNTER 2022-03-14 10:11 | Observation (INO) | payer MEDICARE, SELFPAY ==
[2022-03-14 10:11] VITALS: BP 131/69; PULSE 89; RESP 16; TEMP 36.4; O2SAT 100; BMI 29.2
--- NOTE | 2022-03-14 10:25 | CT_ITS ---
STUDY: CT ABDOMEN AND PELVIS WITH CONTRAST REASON FOR EXAM: Female, 76 years old. Left Lower quadrant pain with guarding, cancer patient RADIATION DOSAGE (If Supplied By Facility): CTDIvol = ( 19.85 ) mGy, DLP = ( 1279.55 ) mGycm TECHNIQUE: Transaxial images were obtained from the dome of the diaphragm to the symphysis pubis without oral contrast. IV 100mL Isovue-300 was administered. Sagittal and coronal images were reconstructed. Individualized dose optimization techniques were used for this CT. COMPARISON: Comparison is made with prior study dated 12/02/2017. FINDINGS: The visualized lung bases are unremarkable. Coronary calcification. Normal liver. Normal gallbladder and extrahepatic biliary system. Normal spleen. Normal pancreas. Normal bilateral adrenal glands. Normal right kidney. Normal left kidney. Normal visualized stomach. Normal small intestine. Surgical anastomosis is seen in the rectum. Large amount of fecal material is seen in the rectum. Circumferential wall thickening with increased markings in the surrounding peritoneal fat involving the distal descending colon and sigmoid colon. This is suggestive of a colitis. There is non-visualization of the appendix. There is scattered atherosclerotic calcification of the abdominal aorta, without a demonstrated aneurysm. Normal inferior vena cava. There is borderline retroperitoneal lymphadenopathy with enlarged nodes no greater than 10mm in the short axis diameter. Normal urinary bladder. Normal abdominal wall. The patient is status post interpedicular screw and bonny fixation from the T11 vertebrae down to the L5 vertebrae. The patient is status post bilateral total hip replacement causing beam hardening artifact in the pelvis. CT/Abdomen/Pelvis W IV Cont ONLY IMPRESSION: Findings suggestive of colitis of the sigmoid colon. Surgical anastomosis is seen at the level of rectum. Status post interpedicular screw and bonny fixation of the lower thoracic and lumbar spine. Status post bilateral total hip replacement. Atrophy of the psoas muscles. Electronically Signed: Jean Marie Fuentes MD at 12:13 EST ,
[2022-03-14 10:44] LABS: Color, Urine Yellow (Yellow); Glucose, Dipstick Normal (Normal); Ketone-Dipstick Negative (Negative); Leukocyte Esterase-Dipstick 500 /ul (Negative); Nitrite-Dipstick Negative (Negative); Occult Blood-Urine 50 /ul (Negative); Protein-Dipstick 15 mg/dl (Negative); Urine Bilirubin Dipstick Negative (Negative); Urine Clarity Cloudy (Clear); Urine Urobilinogen Normal (Normal)
[2022-03-14] MEDS: 0.9% Normal Saline 1,000 ML 250 ML IV (10:48)
[2022-03-14 10:53] LABS: Bacteria 2+ /hpf (None Seen); Mucous, Urine RARE /hpf (<or=2+); Red Blood Cells-Urine 0-5 SEEN /hpf (0-5); Squamous Epithelial Cells - UA 5-10 SEEN /hpf (5-10); White Blood Cells >100 SEEN /hpf (0-5)
[2022-03-14 10:58] LABS: Absolute Lymphocyte Count 0.54 X10^3/uL (0.83-4.51); Absolute Neutrophil Count 9.9 X10^3/uL (2.0-7.7); Basophil# 0.02 X10^3/uL; Basophil% 0.2 % (0-1); Eosinophil# 0.08 X10^3/uL; Eosinophils% 0.7 % (0-5); Hematocrit 35.1 % (37-47); Hemoglobin 11.7 g/dL (12.0-15.0); Lymphocyte # 0.54 X10^3/ul (0.83-4.51); Lymphocyte % 4.6 % (19-41); Mean Corp Hgb Conc 33.3 g/dL (32-36); Mean Corpuscular Hgb 29.3 pg (27.0-32.0); Mean Platelet Vol. 9.4 fl (6.2-12.0); Monocyte# 1.11 X10^3/uL; Monocyte% 9.5 % (0-10); NRBC Flagged by Analyzer 0 % (0-5); Neutrophil % 84.5 % (47-70); POSITIVE COUNT YES; POSITIVE DIFFERENTIAL YES; Platelet Count 72 K/mm3 (150-450); RBC Distribution Width CV 15.6 % (11.6-14.6); RBC Distribution Width SD 50.2 fl (35.1-43.9); Red Blood Count 3.99 M/mm3 (4.2-5.4); White Blood Count 11.7 K/mm3 (4.4-11.0)
[2022-03-14 11:01] LABS: Differential Indicated SCAN CRITERIA MET
[2022-03-14 11:09] LABS: Anion Gap 7 (5-15); BUN 23 mg/dL (7-18); BUN/Creat Ratio 22.8 RATIO (10-20); Calcium,Total 9.4 mg/dL (8.5-10.1); Chloride 103 mmol/L (98-107); Creatinine, Serum 1.01 mg/dL (0.55-1.02); EST Glomerular Filtration Rate 57 mL/min (>60); Est Glom Filt Rate - Afr Amer 69 mL/min (>60); Estimated Creatinine Clearance 38.06 ml/min; Glucose 121 mg/dL (74-106); Potassium 3.7 mmol/L (3.5-5.1); Sodium Level 138 mmol/L (136-145)
[2022-03-14 11:18] LABS: Platelet Estimate MOD DEC (ADEQ)
--- NOTE | 2022-03-14 11:25 | EX.ED.DYSGE1 ---
HPI History of Present Illness Chief Complaint: Abd Pain Detail of Chief Complaint: Acute left lower quadrant abdominal pain Informant: patient Onset/Context/Timing Onset: Hours (0230) Context: Sudden Onset Timing: Continuous Quality: Pain Location: Left lower quad Current Severity: Mild Maximum Severity: Severe Worsened by: After patient was examined by Dr. Rosalio Mansfield Relieved by: Nothing Associated Symptoms Associated Symptoms: Nausea Narrative Narrative: Patient is a 76-year-old female with history of GBM who is on oral chemotherapy and received radiation therapy today. She was sent in because of left lower quadrant pain that woke her from sleep. She denies history of renal or ureterolithiasis. She denies dysuria, frequency, urgency or hematuria. She does have a remote history of diverticulitis. She denies fever, chills or night sweats. She does have asymmetry of her face and altered sensation due to GBM. She denies rhinorrhea, congestion, postnasal drainage sore throat. She denies shortness of breath or cough. She denies chest pain. She denies orthopnea or PND. She does report left quadrant abdominal pain with nausea. She has had hard stool recently. She denies diarrhea. She has black or maroon-colored stool. She denies hematochezia. There is no history of trauma. Certain movements do. Prior similar symptoms: No Recent Illness/Hospitalization: Yes [facility] Medical History Brain cancer Chemotherapy induced nausea and vomiting Home Medications melatonin 3 mg tablet 6 mg PO QHS sleep 12/24/17 [History Last Taken Unknown] oxycodone 5 mg tablet 5 - 10 mg PO Q6H PRN PRN Pain 12/24/17 [History Last Taken Unknown] Mineral Oil/Petrolatum,White [Eucerin] 1 applic topical 2200 01/22/18 [Rx Last Taken Unknown] acetaminophen 500 mg tablet 1,000 mg PO Q6H PRN PRN Mild Pain (1-3) 01/22/18 [Rx Last Taken Unknown] arginine 7 gram-glutam 7 gram-CaHMB 1.5 [id number] oral pwd pkt (Rubén (with collagen)) 1 packet PO BIDCM ##60 01/22/18 [Rx Last Taken Unknown] hydrocortisone 2.5 % topical cream 1 applic topical TID PRN PRN Itching ##1 01/22/18 [Rx Last Taken Unknown] lorazepam 0.5 mg tablet 0.5 mg PO Q6H PRN PRN ANXIETY #60 tabs 01/22/18 [Rx Last Taken Unknown] menthol 0.44 %-zinc oxide 20.6 % topical ointment (Calmoseptine) 1 applic topical BID@0600,2200 ##0 01/22/18 [Rx Last Taken Unknown] nystatin 100,000 unit/gram topical powder (Nyamyc) 1 applic topical 0600,2200 01/22/18 [Rx Last Taken Unknown] ondansetron 8 mg disintegrating tablet (Zofran ODT) 8 mg PO Q8H PRN PRN Nausea ##30 01/22/18 [Rx Last Taken Unknown] polyethylene glycol 3350 17 gram oral powder packet 17 g PO DAILY stool softner ##30 01/22/18 [Rx Last Taken Unknown] polysaccharide iron complex 150 mg iron capsule (Ferrex) 150 mg PO DAILYCM ##30 01/22/18 [Rx Last Taken Unknown] azithromycin 250 mg tablet 250 mg PO DAILY #4 tabs 07/08/19 [Rx Last Taken Unknown] prednisone 20 mg tablet 40 mg PO DAILY #10 tabs 07/08/19 [Rx Last Taken Unknown] Allergy/AdvReac Type Severity Reaction Status Date / Time vancomycin Allergy Rash Verified 07/25/19 14:44 Surgical History H/O total hip arthroplasty Previous back surgery Total knee replacement status Social History (Updated 03/14/22 @ 11:[address] Jorge Crow MD) household members: none Smoking Status: Never smoker substance use type: does not use ROS ROS ED Constitutional Constitutional ED: Denies chills, fever(s), subjective, sweats or weight loss Eyes Eyes: Denies blurry vision, change in vision or diplopia ENT ENT ED: Reports other Details: Documented in the HPI narrative ; Denies ear pain, rhinorrhea or sore throat Cardiovascular Cardiovascular: Denies chest pain, palpitations or racing heartbeat Respiratory/Chest Respiratory/Chest: Denies cough, dyspnea or dyspnea on exertion Gastrointestinal Gastrointestinal: Reports abdominal pain, constipation and nausea; Denies diarrhea, melena or vomiting Genitourinary Genitourinary ED: Denies dysuria, hematuria or urinary frequency Musculoskeletal Musculoskeletal: Denies arthralgias, back pain, myalgias or neck pain Integumentary Denies Abrasions or rash Neurologic Neurologic: Reports headache(s); Denies paresthesias or weakness Psychiatric Psychiatric: Denies anxiety or depression Hematologic/Lymphatic Hematologic/Lymphatic: Denies easy bleeding, easy bruising or lymphadenopathy EXAM Physical Exam Const Vital Signs: 03/14/22 10:11 Temperature 97.5 F L Temperature Source Temporal Pulse Rate 89 Respiratory Rate 16 Blood Pressure 131/69 H Blood Pressure Mean 89 Pulse Ox 100 Oxygen Delivery Method Room Air Positive well nourished and well developed General Appearance ED: well developed, NAD and pallor; Negative for cyanotic or diaphoretic HEENT Reports dry mucous membranes HEENT Narrative: There is the asymmetry of the face with altered sensation on left side. Patient has poor dentition. Uvula is midline. There is no deviation with protrusion. Mouth ED: Yes dry mucous membranes Mouth: dry mucous membranes Eyes PERRL and EOMs intact bilaterally General Eye ED: Yes pale conjunctiva; Negative for scleral icterus Neck no lymphadenopathy, supple and no JVD Chest Wall inspection of chest normal and palpation of chest normal Resp normal respiratory effort and clear to auscultation bilaterally Cardio regular rate, regular rhythm, S1 normal heart sound, S2 normal heart sound and no murmurs GI non-distended and no masses; Negative for non-tender or hepatosplenomegaly Inspection: Negative for abdominal distention Auscultation: hypoactive bowel sounds Palpation: soft, tender LLQ, guarding LLQ and rebound tenderness present other (There is mild percussion tenderness left lower quadrant.); Negative for splenomegaly or mass Back/Spine no CVA tenderness Cervical Spine: Negative for cervical spine tenderness Thoracic Spine / Upper Back: Negative for thoracic spinal tenderness Lumbar Spine / Lower Back: Negative for lumbar spinal tenderness Extremity normal to inspection General Extremety ED: Negative for edema or tenderness General Extremity: Negative for edema Neuro oriented x3, No CN's II-XII intact bilaterally and No no sensory deficits noted Sensorium / Orientation: alert Psych mental status grossly normal Mood & Affect: Negative for anxious or tearful Skin no rashes or lesions noted, no wounds and No skin turgor normal General Skin Exam: pallor; Negative for jaundice MDM MDM MDM Narrative Medical decision making narrative: With history of chemotherapy for GBM and left lower quadrant pain differential would be ureterolithiasis, urinary tract infection, diverticulitis, abdominal pain of unknown etiology. Will obtain CBC to assess white count differential and rule out neutropenia since patient is on chemotherapy. Also to assess for anemia since she appears pale. Suspect hemoglobin is greater than 10 since she still has pink conjunctive a. BMP to assess renal function since she will require a CT with IV contrast. Also will obtain a UA because of concern for urinary tract infection. In light of patient having colitis on CAT scan and now having bloody stool concern patient has ischemic colitis. Call was placed to GI. Because she does have urinary tract infection urine culture was obtained prior to starting patient on Rocephin. Dr. Rosalio Mansfield who sent patient and was made aware. Oral chemotherapy to stop while she is inpatient. Radiation treatments will be made up once she is discharged. This was conveyed to patient. Lab Data Attestation: I reviewed the patient's lab results. Lab results narrative: Urine is consistent with a urinary tract infection. She has occult blood and leukoesterase on macro. Nitrites were negative. There is greater than 100 WBCs with 2+ bacteria and 5 squamous epithelial cells. This is a satisfactory specimen. This may also represent inflammation due to diverticulitis. Renal function is acceptable. Creatinine is 1.01 with a GFR of 57. White count is elevated with shift. There is no bandemia. Labs: Laboratory Results - last 24 hr 03/14/22 03/14/22 03/14/22 10:30 10:50 10:50 WBC 11.7 H RBC 3.99 L Hgb 11.7 L Hct 35.1 L MCV 88.0 MCH 29.3 MCHC 33.3 RDW Std Deviation 50.2 H RDW Coeff of Eboni 15.6 H Plt Count 72 L MPV 9.4 Immature Gran % (Auto) 0.500 Neut % (Auto) 84.5 H Lymph % (Auto) 4.6 L Hardin % (Auto) 9.5 Eos % (Auto) 0.7 Baso % (Auto) 0.2 Absolute Neuts (auto) 9.9 H Absolute Lymphs (auto) 0.54 L Nucleated RBC % 0 Differential Comment Platelet Estimate MOD DEC Sodium 138 Potassium 3.7 Chloride 103 Carbon Dioxide 28.0 Anion Gap 7 BUN 23 H Creatinine 1.01 Estim Creat Clear Calc 38.06 Est GFR (MDRD) Af Amer 69 Est GFR (MDRD) Non-Af 57 L BUN/Creatinine Ratio 22.8 H Glucose 121 H Calcium 9.4 Urine Color Yellow Urine Clarity Cloudy Urine pH 6.0 Ur Specific [place] 1.010 Urine Protein 15 H Urine Glucose (UA) Normal Urine Ketones Negative Urine Occult Blood 50 H Urine Nitrite Negative Urine Bilirubin Negative Urine Urobilinogen Normal Ur Leukocyte Esterase 500 H Urine RBC 0-5 SEEN Urine WBC >100 SEEN Ur Squamous Epith Cells 5-10 SEEN Urine Bacteria 2+ Urine Mucus RARE Radiography Diagnostic Testing: Clinical Impression(s) from Imaging Studies Abdomen/Pelvis CT 03/14/22 10:25 IMPRESSION: Findings suggestive of colitis of the sigmoid colon. Surgical anastomosis is seen at the level of rectum. Status post interpedicular screw and bonny fixation of the lower thoracic and lumbar spine. Status post bilateral total hip replacement. Atrophy of the psoas muscles. Electronically Signed: Jean Marie Fuentes MD at 12:13 EST , Discharge Plan Dx/Rx/DC Orders Clinical Impression: Acute ischemic colitis, HTN (hypertension), Urinary tract infection, Glioblastoma multiforme, Immunosuppressive disease Disposition Disposition: Acute Care [facility]
[2022-03-14 13:49] VITALS: BP 118/48; PULSE 77; RESP 18; TEMP 36.8; O2SAT 98
--- NOTE | 2022-03-14 13:59 | ED.RN ---
THIS RN ASKED RADIATION ONCOLOGY THERAPIST TO OBTAIN PT HOME MEDICATION LIST.
--- NOTE | 2022-03-14 14:00 | PCM.HP.STD ---
HPI - General General Date of Admission: 03/14/22 Date of Service: 03/14/22 Chief Complaint: Left lower abdominal pain, bright red rectal bleeding HPI Narrative WALTER MANCIA, is a 76 F who presents to the emergency room at [facility] with complaints of left lower quadrant abdominal discomfort which started approximately 3 AM this morning, patient stated that she had 2 normal bowel movements today at home without any evidence of blood, after she came to the emergency room for evaluation at the urging of her oncologist, she had a bowel movement here in the ER which had streaks of blood in it. Patient is currently undergoing treatment for a left-sided glioblastoma, it was entirely resected in November 2021, she has been undergoing radiation therapy for the past several weeks, she states that she will be finishing up with the radiation therapy next week, she did have radiation therapy today. Patient takes oral chemo therapy medication for the glioblastoma. Patient states she had a history of asthma, she has no history of coronary artery disease. Patient had a past history of diverticulitis many years ago with resection of part of her colon. Work-up in the emergency room included a white blood cell count which was slightly elevated, patient is afebrile, CT of the abdomen pelvis was obtained which showed an area that appeared to be colitis in the sigmoid colon area. Patient's UA was positive for bacteria and over 100 white cells indicating cystitis-patient has no symptoms presently of cystitis however. Patient's BUN was slightly elevated at 23. Patient will be admitted to [place] [id number] for acute colitis and cystitis, she will be placed on IV Zosyn, she will be seen by gastroenterology in consultation-I talked with Dr. England today concerning her care. [facility] Medical History Brain cancer Chemotherapy induced nausea and vomiting Home Medications acetaminophen 500 mg tablet 1,000 mg PO Q6H PRN PRN Mild Pain (1-3/10) 01/22/18 [Rx Last Taken Unknown] ondansetron 8 mg disintegrating tablet (Zofran ODT) 8 mg PO Q8H PRN PRN Nausea #30 tabs 01/22/18 [Rx Last Taken 03/13/22] acyclovir 400 mg tablet 400 mg PO BID for radiation 03/14/22 [History Last Taken 03/14/22] hydrochlorothiazide 12.5 mg tablet 12.5 mg PO DAILY bp 03/14/22 [History Last Taken 03/14/22] losartan 100 mg tablet 100 mg PO DAILY bp 03/14/22 [History Last Taken 03/14/22] sulfamethoxazole 800 mg-trimethoprim 160 mg tablet 1 tab PO DAILY infection 03/14/22 [History Last Taken 03/14/22] temozolomide 140 mg capsule 140 mg PO DAILY chemo 03/14/22 [History Last Taken 03/13/22] Allergy/AdvReac Type Severity Reaction Status Date / Time vancomycin Allergy Rash Verified 07/25/19 14:44 Surgical History H/O total hip arthroplasty Previous back surgery Total knee replacement status Social History (Updated 03/14/22 @ 11:[address] Jorge Crow MD) household members: none Smoking Status: Never smoker substance use type: does not use ROS Constitutional Constitutional: Denies anorexia, change in weight, fever(s), night sweats or weakness Eyes Eyes: Denies blurry vision, change in vision, discharge from eye(s) or eye pain Cardiovascular Cardiovascular: Denies chest pain, claudication, edema or palpitations Respiratory/Chest Respiratory/Chest: Denies cough, hemoptysis, shortness of breath at rest or shortness of breath with exertion Gastrointestinal Gastrointestinal: Reports abdominal pain and hematochezia; Denies constipation, diarrhea, hematemesis, melena, nausea or vomiting Genitourinary Genitourinary: Denies burning urination, difficulty urinating, dysuria, hematuria, nocturia, urinary frequency, urinary hesitancy, urinary incontinence or urinary urgency Musculoskeletal Musculoskeletal: Denies back pain, joint pain, joint stiffness, joint swelling, myalgias or neck pain Neurologic Neurologic: Denies abnormal gait, abnormal speech, dizziness, focal weakness, headache(s), loss of vision, numbness, other visual disturbances, paresthesias, syncope or tingling Psychiatric Psychiatric: Denies anxiety, cognitive impairment, depression, irritability, mood swings or suicidal ideation Endocrine Endocrinology: Denies change in body appearance, cold intolerance, excessive sweating, heat intolerance, polydipsia or polyuria Hematologic/Lymphatic Hematologic/Lymphatic: Denies none, anemia, easy bleeding, easy bruising or lymphadenopathy Allergic/Immunologic Allergic/Immunologic: Denies rhinitis, urticaria, eczemia or asthma Vital Signs Vital Signs Vital Signs: 03/14/22 10:11 03/14/22 13:49 03/14/22 13:49 Temperature 97.5 F L 98.2 F 98.2 F Temperature Source Temporal Oral Oral Pulse Rate 89 77 77 Respiratory Rate 16 18 18 Blood Pressure 131/69 H 118/48 L 118/48 L Blood Pressure Mean 89 71 71 Pulse Ox 100 98 98 Oxygen Delivery Method Room Air Room Air Room Air Weight Weight: 72.575 kg Body Mass Index (BMI) 29.2 Physical Exam Const alert, oriented x3, no apparent distress and healthy appearing General Appearance: cooperative, well kempt and well developed Orientation / Consciousness: awake, oriented to person, oriented to place and oriented to time HEENT normocephalic and moist oral mucous membranes Eyes PERRL, EOMs intact bilaterally and conjunctivae normal Neck supple, no JVD, thyroid normal and no carotid bruits General: trachea midline Resp normal respiratory effort and clear to auscultation bilaterally Auscultation: Negative for rales, rhonchi or wheezes Cardio regular rate, regular rhythm, S1 normal heart sound, S2 normal heart sound, no murmurs, no rub and no gallops GI normal to inspection, nondistended, normoactive bowel sounds, soft to palpation and non-distended GI Narrative: Patient is left lower quadrant abdominal tenderness to deep palpation, there is no rebound abdominal tenderness noted Extremity no clubbing, cyanosis or edema Skin no rashes or lesions noted General Skin Exam: no breakdown Neuro oriented x3, CN's II-XII intact bilaterally, no focal motor deficits and no sensory deficits noted Neuro Narrative: Patient has tremorous speech which is chronic for her Sensorium / Orientation: awake and alert Psych affect normal Results Lab / Micro Data Result Diagrams: 03/14/22 10:50 03/14/22 10:50 Labs: Laboratory Results - last 24 hr 03/14/22 10:30: Urine Color Yellow, Urine Clarity Cloudy, Urine pH 6.0, Ur Specific [place] 1.010, Urine Protein 15 H, Urine Glucose (UA) Normal, Urine Ketones Negative, Urine Occult Blood 50 H, Urine Nitrite Negative, Urine Bilirubin Negative, Urine Urobilinogen Normal, Ur Leukocyte Esterase 500 H, Urine RBC 0-5 SEEN, Urine WBC >100 SEEN, Ur Squamous Epith Cells 5-10 SEEN, Urine Bacteria 2+, Urine Mucus RARE 03/14/22 10:50: WBC 11.7 H, RBC 3.99 L, Hgb 11.7 L, Hct 35.1 L, MCV 88.0, MCH 29.3, MCHC 33.3, RDW Std Deviation 50.2 H, RDW Coeff of Eboni 15.6 H, Plt Count 72 L, MPV 9.4, Immature Gran % (Auto) 0.500, Neut % (Auto) 84.5 H, Lymph % (Auto) 4.6 L, [place] % (Auto) 9.5, Eos % (Auto) 0.7, Baso % (Auto) 0.2, Absolute Neuts (auto) 9.9 H, Absolute Lymphs (auto) 0.54 L, Nucleated RBC % 0, Differential Comment , Platelet Estimate MOD 03/14/22 10:50: Sodium 138, Potassium 3.7, Chloride 103, Carbon Dioxide 28.0, Anion Gap 7, BUN 23 H, Creatinine 1.01, Estim Creat Clear Calc 38.06, Est GFR (MDRD) Af Amer 69, Est GFR (MDRD) Non-Af 57 L, BUN/Creatinine Ratio 22.8 H, Glucose 121 H, Calcium 9.4 Radiology Impression Abdomen/Pelvis CT 03/14/22 10:25 IMPRESSION: Findings suggestive of colitis of the sigmoid colon. Surgical anastomosis is seen at the level of rectum. Status post interpedicular screw and bonny fixation of the lower thoracic and lumbar spine. Status post bilateral total hip replacement. Atrophy of the psoas muscles. Electronically Signed: Jean Marie Fuentes MD at 12:13 EST , Assessment & Plan Assessment/Plan (1) Colitis: PLAN: Plan 1. Acute sigmoid colitis-etiology unclear, possibly secondary to ischemic colitis, patient has had no history of colitis in the past. Patient will be admitted to [facility], she will be started on Zosyn, she will be seen in consultation by gastroenterology. #2 acute cystitis-again patient will be on IV Zosyn #3 left-sided glioblastoma-patient will be off her oral chemo meds while she is in the hospital #4 essential hypertension-patient will remain on her current medications #5 [id number] is stable at this time Total clinical time spent by myself addressing the patient's medical issues, reviewing the data, and collaborating with patient's care team: 75-minute Charges/Coding Visit Charges Inpatient E&M: 36858 Init Hosp L3
--- NOTE | 2022-03-14 14:18 | ED.RN ---
THIS RN SPOKE TO DR. FRIEND. PER DR. PHUC OSMAN.
[2022-03-14 14:45] VITALS: BP 112/43; PULSE 72; RESP 16; TEMP 37.3; O2SAT 99
[2022-03-14 14:52] VITALS: BMI 29.4
[2022-03-14 15:02] LABS: Lactic Acid 0.9 mmol/L (0.4-1.9)
[2022-03-14] MEDS: 0.9% Saline Lock 10 ML Syringe IV (15:57)
[2022-03-14] MEDS: 0.9% Normal Saline 1,000 ML 75 ML IV (16:03)
[2022-03-14 21:15] VITALS: BP 113/40; PULSE 72; RESP 18; TEMP 36.6; O2SAT 97
[2022-03-14] MEDS: Acyclovir 200 MG Capsule 400 MG PO (21:36)
[2022-03-15 03:25] VITALS: BP 108/34; PULSE 69; RESP 16; TEMP 36.6; O2SAT 96
[2022-03-15] MEDS: 0.9% Normal Saline 1,000 ML 75 ML IV (05:18)
[2022-03-15 07:28] LABS: Absolute Lymphocyte Count 0.82 X10^3/uL (0.83-4.51); Absolute Neutrophil Count 4.3 X10^3/uL (2.0-7.7); Basophil# 0.01 X10^3/uL; Basophil% 0.2 % (0-1); Eosinophils% 4.8 % (0-5); Lymphocyte # 0.82 X10^3/ul (0.83-4.51); Lymphocyte % 13.2 % (19-41); Mean Corp Hgb Conc 33.3 g/dL (32-36); Mean Corpuscular Hgb 29.8 pg (27.0-32.0); Mean Corpuscular Volume 89.4 fL (81-99); Monocyte# 0.75 X10^3/uL; Monocyte% 12.1 % (0-10); NRBC Flagged by Analyzer 0 % (0-5); Neutrophil # 4.31 X10^3/uL (2.7-7.7); Neutrophil % 69.4 % (47-70); POSITIVE COUNT YES; Platelet Count 59 K/mm3 (150-450); RBC Distribution Width CV 15.9 % (11.6-14.6); RBC Distribution Width SD 51.8 fl (35.1-43.9); Red Blood Count 3.02 M/mm3 (4.2-5.4); White Blood Count 6.2 K/mm3 (4.4-11.0)
[2022-03-15 08:00] VITALS: BP 118/60; PULSE 65; RESP 18; TEMP 37.1; O2SAT 98
[2022-03-15] MEDS: Acyclovir 200 MG Capsule 400 MG PO (09:01)
[2022-03-15] MEDS: Losartan Potassium 100 MG Tablet PO (09:01)
[2022-03-15] MEDS: hydroCHLOROthiazide 12.5mg 12.5 MG PO (09:01)
--- NOTE | 2022-03-15 09:14 | NURSING ---
pt refusing SCD's
[2022-03-15 09:15] VITALS: PULSE 80
--- NOTE | 2022-03-15 09:22 | PN.HOSP_ITS ---
Subjective Subjective Follow-up for probable acute ischemic colitis: Patient was seen and examined Objective Data Objective Data Vital Signs: Vital Signs Temp Pulse Resp BP Pulse Ox O2 Del Method 98.8 F 65 18 118/60 98 Room Air 03/15/22 08:00 03/15/22 08:00 03/15/22 08:00 03/15/22 08:00 03/15/22 08:00 03/15/22 08:00 Oxygen Delivery Method Room Air Weight: 73.1 kg Body Mass Index (BMI) 29.4 Intake & Output: Intake and Output for Last 24 Hours 03/13/22 03/14/22 03/15/22 23:59 23:59 23:59 Intake Total 1333.25 / 1333.25 1088.75 / 1088.75 Balance 1333.25 / 1333.25 1088.75 / 1088.75 Lab / Micro Data Result Diagrams: 03/15/22 07:10 03/14/22 10:50 Labs: Laboratory Results - last 24 hr 03/14/22 10:30: Urine Color Yellow, Urine Clarity Cloudy, Urine pH 6.0, Ur Specific [place] 1.010, Urine Protein 15 H, Urine Glucose (UA) Normal, Urine Ketones Negative, Urine Occult Blood 50 H, Urine Nitrite Negative, Urine Bilirubin Negative, Urine Urobilinogen Normal, Ur Leukocyte Esterase 500 H, Urine RBC 0-5 SEEN, Urine WBC >100 SEEN, Ur Squamous Epith Cells 5-10 SEEN, Urine Bacteria 2+, Urine Mucus RARE 03/14/22 10:50: WBC 11.7 H, RBC 3.99 L, Hgb 11.7 L, Hct 35.1 L, MCV 88.0, MCH 29.3, MCHC 33.3, RDW Std Deviation 50.2 H, RDW Coeff of [place]boni 15.6 H, Plt Count 72 L, MPV 9.4, Immature Gran % (Auto) 0.500, Neut % (Auto) 84.5 H, Lymph % (Auto) 4.6 L, [place] % (Auto) 9.5, Eos % (Auto) 0.7, Baso % (Auto) 0.2, Absolute Neuts (auto) 9.9 H, Absolute Lymphs (auto) 0.54 L, Nucleated RBC % 0, Differential Comment , Platelet Estimate MOD DEC 03/14/22 10:50: Sodium 138, Potassium 3.7, Chloride 103, Carbon Dioxide 28.0, Anion Gap 7, BUN 23 H, Creatinine 1.01, Estim Creat Clear Calc 38.06, Est GFR (MDRD) Af Amer 69, Est GFR (MDRD) Non-Af 57 L, BUN/Creatinine Ratio 22.8 H, Glucose 121 H, Calcium 9.4 03/14/22 14:30: Lactic Acid 0.9 03/15/22 07:10: WBC 6.2, RBC 3.02 L, Hgb 9.0 L, Hct 27.0 L, MCV 89.4, MCH 29.8, MCHC 33.3, RDW Std Deviation 51.8 H, RDW Coeff of [place]bon[place] 15.9 H, Plt Count 59 L, MPV 9.0, Immature Gran % (Auto) 0.300, Neut % (Auto) 69.4, Lymph % (Auto) 13.2 L , [place] % (Auto) 12.1 H, Eos % (Auto) 4.8, Baso % (Auto) 0.2, Absolute Neuts (auto) 4.3, Absolute Lymphs (auto) 0.82 L, Nucleated RBC % 0 Micro: Microbiology 03/15/22 01:50 Stool Enteric Bacteriology - Final Radiography Diagnostic Testing: Radiology Impression Abdomen/Pelvis CT 03/14/22 10:25 IMPRESSION: Findings suggestive of colitis of the sigmoid colon. Surgical anastomosis is seen at the level of rectum. Status post interpedicular screw and bonny fixation of the lower thoracic and lumbar spine. Status post bilateral total hip replacement. Atrophy of the psoas muscles. Electronically Signed: Jean Marie Fuentes MD at 12:13 EST , Physical Exam Narrative Physical exam: General: Alert, Oriented x3, Cooperative, No apparent distress HEENT: Atraumatic Oral: Moist Mucosa Neck: Supple Lungs: Clear to auscultation Cardiovascular: HS I+II, regular, no murmurs Abdomen: Bowel Sounds Present, Soft, Non Tender Extremities: No edema Skin: No rashes, No breakdown Neurological: Grossly intact Psych/Mental Status: Appropriate
--- NOTE | 2022-03-15 10:30 | CASEMGMT ---
RN ARVIND Face to Face with patient for initial transition planning/care coordination assessment. RN CM introduced self and role at [facility]. Patient sitting in chair, alert and oriented. Patient willing to participate in assessment and is able to answer all questions appropriately. Care providers, pharmacy, and demographics verified. Patient wishes to discharge home, denies need for home health at this time. Patient states she has no further needs or concerns at this time. CM to follow for discharge planning needs that may arise. PCP: [facility] Specialists: Donal, oncologist; Mala, radiologist Preferred Pharmacy: [facility] Insurance: [employer] [facility] Prescription Benefit: yes Living Will/HPOA: yes, daughter Jeimy Palencia. LNOK: daughter, significant other Living Arrangements: Patient lives with significant other in a single story home with ramp to enter. Patient states she is independent at home. Transportation: daughter, friends DME/HHC: Patient states she has shower chair, raised toilet, cane, walker, crutches, wheelchair, and grab bars at home. [facility] Patient has been to [facility] in the past. Disposition Plan: Patient to discharge home with family support and follow-up plans in place. Renetta LPOEZ, RN, CM
--- NOTE | 2022-03-15 11:14 | CON.PCM.GI_ITS ---
HPI Consult Data Date of Consult: 03/15/22 HPI Narrative Reason for Consultation: GI bleed HPI Narrative: WALTER MANCIA, is a ?76 F who presents to the emergency room at [facility] with complaints of left lower quadrant abdominal discomfort which started approximately 3 AM this morning, patient stated that she had 2 normal bowel movements today at home without any evidence of blood, after she came to the emergency room for evaluation at the urging of her oncologist, she had a bowel movement here in the ER which had streaks of blood in it.? Patient is currently undergoing treatment for a left-sided glioblastoma, it was entirely resected in November 2021, she has been undergoing radiation therapy for the past several weeks, she states that she will be finishing up with the radiation therapy next week, she did have radiation therapy today.? Patient takes oral chemo therapy medication for the glioblastoma.? Patient states she had a history of asthma, she has no history of coronary artery disease.? Patient had a past history of diverticulitis many years ago with resection of part of her colon. Work-up in the emergency room included a white blood cell count which was slightly elevated, patient is afebrile, CT of the abdomen pelvis was obtained which showed an area that appeared to be colitis in the sigmoid colon area.? Patient's UA was positive for bacteria and over 100 white cells indicating cystitis-patient has no symptoms presently of cystitis however.? Patient's BUN was slightly elevated at 23. Since having nose to bleeding episode she has not had any more GI bleeding per rectum. [facility] Medical History (Updated 03/14/22 @ 14:[address] Fidencio Daigle, DO) Brain cancer Chemotherapy induced nausea and vomiting Home Medications acetaminophen 500 mg tablet 1,000 mg PO Q6H PRN PRN Mild Pain (1-3) 01/22/18 [Rx Last Taken Unknown] ondansetron 8 mg disintegrating tablet (Zofran ODT) 8 mg PO Q8H PRN PRN Nausea #30 tabs 01/22/18 [Rx Last Taken 03/13/22] acyclovir 400 mg tablet 400 mg PO BID for radiation 03/14/22 [History Last Taken 03/14/22] hydrochlorothiazide 12.5 mg tablet 12.5 mg PO DAILY bp 03/14/22 [History Last Taken 03/14/22] losartan 100 mg tablet 100 mg PO DAILY bp 03/14/22 [History Last Taken 03/14/22] sulfamethoxazole 800 mg-trimethoprim 160 mg tablet 1 tab PO DAILY infection 03/14/22 [History Last Taken 03/14/22] temozolomide 140 mg capsule 140 mg PO DAILY chemo 03/14/22 [History Last Taken 03/13/22] Allergy/AdvReac Type Severity Reaction Status Date / Time vancomycin Allergy Rash Verified 07/25/19 14:44 Surgical History (Updated 03/14/22 @ 14:10 by Lori Smith) H/O total hip arthroplasty H/O total shoulder replacement Previous back surgery Total knee replacement status Social History (Updated 03/14/22 @ 11:[address] Jorge Crow MD) household members: none Smoking Status: Never smoker substance use type: does not use ROS Constitutional Constitutional: Denies anorexia, change in weight, fever(s), night sweats or weakness Eyes Eyes: Denies blurry vision, change in vision, discharge from eye(s) or eye pain Cardiovascular Cardiovascular: Denies chest pain, claudication, edema or palpitations Respiratory/Chest Respiratory/Chest: Denies cough, hemoptysis, shortness of breath at rest or shortness of breath with exertion Gastrointestinal Gastrointestinal: Reports abdominal pain and hematochezia; Denies constipation, diarrhea, hematemesis, melena, nausea or vomiting Genitourinary Genitourinary: Denies burning urination, difficulty urinating, dysuria, hematuria, nocturia, urinary frequency, urinary hesitancy, urinary incontinence or urinary urgency Musculoskeletal Musculoskeletal: Denies back pain, joint pain, joint stiffness, joint swelling, myalgias or neck pain Neurologic Neurologic: Denies abnormal gait, abnormal speech, dizziness, focal weakness, headache(s), loss of vision, numbness, other visual disturbances, paresthesias, syncope or tingling Psychiatric Psychiatric: Denies anxiety, cognitive impairment, depression, irritability, mood swings or suicidal ideation Endocrine Endocrinology: Denies change in body appearance, cold intolerance, excessive sweating, heat intolerance, polydipsia or polyuria Hematologic/Lymphatic Hematologic/Lymphatic: Denies none, anemia, easy bleeding, easy bruising or lymphadenopathy Allergic/Immunologic Allergic/Immunologic: Denies rhinitis, urticaria, eczemia or asthma Physical Exam Narrative Physical exam: General: Alert, Oriented x3, Cooperative, No apparent distress HEENT: Atraumatic Oral: Moist Mucosa Neck: Supple Lungs: Clear to auscultation Cardiovascular: HS I+II, regular, no murmurs Abdomen: Bowel Sounds Present, Soft, Non Tender Extremities: No edema Skin: No rashes, No breakdown Neurological: Grossly intact Psych/Mental Status: Appropriate Lab / Micro Data Result Diagrams: 03/15/22 07:10 03/14/22 10:50 Labs: Laboratory Results - last 24 hr 03/14/22 10:50: Differential Comment , Platelet Estimate MOD 03/14/22 14:30: Lactic Acid 0.9 03/15/22 07:10: WBC 6.2, RBC 3.02 L, Hgb 9.0 L, Hct 27.0 L, MCV 89.4, MCH 29.8, MCHC 33.3, RDW Std Deviation 51.8 H, RDW Coeff of Eboni 15.9 H, Plt Count 59 L, MPV 9.0, Immature Gran % (Auto) 0.300, Neut % (Auto) 69.4, Lymph % (Auto) 13.2 L , [place] % (Auto) 12.1 H, Eos % (Auto) 4.8, Baso % (Auto) 0.2, Absolute Neuts (auto) 4.3, Absolute Lymphs (auto) 0.82 L, Nucleated RBC % 0 Micro: Microbiology 03/15/22 01:50 Stool Enteric Bacteriology - Final Radiology Impression Abdomen/Pelvis CT 03/14/22 10:25 IMPRESSION: Findings suggestive of colitis of the sigmoid colon. Surgical anastomosis is seen at the level of rectum. Status post interpedicular screw and bonny fixation of the lower thoracic and lumbar spine. Status post bilateral total hip replacement. Atrophy of the psoas muscles. Electronically Signed: Jean Marie Fuentes MD at 12:13 EST , Assessment & Plan Assessment/Plan (1) Colitis: PLAN: Plan 1. Acute sigmoid colitis-likely secondary to ischemic colitis. 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 She does have a history of perforated diverticulitis status post resection 30 years ago. I can still see other diverticuli in her colon therefore also the differential diagnosis for lower GI bleed would be diverticular in her. She has a history of chronic idiopathic constipation and had been constipated prior to her having diarrhea and lower GI bleeding. Therefore also need for diagnosis would be stercoral ulcer syndrome. I did not appreciate any gross hemorrhoids on exam. However she did have stool in the rectal vault that did not have any blood on rectal exam. She does not have any pain and has had a regular bowel movement since being in the hospital. She can likely be discharged to home with follow-up as an outpatient. She may need a flexible sigmoidoscopy in the near future. Charges/Coding Visit Charges Inpatient E&M: 43521 Init Hosp L3
--- NOTE | 2022-03-15 12:01 | DCINST_ITS ---
Discharge Instructions Diet Discharge Diet: Low fat / Low cholesterol and 2000 mg Sodium Diet Activity Discharge Activity: Return to Normal Activity Follow Up Care Test Results: Test results from this visit will be discussed in further detail at your follow- up appointment, if applicable. Discharge Plan Admission Admit Date/Time: 03/14/22 14:08 Primary Reason for Your Visit: Acute ischemic colitis Attending Provider: Shira De Jesus Primary Care Provider: Ellie Daigle Consulting Providers: Fidencio Daigle Instructions Additional Instructions / Restrictions: Continue to keep yourself hydrated Follow-up with your primary care doctor within 1 week Discharge Orders/Prescriptions Prescriptions: Continued acetaminophen 500 MG tablet 1,000 mg PO Q6H PRN PRN (Reason: Mild Pain (-05/02)) 0RF ondansetron [Zofran ODT] 8 MG tablet,disintegrating 8 mg PO Q8H PRN PRN (Reason: Nausea) Qty: 30 0RF acyclovir 400 mg tablet 400 mg PO BID Label Comments: TAKE 1 TABLET BY MOUTH TWICE DAILY BEGINNING THE FIRST DAY OF RADIATION TREATMENT sulfamethoxazole-trimethoprim 800-160 mg tablet 1 tab PO DAILY Label Comments: TAKE ONE TABLET BY MOUTH EVERY THURSDAY, THURSDAY AND THURSDAY DURING RADIATON. losartan 100 mg tablet 100 mg PO DAILY Label Comments: TAKE 1 TABLET BY MOUTH ONCE DAILY hydrochlorothiazide 12.5 mg tablet 12.5 mg PO DAILY Label Comments: TAKE 1 TABLET BY MOUTH ONCE DAILY temozolomide 140 mg capsule 140 mg PO DAILY Label Comments: TAKE 1 CAPSULE BY MOUTH ONCE DAILY ON EMPTY STOMACH BEGINNING THE FIRST DAY OF RADIATION Referrals / Follow Up: Ellie Daigle MD [Primary Care Provider] - In 1 Week Disposition Disposition (needs filled in before D/C Order can be placed): Home, Self Care
--- NOTE | 2022-03-15 12:04 | DS.PCM_ITS ---
Providers Date of Admission: 03/14/22 Date of Discharge: 03/15/22 Primary Care Physician: Dr. Ellie Daigle MD Consultations 03/14/22 15:11 Consult: Gastroenterology Routine Consulting Provider: [facility] Reason for Consult: colitis EMERGENT Consult: No MD Notified: Yes Date Notified: 03/14/22 Time Notified: 14:17 Method of Notification: Verbal Reason For Visit: ISCHEMIC COLITIS Diagnosis Discharge Diagnosis (1) Colitis: Status: Acute Code(s): K52.9 - Noninfective gastroenteritis and colitis, unspecified Medications at Discharge Home Medications acetaminophen 500 mg tablet 1,000 mg PO Q6H PRN PRN Mild Pain (1-3/10) 01/22/18 ondansetron 8 mg disintegrating tablet (Zofran ODT) 8 mg PO Q8H PRN PRN Nausea #30 tabs 01/22/18 acyclovir 400 mg tablet 400 mg PO BID for radiation 03/14/22 hydrochlorothiazide 12.5 mg tablet 12.5 mg PO DAILY bp 03/14/22 losartan 100 mg tablet 100 mg PO DAILY bp 03/14/22 sulfamethoxazole 800 mg-trimethoprim 160 mg tablet 1 tab PO DAILY infection 03/14/22 temozolomide 140 mg capsule 140 mg PO DAILY chemo 03/14/22 Hospital Course Operations None Procedures None Summary of Care Provided Minutes Spent on Discharge: 35 Hospital Course: 76-year-old female with a past medical history of left-sided glioblastoma status post resection, undergoing radiation and chemotherapy. Patient comes in with complaints of left lower quadrant abdominal discomfort that started on the morning of admission. She had 2 bowel movements at home without blood. She had a bowel movement in the ED that has streaks of blood in it. Her vitals in the ED were stable. CT of the abdomen and pelvis showed colitis in the sigmoid area. Patient was admitted to the [facility] floor and monitored. She did not have a bowel movement while here. GI was consulted, discussed with GI, recommended outpatient follow-up. Patient was asked to keep yourself hydrated. Physical Exam Narrative Physical exam: General: Alert, Oriented x3, Cooperative HEENT: Atraumatic Oral: Moist Mucosa Neck: Supple Lungs: Clear to auscultation Cardiovascular: HS I+II, regular, no murmurs Abdomen: Bowel Sounds Present, Soft, Non Tender Extremities: No edema Skin: No rashes, No breakdown Neurological: Grossly intact Psych/Mental Status: Appropriate Weight / BMI Weight Weight: 73.1 kg Body Mass Index (BMI) 29.4 ABG / Lab / Microbiology Data Result Diagrams: 03/15/22 07:10 03/14/22 10:50 Laboratory: Laboratory Results - last 24 hr 03/14/22 14:30: Lactic Acid 0.9 03/15/22 07:10: WBC 6.2, RBC 3.02 L, Hgb 9.0 L, Hct 27.0 L, MCV 89.4, MCH 29.8, MCHC 33.3, RDW Std Deviation 51.8 H, RDW Coeff of Eboni 15.9 H, Plt Count 59 L, MPV 9.0, Immature Gran % (Auto) 0.300, Neut % (Auto) 69.4, Lymph % (Auto) 13.2 L , [place] % (Auto) 12.1 H, Eos % (Auto) 4.8, Baso % (Auto) 0.2, Absolute Neuts (auto) 4.3, Absolute Lymphs (auto) 0.82 L, Nucleated RBC % 0 Microbiology: Microbiology 03/15/22 01:50 Stool Enteric Bacteriology - Final Radiography Diagnostic Testing: Radiology Impression Abdomen/Pelvis CT 03/14/22 10:25 IMPRESSION: Findings suggestive of colitis of the sigmoid colon. Surgical anastomosis is seen at the level of rectum. Status post interpedicular screw and bonny fixation of the lower thoracic and lumbar spine. Status post bilateral total hip replacement. Atrophy of the psoas muscles. Electronically Signed: Jean Marie Fuentes MD at 12:13 EST , D/C Instructions Discharge Diet: Low fat / Low cholesterol and 2000 mg Sodium Diet Meaningful Use Info Meaningful Use Diagnoses (Choose all that apply): None applicable Discharge Plan Admission Admit Date/Time: 03/14/22 14:08 Primary Reason for Your Visit: Acute ischemic colitis Attending Provider: Shira De Jesus Primary Care Provider: Ellie Daigle Consulting Providers: Fidencio Daigle Instructions Additional Instructions / Restrictions: Continue to keep yourself hydrated Follow-up with your primary care doctor within 1 week Discharge Orders/Prescriptions Prescriptions: Continued acetaminophen 500 MG tablet 1,000 mg PO Q6H PRN PRN (Reason: Mild Pain (-05/02)) 0RF ondansetron [Zofran ODT] 8 MG tablet,disintegrating 8 mg PO Q8H PRN PRN (Reason: Nausea) Qty: 30 0RF acyclovir 400 mg tablet 400 mg PO BID Label Comments: TAKE 1 TABLET BY MOUTH TWICE DAILY BEGINNING THE FIRST DAY OF RADIATION TREATMENT sulfamethoxazole-trimethoprim 800-160 mg tablet 1 tab PO DAILY Label Comments: TAKE ONE TABLET BY MOUTH EVERY THURSDAY, THURSDAY AND THURSDAY DURING RADIATON. losartan 100 mg tablet 100 mg PO DAILY Label Comments: TAKE 1 TABLET BY MOUTH ONCE DAILY hydrochlorothiazide 12.5 mg tablet 12.5 mg PO DAILY Label Comments: TAKE 1 TABLET BY MOUTH ONCE DAILY temozolomide 140 mg capsule 140 mg PO DAILY Label Comments: TAKE 1 CAPSULE BY MOUTH ONCE DAILY ON EMPTY STOMACH BEGINNING THE FIRST DAY OF RADIATION Referrals / Follow Up: Ellie Daigle MD [Primary Care Provider] - In 1 Week Disposition Disposition (needs filled in before D/C Order can be placed): Home, Self Care Charges/Coding Visit Charges Inpatient E&M: 94104 Disch Hosp >30min
--- NOTE | 2022-03-15 14:53 | NURSING ---
d/c meds/instructions given to daughter who is here to drive pt home
== END 2022-03-15 14:44 | disposition home or self-care (01) | DRG 394 ==
LOC: ED 13:20 → MS3 03-15 07:19
PROVIDERS: Admitting Provider Internal Medicine; Emergency Provider Emergency Medicine; PCP Internal Medicine; Visit Provider Internal Medicine
DX: K52.9 Noninfective gastroenteritis and colitis, unspecified (principal); C71.9 Malignant neoplasm of brain, unspecified; N30.00 Acute cystitis without hematuria; J45.909 Unspecified asthma, uncomplicated; I10 Essential (primary) hypertension; Z92.21 Personal history of antineoplastic chemotherapy; Z79.899 Other long term (current) drug therapy
CPT/HCPCS: 36415; 74177; 80048; 81001; 83605; 85025; 87086; 87088; 87186; 87506; 96361; 96365; 96366; 96376; 99221; 99285; J7030; J7050; Q9967; A4216; G0378

== ENCOUNTER 2022-06-23 12:28 | Emergency (ER) | payer MEDICARE, SELFPAY ==
[2022-06-23 12:29] VITALS: BP 159/65; PULSE 91; RESP 16; TEMP 36.6; O2SAT 100; BMI 27.4
--- NOTE | 2022-06-23 12:49 | EDS_ITS ---
HPI HPI - Fall History of Present Illness Chief Complaint: Fall Narrative Narrative: 76-year-old female here with concern for frequent falls. Per oncology clinical care manager note daughter states patient passed out at [facility] 2 days ago falling forward hitting the bottom of her neck on the cart. Patient's daughter further states there is bruising on the side that the patient landed on. Daughter states patient's had decreased neck range of motion since the fall. Was told by her oncologist Dr. Mansfield to be evaluated for fall, syncope and neck pain. The patient states she was at the grocery store when she fell forward. She is unsure if she passed out. She remembers hitting her head and neck. Denies any seizure-like activity. Denies any recent bleeding diathesis. Denies any symptomatology before after fall. Denies any lightheadedness, weakness, fat igue, chest pain, shortness of breath. Specifically denies any melena or hematochezia. Denies any hematuria, hemoptysis. Denies any headache prior to falling [facility] Medical History (Updated 06/23/22 @ 15:[address] Myron Cancino, ) Brain cancer Chemotherapy induced nausea and vomiting Home Medications acetaminophen 500 mg tablet 1,000 mg PO Q6H PRN PRN Mild Pain (-05/02) 01/22/18 [Rx Last Taken Unknown] ondansetron 8 mg disintegrating tablet (Zofran ODT) 8 mg PO Q8H PRN PRN Nausea #30 tabs 01/22/18 [Rx Last Taken 03/13/22] acyclovir 400 mg tablet 400 mg PO BID for radiation 03/14/22 [History Last Taken 03/14/22] hydrochlorothiazide 12.5 mg tablet 12.5 mg PO DAILY bp 03/14/22 [History Last Taken 03/14/22] losartan 100 mg tablet 100 mg PO DAILY bp 03/14/22 [History Last Taken 03/14/22] sulfamethoxazole 800 mg-trimethoprim 160 mg tablet 1 tab PO DAILY infection 03/14/22 [History Last Taken 03/14/22] temozolomide 140 mg capsule 140 mg PO DAILY chemo 03/14/22 [History Last Taken 03/13/22] Allergy/AdvReac Type Severity Reaction Status Date / Time vancomycin Allergy Rash Verified 06/23/22 12:29 Surgical History H/O total hip arthroplasty H/O total shoulder replacement Previous back surgery Total knee replacement status Social History (Updated 03/14/22 @ 11:[address] Jorge Crow MD) household members: none Smoking Status: Never smoker substance use type: does not use ROS ROS ED ROS Narrative Constitutional: Denies fever HEENT: Denies sore throat Neck: Endorses neck pain Cardiovascular: Denies chest pain, endorses syncope Respiratory: Denies shortness of breath GI: Denies nausea vomiting or abdominal pain : Denies changes in urinary habits Musculoskeletal: Denies muscle or joint pain Neurologic: Denies numbness weakness or loss of sensation Skin denies rash EXAM Physical Exam Narrative Exam Narrative: Primary Survey Airway: Intact Breathing: Bilateral breath sounds Circulation: Palpable bilateral femorals, Palpable bilateral radial, Palpable bilateral DP and Palpable bilateral PT Disability / Spine precautions GCS Score: Eye Openin Verbal Response: 5 Motor Response: 6 Secondary Survey Constitutional: Please see MDM Head: Atraumatic, Midface stable, NO jaw malocclusion, No Cephalohematoma, and No Lacerations noted Eye: Pupils equal round and reactive to light, Extraocular muscles intact and No periorbital ecchymosis or stepoff, no evidence of entrapment ENT: Oropharynx clear, no lacerations, no hemotympanum, no raccoon eyes or lazo sign Cervical spine / Neck: No cervical spine bony tenderness, crepitance, or stepoff deformity Trachea midline, bruising and TTP over right lateral neck. Lungs: Clear to auscultation, No asymmetric rise and No crepitus, no flail chest Cardiac: Regular rate and rhythm and No murmurs Abdomen: Soft, Nontender and No rebound Pelvis: Pelvis stable to compression : No evidence of genital injury Back: No midline bony tenderness to thoracic/lumbar/sacral spines Neuro: At baseline, intact strength and sensation in bilateral upper and lower extremities. 2+ patellar reflexes bilaterally. Extremities: NO gross Deformities Psych: Normal affect Nursing triage notes reviewed, Vital signs reviewed Const Vital Signs: 06/23/22 12:29 06/23/22 14:00 06/23/22 15:13 Temperature 97.8 F Temperature Source Temporal Pulse Rate 91 65 87 Respiratory Rate 16 17 16 Blood Pressure 159/65 H 151/87 H Blood Pressure Mean 96 108 Pulse Ox 100 97 96 Oxygen Delivery Method Room Air Room Air 06/23/22 16:05 Temperature Temperature Source Pulse Rate 87 Respiratory Rate 16 Blood Pressure 140/87 H Blood Pressure Mean 104 Pulse Ox 99 Oxygen Delivery Method MDM MDM MDM Narrative Medical decision making narrative: Chief Complaint: Fall, neck pain External records reviewed: Last CT scan of the brain was from 2018 showed no evidence of acute intracranial abnormality, MRI of the brain in 2018 was also negative MDM: Patient was hemodynamically stable, afebrile, nontoxic-appearing. No focal neurologic deficits. He had bruising to right side of the neck. Primary secondary trauma surveys were concerning for the following I considered the following differential diagnosis: Intracranial hemorrhage, cervical spine traumatic abnormality such as fracture dislocation, arrhythmia, anemia, electrolyte abnormality, myocardial ischemia. I obtained a broad lab and imaging work-up to further elucidate etiology patient complaints. CT scans of the head and neck were negative for acute traumatic injury. Labs were remarkable for remarkable for severe anemia (no bleeding diathesis), electrolyte abnormalities, no troponin elevation. I discussed the patient risk given syncope advanced age. I discussed possible hospital admission. I discussed the need for close outpatient follow-up for repeat blood test given significant anemia that was downtrending but was not yet requiring blood transfusion. Patient stated since her work-up did not reveal evidence of acute life-threatening etiology she prefers to be discharged home with close outpatient oncology and PCP and/or oncology follow-up. Patient appropriate discharge home. Factors affecting care: History of GBM status post resection Social determinants of health: Poor health literacy History obtained from others: The patient's daughter Shared decision making: I will have a discussion with the patient and or visitors regarding risk/benefits of further testing or admission. They will be made aware of of the risk/benefits inherent in this decision they will be given the opportunity to voice understanding. Consults: none History & Record Review Discussion w/independent historian: Family Additional record(s) reviewed:: Prior outpatient record Lab Data Attestation: I reviewed the patient's lab results. Lab results narrative: EKG with normal sinus rhythm, normal axis, normal intervals, no STEMI CBC with no leukocytosis, severe anemia (downtrending from prior), no thrombocytopenia BMP without evidence of significant electrolyte abnormalities, no anion gap, no acute kidney injury. LFTs show no evidence of hepatobiliary pathology. Troponin is negative, no evidence of myocardial ischemia CT scan of the head, cervical spine shows no evidence of acute traumatic injury Labs: Laboratory Results - last 24 hr 06/23/22 06/23/22 06/23/22 13:40 13:40 15:55 WBC 4.5 RBC 2.20 L Hgb 7.2 L Hct 21.9 L MCV 99.5 H MCH 32.7 H MCHC 32.9 RDW Std Deviation 54.1 H RDW Coeff of Eboni 14.9 H Plt Count 114 L MPV 9.3 Sodium 140 Potassium 4.1 Chloride 105 Carbon Dioxide 28.0 Anion Gap 7 BUN 36 H Creatinine 1.03 H Estim Creat Clear Calc 37.33 Est GFR (MDRD) Af Amer 67 Est GFR (MDRD) Non-Af 55 L BUN/Creatinine Ratio 35.0 H Glucose 100 Calcium 9.2 Total Bilirubin 0.60 AST 22 ALT 25 Alkaline Phosphatase 77 Troponin I High Sens 5 5 Total Protein 6.7 Albumin 3.3 Globulin 3.4 Albumin/Globulin Ratio 1.0 Radiography Chest X-Ray - ED: Read by ED Physician Diagnostic Testing: Clinical Impression(s) from Imaging Studies Brain CT 06/23/22 13:12 IMPRESSION: Stable examination. Electronically Signed: Jean Marie Fuentes MD at 14:12 EDT , Cervical Spine CT 06/23/22 13:12 IMPRESSION: Multilevel degenerative changes, as described above. Status post anterior fusion at the C4-C5 and C5-C6 levels with prosthetic disc placement. Electronically Signed: Jean Marie Fuentes MD at 14:14 EDT , Chest X-Ray 06/23/22 13:50 IMPRESSION: No acute abnormality is seen. Electronically Signed: Jean Marie Fuentes MD at 14:09 EDT , I have personally reviewed the patient's chest x-ray. Chest x-ray is unremarkable for pulmonary edema, pneumothorax, pneumonia or focal cardiopulmonary abnormality. Discharge Plan Triage Chief Complaint: Fall ED Provider: Myron Cancino Dx/Rx/DC Orders Clinical Impression: Fall, Syncope, Anemia Instructions: Anemia Prescriptions: No Action acetaminophen 500 MG tablet 1,000 mg PO Q6H PRN PRN (Reason: Mild Pain (-05/02)) 0RF ondansetron [Zofran ODT] 8 MG tablet,disintegrating 8 mg PO Q8H PRN PRN (Reason: Nausea) Qty: 30 0RF acyclovir 400 mg tablet 400 mg PO BID Label Comments: TAKE 1 TABLET BY MOUTH TWICE DAILY BEGINNING THE FIRST DAY OF RADIATION TREATMENT sulfamethoxazole-trimethoprim 800-160 mg tablet 1 tab PO DAILY Label Comments: TAKE ONE TABLET BY MOUTH EVERY THURSDAY, THURSDAY AND THURSDAY DURING RADIATON. losartan 100 mg tablet 100 mg PO DAILY Label Comments: TAKE 1 TABLET BY MOUTH ONCE DAILY hydrochlorothiazide 12.5 mg tablet 12.5 mg PO DAILY Label Comments: TAKE 1 TABLET BY MOUTH ONCE DAILY temozolomide 140 mg capsule 140 mg PO DAILY Label Comments: TAKE 1 CAPSULE BY MOUTH ONCE DAILY ON EMPTY STOMACH BEGINNING THE FIRST DAY OF RADIATION Primary Care Provider: Ellie Daigle Referrals: Ellie Daigle MD [Primary Care Provider] - Activity Restrictions/Additional Instructions: Thank you for trusting us with your care today! Please take Tylenol every 6 hours as needed for pain and fever control. You can take up to 3 325 mg for total of 975 mg Tylenol pills every 6 hours. You may take a total of two 500 mg for total of 1000 mg of Tylenol every 6 hours. Please do not exceed 4000 mg of Tylenol daily. Please avoid nonsteroidal anti- inflammatory drugs such as ibuprofen, Motrin, Aleve as these can increase bleeding risk Please return to the emergency department if your symptoms change or worsen. Specifically if develop lightheadedness, fatigue, if you pass out, develop chest pain. Please follow with your primary care physician and/or oncologist for further outpatient evaluation and management. Disposition Disposition: Home, Self Care
--- NOTE | 2022-06-23 13:12 | CT_ITS ---
STUDY: CT CERVICAL SPINE WITHOUT CONTRAST REASON FOR EXAM: Female, 76 years old. History of fall. Headaches and neck pain. RADIATION DOSAGE (If Supplied By Facility): CTDIvol = ( 16.13 ) mGy, DLP = ( 282.49 ) mGycm TECHNIQUE: High resolution transaxial imaging was performed without contrast material. Sagittal and coronal images were reconstructed. Individualized dose optimization techniques were used for this CT. COMPARISON: None FINDINGS: Normal craniovertebral junction. There are degenerative changes of the anterior atlantoaxial articulation. Normal odontoid process. There is straightening of the normal cervical lordosis. Prior anterior fusion and disc placement at the C4-C5 and C5-C6 levels. C2-3: Facet joint osteoarthritis and hypertrophy worse on the left side. Uncovertebral arthrosis. Mild degree of bilateral neural foraminal stenosis. C3-4: Moderate degree of disc space narrowing. Spondylosis. Uncovertebral arthrosis and hypertrophy of the facet joints worse on the left side. Bilateral neural foraminal stenosis worse on the left side. C4-5: The patient is status post anterior fusion with screw and plate fixation device. A prosthetic disc is seen. There is evidence of a uncovertebral arthrosis and mild degree of bilateral neural foraminal stenosis. Facet joint osteoarthritis. C5-6: Status post anterior fusion and disc replacement. Uncovertebral arthrosis. Bilateral neural foraminal stenosis worse on the right side. C6-7: Minimal anterior listhesis of the C6 on C7 most likely secondary to the facet joint osteoarthritis. C7-T1: Normal endplates. Normal disc height and morphology. Normal central canal and intervertebral neuroforamina. Normal visualized soft tissue structures. CT/Spine Cervical without Contras IMPRESSION: Multilevel degenerative changes, as described above. Status post anterior fusion at the C4-C5 and C5-C6 levels with prosthetic disc placement. Electronically Signed: Jean Marie Fuentes MD at 14:14 EDT ,
--- NOTE | 2022-06-23 13:12 | CT_ITS ---
STUDY: CT BRAIN WITHOUT CONTRAST REASON FOR EXAM: Female, 76 years old. Fall, head trauma. Headaches. Patient has a history of a cerebral neoplasm. RADIATION DOSAGE (If Supplied By Facility): CTDIvol = ( 47.06 ) mGy, DLP = ( 855.03 ) mGycm TECHNIQUE: Transaxial CT imaging of the brain was performed without administration of intravenous contrast material. Individualized dose optimization techniques were used for this CT. COMPARISON: Comparison is made with prior study done December 01, 2017. FINDINGS: Normal soft tissue structures. Normal calvarium. Normal size ventricles and extra-axial spaces for the patient''s age. Normal white matter tracts of the cerebral hemispheres. Normal basal ganglia and thalami. Normal brainstem. Normal cerebellum. There is no intracranial hemorrhage. There are no findings of an acute ischemic infarction. Atherosclerotic plaque formation of the vertebral arteries and the cavernous portions of the internal carotid arteries bilaterally. Partial opacification of the right maxillary sinus. This has improved as compared to prior study. Partial opacification of the ethmoid sinuses bilaterally. Nasal septal deviation towards the left side of the midline. CT/Brain/Head without Contrast IMPRESSION: Stable examination. Electronically Signed: Jean Marie Fuentes MD at 14:12 EDT ,
--- NOTE | 2022-06-23 13:50 | RAD_ITS ---
STUDY: X-RAY CHEST REASON FOR EXAM: Female, 76 years old. Syncope TECHNIQUE: Single AP portable view of the chest. COMPARISON: Comparison is made with prior study dated July 25, 2019. FINDINGS: The lungs are clear and expanded. There is no demonstrated pleural abnormality. Normal size heart. Normal mediastinum and awilda. Normal visualized pulmonary arteries. Normal visualized aortic arch and descending thoracic aorta. There are diffuse degenerative changes of the visualized thoracic spine. There is degenerative osteoarthritis of the bilateral shoulders. Prior fusion of the lower thoracic and upper lumbar spine as well as the cervical spine. There is no demonstrated abnormality of the visualized soft tissue structures of the upper abdomen. RAD/Chest 1 View (Portable) IMPRESSION: No acute abnormality is seen. Electronically Signed: Jean Marie Fuentes MD at 14:09 EDT ,
[2022-06-23 13:52] LABS: Hematocrit 21.9 % (37-47); Hemoglobin 7.2 g/dL (12.0-15.0); Mean Corp Hgb Conc 32.9 g/dL (32-36); Mean Corpuscular Hgb 32.7 pg (27.0-32.0); Mean Corpuscular Volume 99.5 fL (81-99); Mean Platelet Vol. 9.3 fl (6.2-12.0); Platelet Count 114 K/mm3 (150-450); RBC Distribution Width CV 14.9 % (11.6-14.6); RBC Distribution Width SD 54.1 fl (35.1-43.9); White Blood Count 4.5 K/mm3 (4.4-11.0)
[2022-06-23 14:00] VITALS: PULSE 65; RESP 17; O2SAT 97
[2022-06-23 14:08] LABS: AST(SGOT) 22 U/L (15-37); Alanine Aminotransfer ALT/SGPT 25 U/L (13-56); Albumin, Serum 3.3 g/dL (3.2-5.0); Alkaline Phosphatase 77 U/L (45-117); Anion Gap 7 (5-15); BUN 36 mg/dL (7-18); Calcium,Total 9.2 mg/dL (8.5-10.1); Chloride 105 mmol/L (98-107); Creatinine, Serum 1.03 mg/dL (0.55-1.02); EST Glomerular Filtration Rate 55 mL/min (>60); Est Glom Filt Rate - Afr Amer 67 mL/min (>60); Estimated Creatinine Clearance 37.33 ml/min; Globulin 3.4 g/dL (2.2-4.2); Glucose 100 mg/dL (74-106); Potassium 4.1 mmol/L (3.5-5.1); Protein, Total 6.7 g/dL (6.4-8.2); Sodium Level 140 mmol/L (136-145); Troponin-I HS 5 pg/mL (3.0-54.0)
[2022-06-23 15:13] VITALS: BP 151/87; PULSE 87; RESP 16; O2SAT 96
[2022-06-23] MEDS: Acetaminophen 500 MG Tablet PO (16:04)
[2022-06-23 16:05] VITALS: BP 140/87; PULSE 87; RESP 16; O2SAT 99
[2022-06-23 16:45] LABS: Troponin-I HS 5 pg/mL (3.0-54.0)
== END 2022-06-23 17:32 | disposition home or self-care (01) ==
PROVIDERS: Emergency Provider Emergency Medicine; PCP Internal Medicine; Visit Provider Emergency Medicine
DX: D64.9 Anemia, unspecified (principal); R55 Syncope and collapse; W01.198A Fall on same level from slipping, tripping and stumbling with subsequent striking against other object, initial encounter; Y92.512 Supermarket, store or market as the place of occurrence of the external cause; Z85.841 Personal history of malignant neoplasm of brain; Z92.21 Personal history of antineoplastic chemotherapy; S10.83XA Contusion of other specified part of neck, initial encounter
CPT/HCPCS: 70450; 71045; 72125; 80053; 84484; 85027; 93005; 99284; A4216

== ENCOUNTER 2022-06-24 16:55 | Outpatient (CLI) | payer MEDICARE, SELFPAY ==
[2022-06-25 09:49] VITALS: BP 128/55; PULSE 69; RESP 16; TEMP 36.3; O2SAT 99; BMI 26.2
[2022-06-25 10:39] VITALS: BP 105/59; PULSE 62; RESP 16; TEMP 36.2; O2SAT 99
[2022-06-25 11:39] VITALS: BP 125/66; PULSE 60; RESP 16; TEMP 36.2; O2SAT 100
[2022-06-25 12:21] VITALS: BP 137/62; PULSE 60; RESP 16; TEMP 36.3; O2SAT 100
== END 2022-06-24 16:56 | disposition home or self-care (01) ==
PROVIDERS: PCP Internal Medicine; Referring Provider Internal Medicine Hematology & Oncology; Visit Provider Internal Medicine Hematology & Oncology
DX: K62.5 Hemorrhage of anus and rectum (principal); D64.9 Anemia, unspecified
CPT/HCPCS: 36430; 86850; 86900; 86901; 86920; 86922; P9016

== ENCOUNTER 2022-08-28 23:34 | Inpatient (IN) | payer MEDICARE, SELFPAY ==
[2022-08-28 23:35] VITALS: BP 59/47; PULSE 104; RESP 22; TEMP 36.2; O2SAT 92; BMI 25.2
--- NOTE | 2022-08-28 23:46 | EKG12_ITS ---
Test Reason : ALT LOC Blood Pressure : / mmHG Vent. Rate : 091 BPM Atrial Rate : 091 BPM P-R Int : 148 ms QRS Dur : 090 ms QT Int : 350 ms P-R-T Axes : 044 078 078 degrees QTc Int : 430 ms Normal sinus rhythm Cannot rule out Inferior infarct , age undetermined Abnormal ECG Confirmed by POLI RYAN, MAXIM ([id number]), assistant production editor ARLETH LANDERS ([id number]) on 09/01/2022 1:08:05 PM Referred By: TABITHA Confirmed By:FIDEL ASHTON MD
[2022-08-28 23:51] VITALS: BP 72/35; PULSE 103; RESP 23; O2SAT 97
[2022-08-28 23:59] LABS: Absolute Lymphocyte Count 0.21 X10^3/uL (0.83-4.51); Absolute Neutrophil Count 7.6 X10^3/uL (2.0-7.7); Basophil# 0.07 X10^3/uL; Basophil% 0.8 % (0-1); Hematocrit 30.3 % (37-47); Hemoglobin 10.6 g/dL (12.0-15.0); Lymphocyte # 0.21 X10^3/ul (0.83-4.51); Lymphocyte % 2.3 % (19-41); Mean Corpuscular Hgb 33.7 pg (27.0-32.0); Mean Corpuscular Volume 96.2 fL (81-99); Mean Platelet Vol. 10.5 fl (6.2-12.0); Monocyte# 1.04 X10^3/uL; Monocyte% 11.5 % (0-10); NRBC Flagged by Analyzer 0 % (0-5); Neutrophil # 7.64 X10^3/uL (2.7-7.7); Neutrophil % 84.7 % (47-70); POSITIVE DIFFERENTIAL YES; POSITIVE MORPHOLOGY YES; Platelet Count 122 K/mm3 (150-450); RBC Distribution Width CV 14.3 % (11.6-14.6); RBC Distribution Width SD 49.2 fl (35.1-43.9); Red Blood Count 3.15 M/mm3 (4.2-5.4)
[2022-08-29] VITALS (34 sets, daily range): BP systolic 70–155; BP diastolic 33–91; PULSE 68–90; RESP 11–22; TEMP 36.1–37.2; O2SAT 96–100; BMI 25.7
[2022-08-29] LABS: Differential Indicated SCAN CRITERIA MET
--- NOTE | 2022-08-29 | RAD_ITS ---
EXAM: XR CHEST, 1 VIEW CLINICAL INDICATION: weakness TECHNIQUE: Frontal view of the chest. COMPARISON: Previous chest radiographs of 06/23/2022 and 07/25/2019. FINDINGS: LUNGS AND PLEURAL SPACES: Minimal chronic linear scarring at the left lung base laterally. No consolidation or edema. No pneumothorax. No effusion. HEART: Heart size remains within normal limits with normal pulmonary vasculature. MEDIASTINUM: Stable mild elongation and calcification of the thoracic aorta. BONES/JOINTS: Lower cervical fixation plate and screws again noted. Pedicle screws and rods again noted within the lower thoracic and upper lumbar spine. Severe degenerative osteoarthritis again noted affecting both shoulders. There is slight thoracic dextroscoliosis with thoracic spurring. SOFT TISSUES: Unremarkable. RAD/Chest 1 View (Portable) IMPRESSION: No significant interval change or acute process. Electronically Signed: Rubin Oneil MD at 1:15 EDT ,
--- NOTE | 2022-08-29 00:04 | CT_ITS ---
EXAM: CT HEAD WITHOUT INTRAVENOUS CONTRAST CLINICAL INDICATION: altered mental status TECHNIQUE: Multiple axial images were obtained of the head without intravenous contrast. This CT exam was performed using one or more of the following dose reduction techniques: automated exposure control, adjustment of the mA and/or kV according to patient size, and/or use of iterative reconstruction technique. RADIATION DOSE: Total DLP: 796.11 mGy-cm. COMPARISON: Previous cranial CT of 06/23/2022. FINDINGS: BRAIN AND EXTRA-AXIAL SPACES: Chronic encephalomalacia within the left temporal lobe with ex vacuo enlargement of the adjacent temporal horn. Very mild age-related atrophy is present with slight prominence of the cortical sulci, sylvian fissures and ventricles. Minimal patchy chronic small vessel ischemic changes are noted within the deep white matter tracts. No intra- or extra-axial hemorrhage. No intracranial mass or mass effect. Posterior fossa structures are unremarkable. No midline shift. Basal cisterns are patent. BONES/JOINTS: Previous left craniotomy. Hyperostosis frontalis interna incidentally noted. SINUSES: Right maxillary antrum is opacified with a thickened and sclerotic wall due to chronic sinusitis; this right maxillary antrum was subtotally opacified on the prior study but is now completely opacified. Minimal mucosal thickening and an air-fluid level at developed within the left maxillary antrum indicating acute left maxillary sinusitis. Small retention cyst noted within the right sphenoid sinus. One of the left anterior ethmoid air cells remains opacified. Possible polyp within the anterior aspect of each nasal cavity, larger on the left. MASTOID AIR CELLS: Unremarkable. Clear. ORBITS: Previous cataract surgery. OTHER: Atherosclerotic vascular calcification is present. The middle cerebral arteries are not hyperdense. CT/Brain/Head without Contrast IMPRESSION: Interval development of findings of acute left maxillary sinusitis. No other significant interval change. Previous left craniotomy with left temporal encephalomalacia. No hemorrhage or other acute intracranial abnormality. Electronically Signed: Rubin Oneil MD at 1:54 EDT ,
[2022-08-29 00:09] LABS: International Normalized Ratio 1.1; Prothrombin Time (Protime)PT. 14.7 SECONDS (11.7-14.9)
[2022-08-29 00:14] LABS: Color, Urine Amber (Yellow); Glucose, Dipstick Normal (Normal); Ketone-Dipstick 5 mg/dl (Negative); Leukocyte Esterase-Dipstick 100 /ul (Negative); Nitrite-Dipstick Positive (Negative); Occult Blood-Urine 10 /ul (Negative); Protein-Dipstick 30 mg/dl (Negative); Urine Clarity Clear (Clear); Urine Urobilinogen 8 mg/dl (Normal)
[2022-08-29 00:17] LABS: ALB/GLOB Ratio 0.9 RATIO (0.9-2.4); AST(SGOT) 48 U/L (15-37); Alanine Aminotransfer ALT/SGPT 29 U/L (13-56); Albumin, Serum 3.2 g/dL (3.2-5.0); Alkaline Phosphatase 60 U/L (45-117); Anion Gap 11 (5-15); BUN 64 mg/dL (7-18); BUN/Creat Ratio 20.4 RATIO (10-20); Calcium,Total 8.9 mg/dL (8.5-10.1); Chloride 105 mmol/L (98-107); Creatinine, Serum 3.14 mg/dL (0.55-1.02); EST Glomerular Filtration Rate 15 mL/min (>60); Est Glom Filt Rate - Afr Amer 19 mL/min (>60); Estimated Creatinine Clearance 12.24 ml/min; Globulin 3.6 g/dL (2.2-4.2); Glucose 170 mg/dL (74-106); Potassium 4.7 mmol/L (3.5-5.1); Protein, Total 6.8 g/dL (6.4-8.2); Sodium Level 138 mmol/L (136-145); Troponin-I HS 109 pg/mL (3.0-54.0)
[2022-08-29 00:22] LABS: Partial Thromboplast Time 27.5 Seconds (24.1-36.2)
[2022-08-29 00:24] LABS: Differential Comment SCANNED
[2022-08-29 00:25] LABS: Urine Bilirubin Dipstick 3 mg/dL (Negative)
[2022-08-29 00:25] LABS: Lactic Acid 2.1 mmol/L (0.4-1.9)
[2022-08-29 00:40] LABS: Bacteria 3+ /hpf (None Seen); Hyaline Cast 0-5 SEEN /lpf (0-5); Mucous, Urine 1+ /hpf (<or=2+); Red Blood Cells-Urine 0-5 SEEN /hpf (0-5); Squamous Epithelial Cells - UA 0-5 SEEN /hpf (5-10); White Blood Cells 0-5 SEEN /hpf (0-5)
--- NOTE | 2022-08-29 00:48 | CT_ITS ---
EXAM: CT ABDOMEN AND PELVIS WITHOUT INTRAVENOUS CONTRAST CLINICAL INDICATION: gi bleed TECHNIQUE: Helically acquired images were obtained of the abdomen and pelvis without intravenous contrast. This CT exam was performed using one or more of the following dose reduction techniques: automated exposure control, adjustment of the mA and/or kV according to patient size, and/or use of iterative reconstruction technique. RADIATION DOSE: Total DLP: 457.15 mGy-cm. COMPARISON: CT of 03/14/2022. FINDINGS: LIMITATIONS: Streak artifact arising from thoracolumbar pedicle screws and rods. Streak artifact from bilateral total hip prostheses. LOWER THORAX: Minimal atelectasis noted at the left lung base. No coronary artery calcification is visualized. No significant pericardial effusion. ABDOMEN: LIVER: Unremarkable. Homogeneous. GALLBLADDER AND BILE DUCTS: Gallbladder is normal in size. Streak artifact extends through the gallbladder. No calcified gallstones or pericholecystic stranding. No biliary ductal dilatation is noted. PANCREAS: Unremarkable. No focal cystic mass. SPLEEN: Unremarkable. Normal size without focal cystic or solid mass. ADRENALS: Unremarkable. No nodules. KIDNEYS AND URETERS: Unremarkable. Normal renal size and position. No hydronephrosis. No renal or obstructing ureteral stones. STOMACH AND BOWEL: There is moderate circumferential thickening and edema of the wall of the transverse colon, splenic flexure, descending colon and rectosigmoid colon. Surgical anastomosis again noted in the region of the rectosigmoid junction. There is minimal pericolonic haziness about the thick-walled portions of colon. No pneumatosis or extraluminal air identified. No mesenteric venous gas or portal venous gas is identified. No gastric mural thickening, periduodenal inflammatory changes or distended small bowel loops. PELVIS: APPENDIX: Not visualized. BLADDER: Urinary bladder is obscured. REPRODUCTIVE: Absent uterus. Lower pelvis obscured by streak artifact. ABDOMEN and PELVIS: INTRAPERITONEAL SPACE: Trace of perihepatic ascites secondary to colitis. No free air. BONES/JOINTS: Osseous structures are demineralized. Thoracolumbar fusion with pedicle screws and rods in place from T10 to L5 , with broad laminectomy from the L2-S1 levels. SOFT TISSUES: Unremarkable. No discrete abdominal or pelvic wall hernia. VASCULATURE: Mildly calcific abdominal aorta and its branches. No AAA. Abdominal aorta is non-dilated. LYMPH NODES: Scattered tiny nonspecific lymph nodes are seen within the small bowel mesentery. No para-aortic adenopathy. CT/Abdomen/Pelvis without Cont IMPRESSION: Findings of a moderate colitis involving the transverse, descending and rectosigmoid colon. Electronically Signed: Rubin Oneil MD at 2:18 EDT ,
[2022-08-29] MEDS: 0.9% Normal Saline 1,000 ML 999 ML IV ×2 (01:25)
--- NOTE | 2022-08-29 01:35 | EX.ED.DYSGE1 ---
HPI History of Present Illness Chief Complaint: Alt LOC Narrative Narrative: 76-year-old female presenting with her daughter for confusion. Apparently she slept all day today. She has a history of glioblastoma multiforme status post radiation therapy and is on chemotherapy and sees Dr. Mansfield. No reported fever today. Daughter states that she has been minimally responsive to her. No history of trauma or falls. Apparently her significant other states she slept all day and he called her stating that she was not acting correctly. There is some concern that her stools are dark. She is pale. She has not been eating well. ? PFSH [facility] Medical History Brain cancer Chemotherapy induced nausea and vomiting Home Medications acetaminophen 500 mg tablet 1,000 mg (2 x 500 mg) PO Q6H PRN PRN Mild Pain (1-3) 01/22/18 [Rx Last Taken Unknown] ondansetron 8 mg disintegrating tablet (Zofran ODT) 8 mg PO Q8H PRN PRN Nausea #30 tabs 01/22/18 [Rx Last Taken 03/13/22] acyclovir 400 mg tablet 400 mg PO BID for radiation 03/14/22 [History Last Taken 03/14/22] hydrochlorothiazide 12.5 mg tablet 12.5 mg PO DAILY bp 03/14/22 [History Last Taken 03/14/22] losartan 100 mg tablet 50 mg PO DAILY bp 03/14/22 [History Last Taken 03/14/22] sulfamethoxazole 800 mg-trimethoprim 160 mg tablet 1 tab PO DAILY infection 03/14/22 [History Last Taken 03/14/22] temozolomide 140 mg capsule 250 mg PO DAILY chemo 03/14/22 [History Last Taken 03/13/22] diazepam 5 mg tablet 5 mg PO PRN anxiety 08/29/22 [History Last Taken Unknown] levetiracetam 500 mg tablet 500 mg PO BID 08/29/22 [History Last Taken Unknown] potassium chloride 20 mEq tablet,extended release(part/cryst) 20 meq PO DAILY 08/29/22 [History Last Taken Unknown] Allergy/AdvReac Type Severity Reaction Status Date / Time vancomycin Allergy Rash Verified 06/23/22 12:29 Surgical History H/O total hip arthroplasty H/O total shoulder replacement Previous back surgery Total knee replacement status Social History household members: none Smoking Status: Never smoker substance use type: does not use ROS ROS ED Review of Systems ROS Unobtainable: due to mental status EXAM Physical Exam Const Vital Signs: 08/28/22 23:35 08/28/22 23:50 08/28/22 23:51 Temperature 97.2 F L Temperature Source Temporal Pulse Rate 104 H 103 H Respiratory Rate 22 H 23 H Blood Pressure 59/47 L 72/35 L Blood Pressure Mean 51 47 Blood Pressure Source Blood Pressure Position Blood Pressure Location Pulse Ox 92 97 Oxygen Delivery Method Room Air Room Air Room Air 08/29/22 00:20 08/29/22 01:00 08/29/22 01:06 Temperature 97.2 F L Temperature Source Temporal Pulse Rate 90 83 83 Respiratory Rate 22 H 16 17 Blood Pressure 70/48 L 108/91 H 108/91 H Blood Pressure Mean 55 96 96 Blood Pressure Source Blood Pressure Position Blood Pressure Location Pulse Ox 99 98 99 Oxygen Delivery Method Room Air Room Air Room Air 08/29/22 01:41 08/29/22 02:04 08/29/22 02:09 Temperature 98.6 F 98.6 F Temperature Source Temporal Temporal Pulse Rate 80 79 84 Respiratory Rate 18 20 H 15 Blood Pressure 86/41 L 74/40 L 74/40 L Blood Pressure Mean 56 51 51 Blood Pressure Source Monitor Monitor Blood Pressure Position Supine Supine Blood Pressure Location Left Arm Left Arm Pulse Ox 98 96 97 Oxygen Delivery Method Room Air Room Air Room Air 08/29/22 02:24 08/29/22 02:35 08/29/22 03:18 Temperature 97.1 F L Temperature Source Temporal Pulse Rate 81 78 77 Respiratory Rate 14 16 12 Blood Pressure 87/33 L 98/67 103/53 L Blood Pressure Mean 51 77 69 Blood Pressure Source Monitor Blood Pressure Position Semi-Fowlers Blood Pressure Location Right Arm Pulse Ox 98 96 97 Oxygen Delivery Method Room Air Room Air Room Air Positive unkempt Constitutional Narrative: Confused General Appearance ED: unkempt and pallor HEENT Reports dry mucous membranes Mouth ED: Yes dry mucous membranes Mouth: dry mucous membranes Eyes PERRL General Eye ED: Yes pale conjunctiva; Negative for scleral icterus Resp normal respiratory effort Auscultation: Negative for rales, rhonchi or wheezes Cardio regular rhythm Rate: tachycardic GI normal to inspection, nondistended, normoactive bowel sounds GI Narrative: Mucus and blood on rectal exam. Back/Spine no CVA tenderness Neuro CN's II-XII intact bilaterally Sensorium / Orientation: lethargic Motor Exam: general weakness Psych Appearance: unkempt Skin General Skin Exam: pallor MDM MDM MDM Narrative Medical decision making narrative: Patient presenting with altered mental status and she is hypotensive. He is reported that she slept most of the day today. There is no history of fever however the patient is immunosuppressed because she is on chemotherapy. History of glioblastoma status post radiation therapy. She does have a history of ischemic colitis and GI bleed. On rectal exam she does have bloody mucus. This is occult positive. There is no history of falls or trauma. Patient is very pale. I suspect she is anemic. Her conjunctiva are white. Patient given 30 cc/kg of IV fluids. She was typed and screened and crossmatched for 2 units of blood. Sepsis work-up was undertaken. Chest x-ray my interpretation shows no acute abnormality. Radiologist interprets this and agrees. Urinalysis consistent with UTI and she is given a dose of Zosyn because she has a history of this colitis and she is having some GI bleeding. I will obtain a CT scan without contrast in addition to this. CBC shows a white blood cell count of 9.0. Hemoglobin 10.6. Platelets 122. Creatinine elevated today at 3.14 and this was 1.03 a couple of months ago. GFR today is 15. Lactic acid elevated slightly at 2.1. EKG was obtained and shows a normal sinus rhythm with a ventricular rate of 91 bpm without sign of ischemic change or ectopy. High-sensitivity troponin returned at 109. I suspect this is likely due to her hypotension and anemia because she is not having any chest pain and her EKG is normal. I will withhold aspirin or blood thinners at this point because she is having active bleeding. We will obtain a CT of the brain given her altered mental status. Patient was pancultured. Coagulation studies normal. Patient's blood pressure has improved to 98/67 with IV fluids and now blood started. She has not had any more bowel movements with any bloody stool. She is feeling improved and she is more alert and awake. CT of the abdomen pelvis shows diffuse colitis from the transverse and descending colon. I suspect this is probably the source of the bleeding. Discussed with Dr. England prior to admission. Patient not on any anticoagulation at this point. Hemodynamically stabilized. CT brain was negative. Impression: 1. GI bleed 2. Acute blood loss anemia 3. Elevated troponin 4. Altered mental status 5. Hypotension 6. UTI 7. Sepsis Lab Data Attestation: I reviewed the patient's lab results. Labs: Laboratory Results - last 24 hr 08/28/22 08/29/22 08/29/22 23:45 00:05 00:35 WBC 9.0 RBC 3.15 L Hgb 10.6 L Hct 30.3 L MCV 96.2 MCH 33.7 H MCHC 35.0 RDW Std Deviation 49.2 H RDW Coeff of [place] 14.3 Plt Count 122 L MPV 10.5 Immature Gran % (Auto) 0.700 Neut % (Auto) 84.7 H Lymph % (Auto) 2.3 L [place] % (Auto) 11.5 H Eos % (Auto) 0.0 Baso % (Auto) 0.8 Absolute Neuts (auto) 7.6 Absolute Lymphs (auto) 0.21 L Nucleated RBC % 0 Differential Comment SCANNED PT 14.7 INR 1.1 APTT 27.5 Sodium 138 Potassium 4.7 Chloride 105 Carbon Dioxide 22.0 Anion Gap 11 BUN 64 H Creatinine 3.14 H Estim Creat Clear Calc 12.24 Est GFR (MDRD) Af Amer 19 L Est GFR (MDRD) Non-Af 15 L BUN/Creatinine Ratio 20.4 H Glucose 170 H Lactic Acid 2.1 H* Calcium 8.9 Total Bilirubin 0.90 AST 48 H ALT 29 Alkaline Phosphatase 60 Troponin I High Sens 109 H Total Protein 6.8 Albumin 3.2 Globulin 3.6 Albumin/Globulin Ratio 0.9 Urine Color Susanna Urine Clarity Clear Urine pH 5.0 Ur Specific [place] 1.020 Urine Protein 30 H Urine Glucose (UA) Normal Urine Ketones 5 H Urine Occult Blood 10 H Urine Nitrite Positive H Urine Bilirubin 3 H Urine Urobilinogen 8 H Ur Leukocyte Esterase 100 H Urine RBC 0-5 SEEN Urine WBC 0-5 SEEN Ur Squamous Epith Cells 0-5 SEEN Urine Bacteria 3+ Hyaline Casts 0-5 SEEN Urine Mucus 1+ Blood Type A POSITIVE Antibody Screen NEGATIVE Crossmatch See Detail Radiography Diagnostic Testing: Clinical Impression(s) from Imaging Studies Chest X-Ray 08/29/22 00:00 IMPRESSION: No significant interval change or acute process. Electronically Signed: Rubin Oneil MD at 1:15 EDT , Brain CT 08/29/22 00:04 IMPRESSION: Interval development of findings of acute left maxillary sinusitis. No other significant interval change. Previous left craniotomy with left temporal encephalomalacia. No hemorrhage or other acute intracranial abnormality. Electronically Signed: Rubin Oneil MD at 1:54 EDT , Abdomen/Pelvis CT 08/29/22 00:48 IMPRESSION: Findings of a moderate colitis involving the transverse, descending and rectosigmoid colon. Electronically Signed: Rubin Oneil MD at 2:18 EDT , Discharge Plan Triage Chief Complaint: Alt LOC ED Provider: Alton Franklin Dx/Rx/DC Orders Prescriptions: No Action acetaminophen 500 MG tablet 1,000 mg PO Q6H PRN PRN (Reason: Mild Pain (1-3/10)) 0RF ondansetron [Zofran ODT] 8 MG tablet,disintegrating 8 mg PO Q8H PRN PRN (Reason: Nausea) Qty: 30 0RF acyclovir 400 mg tablet 400 mg PO BID Patient Comments: TAKE 1 TABLET BY MOUTH TWICE DAILY BEGINNING THE FIRST DAY OF RADIATION TREATMENT sulfamethoxazole-trimethoprim 800-160 mg tablet 1 tab PO DAILY Patient Comments: TAKE ONE TABLET BY MOUTH EVERY THURSDAY, THURSDAY AND THURSDAY DURING RADIATON. losartan 100 mg tablet 50 mg PO DAILY Patient Comments: TAKE 1 TABLET BY MOUTH ONCE DAILY hydrochlorothiazide 12.5 mg tablet 12.5 mg PO DAILY Patient Comments: TAKE 1 TABLET BY MOUTH ONCE DAILY temozolomide 140 mg capsule 250 mg PO DAILY Patient Comments: TAKE 1 CAPSULE BY MOUTH ONCE DAILY ON EMPTY STOMACH BEGINNING THE FIRST DAY OF RADIATION potassium chloride 20 mEq tablet,ER particles/crystals 20 meq PO DAILY levetiracetam 500 mg tablet 500 mg PO BID diazepam 5 mg tablet 5 mg PO PRN (Reason: anxiety) Patient Comments: TAKE 1 TABLET BY MOUTH EVERY DAY AT BEDTIME FOR UP TO 30 DAYS Primary Care Provider: Ellie Daigle Referrals: Ellie Daigle MD [Primary Care Provider] -
--- NOTE | 2022-08-29 02:07 | HP.PCM.HOS_ITS ---
HPI - General General Date of Admission: 08/29/22 Date of Service: 08/29/22 Chief Complaint: Altered mental status HPI Narrative WALTER MANCIA, is a 76 F with a significant history of glioblastoma s/p surgery and chemotherapy who presents to the emergency department with altered mental status. A day before presentation patient was able to walk and carry out a normal conversation. However on presentation patient became very lethargic and slept all day. She did not eat. She drank only about 4 to 5 sips of water. She had multiple accidents of bowel movements of about 4. Her bowels looked mushy and dark. Family reports that chronically patient has polyuria. No change in urine habits was communicated to family. History was taken from patient's daughter who was at bedside since patient is confused. [facility] Medical History Brain cancer Chemotherapy induced nausea and vomiting Home Medications acetaminophen 500 mg tablet 1,000 mg (2 x 500 mg) PO Q6H PRN PRN Mild Pain (1- 3) 01/22/18 [Rx Last Taken Unknown] ondansetron 8 mg disintegrating tablet (Zofran ODT) 8 mg PO Q8H PRN PRN Nausea #30 tabs 01/22/18 [Rx Last Taken 03/13/22] acyclovir 400 mg tablet 400 mg PO BID for radiation 03/14/22 [History Last Taken 03/14/22] hydrochlorothiazide 12.5 mg tablet 12.5 mg PO DAILY bp 03/14/22 [History Last Taken 03/14/22] losartan 100 mg tablet 50 mg PO DAILY bp 03/14/22 [History Last Taken 03/14/22] sulfamethoxazole 800 mg-trimethoprim 160 mg tablet 1 tab PO DAILY infection 03/14/22 [History Last Taken 03/14/22] temozolomide 140 mg capsule 250 mg PO DAILY chemo 03/14/22 [History Last Taken 03/13/22] diazepam 5 mg tablet 5 mg PO PRN anxiety 08/29/22 [History Last Taken Unknown] levetiracetam 500 mg tablet 500 mg PO BID 08/29/22 [History Last Taken Unknown] potassium chloride 20 mEq tablet,extended release(part/cryst) 20 meq PO DAILY 08/29/22 [History Last Taken Unknown] Allergy/AdvReac Type Severity Reaction Status Date / Time vancomycin Allergy Rash Verified 06/23/22 12:29 Family History (Updated 08/29/22 @ 04:[address] Tony Dey MD) Other COPD (chronic obstructive pulmonary disease) Heart disease Surgical History H/O total hip arthroplasty H/O total shoulder replacement Previous back surgery Total knee replacement status Social History household members: none Smoking Status: Never smoker substance use type: does not use ROS Review of Systems ROS Unobtainable: due to mental status Vital Signs Vital Signs Vital Signs: 08/28/22 23:35 08/28/22 23:50 08/28/22 23:51 Temperature 97.2 F L Temperature Source Temporal Pulse Rate 104 H 103 H Respiratory Rate 22 H 23 H Blood Pressure 59/47 L 72/35 L Blood Pressure Mean 51 47 Blood Pressure Source Blood Pressure Position Blood Pressure Location Pulse Ox 92 97 Oxygen Delivery Method Room Air Room Air Room Air 08/29/22 00:20 08/29/22 01:00 08/29/22 01:06 Temperature 97.2 F L Temperature Source Temporal Pulse Rate 90 83 83 Respiratory Rate 22 H 16 17 Blood Pressure 70/48 L 108/91 H 108/91 H Blood Pressure Mean 55 96 96 Blood Pressure Source Blood Pressure Position Blood Pressure Location Pulse Ox 99 98 99 Oxygen Delivery Method Room Air Room Air Room Air 08/29/22 01:41 08/29/22 02:04 Temperature 98.6 F Temperature Source Temporal Pulse Rate 80 79 Respiratory Rate 18 20 H Blood Pressure 86/41 L 74/40 L Blood Pressure Mean 56 51 Blood Pressure Source Monitor Blood Pressure Position Supine Blood Pressure Location Left Arm Pulse Ox 98 96 Oxygen Delivery Method Room Air Room Air Weight Weight: 63.5 kg Body Mass Index (BMI) 25.2 Physical Exam Narrative Physical exam: General: Well-nourished, well-developed. Head: Normocephalic, atraumatic, no tenderness Eyes: Vision is grossly intact. EOMI ENT, no trauma, moist mucous membranes, no rhinorrhea Neck: Nontender, No thyromegaly. CVS: Regular rate and rhythm. S1-S2 present. No murmur, gallop or rub. Respiratory : clear to auscultation bilaterally, chest wall nontender Abdomen: Soft, nontender, nondistended, normal bowel sounds, no masses : Deferred Back: Nontender, no CVA tenderness, no midline spinal tenderness, deformities, step-offs Extremities: Nontender full range of motion, no trauma Skin: Pallor;trauma, abrasions Neuro: Lethargic, confused. Psychiatry: Normal mood. Normal affect. Not depressed. Not anxious. Results Lab / Micro Data 08/28/22 23:45 08/28/22 23:45 Labs: Laboratory Results - last 24 hr 08/28/22 23:45: WBC 9.0, RBC 3.15 L, Hgb 10.6 L, Hct 30.3 L, MCV 96.2, MCH 33.7 H, MCHC 35.0, RDW Std Deviation 49.2 H, RDW Coeff of Eboni 14.3, Plt Count 122 L, MPV 10.5, Immature Gran % (Auto) 0.700, Neut % (Auto) 84.7 H, Lymph % (Auto) 2.3 L, [place] % (Auto) 11.5 H, Eos % (Auto) 0.0, Baso % (Auto) 0.8, Absolute Neuts (auto) 7.6, Absolute Lymphs (auto) 0.21 L, Nucleated RBC % 0, Differential Comment SCANNED, PT 14.7, INR 1.1, APTT 27.5, Sodium 138, Potassium 4.7, Chloride 105, Carbon Dioxide 22.0, Anion Gap 11, BUN 64 H, Creatinine 3.14 H, Estim Creat Clear Calc 12.24, Est GFR (MDRD) Af Amer 19 L, Est GFR (MDRD) Non-Af 15 L, BUN/Creatinine Ratio 20.4 H, Glucose 170 H, Lactic Acid 2.1 H*, Calcium 8.9, Total Bilirubin 0.90, AST 48 H, ALT 29, Alkaline Phosphatase 60, Troponin I High Sens 109 H, Total Protein 6.8, Albumin 3.2, Globulin 3.6, Albumin/Globulin Ratio 0.9 08/29/22 00:05: Urine Color Susanna, Urine Clarity Clear, Urine pH 5.0, Ur Specific [place] 1.020, Urine Protein 30 H, Urine Glucose (UA) Normal, Urine Ketones 5 H, Urine Occult Blood 10 H, Urine Nitrite Positive H, Urine Bilirubin 3 H, Urine Urobilinogen 8 H, Ur Leukocyte Esterase 100 H, Urine RBC 0-5 SEEN, Urine WBC 0-5 SEEN, Ur Squamous Epith Cells 0-5 SEEN, Urine Bacteria 3+, Hyaline Casts 0-5 SEEN, Urine Mucus 1+ 08/29/22 00:35: Blood Type A POSITIVE, Antibody Screen NEGATIVE, Crossmatch See Detail Micro: Microbiology 08/29/22 00:05 Stool Stool Occult Blood (VENITA) - Final Occult Blood Positive Radiology Impression Chest X-Ray 08/29/22 00:00 IMPRESSION: No significant interval change or acute process. Electronically Signed: Rubin Oneil MD at 1:15 EDT , Brain CT 08/29/22 00:04 IMPRESSION: Interval development of findings of acute left maxillary sinusitis. No other significant interval change. Previous left craniotomy with left temporal encephalomalacia. No hemorrhage or other acute intracranial abnormality. Electronically Signed: Rubin Oneil MD at 1:54 EDT , Assessment & Plan Assessment/Plan (1) Acute encephalopathy: (2) Hemorrhagic shock: (3) Sepsis: QUALIFIERS: Sepsis acute organ dysfunction status: with acute organ dysfunction Sepsis type: sepsis due to unspecified organism Severe sepsis acute organ dysfunction type: acute renal failure Acute renal failure type: unspecified Severe sepsis shock status: without septic shock Qualified Code(s): A41.9 - Sepsis, unspecified organism; R65.20 - Severe sepsis without septic shock; N17.9 - Acute kidney failure, unspecified PLAN: Plan Hemorrhagic shock Hemoglobin on presentation was 10.6. Patient hemoglobin earlier in the year was 7.2 and 9.0. Likely due to hemoconcentration Received fluid resuscitation and packed blood cells in the emergency department. Hold home blood pressure reducing medications. Trend H&H. Acute GI bleed Protonix IV ordered. Trend H&H. Fluid resuscitation as above Sepsis Etiology likely UTI, colitis The patient presented with sepsis due to (possible UTI) with acute sepsis related organ dysfunction as evidenced by (lactic acidosis of lactic acid 2.1 and hypotension with systolic blood pressure less than 90; and acute kidney injury with creatinine more than 2). SIRS criteria: Respiratory rate more than 20 Heart rate more than 90 Trend lactic acid. Urine culture and blood cultures ordered emergency department, follow. JAMIE Creatinine of 3.14 on presentation. Baseline creatinine 1.02. Resuscitation as above. Avoid nephrotoxic's. Trend BMP Glioblastoma Improving. DVT prophylaxis: SCDs ordered. Sepsis Attestation Date exam was performed: 08/29/22 Time exam was performed: 05:21 Sepsis Organ Dysfunction Criteria Present: SBP < 90 mmHg or MAP < 65 mmHg, Total Bilirubin > 2 mg/dl and Lactic Acid > 2 mmol/L Fluid Resuscitation Fluid resuscitation indicated?: Yes Fluid Resuscitation ordered: 30 ml/kg fluid bolus ordered Amount of fluid ordered: 2,000 Charges/Coding Visit Charges Inpatient E&M: 45432 Init Hosp L3
--- NOTE | 2022-08-29 03:13 | ED.RN ---
Pt IV bleeding around site when RN went to check on pt. IV flushed for patency and noticed infiltration. Blood d/c from R AC IV and switched to R FA IV. notified.
[2022-08-29 03:56] LABS: Reflex Lactate? Y
--- NOTE | 2022-08-29 03:59 | ED.RN ---
Per Dr. Ventura patient must remain in the unit until 530 to watch blood pressure. Patient must remain the unit till then. coal yard supervisor made aware at this time
[2022-08-29] MEDS: 0.9% Normal Saline 1,000 ML 150 ML IV (04:15)
[2022-08-29 04:57] LABS: Lactic Acid 1.6 mmol/L (0.4-1.9)
[2022-08-29] MEDS: Lactated Ringers 1,000 ML 75 ML IV (09:39)
[2022-08-29] MEDS: levETIRAcetam 500 MG Tablet PO ×2 (09:39→22:00)
[2022-08-29] MEDS: Ceftriaxone 1 GM/50 ML BAG IV (09:39)
[2022-08-29] MEDS: Acyclovir 200 MG Capsule 400 MG PO ×2 (09:40→22:00)
[2022-08-29 09:44] LABS: ALB/GLOB Ratio 0.9 RATIO (0.9-2.4); AST(SGOT) 86 U/L (15-37); Alanine Aminotransfer ALT/SGPT 31 U/L (13-56); Albumin, Serum 2.9 g/dL (3.2-5.0); Alkaline Phosphatase 53 U/L (45-117); Anion Gap 10 (5-15); BUN 60 mg/dL (7-18); BUN/Creat Ratio 27.1 RATIO (10-20); Calcium,Total 8.3 mg/dL (8.5-10.1); Chloride 114 mmol/L (98-107); Creatinine, Serum 2.21 mg/dL (0.55-1.02); EST Glomerular Filtration Rate 23 mL/min (>60); Est Glom Filt Rate - Afr Amer 28 mL/min (>60); Globulin 3.4 g/dL (2.2-4.2); Glucose 115 mg/dL (74-106); Potassium 3.9 mmol/L (3.5-5.1); Protein, Total 6.3 g/dL (6.4-8.2); Sodium Level 142 mmol/L (136-145)
[2022-08-29 11:36] LABS: Absolute Lymphocyte Count 0.18 X10^3/uL (0.83-4.51); Basophil# 0.07 X10^3/uL; Basophil% 0.9 % (0-1); Hematocrit 33.9 % (37-47); Hemoglobin 11.4 g/dL (12.0-15.0); Lymphocyte # 0.18 X10^3/ul (0.83-4.51); Lymphocyte % 2.4 % (19-41); Mean Corp Hgb Conc 33.6 g/dL (32-36); Mean Corpuscular Hgb 31.2 pg (27.0-32.0); Mean Corpuscular Volume 92.9 fL (81-99); Mean Platelet Vol. 9.7 fl (6.2-12.0); Monocyte# 1.28 X10^3/uL; Monocyte% 16.9 % (0-10); NRBC Flagged by Analyzer 0 % (0-5); Neutrophil # 5.97 X10^3/uL (2.7-7.7); Neutrophil % 78.9 % (47-70); POSITIVE COUNT YES; POSITIVE DIFFERENTIAL YES; POSITIVE MORPHOLOGY YES; Platelet Count 77 K/mm3 (150-450); RBC Distribution Width SD 61.1 fl (35.1-43.9); Red Blood Count 3.65 M/mm3 (4.2-5.4); White Blood Count 7.6 K/mm3 (4.4-11.0)
[2022-08-29 12:40] LABS: Differential Indicated SCAN CRITERIA MET
[2022-08-29 12:42] LABS: Platelet Estimate SLT DEC (ADEQ); Red Cell Morphology NORM C+C NORMAL (NORM C&C)
--- NOTE | 2022-08-29 15:24 | CASEMGMT ---
RN ARVIND Assessment: Face to Face with pt for initial transition planning/care coordination assessment. RN ARVIND introduced self and role at [facility], pt voices understanding and consents to assessment. Pt lying in bed and asked for her dtr to be asked questions. Dtr Jeimy present at bedside. Care providers, pharmacy, and demographics verified/updated. Admitting Dx: hemorrhagic shock PCP:[facility] Specialists:Masci, onc; Neuro to be seen at the end of month for the first time [facility]erred [facility]acy: [facility] Insurance: [employer] [facility] Prescription Benefit: yes LNOK: Jeimy Palencia, dtr; Jyothi aPrrish, sig other Living Arrangements: Pt lives with sig other in a single story home with a ramp to enter. Prior to this hospitalization, dtr states pt was I in ADL's, did laundry and cooked meals. Transportation: Pt does not drive d/t having seizures. Pt dtr transports her to medical appts. DME/HHC/SNF: Pt has a cane, walker, BSC, shower chair and walk in shower. Pt has had HHC in the past but dtr is unsure of the name of the agency. Pt has been to [facility] and [facility]. Pt dtr states that a friend took pt to a campground and she was using a cane only when out and about, otherwise no AD. Dtr states pt changed yesterday. No therapy ordered, received order from hospitalist. Pt dtr states they would like to see how pt progresses prior to a plan being made. She is aware that RN CM will follow along and therapy will also work with pt. Pt/dtr states no further concerns/needs. Advised pt to ask CM if any further question/concerns/needs arise, voices understanding. Pt/Dtr Goal: Home with HHC Plan: TBD pending therapy evals and course of hospitalization
--- NOTE | 2022-08-29 17:27 | PCM.HOSP.N ---
Hospitalist Note Mrs. Ugarte is a 76-year-old white female who is currently undergoing treatment for glioblastoma multiforme a which was diagnosed back in November 2021. A craniotomy was performed in 2021 and she has been following with Dr. Mansfield for chemotherapy. She is currently on Temozolomide. And last saw Dr. Mansfield on 08/20/2022 with her last chemotherapy dosing being on 08/25/2022. She had already completed radiation therapy. She presented to the emergency department with her daughter for worsening confusion. Her daughter reported she slept all day. There was evidently some concern that her stool was dark when they presented and that she had not been eating or drinking well. Vital signs at presentation showed a temperature of 97.2, heart rate 104, respiratory was 22, initial blood pressure was 59/47 but responded excellently to IV fluids with subsequent blood pressure at 108/91, respiratory rate was 22 and oxygen saturations were anywhere from 92 to 99% on room air. CBC on presentation showed a normal white count with an anemia having a hemoglobin of 10.6 improving from her previous hemoglobin of 7.2 on 06/23/2022, thrombocytopenia with a platelet count of 122,000. Coags were normal. Her chemistries revealed normal electrolytes with a markedly elevated BUN and serum creatinine from her baseline at 64 and 3.14 (baseline is 36 and 1.03), glucose of 170, initial lactate was 2.1. LFTs were normal. Her initial troponin was slightly elevated at 109 and repeat is pending. Her initial blood pressure she was admitted to the ICU. She did respond very well to aggressive IV fluid administration. In the emergency department imaging of her abdomen was performed which showed moderate colitis involving the transverse and descending and rectosigmoid colon. She was given IV fluids emergency department and I have continued IV fluids on the floor with LR. She looks markedly dehydrated on presentation however the etiology for this is unclear at this time. I will obtain an EEG with her acute mental status change and history of glioblastoma multiforme. She is more awake today per documentation and I am hoping that this is just related to her acute kidney injury and will continue to improve with treatment of suspected UTI. She is currently on ceftriaxone for treatment this and we will continue. I will check CMV IgM as there are incidences of CMV induced diarrhea, rectal bleeding, and colonic ulcers. GI is consulted and consult is pending. Patient did meet sepsis criteria on admission with hypotension, JAMIE, elevated lactate, and worsening thrombocytopenia less than 100,000. I suspect some of this might be related to her acute dehydration and we may be able to rule out sepsis after cultures result however her UA did look infected. Currently blood and urine cultures are pending. Patient was admitted early this morning.
[2022-08-29 19:42] LABS: Troponin-I HS 128 pg/mL (3.0-54.0)
--- NOTE | 2022-08-29 20:00 | EX.PCM.CON.G ---
HPI Consult Data Date of Consult: 09/01/22 HPI Narrative Reason for Consultation: Colitis HPI Narrative: WALTER MANCIA, is a 76-year-old female with a past medical history of left-sided glioblastoma status post resection, undergoing radiation and chemotherapy. She presented with her daughter for confusion. Apparently she slept all day today. She has a history of glioblastoma multiforme status post radiation therapy and is on chemotherapy and sees Dr. Mansfield. No reported fever today. Her daughter stated that she has been minimally responsive to her. No history of trauma or falls. Apparently her significant other states she slept all day and he called her stating that she was not acting correctly. There is some concern that her stools are dark. She is pale. She has not been eating well. She is a little bit more awake during this visit than when I saw her on her previous visit. When I saw her last visit she had complaints of left lower quadrant abdominal discomfort that started on the morning of admission. She had 2 bowel movements at home without blood. She had a bowel movement in the ED that has streaks of blood in it. Her vitals in the ED were stable. CT of the abdomen and pelvis showed colitis in the sigmoid area. At this time she is not having any dark stools or signs of bleeding. [facility] Medical History Anemia Brain cancer Chemotherapy induced nausea and vomiting Home Medications acetaminophen 500 mg tablet 1,000 mg (2 x 500 mg) PO Q6H PRN PRN Mild Pain (1-3/10) 01/22/18 [Rx Last Taken Unknown] ondansetron 8 mg disintegrating tablet (Zofran ODT) 8 mg PO Q8H PRN PRN Nausea #30 tabs 01/22/18 [Rx Last Taken 03/13/22] acyclovir 400 mg tablet 400 mg PO BID for radiation 03/14/22 [History Last Taken 03/14/22] hydrochlorothiazide 12.5 mg tablet 12.5 mg PO DAILY bp 03/14/22 [History Last Taken 03/14/22] losartan 100 mg tablet 50 mg PO DAILY bp 03/14/22 [History Last Taken 03/14/22] sulfamethoxazole 800 mg-trimethoprim 160 mg tablet 1 tab PO DAILY infection 03/14/22 [History Last Taken 03/14/22] temozolomide 140 mg capsule 250 mg PO DAILY chemo 03/14/22 [History Last Taken 03/13/22] diazepam 5 mg tablet 5 mg PO PRN anxiety 08/29/22 [History Last Taken Unknown] levetiracetam 500 mg tablet 500 mg PO BID 08/29/22 [History Last Taken Unknown] potassium chloride 20 mEq tablet,extended release(part/cryst) 20 meq PO DAILY 08/29/22 [History Last Taken Unknown] Allergy/AdvReac Type Severity Reaction Status Date / Time vancomycin Allergy Rash Verified 06/23/22 12:29 Family History (Updated 08/29/22 @ 04:[address] Tony Dey MD) Other COPD (chronic obstructive pulmonary disease) Heart disease Surgical History H/O total hip arthroplasty H/O total shoulder replacement Previous back surgery Total knee replacement status Social History household members: none Smoking Status: Never smoker substance use type: does not use ROS Review of Systems ROS Unobtainable: due to mental status Physical Exam Narrative Physical exam: General: Well-nourished, well-developed. Head: Normocephalic, atraumatic, no tenderness Eyes: Vision is grossly intact. EOMI ENT, no trauma, moist mucous membranes, no rhinorrhea Neck: Nontender, No thyromegaly. CVS: Regular rate and rhythm. S1-S2 present. No murmur, gallop or rub. Respiratory : clear to auscultation bilaterally, chest wall nontender Abdomen: Soft, nontender, nondistended, normal bowel sounds, no masses : Deferred Back: Nontender, no CVA tenderness, no midline spinal tenderness, deformities, step-offs Extremities: Nontender full range of motion, no trauma Skin: Pallor;trauma, abrasions Neuro: Lethargic, confused. Psychiatry: Normal mood. Normal affect. Not depressed. Not anxious. Lab / Micro Data 09/01/22 03:55 09/01/22 03:55 Labs: Laboratory Results - last 24 hr 08/28/22 23:45: WBC 9.0, RBC 3.15 L, Hgb 10.6 L, Hct 30.3 L, MCV 96.2, MCH 33.7 H, MCHC 35.0, RDW Std Deviation 49.2 H, RDW Coeff of Eboni 14.3, Plt Count 122 L, MPV 10.5, Immature Gran % (Auto) 0.700, Neut % (Auto) 84.7 H, Lymph % (Auto) 2.3 L, Starr % (Auto) 11.5 H, Eos % (Auto) 0.0, Baso % (Auto) 0.8, Absolute Neuts (auto) 7.6, Absolute Lymphs (auto) 0.21 L, Nucleated RBC % 0, Differential Comment SCANNED, PT 14.7, INR 1.1, APTT 27.5, Sodium 138, Potassium 4.7, Chloride 105, Carbon Dioxide 22.0, Anion Gap 11, BUN 64 H, Creatinine 3.14 H, Estim Creat Clear Calc 12.24, Est GFR (MDRD) Af Amer 19 L, Est GFR (MDRD) Non-Af 15 L, BUN/Creatinine Ratio 20.4 H, Glucose 170 H, Lactic Acid 2.1 H*, Calcium 8.9, Total Bilirubin 0.90, AST 48 H, ALT 29, Alkaline Phosphatase 60, Troponin I High Sens 109 H, Total Protein 6.8, Albumin 3.2, Globulin 3.6, Albumin/Globulin Ratio 0.9 08/29/22 00:05: Urine Color Susanna, Urine Clarity Clear, Urine pH 5.0, Ur Specific [place] 1.020, Urine Protein 30 H, Urine Glucose (UA) Normal, Urine Ketones 5 H, Urine Occult Blood 10 H, Urine Nitrite Positive H, Urine Bilirubin 3 H, Urine Urobilinogen 8 H, Ur Leukocyte Esterase 100 H, Urine RBC 0-5 SEEN, Urine WBC 0-5 SEEN, Ur Squamous Epith Cells 0-5 SEEN, Urine Bacteria 3+, Hyaline Casts 0-5 SEEN, Urine Mucus 1+ 08/29/22 00:35: Blood Type A POSITIVE, Antibody Screen NEGATIVE, Crossmatch See Detail 08/29/22 04:26: Lactic Acid 1.6 08/29/22 09:01: Sodium 142, Potassium 3.9, Chloride 114 H, Carbon Dioxide 18.0 L, Anion Gap 10, BUN 60 H, Creatinine 2.21 H, Estim Creat Clear Calc 17.40, Est GFR (MDRD) Af Amer 28 L, Est GFR (MDRD) Non-Af 23 L, BUN/Creatinine Ratio 27.1 H, Glucose 115 H, Calcium 8.3 L, Total Bilirubin 1.50 H, AST 86 H, ALT 31, Alkaline Phosphatase 53, Total Protein 6.3 L, Albumin 2.9 L, Globulin 3.4, Albumin/Globulin Ratio 0.9 08/29/22 11:25: WBC 7.6, RBC 3.65 L, Hgb 11.4 L, Hct 33.9 L, MCV 92.9, MCH 31.2, MCHC 33.6, RDW Std Deviation 61.1 H, RDW Coeff of Eboni 18.0 H, Plt Count 77 L, MPV 9.7, Immature Gran % (Auto) 0.900, Neut % (Auto) 78.9 H, Lymph % (Auto) 2.4 L, Starr % (Auto) 16.9 H, Eos % (Auto) 0.0, Baso % (Auto) 0.9, Absolute Neuts (auto) 6.0, Absolute Lymphs (auto) 0.18 L, Nucleated RBC % 0, Platelet Estimate SLT DEC, RBC Morphology NORM C+C 08/29/22 18:30: Troponin I High Sens 128 H* Micro: Microbiology 08/29/22 14:30 Stool C. difficile DNA Amplification - Final 08/29/22 00:05 Stool Stool Occult Blood (VENITA) - Final Occult Blood Positive Radiology Impression Chest X-Ray 08/29/22 00:00 IMPRESSION: No significant interval change or acute process. Electronically Signed: Rubin Oneil MD at 1:15 EDT , Brain CT 08/29/22 00:04 IMPRESSION: Interval development of findings of acute left maxillary sinusitis. No other significant interval change. Previous left craniotomy with left temporal encephalomalacia. No hemorrhage or other acute intracranial abnormality. Electronically Signed: Rubin Oneil MD at 1:54 EDT , Abdomen/Pelvis CT 08/29/22 00:48 IMPRESSION: Findings of a moderate colitis involving the transverse, descending and rectosigmoid colon. Electronically Signed: Rubin Oneil MD at 2:18 EDT , Assessment & Plan Assessment/Plan (1) Colitis: PLAN: Plan Acute sigmoid colitis-likely secondary to ischemic colitis. She is currently on chemotherapy for glial blastoma multiform. The chemotherapy that she is on can be associated with colitis. There also have been episodes of new onset ulcerative colitis associated with chemotherapy. At this time her diarrhea has slowed down. I will put her on budesonide therapy and the plan will be to likely undergo flexible sigmoidoscopy or colonoscopy on Thursday. Charges/Coding Visit Charges Inpatient E&M: 56702 Init Hosp L3
--- NOTE | 2022-08-29 21:21 | ECHOCS_ITS ---
Reason For Study: Troponin Elevation Procedure This was a 2D Doppler, Color Flow transthoracic echocardiogram. Contrast injection was performed. Exam performed portable in ICU/CCU. Left Ventricle Normal LV size. The estimated ejection fraction is 55-60 %. No evidence for diastolic dysfunction. No regional wall motion abnormalities noted. Right Ventricle Normal RV size. Normal systolic function. Atria Normal left atrium. Normal right atrium. No doppler evidence for ASD. Mitral Valve There is no mitral valve stenosis. No mitral valve insufficiency. Tricuspid Valve There is no tricuspid stenosis. Trivial tricuspid valve insufficiency. Unable to estimate RV systolic pressure due to insufficient tricuspid regurgitant envelope. Aortic Valve Trisinus/trileaflet aortic valve. There is no aortic stenosis. No aortic valve insufficiency. Pulmonic Valve There is no pulmonic valvular stenosis. No pulmonic valve insufficiency. Great Vessels Normal aortic root. Pericardium/Pleural Trivial pericardial effusion. Medication Diluted definity 1.5ml given slow IV push to enhance endocardial definition. MMode/2D Measurements & Calculations LVIDd: 4.5 cm IVSd: 0.65 cm Ao root diam: 2.4 cm LVIDs: 2.9 cm LVPWd: 0.65 cm RVDd: 3.6 cm FS: 34.7 % LAV(MOD-bp): 39.2 ml LVAd ap4: 29.9 cm2 SV(MOD-sp4): 71.5 ml LAV(MOD-bp) Indexed: 23.9 ml/m2 LVLd ap4: 7.0 cm LAV(MOD-sp2): 43.5 ml EDV(MOD-sp4): 104.6 ml LAV(MOD-sp4): 28.9 ml EDV(sp4-el): 108.8 ml LVAs ap4: 14.7 cm2 LVLs ap4: 5.5 cm ESV(MOD-sp4): 33.1 ml ESV(sp4-el): 33.5 ml EF(MOD-sp4): 68.4 % EF(sp4-el): 69.2 % SV(sp4-el): 75.3 ml LA A4 area: 13.7 cm2 LA dimension(2D): 2.8 cm RA A4 area: 11.5 cm2 TAPSE: 2.8 cm Time Measurements MV dec time: 0.33 sec Doppler Measurements & Calculations MV E max varinder: 84.2 cm/sec Lat Peak E' Varinder: 5.6 cm/sec Med Peak E' Varinder: 6.8 cm/sec MV A max varinder: 113.1 cm/sec E/E' lat: 15.0 E/E' med: 12.4 MV E/A: 0.74 MV V2 max: 148.0 cm/sec MV dec slope: 251.4 cm/sec2 Ao V2 max: 140.1 cm/sec MV max P.8 mmHg Ao max P.9 mmHg MV V2 mean: 93.4 cm/sec Ao V2 mean: 93.3 cm/sec MV mean P.9 mmHg Ao mean P.1 mmHg MV V2 VTI: 41.6 cm Ao V2 VTI: 33.3 cm LV V1 max: 104.7 cm/sec PA V2 max: 98.5 cm/sec TR max varinder: 234.6 cm/sec LV V1 max P.4 mmHg TR max P.0 mmHg ECHO/Echo Complete W/ Contrast Interpretation Summary The estimated ejection fraction is 55-60 %. No evidence for diastolic dysfunction. Trivial pericardial effusion. Ordering Physician: Vero Akhtar Referring Physician: Ellie Daigle Performed By: Joanna Street, RDCS, RVT
[2022-08-29] MEDS: Lactated Ringers 1,000 ML 100 ML IV (22:00)
[2022-08-29] MEDS: Budesonide 3 MG CAPSULE.EC 9 MG PO (22:00)
[2022-08-30] VITALS (18 sets, daily range): BP systolic 124–144; BP diastolic 46–88; PULSE 63–85; RESP 14–26; TEMP 36.3–36.6; O2SAT 95–100; BMI 25.6
[2022-08-30 04:36] LABS: Absolute Lymphocyte Count 0.18 X10^3/uL (0.83-4.51); Absolute Neutrophil Count 3.1 X10^3/uL (2.0-7.7); Basophil# 0.02 X10^3/uL; Basophil% 0.5 % (0-1); Eosinophil# 0.05 X10^3/uL; Eosinophils% 1.3 % (0-5); Hematocrit 29.6 % (37-47); Hemoglobin 9.9 g/dL (12.0-15.0); Lymphocyte # 0.18 X10^3/ul (0.83-4.51); Lymphocyte % 4.6 % (19-41); Mean Corp Hgb Conc 33.4 g/dL (32-36); Mean Corpuscular Hgb 31.2 pg (27.0-32.0); Mean Corpuscular Volume 93.4 fL (81-99); Mean Platelet Vol. 9.8 fl (6.2-12.0); Monocyte# 0.46 X10^3/uL; Monocyte% 11.6 % (0-10); NRBC Flagged by Analyzer 0 % (0-5); Neutrophil # 3.13 X10^3/uL (2.7-7.7); Neutrophil % 79.2 % (47-70); POSITIVE COUNT YES; POSITIVE DIFFERENTIAL YES; POSITIVE MORPHOLOGY YES; RBC Distribution Width CV 20.2 % (11.6-14.6); Red Blood Count 3.17 M/mm3 (4.2-5.4)
[2022-08-30 04:59] LABS: AST(SGOT) 106 U/L (15-37); Alanine Aminotransfer ALT/SGPT 31 U/L (13-56); Albumin, Serum 2.7 g/dL (3.2-5.0); Alkaline Phosphatase 47 U/L (45-117); Anion Gap 7 (5-15); BUN 42 mg/dL (7-18); BUN/Creat Ratio 44.5 RATIO (10-20); Calcium,Total 8.2 mg/dL (8.5-10.1); Chloride 115 mmol/L (98-107); Creatinine, Serum 0.94 mg/dL (0.55-1.02); EST Glomerular Filtration Rate 61 mL/min (>60); Est Glom Filt Rate - Afr Amer 74 mL/min (>60); Globulin 2.7 g/dL (2.2-4.2); Glucose 90 mg/dL (74-106); Magnesium 1.9 mg/dL (1.6-2.6); Phosphorus 2.4 mg/dL (2.5-4.9); Potassium 3.9 mmol/L (3.5-5.1); Protein, Total 5.4 g/dL (6.4-8.2); Sodium Level 144 mmol/L (136-145)
[2022-08-30 05:14] LABS: Differential Comment SCANNED; Differential Indicated SCAN CRITERIA MET; Platelet Estimate MOD DEC (ADEQ)
[2022-08-30 05:17] LABS: Anisocytosis 2+; Macrocytosis 1+; Microcytosis 1+
[2022-08-30] MEDS: Losartan Potassium 50 MG Tablet PO (11:33)
[2022-08-30] MEDS: Budesonide 3 MG CAPSULE.EC 9 MG PO (11:34)
[2022-08-30] MEDS: levETIRAcetam 500 MG Tablet PO ×2 (11:37→20:19)
[2022-08-30] MEDS: Acyclovir 200 MG Capsule 400 MG PO ×2 (11:39→20:19)
[2022-08-30] MEDS: Ceftriaxone 1 GM/50 ML BAG IV (11:40)
--- NOTE | 2022-08-30 14:01 | PN.HOSP_ITS ---
Reason for Visit Reason for Visit: Mental status change Objective Data Objective Data Vital Signs: Vital Signs Temp Pulse Resp BP Pulse Ox O2 Del Method 97.3 F L 65 16 132/58 H 99 Room Air 08/30/22 08:00 08/30/22 13:00 08/30/22 13:00 08/30/22 13:00 08/30/22 13:00 08/30/22 13:00 Oxygen Delivery Method Room Air Weight: 63.6 kg Body Mass Index (BMI) 25.6 Intake & Output: Intake and Output for Last 24 Hours 08/28/22 08/29/22 08/30/22 23:59 23:59 23:59 Intake Total 2550 / 2550 1257 / 1257 Output Total 400 / 450 375 / 375 Balance 2150 / 2100 882 / 882 Lab / Micro Data 08/30/22 04:26 08/30/22 04:26 Labs: Laboratory Results - last 24 hr 08/29/22 18:30: Troponin I High Sens 128 H* 08/30/22 04:26: WBC 4.0 L, RBC 3.17 L, Hgb 9.9 L, Hct 29.6 L, MCV 93.4, MCH 31.2, MCHC 33.4, RDW Std Deviation 66.0 H, RDW Coeff of Eboni 20.2 H, Plt Count , MPV 9.8, Immature Gran % (Auto) 2.800 H, Neut % (Auto) 79.2 H, Lymph % (Auto) 4.6 L, [place] % (Auto) 11.6 H, Eos % (Auto) 1.3, Baso % (Auto) 0.5, Absolute Neuts (auto) 3.1, Absolute Lymphs (auto) 0.18 L, Nucleated RBC % 0, Differential Comment SCANNED, Diff Path Review May foll, Platelet Estimate MOD DEC, Anisocytosis 2+, Microcytosis 1+, Macrocytosis 1+, Sodium 144, Potassium 3.9, Chloride 115 H, Carbon Dioxide 22.0, Anion Gap 7, BUN 42 H, Creatinine 0.94, Estim Creat Clear Calc 40.90, Est GFR (MDRD) Af Amer 74, Est GFR (MDRD) Non-Af 61, BUN/Creatinine Ratio 44.5 H, Glucose 90, Calcium 8.2 L, Phosphorus 2.4 L, Magnesium 1.9, Total Bilirubin 0.80, AST 106 H, ALT 31, Alkaline Phosphatase 47, Total Protein 5.4 L, Albumin 2.7 L, Globulin 2.7, Albumin/Globulin Ratio 1.0 Micro: Microbiology 08/29/22 00:05 Urine, Catheterized Urine Culture - Preliminary Gram negative bonny 08/29/22 14:30 Stool Enteric Bacteriology - Preliminary 08/29/22 14:30 Stool C. difficile DNA Amplification - Final 08/29/22 00:05 Stool Stool Occult Blood (VENITA) - Final Occult Blood Positive Radiography Diagnostic Testing: Radiology Impression Echocardiogram 08/29/22 21:21 Interpretation Summary The estimated ejection fraction is 55-60 %. No evidence for diastolic dysfunction. Trivial pericardial effusion. Ordering Physician: Vero Akhtar Referring Physician: Ellie Daigle Performed By: Joanna Street, NADYA, RVT Physical Exam Const alert, oriented x3, no apparent distress, average body habitus and well nourished Constitutional Narrative: Older, white female, lying in bed, appears comfortable, nontoxic HEENT head/scalp atraumatic and moist oral mucous membranes HEENT Narrative: Edentulous, Mallampati 2, no thrush Head and Scalp: normocephalic Resp normal respiratory effort, no retractions, no use of accessory muscles and clear to auscultation bilaterally Auscultation: Negative for rales, rhonchi or wheezes Cardio regular rate, regular rhythm, S1 normal heart sound, S2 normal heart sound, no murmurs, no rub, no gallops and no clicks GI normal to inspection, nondistended, normoactive bowel sounds and soft to palpation GI Narrative: Very minimal diffuse tenderness Extremity no clubbing, cyanosis or edema Extremity Narrative: Pedal pulses are 2+ Neuro oriented x3 and moves all extremities Neuro Narrative: Significant generalized weakness noted Speech: speech normal Psych Psych Narrative: Affect is somewhat flat, eye contact is good, patient interacts appropriately Assessment & Plan Assessment/Plan (1) Sepsis: QUALIFIERS: Acute renal failure type: unspecified Sepsis acute organ dysfunction status: with acute organ dysfunction Sepsis type: sepsis due to unspecified organism Severe sepsis acute organ dysfunction type: acute renal failure Severe sepsis shock status: without septic shock Qualified Code(s): A41.9 - Sepsis, unspecified organism; R65.20 - Severe sepsis without septic shock; N17.9 - Acute kidney failure, unspecified (2) Colitis: (3) Glioblastoma multiforme: (4) JAMIE (acute kidney injury): (5) UTI (urinary tract infection): (6) Hypophosphatemia: (7) Elevated troponin I level: (8) GI bleed: (9) Toxic metabolic encephalopathy: PLAN: Plan Colitis/diarrhea -Highly suspect related to her chemo drug-->temozolomide -CMV titers/stool sample pending -C. difficile and enteric panel are negative -Budesonide initiated by GI -We will DC IV fluids and start regular diet today -Plan is for colonoscopy versus sigmoidoscopy on 09/01/2022 Sepsis -Patient met sepsis criteria with hypotension, JAMIE, elevated lactate, and worsening thrombocytopenia less than 100,000. -Presentation was more related to dehydration than actual sepsis however she does have a urinary tract infection so sepsis is unable to be ruled out as the etiology -Continue antibiotics as ordered with ceftriaxone -Current urine culture is showing a gram-negative bonny -We will narrow and biotics and transition if possible to oral once we have i dentification and sensitivities -Blood cultures remain pending Gram-negative UTI -Continue ceftriaxone and await culture and sensitivities Toxic/metabolic encephalopathy -Suspected to related to UTI and marked dehydration from diarrhea -Resolving and daughter feels she is close to baseline today as of 08/30/2022 JAMIE -Baseline serum creatinine is between 0.8 and 1 -Serum creatinine admission was 3.14 -Today serum creatinine 0.94 and normalized -Discontinue IV fluids -Restart regular diet Elevated troponin -Suspect demand ischemia related to hypotension and dehydration -Echocardiogram is unremarkable GI bleeding -Likely related to above colitis -Hemoglobin has dropped some but remains above 7 -Repeat CBC in a.m. -Transfuse for less than 7 -Gastroenterology is following and planning for possible colonoscopy versus sigmoidoscopy on Don -Budesonide initiated Hypophosphatemia -Phos replacement -Repeat lab in a.m. Glioblastoma multiforme -Diagnosed in November 2021 -Craniotomy December 2021 -Completed brain radiation -Currently on temozolomide -Follows with Dr. Mansfield -Continue acyclovir Hypertension -Patient was hypotensive on presentation -Blood pressure is improving and trending up -Restart losartan -Continue to hold hydrochlorothiazide and reevaluate tomorrow Seizures -Related to above -Continue home Keppra DVT prophylaxis -SCDs -Chemoprophylaxis on hold due to GI bleeding CODE STATUS -Full code Charges/Coding Visit Charges Inpatient E&M: 77934 Subs Hosp L2
[2022-08-30] MEDS: Acetaminophen 500 MG Tablet 1000 MG PO (14:46)
--- NOTE | 2022-08-30 16:11 | NURSING ---
report called to med-surg transferred per bed to room 301, family present
[2022-08-31 03:36] VITALS: BP 129/53; PULSE 55; RESP 16; TEMP 36.9; O2SAT 97
[2022-08-31 06:14] VITALS: BMI 25.8
[2022-08-31 06:56] LABS: Absolute Lymphocyte Count 0.23 X10^3/uL (0.83-4.51); Absolute Neutrophil Count 3.4 X10^3/uL (2.0-7.7); Basophil# 0.02 X10^3/uL; Basophil% 0.5 % (0-1); Eosinophil# 0.03 X10^3/uL; Eosinophils% 0.7 % (0-5); Hematocrit 27.2 % (37-47); Hemoglobin 9.2 g/dL (12.0-15.0); Lymphocyte # 0.23 X10^3/ul (0.83-4.51); Lymphocyte % 5.5 % (19-41); Mean Corp Hgb Conc 33.8 g/dL (32-36); Mean Corpuscular Volume 91.6 fL (81-99); Mean Platelet Vol. 10.2 fl (6.2-12.0); Monocyte# 0.49 X10^3/uL; Monocyte% 11.6 % (0-10); NRBC Flagged by Analyzer 0 % (0-5); Neutrophil # 3.44 X10^3/uL (2.7-7.7); Neutrophil % 81.5 % (47-70); POSITIVE COUNT YES; POSITIVE DIFFERENTIAL YES; POSITIVE MORPHOLOGY YES; Platelet Count 79 K/mm3 (150-450); RBC Distribution Width CV 17.9 % (11.6-14.6); Red Blood Count 2.97 M/mm3 (4.2-5.4); White Blood Count 4.2 K/mm3 (4.4-11.0)
[2022-08-31 07:07] LABS: CMV Acute Antibody IgM < 30.0 AU/mL (0.0-29.9)
[2022-08-31 07:33] LABS: Differential Indicated SCAN CRITERIA MET
[2022-08-31 07:40] VITALS: O2SAT 95
[2022-08-31 07:52] LABS: Anion Gap 4 (5-15); BUN 29 mg/dL (7-18); BUN/Creat Ratio 42.1 RATIO (10-20); Calcium,Total 8.3 mg/dL (8.5-10.1); Chloride 114 mmol/L (98-107); Creatinine, Serum 0.69 mg/dL (0.55-1.02); EST Glomerular Filtration Rate 88 mL/min (>60); Est Glom Filt Rate - Afr Amer 107 mL/min (>60); Estimated Creatinine Clearance 38.44 ml/min; Glucose 94 mg/dL (74-106); Phosphorus 2.4 mg/dL (2.5-4.9); Potassium 3.1 mmol/L (3.5-5.1); Sodium Level 141 mmol/L (136-145)
[2022-08-31 08:17] LABS: Platelet Estimate SLT DEC (ADEQ)
[2022-08-31 08:20] VITALS: BP 115/44; PULSE 55; RESP 18; TEMP 37.1; O2SAT 97
[2022-08-31] MEDS: Ondansetron 4 MG/2 ML Vial IV ×2 (09:55→16:52)
[2022-08-31] MEDS: 0.9% Saline Lock 10 ML Syringe IV ×3 (09:55→16:52)
[2022-08-31] MEDS: Ceftriaxone 1 GM/50 ML BAG IV (09:58)
[2022-08-31] MEDS: Potassium Chloride Oral Tablet 20 MEQ 40 MEQ PO (11:04)
[2022-08-31] MEDS: Budesonide 3 MG CAPSULE.EC 9 MG PO (11:04)
[2022-08-31] MEDS: levETIRAcetam 500 MG Tablet PO ×2 (11:04→20:55)
[2022-08-31] MEDS: Acyclovir 200 MG Capsule 400 MG PO ×2 (11:04→20:55)
--- NOTE | 2022-08-31 11:58 | PCM.PN.HOSP ---
Reason for Visit Reason for Visit: Mental status changes Subjective Subjective Diarrhea is improving. Mentation is back to baseline. Patient complaining of some nausea this morning. Antiemetics were just given. Buttock pain she was having yesterday has resolved. Objective Data Objective Data Vital Signs: Vital Signs Temp Pulse Resp BP Pulse Ox O2 Del Method 98.8 F 55 L 18 115/44 L 97 Room Air 08/31/22 08:20 08/31/22 08:20 08/31/22 08:20 08/31/22 08:20 08/31/22 08:20 08/31/22 08:20 Oxygen Delivery Method Room Air Weight: 63.7 kg Body Mass Index (BMI) 25.8 Intake & Output: Intake and Output for Last 24 Hours 08/29/22 08/30/22 08/31/22 23:59 23:59 23:59 Intake Total 2550 / 2550 3507 / 3507 499.25 / 499.25 Output Total 400 / 450 575 / 575 700 / 700 Balance 2150 / 2100 2932 / 2932 -200.75 / -200.75 Lab / Micro Data 08/31/22 05:20 08/31/22 05:20 Labs: Laboratory Results - last 24 hr 08/29/22 18:30: CMV IgM Ab < 30.0 08/31/22 05:20: WBC 4.2 L, RBC 2.97 L, Hgb 9.2 L, Hct 27.2 L, MCV 91.6, MCH 31.0, MCHC 33.8, RDW Std Deviation 60.0 H, RDW Coeff of Eboni 17.9 H, Plt Count 79 L, MPV 10.2, Immature Gran % (Auto) 0.200, Neut % (Auto) 81.5 H, Lymph % (Auto) 5.5 L, [place] % (Auto) 11.6 H, Eos % (Auto) 0.7, Baso % (Auto) 0.5, Absolute Neuts (auto) 3.4, Absolute Lymphs (auto) 0.23 L, Nucleated RBC % 0, Diff Path Review June, Platelet Estimate SLT DEC, Sodium 141, Potassium 3.1 L, Chloride 114 H, Carbon Dioxide 23.0, Anion Gap 4 L, BUN 29 H, Creatinine 0.69, Estim Creat Clear Calc 38.44, Est GFR (MDRD) Af Amer 107, Est GFR (MDRD) Non-Af 88, BUN/Creatinine Ratio 42.1 H, Glucose 94, Calcium 8.3 L, Phosphorus 2.4 L Micro: Microbiology 08/29/22 00:05 Urine, Catheterized Urine Culture - Final Escherichia coli 08/28/22 23:45 Blood Culture (Wb) - Anticubital Left Blood Culture - Preliminary No growth in 48 hours. 08/28/22 23:54 Blood Culture (Wb) - Left Forearm Blood Culture - Preliminary No growth in 48 hours. 08/29/22 14:30 Stool Enteric Bacteriology - Final 08/29/22 14:30 Stool C. difficile DNA Amplification - Final 08/29/22 00:05 Stool Stool Occult Blood (VENITA) - Final Occult Blood Positive Radiography Diagnostic Testing: Radiology Impression Echocardiogram 08/29/22 21:21 Interpretation Summary The estimated ejection fraction is 55-60 %. No evidence for diastolic dysfunction. Trivial pericardial effusion. Ordering Physician: Vero Akhtar Referring Physician: Ellie Daigle Performed By: Joanna Street, NADYA, RVT Physical Exam Const alert, oriented x3, no apparent distress, average body habitus and well nourished Constitutional Narrative: Older, white female, lying in bed, appears comfortable, nontoxic, nursing at bedside HEENT head/scalp atraumatic and moist oral mucous membranes HEENT Narrative: Dentition is poor, Mallampati is 2, no thrush Resp normal respiratory effort, no retractions, no use of accessory muscles and clear to auscultation bilaterally Auscultation: Negative for rales, rhonchi or wheezes Cardio regular rate, regular rhythm, S1 normal heart sound, S2 normal heart sound, no murmurs, no rub, no gallops and no clicks GI normal to inspection, nondistended, normoactive bowel sounds and soft to palpation GI Narrative: Very minimal diffuse tenderness Extremity no clubbing, cyanosis or edema Extremity Narrative: Pedal pulses are 2+ Neuro oriented x3 and moves all extremities Neuro Narrative: Significant generalized weakness noted Speech: speech normal Psych Psych Narrative: Affect is somewhat flat, eye contact is good, patient interacts appropriately Assessment & Plan Assessment/Plan (1) Sepsis: QUALIFIERS: Sepsis type: sepsis due to unspecified organism Sepsis acute organ dysfunction status: with acute organ dysfunction Severe sepsis acute organ dysfunction type: acute renal failure Acute renal failure type: unspecified Severe sepsis shock status: without septic shock Qualified Code(s): A41.9 - Sepsis, unspecified organism; R65.20 - Severe sepsis without septic shock; N17.9 - Acute kidney failure, unspecified (2) Colitis: (3) Glioblastoma multiforme: (4) JAMIE (acute kidney injury): (5) UTI (urinary tract infection): (6) Hypophosphatemia: (7) Elevated troponin I level: (8) GI bleed: (9) Toxic metabolic encephalopathy: PLAN: Plan Colitis/diarrhea -Highly suspect related to her chemo drug-->temozolomide -CMV titers/stool sample pending -Stools are becoming softly formed -C. difficile and enteric panel are negative -Hemoccult is positive -Fecal lactoferrin is positive -Budesonide initiated by GI -Plan is for colonoscopy versus sigmoidoscopy on 09/01/2022--> prep ordered and patient n.p.o. after midnight Sepsis -Patient met sepsis criteria with hypotension, JAMIE, elevated lactate, and worsening thrombocytopenia less than 100,000. -Presentation was more related to dehydration than actual sepsis however she does have a urinary tract infection so sepsis is unable to be ruled out as the etiology -Sepsis is resolved -Continue antibiotics as ordered with ceftriaxone -Current urine culture is showing a gram-negative bonny -Blood cultures with no growth at 24 hours E. coli UTI -Continue ceftriaxone day 3 Toxic/metabolic encephalopathy -Resolved -Suspect related to UTI and severe dehydration on presentation JAMIE -Resolved -Baseline serum creatinine is between 0.8 and 1 -0.69 today -Serum creatinine admission was 3.14 -Continue regular diet -Repeat BMP in a.m. Hypokalemia -P.o. potassium replacement ordered with 40 mill equivalents -Repeat lab in a.m. Hypophosphatemia -21 mmol of Phos given -Repeat a.m. Phos Elevated troponin -Suspect demand ischemia related to hypotension and dehydration -Echocardiogram is unremarkable GI bleeding -Likely related to above colitis -Hemoglobin has slowly trended down some but remains above 7 -Repeat CBC in a.m. -Transfuse for less than 7 -Gastroenterology is following and planning for possible colonoscopy versus sigmoidoscopy on Thursday -Budesonide initiated Hypophosphatemia -Phos replacement -Repeat lab in a.m. Glioblastoma multiforme -Diagnosed in November 2021 -Craniotomy December 2021 -Completed brain radiation -Currently on temozolomide -Follows with Dr. Mansfield -Continue acyclovir Hypertension -Patient was hypotensive on presentation -Blood pressure is improving and trending up -Continue to hold losartan -Continue to hold hydrochlorothiazide Seizures -Related to above -Continue home Keppra DVT prophylaxis -SCDs -Chemoprophylaxis on hold due to GI bleeding CODE STATUS -Full code Charges/Coding Visit Charges Inpatient E&M: 39853 Subs Hosp L2
[2022-08-31 14:32] VITALS: BP 124/63; PULSE 67; RESP 18; TEMP 36.8; O2SAT 96
[2022-08-31] MEDS: Bisacodyl 5 MG Tablet 20 MG PO (14:33)
[2022-08-31 14:45] VITALS: BP 127/63; PULSE 67; RESP 18; TEMP 36.8; O2SAT 95
[2022-08-31] MEDS: Polyethylene Glycol 3350 BOWEL PREP PO (16:01)
[2022-08-31 20:37] VITALS: BP 139/67; PULSE 60; RESP 16; TEMP 36.6; O2SAT 97
[2022-08-31] MEDS: Nystatin Powder 15gm Bottle 1 APPLIC TOPICAL (20:55)
[2022-09-01] VITALS (8 sets, daily range): BP systolic 78–152; BP diastolic 53–75; PULSE 54–69; RESP 16; TEMP 36.2–36.7; O2SAT 92–98; BMI 25.8
--- NOTE | 2022-09-01 | COLBX_PTH ---
PATIENT: WALTER MANCIA LOC: MS3 U#:[id number] AGE/SX: 76/F ROOM: [facility] [place] RE08/29/[address]: Dr. Kiko Yoon DO : 1945 BED: 1 DIS: 09/02/2022 SPEC #: [id number] RECD: 09/01/22 18:09 STATUS: MATTHIAS OLIVER #: [id number] MICHELLE: 09/01/22 00:[address]: Emil England DEPT: SURGICAL PATHOLOGY RECD BY: Joe Ledbetter ENTERED: 09/02/22 08:43 SP TYPE: COLON BX OTHR DR: DO Dr. Tony Fletcher MD Dr. Kathryn Lee, DO Dr. Liza D Talampas, MD Dr. Rahsaan Friend, DO Tissues: Sigmoid colon biopsy Procedures: Surgery Specimen Level IV Comments: @ Ordering doctor for IVIS edited from to @ by STEPHAN at 09/10/22 0951 @ Submitting doctor edited from to @ by STEPHAN at 09/10/22 0951 HEADER OPERATION: Colonoscopy with biopsies PRE-OP DIAGNOSIS: Lower GI bleed TISSUE SUBMITTED: Sigmoid colon MICROSCOPIC DIAGNOSIS Sigmoid colon, biopsy: Ulceration with granulation. Acute and chronic inflammation and fibrinopurulent material. AM:am 09/03/22 MICROSCOPIC DESCRIPTION Slides are reviewed. GROSS DESCRIPTION Received is one container labeled with the patient name and designated sigmoid colon. The specimen consists of multiple irregular fragments of light regalado soft tissue that in aggregate measure 1.5 x 0.3 x 0.1 cm. The specimen is totally submitted in one cassette. / SJ: 09/02/22 TC:2 CPT:10127
[2022-09-01 04:33] LABS: Absolute Lymphocyte Count 0.35 X10^3/uL (0.83-4.51); Absolute Neutrophil Count 2.6 X10^3/uL (2.0-7.7); Basophil# 0.02 X10^3/uL; Basophil% 0.5 % (0-1); Eosinophil# 0.08 X10^3/uL; Eosinophils% 2.1 % (0-5); Hematocrit 28.3 % (37-47); Hemoglobin 9.5 g/dL (12.0-15.0); Lymphocyte # 0.35 X10^3/ul (0.83-4.51); Mean Corp Hgb Conc 33.6 g/dL (32-36); Mean Corpuscular Hgb 30.9 pg (27.0-32.0); Mean Corpuscular Volume 92.2 fL (81-99); Mean Platelet Vol. 9.8 fl (6.2-12.0); Monocyte# 0.81 X10^3/uL; Monocyte% 20.9 % (0-10); NRBC Flagged by Analyzer 0 % (0-5); Neutrophil # 2.59 X10^3/uL (2.7-7.7); POSITIVE COUNT YES; POSITIVE DIFFERENTIAL YES; POSITIVE MORPHOLOGY YES; Platelet Count 77 K/mm3 (150-450); RBC Distribution Width CV 17.2 % (11.6-14.6); RBC Distribution Width SD 57.9 fl (35.1-43.9); Red Blood Count 3.07 M/mm3 (4.2-5.4); White Blood Count 3.9 K/mm3 (4.4-11.0)
[2022-09-01 04:40] LABS: Differential Indicated SCAN CRITERIA MET
[2022-09-01 04:58] LABS: Anion Gap 5 (5-15); BUN 19 mg/dL (7-18); Calcium,Total 7.8 mg/dL (8.5-10.1); Chloride 112 mmol/L (98-107); Creatinine, Serum 0.56 mg/dL (0.55-1.02); EST Glomerular Filtration Rate 112 mL/min (>60); Est Glom Filt Rate - Afr Amer 136 mL/min (>60); Estimated Creatinine Clearance 38.44 ml/min; Glucose 100 mg/dL (74-106); Phosphorus 2.7 mg/dL (2.5-4.9); Sodium Level 141 mmol/L (136-145)
[2022-09-01 05:51] LABS: Anisocytosis 1+; Platelet Estimate MOD DEC (ADEQ)
--- NOTE | 2022-09-01 07:32 | PN.HOSP_ITS ---
Reason for Visit Reason for Visit: Diagnoses Sepsis, unspecified organism (08/29/22) Malignant neoplasm of brain, unspecified (08/29/22) Other disorders of phosphorus metabolism (08/29/22) Other toxic encephalopathy (08/29/22) Encephalopathy, unspecified (08/29/22) Noninfective gastroenteritis and colitis, unspecified (08/29/22) Gastrointestinal hemorrhage, unspecified (08/29/22) Acute kidney failure, unspecified (08/29/22) Urinary tract infection, site not specified (08/29/22) Other shock (08/29/22) Severe sepsis without septic shock (08/29/22) Other specified abnormalities of plasma proteins (08/29/22) Subjective Subjective No new events. Objective Data Objective Data Vital Signs: Vital Signs Temp Pulse Resp BP Pulse Ox O2 Del Method 36.7 C 60 16 112/58 L 94 Room Air 09/01/22 05:50 09/01/22 05:50 09/01/22 05:50 09/01/22 05:50 09/01/22 05:50 09/01/22 05:50 Oxygen Delivery Method Room Air Weight: 63.7 kg Body Mass Index (BMI) 25.8 Intake & Output: Intake and Output for Last 24 Hours 08/30/22 08/31/22 09/01/22 23:59 23:59 23:59 Intake Total 3507 / 3507 1683.25 / 1683.25 Output Total 575 / 575 2600 / 2600 Balance 2932 / 2932 -916.75 / -916.75 Lab / Micro Data 09/01/22 03:55 09/01/22 03:55 Labs: Laboratory Results - last 24 hr 08/31/22 05:20: WBC 4.2 L, RBC 2.97 L, Hgb 9.2 L, Hct 27.2 L, MCV 91.6, MCH 31.0, MCHC 33.8, RDW Std Deviation 60.0 H, RDW Coeff of Eboni 17.9 H, Plt Count 79 L, MPV 10.2, Immature Gran % (Auto) 0.200, Neut % (Auto) 81.5 H, Lymph % (Auto) 5.5 L, [place] % (Auto) 11.6 H, Eos % (Auto) 0.7, Baso % (Auto) 0.5, Absolute Neuts (auto) 3.4, Absolute Lymphs (auto) 0.23 L, Nucleated RBC % 0, Diff Path Review June jose luis, Platelet Estimate SLT DEC, Sodium 141, Potassium 3.1 L, Chloride 114 H , Carbon Dioxide 23.0, Anion Gap 4 L, BUN 29 H, Creatinine 0.69, Estim Creat Clear Calc 38.44, Est GFR (MDRD) Af Amer 107, Est GFR (MDRD) Non-Af 88, BUN/Creatinine Ratio 42.1 H, Glucose 94, Calcium 8.3 L, Phosphorus 2.4 L 09/01/22 03:55: WBC 3.9 L, RBC 3.07 L, Hgb 9.5 L, Hct 28.3 L, MCV 92.2, MCH 30.9, MCHC 33.6, RDW Std Deviation 57.9 H, RDW Coeff of Eboni 17.2 H, Plt Count 77 L, MPV 9.8, Immature Gran % (Auto) 0.500, Neut % (Auto) 67.0, Lymph % (Auto) 9.0 L, [place] % (Auto) 20.9 H, Eos % (Auto) 2.1, Baso % (Auto) 0.5, Absolute Neuts (auto) 2.6, Absolute Lymphs (auto) 0.35 L, Nucleated RBC % 0, Diff Path Review June foll, Platelet Estimate MOD DEC, Anisocytosis 1+, Sodium 141, Potassium 3.0 L, Chloride 112 H, Carbon Dioxide 24.0, Anion Gap 5, BUN 19 H, Creatinine 0.56, Estim Creat Clear Calc 38.44, Est GFR (MDRD) Af Amer 136, Est GFR (MDRD) Non-Af 112, BUN/Creatinine Ratio 34.0 H, Glucose 100, Calcium 7.8 L, Phosphorus 2.7 Micro: Microbiology 08/29/22 00:05 Urine, Catheterized Urine Culture - Final Escherichia coli 08/28/22 23:45 Blood Culture (Wb) - Anticubital Left Blood Culture - Preliminary No growth in 48 hours. 08/28/22 23:54 Blood Culture (Wb) - Left Forearm Blood Culture - Preliminary No growth in 48 hours. 08/29/22 14:30 Stool Enteric Bacteriology - Final 08/29/22 14:30 Stool C. difficile DNA Amplification - Final 08/29/22 00:05 Stool Stool Occult Blood (VENITA) - Final Occult Blood Positive Physical Exam Const alert and no apparent distress HEENT head/scalp atraumatic and moist oral mucous membranes Eyes PERRL and EOMs intact bilaterally Neck no lymphadenopathy Resp normal respiratory effort, no retractions, no use of accessory muscles and clear to auscultation bilaterally Cardio regular rate, regular rhythm, S1 normal heart sound and S2 normal heart sound GI normal to inspection, nondistended, normoactive bowel sounds, soft to palpation and non-tender Assessment & Plan Assessment/Plan (1) Sepsis: QUALIFIERS: Acute renal failure type: unspecified Sepsis acute organ dysfunction status: with acute organ dysfunction Sepsis type: sepsis due to unspecified organism Severe sepsis acute organ dysfunction type: acute renal failure Severe sepsis shock status: without septic shock Qualified Code(s): A41.9 - Sepsis, unspecified organism; R65.20 - Severe sepsis without septic shock; N17.9 - Acute kidney failure, unspecified PLAN: POA: Patient met sepsis criteria with hypotension, JAMIE, elevated lactate, and worsening thrombocytopenia less than 100,000. Now resolved 2/2 UTI and colitis On CTX (2) Colitis: PLAN: Noted on CT monitor Heme positive stools Highly suspect related to her chemo drug-->temozolomide CMV titers/stool sample pending Stools are becoming softly formed C. difficile and enteric panel are negative Fecal lactoferrin is positive Budesonide initiated by GI Colonoscopy versus sigmoidoscopy on 09/01/2022--> prep ordered and patient n.p.o. after midnight (3) UTI (urinary tract infection): QUALIFIERS: Hematuria presence: without hematuria Urinary tract infection type: acute cystitis Qualified Code(s): N30.00 - Acute cystitis without hematuria PLAN: UCx positive for E. coli. Resistant to amp and Unasyn on CTX (4) JAMIE (acute kidney injury): PLAN: Resolved w IVF (5) Hypophosphatemia: PLAN: Resolved Received 21 mmol of Phos given (6) Elevated troponin I level: PLAN: Suspect demand ischemia related to hypotension and dehydration Echocardiogram is unremarkable, EF of 55-60% Not candidate for aggressive intervention give GBM (7) Toxic metabolic encephalopathy: PLAN: Resolved Suspect related to UTI and severe dehydration on presentation (8) Hypokalemia: PLAN: Replace Mag was 1.9 on 7/8 PLAN: Plan Chronic conditions: * Glioblastoma multiforme-Diagnosed in November 2021-Craniotomy December 2021- Completed brain radiation-Currently on temozolomide-Follows with Dr. Mansfield-Continue acyclovir * Hypertension-Patient was hypotensive on presentation-Blood pressure is improving and trending up-Continue to hold losartan -Continue to hold hydrochlorothiazide * Seizures-Related to above-Continue home Keppra DVT [id number] on hold due to GI bleeding CODE STATUS -Full code Charges/Coding Visit Charges Inpatient E&M: 70660 Subs Hosp L2
--- NOTE | 2022-09-01 09:36 | CASEMGMT ---
Social Work SW spoke w/therapy, they stated pt did not walk far, very weak. SW met w/pt in room to speak w/her about discharge plan. SW explained spoke w/ therapy and they said she was weak and did not walk far. SW spoke w/pt about going to a [facility] facility for rehab. Pt declined going to a [facility] facility. She states went to SNF in [place] and it was horrible. She feels she can manage at home w/the help of Jyothi, her significant other.N
--- NOTE | 2022-09-01 09:44 | CASEMGMT ---
Social Work SW met w/pt in room in regard to discharge plan, reviewed that therapy stated pt did not move well and is very weak. Pt states she will go home and her significant other Jyothi can help her. She states she has a friend coming to stay w/her next week for two weeks who can also help. Pt states she went to a SNF in [place] in the past and it was terrible, went home. SW spoke w/her about if it's realistic that Jyothi care for her, pt does think that he can. Pt open to [facility], CM notified. SW available should the plan change. SUSAN Hutchins
[2022-09-01] MEDS: Budesonide 3 MG CAPSULE.EC 9 MG PO (10:10)
[2022-09-01] MEDS: Ceftriaxone 1 GM/50 ML BAG IV (10:24)
[2022-09-01] MEDS: Potassium Chloride 10mEq/100mL 10 MEQ/100 ML IV.SOLN. 100 MEQ IV BOLUS ×4 (10:34→19:50)
[2022-09-01] MEDS: 0.9% Saline Lock 10 ML Syringe IV (10:35)
[2022-09-01] MEDS: Nystatin Powder 15gm Bottle 1 APPLIC TOPICAL ×2 (10:35→21:55)
[2022-09-01] MEDS: levETIRAcetam 500 MG Tablet PO ×2 (10:43→21:55)
[2022-09-01] MEDS: Acyclovir 200 MG Capsule 400 MG PO ×2 (10:43→21:55)
[2022-09-01 13:38] LABS: Pathologist Review Reviewed
[2022-09-01 13:39] LABS: Pathologist Review Reviewed
[2022-09-01 13:39] LABS: Pathologist Review Reviewed
--- NOTE | 2022-09-01 17:28 | OP.COLON_ITS ---
Patient Name: Stephie Ugarte Procedure Date: 09/01/2022 12:23 PM Date of : 1945 Age: 76 Procedure: Colonoscopy Indications: Hematochezia Providers: Emil England DO Medicines: Monitored Anesthesia Care Patient Profile: This is a 76 year old female. Refer to note in patient chart for documentation of history and physical. Last Colonoscopy: date unknown. Unable to locate last colonoscopy report. Complications: No immediate complications. Procedure: Pre-Anesthesia Assessment: - Prior to the procedure, a History and Physical was performed, and patient medications and allergies were reviewed. The patient is competent. The risks and benefits of the procedure and the sedation options and risks were discussed with the patient. All questions were answered and informed consent was obtained. Patient identification and proposed procedure were verified by the physician. Mental Status Examination: normal. Respiratory Examination: clear to auscultation. Prophylactic Antibiotics: The patient does not require prophylactic antibiotics. Prior Anticoagulants: The patient has taken no previous anticoagulant or antiplatelet agents. After reviewing the risks and benefits, the patient was deemed in satisfactory condition to undergo the procedure. The anesthesia plan was to use monitored anesthesia care (MAC). Immediately prior to administration of medications, the patient was re-assessed for adequacy to receive sedatives. The heart rate, respiratory rate, oxygen saturations, blood pressure, adequacy of pulmonary ventilation, and response to care were monitored throughout the procedure. The physical status of the patient was re-assessed after the procedure. After I obtained informed consent, the scope was passed under direct vision. Throughout the procedure, the patient's blood pressure, pulse, and oxygen saturations were monitored continuously. The pediatric colonoscope was introduced through the anus and advanced to the cecum, identified by appendiceal orifice and ileocecal valve. The colonoscopy was performed without difficulty. The patient tolerated the procedure well. The quality of the bowel preparation was poor. Scope In: 5:10:43 PM Scope Withdrawal Time 0 hours 3 minutes 28 seconds Scope Out: 5:16:29 PM Total Procedure Duration Time 0 hours 5 minutes 46 seconds Findings: The perianal and digital rectal examinations were normal. Segmental severe inflammation characterized by erythema, friability, granularity, scarring and deep ulcerations was found in the recto-sigmoid colon, in the sigmoid colon, in the descending colon and at the splenic flexure. Biopsies were taken with a cold forceps for histology. Verification of patient identification for the specimen was done. Estimated blood loss was minimal. Extensive amounts of stool was found in the entire colon, precluding visualization. Lavage of the area was performed using copious amounts of sterile water, resulting in incomplete clearance with continued poor visualization. Impression: - Preparation of the colon was poor. - Segmental severe inflammation was found in the recto-sigmoid colon, in the sigmoid colon, in the descending colon and at the splenic flexure secondary to left-sided colitis and secondary to ischemic colitis. Biopsied. - Stool in the entire examined colon. Recommendation: - Return patient to [facility] for [facility]. - Resume previous diet. - Continue present medications. - Await pathology results. - No repeat colonoscopy. Procedure Code(s): --- Professional --- 29639, Colonoscopy, flexible; with biopsy, single or multiple CPT copyright 2017 [employer]. All rights reserved. The codes documented in this report are preliminary and upon golf course superintendent review may be revised to meet current compliance requirements. Emil England DO 09/01/2022 5:28:31 PM This report has been signed electronically. Number of Addenda: 0 Note Initiated On: 09/01/2022 12:23 PM
--- NOTE | 2022-09-01 17:29 | OP.CCLET_ITS ---
09/03/2022 Ellie Daigle [address] [place] [address] Re : Colonoscopy procedure for Stephie Ugarte Dear Dr. Daigle This procedure was performed on Thursday, September 01, 2022. My impressions and recommendations are as follows: Impressions : - Preparation of the colon was poor. - Segmental severe inflammation was found in the recto-sigmoid colon, in the sigmoid colon, in the descending colon and at the splenic flexure secondary to left-sided colitis and secondary to ischemic colitis. Biopsied. - Stool in the entire examined colon. Recommendations : - [facility] to [facility]. - Resume previous diet. - Continue present medications. - Await pathology results. - No repeat colonoscopy. My findings are described in the full procedure note, which is enclosed. If I can be of further assistance, please feel free to contact me at . Sincerely, Emil England, 09/01/2022 5:28:31 PM This report has been signed electronically.
[2022-09-02 03:29] VITALS: BP 147/64; PULSE 51; RESP 16; TEMP 36.4; O2SAT 99
[2022-09-02 04:19] VITALS: BMI 25.8
[2022-09-02 06:40] LABS: Absolute Lymphocyte Count 0.37 X10^3/uL (0.83-4.51); Absolute Neutrophil Count 1.8 X10^3/uL (2.0-7.7); Basophil# 0.02 X10^3/uL; Basophil% 0.7 % (0-1); Eosinophil# 0.06 X10^3/uL; Hematocrit 27.2 % (37-47); Hemoglobin 9.5 g/dL (12.0-15.0); Lymphocyte # 0.37 X10^3/ul (0.83-4.51); Lymphocyte % 12.6 % (19-41); Mean Corp Hgb Conc 34.9 g/dL (32-36); Mean Corpuscular Hgb 31.8 pg (27.0-32.0); Mean Platelet Vol. 9.9 fl (6.2-12.0); Monocyte# 0.63 X10^3/uL; Monocyte% 21.4 % (0-10); NRBC Flagged by Analyzer 0 % (0-5); Neutrophil # 1.82 X10^3/uL (2.7-7.7); Neutrophil % 61.9 % (47-70); POSITIVE COUNT YES; POSITIVE DIFFERENTIAL YES; POSITIVE MORPHOLOGY YES; Platelet Count 76 K/mm3 (150-450); RBC Distribution Width CV 16.1 % (11.6-14.6); RBC Distribution Width SD 53.2 fl (35.1-43.9); Red Blood Count 2.99 M/mm3 (4.2-5.4); White Blood Count 2.9 K/mm3 (4.4-11.0)
[2022-09-02 06:42] LABS: Differential Indicated SCAN CRITERIA MET
[2022-09-02 06:59] LABS: Anion Gap 5 (5-15); BUN 13 mg/dL (7-18); BUN/Creat Ratio 25.5 RATIO (10-20); Chloride 113 mmol/L (98-107); Creatinine, Serum 0.51 mg/dL (0.55-1.02); EST Glomerular Filtration Rate 125 mL/min (>60); Est Glom Filt Rate - Afr Amer 151 mL/min (>60); Estimated Creatinine Clearance 38.44 ml/min; Glucose 93 mg/dL (74-106); Magnesium 1.8 mg/dL (1.6-2.6); Potassium 3.5 mmol/L (3.5-5.1); Sodium Level 142 mmol/L (136-145)
--- NOTE | 2022-09-02 07:05 | PN.HOSP_ITS ---
Reason for Visit Reason for Visit: Diagnoses Sepsis, unspecified organism (08/29/22) Malignant neoplasm of brain, unspecified (08/29/22) Other disorders of phosphorus metabolism (08/29/22) Hypokalemia (08/29/22) Other toxic encephalopathy (08/29/22) Encephalopathy, unspecified (08/29/22) Noninfective gastroenteritis and colitis, unspecified (08/29/22) Gastrointestinal hemorrhage, unspecified (08/29/22) Acute kidney failure, unspecified (08/29/22) Acute cystitis without hematuria (08/29/22) Urinary tract infection, site not specified (08/29/22) Other shock (08/29/22) Severe sepsis without septic shock (08/29/22) Other specified abnormalities of plasma proteins (08/29/22) Subjective Subjective Feels well. Wants to go home. Objective Data Objective Data Vital Signs: Vital Signs Temp Pulse Resp BP Pulse Ox O2 Del Method 36.4 C L 51 L 16 147/64 H 99 Room Air 09/02/22 03:29 09/02/22 03:29 09/02/22 03:29 09/02/22 03:29 09/02/22 03:29 09/02/22 03:29 Oxygen Delivery Method Room Air Weight: 63.7 kg Body Mass Index (BMI) 25.8 Intake & Output: Intake and Output for Last 24 Hours 08/31/22 09/01/22 09/02/22 23:59 23:59 23:59 Intake Total 1683.25 / 1683.25 1263.75 / 1263.75 100 / 100 Output Total 2600 / 2600 750 / 750 500 / 500 Balance -916.75 / -916.75 513.75 / 513.75 -400 / -400 Lab / Micro Data 09/02/22 05:45 09/02/22 05:45 Labs: Laboratory Results - last 24 hr 08/30/22 04:26: Diff Path Review Reviewed 08/31/22 05:20: Diff Path Review Reviewed 09/01/22 03:55: Diff Path Review Reviewed 09/02/22 05:45: WBC 2.9 L, RBC 2.99 L, Hgb 9.5 L, Hct 27.2 L, MCV 91.0, MCH 31.8, MCHC 34.9, RDW Std Deviation 53.2 H, RDW Coeff of Eboni 16.1 H, Plt Count 76 L, MPV 9.9, Immature Gran % (Auto) 1.400 H, Neut % (Auto) 61.9, Lymph % (Auto) 12.6 L, Dane % (Auto) 21.4 H, Eos % (Auto) 2.0, Baso % (Auto) 0.7, Absolute Neuts (auto) 1.8 L, Absolute Lymphs (auto) 0.37 L, Nucleated RBC % 0, Sodium 142, Potassium 3.5, Chloride 113 H, Carbon Dioxide 24.0, Anion Gap 5, BUN 13, Creatinine 0.51 L, Estim Creat Clear Calc 38.44, Est GFR (MDRD) Af Amer 151, Est GFR (MDRD) Non-Af 125, BUN/Creatinine Ratio 25.5 H, Glucose 93, Calcium 8.0 L, Magnesium 1.8 Micro: Microbiology 08/29/22 00:05 Urine, Catheterized Urine Culture - Final Escherichia coli 08/28/22 23:45 Blood Culture (Wb) - Anticubital Left Blood Culture - Preliminary No growth in 48 hours. 08/28/22 23:54 Blood Culture (Wb) - Left Forearm Blood Culture - Preliminary No growth in 48 hours. 08/29/22 14:30 Stool Enteric Bacteriology - Final 08/29/22 14:30 Stool C. difficile DNA Amplification - Final 08/29/22 00:05 Stool Stool Occult Blood (VENITA) - Final Occult Blood Positive Physical Exam Const alert and no apparent distress HEENT head/scalp atraumatic, moist oral mucous membranes, oropharynx normal and dentition normal Neck no lymphadenopathy and supple Resp normal respiratory effort, no retractions, no use of accessory muscles and clear to auscultation bilaterally Assessment & Plan Assessment/Plan (1) Sepsis: QUALIFIERS: Acute renal failure type: unspecified Sepsis acute organ dysfunction status: with acute organ dysfunction Sepsis type: sepsis due to unspecified organism Severe sepsis acute organ dysfunction type: acute renal failure Severe sepsis shock status: without septic shock Qualified Code(s): A41.9 - Sepsis, unspecified organism; R65.20 - Severe sepsis without septic shoc k; N17.9 - Acute kidney failure, unspecified PLAN: POA: Patient met sepsis criteria with hypotension, JAMIE, elevated lactate, and worsening thrombocytopenia less than 100,000. Now resolved 2/2 UTI and colitis On CTX (2) Colitis: PLAN: Likely due to ischemic colitis. Heme positive stools C. diff and stools studies negative. Fecal lactoferrin is positive Budesonide initiated by GI Colonoscopy 09/01/2022: poor prep. Segmental severe inflammation in recto-sig moid. 2/2 ischemic colitis. Biopsied. No plans to repeat colonoscopy at this time. --> prep ordered and patient n.p.o. after midnight Will discharge with cephalexin and metronidazole (no fqns given seizure history) (3) UTI (urinary tract infection): QUALIFIERS: Hematuria presence: without hematuria Urinary tract infection type: acute cystitis Qualified Code(s): N30.00 - Acute cystitis without hematuria PLAN: UCx positive for E. coli. Resistant to amp and Unasyn on CTX, discharge with cephalexin (4) JAMIE (acute kidney injury): PLAN: Resolved w IVF (5) Hypophosphatemia: PLAN: Resolved Received 21 mmol of Phos given (6) Elevated troponin I level: PLAN: Suspect demand ischemia related to hypotension and dehydration Echocardiogram is unremarkable, EF of 55-60% Not candidate for aggressive intervention give GBM (7) Toxic metabolic encephalopathy: PLAN: Resolved Suspect related to UTI and severe dehydration on presentation (8) Hypokalemia: PLAN: Continue to replace Mag was 1.9 on 08/30 PLAN: Plan Chronic conditions: * Glioblastoma multiforme-Diagnosed in November 2021-Craniotomy December 2021- Completed brain radiation-Currently on temozolomide-Follows with Dr. Mansfield-Continue acyclovir * Hypertension-Patient was hypotensive on presentation-Blood pressure is improving and trending up-Continue to hold losartan -Continue to hold hydrochlorothiazide * Seizures-Related to above-Continue home Keppra DVT upiprugfakq-OYLl-Kyjhfhquukwqvjzl on hold due to GI bleeding CODE STATUS -Full code Disposition: home with [facility]. Pt states that she has a good support network in place and that she has been in conversation with friends and family who will be able to help out. Pt asked about driving. She said she has been seizure-free for 6 months. I told her I would be concerned about her reaction times being delayed and encouraged her to use others to drive her.
[2022-09-02 07:14] LABS: Anisocytosis 1+; Platelet Estimate MOD DEC (ADEQ)
[2022-09-02] MEDS: Nystatin Powder 15gm Bottle 1 APPLIC TOPICAL (09:30)
[2022-09-02] MEDS: Budesonide 3 MG CAPSULE.EC 9 MG PO (09:30)
[2022-09-02] MEDS: levETIRAcetam 500 MG Tablet PO (09:30)
[2022-09-02] MEDS: Acyclovir 200 MG Capsule 400 MG PO (09:31)
[2022-09-02] MEDS: Potassium Chloride Oral Tablet 20 MEQ 40 MEQ PO (09:35)
[2022-09-02] MEDS: Ceftriaxone 1 GM/50 ML BAG IV (09:36)
[2022-09-02] MEDS: 0.9% Saline Lock 10 ML Syringe IV (09:37)
[2022-09-02 09:49] VITALS: BP 131/65; PULSE 64; RESP 18; TEMP 36.7; O2SAT 100
--- NOTE | 2022-09-02 11:58 | PCM.DC ---
Discharge Instructions Diet Discharge Diet: No restrictions Activity Discharge Activity: Return to Normal Activity and Use Walker Follow Up Care Test Results: Test results from this visit will be discussed in further detail at your follow-up appointment, if applicable. Discharge Plan Admission Admit Date/Time: 08/29/22 03:31 Primary Reason for Your Visit: urinary tract infection and colitis. Attending Provider: Kiko Yoon Primary Care Provider: Ellie Daigle Consulting Providers: Tony Dey; Emil England; Vero Akhtar Discharge Orders/Prescriptions Prescriptions: New budesonide 3 mg Capsule,Delayed,Extend.Release 9 mg PO DAILY Qty: 90 0RF cephalexin 500 mg capsule 500 mg PO Q12H Qty: 10 0RF metronidazole 500 mg tablet 500 mg PO Q8H Qty: 15 0RF Continued acetaminophen 500 MG tablet 1,000 mg PO Q6H PRN PRN (Reason: Mild Pain (-05/02)) 0RF ondansetron [Zofran ODT] 8 MG tablet,disintegrating 8 mg PO Q8H PRN PRN (Reason: Nausea) Qty: 30 0RF acyclovir 400 mg tablet 400 mg PO BID Patient Comments: TAKE 1 TABLET BY MOUTH TWICE DAILY BEGINNING THE FIRST DAY OF RADIATION TREATMENT sulfamethoxazole-trimethoprim 800-160 mg tablet 1 tab PO DAILY Patient Comments: TAKE ONE TABLET BY MOUTH EVERY THURSDAY, THURSDAY AND THURSDAY DURING RADIATON. temozolomide 140 mg capsule 250 mg PO DAILY Patient Comments: TAKE 1 CAPSULE BY MOUTH ONCE DAILY ON EMPTY STOMACH BEGINNING THE FIRST DAY OF RADIATION levetiracetam 500 mg tablet 500 mg PO BID Discontinued losartan 100 mg tablet 50 mg PO DAILY Patient Comments: TAKE 1 TABLET BY MOUTH ONCE DAILY hydrochlorothiazide 12.5 mg tablet 12.5 mg PO DAILY Patient Comments: TAKE 1 TABLET BY MOUTH ONCE DAILY potassium chloride 20 mEq tablet,ER particles/crystals 20 meq PO DAILY diazepam 5 mg tablet 5 mg PO PRN (Reason: anxiety) Patient Comments: TAKE 1 TABLET BY MOUTH EVERY DAY AT BEDTIME FOR UP TO 30 DAYS Referrals / Follow Up: Ellie Daigle MD [Primary Care Provider] - Within 2 Weeks Rosalio Mansfield DO [Med Staff - Active Staff] - Within 2 Weeks Emil England DO [Med Staff - Active Staff] - Within 1 Month Disposition Disposition (needs filled in before D/C Order can be placed): Home Health Service
--- NOTE | 2022-09-02 12:07 | PCM.DC.SUM ---
Providers Date of Admission: 08/29/22 Primary Care Physician: Dr. Ellie Daigle MD Consultations 08/29/22 05:38 Consult: Gastroenterology Routine Consulting Provider: Emil England Reason for Consult: abla EMERGENT Consult: No MD Notified: Yes Date Notified: 08/29/22 Time Notified: 03:44 Method of Notification: ED Physician Initiated Reason For Visit: HEMORRHAGIC SHOCK Diagnosis Discharge Diagnosis (1) Sepsis: Status: Acute Code(s): A41.9 - Sepsis, unspecified organism Qualifiers: Sepsis type: sepsis due to unspecified organism Sepsis acute organ dysfunction status: with acute organ dysfunction Severe sepsis acute organ dysfunction type: acute renal failure Acute renal failure type: unspecified Severe sepsis shock status: without septic shock Qualified Code(s): A41.9 - Sepsis, unspecified organism; R65.20 - Severe sepsis without septic shock; N17.9 - Acute kidney failure, unspecified Plan: POA: Patient met sepsis criteria with hypotension, JAMIE, elevated lactate, and worsening thrombocytopenia less than 100,000. Now resolved 2/2 UTI and colitis On CTX (2) Colitis: Status: Acute Code(s): K52.9 - Noninfective gastroenteritis and colitis, unspecified Plan: Likely due to ischemic colitis. Heme positive stools C. diff and stools studies negative. Fecal lactoferrin is positive Budesonide initiated by GI Colonoscopy 09/01/2022: poor prep. Segmental severe inflammation in recto-sigmoid. 2/2 ischemic colitis. Biopsied. No plans to repeat colonoscopy at this time. --> prep ordered and patient n.p.o. after midnight Will discharge with cephalexin and metronidazole (no fqns given seizure history) (3) UTI (urinary tract infection): Status: Acute Code(s): N39.0 - Urinary tract infection, site not specified Qualifiers: Urinary tract infection type: acute cystitis Hematuria presence: without hematuria Qualified Code(s): N30.00 - Acute cystitis without hematuria Plan: UCx positive for E. coli. Resistant to amp and Unasyn on CTX, discharge with cephalexin (4) JAMIE (acute kidney injury): Status: Acute Code(s): N17.9 - Acute kidney failure, unspecified Plan: Resolved w IVF (5) Hypophosphatemia: Status: Acute Code(s): E83.39 - Other disorders of phosphorus metabolism Plan: Resolved Received 21 mmol of Phos given (6) Elevated troponin I level: Status: Acute Code(s): R77.8 - Other specified abnormalities of plasma proteins Plan: Suspect demand ischemia related to hypotension and dehydration Echocardiogram is unremarkable, EF of 55-60% Not candidate for aggressive intervention give GBM (7) Toxic metabolic encephalopathy: Status: Acute Code(s): G92.8 - Other toxic encephalopathy Plan: Resolved Suspect related to UTI and severe dehydration on presentation (8) Hypokalemia: Status: Inactive Code(s): E87.6 - Hypokalemia Plan: Continue to replace Mag was 1.9 on 08/30 Plan Chronic conditions: Glioblastoma multiforme-Diagnosed in November 2021-Craniotomy December 2021-Completed brain radiation-Currently on temozolomide-Follows with Dr. Mansfield-Continue acyclovir Hypertension-Patient was hypotensive on presentation-Blood pressure is improving and trending up-Continue to hold losartan -Continue to hold hydrochlorothiazide Seizures-Related to above-Continue home Keppra CODE STATUS -Full code Disposition: home with [facility]. Pt states that she has a good support network in place and that she has been in conversation with friends and family who will be able to help out. Pt asked about driving. She said she has been seizure-free for 6 months. I told her I would be concerned about her reaction times being delayed and encouraged her to use others to drive her. Medications at Discharge Home Medications acetaminophen 500 mg tablet 1,000 mg (2 x 500 mg) PO Q6H PRN PRN Mild Pain (1-3/10) 01/22/18 ondansetron 8 mg disintegrating tablet (Zofran ODT) 8 mg PO Q8H PRN PRN Nausea #30 tabs 01/22/18 acyclovir 400 mg tablet 400 mg PO BID for radiation 03/14/22 sulfamethoxazole 800 mg-trimethoprim 160 mg tablet 1 tab PO DAILY infection 03/14/22 temozolomide 140 mg capsule 250 mg PO DAILY chemo 03/14/22 levetiracetam 500 mg tablet 500 mg PO BID 08/29/22 budesonide 3 mg capsule,delayed,extended release 9 mg (3 x 3 mg) PO DAILY #90 ea 09/02/22 cephalexin 500 mg capsule 500 mg PO Q12H #10 caps 09/02/22 metronidazole 500 mg tablet 500 mg PO Q8H #15 tabs 09/02/22 Hospital Course Operations None Procedures None Summary of Care Provided Minutes Spent on Discharge: 40 Weight / BMI Weight Weight: 63.7 kg Body Mass Index (BMI) 25.8 ABG / Lab / Microbiology Data 09/02/22 05:45 09/02/22 05:45 Laboratory: Laboratory Results - last 24 hr 08/30/22 04:26: Diff Path Review Reviewed 08/31/22 05:20: Diff Path Review Reviewed 09/01/22 03:55: Diff Path Review Reviewed 09/02/22 05:45: WBC 2.9 L, RBC 2.99 L, Hgb 9.5 L, Hct 27.2 L, MCV 91.0, MCH 31.8, MCHC 34.9, RDW Std Deviation 53.2 H, RDW Coeff of Eboni 16.1 H, Plt Count 76 L, MPV 9.9, Immature Gran % (Auto) 1.400 H, Neut % (Auto) 61.9, Lymph % (Auto) 12.6 L, Granite % (Auto) 21.4 H, Eos % (Auto) 2.0, Baso % (Auto) 0.7, Absolute Neuts (auto) 1.8 L, Absolute Lymphs (auto) 0.37 L, Nucleated RBC % 0, Diff Path Review May foll, Platelet Estimate MOD DEC, Anisocytosis 1+, Sodium 142, Potassium 3.5, Chloride 113 H, Carbon Dioxide 24.0, Anion Gap 5, BUN 13, Creatinine 0.51 L, Estim Creat Clear Calc 38.44, Est GFR (MDRD) Af Amer 151, Est GFR (MDRD) Non-Af 125, BUN/Creatinine Ratio 25.5 H, Glucose 93, Calcium 8.0 L, Magnesium 1.8 Microbiology: Microbiology 08/29/22 00:05 Urine, Catheterized Urine Culture - Final Escherichia coli 08/28/22 23:45 Blood Culture (Wb) - Anticubital Left Blood Culture - Preliminary No growth in 48 hours. 08/28/22 23:54 Blood Culture (Wb) - Left Forearm Blood Culture - Preliminary No growth in 48 hours. 08/29/22 14:30 Stool Enteric Bacteriology - Final 08/29/22 14:30 Stool C. difficile DNA Amplification - Final 08/29/22 00:05 Stool Stool Occult Blood (VENITA) - Final Occult Blood Positive D/C Instructions Discharge Diet: No restrictions Meaningful Use Info Meaningful Use Diagnoses (Choose all that apply): None applicable Discharge Plan Admission Admit Date/Time: 08/29/22 03:31 Primary Reason for Your Visit: urinary tract infection and colitis. Attending Provider: Kiko Yoon Primary Care Provider: Ellie Daigle Consulting Providers: Tony Dey; Emil England; Vero Akhtar Discharge Orders/Prescriptions Prescriptions: New budesonide 3 mg Capsule,Delayed,Extend.Release 9 mg PO DAILY Qty: 90 0RF cephalexin 500 mg capsule 500 mg PO Q12H Qty: 10 0RF metronidazole 500 mg tablet 500 mg PO Q8H Qty: 15 0RF Continued acetaminophen 500 MG tablet 1,000 mg PO Q6H PRN PRN (Reason: Mild Pain (-05/02)) 0RF ondansetron [Zofran ODT] 8 MG tablet,disintegrating 8 mg PO Q8H PRN PRN (Reason: Nausea) Qty: 30 0RF acyclovir 400 mg tablet 400 mg PO BID Patient Comments: TAKE 1 TABLET BY MOUTH TWICE DAILY BEGINNING THE FIRST DAY OF RADIATION TREATMENT sulfamethoxazole-trimethoprim 800-160 mg tablet 1 tab PO DAILY Patient Comments: TAKE ONE TABLET BY MOUTH EVERY THURSDAY, THURSDAY AND THURSDAY DURING RADIATON. temozolomide 140 mg capsule 250 mg PO DAILY Patient Comments: TAKE 1 CAPSULE BY MOUTH ONCE DAILY ON EMPTY STOMACH BEGINNING THE FIRST DAY OF RADIATION levetiracetam 500 mg tablet 500 mg PO BID Discontinued losartan 100 mg tablet 50 mg PO DAILY Patient Comments: TAKE 1 TABLET BY MOUTH ONCE DAILY hydrochlorothiazide 12.5 mg tablet 12.5 mg PO DAILY Patient Comments: TAKE 1 TABLET BY MOUTH ONCE DAILY potassium chloride 20 mEq tablet,ER particles/crystals 20 meq PO DAILY diazepam 5 mg tablet 5 mg PO PRN (Reason: anxiety) Patient Comments: TAKE 1 TABLET BY MOUTH EVERY DAY AT BEDTIME FOR UP TO 30 DAYS Referrals / Follow Up: Ellie Daigle MD [Primary Care Provider] - Within 2 Weeks Rosalio Mansfield DO [Med Staff - Active Staff] - Within 2 Weeks Emil England DO [Med Staff - Active Staff] - Within 1 Month Disposition Disposition (needs filled in before D/C Order can be placed): Home Health Service Charges/Coding Visit Charges Inpatient E&M: 54721 Disch Hosp >30min
--- NOTE | 2022-09-02 15:00 | CASEMGMT ---
Addendum entered by Becky Rios 09/03/22 18:51: addendum for 09/02/22 @ 3PM: Therapy worked w/pt again prior to being discharged. Per LUIS Gupta, pt is safe to discharge home. Original Note: REJI SAMUELS NOTE: Pt being discharged. Therapy notes from yesterday reviewed. Pt required 2 assist and SNF recommended. Discussed therapy's recommendations for SNF. Pt states she is not going to a SNF, that she is going home. She states she feels safe w/discharging home and her sig other, Jyothi, who she lives with can assist her. Discussed HHC and pt states she would like HHC, but would like to use the same HHC she had in past, but she does not remember the name of the agency. She states a lady who lives nearby is a therapist who worked for that agency and she would like to have her come again, if able. Call to Jyothi and to pt's dtr, Jeimy, per pt's request to see if they could locate the name of that [facility] agency. Neither of them were able to locate the info. Pt states would still like to try and find the info once she returns home. Jeimy and pt made aware pt can d/c today and CM or d/c kit planner can assist her w/getting HHC set up this week. They voice agreeable to this. Jeimy states she will contact REJI SAMUELS tomorrow to provide the [facility] info if she is able to locate it or if not, they will choose another [facility] agency to have referral sent to. They were also provided with list of?[facility] providers including quality and resource use data and consistent with the patient's preferred geographic region, medical needs, and insurance network to have to refer to if they are unable to locate prior [facility] agency pt used in the past. ? Pt any dtr deny having other d/c planning needs. Erin LOPEZ RN, CM ? . ?
--- NOTE | 2022-09-02 15:13 | PHA.DC_ITS ---
Pharmacy [place] Med Reconciliation Pharmacy Service has performed discharge medication reconciliation for this patient. Medications reviewed by Saeed Dominguez PharmD Candidate The patient's discharge medication list was reviewed for discrepancies and discrepancies were resolved. Medications at Discharge Home Medications acetaminophen 500 mg tablet 1,000 mg (2 x 500 mg) PO Q6H PRN PRN Mild Pain (1- 310) 01/22/18 ondansetron 8 mg disintegrating tablet (Zofran ODT) 8 mg PO Q8H PRN PRN Nausea #30 tabs 01/22/18 acyclovir 400 mg tablet 400 mg PO BID for radiation 03/14/22 sulfamethoxazole 800 mg-trimethoprim 160 mg tablet 1 tab PO DAILY infection 03/14/22 temozolomide 140 mg capsule 250 mg PO DAILY chemo 03/14/22 levetiracetam 500 mg tablet 500 mg PO BID 08/29/22 budesonide 3 mg capsule,delayed,extended release 9 mg (3 x 3 mg) PO DAILY #90 ea 09/02/22 cephalexin 500 mg capsule 500 mg PO Q12H #10 caps 09/02/22 metronidazole 500 mg tablet 500 mg PO Q8H #15 tabs 09/02/22
[2022-09-02 15:26] VITALS: BP 126/59; PULSE 68; RESP 17; TEMP 36.5; O2SAT 98
--- NOTE | 2022-09-02 16:17 | CASEMGMT ---
Discharge Planning HH list created and given to RN ARVIND. Luisa Nick, Discharge Planning Asst.
--- NOTE | 2022-09-02 19:05 | PN.GI_ITS ---
Subjective Subjective Patient is doing well and is not having any abdominal pain or signs or symptoms of lower GI bleeding at this time. She underwent colonoscopy and was discovered to have ischemic colitis with possible chemotherapy induced injury to the liver. She was started on budesonide therapy. Objective Data Objective Data Vital Signs: Vital Signs Temp Pulse Resp BP Pulse Ox O2 Del Method 97.7 F L 68 17 126/59 H 98 Room Air 09/02/22 15:26 09/02/22 15:26 09/02/22 15:26 09/02/22 15:26 09/02/22 15:26 09/02/22 15:26 Oxygen Delivery Method Room Air Weight: 140 lb 6.951 oz Body Mass Index (BMI) 25.8 Intake & Output: Intake and Output for Last 24 Hours 08/31/22 09/01/22 09/02/22 23:59 23:59 23:59 Intake Total 1683.25 / 1683.25 1263.75 / 1263.75 760 / 760 Output Total 2600 / 2600 750 / 750 900 / 900 Balance -916.75 / -916.75 513.75 / 513.75 -140 / -140 Lab / Micro Data 09/02/22 05:45 09/02/22 05:45 Labs: Laboratory Results - last 24 hr 09/02/22 05:45: WBC 2.9 L, RBC 2.99 L, Hgb 9.5 L, Hct 27.2 L, MCV 91.0, MCH 31.8, MCHC 34.9, RDW Std Deviation 53.2 H, RDW Coeff of Eboni 16.1 H, Plt Count 76 L, MPV 9.9, Immature Gran % (Auto) 1.400 H, Neut % (Auto) 61.9, Lymph % (Auto) 12.6 L, [place] % (Auto) 21.4 H, Eos % (Auto) 2.0, Baso % (Auto) 0.7, Absolute Neuts (auto) 1.8 L, Absolute Lymphs (auto) 0.37 L, Nucleated RBC % 0, Diff Path Review May , Platelet Estimate MOD DEC, Anisocytosis 1+, Sodium 142, Potassium 3.5, Chloride 113 H, Carbon Dioxide 24.0, Anion Gap 5, BUN 13, Creatinine 0.51 L, Estim Creat Clear Calc 38.44, Est GFR (MDRD) Af Amer 151, Est GFR (MDRD) Non-Af 125, BUN/Creatinine Ratio 25.5 H, Glucose 93, Calcium 8.0 L, Magnesium 1.8 Micro: Microbiology 08/29/22 00:05 Urine, Catheterized Urine Culture - Final Escherichia coli 08/28/22 23:45 Blood Culture (Wb) - Anticubital Left Blood Culture - Preliminary No growth in 48 hours. 08/28/22 23:54 Blood Culture (Wb) - Left Forearm Blood Culture - Preliminary No growth in 48 hours. 08/29/22 14:30 Stool Enteric Bacteriology - Final 08/29/22 14:30 Stool C. difficile DNA Amplification - Final 08/29/22 00:05 Stool Stool Occult Blood (VENITA) - Final Occult Blood Positive Physical Exam Const alert and no apparent distress HEENT head/scalp atraumatic, moist oral mucous membranes, oropharynx normal and dentition normal Neck no lymphadenopathy and supple Resp normal respiratory effort, no retractions, no use of accessory muscles and clear to auscultation bilaterally Assessment & Plan Assessment/Plan (1) Sepsis: QUALIFIERS: Sepsis type: sepsis due to unspecified organism Sepsis acute organ dysfunction status: with acute organ dysfunction Severe sepsis acute organ dysfunction type: acute renal failure Acute renal failure type: unspecified Severe sepsis shock status: without septic shock Qualified Code(s): A41.9 - Sepsis, unspecified organism; R65.20 - Severe sepsis without septic shock; N17.9 - Acute kidney failure, unspecified (2) Colitis: PLAN: Likely due to ischemic colitis. Heme positive stools C. diff and stools studies negative. Fecal lactoferrin is positive Budesonide initiated by GI Colonoscopy 09/01/2022: poor prep. Segmental severe inflammation in recto- sigmoid. 2/2 ischemic colitis. Biopsied. No plans to repeat colonoscopy at this time. --> prep ordered and patient n.p.o. after midnight discharge with cephalexin and metronidazole (3) UTI (urinary tract infection): QUALIFIERS: Urinary tract infection type: acute cystitis Hematuria presence: without hematuria Qualified Code(s): N30.00 - Acute cystitis without hematuria (4) JAMIE (acute kidney injury): PLAN: Resolved w IVF (5) Hypophosphatemia: PLAN: Resolved Received 21 mmol of Phos given (6) Elevated troponin I level: (7) Toxic metabolic encephalopathy: PLAN: Resolved Suspect related to UTI and severe dehydration on presentation (8) Hypokalemia: Charges/Coding Visit Charges Inpatient E&M: 62389 Subs Hosp L3
[2022-09-03 10:21] LABS: Pathologist Review Reviewed
--- NOTE | 2022-09-03 14:07 | CASEMGMT ---
Addendum entered by Becky Rios 09/03/22 14:13: this entry occurred at 0850 today. Original Note: REJI SAMUELS NOTE: Call received from pt's dtr, stating she found the info from the [facility] agency pt had previously that pt was hoping to have again. She provided the following info: [facility]. PH: [phone]. E-mail: [email or web address] PT, Trudy Armendariz, who was w/[facility] (who lives near pt) PH: [phone]. Dtr made aware the d/c corporate event planner would look into this [facility] agency and will make referral if they are still open and accepting new pts. Luisa to call her back to f/u w/her. She voices appreciation. Luisa, d/c corporate event planner, made aware of above. Erin LOPEZ RN, CM
--- NOTE | 2022-09-03 14:58 | CASEMGMT ---
Discharge Planning referral faxed to [facility]. Luisa Nick, Discharge Planning Asst.
--- NOTE | 2022-09-08 15:51 | CASEMGMT ---
Discharge Planning Patients daughter informed this gag writer that [facility] has accepted her mother and services have begun. Luisa Nick, Discharge Planning Asst.
== END 2022-09-02 16:00 | disposition home health service (06) | DRG 871 ==
LOC: ED 08-29 03:38 → ICU 08-29 04:04 → MS3 09-01 06:29 → ICU 09-02 08:04 → MS3 09-02 08:05
PROVIDERS: Internal Medicine; Internal Medicine Gastroenterology; Admitting Provider Hospitalist; Emergency Provider Student in an Organized Health Care Education/Training Program; PCP Internal Medicine
PROC: 0DJD8ZZ Inspection of Lower Intestinal Tract, Via Natural or Artificial Opening Endoscopic (ICD-10-PCS; CPT 45378; principal; 2022-09-01 16:25)
DX: A41.51 Sepsis due to Escherichia coli [E. coli] (principal); R57.8 Other shock; G92.8 Other toxic encephalopathy; K55.9 Vascular disorder of intestine, unspecified; E87.20 Acidosis, unspecified; C71.9 Malignant neoplasm of brain, unspecified; D62 Acute posthemorrhagic anemia; N17.9 Acute kidney failure, unspecified; K51.90 Ulcerative colitis, unspecified, without complications; N30.01 Acute cystitis with hematuria; E83.39 Other disorders of phosphorus metabolism; G40.909 Epilepsy, unspecified, not intractable, without status epilepticus; E87.6 Hypokalemia; I10 Essential (primary) hypertension; Z92.21 Personal history of antineoplastic chemotherapy; R77.8 Other specified abnormalities of plasma proteins; B96.20 Unspecified Escherichia coli [E. coli] as the cause of diseases classified elsewhere; Z92.3 Personal history of irradiation; Z79.2 Long term (current) use of antibiotics
CPT/HCPCS: 36415; 70450; 71045; 74176; 80048; 80053; 81001; 82274; 83605; 83735; 84100; 84484; 85025; 85610; 85730; 86645; 86850; 86900; 86901; 86920; 87040; 87077; 87086; 87088; 87186; 87493; 87506; 88305; 93005; 93306; 95819; 97162; 97166; 97530; 97535; 99285; J7030; J7040; J7050; J7120; P9016; Q9957; A4216; C8929; J2405

== ENCOUNTER → 2022-10-13 | Outpatient (CLI) | payer MEDICARE, SELFPAY ==
--- NOTE | 2022-10-13 13:00 | VDLE_ITS ---
Reason For Study: Right leg swelling RIGHT GSV is normal. CFV is compressible, spontaneous, phasic, competent and demonstrates normal augmentation. FV is compressible, spontaneous, phasic, competent and demonstrates normal augmentation. POP V is compressible, spontaneous, phasic, competent and demonstrates normal augmentation. T/P Trunk is compressible. PTV is compressible. RT PerV is compressible. Procedure This is a venous duplex using B-mode, color flow and spectral Doppler. Exam performed in department. A preliminary report was called and/or faxed to Dr. Mansfield. VL/Venous Duplex US, Unilateral Interpretation Summary There is no evidence of right lower extremity deep vein thrombosis. Right great saphenous vein appears patent and compressible segmentally. Ordering Physician: Rosalio Mansfield Referring Physician: Ellie Daigle M.D. Performed By: Renetta Good RVT
== END | disposition home or self-care (01) ==
LOC: CVS 12:59
PROVIDERS: PCP Internal Medicine; Referring Provider Internal Medicine Hematology & Oncology; Visit Provider Internal Medicine Hematology & Oncology
DX: M79.89 Other specified soft tissue disorders (principal); C71.9 Malignant neoplasm of brain, unspecified
CPT/HCPCS: 93971